=== PATIENT | female | born 1950 | race Caucasian/White ===

== ENCOUNTER 2017-03-04 14:04 | Emergency (ER) | payer MEDICARE, MEDICAID ==
[~2017-03-04] VITALS: Ht 154.9 cm; Wt 93.6 kg
[2017-03-04] MEDS ORDERED: POTA1TAB23 (14:15)
[2017-03-04] MEDS ORDERED: LORA0.5T11 (14:15)
[2017-03-04] MEDS ORDERED: DIAZ5TAB (14:15)
[2017-03-04] MEDS ORDERED: FURO40TA2 (14:15)
[2017-03-04] MEDS ORDERED: SERT-155 (14:15)
[2017-03-04] MEDS ORDERED: HUMU500S2 (14:15)
[2017-03-04] MEDS ORDERED: TRAZ1TAB14 (14:15)
[2017-03-04] MEDS ORDERED: ATOR40TA75 (14:15)
[2017-03-04] MEDS ORDERED: ROPI1TAB (14:15)
[2017-03-04] MEDS ORDERED: OMEP40CA2 (14:15)
[2017-03-04] MEDS ORDERED: SPIR25TA2 (14:15)
[2017-03-04] MEDS ORDERED: CARV25TA (14:15)
[2017-03-04] MEDS ORDERED: NORCO, ANEXSIA 5/325MG TABLET (HYDROcodone/ACETAMINOPHEN) PO ONE (14:30)
--- NOTE | 2017-03-04 16:06 | REP ---
Clinical: Trauma. Pain and swelling. Technique: AP, lateral, bilateral oblique views of the left knee. Findings: Moderate tricompartmental osteoarthritic degenerative changes are appreciated including cortical irregularity, marginal spurring and subchondral sclerosis with joint space narrowing. Lateral view demonstrates extensive prepatellar soft tissue swelling. No obvious acute fracture or dislocation. Impression: Significant prepatellar anterior soft tissue swelling. Moderate tricompartmental degenerative changes. No acute fracture or dislocation identified. Signed by Piero Mast MD 03/04/2017 03:58 P
--- NOTE | 2017-03-04 16:09 | REP ---
Clinical: Trauma. Swelling. Technique: AP, lateral, bilateral oblique views of the lumbosacral spine. Findings: Moderate to early advanced multilevel degenerative changes include anterior spurring with endplate sclerosis disc space narrowing and hypertrophic facet changes. Anterolisthesis at the L4-5 level of approximately 4 mm. No acute fracture / compression injury. Impression: Moderate to advanced multilevel degenerative changes. Anterolisthesis and L4-5. No acute fracture / compression injury. Signed by Piero Mast MD 03/04/2017 04:00 P
[2017-03-04 16:12] VITALS: BP 177/73
[2017-03-04] MEDS ORDERED: ULTR50TA8 PO (16:12)
== END 2017-03-04 16:42 | disposition home or self-care (01) ==
LOC: M ED 14:04
DX: S80.02XA Contusion of left knee, initial encounter (principal); S30.0XXA Contusion of lower back and pelvis, initial encounter; X58.XXXA Exposure to other specified factors, initial encounter; Y92.009 Unspecified place in unspecified non-institutional (private) residence as the place of occurrence of the external cause; Y93.89 Activity, other specified; Y99.8 Other external cause status; E11.9 Type 2 diabetes mellitus without complications; E66.9 Obesity, unspecified; Z88.0 Allergy status to penicillin; Z79.899 Other long term (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 therapy; Z79.4 Long term (current) use of insulin

== ENCOUNTER 2017-04-04 18:48 | Emergency (ER) | payer MEDICARE, MEDICAID ==
[~2017-04-04] VITALS: Ht 154.9 cm; Wt 93.7 kg
[~2017-04-04 18:48] MED LIST: ATOR40TA75; CARV25TA; DIAZ5TAB; FURO40TA2; HUMU500S2; LORA0.5T11; OMEP40CA2; POTA1TAB23; ROPI1TAB; SERT-155; SPIR25TA2; TRAZ1TAB14; ULTR50TA8 PO
[2017-04-04] MEDS ORDERED: KEFL500C17 PO (19:01)
[2017-04-04] MEDS ORDERED: TRAM50TA2 PO (19:01)
[2017-04-04] MEDS ORDERED: DIAZ5TAB PO (19:01)
[2017-04-04] MEDS ORDERED: NORCO, ANEXSIA 5/325MG TABLET (HYDROcodone/ACETAMINOPHEN) PO ONE (19:45)
[2017-04-04 20:34] VITALS: BP 223/84
--- NOTE | 2017-04-05 09:38 | REP ---
LEFT SHOULDER, COMPLETE: 04/04/2017. Comparison: PA chest 05/27/2016. Clinical history: Shoulder pain. Trauma. Findings: Three views show degenerative changes at the AC joint with spurring inferiorly greater from the acromion and clavicle. Superior spurs are noted as well. There is no fracture of the clavicle, scapula or humerus evident. There are glenohumeral joint degenerative changes and a probable old Hill-Sachs deformity. No subluxation or dislocation or abnormal soft-tissue calcification. Impression: 1. Degenerative changes of the AC joint greater than glenohumeral joint and suspected Hill-Sachs deformity humeral head. No acute fracture, dislocation or abnormal soft-tissue calcification. Signed by Dilip Covarrubias MD 04/05/2017 07:48 P
== END 2017-04-04 21:04 | disposition home or self-care (01) ==
LOC: M ED 18:48
DX: S40.012A Contusion of left shoulder, initial encounter (principal); W18.09XA Striking against other object with subsequent fall, initial encounter; Y92.019 Unspecified place in single-family (private) house as the place of occurrence of the external cause; Y93.9 Activity, unspecified; Y99.8 Other external cause status; I10 Essential (primary) hypertension; E78.00 Pure hypercholesterolemia, unspecified; J45.909 Unspecified asthma, uncomplicated; E11.9 Type 2 diabetes mellitus without complications; Z90.79 Acquired absence of other genital organ(s); Z90.89 Acquired absence of other organs; Z79.899 Other long term (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 therapy; Z88.0 Allergy status to penicillin

== ENCOUNTER → 2017-05-29 | Outpatient (REF) | payer MEDICARE ==
[~2017-05-29] MED LIST changes: +DIAZ5TAB PO; +KEFL500C17 PO; +TRAM50TA2 PO
== END ==
LOC: M LAB REF 18:18
PROVIDERS: ATTEND Podiatrist
DX: L03.116 Cellulitis of left lower limb (principal)

== ENCOUNTER → 2017-07-31 | Outpatient (REF) | payer MEDICARE ==
[~2017-07-31] MED LIST changes: +ASPI81TA85 PO; -ATOR40TA75; +ATOR40TA75 PO; -CARV25TA; +CARV25TA PO; -FURO40TA2; +FURO40TA2 PO; +GABA-279 PO; +GABA-282 PO; +GABA-283 PO; -HUMU500S2; +HUMU500S2 SQ; +HYDR-3719 PO; +LOSA100T5 PO; -OMEP40CA2; +OMEP40CA2 PO; -POTA1TAB23; +POTA1TAB23 PO; -ROPI1TAB; +ROPI1TAB PO; -SERT-155; +SERT-155 PO; -SPIR25TA2; +SPIR25TA2 PO; -TRAZ1TAB14; +TRAZ1TAB14 PO; +VITA100066 PO
[2017-07-31 19:28] LABS: MEAN CORPUSCULAR HEMOGLOBIN 29.3 pg (27.0-33.0); MEAN CORPUSCULAR HGB CONC 32.7 g/dl (32.0-36.5); MEAN CORPUSCULAR VOLUME 89.6 fl (80.0-96.0); PLATELET COUNT, AUTOMATED 209 10^3/uL (150-450); RED CELL DISTRIBUTION WIDTH 13.8 % (11.5-14.5); WHITE BLOOD COUNT 12.6 10^3/uL (4.0-10.0)
[2017-07-31 20:01] LABS: ERYTHROCYTE SEDIMENTATION RATE 45 mm/hr (0-30)
[2017-07-31 20:29] LABS: ALBUMIN 3.9 GM/DL (3.2-5.2); ALBUMIN/GLOBULIN RATIO 1.05 (1.00-1.93); ALKALINE PHOSPHATASE 84 U/L (45-117); ALT/SGPT 35 U/L (12-78); ANION GAP 8 MEQ/L (8-16); AST/SGOT 14 U/L (7-37); BILIRUBIN,TOTAL 0.6 MG/DL (0.2-1.0); BLOOD UREA NITROGEN 61 MG/DL (7-18); CALCIUM LEVEL 9.4 MG/DL (8.8-10.2); CARBON DIOXIDE LEVEL 24 MEQ/L (21-32); CHLORIDE LEVEL 107 MEQ/L (98-107); CREATININE FOR GFR 1.27 MG/DL (0.55-1.02); GLOMERULAR FILTRATION RATE 45.1 (>45); GLUCOSE, FASTING 236 MG/DL (80-110); POTASSIUM SERUM 4.6 MEQ/L (3.5-5.1); SODIUM LEVEL 139 MEQ/L (136-145); TOTAL PROTEIN 7.6 GM/DL (6.4-8.2)
== END ==
LOC: M SFHCWAGY 14:30
PROVIDERS: ATTEND Surgery
DX: E11.621 Type 2 diabetes mellitus with foot ulcer (principal); L97.413 Non-pressure chronic ulcer of right heel and midfoot with necrosis of muscle
CPT/HCPCS: 11042; 80053; 83036; 85027; 85652; 86140; 87070; 87077; G0463

== ENCOUNTER → 2017-08-08 | Outpatient (CLI) | payer MEDICARE ==
[~2017-08-08] MED LIST changes: -ASPI81TA85 PO; +ATOR40TA75; -ATOR40TA75 PO; +CARV25TA; -CARV25TA PO; +FURO40TA2; -FURO40TA2 PO; -GABA-279 PO; -GABA-282 PO; -GABA-283 PO; +HUMU500S2; -HUMU500S2 SQ; -HYDR-3719 PO; -LOSA100T5 PO; +OMEP40CA2; -OMEP40CA2 PO; +POTA1TAB23; -POTA1TAB23 PO; +PROHANCE 279.3MG/ML 15ML VIAL (A9576) As Ordered ONE; +PROHANCE 279.3MG/ML 5ML VIAL (A9576) As Ordered ONE; +ROPI1TAB; -ROPI1TAB PO; +SERT-155; -SERT-155 PO; +SPIR25TA2; -SPIR25TA2 PO; +TRAZ1TAB14; -TRAZ1TAB14 PO; -VITA100066 PO
--- NOTE | 2017-08-08 18:14 | REP ---
MRI RIGHT FOOT WITHOUT WITH CONTRAST: 08/08/2017. Clinical history: Soft tissue ulceration right foot, evaluate for osteomyelitis. Diabetic. Technique: Sagittal T2 STIR, coronal T1, fat suppressed T1 and T2 with axial T1 and T2 STIR sequences. Following infusion of 9 ml as of ProHance (half-dose because of GFR 45), fat suppressed T1 coronal and axial images were obtained. Findings: No prior plain films or earlier MRI study available provided. Fairly extensive subcutaneous edema about the foot plantar aspect shows subcutaneous edema as does the lateral and dorsal aspect. There is a small enchondroma in the proximal first metatarsal, distal end of the dorsal aspect first cuneiform. Small cystic areas are noted in the second cuneiform and proximal head of the second metatarsal. Appears to be a dressing along the lateral aspect of the distal head of the fifth metatarsal. There is abnormal T2 STIR signal in the distal head of that metatarsal on sagittal images slightly hyperintense standard T2 fat suppressed T1 sequences with enhancement on the gadolinium sequence there. This is suspicious for developing osteomyelitis. Underlying edema in the soft tissues noted. Some bursal enhancement dorsal to the fifth MTP joint noted. No other abnormal enhancement and the metatarsals. There is some motion blur on images limit evaluation of the proximal phalanx of the fifth toe. Tarsal bones show no marrow enhancement or signal abnormality. Talus and calcaneus show no acute marrow abnormalities a few small cysts or enchondromas. There is also another cyst or enchondroma in the navicular. Impression: 1. Diffuse soft tissue swelling which may reflect some edema from cellulitis but there is ulceration of the soft tissues lateral to the distal head of the fifth metatarsal and some abnormal signal and enhancement within that distal fifth metatarsal head. I am suspicious for osteomyelitis. Correlation with plain X-rays suggested. I do not have plain films for comparison. Exam somewhat challenging because of some motion artifact in the toes. In fact, the fifth digit is very difficult to evaluate and I cannot, comment with great certainty. 2. Multiple small cystic areas in or enchondromas in the tarsal bones and proximal metatarsals of the first and second digits and of the talus and calcaneus as well. Signed by Dilip Covarrubias MD 08/08/2017 07:10 P
--- NOTE | 2017-08-08 18:40 | REP ---
Right lower extremity arterial Doppler ultrasound: 08/08/2017. Clinical history: Right lower extremity arterial insufficiency. Foot ulceration. Type 2 diabetes. Standard duplex techniques were utilized to evaluate the right lower extremity. Right brachial artery: 160 cm/s (left brachial artery 175 cm/s)Dorsalis pedis: 100 cm/s IP NETWORK ARCHITECT 120 cm/s YAHIR: 0.7 Right lower extremity: RIGHT PK SYSTOLIC VELOCITY PHASICITY MILL MANAGER 150 cm/s triphasic Profunda 163 cm/s triphasic SFA proximal 73.6 cm/s triphasic SFA mid 103.5 cm/s triphasic SFA distal 138.8 cm/s triphasic Popliteal 119 cm/s triphasic SARITHA proximal 117.9 cm/s triphasic Tibial peroneal trunk 133 cm/s triphasic IP NETWORK ARCHITECT proximal 58.2 cm/s triphasic IP NETWORK ARCHITECT distal 36.9 cm/s monophasic SARITHA distal 52.5 cm/s monophasic The YAHIR is low at 0.7. Plaque is noted scattered throughout the leg especially at the tibial peroneal trunk. The distal SARITHA and IP NETWORK ARCHITECT show low velocity and monophasic waveforms. This is consistent with significant disease in the calf from knee to ankle. Signed by Dilip Covarrubias MD 08/08/2017 07:15 P
== END ==
LOC: M RAD 13:02
PROVIDERS: ATTEND Surgery
DX: E11.621 Type 2 diabetes mellitus with foot ulcer (principal); L97.413 Non-pressure chronic ulcer of right heel and midfoot with necrosis of muscle; R60.0 Localized edema; M85.671 Other cyst of bone, right ankle and foot; M86.171 Other acute osteomyelitis, right ankle and foot; M86.671 Other chronic osteomyelitis, right ankle and foot
CPT/HCPCS: 73720; 88304; 93923; A9576

== ENCOUNTER → 2017-08-13 | Outpatient (CLI) | payer MEDICARE ==
[~2017-08-13] MED LIST changes: -PROHANCE 279.3MG/ML 15ML VIAL (A9576) As Ordered ONE; -PROHANCE 279.3MG/ML 5ML VIAL (A9576) As Ordered ONE
--- NOTE | 2017-08-13 14:29 | REP ---
RENAL NUCLEAR SCAN WITH FLOW AND FUNCTION: Following the intravenous administration of 8.8 mCi of technetium-99m MAG 3, immediate flow images are obtained in the posterior projections showing fairly symmetrical perfusion bilaterally. Delayed renal function images are performed every minute for a period of 30 minutes in the posterior projection. Kidneys are normal in contour and size. There is bilateral cortical uptake and excretion. There is mild dilatation of the right renal pelvis. This decreases on delayed postvoid images. Split function is 43.3% on the left and 56.7% on the right. Time to peak is delayed bilaterally, 8 minutes on the left and 9 minutes on the right. T1/2 on the left is 26.5 minutes and on the right could not be calculated as it is an excess of 30 minutes. Renal function curves are moderately shallow in their downward slopes in a symmetrical fashion. There is mild postvoid residual in the urinary bladder after voiding. IMPRESSION: Moderately diminished renal function bilaterally. There does not appear to be significant urinary tract obstruction. Signed by Milelr Cook MD 08/14/2017 09:14 A
--- NOTE | 2017-08-13 15:29 | REP ---
RENAL AND BLADDER ULTRASOUND: Real-time sonographic evaluation of the kidneys performed and demonstrates both kidneys to be normal in size and echotexture, the right kidney measuring 11.4 x 5.7 x 4.5 cm and the left kidney 11.3 x 5.6 x 7.4 cm. There is no hydronephrosis, renal mass or nephrolithiasis. The urinary bladder is minimally distended with no gross abnormality. IMPRESSION: Essentially negative renal ultrasound. Signed by Miller Cook MD 08/14/2017 09:15 A
== END ==
LOC: M RAD 12:23
PROVIDERS: ATTEND Internal Medicine Nephrology
DX: N18.3 Chronic kidney disease, stage 3 (moderate) (principal); I15.0 Renovascular hypertension
CPT/HCPCS: 76775; 78707; A9562

== ENCOUNTER 2017-08-21 16:01 | Inpatient (IN) | payer MEDICARE ==
[2017-08-21 17:13] LABS: BEDSIDE GLUCOSE 47 MG/DL (80-115)
[2017-08-21 17:36] LABS: BEDSIDE GLUCOSE 70 MG/DL (80-115)
[2017-08-21] MEDS: NS 1,000 ML IV ×2 (17:36→20:00)
[2017-08-21 17:40] LABS: BASO % 0.3 % (0.0-1.0); EOS # 0.1 10^3/uL (0.0-0.50); EOS % 1.1 % (0.0-3.0); HEMATOCRIT 30.3 % (36.0-47.0); HEMOGLOBIN 10.1 g/dl (12.0-16.0); IMMATURE GRANULOCYTE # 0.1 10^3/uL (0-0); IMMATURE GRANULOCYTE % 0.9 % (0-0); LYMPH # 2.7 10^3/uL (1.5-4.5); LYMPH % 21.2 % (24.0-44.0); MEAN CORPUSCULAR HEMOGLOBIN 29.3 pg (27.0-33.0); MEAN CORPUSCULAR HGB CONC 33.3 g/dl (32.0-36.5); MEAN CORPUSCULAR VOLUME 87.8 fl (80.0-96.0); MONO # 0.8 10^3/uL (0.0-0.8); MONO % 6.6 % (0.0-5.0); NEUTROPHILS # 8.9 10^3/uL (1.8-7.7); NEUTROPHILS % 69.9 % (36.0-66.0); PLATELET COUNT, AUTOMATED 222 10^3/uL (150-450); RED BLOOD COUNT 3.45 10^6/uL (4.00-5.40); RED CELL DISTRIBUTION WIDTH 13.2 % (11.5-14.5); WHITE BLOOD COUNT 12.8 10^3/uL (4.0-10.0)
[2017-08-21 18:11] LABS: ALBUMIN 3.3 GM/DL (3.2-5.2); ALBUMIN/GLOBULIN RATIO 0.89 (1.00-1.93); ALKALINE PHOSPHATASE 86 U/L (45-117); ALT/SGPT 29 U/L (12-78); ANION GAP 7 MEQ/L (8-16); AST/SGOT 17 U/L (7-37); BILIRUBIN,DIRECT 0.1 MG/DL (0.0-0.2); BILIRUBIN,TOTAL 0.4 MG/DL (0.2-1.0); BLOOD UREA NITROGEN 47 MG/DL (7-18); C REACTIVE PROTEIN QUANTITATIV 1.43 MG/DL (0.00-0.30); CALCIUM LEVEL 8.9 MG/DL (8.8-10.2); CARBON DIOXIDE LEVEL 29 MEQ/L (21-32); CHLORIDE LEVEL 110 MEQ/L (98-107); ERYTHROCYTE SEDIMENTATION RATE > 140 mm/hr (0-30); GLOMERULAR FILTRATION RATE 48.1 (>45); GLUCOSE, FASTING 46 MG/DL (80-110); POTASSIUM SERUM 4.2 MEQ/L (3.5-5.1); SODIUM LEVEL 146 MEQ/L (136-145)
[2017-08-21] MEDS ORDERED: MEROPENEM INJ 2 GM in NS 100 ML IV (20:00)
[2017-08-21] MEDS ORDERED: ACETAMINOPHEN TAB 650MG DOSE (2X325MG) PO (20:00)
[2017-08-21] MEDS ORDERED: ONDANSETRON 4MG/2ML VIAL (J2405) IV (20:00)
[2017-08-21 20:18] LABS: APPEARANCE, URINE CLEAR (CLEAR); BACTERIA, URINE AUTO NEGATIVE (NEGATIVE); BILIRUBIN, URINE AUTO NEGATIVE (NEGATIVE); BLOOD, URINE BLOOD NEGATIVE (NEGATIVE); COLOR, URINE STRAW (YELLOW); GLUCOSE, URINE (UA) AUTO NEGATIVE (NEGATIVE); KETONE, URINE AUTO NEGATIVE (NEGATIVE); LEUKOCYTE ESTERASE, URINE AUTO NEGATIVE (NEGATIVE); MUCUS, URINE SMALL (NEGATIVE); NITRITE, URINE AUTO NEGATIVE (NEGATIVE); PROTEIN, URINE AUTO 1+ mg/dL (NEGATIVE); RBC, URINE AUTO 1 /HPF (0-3); SPECIFIC GRAVITY URINE AUTO 1.008 (1.002-1.035); SQUAMOUS EPITHELIAL CELL UR AU 0 /HPF (0-6); UROBILINOGEN, URINE AUTO 0.2 mg/dL (0.0-2.0); WBC, URINE AUTO 0 /HPF (0-3)
[2017-08-21] MEDS: GABAPENTIN 300 MG CAP PO (20:47)
[2017-08-21] MEDS: GABAPENTIN 100 MG CAP PO (20:48)
[2017-08-21] MEDS: CARVedilol 12.5 MG TAB PO (20:48)
[2017-08-21] MEDS ORDERED: ALBUTEROL SULFATE 2.5 MG/0.5 ML INH NEB SOLN INH (21:00)
[2017-08-21] MEDS: ASPIRIN 81 MG ENTERIC TAB PO (22:16)
[2017-08-21] MEDS: VANCOMYCIN HCL 1,000 MG, VIAL MATE ADAPTER 1 EACH in D5W 250 ML IV (22:17)
[2017-08-21] MEDS: SENOKOT S TAB PO (22:17)
[2017-08-21] MEDS: SERTRALINE HCL 50 MG TAB PO (22:17)
[2017-08-21] MEDS: rOPINIRole 1MG TAB PO (22:17)
[2017-08-21] MEDS: NORCO, ANEXSIA 5/325MG TABLET (HYDROcodone/ACETAMINOPHEN) PO (23:21)
[2017-08-21] MEDS: MEROPENEM INJ 1 GM in APPROPRIATE DILUENT 1 EA IV (23:22)
[2017-08-22] MEDS: VANCOMYCIN HCL 750 MG, VIAL MATE ADAPTER 1 EACH in D5W 250 ML IV (00:19)
[2017-08-22 00:36] LABS: BEDSIDE GLUCOSE 156 MG/DL (80-115)
[2017-08-22 04:20] LABS: BEDSIDE GLUCOSE 145 MG/DL (80-115)
[2017-08-22] MEDS: MEROPENEM INJ 1 GM in APPROPRIATE DILUENT 1 EA IV ×3 (05:16→22:27)
[2017-08-22] MEDS: NORCO, ANEXSIA 5/325MG TABLET (HYDROcodone/ACETAMINOPHEN) PO ×3 (05:19→22:29)
[2017-08-22 06:04] LABS: HEMATOCRIT 26.6 % (36.0-47.0); HEMOGLOBIN 8.8 g/dl (12.0-16.0); MEAN CORPUSCULAR HEMOGLOBIN 28.9 pg (27.0-33.0); MEAN CORPUSCULAR HGB CONC 33.1 g/dl (32.0-36.5); MEAN CORPUSCULAR VOLUME 87.5 fl (80.0-96.0); PLATELET COUNT, AUTOMATED 179 10^3/uL (150-450); RED BLOOD COUNT 3.04 10^6/uL (4.00-5.40); RED CELL DISTRIBUTION WIDTH 13.2 % (11.5-14.5); WHITE BLOOD COUNT 9.3 10^3/uL (4.0-10.0)
[2017-08-22 06:24] LABS: ANION GAP 7 MEQ/L (8-16); BLOOD UREA NITROGEN 37 MG/DL (7-18); C REACTIVE PROTEIN QUANTITATIV 0.95 MG/DL (0.00-0.30); CALCIUM LEVEL 8.2 MG/DL (8.8-10.2); CARBON DIOXIDE LEVEL 28 MEQ/L (21-32); CHLORIDE LEVEL 107 MEQ/L (98-107); CREATININE FOR GFR 1.01 MG/DL (0.55-1.02); GLOMERULAR FILTRATION RATE 58.7 (>45); GLUCOSE, FASTING 163 MG/DL (80-110); POTASSIUM SERUM 4.6 MEQ/L (3.5-5.1); SODIUM LEVEL 142 MEQ/L (136-145)
[2017-08-22 06:33] LABS: ESTIMATED AVERAGE GLUCOSE 220 MG/DL (60-110); HEMOGLOBIN A1c 9.3 %
[2017-08-22] MEDS: HUMULIN R U-500 KWIKPEN 500UNITS/ML 3ML SYRINGE (J1815 PER 5UNITS) SQ ×3 (07:30→17:10)
[2017-08-22 08:19] LABS: BEDSIDE GLUCOSE 229 MG/DL (80-115)
[2017-08-22] MEDS: ENOXAPARIN 40 MG/0.4 ML SYRINGE (J1650) SC (09:43)
[2017-08-22] MEDS: OMEPRAZOLE 20 MG CAP PO (09:43)
[2017-08-22] MEDS: GABAPENTIN 300 MG CAP PO ×3 (09:43→20:03)
[2017-08-22] MEDS: CARVedilol 12.5 MG TAB PO ×2 (09:44→20:03)
[2017-08-22] MEDS: SENOKOT S TAB PO ×2 (09:45→20:03)
[2017-08-22] MEDS: SERTRALINE HCL 50 MG TAB PO ×2 (09:45→20:02)
[2017-08-22] MEDS: FUROSEMIDE 40 MG TAB PO ×2 (09:45→17:11)
[2017-08-22] MEDS: ATORVASTATIN 20 MG TAB PO (09:45)
[2017-08-22] MEDS: GABAPENTIN 100 MG CAP PO ×3 (09:45→20:03)
[2017-08-22] MEDS: VANCOMYCIN HCL 1,000 MG, VIAL MATE ADAPTER 1 EACH in D5W 250 ML IV ×2 (09:45→20:02)
[2017-08-22] MEDS: SANTYL OINT 30GM TOP (11:06)
[2017-08-22 11:53] LABS: BEDSIDE GLUCOSE 343 MG/DL (80-115)
[2017-08-22] MEDS: DIAPER RELIEF PASTE (DESITIN) 60GM TOP (12:17)
[2017-08-22] MEDS ORDERED: ISOVUE-300 61% 50ML VIAL (Q9967) As Ordered (12:36)
[2017-08-22] MEDS ORDERED: HEPARIN 1,000 UNITS/ML 10ML VIAL (FOR RADIOLOGY& DIALYSIS ONLY) As Ordered (12:36)
[2017-08-22] MEDS ORDERED: fentaNYL 100 MCG/2 ML INJECTION (J3010) As Ordered (12:37)
[2017-08-22] MEDS ORDERED: MIDAZOLAM INJ 2 MG/2 ML VIAL (J2250) As Ordered (12:37)
[2017-08-22] MEDS: LOSARTAN 50 MG TAB PO (15:36)
[2017-08-22 16:11] LABS: BEDSIDE GLUCOSE 236 MG/DL (80-115)
[2017-08-22] MEDS: rOPINIRole 1MG TAB PO (17:11)
[2017-08-22] MEDS: ASPIRIN 81 MG ENTERIC TAB PO (20:02)
[2017-08-22] MEDS: SPIRONOLACTONE 25 MG TAB PO (20:02)
[2017-08-22 20:30] LABS: BEDSIDE GLUCOSE 169 MG/DL (80-115)
[2017-08-23 00:16] LABS: BEDSIDE GLUCOSE 77 MG/DL (80-115)
[2017-08-23 05:09] LABS: HEMATOCRIT 26.3 % (36.0-47.0); HEMOGLOBIN 8.6 g/dl (12.0-16.0); MEAN CORPUSCULAR HEMOGLOBIN 29.6 pg (27.0-33.0); MEAN CORPUSCULAR HGB CONC 32.7 g/dl (32.0-36.5); MEAN CORPUSCULAR VOLUME 90.4 fl (80.0-96.0); PLATELET COUNT, AUTOMATED 201 10^3/uL (150-450); RED BLOOD COUNT 2.91 10^6/uL (4.00-5.40); RED CELL DISTRIBUTION WIDTH 13.2 % (11.5-14.5); WHITE BLOOD COUNT 9.4 10^3/uL (4.0-10.0)
[2017-08-23] MEDS: MEROPENEM INJ 1 GM in APPROPRIATE DILUENT 1 EA IV ×3 (05:11→22:38)
[2017-08-23 05:14] LABS: BEDSIDE GLUCOSE 71 MG/DL (80-115)
[2017-08-23 05:22] LABS: ANION GAP 4 MEQ/L (8-16); BLOOD UREA NITROGEN 39 MG/DL (7-18); C REACTIVE PROTEIN QUANTITATIV 0.75 MG/DL (0.00-0.30); CALCIUM LEVEL 8.8 MG/DL (8.8-10.2); CARBON DIOXIDE LEVEL 31 MEQ/L (21-32); CHLORIDE LEVEL 106 MEQ/L (98-107); CREATININE FOR GFR 1.26 MG/DL (0.55-1.02); GLOMERULAR FILTRATION RATE 45.5 (>45); GLUCOSE, FASTING 63 MG/DL (80-110); POTASSIUM SERUM 4.5 MEQ/L (3.5-5.1); SODIUM LEVEL 141 MEQ/L (136-145)
[2017-08-23] MEDS: HUMULIN R U-500 KWIKPEN 500UNITS/ML 3ML SYRINGE (J1815 PER 5UNITS) SQ ×2 (07:46→12:13)
[2017-08-23 08:03] LABS: VANCOMYCIN LEVEL TROUGH 21.6 UG/ML (10.0-20.0)
[2017-08-23 08:41] LABS: BEDSIDE GLUCOSE 206 MG/DL (80-115)
[2017-08-23] MEDS: OMEPRAZOLE 20 MG CAP PO (09:01)
[2017-08-23] MEDS: ENOXAPARIN 40 MG/0.4 ML SYRINGE (J1650) SC (09:01)
[2017-08-23] MEDS: ATORVASTATIN 20 MG TAB PO (09:01)
[2017-08-23] MEDS: SERTRALINE HCL 50 MG TAB PO ×2 (09:02→21:11)
[2017-08-23] MEDS: FUROSEMIDE 40 MG TAB PO (09:02)
[2017-08-23] MEDS: LOSARTAN 50 MG TAB PO (09:02)
[2017-08-23] MEDS: SENOKOT S TAB PO ×2 (09:02→21:11)
[2017-08-23] MEDS: GABAPENTIN 300 MG CAP PO ×3 (09:03→21:11)
[2017-08-23] MEDS: VANCOMYCIN HCL 1,000 MG, VIAL MATE ADAPTER 1 EACH in D5W 250 ML IV (09:03)
[2017-08-23] MEDS: GABAPENTIN 100 MG CAP PO ×3 (09:03→21:11)
[2017-08-23] MEDS: CARVedilol 12.5 MG TAB PO ×2 (09:03→21:11)
[2017-08-23] MEDS: SANTYL OINT 30GM TOP (09:04)
[2017-08-23] MEDS: DIAPER RELIEF PASTE (DESITIN) 60GM TOP (09:04)
[2017-08-23] MEDS ORDERED: GLUCOSE 4 GM CHEW TABLET PO (17:00)
[2017-08-23] MEDS ORDERED: GLUCAGON FOR INJ 1 MG VIAL (J1610) SC (17:00)
[2017-08-23] MEDS ORDERED: DEXTROSE 50% 50 ML SYRINGE IV (17:00)
[2017-08-23] MEDS: HumaLOG INSULIN (NovoLOG) PER UNIT SC ×2 (17:12→21:00)
[2017-08-23] MEDS: LEVEMIR (INSULIN DETEMIR) 1 UNITS/0.01ML SC (17:27)
[2017-08-23] MEDS ORDERED: HUMULIN R U-500 KWIKPEN 500UNITS/ML 3ML SYRINGE (J1815 PER 5UNITS) SC (17:30)
[2017-08-23] MEDS: rOPINIRole 1MG TAB PO (17:34)
[2017-08-23] MEDS: ASPIRIN 81 MG ENTERIC TAB PO (21:11)
[2017-08-23] MEDS: VANCOMYCIN HCL 750 MG, VIAL MATE ADAPTER 1 EACH in D5W 250 ML IV (21:11)
[2017-08-23 21:55] LABS: BEDSIDE GLUCOSE 86 MG/DL (80-115)
[2017-08-23 21:55] LABS: BEDSIDE GLUCOSE 247 MG/DL (80-115)
[2017-08-23 21:55] LABS: BEDSIDE GLUCOSE 123 MG/DL (80-115)
[2017-08-23] MEDS: NORCO, ANEXSIA 5/325MG TABLET (HYDROcodone/ACETAMINOPHEN) PO (22:44)
[2017-08-23] MEDS: AZELASTINE 137MCG NASAL SPY 30 ML (ASTELIN) (23:39)
[2017-08-24 03:24] LABS: BEDSIDE GLUCOSE 218 MG/DL (80-115)
[2017-08-24 04:57] LABS: HEMOGLOBIN 8.5 g/dl (12.0-16.0); MEAN CORPUSCULAR HEMOGLOBIN 29.3 pg (27.0-33.0); MEAN CORPUSCULAR HGB CONC 32.7 g/dl (32.0-36.5); MEAN CORPUSCULAR VOLUME 89.7 fl (80.0-96.0); PLATELET COUNT, AUTOMATED 189 10^3/uL (150-450); RED CELL DISTRIBUTION WIDTH 13.2 % (11.5-14.5); WHITE BLOOD COUNT 9.7 10^3/uL (4.0-10.0)
[2017-08-24 05:16] LABS: ANION GAP 5 MEQ/L (8-16); BLOOD UREA NITROGEN 36 MG/DL (7-18); C REACTIVE PROTEIN QUANTITATIV 1.17 MG/DL (0.00-0.30); CALCIUM LEVEL 8.4 MG/DL (8.8-10.2); CARBON DIOXIDE LEVEL 29 MEQ/L (21-32); CHLORIDE LEVEL 105 MEQ/L (98-107); CREATININE FOR GFR 1.18 MG/DL (0.55-1.02); GLOMERULAR FILTRATION RATE 49.1 (>45); GLUCOSE, FASTING 224 MG/DL (80-110); POTASSIUM SERUM 4.9 MEQ/L (3.5-5.1); SODIUM LEVEL 139 MEQ/L (136-145)
[2017-08-24] MEDS: MEROPENEM INJ 1 GM in APPROPRIATE DILUENT 1 EA IV (06:07)
[2017-08-24] MEDS: HumaLOG INSULIN (NovoLOG) PER UNIT SC ×4 (07:29→20:28)
[2017-08-24] MEDS: ATORVASTATIN 20 MG TAB PO (08:08)
[2017-08-24] MEDS: SENOKOT S TAB PO ×2 (08:08→20:30)
[2017-08-24] MEDS: CARVedilol 12.5 MG TAB PO ×2 (08:08→20:30)
[2017-08-24] MEDS: GABAPENTIN 100 MG CAP PO ×3 (08:08→20:30)
[2017-08-24] MEDS: GABAPENTIN 300 MG CAP PO ×3 (08:09→20:30)
[2017-08-24] MEDS: SERTRALINE HCL 50 MG TAB PO ×2 (08:09→20:30)
[2017-08-24] MEDS: OMEPRAZOLE 20 MG CAP PO (08:09)
[2017-08-24] MEDS: LOSARTAN 50 MG TAB PO (08:09)
[2017-08-24] MEDS: ENOXAPARIN 40 MG/0.4 ML SYRINGE (J1650) SC (08:10)
[2017-08-24] MEDS: VANCOMYCIN HCL 750 MG, VIAL MATE ADAPTER 1 EACH in D5W 250 ML IV (08:10)
[2017-08-24] MEDS: AZELASTINE 137MCG NASAL SPY 30 ML (ASTELIN) ×2 (08:10→20:29)
[2017-08-24] MEDS: DIAPER RELIEF PASTE (DESITIN) 60GM TOP (08:11)
[2017-08-24] MEDS: SANTYL OINT 30GM TOP (08:11)
[2017-08-24 09:58] LABS: RETIC HEMOGLOBIN EQUIVALENT 32.6 pg (24-36); RETICULOCYTE # 78.4 10^9/L (17-77); RETICULOCYTE % 2.8 % (0.5-1.5)
[2017-08-24 10:21] LABS: FERRITIN 245 NG/ML (8-252); IRON (FE) 37 UG/DL (50-170); PERCENT SATURATION 14.9 % (13.2-45.0); TOTAL IRON BINDING CAPACITY 248 UG/DL (250-450)
[2017-08-24 11:51] LABS: IMMEDIATE SPIN CROSSMATCH 1 1
[2017-08-24] MEDS: LEVEMIR (INSULIN DETEMIR) 1 UNITS/0.01ML SC ×2 (12:00→20:29)
[2017-08-24] MEDS: amLODIPine 10 MG TAB PO (13:49)
[2017-08-24 16:10] LABS: BEDSIDE GLUCOSE 302 MG/DL (80-115)
[2017-08-24] MEDS: FUROSEMIDE 40 MG TAB PO (17:00)
[2017-08-24 17:10] LABS: BEDSIDE GLUCOSE 347 MG/DL (80-115)
[2017-08-24] MEDS: rOPINIRole 1MG TAB PO (17:12)
[2017-08-24] MEDS: cloNIDine 0.1 MG TAB PO (17:12)
[2017-08-24] MEDS: NORCO, ANEXSIA 5/325MG TABLET (HYDROcodone/ACETAMINOPHEN) PO (17:13)
[2017-08-24] MEDS: SPIRONOLACTONE 25 MG TAB PO (20:30)
[2017-08-24] MEDS: ASPIRIN 81 MG ENTERIC TAB PO (20:30)
[2017-08-24 20:32] LABS: BEDSIDE GLUCOSE 345 MG/DL (80-115)
[2017-08-25] MEDS: cloNIDine 0.1 MG TAB PO ×3 (03:38→20:10)
[2017-08-25 04:15] LABS: HEMATOCRIT 27.9 % (36.0-47.0); HEMOGLOBIN 9.2 g/dl (12.0-16.0); MEAN CORPUSCULAR HEMOGLOBIN 28.8 pg (27.0-33.0); MEAN CORPUSCULAR VOLUME 87.5 fl (80.0-96.0); PLATELET COUNT, AUTOMATED 191 10^3/uL (150-450); RED BLOOD COUNT 3.19 10^6/uL (4.00-5.40); RED CELL DISTRIBUTION WIDTH 13.6 % (11.5-14.5); WHITE BLOOD COUNT 9.2 10^3/uL (4.0-10.0)
[2017-08-25 04:32] LABS: ANION GAP 5 MEQ/L (8-16); BLOOD UREA NITROGEN 36 MG/DL (7-18); C REACTIVE PROTEIN QUANTITATIV 1.23 MG/DL (0.00-0.30); CALCIUM LEVEL 8.2 MG/DL (8.8-10.2); CARBON DIOXIDE LEVEL 31 MEQ/L (21-32); CHLORIDE LEVEL 104 MEQ/L (98-107); CREATININE FOR GFR 1.19 MG/DL (0.55-1.02); GLOMERULAR FILTRATION RATE 48.6 (>45); GLUCOSE, FASTING 317 MG/DL (80-110); POTASSIUM SERUM 4.8 MEQ/L (3.5-5.1); SODIUM LEVEL 140 MEQ/L (136-145)
[2017-08-25] MEDS: ENOXAPARIN 40 MG/0.4 ML SYRINGE (J1650) SC (08:17)
[2017-08-25] MEDS: HumaLOG INSULIN (NovoLOG) PER UNIT SC ×4 (08:18→20:12)
[2017-08-25] MEDS: LEVEMIR (INSULIN DETEMIR) 1 UNITS/0.01ML SC ×2 (08:18→20:09)
[2017-08-25] MEDS: AZELASTINE 137MCG NASAL SPY 30 ML (ASTELIN) ×2 (08:18→20:12)
[2017-08-25] MEDS: LOSARTAN 50 MG TAB PO (08:19)
[2017-08-25] MEDS: ATORVASTATIN 20 MG TAB PO (08:19)
[2017-08-25] MEDS: GABAPENTIN 300 MG CAP PO ×3 (08:20→20:11)
[2017-08-25] MEDS: CARVedilol 12.5 MG TAB PO ×2 (08:20→20:10)
[2017-08-25] MEDS: OMEPRAZOLE 20 MG CAP PO (08:20)
[2017-08-25] MEDS: DIAPER RELIEF PASTE (DESITIN) 60GM TOP (08:21)
[2017-08-25] MEDS: amLODIPine 10 MG TAB PO (08:21)
[2017-08-25] MEDS: GABAPENTIN 100 MG CAP PO ×3 (08:21→20:10)
[2017-08-25] MEDS: SENOKOT S TAB PO ×2 (08:21→20:10)
[2017-08-25] MEDS: SERTRALINE HCL 50 MG TAB PO ×2 (08:21→20:11)
[2017-08-25] MEDS: SANTYL OINT 30GM TOP (08:22)
[2017-08-25] MEDS: FUROSEMIDE 40 MG TAB PO ×2 (09:59→17:13)
[2017-08-25 11:53] LABS: BEDSIDE GLUCOSE 296 MG/DL (80-115)
[2017-08-25 17:12] LABS: BEDSIDE GLUCOSE 348 MG/DL (80-115)
[2017-08-25] MEDS: rOPINIRole 1MG TAB PO (17:12)
[2017-08-25 20:06] LABS: BEDSIDE GLUCOSE 349 MG/DL (80-115)
[2017-08-25] MEDS: ASPIRIN 81 MG ENTERIC TAB PO (20:09)
[2017-08-25] MEDS: SPIRONOLACTONE 25 MG TAB PO (20:11)
[2017-08-26 05:11] LABS: HEMATOCRIT 25.9 % (36.0-47.0); HEMOGLOBIN 8.8 g/dl (12.0-16.0); MEAN CORPUSCULAR HEMOGLOBIN 29.4 pg (27.0-33.0); MEAN CORPUSCULAR VOLUME 86.6 fl (80.0-96.0); PLATELET COUNT, AUTOMATED 192 10^3/uL (150-450); RED BLOOD COUNT 2.99 10^6/uL (4.00-5.40); RED CELL DISTRIBUTION WIDTH 13.2 % (11.5-14.5); WHITE BLOOD COUNT 9.2 10^3/uL (4.0-10.0)
[2017-08-26 05:26] LABS: ANION GAP 7 MEQ/L (8-16); BLOOD UREA NITROGEN 33 MG/DL (7-18); CARBON DIOXIDE LEVEL 29 MEQ/L (21-32); CHLORIDE LEVEL 102 MEQ/L (98-107); CREATININE FOR GFR 1.14 MG/DL (0.55-1.02); GLOMERULAR FILTRATION RATE 51.1 (>45); GLUCOSE, FASTING 303 MG/DL (80-110); POTASSIUM SERUM 4.1 MEQ/L (3.5-5.1); SODIUM LEVEL 138 MEQ/L (136-145)
[2017-08-26 05:27] LABS: C REACTIVE PROTEIN QUANTITATIV 1.16 MG/DL (0.00-0.30); CALCIUM LEVEL 8.4 MG/DL (8.8-10.2); MAGNESIUM LEVEL 1.9 MG/DL (1.8-2.4)
[2017-08-26] MEDS: LEVEMIR (INSULIN DETEMIR) 1 UNITS/0.01ML SC ×2 (08:47→20:21)
[2017-08-26] MEDS: ENOXAPARIN 40 MG/0.4 ML SYRINGE (J1650) SC (08:48)
[2017-08-26] MEDS: HumaLOG INSULIN (NovoLOG) PER UNIT SC ×4 (08:48→21:00)
[2017-08-26] MEDS: LOSARTAN 50 MG TAB PO (08:48)
[2017-08-26] MEDS: OMEPRAZOLE 20 MG CAP PO (08:48)
[2017-08-26] MEDS: GABAPENTIN 300 MG CAP PO ×3 (08:49→20:18)
[2017-08-26] MEDS: ATORVASTATIN 20 MG TAB PO (08:49)
[2017-08-26] MEDS: CARVedilol 12.5 MG TAB PO ×2 (08:49→20:19)
[2017-08-26] MEDS: SERTRALINE HCL 50 MG TAB PO ×2 (08:50→20:19)
[2017-08-26] MEDS: FUROSEMIDE 40 MG TAB PO ×2 (08:50→16:40)
[2017-08-26] MEDS: cloNIDine 0.1 MG TAB PO ×2 (08:50→20:18)
[2017-08-26] MEDS: SENOKOT S TAB PO ×2 (08:50→20:19)
[2017-08-26] MEDS: GABAPENTIN 100 MG CAP PO ×3 (08:50→20:19)
[2017-08-26] MEDS: AZELASTINE 137MCG NASAL SPY 30 ML (ASTELIN) ×2 (08:51→21:00)
[2017-08-26] MEDS: amLODIPine 10 MG TAB PO (08:51)
[2017-08-26] MEDS: SANTYL OINT 30GM TOP (12:30)
[2017-08-26] MEDS: DIAPER RELIEF PASTE (DESITIN) 60GM TOP (12:30)
[2017-08-26 12:51] LABS: BEDSIDE GLUCOSE 305 MG/DL (80-115)
[2017-08-26 12:51] LABS: BEDSIDE GLUCOSE 310 MG/DL (80-115)
[2017-08-26 17:20] LABS: BEDSIDE GLUCOSE 393 MG/DL (80-115)
[2017-08-26] MEDS: rOPINIRole 1MG TAB PO (17:46)
[2017-08-26] MEDS: ASPIRIN 81 MG ENTERIC TAB PO (20:19)
[2017-08-26] MEDS: SPIRONOLACTONE 25 MG TAB PO (20:19)
[2017-08-26] MEDS: traZODone 50 MG TAB PO (20:20)
[2017-08-26] MEDS: NORCO, ANEXSIA 5/325MG TABLET (HYDROcodone/ACETAMINOPHEN) PO (20:20)
[2017-08-26 21:22] LABS: BEDSIDE GLUCOSE 270 MG/DL (80-115)
[2017-08-27 06:58] LABS: HEMOGLOBIN 8.7 g/dl (12.0-16.0); MEAN CORPUSCULAR HEMOGLOBIN 29.2 pg (27.0-33.0); MEAN CORPUSCULAR HGB CONC 33.5 g/dl (32.0-36.5); MEAN CORPUSCULAR VOLUME 87.2 fl (80.0-96.0); PLATELET COUNT, AUTOMATED 183 10^3/uL (150-450); RED BLOOD COUNT 2.98 10^6/uL (4.00-5.40); RED CELL DISTRIBUTION WIDTH 13.2 % (11.5-14.5)
[2017-08-27 07:18] LABS: ANION GAP 5 MEQ/L (8-16); BLOOD UREA NITROGEN 34 MG/DL (7-18); C REACTIVE PROTEIN QUANTITATIV 1.01 MG/DL (0.00-0.30); CALCIUM LEVEL 8.7 MG/DL (8.8-10.2); CARBON DIOXIDE LEVEL 30 MEQ/L (21-32); CHLORIDE LEVEL 103 MEQ/L (98-107); CREATININE FOR GFR 1.07 MG/DL (0.55-1.02); GLUCOSE, FASTING 232 MG/DL (80-110); MAGNESIUM LEVEL 1.9 MG/DL (1.8-2.4); POTASSIUM SERUM 4.2 MEQ/L (3.5-5.1); SODIUM LEVEL 138 MEQ/L (136-145)
[2017-08-27 08:06] LABS: TRANSFERRIN 192 mg/dL (200-370)
[2017-08-27] MEDS: ATORVASTATIN 20 MG TAB PO (08:26)
[2017-08-27] MEDS: HumaLOG INSULIN (NovoLOG) PER UNIT SC ×4 (08:27→20:21)
[2017-08-27] MEDS: CARVedilol 12.5 MG TAB PO ×2 (08:28→20:23)
[2017-08-27] MEDS: LOSARTAN 50 MG TAB PO (08:29)
[2017-08-27] MEDS: GABAPENTIN 100 MG CAP PO ×3 (08:29→20:22)
[2017-08-27] MEDS: SENOKOT S TAB PO ×2 (08:29→20:23)
[2017-08-27] MEDS: FUROSEMIDE 40 MG TAB PO ×2 (08:29→17:19)
[2017-08-27] MEDS: GABAPENTIN 300 MG CAP PO ×3 (08:29→20:23)
[2017-08-27] MEDS: OMEPRAZOLE 20 MG CAP PO (08:30)
[2017-08-27] MEDS: LEVEMIR (INSULIN DETEMIR) 1 UNITS/0.01ML SC ×2 (08:30→20:21)
[2017-08-27] MEDS: amLODIPine 10 MG TAB PO (08:30)
[2017-08-27] MEDS: ENOXAPARIN 40 MG/0.4 ML SYRINGE (J1650) SC (08:30)
[2017-08-27] MEDS: cloNIDine 0.1 MG TAB PO ×2 (08:30→20:24)
[2017-08-27] MEDS: SERTRALINE HCL 50 MG TAB PO ×2 (08:30→20:23)
[2017-08-27] MEDS: AZELASTINE 137MCG NASAL SPY 30 ML (ASTELIN) ×2 (08:31→20:24)
[2017-08-27] MEDS: SANTYL OINT 30GM TOP (10:45)
[2017-08-27] MEDS: DIAPER RELIEF PASTE (DESITIN) 60GM TOP (10:45)
[2017-08-27 13:01] LABS: BEDSIDE GLUCOSE 298 MG/DL (80-115)
[2017-08-27 13:17] LABS: REASON FOR REVIEW COMPREHENSIVE REVIEW; SLIDE REVIEW Report; SOURCE PERIPHERAL SMEAR
[2017-08-27] MEDS: SODIUM CHLORIDE 0.9% INJ 10 ML SYR IV ×3 (14:18→21:17)
[2017-08-27 17:07] LABS: BEDSIDE GLUCOSE 377 MG/DL (80-115)
[2017-08-27] MEDS: rOPINIRole 1MG TAB PO (17:19)
[2017-08-27] MEDS: ASPIRIN 81 MG ENTERIC TAB PO (20:23)
[2017-08-27] MEDS: SPIRONOLACTONE 25 MG TAB PO (20:23)
[2017-08-27] MEDS: NORCO, ANEXSIA 5/325MG TABLET (HYDROcodone/ACETAMINOPHEN) PO (20:23)
[2017-08-27] MEDS: traZODone 50 MG TAB PO (20:27)
[2017-08-27 21:11] LABS: BEDSIDE GLUCOSE 312 MG/DL (80-115)
[2017-08-28] MEDS: SODIUM CHLORIDE 0.9% INJ 10 ML SYR IV ×2 (05:23→17:19)
[2017-08-28 05:35] LABS: HEMATOCRIT 26.2 % (36.0-47.0); HEMOGLOBIN 8.6 g/dl (12.0-16.0); MEAN CORPUSCULAR HEMOGLOBIN 28.9 pg (27.0-33.0); MEAN CORPUSCULAR HGB CONC 32.8 g/dl (32.0-36.5); MEAN CORPUSCULAR VOLUME 87.9 fl (80.0-96.0); PLATELET COUNT, AUTOMATED 185 10^3/uL (150-450); RED BLOOD COUNT 2.98 10^6/uL (4.00-5.40); RED CELL DISTRIBUTION WIDTH 13.2 % (11.5-14.5); WHITE BLOOD COUNT 8.9 10^3/uL (4.0-10.0)
[2017-08-28 06:36] LABS: ANION GAP 8 MEQ/L (8-16); BLOOD UREA NITROGEN 33 MG/DL (7-18); C REACTIVE PROTEIN QUANTITATIV 2.03 MG/DL (0.00-0.30); CALCIUM LEVEL 8.2 MG/DL (8.8-10.2); CARBON DIOXIDE LEVEL 28 MEQ/L (21-32); CHLORIDE LEVEL 102 MEQ/L (98-107); CREATININE FOR GFR 1.16 MG/DL (0.55-1.02); GLOMERULAR FILTRATION RATE 50.1 (>45); GLUCOSE, FASTING 288 MG/DL (80-110); MAGNESIUM LEVEL 1.9 MG/DL (1.8-2.4); POTASSIUM SERUM 4.3 MEQ/L (3.5-5.1); SODIUM LEVEL 138 MEQ/L (136-145)
[2017-08-28] MEDS: LEVEMIR (INSULIN DETEMIR) 1 UNITS/0.01ML SC ×2 (08:08→21:29)
[2017-08-28] MEDS: HumaLOG INSULIN (NovoLOG) PER UNIT SC ×4 (08:10→21:29)
[2017-08-28] MEDS: GABAPENTIN 100 MG CAP PO ×3 (08:11→21:33)
[2017-08-28] MEDS: ATORVASTATIN 20 MG TAB PO (08:11)
[2017-08-28] MEDS: LOSARTAN 50 MG TAB PO (08:11)
[2017-08-28] MEDS: GABAPENTIN 300 MG CAP PO ×3 (08:12→21:33)
[2017-08-28] MEDS: OMEPRAZOLE 20 MG CAP PO (08:14)
[2017-08-28] MEDS: amLODIPine 10 MG TAB PO (08:14)
[2017-08-28] MEDS: CARVedilol 12.5 MG TAB PO ×2 (08:14→21:30)
[2017-08-28] MEDS: SENOKOT S TAB PO ×2 (08:14→21:33)
[2017-08-28] MEDS: cloNIDine 0.1 MG TAB PO ×2 (08:15→21:34)
[2017-08-28] MEDS: ENOXAPARIN 40 MG/0.4 ML SYRINGE (J1650) SC (08:15)
[2017-08-28] MEDS: SERTRALINE HCL 50 MG TAB PO ×2 (08:15→21:33)
[2017-08-28] MEDS: FUROSEMIDE 40 MG TAB PO ×2 (08:15→17:18)
[2017-08-28] MEDS: SANTYL OINT 30GM TOP (08:16)
[2017-08-28] MEDS: AZELASTINE 137MCG NASAL SPY 30 ML (ASTELIN) ×2 (08:16→21:34)
[2017-08-28] MEDS: DIAPER RELIEF PASTE (DESITIN) 60GM TOP (08:16)
[2017-08-28 12:35] LABS: BEDSIDE GLUCOSE 302 MG/DL (80-115)
[2017-08-28 17:13] LABS: BEDSIDE GLUCOSE 309 MG/DL (80-115)
[2017-08-28] MEDS: rOPINIRole 1MG TAB PO (17:17)
[2017-08-28 21:00] LABS: BEDSIDE GLUCOSE 325 MG/DL (80-115)
[2017-08-28] MEDS: ASPIRIN 81 MG ENTERIC TAB PO (21:33)
[2017-08-28] MEDS: NORCO, ANEXSIA 5/325MG TABLET (HYDROcodone/ACETAMINOPHEN) PO (21:33)
[2017-08-28] MEDS: SPIRONOLACTONE 25 MG TAB PO (21:33)
[2017-08-28] MEDS: traZODone 50 MG TAB PO (21:34)
[2017-08-29] MEDS: SODIUM CHLORIDE 0.9% INJ 10 ML SYR IV ×2 (04:58→17:34)
[2017-08-29 06:52] LABS: BEDSIDE GLUCOSE 338 MG/DL (80-115)
[2017-08-29] MEDS: LEVEMIR (INSULIN DETEMIR) 1 UNITS/0.01ML SC ×2 (07:42→20:43)
[2017-08-29] MEDS: ENOXAPARIN 40 MG/0.4 ML SYRINGE (J1650) SC (07:42)
[2017-08-29] MEDS: OMEPRAZOLE 20 MG CAP PO (07:43)
[2017-08-29] MEDS: HumaLOG INSULIN (NovoLOG) PER UNIT SC ×4 (07:43→20:44)
[2017-08-29] MEDS: SENOKOT S TAB PO ×2 (07:43→20:41)
[2017-08-29] MEDS: GABAPENTIN 100 MG CAP PO ×3 (07:44→20:42)
[2017-08-29] MEDS: ATORVASTATIN 20 MG TAB PO (07:44)
[2017-08-29] MEDS: GABAPENTIN 300 MG CAP PO ×3 (07:44→20:42)
[2017-08-29] MEDS: amLODIPine 10 MG TAB PO (07:44)
[2017-08-29] MEDS: CARVedilol 12.5 MG TAB PO ×2 (07:44→20:44)
[2017-08-29] MEDS: cloNIDine 0.1 MG TAB PO ×2 (07:45→20:42)
[2017-08-29] MEDS: LOSARTAN 50 MG TAB PO (07:45)
[2017-08-29] MEDS: FUROSEMIDE 40 MG TAB PO ×2 (07:45→17:37)
[2017-08-29] MEDS: SERTRALINE HCL 50 MG TAB PO ×2 (07:45→20:41)
[2017-08-29] MEDS: DIAPER RELIEF PASTE (DESITIN) 60GM TOP (07:46)
[2017-08-29] MEDS: SANTYL OINT 30GM TOP (07:46)
[2017-08-29] MEDS: AZELASTINE 137MCG NASAL SPY 30 ML (ASTELIN) ×2 (07:46→20:44)
[2017-08-29] MEDS: metOLazone 2.5 MG TAB PO (10:31)
[2017-08-29 12:10] LABS: BEDSIDE GLUCOSE 312 MG/DL (80-115)
[2017-08-29 17:09] LABS: BEDSIDE GLUCOSE 255 MG/DL (80-115)
[2017-08-29] MEDS: rOPINIRole 1MG TAB PO (17:37)
[2017-08-29] MEDS: SPIRONOLACTONE 25 MG TAB PO (20:41)
[2017-08-29] MEDS: SODIUM CHLORIDE NASAL 0.65% SPRAY BTL (OCEAN) (20:42)
[2017-08-29] MEDS: ASPIRIN 81 MG ENTERIC TAB PO (20:42)
[2017-08-29 21:03] LABS: BEDSIDE GLUCOSE 213 MG/DL (80-115)
[2017-08-30] MEDS: SANTYL OINT 30GM TOP (04:00)
[2017-08-30] MEDS: SODIUM CHLORIDE 0.9% INJ 10 ML SYR IV ×2 (04:48→18:00)
[2017-08-30 06:32] LABS: BEDSIDE GLUCOSE 254 MG/DL (80-115)
[2017-08-30] MEDS: HumaLOG INSULIN (NovoLOG) PER UNIT SC ×4 (07:30→20:26)
[2017-08-30] MEDS: DIAPER RELIEF PASTE (DESITIN) 60GM TOP (09:00)
[2017-08-30] MEDS: LEVEMIR (INSULIN DETEMIR) 1 UNITS/0.01ML SC ×2 (09:00→20:27)
[2017-08-30] MEDS: AZELASTINE 137MCG NASAL SPY 30 ML (ASTELIN) ×2 (09:00→20:26)
[2017-08-30] MEDS: metOLazone 2.5 MG TAB PO (09:00)
[2017-08-30] MEDS: ENOXAPARIN 40 MG/0.4 ML SYRINGE (J1650) SC (09:00)
[2017-08-30 09:50] LABS: HEMATOCRIT 27.4 % (36.0-47.0); HEMOGLOBIN 9.2 g/dl (12.0-16.0); MEAN CORPUSCULAR HEMOGLOBIN 29.4 pg (27.0-33.0); MEAN CORPUSCULAR HGB CONC 33.6 g/dl (32.0-36.5); MEAN CORPUSCULAR VOLUME 87.5 fl (80.0-96.0); PLATELET COUNT, AUTOMATED 189 10^3/uL (150-450); RED BLOOD COUNT 3.13 10^6/uL (4.00-5.40); RED CELL DISTRIBUTION WIDTH 13.2 % (11.5-14.5); WHITE BLOOD COUNT 10.2 10^3/uL (4.0-10.0)
[2017-08-30] MEDS: NORCO, ANEXSIA 5/325MG TABLET (HYDROcodone/ACETAMINOPHEN) PO ×2 (10:01→18:13)
[2017-08-30] MEDS: ATORVASTATIN 20 MG TAB PO (10:02)
[2017-08-30] MEDS: SENOKOT S TAB PO ×2 (10:02→20:25)
[2017-08-30] MEDS: OMEPRAZOLE 20 MG CAP PO (10:02)
[2017-08-30] MEDS: cloNIDine 0.1 MG TAB PO ×2 (10:03→20:24)
[2017-08-30] MEDS: LOSARTAN 50 MG TAB PO (10:03)
[2017-08-30] MEDS: FUROSEMIDE 40 MG TAB PO ×2 (10:03→18:10)
[2017-08-30] MEDS: SERTRALINE HCL 50 MG TAB PO ×2 (10:04→20:24)
[2017-08-30] MEDS: CARVedilol 12.5 MG TAB PO ×2 (10:04→20:25)
[2017-08-30] MEDS: GABAPENTIN 300 MG CAP PO ×3 (10:04→20:25)
[2017-08-30] MEDS: GABAPENTIN 100 MG CAP PO ×3 (10:04→20:25)
[2017-08-30] MEDS: amLODIPine 10 MG TAB PO (10:05)
[2017-08-30 10:14] LABS: ERYTHROCYTE SEDIMENTATION RATE 87 mm/hr (0-30)
[2017-08-30 10:38] LABS: ANION GAP 6 MEQ/L (8-16); BLOOD UREA NITROGEN 41 MG/DL (7-18); C REACTIVE PROTEIN QUANTITATIV 1.41 MG/DL (0.00-0.30); CALCIUM LEVEL 8.7 MG/DL (8.8-10.2); CARBON DIOXIDE LEVEL 29 MEQ/L (21-32); CHLORIDE LEVEL 102 MEQ/L (98-107); CREATININE FOR GFR 1.27 MG/DL (0.55-1.02); GLOMERULAR FILTRATION RATE 45.1 (>45); SODIUM LEVEL 137 MEQ/L (136-145)
[2017-08-30 10:50] LABS: GLUCOSE, FASTING 402 MG/DL (80-110); POTASSIUM SERUM 5.4 MEQ/L (3.5-5.1)
[2017-08-30 12:00] LABS: BEDSIDE GLUCOSE 388 MG/DL (80-115)
[2017-08-30 12:40] LABS: ANION GAP 6 MEQ/L (8-16); BLOOD UREA NITROGEN 40 MG/DL (7-18); CALCIUM LEVEL 8.6 MG/DL (8.8-10.2); CARBON DIOXIDE LEVEL 29 MEQ/L (21-32); CHLORIDE LEVEL 102 MEQ/L (98-107); CREATININE FOR GFR 1.25 MG/DL (0.55-1.02); GLOMERULAR FILTRATION RATE 45.9 (>45); GLUCOSE, FASTING 393 MG/DL (80-110); SODIUM LEVEL 137 MEQ/L (136-145)
[2017-08-30 17:46] LABS: BEDSIDE GLUCOSE 280 MG/DL (80-115)
[2017-08-30] MEDS: rOPINIRole 1MG TAB PO (18:10)
[2017-08-30] MEDS: ASPIRIN 81 MG ENTERIC TAB PO (20:24)
[2017-08-30] MEDS: SPIRONOLACTONE 25 MG TAB PO (20:25)
[2017-08-30] MEDS: SODIUM CHLORIDE NASAL 0.65% SPRAY BTL (OCEAN) (20:26)
[2017-08-30 20:51] LABS: BEDSIDE GLUCOSE 329 MG/DL (80-115)
[2017-08-31] MEDS: SODIUM CHLORIDE 0.9% INJ 10 ML SYR IV ×2 (05:19→17:48)
[2017-08-31 05:36] LABS: HEMATOCRIT 26.3 % (36.0-47.0); HEMOGLOBIN 8.7 g/dl (12.0-16.0); MEAN CORPUSCULAR HGB CONC 33.1 g/dl (32.0-36.5); MEAN CORPUSCULAR VOLUME 87.7 fl (80.0-96.0); PLATELET COUNT, AUTOMATED 191 10^3/uL (150-450); RED CELL DISTRIBUTION WIDTH 13.2 % (11.5-14.5); WHITE BLOOD COUNT 8.8 10^3/uL (4.0-10.0)
[2017-08-31] MEDS: SANTYL OINT 30GM TOP (06:00)
[2017-08-31 06:24] LABS: ANION GAP 10 MEQ/L (8-16); BLOOD UREA NITROGEN 47 MG/DL (7-18); CALCIUM LEVEL 8.5 MG/DL (8.8-10.2); CARBON DIOXIDE LEVEL 28 MEQ/L (21-32); CHLORIDE LEVEL 101 MEQ/L (98-107); CREATININE FOR GFR 1.26 MG/DL (0.55-1.02); GLOMERULAR FILTRATION RATE 45.5 (>45); GLUCOSE, FASTING 342 MG/DL (80-110); POTASSIUM SERUM 4.6 MEQ/L (3.5-5.1); SODIUM LEVEL 139 MEQ/L (136-145)
[2017-08-31] MEDS: HumaLOG INSULIN (NovoLOG) PER UNIT SC ×5 (07:30→20:58)
[2017-08-31] MEDS: cloNIDine 0.1 MG TAB PO ×2 (08:28→20:47)
[2017-08-31] MEDS: FUROSEMIDE 40 MG TAB PO ×2 (08:28→17:48)
[2017-08-31] MEDS: amLODIPine 10 MG TAB PO (08:28)
[2017-08-31] MEDS: SENOKOT S TAB PO ×2 (08:29→20:46)
[2017-08-31] MEDS: SERTRALINE HCL 50 MG TAB PO ×2 (08:29→20:22)
[2017-08-31] MEDS: GABAPENTIN 100 MG CAP PO ×3 (08:29→20:23)
[2017-08-31] MEDS: GABAPENTIN 300 MG CAP PO ×3 (08:29→20:22)
[2017-08-31] MEDS: OMEPRAZOLE 20 MG CAP PO (08:30)
[2017-08-31] MEDS: NORCO, ANEXSIA 5/325MG TABLET (HYDROcodone/ACETAMINOPHEN) PO ×2 (08:30→18:06)
[2017-08-31] MEDS: CARVedilol 12.5 MG TAB PO ×2 (08:31→20:46)
[2017-08-31] MEDS: LOSARTAN 50 MG TAB PO (08:31)
[2017-08-31] MEDS: metOLazone 2.5 MG TAB PO (08:32)
[2017-08-31] MEDS: ATORVASTATIN 20 MG TAB PO (08:32)
[2017-08-31] MEDS: LEVEMIR (INSULIN DETEMIR) 1 UNITS/0.01ML SC ×2 (08:32→20:24)
[2017-08-31] MEDS: AZELASTINE 137MCG NASAL SPY 30 ML (ASTELIN) ×2 (08:35→20:24)
[2017-08-31] MEDS: DIAPER RELIEF PASTE (DESITIN) 60GM TOP (08:36)
[2017-08-31] MEDS: ENOXAPARIN 40 MG/0.4 ML SYRINGE (J1650) SC (08:37)
[2017-08-31 12:01] LABS: BEDSIDE GLUCOSE 343 MG/DL (80-115)
[2017-08-31 17:26] LABS: BEDSIDE GLUCOSE 165 MG/DL (80-115)
[2017-08-31] MEDS: rOPINIRole 1MG TAB PO (17:48)
[2017-08-31] MEDS: ASPIRIN 81 MG ENTERIC TAB PO (20:22)
[2017-08-31] MEDS: SPIRONOLACTONE 25 MG TAB PO (20:46)
[2017-08-31 21:44] LABS: BEDSIDE GLUCOSE 281 MG/DL (80-115)
[2017-09-01] MEDS: SODIUM CHLORIDE 0.9% INJ 10 ML SYR IV ×3 (05:10→21:23)
[2017-09-01] MEDS: NORCO, ANEXSIA 5/325MG TABLET (HYDROcodone/ACETAMINOPHEN) PO ×3 (05:11→18:42)
[2017-09-01 05:29] LABS: HEMATOCRIT 26.3 % (36.0-47.0); HEMOGLOBIN 8.9 g/dl (12.0-16.0); MEAN CORPUSCULAR HEMOGLOBIN 29.4 pg (27.0-33.0); MEAN CORPUSCULAR HGB CONC 33.8 g/dl (32.0-36.5); MEAN CORPUSCULAR VOLUME 86.8 fl (80.0-96.0); PLATELET COUNT, AUTOMATED 195 10^3/uL (150-450); RED BLOOD COUNT 3.03 10^6/uL (4.00-5.40); RED CELL DISTRIBUTION WIDTH 13.1 % (11.5-14.5); WHITE BLOOD COUNT 8.2 10^3/uL (4.0-10.0)
[2017-09-01 06:02] LABS: ANION GAP 6 MEQ/L (8-16); BLOOD UREA NITROGEN 43 MG/DL (7-18); CALCIUM LEVEL 8.9 MG/DL (8.8-10.2); CARBON DIOXIDE LEVEL 30 MEQ/L (21-32); CHLORIDE LEVEL 101 MEQ/L (98-107); CREATININE FOR GFR 1.17 MG/DL (0.55-1.02); GLOMERULAR FILTRATION RATE 49.6 (>45); GLUCOSE, FASTING 316 MG/DL (80-110); POTASSIUM SERUM 4.5 MEQ/L (3.5-5.1); SODIUM LEVEL 137 MEQ/L (136-145)
[2017-09-01] MEDS: HumaLOG INSULIN (NovoLOG) PER UNIT SC ×4 (08:20→21:20)
[2017-09-01] MEDS: LEVEMIR (INSULIN DETEMIR) 1 UNITS/0.01ML SC ×2 (08:20→21:21)
[2017-09-01] MEDS: cloNIDine 0.1 MG TAB PO ×2 (08:21→21:19)
[2017-09-01] MEDS: metOLazone 2.5 MG TAB PO (08:21)
[2017-09-01] MEDS: ENOXAPARIN 40 MG/0.4 ML SYRINGE (J1650) SC (08:21)
[2017-09-01] MEDS: LOSARTAN 50 MG TAB PO (08:22)
[2017-09-01] MEDS: GABAPENTIN 100 MG CAP PO ×3 (08:22→21:12)
[2017-09-01] MEDS: GABAPENTIN 300 MG CAP PO ×3 (08:22→21:20)
[2017-09-01] MEDS: amLODIPine 10 MG TAB PO (08:23)
[2017-09-01] MEDS: FUROSEMIDE 40 MG TAB PO ×2 (08:23→17:16)
[2017-09-01] MEDS: SENOKOT S TAB PO ×2 (08:23→21:12)
[2017-09-01] MEDS: OMEPRAZOLE 20 MG CAP PO (08:23)
[2017-09-01] MEDS: ATORVASTATIN 20 MG TAB PO (08:23)
[2017-09-01] MEDS: SERTRALINE HCL 50 MG TAB PO ×2 (08:23→21:12)
[2017-09-01] MEDS: CARVedilol 12.5 MG TAB PO ×2 (08:24→21:00)
[2017-09-01] MEDS: SANTYL OINT 30GM TOP (08:24)
[2017-09-01] MEDS: AZELASTINE 137MCG NASAL SPY 30 ML (ASTELIN) ×2 (08:24→21:22)
[2017-09-01] MEDS: DIAPER RELIEF PASTE (DESITIN) 60GM TOP (08:25)
[2017-09-01 12:22] LABS: BEDSIDE GLUCOSE 328 MG/DL (80-115)
[2017-09-01] MEDS: rOPINIRole 1MG TAB PO (17:15)
[2017-09-01] MEDS: ASPIRIN 81 MG ENTERIC TAB PO (21:13)
[2017-09-01] MEDS: SPIRONOLACTONE 25 MG TAB PO (21:19)
[2017-09-02 00:27] LABS: BEDSIDE GLUCOSE 415 MG/DL (80-115)
[2017-09-02 00:27] LABS: BEDSIDE GLUCOSE 355 MG/DL (80-115)
[2017-09-02] MEDS: SODIUM CHLORIDE 0.9% INJ 10 ML SYR IV ×3 (04:16→17:37)
[2017-09-02 05:39] LABS: HEMATOCRIT 27.6 % (36.0-47.0); HEMOGLOBIN 9.1 g/dl (12.0-16.0); MEAN CORPUSCULAR HEMOGLOBIN 28.9 pg (27.0-33.0); MEAN CORPUSCULAR VOLUME 87.6 fl (80.0-96.0); PLATELET COUNT, AUTOMATED 208 10^3/uL (150-450); RED BLOOD COUNT 3.15 10^6/uL (4.00-5.40); RED CELL DISTRIBUTION WIDTH 13.2 % (11.5-14.5); WHITE BLOOD COUNT 8.1 10^3/uL (4.0-10.0)
[2017-09-02 05:57] LABS: ANION GAP 7 MEQ/L (8-16); BLOOD UREA NITROGEN 39 MG/DL (7-18); CALCIUM LEVEL 8.5 MG/DL (8.8-10.2); CARBON DIOXIDE LEVEL 30 MEQ/L (21-32); CHLORIDE LEVEL 102 MEQ/L (98-107); CREATININE FOR GFR 1.21 MG/DL (0.55-1.02); GLOMERULAR FILTRATION RATE 47.7 (>45); GLUCOSE, FASTING 281 MG/DL (80-110); POTASSIUM SERUM 4.6 MEQ/L (3.5-5.1); SODIUM LEVEL 139 MEQ/L (136-145)
[2017-09-02] MEDS: HumaLOG INSULIN (NovoLOG) PER UNIT SC ×4 (08:18→20:32)
[2017-09-02] MEDS: LEVEMIR (INSULIN DETEMIR) 1 UNITS/0.01ML SC ×2 (08:18→20:32)
[2017-09-02] MEDS: cloNIDine 0.1 MG TAB PO ×2 (08:19→20:31)
[2017-09-02] MEDS: amLODIPine 10 MG TAB PO (08:19)
[2017-09-02] MEDS: CARVedilol 12.5 MG TAB PO ×2 (08:19→20:30)
[2017-09-02] MEDS: ATORVASTATIN 20 MG TAB PO (08:19)
[2017-09-02] MEDS: OMEPRAZOLE 20 MG CAP PO (08:19)
[2017-09-02] MEDS: SENOKOT S TAB PO ×2 (08:19→20:31)
[2017-09-02] MEDS: GABAPENTIN 300 MG CAP PO ×3 (08:20→20:31)
[2017-09-02] MEDS: GABAPENTIN 100 MG CAP PO ×3 (08:20→20:30)
[2017-09-02] MEDS: FUROSEMIDE 40 MG TAB PO ×2 (08:20→16:18)
[2017-09-02] MEDS: SERTRALINE HCL 50 MG TAB PO ×2 (08:20→20:31)
[2017-09-02] MEDS: LOSARTAN 50 MG TAB PO (08:20)
[2017-09-02] MEDS: ENOXAPARIN 40 MG/0.4 ML SYRINGE (J1650) SC (08:21)
[2017-09-02] MEDS: AZELASTINE 137MCG NASAL SPY 30 ML (ASTELIN) ×2 (08:22→20:33)
[2017-09-02] MEDS: DIAPER RELIEF PASTE (DESITIN) 60GM TOP (08:24)
[2017-09-02] MEDS: SANTYL OINT 30GM TOP (08:24)
[2017-09-02] MEDS: metOLazone 2.5 MG TAB PO (08:26)
[2017-09-02 16:19] LABS: BEDSIDE GLUCOSE 306 MG/DL (80-115)
[2017-09-02] MEDS: rOPINIRole 1MG TAB PO (17:37)
[2017-09-02] MEDS: NORCO, ANEXSIA 5/325MG TABLET (HYDROcodone/ACETAMINOPHEN) PO (20:29)
[2017-09-02] MEDS: SPIRONOLACTONE 25 MG TAB PO (20:30)
[2017-09-02] MEDS: ASPIRIN 81 MG ENTERIC TAB PO (20:31)
[2017-09-02] MEDS: SODIUM CHLORIDE NASAL 0.65% SPRAY BTL (OCEAN) (20:33)
[2017-09-03] MEDS: SODIUM CHLORIDE 0.9% INJ 10 ML SYR IV ×2 (05:06→18:31)
[2017-09-03 05:49] LABS: HEMATOCRIT 29.5 % (36.0-47.0); HEMOGLOBIN 9.8 g/dl (12.0-16.0); MEAN CORPUSCULAR HGB CONC 33.2 g/dl (32.0-36.5); MEAN CORPUSCULAR VOLUME 87.3 fl (80.0-96.0); PLATELET COUNT, AUTOMATED 207 10^3/uL (150-450); RED BLOOD COUNT 3.38 10^6/uL (4.00-5.40); RED CELL DISTRIBUTION WIDTH 13.2 % (11.5-14.5); WHITE BLOOD COUNT 8.8 10^3/uL (4.0-10.0)
[2017-09-03 06:08] LABS: ANION GAP 11 MEQ/L (8-16); BLOOD UREA NITROGEN 37 MG/DL (7-18); CALCIUM LEVEL 8.7 MG/DL (8.8-10.2); CARBON DIOXIDE LEVEL 24 MEQ/L (21-32); CHLORIDE LEVEL 104 MEQ/L (98-107); CREATININE FOR GFR 1.17 MG/DL (0.55-1.02); GLOMERULAR FILTRATION RATE 49.6 (>45); GLUCOSE, FASTING 342 MG/DL (80-110); POTASSIUM SERUM 4.6 MEQ/L (3.5-5.1); SODIUM LEVEL 139 MEQ/L (136-145)
[2017-09-03] MEDS: SERTRALINE HCL 50 MG TAB PO ×2 (08:01→20:33)
[2017-09-03] MEDS: GABAPENTIN 300 MG CAP PO ×3 (08:02→20:32)
[2017-09-03] MEDS: metOLazone 2.5 MG TAB PO (08:02)
[2017-09-03] MEDS: ATORVASTATIN 20 MG TAB PO (08:02)
[2017-09-03] MEDS: LEVEMIR (INSULIN DETEMIR) 1 UNITS/0.01ML SC ×2 (08:02→20:34)
[2017-09-03] MEDS: GABAPENTIN 100 MG CAP PO ×3 (08:02→20:32)
[2017-09-03] MEDS: OMEPRAZOLE 20 MG CAP PO (08:03)
[2017-09-03] MEDS: FUROSEMIDE 40 MG TAB PO ×2 (08:03→16:24)
[2017-09-03] MEDS: LOSARTAN 50 MG TAB PO (08:03)
[2017-09-03] MEDS: amLODIPine 10 MG TAB PO (08:03)
[2017-09-03] MEDS: CARVedilol 12.5 MG TAB PO ×2 (08:03→20:26)
[2017-09-03] MEDS: cloNIDine 0.1 MG TAB PO ×2 (08:04→20:33)
[2017-09-03] MEDS: DIAPER RELIEF PASTE (DESITIN) 60GM TOP (08:04)
[2017-09-03] MEDS: SENOKOT S TAB PO ×2 (08:04→20:32)
[2017-09-03] MEDS: AZELASTINE 137MCG NASAL SPY 30 ML (ASTELIN) ×2 (08:04→20:35)
[2017-09-03] MEDS: ENOXAPARIN 40 MG/0.4 ML SYRINGE (J1650) SC (08:04)
[2017-09-03] MEDS: HumaLOG INSULIN (NovoLOG) PER UNIT SC ×4 (08:05→20:34)
[2017-09-03] MEDS: SANTYL OINT 30GM TOP (08:05)
[2017-09-03 11:07] LABS: BEDSIDE GLUCOSE 265 MG/DL (80-115)
[2017-09-03 12:18] LABS: BEDSIDE GLUCOSE 333 MG/DL (80-115)
[2017-09-03 12:29] LABS: BEDSIDE GLUCOSE 365 MG/DL (80-115)
[2017-09-03] MEDS: rOPINIRole 1MG TAB PO (18:31)
[2017-09-03] MEDS: ASPIRIN 81 MG ENTERIC TAB PO (20:32)
[2017-09-03] MEDS: SPIRONOLACTONE 25 MG TAB PO (20:32)
[2017-09-03 23:38] LABS: BEDSIDE GLUCOSE 316 MG/DL (80-115)
[2017-09-04] MEDS: SODIUM CHLORIDE 0.9% INJ 10 ML SYR IV ×3 (05:11→18:17)
[2017-09-04 05:30] LABS: HEMATOCRIT 29.7 % (36.0-47.0); HEMOGLOBIN 10.1 g/dl (12.0-16.0); MEAN CORPUSCULAR HEMOGLOBIN 29.3 pg (27.0-33.0); MEAN CORPUSCULAR VOLUME 86.1 fl (80.0-96.0); PLATELET COUNT, AUTOMATED 195 10^3/uL (150-450); RED BLOOD COUNT 3.45 10^6/uL (4.00-5.40); RED CELL DISTRIBUTION WIDTH 13.3 % (11.5-14.5); WHITE BLOOD COUNT 9.2 10^3/uL (4.0-10.0)
[2017-09-04 05:48] LABS: ANION GAP 5 MEQ/L (8-16); BLOOD UREA NITROGEN 35 MG/DL (7-18); CARBON DIOXIDE LEVEL 32 MEQ/L (21-32); CHLORIDE LEVEL 103 MEQ/L (98-107); CREATININE FOR GFR 1.15 MG/DL (0.55-1.02); GLOMERULAR FILTRATION RATE 50.6 (>45); GLUCOSE, FASTING 213 MG/DL (80-110); SODIUM LEVEL 140 MEQ/L (136-145)
[2017-09-04] MEDS: LEVEMIR (INSULIN DETEMIR) 1 UNITS/0.01ML SC ×2 (08:46→21:39)
[2017-09-04] MEDS: HumaLOG INSULIN (NovoLOG) PER UNIT SC ×4 (08:46→21:40)
[2017-09-04] MEDS: ENOXAPARIN 40 MG/0.4 ML SYRINGE (J1650) SC (08:47)
[2017-09-04] MEDS: LOSARTAN 50 MG TAB PO (08:48)
[2017-09-04] MEDS: OMEPRAZOLE 20 MG CAP PO (08:48)
[2017-09-04] MEDS: ATORVASTATIN 20 MG TAB PO (08:48)
[2017-09-04] MEDS: SERTRALINE HCL 50 MG TAB PO ×2 (08:49→21:37)
[2017-09-04] MEDS: GABAPENTIN 100 MG CAP PO ×3 (08:49→21:37)
[2017-09-04] MEDS: CARVedilol 12.5 MG TAB PO ×2 (08:49→21:38)
[2017-09-04] MEDS: amLODIPine 10 MG TAB PO (08:50)
[2017-09-04] MEDS: GABAPENTIN 300 MG CAP PO ×3 (08:50→21:39)
[2017-09-04] MEDS: SENOKOT S TAB PO ×2 (08:50→21:38)
[2017-09-04] MEDS: FUROSEMIDE 40 MG TAB PO ×2 (08:50→16:32)
[2017-09-04] MEDS: AZELASTINE 137MCG NASAL SPY 30 ML (ASTELIN) ×2 (08:54→21:00)
[2017-09-04] MEDS: cloNIDine 0.1 MG TAB PO ×3 (08:54→21:39)
[2017-09-04] MEDS: SANTYL OINT 30GM TOP (08:55)
[2017-09-04] MEDS: DIAPER RELIEF PASTE (DESITIN) 60GM TOP (08:55)
[2017-09-04] MEDS: metOLazone 2.5 MG TAB PO (08:56)
[2017-09-04 09:39] LABS: BEDSIDE GLUCOSE 392 MG/DL (80-115)
[2017-09-04 12:16] LABS: BEDSIDE GLUCOSE 301 MG/DL (80-115)
[2017-09-04 17:12] LABS: BEDSIDE GLUCOSE 356 MG/DL (80-115)
[2017-09-04] MEDS: rOPINIRole 1MG TAB PO (18:16)
[2017-09-04] MEDS: SPIRONOLACTONE 25 MG TAB PO (21:37)
[2017-09-04] MEDS: ASPIRIN 81 MG ENTERIC TAB PO (21:38)
[2017-09-04 21:41] LABS: BEDSIDE GLUCOSE 416 MG/DL (80-115)
[2017-09-05] MEDS: SODIUM CHLORIDE 0.9% INJ 10 ML SYR IV ×2 (05:25→17:52)
[2017-09-05 05:44] LABS: HEMATOCRIT 29.9 % (36.0-47.0); MEAN CORPUSCULAR HEMOGLOBIN 29.1 pg (27.0-33.0); MEAN CORPUSCULAR HGB CONC 33.4 g/dl (32.0-36.5); MEAN CORPUSCULAR VOLUME 86.9 fl (80.0-96.0); PLATELET COUNT, AUTOMATED 181 10^3/uL (150-450); RED BLOOD COUNT 3.44 10^6/uL (4.00-5.40); RED CELL DISTRIBUTION WIDTH 13.2 % (11.5-14.5); WHITE BLOOD COUNT 8.8 10^3/uL (4.0-10.0)
[2017-09-05 06:03] LABS: C REACTIVE PROTEIN QUANTITATIV < 0.30 MG/DL (0.00-0.30)
[2017-09-05 06:05] LABS: ANION GAP 6 MEQ/L (8-16); BLOOD UREA NITROGEN 40 MG/DL (7-18); CALCIUM LEVEL 8.8 MG/DL (8.8-10.2); CARBON DIOXIDE LEVEL 30 MEQ/L (21-32); CHLORIDE LEVEL 104 MEQ/L (98-107); CREATININE FOR GFR 1.35 MG/DL (0.55-1.02); GLUCOSE, FASTING 286 MG/DL (80-110); POTASSIUM SERUM 4.1 MEQ/L (3.5-5.1); SODIUM LEVEL 140 MEQ/L (136-145)
[2017-09-05] MEDS: ATORVASTATIN 20 MG TAB PO (08:14)
[2017-09-05] MEDS: FUROSEMIDE 40 MG TAB PO ×2 (08:14→17:53)
[2017-09-05] MEDS: GABAPENTIN 300 MG CAP PO ×3 (08:14→22:12)
[2017-09-05] MEDS: GABAPENTIN 100 MG CAP PO ×3 (08:14→22:12)
[2017-09-05] MEDS: LOSARTAN 50 MG TAB PO (08:15)
[2017-09-05] MEDS: amLODIPine 10 MG TAB PO (08:16)
[2017-09-05] MEDS: HumaLOG INSULIN (NovoLOG) PER UNIT SC ×4 (08:17→22:14)
[2017-09-05] MEDS: LEVEMIR (INSULIN DETEMIR) 1 UNITS/0.01ML SC ×2 (08:17→22:13)
[2017-09-05] MEDS: OMEPRAZOLE 20 MG CAP PO (08:18)
[2017-09-05] MEDS: ENOXAPARIN 40 MG/0.4 ML SYRINGE (J1650) SC (08:18)
[2017-09-05] MEDS: metOLazone 2.5 MG TAB PO (08:18)
[2017-09-05] MEDS: SENOKOT S TAB PO ×2 (08:18→22:10)
[2017-09-05] MEDS: CARVedilol 12.5 MG TAB PO ×2 (08:19→22:12)
[2017-09-05] MEDS: SERTRALINE HCL 50 MG TAB PO ×2 (08:19→22:12)
[2017-09-05] MEDS: cloNIDine 0.1 MG TAB PO ×3 (08:19→22:11)
[2017-09-05] MEDS: DIAPER RELIEF PASTE (DESITIN) 60GM TOP (08:20)
[2017-09-05] MEDS: AZELASTINE 137MCG NASAL SPY 30 ML (ASTELIN) ×2 (08:20→22:16)
[2017-09-05] MEDS: SANTYL OINT 30GM TOP (08:20)
[2017-09-05 16:52] LABS: BEDSIDE GLUCOSE 325 MG/DL (80-115)
[2017-09-05 16:52] LABS: BEDSIDE GLUCOSE 366 MG/DL (80-115)
[2017-09-05] MEDS: rOPINIRole 1MG TAB PO (17:52)
[2017-09-05] MEDS: CEPHALEXIN 500 MG CAP PO (17:53)
[2017-09-05 20:59] LABS: BEDSIDE GLUCOSE 293 MG/DL (80-115)
[2017-09-05] MEDS: SPIRONOLACTONE 25 MG TAB PO (22:11)
[2017-09-05] MEDS: ASPIRIN 81 MG ENTERIC TAB PO (22:11)
[2017-09-05] MEDS: MUPIROCIN 2% OINT 22 GM TUBE TOP (23:12)
[2017-09-06] MEDS: CEPHALEXIN 500 MG CAP PO ×4 (00:12→17:19)
[2017-09-06] MEDS: SODIUM CHLORIDE 0.9% INJ 10 ML SYR IV ×2 (05:38→17:20)
[2017-09-06 06:01] LABS: HEMATOCRIT 30.5 % (36.0-47.0); HEMOGLOBIN 10.2 g/dl (12.0-16.0); MEAN CORPUSCULAR HEMOGLOBIN 29.1 pg (27.0-33.0); MEAN CORPUSCULAR HGB CONC 33.4 g/dl (32.0-36.5); MEAN CORPUSCULAR VOLUME 86.9 fl (80.0-96.0); PLATELET COUNT, AUTOMATED 184 10^3/uL (150-450); RED BLOOD COUNT 3.51 10^6/uL (4.00-5.40); RED CELL DISTRIBUTION WIDTH 13.2 % (11.5-14.5); WHITE BLOOD COUNT 8.7 10^3/uL (4.0-10.0)
[2017-09-06 06:33] LABS: ANION GAP 7 MEQ/L (8-16); BLOOD UREA NITROGEN 41 MG/DL (7-18); CALCIUM LEVEL 8.7 MG/DL (8.8-10.2); CARBON DIOXIDE LEVEL 31 MEQ/L (21-32); CHLORIDE LEVEL 104 MEQ/L (98-107); CREATININE FOR GFR 1.21 MG/DL (0.55-1.02); GLOMERULAR FILTRATION RATE 47.7 (>45); GLUCOSE, FASTING 248 MG/DL (80-110); SODIUM LEVEL 142 MEQ/L (136-145)
[2017-09-06] MEDS: HumaLOG INSULIN (NovoLOG) PER UNIT SC ×4 (08:09→21:33)
[2017-09-06] MEDS: LOSARTAN 50 MG TAB PO (08:09)
[2017-09-06] MEDS: OMEPRAZOLE 20 MG CAP PO (08:10)
[2017-09-06] MEDS: SENOKOT S TAB PO ×2 (08:10→21:30)
[2017-09-06] MEDS: amLODIPine 10 MG TAB PO (08:10)
[2017-09-06] MEDS: cloNIDine 0.1 MG TAB PO ×3 (08:10→21:31)
[2017-09-06] MEDS: CARVedilol 12.5 MG TAB PO ×2 (08:11→21:32)
[2017-09-06] MEDS: metOLazone 2.5 MG TAB PO (08:11)
[2017-09-06] MEDS: GABAPENTIN 300 MG CAP PO ×3 (08:11→21:30)
[2017-09-06] MEDS: GABAPENTIN 100 MG CAP PO ×3 (08:11→21:30)
[2017-09-06] MEDS: ATORVASTATIN 20 MG TAB PO (08:11)
[2017-09-06] MEDS: FUROSEMIDE 40 MG TAB PO ×2 (08:11→16:28)
[2017-09-06] MEDS: SERTRALINE HCL 50 MG TAB PO ×2 (08:12→21:30)
[2017-09-06] MEDS: LEVEMIR (INSULIN DETEMIR) 1 UNITS/0.01ML SC ×2 (08:12→21:00)
[2017-09-06] MEDS: MUPIROCIN 2% OINT 22 GM TUBE TOP ×2 (08:13→21:33)
[2017-09-06] MEDS: ENOXAPARIN 40 MG/0.4 ML SYRINGE (J1650) SC (08:13)
[2017-09-06] MEDS: DIAPER RELIEF PASTE (DESITIN) 60GM TOP (08:14)
[2017-09-06] MEDS: AZELASTINE 137MCG NASAL SPY 30 ML (ASTELIN) ×2 (08:14→21:34)
[2017-09-06] MEDS: SANTYL OINT 30GM TOP (08:14)
[2017-09-06 12:31] LABS: BEDSIDE GLUCOSE 393 MG/DL (80-115)
[2017-09-06 17:15] LABS: BEDSIDE GLUCOSE 306 MG/DL (80-115)
[2017-09-06] MEDS: rOPINIRole 1MG TAB PO (17:21)
[2017-09-06 20:32] LABS: BEDSIDE GLUCOSE 266 MG/DL (80-115)
[2017-09-06] MEDS: SPIRONOLACTONE 25 MG TAB PO (21:30)
[2017-09-06] MEDS: ASPIRIN 81 MG ENTERIC TAB PO (21:30)
[2017-09-07] MEDS: CEPHALEXIN 500 MG CAP PO ×4 (00:13→18:13)
[2017-09-07] MEDS: SODIUM CHLORIDE 0.9% INJ 10 ML SYR IV ×2 (05:35→18:14)
[2017-09-07 06:11] LABS: HEMATOCRIT 29.8 % (36.0-47.0); MEAN CORPUSCULAR HGB CONC 33.6 g/dl (32.0-36.5); MEAN CORPUSCULAR VOLUME 86.4 fl (80.0-96.0); PLATELET COUNT, AUTOMATED 180 10^3/uL (150-450); RED BLOOD COUNT 3.45 10^6/uL (4.00-5.40); RED CELL DISTRIBUTION WIDTH 13.2 % (11.5-14.5); WHITE BLOOD COUNT 8.9 10^3/uL (4.0-10.0)
[2017-09-07 06:43] LABS: ANION GAP 9 MEQ/L (8-16); BLOOD UREA NITROGEN 48 MG/DL (7-18); CALCIUM LEVEL 8.6 MG/DL (8.8-10.2); CARBON DIOXIDE LEVEL 28 MEQ/L (21-32); CHLORIDE LEVEL 101 MEQ/L (98-107); CREATININE FOR GFR 1.53 MG/DL (0.55-1.02); GLOMERULAR FILTRATION RATE 36.4 (>45); GLUCOSE, FASTING 392 MG/DL (80-110); POTASSIUM SERUM 4.4 MEQ/L (3.5-5.1); SODIUM LEVEL 138 MEQ/L (136-145)
[2017-09-07] MEDS: DIAPER RELIEF PASTE (DESITIN) 60GM TOP (08:09)
[2017-09-07] MEDS: SANTYL OINT 30GM TOP (08:09)
[2017-09-07] MEDS: LEVEMIR (INSULIN DETEMIR) 1 UNITS/0.01ML SC ×2 (08:10→21:24)
[2017-09-07] MEDS: ENOXAPARIN 40 MG/0.4 ML SYRINGE (J1650) SC (08:10)
[2017-09-07] MEDS: HumaLOG INSULIN (NovoLOG) PER UNIT SC ×4 (08:10→21:25)
[2017-09-07] MEDS: MUPIROCIN 2% OINT 22 GM TUBE TOP ×2 (08:11→21:26)
[2017-09-07] MEDS: AZELASTINE 137MCG NASAL SPY 30 ML (ASTELIN) ×2 (08:12→21:26)
[2017-09-07] MEDS: metOLazone 2.5 MG TAB PO (08:13)
[2017-09-07] MEDS: OMEPRAZOLE 20 MG CAP PO (08:13)
[2017-09-07] MEDS: ATORVASTATIN 20 MG TAB PO (08:13)
[2017-09-07] MEDS: CARVedilol 12.5 MG TAB PO ×2 (08:14→21:23)
[2017-09-07] MEDS: cloNIDine 0.1 MG TAB PO ×3 (08:14→21:21)
[2017-09-07] MEDS: GABAPENTIN 300 MG CAP PO ×3 (08:15→21:21)
[2017-09-07] MEDS: LOSARTAN 50 MG TAB PO (08:15)
[2017-09-07] MEDS: SENOKOT S TAB PO ×3 (08:15→21:22)
[2017-09-07] MEDS: amLODIPine 10 MG TAB PO (08:15)
[2017-09-07] MEDS: GABAPENTIN 100 MG CAP PO ×3 (08:15→21:20)
[2017-09-07] MEDS: SERTRALINE HCL 50 MG TAB PO ×2 (08:15→21:22)
[2017-09-07] MEDS: FUROSEMIDE 40 MG TAB PO (08:16)
[2017-09-07 12:08] LABS: BEDSIDE GLUCOSE 440 MG/DL (80-115)
[2017-09-07] MEDS: FERROUS GLUCONATE 324 MG TAB PO (15:32)
[2017-09-07 17:13] LABS: BEDSIDE GLUCOSE 262 MG/DL (80-115)
[2017-09-07] MEDS: rOPINIRole 1MG TAB PO (18:13)
[2017-09-07 18:29] LABS: AMORPHOUS SEDIMENT SMALL (NEGATIVE); APPEARANCE, URINE HAZY (CLEAR); BACTERIA, URINE AUTO NEGATIVE (NEGATIVE); BILIRUBIN, URINE AUTO NEGATIVE (NEGATIVE); BLOOD, URINE BLOOD NEGATIVE (NEGATIVE); COLOR, URINE YELLOW (YELLOW); GLUCOSE, URINE (UA) AUTO 1+ mg/dL (NEGATIVE); KETONE, URINE AUTO NEGATIVE (NEGATIVE); LEUKOCYTE ESTERASE, URINE AUTO TRACE (NEGATIVE); MUCUS, URINE SMALL (NEGATIVE); NITRITE, URINE AUTO NEGATIVE (NEGATIVE); PROTEIN, URINE AUTO 2+ mg/dL (NEGATIVE); RBC, URINE AUTO 2 /HPF (0-3); SPECIFIC GRAVITY URINE AUTO 1.013 (1.002-1.035); SQUAMOUS EPITHELIAL CELL UR AU 1 /HPF (0-6); UROBILINOGEN, URINE AUTO 0.2 mg/dL (0.0-2.0); WBC, URINE AUTO 3 /HPF (0-3)
[2017-09-07] MEDS: ASPIRIN 81 MG ENTERIC TAB PO (21:21)
[2017-09-08] MEDS: CEPHALEXIN 500 MG CAP PO ×5 (00:16→23:40)
[2017-09-08] MEDS: SODIUM CHLORIDE 0.9% INJ 10 ML SYR IV ×2 (06:06→17:48)
[2017-09-08 07:11] LABS: HEMATOCRIT 30.9 % (36.0-47.0); HEMOGLOBIN 10.4 g/dl (12.0-16.0); MEAN CORPUSCULAR HEMOGLOBIN 28.9 pg (27.0-33.0); MEAN CORPUSCULAR HGB CONC 33.7 g/dl (32.0-36.5); MEAN CORPUSCULAR VOLUME 85.8 fl (80.0-96.0); PLATELET COUNT, AUTOMATED 174 10^3/uL (150-450); RED CELL DISTRIBUTION WIDTH 13.2 % (11.5-14.5); WHITE BLOOD COUNT 8.8 10^3/uL (4.0-10.0)
[2017-09-08 07:20] LABS: ANION GAP 5 MEQ/L (8-16); BLOOD UREA NITROGEN 48 MG/DL (7-18); CALCIUM LEVEL 8.6 MG/DL (8.8-10.2); CARBON DIOXIDE LEVEL 30 MEQ/L (21-32); CHLORIDE LEVEL 104 MEQ/L (98-107); GLOMERULAR FILTRATION RATE 43.9 (>45); GLUCOSE, FASTING 303 MG/DL (80-110); POTASSIUM SERUM 4.3 MEQ/L (3.5-5.1); SODIUM LEVEL 139 MEQ/L (136-145)
[2017-09-08] MEDS: SANTYL OINT 30GM TOP (08:04)
[2017-09-08] MEDS: AZELASTINE 137MCG NASAL SPY 30 ML (ASTELIN) ×2 (08:04→21:21)
[2017-09-08] MEDS: DIAPER RELIEF PASTE (DESITIN) 60GM TOP (08:04)
[2017-09-08] MEDS: FERROUS GLUCONATE 324 MG TAB PO (08:05)
[2017-09-08] MEDS: SERTRALINE HCL 50 MG TAB PO ×2 (08:05→21:18)
[2017-09-08] MEDS: GABAPENTIN 300 MG CAP PO ×3 (08:05→21:18)
[2017-09-08] MEDS: MUPIROCIN 2% OINT 22 GM TUBE TOP ×2 (08:05→21:21)
[2017-09-08] MEDS: GABAPENTIN 100 MG CAP PO ×3 (08:05→21:18)
[2017-09-08] MEDS: SENOKOT S TAB PO ×2 (08:05→21:18)
[2017-09-08] MEDS: OMEPRAZOLE 20 MG CAP PO (08:06)
[2017-09-08] MEDS: CARVedilol 12.5 MG TAB PO ×2 (08:06→21:20)
[2017-09-08] MEDS: cloNIDine 0.1 MG TAB PO ×3 (08:06→21:19)
[2017-09-08] MEDS: LOSARTAN 50 MG TAB PO (08:06)
[2017-09-08] MEDS: amLODIPine 10 MG TAB PO (08:07)
[2017-09-08] MEDS: HumaLOG INSULIN (NovoLOG) PER UNIT SC ×4 (08:08→21:16)
[2017-09-08] MEDS: LEVEMIR (INSULIN DETEMIR) 1 UNITS/0.01ML SC ×2 (08:08→21:18)
[2017-09-08] MEDS: ATORVASTATIN 20 MG TAB PO (08:09)
[2017-09-08 11:54] LABS: BEDSIDE GLUCOSE 338 MG/DL (80-115)
[2017-09-08 11:54] LABS: BEDSIDE GLUCOSE 361 MG/DL (80-115)
[2017-09-08] MEDS: ENOXAPARIN 40 MG/0.4 ML SYRINGE (J1650) SC (12:07)
[2017-09-08 17:00] LABS: BEDSIDE GLUCOSE 348 MG/DL (80-115)
[2017-09-08] MEDS: rOPINIRole 1MG TAB PO (17:47)
[2017-09-08] MEDS: ASPIRIN 81 MG ENTERIC TAB PO (21:18)
[2017-09-08 21:48] LABS: BEDSIDE GLUCOSE 265 MG/DL (80-115)
[2017-09-09] MEDS: CEPHALEXIN 500 MG CAP PO ×4 (05:14→23:49)
[2017-09-09] MEDS: SODIUM CHLORIDE 0.9% INJ 10 ML SYR IV (05:15)
[2017-09-09] MEDS: LEVEMIR (INSULIN DETEMIR) 1 UNITS/0.01ML SC ×2 (08:23→23:51)
[2017-09-09] MEDS: HumaLOG INSULIN (NovoLOG) PER UNIT SC ×4 (08:23→23:50)
[2017-09-09] MEDS: ENOXAPARIN 40 MG/0.4 ML SYRINGE (J1650) SC (08:23)
[2017-09-09] MEDS: MUPIROCIN 2% OINT 22 GM TUBE TOP ×2 (08:24→23:51)
[2017-09-09] MEDS: DIAPER RELIEF PASTE (DESITIN) 60GM TOP (08:24)
[2017-09-09] MEDS: SANTYL OINT 30GM TOP (08:24)
[2017-09-09] MEDS: CARVedilol 12.5 MG TAB PO ×2 (08:25→23:48)
[2017-09-09] MEDS: ATORVASTATIN 20 MG TAB PO (08:25)
[2017-09-09] MEDS: AZELASTINE 137MCG NASAL SPY 30 ML (ASTELIN) ×2 (08:25→23:52)
[2017-09-09] MEDS: LOSARTAN 50 MG TAB PO (08:26)
[2017-09-09] MEDS: TORSEMIDE 20 MG TAB PO (08:26)
[2017-09-09] MEDS: GABAPENTIN 300 MG CAP PO ×3 (08:26→23:49)
[2017-09-09] MEDS: SENOKOT S TAB PO ×2 (08:26→23:49)
[2017-09-09] MEDS: SERTRALINE HCL 50 MG TAB PO ×2 (08:27→23:50)
[2017-09-09] MEDS: OMEPRAZOLE 20 MG CAP PO (08:27)
[2017-09-09] MEDS: cloNIDine 0.1 MG TAB PO ×3 (08:27→23:49)
[2017-09-09] MEDS: SPIRONOLACTONE 25 MG TAB PO (08:27)
[2017-09-09] MEDS: GABAPENTIN 100 MG CAP PO ×3 (08:27→23:49)
[2017-09-09] MEDS: amLODIPine 10 MG TAB PO (08:28)
[2017-09-09] MEDS: FERROUS GLUCONATE 324 MG TAB PO (08:28)
[2017-09-09 11:37] LABS: BEDSIDE GLUCOSE 270 MG/DL (80-115)
[2017-09-09 11:56] LABS: BEDSIDE GLUCOSE 314 MG/DL (80-115)
[2017-09-09 12:15] LABS: ANION GAP 6 MEQ/L (8-16); BLOOD UREA NITROGEN 47 MG/DL (7-18); CARBON DIOXIDE LEVEL 28 MEQ/L (21-32); CHLORIDE LEVEL 104 MEQ/L (98-107); CREATININE FOR GFR 1.45 MG/DL (0.55-1.02); GLOMERULAR FILTRATION RATE 38.7 (>45); GLUCOSE, FASTING 279 MG/DL (80-110); PHOSPHORUS LEVEL 3.5 MG/DL (2.5-4.9); POTASSIUM SERUM 4.5 MEQ/L (3.5-5.1); SODIUM LEVEL 138 MEQ/L (136-145)
[2017-09-09 16:50] LABS: BEDSIDE GLUCOSE 373 MG/DL (80-115)
[2017-09-09] MEDS: rOPINIRole 1MG TAB PO (17:51)
[2017-09-09] MEDS: ASPIRIN 81 MG ENTERIC TAB PO (23:48)
[2017-09-10 03:35] LABS: BEDSIDE GLUCOSE 379 MG/DL (80-115)
[2017-09-10] MEDS: CEPHALEXIN 500 MG CAP PO ×4 (05:51→22:26)
[2017-09-10 06:19] LABS: BEDSIDE GLUCOSE 333 MG/DL (80-115)
[2017-09-10] MEDS: SENOKOT S TAB PO ×2 (08:01→22:26)
[2017-09-10] MEDS: OMEPRAZOLE 20 MG CAP PO (08:01)
[2017-09-10] MEDS: ATORVASTATIN 20 MG TAB PO (08:01)
[2017-09-10] MEDS: GABAPENTIN 300 MG CAP PO ×3 (08:01→22:26)
[2017-09-10] MEDS: GABAPENTIN 100 MG CAP PO ×3 (08:02→22:27)
[2017-09-10] MEDS: FERROUS GLUCONATE 324 MG TAB PO (08:02)
[2017-09-10] MEDS: LEVEMIR (INSULIN DETEMIR) 1 UNITS/0.01ML SC ×2 (08:03→21:00)
[2017-09-10] MEDS: HumaLOG INSULIN (NovoLOG) PER UNIT SC ×4 (08:03→21:00)
[2017-09-10] MEDS: ENOXAPARIN 40 MG/0.4 ML SYRINGE (J1650) SC (08:04)
[2017-09-10] MEDS: SPIRONOLACTONE 25 MG TAB PO (08:06)
[2017-09-10] MEDS: amLODIPine 10 MG TAB PO (08:07)
[2017-09-10] MEDS: LOSARTAN 50 MG TAB PO (08:07)
[2017-09-10] MEDS: cloNIDine 0.1 MG TAB PO ×3 (08:07→22:26)
[2017-09-10] MEDS: SERTRALINE HCL 50 MG TAB PO ×2 (08:07→22:27)
[2017-09-10] MEDS: CARVedilol 12.5 MG TAB PO ×2 (08:08→22:26)
[2017-09-10] MEDS: MUPIROCIN 2% OINT 22 GM TUBE TOP (08:09)
[2017-09-10] MEDS: AZELASTINE 137MCG NASAL SPY 30 ML (ASTELIN) ×2 (08:10→21:00)
[2017-09-10] MEDS: SANTYL OINT 30GM TOP (08:11)
[2017-09-10] MEDS: DIAPER RELIEF PASTE (DESITIN) 60GM TOP (08:11)
[2017-09-10 12:04] LABS: BEDSIDE GLUCOSE 328 MG/DL (80-115)
[2017-09-10 13:35] LABS: ALBUMIN 3.5 GM/DL (3.2-5.2); ANION GAP 8 MEQ/L (8-16); BLOOD UREA NITROGEN 52 MG/DL (7-18); CALCIUM LEVEL 8.8 MG/DL (8.8-10.2); CARBON DIOXIDE LEVEL 27 MEQ/L (21-32); CHLORIDE LEVEL 104 MEQ/L (98-107); CREATININE FOR GFR 1.35 MG/DL (0.55-1.02); GLUCOSE, FASTING 262 MG/DL (80-110); PHOSPHORUS LEVEL 3.8 MG/DL (2.5-4.9); POTASSIUM SERUM 4.5 MEQ/L (3.5-5.1); SODIUM LEVEL 139 MEQ/L (136-145)
[2017-09-10 17:18] LABS: BEDSIDE GLUCOSE 247 MG/DL (80-115)
[2017-09-10] MEDS: rOPINIRole 1MG TAB PO (17:38)
[2017-09-10] MEDS: ASPIRIN 81 MG ENTERIC TAB PO (22:27)
[2017-09-11] MEDS: CEPHALEXIN 500 MG CAP PO ×2 (05:35→11:59)
[2017-09-11 06:05] LABS: BEDSIDE GLUCOSE 451 MG/DL (80-115)
[2017-09-11] MEDS: HumaLOG INSULIN (NovoLOG) PER UNIT SC ×2 (06:06→11:59)
[2017-09-11 07:15] LABS: BEDSIDE GLUCOSE 305 MG/DL (80-115)
[2017-09-11] MEDS: GABAPENTIN 300 MG CAP PO ×2 (10:23→16:14)
[2017-09-11] MEDS: ATORVASTATIN 20 MG TAB PO (10:23)
[2017-09-11] MEDS: OMEPRAZOLE 20 MG CAP PO (10:23)
[2017-09-11] MEDS: GABAPENTIN 100 MG CAP PO ×2 (10:23→16:14)
[2017-09-11] MEDS: FERROUS GLUCONATE 324 MG TAB PO (10:23)
[2017-09-11] MEDS: SPIRONOLACTONE 25 MG TAB PO (10:24)
[2017-09-11] MEDS: SENOKOT S TAB PO (10:24)
[2017-09-11] MEDS: amLODIPine 10 MG TAB PO (10:24)
[2017-09-11] MEDS: cloNIDine 0.1 MG TAB PO ×2 (10:24→16:15)
[2017-09-11] MEDS: SERTRALINE HCL 50 MG TAB PO (10:24)
[2017-09-11] MEDS: CARVedilol 12.5 MG TAB PO (10:25)
[2017-09-11] MEDS: LOSARTAN 50 MG TAB PO (10:25)
[2017-09-11] MEDS: ENOXAPARIN 40 MG/0.4 ML SYRINGE (J1650) SC (10:26)
[2017-09-11] MEDS: LEVEMIR (INSULIN DETEMIR) 1 UNITS/0.01ML SC (10:26)
[2017-09-11] MEDS: DIAPER RELIEF PASTE (DESITIN) 60GM TOP (10:27)
[2017-09-11] MEDS: SANTYL OINT 30GM TOP (10:27)
[2017-09-11] MEDS: AZELASTINE 137MCG NASAL SPY 30 ML (ASTELIN) (10:29)
[2017-09-11 11:54] LABS: BEDSIDE GLUCOSE 386 MG/DL (80-115)
[2017-09-11 16:42] LABS: BEDSIDE GLUCOSE 288 MG/DL (80-115)
== END 2017-09-11 17:40 | disposition home health service (06) | DRG 629 ==
LOC: M MS5PR 08-26 18:53 → M MSPAV 09-01 15:40 → M ED 16:01 → M ED INP 20:09 → M PCU 21:49
PROVIDERS: Internal Medicine
PROC: 047K3D6 (ICD-10-PCS; 2017-08-22)
PROC: 047M3D6 (ICD-10-PCS; 2017-08-22)
PROC: [UNRECOGNIZED PROCEDURE] (2017-08-22)
PROC: [UNRECOGNIZED PROCEDURE] (2017-08-22)
PROC: [UNRECOGNIZED PROCEDURE] (2017-08-22)
PROC: 30253N1 (ICD-10-PCS; 2017-08-24)
PROC: 02HV33Z Insertion of Infusion Device into Superior Vena Cava, Percutaneous Approach (ICD-10-PCS; principal; 2017-08-27)
DX: E11.69 Type 2 diabetes mellitus with other specified complication (principal); M86.171 Other acute osteomyelitis, right ankle and foot; E87.0 Hyperosmolality and hypernatremia; E11.52 Type 2 diabetes mellitus with diabetic peripheral angiopathy with gangrene; E11.65 Type 2 diabetes mellitus with hyperglycemia; G47.33 Obstructive sleep apnea (adult) (pediatric); J45.909 Unspecified asthma, uncomplicated; I12.9 Hypertensive chronic kidney disease with stage 1 through stage 4 chronic kidney disease, or unspecified chronic kidney disease; J44.9 Chronic obstructive pulmonary disease, unspecified; E78.00 Pure hypercholesterolemia, unspecified; F32.9 Major depressive disorder, single episode, unspecified; M54.9 Dorsalgia, unspecified; E11.22 Type 2 diabetes mellitus with diabetic chronic kidney disease; N18.3 Chronic kidney disease, stage 3 (moderate); R01.1 Cardiac murmur, unspecified; E11.621 Type 2 diabetes mellitus with foot ulcer; G25.81 Restless legs syndrome; E78.5 Hyperlipidemia, unspecified; D50.9 Iron deficiency anemia, unspecified; N17.9 Acute kidney failure, unspecified; L97.514 Non-pressure chronic ulcer of other part of right foot with necrosis of bone; B95.61 Methicillin susceptible Staphylococcus aureus infection as the cause of diseases classified elsewhere; E11.21 Type 2 diabetes mellitus with diabetic nephropathy; B35.1 Tinea unguium; K21.9 Gastro-esophageal reflux disease without esophagitis; Z99.81 Dependence on supplemental oxygen; Z79.4 Long term (current) use of insulin; Z88.0 Allergy status to penicillin; Z79.891 Long term (current) use of opiate analgesic; Z79.899 Other long term (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 therapy; Z91.11 Patient's noncompliance with dietary regimen; Z79.82 Long term (current) use of aspirin; Z86.14 Personal history of Methicillin resistant Staphylococcus aureus infection

== ENCOUNTER → 2017-10-02 | Outpatient (REF) | payer MEDICARE ==
[2017-10-02 16:05] LABS: ANION GAP 6 MEQ/L (8-16); BASO % 0.5 % (0.0-1.0); BLOOD UREA NITROGEN 52 MG/DL (7-18); C REACTIVE PROTEIN QUANTITATIV < 0.30 MG/DL (0.00-0.30); CALCIUM LEVEL 8.9 MG/DL (8.8-10.2); CARBON DIOXIDE LEVEL 27 MEQ/L (21-32); CHLORIDE LEVEL 105 MEQ/L (98-107); CREATININE FOR GFR 1.71 MG/DL (0.55-1.30); GLUCOSE, FASTING 194 MG/DL (70-100); HEMATOCRIT 32.1 % (36.0-47.0); HEMOGLOBIN 10.2 g/dl (12.0-16.0); IMMATURE GRANULOCYTE % 0.4 % (0-0); LYMPH % 18.6 % (24.0-44.0); MEAN CORPUSCULAR HEMOGLOBIN 28.3 pg (27.0-33.0); MEAN CORPUSCULAR HGB CONC 31.8 g/dl (32.0-36.5); MEAN CORPUSCULAR VOLUME 89.2 fl (80.0-96.0); MONO % 8.4 % (0.0-5.0); NEUTROPHILS # 6.7 10^3/uL (1.8-7.7); NEUTROPHILS % 71.1 % (36.0-66.0); PLATELET COUNT, AUTOMATED 184 10^3/uL (150-450); RED CELL DISTRIBUTION WIDTH 13.5 % (11.5-14.5); SODIUM LEVEL 138 MEQ/L (136-145); WHITE BLOOD COUNT 9.4 10^3/uL (4.0-10.0)
[2017-10-02 16:06] LABS: BASO # 0.1 10^3/uL (0.0-0.2); EOS # 0.1 10^3/uL (0.0-0.50); LYMPH # 1.7 10^3/uL (1.5-4.5); MONO # 0.8 10^3/uL (0.0-0.8)
[2017-10-02 17:18] LABS: ERYTHROCYTE SEDIMENTATION RATE 52 mm/hr (0-30)
== END ==
LOC: M SFHCPLAZ 13:29
DX: M86.171 Other acute osteomyelitis, right ankle and foot (principal)
CPT/HCPCS: 80048

== ENCOUNTER → 2017-11-03 | Outpatient (REF) | payer MEDICARE ==
[2017-11-03 17:45] LABS: ANION GAP 8 MEQ/L (8-16); BLOOD UREA NITROGEN 55 MG/DL (7-18); C REACTIVE PROTEIN QUANTITATIV < 0.30 MG/DL (0.00-0.30); CARBON DIOXIDE LEVEL 26 MEQ/L (21-32); CHLORIDE LEVEL 105 MEQ/L (98-107); CREATININE FOR GFR 1.48 MG/DL (0.55-1.30); GLOMERULAR FILTRATION RATE 37.8 (>45); GLUCOSE, FASTING 284 MG/DL (70-100); POTASSIUM SERUM 4.8 MEQ/L (3.5-5.1); SODIUM LEVEL 139 MEQ/L (136-145)
[2017-11-03 18:06] LABS: BASO # 0.1 10^3/uL (0.0-0.2); BASO % 0.6 % (0.0-1.0); EOS # 0.1 10^3/uL (0.0-0.50); EOS % 1.3 % (0.0-3.0); HEMATOCRIT 31.3 % (36.0-47.0); HEMOGLOBIN 10.2 g/dl (12.0-16.0); IMMATURE GRANULOCYTE % 0.2 % (0-3.0); LYMPH # 2.5 10^3/uL (1.5-4.5); LYMPH % 28.5 % (24.0-44.0); MEAN CORPUSCULAR HEMOGLOBIN 28.8 pg (27.0-33.0); MEAN CORPUSCULAR HGB CONC 32.6 g/dl (32.0-36.5); MEAN CORPUSCULAR VOLUME 88.4 fl (80.0-96.0); MONO # 0.7 10^3/uL (0.0-0.8); MONO % 8.3 % (0.0-5.0); NEUTROPHILS # 5.3 10^3/uL (1.8-7.7); NEUTROPHILS % 61.1 % (36.0-66.0); PLATELET COUNT, AUTOMATED 202 10^3/uL (150-450); RED BLOOD COUNT 3.54 10^6/uL (4.00-5.40); RED CELL DISTRIBUTION WIDTH 13.4 % (11.5-14.5); WHITE BLOOD COUNT 8.7 10^3/uL (4.0-10.0)
[2017-11-03 18:34] LABS: ERYTHROCYTE SEDIMENTATION RATE 63 mm/hr (0-30)
== END ==
LOC: M SFHCPLAZ 13:28
DX: M86.171 Other acute osteomyelitis, right ankle and foot (principal); E11.621 Type 2 diabetes mellitus with foot ulcer
CPT/HCPCS: 80048

== ENCOUNTER 2017-11-08 22:36 | Inpatient (IN) | payer MEDICARE ==
[2017-11-08] MEDS: NS 1,000 ML IV (23:00)
[2017-11-08] MEDS: ONDANSETRON 4MG/2ML VIAL (J2405) IV (23:00)
[2017-11-08] MEDS: PANTOPRAZOLE 40MG INJ (PROTONIX) (C9113) IV (23:00)
[2017-11-08 23:29] LABS: BASO % 0.3 % (0.0-1.0); EOS # 0.1 10^3/uL (0.0-0.50); EOS % 0.4 % (0.0-3.0); HEMATOCRIT 31.3 % (36.0-47.0); HEMOGLOBIN 10.4 g/dl (12.0-16.0); IMMATURE GRANULOCYTE % 0.5 % (0-3.0); LYMPH # 1.4 10^3/uL (1.5-4.5); LYMPH % 9.4 % (24.0-44.0); MEAN CORPUSCULAR HEMOGLOBIN 28.6 pg (27.0-33.0); MEAN CORPUSCULAR HGB CONC 33.2 g/dl (32.0-36.5); MONO # 0.8 10^3/uL (0.0-0.8); MONO % 5.7 % (0.0-5.0); NEUTROPHILS % 83.7 % (36.0-66.0); PLATELET COUNT, AUTOMATED 187 10^3/uL (150-450); RED BLOOD COUNT 3.64 10^6/uL (4.00-5.40); RED CELL DISTRIBUTION WIDTH 13.2 % (11.5-14.5); WHITE BLOOD COUNT 14.3 10^3/uL (4.0-10.0)
[2017-11-08 23:51] LABS: LACTIC ACID SEPSIS PROTOCOL 1.4 MMOL/L (0.4-2.0)
[2017-11-08 23:53] LABS: ALBUMIN 3.6 GM/DL (3.2-5.2); ALBUMIN/GLOBULIN RATIO 1.06 (1.00-1.93); ALKALINE PHOSPHATASE 87 U/L (45-117); ALT/SGPT 22 U/L (12-78); AMYLASE 48 U/L (25-115); ANION GAP 7 MEQ/L (8-16); AST/SGOT 15 U/L (7-37); BILIRUBIN,DIRECT 0.1 MG/DL (0.0-0.2); BILIRUBIN,TOTAL 0.6 MG/DL (0.2-1.0); BLOOD UREA NITROGEN 47 MG/DL (7-18); CALCIUM LEVEL 8.7 MG/DL (8.8-10.2); CARBON DIOXIDE LEVEL 28 MEQ/L (21-32); CHLORIDE LEVEL 107 MEQ/L (98-107); CPK CREATINE PHOSPHOKINASE 160 U/L (26-192); CREATININE FOR GFR 1.39 MG/DL (0.55-1.30); GLOMERULAR FILTRATION RATE 40.6 (>45); GLUCOSE, FASTING 181 MG/DL (70-100); LIPASE 100 U/L (73-393); POTASSIUM SERUM 4.5 MEQ/L (3.5-5.1); SODIUM LEVEL 142 MEQ/L (136-145); TROPONIN I < 0.02 NG/ML (< 0.10)
[2017-11-08 23:54] LABS: CK-MB VALUE MASS 2.8 NG/ML (0.0-3.6); MB/CK RELATIVE INDEX 1.75 (< OR =4)
[2017-11-09] MEDS: GI COCKTAIL 50ML BTL(HYOSCYAMINE/MAALOX/LIDOCAINE VISCOUS)(1:3:1) PO (00:01)
[2017-11-09 00:02] LABS: C REACTIVE PROTEIN QUANTITATIV 1.91 MG/DL (0.00-0.30)
[2017-11-09 00:18] LABS: INFLUENZA A AMPLIFICATION NEGATIVE (NEGATIVE); INFLUENZA B AMPLIFICATION NEGATIVE (NEGATIVE)
[2017-11-09] MEDS ORDERED: ISOVUE-370 76% 100ML VIAL (Q9967) As Ordered (00:24)
[2017-11-09] MEDS: MECLIZINE 25 MG TABLET PO (01:17)
[2017-11-09] MEDS: NORCO, ANEXSIA 5/325MG TABLET (HYDROcodone/ACETAMINOPHEN) PO (01:18)
[2017-11-09] MEDS: CIPROFLOXACIN 400 MG in APPROPRIATE DILUENT 1 EA IV ×2 (04:14→17:23)
[2017-11-09] MEDS ORDERED: ACETAMINOPHEN TAB 650MG DOSE (2X325MG) PO (04:45)
[2017-11-09] MEDS ORDERED: NORCO, ANEXSIA 5/325MG TABLET (HYDROcodone/ACETAMINOPHEN) PO (04:45)
[2017-11-09] MEDS ORDERED: NITROGLYCERIN 0.4 MG SUBL TABLET SL (05:00)
[2017-11-09] MEDS ORDERED: traZODone 50 MG TAB PO (05:00)
[2017-11-09] MEDS: NS 1,000 ML IV ×2 (05:45→12:37)
[2017-11-09] MEDS: metroNIDAZOLE 500 MG in APPROPRIATE DILUENT 1 EA IV ×3 (05:45→17:24)
[2017-11-09 06:48] LABS: BEDSIDE GLUCOSE 289 MG/DL (80-115)
[2017-11-09] MEDS ORDERED: HUMULIN R U-500 KWIKPEN 500UNITS/ML 3ML SYRINGE (J1815 PER 5UNITS) SQ ×2 (08:00→12:30)
[2017-11-09] MEDS: HumaLOG INSULIN (NovoLOG) PER UNIT SC ×4 (08:52→20:40)
[2017-11-09] MEDS: ATORVASTATIN 20 MG TAB PO (08:53)
[2017-11-09] MEDS: SERTRALINE HCL 50 MG TAB PO ×2 (08:53→20:24)
[2017-11-09] MEDS: GABAPENTIN 100 MG CAP PO ×3 (08:53→20:24)
[2017-11-09] MEDS: ENOXAPARIN 40 MG/0.4 ML SYRINGE (J1650) SC (08:53)
[2017-11-09] MEDS: OMEPRAZOLE 20 MG CAP PO (08:54)
[2017-11-09] MEDS: GABAPENTIN 300 MG CAP PO ×3 (08:54→20:24)
[2017-11-09] MEDS: VITAMIN D 1,000 INTERNATIONAL UNITS TABLET PO (08:54)
[2017-11-09] MEDS: LOSARTAN 50 MG TAB PO (08:57)
[2017-11-09] MEDS: CARVedilol 12.5 MG TAB PO ×2 (08:57→20:25)
[2017-11-09] MEDS: SANTYL OINT 30GM TOP (09:00)
[2017-11-09] MEDS ORDERED: PANTOPRAZOLE 40MG INJ (PROTONIX) (C9113) IV (09:00)
[2017-11-09 09:57] LABS: BASO % 0.2 % (0.0-1.0); EOS % 0.4 % (0.0-3.0); HEMATOCRIT 27.3 % (36.0-47.0); HEMOGLOBIN 8.9 g/dl (12.0-16.0); IMMATURE GRANULOCYTE % 0.4 % (0-3.0); LYMPH # 1.8 10^3/uL (1.5-4.5); MEAN CORPUSCULAR HEMOGLOBIN 28.8 pg (27.0-33.0); MEAN CORPUSCULAR HGB CONC 32.6 g/dl (32.0-36.5); MEAN CORPUSCULAR VOLUME 88.3 fl (80.0-96.0); MONO # 0.7 10^3/uL (0.0-0.8); MONO % 7.2 % (0.0-5.0); NEUTROPHILS # 7.5 10^3/uL (1.8-7.7); NEUTROPHILS % 73.8 % (36.0-66.0); PLATELET COUNT, AUTOMATED 146 10^3/uL (150-450); RED BLOOD COUNT 3.09 10^6/uL (4.00-5.40); RED CELL DISTRIBUTION WIDTH 13.2 % (11.5-14.5); WHITE BLOOD COUNT 10.2 10^3/uL (4.0-10.0)
[2017-11-09 10:08] LABS: ANION GAP 7 MEQ/L (8-16); BLOOD UREA NITROGEN 41 MG/DL (7-18); C REACTIVE PROTEIN QUANTITATIV 2.48 MG/DL (0.00-0.30); CALCIUM LEVEL 8.1 MG/DL (8.8-10.2); CARBON DIOXIDE LEVEL 24 MEQ/L (21-32); CHLORIDE LEVEL 108 MEQ/L (98-107); CREATININE FOR GFR 1.53 MG/DL (0.55-1.30); GLOMERULAR FILTRATION RATE 36.4 (>45); GLUCOSE, FASTING 345 MG/DL (70-100); POTASSIUM SERUM 4.5 MEQ/L (3.5-5.1); SODIUM LEVEL 139 MEQ/L (136-145)
[2017-11-09 11:52] LABS: BEDSIDE GLUCOSE 364 MG/DL (80-115)
[2017-11-09] MEDS: POTASSIUM CHLORIDE 10 MEQ SR TABLET PO ×2 (12:57→20:26)
[2017-11-09] MEDS: rOPINIRole 1MG TAB PO ×2 (12:57→20:23)
[2017-11-09 17:10] LABS: BEDSIDE GLUCOSE 321 MG/DL (80-115)
[2017-11-09] MEDS: ASPIRIN 81 MG ENTERIC TAB PO (20:24)
[2017-11-09] MEDS: cloNIDine 0.1 MG TAB PO (20:25)
[2017-11-09 20:42] LABS: BEDSIDE GLUCOSE 336 MG/DL (80-115)
[2017-11-09] MEDS ORDERED: rOPINIRole 1MG TAB PO (21:00)
[2017-11-10] MEDS: metroNIDAZOLE 500 MG in APPROPRIATE DILUENT 1 EA IV ×4 (00:31→18:18)
[2017-11-10] MEDS: CIPROFLOXACIN 400 MG in APPROPRIATE DILUENT 1 EA IV ×2 (04:36→16:21)
[2017-11-10 06:16] LABS: HEMATOCRIT 28.2 % (36.0-47.0); HEMOGLOBIN 9.4 g/dl (12.0-16.0); MEAN CORPUSCULAR HEMOGLOBIN 29.4 pg (27.0-33.0); MEAN CORPUSCULAR HGB CONC 33.3 g/dl (32.0-36.5); MEAN CORPUSCULAR VOLUME 88.1 fl (80.0-96.0); PLATELET COUNT, AUTOMATED 147 10^3/uL (150-450); RED CELL DISTRIBUTION WIDTH 13.2 % (11.5-14.5); WHITE BLOOD COUNT 9.7 10^3/uL (4.0-10.0)
[2017-11-10 06:30] LABS: ANION GAP 8 MEQ/L (8-16); BLOOD UREA NITROGEN 37 MG/DL (7-18); CALCIUM LEVEL 8.7 MG/DL (8.8-10.2); CARBON DIOXIDE LEVEL 23 MEQ/L (21-32); CHLORIDE LEVEL 106 MEQ/L (98-107); CREATININE FOR GFR 1.54 MG/DL (0.55-1.30); GLOMERULAR FILTRATION RATE 36.1 (>45); GLUCOSE, FASTING 330 MG/DL (70-100); POTASSIUM SERUM 4.8 MEQ/L (3.5-5.1); SODIUM LEVEL 137 MEQ/L (136-145)
[2017-11-10] MEDS: HumaLOG INSULIN (NovoLOG) PER UNIT SC ×3 (08:40→18:19)
[2017-11-10] MEDS: ENOXAPARIN 40 MG/0.4 ML SYRINGE (J1650) SC (09:19)
[2017-11-10] MEDS: GABAPENTIN 100 MG CAP PO ×3 (09:19→20:25)
[2017-11-10] MEDS: GABAPENTIN 300 MG CAP PO ×3 (09:19→20:25)
[2017-11-10] MEDS: OMEPRAZOLE 20 MG CAP PO (09:19)
[2017-11-10] MEDS: rOPINIRole 1MG TAB PO ×2 (09:20→20:25)
[2017-11-10] MEDS: CARVedilol 12.5 MG TAB PO ×2 (09:20→20:26)
[2017-11-10] MEDS: LOSARTAN 50 MG TAB PO (09:20)
[2017-11-10] MEDS: VITAMIN D 1,000 INTERNATIONAL UNITS TABLET PO (09:21)
[2017-11-10] MEDS: ATORVASTATIN 20 MG TAB PO (09:21)
[2017-11-10] MEDS: SERTRALINE HCL 50 MG TAB PO ×2 (09:21→20:25)
[2017-11-10 12:07] LABS: BEDSIDE GLUCOSE 260 MG/DL (80-115)
[2017-11-10] MEDS: ONDANSETRON 4MG/2ML VIAL (J2405) IV (12:19)
[2017-11-10] MEDS: POTASSIUM CHLORIDE 10 MEQ SR TABLET PO ×2 (12:20→20:25)
[2017-11-10 16:51] LABS: BEDSIDE GLUCOSE 341 MG/DL (80-115)
[2017-11-10] MEDS: LACTOBACILLUS ACIDOPHILUS CAP (BACID) PO (18:18)
[2017-11-10] MEDS: METOCLOPRAMIDE INJ 10MG/2ML VIAL (J2765) IV (19:39)
[2017-11-10] MEDS: ASPIRIN 81 MG ENTERIC TAB PO (20:25)
[2017-11-10] MEDS: cloNIDine 0.1 MG TAB PO (20:26)
[2017-11-11 00:02] LABS: BEDSIDE GLUCOSE 335 MG/DL (80-115)
[2017-11-11] MEDS: metroNIDAZOLE 500 MG in APPROPRIATE DILUENT 1 EA IV ×5 (00:11→23:42)
[2017-11-11] MEDS: HumaLOG INSULIN (NovoLOG) PER UNIT SC ×5 (00:12→23:42)
[2017-11-11] MEDS: CIPROFLOXACIN 400 MG in APPROPRIATE DILUENT 1 EA IV ×2 (05:07→16:29)
[2017-11-11 06:09] LABS: HEMATOCRIT 29.1 % (36.0-47.0); HEMOGLOBIN 9.5 g/dl (12.0-16.0); MEAN CORPUSCULAR HGB CONC 32.6 g/dl (32.0-36.5); MEAN CORPUSCULAR VOLUME 85.8 fl (80.0-96.0); PLATELET COUNT, AUTOMATED 167 10^3/uL (150-450); RED BLOOD COUNT 3.39 10^6/uL (4.00-5.40); RED CELL DISTRIBUTION WIDTH 13.1 % (11.5-14.5); WHITE BLOOD COUNT 12.7 10^3/uL (4.0-10.0)
[2017-11-11 06:25] LABS: ANION GAP 8 MEQ/L (8-16); BLOOD UREA NITROGEN 32 MG/DL (7-18); CALCIUM LEVEL 8.6 MG/DL (8.8-10.2); CARBON DIOXIDE LEVEL 23 MEQ/L (21-32); CHLORIDE LEVEL 106 MEQ/L (98-107); CREATININE FOR GFR 1.57 MG/DL (0.55-1.30); GLOMERULAR FILTRATION RATE 35.3 (>45); GLUCOSE, FASTING 292 MG/DL (70-100); POTASSIUM SERUM 4.5 MEQ/L (3.5-5.1); SODIUM LEVEL 137 MEQ/L (136-145)
[2017-11-11 06:26] LABS: ESTIMATED AVERAGE GLUCOSE 169 MG/DL (60-110); HEMOGLOBIN A1c 7.5 %
[2017-11-11 07:08] LABS: BEDSIDE GLUCOSE 347 MG/DL (80-115)
[2017-11-11] MEDS: ATORVASTATIN 20 MG TAB PO (08:35)
[2017-11-11] MEDS: CARVedilol 12.5 MG TAB PO ×2 (08:36→21:42)
[2017-11-11] MEDS: GABAPENTIN 300 MG CAP PO ×3 (08:37→21:44)
[2017-11-11] MEDS: rOPINIRole 1MG TAB PO ×2 (08:37→21:43)
[2017-11-11] MEDS: LOSARTAN 50 MG TAB PO (08:37)
[2017-11-11] MEDS: GABAPENTIN 100 MG CAP PO ×3 (08:37→21:42)
[2017-11-11] MEDS: LACTOBACILLUS ACIDOPHILUS CAP (BACID) PO ×3 (08:37→17:48)
[2017-11-11] MEDS: OMEPRAZOLE 20 MG CAP PO (08:37)
[2017-11-11] MEDS: VITAMIN D 1,000 INTERNATIONAL UNITS TABLET PO (08:37)
[2017-11-11] MEDS: SERTRALINE HCL 50 MG TAB PO ×2 (08:38→21:43)
[2017-11-11] MEDS: ENOXAPARIN 40 MG/0.4 ML SYRINGE (J1650) SC (08:38)
[2017-11-11 11:50] LABS: BEDSIDE GLUCOSE 338 MG/DL (80-115)
[2017-11-11] MEDS: POTASSIUM CHLORIDE 10 MEQ SR TABLET PO ×2 (11:54→21:44)
[2017-11-11 18:50] LABS: BEDSIDE GLUCOSE 419 MG/DL (80-115)
[2017-11-11 21:42] LABS: BEDSIDE GLUCOSE 442 MG/DL (80-115)
[2017-11-11] MEDS: METOCLOPRAMIDE 5 MG TAB PO (21:43)
[2017-11-11] MEDS: ASPIRIN 81 MG ENTERIC TAB PO (21:43)
[2017-11-11] MEDS: cloNIDine 0.1 MG TAB PO (21:44)
[2017-11-11] MEDS: LEVEMIR (INSULIN DETEMIR) 1 UNITS/0.01ML SC (21:45)
[2017-11-11 23:50] LABS: BEDSIDE GLUCOSE 454 MG/DL (80-115)
[2017-11-12 00:04] LABS: BEDSIDE GLUCOSE 452 MG/DL (80-115)
[2017-11-12 01:58] LABS: BEDSIDE GLUCOSE 374 MG/DL (80-115)
[2017-11-12] MEDS: CIPROFLOXACIN 400 MG in APPROPRIATE DILUENT 1 EA IV (04:53)
[2017-11-12 05:49] LABS: BEDSIDE GLUCOSE 316 MG/DL (80-115)
[2017-11-12] MEDS: METOCLOPRAMIDE 5 MG TAB PO ×2 (05:57→14:00)
[2017-11-12] MEDS: HumaLOG INSULIN (NovoLOG) PER UNIT SC ×2 (05:58→12:19)
[2017-11-12 06:34] LABS: HEMATOCRIT 28.3 % (36.0-47.0); HEMOGLOBIN 9.3 g/dl (12.0-16.0); MEAN CORPUSCULAR HEMOGLOBIN 28.4 pg (27.0-33.0); MEAN CORPUSCULAR HGB CONC 32.9 g/dl (32.0-36.5); MEAN CORPUSCULAR VOLUME 86.5 fl (80.0-96.0); PLATELET COUNT, AUTOMATED 151 10^3/uL (150-450); RED BLOOD COUNT 3.27 10^6/uL (4.00-5.40); WHITE BLOOD COUNT 10.2 10^3/uL (4.0-10.0)
[2017-11-12] MEDS: metroNIDAZOLE 500 MG in APPROPRIATE DILUENT 1 EA IV ×2 (06:34→12:19)
[2017-11-12 06:56] LABS: ANION GAP 8 MEQ/L (8-16); BLOOD UREA NITROGEN 36 MG/DL (7-18); CALCIUM LEVEL 8.4 MG/DL (8.8-10.2); CARBON DIOXIDE LEVEL 25 MEQ/L (21-32); CHLORIDE LEVEL 104 MEQ/L (98-107); CREATININE FOR GFR 1.75 MG/DL (0.55-1.30); GLOMERULAR FILTRATION RATE 31.2 (>45); GLUCOSE, FASTING 290 MG/DL (70-100); POTASSIUM SERUM 4.2 MEQ/L (3.5-5.1); SODIUM LEVEL 137 MEQ/L (136-145)
[2017-11-12] MEDS: ATORVASTATIN 20 MG TAB PO (08:35)
[2017-11-12] MEDS: SERTRALINE HCL 50 MG TAB PO (08:35)
[2017-11-12] MEDS: OMEPRAZOLE 20 MG CAP PO (08:35)
[2017-11-12] MEDS: GABAPENTIN 100 MG CAP PO (08:35)
[2017-11-12] MEDS: LACTOBACILLUS ACIDOPHILUS CAP (BACID) PO ×2 (08:35→12:20)
[2017-11-12] MEDS: GABAPENTIN 300 MG CAP PO (08:35)
[2017-11-12] MEDS: FUROSEMIDE 40 MG TAB PO (08:35)
[2017-11-12] MEDS: VITAMIN D 1,000 INTERNATIONAL UNITS TABLET PO (08:36)
[2017-11-12] MEDS: CARVedilol 12.5 MG TAB PO (08:36)
[2017-11-12] MEDS: rOPINIRole 1MG TAB PO (08:36)
[2017-11-12] MEDS: LOSARTAN 50 MG TAB PO (08:37)
[2017-11-12] MEDS: ENOXAPARIN 40 MG/0.4 ML SYRINGE (J1650) SC (08:39)
[2017-11-12] MEDS: LEVEMIR (INSULIN DETEMIR) 1 UNITS/0.01ML SC (08:39)
[2017-11-12] MEDS ORDERED: LEVEMIR (INSULIN DETEMIR) 1 UNITS/0.01ML SC (09:00)
[2017-11-12 11:44] LABS: BEDSIDE GLUCOSE 346 MG/DL (80-115)
[2017-11-12] MEDS: POTASSIUM CHLORIDE 10 MEQ SR TABLET PO (12:20)
== END 2017-11-12 14:38 | disposition home health service (06) | DRG 392 ==
LOC: M ED INP 11-09 03:54 → M MSPAV 11-09 05:11 → M ED 22:36
DX: K57.32 Diverticulitis of large intestine without perforation or abscess without bleeding (principal); G47.33 Obstructive sleep apnea (adult) (pediatric); I10 Essential (primary) hypertension; J44.9 Chronic obstructive pulmonary disease, unspecified; E11.9 Type 2 diabetes mellitus without complications; E78.00 Pure hypercholesterolemia, unspecified; F32.9 Major depressive disorder, single episode, unspecified; Z90.710 Acquired absence of both cervix and uterus; Z79.82 Long term (current) use of aspirin; Z79.4 Long term (current) use of insulin; Z79.899 Other long term (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 therapy; Z88.0 Allergy status to penicillin; Z99.81 Dependence on supplemental oxygen

== ENCOUNTER → 2017-12-18 | Outpatient (REF) | payer MEDICARE | LOC: M LAB REF 17:52 | DX: N39.0 Urinary tract infection, site not specified (principal) | CPT/HCPCS: 87186 ==

== ENCOUNTER → 2018-01-21 | Outpatient (CLI) | payer MEDICARE | LOC: M RAD 13:01 | DX: I73.9 Peripheral vascular disease, unspecified (principal) | CPT/HCPCS: 93926 ==

== ENCOUNTER → 2018-02-03 | Outpatient (REF) | payer MEDICARE | LOC: M LAB REF 18:09 | DX: M86.171 Other acute osteomyelitis, right ankle and foot (principal); E11.621 Type 2 diabetes mellitus with foot ulcer | CPT/HCPCS: 88305 ==

== ENCOUNTER → 2018-02-06 | Outpatient (REF) | payer MEDICARE ==
[2018-02-06 16:53] LABS: HEMATOCRIT 32.2 % (36.0-47.0); HEMOGLOBIN 10.6 g/dl (12.0-15.5); MEAN CORPUSCULAR HEMOGLOBIN 28.7 pg (27.0-33.0); MEAN CORPUSCULAR HGB CONC 32.9 g/dl (32.0-36.5); MEAN CORPUSCULAR VOLUME 87.3 fl (80.0-96.0); PLATELET COUNT, AUTOMATED 207 10^3/uL (150-450); RED BLOOD COUNT 3.69 10^6/uL (4.00-5.40); RED CELL DISTRIBUTION WIDTH 13.8 % (11.5-14.5); WHITE BLOOD COUNT 13.1 10^3/uL (4.0-10.0)
[2018-02-06 17:02] LABS: ALBUMIN 3.6 GM/DL (3.2-5.2); ALBUMIN/GLOBULIN RATIO 0.97 (1.00-1.93); ALKALINE PHOSPHATASE 85 U/L (45-117); ALT/SGPT 24 U/L (12-78); ANION GAP 7 MEQ/L (8-16); AST/SGOT 16 U/L (7-37); BILIRUBIN,TOTAL 0.9 MG/DL (0.2-1.0); BLOOD UREA NITROGEN 49 MG/DL (7-18); C REACTIVE PROTEIN QUANTITATIV 3.24 MG/DL (0.00-0.30); CALCIUM LEVEL 8.8 MG/DL (8.8-10.2); CARBON DIOXIDE LEVEL 26 MEQ/L (21-32); CHLORIDE LEVEL 104 MEQ/L (98-107); CREATININE FOR GFR 1.84 MG/DL (0.55-1.30); GLOMERULAR FILTRATION RATE 29.3 (>45); GLUCOSE, FASTING 72 MG/DL (70-100); POTASSIUM SERUM 4.4 MEQ/L (3.5-5.1); SODIUM LEVEL 137 MEQ/L (136-145); TOTAL PROTEIN 7.3 GM/DL (6.4-8.2)
[2018-02-06 17:07] LABS: ESTIMATED AVERAGE GLUCOSE 160 MG/DL (60-110); HEMOGLOBIN A1c 7.2 %
[2018-02-06 18:22] LABS: ERYTHROCYTE SEDIMENTATION RATE 86 mm/hr (0-30)
== END ==
LOC: M LAB REF 16:07
DX: E11.621 Type 2 diabetes mellitus with foot ulcer (principal)
CPT/HCPCS: 80053

== ENCOUNTER → 2018-04-28 | Outpatient (CLI) | payer MEDICARE ==
[2018-04-28 20:08] LABS: APPEARANCE, URINE CLOUDY (CLEAR); BACTERIA, URINE AUTO 3+ (NEGATIVE); BILIRUBIN, URINE AUTO NEGATIVE (NEGATIVE); BLOOD, URINE BLOOD 1+ (NEGATIVE); COLOR, URINE YELLOW (YELLOW); GLUCOSE, URINE (UA) AUTO NEGATIVE (NEGATIVE); KETONE, URINE AUTO NEGATIVE (NEGATIVE); LEUKOCYTE ESTERASE, URINE AUTO 3+ (NEGATIVE); MUCUS, URINE SMALL (NEGATIVE); NITRITE, URINE AUTO NEGATIVE (NEGATIVE); PROTEIN, URINE AUTO 2+ mg/dL (NEGATIVE); RBC, URINE AUTO 1 /HPF (0-3); SPECIFIC GRAVITY URINE AUTO 1.013 (1.002-1.035); SQUAMOUS EPITHELIAL CELL UR AU 1 /HPF (0-6); UROBILINOGEN, URINE AUTO 0.2 mg/dL (0.0-2.0); WBC, URINE AUTO TNTC /HPF (0-3)
== END ==
LOC: M LRY 16:56
DX: N39.0 Urinary tract infection, site not specified (principal)
CPT/HCPCS: 36415

== ENCOUNTER → 2018-11-02 | Outpatient (REF) | payer MEDICARE ==
[~2018-11-02] MED LIST changes: +ASPI81TA85 PO; -ATOR40TA75; +ATOR40TA75 PO; +BACITAB PO; -CARV25TA; +CARV25TA PO; +CEPH500C PO; +CIPR-249 PO; +CLON-412 PO; +CLONI1TA PO; +COZA50TA PO; +FERR32TA PO; +FLAG500T PO; -FURO40TA2; +FURO40TA2 PO; +GABA-1171 PO; +GABA-843 PO; +GABA-845 PO; -HUMU500S2; +HUMU500S2 SQ; +HYDR-3719 PO; +LOSA100T5 PO; +LOSA50TA88 PO; +METO5TAB2 PO; +NEUR100C PO; +NITR4TASL SL; -OMEP40CA2; +OMEP40CA2 PO; -POTA1TAB23; +POTA1TAB23 PO; -ROPI1TAB; +ROPI1TAB PO; +SANT250O8 TOP; -SERT-155; +SERT-155 PO; +SPIR-10 PO; -SPIR25TA2; -TRAZ1TAB14; +TRAZ1TAB14 PO; +VITA100066 PO
[2018-11-02 11:42] LABS: HEMATOCRIT 30.5 % (36.0-47.0); HEMOGLOBIN 9.6 g/dl (12.0-15.5); MEAN CORPUSCULAR HGB CONC 31.5 g/dl (32.0-36.5); MEAN CORPUSCULAR VOLUME 85.9 fl (80.0-96.0); PLATELET COUNT, AUTOMATED 187 10^3/uL (150-450); RED BLOOD COUNT 3.55 10^6/uL (4.00-5.40); WHITE BLOOD COUNT 7.1 10^3/uL (4.0-10.0)
[2018-11-02 11:59] LABS: CALCIUM LEVEL 7.8 MG/DL (8.8-10.2); CREATININE FOR GFR 1.25 MG/DL (0.55-1.30); GLOMERULAR FILTRATION RATE 45.8 (>45); POTASSIUM SERUM 4.3 MEQ/L (3.5-5.1)
[2018-11-02 12:02] LABS: INR 1.06
== END ==
LOC: M LAB REF 10:42
PROVIDERS: ATTEND Internal Medicine
DX: I48.91 Unspecified atrial fibrillation (principal); E87.6 Hypokalemia

== ENCOUNTER → 2018-12-14 | Outpatient (REF) | payer MEDICARE ==
[2018-12-14 10:50] LABS: INR 2.2; PROTHROMBIN TIME 24.8 SECONDS (12.1-14.4)
== END ==
LOC: M LAB REF 10:15
PROVIDERS: ATTEND Internal Medicine
DX: I48.91 Unspecified atrial fibrillation (principal); E11.9 Type 2 diabetes mellitus without complications; N18.9 Chronic kidney disease, unspecified

== ENCOUNTER 2018-12-30 20:17 | Emergency (ER) | payer MEDICARE ==
[~2018-12-30] VITALS: Ht 154.9 cm; Wt 91.4 kg
[2018-12-30] MEDS ORDERED: FUROSEMIDE 40 MG/4 ML VIAL (J1940) IV ONE (21:00)
[2018-12-30 21:17] LABS: BASO % 0.4 % (0.0-1.0); EOS # 0.1 10^3/uL (0.0-0.50); EOS % 1.2 % (0.0-3.0); HEMATOCRIT 31.4 % (36.0-47.0); HEMOGLOBIN 9.8 g/dl (12.0-15.5); LYMPH % 18.6 % (24.0-44.0); MEAN CORPUSCULAR HEMOGLOBIN 25.7 pg (27.0-33.0); MEAN CORPUSCULAR HGB CONC 31.2 g/dl (32.0-36.5); MEAN CORPUSCULAR VOLUME 82.2 fl (80.0-96.0); MONO # 0.6 10^3/uL (0.0-0.8); MONO % 5.6 % (0.0-5.0); NEUTROPHILS # 7.8 10^3/uL (1.8-7.7); NEUTROPHILS % 73.6 % (36.0-66.0); PLATELET COUNT, AUTOMATED 237 10^3/uL (150-450); RED BLOOD COUNT 3.82 10^6/uL (4.00-5.40); WHITE BLOOD COUNT 10.6 10^3/uL (4.0-10.0)
[2018-12-30 21:51] LABS: BLOOD UREA NITROGEN 32 MG/DL (7-18); CALCIUM LEVEL 8.4 MG/DL (8.8-10.2); CARBON DIOXIDE LEVEL 27 MEQ/L (21-32); CHLORIDE LEVEL 100 MEQ/L (98-107); CPK CREATINE PHOSPHOKINASE 190 U/L (26-192); CREATININE FOR GFR 1.68 MG/DL (0.55-1.30); GLOMERULAR FILTRATION RATE 32.5 (>45); GLUCOSE, FASTING 514 MG/DL (70-100); MB/CK RELATIVE INDEX 3.21 (< OR =4); NT-PRO BNP 1638 PG/ML (<125); POTASSIUM SERUM 4.5 MEQ/L (3.5-5.1); SODIUM LEVEL 134 MEQ/L (136-145); TROPONIN I < 0.02 NG/ML (< 0.10)
--- NOTE | 2018-12-30 21:52 | ECGEPIP ---
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
[2018-12-30] MEDS ORDERED: HumaLOG INSULIN (NovoLOG) PER UNIT SC STA (22:01)
[2018-12-30 22:43] VITALS: BP 170/80
--- NOTE | 2018-12-31 09:10 | REP ---
Chest one-view HISTORY: shortness of breath Comparison: 11/11/2017 Linear densities are present in the the left lower lobe consistent with atelectasis or scar. The right lung is clear. The heart is normal in size. The pulmonary vasculature is normal in appearance. A heart valve is present. Impression: Left lower lobe atelectasis or scar. Electronically Signed by Simon Cervantes MD 12/31/2018 09:02 A
== END 2018-12-30 22:45 | disposition home or self-care (01) ==
LOC: M ED 20:17
DX: E11.65 Type 2 diabetes mellitus with hyperglycemia (principal); E11.40 Type 2 diabetes mellitus with diabetic neuropathy, unspecified; R60.0 Localized edema; I10 Essential (primary) hypertension; E78.5 Hyperlipidemia, unspecified; Z79.82 Long term (current) use of aspirin; Z79.4 Long term (current) use of insulin; Z79.899 Other long term (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 therapy; Z88.0 Allergy status to penicillin
CPT/HCPCS: 36415; 71045; 80048; 82550; 82553; 83880; 84484; 85025; 93005; 93041; 94760; 96374; 99284; J1940

== ENCOUNTER 2019-03-29 08:53 | Outpatient (RCR) | payer MEDICARE ==
--- NOTE | 2019-03-10 15:43 | CARECAPL ---
Assessment Account #s: Initial Assessment General Diagnoses: CABG, AVR Date of event: Sep 15, 2018 Physician: Luz James MD Allergies: Coded Allergies: Penicillins (Verified Allergy, Unknown, 12/30/18) Date Entered Program: Mar 10, 2019 Risk strat for cardiac event: High Exercise Date: Mar 10, 2019 Assessment: Initial Assessment Exercise Prescription Plan TO EDUCATE AND BUILD ENDURANCE THROUGH MONITORED EXERCISE Modalities initiated: Cardio-Strider (WILL ADD), Nustep (WILL ADD), Arm Aerometer (WILL ADD), Dumbells (WILL ADD), Recumbent Bike (WILL ADD) Frequency: 3 Duration (Minutes) 30-60 minutes total exercise a day. 8-10 work intervals in minutes. 5 MINUTES PRN rest intervals in minutes. Functional Capacity Goal Sustained Metabolic Equivalent of a task (MET) goal of 1.75-2.25 for 15-20 minutes. Intensity: 3-Moderate Progression (METS) Increase by: 0.5 METS every: 5 sessions TOLERATED Angina with ex: No Target Heart Rate REST +35-40 Resistance Training: Yes Weight (pounds): 1 Reps: 6-8 Hypertension: Yes Hypertension controlled with: Medication Resting 150/66 Medications Scheduled Aspirin (Aspir 81), 81 MG PO QHS, (Reported) Atorvastatin Calcium (Atorvastatin Calcium), 40 MG PO DAILY, (Reported) Carvedilol (Carvedilol), 25 MG PO BID, (Reported) Ferrous Gluconate (Ferrous Gluconate), 324 MG PO BID, (Reported) Furosemide (Furosemide), 40 MG PO BID, (Reported) Insulin Human Regular (Humulin R U-500 Kwikpen), 60 UNIT SQ DAILY, (Reported) Losartan Potassium (Losartan Potassium), 50 MG PO DAILY, (Reported) Omeprazole (Omeprazole), 40 MG PO DAILY, (Reported) Potassium Chloride (Potassium Chloride), 10 MEQ PO BID, (Reported) Ropinirole HCl (Ropinirole HCl), 1 MG PO QPM, (Reported) Sertraline HCl (Sertraline HCl), 50 MG PO BID, (Reported) Spironolactone (Spironolactone), 25 MG PO QHS, (Reported) Warfarin Sodium (Warfarin Sodium), 2.5 MG PO DAILY, (Reported) Warfarin Sodium (Warfarin Sodium), 1 TAB PO DAILY, (Reported) Scheduled PRN Trazodone HCl (Trazodone HCl), 150 MG PO QHS PRN for SLEEP, (Reported) Discontinued Medications Cholecalciferol (Vitamin D3) (Vitamin D3), 1,000 UNIT PO DAILY, (Reported) Discontinued Reason: Pt states not taking Ciprofloxacin HCl (Cipro), 500 MG PO BID Discontinued Reason: Pt states not taking Clonidine HCl (Clonidine HCl), 0.1 MG PO QHS, (Reported) Discontinued Reason: Pt states not taking Collagenase Clostridium Hist. (Santyl), 1 DOSE TOP DAILY, (Reported) Discontinued Reason: Pt states not taking Gabapentin (Gabapentin), 300 MG PO TID, (Reported) Discontinued Reason: Pt states not taking Gabapentin (Neurontin), 100 MG PO TID, (Reported) Discontinued Reason: Pt states not taking Hydrocodone/Acetaminophen (Hydrocodone-Acetamin 10-325 mg), 1 TAB PO TID PRN for PAIN, (Reported) Discontinued Reason: Pt states not taking Insulin Human Regular (Humulin R U-500 Kwikpen), 100 UNIT SQ BID, (Reported) Discontinued Reason: Pt states not taking L.acidoph/L.bulg/B.bif/S.therm (Bacid Caplet), 1 TAB PO WM Discontinued Reason: Pt states not taking Metoclopramide HCl (Metoclopramide HCl), 5 MG PO Q8H PRN for NAUSEA OR VOMITING Discontinued Reason: Pt states not taking Metronidazole (Flagyl), 500 MG PO Q8H Discontinued Reason: Pt states not taking Nitroglycerin (Nitrostat), 0.4 MG SL NITRO, (Reported) Discontinued Reason: Pt states not taking Med Change: No Intervention Education: Self pulse, Ex safety, S/S to report, Low NA diet, BP medication, RPE Scale, Equipment orientation, warm up/cool down, Understand BP, Physical Active Target Goals Individual exercise Rx (1) BP 140/90 or 130/80 if DM or CKD (1) Aerobic active 30+min 5 days per week (1) Nutrition Date: Mar 10, 2019 Assessment: Initial Assessment Lipids Total Cholesterol (309), High Density Lipids (HDL) (54), Low Density Lipids (LDL) (251), Triglycerides (152), Lipid med/supplement (ATORVASTATIN) Lipid- med/supplement ATORVASTATIN 40 MG DAILY Med Change: No Diabetes Diabetes: Yes HbA1c (%): 7.1 Diabetes medication HUMULIN R U 500 Monitor Blood Sugar at home: Yes Frequency AC AND HS Medication Change: No Blood sugar in range: Yes Weight Management Weight (lbs): 187.2 Height (inches): 61.5 Waist Circumference (Inches): 42 BMI: 24.4 Weight goal: 180 Special Diet: low salt, low-fat Alcohol: special Alcohol Type: wine Alcohol Amount: 1 (MONTHLY) Diet Access Tool: Rate your plate Score: 57 Current Weight (pounds): 187.2 Weight Goal 180 Intervention Cylinder Dyer Consult: Yes (WILL SEE SPANISH INSTRUCTOR WHILE IN PROGRAM) Nurse/patient discussion: Yes Dietary Goals TO MAKE HEART HEALTHY CHOICES Diet Class: Yes Referral to Diabetes education: No Referral to lipid clinic: No Referral to weight mangement p: No Education S&S hypo/hyper glycemia, Relate Diabetes in CAD, Eating Healthy Target goal LDL-C<100 if triglycerides are >200 Non-HDL-C should be <130 (1) LDL-C<70 for high risk patients (4) HbA1c<7% (1) BMI<25 Waist cir<40in M/<35in F (1) Education Date: Mar 10, 2019 Assessment: Initial Assessment Learning Barriers: ready Knowledge Test Score: 10 Family Support: Yes Tobacco use: No Tobacco Use Smokeless tobacco: No Intervention Referral to smoking cessation: No Individual education and couns: No Tobacco Adjunct: No Education class schedule given: No Attended education classes: No Education: CAD, Risk factors, med compliance, cardiac A&P, Angina S/S, Sexuality Target Goals Complete cessation of tobacco use (1). Psychosocial Date: Mar 10, 2019 Assessment: Initial Assessment Psych Test (Initial/Discharge) Tool Used: CESD Score: 15 Intervention Physician Consult: No Physician Referral: No Psychotropic medication TRAZODONE Med Change: No Stress Management Class: No Uses Stress Management Skills: Yes Education Education: Coping Techniques, S/S depression, Relaxation Techniques Target Goal Assess presence or absence of depression using a valid screening tool (1). Maximize coping skills (2). Positive support system (2). Patient/Program Goal Preventative Medication: Yes Aspirin, Yes Beta blockade, Yes Statin/OTR lipid Lowering Fall Risk Assess: Yes Assisstive Device: walker (PATIENT IS FALL RISK) Provider Assessment Session Number: 1 Provider Assessment: Proceed with rehab Zay Roman RN Mar 10, 2019 15:43
[~2019-03-29 08:53] MED LIST changes: +FERR325T16 PO; +WARF-18 PO; +WARF-23 PO
== END 2019-03-31 ==
LOC: M CR 08:53
PROVIDERS: ATTEND Internal Medicine Cardiovascular Disease
DX: Z95.1 Presence of aortocoronary bypass graft (principal)

== ENCOUNTER → 2019-04-14 | Outpatient (CLI) | payer MEDICARE ==
[2019-04-14 15:49] LABS: CALCIUM LEVEL 9.5 MG/DL (8.8-10.2); CREATININE FOR GFR 1.76 MG/DL (0.55-1.30); GLOMERULAR FILTRATION RATE 30.8 (>45); POTASSIUM SERUM 4.1 MEQ/L (3.5-5.1)
== END ==
LOC: M LAB 11:59
PROVIDERS: ATTEND Physician Assistant
DX: E11.65 Type 2 diabetes mellitus with hyperglycemia (principal)

== ENCOUNTER 2019-04-22 10:11 | Outpatient (RCR) | payer MEDICARE ==
--- NOTE | 2019-04-07 10:51 | CARECAPL ---
Assessment Account #s: Re-Assessment I General Diagnoses: CABG, AVR Date of event: Sep 15, 2018 Physician: Luz James MD Allergies: Coded Allergies: Penicillins (Verified Allergy, Unknown, 12/30/18) Date Entered Program: Mar 10, 2019 Risk strat for cardiac event: High Exercise Date: Apr 07, 2019 Assessment: Re-Assessment I Exercise Prescription Plan to build strength and endurance through a monitored exercise program and to educate about cardiac disease and risk factors Modalities initiated: Treadmill (2 sessions- 8 minutes each mts 2.8 rpe 4 level 3), Cardio-Strider (level2 mts 2.7 rpe 4 8 minutes), Nustep, Arm Aerometer (1.0 mts 1.5 rpe 4 6 minutes), Dumbells Duration (Minutes) minutes total exercise a day. work intervals in minutes. rest intervals in minutes. Functional Capacity Goal Sustained Metabolic Equivalent of a task (MET) goal of for minutes. Progression (METS) Increase by: METS every: sessions Resistance Training: Yes Weight (pounds): 1 Reps: 6-8 Medications Scheduled Aspirin (Aspir 81), 81 MG PO QHS, (Reported) Atorvastatin Calcium (Atorvastatin Calcium), 40 MG PO DAILY, (Reported) Carvedilol (Carvedilol), 25 MG PO BID, (Reported) Ferrous Gluconate (Ferrous Gluconate), 324 MG PO BID, (Reported) Furosemide (Furosemide), 40 MG PO BID, (Reported) Insulin Human Regular (Humulin R U-500 Kwikpen), 60 UNIT SQ DAILY, (Reported) Losartan Potassium (Losartan Potassium), 50 MG PO DAILY, (Reported) Omeprazole (Omeprazole), 40 MG PO DAILY, (Reported) Potassium Chloride (Potassium Chloride), 10 MEQ PO BID, (Reported) Ropinirole HCl (Ropinirole HCl), 1 MG PO QPM, (Reported) Sertraline HCl (Sertraline HCl), 50 MG PO BID, (Reported) Spironolactone (Spironolactone), 25 MG PO QHS, (Reported) Warfarin Sodium (Warfarin Sodium), 2.5 MG PO DAILY, (Reported) Warfarin Sodium (Warfarin Sodium), 1 TAB PO DAILY, (Reported) Scheduled PRN Trazodone HCl (Trazodone HCl), 150 MG PO QHS PRN for SLEEP, (Reported) Current BP 130/80 Med Change: No Intervention Education: Self pulse, BP medication (compliance with medications), RPE Scale (how to assess difficulty), Equipment orientation (review of equipment), warm up/cool down (importance to prevent injury) Education Goals Met: No (progressing toward goals) Target Goals Individual exercise Rx (1) BP 140/90 or 130/80 if DM or CKD (1) Aerobic active 30+min 5 days per week (1) Nutrition Date: Apr 07, 2019 Assessment: Re-Assessment I Diabetes Diabetes: Yes Diabetes medication insulin Monitor Blood Sugar at home: Yes Random Blood Sugar: 110 Current Weight (pounds): 189.8 Weight Goal 150 Referral to Diabetes education: Yes (will refer to our program Lashaun Blanca RD) Referral to lipid clinic: No Referral to weight mangement p: No Education Relate Diabetes in CAD, Eating Healthy Education Goals Met: No (progressing toward goals) Target goal LDL-C<100 if triglycerides are >200 Non-HDL-C should be <130 (1) LDL-C<70 for high risk patients (4) HbA1c<7% (1) BMI<25 Waist cir<40in M/<35in F (1) Education Date: Apr 07, 2019 Assessment: Re-Assessment I Learning Barriers: vision (legally blind) Family Support: Yes Tobacco use: No Intervention Education class schedule given: Yes Education Goals Met: No (progressing toward goals) Target Goals Complete cessation of tobacco use (1). Target Goal Assess presence or absence of depression using a valid screening tool (1). Maximize coping skills (2). Positive support system (2). Destinee Kohli RN Apr 07, 2019 10:51
--- NOTE | 2019-04-08 14:31 | CARECAPL ---
General Date of event: Mar 16, 2019 Physician: Reinaldo Kelsey Allergies: Coded Allergies: Penicillins (Verified Allergy, Unknown, 12/30/18) Date Entered Program: Apr 08, 2019 Exercise Date: Apr 08, 2019 Exercise Prescription Plan to provide a monitored exercise program to build strength and endurance, to educate about the risks of cardiac disease Duration (Minutes) 30-60 minutes total exercise a day. 8-10 work intervals in minutes. prn rest intervals in minutes. Functional Capacity Goal Sustained Metabolic Equivalent of a task (MET) goal of 2.5-3.5 for 15-20 minutes. Progression (METS) Increase by: .5 METS every: 1.-2 sessions Target Heart Rate rest +35-40 Resting 148/67 Meds see below Medications Scheduled Aspirin (Aspir 81), 81 MG PO QHS, (Reported) Atorvastatin Calcium (Atorvastatin Calcium), 40 MG PO DAILY, (Reported) Carvedilol (Carvedilol), 25 MG PO BID, (Reported) Ferrous Gluconate (Ferrous Gluconate), 324 MG PO BID, (Reported) Furosemide (Furosemide), 40 MG PO BID, (Reported) Insulin Human Regular (Humulin R U-500 Kwikpen), 60 UNIT SQ DAILY, (Reported) Losartan Potassium (Losartan Potassium), 50 MG PO DAILY, (Reported) Omeprazole (Omeprazole), 40 MG PO DAILY, (Reported) Potassium Chloride (Potassium Chloride), 10 MEQ PO BID, (Reported) Ropinirole HCl (Ropinirole HCl), 1 MG PO QPM, (Reported) Sertraline HCl (Sertraline HCl), 50 MG PO BID, (Reported) Spironolactone (Spironolactone), 25 MG PO QHS, (Reported) Warfarin Sodium (Warfarin Sodium), 2.5 MG PO DAILY, (Reported) Warfarin Sodium (Warfarin Sodium), 1 TAB PO DAILY, (Reported) Scheduled PRN Trazodone HCl (Trazodone HCl), 150 MG PO QHS PRN for SLEEP, (Reported) Target Goals Individual exercise Rx (1) BP 140/90 or 130/80 if DM or CKD (1) Aerobic active 30+min 5 days per week (1) Nutrition Date: Apr 08, 2019 Lipid- med/supplement `Atorvastatin calcium Diabetes medication glipizide Frequency daily Intervention Dietary Goals smaller protions and better choices Target goal LDL-C<100 if triglycerides are >200 Non-HDL-C should be <130 (1) LDL-C<70 for high risk patients (4) HbA1c<7% (1) BMI<25 Waist cir<40in M/<35in F (1) Education Date: Apr 08, 2019 Family Support: Yes (daughter) Tobacco use: No Quit: >6 months Tobacco Use Smokeless tobacco: No Target Goals Complete cessation of tobacco use (1). Psychosocial Date: Apr 08, 2019 Target Goal Assess presence or absence of depression using a valid screening tool (1). Maximize coping skills (2). Positive support system (2). Destinee Kohli RN Apr 08, 2019 14:31
--- NOTE | 2019-05-05 10:21 | CARECAPL ---
Assessment Account #s: Re-Assessment II General Diagnoses: CABG, AVR Date of event: Sep 15, 2018 Physician: Luz James MD Allergies: Coded Allergies: Penicillins (Verified Allergy, Unknown, 12/30/18) Date Entered Program: Mar 10, 2019 Risk strat for cardiac event: High Exercise Assessment: Re-Assessment II Stages of change: Contemplate Exercise Prescription Modalities initiated: Nustep (L4 mts 3.2 rpe 2 total 24 minutes (2 sessions)), Arm Aerometer (1.0 mts 1.5 rpe 3 8 minutes) Duration (Minutes) 30 - 60 minutes total exercise a day. 15 - 20 work intervals in minutes. PRN rest intervals in minutes. Functional Capacity Goal Sustained Metabolic Equivalent of a task (MET) goal of 3.0-4.0 for 15-20 minutes . Intensity: 3-Moderate Progression (METS) Increase by: METS every: sessions Angina with ex: No Resistance Training: Yes Weight (pounds): 1 Reps: 6-8 Resting 138/78 Peak Exercise BP 160/80 Meds see below Medications Scheduled Aspirin (Aspir 81), 81 MG PO QHS, (Reported) Atorvastatin Calcium (Atorvastatin Calcium), 40 MG PO DAILY, (Reported) Carvedilol (Carvedilol), 25 MG PO BID, (Reported) Ferrous Gluconate (Ferrous Gluconate), 324 MG PO BID, (Reported) Furosemide (Furosemide), 40 MG PO BID, (Reported) Insulin Human Regular (Humulin R U-500 Kwikpen), 60 UNIT SQ DAILY, (Reported) Losartan Potassium (Losartan Potassium), 50 MG PO DAILY, (Reported) Omeprazole (Omeprazole), 40 MG PO DAILY, (Reported) Potassium Chloride (Potassium Chloride), 10 MEQ PO BID, (Reported) Ropinirole HCl (Ropinirole HCl), 1 MG PO QPM, (Reported) Sertraline HCl (Sertraline HCl), 50 MG PO BID, (Reported) Spironolactone (Spironolactone), 25 MG PO QHS, (Reported) Warfarin Sodium (Warfarin Sodium), 2.5 MG PO DAILY, (Reported) Warfarin Sodium (Warfarin Sodium), 1 TAB PO DAILY, (Reported) Scheduled PRN Trazodone HCl (Trazodone HCl), 150 MG PO QHS PRN for SLEEP, (Reported) Current BP 110/64 after exercising Med Change: No Intervention Home exercise: Type (will be providing education about HEP this week) Education: Self pulse (finger placement, seconds tohold), Ex safety (importance of hydrations and safety of equipment.), S/S to report (dizziness, abnormal shortness of breath, unsteady, chest discomfort), BP medication (compliance and checking daily at home), RPE Scale (1-5 scale for exercise difficulty), Equipment orientation (orientation to safety and use of equipment(continues through program)), warm up/cool down (to prevent injury), Understand BP (understanding baseline and exercise pressure) Education Goals Met: No (progressing toward goals. Poor attendance d/t late to workout session and high blood sugars) Target Goals Individual exercise Rx (1) BP 140/90 or 130/80 if DM or CKD (1) Aerobic active 30+min 5 days per week (1) Nutrition Date: May 05, 2019 Assessment: Re-Assessment II Stages of change: relapse Diabetes Diabetes: Yes Medication Change: No Random Blood Sugar: 300 Blood sugar in range: No (prior session blood sugar >400. call placed to family , unable to contact. Dr James nofitied of consistant high glucose and policy not to exercise) Current Weight (pounds): 189 Weight Goal 150 Intervention Manager Credit Consult: Yes Nurse/patient discussion: Yes Dietary Goals better blood glucose control Diet Class: Yes (saw general technician on 03/29/2019) Referral to Diabetes education: Yes (will be referred to diabetic clinic at [facility]) Referral to lipid clinic: No Referral to weight mangement p: No Education S&S hypo/hyper glycemia (reviewed s/s of high/low blood sugar), Relate Diabetes in CAD (in crease risk of heart disease d/t high glucose) Education Goals Met: No (not progressing well. Consistant high blood sugars. Dr Guardado not available. Dr James has been notified of high blood glucose and not able to exercise pt) Target goal LDL-C<100 if triglycerides are >200 Non-HDL-C should be <130 (1) LDL-C<70 for high risk patients (4) HbA1c<7% (1) BMI<25 Waist cir<40in M/<35in F (1) Education Date: May 05, 2019 Assessment: Re-Assessment II Learning Barriers: vision (legally blind) Education Goals Met: No (will be educated on return to program on regular basis) Target Goals Complete cessation of tobacco use (1). Psychosocial Date: May 05, 2019 Assessment: Re-Assessment II Stages of change: relapse Stress Management Class: No Uses Stress Management Skills: No Education Goals Met: No (poor attendance) Target Goal Assess presence or absence of depression using a valid screening tool (1). Maximize coping skills (2). Positive support system (2). Assisstive Device: cane Provider Assessment Session Number: 6 Provider Assessment: Please add/change: (will be monitoring carefully blood glucose prior to arrival. Better control with glucose needed to succeed in program. Poor attendance) Destinee Kohli RN May 05, 2019 10:21
== END 2019-05-01 ==
LOC: M CR 10:11
PROVIDERS: ATTEND Internal Medicine Cardiovascular Disease
DX: Z95.1 Presence of aortocoronary bypass graft (principal)

== ENCOUNTER 2019-05-19 13:15 | Outpatient (RCR) | payer MEDICARE ==
--- NOTE | 2019-05-31 10:09 | CARECAPL ---
Assessment Account #s: Re-Assessment II (3) General Diagnoses: CABG, AVR Date of event: Sep 15, 2018 Physician: Luz James MD Allergies: Coded Allergies: Penicillins (Verified Allergy, Unknown, 12/30/18) Date Entered Program: Mar 10, 2019 Risk strat for cardiac event: High Exercise Date: May 19, 2019 Assessment: Re-Assessment II (3) Stages of change: Contemplate Exercise Prescription Plan educate on cardiovascular disease and increase endurance, flexibility and strengthen through monitored exercise. Modalities initiated: Nustep (x2 sessions Resistance of 3 for 12 minutes Mets 3.3 RPE 3), Arm Aerometer (Resistance of 1.5 for 8 minutes mets 1.6 RPE 4), Dumbells (1lb 1 set of 12 reps RPE 3) Frequency: 1-2 Duration (Minutes) 30 - 60 minutes total exercise a day. 15 - 20 work intervals in minutes. PRN rest intervals in minutes. Functional Capacity Goal Sustained Metabolic Equivalent of a task (MET) goal of 3.0-4.0 for 15-20 minutes. Intensity: 3-Moderate Progression (METS) Increase by: 0.5 METS every: 3-5 sessions Angina with ex: No Target Heart Rate rest + 35-40 per beta halle therapy Resistance Training: Yes Weight (pounds): 1 Reps: 8-12 Hypertension: Yes Hypertension controlled with: Medication Resting 158/78 Peak Exercise BP 140/80 Meds carvedilol and losartan Medications Scheduled Aspirin (Aspir 81), 81 MG PO QHS, (Reported) Atorvastatin Calcium (Atorvastatin Calcium), 40 MG PO DAILY, (Reported) Carvedilol (Carvedilol), 25 MG PO BID, (Reported) Ferrous Gluconate (Ferrous Gluconate), 324 MG PO BID, (Reported) Furosemide (Furosemide), 40 MG PO BID, (Reported) Insulin Human Regular (Humulin R U-500 Kwikpen), 0 SQ PC, (Reported) Losartan Potassium (Losartan Potassium), 50 MG PO DAILY, (Reported) Omeprazole (Omeprazole), 40 MG PO DAILY, (Reported) Potassium Chloride (Potassium Chloride), 10 MEQ PO BID, (Reported) Ropinirole HCl (Ropinirole HCl), 1 MG PO QPM, (Reported) Sertraline HCl (Sertraline HCl), 50 MG PO BID, (Reported) Spironolactone (Spironolactone), 25 MG PO QHS, (Reported) Warfarin Sodium (Warfarin Sodium), 2.5 MG PO DAILY, (Reported) Warfarin Sodium (Warfarin Sodium), 1 TAB PO DAILY, (Reported) Scheduled PRN Trazodone HCl (Trazodone HCl), 150 MG PO QHS PRN for SLEEP, (Reported) Current BP 158/78 Med Change: No Education Goals Met: No (progressing to goal see prior ITP for education) Target Goals Individual exercise Rx (1) BP 140/90 or 130/80 if DM or CKD (1) Aerobic active 30+min 5 days per week (1) Nutrition Date: May 31, 2019 Assessment: Re-Assessment II (3) Stages of change: Contemplate Med Change: No Diabetes Diabetes: Yes Fasting Blood Sugar: 113 Medication Change: No Random Blood Sugar: 107 Blood sugar in range: Yes Current Weight (pounds): 194.2 Intervention Gas Roller Operator Consult: No Nurse/patient discussion: Yes Diet Class: Yes Education Goals Met: No (Consistently comes to cardiac rehab with bs either too high or too low to exercise patient. Dr. Diamond was notified of issue.) Target goal LDL-C<100 if triglycerides are >200 Non-HDL-C should be <130 (1) LDL-C<70 for high risk patients (4) HbA1c<7% (1) BMI<25 Waist cir<40in M/<35in F (1) Education Date: May 31, 2019 Assessment: Re-Assessment II (3) Stages of change: Contemplate Education Goals Met: No (will continue to reinforce education) Target Goals Complete cessation of tobacco use (1). Psychosocial Date: May 31, 2019 Assessment: Re-Assessment II (3) Stages of change: Contemplate Med Change: No Stress Management Class: Yes Uses Stress Management Skills: Yes Education Goals Met: No Target Goal Assess presence or absence of depression using a valid screening tool (1). Maximize coping skills (2). Positive support system (2). Patient/Program Goal Preventative Medication: Yes Beta blockade, Yes Statin/OTR lipid Lowering, Yes Other (warfarin) Fall Risk Assess: Yes (is a fall risk) Assisstive Device: walker Provider Assessment Session Number: 9 Provider Assessment: Proceed with rehab (Poor attendance will continue to monitor blood glucose prior to exercise. Patient not consistent with attendance.) Jana Garza RN May 31, 2019 10:09
== END 2019-05-31 ==
LOC: M CR 13:15
PROVIDERS: ATTEND Internal Medicine Cardiovascular Disease
DX: Z95.1 Presence of aortocoronary bypass graft (principal)

== ENCOUNTER → 2019-08-12 | Outpatient (REF) | payer MEDICARE ==
[~2019-08-12] MED LIST changes: -OMEP40CA2 PO; +OMEP40CA97 PO; -SERT-155 PO; +SERT50TA29 PO
[2019-08-12 18:50] LABS: PERCENT SATURATION 17.5 % (13.2-45.0)
== END ==
LOC: M LAB REF 17:20
PROVIDERS: ATTEND Nurse Practitioner Family
DX: D64.9 Anemia, unspecified (principal)

== ENCOUNTER → 2020-02-23 | Outpatient (CLI) | payer MEDICARE ==
[~2020-02-23] MED LIST changes: +ALDA25TA2 PO; +AMLO1TAB24 PO; +AMLO1TAB25 PO; +ANOR1AER INH; -ASPI81TA85 PO; +ASPI81TA86 PO; +BISO5TAB14 PO; +CALC1CAP31 PO; +CHOL50003 PO; +CLOP75TA2 PO; +FLON1SPR NARES; +FURO20TA2 PO; +FURO80TA2 PO; +HUMU500S2 SC; +HYDR-3910 PO; +HYDR-643 PO; +HYDR10TAB PO; +HYDR25TA PO; +INSUR50VL SC; +ISOS20TAB PO; +ISOS30TA4 PO; +LABE200T32 PO; +LASI20TA3 PO; +LEVO500T3 PO; +LEVO750T13 PO; -LORA0.5T11; +LORA0.5T5; +NITR0.4D6 TD; +PATIENT COMMENT; +PROAAER10 INH; -ROPI1TAB PO; +ROPI1TAB3 PO; +TAB-TAB3 PO; +TORS100T PO; +XARE15TA PO; +XARE20TA PO; +ZOLP5TAB PO
== END ==
LOC: M LABSMTC 10:24
PROVIDERS: ATTEND Family Medicine
DX: Z11.59 Encounter for screening for other viral diseases (principal)
CPT/HCPCS: C9803; U0003

== ENCOUNTER → 2020-04-10 | Outpatient (REF) | payer MEDICARE ==
[2020-05-23 13:13] LABS: PERCENT SATURATION 17.2 % (13.2-45.0)
== END ==
LOC: M LABWUC 09:09
PROVIDERS: ATTEND Internal Medicine Nephrology
DX: D50.9 Iron deficiency anemia, unspecified (principal)

== ENCOUNTER → 2020-04-26 | Outpatient (CLI) | payer MEDICARE ==
--- NOTE | 2020-05-04 13:00 | REP ---
BILATERAL UPPER EXTREMITY ARTERIAL AND VENOUS DOPPLER ULTRASOUND: HISTORY: Vein mapping study end-stage renal disease. FINDINGS: The internal jugular, subclavian, axillary, brachial, basilic, and cephalic vein segments are anechoic and compressible on two-dimensional scanning bilaterally. Color flow imaging is homogeneous. There is no evidence of venous thrombosis in either upper extremity. The left basilic vein could not be seen distal to the median cubital vein at the forearm. Normal Doppler velocities and waveforms are noted in the arteries. RIGHT UPPER EXTREMITY VEIN DIAMETER CHART: BASILIC CEPHALIC Upper humerus 5.4 mm 3.5 mm Mid humerus 4.9 mm 3.2 mm Distal humerus 5.1 mm 2.8 mm Upper forearm 2.0 mm 2.6 mm Mid forearm 2.3 mm 2.9 mm Distal forearm 2.3 mm 2.0 mm Median cubital 4.4 mm LEFT UPPER EXTREMITY VEIN DIAMETER CHART: BASILIC CEPHALIC Upper humerus 5.4 mm 4.0 mm Mid humerus 2.7 mm 4.6 mm Distal humerus 3.0 mm 4.7 mm Upper forearm Not seen 2.8 mm Mid forearm Not seen 2.8 mm Distal forearm Not seen 3.2 mm Median cubital 4.6 mm RIGHT UPPER EXTREMITY ARTERIAL DOPPLER VELOCITY AND DIAMETER CHART: RIGHT PSV Axillary artery 140 cm/s, 5.9 mm Brachial artery 122 cm/s, 4.8 mm Radial artery 52 cm/s, 1.7 mm Ulnar artery 69 cm/s, 4.1 mm LEFT UPPER EXTREMITY ARTERIAL DOPPLER VELOCITY AND DIAMETER CHART: LEFT PSV Axillary artery 97 cm/s, 4.8 mm Brachial artery 109 cm/s, 4.0 mm Radial artery 74 cm/s, 3.3 mm Ulnar artery 77 cm/s, 3.0 mm MTDD
== END ==
LOC: M RAD 09:14
PROVIDERS: ATTEND Internal Medicine Nephrology
DX: Z01.818 Encounter for other preprocedural examination (principal); N18.4 Chronic kidney disease, stage 4 (severe)

== ENCOUNTER 2020-06-22 15:42 | Inpatient (IN) | payer MEDICARE ==
[~2020-06-22] VITALS: Ht 154.9 cm; Wt 100.7 kg
[~2020-06-22 15:42] MED LIST changes: -AMLO1TAB25 PO; -CALC1CAP31 PO; -CHOL50003 PO; -CLOP75TA2 PO; -FLON1SPR NARES; -FURO20TA2 PO; -HYDR-3910 PO; -HYDR-643 PO; -HYDR10TAB PO; -LASI20TA3 PO; -LEVO750T13 PO; -PATIENT COMMENT; -XARE15TA PO
[2020-06-22 16:58] LABS: BASO % 0.3 % (0.0-1.0); EOS # 0.1 10^3/uL (0.0-0.5); EOS % 0.5 % (0.0-3.0); HEMATOCRIT 27.6 % (36.0-47.0); HEMOGLOBIN 9.2 g/dl (12.0-15.5); LYMPH # 1.7 10^3/uL (1.5-5.0); LYMPH % 13.1 % (24.0-44.0); MEAN CORPUSCULAR HEMOGLOBIN 29.4 pg (27.0-33.0); MEAN CORPUSCULAR HGB CONC 33.3 g/dl (32.0-36.5); MEAN CORPUSCULAR VOLUME 88.2 fl (80.0-96.0); MONO # 1.1 10^3/uL (0.0-0.8); MONO % 8.5 % (0.0-5.0); NEUTROPHILS # 9.9 10^3/uL (1.5-8.5); PLATELET COUNT, AUTOMATED 177 10^3/uL (150-450); RED BLOOD COUNT 3.13 10^6/uL (4.00-5.40); WHITE BLOOD COUNT 12.8 10^3/uL (4.0-10.0)
[2020-06-22 17:21] LABS: C REACTIVE PROTEIN QUANTITATIV 2.32 MG/DL (0.00-0.30); CALCIUM LEVEL 8.8 MG/DL (8.8-10.2); CK-MB VALUE MASS 2.7 NG/ML (<3.6); CREATININE FOR GFR 2.34 MG/DL (0.55-1.30); GLOMERULAR FILTRATION RATE 22.1 (>45); MB/CK RELATIVE INDEX 2.05 (< OR =4); POTASSIUM SERUM 3.9 MEQ/L (3.5-5.1); TROPONIN I 0.02 NG/ML (< 0.10)
--- NOTE | 2020-06-22 17:23 | REPVR ---
PROCEDURE INFORMATION: Exam: XR Right Foot Complete Exam date and time: 06/22/2020 4:38 PM Age: 69 years old Clinical indication: Pain; Foot; Right; Additional info: Ulcer? Osteo right 5th toe TECHNIQUE: Imaging protocol: XR Right foot. Views: 3 or more views. COMPARISON: CR Foot, complete 08/21/2017 5:59 PM FINDINGS: Bones/joints: Since the previous x-ray, the distal half of the 5th metatarsal is absent. This is presumed to be an osteotomy although there is no history of surgery. No bone erosion of the stump of the metatarsal is seen. No bone erosion of the phalanges is identified. There is thickened periosteum of the 4th metatarsal. There are degenerative changes of multiple intertarsal and tarsal metatarsal joints. There is a large plantar calcaneal spur. Soft tissues: There is lateral soft tissue swelling. IMPRESSION: Presumed 5th metatarsal osteotomy. No bone erosion identified to indicate acute osteomyelitis. Periosteal reaction of the 4th metatarsal could represent chronic osteomyelitis or osteitis secondary inflammation. Recommend MRI. Electronically signed by: Edi Artis On 06/22/2020 17:22:25 PM
--- NOTE | 2020-06-22 17:34 | REPVR ---
PROCEDURE INFORMATION: Exam: XR Chest, 1 View Exam date and time: 06/22/2020 4:38 PM Age: 69 years old Clinical indication: Chest pain; Type not specified; Additional info: SOB TECHNIQUE: Imaging protocol: XR of the chest Views: 1 view. COMPARISON: CR Chest, 2 view PA, Lat 09/15/2019 8:09 AM FINDINGS: Lungs: Unremarkable. No consolidation. Pleural space: Unremarkable. No pleural effusion. No pneumothorax. Heart/Mediastinum: There is mild cardiomegaly. Bones/joints: Median sternotomy and valve replacement. IMPRESSION: No acute findings. Electronically signed by: Edi Artis On 06/22/2020 17:34:44 PM
[2020-06-22 17:52] LABS: ERYTHROCYTE SEDIMENTATION RATE 125 mm/hr (0-30)
[2020-06-22] MEDS ORDERED: GLUCOSE 4GM CHEW TABLET PO PRN (18:45)
[2020-06-22] MEDS ORDERED: DEXTROSE 50% 50 ML SYRINGE IV PRN (18:45)
[2020-06-22] MEDS ORDERED: GLUCAGON INJ 1MG VIAL SC PRN (18:45)
[2020-06-22] MEDS ORDERED: CLOP75TA2 PO (19:05)
[2020-06-22] MEDS ORDERED: AMLO1TAB25 PO (19:05)
[2020-06-22] MEDS ORDERED: INSUR50VL SC ×2 (19:05)
[2020-06-22] MEDS ORDERED: FURO40TA2 PO (19:05)
[2020-06-22] MEDS ORDERED: CHOL50003 PO (19:05)
[2020-06-22] MEDS ORDERED: HYDR-3910 PO (19:05)
[2020-06-22] MEDS ORDERED: HYDR-643 PO (19:05)
[2020-06-22] MEDS ORDERED: FLON1SPR NARES (19:05)
[2020-06-22] MEDS ORDERED: SPIR-10 PO (19:05)
[2020-06-22] MEDS ORDERED: CALC1CAP31 PO (19:07)
[2020-06-22] MEDS ORDERED: ISOS20TAB PO (19:07)
[2020-06-22] MEDS ORDERED: CARV25TA PO (19:07)
[2020-06-22] MEDS ORDERED: hydrOXYzine 10 MG TAB PO PRN (19:45)
--- NOTE | 2020-06-22 20:15 | HPEPDOC ---
General Date of Admission Jun 22, 2020 at 18:35 Date of Service: Jun 22, 2020 Chief Complaint The patient is a 69-year-old female admitted with a reason for visit of Diabetic Foot Ulcer. Source: Patient History of Present Illness Patient is a 69-year-old female with CHF, CAD, atrial fibrillation on anticoagulation, insulin-dependent diabetes, hypertension, COPD, CAD, and JEFFERY who is here for diabetic foot ulcer/cellulitis. Initially, patient was here for a vascular study with Dr. Mitchell, but she had some shortness of breath. When I talked with her, she did with her shortness of breath has been chronic due to her COPD and CAD. It is not worse from prior. Her intermittent chest pain is also not changed from prior. What is concerning is she has a new ulcer on her left great toe. She regularly sees a cutter helper in [place] for a left great toe diabetic ulcer. There is a new oozing ulcer with redness and tenderness. The erythema tracks up her first metatarsal. Denies any fever. She does have chills, but she tells me that her chills have been going on for the past 3 months. Workup is positive for a WBC of 12.8 and an ESR of 125. In addition her CRP is 2.3 to and pro BNP of 4274. Foot x-ray demonstrates periosteal reaction of the fourth metatarsal and recommends an MRI. Home Medications Scheduled Amlodipine Besylate (Amlodipine Besylate) 10 Mg Tablet, 10 MG PO DAILY, (Reported) Calcitriol (Calcitriol) 0.25 Mcg Capsule, 0.25 MCG PO DAILY, (Reported) Carvedilol (Carvedilol) 25 Mg Tablet, 25 MG PO BID, (Reported) Clopidogrel Bisulfate (Clopidogrel) 75 Mg Tablet, 75 MG PO DAILY, (Reported) Ferrous Gluconate (Ferrous Gluconate) 324 Mg Tablet, 324 MG PO BID, (Reported) Fluticasone Propionate (Flonase Allergy Relief) 9.9 Ml [place].susp, 2 SPRAY NARES DAILY, (Reported) Furosemide (Furosemide) 40 Mg Tablet, 40 MG PO BID, (Reported) Hydralazine HCl (Hydralazine HCl) 25 Mg Tablet, 25 MG PO BID, (Reported) Insulin (Humulin R U-500) 500 Unit/1 Ml Vial, 70 UNITS SC BID, (Reported) with breakfast and lunch Insulin (Humulin R U-500) 500 Unit/1 Ml Vial, 86 UNITS SC QPM, (Reported) with dinner Isosorbide Dinitrate (Isosorbide Dinitrate) 20 Mg Tablet, 20 MG PO TID, (Reported) Multivitamin (Tab-A-Kristine) 1 Each Tablet, 1 TAB PO QHS, (Reported) Omeprazole (Omeprazole) 40 Mg Cap, 40 MG PO DAILY, (Reported) Potassium Chloride (Potassium Chloride) 10 Meq Tab, 10 MEQ PO BID, (Reported) Rivaroxaban (Xarelto) 20 Mg Tablet, 20 MG PO QHS, (Reported) Ropinirole HCl (Ropinirole HCl) 1 Mg Tab, 2 MG PO BID, (Reported) Sertraline HCl (Sertraline HCl) 50 Mg Tab, 100 MG PO QHS, (Reported) Spironolactone (Spironolactone) 25 Mg Tablet, 25 MG PO DAILY, (Reported) Umeclidinium Brm/Vilanterol Tr (Anoro Ellipta 62.5-25 Mcg INH) 1 Each Blst.w.dev , 1 PUFF INH DAILY, (Reported) Scheduled PRN Hydroxyzine HCl (Hydroxyzine HCl) 10 Mg Tablet, 10 MG PO TID PRN for ANXIETY, (Reported) Allergies Coded Allergies: Penicillins (Verified Allergy, Mild, RASH/ITCHING, 06/22/20) Past Medical History Medical History 1. Congestive heart failure 2. Coronary artery disease 3. Atrial fibrillation 4. Aortic valve disease status post replacement. (Pig valve) 5. Insulin-dependent diabetes mellitus. 6. Hypertension. 7. COPD 8. CKD, unsure of stage 9. Depression/anxiety 10. Iron deficiency anemia 11. JEFFERY 12. Chronic back pain. 13. GERD 14. Restless leg syndrome Surgical History 1. Hysterectomy 2. Hernia repair 3. Carpal tunnel release 2. 4. Appendectomy. 5. CABG 6. TAVR 7. Left knee surgery. 8. Back surgery Family History Father: at the age of 80. History of diabetes and heart failure Mother: at the age of 63. History of diabetes, heart failure, and stroke Social History * Smoker: non-smoker Alcohol: Denies Drugs: denies A-FIB/CHADSVASC A-FIB History Current/History of A-Fib/PAF?: Yes Current PO Anticoag Therapy: Yes Review of Systems Constitutional: Reports: Chills (chronic since 3 months); Denies: Fever Eyes: Denies: Vision change ENT: Reports: Ear Pain (bilateral) Skin: Reports: Breakdown (left toe) Pulmonary: Reports: Dyspnea (chronic), Cough Cardiovascular: Denies: Chest Pain Gastrointestinal: Reports: Diarrhea (one time yesterday); Denies: Nausea, Abdominal Pain Genitourinary: Denies: Dysuria Hematologic: Reports: Bruising Endocrine: Denies: Polydipsia, Polyphagia, Polyuria Musculoskeletal: Reports: Foot Pain Psych: Denies: Thoughts of Self Harm, Thoughts of Harming Other Physical Examination General Exam: Positive: Alert, Cooperative, Mild Distress Eye Exam: Positive: EOMI; Negative: Sclera icteric ENT Exam: Positive: Atraumatic Neck Exam: Positive: Supple Chest Exam: Positive: Diminished Heart Exam: Positive: Rate Normal Abdomen Exam: Positive: Normal bowel sounds, Soft; Negative: Tenderness Extremity Exam: Positive: Edema Skin Exam: Positive: Breakdown (left big toe ulcer) Neuro Exam: Positive: Cranial Nerves 3-12 NL Psych Exam: Positive: Mental status NL, Mood NL Vital Signs Vital Signs Date Time Temp Pulse Resp B/P (MAP) Pulse Ox O2 Delivery O2 Flow Rate FiO2 06/22/20 19:14 66 93 06/22/20 19:13 16 196/83 (120) Room Air 06/22/20 15:43 97.6 Laboratory Data Labs 24H Laboratory Tests 2 06/22/20 16:36: Immature Granulocyte % (Auto) 0.6, Neutrophils (%) (Auto) 77.0H, Lymphocytes (%) (Auto) 13.1L, Monocytes (%) (Auto) 8.5H, Eosinophils (%) (Auto) 0.5, Basophils (%) (Auto) 0.3, Neutrophils # (Auto) 9.9H, Lymphocytes # (Auto) 1.7, Monocytes # (Auto) 1.1H, Eosinophils # (Auto) 0.1, Basophils # (Auto) 0.0, Nucleated Red Blood Cells % (auto) 0.0, Erythrocyte Sedimentation Rate 125H, Anion Gap 6L, Glomerular Filtration Rate 22.1L, Calcium Level 8.8, Total Creatine Kinase 132, Creatine Kinase MB 2.7, Creatine Kinase MB Relative Index 2.05, Troponin I 0.02, C-Reactive Protein, Quantitative 2.32H, KK-Azn-T-Type Natriuretic Peptide 4274H 06/22/20 17:12: Bedside Glucose (Misc Panel) 52L CBC/BMP Laboratory Tests 06/22/20 16:36 Microbiology Microbiology 06/22/20 Gram Stain, Received Pending 06/22/20 Wound Culture, Received Pending 06/22/20 Blood Culture, Received Pending 06/22/20 Blood Culture, Received Pending Assessment/Plan Patient is a 69-year-old female with CHF, CAD, atrial fibrillation on anticoagulation, insulin-dependent diabetes, hypertension, COPD, CAD, and JEFFERY who is here for diabetic foot ulcer/cellulitis. She has leukocytosis, and elevated ESR and CRP. We'll get an MRI, blood cultures, and wound cultures. She is on broad-spectrum antibiotics. Plan / VTE VTE Prophylaxis Ordered?: Yes Plan Plan 1. Left big toe diabetic foot ulcer We will obtain MRI of the left foot Due to allergies to penicillins, patient will be on vancomycin and cefepime Pending blood culture results and wound culture results 2. Diabetes mellitus Patient will be on carb consistent diet and sliding scale insulin 3. CHF Pro BNP is elevated We will obtain an echocardiogram 2 g salt diet We will continue diuretics 4. Atrial fibrillation Continue Rivaroxaban Continue Coreg 5. Coronary artery disease Continue clopidogrel, Coreg, Isordil We will check 2 troponins. Initial troponin negative 6. Hypertension Continue amlodipine, Coreg, hydralazine, Imdur, and diuretics 7. Restless leg syndrome Continue allopurinol 8. Anxiety/depression Continue sertraline and as needed hydroxyzine 9. GERD Continue omeprazole 10. DVT prophylaxis On Rivaroxaban OLYA MEDINA DO Jun 22, 2020 20:15
[2020-06-22] MEDS: CEFEPIME HCL 2 GM in D5W MINI-BAG PLUS 50 ML IV SCH (21:14)
[2020-06-22 22:00] VITALS: BP 113/60
[2020-06-22] MEDS ORDERED: VANCOMYCIN HCL 750 MG, VIAL MATE ADAPTER 1 EACH in D5W 250 ML IV ONE ×2 (22:00→23:00)
[2020-06-22] MEDS: RIVAROXABAN 20 MG TAB (XARELTO) PO SCH (22:33)
[2020-06-22] MEDS: CARVedilol 12.5 MG TAB PO SCH (22:34)
[2020-06-22] MEDS: SERTRALINE HCL 50 MG TAB PO SCH (22:35)
[2020-06-22] MEDS: rOPINIRole 1MG TAB PO SCH (22:35)
[2020-06-22] MEDS: POTASSIUM CHLORIDE 10 MEQ SR TABLET PO SCH (22:36)
[2020-06-22] MEDS: **hydrALAZINE HCL** 25 MG TAB PO SCH (22:36)
[2020-06-22] MEDS: FERROUS GLUCONATE 324 MG TAB PO SCH (22:36)
[2020-06-22] MEDS: HumaLOG INSULIN (NovoLOG) PER UNIT SC SCH (22:37)
[2020-06-22] MEDS: ISOSORBIDE DIN. (ISORDIL) 20 MG TAB PO SCH (22:37)
[2020-06-23 06:00] VITALS: BP 128/57
[2020-06-23 06:17] LABS: HEMATOCRIT 24.8 % (36.0-47.0); MEAN CORPUSCULAR HEMOGLOBIN 28.2 pg (27.0-33.0); MEAN CORPUSCULAR HGB CONC 32.3 g/dl (32.0-36.5); MEAN CORPUSCULAR VOLUME 87.3 fl (80.0-96.0); PLATELET COUNT, AUTOMATED 155 10^3/uL (150-450); RED BLOOD COUNT 2.84 10^6/uL (4.00-5.40); WHITE BLOOD COUNT 11.6 10^3/uL (4.0-10.0)
[2020-06-23] MEDS: ACETAMINOPHEN TAB 650MG DOSE (2X325MG) PO PRN (06:41)
[2020-06-23 06:43] LABS: CALCIUM LEVEL 8.1 MG/DL (8.8-10.2); CREATININE FOR GFR 2.26 MG/DL (0.55-1.30); POTASSIUM SERUM 4.2 MEQ/L (3.5-5.1)
[2020-06-23] MEDS: SALMETEROL DISKUS 50MCG INHALER (SEREVENT) INH SCH ×2 (07:23→20:16)
[2020-06-23] MEDS: TIOTROPIUM INHALER/CAPSULE (SPIRIVA) INH SCH (07:24)
[2020-06-23] MEDS: CEFEPIME HCL 2 GM in D5W MINI-BAG PLUS 50 ML IV SCH ×2 (08:04→21:05)
[2020-06-23] MEDS: SPIRONOLACTONE 25 MG TAB PO SCH (08:04)
[2020-06-23] MEDS: HumaLOG INSULIN (NovoLOG) PER UNIT SC SCH ×4 (08:04→21:06)
[2020-06-23] MEDS: rOPINIRole 1MG TAB PO SCH ×2 (08:04→21:08)
[2020-06-23] MEDS: OMEPRAZOLE 20 MG CAP PO SCH (08:05)
[2020-06-23] MEDS: POTASSIUM CHLORIDE 10 MEQ SR TABLET PO SCH ×2 (08:05→21:09)
[2020-06-23] MEDS: CARVedilol 12.5 MG TAB PO SCH ×2 (08:05→21:09)
[2020-06-23] MEDS: CALCITRIOL 0.25 MCG CAP (S0169) PO SCH (08:05)
[2020-06-23] MEDS: FERROUS GLUCONATE 324 MG TAB PO SCH ×2 (08:05→21:07)
[2020-06-23] MEDS: FUROSEMIDE 40 MG TAB PO SCH ×2 (08:06→16:21)
[2020-06-23] MEDS: ISOSORBIDE DIN. (ISORDIL) 20 MG TAB PO SCH ×3 (08:06→21:08)
[2020-06-23] MEDS: CLOPIDOGREL 75 MG TAB PO SCH (08:06)
[2020-06-23] MEDS: **hydrALAZINE HCL** 25 MG TAB PO SCH ×2 (08:06→21:07)
[2020-06-23] MEDS: amLODIPine 10 MG TAB PO SCH (08:06)
[2020-06-23] MEDS: FLUTICASONE PROP 0.05% NASAL SPRAY 16 GM (FLONASE) NARES SCH (08:53)
--- NOTE | 2020-06-23 11:21 | REP ---
INDICATION: RIGHT great toe diabetic ulcer/cellulitis, concern for osteo. COMPARISON: 08/08/2017 TECHNIQUE: Multiple sequences obtained in the axial, coronal and sagittal planes. No IV contrast was administered. FINDINGS: There is new ill-defined bone marrow edema and suspected osteomyelitis involving the 1st distal phalanx. There also appears to be a more mild degree of involvement of the 1st proximal phalanx. The patient has had prior amputation of the distal half of the 5th metatarsal. The remaining base of 5th metatarsal demonstrates no abnormal bone marrow signal. However, there is possible mild marrow edema and acute versus chronic osteomyelitis involving the 5th proximal phalanx. I also suspect edema and possible osteomyelitis of the distal aspect of the 4th proximal phalanx. Mild diffuse marrow edema is seen in the proximal half of the 4th metatarsal shaft with adjacent smooth chronic periosteal thickening and reaction. I suspect this represents chronic osteomyelitis. Diffuse severe arthritic changes are seen of the intertarsal and tarsal/metatarsal joints with areas of subchondral marrow edema and cystic change with associated joint space narrowing. There is mild spurring of the tarsal bones. There is diffuse soft tissue edema, with suspected cellulitis. No focal abscess collection is seen in the soft tissues. There is no tenosynovitis. IMPRESSION: Suspect osteomyelitis involving the 1st distal phalanx and proximal phalanx. Possible acute versus chronic osteomyelitis 5th proximal phalanx. Possible osteomyelitis of the distal aspect of the 4th proximal phalanx. Mild marrow edema in the proximal 4th metatarsal shaft with chronic periosteal thickening may indicate chronic osteomyelitis. <Electronically signed by Miller Cook > 06/23/20 [id number]
[2020-06-23] MEDS: VANCOMYCIN HCL 1,000 MG, VIAL MATE ADAPTER 1 EACH in D5W 250 ML IV SCH (11:27)
[2020-06-23 12:25] LABS: HEMATOCRIT 24.6 % (36.0-47.0); HEMOGLOBIN 8.1 g/dl (12.0-15.5); MEAN CORPUSCULAR HEMOGLOBIN 28.8 pg (27.0-33.0); MEAN CORPUSCULAR HGB CONC 32.9 g/dl (32.0-36.5); MEAN CORPUSCULAR VOLUME 87.5 fl (80.0-96.0); PLATELET COUNT, AUTOMATED 144 10^3/uL (150-450); RED BLOOD COUNT 2.81 10^6/uL (4.00-5.40); WHITE BLOOD COUNT 11.2 10^3/uL (4.0-10.0)
[2020-06-23 14:00] VITALS: BP 146/90
[2020-06-23] MEDS ORDERED: SANTYL OINT 30GM TOP SCH (18:00)
--- NOTE | 2020-06-23 19:17 | IPNPDOC ---
Subjective Date Seen The patient was seen on 06/23/20. Subjective Chief Complaint/HPI Patient is a 69-year-old female with CHF, CAD, atrial fibrillation on anticoagulation, insulin-dependent diabetes, hypertension, COPD, CAD, and JEFFERY who is here for diabetic foot ulcer/cellulitis. This morning, she was still having foot pain. Denies fever/chills, chest pain, abdominal pain, or dysuria. She has chronic dyspnea unchanged from prior. MRI demonstrated possible osteomyelitis. Spoke with Podiatry, Dr. Cross. He debrided it and consulted Dr. Mitchell for evaluation of PVD. Recommendations appreciated. Constitutional: Denies: Chills, Fever Pulmonary: Reports: Dyspnea (chronic ) Cardiovascular: Denies: Chest Pain Gastrointestinal: Denies: Abdominal Pain Genitourinary: Denies: Dysuria Objective Physical Examination General Exam: Positive: Alert, Cooperative, Mild Distress Eye Exam: Positive: EOMI; Negative: Sclera icteric ENT Exam: Positive: Atraumatic Neck Exam: Positive: Supple Chest Exam: Positive: Diminished Heart Exam: Positive: Rate Normal Abdomen Exam: Positive: Normal bowel sounds, Soft; Negative: Tenderness Extremity Exam: Positive: Edema Skin Exam: Positive: Breakdown (left big toe ulcer) Neuro Exam: Positive: Cranial Nerves 3-12 NL Psych Exam: Positive: Mental status NL, Mood NL Assessment /Plan Assessment Patient is a 69-year-old female with CHF, CAD, atrial fibrillation on anticoagulation, insulin-dependent diabetes, hypertension, COPD, CAD, and JEFFERY who is here for diabetic foot ulcer/cellulitis and possible osteomyelitis. Consulted Dr. Cross. He saw the patient, debrided, and consulted Dr. Zimmerman for PVD. Continue with IV antibiotics. Pending wound culture results Plan/VTE VTE Prophylaxis Ordered?: Yes Plan 1. Left big toe diabetic foot ulcer We will obtain MRI of the left foot Due to allergies to penicillins, patient will be on vancomycin and cefepime Pending blood culture results and wound culture results -Podiatry, Dr. Cross, consulted, who consulted Dr. Mitchell. Recommendations appreciated 2. Osteomyelitis -MRI demonstrates the following -Suspect osteomyelitis of the 1st distal phalanx and proximal phalanx -Possible acute versus chronic osteomyelitis 5th proximal phalanx -Possible osteomyelitis of the distal aspect of the 4th proximal phalanx -Mild marrow edema in the proximal 4th metatarsal shaft with chronic periosteal thickening may indicate chronic osteomyelitis -Podiatry consulted recommendations appreciated. 3. Diabetes mellitus Patient will be on carb consistent diet and sliding scale insulin -Still not controlled, will increase her levemir 4. CHF Pro BNP is elevated We will obtain an echocardiogram 2 g salt diet We will continue diuretics 5. Atrial fibrillation Continue Rivaroxaban Continue Coreg 6. Coronary artery disease Continue clopidogrel, Coreg, Isordil We will check 2 troponins. Initial troponin negative 7. Hypertension Continue amlodipine, Coreg, hydralazine, Imdur, and diuretics 8. Restless leg syndrome Continue allopurinol 9. Anxiety/depression Continue sertraline and as needed hydroxyzine 10. GERD Continue omeprazole 11. DVT prophylaxis On Rivaroxaban VS, I&O, 24H, Fishbone Vital Signs/I&O Vital Signs Date Time Temp Pulse Resp B/P (MAP) Pulse Ox O2 Delivery O2 Flow Rate FiO2 06/23/20 16:22 146/90 06/23/20 14:00 99.1 67 18 98 Room Air I&O- Last 24 Hours up to 6 AM 06/23/20 06:00 Intake Total 550 ml Output Total 400 ml Balance 150 ml Laboratory Data 24H LABS Laboratory Tests 2 06/22/20 19:51: Bedside Glucose (Misc Panel) 95 06/22/20 22:18: Bedside Glucose (Misc Panel) 224H 06/22/20 22:28: Troponin I 0.02 06/23/20 06:00: Nucleated Red Blood Cells % (auto) 0.0, Anion Gap 8, Glomerular Filtration Rate 23.0L, Calcium Level 8.1L 06/23/20 11:25: Bedside Glucose (Misc Panel) 333H 06/23/20 12:16: Nucleated Red Blood Cells % (auto) 0.0 06/23/20 16:40: Bedside Glucose (Misc Panel) 380H CBC/BMP Laboratory Tests 06/23/20 06:00 06/23/20 12:16 Microbiology Microbiology 06/22/20 Gram Stain - Final, Resulted 06/22/20 Wound Culture, Resulted Pending 06/22/20 Blood Culture - Preliminary, Resulted No growth after 24 hours . All specim... 06/22/20 Blood Culture - Preliminary, Resulted No growth after 24 hours . All specim... OLYA MEDINA DO Jun 23, 2020 19:17
[2020-06-23 20:09] VITALS: BP 147/50
--- NOTE | 2020-06-23 20:23 | ECGEPIP ---
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
[2020-06-23] MEDS ORDERED: LEVEMIR (INSULIN DETEMIR) 1 UNITS/0.01ML SC SCH ×2 (21:00)
[2020-06-23] MEDS: SERTRALINE HCL 50 MG TAB PO SCH (21:08)
[2020-06-23] MEDS: RIVAROXABAN 20 MG TAB (XARELTO) PO SCH (21:08)
[2020-06-24 05:58] VITALS: BP 162/57
[2020-06-24 06:46] LABS: HEMOGLOBIN 8.3 g/dl (12.0-15.5); MEAN CORPUSCULAR HEMOGLOBIN 28.7 pg (27.0-33.0); MEAN CORPUSCULAR HGB CONC 33.2 g/dl (32.0-36.5); MEAN CORPUSCULAR VOLUME 86.5 fl (80.0-96.0); PLATELET COUNT, AUTOMATED 150 10^3/uL (150-450); RED BLOOD COUNT 2.89 10^6/uL (4.00-5.40); WHITE BLOOD COUNT 13.2 10^3/uL (4.0-10.0)
[2020-06-24 07:11] LABS: CALCIUM LEVEL 8.5 MG/DL (8.8-10.2); CREATININE FOR GFR 2.14 MG/DL (0.55-1.30); GLOMERULAR FILTRATION RATE 24.5 (>45); POTASSIUM SERUM 3.8 MEQ/L (3.5-5.1)
[2020-06-24] MEDS: CEFEPIME HCL 2 GM in D5W MINI-BAG PLUS 50 ML IV SCH ×2 (08:17→20:13)
[2020-06-24] MEDS: SANTYL OINT 30GM TOP SCH (08:18)
[2020-06-24] MEDS: SPIRONOLACTONE 25 MG TAB PO SCH (08:18)
[2020-06-24] MEDS: FLUTICASONE PROP 0.05% NASAL SPRAY 16 GM (FLONASE) NARES SCH ×2 (08:18→09:00)
[2020-06-24] MEDS: HumaLOG INSULIN (NovoLOG) PER UNIT SC SCH ×4 (08:19→20:16)
[2020-06-24] MEDS: CALCITRIOL 0.25 MCG CAP (S0169) PO SCH (08:19)
[2020-06-24] MEDS: POTASSIUM CHLORIDE 10 MEQ SR TABLET PO SCH ×2 (08:20→20:19)
[2020-06-24] MEDS: rOPINIRole 1MG TAB PO SCH ×2 (08:20→20:16)
[2020-06-24] MEDS: ACETAMINOPHEN TAB 650MG DOSE (2X325MG) PO PRN (08:20)
[2020-06-24] MEDS: OMEPRAZOLE 20 MG CAP PO SCH (08:21)
[2020-06-24] MEDS: amLODIPine 10 MG TAB PO SCH (08:21)
[2020-06-24] MEDS: ISOSORBIDE DIN. (ISORDIL) 20 MG TAB PO SCH ×3 (08:21→20:17)
[2020-06-24] MEDS: FERROUS GLUCONATE 324 MG TAB PO SCH ×2 (08:21→20:16)
[2020-06-24] MEDS: CARVedilol 12.5 MG TAB PO SCH ×2 (08:22→20:19)
[2020-06-24] MEDS: CLOPIDOGREL 75 MG TAB PO SCH (08:22)
[2020-06-24] MEDS: FUROSEMIDE 40 MG TAB PO SCH ×2 (08:22→16:53)
[2020-06-24] MEDS: **hydrALAZINE HCL** 25 MG TAB PO SCH ×2 (08:23→20:18)
[2020-06-24] MEDS ORDERED: IPRATROPIUM 0.5MG/ALBUTEROL 2.5MG INH SOL UD 3ML (DUONEB) NEB PRN (10:15)
--- NOTE | 2020-06-24 10:45 | REP ---
INDICATION: dyspnea COMPARISON: 06/22/2020 TECHNIQUE: PA and lateral. FINDINGS: The mediastinum and cardiac silhouette are stable. Evidence for prior sternotomy and cardiac valve repair. The lung pate are clear and without acute consolidation, effusion, or pneumothorax. The skeletal structures are intact and normal. IMPRESSION: No acute cardiopulmonary process. <Electronically signed by Piero Mast > 06/24/20 [id number]
[2020-06-24 11:01] LABS: VANCOMYCIN LEVEL TROUGH 15.5 UG/ML (10.0-20.0)
[2020-06-24] MEDS: VANCOMYCIN HCL 1,000 MG, VIAL MATE ADAPTER 1 EACH in D5W 250 ML IV SCH (11:52)
[2020-06-24] MEDS: TIOTROPIUM INHALER/CAPSULE (SPIRIVA) INH SCH (12:10)
[2020-06-24] MEDS: SALMETEROL DISKUS 50MCG INHALER (SEREVENT) INH SCH ×2 (13:44→19:40)
[2020-06-24 14:00] VITALS: BP 149/56
--- NOTE | 2020-06-24 14:15 | CR.PDOC ---
General Date of Consultation: Jun 24, 2020 Consultation REASON FOR CONSULTATION/CHIEF COMPLAINT: DM foot ulcer and PVD HISTORY OF PRESENT ILLNESS: This is a very pleasant 69yo patient with h/o diabetic arteriopathy and ulcerations, now admitted for workup of SOB and toe osteomyelitis with ulceration followed by Dr Cross. I reviewed the patient's recent arterial study. She has triphasic flow bilaterally to the popliteal arteries, but monophasic flow distal to this bilaterally. There is suspected mild to moderate popliteal artery/prox tibial stenoses RLE. There are some flow elevations in the left TP trunk and tibials indicative of mild-mod stenoses, and occlusion of the AT with distal reconstitution through collaterals. I feel she would benefit from arteriogram next week to see if we can improve flow to help with limb salvage efforts. Will need nephrology assessment prior to arteriogram due to GFR 24. We will use as little contrast as possible with increased hydration, but no amount of contrast is 100% safe at Stage IV. ALLERGIES: Please see below. HOME MEDICATIONS: Please see below. PAST MEDICAL HISTORY: CHF, CAD, AF, IDDM, HTN, COPD, CKD, depression, anxiety, anemia, JEFFERY, GERD, RLS PAST SURGICAL HISTORY: TAVR, knee surgery, back surgery, CABG, appendectomy, carpal tunnel, hernia repair, TEODORA FAMILY HISTORY: DM, CAD, CVA SOCIAL HISTORY: Denies tobacco, ETOH, illicit drug use REVIEW OF SYSTEMS: CONSTITUTIONAL: +malaise, no f/c HEENT: no new vision changes CARDIOVASCULAR: denies CP RESPIRATORY: +SOB GENITOURINARY: denies dysuria MUSCULOSKELETAL: +back pain +claudication GASTROINTESTINAL: +GERD no n/v SKIN: +wound left foot NEUROLOGICAL: denies CVA SZ LEE PSYCHIATRIC: +anxiety +depression ENDOCRINE: +DM HEMATOLOGIC: +anemia ALLERGIC/IMMUNOLOGIC: denies PHYSICAL EXAMINATION: VITAL SIGNS: Please see below. GENERAL APPEARANCE: medically stable NAD HEENT: NC TMI RESPIRATORY: slightly coarse BS bilat no wheezes CARDIOVASCULAR: IRR ABDOMEN: soft Nt EXTREMITIES: DP/PT pulses not palpable but signals dopplerable and strong monophasic BLE DP/PT NEUROLOGICAL: MAEE PSYCHIATRIC: pleasant and cooperative LABORATORY DATA: Please see below. ASSESSMENT/PLAN: 69yo patient with CRI, DM, PVD, claudication toe osteomyelitis per imaging 1. Plan for arteriogram next week- unclear date as we will have to try to work h er into the schedule- will try to do iris for goal limb salvage but need nephrology assessment first to stratify risk for SANDEEP/optimize renal function if we proceed. There is no way to administer any contrast dose at this level of renal insufficiency that would be safe, but we would use as minimal contrast as possible with extra NS hydration to minimize risks for SANDEEP on top of stage IV CRI. 2. Recommend daily antiplatelet and statin, and pt is on plavix, but not on statin. 3. Will plan to hold xarelto and plavix the day before and the day of the procedure if we proceed. 4. I also looked at her vein mapping and she has a good option for a left brachial cephalic vs right brachial basilic AVF creation. Im not sure if this is already scheduled (?) Further recommendations to follow. We appreciate the opportunity to participate in the care of this patient. Vital Signs/I&O Vital Signs Date Time Temp Pulse Resp B/P (MAP) Pulse Ox O2 Delivery O2 Flow Rate FiO2 06/24/20 08:21 64 162/57 06/24/20 05:58 98.4 20 94 Room Air I&O- Last 24 Hours up to 6 AM 06/24/20 06:00 Intake Total 770 ml Output Total 1500 ml Balance -730 ml Laboratory Data Labs 24H Laboratory Tests 2 06/23/20 16:40: Bedside Glucose (Misc Panel) 380H 06/23/20 20:12: Bedside Glucose (Misc Panel) 356H 06/24/20 06:14: Nucleated Red Blood Cells % (auto) 0.0, Anion Gap 8, Glomerular Filtration Rate 24.5L, Calcium Level 8.5L 06/24/20 10:09: WR-Xto-R-Type Natriuretic Peptide 7822H, Vancomycin Level Trough 15.5 06/24/20 11:38: Bedside Glucose (Misc Panel) 254H CBC/BMP Laboratory Tests 06/24/20 06:14 Microbiology Microbiology 06/22/20 Gram Stain - Final, Resulted 06/22/20 Wound Culture - Preliminary, Resulted Strep Agalactiae Group B 06/22/20 Blood Culture - Preliminary, Resulted No growth after 24 hours . All specim... 06/22/20 Blood Culture - Preliminary, Resulted No growth after 24 hours . All specim... Allergies Coded Allergies: Penicillins (Verified Allergy, Mild, RASH/ITCHING, 10/22/20) Home Medications Scheduled Amlodipine Besylate (Amlodipine Besylate) 10 Mg Tablet, 10 MG PO DAILY, (Reported) Calcitriol (Calcitriol) 0.25 Mcg Capsule, 0.25 MCG PO DAILY, (Reported) Carvedilol (Carvedilol) 25 Mg Tablet, 25 MG PO BID, (Reported) Cholecalciferol (Vitamin D3) (Vitamin D3) 125 Mcg Capsule, 5,000 UNITS PO QHS, (Reported) Clopidogrel Bisulfate (Clopidogrel) 75 Mg Tablet, 75 MG PO DAILY, (Reported) Ferrous Gluconate (Ferrous Gluconate) 324 Mg Tablet, 324 MG PO BID, (Reported) Fluticasone Propionate (Flonase Allergy Relief) 9.9 Ml Robeline.susp, 2 SPRAY NARES DAILY, (Reported) Furosemide (Furosemide) 40 Mg Tablet, 40 MG PO BID, (Reported) Hydralazine HCl (Hydralazine HCl) 25 Mg Tablet, 25 MG PO BID, (Reported) Insulin (Humulin R U-500) 500 Unit/1 Ml Vial, 70 UNITS SC BID, (Reported) with breakfast and lunch Insulin (Humulin R U-500) 500 Unit/1 Ml Vial, 86 UNITS SC QPM, (Reported) with dinner Isosorbide Dinitrate (Isosorbide Dinitrate) 20 Mg Tablet, 20 MG PO TID, (Reported) Multivitamin (Tab-A-Kristine) 1 Each Tablet, 1 TAB PO QHS, (Reported) Omeprazole (Omeprazole) 40 Mg Cap, 40 MG PO DAILY, (Reported) Potassium Chloride (Potassium Chloride) 10 Meq Tab, 10 MEQ PO BID, (Reported) Rivaroxaban (Xarelto) 20 Mg Tablet, 20 MG PO QHS, (Reported) Ropinirole HCl (Ropinirole HCl) 1 Mg Tab, 2 MG PO BID, (Reported) Sertraline HCl (Sertraline HCl) 50 Mg Tab, 100 MG PO QHS, (Reported) Spironolactone (Spironolactone) 25 Mg Tablet, 25 MG PO DAILY, (Reported) Umeclidinium Brm/Vilanterol Tr (Anoro Ellipta 62.5-25 Mcg INH) 1 Each Blst.w.dev, 1 PUFF INH DAILY, (Reported) Scheduled PRN Hydroxyzine HCl (Hydroxyzine HCl) 10 Mg Tablet, 10 MG PO TID PRN for ANXIETY, (Reported) RACHELL MARS MD Jun 24, 2020 14:15
[2020-06-24] MEDS: ONDANSETRON 4MG/2ML VIAL IV PRN (18:39)
[2020-06-24 19:31] VITALS: BP 139/56
--- NOTE | 2020-06-24 19:59 | IPNPDOC ---
Subjective Date Seen The patient was seen on 06/24/20. Subjective Chief Complaint/HPI Patient is a 69-year-old female with CHF, CAD, atrial fibrillation on anticoagulation, insulin-dependent diabetes, hypertension, COPD, CAD, and JEFFERY who is here for diabetic foot ulcer/cellulitis. Dr. Cross debrided L foot on 06/23/2020. Vascular surgery was consulted for evaluation, but will need nephrology to help with contrast induced nephrology prevention. Nephrology to see patient tomorrow. Otherwise, patient has nausea, denies fever, chest pain, or dysuria. Constitutional: Denies: Fever Pulmonary: Reports: Dyspnea (chronic) Cardiovascular: Denies: Chest Pain Gastrointestinal: Reports: Nausea Objective Physical Examination General Exam: Positive: Alert, Cooperative, Mild Distress Eye Exam: Positive: EOMI; Negative: Sclera icteric ENT Exam: Positive: Atraumatic Neck Exam: Positive: Supple Chest Exam: Positive: Diminished Heart Exam: Positive: Rate Normal Abdomen Exam: Positive: Normal bowel sounds, Soft; Negative: Tenderness Extremity Exam: Positive: Edema Skin Exam: Positive: Breakdown (left big toe ulcer) Neuro Exam: Positive: Cranial Nerves 3-12 NL Psych Exam: Positive: Mental status NL, Mood NL Assessment /Plan Assessment Patient is a 69-year-old female with CHF, CAD, atrial fibrillation on anticoagulation, insulin-dependent diabetes, hypertension, COPD, CAD, and JEFFERY who is here for diabetic foot ulcer/cellulitis and possible osteomyelitis. Consulted Dr. Cross. He saw the patient, debrided, and consulted Dr. Zimmerman for vascular evaluation. Due to CKD status, will need nephrology to help with contrast induced nephropathy prophylaxis. Otherwise, continuing with IV antibiotics. Pending wound culture results Plan/VTE VTE Prophylaxis Ordered?: Yes Plan 1. Left big toe diabetic foot ulcer We will obtain MRI of the left foot Due to allergies to penicillins, patient will be on vancomycin and cefepime Pending blood culture results and wound culture results -Podiatry, Dr. Cross, consulted, who consulted vascular surgery, Dr. Mitchell for vascular evaluation. Vascular surgery surgery recommended nephrology consultation for SANDEEP prophylaxis. Recommendations appreciated 2. Osteomyelitis -MRI demonstrates the following -Suspect osteomyelitis of the 1st distal phalanx and proximal phalanx -Possible acute versus chronic osteomyelitis 5th proximal phalanx -Possible osteomyelitis of the distal aspect of the 4th proximal phalanx -Mild marrow edema in the proximal 4th metatarsal shaft with chronic periosteal thickening may indicate chronic osteomyelitis -Podiatry consulted recommendations appreciated. 3. CKD stage 4 -Nephrology consulted for SANDEEP ppx. Recommendations appreciated. 4. Diabetes mellitus Patient will be on carb consistent diet and sliding scale insulin -Still not controlled, will increase her levemir to BID 5. CHF Pro BNP is elevated We will obtain an echocardiogram 2 g salt diet We will continue diuretics 6. Atrial fibrillation Continue Rivaroxaban Continue Coreg 7. Coronary artery disease Continue clopidogrel, Coreg, Isordil Troponin negative x2 8. Hypertension Continue amlodipine, Coreg, hydralazine, Imdur, and diuretics 9. Restless leg syndrome Continue allopurinol 10. Anxiety/depression Continue sertraline and as needed hydroxyzine 11. GERD Continue omeprazole 12. DVT prophylaxis On Rivaroxaban VS, I&O, 24H, Fishbone Vital Signs/I&O Vital Signs Date Time Temp Pulse Resp B/P (MAP) Pulse Ox O2 Delivery O2 Flow Rate FiO2 06/24/20 19:31 99.9 65 18 139/56 (83) 97 Room Air I&O- Last 24 Hours up to 6 AM 06/24/20 06:00 Intake Total 770 ml Output Total 1500 ml Balance -730 ml Laboratory Data 24H LABS Laboratory Tests 2 06/23/20 20:12: Bedside Glucose (Misc Panel) 356H 06/24/20 06:14: Nucleated Red Blood Cells % (auto) 0.0, Anion Gap 8, Glomerular Filtration Rate 24.5L, Calcium Level 8.5L 06/24/20 10:09: KL-Imm-O-Type Natriuretic Peptide 7822H, Vancomycin Level Trough 15.5 06/24/20 11:38: Bedside Glucose (Misc Panel) 254H 06/24/20 16:42: Bedside Glucose (Misc Panel) 288H CBC/BMP Laboratory Tests 06/24/20 06:14 Microbiology Microbiology 06/22/20 Gram Stain - Final, Resulted 06/22/20 Wound Culture - Preliminary, Resulted Strep Agalactiae Group B 06/22/20 Blood Culture - Preliminary, Resulted No Growth after 48 hours. All Specime... 06/22/20 Blood Culture - Preliminary, Resulted No Growth after 48 hours. All Specime... OLYA MEDINA DO Jun 24, 2020 19:59
[2020-06-24] MEDS: LEVEMIR (INSULIN DETEMIR) 1 UNITS/0.01ML SC SCH (20:15)
[2020-06-24] MEDS: SERTRALINE HCL 50 MG TAB PO SCH (20:16)
[2020-06-24] MEDS: RIVAROXABAN 20 MG TAB (XARELTO) PO SCH (20:16)
[2020-06-25] MEDS: ONDANSETRON 4MG/2ML VIAL IV PRN ×2 (05:02→18:08)
[2020-06-25 05:49] VITALS: BP 143/55
[2020-06-25 05:50] LABS: HEMATOCRIT 25.3 % (36.0-47.0); HEMOGLOBIN 8.3 g/dl (12.0-15.5); MEAN CORPUSCULAR HEMOGLOBIN 28.5 pg (27.0-33.0); MEAN CORPUSCULAR HGB CONC 32.8 g/dl (32.0-36.5); MEAN CORPUSCULAR VOLUME 86.9 fl (80.0-96.0); PLATELET COUNT, AUTOMATED 165 10^3/uL (150-450); RED BLOOD COUNT 2.91 10^6/uL (4.00-5.40); WHITE BLOOD COUNT 13.7 10^3/uL (4.0-10.0)
[2020-06-25 06:18] LABS: CALCIUM LEVEL 8.4 MG/DL (8.8-10.2); CREATININE FOR GFR 2.18 MG/DL (0.55-1.30)
[2020-06-25] MEDS: SALMETEROL DISKUS 50MCG INHALER (SEREVENT) INH SCH ×2 (07:49→19:52)
[2020-06-25] MEDS: TIOTROPIUM INHALER/CAPSULE (SPIRIVA) INH SCH (07:49)
[2020-06-25] MEDS: HumaLOG INSULIN (NovoLOG) PER UNIT SC SCH ×4 (08:16→21:00)
[2020-06-25] MEDS: SPIRONOLACTONE 25 MG TAB PO SCH (08:17)
[2020-06-25] MEDS: FUROSEMIDE 40 MG TAB PO SCH (08:17)
[2020-06-25] MEDS: FERROUS GLUCONATE 324 MG TAB PO SCH ×2 (08:17→21:28)
[2020-06-25] MEDS: rOPINIRole 1MG TAB PO SCH ×2 (08:17→21:29)
[2020-06-25] MEDS: LEVEMIR (INSULIN DETEMIR) 1 UNITS/0.01ML SC SCH ×2 (08:17→21:26)
[2020-06-25] MEDS: OMEPRAZOLE 20 MG CAP PO SCH (08:18)
[2020-06-25] MEDS: CALCITRIOL 0.25 MCG CAP (S0169) PO SCH (08:18)
[2020-06-25] MEDS: CLOPIDOGREL 75 MG TAB PO SCH (08:18)
[2020-06-25] MEDS: ACETAMINOPHEN TAB 650MG DOSE (2X325MG) PO PRN (08:18)
[2020-06-25] MEDS: CARVedilol 12.5 MG TAB PO SCH ×2 (08:19→21:29)
[2020-06-25] MEDS: POTASSIUM CHLORIDE 10 MEQ SR TABLET PO SCH ×2 (08:19→21:28)
[2020-06-25] MEDS: ISOSORBIDE DIN. (ISORDIL) 20 MG TAB PO SCH ×3 (08:20→21:27)
[2020-06-25] MEDS: **hydrALAZINE HCL** 25 MG TAB PO SCH ×2 (08:20→21:28)
[2020-06-25] MEDS: FLUTICASONE PROP 0.05% NASAL SPRAY 16 GM (FLONASE) NARES SCH (08:20)
[2020-06-25] MEDS: amLODIPine 10 MG TAB PO SCH (08:20)
[2020-06-25] MEDS: SANTYL OINT 30GM TOP SCH (08:21)
[2020-06-25] MEDS: VANCOMYCIN HCL 1,000 MG, VIAL MATE ADAPTER 1 EACH in D5W 250 ML IV SCH (11:24)
--- NOTE | 2020-06-25 12:29 | REP ---
INDICATION: abdominal pain COMPARISON: 11/09/2017 TECHNIQUE: Axial noncontrast images from the lung bases to the pubic symphysis with coronal and sagittal reformations. This CT examination was performed using the following dose reduction techniques: Automated exposure control, adjustment of mA and/or kv according to the patient's size, and use of iterative reconstruction technique. FINDINGS: Lung bases demonstrate mild lingular and bibasilar atelectasis. Liver, spleen, pancreas, bilateral adrenal glands and kidneys are essentially normal for noncontrast evaluation. Cholelithiasis noted without evidence for acute cholecystitis by CT evaluation. The enteric system is without obstruction or acute inflammatory process few scattered sigmoid diverticula noted without acute diverticulitis. Pelvis demonstrates normal bladder and evidence for prior hysterectomy. No pelvic fluid or ascites. No free air. No adenopathy. Atherosclerotic changes to the aorta and vasculature noted without aneurysm. 1 cm fat containing periumbilical hernia identified without acute changes. Musculoskeletal structures demonstrate age-related changes without acute osseous abnormality. IMPRESSION: 1. Minimal lingular and bibasilar atelectasis. 2. Cholelithiasis without evidence for acute cholecystitis. 3. Further nonacute findings as described above. 4. No acute abdominopelvic pathology appreciated. No ascites, focal inflammatory stranding, adenopathy, or free air. <Electronically signed by Piero Mast > 06/25/20 [id number]
[2020-06-25 15:02] VITALS: BP 134/56
--- NOTE | 2020-06-25 19:44 | IPNPDOC ---
Subjective Date Seen The patient was seen on 06/25/20. Subjective Chief Complaint/HPI Patient is a 69-year-old female with CHF, CAD, atrial fibrillation on anticoagulation, insulin-dependent diabetes, hypertension, COPD, CAD, and JEFFERY who is here for diabetic foot ulcer/cellulitis. Dr. Cross debrided L foot on 06/23/2020. Vascular surgery was consulted for evaluation, but will need nephrology to help with contrast induced nephrology prevention. Nephrology saw patient today and decreased diuretic dose. Pending creatinine results. Otherwise, she was having intermittent abdominal pain. Denies fever, chest pain, dyspnea, or dysuria. Constitutional: Denies: Fever Pulmonary: Denies: Dyspnea Cardiovascular: Denies: Chest Pain Gastrointestinal: Reports: Abdominal Pain (intermittent) Genitourinary: Denies: Dysuria Objective Physical Examination General Exam: Positive: Alert, Cooperative, Mild Distress Eye Exam: Positive: EOMI; Negative: Sclera icteric ENT Exam: Positive: Atraumatic Neck Exam: Positive: Supple Chest Exam: Positive: Diminished Heart Exam: Positive: Rate Normal Abdomen Exam: Positive: Normal bowel sounds, Soft Extremity Exam: Positive: Edema Skin Exam: Positive: Breakdown (left big toe ulcer) Neuro Exam: Positive: Cranial Nerves 3-12 NL Psych Exam: Positive: Mental status NL, Mood NL Assessment /Plan Assessment Patient is a 69-year-old female with CHF, CAD, atrial fibrillation on anticoagu lation, insulin-dependent diabetes, hypertension, COPD, CAD, and JEFFERY who is here for diabetic foot ulcer/cellulitis and possible osteomyelitis. Consulted Dr. Cross. He saw the patient, debrided, and consulted Dr. Zimmerman for vascular evaluation. Due to CKD status, will need nephrology to help with contrast induced nephropathy prophylaxis. Nephrology consulted. Patient my have EVERT[place], nephrology decreased diuretics. Otherwise, continuing with IV antibiotics. Wound culture grew Group B strep, Acinetobacter Baumannii, and coagulase negative staph. Will contact antibiotic stewardship about coagulase negative staph possibly being a contaminant. If it is, we may be able to de-escalate to single antibiotic such as levofloxacin. Plan/VTE VTE Prophylaxis Ordered?: Yes Plan 1. Left big toe diabetic foot ulcer We will obtain MRI of the left foot Due to allergies to penicillins, patient will be on vancomycin and cefepime Pending blood culture results and wound culture results -Podiatry, Dr. Cross, consulted, who consulted vascular surgery, Dr. Mitchell for vascular evaluation. Vascular surgery surgery recommended nephrology consul tation for SANDEEP prophylaxis. Recommendations appreciated 2. Osteomyelitis -MRI demonstrates the following -Suspect osteomyelitis of the 1st distal phalanx and proximal phalanx -Possible acute versus chronic osteomyelitis 5th proximal phalanx -Possible osteomyelitis of the distal aspect of the 4th proximal phalanx -Mild marrow edema in the proximal 4th metatarsal shaft with chronic periosteal thickening may indicate chronic osteomyelitis -Podiatry consulted recommendations appreciated. 3. [place] on CKD stage 4 -Nephrology consulted for SANDEEP ppx. Recommendations appreciated. -Baseline creatinine is 1.8. Nephrology decreased diuretics 4. Diabetes mellitus Patient will be on carb consistent diet and sliding scale insulin -Still not controlled, will increase her BID Levemir from 10units BID to 15units BID 5. CHF Pro BNP is elevated We will obtain an echocardiogram 2 g salt diet We will continue diuretics at decrease dosage 6. Atrial fibrillation Continue Rivaroxaban Continue Coreg 7. Coronary artery disease Continue clopidogrel, Coreg, Isordil Troponin negative x2 8. Hypertension Continue amlodipine, Coreg, hydralazine, Imdur, and diuretics 9. Restless leg syndrome Continue allopurinol 10. Anxiety/depression Continue sertraline and as needed hydroxyzine 11. GERD Continue omeprazole 12. DVT prophylaxis On Rivaroxaban VS, I&O, 24H, Fishbone Vital Signs/I&O Vital Signs Date Time Temp Pulse Resp B/P (MAP) Pulse Ox O2 Delivery O2 Flow Rate FiO2 06/25/20 16:34 147/55 06/25/20 15:02 98.9 58 20 97 Room Air I&O- Last 24 Hours up to 6 AM 06/25/20 06:00 Intake Total 1510 ml Output Total 1650 ml Balance -140 ml Laboratory Data 24H LABS Laboratory Tests 2 06/25/20 05:20: Nucleated Red Blood Cells % (auto) 0.0, Anion Gap 6L, Glomerular Filtration Rate 24.0L, Calcium Level 8.4L 06/25/20 11:57: Bedside Glucose (Misc Panel) 255H 06/25/20 16:42: Bedside Glucose (Misc Panel) 240H CBC/BMP Laboratory Tests 06/25/20 05:20 Microbiology Microbiology 06/22/20 Gram Stain - Final, Complete 06/22/20 Wound Culture - Final, Complete Strep Agalactiae Group B Acinetobacter Baumannii Comple Staphylococcus Sp Coag Neg 06/22/20 Blood Culture - Preliminary, Resulted No Growth after 72 hours. All specime... 06/22/20 Blood Culture - Preliminary, Resulted No Growth after 72 hours. All specime... OLYA MEDINA DO Jun 25, 2020 19:44
[2020-06-25] MEDS ORDERED: CEFEPIME HCL 1 GM in D5W MINI-BAG PLUS 50 ML IV SCH (21:00)
[2020-06-25] MEDS: SERTRALINE HCL 50 MG TAB PO SCH (21:27)
[2020-06-25] MEDS: RIVAROXABAN 20 MG TAB (XARELTO) PO SCH (21:27)
[2020-06-25 22:00] VITALS: BP 153/57
[2020-06-26] MEDS: SALMETEROL DISKUS 50MCG INHALER (SEREVENT) INH SCH ×2 (05:52→19:55)
[2020-06-26] MEDS: TIOTROPIUM INHALER/CAPSULE (SPIRIVA) INH SCH (05:53)
[2020-06-26 06:00] VITALS: BP 156/58
[2020-06-26 07:00] LABS: HEMATOCRIT 25.1 % (36.0-47.0); HEMOGLOBIN 7.9 g/dl (12.0-15.5); MEAN CORPUSCULAR HEMOGLOBIN 27.5 pg (27.0-33.0); MEAN CORPUSCULAR HGB CONC 31.5 g/dl (32.0-36.5); MEAN CORPUSCULAR VOLUME 87.5 fl (80.0-96.0); PLATELET COUNT, AUTOMATED 171 10^3/uL (150-450); RED BLOOD COUNT 2.87 10^6/uL (4.00-5.40)
[2020-06-26 07:16] LABS: CALCIUM LEVEL 8.8 MG/DL (8.8-10.2); CREATININE FOR GFR 2.3 MG/DL (0.55-1.30); GLOMERULAR FILTRATION RATE 22.5 (>45); POTASSIUM SERUM 4.1 MEQ/L (3.5-5.1)
--- NOTE | 2020-06-26 07:47 | CR ---
REASON FOR CONSULTATION: Foot ulcerations. HISTORY OF PRESENT ILLNESS: Oxana Clancy is a pleasant 69-year-old female who was admitted to the hospital with shortness of breath and ulcerations. She was having arterial ultrasound performed and had become ill and she was sent to the emergency room (ER) and was admitted due to this. She is a poor historian. Does not know the full history of her wound. She does state that she had followed up with Dr. Caballero at [facility] and that she had this wound for approximately two weeks. PAST MEDICAL HISTORY: Significant for congestive heart failure (CHF), coronary artery disease, atrial fibrillation, aortic valve status post replacement, diabetes with neuropathy, hypertension, chronic obstructive pulmonary disease (COPD), chronic kidney disease, depression, anxiety, iron deficiency anemia, obstructive sleep apnea, chronic back pain, gastroesophageal reflux disease (GERD) and restless leg syndrome. PAST SURGICAL HISTORY: Includes hysterectomy, hernia repair, carpal tunnel release, appendectomy, coronary artery bypass grafting (CABG), TAVR, left knee surgery, back surgery and right foot 5th metatarsal head excision. SOCIAL HISTORY: Denies smoking, denies alcohol. FAMILY HISTORY: Includes diabetes and heart failure. ALLERGIES: PENICILLIN. REVIEW OF SYSTEMS: Positive for subjective fevers, T-max 100.3, current temperature 99.1. LABORATORY REVIEW: White cell count is 11.2, ESR is 125, CRP 2.32. IMAGING STUDIES: Foot x-ray shows previous resection of the 5th metatarsal bone. The MRI shows some marrow edema of the first toe and phalanx possibly suggestive of osteomyelitis. PHYSICAL EXAMINATION: Lower extremity examination: Pedal pulses are nonpalpable. There is edema and erythema of the right foot stemming from an ulceration of the right hallux. There is some duskiness to this toe, but there is fair capillary refill even to the distal aspect of the toe. There is some necrotic wound at the distal and medial hallux. ASSESSMENT: 69-year-old diabetic female with peripheral vascular disease and right hallux gangrene. PLAN: Wound was dbrided using a dermal curette in excisional fashion. Wound was dbrided to good bleeding tissue. No probed bone or bone was exposed. Plan will be to consult for vascular surgery for further vascular workup and see if she is a candidate for angiogram. Start antibiotics, await culture results. Wound care including Santyl to be done daily. Will follow. Most likely the patient will be discharged on antibiotics with follow up with Dr. Caballero. Discussed that the toe may ultimately require amputation, but at this time it does not appear necessary. Will follow. [facility]
--- NOTE | 2020-06-26 07:48 | CR ---
REASON FOR CONSULTATION: Recommendations for SANDEEP Prophylaxis. CHIEF COMPLAINT: Patient was admitted because of right sided diabetic foot ulcer. HISTORY OF PRESENT ILLNESS: Oxana Clancy is a 69-year-old female with a past medical history of hypertension, diabetes mellitus type 2, insulin dependent, coronary artery disease, chronic renal disease stage 3 to early stage 4, baseline creatinine of around 1.8 as per previous records. She follows up with Dr. Camacho as an outpatient in the [facility]. She was supposed to have the right leg angiogram by Vascular Surgery and they refused to do the angiogram until the patient is cleared by Nephrology. The patient was found to have osteomyelitis in the right foot. Nephrology Services called on board for adjustment of her diabetic regimen and to give further recommendations for contrast induced nephropathy recommendations. I saw and evaluated the patient today morning at the bedside. She is afebrile, hemodynamically stable. She denies any chest pain or shortness of breath. PAST MEDICAL HISTORY: Past medical history of chronic renal disease stage 3, baseline creatinine 1.8, atrial fibrillation, status post aortic valve replacement with a porcine valve, diabetes mellitus type 2, insulin dependent, hypertension, COPD, history of depression and anxiety, anemia and chronic kidney disease, gastroesophageal reflux disease, restless leg syndrome. SURGICAL HISTORY: Status post hysterectomy in the past. History of hernia repair. Carpal tunnel release x2, appendectomy, coronary artery bypass grafting, aortic valve replacement, left knee surgery and back surgery. ALLERGIES: She is allergic to Penicillin. FAMILY HISTORY: No significant family history of end-stage renal disease requiring hemodialysis. SOCIAL HISTORY: The patient lives at home. She denies any smoking, illicit drug abuse or alcohol abuse. REVIEW OF SYSTEMS: Constitutional: She denies any fevers. She does report chills. Eyes: She denies any blurry vision, double vision. ENT: She denies any dysphagia, odynophagia. She does report bilateral ear pains. Cardiovascular: She reports history of coronary artery disease. She denies any chest pain. Respiratory: She denies any cough or phlegm. She reports chronic mild dyspnea. Gastrointestinal: She denies any nausea, vomiting. Genitourinary: She denies any dysuria, hematuria. Musculoskeletal: She reports right foot pain. Skin: She reports right foot ulcers. Central Nervous System: She denies any strokes or seizures. Hematological/Oncological: She reports history of diabetes mellitus type 2. She denies any easy bleeding. All other review of systems is negative. PHYSICAL EXAMINATION: GENERAL APPEARANCE: The patient is awake, alert, oriented x3, sitting up in the bed. VITAL SIGNS: Temperature is 98.6 degrees Fahrenheit, blood pressure 143/55, pulse is 61, respiratory rate of 18, saturating 91% on room air. Intake and Output urine output recorded as 2.1 liters yesterday and 100 mL so far today. Weight on the bed scale is 94.4 kg which is not reliable. There is a significant difference from the bed scale weight yesterday. HEAD AND NECK: Extraocular muscles intact. Pupils are equally round and reactive to light. Mucous membranes are moist. Neck is supple. There is no jugular venous distention. CARDIOVASCULAR: S1, S2, regular rate. EXTREMITIES: Trace edema of the left lower extremities. RESPIRATORY: Chest is clear to auscultation bilaterally. Bilaterally currently no rales or rhonchi. ABDOMEN: Soft, positive bowel sounds, nontender, no organomegaly. MUSCULOSKELETAL: She has a dressing on the right foot. C&S: No focal deficits. Power is 5/5 in all extremities. PSYCH: Normal mood and affect. LABORATORY REVIEW: CBC showed a WBC of 13.7, hemoglobin 8.3, platelets of 165. BMP showed sodium 133, potassium 4, chloride of 101, bicarbonate 26, BUN 43, creatinine is 2.1. BNP was 7,822 yesterday. MICROBIOLOGY: Wound culture is growing multiple organisms including Strept Agalactiae group B, acinetobacter bowmani and staph species Coag negative. IMAGING DATA: CAT scan of the abdomen and pelvis was done which showed minimal lingular and bibasilar atelectasis, cholelithiasis without evidence of acute cholecystitis. An MRI of the foot was done on June 23 which showed osteomyelitis involving the first distal phalanx and proximal phalanx, acute versus chronic osteomyelitis of the fifth proximal phalanx and possible osteomyelitis of the distal aspect of the fourth proximal phalanx. CURRENT INPATIENT MEDICATIONS: The patient's medications were all reviewed by myself and it includes IV Cefepime one gram q. 24, Vancomycin one gram IV daily, Tylenol p.r.n., DuoNebs, Amlodipine 10 mg daily, Calcitriol 0.25 mcg p.o. daily, Coreg 25 mg p.o. twice a day, Plavix 75 mg p.o. daily, iron tablets 325 mg p.o. twice daily. She is getting Lasix 40 mg p.o. twice daily, Spironolactone 25 mg p.o. daily, Hydralazine 25 mg p.o. twice a day, Levemir 10 units subcutaneously twice a day, insulin Lispro, Isosorbide 20 mg p.o. three times a day, Prilosec 40 mg p.o. daily, Potassium Chloride 10 mEq p.o. twice a day, Xarelto 20 mg p.o. q. h.s., Requip 2 mg p.o. twice a day, Salmeterol twice a day, Zoloft 100 mg q. h.s., Spiriva inhaler. ASSESSMENT AND PLAN: * Chronic kidney disease stage 4 The patients renal function is slightly worse than baseline. Her baseline creatinine is 1.8, creatinine on admission was 2.3. Today morning her creatinine is 2.1. There are no significant signs of volume overload at this time. I have decreased the Lasix dose to 40 mg daily and Spironolactone is also being stopped. * Congestive heart failure Echocardiogram report is not available at this time. Previous echo was done in September 2019 which showed diastolic dysfunction with LVEF around 75-80%. Continue Lasix 40 mg daily. Spironolactone is being stopped. Continue oral potassium at this time. * Anemia and chronic kidney disease - hemoglobin level is low. Some of that might be secondary to chronic inflammation or maybe iron deficiency because of foot wounds. Iron level is going to be checked, however I would avoid given IV iron because of active osteomyelitis. * Osteomyelitis in the right foot, multiple toes - The patient is currently getting Vancomycin and Cefepime. The rest of the management is as per Podiatry and Medical Team. * Hypertension - continue current dose of Amlodipine 10 mg p.o. daily, Coreg 25 mg p.o. twice a day, Hydralazine 25 mg p.o. twice a day and Isosorbide 20 mg p.o. three times a day. She is not a candidate for cheryl inhibitor or angiotensin receptor blockers. * Secondary hyperparathyroidism - continue current dose of Calcitriol 0.25 mcg p.o. daily. * Recommendations for contrast induced nephropathy prophylaxis I have already decreased the diuretic dose and once her volume status is optimal and creatinine is back to baseline, then she will be given gently hydration before going for the right leg angiogram. MTDD
[2020-06-26] MEDS: OMEPRAZOLE 20 MG CAP PO SCH (08:12)
[2020-06-26] MEDS: HumaLOG INSULIN (NovoLOG) PER UNIT SC SCH ×4 (08:15→20:08)
[2020-06-26] MEDS: ISOSORBIDE DIN. (ISORDIL) 20 MG TAB PO SCH ×3 (08:16→20:07)
[2020-06-26] MEDS: **hydrALAZINE HCL** 25 MG TAB PO SCH ×2 (08:17→20:06)
[2020-06-26] MEDS: CARVedilol 12.5 MG TAB PO SCH ×2 (08:18→20:07)
[2020-06-26] MEDS: CALCITRIOL 0.25 MCG CAP (S0169) PO SCH (08:19)
[2020-06-26] MEDS: rOPINIRole 1MG TAB PO SCH ×2 (08:19→20:05)
[2020-06-26] MEDS: POTASSIUM CHLORIDE 10 MEQ SR TABLET PO SCH (08:20)
[2020-06-26] MEDS: FUROSEMIDE 40 MG TAB PO SCH (08:20)
[2020-06-26] MEDS: FERROUS GLUCONATE 324 MG TAB PO SCH ×2 (08:20→20:07)
[2020-06-26] MEDS: CLOPIDOGREL 75 MG TAB PO SCH (08:21)
[2020-06-26] MEDS: FLUTICASONE PROP 0.05% NASAL SPRAY 16 GM (FLONASE) NARES SCH (08:21)
[2020-06-26] MEDS: amLODIPine 10 MG TAB PO SCH (08:25)
[2020-06-26] MEDS: SANTYL OINT 30GM TOP SCH (08:26)
[2020-06-26] MEDS: LEVEMIR (INSULIN DETEMIR) 1 UNITS/0.01ML SC SCH ×2 (09:28→20:08)
[2020-06-26 13:16] LABS: HEMOGLOBIN 7.8 g/dl (12.0-15.5); MEAN CORPUSCULAR HEMOGLOBIN 28.5 pg (27.0-33.0); MEAN CORPUSCULAR HGB CONC 32.5 g/dl (32.0-36.5); MEAN CORPUSCULAR VOLUME 87.6 fl (80.0-96.0); PLATELET COUNT, AUTOMATED 172 10^3/uL (150-450); RED BLOOD COUNT 2.74 10^6/uL (4.00-5.40); WHITE BLOOD COUNT 9.7 10^3/uL (4.0-10.0)
[2020-06-26] MEDS: NS 1,000 ML IV SCH (13:26)
[2020-06-26 13:34] LABS: PERCENT SATURATION 8.4 % (13.2-45.0)
[2020-06-26 13:50] VITALS: BP 153/48
[2020-06-26 16:09] VITALS: BP 153/86
[2020-06-26 16:25] VITALS: BP 142/86
[2020-06-26] MEDS ORDERED: VANCOMYCIN HCL 750 MG, VIAL MATE ADAPTER 1 EACH in D5W 250 ML IV SCH (18:00)
[2020-06-26 18:06] VITALS: BP 173/57
--- NOTE | 2020-06-26 19:57 | IPNPDOC ---
Subjective Date Seen The patient was seen on 06/26/20. Subjective Chief Complaint/HPI Patient is a 69-year-old female with CHF, CAD, atrial fibrillation on anticoagulation, insulin-dependent diabetes, hypertension, COPD, CAD, and JEFFERY who is here for diabetic foot ulcer/cellulitis. Dr. Cross debrided L foot on 06/23/2020. Vascular surgery was consulted for evaluation, but will need nephrology to help with contrast induced nephropathy prevention. Otherwise today, patient reports chronic dyspnea that has been unchanged. Denies fever, chest pain, abdominal pain, or dysuria. Objective Physical Examination General Exam: Positive: Alert, Cooperative, Mild Distress Eye Exam: Positive: EOMI; Negative: Sclera icteric ENT Exam: Positive: Atraumatic Neck Exam: Positive: Supple Chest Exam: Positive: Diminished Heart Exam: Positive: Rate Normal Abdomen Exam: Positive: Normal bowel sounds, Soft Extremity Exam: Positive: Edema Skin Exam: Positive: Breakdown (left big toe ulcer) Neuro Exam: Positive: Cranial Nerves 3-12 NL Psych Exam: Positive: Mental status NL, Mood NL Assessment /Plan Assessment Patient is a 69-year-old female with CHF, CAD, atrial fibrillation on anticoagulation, insulin-dependent diabetes, hypertension, COPD, CAD, and JEFFERY who is here for diabetic foot ulcer/cellulitis and possible osteomyelitis. Consu lted Dr. Cross. He saw the patient, debrided, and consulted Dr. Zimmerman for vascular evaluation. Due to CKD status, will need nephrology to help with contrast induced nephropathy prophylaxis. Nephrology consulted and recommendations appreciated. Initially decreased fluids, but renal function wors ened. Spoke with nephrology today. They recommended 1u pRBC to help with the renal function. Spoke with patient about the risks and benefits of blood products and she is agreeable to receiving a blood transfusion. Transfusing 1u pRBC today. Otherwise, continuing with IV antibiotics. Wound culture grew Group B strep, Acinetobacter Baumannii, and coagulase negative staph. It is felt that the coagulase negative staph is a contaminant. Will de-escalate to levofloxacin renally dosed. Today, her creatinine clearance using actual body weight is 35 (adjusted body weight 25). Since she has osteomyelitis, unadjusted levofloxacin would be 750mg q24 hours. Renally adjusted would be 750mg q48 hours. Plan/VTE VTE Prophylaxis Ordered?: Yes Plan 1. Left big toe diabetic foot ulcer We will obtain MRI of the left foot Due to allergies to penicillins, patient will be on vancomycin and cefepime Pending blood culture results and wound culture results -Podiatry, Dr. Cross, consulted, who consulted vascular surgery, Dr. Mitchell for vascular evaluation. Vascular surgery surgery recommended nephrology consultation for SANDEEP prophylaxis. Recommendations appreciated 2. Osteomyelitis -MRI demonstrates the following -Suspect osteomyelitis of the 1st distal phalanx and proximal phalanx -Possible acute versus chronic osteomyelitis 5th proximal phalanx -Possible osteomyelitis of the distal aspect of the 4th proximal phalanx -Mild marrow edema in the proximal 4th metatarsal shaft with chronic periosteal thickening may indicate chronic osteomyelitis -Podiatry consulted recommendations appreciated. 3. [place] on CKD stage 4 -Nephrology consulted for SANDEEP ppx. Recommendations appreciated. -Baseline creatinine is 1.8. Nephrology decreased diuretics -Decreasing diuretics has not yet had a positive effect. On 06/26/2020, spoke with patient about blood transfusion. Received 1u pRBC. 4. Diabetes mellitus Patient will be on carb consistent diet and sliding scale insulin -Still not controlled, will increase her BID Levemir from 10units BID to 15units BID 5. CHF Pro BNP is elevated We will obtain an echocardiogram 2 g salt diet We will continue diuretics at decrease dosage 6. Atrial fibrillation Continue Rivaroxaban Continue Coreg 7. Coronary artery disease Continue clopidogrel, Coreg, Isordil Troponin negative x2 8. Hypertension Continue amlodipine, Coreg, hydralazine, Imdur, and diuretics 9. Restless leg syndrome Continue allopurinol 10. Anxiety/depression Continue sertraline and as needed hydroxyzine 11. GERD Continue omeprazole 12. DVT prophylaxis On Rivaroxaban (renally dosed) VS, I&O, 24H, Fishbone Vital Signs/I&O Vital Signs Date Time Temp Pulse Resp B/P (MAP) Pulse Ox O2 Delivery O2 Flow Rate FiO2 06/26/20 18:18 173/60 06/26/20 18:06 98.4 59 18 93 Room Air 06/26/20 16:25 94.0 I&O- Last 24 Hours up to 6 AM 06/26/20 06:00 Intake Total 2080 ml Output Total 1550 ml Balance 530 ml Laboratory Data 24H LABS Laboratory Tests 2 06/25/20 20:27: Bedside Glucose (Misc Panel) 216H 06/25/20 22:37: Bedside Glucose (Misc Panel) 224H 06/26/20 06:38: Nucleated Red Blood Cells % (auto) 0.0, Anion Gap 6L, Glomerular Filtration Rate 22.5L, Calcium Level 8.8, Iron Level 20L, Total Iron Binding Capacity 237L, Transferrin % Saturation 8.4L, Ferritin 129 06/26/20 10:16: Vancomycin Level Trough 20.0 06/26/20 11:25: Bedside Glucose (Misc Panel) 244H 06/26/20 12:47: Nucleated Red Blood Cells % (auto) 0.0 06/26/20 16:36: Bedside Glucose (Misc Panel) 167H CBC/BMP Laboratory Tests 06/26/20 06:38 06/26/20 12:47 Microbiology Microbiology 06/22/20 Gram Stain - Final, Complete 06/22/20 Wound Culture - Final, Complete Strep Agalactiae Group B Acinetobacter Baumannii Comple Staphylococcus Sp Coag Neg 06/22/20 Blood Culture - Preliminary, Resulted No Growth after 72 hours. All specime... 06/22/20 Blood Culture - Preliminary, Resulted No Growth after 72 hours. All specime... OLYA MEDINA DO Jun 26, 2020 19:57
[2020-06-26] MEDS: SERTRALINE HCL 50 MG TAB PO SCH (20:07)
[2020-06-26] MEDS: RIVAROXABAN 15 MG TAB (XARELTO) PO SCH (20:07)
[2020-06-26] MEDS: LevoFLOXacin IV 750 MG in IV 1 EA IV SCH (21:49)
[2020-06-26 22:00] VITALS: BP 174/81
[2020-06-27] MEDS: ONDANSETRON 4MG/2ML VIAL IV PRN (02:22)
[2020-06-27 06:00] VITALS: BP 114/63
--- NOTE | 2020-06-27 06:48 | IPN ---
DATE: 06/26/2020 SUBJECTIVE: Miss Daigle is seen and examined this morning at the bedside. She denies any overnight events or complaints. Her diuretic was decreased yesterday but renal function is actually a little worse. She is pending angiogram. She remains afebrile the past 48 hours and is on combination Vancomycin and Cefepime with appropriate Vancomycin trough levels. PHYSICAL EXAMINATION: VITAL SIGNS: Temperature 99.0, pulse 58, respiratory rate 17, blood pressure 156/58, saturating 98% on room air. Intake yesterday was 2 liters. Urine output was 1,150. Weight on the bed scale today is not recorded. GENERAL APPEARANCE: The patient is seen lying in bed. Head of the bed is flat. Elderly female in no apparent distress. HEENT: There is visible pallor on exam. Extraocular muscles are intact. Tongue is moist. NECK: Supple. Jugular veins are not elevated. HEART: Regular, S1, S2. There is trace edema in the lower extremities. RESPIRATORY: Sounds are clear to auscultation bilaterally. She is comfortable on room air. There is no tachypnea or accessory muscle use. ABDOMEN: Soft and nontender. There are bowel sounds. There is a continuous glucose monitor on the right side. MUSCULOSKELETAL: The dressing on the right foot was not removed. She moves all four extremities on command. SKIN: Normal temperature and turgor. There is visible pallor. PSYCH: Normal mood and affect. LABORATORY STUDIES: White count 10.0, hemoglobin 7.9, platelets 171. Sodium 135, potassium 4.1, BUN 43, creatinine 2.3. IMAGING: CT abdomen and pelvis June 25 showed some atelectasis. There is no hydronephrosis. There is no identifiable fluid overload. INPATIENT MEDICATIONS: I asked the Primary Team to decrease Xarelto to 15 mg. I discontinued her potassium. Her remaining medications are unchanged from prior. PROBLEMS: 1. CKD stage 4 the patient's renal function is only slightly worse than her usual baseline. Her diuretics were already slightly decreased. She is receiving Lasix 40 mg p.o. once daily. To mitigate her risk factors for contrast induced nephropathy, I suggest to transfuse one unit packed red blood cells in view of significant anemia and this will also help with her intravascular volume. She is not yet optimized for arteriogram. 2. Diastolic congestive heart failure Volume status right now is reasonable. Her diuretic was decreased in view of upcoming contrast exposure. Continue Lasix 40 mg p.o. daily. Her Spironolactone and potassium have both been stopped. She is comfortable on room air with only minimal (trace) leg edema. 3. Anemia and chronic kidney disease - hemoglobin is down to 7.9 and significant anemia is a risk factor for contrast induced nephropathy. Hence discussed with Primary Team to transfuse one unit packed red blood cells to patient. She is on oral iron and she is not suitable for IV iron at present. I will start her on erythropoietin stimulating agent if her iron stores are adequate. 4. Left big toe diabetic ulcer and osteomyelitis- The patient is on Vancomycin and Cefepime with appropriate Vancomycin trough level and is pending arteriogram, once she is optimized for contrast exposure. 5. Atrial fibrillation please decrease Xarelto dose to 15 mg in view of GFR. She is rate controlled and on beta halle. 6. Hypertension - blood pressures are fairly acceptable and no changes are being made to the current regimen. MTDD
[2020-06-27 07:20] LABS: HEMATOCRIT 27.4 % (36.0-47.0); HEMOGLOBIN 9.3 g/dl (12.0-15.5); MEAN CORPUSCULAR HEMOGLOBIN 29.2 pg (27.0-33.0); MEAN CORPUSCULAR HGB CONC 33.9 g/dl (32.0-36.5); MEAN CORPUSCULAR VOLUME 85.9 fl (80.0-96.0); PLATELET COUNT, AUTOMATED 185 10^3/uL (150-450); RED BLOOD COUNT 3.19 10^6/uL (4.00-5.40); WHITE BLOOD COUNT 10.1 10^3/uL (4.0-10.0)
[2020-06-27 07:47] LABS: CALCIUM LEVEL 8.7 MG/DL (8.8-10.2); CREATININE FOR GFR 2.3 MG/DL (0.55-1.30); GLOMERULAR FILTRATION RATE 22.5 (>45); POTASSIUM SERUM 4.3 MEQ/L (3.5-5.1)
--- NOTE | 2020-06-27 07:53 | IPNPDOC ---
Date Seen The patient was seen on 06/27/20. Progress Note SUBJECTIVE:no c/o pain or fever. no issues per RN.s/p 1u rbc transfusion. no sob. no weakness or fatigue. no c/o dizziness or palpitations. OBJECTIVE PHYSICAL EXAMINATION: VITAL SIGNS: Please see below. LUNGS: CTAB HEART: S1S2 irregularly irregular ABD: obese NT ND +BS x4 quadrants EXT: no cyanosis bandaged left toe. SKIN: warm dry, pink in color labs/imaging: see below PROBLEMS: Left big toe diabetic foot ulcer Osteomyelitis [place] on CKD stage 4 Diabetes mellitus CHF Atrial fibrillation Coronary artery disease Hypertension Restless leg syndrome Anxiety/depression GERD PLAN: defer to nephrology for timing of contrast study, defer to vascular surgery if revascularization is warranted, and defer to podiatry for debridement. await recommendations and continue with all other meds and abx. Activity per surgery.renally dosed oral AC will need to be held if revascularization is recommended. VS, I&O, 24H, Fishbone Vital Signs/I&O Vital Signs Date Time Temp Pulse Resp B/P (MAP) Pulse Ox O2 Delivery O2 Flow Rate FiO2 06/27/20 06:00 98.2 62 17 114/63 (80) 95 Room Air 06/26/20 16:25 94.0 I&O- Last 24 Hours up to 6 AM 06/27/20 06:00 Intake Total 2830 ml Output Total 1725 ml Balance 1105 ml Laboratory Data 24H LABS Laboratory Tests 2 06/26/20 10:16: Vancomycin Level Trough 20.0 06/26/20 11:25: Bedside Glucose (Misc Panel) 244H 06/26/20 12:47: Nucleated Red Blood Cells % (auto) 0.0 06/26/20 16:36: Bedside Glucose (Misc Panel) 167H 06/26/20 19:57: Bedside Glucose (Misc Panel) 231H 06/27/20 06:53: Nucleated Red Blood Cells % (auto) 0.0, Anion Gap 6L, Glomerular Filtration Rate 22.5L, Calcium Level 8.7L CBC/BMP Laboratory Tests 06/26/20 12:47 06/27/20 06:53 Microbiology Microbiology 06/22/20 Gram Stain - Final, Complete 06/22/20 Wound Culture - Final, Complete Strep Agalactiae Group B Acinetobacter Baumannii Comple Staphylococcus Sp Coag Neg 06/22/20 Blood Culture - Preliminary, Resulted No Growth after 72 hours. All specime... 06/22/20 Blood Culture - Preliminary, Resulted No Growth after 72 hours. All specime... KERRI FOX MD Jun 27, 2020 07:53
[2020-06-27] MEDS: TIOTROPIUM INHALER/CAPSULE (SPIRIVA) INH SCH (08:49)
[2020-06-27] MEDS: SALMETEROL DISKUS 50MCG INHALER (SEREVENT) INH SCH ×2 (08:50→19:11)
[2020-06-27] MEDS: LEVEMIR (INSULIN DETEMIR) 1 UNITS/0.01ML SC SCH ×2 (08:54→21:52)
[2020-06-27] MEDS: HumaLOG INSULIN (NovoLOG) PER UNIT SC SCH ×4 (08:54→21:00)
[2020-06-27] MEDS: FLUTICASONE PROP 0.05% NASAL SPRAY 16 GM (FLONASE) NARES SCH (08:56)
[2020-06-27] MEDS: OMEPRAZOLE 20 MG CAP PO SCH (08:57)
[2020-06-27] MEDS: rOPINIRole 1MG TAB PO SCH ×2 (08:57→21:52)
[2020-06-27] MEDS: amLODIPine 10 MG TAB PO SCH (08:58)
[2020-06-27] MEDS: CLOPIDOGREL 75 MG TAB PO SCH (08:59)
[2020-06-27] MEDS: CARVedilol 12.5 MG TAB PO SCH ×2 (08:59→21:53)
[2020-06-27] MEDS: FUROSEMIDE 40 MG TAB PO SCH (09:00)
[2020-06-27] MEDS: ISOSORBIDE DIN. (ISORDIL) 20 MG TAB PO SCH ×3 (09:00→21:52)
[2020-06-27] MEDS: CALCITRIOL 0.25 MCG CAP (S0169) PO SCH (09:00)
[2020-06-27] MEDS: FERROUS GLUCONATE 324 MG TAB PO SCH ×2 (09:00→21:53)
[2020-06-27] MEDS: **hydrALAZINE HCL** 25 MG TAB PO SCH ×2 (09:00→21:54)
[2020-06-27] MEDS: SANTYL OINT 30GM TOP SCH (09:01)
[2020-06-27] MEDS: NS 1,000 ML IV SCH (13:35)
[2020-06-27] MEDS ORDERED: GI COCKTAIL 50ML BTL(HYOSCYAMINE/MAALOX/LIDOCAINE VISCOUS)(1:3:1) PO ONE (14:00)
--- NOTE | 2020-06-27 14:23 | ECHO ---
DATE OF PROCEDURE: 06/26/2020 Age: 69 Gender: Female Height: 155 cm Weight: 91 kg REFERRING PHYSICIAN: Dr. Austin Arreola INDICATION: Dyspnea. MEASUREMENTS: IVS 1.3 LV 4.8 LVPW 1.2 LA 4.2 Aorta 3.0 RV 3.4 IVC 2.4 Mitral E wave velocity 206, A wave 113 E prime septal 8.6 E prime lateral 6.9 Left atrial volume index 50 FINDINGS: The study is of acceptable technical quality considering the patient's body habitus, underlying sinus rhythm with ventricular rate approximately 60 beats per minute. Normal LV size with mild LVH and overall hyperdynamic LV systolic function. Estimated left ventricular ejection fraction (LVEF) 65 to 70%. No segmental wall motion abnormalities are appreciated. Right ventricle appears to be normal size and systolic function. Both atria are enlarged. There is a bioprosthesis in the aortic position which was poorly visualized, and I cannot comment on its structure. There are very prominent degenerative abnormalities of the mitral valve with very marked thickening of leaflets and mitral annular calcifications. Overall at least mild limitation of mobility based on 2D imaging. Tricuspid and pulmonic valves appear normal. No pericardial effusion is noted. Inferior vena cava is dilated, and there is minimal collapse with inspiration indicative of very high central venous pressure. Aortic root is normal. Aortic arch and abdominal aorta were not well seen. Doppler interrogation of aortic bioprosthesis reveals no insufficiency and mean gradient 21 mmHg. Calculated aortic valve area was 1.3 cm square. Peak transmitral gradient is 15 mmHg and mean 5 mmHg indicative of moderate mitral stenosis. Calculated mitral valve area was 1.6 cm square. Trace insufficiency of mitral valve is also seen. There is mild tricuspid insufficiency. Calculated pulmonary artery pressure is approximately 55-60 mmHg corresponding to moderately severe pulmonary hypertension. Trace pulmonic insufficiency is noted. Evaluation of diastolic function is affected by mitral valvular disease but at least grade 2 diastolic dysfunction is present. CONCLUSIONS: 1. Study is of acceptable technical quality. The patient is in sinus rhythm with ventricular rate around 60 beats per minute. 2. Normal LV size with mild left ventricular hypertrophy, hyperdynamic LV systolic function, unable to reliably estimate diastolic dysfunction but it is likely that at least grade 2 diastolic dysfunction is present. 3. Poorly visualized bioprosthesis in the aortic position with no insufficiency and mild stenosis with mean gradient 21 mmHg. 4. Very prominent degenerative abnormalities of mitral valve resulting in functionally moderate mitral stenosis (mean gradient 5 mmHg) and trace insufficiency. 5. High central venous pressure. 6. Moderately severe pulmonary hypertension (estimated PAP 55-60 mmHg). COMMENTS: SBE prophylaxis is recommended. The study is most consistent with diastolic congestive heart failure likely as a combination of valvular heart disease and diastolic dysfunction. MTDD
[2020-06-27 14:30] VITALS: BP 118/72
--- NOTE | 2020-06-27 15:12 | IPN ---
DATE: 06/27/2020 SUBJECTIVE: Oxana is seen and examined this morning at the bedside. She received one unit packed red blood cells yesterday. Hemoglobin has come up to 9.3. Her renal function has plateaued with Cr 2.3 the past 2 days. She reports she has been walking to the bathroom and denies dyspnea with exertion and remains comfortable on room air. PHYSICAL EXAMINATION: VITAL SIGNS: Temperature 98.2, pulse 62, respiratory rate 17, blood pressure 114/63, saturating 95% on room air. Intake yesterday was 3 liters. Urine output was 1,400. There were two bowel movements. Weight on the bed scale today is not recorded. GENERAL APPEARANCE: The patient is seen lying in bed, awake, alert, oriented, interactive, conversational, in no apparent distress. HEENT: The extraocular muscles are intact. Tongue is moist. NECK: Supple. Jugular veins are not elevated. HEART: Irregularly irregular, S1, S2. EXTREMITIES: Trace leg edema. Extremities show trace edema. The left toe is bandaged. LUNGS: Clear to auscultation bilaterally. She is comfortable on room air. ABDOMEN: Soft and nontender. There are bowel sounds. SKIN: Normal temperature and turgor. NEUROLOGICAL: Oriented x3, at baseline mentation, interactive and conversational. LABORATORY STUDIES: Sodium 134, potassium 4.3, BUN 42, creatinine 2.3, hemoglobin 9.3, white count 10. INPATIENT MEDICATIONS: Xarelto was decreased to 15 mg. She was started on Levaquin 750 mg every 2 days. Her insulin was adjusted by the Primary Team and her Vancomycin was stopped. The remainder of medications are unchanged from prior. PROBLEMS: 1. Acute kidney injury on chronic kidney disease stage 4 baseline creatinine is around 1.8. She is pending arteriogram and I discussed the risk of contrast induced nephropathy with her including possible dialysis needs. Her anemia has improved, her diuretics have been decreased, and there is not much more to do in the way of optimization. If her Cr is < 2.2 tomorrow she can proceed with angiogram. Recommend to use minimal amount of dye as possible and we will give 1 L of normal saline on the day of procedure. 2. Anemia with chronic kidney disease and iron deficiency. She is not suitable for IV iron in view of osteomyelitis. She received one unit of packed red blood cells since anemia is a risk factor for contrast induced nephropathy. Hemoglobin has improved. 3. Diastolic congestive heart failure. Volume status is reasonable. Continue once daily Lasix. Spironolactone has already been stopped. 4. Left big toe diabetic ulcer and osteomyelitis She is pending arteriogram. I discussed risk of dye induced nephropathy including possible dialysis with her. Antimicrobials as per Primary Team - now on Levaquin which is renally dosed. 5. Atrial fibrillation she is on renally dosed Xarelto and rate controlled with beta halle. 6. Hypertension - continue with current antihypertensive regimen. Blood pressures this morning are well controlled. MTDD
[2020-06-27] MEDS ORDERED: GI COCKTAIL 50ML BTL(HYOSCYAMINE/MAALOX/LIDOCAINE VISCOUS)(1:3:1) PO PRN (20:00)
[2020-06-27] MEDS: SERTRALINE HCL 50 MG TAB PO SCH (21:53)
[2020-06-27] MEDS: RIVAROXABAN 15 MG TAB (XARELTO) PO SCH (21:53)
[2020-06-27 22:00] VITALS: BP 140/73
[2020-06-28 06:00] VITALS: BP 170/61
[2020-06-28 06:03] LABS: BLOOD UREA NITROGEN 38 MG/DL (7-18); CALCIUM LEVEL 8.8 MG/DL (8.8-10.2); CARBON DIOXIDE LEVEL 25 MEQ/L (21-32); CHLORIDE LEVEL 105 MEQ/L (98-107); CREATININE FOR GFR 2.11 MG/DL (0.55-1.30); GLOMERULAR FILTRATION RATE 24.9 (>45); GLUCOSE, FASTING 192 MG/DL (70-100); POTASSIUM SERUM 4.3 MEQ/L (3.5-5.1); SODIUM LEVEL 137 MEQ/L (136-145)
[2020-06-28] MEDS ORDERED: NITROGLYCERIN 0.4 MG SUBL TABLET SL STA (07:34)
--- NOTE | 2020-06-28 07:44 | IPNPDOC ---
Date Seen The patient was seen on 06/28/20. Progress Note SUBJECTIVE: c/o epigastric discomfort. "I think it's my reflux." no chest pain, pressure, sob. denies radiation 4/10 achy pain . slightly better with gi cocktail yesterday. no c/o leg or foot pain. OBJECTIVE PHYSICAL EXAMINATION: VITAL SIGNS: Please see below. GEN: AAOx 3. HEENT: no JVD LUNGS: CTAB AEBE HEART: S1S2 irregularly irregular ABD: obese NT ND +BS x4 quadrants no HSM EXT: no cyanosis bandaged left toe. trace to 1+ edema SKIN: warm dry, pink in color labs/imaging: see below PROBLEMS: Left big toe diabetic foot ulcer (culture: grp b strep, coag neg staph, acinetobacter) Osteomyelitis PAD moderate mitral stenosis moderately sever pulmonary hypertension (55-60mmHg) [place] on CKD stage 4 Diabetes mellitus CHF grade 2 diastolic dysfunction, compensated Atrial fibrillation Coronary artery disease Hypertension, uncontrolled. Restless leg syndrome Anxiety/depression GERD PLAN: creatinine 2.11 today, and per nephrology, if improved creatinine, may do contrast study. Defer to vascular surgery to decide if revascularization is needed to improve healing. continue renally dosed levaquin. no fever or chills. due to c/o epigastric pain, trial of prn gi cocktail, check card daily, ekg, and nitro/morphine for now. on hydralazine and nitrates for bp control, which will b e adjusted. VS, I&O, 24H, Fishbone Vital Signs/I&O Vital Signs Date Time Temp Pulse Resp B/P (MAP) Pulse Ox O2 Delivery O2 Flow Rate FiO2 06/28/20 06:00 98.4 55 18 170/61 (97) 99 Room Air 06/26/20 16:25 94.0 I&O- Last 24 Hours up to 6 AM 06/28/20 06:00 Intake Total 570 ml Output Total 2150 ml Balance -1580 ml Laboratory Data 24H LABS Laboratory Tests 2 06/27/20 12:26: Bedside Glucose (Misc Panel) 314H 06/27/20 16:55: Bedside Glucose (Misc Panel) 178H 06/27/20 21:21: Bedside Glucose (Misc Panel) 212H 06/28/20 05:24: Anion Gap 7L, Glomerular Filtration Rate 24.9L, Calcium Level 8.8 CBC/BMP Laboratory Tests 06/28/20 05:24 Microbiology Microbiology 06/22/20 Gram Stain - Final, Complete 06/22/20 Wound Culture - Final, Complete Strep Agalactiae Group B Acinetobacter Baumannii Comple Staphylococcus Sp Coag Neg 06/22/20 Blood Culture - Final, Complete NO GROWTH AFTER 5 DAYS 06/22/20 Blood Culture - Final, Complete NO GROWTH AFTER 5 DAYS KERRI FOX MD Jun 28, 2020 07:32
--- NOTE | 2020-06-28 07:44 | IPN ---
DATE: 06/27/2020 SUBJECTIVE: Patient seen and examined at bedside. She denies new complaints. PHYSICAL EXAMINATION: Vitals are reviewed. She has remained afebrile. Lower extremity examination: Erythema and edema in the right foot are improved. The toe is inspected. There is some remaining necrotic tissue at the medial aspect of the right hallux. The distal toe has some fibrin slough. There is some capillary refill to the toe. The toe is somewhat dusky in appearance. LABORATORY DATA: Labs are reviewed. White cell count is 10.1. ASSESSMENT: 69-year-old diabetic female with peripheral vascular disease. PLAN: Continue Santyl. Await decision if patient is able to have the angiogram; ideally this would be performed prior to any further aggressive debridement or if necessary amputation. If this is unable to be performed due to her renal status she may be able to be discharged with monitoring of her wound potentially by her original nursing assoc. At this time urgent amputation does not appear necessary, but again did discuss with patient that should wound worsen this would be required. KOBE
[2020-06-28] MEDS ORDERED: MORPHINE 2 MG/ML 1ML VIAL (J2270) IV ONE (07:45)
[2020-06-28] MEDS: TIOTROPIUM INHALER/CAPSULE (SPIRIVA) INH SCH (07:46)
[2020-06-28] MEDS: SALMETEROL DISKUS 50MCG INHALER (SEREVENT) INH SCH ×2 (07:46→19:48)
[2020-06-28] MEDS ORDERED: LEVEMIR (INSULIN DETEMIR) 1 UNITS/0.01ML SC ONE (08:00)
[2020-06-28] MEDS: HumaLOG INSULIN (NovoLOG) PER UNIT SC SCH ×4 (08:12→21:00)
[2020-06-28] MEDS: CARVedilol 12.5 MG TAB PO SCH ×2 (08:14→21:10)
[2020-06-28] MEDS: rOPINIRole 1MG TAB PO SCH ×2 (08:15→21:11)
[2020-06-28] MEDS: OMEPRAZOLE 20 MG CAP PO SCH (08:15)
[2020-06-28] MEDS: FUROSEMIDE 40 MG TAB PO SCH (08:15)
[2020-06-28] MEDS: ISOSORBIDE DIN. (ISORDIL) 20 MG TAB PO SCH ×3 (08:16→21:10)
[2020-06-28] MEDS: amLODIPine 10 MG TAB PO SCH (08:16)
[2020-06-28] MEDS: **hydrALAZINE HCL** 25 MG TAB PO SCH ×3 (08:16→21:09)
[2020-06-28] MEDS: CLOPIDOGREL 75 MG TAB PO SCH (08:17)
[2020-06-28] MEDS: CALCITRIOL 0.25 MCG CAP (S0169) PO SCH (08:17)
[2020-06-28] MEDS: FERROUS GLUCONATE 324 MG TAB PO SCH ×2 (08:17→21:09)
[2020-06-28] MEDS: SANTYL OINT 30GM TOP SCH (08:18)
[2020-06-28] MEDS: FLUTICASONE PROP 0.05% NASAL SPRAY 16 GM (FLONASE) NARES SCH (08:18)
[2020-06-28 08:42] LABS: CK-MB VALUE MASS 2.8 NG/ML (<3.6); CPK CREATINE PHOSPHOKINASE 63 U/L (26-192); MB/CK RELATIVE INDEX 4.44 (< OR =4); TROPONIN I < 0.02 NG/ML (< 0.10)
[2020-06-28] MEDS ORDERED: GI COCKTAIL 50ML BTL(HYOSCYAMINE/MAALOX/LIDOCAINE VISCOUS)(1:3:1) PO ONE (09:00)
--- NOTE | 2020-06-28 12:21 | IPNPDOC ---
Date Seen The patient was seen on 06/28/20. Progress Note Patient seen and examined. Her right toe is doing fine status post debridement with Dr. Cross in the dressing today is clean dry and intact. Her creatinine is starting to trend down, nephrology in the hospitalist team and given us the go- ahead to schedule her for an arteriogram of the right lower extremity to help with healing of her right great toe ulcer. We again went over the risks benefits and alternatives to arteriogram, as well as the risk for renal failure. I did discuss with her that we would use as little IV contrast is possible, but that no amount is 100% safe. She will be hydrated by the hospitalist team harjinder- procedure, we will give plenty of fluids intravenous during the procedure as well. After extensive conversation the patient is agreeable to proceed. Informed consent was obtained. The soon as we will be allowed to do this is likely Friday afternoon. The patient in the hospitalist team were notified of this. We appreciate the opportunity to participate in the care of this patient. VS, I&O, 24H, Fishbone Vital Signs/I&O Vital Signs Date Time Temp Pulse Resp B/P (MAP) Pulse Ox O2 Delivery O2 Flow Rate FiO2 06/28/20 08:30 17 06/28/20 08:14 154/60 06/28/20 06:00 98.4 55 99 Room Air 06/26/20 16:25 94.0 I&O- Last 24 Hours up to 6 AM 06/28/20 06:00 Intake Total 570 ml Output Total 2150 ml Balance -1580 ml Laboratory Data 24H LABS Laboratory Tests 2 06/27/20 12:26: Bedside Glucose (Misc Panel) 314H 06/27/20 16:55: Bedside Glucose (Misc Panel) 178H 06/27/20 21:21: Bedside Glucose (Misc Panel) 212H 06/28/20 05:24: Anion Gap 7L, Glomerular Filtration Rate 24.9L, Calcium Level 8.8, Total Creatine Kinase 63, Creatine Kinase MB 2.8, Creatine Kinase MB Relative Index 4.44H, Troponin I < 0.02 06/28/20 11:45: Bedside Glucose (Misc Panel) 191H CBC/BMP Laboratory Tests 06/28/20 05:24 Microbiology Microbiology 06/22/20 Gram Stain - Final, Complete 06/22/20 Wound Culture - Final, Complete Strep Agalactiae Group B Acinetobacter Baumannii Comple Staphylococcus Sp Coag Neg 06/22/20 Blood Culture - Final, Complete NO GROWTH AFTER 5 DAYS 06/22/20 Blood Culture - Final, Complete NO GROWTH AFTER 5 DAYS RACHELL MARS MD Jun 28, 2020 12:21
--- NOTE | 2020-06-28 13:44 | IPN ---
DATE: 06/28/2020 SUBJECTIVE: Oxana is seen and examined this morning at the bedside. She denies any new complaints. Made three liters of urine in the past 24 hours and her kidney function has slightly improved to a creatinine of 2.1 today. She is going to be scheduled for arteriogram on Friday afternoon. PHYSICAL EXAMINATION: VITAL SIGNS: Temperature 98.4, pulse 55, respiratory rate 18, blood pressure 154/60, saturating 99% on room air. Intake yesterday was 770, urine output was 3 liters, negative 2.2 liters, weight on the bed scale today is not recorded. GENERAL: Patient is seen lying in bed, awake, alert, oriented, interactive, in no apparent distress. HEENT: Extraocular muscles are intact. Tongue is moist. NECK: Supple, jugular veins are not elevated. HEART: Heart sounds are irregularly irregular, S1 and S2. There is 1+ edema in the right lower extremity and trace edema in the left lower extremity. LUNGS: Clear to auscultation bilaterally. No crackles or rales. ABDOMEN: Soft, obese and nontender. There are bowel sounds. EXTREMITIES: Bandaged left toe, 1+ edema in the right leg and trace edema in the left leg. SKIN: Some pallor, otherwise warm and dry. LABORATORY DATA: Sodium 137, potassium 4.3, creatinine 2.1, down from 2.3 the past two days. INPATIENT MEDICATIONS: She continues on really dosed Levaquin 750 mg IV q. 48 hourly. Her hydralazine was increased to 25 mg p.o. three times a day. The remainder of medications are unchanged from prior. PROBLEMS: 1. [place] on CKD Stage IV. Baseline creatinine is 1.8. Renal function has improved over the past couple of days from creatinine 2.3 down to 2.1. She has been reasonably optimized for contrast exposure including a decrease in her diuretic dose, correction of the anemia. She is scheduled for arteriogram on Friday. Vascular: Will use a minimal amount of dye as required and she will be hydrated with IV fluids pre and post contrast exposure. 2. Anemia secondary to chronic kidney disease and also iron deficiency. We will arrange for IV iron in the outpatient setting once her osteomyelitis is resolved. She received 1 unit of packed red blood cells over the course of this admission since anemia is a risk factor for contrast induced nephropathy. Will check a hemoglobin and hematocrit again tomorrow. 3. Diastolic congestive heart failure. Volume status is reasonable. She is slightly on the wet side. Continue once daily Lasix. I would not aggressively diurese her right now as she is pending contrast exposure. 4. Left big toe diabetic ulcer/osteomyelitis. Scheduled for arteriogram likely on Friday. Patient is aware of risk of dye induced nephropathy. She will be treated with pre and post contrast exposure IV fluids. She is receiving antimicrobials as per primary team now on renally dosed Levaquin. 5. Atrial fibrillation, she is on renally dosed Xarelto and rate controlled with beta halle. 6. Hypertension, blood pressures are slightly high and primary team increased hydralazine to three times a day. She is also on amlodipine, Carvedilol and Isosorbide. Some of the leg edema is likely from her vasodilators. MTDD
[2020-06-28 14:00] VITALS: BP 157/53
[2020-06-28 16:06] VITALS: BP 152/62
[2020-06-28] MEDS: LevoFLOXacin IV 750 MG in IV 1 EA IV SCH (21:08)
[2020-06-28] MEDS: LEVEMIR (INSULIN DETEMIR) 1 UNITS/0.01ML SC SCH (21:08)
[2020-06-28] MEDS: SERTRALINE HCL 50 MG TAB PO SCH (21:10)
[2020-06-28 22:00] VITALS: BP 178/60
[2020-06-28 22:18] VITALS: BP 170/68
[2020-06-29 06:00] VITALS: BP 164/60
[2020-06-29 06:08] LABS: HEMOGLOBIN 9.9 g/dl (12.0-15.5); MEAN CORPUSCULAR HEMOGLOBIN 28.1 pg (27.0-33.0); MEAN CORPUSCULAR HGB CONC 31.9 g/dl (32.0-36.5); MEAN CORPUSCULAR VOLUME 88.1 fl (80.0-96.0); PLATELET COUNT, AUTOMATED 227 10^3/uL (150-450); RED BLOOD COUNT 3.52 10^6/uL (4.00-5.40); WHITE BLOOD COUNT 10.5 10^3/uL (4.0-10.0)
[2020-06-29 06:26] LABS: CALCIUM LEVEL 8.8 MG/DL (8.8-10.2); CREATININE FOR GFR 2.03 MG/DL (0.55-1.30); POTASSIUM SERUM 4.7 MEQ/L (3.5-5.1)
[2020-06-29] MEDS: FLUTICASONE PROP 0.05% NASAL SPRAY 16 GM (FLONASE) NARES SCH (07:59)
--- NOTE | 2020-06-29 07:59 | IPNPDOC ---
Date Seen The patient was seen on 06/29/20. Progress Note SUBJECTIVE: no new complaints. epigastric discomfort comes and goes, but doesn't bother her today. no foot pain, fever, or chills OBJECTIVE PHYSICAL EXAMINATION: VITAL SIGNS: Please see below. GEN: AAOx 3. no acc resp mm use. speaks in full sentences HEENT: no JVD face is symmetric. moist mm LUNGS: CTAB AEBE no adventitious breath sounds HEART: S1S2 irregularly irregular no murmurs ABD: obese NT ND +BS x4 quadrants no HSM EXT: no cyanosis bandaged left toe. trace to 1+ edema SKIN: warm dry, pink in color labs/imaging: see below PROBLEMS: Left big toe diabetic foot ulcer (culture: grp b strep, coag neg staph, acinetobacter) Osteomyelitis PAD moderate mitral stenosis moderately sever pulmonary hypertension (55-60mmHg) [place] on CKD stage 4 Diabetes mellitus CHF grade 2 diastolic dysfunction, compensated Atrial fibrillation Coronary artery disease Hypertension, uncontrolled. Restless leg syndrome Anxiety/depression GERD PLAN: per nephrology, ns at 75ml/hr on the day of contrast. per vascular sx, Friday for angiogram. continue all other mgt. may need to titrate bp meds for better control. VS, I&O, 24H, Fishbone Vital Signs/I&O Vital Signs Date Time Temp Pulse Resp B/P (MAP) Pulse Ox O2 Delivery O2 Flow Rate FiO2 06/29/20 06:00 98.3 60 17 164/60 (94) 96 Room Air 06/26/20 16:25 94.0 I&O- Last 24 Hours up to 6 AM 06/29/20 06:00 Intake Total 1685 ml Output Total 2050 ml Balance -365 ml Laboratory Data 24H LABS Laboratory Tests 2 06/28/20 11:45: Bedside Glucose (Misc Panel) 191H 06/28/20 16:32: Bedside Glucose (Misc Panel) 240H 06/28/20 19:51: Bedside Glucose (Misc Panel) 244H 06/29/20 05:44: Nucleated Red Blood Cells % (auto) 0.0, Anion Gap 7L, Glomerular Filtration Rate 26.0L, Calcium Level 8.8 CBC/BMP Laboratory Tests 06/29/20 05:44 Microbiology Microbiology 06/22/20 Gram Stain - Final, Complete 06/22/20 Wound Culture - Final, Complete Strep Agalactiae Group B Acinetobacter Baumannii Comple Staphylococcus Sp Coag Neg 06/22/20 Blood Culture - Final, Complete NO GROWTH AFTER 5 DAYS 06/22/20 Blood Culture - Final, Complete NO GROWTH AFTER 5 DAYS KERRI FOX MD Jun 29, 2020 07:59
[2020-06-29] MEDS: FERROUS GLUCONATE 324 MG TAB PO SCH ×2 (08:00→20:29)
[2020-06-29] MEDS: amLODIPine 10 MG TAB PO SCH (08:00)
[2020-06-29] MEDS: CARVedilol 12.5 MG TAB PO SCH ×2 (08:00→20:28)
[2020-06-29] MEDS: rOPINIRole 1MG TAB PO SCH ×2 (08:00→20:29)
[2020-06-29] MEDS: ISOSORBIDE DIN. (ISORDIL) 20 MG TAB PO SCH ×3 (08:01→20:29)
[2020-06-29] MEDS: CALCITRIOL 0.25 MCG CAP (S0169) PO SCH (08:01)
[2020-06-29] MEDS: FUROSEMIDE 40 MG TAB PO SCH (08:01)
[2020-06-29] MEDS: SANTYL OINT 30GM TOP SCH (08:02)
[2020-06-29] MEDS: OMEPRAZOLE 20 MG CAP PO SCH (08:02)
[2020-06-29] MEDS: HumaLOG INSULIN (NovoLOG) PER UNIT SC SCH ×4 (08:03→20:27)
[2020-06-29] MEDS: TIOTROPIUM INHALER/CAPSULE (SPIRIVA) INH SCH (08:08)
[2020-06-29] MEDS: SALMETEROL DISKUS 50MCG INHALER (SEREVENT) INH SCH ×2 (08:09→20:10)
[2020-06-29] MEDS: ACETAMINOPHEN TAB 650MG DOSE (2X325MG) PO PRN (08:48)
[2020-06-29] MEDS: **hydrALAZINE** 10 MG TAB PO SCH ×5 (09:00→20:29)
[2020-06-29 14:25] VITALS: BP 147/62
--- NOTE | 2020-06-29 14:39 | IPN ---
DATE: 06/29/2020 SUBJECTIVE: Oxana seen and examined this morning at the bedside. She denies any overnight complaints. Blood pressures have been elevated. She reports she has been out of bed and ambulating back and forth to the bathroom. Denies dyspnea with exertion and notes stable leg edema. PHYSICAL EXAMINATION: Temperature 98.3, pulse 60, respiratory rate 17, blood pressure 164/60, saturating 96% on room air. Intake yesterday was 1 liter, urine output was 1300, net negative 300. Weight on the bed scale today is not recorded. General: Patient is seen lying in bed awake, alert, comfortable, in no apparent distress. HEENT: Extraocular muscles are intact. Tongue is moist. Neck: Supple. Jugular veins are not elevated. Heart: Sounds are irregularly irregular. Extremities: There is 1+ leg edema in the right lower extremity and trace edema in the left. No clubbing or cyanosis. Lungs: Clear to auscultation, no crackles, rales or rhonchi. Abdomen: Soft and nontender. There are bowel sounds. Skin: Shows some pallor, but is warm and dry. LABORATORY DATA: Sodium 137, potassium 4.7, bicarbonate 25, BUN 43, creatinine 2. White count 10.5, hemoglobin 9.9. INPATIENT MEDICATIONS: Note that: * Her I.V. Levaquin was stopped. * Her Plavix was held. * Her hydralazine was increased. * Her insulin was adjusted. * She was started on oral Levaquin 750 mg by mouth every 2 days. * Xarelto was stopped. The remainder of meds are unchanged from prior. PROBLEMS/PLAN: 1. [place] on CKD stage 4: Baseline creatinine is 1.8, creatinine today is 2 and has almost recovered back to baseline. Her electrolytes are acceptable. She is on once daily Lasix and is a little bit on the wet side, but not by much. She is optimized from a renal point of view for contrast exposure tomorrow with angiogram. 2. Diastolic congestive heart failure: Volume status is reasonable. She might be very slightly on the wet side. Continue once daily Lasix. Her peripheral edema is mild and in part due to amlodipine plus hydralazine and Isordil a very strong vasodilator regimen. Continue once daily Lasix. 3. Right great toe ulcer: Pending arteriogram of the right lower extremity on June 30. Recommend to use as little I.V. contrast as possible. She will receive normal saline in the harjinder procedure period and she is aware of the risk of dye induced nephropathy. She is optimized to proceed. 4. Hypertension: Blood pressures have been uncontrolled. Primary team has already increased her hydralazine. She continues on amlodipine, carvedilol and isosorbide. Some of the leg edema is from her vasodilators. 5. Anemia related to CKD 4 and iron deficiency: She is receiving oral iron at present and will receive I.V. iron in the outpatient setting once the infectious processes have resolved. KOBE
[2020-06-29] MEDS: LEVEMIR (INSULIN DETEMIR) 1 UNITS/0.01ML SC SCH (20:28)
[2020-06-29] MEDS: SERTRALINE HCL 50 MG TAB PO SCH (20:29)
[2020-06-29 22:00] VITALS: BP 160/72
[2020-06-30] MEDS: SODIUM CHLORIDE NASAL 0.65% SPRAY BTL (OCEAN) PRN (03:14)
[2020-06-30] MEDS ORDERED: LevoFLOXacin 750 MG TABLET PO SCH (06:00)
[2020-06-30 06:31] VITALS: BP 165/71
[2020-06-30] MEDS: TIOTROPIUM INHALER/CAPSULE (SPIRIVA) INH SCH (07:30)
[2020-06-30] MEDS: HumaLOG INSULIN (NovoLOG) PER UNIT SC SCH ×4 (07:30→20:32)
[2020-06-30] MEDS: NS 1,000 ML IV SCH ×2 (07:30→20:22)
[2020-06-30] MEDS: SALMETEROL DISKUS 50MCG INHALER (SEREVENT) INH SCH ×2 (07:30→19:21)
--- NOTE | 2020-06-30 07:35 | IPNPDOC ---
Date Seen The patient was seen on 06/30/20. Progress Note SUBJECTIVE: no c/o pain, fever, chills. arteriogram today is making her anxious. "I want to go home soon. " OBJECTIVE PHYSICAL EXAMINATION: VITAL SIGNS: Please see below. GEN: AAOx 3. no acc resp mm use. speaks in full sentences. a little anxious, no distress HEENT: no JVD face is symmetric. moist mm LUNGS: CTAB AEBE no adventitious breath sounds HEART: S1S2 irregularly irregular no murmurs ABD: obese NT ND +BS x4 quadrants no HSM EXT: no cyanosis bandaged left toe. trace to 1+ edema SKIN: warm dry, pink in color labs/imaging: see below PROBLEMS: Left big toe diabetic foot ulcer (culture: grp b strep, coag neg staph, acinetobacter) Osteomyelitis PAD moderate mitral stenosis moderately sever pulmonary hypertension (55-60mmHg) [place] on CKD . Diabetes mellitus CHF grade 2 diastolic dysfunction, compensated Atrial fibrillation Coronary artery disease Hypertension, uncontrolled. Restless leg syndrome Anxiety/depression GERD PLAN: arteriogram today, and per nephrology will need to prevent against contrast nephropathy. thus, dc lasix, start ns 75ml/hr. on oral abx. VS, I&O, 24H, Fishbone Vital Signs/I&O Vital Signs Date Time Temp Pulse Resp B/P (MAP) Pulse Ox O2 Delivery O2 Flow Rate FiO2 06/30/20 06:31 99.5 64 18 165/71 (102) 96 Room Air 06/26/20 16:25 94.0 I&O- Last 24 Hours up to 6 AM 06/30/20 06:00 Intake Total 1500 ml Output Total 920 ml Balance 580 ml Laboratory Data 24H LABS Laboratory Tests 2 06/29/20 11:32: Bedside Glucose (Misc Panel) 204H 06/29/20 16:40: Bedside Glucose (Misc Panel) 323H 06/29/20 20:16: Bedside Glucose (Misc Panel) 281H 06/30/20 06:10: Bedside Glucose (Misc Panel) 185H Microbiology Microbiology 06/22/20 Gram Stain - Final, Complete 06/22/20 Wound Culture - Final, Complete Strep Agalactiae Group B Acinetobacter Baumannii Comple Staphylococcus Sp Coag Neg 06/22/20 Blood Culture - Final, Complete NO GROWTH AFTER 5 DAYS 06/22/20 Blood Culture - Final, Complete NO GROWTH AFTER 5 DAYS KERRI FOX MD Jun 30, 2020 07:35
[2020-06-30] MEDS: OMEPRAZOLE 20 MG CAP PO SCH (08:24)
[2020-06-30] MEDS: rOPINIRole 1MG TAB PO SCH ×2 (08:24→20:24)
[2020-06-30] MEDS: CALCITRIOL 0.25 MCG CAP (S0169) PO SCH (08:25)
[2020-06-30] MEDS: **hydrALAZINE** 10 MG TAB PO SCH ×4 (08:25→20:26)
[2020-06-30] MEDS: ISOSORBIDE DIN. (ISORDIL) 20 MG TAB PO SCH ×3 (08:25→20:27)
[2020-06-30] MEDS: amLODIPine 10 MG TAB PO SCH (08:27)
[2020-06-30] MEDS: CARVedilol 12.5 MG TAB PO SCH ×2 (08:27→20:27)
[2020-06-30] MEDS: FERROUS GLUCONATE 324 MG TAB PO SCH ×2 (08:27→20:24)
[2020-06-30] MEDS: FLUTICASONE PROP 0.05% NASAL SPRAY 16 GM (FLONASE) NARES SCH (09:00)
[2020-06-30] MEDS ORDERED: LIDOCAINE 1% MDV 20ML VIAL As Ordered ONE ×2 (09:09→11:26)
[2020-06-30] MEDS ORDERED: fentaNYL 100 MCG/2 ML INJECTION (J3010) As Ordered ONE ×2 (09:10→11:25)
[2020-06-30] MEDS ORDERED: MIDAZOLAM INJ 2MG/2ML VIAL (J2250 PER 1MG) As Ordered ONE ×2 (09:10→11:25)
[2020-06-30] MEDS ORDERED: ISOVUE-300 61% 50ML VIAL As Ordered ONE ×2 (09:11→11:26)
[2020-06-30] MEDS ORDERED: hydrALAZINE 20MG/ML 1ML VIAL (J0360 PER 20MG) As Ordered ONE (09:30)
--- NOTE | 2020-06-30 11:06 | ROOPDOC ---
[facility] Report Of Operation Report of Operation DATE OF PROCEDURE: 06/30/20 PREPROCEDURE DIAGNOSES: Atherosclerosis of the [place] arteries with nonhealing wound right first toe POSTPROCEDURE DIAGNOSES: Same PROCEDURE: 1. Ultrasound-guided access left common femoral artery 2. Aortoiliofemoral arteriogram 3. Selection right common femoral artery and superficial femoral artery with right lower extremity arteriogram 4. Selection right popliteal artery with right lower extremity runoff 5. Selection distal anterior tibial artery and dorsal pedis artery with arteriogram 6. Angioplasty right anterior tibial artery with 2.5 x 220 Sin balloon and dorsal pedis artery with 2 x 100 Sin balloon 7. Attempt to cross chronic total occlusions right peroneal artery and right posterior tibial artery, aborted 8. Completion arteriograms 9. Mynx closure left common femoral artery SURGEON: Rachell Mitchell MD ANESTHESIA: Local anesthesia 10 mL lidocaine. Moderate intravenous conscious sedation with supervised by Dr. Mitchell. The patient was independently monitored by registered nurse assigned to the Department of radiology using automated blood pressure, EKG, and pulse oximetry. The detailed sedation records permanently stored in the hospital information system. The following is a brief sedation record: Start time 09:40, stop time 10:21, Versed 1.5 mg IV, fentanyl 75 g IV, heparin 3000 units IV, hydralazine 10 mg IV. CONTRAST: Isovue-300 30 mL INDICATION FOR PROCEDURE: This very pleasant 69-year-old patient with atherosclerosis the [place] arteries and a nonhealing wound of the right first toe status post debridement with Dr. Cross. Risks benefits alternatives to an arteriogram potential intervention were explained. The patient has renal insufficiency, we will use is minimal contrast as possible today. We did explain to her that no amount of contrast is 100% safe, but we will try to hydrate her as much as possible during the procedure and minimize contrast dosing. She was agreeable to proceed. Informed consent was obtained. INTERPRETATION: 1. The distal aorta and the bilateral iliac segments are all widely patent. No stenosis is noted in the common iliac arteries, hypogastric arteries, or external iliac arteries bilaterally. There is excellent flow in the common femoral arteries bilaterally. 2. The right common femoral arteries widely patent with good flow into the profunda in the SFA, and no stenosis or heavy plaque is noted. Mild ectasia, not flow-limiting, is noted intermittently, but overall the femoral vessels are widely patent. 3. Popliteal artery is widely patent and there is single-vessel thready runoff through a very diseased anterior tibial artery with sluggish flow from the mid calf to the ankle and no significant flow noted into the foot. The tibioperoneal trunk is patent, but the peroneal artery bifurcates into to collaterals near its origin and does not reconstitute. The posterior tibial artery is thready at its origin and is only patent a few centimeters and does not reconstitute. There is very scant flow getting to the foot, and is so minimal that it is difficult to see. 4. After angioplasty of the anterior tibial artery and dorsal pedis artery with 2.5 x 220 Sin balloon and 2 x 100 Sin balloon, there was widely patent flow, rapid, to the foot with minimal microvascular pedal circulation through the foot. We attempted to open up better flow through the dorsal pedis artery, but were minimally successful. 5. Attempts to cross the peroneal artery and posterior tibial artery on the right were aborted. No extravasation following attempts was noted. REPORT OF OPERATION: The patient was brought to the angiographic suite in stable condition. Her bilateral groins were prepped and draped in sterile fashion. A timeout was performed. Sedation was administered without complication. Local anesthesia was a paper inspector to skin and subcutaneous tissue over the left common femoral artery. A microneedle was used to access the artery under ultrasound guidance. A wire was passed through this access and the needle was removed. A 4 [place] sheath was placed and flushed with saline. A Glidewire and flushing catheter were advanced into the distal aorta. Aortoiliofemoral arteriograms were performed. Please see interpretation above. We then went up and over the bifurcation and selected the right common femoral artery and superficial femoral artery. Right lower extremity arteriogram was performed, please interpretation above. We then navigated a Glidewire into the distal popliteal artery The sheath for a 6 [place] by 90 cm sheath and flushed the sheath with saline. From the popliteal selection with the sheath, we performed a final arteriogram including the distal foot. Please see interpretation above. End ON a Glidewire advantage was navigated into the anterior tibial artery and we were able to cross through the heavy stenosis in the mid vessel. We then angioplasty the rayna gth of the vessel for three-minute inflations with a 2.5 x 220 Sin balloon. Completion arteriogram showed rapid flow through the anterior tibial artery after angioplasty, no dissection no extravasation no verbalization noted, but there was very minimal flow still crossing the ankle into the distal foot. Not much pedal flow was noted either. We were able to navigate the wire into the distal dorsal pedis artery, and we angioplastied with a 2 x 100 Sin balloon for three-minute inflation, but this did not significantly improve outflow through the foot and the pedal vessels. I suspect she has severe microvascular disease in the foot. We then navigated the wire into the tibioperoneal trunk and the peroneal artery. The wire was difficult to navigate away from the bifurcating collaterals, but eventually we were able to cross with a crossing catheter into the true lumen of the peroneal artery but only could navigate the wire a few centimeters distal to the patent aspect. We could not navigate further, and this was aborted. We then spent quite a bit of time navigating into the origin of the posterior tibial artery. This was very challenging as it was barely patent at the origin, and had several collaterals where it occluded a few centimeters distal to this. However, we were able to navigate the wire a few more centimeters distally in what appeared to be the true lumen, but quit contrast injection showed extravasation, minimal, and we attempted for an extended period time to try to navigate further, but this eventually was unsuccessful. Completion arteriogram showed there was no active extravasation at either the peroneal or posterior tibial arteries. We did have rapid flow through the anterior tibial artery to the foot, but still noted minimal pedal vessel flow, likely due to severe microvascular disease. Unfortunately, this was all we could offer to improve circulation to the foot. It is certainly better, but still not optimal. A Glidewire was used to exchange the sheath for short 6 [place] sheath in a Mynx closure device was deployed under fluoroscopic guidance. Pressure was held for 15 minutes and sterile dressings were applied. Good he mostasis was noted. The patient was taken to recovery and then back to her room in stable condition. She tolerated the procedure and the sedation well. ESTIMATED BLOOD LOSS: Approximately 5 mL. COMPLICATIONS: None. PLAN: Okay to resume diet and orders per primary team. Patient will be on bed rest flat with left leg straight until 4 PM this afternoon. After that, resume light activity as tolerated. Okay to resume Xarelto tonight, okay to resume Plavix in the morning. Okay to discharge from a vascular standpoint after bed rest if no hematoma left groin. We like to see the patient back in 1-2 weeks to check her perfusion and discuss options for right lower extremity arteriogram. Unfortunately, although we did significantly improve flow overall by opening up the anterior tibial artery, there is such limited flow through the pedal circulation of the foot that I am not sure this will be adequate for wound healing. Ideally, we would be able to open up the right posterior tibial artery, which is the better angiosome for the first toe, but this was not successful. We will see how she does with at least single-vessel rapid tibial flow. It is at least better than scant flow getting to the foot. We appreciate the opportunity to participate in the care of this patient. RACHELL MITCHELL MD Jun 30, 2020 11:06
[2020-06-30 11:50] VITALS: BP 164/82
[2020-06-30 12:20] VITALS: BP 166/68
[2020-06-30] MEDS: SANTYL OINT 30GM TOP SCH (13:12)
[2020-06-30] MEDS: CLOPIDOGREL 75 MG TAB PO SCH (13:12)
[2020-06-30 13:20] VITALS: BP 166/56
[2020-06-30 14:00] VITALS: BP 162/57
[2020-06-30] MEDS ORDERED: RIVAROXABAN 15 MG TAB (XARELTO) PO SCH (18:00)
[2020-06-30 19:53] VITALS: BP 161/57
[2020-06-30] MEDS: LEVEMIR (INSULIN DETEMIR) 1 UNITS/0.01ML SC SCH (20:24)
[2020-06-30] MEDS: SERTRALINE HCL 50 MG TAB PO SCH (20:25)
[2020-07-01 06:01] VITALS: BP 146/60
[2020-07-01] MEDS ORDERED: XARE15TA PO (07:24)
[2020-07-01] MEDS ORDERED: LEVO750T13 PO (07:24)
[2020-07-01] MEDS ORDERED: LASI20TA3 PO (07:26)
[2020-07-01] MEDS: SALMETEROL DISKUS 50MCG INHALER (SEREVENT) INH SCH (07:46)
[2020-07-01] MEDS: TIOTROPIUM INHALER/CAPSULE (SPIRIVA) INH SCH (07:46)
[2020-07-01] MEDS: SANTYL OINT 30GM TOP SCH (08:02)
[2020-07-01] MEDS: OMEPRAZOLE 20 MG CAP PO SCH (08:03)
[2020-07-01] MEDS: rOPINIRole 1MG TAB PO SCH (08:03)
[2020-07-01] MEDS: FLUTICASONE PROP 0.05% NASAL SPRAY 16 GM (FLONASE) NARES SCH (08:03)
[2020-07-01] MEDS: SODIUM CHLORIDE NASAL 0.65% SPRAY BTL (OCEAN) PRN (08:03)
[2020-07-01] MEDS: CALCITRIOL 0.25 MCG CAP (S0169) PO SCH (08:04)
[2020-07-01] MEDS: FERROUS GLUCONATE 324 MG TAB PO SCH (08:04)
[2020-07-01 08:06] LABS: BASO % 0.3 % (0.0-1.0); EOS # 0.2 10^3/uL (0.0-0.5); EOS % 1.9 % (0.0-3.0); HEMATOCRIT 28.1 % (36.0-47.0); HEMOGLOBIN 9.1 g/dl (12.0-15.5); LYMPH # 1.2 10^3/uL (1.5-5.0); LYMPH % 11.3 % (24.0-44.0); MEAN CORPUSCULAR HEMOGLOBIN 28.5 pg (27.0-33.0); MEAN CORPUSCULAR HGB CONC 32.4 g/dl (32.0-36.5); MEAN CORPUSCULAR VOLUME 88.1 fl (80.0-96.0); MONO # 0.6 10^3/uL (0.0-0.8); MONO % 5.9 % (0.0-5.0); NEUTROPHILS # 8.2 10^3/uL (1.5-8.5); NEUTROPHILS % 79.5 % (36.0-66.0); PLATELET COUNT, AUTOMATED 214 10^3/uL (150-450); RED BLOOD COUNT 3.19 10^6/uL (4.00-5.40); WHITE BLOOD COUNT 10.3 10^3/uL (4.0-10.0)
[2020-07-01] MEDS: ISOSORBIDE DIN. (ISORDIL) 20 MG TAB PO SCH (08:07)
[2020-07-01] MEDS: CARVedilol 12.5 MG TAB PO SCH (08:07)
[2020-07-01 08:08] VITALS: BP 174/68
[2020-07-01] MEDS: CLOPIDOGREL 75 MG TAB PO SCH (08:08)
[2020-07-01] MEDS: **hydrALAZINE** 10 MG TAB PO SCH (08:08)
[2020-07-01] MEDS: amLODIPine 10 MG TAB PO SCH (08:08)
[2020-07-01] MEDS: HumaLOG INSULIN (NovoLOG) PER UNIT SC SCH (08:08)
[2020-07-01 08:16] LABS: C REACTIVE PROTEIN QUANTITATIV 1.05 MG/DL (0.00-0.30); CALCIUM LEVEL 8.1 MG/DL (8.8-10.2); CREATININE FOR GFR 1.95 MG/DL (0.55-1.30); GLOMERULAR FILTRATION RATE 27.2 (>45); POTASSIUM SERUM 4.6 MEQ/L (3.5-5.1)
[2020-07-01] MEDS ORDERED: HYDR10TAB PO (08:49)
[2020-07-01 08:56] LABS: ERYTHROCYTE SEDIMENTATION RATE 109 mm/hr (0-30)
--- NOTE | 2020-07-01 09:13 | DS.PDOC ---
Discharge Summary General Date of Admission Jun 22, 2020 at 18:35 Date of Discharge 07/01/20 HOME WITH HOME CARE Discharge Summary DISCHARGE DIAGNOSES: Osteomyelitis of right foot-1st,4th-5th phalanx Right hallux gangrene Peripheral Arterial Disease Acute on CKD4 secondary hyperparathyroidism Diastolic CHF,grade 2 with normal systolic function EF65-70% Anemia of Chronic Kidney Disease Nonhealing diabetic ulcer DM2 chronic Afib uncontrolled HTN cholelithiasis LVH moderate mitral stenosis Moderately severe pulmonary hypertension (PAP 55-60mmHg) morbid obesity BMI 41.9 h/o aortic valve replacement COPD restless legs depression/anxiety GERD restless legs syndrome DISCHARGE MEDICATIONS: Please see below. ALLERGIES: Please see below. DISCHARGE INSTRUCTIONS: Activity and wound care per Vascular Surgery Dressing changes per Podiatry Immediate fu with Nephrology 1wk, Vascular surgery and podiatry 1-2 wks, PCP 1wk. CONSULTANTS: VASCULAR SURGER DR CHRISTOPHER NEPHROLOGY DR BERNDAN DOLL PODIATRY DR WILL COMPLICATIONS/CHIEF COMPLAINT: Diabetic Foot Ulcer. HOSPITAL COURSE: 69-year-old female with CHF, CAD, atrial fibrillation on anticoagulation, insulin-dependent diabetes, hypertension, COPD, CAD, obesity bmi 41, aortic valve replacement, moderately severe pulm htn, and JEFFERY presented to the ER with nonhealing right hallux gangrene, diabetic ulcer. Workup is positive for a WBC of 12.8 and an ESR of 125. In addition her CRP is 2.3 to and pro BNP of 4274. Foot x-ray demonstrates periosteal reaction of the fourth metatarsal and MRI osteo of 1st, 4-5th hallux. Dr. Will debrided on 06/23/20, and pt was given iv vanco. wound cx: coag neg staph, grp b strep, with incr wbc 14 on 06/25/20. cefepime was added. pt had worsening fluid overload and renal function, so nephrology was consulted for acute on ckd4, and recommended rbc transfusion due toworsening anemia for better wound healing. vascular consulted for arteriogram, but waited until 06/30/20 until creatinine improved to 1.99 from peak of 2.3 per nephrology recommendations.iv abx changed o levaquin q48hrs without fevers. pt underwent Angioplasty right anterior tibial artery with 2.5 x 220 Sin balloon and dorsal pedis artery with 2 x 100 Sin balloon on 06/30/20 after holding her oral ac and plavix for 2 days. no issues overnight after angioplasty, and pt is to fu w vascular in 1 wk. dressing changes per podiatry ,activity per vascular, and pt was given ivfluids to prevent contrast nephropathy, but place back on lasix at discharge. She is to fu w nephrology within 7 days for adjusment of diuretics. her hydralazine was increased to 30 mg QID due to uncontrolled SBP, and her spirolactone and k d/c'ed due to k 4.7. PHYSICAL EXAMINATION ON DISCHARGE: VITAL SIGNS: Please see below. General: awake, alert,no use of acc resp mm HEENT: Extraocular muscles are intact. Tongue is moist. Neck: Supple. no JVD Heart: Sounds are irregularly irregular. Extremities: There is 1+ leg edema in the right lower extremity and trace edema in the left. No clubbing or cyanosis. Lungs: Clear to auscultation, no crackles, rales or rhonchi. Abdomen: Soft and nontender. There are bowel sounds. Skin: Shows some pallor, but is warm and dry. LABORATORY DATA: Please see below. IMAGING: XR Right foot. Bones/joints: Since the previous x-ray, the distal half of the 5th metatarsal is absent. This is presumed to be an osteotomy although there is no history of surgery. No bone erosion of the stump of the metatarsal is seen. No bone erosion of the phalanges is identified. There is thickened periosteum of the 4th metatarsal. There are degenerative changes of multiple intertarsal and tarsal metatarsal joints. There is a large plantar calcaneal spur. Soft tissues: There is lateral soft tissue swelling. IMPRESSION: Presumed 5th metatarsal osteotomy. No bone erosion identified to indicate acute osteomyelitis. Periosteal reaction of the 4th metatarsal could represent chronic osteomyelitis or osteitis secondary inflammation. Recommend MRI. Electronically signed by: Edi Artis On 06/22/2020 17:22:25 PM CR Chest, 2 view PA, Lat 09/15/2019 8:09 AM FINDINGS: Lungs: Unremarkable. No consolidation. Pleural space: Unremarkable. No pleural effusion. No pneumothorax. Heart/Mediastinum: There is mild cardiomegaly. Bones/joints: Median sternotomy and valve replacement. IMPRESSION: No acute findings. Electronically signed by: Edi Artis On 06/22/2020 17:34:44 PM MRI RIGHT FOOT There is new ill-defined bone marrow edema and suspected osteomyelitis involving the 1st distal phalanx. There also appears to be a more mild degree of involvement of the 1st proximal phalanx. The patient has had prior amputation of the distal half of the 5th metatarsal. The remaining base of 5th metatarsal demonstrates no abnormal bone marrow signal. However, there is possible mild marrow edema and acute versus chronic osteomyelitis involving the 5th proximal phalanx. I also suspect edema and possible osteomyelitis of the distal aspect of the 4th proximal phalanx. Mild diffuse marrow edema is seen in the proximal half of the 4th metatarsal shaft with adjacent smooth chronic periosteal thickening and reaction. I suspect this represents chronic osteomyelitis. Diffuse severe arthritic changes are seen of the intertarsal and tarsal/metatarsal joints with areas of subchondral marrow edema and cystic change with associated joint space narrowing. There is mild spurring of the tarsal bones. There is diffuse soft tissue edema, with suspected cellulitis. No focal abscess collection is seen in the soft tissues. There is no tenosynovitis. IMPRESSION: Suspect osteomyelitis involving the 1st distal phalanx and proximal phalanx. Possible acute versus chronic osteomyelitis 5th proximal phalanx. Possible osteomyelitis of the distal aspect of the 4th proximal phalanx. Mild marrow edema in the pro ximal 4th metatarsal shaft with chronic periosteal thickening may indicate chronic osteomyelitis. <Electronically signed by Miller Cook > 06/23/[address] ABD/PELVIS W/O CONTRASST Lung bases demonstrate mild lingular and bibasilar atelectasis. Liver, spleen, pancreas, bilateral adrenal glands and kidneys are essentially normal for noncontrast evaluation. Cholelithiasis noted without evidence for acute cholecystitis by CT evaluation. The enteric system is without obstruction or acute inflammatory process few scattered sigmoid diverticula noted without acute diverticulitis. Pelvis demonstrates normal bladder and evidence for prior hysterectomy. No pelvic fluid or ascites. No free air. No adenopathy. Atherosclerotic changes to the aorta and vasculature noted without aneurysm. 1 cm fat containing periumbilical hernia identified without acute changes. Musculoskeletal structures demonstrate age- related changes without acute osseous abnormality. IMPRESSION: 1. Minimal lingular and bibasilar atelectasis. 2. Cholelithiasis without evidence for acute cholecystitis. 3. Further nonacute findings as described above. 4. No acute abdominopelvic pathology appreciated. No ascites, focal inflammatory stranding, adenopathy, or free air. <Electronically signed by Piero Mast > 06/25/20 1226 PROCEDURES PERFORMED DURING STAY: 06/23/20 PODIATRY WOUND DEBRIDEMENT-DR WILL ":the wound was dbrided in excisional fashion with dermal curetteincluding subcutaneous tissue and necrotic tissue." DATE OF PROCEDURE: 06/30/20 PREPROCEDURE DIAGNOSES: Atherosclerosis of the [place] arteries with nonhealing wound right first toe POSTPROCEDURE DIAGNOSES: Same PROCEDURE: 1. Ultrasound-guided access left common femoral artery 2. Aortoiliofemoral arteriogram 3. Selection right common femoral artery and superficial femoral artery with right lower extremity arteriogram 4. Selection right popliteal artery with right lower extremity runoff 5. Selection distal anterior tibial artery and dorsal pedis artery with arteriogram 6. Angioplasty right anterior tibial artery with 2.5 x 220 Sin balloon and dorsal pedis artery with 2 x 100 Sin balloon 7. Attempt to cross chronic total occlusions right peroneal artery and right posterior tibial artery, aborted 8. Completion arteriograms 9. Mynx closure left common femoral artery TIME SPENT ON DISCHARGE: 30 minutes. Vital Signs/I&Os Vital Signs Date Time Temp Pulse Resp B/P (MAP) Pulse Ox O2 Delivery O2 Flow Rate FiO2 07/01/20 08:08 174/68 07/01/20 08:08 70 07/01/20 06:01 99.5 18 96 Room Air 06/30/20 10:30 2 I&O- Last 24 Hours up to 6 AM 07/01/20 06:00 Intake Total 3200 ml Output Total 2600 ml Balance 600 ml Laboratory Data Labs 24H Laboratory Tests 2 06/30/20 11:43: Bedside Glucose (Misc Panel) 181H 06/30/20 17:12: Bedside Glucose (Misc Panel) 233H 06/30/20 20:00: Bedside Glucose (Misc Panel) 259H 07/01/20 06:05: Bedside Glucose (Misc Panel) 244H 07/01/20 07:33: Immature Granulocyte % (Auto) 1.1, Neutrophils (%) (Auto) 79.5H, Lymphocytes (%) (Auto) 11.3L, Monocytes (%) (Auto) 5.9H, Eosinophils (%) (Auto) 1.9, Basophils (%) (Auto) 0.3, Neutrophils # (Auto) 8.2, Lymphocytes # (Auto) 1.2L, Monocytes # (Auto) 0.6, Eosinophils # (Auto) 0.2, Basophils # (Auto) 0.0, Nucleated Red Blood Cells % (auto) 0.0, Anion Gap 6L, Glomerular Filtration Rate 27.2L, Calcium Level 8.1L, C-Reactive Protein, Quantitative 1.05H CBC/BMP Laboratory Tests 07/01/20 07:33 FSBS Laboratory Tests Test 06/30/20 11:43 06/30/20 17:12 06/30/20 20:00 07/01/20 06:05 Range/Units Bedside Glucose (Misc Panel) 181 233 259 244 80-115 MG/DL Microbiology Microbiology 06/22/20 Gram Stain - Final, Complete 06/22/20 Wound Culture - Final, Complete Strep Agalactiae Group B Acinetobacter Baumannii Comple Staphylococcus Sp Coag Neg 06/22/20 Blood Culture - Final, Complete NO GROWTH AFTER 5 DAYS 06/22/20 Blood Culture - Final, Complete NO GROWTH AFTER 5 DAYS Discharge Medications Scheduled Amlodipine Besylate (Amlodipine Besylate) 10 Mg Tablet, 10 MG PO DAILY, (Reported) Calcitriol (Calcitriol) 0.25 Mcg Capsule, 0.25 MCG PO DAILY, (Reported) Carvedilol (Carvedilol) 25 Mg Tablet, 25 MG PO BID, (Reported) Cholecalciferol (Vitamin D3) (Vitamin D3) 125 Mcg Capsule, 5,000 UNITS PO QHS, (Reported) Clopidogrel Bisulfate (Clopidogrel) 75 Mg Tablet, 75 MG PO DAILY, (Reported) Ferrous Gluconate (Ferrous Gluconate) 324 Mg Tablet, 324 MG PO BID, (Reported) Fluticasone Propionate (Flonase Allergy Relief) 9.9 Ml [place].susp, 2 SPRAY NARES DAILY, (Reported) Furosemide (Lasix) 20 Mg Tablet, 20 MG PO DAILY Hydralazine HCl (Hydralazine HCl) 10 Mg Tablet, 30 MG PO QID Insulin (Humulin R U-500) 500 Unit/1 Ml Vial, 70 UNITS SC BID, (Reported) with breakfast and lunch Insulin (Humulin R U-500) 500 Unit/1 Ml Vial, 86 UNITS SC QPM, (Reported) with dinner Isosorbide Dinitrate (Isosorbide Dinitrate) 20 Mg Tablet, 20 MG PO TID, (Reported) Levofloxacin (Levofloxacin) 750 Mg Tablet, 750 MG PO Q48H Multivitamin (Tab-A-Kristine) 1 Each Tablet, 1 TAB PO QHS, (Reported) Omeprazole (Omeprazole) 40 Mg Cap, 40 MG PO DAILY, (Reported) Rivaroxaban (Xarelto) 20 Mg Tablet, 20 MG PO QHS, (Reported) Rivaroxaban (Xarelto) 15 Mg Tablet, 15 MG PO DAILY@18 Ropinirole HCl (Ropinirole HCl) 1 Mg Tab, 2 MG PO BID, (Reported) Sertraline HCl (Sertraline HCl) 50 Mg Tab, 100 MG PO QHS, (Reported) Umeclidinium Brm/Vilanterol Tr (Anoro Ellipta 62.5-25 Mcg INH) 1 Each Blst.w.dev, 1 PUFF INH DAILY, (Reported) Scheduled PRN Hydroxyzine HCl (Hydroxyzine HCl) 10 Mg Tablet, 10 MG PO TID PRN for ANXIETY, (Reported) Allergies Coded Allergies: Penicillins (Verified Allergy, Mild, RASH/ITCHING, 06/22/20) KERRI FOX MD Jul 01, 2020 09:13
[2020-07-01] MEDS ORDERED: FUROSEMIDE 40 MG TAB PO ONE (10:00)
[2020-07-02] MEDS ORDERED: FUROSEMIDE 20 MG TAB PO SCH (09:00)
--- NOTE | 2020-07-03 12:52 | IPN ---
DATE: 06/30/2020 SUBJECTIVE: Patient seen and examined at bedside. She had her angioplasty this morning. Denies new complaints. PHYSICAL EXAMINATION: Vitals were reviewed. She remained afebrile. Lower extremity examination; there is some necrotic tissue of the medial aspect of the hallux. The distal wound has some granulation tissue. LABORATORY DATA: Labs were reviewed. White blood cell count 10.5. Creatinine 2.03. ASSESSMENT: A 69-year-old diabetic female with peripheral vascular disease and hallux ulceration. TREATMENT: Wound debridement was performed using dermal curette including subcutaneous tissue and necrotic tissue in excisional fashion. At this point, the hallux has some viability, although may ultimately still need to be amputated. Recommend that we give a trial for the angioplasty to see what improvement to her blood flow does to the hallux and this could be amputated if necessary in a week or two by her normal high school foreign language tutor. She should have follow-up with her high school foreign language tutor, Dr. Caballero in [place], within a week or two after discharge. MTDJoel
--- NOTE | 2020-07-03 12:53 | IPN ---
"DATE: 07/01/2020 SUBJECTIVE: Mrs. Clancy is seen this morning at her bedside. She is feeling well and wants to go home today. She denies any dyspnea, chest pain, nausea or vomiting. She had an angiogram of her right lower extremity yesterday. She has been receiving IV fluids and her diuretics have been on hold. The patient had developed significant edema and weight gain. PHYSICAL EXAMINATION: | VITAL SIGNS: Temperature 99.5 degrees Fahrenheit, heart is 75 beats per minute and respiratory rate 18 per minute. Blood pressure this morning was 174/68 mm of mercury and oxygen saturation 96% on room air. HEENT: Head is atraumatic. NECK: Supple and JVD is mildly elevated. HEART: Regular. LUNGS: Clear to auscultation. ABDOMEN: Soft, nontender, and mild ascites is present. EXTREMITIES: Without any cyanosis or clubbing. Lower extremity edema is at least 2+. NEUROLOGICAL: Awake and at her baseline mentation. LABORATORY STUDIES: Todays labs showed a WBC count of 10.3, hemoglobin 9.1, and hematocrit 28.1. Sodium 138, potassium 4.6, chloride 110, CO2 22, BUN 44, creatinine 1.95. C-reactive protein is 1.08. PROBLEMS: * Acute kidney injury superimposed on chronic kidney disease kidney function seems to be back to almost baseline. She does not have any uremic symptoms. * Hypervolemia and congestive heart failure her volume status is decompensated. She received IV fluids due to need for angiogram and her diuretics have been on hold. I am going to give her one dose of Lasix 40 mg by mouth today and we will resume her chronic diuretics with Lasix 20 mg daily at home. She will follow up in our office in one week for monitoring of her volume status. * Anemia her anemia is stable and there is no need for any added intervention. * Right foot wound - The patient is doing well and currently afebrile. She is not on any antibiotic at present. * Hypertension - blood pressure is somewhat high and most likely this is related to hypervolemia. I hope that this will get better with correction of her volume status. Disposition - The patient reports that she is going to be discharged to home today. She will follow up in our clinic in one week. KOBE"
== END 2020-07-01 12:10 | disposition home health service (06) | DRG 253 ==
LOC: M ED 15:42 → M ED INP 18:35 → ENRESERV 20:10 → M MS5PR 22:05
PROVIDERS: ADMIT Internal Medicine; ATTEND General Practice
PROC: 0JBQ0ZZ Excision of Right Foot Subcutaneous Tissue and Fascia, Open Approach (ICD-10-PCS; 2020-06-23)
PROC: 30233N1 Transfusion of Nonautologous Red Blood Cells into Peripheral Vein, Percutaneous Approach (ICD-10-PCS; 2020-06-26)
PROC: 0JBQ0ZZ Excision of Right Foot Subcutaneous Tissue and Fascia, Open Approach (ICD-10-PCS; 2020-06-30)
PROC: B40DYZZ Plain Radiography of Aorta and Bilateral Lower Extremity Arteries using Other Contrast (ICD-10-PCS; 2020-06-30)
PROC: 047P341 Dilation of Right Anterior Tibial Artery with Drug-eluting Intraluminal Device, using Drug-Coated Balloon, Percutaneous Approach (ICD-10-PCS; principal; 2020-06-30 13:30)
DX: E11.52 Type 2 diabetes mellitus with diabetic peripheral angiopathy with gangrene (principal); I50.32 Chronic diastolic (congestive) heart failure; N18.4 Chronic kidney disease, stage 4 (severe); M86.172 Other acute osteomyelitis, left ankle and foot; L03.115 Cellulitis of right lower limb; N17.9 Acute kidney failure, unspecified; I48.20 Chronic atrial fibrillation, unspecified; Z68.41 Body mass index [BMI] 40.0-44.9, adult; I70.261 Atherosclerosis of native arteries of extremities with gangrene, right leg; I70.213 Atherosclerosis of native arteries of extremities with intermittent claudication, bilateral legs; E11.621 Type 2 diabetes mellitus with foot ulcer; I25.10 Atherosclerotic heart disease of native coronary artery without angina pectoris; G25.81 Restless legs syndrome; I11.0 Hypertensive heart disease with heart failure; D50.9 Iron deficiency anemia, unspecified; K21.9 Gastro-esophageal reflux disease without esophagitis; E11.69 Type 2 diabetes mellitus with other specified complication; D63.1 Anemia in chronic kidney disease; I27.20 Pulmonary hypertension, unspecified; E66.01 Morbid (severe) obesity due to excess calories; F41.9 Anxiety disorder, unspecified; E11.22 Type 2 diabetes mellitus with diabetic chronic kidney disease; F32.9 Major depressive disorder, single episode, unspecified; J44.9 Chronic obstructive pulmonary disease, unspecified; G47.33 Obstructive sleep apnea (adult) (pediatric); L97.519 Non-pressure chronic ulcer of other part of right foot with unspecified severity; Z79.02 Long term (current) use of antithrombotics/antiplatelets; Z79.4 Long term (current) use of insulin; Z79.01 Long term (current) use of anticoagulants; Z79.899 Other long term (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 therapy; Z88.0 Allergy status to penicillin; Z95.3 Presence of xenogenic heart valve

== ENCOUNTER → 2020-06-22 | Outpatient (CLI) | payer MEDICARE ==
--- NOTE | 2020-06-22 15:40 | REP ---
INDICATION: ATHSCL AGDAAGUX ART W/ CLAUDICATION RENALDO LEGS COMPARISON: None. TECHNIQUE: Real time cook scale and color Doppler evaluation of the bilateral lower extremity arterial vasculature using linear high frequency transducer. FINDINGS: Cook scale and color images demonstrate moderate bilateral mixed atheromatous plaquing. There is evidence for occlusion at the distal left anterior tibial artery with subsequent downstream revascularization demonstrating minimal trickle flow. Normal triphasic wave patterns are noted to the level of the popliteal arteries followed by monophasic wave patterns bilaterally. A presumed Garcia's cyst is identified in the left popliteal fossa measuring 4.2 x 1.1 x 1.3 cm. YAHIR measurements were not obtained. Peak systolic velocities (cm/sec) Common femoral artery: Right 183.7; Left 171.4 Profunda femoris: Right 209.8; Left 146.2 SFA (proximal): Right 140.9; Left 119.0 SFA (mid): Right 143.0; Left 127.3 SFA (distal): Right 144.0; Left 133.9 Popliteal artery: Right 147.0; Left 110.7 SARITHA (prox.): Right 149.0; Left 117.9 Tibioperoneal trunk: Right 92.5; Left 196.7 FUEL ATTENDANT (prox.): Right 24.1; Left 88.9 FUEL ATTENDANT (distal): Right 53.4; Left 23.1 SARITHA (distal): Right 78.1; Left occluded IMPRESSION: 1. Moderate bilateral atheromatous plaquing. Area of occlusion noted in the left distal anterior tibial artery. 2. Presumed Garcia's cyst in the left popliteal fossa. <Electronically signed by Piero Mast > 06/22/20 [id number]
== END ==
LOC: M RAD 13:12
PROVIDERS: ATTEND Physician Assistant
DX: I70.213 Atherosclerosis of native arteries of extremities with intermittent claudication, bilateral legs (principal)

== ENCOUNTER 2020-07-05 18:49 | Inpatient (IN) | payer MEDICARE ==
[~2020-07-05] VITALS: Ht 154.9 cm; Wt 96.4 kg
[~2020-07-05 18:49] MED LIST changes: +AMLO1TAB25 PO; +CALC1CAP31 PO; +CHOL50003 PO; +CLOP75TA2 PO; +FLON1SPR NARES; +HYDR-3910 PO; +HYDR-643 PO; +HYDR10TAB PO; +LASI20TA3 PO; +LEVO750T13 PO; +XARE15TA PO
[2020-07-05 20:38] VITALS: BP 188/70
[2020-07-05] MEDS ORDERED: MOM 30ML SUSPENSION UDC PO PRN (21:45)
[2020-07-05] MEDS ORDERED: MAALOX 30 ML SUSP *UDC PO PRN (21:45)
[2020-07-05 22:32] LABS: BASO % 0.3 % (0.0-1.0); EOS # 0.3 10^3/uL (0.0-0.5); EOS % 2.3 % (0.0-3.0); HEMATOCRIT 27.5 % (36.0-47.0); HEMOGLOBIN 8.6 g/dl (12.0-15.5); LYMPH # 1.8 10^3/uL (1.5-5.0); LYMPH % 16.5 % (24.0-44.0); MEAN CORPUSCULAR HEMOGLOBIN 27.4 pg (27.0-33.0); MEAN CORPUSCULAR HGB CONC 31.3 g/dl (32.0-36.5); MEAN CORPUSCULAR VOLUME 87.6 fl (80.0-96.0); MONO # 0.7 10^3/uL (0.0-0.8); MONO % 6.6 % (0.0-5.0); NEUTROPHILS # 7.9 10^3/uL (1.5-8.5); NEUTROPHILS % 73.2 % (36.0-66.0); PLATELET COUNT, AUTOMATED 200 10^3/uL (150-450); RED BLOOD COUNT 3.14 10^6/uL (4.00-5.40); WHITE BLOOD COUNT 10.8 10^3/uL (4.0-10.0)
[2020-07-05 22:56] LABS: C REACTIVE PROTEIN QUANTITATIV 1.55 MG/DL (0.00-0.30); CALCIUM LEVEL 8.4 MG/DL (8.8-10.2); CREATININE FOR GFR 1.95 MG/DL (0.55-1.30); GLOMERULAR FILTRATION RATE 27.2 (>45); POTASSIUM SERUM 4.2 MEQ/L (3.5-5.1)
[2020-07-05] MEDS ORDERED: FUROSEMIDE 40MG/4ML VIAL (J1940) IV ONE (23:00)
[2020-07-05] MEDS ORDERED: HYDR10TAB PO (23:03)
[2020-07-05] MEDS ORDERED: LEVO750T13 PO (23:03)
[2020-07-05] MEDS ORDERED: FURO20TA2 PO (23:03)
[2020-07-05] MEDS ORDERED: XARE15TA PO (23:03)
[2020-07-05] MEDS ORDERED: PATIENT COMMENT (23:05)
[2020-07-05] MEDS: RAMELTEON 8 MG TAB (ROZEREM) PO SCH (23:32)
[2020-07-05] MEDS ORDERED: hydrOXYzine 10 MG TAB PO PRN (23:45)
--- NOTE | 2020-07-05 23:52 | HPEPDOC ---
[facility] Medical History & Physical Date of Admission Jul 05, 2020 Date of Service: Jul 05, 2020 Attending Physician: ROSEANN ILNDO MD History and Physical CHIEF COMPLAINT: Right leg swelling HISTORY OF PRESENT ILLNESS: Patient is a 69-year-old female who was recently admitted at [facility] for right great toe osteomyelitis with wound. Patient was discharged on 07/01/2020 on oral Levaquin for 3 doses. Patient took 2 of her doses and had 1 remaining however, earlier today she noticed increased leg swelling on the right leg and reported to the emergency department. Patient went to [facility] emergency department. Patient denies having any increased fevers or pain in her foot. Patient states that she was concerned because of the swelling so she went to the hospital. Patient was admitted and [facility] however, there was concern for cellulitis and osteomyelitis while on antibiotics as the patient may need a PICC line so the patient was transferred to [facility] for further treatment. PAST MEDICAL HISTORY: 1. Type 2 diabetes. 2. Anemia. 3. Coronary artery disease. 4. Congestive heart failure 5. Depression 6. GERD 7. History of aortic stenosis status post however 8. Hypertension 9. Chronic kidney disease PAST SURGICAL HISTORY: 1. Appendectomy. 2. Back surgery. 3. Carpal tunnel surgery. 4. Coronary artery bypass grafting surgery 5. Hernia repair 6. Hysterectomy 7. Transcatheter aortic valve replacement 8. Knee surgery SOCIAL HISTORY: Patient denies any cigarette use or alcohol. Patient also denies any history of IV drug use. 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 FAMILY HISTORY: History of CHF and diabetes in her parents ALLERGIES: Please see below. REVIEW OF SYSTEMS: General: Patient denies fevers HEENT: Patient denies headaches Cardiovascular: Patient denies chest pain Respiratory: Patient denies shortness of breath, cough GI: Patient denies abdominal pain, nausea, vomiting, diarrhea : Patient denies increased frequency or pain with urination Extremities: Patient reports swelling in her right lower extremity increased as described above in HPI Neurological: Patient denies numbness or tingling in legs Skin: Patient denies any new rashes or lesions. Hematologic: Patient reports easy bruising secondary to her anticoagulation medication Lymphatic: Patient denies any lumps lumps or bumps in neck, axilla, or groin HOME MEDICATIONS: Please see below. PHYSICAL EXAMINATION: VITAL SIGNS: See below General: Alert and oriented female patient who was laying in the hospital. I walked into the room. Patient did not appear to be in any acute distress HEENT: Normocephalic, atraumatic, moist mucous membranes. Neck: No lymphadenopathy or thyromegaly Cardiac: Regular rate and rhythm, 2/6 systolic murmur heard loudest over the second intercostal space on the right sternal border Pulm: Bibasilar inspiratory crackles heard about one third of the way up the lung pate on the back Abd: Nondistended, nontender to palpation, normal bowel sounds Ext: Patient had 2-3+ edema on the right foot up to the level of the mid phillips. Patient had 1-2+ edema on the left foot. Patient had 2/4 dorsalis pedis pulses on the right foot and 1/4 dorsalis pedis pulse on the left foot. Patient has 2 wounds on the great toe of the right foot 1 of which is on the tip of the great toe on the plantar surface that has a clean base that shows evidence of healthy granulation tissue. There is a another wound that is on the medial side of the great toe that appears to have dried blood around the area. There appears to be gangrenous tissue over the area. There is no surrounding erythema, warmth, or tenderness. LABORATORY DATA: See below. IMAGING: A bilateral venous duplex ultrasound performed at [facility] on 07/05/2020 was reported to show no evidence of DVT A chest x-ray performed at [facility] on 07/05/2020 was reported to show no acute pulmonary disease. A x-ray of the right great toe performed at [facility] on 07/05/2020 was reported to show findings consistent with osteomyelitis and consider 3 phase bone scan. MICROBIOLOGY: Please see below. ASSESSMENT: Patient is a 69-year-old female who presented as a direct transfer from [facility] with concern for osteomyelitis and cellulitis. PLAN: 1. Diabetic foot ulcer. Patient was recently treated at [facility] for osteomyelitis and was sent home on levofloxacin for 3 doses. Patient still has 1 dose remaining. Patient's wound does not appear to be infected at this time so we will continue with her regular antibiotics. Patient's white blood cell count is about the same as it was when she was discharged on 07/01/2020. Patient's CRP is 1.5 compared to 1.05 on discharge. There is no surrounding erythema around the wound and patient does not feel ill at this time however, due to the patient's advanced diabetes, she may not mount a response. We will continue with the patient's levofloxacin for her final dose tomorrow morning. V ascular surgery, podiatry, and/or infectious disease consultation may be beneficial. 2. Peripheral edema. Patient does have a history of congestive heart failure and appears to be overloaded on exam. Patient was given a one-time dose of 40 mg IV Lasix. We'll continue to monitor the patient for decrease in her leg swelling and decrease in her bibasilar crackles. 3. Diabetes mellitus. Patient is on Humulin R U-500 85 units at breakfast, 90 units at lunch, 95 units at dinner. We will continue this regimen 4. Hypertension. We'll continue with patient's home medications 5. Coronary artery disease. We'll continue the patient's home medications. 6. Hyperlipidemia. Will continue patient's home medications. 7. DVT prophylaxis: Patient is on Xarelto. 8. CODE STATUS: Full code Laboratory Data Labs 24H Laboratory Tests 2 07/05/20 22:19: Immature Granulocyte % (Auto) 1.1, Neutrophils (%) (Auto) 73.2H, Lymphocytes (%) (Auto) 16.5L, Monocytes (%) (Auto) 6.6H, Eosinophils (%) (Auto) 2.3, Basophils (%) (Auto) 0.3, Neutrophils # (Auto) 7.9, Lymphocytes # (Auto) 1.8, Monocytes # (Auto) 0.7, Eosinophils # (Auto) 0.3, Basophils # (Auto) 0.0, Nucleated Red Blood Cells % (auto) 0.0, Anion Gap 4L, Glomerular Filtration Rate 27.2L, Calcium Level 8.4L, C-Reactive Protein, Quantitative 1.55H CBC/BMP Laboratory Tests 07/05/20 22:19 Microbiology Microbiology 07/05/20 Blood Culture, Received Pending 07/05/20 Blood Culture, Received Pending Home Medications Scheduled Amlodipine Besylate (Amlodipine Besylate) 10 Mg Tablet, 10 MG PO DAILY Calcitriol (Calcitriol) 0.25 Mcg Capsule, 0.25 MCG PO DAILY Carvedilol (Carvedilol) 25 Mg Tablet, 25 MG PO BID Cholecalciferol (Vitamin D3) (Vitamin D3) 125 Mcg Capsule, 5,000 UNITS PO QHS Clopidogrel Bisulfate (Clopidogrel) 75 Mg Tablet, 75 MG PO DAILY Ferrous Gluconate (Ferrous Gluconate) 324 Mg Tablet, 324 MG PO BID Furosemide (Furosemide) 20 Mg Tablet, 20 MG PO DAILY Hydralazine HCl (Hydralazine HCl) 10 Mg Tablet, 30 MG PO QID Insulin (Humulin R U-500) 500 Unit/1 Ml Vial, 70 UNITS SC BID WITH BREAKFAST AND LUNCH Insulin (Humulin R U-500) 500 Unit/1 Ml Vial, 80 UNITS SC QPM WITH DINNER Isosorbide Dinitrate (Isosorbide Dinitrate) 20 Mg Tablet, 20 MG PO TID Levofloxacin (Levofloxacin) 750 Mg Tablet, 750 MG PO Q2D Multivitamin (Tab-A-Kristine) 1 Each Tablet, 1 TAB PO QHS Omeprazole (Omeprazole) 40 Mg Cap, 40 MG PO DAILY Rivaroxaban (Xarelto) 20 Mg Tablet, 20 MG PO QHS Rivaroxaban (Xarelto) 15 Mg Tablet, 15 MG PO DAILY Ropinirole HCl (Ropinirole HCl) 1 Mg Tab, 2 MG PO BID Sertraline HCl (Sertraline HCl) 50 Mg Tab, 100 MG PO QHS Umeclidinium Brm/Vilanterol Tr (Anoro Ellipta 62.5-25 Mcg INH) 1 Each Blst.w.dev, 1 PUFF INH DAILY Scheduled PRN Hydroxyzine HCl (Hydroxyzine HCl) 10 Mg Tablet, 10 MG PO TID PRN for ANXIETY Miscellaneous Medications [Patient Comment] PATIENT IS A POOR HISTORIAN. MED REC COMPLETED USING PREVIOUS DISCHARGE PAPERWORK. Allergies Coded Allergies: Penicillins (Verified Allergy, Mild, RASH/ITCHING, 06/22/20) A-FIB/CHADSVASC A-FIB History Current/History of A-Fib/PAF?: No Current PO Anticoag Therapy: Yes (xarelto) GME ATTESTATION GME ATTESTATION My faculty preceptor for this patient encounter was physically present during the encounter and was fully available. All aspects of the patient interview, examination, medical decision making process, and medical care plan development were reviewed and approved by the faculty preceptor. The faculty preceptor is aware and concurs with the plan as stated in the body of this note and will attest to such by his/her cosignature. ATTENDING NOTE I, Jean Lindo, have independently examined this patient and performed my own physical exam, as well as reviewed the documentation and edited where necessary. I have discussed in detail with the resident / student the findings and plan of treatment as documented by the resident / student and edited their note. I agree with their findings and treatment plan and have edited their documentation. I will continue to follow the patient during this hospital stay. KODY GARCIA DO Jul 05, 2020 23:52 ROSEANN LINDO MD Jul 06, 2020 06:07
[2020-07-06] MEDS: RIVAROXABAN 20 MG TAB (XARELTO) PO SCH ×2 (00:01→21:36)
[2020-07-06] MEDS: FERROUS GLUCONATE 324 MG TAB PO SCH ×3 (00:01→21:36)
[2020-07-06] MEDS: ISOSORBIDE DIN. (ISORDIL) 20 MG TAB PO SCH ×4 (00:01→21:34)
[2020-07-06] MEDS: SERTRALINE HCL 50 MG TAB PO SCH ×2 (00:02→21:36)
[2020-07-06] MEDS: **hydrALAZINE** 10 MG TAB PO SCH ×5 (00:03→21:35)
[2020-07-06] MEDS: CARVedilol 12.5 MG TAB PO SCH ×3 (00:03→21:35)
[2020-07-06] MEDS: ACETAMINOPHEN TAB 650MG DOSE (2X325MG) PO PRN ×2 (00:17→08:44)
[2020-07-06 06:00] VITALS: BP 149/54
[2020-07-06] MEDS ORDERED: LevoFLOXacin 750 MG TABLET PO SCH (06:00)
[2020-07-06 07:16] LABS: BASO % 0.2 % (0.0-1.0); EOS # 0.2 10^3/uL (0.0-0.5); EOS % 2.1 % (0.0-3.0); HEMATOCRIT 25.9 % (36.0-47.0); HEMOGLOBIN 8.1 g/dl (12.0-15.5); LYMPH # 1.2 10^3/uL (1.5-5.0); LYMPH % 14.3 % (24.0-44.0); MEAN CORPUSCULAR HEMOGLOBIN 27.2 pg (27.0-33.0); MEAN CORPUSCULAR HGB CONC 31.3 g/dl (32.0-36.5); MEAN CORPUSCULAR VOLUME 86.9 fl (80.0-96.0); MONO # 0.6 10^3/uL (0.0-0.8); MONO % 7.2 % (0.0-5.0); NEUTROPHILS # 6.1 10^3/uL (1.5-8.5); NEUTROPHILS % 75.1 % (36.0-66.0); PLATELET COUNT, AUTOMATED 178 10^3/uL (150-450); RED BLOOD COUNT 2.98 10^6/uL (4.00-5.40); WHITE BLOOD COUNT 8.2 10^3/uL (4.0-10.0)
[2020-07-06 07:45] LABS: C REACTIVE PROTEIN QUANTITATIV 1.42 MG/DL (0.00-0.30); CALCIUM LEVEL 8.6 MG/DL (8.8-10.2); CREATININE FOR GFR 2.01 MG/DL (0.55-1.30); GLOMERULAR FILTRATION RATE 26.3 (>45); POTASSIUM SERUM 4.4 MEQ/L (3.5-5.1)
[2020-07-06] MEDS: HUMULIN R U-500 KWIKPEN 500UNITS/ML 3ML SYRINGE (J1815 PER 5UNITS) SC SCH ×2 (08:42→12:57)
[2020-07-06] MEDS: OMEPRAZOLE 20 MG CAP PO SCH (08:42)
[2020-07-06] MEDS: CLOPIDOGREL 75 MG TAB PO SCH (08:43)
[2020-07-06] MEDS: RIVAROXABAN 15 MG TAB (XARELTO) PO SCH (08:43)
[2020-07-06] MEDS: CALCITRIOL 0.25 MCG CAP (S0169) PO SCH (08:43)
[2020-07-06] MEDS: amLODIPine 10 MG TAB PO SCH (08:43)
[2020-07-06] MEDS: rOPINIRole 1MG TAB PO SCH ×3 (08:44→21:34)
[2020-07-06] MEDS: FUROSEMIDE 100MG/10ML VIAL (J1940) IV SCH ×2 (08:45→16:57)
[2020-07-06] MEDS: PEN NEEDLE (USE WITH HUMULIN U-500 INSULIN PEN) XX SCH ×3 (08:45→17:30)
[2020-07-06] MEDS ORDERED: GLUCAGON INJ 1MG VIAL SC PRN (09:15)
[2020-07-06] MEDS ORDERED: DEXTROSE 50% 50 ML SYRINGE IV PRN (09:15)
[2020-07-06] MEDS ORDERED: GLUCOSE 4GM CHEW TABLET PO PRN (09:15)
[2020-07-06] MEDS ORDERED: HUMULIN R U-500 KWIKPEN 500UNITS/ML 3ML SYRINGE (J1815 PER 5UNITS) SC SCH ×2 (12:00→17:30)
--- NOTE | 2020-07-06 13:34 | IPNPDOC ---
Text Note Date of Service The patient was seen on 07/06/20. NOTE Subjective: No complains this morning. leg swelling is improving. No fever or chills. Physical exam: Vitals: As below General: Alert and oriented female patient who was laying in the hospital. HEENT: Normocephalic, atraumatic, moist mucous membranes. Neck: No JVD, No lymphadenopathy or thyromegaly Cardiac: Regular rate and rhythm, 2/6 systolic murmur heard loudest over the second intercostal space on the right sternal border Pulm: Bibasilar inspiratory crackles heard about one third of the way up the lung pate on the back Abd: Nondistended, nontender to palpation, normal bowel sounds Ext: Patient had 2+ edema on the right foot up to the level of the mid phillips. Patient had 1-2+ edema on the left foot. Patient had 2/4 dorsalis pedis pulses on the right foot and 1/4 dorsalis pedis pulse on the left foot. Patient has 2 wounds on the great toe of the right foot 1 of which is on the tip of the great toe on the plantar surface that has a clean base that shows evidence of healthy granulation tissue. There is a another wound that is on the medial side of the great toe that appears to have dried blood around the area. There appears to be gangrenous tissue over the area. There is no surrounding erythema, warmth, or tenderness. Labs and radiology: reviewed Assessment and Plan: Patient is a 69-year-old female who was recently admitted at [facility] for right great toe osteomyelitis with wound. Patient was discharged on 07/01/2020 on oral Levaquin for 3 doses. Patient took 2 of her doses and had 1 remaining however, earlier today she noticed increased leg swelling on the right leg and reported to the emergency department. Patient went to [facility] emergency department. Patient denies having any increased fevers or pain in her foot. Patient states that she was concerned because of the swelling so she went to the hospital. Patient was admitted and [facility] however, there was concern for cellulitis and osteomyelit is while on antibiotics as the patient may need a PICC line so the patient was transferred to [facility] for further treatment. Her right hallus ulcers are dry and not infected. She did have bipedal edema and crackles and so was felt she has CHF exacerbation. Right hallus chronic non healing ulcer/ dry gangrene s/p Osteomyelitis of right foot-1st,4th-5th phalanx finished last dose of levofloxacin today. Not infected at this time follow up with own vine pruner PT david Acute on chronic Diastolic Congestive heart failure Echo with grade 2 diastolic dys with normal systolic function EF65-70%, mitral valve stenosis, aortic stenosis. Moderately severe pulmonary hypertension (PAP 55-60mmHg) Does not follow fluid restriction at home lasix iv bid, fluid restriction 1.8 liters daily weight PAD Recently had right anterior tibial and dorsalis pedis angioplasty right post tibial and right peroneal could not be opened. Plavix, Xarelto Chronic Afib Xarelto, coreg Type 2 diabetes. continue home dosage of U-500 regular insulin FS AC and HS, hypoglycemic protocol Coronary artery disease/ CABG plavix, betablocker statin continued isosorbide mononitrate Valvular heart disease History of aortic stenosis status post Transcatheter aortic valve replacement currently Aortic valve area is 1.3 sq cm. moderate mitral stenosis Hypertension/ LVH/Hypertensive heart disease coreg, amlodipine, hydralazine Chronic kidney disease stage 4/ Secondary hyperparathyroidism calcitriol Anemia of Chronic disease and iron def on iron supplements Depression/ Anxiety sertraline RLS ropinirole GERD omeprazole Morbid obesity BMI 40.2/ JEFFERY/ Severe pulmonary hypertensin untreated JEFFERY, could not tolerate CPAP uses oxygen at night oxygen supplementation during sleep. COPD/ Severe pulmonary hypertension VS,Fishbone, I+O VS, Fishbone, I+O Laboratory Tests 07/05/20 22:19 07/06/20 06:59 Vital Signs Date Time Temp Pulse Resp B/P (MAP) Pulse Ox O2 Delivery O2 Flow Rate FiO2 07/06/20 06:00 98.0 64 18 149/54 (85) 94 Room Air I&O- Last 24 Hours up to 6 AM 07/06/20 06:00 Intake Total 530 ml Output Total 1300 ml Balance -770 ml JORDYN ALLEN MD Jul 06, 2020 13:34
[2020-07-06 14:00] VITALS: BP 150/53
[2020-07-06 16:59] VITALS: BP 165/58
[2020-07-06] MEDS: RAMELTEON 8 MG TAB (ROZEREM) PO SCH (21:34)
[2020-07-06 22:00] VITALS: BP 172/59
[2020-07-07 06:00] VITALS: BP 148/68
[2020-07-07 07:01] LABS: BASO % 0.3 % (0.0-1.0); EOS # 0.2 10^3/uL (0.0-0.5); HEMATOCRIT 27.5 % (36.0-47.0); LYMPH # 1.6 10^3/uL (1.5-5.0); MEAN CORPUSCULAR HEMOGLOBIN 28.3 pg (27.0-33.0); MEAN CORPUSCULAR HGB CONC 32.7 g/dl (32.0-36.5); MEAN CORPUSCULAR VOLUME 86.5 fl (80.0-96.0); MONO # 0.7 10^3/uL (0.0-0.8); MONO % 6.1 % (0.0-5.0); NEUTROPHILS % 75.7 % (36.0-66.0); PLATELET COUNT, AUTOMATED 200 10^3/uL (150-450); RED BLOOD COUNT 3.18 10^6/uL (4.00-5.40); WHITE BLOOD COUNT 10.6 10^3/uL (4.0-10.0)
[2020-07-07 07:26] LABS: C REACTIVE PROTEIN QUANTITATIV 1.1 MG/DL (0.00-0.30); CALCIUM LEVEL 8.9 MG/DL (8.8-10.2); CREATININE FOR GFR 2.05 MG/DL (0.55-1.30); GLOMERULAR FILTRATION RATE 25.7 (>45); MAGNESIUM LEVEL 1.9 MG/DL (1.8-2.4); POTASSIUM SERUM 4.2 MEQ/L (3.5-5.1)
[2020-07-07] MEDS: HUMULIN R U-500 KWIKPEN 500UNITS/ML 3ML SYRINGE (J1815 PER 5UNITS) SC SCH ×2 (08:10→13:26)
[2020-07-07] MEDS: PEN NEEDLE (USE WITH HUMULIN U-500 INSULIN PEN) XX SCH ×2 (08:10→13:26)
[2020-07-07] MEDS: OMEPRAZOLE 20 MG CAP PO SCH (08:11)
[2020-07-07] MEDS: FUROSEMIDE 100MG/10ML VIAL (J1940) IV SCH (08:11)
[2020-07-07] MEDS: CLOPIDOGREL 75 MG TAB PO SCH (08:11)
[2020-07-07] MEDS: RIVAROXABAN 15 MG TAB (XARELTO) PO SCH (08:11)
[2020-07-07] MEDS: rOPINIRole 1MG TAB PO SCH (08:11)
[2020-07-07] MEDS: CALCITRIOL 0.25 MCG CAP (S0169) PO SCH (08:11)
[2020-07-07] MEDS: FERROUS GLUCONATE 324 MG TAB PO SCH (08:11)
[2020-07-07] MEDS: **hydrALAZINE** 10 MG TAB PO SCH ×2 (08:14→13:29)
[2020-07-07] MEDS: ISOSORBIDE DIN. (ISORDIL) 20 MG TAB PO SCH (08:14)
[2020-07-07] MEDS: amLODIPine 10 MG TAB PO SCH (08:14)
[2020-07-07] MEDS: CARVedilol 12.5 MG TAB PO SCH (08:15)
[2020-07-07] MEDS ORDERED: FURO20TA2 PO ×2 (08:25→08:27)
[2020-07-07] MEDS ORDERED: SPIR-10 PO (08:25)
[2020-07-07] MEDS ORDERED: XARE15TA PO (08:52)
[2020-07-07 13:29] VITALS: BP 145/75
--- NOTE | 2020-07-07 13:58 | DS.PDOC ---
Discharge Summary General Date of Admission Jul 05, 2020 at 20:38 Date of Discharge 07/07/20 Discharge Summary PROCEDURES PERFORMED DURING STAY: [None]. DISCHARGE DIAGNOSES: Acute on chronic diastolic CHF Right hallus chronic non healing ulcer/ dry gangrene not infected. SECONDARY DIAGNOSIS: PAD COPD/ Severe pulmonary hypertension Morbid obesity BMI 40.2/ JEFFERY/ Severe pulmonary hypertensin untreted uses 2 liters oxygen at night CKD 4 Secondary hyperparathyroidism Anemia of chronic disease Iron deficiency Dm with neuropathy Coronary artery disease/ CABG Valvular heart disease History of aortic stenosis status post Transcatheter aortic valve replacement Moderate mitral stenosis Chronic A fib Hypertension/ LVH/Hypertensive heart disease Depression/ Anxiety RLS GERD COMPLICATIONS/CHIEF COMPLAINT: Rt Toe Foot Cellulitis Osteo. HOSPITAL COURSE: Patient is a 69-year-old female who was recently admitted at [facility] for right great toe osteomyelitis with wound. Patient was discharged on 07/01/2020 on oral Levaquin for 3 doses. Patient took 2 of her doses and had 1 remaining however, earlier today she noticed increased leg swelling on the right leg and reported to the emergency department. Patient went to [facility] emergency department. Patient denies having any inc reased fevers or pain in her foot. Patient states that she was concerned because of the swelling so she went to the hospital. Patient was admitted and [facility] however, there was concern for cellulitis and osteomyelitis while on antibiotics as the patient may need a PICC line so the patient was transferred to [facility] for further treatment. Her right hallus ulcers are dry and not infected. She did have bipedal edema and crackles and so was felt she has CHF exacerbation. Patient responded well to IV lasix. She reported that her diuretics were reduced during last admission so she has gained so much fluids. She is very confused about her diuretics and there dosage. She told me that before the june admission she was taking both torsemide and furosemide. But her spironolactone was stopped by her PMD. I discussed this with Dr Camacho and he is going to address this during the office visit next week. Right hallus chronic non healing ulcer/ dry gangrene s/p Osteomyelitis of right foot-1st,4th-5th phalanx finished last dose of levofloxacin today. Not infected at this time follow up with own communications executive PT david Acute on chronic Diastolic Congestive heart failure Echo with grade 2 diastolic dys with normal systolic function EF65-70%, mitral valve stenosis, aortic stenosis. Moderately severe pulmonary hypertension (PAP 55-60mmHg) Does not follow fluid restriction at home Lasix 40 bid fluid restriction 1.8 liters daily weight PAD Recently had right anterior tibial and dorsalis pedis angioplasty right post tibial and right peroneal could not be opened. Plavix, Xarelto Chronic Afib Xarelto, coreg Type 2 diabetes. continue home dosage of U-500 regular insulin FS AC and HS, hypoglycemic protocol Coronary artery disease/ CABG plavix, betablocker statin continued isosorbide mononitrate Valvular heart disease History of aortic stenosis status post Transcatheter aortic valve replacement currently Aortic valve area is 1.3 sq cm. moderate mitral stenosis Hypertension/ LVH/Hypertensive heart disease coreg, amlodipine, hydralazine Chronic kidney disease stage 4/ Secondary hyperparathyroidism calcitriol Anemia of Chronic disease and iron def on iron supplements Depression/ Anxiety sertraline RLS ropinirole GERD omeprazole Morbid obesity BMI 40.2/ JEFFERY/ Severe pulmonary hypertensin untreated JEFFERY, could not tolerate CPAP uses oxygen at night oxygen supplementation during sleep. COPD/ Severe pulmonary hypertension DISCHARGE MEDICATIONS: Please see below. ALLERGIES: Please see below. PHYSICAL EXAMINATION ON DISCHARGE: VITAL SIGNS: Please see below. General: Alert and oriented female patient who was laying in the hospital. HEENT: Normocephalic, atraumatic, moist mucous membranes. Neck: No JVD, No lymphadenopathy or thyromegaly Cardiac: Regular rate and rhythm, 2/6 systolic murmur heard loudest over the second intercostal space on the right sternal border Pulm: Bibasilar inspiratory crackles heard about one third of the way up the lung pate on the back Abd: Nondistended, nontender to palpation, normal bowel sounds Ext: Patient had 2+ edema on the right foot up to the level of the mid phillips. Patient had 1-2+ edema on the left foot. Patient had 2/4 dorsalis pedis pulses on the right foot and 1/4 dorsalis pedis pulse on the left foot. Patient has 2 wounds on the great toe of the right foot 1 of which is on the tip of the great toe on the plantar surface that has a clean base that shows evidence of healthy granulation tissue. There is a another wound that is on the medial side of the great toe that appears to have dried blood around the area. There appears to be gangrenous tissue over the area. There is no surrounding erythema, warmth, or tenderness. LABORATORY DATA: Please see below. ACTIVITY: [As tolerated]. DIET: Carb consistent fluid restriction 1800 cc. DISCHARGE PLAN: Home DISCHARGE INSTRUCTIONS: Follow up with Dr Camacho in [address] Diamond in 2 weeks DISCHARGE CONDITION: [Stable]. TIME SPENT ON DISCHARGE: 35 minutes. Vital Signs/I&Os Vital Signs Date Time Temp Pulse Resp B/P (MAP) Pulse Ox O2 Delivery O2 Flow Rate FiO2 07/07/20 13:29 145/75 07/07/20 08:15 74 07/07/20 06:00 96.9 18 97 Room Air I&O- Last 24 Hours up to 6 AM 07/07/20 06:00 Intake Total 1440 ml Output Total 2300 ml Balance -860 ml Laboratory Data Labs 24H Laboratory Tests 2 07/06/20 21:03: Bedside Glucose (Misc Panel) 49L 07/06/20 22:42: Bedside Glucose (Misc Panel) 78L 07/07/20 06:32: Immature Granulocyte % (Auto) 0.9, Neutrophils (%) (Auto) 75.7H, Lymphocytes (%) (Auto) 15.0L, Monocytes (%) (Auto) 6.1H, Eosinophils (%) (Auto) 2.0, Basophils (%) (Auto) 0.3, Neutrophils # (Auto) 8.0, Lymphocytes # (Auto) 1.6, Monocytes # (Auto) 0.7, Eosinophils # (Auto) 0.2, Basophils # (Auto) 0.0, Nucleated Red Blood Cells % (auto) 0.0, Anion Gap 8, Glomerular Filtration Rate 25.7L, Calcium Level 8.9, Magnesium Level 1.9, C-Reactive Protein, Quantitative 1.10H 07/07/20 11:42: Bedside Glucose (Misc Panel) 274H CBC/BMP Laboratory Tests 07/07/20 06:32 FSBS Laboratory Tests Test 07/06/20 21:03 07/06/20 22:42 07/07/20 11:42 Range/Units Bedside Glucose (Misc Panel) 49 78 274 80-115 MG/DL Microbiology Microbiology 07/05/20 Blood Culture - Preliminary, Resulted No growth after 24 hours . All specim... 07/05/20 Blood Culture - Preliminary, Resulted No growth after 24 hours . All specim... Discharge Medications Scheduled Amlodipine Besylate (Amlodipine Besylate) 10 Mg Tablet, 10 MG PO DAILY, (Reported) Calcitriol (Calcitriol) 0.25 Mcg Capsule, 0.25 MCG PO DAILY, (Reported) Carvedilol (Carvedilol) 25 Mg Tablet, 25 MG PO BID, (Reported) Cholecalciferol (Vitamin D3) (Vitamin D3) 125 Mcg Capsule, 5,000 UNITS PO QHS, (Reported) Clopidogrel Bisulfate (Clopidogrel) 75 Mg Tablet, 75 MG PO DAILY, (Reported) Ferrous Gluconate (Ferrous Gluconate) 324 Mg Tablet, 324 MG PO BID, (Reported) Furosemide (Furosemide) 20 Mg Tablet, 40 MG PO BID Hydralazine HCl (Hydralazine HCl) 10 Mg Tablet, 30 MG PO QID, (Reported) Insulin (Humulin R U-500) 500 Unit/1 Ml Vial, 70 UNITS SC BID, (Reported) WITH BREAKFAST AND LUNCH Insulin (Humulin R U-500) 500 Unit/1 Ml Vial, 80 UNITS SC QPM, (Reported) WITH DINNER Isosorbide Dinitrate (Isosorbide Dinitrate) 20 Mg Tablet, 20 MG PO TID, (Reported) Multivitamin (Tab-A-Kristine) 1 Each Tablet, 1 TAB PO QHS, (Reported) Omeprazole (Omeprazole) 40 Mg Cap, 40 MG PO DAILY, (Reported) Rivaroxaban (Xarelto) 15 Mg Tablet, 15 MG PO QHS Ropinirole HCl (Ropinirole HCl) 1 Mg Tab, 2 MG PO BID, (Reported) Sertraline HCl (Sertraline HCl) 50 Mg Tab, 100 MG PO QHS, (Reported) Umeclidinium Brm/Vilanterol Tr (Anoro Ellipta 62.5-25 Mcg INH) 1 Each Blst.w.dev, 1 PUFF INH DAILY, (Reported) Scheduled PRN Hydroxyzine HCl (Hydroxyzine HCl) 10 Mg Tablet, 10 MG PO TID PRN for ANXIETY, (Reported) Miscellaneous Medications [Patient Comment] , (Reported) PATIENT IS A POOR HISTORIAN. MED REC COMPLETED USING PREVIOUS DISCHARGE PAPERWORK. Allergies Coded Allergies: Penicillins (Verified Allergy, Mild, RASH/ITCHING, 06/22/20) JORDYN ALLEN MD Jul 07, 2020 13:58
== END 2020-07-07 15:09 | disposition home health service (06) | DRG 637 ==
LOC: M MSPAV 20:38
PROVIDERS: ADMIT Internal Medicine; ATTEND Internal Medicine Nephrology
DX: E11.621 Type 2 diabetes mellitus with foot ulcer (principal); I50.33 Acute on chronic diastolic (congestive) heart failure; I13.0 Hypertensive heart and chronic kidney disease with heart failure and stage 1 through stage 4 chronic kidney disease, or unspecified chronic kidney disease; I48.20 Chronic atrial fibrillation, unspecified; E11.52 Type 2 diabetes mellitus with diabetic peripheral angiopathy with gangrene; Z68.41 Body mass index [BMI] 40.0-44.9, adult; L97.519 Non-pressure chronic ulcer of other part of right foot with unspecified severity; D63.1 Anemia in chronic kidney disease; G25.81 Restless legs syndrome; I25.10 Atherosclerotic heart disease of native coronary artery without angina pectoris; F41.9 Anxiety disorder, unspecified; G47.33 Obstructive sleep apnea (adult) (pediatric); F32.9 Major depressive disorder, single episode, unspecified; E11.40 Type 2 diabetes mellitus with diabetic neuropathy, unspecified; E66.01 Morbid (severe) obesity due to excess calories; I27.20 Pulmonary hypertension, unspecified; K21.9 Gastro-esophageal reflux disease without esophagitis; N18.4 Chronic kidney disease, stage 4 (severe); Z95.2 Presence of prosthetic heart valve; Z90.49 Acquired absence of other specified parts of digestive tract; Z95.1 Presence of aortocoronary bypass graft; Z79.4 Long term (current) use of insulin; Z79.02 Long term (current) use of antithrombotics/antiplatelets; Z79.01 Long term (current) use of anticoagulants; Z79.899 Other long term (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 therapy; Z88.0 Allergy status to penicillin

== ENCOUNTER → 2020-07-14 | Outpatient (CLI) | payer MEDICARE ==
[~2020-07-14] MED LIST changes: +FURO20TA2 PO; +PATIENT COMMENT
--- NOTE | 2020-07-14 15:57 | REP ---
INDICATION: ATHSCL LAC COURTE OREILLES ART OF EXTRM W INTRMT JACKSON BI LEGS. COMPARISON: Comparison study June 22, 2020.. TECHNIQUE: Bilateral lower extremity arterial Doppler ultrasound. FINDINGS: Ankle brachial indices could not be accomplished due to patient discomfort and pain. [id number] bilateral plaquing is seen. There is evidence of stenotic flow velocity in the right popliteal artery and the proximal anterior tibial artery on the right. Stenotic flow velocities are observed in the tibioperoneal trunk on the left. Monophasic waveforms are observed on the right distal to and at the distal SFA segment on the left at and distal to the popliteal segment. No occlusion is appreciated. Right lower extremity arterial Doppler velocity chart: Right ROUGHER OPERATOR PSV 163 cm/S Profundal 150 Proximal SFA 146 Mid SFA 175 Distal SFA 168 Popliteal 186 Proximal SARITHA 224 Tibial-peroneal trunk 18337 Proximal BAILER OPERATORS SUPERVISOR 23 Distal BAILER OPERATORS SUPERVISOR 39 Distal SARITHA 138 Left lower extremity arterial Doppler velocity chart: Left ROUGHER OPERATOR PSV 139 cm/S Profundal 139 Proximal SFA 120 Mid SFA 156 Distal SFA 166 Popliteal 73 Proximal SARITHA 25 Tibial-peroneal trunk 201 Proximal BAILER OPERATORS SUPERVISOR 126 Distal BAILER OPERATORS SUPERVISOR 45 Distal SARITHA 20 IMPRESSION: [id number] atherosclerotic changes as above. Stenotic flow velocities in the right popliteal and proximal anterior tibial as well as in the left tibial-peroneal trunk region. <Electronically signed by Cisco Amador > 07/14/20 3327
== END ==
LOC: M RAD 14:12
PROVIDERS: ATTEND Surgery Vascular Surgery
DX: I70.213 Atherosclerosis of native arteries of extremities with intermittent claudication, bilateral legs (principal)

== ENCOUNTER 2020-07-19 19:30 | Inpatient (IN) | payer MEDICARE ==
[~2020-07-19] VITALS: Ht 154.9 cm; Wt 93.9 kg
[2020-07-19] MEDS ORDERED: SPIR-10 PO ×2 (19:47→23:01)
[2020-07-19] MEDS ORDERED: K-TA10TA2 PO (19:47)
[2020-07-19] MEDS ORDERED: AMLO1TAB25 PO (19:47)
[2020-07-19] MEDS ORDERED: XARE15TA PO ×2 (19:47→23:07)
[2020-07-19] MEDS ORDERED: TREL1AER PO (19:47)
[2020-07-19] MEDS ORDERED: NS 1,000 ML IV SCH ×2 (20:30→22:07)
[2020-07-19] MEDS: ATORVASTATIN 20 MG TAB PO SCH (21:00)
[2020-07-19] MEDS: rOPINIRole 1MG TAB PO SCH (21:00)
[2020-07-19] MEDS: POTASSIUM CHLORIDE 10 MEQ SR TABLET PO SCH (21:00)
[2020-07-19] MEDS: FERROUS GLUCONATE 324 MG TAB PO SCH (21:00)
[2020-07-19] MEDS: SERTRALINE HCL 50 MG TAB PO SCH (21:00)
[2020-07-19] MEDS: ISOSORBIDE DIN. (ISORDIL) 20 MG TAB PO SCH (21:00)
[2020-07-19] MEDS: CARVedilol 12.5 MG TAB PO SCH (21:00)
[2020-07-19 21:26] LABS: HEMATOCRIT 25.9 % (36.0-47.0); HEMOGLOBIN 8.3 g/dl (12.0-15.5); MEAN CORPUSCULAR HEMOGLOBIN 27.7 pg (27.0-33.0); MEAN CORPUSCULAR VOLUME 86.3 fl (80.0-96.0); PLATELET COUNT, AUTOMATED 173 10^3/uL (150-450); WHITE BLOOD COUNT 10.1 10^3/uL (4.0-10.0)
--- NOTE | 2020-07-19 21:47 | REPVR ---
PROCEDURE INFORMATION: Exam: XR Right Toe(s) Exam date and time: 07/19/2020 9:02 PM Age: 69 years old Clinical indication: Cellulitis; Toes; Right; Additional info: Open wound, great toe TECHNIQUE: Imaging protocol: XR Right toes. Views: Minimum 2 views. COMPARISON: MRI FOOT WITHOUT CONTRAST 06/23/2020 10:13 AM FINDINGS: Bones/joints: There is cortical abnormality at the base of the distal phalanx of the big toe. Soft tissues: There is soft tissue edema of the big toe. Vasculature: Vascular calcifications. IMPRESSION: Cortical abnormality at the base of distal phalanx of the big toe with soft tissue edema. Findings suspicious for osteomyelitis. Electronically signed by: Costa Soriano On 07/19/2020 21:46:54 PM
[2020-07-19 21:49] LABS: CALCIUM LEVEL 7.9 MG/DL (8.8-10.2); CREATININE FOR GFR 2.32 MG/DL (0.55-1.30); GLOMERULAR FILTRATION RATE 22.3 (>45); POTASSIUM SERUM 4.2 MEQ/L (3.5-5.1)
--- NOTE | 2020-07-19 22:13 | HPEPDOC ---
[facility] Medical History & Physical Date of Admission Jul 19, 2020 Date of Service: Jul 19, 2020 Primary Care Physician: Callie Caballero Attending Physician: JACKLYN LYNN MD History and Physical TIME OF SERVICE: 1115pm CHIEF COMPLAINT: sent by home RN HISTORY OF PRESENT ILLNESS: This 69 yr old F has had an ulcer on her right large toe for several weeks; she was admitted to the hospital on Jul 05 for management of right hallus chronic non healing ulcer with dry gangrene. Based on the d/c summary written by the patient didn't have an acute infection; she was give levofloxacin and discharged home on Jul 07. Today her home RN was changing the dressings and noted that the toe was more red, and the ulcer was draning green fluid. The patient denies having f/c/n/v or any foot pain bc she has diabetic neuropathy. REVIEW OF SYSTEMS: 12 point review of systems negative except as listed in HPI PAST MEDICAL/ SURGICAL HISTORY: Chronic HFpEF Chronic right hallux ulcer PAD COPD Severe pulmonary hypertension Morbid obesity BMI 40.2/ JEFFERY with nocturnal O2 use CKD 4 with secondary hyperparathyroidism Anemia of chronic disease Iron deficiency IDDM complicated by neuropathy Coronary artery disease/ CABG History of severe aortic stenosis requiring TAVR Moderate mitral stenosis Chronic A fib Hypertensive heart disease Depression/ Anxiety RLS GERD Appendectomy Back surgery Carpal tunnel surgery Hernia repair Hysterectomy Knee surgery SOCIAL HISTORY: no tobbacco, alcohol or drugs FAMILY HISTORY: Father - diabetes and heart failure Mother - diabetes, heart failure, and stroke ALLERGIES: Please see below. HOME MEDICATIONS: Please see below. PHYSICAL EXAMINATION: Vital Signs Date Time Temp Pulse Resp B/P (MAP) Pulse Ox O2 Delivery O2 Flow Rate FiO2 07/19/20 19:31 98.8 64 16 186/79 (114) 97 Room Air GEN: obese / well developed/ NAD INTEGUMENT: the skin on her right hallux is slightly red and thickened, there is an ulcer at the anterior part of the toe HEENT: lips acyanotic /mucus membranes moist and pink CVS: RRR/NMRG/ radial and dorsalis pedis pulses intact LUNGS: able to speak full sentences without stopping to take a breath / no coughing / lungs are clear to auscultation bilaterally on room air ABDOMEN: Contour (obese) MSK/EXTREMITIES: NCAT NEURO: CN 2-12 are grossly intact / speech is not dysarthric PSYCH: alert and oriented to person place and time/ able to understand and follow all commands LABORATORY DATA: 07/19/20 21:13 Laboratory Tests 2 07/19/20 21:13: Nucleated Red Blood Cells % (auto) 0.0, Anion Gap 6L, Glomerular Filtration Rate 22.3L, Calcium Level 7.9L IMAGING: Toe xray "IMPRESSION: Cortical abnormality at the base of distal phalanx of the big toe with soft tissue edema. Findings suspicious for osteomyelitis." MICROBIOLOGY: 07/19/20 Gram Stain, Received Pending 07/19/20 Blood Culture, Received Pending ASSESSMENT: is a 69 yr old is a 69 yr old w a hx of Chronic right hallus non healing ulcer, Chronic HFpEF, PAD, COPD , Severe pulmonary hypertension, Morbid obesity, JEFFERY with nocturnal O2 use, CKD 4 with secondary hyperparathyroidism, An emia of chronic disease, IDDM complicated by neuropathy, Coronary artery disease w hx of CABG, TAVR, Chronic A fib, Hypertensive heart disease, Depression/ Anxiety and RLS who presented w c/o of worsening redness of her toe and draining of green discharge from the ulcer on her toe; she will be admitted to r/o right hallux osteomyelitis and treatment of EVERTON on CKD. PLAN: 1. Chronic right hallux ulcer w possible right toe osteomyelitis Plan: admit to medical floor / fall precautions/ since she doesn't have sepsis will hold off abx pending Podiatry consult to determine if she needs additional imaging +/- bone biopsy to confirm osteo will keep her NPO for now 2. EVERTON on CKD4 CKD likely 2/2 HTN and or DM nephropathy Has secondary hyperparathyroidism Baseline Cr 1.95 Cr 2.32 today Plan: NS @ 50ml/H / f/u ulytes for FENa or FEUrea / renal US / hold torsemide and calcitriol bc of EVERTON 3. Anemia of chronic disease She also has a hx of CHELO Hg dropped from 9 to 8.3 Plan: f/u Iron studies, B12 and folate 4. Chronic HFpEF Plan: hold torsemide bc of EVERTON 5. IDDM complicated by neuropathy Plan f/u accuchecks & A1C / hypoglycemia protocol / sliding scale insulin / decrease long acting insulin Humulin R to 30 units BID while NPO 6. Chronic A fib Plan: hold Xarelto pending confirmation that pt doesn't need bone biopsy 7. COPD Plan: Trelegy Ellipta 8. PAD Plan: start Statin 9. Coronary artery disease/ CABG Plan: Plavix 10. Hypertensive heart disease Plan: Amlodipine, Coreg, hydralazine 11. Depression/ Anxiety Plan: Sertraline 12. RLS Plan: Ropinirole 13. Morbid Obesity complicates care has co-existing DM and JEFFERY (but doesn't use PAP) Plan: / the pt can f/u w his or her PCP for STOP BANG questionnaire, storeroom clerk consult & referral to Bariatric Surgeon DVT PROPHYLAXIS: SCDs pending resumption of NOAC DISPOSITION: home after more than 2 midnight's stay Home Medications Scheduled Amlodipine Besylate (Amlodipine Besylate) 10 Mg Tablet, 10 MG PO DAILY Calcitriol (Calcitriol) 0.25 Mcg Capsule, 0.25 MCG PO DAILY Carvedilol (Carvedilol) 25 Mg Tablet, 25 MG PO BID Cholecalciferol (Vitamin D3) (Vitamin D3) 125 Mcg Capsule, 5,000 UNITS PO QHS Clopidogrel Bisulfate (Clopidogrel) 75 Mg Tablet, 75 MG PO DAILY Ferrous Gluconate (Ferrous Gluconate) 324 Mg Tablet, 324 MG PO BID Fluticasone/Umeclidin/Vilanter (Trelegy Ellipta 100-62.5-25) 1 Each Blst.w.dev, 1 PUFF INH DAILY Hydralazine HCl (Hydralazine HCl) 10 Mg Tablet, 25 MG PO BID Insulin (Humulin R U-500) 500 Unit/1 Ml Vial, 70 UNITS SC BID WITH BREAKFAST AND LUNCH Insulin (Humulin R U-500) 500 Unit/1 Ml Vial, 80 UNITS SC QPM WITH DINNER Isosorbide Dinitrate (Isosorbide Dinitrate) 20 Mg Tablet, 20 MG PO TID Multivitamin (Tab-A-Kristine) 1 Each Tablet, 1 TAB PO QHS Omeprazole (Omeprazole) 40 Mg Cap, 40 MG PO DAILY Potassium Chloride (Potassium Chloride) 10 Meq Tab.er.prt, 10 MEQ PO BID Rivaroxaban (Xarelto) 15 Mg Tablet, 15 MG PO QHS Ropinirole HCl (Ropinirole HCl) 1 Mg Tab, 2 MG PO BID Sertraline HCl (Sertraline HCl) 50 Mg Tab, 100 MG PO QHS Spironolactone (Spironolactone) 25 Mg Tablet, 25 MG PO DAILY Torsemide (Torsemide) 100 Mg Tablet, 100 MG PO DAILY Torsemide (Torsemide) 100 Mg Tablet, 50 MG PO QPM TAKES AT 1700 Scheduled PRN Hydroxyzine HCl (Hydroxyzine HCl) 10 Mg Tablet, 10 MG PO TID PRN for ANXIETY Allergies Coded Allergies: Penicillins (Verified Allergy, Mild, RASH/ITCHING, 06/22/20) A-FIB/CHADSVASC A-FIB History Current/History of A-Fib/PAF?: Yes Current PO Anticoag Therapy: No Treatment Reason Anticoagulant not given: Recent/upcomin procedure JACKLYN LYNN MD Jul 19, 2020 22:13
[2020-07-19] MEDS ORDERED: GLUCOSE 4GM CHEW TABLET PO PRN (22:15)
[2020-07-19] MEDS ORDERED: MOM 30ML SUSPENSION UDC PO PRN (22:15)
[2020-07-19] MEDS ORDERED: GLUCAGON INJ 1MG VIAL SC PRN (22:15)
[2020-07-19] MEDS ORDERED: DEXTROSE 50% 50 ML SYRINGE IV PRN (22:15)
[2020-07-19] MEDS ORDERED: VANCOMYCIN HCL 750 MG, VIAL MATE ADAPTER 1 EACH in D5W 250 ML IV SCH (22:15)
[2020-07-19] MEDS ORDERED: MAALOX 30 ML SUSP *UDC PO PRN (22:15)
[2020-07-19] MEDS ORDERED: VANCOMYCIN HCL 1,000 MG, VIAL MATE ADAPTER 1 EACH in D5W 250 ML IV ONE (22:17)
[2020-07-19 22:44] LABS: PERCENT SATURATION 12.3 % (13.2-45.0)
[2020-07-19 22:45] LABS: HEMOGLOBIN A1c 7.7 %
[2020-07-19 22:53] LABS: FOLATE 20.8 NG/ML
[2020-07-19] MEDS ORDERED: POTA10TA17 PO (23:01)
[2020-07-19] MEDS ORDERED: TORS100T PO ×2 (23:03→23:07)
[2020-07-19] MEDS ORDERED: TREL1AER INH (23:03)
--- NOTE | 2020-07-19 23:29 | REPVR ---
PROCEDURE INFORMATION: Exam: US Retroperitoneal Limited, Kidneys Exam date and time: 07/19/2020 11:14 PM Age: 69 years old Clinical indication: Abnormal findings; Abnormal lab test; Abnormal kidney function lab tests; Additional info: Jermain on ckd TECHNIQUE: Imaging protocol: Real-time ultrasound of the retroperitoneum with image documentation. Examination was focused on the kidneys. COMPARISON: RENAL US 09/07/2017 2:21 PM FINDINGS: Right kidney: Right kidney measures 13 x 6.9 x 5.6 cm. Normal echogenicity. No hydronephrosis. Left kidney: Left kidney measures 11.8 x 6.2 x 6.0 cm. Normal echogenicity. No hydronephrosis. IMPRESSION: Unremarkable ultrasound. Electronically signed by: Costa Soriano On 07/19/2020 23:29:14 PM
[2020-07-20] MEDS ORDERED: HumaLOG INSULIN (NovoLOG) PER UNIT SC SCH
[2020-07-20] MEDS: HumaLOG INSULIN (NovoLOG) PER UNIT SC SCH ×4 (00:43→18:03)
[2020-07-20] MEDS ORDERED: hydrOXYzine 10 MG TAB PO PRN (01:15)
[2020-07-20 01:40] VITALS: BP 124/65
[2020-07-20 06:00] VITALS: BP 144/64
[2020-07-20 06:01] LABS: HEMATOCRIT 25.1 % (36.0-47.0); HEMOGLOBIN 7.9 g/dl (12.0-15.5); MEAN CORPUSCULAR HEMOGLOBIN 27.4 pg (27.0-33.0); MEAN CORPUSCULAR HGB CONC 31.5 g/dl (32.0-36.5); MEAN CORPUSCULAR VOLUME 87.2 fl (80.0-96.0); PLATELET COUNT, AUTOMATED 156 10^3/uL (150-450); RED BLOOD COUNT 2.88 10^6/uL (4.00-5.40); WHITE BLOOD COUNT 7.8 10^3/uL (4.0-10.0)
[2020-07-20 06:22] LABS: CALCIUM LEVEL 8.1 MG/DL (8.8-10.2); CREATININE FOR GFR 1.95 MG/DL (0.55-1.30); GLOMERULAR FILTRATION RATE 27.2 (>45)
[2020-07-20] MEDS: HumuLIN R (REGULAR) INSULIN (NovoLIN R) **100U/ML** PER UNIT SC SCH ×2 (07:30→18:03)
[2020-07-20] MEDS: SPIRONOLACTONE 25 MG TAB PO SCH (07:53)
[2020-07-20] MEDS: POTASSIUM CHLORIDE 10 MEQ SR TABLET PO SCH ×2 (07:54→20:38)
[2020-07-20] MEDS: **hydrALAZINE** 10 MG TAB PO SCH ×2 (07:54→20:39)
[2020-07-20] MEDS: FERROUS GLUCONATE 324 MG TAB PO SCH ×2 (07:54→20:37)
[2020-07-20] MEDS: rOPINIRole 1MG TAB PO SCH ×2 (07:54→20:37)
[2020-07-20] MEDS: amLODIPine 10 MG TAB PO SCH (07:54)
[2020-07-20] MEDS: ISOSORBIDE DIN. (ISORDIL) 20 MG TAB PO SCH ×3 (07:55→20:38)
[2020-07-20] MEDS: CALCITRIOL 0.25 MCG CAP (S0169) PO SCH (07:55)
[2020-07-20] MEDS: CARVedilol 12.5 MG TAB PO SCH ×2 (07:55→20:39)
[2020-07-20] MEDS: OMEPRAZOLE 20 MG CAP PO SCH (07:56)
[2020-07-20] MEDS ORDERED: TRELEGY ELLIPTA INH SCH (09:00)
[2020-07-20] MEDS ORDERED: CLOPIDOGREL 75 MG TAB PO SCH (09:00)
[2020-07-20] MEDS: ADVAIR HFA 45/21MCG INHALER INH SCH ×2 (11:23→20:08)
[2020-07-20] MEDS: TIOTROPIUM INHALER/CAPSULE (SPIRIVA) INH SCH (11:23)
[2020-07-20 14:30] VITALS: BP 145/80
[2020-07-20] MEDS ORDERED: VANCOMYCIN HCL 750 MG, VIAL MATE ADAPTER 1 EACH in D5W 250 ML IV SCH (15:15)
--- NOTE | 2020-07-20 15:19 | IPNPDOC ---
Date Seen The patient was seen on 07/20/20. Progress Note SUBJECTIVE: Discussed case with Dr. Cross this AM. Advanced diet as no OR time is definite currently. Denies chest pain, fevers, chills, n/v/d. OBJECTIVE: PHYSICAL EXAMINATION: VS: Please see below GEN: obese / well developed/ NAD INTEGUMENT: the skin on her right hallux is slightly red and thickened, there is an ulcer at the anterior part of the toe and on the lateral portion HEENT: lips acyanotic /mucus membranes moist and pink CVS: RRR/NMRG/ radial and dorsalis pedis pulses intact LUNGS: able to speak full sentences without stopping to take a breath / no coughing / lungs are clear to auscultation bilaterally on room air ABDOMEN: Contour (obese) MSK/EXTREMITIES: NCAT NEURO: CN 2-12 are grossly intact / speech is not dysarthric PSYCH: alert and oriented to person place and time/ able to understand and follow all commands LABORATORY DATA: Please see below IMAGING: Toe xray : Cortical abnormality at the base of distal phalanx of the big toe with soft tissue edema. Findings suspicious for osteomyelitis." MICROBIOLOGY: Right large toe wound cx: pending BCx x 2 sets pending ASSESSMENT: is a 69 yr old is a 69 yr old w a hx of Chronic right hallus non healing ulcer, Chronic HFpEF, PAD, COPD , Severe pulmonary hypertension, Morbid obesity, JEFFERY with nocturnal O2 use, CKD 4 with secondary hyperparathyroidism, Anemia of chronic disease, IDDM complicated by neuropathy, Coronary artery disease w hx of CABG, TAVR, Chronic A fib, Hypertensive heart disease, Depression/ Anxiety and RLS who presented w c/o of worsening redness of her toe and draining of green discharge from the ulcer on her toe; she will be admitted to r/o right hallux osteomyelitis and treatment of EVERTON on CKD. PLAN: #Chronic right hallux ulcer w possible right toe osteomyelitis -WBC 7.8, afebrile overnight -Possible amputation of right large toe on 07/21/20 -Dr. Cross to follow. -IV vancomycin started #EVERTON on CKD4 likely 2/2 HTN and or DM nephropathy -Cr 1.95, baseline -At baseline, stopped IVFs -Encouraged Po hydration throughout day #Chronic anemia likely multifactorial to chronic disease, CHELO -H/H dropped to 7.9/25 -No s/s of bleeding -Iron low -On iron supplement BID, consider venofer injection this admissino -F/u CBC daily, Goal to transfuse <7 Hgb #Chronic HFpEF, not currently in exacerbation -Holding diuretic another day -Resume diuretic in the AM #IDDM complicated by neuropathy -C/w BID humulin, ISS, FS AC/HS, hypoglycemia protocol. -Can increase to home humulin dose when eating well #Chronic A fib -Stable -Holding Xarelto pending confirmation that pt doesn't need amputation/surgery per podiatry #COPD -Stable on RA -Use hospital substitute for Tremolly Foyta # PAD -Plavix held, on statin #Coronary artery disease/ CABG -Stable -C/w statin, holding plavix for anticipated surgery in AM #Hypertensive heart disease -Stable -C/w Amlodipine, Coreg, hydralazine #Depression/ Anxiety -C/w Sertraline #RLS -C/w Ropinirole # Morbid Obesity -complicates care -has co-existing DM and JEFFERY (but doesn't use PAP) -Pt can f/u PCP for STOP BANG questionnaire, associate professor of history consult & referral to Bariatric Surgeon #GERD -PPI #DVT Px -Plavix and xarelto on hold due to upcoming potential surgery. Restart VONDA DISPOSITION: Likely for OR in the AM for right large toe amputation per Dr. Cross. VS, I&O, 24H, Fishbone Vital Signs/I&O Vital Signs Date Time Temp Pulse Resp B/P (MAP) Pulse Ox O2 Delivery O2 Flow Rate FiO2 07/20/20 07:55 144/64 07/20/20 07:55 70 07/20/20 06:00 98.7 18 94 Room Air I&O- Last 24 Hours up to 6 AM 07/20/20 06:00 Intake Total 470 ml Output Total 350 ml Balance 120 ml Laboratory Data 24H LABS Laboratory Tests 2 07/19/20 21:13: Nucleated Red Blood Cells % (auto) 0.0, Anion Gap 6L, Glomerular Filtration Rate 22.3L, Estimated Mean Plasma Glucose 174H, Hemoglobin A1c 7.7, Calcium Level 7.9L, Iron Level 30L, Total Iron Binding Capacity 244L, Transferrin % Saturation 12.3L, Ferritin 93, Vitamin B12 Level 440, Folate 20.8 11/18/20 23:37: Coronavirus (COVID-19)(PCR) NEGATIVE 07/20/20 00:05: Lactic Acid Level 1.5 07/20/20 00:21: Bedside Glucose (Misc Panel) 388H 07/20/20 05:22: Nucleated Red Blood Cells % (auto) 0.0, Anion Gap 9, Glomerular Filtration Rate 27.2L, Calcium Level 8.1L 07/20/20 05:57: Bedside Glucose (Misc Panel) 192H 07/20/20 11:52: Bedside Glucose (Misc Panel) 186H CBC/BMP Laboratory Tests 07/19/20 21:13 07/20/20 05:22 Microbiology Microbiology 07/19/20 Blood Culture, Received Pending 07/19/20 Gram Stain - Final, Resulted 07/19/20 Wound Culture, Resulted Pending 07/19/20 Blood Culture, Received Pending Current Medications Current Medications Medications (Trade) Dose Ordered Sig/Andrade Route PRN Reason Start Time Stop Time Status Last Admin Dose Admin Acetaminophen (Tylenol Tab) 650 mg Q4H PRN PO PAIN OR FEVER 07/19/20 22:15 Al Hydrox/Mg Hydrox/Simethicone (Mylanta) 30 ml DAILY PRN PO DYSPEPSIA 07/19/20 22:15 Amlodipine Besylate (Norvasc) 10 mg DAILY PO 07/20/20 09:00 07/20/20 07:54 Atorvastatin Calcium (Lipitor) 20 mg QHS PO 07/19/20 21:00 Calcitriol (Rocaltrol) 0.25 mcg DAILY PO 07/20/20 09:00 07/20/20 07:55 Carvedilol (COReg) 25 mg BID PO 07/19/20 21:00 07/20/20 07:55 Clopidogrel Bisulfate (PLAVix) 75 mg DAILY PO 07/20/20 09:00 07/20/20 09:03 Dextrose (Dextrose 50%) 25 ml ASDIRECTED PRN IV SEE LABEL COMMENTS 07/19/20 22:15 Ferrous Gluconate (Fergon) 324 mg BID PO 07/19/20 21:00 07/20/20 07:54 Glucagon (Glucagon) 1 mg ASDIRECTED PRN SC SEE LABEL COMMENTS 07/19/20 22:15 Glucose (Glucose) 16 GM ASDIRECTED PRN PO SEE LABEL COMMENTS 11/18/20 22:15 Home Med (Med Rec Complete!) ASDIRECTED XX 07/19/20 23:30 07/19/20 23:26 DC Hydralazine HCl (Apresoline) 25 mg BID PO 07/20/20 09:00 07/20/20 07:54 Hydroxyzine HCl (Atarax) 10 mg TID PRN PO ANXIETY 07/20/20 01:15 Insulin Human Lispro (HumaLOG INSULIN) See Protocol Table Q6H IL 07/20/20 00:00 07/20/20 00:31 DC Insulin Human Lispro (HumaLOG INSULIN) See Protocol Table Q6H IL 07/20/20 00:00 07/20/20 12:09 Insulin Human Regular (HumuLIN R INSULIN) 30 units BID@0730,1730 IL 07/20/20 07:30 07/20/20 07:30 Isosorbide Dinitrate (Isordil) 20 mg TID PO 07/19/20 21:00 07/20/20 07:55 Magnesium Hydroxide (Milk Of Magnesia) 30 ml DAILY PRN PO CONSTIPATION 07/19/20 22:15 Miscellaneous (Unresolved Patient Own Med Order) SEE LABEL COMMENTS DAILY XX 07/20/20 09:00 07/20/20 08:42 DC Omeprazole (PriLOSEC) 40 mg DAILY PO 07/20/20 09:00 07/20/20 07:56 Patient Own Medication (Patient'S Own Med) trelegy ellipta 100-62.5... DAILY INH 07/20/20 09:00 07/20/20 08:41 DC Potassium Chloride (Micro-K Extencaps) 10 meq BID PO 07/19/20 21:00 07/20/20 07:54 Ropinirole HCl (Requip) 2 mg BID PO 07/19/20 21:00 07/20/20 07:54 Salmeterol Xinafoate/ Fluticasone (Advair Hfa 45-21 Mcg/Act) 2 puff RBID INH 07/20/20 08:00 Sertraline HCl (Zoloft) 100 mg QHS PO 07/19/20 21:00 Sodium Chloride 1,000 ml @ 50 mls/hr Q20H IV 07/19/20 22:07 07/20/20 08:05 DC 11/18/20 22:59 Sodium Chloride 1,000 ml @ 250 mls/hr Q4H IV 07/19/20 20:30 07/20/20 01:35 DC 07/19/20 21:27 Spironolactone (Aldactone) 25 mg DAILY PO 07/20/20 09:00 07/20/20 07:53 Tiotropium [place] (Spiriva Handihaler) 1 inhalation DAILY@08 INH 07/20/20 08:00 Vancomycin HCl 750 mg/IV Miscellaneous Supplies 1 each/ Dextrose 275 ml @ 275 mls/hr Q12H IV 07/19/20 22:15 07/19/20 22:17 DC Allergies Coded Allergies: Penicillins (Verified Allergy, Mild, RASH/ITCHING, 06/22/20) Rosemarie Yuan MD Jul 20, 2020 15:19
[2020-07-20] MEDS ORDERED: VANCOMYCIN HCL 750 MG, VIAL MATE ADAPTER 1 EACH in D5W 250 ML IV ONE ×2 (16:00→17:00)
[2020-07-20] MEDS: ACETAMINOPHEN TAB 650MG DOSE (2X325MG) PO PRN (17:03)
[2020-07-20 20:00] VITALS: BP 178/84
[2020-07-20] MEDS: SERTRALINE HCL 50 MG TAB PO SCH (20:37)
[2020-07-20] MEDS: ATORVASTATIN 20 MG TAB PO SCH (20:37)
[2020-07-20 21:00] VITALS: BP 173/64
[2020-07-21] VITALS (10 sets, daily range): BP systolic 148–162; BP diastolic 50–74; O2SAT 93
[2020-07-21] MEDS ORDERED: BUPIVACAINE HCL 0.5% 30 ML VIAL As Ordered ONE (06:54)
[2020-07-21] MEDS ORDERED: LIDOCAINE 1% MDV 20ML VIAL As Ordered ONE (06:54)
[2020-07-21] MEDS ORDERED: dexameTHASONE 4 MG/ML 1ML VIAL (J1100 PER 1MG) As Ordered ONE (06:54)
[2020-07-21 07:01] LABS: HEMATOCRIT 27.1 % (36.0-47.0); HEMOGLOBIN 8.3 g/dl (12.0-15.5); MEAN CORPUSCULAR HEMOGLOBIN 26.7 pg (27.0-33.0); MEAN CORPUSCULAR HGB CONC 30.6 g/dl (32.0-36.5); MEAN CORPUSCULAR VOLUME 87.1 fl (80.0-96.0); PLATELET COUNT, AUTOMATED 172 10^3/uL (150-450); RED BLOOD COUNT 3.11 10^6/uL (4.00-5.40); WHITE BLOOD COUNT 8.9 10^3/uL (4.0-10.0)
[2020-07-21] MEDS: HumaLOG INSULIN (NovoLOG) PER UNIT SC SCH ×6 (07:06→20:23)
[2020-07-21 07:21] LABS: ALBUMIN 2.4 GM/DL (3.2-5.2); BILIRUBIN,TOTAL 0.4 MG/DL (0.2-1.0); CALCIUM LEVEL 8.5 MG/DL (8.8-10.2); CREATININE FOR GFR 1.9 MG/DL (0.55-1.30); GLOMERULAR FILTRATION RATE 28.1 (>45); POTASSIUM SERUM 4.4 MEQ/L (3.5-5.1)
[2020-07-21] MEDS: ADVAIR HFA 45/21MCG INHALER INH SCH ×2 (07:27→19:34)
[2020-07-21] MEDS: TIOTROPIUM INHALER/CAPSULE (SPIRIVA) INH SCH (07:27)
--- NOTE | 2020-07-21 07:28 | CR ---
DATE OF CONSULTATION: 07/20/2020 REASON FOR CONSULTATION: Right toe infection. Oxana Clancy is a patient whom I saw on a previous admission last month with a right hallux ulcer. She had been seen by her squilgeer in [place] prior to that. Since she was discharged, she had her angioplasty. She has ongoing wound issues. She had been readmitted due to swelling earlier this morning and again has been readmitted due to poor wound healing. She had x-rays, which showed findings suspicious for osteomyelitis of the distal phalanx of the hallux. She notes that it has remained swollen over the last few weeks. MEDICAL HISTORY: Significant for: 1. Peripheral arterial disease. 2. Chronic obstructive pulmonary disease (COPD). 3. Pulmonary hypertension. 4. Chronic kidney disease. 5. Diabetes with neuropathy. 6. Coronary artery disease. 7. Aortic valve stenosis. 8. Atrial fibrillation. 9. Depression. 10. Anxiety. 11. Restless leg syndrome. 12. Gastroesophageal reflux disease (GERD). SURGICAL HISTORY: 1. Appendectomy. 2. Back surgery. 3. Carpal tunnel repair. 4. Hernia repair. 5. Hysterectomy. 6. Knee surgery. 7. Coronary artery bypass graft (CABG). 8. Transcatheter aortic valve replacement (TAVR). 9. Right foot 5th metatarsal amputation. ALLERGIES: PENICILLINS. REVIEW OF SYSTEMS: She denies nausea, vomiting, fever, or chills. FAMILY HISTORY: History of diabetes. Vitals signs are examined. She has been afebrile. Labs are reviewed. White blood cell count on admission was 10.1, hemoglobin today 7.9, A1c of 7.7. Lower extremity examination: There is erythema and edema of the right forefoot stemming from the right hallux. The right medial hallux has a necrotic wound with probe to bone and foul-smelling odor. ASSESSMENT: A 69-year-old diabetic female with right hallux osteomyelitis. PLAN: Patient will be nothing by mouth at midnight. We will plan right hallux amputation tomorrow. She is to have COVID testing prior to this. [facility]
[2020-07-21] MEDS: VANCOMYCIN HCL 1,000 MG, VIAL MATE ADAPTER 1 EACH in D5W 250 ML IV SCH (09:45)
[2020-07-21] MEDS: HumuLIN R (REGULAR) INSULIN (NovoLIN R) **100U/ML** PER UNIT SC SCH ×2 (09:46→17:13)
[2020-07-21] MEDS: OMEPRAZOLE 20 MG CAP PO SCH (09:47)
[2020-07-21] MEDS: CARVedilol 12.5 MG TAB PO SCH ×2 (09:47→20:20)
[2020-07-21] MEDS: CALCITRIOL 0.25 MCG CAP (S0169) PO SCH (09:48)
[2020-07-21] MEDS: amLODIPine 10 MG TAB PO SCH (09:48)
[2020-07-21] MEDS: ISOSORBIDE DIN. (ISORDIL) 20 MG TAB PO SCH ×3 (09:49→20:21)
[2020-07-21] MEDS: FERROUS GLUCONATE 324 MG TAB PO SCH ×2 (09:49→20:21)
[2020-07-21] MEDS: POTASSIUM CHLORIDE 10 MEQ SR TABLET PO SCH ×2 (09:50→20:21)
[2020-07-21] MEDS: SPIRONOLACTONE 25 MG TAB PO SCH (09:51)
[2020-07-21] MEDS: rOPINIRole 1MG TAB PO SCH ×2 (09:54→20:20)
[2020-07-21] MEDS: **hydrALAZINE** 10 MG TAB PO SCH ×2 (09:54→20:22)
[2020-07-21] MEDS ORDERED: LIDOCAINE 2% 100MG/5ML SDV (FOR ANES.) As Ordered ONE (10:28)
[2020-07-21] MEDS ORDERED: ONDANSETRON 4MG/2ML VIAL As Ordered ONE (10:29)
[2020-07-21] MEDS ORDERED: fentaNYL 100 MCG/2 ML INJECTION (J3010) As Ordered ONE (10:29)
[2020-07-21] MEDS ORDERED: MIDAZOLAM INJ 2MG/2ML VIAL (J2250 PER 1MG) As Ordered ONE (10:29)
[2020-07-21] MEDS ORDERED: propofoL 200 MG/20 ML VIAL As Ordered ONE (10:29)
[2020-07-21] MEDS ORDERED: oxyCODONE 5MG TAB PO PRN ×2 (12:45→15:15)
[2020-07-21] MEDS ORDERED: ONDANSETRON 4MG/2ML VIAL IV PRN ×2 (12:45→15:15)
[2020-07-21] MEDS ORDERED: LR 1,000 ML IV SCH ×2 (12:45→15:15)
--- NOTE | 2020-07-21 15:28 | IPNPDOC ---
Date Seen The patient was seen on 07/21/20. Progress Note SUBJECTIVE: OR today for right large toe amputation. Denies incr pain, fevers, chills, n/v/d. OBJECTIVE: SUBJECTIVE: Discussed case with Dr. Cross this AM. Advanced diet as no OR time is definite currently. Denies chest pain, fevers, chills, n/v/d. OBJECTIVE: PHYSICAL EXAMINATION: VS: Please see below GEN: obese / well developed/ NAD HEENT: lips acyanotic /mucus membranes moist and pink CVS: RRR/NMRG/ radial and dorsalis pedis pulses intact LUNGS: able to speak full sentences without stopping to take a breath / no coughing / lungs are clear to auscultation bilaterally on room air ABDOMEN: Contour (obese) MSK/EXTREMITIES: NCAT INTEGUMENT: the skin on her right hallux is slightly red and thickened, there is an ulcer at the anterior part of the toe and on the lateral portion,some increased swelling around the right large toe NEURO: CN 2-12 are grossly intact / speech is not dysarthric PSYCH: alert and oriented to person place and time/ able to understand and follo w all commands LABORATORY DATA: Please see below IMAGING: Toe xray : Cortical abnormality at the base of distal phalanx of the big toe with soft tissue edema. Findings suspicious for osteomyelitis." MICROBIOLOGY: Right large toe wound cx: pending BCx x 2 sets pending ASSESSMENT: is a 69 yr old is a 69 yr old w a hx of Chronic right hallus non healing ulcer, Chronic HFpEF, PAD, COPD , Severe pulmonary hypertension, Morbid obesity, JEFFERY with nocturnal O2 use, CKD 4 with secondary hyperparathyroidism, Anemia of chronic disease, IDDM complicated by neuropathy, Coronary artery disease w hx of CABG, TAVR, Chronic A fib, Hypertensive heart disease, Depression/ Anxiety and RLS who presented w c/o of worsening redness of her toe and draining of green discharge from the ulcer on her toe; she will be admitted to r/o right hallux osteomyelitis and treatment of EVERTON on CKD. PLAN: #Chronic right hallux ulcer w possible right toe osteomyelitis -WBC wnl, afebrile -OR today for amputation of right large toe -Dr. Cross, podiatry following -IV vancomycin #CKD4 likely 2/2 HTN and or DM nephropathy. -Cr baseline -Encouraged Po hydration throughout day #Chronic anemia likely multifactorial to chronic disease, CHELO -H/H 8.11/25 -No s/s of bleeding -Iron low -On iron supplement BID, consider venofer injection this admission -F/u CBC daily, Goal to transfuse <7 Hgb #Chronic HFpEF, not currently in exacerbation -Holding diuretic until after surgery, likely resume on 07/22/20 #IDDM complicated by neuropathy -C/w BID humulin, ISS, FS AC/HS, hypoglycemia protocol. 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 Restart VONDA DISPOSITION: OR today by Dr. Cross. PT/OT. Plan is discharge home when able. VS, I&O, 24H, Fishbone Vital Signs/I&O Vital Signs Date Time Temp Pulse Resp B/P (MAP) Pulse Ox O2 Delivery O2 Flow Rate FiO2 07/21/20 14:15 97.8 55 17 159/61 (93) 96 Room Air 07/21/20 12:40 3 07/21/20 12:24 97 I&O- Last 24 Hours up to 6 AM 07/21/20 06:00 Intake Total 1942 ml Output Total 250 ml Balance 1692 ml Laboratory Data 24H LABS Laboratory Tests 2 07/20/20 16:53: Bedside Glucose (Misc Panel) 130H 07/21/20 00:04: Bedside Glucose (Misc Panel) 125H 07/21/20 06:14: Nucleated Red Blood Cells % (auto) 0.0, Anion Gap 7L, Glomerular Filtration Rate 28.1L, Calcium Level 8.5L, Total Bilirubin 0.4, Aspartate Amino Transf (AST/SGOT) 16, Alanine Aminotransferase (ALT/SGPT) 16, Alkaline Phosphatase 74, Total Protein 6.0L, Albumin 2.4L, Albumin/Globulin Ratio 0.7L 07/21/20 06:43: Bedside Glucose (Misc Panel) 247H 07/21/20 12:26: Bedside Glucose (Misc Panel) 177H CBC/BMP Laboratory Tests 07/21/20 06:14 Microbiology Microbiology 07/19/20 Blood Culture - Preliminary, Resulted No growth after 24 hours . All specim... 07/19/20 Gram Stain - Final, Complete 07/19/20 Wound Culture - Final, Complete Staphylococcus Aureus 07/19/20 Blood Culture - Preliminary, Resulted No growth after 24 hours . All specim... Current Medications Current Medications Medications (Trade) Dose Ordered Sig/Andrade Route PRN Reason Start Time Stop Time Status Last Admin Dose Admin Acetaminophen (Tylenol Tab) 650 mg Q4H PRN PO PAIN OR FEVER 07/19/20 22:15 07/20/20 17:03 Al Hydrox/Mg Hydrox/Simethicone (Mylanta) 30 ml DAILY PRN PO DYSPEPSIA 07/19/20 22:15 Amlodipine Besylate (Norvasc) 10 mg DAILY PO 07/20/20 09:00 07/21/20 09:48 Atorvastatin Calcium (Lipitor) 20 mg QHS PO 07/19/20 21:00 07/20/20 20:37 Calcitriol (Rocaltrol) 0.25 mcg DAILY PO 07/20/20 09:00 07/21/20 09:48 Carvedilol (COReg) 25 mg BID PO 07/19/20 21:00 07/21/20 09:47 Clopidogrel Bisulfate (PLAVix) 75 mg DAILY PO 07/20/20 09:00 07/20/20 15:15 DC 07/20/20 09:03 Dextrose (Dextrose 50%) 25 ml ASDIRECTED PRN IV SEE LABEL COMMENTS 07/19/20 22:15 Ferrous Gluconate (Fergon) 324 mg BID PO 07/19/20 21:00 07/21/20 09:49 Glucagon (Glucagon) 1 mg ASDIRECTED PRN SC SEE LABEL COMMENTS 07/19/20 22:15 Glucose (Glucose) 16 GM ASDIRECTED PRN PO SEE LABEL COMMENTS 07/19/20 22:15 Home Med (Med Rec Complete!) ASDIRECTED XX 07/19/20 23:30 07/19/20 23:26 DC Hydralazine HCl (Apresoline) 25 mg BID PO 07/20/20 09:00 07/21/20 09:54 Hydroxyzine HCl (Atarax) 10 mg TID PRN PO ANXIETY 07/20/20 01:15 Insulin Human Lispro (HumaLOG INSULIN) See Protocol Table Q6H CT 07/20/20 00:00 07/20/20 00:31 DC Insulin Human Lispro (HumaLOG INSULIN) See Protocol Table Q6H CT 07/20/20 00:00 07/20/20 18:03 Insulin Human Regular (HumuLIN R INSULIN) 30 units BID@0730,1730 CT 07/20/20 07:30 07/21/20 09:46 Isosorbide Dinitrate (Isordil) 20 mg TID PO 07/19/20 21:00 07/21/20 09:49 Lactated Ringer's 1,000 ml @ 75 mls/hr [id number] IV 07/21/20 12:45 07/21/20 13:45 DC Lactated Ringer's 1,000 ml @ 75 mls/hr [id number] IV 07/21/20 15:15 07/21/20 16:15 Magnesium Hydroxide (Milk Of Magnesia) 30 ml DAILY PRN PO CONSTIPATION 07/19/20 22:15 Miscellaneous (Unresolved Patient Own Med Order) SEE LABEL COMMENTS DAILY XX 07/20/20 09:00 07/20/20 08:42 DC Omeprazole (PriLOSEC) 40 mg DAILY PO 07/20/20 09:00 07/21/20 09:47 Ondansetron HCl (ZOFRAN INJection) 4 mg Q4HP PRN IV NAUSEA OR VOMITING 07/21/20 12:45 07/21/20 13:45 DC Ondansetron HCl (ZOFRAN INJection) 4 mg Q4HP PRN IV NAUSEA OR VOMITING 07/21/20 15:15 07/21/20 16:15 Oxycodone HCl (Roxicodone, Oxyir) 5 mg ASDIRECTED PRN PO PAIN LEVEL 1-4 07/21/20 12:45 07/21/20 13:45 DC Oxycodone HCl (Roxicodone, Oxyir) 5 mg ASDIRECTED PRN PO PAIN LEVEL 1-4 07/21/20 15:15 07/21/20 16:15 Patient Own Medication (Patient'S Own Med) tremolly ellipta 100-62.5... DAILY INH 07/20/20 09:00 07/20/20 08:41 DC Potassium Chloride (Micro-K Extencaps) 10 meq BID PO 07/19/20 21:00 07/21/20 09:50 Ropinirole HCl (Requip) 2 mg BID PO 07/19/20 21:00 07/21/20 09:54 Salmeterol Xinafoate/ Fluticasone (Advair Hfa 45-21 Mcg/Act) 2 puff RBID INH 07/20/20 08:00 07/21/20 07:27 Sertraline HCl (Zoloft) 100 mg QHS PO 07/19/20 21:00 07/20/20 20:37 Sodium Chloride 1,000 ml @ 50 mls/hr Q20H IV 07/19/20 22:07 07/20/20 08:05 DC 07/19/20 22:59 Sodium Chloride 1,000 ml @ 250 mls/hr Q4H IV 07/19/20 20:30 07/20/20 01:35 DC 07/19/20 21:27 Spironolactone (Aldactone) 25 mg DAILY PO 07/20/20 09:00 07/21/20 09:51 Tiotropium [place] (Spiriva Handihaler) 1 inhalation DAILY@08 INH 07/20/20 08:00 07/21/20 07:27 Vancomycin HCl 750 mg/IV Miscellaneous Supplies 1 each/ Dextrose 275 ml @ 275 mls/hr Q12H IV 07/19/20 22:15 07/19/20 22:17 DC Vancomycin HCl 750 mg/IV Miscellaneous Supplies 1 each/ Dextrose 275 ml @ 275 mls/hr Q24H IV 07/20/20 15:15 07/20/20 15:36 DC Vancomycin HCl 1000 mg/IV Miscellaneous Supplies 1 each/ Dextrose 270 ml @ 270 mls/hr Q24H IV 07/21/20 08:00 07/21/20 09:45 Allergies Coded Allergies: Penicillins (Verified Allergy, Mild, RASH/ITCHING, 06/22/20) Rosemarie Yuan MD Jul 21, 2020 15:28
[2020-07-21] MEDS ORDERED: DEXTROSE 50% 50 ML SYRINGE IV PRN (17:30)
[2020-07-21] MEDS ORDERED: GLUCAGON INJ 1MG VIAL SC PRN (17:30)
[2020-07-21] MEDS ORDERED: GLUCOSE 4GM CHEW TABLET PO PRN (17:30)
[2020-07-21] MEDS: SERTRALINE HCL 50 MG TAB PO SCH (20:20)
[2020-07-21] MEDS: ACETAMINOPHEN TAB 650MG DOSE (2X325MG) PO PRN (20:22)
[2020-07-21] MEDS: ATORVASTATIN 20 MG TAB PO SCH (20:22)
[2020-07-21] MEDS ORDERED: traMADol 50 MG TAB PO ONE (23:30)
[2020-07-22] VITALS (7 sets, daily range): BP systolic 145–176; BP diastolic 56–72; O2SAT 90–98
[2020-07-22] MEDS: ACETAMINOPHEN TAB 650MG DOSE (2X325MG) PO PRN ×3 (02:39→20:41)
[2020-07-22 06:06] LABS: HEMATOCRIT 25.1 % (36.0-47.0); HEMOGLOBIN 7.8 g/dl (12.0-15.5); MEAN CORPUSCULAR HEMOGLOBIN 27.5 pg (27.0-33.0); MEAN CORPUSCULAR HGB CONC 31.1 g/dl (32.0-36.5); MEAN CORPUSCULAR VOLUME 88.4 fl (80.0-96.0); PLATELET COUNT, AUTOMATED 157 10^3/uL (150-450); RED BLOOD COUNT 2.84 10^6/uL (4.00-5.40); WHITE BLOOD COUNT 9.9 10^3/uL (4.0-10.0)
[2020-07-22 06:45] LABS: ALBUMIN 2.3 GM/DL (3.2-5.2); BILIRUBIN,TOTAL 0.5 MG/DL (0.2-1.0); CALCIUM LEVEL 8.2 MG/DL (8.8-10.2); CREATININE FOR GFR 1.98 MG/DL (0.55-1.30); GLOMERULAR FILTRATION RATE 26.8 (>45); POTASSIUM SERUM 5.3 MEQ/L (3.5-5.1); TOTAL PROTEIN 5.2 GM/DL (6.4-8.2)
[2020-07-22] MEDS: TIOTROPIUM INHALER/CAPSULE (SPIRIVA) INH SCH (08:55)
[2020-07-22] MEDS: ADVAIR HFA 45/21MCG INHALER INH SCH ×2 (08:55→19:11)
[2020-07-22] MEDS: PERCOCET 5MG/325MG TAB PO PRN ×2 (09:04→17:49)
[2020-07-22] MEDS: OMEPRAZOLE 20 MG CAP PO SCH (09:05)
[2020-07-22] MEDS: **hydrALAZINE** 10 MG TAB PO SCH (09:05)
[2020-07-22] MEDS: CALCITRIOL 0.25 MCG CAP (S0169) PO SCH (09:07)
[2020-07-22] MEDS: amLODIPine 10 MG TAB PO SCH (09:07)
[2020-07-22] MEDS: CARVedilol 12.5 MG TAB PO SCH ×2 (09:08→20:40)
[2020-07-22] MEDS: ISOSORBIDE DIN. (ISORDIL) 20 MG TAB PO SCH ×3 (09:09→20:42)
[2020-07-22] MEDS: FERROUS GLUCONATE 324 MG TAB PO SCH ×2 (09:10→20:40)
[2020-07-22] MEDS: HumaLOG INSULIN (NovoLOG) PER UNIT SC SCH ×4 (09:11→21:00)
[2020-07-22] MEDS: HumuLIN R (REGULAR) INSULIN (NovoLIN R) **100U/ML** PER UNIT SC SCH ×2 (09:12→17:51)
[2020-07-22] MEDS: VANCOMYCIN HCL 1,000 MG, VIAL MATE ADAPTER 1 EACH in D5W 250 ML IV SCH (09:12)
[2020-07-22] MEDS: rOPINIRole 1MG TAB PO SCH (09:13)
[2020-07-22 12:21] LABS: VANCOMYCIN RANDOM 15.3 UG/ML
[2020-07-22] MEDS: traMADol 50 MG TAB PO PRN ×2 (14:25→20:42)
--- NOTE | 2020-07-22 15:19 | IPNPDOC ---
Date Seen The patient was seen on 07/22/20. Progress Note SUBJECTIVE: POD1 of right large toe amputation. PT: home with services. BP elevated, restarted home torsemide. Denies incr pain, shortness of breath. fevers, chills, n/v/d. OBJECTIVE: PHYSICAL EXAMINATION: VS: Please see below GEN: obese / well developed/ NAD HEENT: lips acyanotic /mucus membranes moist and pink CVS: RRR/NMRG/ radial and dorsalis pedis pulses intact LUNGS: CTAB, no W/R/R ABDOMEN: Contour (obese) MSK/EXTREMITIES: NCAT INTEGUMENT: Right foot wrapped in dressing, no extending erythema or swelling from effected area. NEURO: CN 2-12 are grossly intact, AAOx3 PSYCH: Mood and affect appropriate LABORATORY DATA: Please see below IMAGING: Renal US: Unremarkable ultrasound Toe xray : Cortical abnormality at the base of distal phalanx of the big toe with soft tissue edema. 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 PLAN: #Chronic right hallux ulcer w possible right toe osteomyelitis - POD 1 right large toe amputation -WBC wnl, afebrile -Per PT: Patient demonstrates safe functional mobility during PT eval and can be DC home when medically cleared. -Wound Cx: staph aureus -Pathology 07/21/20: pending -IV vancomycin currently, will discuss with podiatry when to transition to PO -Dr. Cross, podiatry following #HTN -Restarted torsemide BID, c/w amlodipine, Coreg, hydralazine -Monitor Cr #CKD4 likely 2/2 HTN and/or DM nephropathy. -Cr baseline -Encouraged Po hydration throughout day #Chronic anemia likely multifactorial to chronic disease, CHELO -H/H 7.8/25.1 -No s/s of bleeding -Iron low -On iron supplement BID, consider venofer injection this admission -F/u CBC daily, Goal to transfuse <7 Hgb #Chronic HFpEF, not currently in exacerbation -C/w all home cardiac meds #IDDM complicated by neuropathy -C/w BID humulin, ISS, FS AC/HS, hypoglycemia protocol. 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 Podiatry following. VS, I&O, 24H, Fishbone Vital Signs/I&O Vital Signs Date Time Temp Pulse Resp B/P (MAP) Pulse Ox O2 Delivery O2 Flow Rate FiO2 07/22/20 14:55 18 07/22/20 14:25 94 Nasal Cannula 07/22/20 14:00 97.8 62 172/65 (100) 07/22/20 10:00 2.0 07/21/20 12:24 97 I&O- Last 24 Hours up to 6 AM 07/22/20 05:59 Intake Total 595 ml Output Total 450 ml Balance 145 ml Laboratory Data 24H LABS Laboratory Tests 2 07/21/20 16:23: Bedside Glucose (Misc Panel) 117H 07/21/20 20:20: Bedside Glucose (Misc Panel) 136H 07/22/20 05:55: Nucleated Red Blood Cells % (auto) 0.0, Anion Gap 4L, Glomerular Filtration Rate 26.8L, Calcium Level 8.2L, Total Bilirubin 0.5, Aspartate Amino Transf (AST/SGOT) 20, Alanine Aminotransferase (ALT/SGPT) 18, Alkaline Phosphatase 81, Total Protein 5.2L, Albumin 2.3L, Albumin/Globulin Ratio 0.8L, Random Vancomycin Level 15.3 07/22/20 06:59: Bedside Glucose (Misc Panel) 224H 07/22/20 11:37: Bedside Glucose (Misc Panel) 211H CBC/BMP Laboratory Tests 07/22/20 05:55 Microbiology Microbiology 07/19/20 Blood Culture - Preliminary, Resulted No Growth after 48 hours. All Specime... 07/19/20 Gram Stain - Final, Complete 07/19/20 Wound Culture - Final, Complete Staphylococcus Aureus 07/19/20 Blood Culture - Preliminary, Resulted No Growth after 48 hours. All Specime... Current Medications Current Medications Medications (Trade) Dose Ordered Sig/Andrade Route PRN Reason Start Time Stop Time Status Last Admin Dose Admin Acetaminophen (Tylenol Tab) 650 mg Q4H PRN PO PAIN OR FEVER 07/19/20 22:15 07/22/20 08:35 DC 07/22/20 02:39 Acetaminophen (Tylenol Tab) 650 mg Q6HP PRN PO PAIN OR FEVER 07/22/20 08:45 07/22/20 09:06 Al Hydrox/Mg Hydrox/Simethicone (Mylanta) 30 ml DAILY PRN PO DYSPEPSIA 07/19/20 22:15 Amlodipine Besylate (Norvasc) 10 mg DAILY PO 07/20/20 09:00 07/22/20 09:07 Atorvastatin Calcium (Lipitor) 20 mg QHS PO 07/19/20 21:00 07/21/20 20:22 Calcitriol (Rocaltrol) 0.25 mcg DAILY PO 07/20/20 09:00 07/22/20 09:07 Carvedilol (COReg) 25 mg BID PO 07/19/20 21:00 07/22/20 09:08 Clopidogrel Bisulfate (PLAVix) 75 mg DAILY PO 07/20/20 09:00 07/20/20 15:15 DC 07/20/20 09:03 Dextrose (Dextrose 50%) 25 ml ASDIRECTED PRN IV SEE LABEL COMMENTS 07/19/20 22:15 07/21/20 17:31 DC Dextrose (Dextrose 50%) 25 ml ASDIRECTED PRN IV SEE LABEL COMMENTS 07/21/20 17:30 Ferrous Gluconate (Fergon) 324 mg BID PO 07/19/20 21:00 07/22/20 09:10 Glucagon (Glucagon) 1 mg ASDIRECTED PRN SC SEE LABEL COMMENTS 07/19/20 22:15 07/21/20 17:31 DC Glucagon (Glucagon) 1 mg ASDIRECTED PRN SC SEE LABEL COMMENTS 07/21/20 17:30 Glucose (Glucose) 16 GM ASDIRECTED PRN PO SEE LABEL COMMENTS 07/19/20 22:15 07/21/20 17:31 DC Glucose (Glucose) 16 GM ASDIRECTED PRN PO SEE LABEL COMMENTS 07/21/20 17:30 Home Med (Med Rec Complete!) ASDIRECTED XX 07/19/20 23:30 07/19/20 23:26 DC Hydralazine HCl (Apresoline) 25 mg BID PO 07/20/20 09:00 07/22/20 09:05 Hydroxyzine HCl (Atarax) 10 mg TID PRN PO ANXIETY 07/20/20 01:15 Insulin Human Lispro (HumaLOG INSULIN) See Protocol Table AC NV 07/21/20 17:30 07/22/20 13:44 Insulin Human Lispro (HumaLOG INSULIN) See Protocol Table Q6H NV 07/20/20 00:00 07/20/20 00:31 DC Insulin Human Lispro (HumaLOG INSULIN) See Protocol Table Q6H NV 07/20/20 00:00 07/21/20 17:27 DC 07/21/20 17:13 Insulin Human Lispro (HumaLOG INSULIN) See Protocol Table QHS NV 07/21/20 21:00 Insulin Human Regular (HumuLIN R INSULIN) 30 units BID@0730,1730 NV 07/20/20 07:30 07/22/20 09:12 Isosorbide Dinitrate (Isordil) 20 mg TID PO 07/19/20 21:00 07/22/20 09:09 Lactated Ringer's 1,000 ml @ 75 mls/hr [id number] IV 07/21/20 12:45 07/21/20 13:45 DC Lactated Ringer's 1,000 ml @ 75 mls/hr [id number] IV 07/21/20 15:15 07/21/20 16:15 DC Magnesium Hydroxide (Milk Of Magnesia) 30 ml DAILY PRN PO CONSTIPATION 07/19/20 22:15 Miscellaneous (Unresolved Patient Own Med Order) SEE LABEL COMMENTS DAILY XX 07/20/20 09:00 07/20/20 08:42 DC Omeprazole (PriLOSEC) 40 mg DAILY PO 07/20/20 09:00 07/22/20 09:05 Ondansetron HCl (ZOFRAN INJection) 4 mg Q4HP PRN IV NAUSEA OR VOMITING 07/21/20 12:45 07/21/20 13:45 DC Ondansetron HCl (ZOFRAN INJection) 4 mg Q4HP PRN IV NAUSEA OR VOMITING 07/21/20 15:15 07/21/20 16:15 DC Oxycodone HCl (Roxicodone, Oxyir) 5 mg ASDIRECTED PRN PO PAIN LEVEL 1-4 07/21/20 12:45 07/21/20 13:45 DC Oxycodone HCl (Roxicodone, Oxyir) 5 mg ASDIRECTED PRN PO PAIN LEVEL 1-4 07/21/20 15:15 07/21/20 16:15 DC Oxycodone/ Acetaminophen (Percocet 5mg/ 325mg Tablet) 1 tab Q6HP PRN PO SEVERE PAIN (PS 8-10) 07/22/20 08:45 07/22/20 09:04 Patient Own Medication (Patient'S Own Med) trelegy ellipta 100-62.5... DAILY INH 07/20/20 09:00 07/20/20 08:41 DC Potassium Chloride (Micro-K Extencaps) 10 meq BID PO 07/19/20 21:00 07/22/20 08:16 DC 07/21/20 20:21 Ropinirole HCl (Requip) 2 mg BID PO 07/19/20 21:00 07/22/20 09:13 Salmeterol Xinafoate/ Fluticasone (Advair Hfa 45-21 Mcg/Act) 2 puff RBID INH 07/20/20 08:00 07/22/20 08:55 Sertraline HCl (Zoloft) 100 mg QHS PO 07/19/20 21:00 07/21/20 20:20 Sodium Chloride 1,000 ml @ 50 mls/hr Q20H IV 07/19/20 22:07 07/20/20 08:05 DC 07/19/20 22:59 Sodium Chloride 1,000 ml @ 250 mls/hr Q4H IV 07/19/20 20:30 07/20/20 01:35 DC 07/19/20 21:27 Spironolactone (Aldactone) 25 mg DAILY PO 07/20/20 09:00 07/22/20 08:16 DC 07/21/20 09:51 Tiotropium [place] (Spiriva Handihaler) 1 inhalation DAILY@08 INH 07/20/20 08:00 07/22/20 08:55 Tramadol HCl (Ultram) 50 mg Q6HP PRN PO MODERATE PAIN (PS 5-7) 07/22/20 08:45 07/22/20 14:25 Vancomycin HCl 750 mg/IV Miscellaneous Supplies 1 each/ Dextrose 275 ml @ 275 mls/hr Q12H IV 07/19/20 22:15 07/19/20 22:17 DC Vancomycin HCl 750 mg/IV Miscellaneous Supplies 1 each/ Dextrose 275 ml @ 275 mls/hr Q24H IV 07/20/20 15:15 07/20/20 15:36 DC Vancomycin HCl 1000 mg/IV Miscellaneous Supplies 1 each/ Dextrose 270 ml @ 270 mls/hr Q24H IV 07/21/20 08:00 07/22/20 09:12 Allergies Coded Allergies: Penicillins (Verified Allergy, Mild, RASH/ITCHING, 06/22/20) Rosemarie Yuan MD Jul 22, 2020 15:19
[2020-07-22] MEDS: TORSEMIDE (DEMADEX) 50 MG PER 1/2 TAB PO SCH (17:53)
[2020-07-22] MEDS: CLOPIDOGREL 75 MG TAB PO SCH (17:57)
[2020-07-22] MEDS: SERTRALINE 100 MG TAB PO SCH (20:40)
[2020-07-22] MEDS: rOPINIRole 2MG TAB PO SCH (20:40)
[2020-07-22] MEDS: ATORVASTATIN 20 MG TAB PO SCH (20:40)
[2020-07-22] MEDS: **hydrALAZINE HCL** 25 MG TAB PO SCH (20:41)
[2020-07-23 06:01] VITALS: BP 156/67
[2020-07-23 06:24] LABS: HEMATOCRIT 24.5 % (36.0-47.0); HEMOGLOBIN 7.6 g/dl (12.0-15.5); MEAN CORPUSCULAR HEMOGLOBIN 27.5 pg (27.0-33.0); MEAN CORPUSCULAR VOLUME 88.8 fl (80.0-96.0); PLATELET COUNT, AUTOMATED 154 10^3/uL (150-450); RED BLOOD COUNT 2.76 10^6/uL (4.00-5.40); WHITE BLOOD COUNT 9.3 10^3/uL (4.0-10.0)
[2020-07-23 06:46] LABS: ALBUMIN 2.5 GM/DL (3.2-5.2); BILIRUBIN,TOTAL 0.6 MG/DL (0.2-1.0); CALCIUM LEVEL 8.3 MG/DL (8.8-10.2); CREATININE FOR GFR 2.21 MG/DL (0.55-1.30); GLOMERULAR FILTRATION RATE 23.6 (>45); TOTAL PROTEIN 5.3 GM/DL (6.4-8.2)
[2020-07-23] MEDS: TIOTROPIUM INHALER/CAPSULE (SPIRIVA) INH SCH (07:49)
[2020-07-23] MEDS: ADVAIR HFA 45/21MCG INHALER INH SCH ×2 (07:49→20:17)
[2020-07-23 08:00] VITALS: O2SAT 92
[2020-07-23] MEDS: HumuLIN R (REGULAR) INSULIN (NovoLIN R) **100U/ML** PER UNIT SC SCH ×2 (08:18→17:46)
[2020-07-23] MEDS: HumaLOG INSULIN (NovoLOG) PER UNIT SC SCH ×4 (08:18→21:00)
[2020-07-23] MEDS: VANCOMYCIN HCL 1,000 MG, VIAL MATE ADAPTER 1 EACH in D5W 250 ML IV SCH (08:18)
[2020-07-23] MEDS: CARVedilol 12.5 MG TAB PO SCH ×2 (08:19→22:06)
[2020-07-23] MEDS: **hydrALAZINE HCL** 25 MG TAB PO SCH (08:19)
[2020-07-23] MEDS: rOPINIRole 2MG TAB PO SCH ×2 (08:20→22:05)
[2020-07-23] MEDS: OMEPRAZOLE 20 MG CAP PO SCH (08:20)
[2020-07-23] MEDS: ISOSORBIDE DIN. (ISORDIL) 20 MG TAB PO SCH ×3 (08:20→22:07)
[2020-07-23] MEDS: FERROUS GLUCONATE 324 MG TAB PO SCH ×2 (08:20→22:05)
[2020-07-23] MEDS: CLOPIDOGREL 75 MG TAB PO SCH (08:20)
[2020-07-23] MEDS: amLODIPine 10 MG TAB PO SCH (08:20)
[2020-07-23] MEDS: CALCITRIOL 0.25 MCG CAP (S0169) PO SCH (08:20)
[2020-07-23 08:48] LABS: VANCOMYCIN RANDOM 18.3 UG/ML
[2020-07-23] MEDS ORDERED: TORSEMIDE 100 MG TAB PO SCH (09:00)
[2020-07-23 14:00] VITALS: BP 175/61
--- NOTE | 2020-07-23 16:29 | IPNPDOC ---
Date Seen The patient was seen on 07/23/20. Progress Note SUBJECTIVE: POD2 of right large toe amputation. No events overnight. Denies incr pain, shortness of breath. fevers, chills, n/v/d. OBJECTIVE: PHYSICAL EXAMINATION: VS: Please see below GEN: obese / well developed/ NAD HEENT: lips acyanotic /mucus membranes moist and pink CVS: RRR/NMRG/ radial and dorsalis pedis pulses intact LUNGS: CTAB, no W/R/R ABDOMEN: Contour (obese) MSK/EXTREMITIES: NCAT INTEGUMENT: Right foot wrapped in dressing, no extending erythema or swelling from effected area. NEURO: CN 2-12 are grossly intact, AAOx3 PSYCH: Mood and affect appropriate LABORATORY DATA: Please see below IMAGING: Renal US: Unremarkable ultrasound Toe xray : Cortical abnormality at the base of distal phalanx of the big toe with soft tissue edema. 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 PLAN: #Chronic right hallux ulcer w possible right toe osteomyelitis -POD 2 right large toe amputation -WBC wnl, afebrile -Per PT: Patient demonstrates safe functional mobility during PT eval and can be DC home when medically cleared. -Wound Cx: staph aureus sensitive to Vancomycin -BCx: NG -Pathology 07/21/20: pending -IV vancomycin currently, will discuss with podiatry when to transition to PO after weekend -Dr. Cross, podiatry following #Chronic anemia likely multifactorial to chronic disease, CHELO -H/H 7.6/24.5 -No s/s of bleeding, not noted that there was a lot of bleeding during amputation -Iron low -On iron supplement BID, consider venofer injection -F/u CBC daily, Goal to transfuse <7 Hgb #HTN, resistant -Decreased torsemide QAM due to Cr bumping slightly -Increased hydralazine to 50 mg BID -C/w QPM torsemide, amlodipine. #CKD4 likely 2/2 HTN and/or DM nephropathy. -Cr still at baseline -Encouraged Po hydration throughout day #Chronic HFpEF, not currently in exacerbation -C/w all home cardiac meds #IDDM complicated by neuropathy -C/w BID humulin at decreased dose, ISS, FS AC/HS, hypoglycemia protocol. -Can increase to home humulin dose when blood sugars further increase #Chronic A fib -Stable -Xarelto #COPD -Stable on RA # PAD -Plavix ,statin #Coronary artery disease/ CABG -Stable -C/w statin, plavix #Depression/ Anxiety -C/w Sertraline #RLS -C/w Ropinirole # Morbid Obesity -complicates care -has co-existing DM and JEFFERY (but doesn't use PAP) -Pt can f/u PCP for STOP BANG questionnaire, mine car dispatcher consult & referral to Bariatric Surgeon #GERD -PPI #DVT Px - xarelto DISPOSITION: Once cleared medically, patient can return home with services per PT. Podiatry following. VS, I&O, 24H, Fishbone Vital Signs/I&O Vital Signs Date Time Temp Pulse Resp B/P (MAP) Pulse Ox O2 Delivery O2 Flow Rate FiO2 07/23/20 15:10 169/61 07/23/20 14:00 97.8 57 17 97 Room Air 07/23/20 08:00 2.0 07/21/20 12:24 97 I&O- Last 24 Hours up to 6 AM 07/23/20 06:00 Intake Total 1690 ml Output Total 0 ml Balance 1690 ml Laboratory Data 24H LABS Laboratory Tests 2 07/22/20 16:57: Bedside Glucose (Misc Panel) 132H 07/22/20 18:43: Bedside Glucose (Misc Panel) 191H 07/22/20 19:52: Bedside Glucose (Misc Panel) 191H 07/23/20 05:51: Nucleated Red Blood Cells % (auto) 0.0, Anion Gap 5L, Glomerular Filtration Rate 23.6L, Calcium Level 8.3L, Total Bilirubin 0.6, Aspartate Amino Transf (AST /SGOT) 17, Alanine Aminotransferase (ALT/SGPT) 18, Alkaline Phosphatase 79, Total Protein 5.3L, Albumin 2.5L, Albumin/Globulin Ratio 0.9L, Random Vancomycin Level 18.3 07/23/20 06:04: Bedside Glucose (Misc Panel) 160H 07/23/20 12:08: Bedside Glucose (Misc Panel) 144H CBC/BMP Laboratory Tests 07/23/20 05:51 Microbiology Microbiology 07/19/20 Blood Culture - Preliminary, Resulted No Growth after 72 hours. All specime... 07/19/20 Gram Stain - Final, Complete 07/19/20 Wound Culture - Final, Complete Staphylococcus Aureus 07/19/20 Blood Culture - Preliminary, Resulted No Growth after 72 hours. All specime... Current Medications Current Medications Medications (Trade) Dose Ordered Sig/Andrade Route PRN Reason Start Time Stop Time Status Last Admin Dose Admin Acetaminophen (Tylenol Tab) 650 mg Q4H PRN PO PAIN OR FEVER 07/19/20 22:15 07/22/20 08:35 DC 07/22/20 02:39 Acetaminophen (Tylenol Tab) 650 mg Q6HP PRN PO PAIN OR FEVER 07/22/20 08:45 07/22/20 20:41 Al Hydrox/Mg Hydrox/Simethicone (Mylanta) 30 ml DAILY PRN PO DYSPEPSIA 07/19/20 22:15 Amlodipine Besylate (Norvasc) 10 mg DAILY PO 07/20/20 09:00 07/23/20 08:20 Atorvastatin Calcium (Lipitor) 20 mg QHS PO 07/19/20 21:00 07/22/20 20:40 Calcitriol (Rocaltrol) 0.25 mcg DAILY PO 07/20/20 09:00 07/23/20 08:20 Carvedilol (COReg) 25 mg BID PO 07/19/20 21:00 07/23/20 08:19 Clopidogrel Bisulfate (PLAVix) 75 mg DAILY PO 07/20/20 09:00 07/20/20 15:15 DC 07/20/20 09:03 Clopidogrel Bisulfate (PLAVix) 75 mg DAILY PO 07/22/20 09:00 07/23/20 08:20 Dextrose (Dextrose 50%) 25 ml ASDIRECTED PRN IV SEE LABEL COMMENTS 07/19/20 22:15 07/21/20 17:31 DC Dextrose (Dextrose 50%) 25 ml ASDIRECTED PRN IV SEE LABEL COMMENTS 07/21/20 17:30 Ferrous Gluconate (Fergon) 324 mg BID PO 07/19/20 21:00 07/23/20 08:20 Glucagon (Glucagon) 1 mg ASDIRECTED PRN SC SEE LABEL COMMENTS 07/19/20 22:15 07/21/20 17:31 DC Glucagon (Glucagon) 1 mg ASDIRECTED PRN SC SEE LABEL COMMENTS 07/21/20 17:30 Glucose (Glucose) 16 GM ASDIRECTED PRN PO SEE LABEL COMMENTS 07/19/20 22:15 07/21/20 17:31 DC Glucose (Glucose) 16 GM ASDIRECTED PRN PO SEE LABEL COMMENTS 07/21/20 17:30 Home Med (Med Rec Complete!) ASDIRECTED XX 07/19/20 23:30 07/19/20 23:26 DC Hydralazine HCl (Apresoline) 25 mg BID PO 07/20/20 09:00 07/22/20 15:36 DC 07/22/20 09:05 Hydralazine HCl (Apresoline) 25 mg BID PO 07/22/20 21:00 07/23/20 08:19 Hydroxyzine HCl (Atarax) 10 mg TID PRN PO ANXIETY 07/20/20 01:15 Insulin Human Lispro (HumaLOG INSULIN) See Protocol Table AC SD 07/21/20 17:30 07/23/20 12:54 Insulin Human Lispro (HumaLOG INSULIN) See Protocol Table Q6H SD 07/20/20 00:00 07/20/20 00:31 DC Insulin Human Lispro (HumaLOG INSULIN) See Protocol Table Q6H SD 07/20/20 00:00 07/21/20 17:27 DC 07/21/20 17:13 Insulin Human Lispro (HumaLOG INSULIN) See Protocol Table QHS SD 07/21/20 21:00 Insulin Human Regular (HumuLIN R INSULIN) 30 units BID@0730,8890 SD 07/20/20 07:30 07/23/20 08:18 Isosorbide Dinitrate (Isordil) 20 mg TID PO 07/19/20 21:00 07/23/20 15:10 Lactated Ringer's 1,000 ml @ 75 mls/hr [id number] IV 07/21/20 12:45 07/21/20 13:45 DC Lactated Ringer's 1,000 ml @ 75 mls/hr [id number] IV 07/21/20 15:15 07/21/20 16:15 DC Magnesium Hydroxide (Milk Of Magnesia) 30 ml DAILY PRN PO CONSTIPATION 07/19/20 22:15 Miscellaneous (Unresolved Patient Own Med Order) SEE LABEL COMMENTS DAILY XX 07/20/20 09:00 07/20/20 08:42 DC Omeprazole (PriLOSEC) 40 mg DAILY PO 07/20/20 09:00 07/23/20 08:20 Ondansetron HCl (ZOFRAN INJection) 4 mg Q4HP PRN IV NAUSEA OR VOMITING 07/21/20 12:45 07/21/20 13:45 DC Ondansetron HCl (ZOFRAN INJection) 4 mg Q4HP PRN IV NAUSEA OR VOMITING 07/21/20 15:15 07/21/20 16:15 DC Oxycodone HCl (Roxicodone, Oxyir) 5 mg ASDIRECTED PRN PO PAIN LEVEL 1-4 07/21/20 12:45 07/21/20 13:45 DC Oxycodone HCl (Roxicodone, Oxyir) 5 mg ASDIRECTED PRN PO PAIN LEVEL 1-4 07/21/20 15:15 07/21/20 16:15 DC Oxycodone/ Acetaminophen (Percocet 5mg/ 325mg Tablet) 1 tab Q6HP PRN PO SEVERE PAIN (PS 8-10) 07/22/20 08:45 07/22/20 17:49 Patient Own Medication (Patient'S Own Med) trelegy ellipta 100-62.5... DAILY INH 07/20/20 09:00 07/20/20 08:41 DC Potassium Chloride (Micro-K Extencaps) 10 meq BID PO 07/19/20 21:00 07/22/20 08:16 DC 07/21/20 20:21 Rivaroxaban (Xarelto) 15 mg QHS PO 07/23/20 21:00 Ropinirole HCl (Requip) 2 mg BID PO 07/19/20 21:00 07/22/20 15:36 DC 07/22/20 09:13 Ropinirole HCl (Requip) 2 mg BID PO 07/22/20 21:00 07/23/20 08:20 Salmeterol Xinafoate/ Fluticasone (Advair Hfa 45-21 Mcg/Act) 2 puff RBID INH 07/20/20 08:00 07/23/20 07:49 Sertraline HCl (Zoloft) 100 mg QHS PO 07/19/20 21:00 07/22/20 15:34 DC 07/21/20 20:20 Sertraline HCl (Zoloft) 100 mg QHS PO 07/22/20 21:00 07/22/20 20:40 Sodium Chloride 1,000 ml @ 50 mls/hr Q20H IV 07/19/20 22:07 07/20/20 08:05 DC 07/19/20 22:59 Sodium Chloride 1,000 ml @ 250 mls/hr Q4H IV 07/19/20 20:30 07/20/20 01:35 DC 07/19/20 21:27 Spironolactone (Aldactone) 25 mg DAILY PO 07/20/20 09:00 07/22/20 08:16 DC 07/21/20 09:51 Tiotropium [place] (Spiriva Handihaler) 1 inhalation DAILY@08 INH 07/20/20 08:00 07/23/20 07:49 Torsemide (Demadex) 50 mg QPM@1700 PO 07/22/20 17:00 07/22/20 17:53 Torsemide (Demadex) 100 mg DAILY PO 07/23/20 09:00 07/23/20 08:20 Tramadol HCl (Ultram) 50 mg Q6HP PRN PO MODERATE PAIN (PS 5-7) 07/22/20 08:45 07/22/20 20:42 Vancomycin HCl 750 mg/IV Miscellaneous Supplies 1 each/ Dextrose 275 ml @ 275 mls/hr Q12H IV 07/19/20 22:15 07/19/20 22:17 DC Vancomycin HCl 750 mg/IV Miscellaneous Supplies 1 each/ Dextrose 275 ml @ 275 mls/hr Q24H IV 07/20/20 15:15 07/20/20 15:36 DC Vancomycin HCl 1000 mg/IV Miscellaneous Supplies 1 each/ Dextrose 270 ml @ 270 mls/hr Q24H IV 07/21/20 08:00 07/23/20 08:18 Allergies Coded Allergies: Penicillins (Verified Allergy, Mild, RASH/ITCHING, 06/22/20) Rosemarie Yuan MD Jul 23, 2020 16:29
[2020-07-23] MEDS: TORSEMIDE (DEMADEX) 50 MG PER 1/2 TAB PO SCH (17:45)
[2020-07-23] MEDS ORDERED: RIVAROXABAN 15 MG TAB (XARELTO) PO SCH (21:00)
[2020-07-23 22:00] VITALS: BP 172/62
[2020-07-23] MEDS: SERTRALINE 100 MG TAB PO SCH (22:06)
[2020-07-23] MEDS: ATORVASTATIN 20 MG TAB PO SCH (22:07)
[2020-07-23] MEDS: **hydrALAZINE** 50 MG TAB PO SCH (22:07)
[2020-07-23 22:30] VITALS: O2SAT 96
[2020-07-24 06:00] VITALS: BP 181/61
[2020-07-24] MEDS: TIOTROPIUM INHALER/CAPSULE (SPIRIVA) INH SCH (07:38)
[2020-07-24] MEDS: ADVAIR HFA 45/21MCG INHALER INH SCH (07:38)
[2020-07-24 07:44] LABS: ALBUMIN 2.7 GM/DL (3.2-5.2); BILIRUBIN,TOTAL 0.6 MG/DL (0.2-1.0); CALCIUM LEVEL 8.7 MG/DL (8.8-10.2); CREATININE FOR GFR 2.17 MG/DL (0.55-1.30); GLOMERULAR FILTRATION RATE 24.1 (>45); POTASSIUM SERUM 4.4 MEQ/L (3.5-5.1); TOTAL PROTEIN 5.8 GM/DL (6.4-8.2)
[2020-07-24 07:48] LABS: HEMATOCRIT 25.2 % (36.0-47.0); MEAN CORPUSCULAR HEMOGLOBIN 26.9 pg (27.0-33.0); MEAN CORPUSCULAR HGB CONC 31.7 g/dl (32.0-36.5); MEAN CORPUSCULAR VOLUME 84.8 fl (80.0-96.0); PLATELET COUNT, AUTOMATED 175 10^3/uL (150-450); RED BLOOD COUNT 2.97 10^6/uL (4.00-5.40); WHITE BLOOD COUNT 9.8 10^3/uL (4.0-10.0)
[2020-07-24] MEDS ORDERED: TRAM50TA2 PO (07:58)
[2020-07-24] MEDS ORDERED: ACET1TAB55 PO (07:58)
[2020-07-24] MEDS: VANCOMYCIN HCL 1,000 MG, VIAL MATE ADAPTER 1 EACH in D5W 250 ML IV SCH ×2 (08:00→09:20)
[2020-07-24] MEDS ORDERED: CLIN150C14 PO (08:03)
[2020-07-24] MEDS ORDERED: PROB1CAP10 PO (08:03)
[2020-07-24 09:00] VITALS: O2SAT 95
[2020-07-24] MEDS ORDERED: TORSEMIDE (DEMADEX) 50 MG PER 1/2 TAB PO SCH (09:00)
[2020-07-24] MEDS: HumaLOG INSULIN (NovoLOG) PER UNIT SC SCH ×2 (09:19→12:00)
[2020-07-24] MEDS: HumuLIN R (REGULAR) INSULIN (NovoLIN R) **100U/ML** PER UNIT SC SCH (09:21)
[2020-07-24 09:24] VITALS: BP 136/62
[2020-07-24] MEDS: rOPINIRole 2MG TAB PO SCH (09:24)
[2020-07-24] MEDS: CARVedilol 12.5 MG TAB PO SCH (09:24)
[2020-07-24] MEDS: OMEPRAZOLE 20 MG CAP PO SCH (09:25)
[2020-07-24] MEDS: FERROUS GLUCONATE 324 MG TAB PO SCH (09:25)
[2020-07-24] MEDS: CALCITRIOL 0.25 MCG CAP (S0169) PO SCH (09:25)
[2020-07-24] MEDS: CLOPIDOGREL 75 MG TAB PO SCH (09:25)
[2020-07-24] MEDS: ISOSORBIDE DIN. (ISORDIL) 20 MG TAB PO SCH (09:26)
[2020-07-24] MEDS: amLODIPine 10 MG TAB PO SCH (09:27)
[2020-07-24] MEDS: **hydrALAZINE** 50 MG TAB PO SCH (09:27)
--- NOTE | 2020-07-24 10:46 | RO ---
DATE OF OPERATION: 07/19/2020 PREOPERATIVE DIAGNOSIS: Right hallux osteomyelitis. POSTOPERATIVE DIAGNOSIS: Right hallux osteomyelitis. PROCEDURE: Right hallux amputation. ANESTHESIA: Monitored anesthesia care. PREOPERATIVE INJECTION: 10 cc of a one-to-one mixture of 1% lidocaine plain and 0.5% Marcaine plain. ESTIMATED BLOOD LOSS: Minimal. MATERIALS: 3-0 nylon. INJECTABLES: None. COMPLICATIONS: None. SPECIMEN: Right hallux. INDICATIONS: Oxana Clancy a 69-year-old female with a chronic wound to her right hallux. She has been admitted multiple times in the last month to [facility] due to this wound. Recent x-ray showed erosive changes to the distal phalanx and wound had necrotic tissue with probe to bone. Decision made of bringing her to the operating room for a toe amputation. The patient's side and site were identified and marked preoperatively. Consent was reviewed and obtained. All risks, complications, and alternatives to the procedure were explained to the patient in detail and all questions were answered. PROCEDURE: The patient was brought to the operating room and placed on the operating room table in the supine position. Monitored anesthesia care was delivered by the anesthesia team. Preoperative injection of 10 cc of a one-to-one mixture of 1% lidocaine plain and 0.5% Marcaine plain were injected to the right foot. The right foot was prepped and draped in normal sterile fashion. The tourniquet was applied but was not inflated during the procedure. An elliptical type incision was made around the hallux and carried through with a #15 blade, full thickness. The toe was disarticulated at the first metatarsal phalangeal joint. The proximal phalanx and metatarsal head appeared free of infection. Bone and toe were sent for pathology. Site was irrigated with normal saline and the incision was closed with 3-0 nylon. Sterile dressings were applied. The patient was brought to PACU with vital signs stable and neurovascular status intact. She will be readmitted to the floor for antibiotics. KOBE
--- NOTE | 2020-07-24 16:51 | DS.PDOC ---
Discharge Summary General Date of Admission Jul 19, 2020 at 22:07 Date of Discharge 07/24/20 Attending Physician: Rosemarie Yuan MD Discharge Summary HISTORY OF PRESENT ILLNESS: Pt is a 69 yr old F with extensive PMH below who presented with a chronic ulcer on her right large toe for several weeks; she was admitted to the hospital on Jul 05 for management of right hallus chronic non healing ulcer with dry gangrene. Based on the d/c summary written by the patient didn't have an acute infection; she was give levofloxacin and discharged home on Jul 07. on 07/19/20 her home RN was changing the dressings and noted that the toe was more red, and the ulcer was draining green fluid. The patient denies having f/c/n/v or any foot pain bc she has diabetic neuropathy. She was taken to the OR where Toe XR showed cortical abnormality at the base of distal phalanx of the big toe with soft tissue edema. Findings suspicious for osteomyelitis. She was admitted for further w/u and treatment of right large toe osteomyelitis. HOSPITAL COURSE: Dr. Cross (podiatry) was consulted and, with patient's consent, took patient to OR on 07/19/20 for amputation of right large toe. She was kept on IV vancomycin. Wound culture later grew MSSA. PT evaluated patient and found her to be stable for discharge with home services. Dr. Cross is to follow up with her o/p in several weeks, wound care services to be arranged through already existing home health. All other chronic issues remained stable. AT time of discharge on 07/24/20, patient had no acute complaints and denies fevers, chills, n/v/d. She will continue with PO clindamycin for 7 days. Note: Patient was sent home initially with normal insulin dosing; this was caught as incorrect and the correct insulin dosing was sent to pharmacy. I attempted to call number on file for Oxana but it was not connecting. I also called her daughter's number from PFS note and left message to call me back so I can get update about insulin med change to Oxana. I left my cell number so hopefully she will get in touch. Changed dose sent to the pharmacy. PAST MEDICAL/ SURGICAL HISTORY: Chronic HFpEF Chronic right hallux ulcer PAD COPD Severe pulmonary hypertension Morbid obesity BMI 40.2/ JEFFERY with nocturnal O2 use CKD 4 with secondary hyperparathyroidism Anemia of chronic disease Iron deficiency IDDM complicated by neuropathy Coronary artery disease/ CABG History of severe aortic stenosis requiring TAVR Moderate mitral stenosis Chronic A fib Hypertensive heart disease Depression/ Anxiety RLS GERD Appendectomy Back surgery Carpal tunnel surgery Hernia repair Hysterectomy Knee surgery SOCIAL HISTORY: no tobbacco, alcohol or drugs FAMILY HISTORY: Father - diabetes and heart failure Mother - diabetes, heart failure, and stroke ALLERGIES: Please see below. DISCHARGE MEDICATIONS: Please see below. PHYSICAL EXAMINATION: VS: Please see below GEN: obese / well developed/ NAD HEENT: lips acyanotic /mucus membranes moist and pink CVS: RRR/NMRG/ radial and dorsalis pedis pulses intact LUNGS: CTAB, no W/R/R ABDOMEN: Contour (obese) MSK/EXTREMITIES: NCAT INTEGUMENT: Right foot wrapped in dressing, no extending erythema or swelling from effected area. NEURO: CN 2-12 are grossly intact, AAOx3 PSYCH: Mood and affect appropriate LABORATORY DATA: Please see below IMAGING: Renal US: Unremarkable ultrasound Toe xray : Cortical abnormality at the base of distal phalanx of the big toe with soft tissue edema. 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 PLAN: #Chronic right hallux ulcer w possible right toe osteomyelitis -POD 3 right large toe amputation -WBC wnl, afebrile -Per PT: Patient demonstrates safe functional mobility during PT eval and can be DC home when medically cleared. -Wound Cx: staph aureus sensitive to clindamycin -BCx: NG -Pathology 07/21/20: Gangrenous necrosis, ulceration and acute inflammation with abscess formation. Acute osteomyelitis. -D/c with 7 days of PO clindamycin, probiotic x 14 days -Dr. Cross, podiatry to follow up after next week. -Wound care per podiatry #Chronic anemia likely multifactorial to chronic disease, CHELO -H/H stable at 8.0/25 -No s/s of bleeding, not noted that there was a lot of bleeding during amputation -Iron low -On iron supplement BID, consider venofer injection as o/p -F/u with PCP #HTN, resistant -Renal US: neg -C/w home medications -Requires close f/u with PCP #CKD4 likely 2/2 HTN and/or DM nephropathy. -Cr still at baseline -Encouraged Po hydration throughout day #Chronic HFpEF, not currently in exacerbation -C/w all home cardiac meds #IDDM complicated by neuropathy -C/w BID humulin at decreased dose -Can increase to home humulin dose when blood sugars further increase but would discuss with PCP prior #Chronic A fib -Stable -Xarelto #COPD -Stable on RA # PAD -Plavix ,statin #Coronary artery disease/ CABG -Stable -C/w statin, plavix #Depression/ Anxiety -C/w Sertraline #RLS -C/w Ropinirole # Morbid Obesity -complicates care -has co-existing DM and JEFFERY (but doesn't use PAP) -Pt can f/u PCP for STOP BANG questionnaire, hotel services supervisor consult & referral to Bariatric Surgeon #GERD -PPI #DVT Px - xarelto DISPOSITION: D/c home today with services TIME SPENT ON DISCHARGE: Greater than 30 minutes. Vital Signs/I&Os Vital Signs Date Time Temp Pulse Resp B/P (MAP) Pulse Ox O2 Delivery O2 Flow Rate FiO2 07/24/20 09:24 65 136/62 07/24/20 09:00 95 Nasal Cannula 2.0 07/24/20 06:00 98.9 17 07/21/20 12:24 97 I&O- Last 24 Hours up to 6 AM 07/24/20 06:00 Intake Total 2170 ml Output Total 0 ml Balance 2170 ml Laboratory Data Labs 24H Laboratory Tests 2 07/23/20 17:35: Bedside Glucose (Misc Panel) 236H 07/23/20 19:35: Bedside Glucose (Misc Panel) 206H 07/24/20 06:37: Nucleated Red Blood Cells % (auto) 0.0, Anion Gap 8, Glomerular Filtration Rate 24.1L, Calcium Level 8.7L, Total Bilirubin 0.6, Aspartate Amino Transf (AST/SGOT) 24, Alanine Aminotransferase (ALT/SGPT) 20, Alkaline Phosphatase 83, Total Protein 5.8L, Albumin 2.7L, Albumin/Globulin Ratio 0.9L 07/24/20 12:45: Bedside Glucose (Misc Panel) 142H CBC/BMP Laboratory Tests 07/24/20 06:37 FSBS Laboratory Tests Test 07/23/20 17:35 07/23/20 19:35 07/24/20 12:45 Range/Units Bedside Glucose (Misc Panel) 236 206 142 80-115 MG/DL Microbiology Microbiology 07/19/20 Blood Culture - Preliminary, Resulted No Growth after 72 hours. All specime... 07/19/20 Gram Stain - Final, Complete 07/19/20 Wound Culture - Final, Complete Staphylococcus Aureus 07/19/20 Blood Culture - Preliminary, Resulted No Growth after 72 hours. All specime... Discharge Medications Scheduled Amlodipine Besylate (Amlodipine Besylate) 10 Mg Tablet, 10 MG PO DAILY, (Reported) Calcitriol (Calcitriol) 0.25 Mcg Capsule, 0.25 MCG PO DAILY, (Reported) Carvedilol (Carvedilol) 25 Mg Tablet, 25 MG PO BID, (Reported) Cholecalciferol (Vitamin D3) (Vitamin D3) 125 Mcg Capsule, 5,000 UNITS PO QHS, (Reported) Clindamycin Hcl (Clindamycin HCl) 150 Mg Capsule, 150 MG PO QID Clopidogrel Bisulfate (Clopidogrel) 75 Mg Tablet, 75 MG PO DAILY, (Reported) Ferrous Gluconate (Ferrous Gluconate) 324 Mg Tablet, 324 MG PO BID, (Reported) Fluticasone/Umeclidin/Vilanter (Trelegy Ellipta 100-62.5-25) 1 Each Blst.w.dev, 1 PUFF INH DAILY, (Reported) Hydralazine HCl (Hydralazine HCl) 10 Mg Tablet, 25 MG PO BID, (Reported) Insulin (Humulin R U-500) 500 Unit/1 Ml Vial, 40 UNITS SC BID WITH BREAKFAST AND dinner Isosorbide Dinitrate (Isosorbide Dinitrate) 20 Mg Tablet, 20 MG PO TID, (Reported) Lactobacillus Acidophilus (Probiotic Acidophilus) 1.5 Mg Capsule, 1 CAP PO BIDWM Multivitamin (Tab-A-Kristine) 1 Each Tablet, 1 TAB PO QHS, (Reported) Omeprazole (Omeprazole) 40 Mg Cap, 40 MG PO DAILY, (Reported) Potassium Chloride (Potassium Chloride) 10 Meq Tab.er.prt, 10 MEQ PO BID, (Reported) Rivaroxaban (Xarelto) 15 Mg Tablet, 15 MG PO QHS, (Reported) Ropinirole HCl (Ropinirole HCl) 1 Mg Tab, 2 MG PO BID, (Reported) Sertraline HCl (Sertraline HCl) 50 Mg Tab, 100 MG PO QHS, (Reported) Spironolactone (Spironolactone) 25 Mg Tablet, 25 MG PO DAILY, (Reported) Torsemide (Torsemide) 100 Mg Tablet, 100 MG PO DAILY, (Reported) Torsemide (Torsemide) 100 Mg Tablet, 50 MG PO QPM, (Reported) TAKES AT 1700 Scheduled PRN Acetaminophen (Acetaminophen) 325 Mg Tablet, 650 MG PO Q8HP PRN for PAIN OR FEVER Hydroxyzine HCl (Hydroxyzine HCl) 10 Mg Tablet, 10 MG PO TID PRN for ANXIETY, (Reported) Tramadol HCl (Tramadol HCl) 50 Mg Tablet, 50 MG PO Q6HP PRN for MODERATE PAIN (PS 5-7) Allergies Coded Allergies: Penicillins (Verified Allergy, Mild, RASH/ITCHING, 06/22/20) Rosemarie Yuan MD Jul 24, 2020 16:51
[2020-07-24] MEDS ORDERED: INSUR50VL SC (17:00)
== END 2020-07-24 14:00 | disposition home health service (06) | DRG 617 ==
LOC: M ED 19:30 → M ED INP 22:07 → M MS5PR 07-20 01:33
PROVIDERS: ADMIT Internal Medicine; ATTEND Internal Medicine
PROC: 0Y6P0Z0 Detachment at Right 1st Toe, Complete, Open Approach (ICD-10-PCS; principal; 2020-07-19)
DX: E11.621 Type 2 diabetes mellitus with foot ulcer (principal); I50.22 Chronic systolic (congestive) heart failure; Z68.41 Body mass index [BMI] 40.0-44.9, adult; I13.0 Hypertensive heart and chronic kidney disease with heart failure and stage 1 through stage 4 chronic kidney disease, or unspecified chronic kidney disease; I48.20 Chronic atrial fibrillation, unspecified; M86.171 Other acute osteomyelitis, right ankle and foot; E11.52 Type 2 diabetes mellitus with diabetic peripheral angiopathy with gangrene; L97.514 Non-pressure chronic ulcer of other part of right foot with necrosis of bone; J44.9 Chronic obstructive pulmonary disease, unspecified; E66.01 Morbid (severe) obesity due to excess calories; N17.9 Acute kidney failure, unspecified; N18.4 Chronic kidney disease, stage 4 (severe); E11.22 Type 2 diabetes mellitus with diabetic chronic kidney disease; N25.81 Secondary hyperparathyroidism of renal origin; D63.1 Anemia in chronic kidney disease; I27.20 Pulmonary hypertension, unspecified; E11.40 Type 2 diabetes mellitus with diabetic neuropathy, unspecified; E11.69 Type 2 diabetes mellitus with other specified complication; I25.10 Atherosclerotic heart disease of native coronary artery without angina pectoris; I34.2 Nonrheumatic mitral (valve) stenosis; F32.9 Major depressive disorder, single episode, unspecified; F41.9 Anxiety disorder, unspecified; G25.81 Restless legs syndrome; Z90.49 Acquired absence of other specified parts of digestive tract; Z95.1 Presence of aortocoronary bypass graft; Z95.2 Presence of prosthetic heart valve; Z79.4 Long term (current) use of insulin; Z79.02 Long term (current) use of antithrombotics/antiplatelets; Z79.01 Long term (current) use of anticoagulants; Z79.899 Other long term (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 therapy; Z88.0 Allergy status to penicillin; Z89.421 Acquired absence of other right toe(s); Z20.828 Contact with and (suspected) exposure to other viral communicable diseases

== ENCOUNTER 2020-07-25 11:33 | Outpatient (CLI) | payer MEDICARE ==
[~2020-07-25] VITALS: Ht 160 cm; Wt 102.7 kg
[~2020-07-25 11:33] MED LIST changes: +ACET1TAB55 PO; +ALBUTEROL SULFATE 2.5 MG/0.5 ML INH NEB SOLN INH PRN; +CLIN150C14 PO; +EPINEPHrine INJ 1 MG/ML 1ML AMP IM PRN; +K-TA10TA2 PO; +POTA10TA17 PO; +PROB1CAP10 PO; +TREL1AER INH; +TREL1AER PO; +diphenhydrAMINE 50MG/ML VIAL (J1200) IV PRN; +methylPREDNISolone 125MG 2ML VIAL IV PRN
[2020-07-25] MEDS ORDERED: IRON SUCROSE 275 MG in NS 250 ML IV ONE (12:00)
[2020-07-25] MEDS ORDERED: IRON SUCROSE 25 MG in NS 25 ML IV ONE (12:00)
[2020-07-25] MEDS ORDERED: NS 1,000 ML IV SCH (12:00)
[2020-07-25 12:44] VITALS: BP 172/72
== END 2020-07-25 16:00 | disposition home or self-care (01) ==
LOC: M INFU 11:33
PROVIDERS: ATTEND Internal Medicine Nephrology
DX: N18.9 Chronic kidney disease, unspecified (principal); D63.1 Anemia in chronic kidney disease; Z88.0 Allergy status to penicillin
CPT/HCPCS: 96365; 96366; J1756

== ENCOUNTER 2020-09-10 05:28 | Inpatient (IN) | payer MEDICARE ==
[~2020-09-10] VITALS: Ht 154.9 cm; Wt 91.5 kg
[2020-09-10] VITALS (8 sets, daily range): BP systolic 120–186; BP diastolic 55–64
[~2020-09-10 05:28] MED LIST changes: -ALBUTEROL SULFATE 2.5 MG/0.5 ML INH NEB SOLN INH PRN; -CLIN150C14 PO; +CLIN150C15 PO; -EPINEPHrine INJ 1 MG/ML 1ML AMP IM PRN; +GABA-282 PO; -GABA-843 PO; -diphenhydrAMINE 50MG/ML VIAL (J1200) IV PRN; -methylPREDNISolone 125MG 2ML VIAL IV PRN
[2020-09-10] MEDS ORDERED: LASI20TA3 PO (05:52)
[2020-09-10] MEDS ORDERED: ANOR1AER PO (05:53)
[2020-09-10 07:55] LABS: BASO # 0.1 10^3/uL (0.0-0.2); BASO % 0.5 % (0.0-1.0); EOS # 0.1 10^3/uL (0.0-0.5); EOS % 1.2 % (0.0-3.0); HEMATOCRIT 30.8 % (36.0-47.0); HEMOGLOBIN 9.6 g/dl (12.0-15.5); LYMPH # 2.1 10^3/uL (1.5-5.0); LYMPH % 19.8 % (24.0-44.0); MEAN CORPUSCULAR HEMOGLOBIN 27.4 pg (27.0-33.0); MEAN CORPUSCULAR HGB CONC 31.2 g/dl (32.0-36.5); MEAN CORPUSCULAR VOLUME 87.7 fl (80.0-96.0); MONO # 0.9 10^3/uL (0.0-0.8); MONO % 8.6 % (0.0-5.0); NEUTROPHILS # 7.3 10^3/uL (1.5-8.5); NEUTROPHILS % 69.4 % (36.0-66.0); PLATELET COUNT, AUTOMATED 183 10^3/uL (150-450); RED BLOOD COUNT 3.51 10^6/uL (4.00-5.40); WHITE BLOOD COUNT 10.5 10^3/uL (4.0-10.0)
--- NOTE | 2020-09-10 08:18 | REP ---
INDICATION: 2nd toe actively bleeding, redness, concern for osteo COMPARISON: None. TECHNIQUE: AP, lateral, bilateral oblique views right foot. FINDINGS: Chronic postsurgical changes including elements of amputation along with underlying degenerative changes are appreciated. There is a soft tissue injury overlying the terminal tuft 2nd toe. The underlying osseous structures are intact and grossly normal/stable when compared with 07/19/2020. There is no evidence for acute fracture or dislocation. IMPRESSION: Soft tissue injury/laceration overlies 2nd toe. Underlying osseous structures are intact and unchanged compared to prior examination. <Electronically signed by Pireo Mast > 09/10/20 0853
--- NOTE | 2020-09-10 08:20 | REP ---
INDICATION: fall 1 week ago, ttp COMPARISON: None. TECHNIQUE: Frontal view of the chest with multiple views of the left hemithorax. FINDINGS: Frontal view of the chest demonstrates no acute cardiopulmonary process, contusion, effusion, or pneumothorax. Multiple views of the left hemithorax demonstrates no acute rib fracture/injury or pathology. IMPRESSION: Normal rib series. No evidence for rib fracture. <Electronically signed by Piero Mast > 09/10/20 0816
--- NOTE | 2020-09-10 08:21 | REP ---
INDICATION: fall 1 week ago, moy rom COMPARISON: None. TECHNIQUE: Internal rotation, external rotation, and Y view. FINDINGS: No acute fracture or dislocation. Degenerative changes in findings to suggest old Hill-Sachs deformity to the humeral head. IMPRESSION: Degenerative changes. No evidence for acute fracture or dislocation. 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 <Electronically signed by Piero Mast > 09/10/20 0841
[2020-09-10 08:24] LABS: INR 1.64; PROTHROMBIN TIME 19.7 SECONDS (12.5-14.3)
[2020-09-10 08:25] LABS: PARTIAL THROMBOPLASTIN TIME 47.2 SECONDS (24.2-38.5)
[2020-09-10 08:40] LABS: ERYTHROCYTE SEDIMENTATION RATE 94 mm/hr (0-30)
[2020-09-10] MEDS: FERROUS GLUCONATE 324 MG TAB PO SCH ×2 (09:00→20:42)
[2020-09-10] MEDS: CARVedilol 12.5 MG TAB PO SCH ×2 (09:00→20:45)
[2020-09-10] MEDS: rOPINIRole 1MG TAB PO SCH ×2 (09:00→20:44)
[2020-09-10] MEDS ORDERED: CLOPIDOGREL 75 MG TAB PO SCH (09:00)
[2020-09-10 09:43] LABS: BLOOD UREA NITROGEN 51 MG/DL (7-18); CHLORIDE LEVEL 104 MEQ/L (98-107); CREATININE FOR GFR 2.48 MG/DL (0.55-1.30); GLOMERULAR FILTRATION RATE 20.6 (>45); GLUCOSE, FASTING 117 MG/DL (70-100); POTASSIUM SERUM 4.4 MEQ/L (3.5-5.1); SODIUM LEVEL 139 MEQ/L (136-145)
[2020-09-10 09:44] LABS: ALBUMIN 3.4 GM/DL (3.2-5.2); ALT/SGPT 29 IU/L (0-32); BILIRUBIN,DIRECT < 0.1 MG/DL (0.0-0.2); BILIRUBIN,TOTAL 0.5 MG/DL (0.2-1.0); C REACTIVE PROTEIN QUANTITATIV 2.88 MG/DL (0.00-0.30); CALCIUM LEVEL 9.1 MG/DL (8.8-10.2); CARBON DIOXIDE LEVEL 27 mmol/L (20-29); TOTAL PROTEIN 6.8 GM/DL (6.4-8.2)
[2020-09-10] MEDS ORDERED: VANCOMYCIN HCL 1,750 MG in IV FLUID PLACE HOLDER 1 EA IV ONE (10:15)
[2020-09-10] MEDS ORDERED: VANCOMYCIN HCL 1,000 MG, VIAL MATE ADAPTER 1 EACH in D5W 250 ML IV ONE (10:30)
[2020-09-10] MEDS ORDERED: VANCOMYCIN HCL 750 MG, VIAL MATE ADAPTER 1 EACH in D5W 250 ML IV ONE (10:30)
[2020-09-10] MEDS ORDERED: APAP325T4 PO (11:22)
[2020-09-10] MEDS ORDERED: VITMTA PO (11:22)
[2020-09-10] MEDS ORDERED: TREL1AER PO (11:22)
[2020-09-10] MEDS ORDERED: INSUR50VL SC (11:22)
[2020-09-10] MEDS ORDERED: OFLO3OPSO OD (11:23)
[2020-09-10] MEDS ORDERED: hydrOXYzine 10 MG TAB PO PRN (12:30)
[2020-09-10] MEDS ORDERED: ACETAMINOPHEN TAB 650MG DOSE (2X325MG) PO PRN (12:30)
[2020-09-10] MEDS ORDERED: GLUCOSE 4GM CHEW TABLET PO PRN (12:45)
[2020-09-10] MEDS ORDERED: DEXTROSE 50% 50 ML SYRINGE IV PRN (12:45)
[2020-09-10] MEDS ORDERED: GLUCAGON INJ 1MG VIAL SC PRN (12:45)
--- NOTE | 2020-09-10 12:47 | HPEPDOC ---
[facility] Medical History & Physical Date of Admission Sep 10, 2020 Date of Service: Sep 10, 2020 Attending Physician: KHALIDA MORGAN MD History and Physical CHIEF COMPLAINT: Foot wound HISTORY OF PRESENT ILLNESS: 69-year-old female with past medical history of coronary artery disease status post CABG, aortic valve replacement, coronary stent placement, diabetes mellitus, CK 84, hypertension and severe peripheral vascular disease, status post multiple lower extremity interventions presents with right foot second toe infection. She was admitted 1 month ago with a similar issue regarding her first toe, underwent amputation of first toe. She reports injuring her right foot a couple of days ago and noticed swelling, pain and drainage in the second toe. She denies any systemic symptoms including fever, nausea, vomiting or diarrhea. She is otherwise at her baseline. 10 point review of system is negative except for above PAST MEDICAL HISTORY: 1. , Coronary artery disease. 2. Peripheral vascular disease. 3. . Diabetes mellitus. 4. Hypertension. 5. Chronic kidney disease stage IV PAST SURGICAL HISTORY: 1. CABG. 2. , Coronary stent placement. 3. Lower extremity angioplasty. 4. Mechanical valve replacement, bovine SOCIAL HISTORY: Denies smoking. Social alcohol use. Denies drug use FAMILY HISTORY: Positive for heart disease in both parents ALLERGIES: Please see below. HOME MEDICATIONS: Please see below. PHYSICAL EXAMINATION: VITAL SIGNS: Please see below. GENERAL: Obese HEENT: Normocephalic, atraumatic, moist mucous membranes NECK: Supple CARDIOVASCULAR EXAMINATION: S1, S2 RESPIRATORY EXAMINATION: Diminished in the bases, no wheezing ABDOMINAL EXAMINATION: Soft, nontender, nondistended, positive bowel sounds EXTREMITIES: Trace right lower extremity edema, right foot second toe with erythema, edema, open wound with serous drainage and tender to palpation SKIN: No rash NEUROLOGICAL EXAMINATION: Alert and oriented 3, no focal deficits PSYCHIATRIC EXAMINATION: Calm and cooperative LABORATORY DATA: See below. IMAGING: Foot x-ray negative for osteomyelitis MICROBIOLOGY: Please see below. ASSESSMENT: 69-year-old female with extensive past medical history of severe p eripheral vascular disease, status post toe amputation is admitted for infection of her second toe on the right foot. PLAN: 1. Foot infection Likely related to severe peripheral vascular disease and reduced blood flow, injured her toe a few days ago. Has had previous infection in the past resulting in amputation of the toe. Podiatry consulted, Dr. Cross will see the patient later today Vancomycin, MRI pending. Will continue Plavix and Xarelto for now as there is no plan to take the pa tient to the operating room at this time. 2. Diabetes mellitus Levemir 40 units twice a day Sliding scale insulin coverage with meals and at bedtime 3. Coronary artery disease. Status post CABG and coronary stent placement along with aortic valve replacement. Continue home meds 4. Chronic kidney disease stage IV. Renal function slightly above baseline, hold torsemide for today. 5. Hypertension. Continue home meds DVT prophylaxis on Xarelto GI prophylaxis: Home PPI Vital Signs Vital Signs Date Time Temp Pulse Resp B/P (MAP) Pulse Ox O2 Delivery O2 Flow Rate FiO2 09/10/20 05:36 98.7 62 18 149/67 (94) 99 Room Air Laboratory Data Labs 24H Laboratory Tests 2 09/10/20 07:41: Immature Granulocyte % (Auto) 0.5, Neutrophils (%) (Auto) 69.4H, Lymphocytes (%) (Auto) 19.8L, Monocytes (%) (Auto) 8.6H, Eosinophils (%) (Auto) 1.2, Basophils (%) (Auto) 0.5, Neutrophils # (Auto) 7.3, Lymphocytes # (Auto) 2.1, Monocytes # (Auto) 0.9H, Eosinophils # (Auto) 0.1, Basophils # (Auto) 0.1, Nucleated Red Blood Cells % (auto) 0.0, Erythrocyte Sedimentation Rate 94H, Prothrombin Time 1 9.7H, Prothromb Time International Ratio 1.64, Activated Partial Thromboplast Time 47.2H, Anion Gap 8, Glomerular Filtration Rate 20.6L, Lactic Acid Level 0.7, Calcium Level 9.1, Total Bilirubin 0.5, Direct Bilirubin < 0.1, Aspartate Amino Transf (AST/SGOT) 25, Alanine Aminotransferase (ALT/SGPT) 29, Alkaline Phosphatase 67, C-Reactive Protein, Quantitative 2.88H, Total Protein 6.8, Albumin 3.4, Albumin/Globulin Ratio 1.0L 09/10/20 10:56: Coronavirus (COVID-19)(PCR) NEGATIVE 09/10/20 11:56: Bedside Glucose (Misc Panel) 96 CBC/BMP Laboratory Tests 09/10/20 07:41 Microbiology Microbiology 09/10/20 Blood Culture, Received Pending 09/10/20 Blood Culture, Received Pending Home Medications Scheduled Amlodipine Besylate (Amlodipine Besylate) 10 Mg Tablet, 10 MG PO QHS Calcitriol (Calcitriol) 0.25 Mcg Capsule, 0.25 MCG PO QHS Carvedilol (Carvedilol) 25 Mg Tablet, 25 MG PO BID Cholecalciferol (Vitamin D3) (Vitamin D3) 125 Mcg Capsule, 5,000 UNITS PO QHS Clopidogrel Bisulfate (Clopidogrel) 75 Mg Tablet, 75 MG PO DAILY Ferrous Gluconate (Ferrous Gluconate) 324 Mg Tablet, 324 MG PO BID Fluticasone/Umeclidin/Vilanter (Trelegy Ellipta 100-62.5-25) 1 Each Blst.w.dev, 1 PUFF PO DAILY Insulin (Humulin R U-500) 500 Unit/1 Ml Vial, 40 UNITS SC BID WITH BREAKFAST AND DINNER Isosorbide Dinitrate (Isosorbide Dinitrate) 20 Mg Tablet, 20 MG PO TID Multivitamins (Thera M Plus Tablet) 1 Each Tablet, 1 TAB PO QHS Ofloxacin (Ofloxacin) 0.3% 5ML Drops, 1 DROP OD QID FOR 4 DAYS, STARTED 09/07/20 Omeprazole (Omeprazole) 40 Mg Cap, 40 MG PO DAILY Rivaroxaban (Xarelto) 15 Mg Tablet, 15 MG PO QHS Ropinirole HCl (Ropinirole HCl) 1 Mg Tab, 2 MG PO BID Sertraline HCl (Sertraline HCl) 50 Mg Tab, 100 MG PO QHS Torsemide (Torsemide) 100 Mg Tablet, 100 MG PO DAILY Torsemide (Torsemide) 100 Mg Tablet, 50 MG PO QPM TAKES AT 1700 Scheduled PRN Acetaminophen (Acetaminophen) 325 Mg Tablet, 650 MG PO Q8H PRN for PAIN Hydroxyzine HCl (Hydroxyzine HCl) 10 Mg Tablet, 10 MG PO TID PRN for ANXIETY Allergies Coded Allergies: Penicillins (Verified Allergy, Mild, RASH/ITCHING, 06/22/20) A-FIB/CHADSVASC A-FIB History Current/History of A-Fib/PAF?: No KHALIDA MORGAN MD Sep 10, 2020 12:47
[2020-09-10] MEDS: OFLOXACIN 0.3 % (OCUFLOX) OPTH SOL 5ML OD SCH ×3 (13:00→20:48)
[2020-09-10] MEDS ORDERED: BUPIVACAINE HCL 0.5% 10ML VIAL As Ordered ONE (15:28)
[2020-09-10] MEDS ORDERED: LIDOCAINE 1% MDV 20ML VIAL As Ordered ONE (15:28)
[2020-09-10] MEDS ORDERED: propofoL 200 MG/20 ML VIAL As Ordered ONE ×2 (15:35→16:02)
[2020-09-10] MEDS ORDERED: LIDOCAINE 2% 100MG/5ML SDV (FOR ANES.) As Ordered ONE (15:35)
[2020-09-10] MEDS ORDERED: MIDAZOLAM INJ 2MG/2ML VIAL (J2250 PER 1MG) As Ordered ONE (15:35)
[2020-09-10] MEDS ORDERED: fentaNYL 100 MCG/2 ML INJECTION (J3010) As Ordered ONE (15:35)
[2020-09-10] MEDS ORDERED: dexameTHASONE 4 MG/ML 1ML VIAL (J1100 PER 1MG) As Ordered ONE (15:36)
[2020-09-10] MEDS ORDERED: ONDANSETRON 4MG/2ML VIAL As Ordered ONE (15:36)
[2020-09-10] MEDS: OMEPRAZOLE 20 MG CAP PO SCH (17:30)
[2020-09-10] MEDS: ISOSORBIDE DIN. (ISORDIL) 20 MG TAB PO SCH ×2 (17:30→20:46)
[2020-09-10] MEDS: HumaLOG INSULIN (NovoLOG) PER UNIT SC SCH ×2 (17:31→20:47)
[2020-09-10] MEDS: MULTIVITAMINS/MINERALS THERAP 1 TAB PO SCH (20:43)
[2020-09-10] MEDS: amLODIPine 10 MG TAB PO SCH (20:44)
[2020-09-10] MEDS: CALCITRIOL 0.25 MCG CAP (S0169) PO SCH (20:46)
[2020-09-10] MEDS: SERTRALINE 100 MG TAB PO SCH (20:46)
[2020-09-10] MEDS: LEVEMIR (INSULIN DETEMIR) 1 UNITS/0.01ML SC SCH (20:47)
[2020-09-10] MEDS ORDERED: RIVAROXABAN 15 MG TAB (XARELTO) PO SCH (21:00)
[2020-09-11 02:00] VITALS: BP 146/73
[2020-09-11 05:58] LABS: HEMATOCRIT 26.7 % (36.0-47.0); HEMOGLOBIN 8.4 g/dl (12.0-15.5); MEAN CORPUSCULAR HEMOGLOBIN 27.3 pg (27.0-33.0); MEAN CORPUSCULAR HGB CONC 31.5 g/dl (32.0-36.5); MEAN CORPUSCULAR VOLUME 86.7 fl (80.0-96.0); PLATELET COUNT, AUTOMATED 173 10^3/uL (150-450); RED BLOOD COUNT 3.08 10^6/uL (4.00-5.40); WHITE BLOOD COUNT 8.4 10^3/uL (4.0-10.0)
[2020-09-11 06:00] VITALS: BP 150/73
[2020-09-11 06:26] LABS: ALBUMIN 2.8 GM/DL (3.2-5.2); BILIRUBIN,TOTAL 0.5 MG/DL (0.2-1.0); CALCIUM LEVEL 8.6 MG/DL (8.8-10.2); CREATININE FOR GFR 2.64 MG/DL (0.55-1.30); GLOMERULAR FILTRATION RATE 19.2 (>45); MAGNESIUM LEVEL 2.5 MG/DL (1.8-2.4); POTASSIUM SERUM 4.7 MEQ/L (3.5-5.1); TOTAL PROTEIN 5.9 GM/DL (6.4-8.2)
--- NOTE | 2020-09-11 07:12 | RO ---
OPERATIVE NOTE DATE OF OPERATION: 09/10/2020 SURGEON: Ramiro Cross DPM BILLIARD TABLE MECHANIC: None. PREOPERATIVE DIAGNOSIS: Right second toe osteomyelitis. POSTOPERATIVE DIAGNOSIS: Right second toe osteomyelitis. PROCEDURE: Right second toe amputation. ANESTHESIA: Monitored anesthesia care preop injection of 10 mL 1:1 mixture 1% Lidocaine plain and 0.5% Marcaine plain. ESTIMATED BLOOD LOSS: Minimal. MATERIALS: 3-0 nylon. INJECTABLES: None. COMPLICATIONS: None. SPECIMEN(S): Right second toe, as well as aerobic and anaerobic cultures. INDICATIONS FOR PROCEDURE: Oxana Clancy is a 69-year-old female who presented to [facility] with an infection to her right second toe. She was noted to have exposed bone and infection stemming from this toe. The decision was made to bring her to the operating room for amputation of this toe. The patient's side and site were identified and marked in the preoperative area. Consent was reviewed and obtained. Risks, complications, and alternatives to the procedure were explained to the patient in detail and all questions were answered. DESCRIPTION OF PROCEDURE: The patient was brought to the operating room and placed on the operating room table in the supine position. Monitored anesthesia care was delivered by the anesthesia team. A preop injection of 10 mL of 1:1 mixture of 1% Lidocaine plain and 0.5% Marcaine plain were injected into the right foot. The right foot was prepped and draped in the usual sterile fashion. Tourniquet was applied, but was not inflated during the procedure. Attention was paid to the second toe. Necrotic tissue and exposed bone were noted at the distal toe. Culture swabs were taken aerobic and anaerobic of the wound and the toe was disarticulated using #10 blade at the metatarsophalangeal joint. The site was irrigated with normal saline. The proximal margin of the toe appeared viable. Incision was repaired using 3-0 nylon. The toe was sent for specimen pathology. A sterile dressing was applied. The patient was brought to the PACU with vital signs stable and neurovascular status intact. She will be admitted to the floor for antibiotics.
[2020-09-11] MEDS: HumaLOG INSULIN (NovoLOG) PER UNIT SC SCH ×4 (08:14→21:04)
[2020-09-11] MEDS: OMEPRAZOLE 20 MG CAP PO SCH (08:14)
[2020-09-11] MEDS: FERROUS GLUCONATE 324 MG TAB PO SCH ×2 (08:14→21:03)
[2020-09-11] MEDS: rOPINIRole 1MG TAB PO SCH ×2 (08:14→21:03)
[2020-09-11] MEDS: OFLOXACIN 0.3 % (OCUFLOX) OPTH SOL 5ML OD SCH (08:15)
[2020-09-11] MEDS: ISOSORBIDE DIN. (ISORDIL) 20 MG TAB PO SCH ×3 (08:17→21:03)
[2020-09-11] MEDS: CARVedilol 12.5 MG TAB PO SCH ×2 (08:17→21:02)
[2020-09-11 10:00] VITALS: BP 152/71
--- NOTE | 2020-09-11 10:02 | CR ---
CONSULTATION DATE: 09/10/2020 REASON FOR CONSULTATION: Second toe infection. HISTORY OF PRESENT ILLNESS: Oxana Clancy is a patient known to myself who had previous history of gangrene of her right hallux for which she underwent amputation by myself. She presents today with second toe ulceration and infection. She is not sure how long it has been there but at least over a week. There is redness extending from the toe up to the foot and necrotic tissue at the tip of the toe. PAST MEDICAL HISTORY: Significant for coronary artery disease, peripheral arterial disease, diabetes, neuropathy, hypertension, chronic kidney disease. PAST SURGICAL HISTORY: Includes CABG, coronary stent placement, lower extremity angioplasty, mechanical valve placement, and right hallux amputation. SOCIAL HISTORY: Denies smoking. Social alcohol use. ALLERGIES: PENICILLINS. REVIEW OF SYSTEMS: She denies nausea or vomiting, fevers or chills. Vitals are reviewed. She has been afebrile. Labs are reviewed. White blood cell count is 10.5, ESR 94, CRP is 2.88 and creatinine is 2.48. LOWER EXTREMITY EXAMINATION: Pedal pulses are weakly palpable. There has been a hallux amputation on the right foot. The second toe has erythema to the entire digit. The distal toe has a necrotic ulcer with exposed necrotic bone. ASSESSMENT: A 69-year-old diabetic female with second toe osteomyelitis. PLAN: The patient to go to OR today for second toe amputation. She has been given empiric antibiotics. In the OR we will take cultures. She has been admitted to the hospitalist service.
[2020-09-11] MEDS: VANCOMYCIN HCL 1,000 MG, VIAL MATE ADAPTER 1 EACH in D5W 250 ML IV SCH (11:33)
[2020-09-11] MEDS: CLOPIDOGREL 75 MG TAB PO SCH (11:33)
--- NOTE | 2020-09-11 11:46 | IPN ---
PROGRESS NOTE DATE: 09/11/2020 SUBJECTIVE: Oxana is seen after undergoing amputation of her right second toe yesterday. Denies any significant pain. PHYSICAL EXAMINATION: VITAL SIGNS: Blood pressure 152/71, afebrile. LUNGS: Clear. HEART: Rhythm is regular. ABDOMEN: Soft, nontender. EXTREMITIES: No peripheral edema. Foot is dressed. LABORATORY DATA: White count is down to 8.4, hemoglobin 8.4, platelets 173,000. Sodium 137, potassium 4.7, BUN 53, creatinine 2.6. COVID test was negative. Cultures are pending. IMPRESSION: 1. Status post amputation of right second toe. She is on Vancomycin for this. Postop care per Dr. Cross. 2. Diabetes, she is on Detemir insulin with sliding scale for coverage. 3. Hypertension, continue amlodipine 10 mg q.h.s. and Isordil. 4. Bioprosthetic heart failure. She is on Xarelto as an outpatient which we will restart if okay with surgery. 5. Coronary artery disease, she has had a coronary stent placed. She is on Plavix as an outpatient. Will restart these if okay with surgery.
[2020-09-11 14:00] VITALS: BP 142/52
[2020-09-11] MEDS: RIVAROXABAN 15 MG TAB (XARELTO) PO SCH (16:58)
[2020-09-11 18:00] VITALS: BP 148/52
[2020-09-11] MEDS: CALCITRIOL 0.25 MCG CAP (S0169) PO SCH (21:01)
[2020-09-11] MEDS: amLODIPine 10 MG TAB PO SCH (21:03)
[2020-09-11] MEDS: SERTRALINE 100 MG TAB PO SCH (21:03)
[2020-09-11] MEDS: MULTIVITAMINS/MINERALS THERAP 1 TAB PO SCH (21:03)
[2020-09-11] MEDS: LEVEMIR (INSULIN DETEMIR) 1 UNITS/0.01ML SC SCH (21:05)
[2020-09-11 22:00] VITALS: BP 133/57
[2020-09-12 02:00] VITALS: BP 138/61
[2020-09-12] MEDS: OMEPRAZOLE 20 MG CAP PO SCH (05:20)
[2020-09-12 06:00] VITALS: BP 141/56
[2020-09-12 06:24] LABS: HEMATOCRIT 26.6 % (36.0-47.0); HEMOGLOBIN 8.4 g/dl (12.0-15.5); MEAN CORPUSCULAR HEMOGLOBIN 27.5 pg (27.0-33.0); MEAN CORPUSCULAR HGB CONC 31.6 g/dl (32.0-36.5); MEAN CORPUSCULAR VOLUME 87.2 fl (80.0-96.0); PLATELET COUNT, AUTOMATED 183 10^3/uL (150-450); RED BLOOD COUNT 3.05 10^6/uL (4.00-5.40); WHITE BLOOD COUNT 9.3 10^3/uL (4.0-10.0)
[2020-09-12 06:52] LABS: CALCIUM LEVEL 8.8 MG/DL (8.8-10.2); CREATININE FOR GFR 2.54 MG/DL (0.55-1.30); GLOMERULAR FILTRATION RATE 20.1 (>45); POTASSIUM SERUM 4.5 MEQ/L (3.5-5.1)
[2020-09-12] MEDS: HumaLOG INSULIN (NovoLOG) PER UNIT SC SCH ×4 (08:37→21:59)
[2020-09-12] MEDS: rOPINIRole 1MG TAB PO SCH ×2 (08:41→21:56)
[2020-09-12] MEDS: FERROUS GLUCONATE 324 MG TAB PO SCH ×2 (08:42→21:58)
[2020-09-12] MEDS: CARVedilol 12.5 MG TAB PO SCH ×2 (08:43→21:58)
[2020-09-12] MEDS: CLOPIDOGREL 75 MG TAB PO SCH (08:44)
[2020-09-12] MEDS: ISOSORBIDE DIN. (ISORDIL) 20 MG TAB PO SCH ×3 (08:44→22:01)
[2020-09-12] MEDS: VANCOMYCIN HCL 1,000 MG, VIAL MATE ADAPTER 1 EACH in D5W 250 ML IV SCH (12:16)
--- NOTE | 2020-09-12 13:24 | IPN ---
PROGRESS NOTE DATE: 09/12/2020 SUBJECTIVE: The patient was seen and examined. She denies overnight complaints. OBJECTIVE: Vital signs are reviewed. T-max 99.1. On lower extremity examination, the amputation site erythema is resolved and stitches are well-coapted. LABORATORY DATA: Reviewed. White blood cell count 9.3. OR culture results are pending. Pathology shows osteomyelitis with viable proximal resection margins. ASSESSMENT: A 69-year-old diabetic female status post right second toe amputation. PLAN: Patient most likely able to be discharged home tomorrow once OR cultures are available on oral antibiotics for two weeks. She should have follow-up with myself in the office.
[2020-09-12 14:00] VITALS: BP 148/68
[2020-09-12] MEDS: NYSTATIN 100,000 UNITS/GM TOPICAL PWD 15 GM TOP SCH ×2 (16:00→22:00)
[2020-09-12] MEDS: RIVAROXABAN 15 MG TAB (XARELTO) PO SCH (17:15)
[2020-09-12] MEDS: CALCITRIOL 0.25 MCG CAP (S0169) PO SCH (21:56)
[2020-09-12] MEDS: amLODIPine 10 MG TAB PO SCH (21:57)
[2020-09-12] MEDS: SERTRALINE 100 MG TAB PO SCH (21:57)
[2020-09-12] MEDS: MULTIVITAMINS/MINERALS THERAP 1 TAB PO SCH (21:58)
[2020-09-12] MEDS: LEVEMIR (INSULIN DETEMIR) 1 UNITS/0.01ML SC SCH (21:58)
[2020-09-12 22:00] VITALS: BP 158/83
--- NOTE | 2020-09-12 23:57 | IPNPDOC ---
Text Note Date of Service The patient was seen on 09/12/20. NOTE SUBJECTIVE: No complaints this morning. PHYSICAL EXAMINATION: VITAL SIGNS: Please see below. GENERAL: Obese HEENT: Normocephalic, atraumatic, moist mucous membranes NECK: Supple CARDIOVASCULAR EXAMINATION: S1, S2 regular, no rub or murmur or gallop RESPIRATORY EXAMINATION: Diminished in the bases, no wheezing ABDOMINAL EXAMINATION: Soft, nontender, nondistended, positive bowel sounds EXTREMITIES: bipedal edema 1+ right > left. Right foot in surgical dressing. SKIN: No rash NEUROLOGICAL EXAMINATION: Alert and oriented 3, no focal deficits PSYCHIATRIC EXAMINATION: Calm and cooperative LABORATORY DATA: See below. IMAGING: Foot x-ray negative for osteomyelitis MICROBIOLOGY: Please see below. ASSESSMENT: 69-year-old female with extensive past medical history of severe peripheral vascular disease, Dm, HTN, Neuropathy, COPD, Obesity status post right first toe amputation now admitted for infection of her second toe on the right foot. Right second toe osteomyelitis s/p amputation of the toe. Likely related to severe peripheral vascular disease and reduced blood flow, injured her toe a few days ago. Has had previous infection in the past resulting in amputation of the first toe in this foot. On Vancomycin awaiting OR cultures PAD Will continue Plavix and Xarelto Diabetes mellitus with neuropathy continue Levemir and lispro Coronary artery disease. Status post CABG and coronary stent placement along with aortic valve replacement. Continue home meds Chronic kidney disease stage IV. creatinine close to baseline calcitriol Hypertension/ LVH/Hypertensive heart disease Continue home meds coreg and amlodipine COPD/ Severe pulmonary HTN will replace home inhalers with hospital avilable inhalers HLD statin GERD PPI Aortic valve replaced status Diastolic CHF Euvolemic Other medical problems: H/o Morbid obesity BMI 40.2/ JEFFERY/ Severe pulmonary hypertensin untreated uses 2 liters oxygen at night Secondary hyperparathyroidism Anemia of chronic disease Iron deficiency History of aortic stenosis status post Transcatheter aortic valve replacement Moderate mitral stenosis Chronic A fib Depression/ Anxiety RLS GERD VS,Fishbone, I+O VS, Fishbone, I+O Laboratory Tests 09/12/20 05:53 Vital Signs Date Time Temp Pulse Resp B/P (MAP) Pulse Ox O2 Delivery O2 Flow Rate FiO2 09/12/20 22:01 151/83 09/12/20 21:58 57 09/12/20 14:00 97.2 18 95 Room Air 09/11/20 10:00 2.0 I&O- Last 24 Hours up to 6 AM 09/12/20 07:00 Intake Total 3270 ml Output Total 2425 ml Balance 845 ml JORDYN ALLEN MD Sep 12, 2020 23:54
[2020-09-13] MEDS: OMEPRAZOLE 20 MG CAP PO SCH (05:01)
[2020-09-13 06:00] VITALS: BP 151/85
[2020-09-13 06:09] LABS: BASO % 0.5 % (0.0-1.0); EOS # 0.2 10^3/uL (0.0-0.5); EOS % 2.5 % (0.0-3.0); HEMATOCRIT 26.4 % (36.0-47.0); HEMOGLOBIN 8.5 g/dl (12.0-15.5); LYMPH # 1.6 10^3/uL (1.5-5.0); LYMPH % 19.1 % (24.0-44.0); MEAN CORPUSCULAR HEMOGLOBIN 27.9 pg (27.0-33.0); MEAN CORPUSCULAR HGB CONC 32.2 g/dl (32.0-36.5); MEAN CORPUSCULAR VOLUME 86.6 fl (80.0-96.0); MONO # 0.5 10^3/uL (0.0-0.8); NEUTROPHILS # 5.9 10^3/uL (1.5-8.5); NEUTROPHILS % 70.9 % (36.0-66.0); PLATELET COUNT, AUTOMATED 177 10^3/uL (150-450); RED BLOOD COUNT 3.05 10^6/uL (4.00-5.40); WHITE BLOOD COUNT 8.3 10^3/uL (4.0-10.0)
[2020-09-13 06:30] LABS: CALCIUM LEVEL 8.7 MG/DL (8.8-10.2); CREATININE FOR GFR 2.23 MG/DL (0.55-1.30); GLOMERULAR FILTRATION RATE 23.3 (>45); POTASSIUM SERUM 4.4 MEQ/L (3.5-5.1)
[2020-09-13] MEDS: rOPINIRole 1MG TAB PO SCH (08:15)
[2020-09-13] MEDS: CLOPIDOGREL 75 MG TAB PO SCH (08:15)
[2020-09-13] MEDS: HumaLOG INSULIN (NovoLOG) PER UNIT SC SCH (08:16)
[2020-09-13] MEDS: FERROUS GLUCONATE 324 MG TAB PO SCH (08:16)
[2020-09-13 08:20] VITALS: BP 166/55
[2020-09-13] MEDS: CARVedilol 12.5 MG TAB PO SCH (08:20)
[2020-09-13] MEDS: ISOSORBIDE DIN. (ISORDIL) 20 MG TAB PO SCH (08:20)
[2020-09-13] MEDS: NYSTATIN 100,000 UNITS/GM TOPICAL PWD 15 GM TOP SCH (08:22)
[2020-09-13] MEDS ORDERED: LEVEMIR (INSULIN DETEMIR) 1 UNITS/0.01ML SC SCH (09:00)
[2020-09-13] MEDS ORDERED: CEFD1CAP8 PO (09:29)
[2020-09-13] MEDS ORDERED: LEVO250T12 PO (09:29)
--- NOTE | 2020-09-13 16:37 | DS.PDOC ---
Discharge Summary General Date of Admission Sep 10, 2020 at 12:30 Date of Discharge 09/13/20 Discharge Summary PROCEDURES PERFORMED DURING STAY: Right second toe amputation DISCHARGE DIAGNOSES: Right second toe osteomyelitis SECONDARY DIAGNOSIS: DM with neuropathy PAD CAD CKD stage 4 COPD with severe pulmonary hypertension H/o Morbid obesity BMI 40.2/ JEFFERY/ Severe pulmonary hypertensin untreated uses 2 liters oxygen at night HLD GERD Diastolic CHF Hypertension/ LVH/Hypertensive heart disease Secondary hyperparathyroidism Anemia of chronic disease Iron deficiency History of aortic stenosis status post Transcatheter aortic valve replacement Moderate mitral stenosis Chronic A fib Depression/ Anxiety RLS GERD COMPLICATIONS/CHIEF COMPLAINT: Cad, Diabetes Mellitus, Htn, Foot Infection, Pad. HOSPITAL COURSE: 69-year-old female with extensive past medical history of severe peripheral vascular disease, Dm, HTN, Neuropathy, COPD, Obesity status post right first toe amputation this time was admitted for right foot second toe infection. Right second toe osteomyelitis s/p amputation of the toe. Likely related to severe peripheral vascular disease and reduced blood flow, injured her toe a few days ago. Has had previous infection in the past resulting in amputation of the first toe in this foot. Wound culture from OR with multiple organisms: Strep anginosus, Strep mitis, Enteroccoccus faecalis Anaerobic culture negative discharged with 2 weeks of levofloxacin and cefdinir awaiting OR cultures PAD Will continue Plavix and Xarelto Diabetes mellitus with neuropathy continue Levemir and lispro Coronary artery disease. Status post CABG and coronary stent placement along with aortic valve replacement. Continue home meds Chronic kidney disease stage IV. creatinine close to baseline calcitriol Hypertension/ LVH/Hypertensive heart disease Continue home meds coreg and amlodipine COPD/ Severe pulmonary HTN will replace home inhalers with hospital avilable inhalers HLD statin GERD PPI Aortic valve replaced status Diastolic CHF Euvolemic DISCHARGE MEDICATIONS: Please see below. ALLERGIES: Please see below. PHYSICAL EXAMINATION ON DISCHARGE: VITAL SIGNS: Please see below. GENERAL: Obese HEENT: Normocephalic, atraumatic, moist mucous membranes NECK: Supple CARDIOVASCULAR EXAMINATION: S1, S2 regular, no rub or murmur or gallop RESPIRATORY EXAMINATION: Diminished in the bases, no wheezing ABDOMINAL EXAMINATION: Soft, nontender, nondistended, positive bowel sounds EXTREMITIES: bipedal edema 1+ right > left. Right foot in surgical dressing. SKIN: No rash NEUROLOGICAL EXAMINATION: Alert and oriented 3, no focal deficits PSYCHIATRIC EXAMINATION: Calm and cooperative LABORATORY DATA: Please see below. ACTIVITY: [As tolerated]. DIET: Carb consistent DISPOSITION: 01 Home, Self-Care. DISCHARGE INSTRUCTIONS: Dr Cross in 10days PMD in 1 week DISCHARGE CONDITION: [Stable]. TIME SPENT ON DISCHARGE: 35 minutes. Vital Signs/I&Os Vital Signs Date Time Temp Pulse Resp B/P (MAP) Pulse Ox O2 Delivery O2 Flow Rate FiO2 09/13/20 08:20 61 166/55 09/13/20 06:00 97.3 17 98 Room Air 09/11/20 10:00 2.0 I&O- Last 24 Hours up to 6 AM 09/13/20 07:00 Intake Total 1720 ml Output Total 1750 ml Balance -30 ml Laboratory Data Labs 24H Laboratory Tests 2 09/12/20 16:51: Bedside Glucose (Misc Panel) 288H 09/12/20 20:21: Bedside Glucose (Misc Panel) 306H 09/13/20 05:39: Immature Granulocyte % (Auto) 1.0, Neutrophils (%) (Auto) 70.9H, Lymphocytes (%) (Auto) 19.1L, Monocytes (%) (Auto) 6.0H, Eosinophils (%) (Auto) 2.5, Basophils (%) (Auto) 0.5, Neutrophils # (Auto) 5.9, Lymphocytes # (Auto) 1.6, Monocytes # (Auto) 0.5, Eosinophils # (Auto) 0.2, Basophils # (Auto) 0.0, Nucleated Red Blood Cells % (auto) 0.0, Anion Gap 5L, Glomerular Filtration Rate 23.3L, Calcium Level 8.7L 09/13/20 09:55: Vancomycin Level Trough 18.0 CBC/BMP Laboratory Tests 09/13/20 05:39 FSBS Laboratory Tests Test 09/12/20 16:51 09/12/20 20:21 Range/Units Bedside Glucose (Misc Panel) 288 306 80-115 MG/DL Microbiology Microbiology 09/10/20 Gram Stain - Final, Complete 09/10/20 Wound Culture - Final, Complete Enterococcus Faecalis Streptococcus Anginosus Grp Streptococcus Mitis 09/10/20 Anaerobic Culture - Final, Complete 09/10/20 Blood Culture - Preliminary, Resulted No Growth after 72 hours. All specime... 09/10/20 Blood Culture - Preliminary, Resulted No Growth after 72 hours. All specime... Discharge Medications Scheduled Amlodipine Besylate (Amlodipine Besylate) 10 Mg Tablet, 10 MG PO QHS, (Reported) Calcitriol (Calcitriol) 0.25 Mcg Capsule, 0.25 MCG PO QHS, (Reported) Carvedilol (Carvedilol) 25 Mg Tablet, 25 MG PO BID, (Reported) Cefdinir (Cefdinir) 300 Mg Capsule, 300 MG PO DAILY Cholecalciferol (Vitamin D3) (Vitamin D3) 125 Mcg Capsule, 5,000 UNITS PO QHS, (Reported) Clopidogrel Bisulfate (Clopidogrel) 75 Mg Tablet, 75 MG PO DAILY, (Reported) Ferrous Gluconate (Ferrous Gluconate) 324 Mg Tablet, 324 MG PO BID, (Reported) Fluticasone/Umeclidin/Vilanter (Trelegy Ellipta 100-62.5-25) 1 Each Blst.w.dev, 1 PUFF PO DAILY, (Reported) Insulin (Humulin R U-500) 500 Unit/1 Ml Vial, 40 UNITS SC BID, (Reported) WITH BREAKFAST AND DINNER Isosorbide Dinitrate (Isosorbide Dinitrate) 20 Mg Tablet, 20 MG PO TID, (Reported) Levofloxacin (Levofloxacin) 250 Mg Tablet, 250 MG PO Q48H Multivitamins (Thera M Plus Tablet) 1 Each Tablet, 1 TAB PO QHS, (Reported) Ofloxacin (Ofloxacin) 0.3% 5ML Drops, 1 DROP OD QID, (Reported) FOR 4 DAYS, STARTED 09/07/20 Omeprazole (Omeprazole) 40 Mg Cap, 40 MG PO DAILY, (Reported) Rivaroxaban (Xarelto) 15 Mg Tablet, 15 MG PO QHS, (Reported) Ropinirole HCl (Ropinirole HCl) 1 Mg Tab, 2 MG PO BID, (Reported) Sertraline HCl (Sertraline HCl) 50 Mg Tab, 100 MG PO QHS, (Reported) Torsemide (Torsemide) 100 Mg Tablet, 100 MG PO DAILY, (Reported) Torsemide (Torsemide) 100 Mg Tablet, 50 MG PO QPM, (Reported) TAKES AT 1700 Scheduled PRN Acetaminophen (Acetaminophen) 325 Mg Tablet, 650 MG PO Q8H PRN for PAIN, (Reported) Hydroxyzine HCl (Hydroxyzine HCl) 10 Mg Tablet, 10 MG PO TID PRN for ANXIETY, ( Reported) Allergies Coded Allergies: Penicillins (Verified Allergy, Mild, RASH/ITCHING, 06/22/20) JORDYN ALLEN MD Sep 13, 2020 16:37
== END 2020-09-13 11:29 | disposition home health service (06) | DRG 256 ==
LOC: M ED 05:28 → M ED INP 12:30 → M MSPAV 13:45
PROVIDERS: ADMIT Internal Medicine; ATTEND Internal Medicine Nephrology
PROC: 0Y6R0Z0 Detachment at Right 2nd Toe, Complete, Open Approach (ICD-10-PCS; principal; 2020-09-10 16:00)
DX: E11.51 Type 2 diabetes mellitus with diabetic peripheral angiopathy without gangrene (principal); N18.4 Chronic kidney disease, stage 4 (severe); M86.9 Osteomyelitis, unspecified; I13.0 Hypertensive heart and chronic kidney disease with heart failure and stage 1 through stage 4 chronic kidney disease, or unspecified chronic kidney disease; I50.32 Chronic diastolic (congestive) heart failure; Z68.41 Body mass index [BMI] 40.0-44.9, adult; I48.20 Chronic atrial fibrillation, unspecified; I25.10 Atherosclerotic heart disease of native coronary artery without angina pectoris; Z95.5 Presence of coronary angioplasty implant and graft; Z95.3 Presence of xenogenic heart valve; E11.22 Type 2 diabetes mellitus with diabetic chronic kidney disease; F41.9 Anxiety disorder, unspecified; G25.81 Restless legs syndrome; Z98.62 Peripheral vascular angioplasty status; Z79.01 Long term (current) use of anticoagulants; Z79.4 Long term (current) use of insulin; I27.20 Pulmonary hypertension, unspecified; Z79.899 Other long term (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 therapy; Z79.02 Long term (current) use of antithrombotics/antiplatelets; I34.2 Nonrheumatic mitral (valve) stenosis; Z88.0 Allergy status to penicillin; E11.69 Type 2 diabetes mellitus with other specified complication; Z89.411 Acquired absence of right great toe; Z20.822 Contact with and (suspected) exposure to COVID-19; E11.40 Type 2 diabetes mellitus with diabetic neuropathy, unspecified; E66.01 Morbid (severe) obesity due to excess calories; K21.9 Gastro-esophageal reflux disease without esophagitis; D63.1 Anemia in chronic kidney disease; F32.9 Major depressive disorder, single episode, unspecified; Z99.81 Dependence on supplemental oxygen

== ENCOUNTER → 2020-10-02 | Outpatient (REF) | payer MEDICARE ==
[~2020-10-02] MED LIST changes: +ANOR1AER PO; +APAP325T4 PO; +CEFD1CAP8 PO; +LEVO250T12 PO; +OFLO3OPSO OD; +VITMTA PO
[2020-10-02 18:32] LABS: PERCENT SATURATION 15.8 % (13.2-45.0)
== END ==
LOC: M LAB REF 16:46
PROVIDERS: ATTEND Internal Medicine Nephrology
DX: D50.9 Iron deficiency anemia, unspecified (principal)

== ENCOUNTER 2020-11-05 22:09 | Emergency (ER) | payer MEDICARE ==
[~2020-11-05] VITALS: Ht 154.9 cm; Wt 90.9 kg
[~2020-11-05 22:09] MED LIST changes: +ISOS1TAB35 PO; -ISOS30TA4 PO
[2020-11-05] MEDS ORDERED: PERCOCET 5MG/325MG TAB PO ONE (22:55)
--- NOTE | 2020-11-05 23:47 | REPVR ---
PROCEDURE INFORMATION: Exam: XR Left Humerus Exam date and time: 11/05/2020 11:26 PM Age: 69 years old Clinical indication: Pain; Upper arm; Left; Additional info: Left midshaft pain TECHNIQUE: Imaging protocol: XR Left humerus. Views: 2 or more views. COMPARISON: No relevant prior studies available. FINDINGS: Bones/joints: Minimal spurring of the lateral epicondyle. Irregularity of the acromioclavicular joint which may be posttraumatic or postsurgical. No humeral fracture or destructive lesion. Soft tissues: Normal. IMPRESSION: 1. Degenerative deformity at the acromioclavicular joint. 2. Negative left humerus. No fracture or destructive lesion. Electronically signed by: Louis Armenta On 11/05/2020 23:48:25 PM
--- NOTE | 2020-11-06 00:13 | REPVR ---
PROCEDURE INFORMATION: Exam: CT Chest Without Contrast; Diagnostic Exam date and time: 11/05/2020 11:36 PM Age: 69 years old Clinical indication: Chest pain; Additional info: Fall, left chest wall pain, low back pain TECHNIQUE: Imaging protocol: Diagnostic computed tomography of the chest without contrast. 3D rendering (Not supervised by radiologist): MIP and/or 3D reconstructed images were created by the technologist. Radiation optimization: All CT scans at this facility use at least one of these dose optimization techniques: automated exposure control; mA and/or kV adjustment per patient size (includes targeted exams where dose is matched to clinical indication); or iterative reconstruction. COMPARISON: CR Ribs uni W-PA CHEST ONLY 09/10/2020 7:55 AM FINDINGS: Lungs: Minimal left lung base fibro-atelectatic change. Pleural spaces: Unremarkable. No pneumothorax. No pleural effusion. Heart: Status post sternotomy and CABG. Coronary artery calcifications are present. Pulmonary arteries: The main pulmonary artery measures 31 mm. Aorta: The ascending thoracic aorta measures 33 mm. Lymph nodes: Unremarkable. No enlarged lymph nodes. Gallbladder and bile ducts: Small gallstones are layering in the gallbladder. Bones/joints: Old fracture of the left 10th rib adjacent to the costovertebral junction. No acute rib fractures. Soft tissues: Unremarkable. IMPRESSION: 1. Minimal left lung base fibro-atelectatic change. 2. Old fracture of the left 10th rib at the costovertebral junction posteriorly. 3. Cholelithiasis. 4. Otherwise negative CT chest. No acute rib fractures are seen. Electronically signed by: Louis Armenta On 11/06/2020 00:14:10 AM
--- NOTE | 2020-11-06 00:18 | REPVR ---
PROCEDURE INFORMATION: Exam: CT Lumbar Spine Without Contrast Exam date and time: 11/05/2020 11:36 PM Age: 69 years old Clinical indication: Low back pain; Additional info: Fall, left chest wall pain, low back pain TECHNIQUE: Imaging protocol: Computed tomography images of the lumbar spine without contrast. Radiation optimization: All CT scans at this facility use at least one of these dose optimization techniques: automated exposure control; mA and/or kV adjustment per patient size (includes targeted exams where dose is matched to clinical indication); or iterative reconstruction. COMPARISON: No relevant prior studies available. FINDINGS: Vertebrae: No acute fracture or compression. Status post laminectomies at L4 and L5. L1-L2: The disc is within normal limits with minimal facet arthropathy and no spinal or foraminal stenosis. L2-L3: Minimal diffuse bulge of the disc with minimal annular calcification. There is mild facet arthropathy with no spinal or foraminal stenosis. L3-L4: The disc is within normal limits for height with slight retrolisthesis and minimal diffuse bulge of the disc with near loss of posterior concavity. There is mild facet arthropathy, left greater than right with borderline bilateral neural foraminal stenosis. L4-L5: Mild interspace narrowing with mild broad-based posterior protrusion of the disc and slight anterolisthesis. There has been laminectomy. There is moderately prominent facet arthropathy with no spinal stenosis. There is borderline left neural foraminal stenosis and low normal size of the right. L5-S1: Minimal broad-based posterior protrusion of the disc with moderate facet arthropathy and no significant spinal stenosis. There is borderline right neural foraminal stenosis. Gallbladder and bile ducts: Small gallstones layering in the gallbladder. Vasculature: There is mild calcification of the abdominal aorta with extension into the iliac arteries. Soft tissues: Unremarkable. IMPRESSION: 1. Status post laminectomy at L4 and L5. 2. Multilevel degenerative changes with no significant spinal stenosis. There is multilevel borderline foraminal stenosis. 3. No acute fracture. 4. Cholelithiasis. Electronically signed by: Louis Aremnta On 11/06/2020 00:19:29 AM
[2020-11-06] MEDS ORDERED: OXYC1TAB23 PO (01:39)
[2020-11-06] MEDS ORDERED: POTA10CA32 PO (01:39)
[2020-11-06 02:03] VITALS: BP 199/80
== END 2020-11-06 02:16 | disposition home or self-care (01) ==
LOC: M ED 22:09
DX: T14.8XXA Other injury of unspecified body region, initial encounter (principal); W17.89XA Other fall from one level to another, initial encounter; Y92.89 Other specified places as the place of occurrence of the external cause; I12.9 Hypertensive chronic kidney disease with stage 1 through stage 4 chronic kidney disease, or unspecified chronic kidney disease; N18.4 Chronic kidney disease, stage 4 (severe); E11.9 Type 2 diabetes mellitus without complications; Z88.0 Allergy status to penicillin; Z79.899 Other long term (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 therapy; Z79.4 Long term (current) use of insulin; Z79.01 Long term (current) use of anticoagulants

== ENCOUNTER 2020-11-10 11:52 | Outpatient (CLI) | payer MEDICARE ==
[~2020-11-10] VITALS: Ht 154.9 cm; Wt 90.5 kg
[~2020-11-10 11:52] MED LIST changes: +ALBUTEROL SULFATE 2.5 MG/0.5 ML INH NEB SOLN INH PRN; +EPINEPHrine INJ 1 MG/ML 1ML AMP IM PRN; +OXYC1TAB23 PO; +POTA10CA32 PO; +diphenhydrAMINE 50MG/ML VIAL (J1200) IV PRN; +methylPREDNISolone 125MG 2ML VIAL IV PRN
[2020-11-10 12:00] VITALS: BP 170/74
[2020-11-10] MEDS ORDERED: IRON SUCROSE 25 MG in NS 25 ML IV ONE (12:00)
[2020-11-10 12:50] VITALS: BP 168/73
[2020-11-10] MEDS ORDERED: IRON SUCROSE 300 MG in NS 250 ML OVER 90 MIN. IV ONE (13:00)
[2020-11-10 13:40] VITALS: BP 163/67
[2020-11-10 14:40] VITALS: BP 172/70
[2020-11-10 16:30] VITALS: BP 158/66
[2020-11-10 17:00] VITALS: BP 148/78
== END 2020-11-10 17:00 | disposition home or self-care (01) ==
LOC: M INFU 11:52
PROVIDERS: ATTEND Internal Medicine Nephrology
DX: D50.9 Iron deficiency anemia, unspecified (principal); D63.1 Anemia in chronic kidney disease; Z88.0 Allergy status to penicillin
CPT/HCPCS: 96365; 96366; J1756

== ENCOUNTER → 2020-11-22 | Outpatient (CLI) | payer MEDICARE ==
[~2020-11-22] MED LIST changes: -ALBUTEROL SULFATE 2.5 MG/0.5 ML INH NEB SOLN INH PRN; -EPINEPHrine INJ 1 MG/ML 1ML AMP IM PRN; -diphenhydrAMINE 50MG/ML VIAL (J1200) IV PRN; -methylPREDNISolone 125MG 2ML VIAL IV PRN
--- NOTE | 2020-11-22 17:43 | REP ---
INDICATION: ACUTE PAIN DUE TO TRAUMA. COMPARISON: Comparison pelvic radiograph November 10, 2017.. TECHNIQUE: Three views. FINDINGS: AP, tube angle, and lateral views of the sacrum and coccyx demonstrate no evidence of sacral or coccygeal fracture or displacement. Presacral and retro sacral soft tissues are unremarkable. SI joints are intact. Sacral leodan ower lines are uninterrupted. No pelvic fracture is seen. IMPRESSION: Negative views of the sacrum and coccyx. <Electronically signed by Cisco Amador > 11/22/20 [id number]
== END ==
LOC: M RAD 15:16
PROVIDERS: ATTEND Internal Medicine
DX: G89.11 Acute pain due to trauma (principal); M54.5 Low back pain

== ENCOUNTER → 2020-12-12 | Outpatient (CLI) | payer MEDICARE ==
[~2020-12-12] MED LIST changes: +CYCL-707 PO; +FERR324T21 PO; -FERR325T16 PO; +OCUF0.25 OS
== END ==
LOC: M LABSMTC 10:22
PROVIDERS: ATTEND Anesthesiology
DX: Z01.818 Encounter for other preprocedural examination (principal); Z11.52 Encounter for screening for COVID-19

== ENCOUNTER 2020-12-15 06:23 | Day surgery (SDC) | payer MEDICARE ==
[~2020-12-15] VITALS: Ht 154.9 cm; Wt 88.0 kg
[2020-12-15] MEDS ORDERED: D5W/0.2% SODIUM CHLORIDE 1,000 ML IV ONE (07:00)
[2020-12-15] MEDS ORDERED: VANCOMYCIN HCL 1,000 MG, VIAL MATE ADAPTER 1 EACH in NS 250 ML IV ONE (07:00)
[2020-12-15] MEDS ORDERED: VANCOMYCIN 1000MG/20ML VIAL As Ordered ONE (07:00)
[2020-12-15] MEDS ORDERED: BUPIVACAINE/EPIN 0.5% 30 ML VIAL As Ordered ONE (07:05)
[2020-12-15] MEDS ORDERED: LIDOCAINE 1% SDV 30ML VIAL As Ordered ONE (07:05)
[2020-12-15] MEDS ORDERED: HEPARIN SOD (PORCINE) 5000UNITS/ML 1ML VIAL/SYRINGE As Ordered ONE (07:05)
[2020-12-15 07:41] LABS: CALCIUM LEVEL 9.7 MG/DL (8.8-10.2); CREATININE FOR GFR 2.72 MG/DL (0.55-1.30); GLOMERULAR FILTRATION RATE 18.6 (>45); POTASSIUM SERUM 3.8 MEQ/L (3.5-5.1)
[2020-12-15] MEDS ORDERED: LIDOCAINE 2% 100MG/5ML SDV (FOR ANES.) As Ordered ONE (08:02)
[2020-12-15] MEDS ORDERED: dexameTHASONE 4 MG/ML 1ML VIAL (J1100 PER 1MG) As Ordered ONE (08:02)
[2020-12-15] MEDS ORDERED: ONDANSETRON 4MG/2ML VIAL As Ordered ONE (08:02)
[2020-12-15] MEDS ORDERED: fentaNYL 100 MCG/2 ML INJECTION (J3010) As Ordered ONE ×2 (08:02→09:27)
[2020-12-15] MEDS ORDERED: propofoL 200 MG/20 ML VIAL As Ordered ONE (08:02)
[2020-12-15] MEDS ORDERED: MIDAZOLAM INJ 2MG/2ML VIAL (J2250 PER 1MG) As Ordered ONE (08:20)
[2020-12-15] MEDS: fentaNYL 100 MCG/2 ML INJECTION (J3010) IV PRN ×3 (09:28→09:44)
--- NOTE | 2020-12-15 09:28 | ROOPDOC ---
[facility] Report Of Operation Report of Operation DATE OF PROCEDURE: 12/15/20 PREPROCEDURE DIAGNOSES: Stage IV renal insufficiency with need for access for future dialysis POSTPROCEDURE DIAGNOSES: Same PROCEDURE: Left brachiocephalic AV fistula creation SURGEON: Rachell Mitchell MD ANESTHESIA: LMA anesthesia and local INDICATION FOR PROCEDURE: This is a very pleasant 69-year-old patient with stage IV renal deficiency requiring access for future dialysis. Risks benefits and alternatives to a left upper extremity brachiocephalic AV fistula creation were discussed with the patient and she is agreeable to proceed. We cannot hold her Plavix from a cardiology standpoint, so we discussed with the patient that there is a small increased risk of bleeding, but this should not be an issue. She has been extensively counseled and is agreeable to proceed. Informed consent was obtained. REPORT OF OPERATION: Patient was brought to the operating room in stable condition. Decision antibiotics were administered without complication. Her left upper extremity was prepped and draped in a sterile fashion. A timeout was pe rformed. Local anesthesia was administered to the skin and subcutaneous tissue 1 fingerbreadth distal to the antecubital crease transversely over the left forearm. Incision was made and carried down through the subcutaneous tissue with Bovie cautery. The cephalic vein was skeletonized proximally and distally. Distal branches were suture ligated and divided. The branch points at the end of the vein were connected to make a larger patch for anastomosis. We then sequentially past dilators through the vein, 3 mm, 3.5 mm, 4 mm without resistance. We flushed the vein with heparinized saline and a bulldog clamp was placed. We then dissected down to the brachial artery which was skeletonized proximally and distally. We place his lips around the brachial artery, the ulnar artery, the interosseous artery, and the radial artery. The vessels were secured. 5 mm arteriotomy was made on the radial artery proximal and the end of the vein was anastomosed to the side of the artery was 6-0 Prolene suture. Before the final sutures are placed, we flushed the inflow and outflow artery irrigated with heparinized saline. The final sutures are placed in flows or store through the vein and the inflow brachial artery. We then restored flow to the arm and hand. Good pulse was noted at the radial and ulnar arteries and the fingertips were warm and well perfused. There is a good thrill in the cephalic vein. Excellent flow was noted through the arterial and venous system on Doppler. We then irrigated with saline. The deep tissues were approximated with running 2-0 Vicryl suture. The deep dermal layer was approximated with interrupted 4-0 Vicryl sutures. The skin was closed with running subcuticular Monocryl suture. Incision was clean and dry. Mastisol and Steri-Strips were placed to lengthen the incision. Tegaderm and 4 x 4's were placed at the final dressing. The patient tolerated this well. She was then allowed to awaken from anesthesia and taken to recovery in stable condition. SPECIMENS: None. ESTIMATED BLOOD LOSS: Approximately 25 mL. COMPLICATIONS: None. PLAN: Follow-up 1 week to check incision. Okay to resume home diet and medications. Okay to resume Plavix and Xarelto. No strenuous exercise or lifting greater than 5 pounds for 1 week. Okay to remove Tegaderm and gauze after 24-48 hours, but the Steri-Strips intact over the incision for 1 week to help with healing. Okay to shower after 24 hours, and his incision gets wet pad dry. Use squeezable left hand to improve circulation and developed fistula. We appreciate the opportunity to participate in the care of this patient. RACHELL IMTCHELL MD Dec 15, 2020 09:28
[2020-12-15] MEDS ORDERED: oxyCODONE 5MG TAB PO PRN (09:30)
[2020-12-15] MEDS ORDERED: ONDANSETRON 4MG/2ML VIAL IV PRN (09:30)
[2020-12-15] MEDS ORDERED: LR 1,000 ML IV SCH (09:30)
[2020-12-15 13:15] VITALS: BP 141/69
== END 2020-12-15 14:24 | disposition home or self-care (01) ==
LOC: M SDC 06:23
PROVIDERS: ATTEND Surgery Vascular Surgery
DX: N18.4 Chronic kidney disease, stage 4 (severe) (principal); I13.10 Hypertensive heart and chronic kidney disease without heart failure, with stage 1 through stage 4 chronic kidney disease, or unspecified chronic kidney disease; I48.91 Unspecified atrial fibrillation; I25.10 Atherosclerotic heart disease of native coronary artery without angina pectoris; I73.9 Peripheral vascular disease, unspecified; J45.909 Unspecified asthma, uncomplicated; J44.9 Chronic obstructive pulmonary disease, unspecified; G47.33 Obstructive sleep apnea (adult) (pediatric); E10.22 Type 1 diabetes mellitus with diabetic chronic kidney disease; F32.9 Major depressive disorder, single episode, unspecified; R01.1 Cardiac murmur, unspecified; E78.5 Hyperlipidemia, unspecified; D50.9 Iron deficiency anemia, unspecified; E10.40 Type 1 diabetes mellitus with diabetic neuropathy, unspecified; Z79.899 Other long term (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 therapy; Z79.01 Long term (current) use of anticoagulants; Z79.02 Long term (current) use of antithrombotics/antiplatelets; Z88.0 Allergy status to penicillin; Z95.5 Presence of coronary angioplasty implant and graft; Z95.1 Presence of aortocoronary bypass graft
CPT/HCPCS: 36415; 36821; 80048; J1100; J1644; J2250; J2405; J3010; J3370

== ENCOUNTER 2021-01-14 07:33 | Emergency (ER) | payer MEDICARE ==
[~2021-01-14] VITALS: Ht 154.9 cm; Wt 90.0 kg
[~2021-01-14 07:33] MED LIST changes: +GABA-283 PO; -GABA-845 PO
[2021-01-14] MEDS ORDERED: COMBIVENT RESPIMAT 100-20MCG INHALER 4GM INH PRN (07:55)
--- NOTE | 2021-01-14 07:59 | ECGEPIP ---
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
--- NOTE | 2021-01-14 08:21 | REP ---
INDICATION: DYSPNEA/COUGH. COMPARISON: 06/24/2020. TECHNIQUE: Single portable AP view of the chest was performed. FINDINGS: There is mscn-dc-crheurhl cardiomegaly. There is vascular congestion. There is interstitial edema diffusely bilaterally. Multiple sternal wires are present. The mediastinal silhouette is unchanged. IMPRESSION: Cardiomegaly with vascular congestion and interstitial edema consistent with CHF. <Electronically signed by Miller Cook > 01/14/21 [id number]
[2021-01-14 08:25] LABS: BASO % 0.3 % (0.0-1.0); EOS % 0.1 % (0.0-3.0); HEMATOCRIT 28.9 % (36.0-47.0); HEMOGLOBIN 9.4 g/dl (12.0-15.5); LYMPH # 1.1 10^3/uL (1.5-5.0); LYMPH % 7.6 % (24.0-44.0); MEAN CORPUSCULAR HEMOGLOBIN 28.4 pg (27.0-33.0); MEAN CORPUSCULAR HGB CONC 32.5 g/dl (32.0-36.5); MEAN CORPUSCULAR VOLUME 87.3 fl (80.0-96.0); MONO # 0.8 10^3/uL (0.0-0.8); MONO % 5.8 % (2.0-8.0); NEUTROPHILS # 11.9 10^3/uL (1.5-8.5); NEUTROPHILS % 85.6 % (36.0-66.0); PLATELET COUNT, AUTOMATED 150 10^3/uL (150-450); RED BLOOD COUNT 3.31 10^6/uL (4.00-5.40); WHITE BLOOD COUNT 13.9 10^3/uL (4.0-10.0)
[2021-01-14 08:47] LABS: INR 1.17; PROTHROMBIN TIME 15.2 SECONDS (12.5-14.3)
[2021-01-14] MEDS ORDERED: FUROSEMIDE 100MG/10ML VIAL (J1940) IV ONE (09:00)
[2021-01-14] MEDS ORDERED: ISOSORBIDE DIN. (ISORDIL) 20 MG TAB PO ONE (09:00)
[2021-01-14 09:03] LABS: ALBUMIN 2.8 GM/DL (3.2-5.2); BILIRUBIN,DIRECT 0.1 MG/DL (0.0-0.2); BILIRUBIN,TOTAL 1.1 MG/DL (0.2-1.0); CALCIUM LEVEL 8.7 MG/DL (8.8-10.2); CREATININE FOR GFR 1.95 MG/DL (0.55-1.30); GLOMERULAR FILTRATION RATE 27.2 (>45); POTASSIUM SERUM 4.7 MEQ/L (3.5-5.1); THYROID STIMULATING HORMONE 2.12 uIU/ML (0.358-3.740); TOTAL PROTEIN 6.3 GM/DL (6.4-8.2)
[2021-01-14] MEDS ORDERED: CARVedilol 12.5 MG TAB PO ONE (09:05)
[2021-01-14] MEDS ORDERED: HumuLIN R (REGULAR) INSULIN (NovoLIN R) **100U/ML** PER UNIT IV ONE (09:05)
[2021-01-14] MEDS ORDERED: CLOPIDOGREL 75 MG TAB PO ONE (10:00)
[2021-01-14] MEDS ORDERED: ACETAMINOPHEN 325 MG TAB PO ONE (10:10)
[2021-01-14] MEDS ORDERED: rOPINIRole 2MG TAB PO ONE (10:10)
[2021-01-14 10:36] VITALS: BP 150/70
== END 2021-01-14 10:40 | disposition short-term general hospital (02) ==
LOC: M ED 07:33 → EDBD 07:33 → M ED 10:40
DX: E11.65 Type 2 diabetes mellitus with hyperglycemia (principal); I21.4 Non-ST elevation (NSTEMI) myocardial infarction; I11.0 Hypertensive heart disease with heart failure; I48.91 Unspecified atrial fibrillation; J44.9 Chronic obstructive pulmonary disease, unspecified; E78.5 Hyperlipidemia, unspecified; G47.33 Obstructive sleep apnea (adult) (pediatric); Z95.5 Presence of coronary angioplasty implant and graft; Z88.0 Allergy status to penicillin; Z79.01 Long term (current) use of anticoagulants; Z79.899 Other long term (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 therapy; Z79.4 Long term (current) use of insulin
CPT/HCPCS: 36415; 36600; 71045; 80047; 80048; 80076; 82803; 83605; 83880; 84443; 84484; 85025; 85610; 87040; 87798; 93005; 93041; 94640; 94760; 96374; 99285; J1940

== ENCOUNTER 2021-02-06 22:28 | Observation (INO) | payer MEDICARE ==
[~2021-02-06] VITALS: Ht 154.9 cm; Wt 83.5 kg
[2021-02-06] MEDS ORDERED: GI COCKTAIL 50ML BTL(HYOSCYAMINE/MAALOX/LIDOCAINE VISCOUS)(1:3:1) PO ONE (22:45)
[2021-02-06 23:05] LABS: BASO % 0.5 % (0.0-1.0); EOS # 0.2 10^3/uL (0.0-0.5); EOS % 2.1 % (0.0-3.0); HEMATOCRIT 32.2 % (36.0-47.0); HEMOGLOBIN 10.9 g/dl (12.0-15.5); LYMPH # 1.9 10^3/uL (1.5-5.0); MEAN CORPUSCULAR HEMOGLOBIN 27.8 pg (27.0-33.0); MEAN CORPUSCULAR HGB CONC 33.9 g/dl (32.0-36.5); MEAN CORPUSCULAR VOLUME 82.1 fl (80.0-96.0); MONO # 0.6 10^3/uL (0.0-0.8); MONO % 7.8 % (2.0-8.0); NEUTROPHILS # 5.3 10^3/uL (1.5-8.5); NEUTROPHILS % 66.2 % (36.0-66.0); PLATELET COUNT, AUTOMATED 150 10^3/uL (150-450); RED BLOOD COUNT 3.92 10^6/uL (4.00-5.40); WHITE BLOOD COUNT 8.1 10^3/uL (4.0-10.0)
--- NOTE | 2021-02-06 23:40 | REPVR ---
PROCEDURE INFORMATION: Exam: XR Chest Exam date and time: 02/06/2021 11:05 PM Age: 70 years old Clinical indication: Pain; Other: Chest; Additional info: Chest pain TECHNIQUE: Imaging protocol: XR of the chest. Views: 1 view. COMPARISON: IA PORTABLE CHEST X-RAY 01/14/2021 8:01 AM FINDINGS: Lungs: No focal infiltrates. There are decreased perihilar infiltrates since the prior study. Pleural spaces: Unremarkable. No pleural effusion. No pneumothorax. Heart/Mediastinum: Top-normal heart size considering AP and lordotic projection. Status post aortic valve replacement. Bones/joints: Status post sternotomy. IMPRESSION: 1. Status post sternotomy and aortic valve replacement. 2. Otherwise negative chest. There is resolution of congestive failure since 01/14/2021. Electronically signed by: Louis Armenta On 02/06/2021 23:40:12 PM
[2021-02-06 23:55] LABS: ALBUMIN 3.5 GM/DL (3.2-5.2); BILIRUBIN,DIRECT 0.2 MG/DL (0.0-0.2); BILIRUBIN,TOTAL 0.8 MG/DL (0.2-1.0); CALCIUM LEVEL 9.5 MG/DL (8.8-10.2); CK-MB VALUE MASS 1.3 NG/ML (<3.6); CREATININE FOR GFR 3.74 MG/DL (0.55-1.30); FREE T4 0.93 NG/DL (0.76-1.46); GLOMERULAR FILTRATION RATE 12.8 (>45); MB/CK RELATIVE INDEX 1.37 (< OR =4); POTASSIUM SERUM 2.6 MEQ/L (3.5-5.1); THYROID STIMULATING HORMONE 2.35 uIU/ML (0.358-3.740); TOTAL PROTEIN 6.9 GM/DL (6.4-8.2); TROPONIN I 0.05 NG/ML (< 0.10)
[2021-02-07 00:36] VITALS: BP 170/121
[2021-02-07] MEDS: METOPROLOL 5 MG/5 ML VIAL IV SCH ×3 (00:36→01:44)
[2021-02-07] MEDS ORDERED: NS 500 ML IV ONE (01:30)
[2021-02-07 01:54] LABS: MAGNESIUM LEVEL 2.4 MG/DL (1.8-2.4)
[2021-02-07] MEDS ORDERED: POTASSIUM CHLORIDE 10 MEQ SR TABLET PO ONE (02:00)
[2021-02-07] MEDS ORDERED: MAALOX 30 ML SUSP *UDC PO PRN (02:45)
[2021-02-07] MEDS ORDERED: KCL 40MEQ in NS 1000ML 1,000 ML IV SCH (02:45)
[2021-02-07] MEDS ORDERED: ACETAMINOPHEN TAB 650MG DOSE (2X325MG) PO PRN (02:45)
[2021-02-07] MEDS ORDERED: GLUCAGON INJ 1MG VIAL SC PRN (02:45)
[2021-02-07] MEDS ORDERED: DEXTROSE 50% 50 ML SYRINGE IV PRN (02:45)
[2021-02-07] MEDS ORDERED: GLUCOSE 4GM CHEW TABLET PO PRN (02:45)
[2021-02-07] MEDS ORDERED: MOM 30ML SUSPENSION UDC PO PRN (02:45)
[2021-02-07 02:51] LABS: RSV AMPLIFICATION NEGATIVE (NEGATIVE)
--- NOTE | 2021-02-07 02:51 | HPEPDOC ---
[facility] Medical History & Physical Date of Admission Feb 07, 2021 Date of Service: Feb 07, 2021 Attending Physician: JACKLYN LYNN MD History and Physical CHIEF COMPLAINT: [70 y/o female c/o chest pain x1 day] HISTORY OF PRESENT ILLNESS: [This is a 70 y/o female with a pmh of CAD s/p CABG, hld, a-fib, copd, ckd4, DM1, jeffery, htn, aortic valve replacement, hypothyroidism who presents to the ED late at night on 02/06 with a cc of chest pain that began earlier that evening. Patient states that she was sitting on the couch when suddenly she began to experience chest pain. Patient denies precipitating events such as exercise, illness. Patient states that she believed at first that the pain was indigestion, so she made herself food, however this did not relieve the pain so she reported to the emergency department. Patient describes the pain as substernal, non-radiating pain. Patient states that it did not feel very similar to any of her prior cardiac events. Patient states that as of my exam, the pain has resolved. Patient was recently discharged from [facility] for a CHF exacerbation, and states that her sob still has not fully improved. Patient states that she is still very fatigued and gets winded easily upon exertion. Patient states that she does not feel she is even able to sit and visit with family or friends because she gets tired so easily. Patient also admits to cough productive of white sputum. Patient denies fever, chills, wheezing, sob at rest, back pain, dysuria, n/v/d/c, abd pain. Patient found to be in a-fib with RVR upon presentation to the ED with rates in the 130s. Of note, patient also had a K of 2.6, and a cr of 3.74 from her baseline of around 2.5.] PAST MEDICAL HISTORY: 1. [See HPI PAST SURGICAL HISTORY: 1. [CABG]. 2. [Porcine aortic valve replacement]. 3. [Lumbar laminectomy 4. Right leg revascularization 5. Appendectomy 6. Unspec. hernia repair 7. B/l carpal tunnel repairs 8. Unspec. left knee surgery 9. Right 1st toe amputation]. SOCIAL HISTORY: Tobacco use:[Denies] ETOH: [Denies] Illicit drug use: [Denies] FAMILY HISTORY: Reviewed - none pertinent ALLERGIES: Please see below. REVIEW OF SYSTEMS: CONSTITUTIONAL: [See HPI]. HEENT: [Denies uri sx]. CARDIOVASCULAR: [See HPI]. RESPIRATORY: [See HPI]. GASTROINTESTINAL: [See HPI]. GENITOURINARY: [Denies dysuria]. SKIN: [Denies rash]. MUSCULOSKELETAL: [Denies acute joint/back pain]. NEUROLOGICAL: [See HPI]. ENDOCRINE: [DM1]. HEMATOLOGIC/LYMPHATIC: [Denies easy bruising]. HOME MEDICATIONS: Please see below. PHYSICAL EXAMINATION: VITAL SIGNS: Please see below GENERAL APPEARANCE: [This is a fatigued appearing 70 y/o female. She is sleeping in bed upon my entry of the room, but was easily arousable.]. HEENT: [No mass or lesion. EOMI. No scleral icterus. Nares patent. Oral mucosa dry without erythema.]. CARDIOVASCULAR: [Tachy rate, irregularly irregular rhythm. No murmurs, rubs, gallops]. LUNGS: [Good air flow b/l. No wheezing, rales, rhonchi.]. ABDOMEN: [Soft, nontender]. MUSCULOSKELETAL: [No joint deformity]. EXTREMITIES: [Trace edema to right lower extremity. No overlying skin changes. Pulses intact.]. NEUROLOGICAL: [Speech clear. A+Ox3. No focal deficits.]. PSYCHIATRIC: [Mood and affect appear appropriate]. LABORATORY DATA: See below. IMAGING: [CXR: FINDINGS: Lungs: No focal infiltrates. There are decreased perihilar infiltrates since the prior study. Pleural spaces: Unremarkable. No pleural effusion. No pneumothorax. Heart/Mediastinum: Top-normal heart size considering AP and lordotic projection. Status post aortic valve replacement. Bones/joints: Status post sternotomy. IMPRESSION: 1. Status post sternotomy and aortic valve replacement. 2. Otherwise negative chest. There is resolution of congestive failure since 01/14/2021. ] MICROBIOLOGY: Please see below. ASSESSMENT: [This is a 70 y/o female with a pmh of CAD s/p CABG, hld, a-fib, copd, ckd4, DM1, jeffery, htn, aortic valve replacement, hypothyroidism who presents to the ED late at night on 02/06 with a cc of chest pain that began earlier that evening. Patient found to be in rapid a-fib in the ED. Patient also noted to have hypokalemia and everton on lab work in the ED.]. . PLAN: 1. [A-fib with RVR - Patient has chronic a-fib, is on carvedilol and xarelto at home. will continue these meds - patient given 3 doses of 5mg lopressor iv which lowered her hr below 110 - Patient likely entered rvr acutely d/t hypokalemia - Will admit to pcu on tele and monitor heart rate for need for further rate control medication 2. Hypokalemia - Potentially secondary to dehydration - Patient given 500mL saline bolus, 40 meQ oral K in the ED - will repeat oral dose of k in the morning - will trend bmp q8h for now - Will monitor fluid volume closely - pt on tele 3. EVERTON on CKD4 - patients cr is 3.7 from baseline of around 2.5 - most likely secondary to dehydration. patient admits to recent poor oral intake - patient received fluid bolus in ed - renal us, urine electrolytes ordered - holding at home diuretics for now 4. CHF - Patient's bnp acutely elevated at over 3000 in the ED, however patient no fluid overloaded on exam, has negative cxr - Will continue carvedilol, isosorbide - holding nifedipine 5. CAD s/p CABG - continue plavix, asa 6. HLD - continue lipitor 7. HTN - continue amlodipine 8. Type 1 DM - continue at home basal dose - sliding scale insulin, hypoglycemic protocol 9. COPD - patient wears 2L o2 qhs at home, will continue - continue at home inhalers 10. JEFFERY - patient does not wear cpap at home 11. Restless legs syndrome - continue ropinirole 12. Depression/anxiety - continue sertraline, atarax 13. GERD - continue omeprazole DVT prophylaxis - pt on xarelto PATIENT WISHES TO BE DNR/DNI]. Vital Signs Vital Signs Date Time Temp Pulse Resp B/P (MAP) Pulse Ox O2 Delivery O2 Flow Rate FiO2 02/07/21 02:05 108 99 02/07/21 02:00 159/78 (105) 02/06/21 22:50 Room Air 02/06/21 22:41 98.6 22 Laboratory Data Labs 24H Laboratory Tests 2 02/06/21 22:57: Immature Granulocyte % (Auto) 0.4, Neutrophils (%) (Auto) 66.2H, Lymphocytes (%) (Auto) 23.0L, Monocytes (%) (Auto) 7.8, Eosinophils (%) (Auto) 2.1, Basophils (%) (Auto) 0.5, Neutrophils # (Auto) 5.3, Lymphocytes # (Auto) 1.9, Monocytes # (Auto) 0.6, Eosinophils # (Auto) 0.2, Basophils # (Auto) 0.0, Nucleated Red Blood Cells % (auto) 0.0, Anion Gap 10, Glomerular Filtration Rate 12.8L, Calcium Level 9.5, Magnesium Level 2.4, Total Bilirubin 0.8, Direct Bilirubin 0.2, Aspartate Amino Transf (AST/SGOT) 22, Alanine Aminotransferase (ALT/SGPT) 34, Alkaline Phosphatase 95, Total Creatine Kinase 95, Creatine Kinase MB 1.3, Creatine Kinase MB Relative Index 1.37, Troponin I 0.05, ZI-Sgh-T-Type Natriuretic Peptide 3746H, Total Protein 6.9, Albumin 3.5, Albumin/Globulin R atio 1.0L, Lipase 91, Thyroid Stimulating Hormone (TSH) 2.350, Free Thyroxine 0.93 02/07/21 01:37: Coronavirus (COVID-19)(PCR) NEGATIVE, Influenza Type A (RT-PCR) NEGATIVE, Influenza Type B (RT-PCR) NEGATIVE, Respiratory Syncytial Virus (PCR) NEGATIVE CBC/BMP Laboratory Tests 02/06/21 22:57 Home Medications Scheduled Amlodipine Besylate (Amlodipine Besylate) 10 Mg Tablet, 10 MG PO QHS Ammonium Lactate (Ammonium Lactate) 12% Cream..g., 1 DOSE TOP QHS APPLY TO FEET AFTER SHOWER Atorvastatin Calcium (Atorvastatin Calcium) 40 Mg Tablet, 40 MG PO QHS Calcitriol (Calcitriol) 0.25 Mcg Capsule, 0.25 MCG PO QHS Carvedilol (Carvedilol) 25 Mg Tablet, 25 MG PO BID Cholecalciferol (Vitamin D3) (Vitamin D3) 125 Mcg Capsule, 5,000 UNITS PO QHS Clopidogrel Bisulfate (Clopidogrel) 75 Mg Tablet, 75 MG PO DAILY Ferrous Gluconate (Ferrous Gluconate) 324 Mg Tablet, 324 MG PO BID Fluticasone/Umeclidin/Vilanter (Trelegy Ellipta 100-62.5-25) 1 Each Blst.w.dev, 1 PUFF PO DAILY Insulin Glargine (Lantus) 100 Unit/1 Ml Vial, 44 UNIT INJ QHS Insulin Human Lispro (Humalog) 100 Unit/1 Ml Vial, 1 DOSE SC AC PER SLIDING SCALE Isosorbide Dinitrate (Isosorbide Dinitrate) 20 Mg Tablet, 20 MG PO TID Multivitamins (Thera M Plus Tablet) 1 Each Tablet, 1 TAB PO QHS Nifedipine (Nifedipine ER) 60 Mg Tab.er.24, 60 MG PO DAILY Omeprazole (Omeprazole) 40 Mg Cap, 40 MG PO DAILY Potassium Chloride (Potassium Chloride) 10 Meq Tab.er.prt, 10 MEQ PO DAILY Rivaroxaban (Xarelto) 15 Mg Tablet, 15 MG PO QHS Ropinirole HCl (Ropinirole HCl) 1 Mg Tab, 2 MG PO BID Sertraline HCl (Sertraline HCl) 50 Mg Tab, 100 MG PO QHS Torsemide (Torsemide) 100 Mg Tablet, 100 MG PO BID Scheduled PRN Acetaminophen (Tylenol Extra Strength) 500 Mg Tablet, 1,000 MG PO Q6H PRN for PAIN Cyclobenzaprine HCl (Cyclobenzaprine HCl) 10 Mg Tablet, 10 MG PO TID PRN for MUSCLE SPASMS Hydroxyzine HCl (Hydroxyzine HCl) 10 Mg Tablet, 10 MG PO TID PRN for ANXIETY Tramadol HCl (Tramadol HCl) 50 Mg Tablet, 50 MG PO QID PRN for PAIN Allergies Coded Allergies: Penicillins (Verified Allergy, Mild, RASH/ITCHING, 06/22/20) A-FIB/CHADSVASC A-FIB History Current/History of A-Fib/PAF?: Yes Current PO Anticoag Therapy: Yes Attending Note Attending Note Time of service 150am Ms. Clancy is a 70 yr old w a hx of CAD/CABG, A.fib, CKD4, chronic HFpEF, PAD, COPD, Severe Pulm HTN, class 3 obesity, JEFFERY , Anemia of chronic dz, IDDM w neuropathy, TAVR to manage severe aortic stenosis, HTN heart dz, RLS, Depression/Anxiety who was transferred from our ER to [facility] on January 14 for tx of NSTEM (trop was 1.55). Today she presented w c/o chest pain which has now resolved. Her PE was unremarkable except for lethargy and Afib w a rate between the 90s to 110s. She will be admitted for: #Rapid Afib possibly due to Hypokalemia #Hypokalemia #EVERTON on CKD4 # SIRS (tachycardia and tachypnea) Plan: treat rapid afib, telemetry, request records from [facility], nicko K & f/u Mg Rest per BERTA Huff&P ANDREA MCQUEEN Feb 07, 2021 02:51 JACKLYN LYNN MD Feb 07, 2021 05:32
[2021-02-07] MEDS ORDERED: INSUHUMDS SC (03:58)
[2021-02-07] MEDS ORDERED: ATOR40TA75 PO (03:58)
[2021-02-07] MEDS ORDERED: INSULADS INJ (03:58)
[2021-02-07] MEDS ORDERED: NIFE1TAB51 PO (03:58)
[2021-02-07] MEDS ORDERED: AMMO12CR7 TOP (03:58)
[2021-02-07] MEDS ORDERED: ACET-897 PO (03:58)
[2021-02-07] MEDS ORDERED: POTA10TA16 PO (03:58)
[2021-02-07] MEDS ORDERED: hydrOXYzine 10 MG TAB PO PRN (04:05)
[2021-02-07] MEDS ORDERED: traMADol 50 MG TAB PO PRN (04:05)
[2021-02-07] MEDS ORDERED: ACETAMINOPHEN 500 MG TAB PO PRN (04:05)
[2021-02-07] MEDS ORDERED: CYCLOBENZAPRINE 10MG TABLET PO PRN (04:05)
[2021-02-07] MEDS ORDERED: POTASSIUM CHLORIDE 10% LIQ 20 MEQ/15 ML UDC PO ONE (06:00)
[2021-02-07] MEDS: HumaLOG INSULIN (NovoLOG) PER UNIT SC SCH ×2 (07:30→13:06)
[2021-02-07] MEDS ORDERED: ISOSORBIDE DIN. (ISORDIL) 20 MG TAB PO SCH (08:00)
[2021-02-07 08:53] LABS: HEMATOCRIT 33.4 % (36.0-47.0); HEMOGLOBIN 11.1 g/dl (12.0-15.5); MEAN CORPUSCULAR HGB CONC 33.2 g/dl (32.0-36.5); MEAN CORPUSCULAR VOLUME 84.3 fl (80.0-96.0); PLATELET COUNT, AUTOMATED 157 10^3/uL (150-450); RED BLOOD COUNT 3.96 10^6/uL (4.00-5.40); WHITE BLOOD COUNT 7.1 10^3/uL (4.0-10.0)
[2021-02-07] MEDS ORDERED: rOPINIRole 2MG TAB PO SCH (09:00)
[2021-02-07] MEDS ORDERED: FERROUS GLUCONATE 324 MG TAB PO SCH (09:00)
[2021-02-07] MEDS ORDERED: CARVedilol 12.5 MG TAB PO SCH (09:00)
[2021-02-07] MEDS ORDERED: DOCUSATE SODIUM 100MG CAPSULE PO SCH (09:00)
[2021-02-07] MEDS ORDERED: POTASSIUM CHLORIDE 10 MEQ SR TABLET PO SCH (09:00)
[2021-02-07] MEDS ORDERED: OMEPRAZOLE 20 MG CAP PO SCH (09:00)
[2021-02-07] MEDS ORDERED: NIFEdipine 30 MG XL TAB PO SCH (09:00)
[2021-02-07] MEDS ORDERED: CLOPIDOGREL 75 MG TAB PO SCH (09:00)
[2021-02-07 09:19] LABS: CALCIUM LEVEL 9.3 MG/DL (8.8-10.2); CREATININE FOR GFR 3.45 MG/DL (0.55-1.30); GLOMERULAR FILTRATION RATE 14.1 (>45); POTASSIUM SERUM 3.6 MEQ/L (3.5-5.1)
--- NOTE | 2021-02-07 09:28 | REP ---
INDICATION: tonya. COMPARISON: 07/19/2020 and 09/07/2017 TECHNIQUE: Sonographic evaluation of the kidneys was obtained bilaterally FINDINGS: Multiple ultrasonographic images of the right kidney show the right kidney to measure 11.7 x 4.8 x 6.4 cm. The renal cortical echotexture is unremarkable. There is a 6 mm sized focus of diffuse increased echoes in the inferior pole. There is good corticomedullary differentiation. There is no hydronephrosis. There are no perinephric fluid collections. Multiple ultrasonographic images of the left kidney show the left kidney to measure 10.7 x 5.2 x 5.7 cm. The renal cortical echotexture is unremarkable. There are no masses. There is good corticomedullary differentiation. There is no hydronephrosis. There are no perinephric fluid collections. IMPRESSION: There is a small echogenic focus seen in the inferior pole of the right kidney as described above. This potentially represents a high adipose content lesion such as an angiomyolipoma, however, it was not present on either of the prior exams. Further evaluate with CT before and after intravenous contrast is warranted. <Electronically signed by Steve Trivedi > 02/07/21 0942
[2021-02-07 09:55] LABS: CK-MB VALUE MASS 37.6 NG/ML (<3.6); MB/CK RELATIVE INDEX 9.15 (< OR =4); TROPONIN I 15.7 NG/ML (< 0.10)
[2021-02-07 10:24] LABS: HEMATOCRIT 33.4 % (36.0-47.0); MEAN CORPUSCULAR HEMOGLOBIN 27.9 pg (27.0-33.0); MEAN CORPUSCULAR HGB CONC 32.9 g/dl (32.0-36.5); MEAN CORPUSCULAR VOLUME 84.8 fl (80.0-96.0); PLATELET COUNT, AUTOMATED 159 10^3/uL (150-450); RED BLOOD COUNT 3.94 10^6/uL (4.00-5.40); WHITE BLOOD COUNT 7.3 10^3/uL (4.0-10.0)
[2021-02-07 11:15] LABS: CALCIUM LEVEL 9.4 MG/DL (8.8-10.2); CK-MB VALUE MASS 35.5 NG/ML (<3.6); CREATININE FOR GFR 3.7 MG/DL (0.55-1.30); MB/CK RELATIVE INDEX 9.01 (< OR =4); POTASSIUM SERUM 3.8 MEQ/L (3.5-5.1); TROPONIN I 16.7 NG/ML (< 0.10)
--- NOTE | 2021-02-07 13:03 | DS.PDOC ---
Discharge Summary General Date of Admission Feb 06, 2021 at 22:29 Date of Discharge 02/07/2021 Attending Physician: KRISTIE MARRUFO MD Discharge Summary PROCEDURES PERFORMED DURING STAY: None ADMITTING DIAGNOSES: chest pain Afib with RVR [place] DISCHARGE DIAGNOSES: Inferolateral NSTEMI Afib with RVR [place] on CKD3 CAD (s/p CABG in 2019) s/p SAVR in 2019 DM1 HTN HLD Hypothyroidism COPD COMPLICATIONS/CHIEF COMPLAINT: Acute Renal Failure, Afib W Rvr. HISTORY OF PRESENT ILLNESS: 70 y/o W with a history of CAD s/p CABG in 2019, hld, a-fib, copd, ckd4, DM1, layla, htn, aortic valve replacement done at the time of the CABG, hypothyroidism who presented to the ED late at night on 02/06 with a chief complaint of chest pain that began earlier that evening while sitting on her couch and was substernal, 04/10 that felt like squeezing and was non-radiating. She denied precipitating events such as exercise or recent illness. Patient states that she believed at first that the pain was indigestion, so she made herself some food, however this did not relieve the pain and then slowly worsened so she reported to the emergency department. Of note, the patient was recently discharged from [facility] for a CHF exacerbation, and states that her sob still has not fully resolved, reporting that was still very fatigued and gets winded easily upon exertion. She otherwise denied any recent fever, chills, wheezing, sob at rest, back pain, dysuria, n/v/d/c, abd pain. HOSPITAL COURSE: On presentation she was hemodynamically stable, afebrile, saturating well on room air and was tachycardic. EKG showed a-fib with RVR with inferolateral ST depressions that, I should note have been noted on a prior EKG but were much more pronounced this time per my read (I reviewed it this morning on resuming her care) and initial troponin was 0.05. She reported improvement in her chest pain after receiving metoprolol 5mg IV and her rate improved from 130s to 80s. Of note, patient also had a K of 2.6, and a cr of 3.74 from her baseline of around 2.5. K was repleted and she was given IVF with improvement of her Cr to 3.45. Her initial troponin of 0.05 was at 10.57pm and the next troponin check for unclear reason was done at 8.33am this morning and had dramatically increased to 15.7. On noting this dramatic troponinemia, I reordered an EKG despite her chest pain having subsided and she had converted back to sinus and the inferolateral ST depressions had resolved and there was noted Qs. When I asked her specifically about the degree of discomfort at that time, she reported that she was "ok when resting" but would have substernal pain when she walked to the bathroom. I consulted Dr. Hurtado who initiated conversation with [facility] cardiology in [place] for potential transfer for potential NSTEMI and in the mean time repeat troponin further increased to 16.7. Of note, her cardiac medications at admission included plavix, xarelto, coreg 25 BID that were continued, as well as isosorbide dinitrate 20 TID, torsemide 100 BID, amlodipine 10 QD that were held. She is now being transferred to [place] with no current complaint of chest pain, hemodynamically stable, on 3L NC saturating 91%, afebrile bu ambulance to be accepted by Dr. Molina who spoke with Dr. Hurtado. Of note, her last dose of xarelto was at 8PM on 02/06 and that is why starting a heparin gtt was delayed and I deferred TTE etc as it would delay transfer to an appropriate cardiology team with interventional capabilities. DISCHARGE MEDICATIONS: Please see below. ALLERGIES: Please see below. PHYSICAL EXAMINATION ON DISCHARGE: VITAL SIGNS: Please see below. GENERAL APPEARANCE: Awake, alert, speaking on phone to daughterMARGIE HEENT: NCAT. EOMI. No scleral icterus. Nares patent. Poor dentition. CARDIOVASCULAR: RRR this morning, no noted murmurs, rubs or gallops LUNGS: CTAB, no crackles noted, on 3L NC, saturating 91% ABDOMEN: obese, normoactive sounds, soft, NTND EXTREMITIES: Trace edema to right lower extremity. No overlying skin changes. Pulses intact.. NEUROLOGICAL: Speech clear. A+Ox3. No focal deficits. PSYCHIATRIC: AOx3 LABORATORY DATA: See below. IMAGING: CXR: Lungs: No focal infiltrates. There are decreased perihilar infiltrates since the prior study. Pleural spaces: Unremarkable. No pleural effusion. No pneumothorax. Heart/Mediastinum: Top-normal heart size considering AP and lordotic projection. Status post aortic valve replacement. Bones/joints: Status post sternotomy. IMPRESSION: 1. Status post sternotomy and aortic valve replacement. 2. Otherwise negative chest. There is resolution of congestive failure since 01/14/2021. PROGNOSIS: Good ACTIVITY: As tolerated DIET: consistent carb DISCHARGE PLAN: Discharge/transfer to [facility] DISPOSITION: Discharge/transfer to [facility] DISCHARGE INSTRUCTIONS: Discharge/transfer to [facility] ITEMS TO FOLLOWUP ON ON OUTPATIENT: Cardiology follow up PCP follow up DISCHARGE CONDITION: Stable TIME SPENT ON DISCHARGE: 43 minutes. Vital Signs/I&Os Vital Signs Date Time Temp Pulse Resp B/P (MAP) Pulse Ox O2 Delivery O2 Flow Rate FiO2 02/07/21 10:30 58 18 164/64 (97) 100 Nasal Cannula 2.0 02/06/21 22:41 98.6 I&O- Last 24 Hours up to 6 AM 02/07/21 06:00 Intake Total 500 ml Balance 500 ml Laboratory Data Labs 24H Laboratory Tests 2 02/06/21 22:57: Immature Granulocyte % (Auto) 0.4, Neutrophils (%) (Auto) 66.2H, Lymphocytes (%) (Auto) 23.0L, Monocytes (%) (Auto) 7.8, Eosinophils (%) (Auto) 2.1, Basophils (%) (Auto) 0.5, Neutrophils # (Auto) 5.3, Lymphocytes # (Auto) 1.9, Monocytes # (Auto) 0.6, Eosinophils # (Auto) 0.2, Basophils # (Auto) 0.0, Nucleated Red Bl ood Cells % (auto) 0.0, Anion Gap 10, Glomerular Filtration Rate 12.8L, Calcium Level 9.5, Magnesium Level 2.4, Total Bilirubin 0.8, Direct Bilirubin 0.2, Aspartate Amino Transf (AST/SGOT) 22, Alanine Aminotransferase (ALT/SGPT) 34, Alkaline Phosphatase 95, Total Creatine Kinase 95, Creatine Kinase MB 1.3, Creatine Kinase MB Relative Index 1.37, Troponin I 0.05, NQ-Oxw-Z-Type Natriuretic Peptide 3746H, Total Protein 6.9, Albumin 3.5, Albumin/Globulin Ratio 1.0L, Lipase 91, Thyroid Stimulating Hormone (TSH) 2.350, Free Thyroxine 0.93 02/07/21 01:37: Coronavirus (COVID-19)(PCR) NEGATIVE, Influenza Type A (RT-PCR) NEGATIVE, Influenza Type B (RT-PCR) NEGATIVE, Respiratory Syncytial Virus (PCR) NEGATIVE 02/07/21 08:33: Nucleated Red Blood Cells % (auto) 0.0, Anion Gap 9, Glomerular Filtration Rate 14.1L, Calcium Level 9.3, Total Creatine Kinase 411#H, Creatine Kinase MB 37.6H, Creatine Kinase MB Relative Index 9.15H, Troponin I 15.70#*H 02/07/21 10:13: Nucleated Red Blood Cells % (auto) 0.0, Anion Gap 5L, Glomerular Filtration Rate 13.0L, Calcium Level 9.4, Total Creatine Kinase 394H, Creatine Kinase MB 35.5H, Creatine Kinase MB Relative Index 9.01H, Troponin I 16.70*H 02/07/21 10:25: Activated Partial Thromboplast Time 33.1 CBC/BMP Laboratory Tests 02/06/21 22:57 02/07/21 08:33 02/07/21 10:13 Discharge Medications Scheduled Amlodipine Besylate (Amlodipine Besylate) 10 Mg Tablet, 10 MG PO QHS, (Reported) Ammonium Lactate (Ammonium Lactate) 12% Cream..g., 1 DOSE TOP QHS, (Reported) APPLY TO FEET AFTER SHOWER Atorvastatin Calcium (Atorvastatin Calcium) 40 Mg Tablet, 40 MG PO QHS, (Reported) Calcitriol (Calcitriol) 0.25 Mcg Capsule, 0.25 MCG PO QHS, (Reported) Carvedilol (Carvedilol) 25 Mg Tablet, 25 MG PO BID, (Reported) Cholecalciferol (Vitamin D3) (Vitamin D3) 125 Mcg Capsule, 5,000 UNITS PO QHS, (Reported) Clopidogrel Bisulfate (Clopidogrel) 75 Mg Tablet, 75 MG PO DAILY, (Reported) Ferrous Gluconate (Ferrous Gluconate) 324 Mg Tablet, 324 MG PO BID, (Reported) Fluticasone/Umeclidin/Vilanter (Trelegy Ellipta 100-62.5-25) 1 Each Blst.w.dev, 1 PUFF PO DAILY, (Reported) Insulin Glargine (Lantus) 100 Unit/1 Ml Vial, 44 UNIT INJ QHS, (Reported) Insulin Human Lispro (Humalog) 100 Unit/1 Ml Vial, 1 DOSE SC AC, (Reported) PER SLIDING SCALE Isosorbide Dinitrate (Isosorbide Dinitrate) 20 Mg Tablet, 20 MG PO TID, (Reported) Multivitamins (Thera M Plus Tablet) 1 Each Tablet, 1 TAB PO QHS, (Reported) Omeprazole (Omeprazole) 40 Mg Cap, 40 MG PO DAILY, (Reported) Potassium Chloride (Potassium Chloride) 10 Meq Tab.er.prt, 10 MEQ PO DAILY, (Reported) Rivaroxaban (Xarelto) 15 Mg Tablet, 15 MG PO QHS, (Reported) Ropinirole HCl (Ropinirole HCl) 1 Mg Tab, 2 MG PO BID, (Reported) Sertraline HCl (Sertraline HCl) 50 Mg Tab, 100 MG PO QHS, (Reported) Torsemide (Torsemide) 100 Mg Tablet, 100 MG PO BID, (Reported) Scheduled PRN Acetaminophen (Tylenol Extra Strength) 500 Mg Tablet, 1,000 MG PO Q6H PRN for PAIN, (Reported) Cyclobenzaprine HCl (Cyclobenzaprine HCl) 10 Mg Tablet, 10 MG PO TID PRN for MUSCLE SPASMS, (Reported) Hydroxyzine HCl (Hydroxyzine HCl) 10 Mg Tablet, 10 MG PO TID PRN for ANXIETY, (Reported) Tramadol HCl (Tramadol HCl) 50 Mg Tablet, 50 MG PO QID PRN for PAIN, (Reported) Allergies Coded Allergies: Penicillins (Verified Allergy, Mild, RASH/ITCHING, 06/22/20) KRISTIE MARRUFO MD Feb 07, 2021 13:03
[2021-02-07 13:21] VITALS: BP 121/54
[2021-02-07] MEDS ORDERED: RIVAROXABAN 15 MG TAB (XARELTO) PO SCH (18:00)
--- NOTE | 2021-02-07 19:43 | ECGEPIP ---
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
[2021-02-07] MEDS ORDERED: HEPARIN DRIP 25,000 UNITS in IV 1 EA IV SCH (20:00)
[2021-02-07] MEDS ORDERED: HEPARIN SOD (PORCINE) 5000UNITS/ML 1ML VIAL/SYRINGE IV PRN (20:00)
[2021-02-07] MEDS ORDERED: LACTIC ACID 12% LOTION 225 GM BTL TOP SCH (21:00)
[2021-02-07] MEDS ORDERED: LEVEMIR (INSULIN DETEMIR) 1 UNITS/0.01ML SC SCH (21:00)
[2021-02-07] MEDS ORDERED: CALCITRIOL 0.25 MCG CAP (S0169) PO SCH (21:00)
[2021-02-07] MEDS ORDERED: SERTRALINE HCL 50 MG TAB PO SCH (21:00)
[2021-02-07] MEDS ORDERED: HumaLOG INSULIN (NovoLOG) PER UNIT SC SCH (21:00)
[2021-02-07] MEDS ORDERED: ATORVASTATIN 20 MG TAB PO SCH (21:00)
[2021-02-07] MEDS ORDERED: SERTRALINE 100 MG TAB PO SCH (21:00)
[2021-02-07] MEDS ORDERED: MULTIVITAMINS/MINERALS THERAP 1 TAB PO SCH (21:00)
--- NOTE | 2021-02-08 05:59 | ECGEPIP ---
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
--- NOTE | 2021-02-09 13:29 | ECHO ---
ECHOCARDIOGRAM DATE OF PROCEDURE: 02/07/2021 Age: 70 Gender: Female Height: Weight: REFERRING PHYSICIAN: Balbina Stratton M.D. PATIENT LOCATION: ED, Room 10. REASON FOR STUDY: Chest pain, abnormal serum troponin. MEASUREMENTS: IVS 1.3 cm LV 4.6 cm LA 3.3 cm Aorta 2.3 cm IVC 1.3 cm DOPPLER MEASUREMENT Peak velocity across the aortic valve 2.4 m/s Peak velocity across the LVOT 0.9 m/s Peak gradient across the aortic valve 23 mmHg Mean gradient across the aortic valve 11 mmHg Mitral E 1.5 Mitral A 0.9 with a ratio of 1.6 2D COMMENTS: 1. Normal left ventricular size with mildly increased left ventricular wall thickness. Left ventricular systolic function is normal, estimated at 60% to 65%. 2. Normal left atrium. Normal right atrium and right ventricle. 3. The atrial septum appeared to be normal without evidence of defect or shunt. 4. Normal aortic root. 5. No pericardial effusion seen. 6. Moderately calcified mitral annulus with normal anterior mitral valve leaflet motion. Bioprosthetic valve noted in the aortic valve position, leaflet excursion not well visualized. Normal tricuspid valve and pulmonic valve. The proximal pulmonary artery branches also appeared to be normal. 7. The inferior vena cava was normal in size, central venous pressure is most likely normal. DOPPLER: Detects trace aortic regurgitation, trace mitral regurgitation, trace tricuspid regurgitation, and trace pulmonic regurgitation. Abnormal relaxation pattern was noted across the mitral valve annulus consistent with features of grade 2 left ventricular diastolic dysfunction. IMPRESSION: 1. Normal global left ventricular systolic function with mild concentric left ventricular hypertrophy. 2. Bioprosthetic aortic valve with normal functioned noted in limited views. Only trace aortic regurgitation detected. 3. Mitral annular calcification with trace mitral regurgitation. 4. Trace tricuspid regurgitation. 5. Trace pulmonic regurgitation. 6. There are some features of grade 2 left ventricular diastolic dysfunction, left ventricular end-diastolic pressure mildly elevated. 7. SBE prophylaxis is recommended.
== END 2021-02-07 13:27 | disposition short-term general hospital (02) ==
LOC: M ED 22:28 → M ED INP 22:29 → UNDOADMOB 22:29 → M ED INP 02-07 02:50 → M ED 02-07 13:27
PROVIDERS: ADMIT Internal Medicine; ATTEND Internal Medicine
DX: I21.4 Non-ST elevation (NSTEMI) myocardial infarction (principal); I48.91 Unspecified atrial fibrillation; N17.9 Acute kidney failure, unspecified; E10.9 Type 1 diabetes mellitus without complications; N18.30 Chronic kidney disease, stage 3 unspecified; I12.9 Hypertensive chronic kidney disease with stage 1 through stage 4 chronic kidney disease, or unspecified chronic kidney disease; E03.9 Hypothyroidism, unspecified; E78.49 Other hyperlipidemia; J44.9 Chronic obstructive pulmonary disease, unspecified; Z79.899 Other long term (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 therapy; Z79.4 Long term (current) use of insulin; Z88.0 Allergy status to penicillin; I25.10 Atherosclerotic heart disease of native coronary artery without angina pectoris; Z95.1 Presence of aortocoronary bypass graft
CPT/HCPCS: 36415; 71045; 76775; 80048; 80076; 82550; 82553; 83690; 83735; 83880; 84439; 84443; 84484; 85025; 85027; 85730; 87631; 93005; 93041; 93306; 94760; 96361; 96374; 96376; 99285; G0378

== ENCOUNTER → 2021-02-12 | Outpatient (REF) | payer MEDICARE ==
[~2021-02-12] MED LIST changes: +ACET-897 PO; +AMMO12CR7 TOP; +INSUHUMDS SC; +INSULADS INJ; +NIFE1TAB51 PO; +POTA10TA16 PO
[2021-02-12 17:54] LABS: PERCENT SATURATION 12.1 % (13.2-45.0)
== END ==
LOC: M LAB REF 17:10
PROVIDERS: ATTEND Internal Medicine Nephrology
DX: D50.9 Iron deficiency anemia, unspecified (principal)

== ENCOUNTER 2021-02-27 09:07 | Outpatient (CLI) | payer MEDICARE ==
[~2021-02-27] VITALS: Ht 154.9 cm; Wt 84.4 kg
[~2021-02-27 09:07] MED LIST changes: +ALBUTEROL SULFATE 2.5 MG/0.5 ML INH NEB SOLN INH PRN; +EPINEPHrine INJ 1 MG/ML 1ML AMP IM PRN; +FERRIC CARBOXYMALTOSE INJ 750 MG, VIAL MATE ADAPTER 1 EACH in NS 250 ML IV ONE; +NS 1,000 ML IV SCH; +OMEP40CA4 PO; -OMEP40CA97 PO; +diphenhydrAMINE 50MG/ML VIAL (J1200) IV PRN; +methylPREDNISolone 125MG 2ML VIAL IV PRN
[2021-02-27 09:10] VITALS: BP 187/78
[2021-02-27 10:30] VITALS: BP 190/79
[2021-02-27 12:35] VITALS: BP 184/81
== END 2021-02-27 12:35 | disposition home or self-care (01) ==
LOC: M INFU 09:07
PROVIDERS: ATTEND Internal Medicine Nephrology
DX: D50.9 Iron deficiency anemia, unspecified (principal); Z79.899 Other long term (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 therapy
CPT/HCPCS: 96365; 96366; J1439

== ENCOUNTER → 2021-04-16 | Outpatient (REF) | payer MEDICARE ==
[~2021-04-16] MED LIST changes: -ALBUTEROL SULFATE 2.5 MG/0.5 ML INH NEB SOLN INH PRN; -CLIN150C15 PO; +CLIN150C17 PO; -EPINEPHrine INJ 1 MG/ML 1ML AMP IM PRN; -FERRIC CARBOXYMALTOSE INJ 750 MG, VIAL MATE ADAPTER 1 EACH in NS 250 ML IV ONE; -NS 1,000 ML IV SCH; -diphenhydrAMINE 50MG/ML VIAL (J1200) IV PRN; -methylPREDNISolone 125MG 2ML VIAL IV PRN
[2021-04-16 18:30] LABS: MAGNESIUM LEVEL 2.2 MG/DL (1.8-2.4); PERCENT SATURATION 20.8 % (13.2-45.0)
== END ==
LOC: M LAB REF 17:15
PROVIDERS: ATTEND Internal Medicine Nephrology
DX: D50.9 Iron deficiency anemia, unspecified (principal); N18.4 Chronic kidney disease, stage 4 (severe)

== ENCOUNTER → 2021-05-23 | Outpatient (CLI) | payer MEDICARE ==
--- NOTE | 2021-05-23 15:55 | REP ---
INDICATION: RENAL FAILURE. Arteriovenous fistula left arm. COMPARISON: None. TECHNIQUE: Left upper extremity duplex arterial ultrasound. FINDINGS: There is a patent fistula between the proximal radial artery and the median cubital vein. There is no apparent stenosis. Pre anastomotic flow in the brachial artery 2 cm above the anastomosis is normal at 177 centimeters/second. Calculated flow volume in the pre and asked [place] brachial artery is a 0.32 liters/minute. The vessel measures is 4.9 mm at this level. At the radial artery anastomosis, peak systolic flow velocity is 513 centimeters/second. The vessel measures 1.8 mm in diameter. The median cubital/distal cephalic vein measures 5.9 mm in diameter, 1.9 mm from the skin. 2 cm distal to the anastomosis and a peak systolic flow velocity is 447 centimeters/second and 8 cm from the anastomosis, peak systolic velocity is 198 centimeters/second. The flow volume measured in the vein post anastomosis is 0.9 liters/minute. Peak systolic flow velocity in the radial artery distal to the fistula it is cyst 18 centimeters/second. Peak systolic flow velocity in the left ulnar artery distal to the fistula is 60 centimeters/second. IMPRESSION: Patent AV fistula left arm. No apparent stenosis. <Electronically signed by Cisco Amador > 05/23/21 [id number]
== END ==
LOC: M RAD 12:32
PROVIDERS: ATTEND Surgery Vascular Surgery
DX: I77.0 Arteriovenous fistula, acquired (principal)

== ENCOUNTER → 2021-06-18 | Outpatient (REF) | payer MEDICARE | LOC: M LAB REF 16:58 | PROVIDERS: ATTEND Internal Medicine Nephrology | DX: E83.42 Hypomagnesemia (principal) ==

== ENCOUNTER 2021-06-29 16:13 | Inpatient (IN) | payer MEDICARE ==
[~2021-06-29] VITALS: Ht 154.9 cm; Wt 85.1 kg
[2021-06-29] MEDS: rOPINIRole 2MG TAB PO SCH (04:00)
--- OUTSIDE RECORDS SUMMARY | 2021-06-29 16:19 | CCD | Continuity of Care Document ---
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 AUTM [phone] Tristen Camacho M.D. AUTM [phone] George Minor M.D. AUTM [phone] AUTM Unavailable AUTM Unavailable Problems Active Problems Provider Date Allergic asthma without status asthmaticus Narendra Weinberg M.D. Onset: 10/10/2017 Essential hypertension Narendra Weinberg M.D. Onset: 018 Social History Type Date Description Comments Sex Unknown ETOH Use Rarely Tobacco Use Start: Unknown Denies Smoking Recreational Drug Use Denies Drug Use Smoking Status Reviewed: 09/05/20 Denies Smoking Allergies and adverse reactions Active Allergies Criticality Reaction | Severity Comments Date Penicillin Unable to assess criticality HIVES 10/10/2017 Medications Active Medications SIG Qnty Indications Ordering Provide r Date Trelegy Ellipta 100- 62.5-25mcg/Inh Aerosol one inhalation daily Unknown 000 Insulin Lispro (1 Unit Dial) 100Unit/ML Solution Pen-Inject Inject 3 Times Daily Before A Meal Per T he Insulin Algorithm Max Daily Dose Of 120 Units Unknown Lantus Solostar 100U nit/ML Solution Pen-Inject Inject 44 Units Subcutaneously Once Micheal y AT Night . DO Not Exceed 100 Per 24 Hours Unknown Hydroxyzine HCL 10mg Tablets 1 tab by mouth every day Unknown Calcitriol 0.25mcg Capsules 1 tab po qd Unknown Tramadol HCL 50mg Tablets Take 1 Tablet By Mouth 4 Times Daily as Needed Unknown Cyclobenzaprine HCL 10mg Tablets Take 1 Tablet By Mouth Three Times Daily as Needed For Muscle Spasm Unknown Multivitamin Adult Tablets 1 by mouth every day Unknown Ferrous Gluconate 324(38Fe) mg Tab lets 1 tab by mouth 2 times a day Unknown Xarelto 15mg Tablets 1 every day in evening 90tabs Kayla Adair M.D. Acetaminophen 500mg Tablets 2 tabs by mouth every 6 hours as needed Unknown Oxycodone-Acetaminophen 5-325mg Ta blets 1 tab by mouth Q8H as needed Unknown Carvedilol 25mg Tablets twice a day 60tabs Reason, Isadora [place] Isosorbide Dinitrate 20mg Tablets Take 1 Tablet By Mouth Three Times Daily as Directed Un known Amlodipine Besylate 10mg Tablets Take 1 Tablet By Mouth Once Daily Unknown Clopidogrel Bisulfate 75mg Tablets Take 1 Tablet By Mouth in morning Unknown Torsemide 100mg Tablets Take 1 Tablet qam And 1/2 QHS Unknown Vitamin D 125mcg (5000 Ut) Capsule s 1 tab by mouth every day Unknown Sertraline HCL 50mg Tablets 2 every night 30tabs Reason, Isadora [place] Ropinirole HCL 1mg Tablets 2 qam And 2 QHS Reason, Isadora [place] Omeprazole 40mg Capsules DR every day 90caps Reason, Isadora [place] Atorvastatin Calcium 40mg Tablets every day 90tabs Reason, Isadora [place] Klor-Con M10 10Meq Tablets ER once a day 60tabs Reason, Nikki [place]. Immunizations Description No Information Available Vital Signs Date Vital Result Comment 06/18/2021 2:55pm BP Systolic 198 mmHg BP Diastolic 74 mmHg Body Temperature 98.2 F Height 61 inches 5'1" Weight 188.12 lb BMI (Body Mass Index) 35.5 kg/m2 [place] Body Weight 105 lb Weight 85.334 kg BSA (Body Surface Area) 1.84 m2 04/30/2021 3:12pm BP Systolic 137 mmHg BP Diastolic 73 mmHg Heart Rate 88 /min Body Temperature 98.3 F Height 61 inches 5'1" Weight 188.38 lb BMI (Body Mass Index) 35.6 kg/m2 [place] Body Weight 105 lb Weight 85.447 kg BSA (Body Surface Area) 1.84 m2 Results Test Acquired Date Facility Test Result H/L Range Note Laboratory test finding 02/14/2021 [facility] [address], [place] [id number] [phone] Non Maintenance Planning Clerk/Cytology Req For Servi (SEE NOTE) 1 Laboratory test finding 02/14/2021 [facility] [address], [place] [id number] [phone] Non Maintenance Planning Clerk/Cytology Req For Servi (SEE NOTE) 2 1 SPECIMEN: FNA Lef t thyroid Specimen received in Cytolyt (clear) SPECIMEN ADEQUACY: Satisfactory for evaluation CATEGORIZATION: Benign DESCRIPTIONS: Groups of follicular cells exhibitng hurthle cell changes noted. The background consists of scattered lymphocytes and rare macrophages. COMMENTS: 02/15/2021 - 909 Signed MARIE RIOS(ASCP) 02/15/2021 0911 (Prelim) Signed DORIAN TAI MD 02/15/2021 1053 2 SPECIMEN: FNA Rig ht thyroid Specimen received in Cytolyt (clear) SPECIMEN ADEQUACY: Satisfactory for evaluation CATEGORIZATION: Benign DESCRIPTIONS: Few scattered groups of follicular cells noted in a background of scattered lymphocytes and debris. COMMENTS: 02/15/2021918 Signed MARIE RIOS(ASCP) 02/15/2021 0919 (Prelim) Signed DORIAN TAI MD 02/15/2021 1053 Procedures Date Code Description Status 04/30/2021 83793 Office/Outpatient Established Lo w MDM 20-29 Min Completed 01/23/2021 85801 Office/Outpatient New Low MDM 30 -44 Minutes Completed Medical Devices Description No Information Available Encounters Type Date Location Provider Dx Diagnosis Office Visit 04/30/2021 3:00p [facility] Jose David Lin MD N18.6 End stage renal disease Office Visit 01/23/2021 9:30a [facility] Catrachito Beckwith MD E04.2 Nontoxic multinodular goiter Office Visit 01/11/2021 9:15a [facility] Cydney miner MD Z48.812 Encntr for surgical aftcr following surg lisa on the circ sys Office Visit 12/25/2020 9:15a [facility] BERTA Sofia N18.4 Chronic kidney disease, stage 4 (severe) Z48.812 Encntr for surgical aftcr fo llowing surgery on the circ sys Assessments Date Code Description Provider 04/30/2021 N18.6 End stage renal disease Jose David newberry MD 01/23/2021 E04.2 Nontoxic multinodular goiter Richard Beckwith MD 01/11/2021 Z48.812 Encounter for surgic al aftercare following surgery on the circulatory system Cydney Mitchell MD 12/25/2020 N18.4 Chronic kidney disease, stage 4 (severe) BERTA Bar 12/25/2020 Z48.812 Encounter for surgic al aftercare following surgery on the circulatory system BERTA Bar Plan of Treatment No Information Available Functional Status Description No Information Available Mental Status Description No Information Available Referrals Refer to Dr Reason for Referral Status Appt Date Jose David Lin MD EVAL AV FISULTA Scheduled 04/30/2021 [address], [address] [place] [address] [phone] Catrachito Beckwith MD 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
--- OUTSIDE RECORDS SUMMARY | 2021-06-29 16:19 | CCD | Continuity of Care Document ---
Author Author Oxana WILL DPValentina Organization Unknown Address [address] [place] [address], [address] [place] [address] Phone [phone] Care Team Providers Care Marine Cargo Surveyor Name Role Phone Andre Diamond M.D. AUTM [phone] Vito Lucero M.D. AUTM [phone] Problems Active Problems Provider Date Type 2 diabetes mellitus with diabetic polyneuropathy Ramiro Will DPM Onset: 08/16/2020 Onychomycosis Ramiro Will DPM Onset: 11/01/2020 Callosity Ramiro Will DPM Onset: 11/01/2020 Social History Type Date Description Comments Sex Unknown ETOH Use Denies alcohol use Tobacco Use Start: Unknown Patient is a current smoker, smo kes every day Allergies and adverse reactions Active Allergies Criticality Reaction | Severity Comments Date Penicillin V Unable to assess criticality 08/03/2020 Medications Active Medications SIG Qnty Indications Ordering Provide r Date Ammonium Lactate 12% Cream apply to feet daily 140gm Ramiro Will DPM 10/27/2020 Furosemide 40mg Tablets Take 1 Tablet By Mouth Twice Daily Unknown Furosemide 40mg Tablets Reason Andre Erazo Hydroxyzine HCL 10mg Tablets Take 1 Tablet By Mouth Three Times Daily as Needed For Anxiety Unknown Hydroxyzine HCL 10mg Tablets Reason Andre Erazo Xarelto 20mg Tablets Take 1 Tablet By Mouth Once Daily Unknown Xarelto 20mg Tablets Reason Andre Erazo Cephalexin 500mg Capsules Unknown Cephalexin 500mg Capsules Take 1 Capsule By Mouth Three Times Daily as Directed Unknown BD Pen Needle/Hansa/Ultra -Fine/32G X 4mm 32G X 4 mm Misc Use Three Times Daily Before Meals as Directed Unknown Humulin R U-500 Kwikpen 500Unit/ML Solution Pen-Inject Inject 70 Units AT Breakfast 70 Units AT Lunch And 80 Units AT Dinner Unknown Oxycodone-Acetaminophen 5-325mg Ta blets Take 1 Tablet By Mouth Every 8 Hours as Needed For Pain . DO Not Exceed 3 Per 24 Hours Unknown Oxycodone-Acetaminophen 5-325mg Tablets Andre Diamond M.D. Clindamycin HCL 300mg Capsules Andre Diamond M.D. Clindamycin HCL 300mg Capsules Take 1 Capsule By Mouth Every 8 Hours as Directed Unkno wn Ciprofloxacin HCL 500mg Tablets Take 1 Tablet By Mouth Every 12 Hours as Directed For 7 Days Unknown Ciprofloxacin HCL 500mg Tablets Andre Diamond M.D. Hydralazine HCL 10mg Tablets Kayla Adair MD Hydralazine HCL 10mg Tablets Take 3 Tablets By Mouth 4 Times Daily Unknown 0 Levofloxacin 750mg Tablets Take 1 Tablet By Mouth Every 48 Hours Unknown 00 Levofloxacin 750mg Tablets Kayla Adair MD Fluticasone Propionate 50mcg/Act Suspension Andre Diamond M.D. Hydralazine HCL 25mg Tablets Tristen Camacho MD Torsemide 20mg Tablets Take 2 Tablet By Mouth Once Daily For 7 Days Then Take 2 Tablet Twice Daily Unknown Torsemide 20mg Tablets George Minor M.D Hydralazine HCL 50mg Tablets Take 1 Tablet By Mouth Twice Daily Unknown Hydralazine HCL 50mg Tablets Unknown Bisoprolol Fumarate 5mg Tablets Take 1 Tablet By Mouth Twice Daily as Directed Unknown Bisoprolol Fumarate 5mg Tablets Andre Diamond M.D. Anoro Ellipta 62.5-25mcg/Inh Aerosol Reason Andre Erazo Anoro Ellipta 62.5-25mcg/Inh Aeros ol Inhale 1 puff By Mouth Once Daily as Directed Un known Vitamin D (Ergocalciferol) 1.25mg (09434 Ut) Capsules Take 1 Capsule By Mouth Once A Week For 6 Weeks Unknown Hydralazine HCL 25mg Tablets Take 1 Tablet By Mouth Twice Daily Unknown Fluticasone Propionate 50mcg/Act Suspension Use 1 To 2 [place](S) In Each Nostril Once Daily as Directed Unknown Atorvastatin Calcium 80mg Tablets Unknown Atorvastatin Calcium 80mg Tablets Take 1 Tablet By Mouth Once Daily Unknown Carvedilol 12.5mg Tablets Take 1 Tablet By Mouth Twice Daily Unknown Carvedilol 12.5mg Tablets Unknown Atorvastatin Calcium 40mg Tablets Andre Diamond M.D.. Atorvastatin Calcium 40mg Tablets Take 1 Tablet By Mouth Once Daily AT Bedtime as Directed Unknown Freestyle Lite Test Strips Use To Check Before Meals And Sleep (Four Times Daily ) Unkno wn Potassium Chloride ER 10Meq Tablet s ER Take 1 Tablet By Mouth Twice Daily as Directed U nknown Potassium Chloride ER 10Meq Tablets ER Andre Diamond M.D. Trelegy Ellipta 100- 62.5-25mcg/Inh Aerosol Inhale 1 puff Once Daily. Discontinue Anora Unknown Ropinirole HCL 1mg Tablets Take 2 Tablets By Mouth In The Morning And 2 In The Evening as Directed Unknown Ropinirole HCL 1mg Tablets Andre Diamond M.D. Omeprazole 40mg Capsules DR Take 1 Capsule By Mouth Once Daily In The Morning as Directed U nknown Omeprazole 40mg Capsules Andre Pool M.D. Carvedilol 25mg Tablets Take 1 Tablet By Mouth Twice Daily as Directed Unknown Carvedilol 25mg Tablets Andre Diamond M.D. Xarelto 15mg Tablets George Minor M.D Xarelto 15mg Tablets Take 1 Tablet By Mouth Every Day AT Bedtime Unknown Torsemide 100mg Tablets Take 1 & 1 2 (One & One Half) Tablets By Mouth Once Daily as Directed Unknown Torsemide 100mg Tablets Andre Diamond M.D. Ofloxacin (Ophthalmic) 0.3% Solution Unknown Trelegy Ellipta 100- 62.5-25mcg/Inh Aerosol Andre Diamond M.D. Sertraline HCL 50mg Tablets Andre Diamond M.D. Sertraline HCL 50mg Tablets Take 2 Tablets By Mouth Once Daily AT Night AT 8PM as Directed Unknown Isosorbide Dinitrate 20mg Tablets Andre Diamond M.D. Isosorbide Dinitrate 20mg Tablets Take 1 Tablet By Mouth Three Times Daily as Directed Un known Clopidogrel Bisulfate 75mg Tablets Take 1 Tablet By Mouth Once Daily Unknown Clopidogrel Bisulfate 75mg Tablets Andre Diamond M.D. Calcitriol 0.25mcg Capsules Take 1 Capsule By Mouth Once Daily Unknown Calcitriol 0.25mcg Capsules Tristen Camacho MD BD Pen Needle/Hansa/Ultra -Fine/32G X 4mm 32G X 4 mm Misc Unknown Spironolactone 25mg Tablets Angelika Barros M.D. Furosemide 20mg Tablets Take 2 Tablets By Mouth Twice Daily Unknown Furosemide 20mg Tablets Papo Erazo, Angelika Levofloxacin 500mg Tablets TORIN Caballero Levofloxacin 500mg Tablets Take 1 Tablet By Mouth Once Daily Unknown Tramadol HCL 50mg Tablets Rosemarie Yuan M.D. Tramadol HCL 50mg Tablets Take 1 Tablet By Mouth Every 6 Hours as Needed For Moderate Pain (Pain Scale 5 7)Max Daily Dose 4 Tablets Unknown Clindamycin HCL 150mg Capsules Rosemarie Yuan M.D. Clindamycin HCL 150mg Capsules Take 1 Capsule By Mouth 4 Times Daily Unknown 0 Spironolactone 25mg Tablets Take 1 Tablet By Mouth Once Daily Unknown Humulin R U-500 Kwikpen 500Unit/ML Solution Pen-Inject Unknown Ferrous Gluconate 324(38Fe) mg Tab lets Take 1 Tablet By Mouth Twice Daily Unknown Amlodipine Besylate 10mg Tablets Reason M.D.,Edward L. Amlodipine Besylate 10mg Tablets Take 1 Tablet By Mouth Once Daily Unknown Levofloxacin 250mg Tablets Ray M.DBoyd, Angelika Cefdinir 300mg Capsules Ray M.Pipo, Angelika Freestyle Lite Test Strips Unknown BD Pen Needle/Hansa 2ND Gen/32G X 5/32" 32G X 4 mm Misc Unknown Ofloxacin (Ophthalmic) 0.3% Soluti on Instill 1 Drop Into Affected Eye 4 Times Daily as Directed. Start Immediately. Use For 4 Days Then Stop Save Drops For Next Treatment Unknown Immunizations Description No Information Available Vital Signs Description No Information Available Results Description No Information Available Procedures Date Code Description Status 03/13/2021 33016 Debridement 6-10 Nails Electric Completed 03/13/2021 67044 Paring/Cutting Benign Single Les n Completed 01/02/2021 37672 Debridement 6-10 Nails Electric Completed 01/02/2021 03197 Paring/Cut Benign Lesion 2 To 4 Completed Medical Devices Description No Information Available Encounters Description No Information Available Assessments Date Code Description Provider 03/13/2021 B35.1 Tinea unguium Ramiro Will, TORIN 03/13/2021 E11.42 Type 2 diabetes mellitus with di abetic polyneuropathy Ramiro Will, TORIN 03/13/2021 L84 Corns and callosities Ramiro Will, TORIN 01/02/2021 B35.1 Tinea unguium Ramiro WillTORIN 01/02/2021 E11.42 Type 2 diabetes mellitus with di abetic polyneuropathy Ramiro Will DPM 01/02/2021 L84 Corns and callosities Ramiro Will DPM Plan of Treatment Future Appointment(s):* 07/05/2021 1:45 pm - Ramiro Will DPM at [facility] Functional Status Description No Information Available Mental Status Description No Information Available Referrals Description No Information Available
--- OUTSIDE RECORDS SUMMARY | 2021-06-29 16:19 | CCD | Continuity of Care Document ---
Author Author Oxana LIN MD Organization Unknown Address [address] [facility], [address] [place] [address] Phone [phone] Care Team Providers Care Hardness Inspector Name Role Phone Andre Diamond D.O. AUTM [phone] Tristen Camacho M.D. AUTM [phone] George Minor M.D. AUTM [phone] AUTM Unavailable AUTM Unavailable Problems Active Problems [...] lb BMI (Body Mass Index) 35.5 kg/m2 [place] Body Weight 105 lb Weight 85.334 kg BSA (Body Surface Area) 1.84 m2 04/30/2021 3:12pm BP Systolic 137 mmHg BP Diastolic 73 mmHg Heart Rate 88 /min Body Temperature 98.3 F Height 61 inches 5'1" Weight 188.38 lb BMI (Body Mass Index) 35.6 kg/m2 [place] Body Weight 105 lb Weight 85.447 kg BSA (Body Surface Area) 1.84 m2 Results Test Acquired Date Facility Test Result H/L Range Note Laboratory test finding 02/14/2021 [facility] Lab [address] [place], [place] [address] [phone] Non Account Manager Trainee/Cytology Req For Servi (SEE NOTE) 1 Laboratory test finding 02/14/2021 [facility] [address] [place], [place] [address] [phone] Non Account Manager Trainee/Cytology Req For Servi (SEE NOTE) 2 1 [...] 02/15/2021 1053 Procedures Date Code Description Status 06/18/2021 56555 Office/Outpatient Established Lo w MDM 20-29 Min Completed 04/30/2021 50636 Office/Outpatient Established Lo w MDM 20-29 Min Completed 01/23/2021 87067 Office/Outpatient New Low MDM 30 -44 Minutes Completed Medical Devices Description No Information Available Encounters Type Date Location Provider Dx Diagnosis Office Visit 06/18/2021 3:00p [facility] Jose David Lin MD N18.6 End stage renal disease Office Visit 04/30/2021 3:00p [facility] Surgery Practice Jose David Lin MD N18.6 End stage renal disease Office Visit 01/23/2021 9:30a [facility] ENT Practice Catrachito Beckwith MD E04.2 Nontoxic multinodular goiter Office Visit 01/11/2021 9:15a [facility] Practice Cydney miner MD Z48.812 Encntr for surgical aftcr following surg lisa on the circ sys Office Visit 12/25/2020 9:15a [facility] Practice BERTA Sofia N18.4 Chronic kidney disease, stage 4 (severe) Z48.812 Encntr for surgical aftcr fo llowing surgery on the circ sys Assessments Date Code Description Provider 06/18/2021 N18.6 End stage renal disease Jose David newberry MD 04/30/2021 N18.6 End stage renal disease Jose [...] MD EVAL AV FISULTA Scheduled 04/30/2021 [address] [facility] [address] [place] [address] [phone] Catrachito Beckwith MD 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
--- OUTSIDE RECORDS SUMMARY | 2021-06-29 16:19 | CCD | Continuity of Care Document ---
Author Author Oxana ESCOTO P.CBoyd Organization Unknown Address [address] [place] [address] Phone [phone] Care Team Providers Care Ecology Professor Name Role Phone Lobo, Andre Erazo AUTM [phone] GEORGE MINOR M.D. P.C. AUTM [phone] Social History Type Date Description Comments Sex Unknown Allergies, Adverse Reactions, Alerts Active Allergies Criticality Reaction | Severity Comments Date Penicillin V Unable to assess criticality 06/02/2020 Medications Active Medications SIG Qnty Indications Ordering Provide r Date Xarelto 2.5mg Tablets 1 tab every day at bedtime 90tabs George [facility] 021 Carvedilol 12.5mg Tablets Take One Tablet By Mouth Twice Daily George Minor [facility] Hydroxyzine HCL 10mg Tablets Take One Tablet By Mouth as Needed Three Times Daily For Anxiety George Minor M[facility] 02/26/2021 Atorvastatin Calcium 40mg Tablets 1 by mouth every day 90tabs George Minor [facility] 021 Calcitriol 0.25mcg Capsules George Minor M.D[facility] 12/04/2020 Tramadol HCL 50mg Tablets George Minor M.D[facility] 12/04/2020 Cyclobenzaprine HCL 10mg Tablets George Minor M.D[facility] 12/04/2020 Trelegy Ellipta 100- 62.5-25mcg/Inh Aerosol inhale one puff by mouth every day 60units George Minor M.D[facility] 10/05/2020 Nitroglycerin 0.4mg/HR Patches 24H R Apply 1 Patch Topically Once Daily Remove AT Night For 10 To 12 Hours Unknown Tab-A-Kristine Tablets Take One Tablet By Mouth @8Am Unknown BD Pen Needle/Hansa/Ultra -Fine/32G X 4mm 32G X 4 mm Misc Use as Directed To Test Three Times Daily Unknown BD Pen Needle/Hansa/Ultra -Fine/32G X 4mm 32G X 4 mm Misc Use One Up To 6 Times Daily With Insulin Pens as Directed Unknown Vitamin D (Ergocalciferol) 1.25mg (96469 Ut) Capsules Take 1 Capsule By Mouth Once A Week For 6 Weeks Unknown Ropinirole HCL 1mg Tablets Take 2 Tablet By Mouth Twice Daily as Directed In The Am And AT 730 PM Unknown Torsemide 100mg Tablets 1/2 T ab Daily Kiya Velasquez FRUIT PACKER FACE AND FILL Freestyle Lite Test Strips Use To Check Before Meals And Sleep (Four Times Daily ) Unkno wn Freestyle Lite Test Strips Unknown Omeprazole 40mg Capsules DR Take 1 Capsule By Mouth Once Daily In The Morning as Directed U nknown Potassium Chloride ER 10Meq Tablet s ER Take One Tablet By Mouth Daily Andre Diamond Fluticasone Propionate 50mcg/Act Suspension Use 1 To 2 [place](S) In Each Nostril Once Daily as Directed Unknown Clopidogrel Bisulfate 75mg Tablets Take 1 Tablet By Mouth Once Daily Unknown Sertraline HCL 50mg Tablets Take 2 Tablets By Mouth Every Evening AT 8PM as Directed Unknow n Ferrous Gluconate 324(38Fe) mg Tab lets Take 1 Tablet By Mouth Twice Daily Unknown BD Pen Needle/Hansa/Ultra -Fine/32G X 4mm 32G X 4 mm Misc Unknown Humulin R U-500 Kwikpen 500Unit/ML Solution Pen-Inject Unknown Vital Signs Date Vital Result Comment 05/10/2021 1:58pm Height 61 inches 5'1" Weight 189.00 lb BMI (Body Mass Index) 35.7 kg/m2 Body Temperature 97.3 F BP Systolic 132 mmHg BP Diastolic 73 mmHg Heart Rate 80 /min O2 % BldC Oximetry 97 % 02/26/2021 3:52pm Height 61 inches 5'1" Weight 186.38 lb BMI (Body Mass Index) 35.2 kg/m2 Body Temperature 97.9 F BP Systolic 140 mmHg BP Diastolic 71 mmHg Heart Rate 96 /min O2 % BldC Oximetry 99 % Respiratory Rate 18 /min Procedures Date Code Description Status 05/10/2021 21569 Office/Outpatient Established Mo d MDM 30-39 Min Completed 05/10/2021 41496 EKG Completed 02/26/2021 62429 Office/Outpatient Established Mo d MDM 30-39 Min Completed 02/26/2021 92335 EKG Completed 02/05/2021 84178 Office/Outpatient Established Mo d MDM 30-39 Min Completed 12/04/2020 38879 Office/Outpatient Established Mo d MDM 30-39 Min Completed 12/04/2020 87650 Echocardiogram, Complete Complet ed 12/04/2020 06515 EKG Completed Encounters Type Date Location Provider Dx Diagnosis Office Visit 05/10/2021 1:30p [facility] Kye Minor M[facility] .[facility] I11.9 Hypertensive heart disease without heart failure I48.0 Paroxysmal atrial fibrillati on Z95.5 Presence of coronary angiopl asty implant and graft I49.49 Other premature depolarizati on Office Visit 02/26/2021 4:00p [facility] Kye [facility] R07.9 Chest pain, unspecified J43.9 Emphysema, unspecified E78.5 Hyperlipidemia, unspecified I49.49 Other premature depolarizati on Office Visit 02/05/2021 1:45p [facility] Kye [facility] I50.20 Unspecified systolic (congestive) heart failure E10.9 Type 1 diabetes mellitus wit hout complications I11.9 Hypertensive heart disease w ithout heart failure I35.0 Nonrheumatic aortic (valve) stenosis Office Visit 12/04/2020 1:15p [facility] George [facility] I11.9 Hypertensive heart disease without heart failure I48.0 Paroxysmal atrial fibrillati on E11.9 Type 2 diabetes mellitus wit hout complications Z01.810 Encounter for preprocedural cardiovascular examination I49.49 Other premature depolarizati on I35.0 Nonrheumatic aortic (valve) stenosis Assessments Date Code Description Provider 05/10/2021 I11.9 Hypertensive heart disease witho wv heart failure George [facility] 05/10/2021 I48.0 Paroxysmal atrial fibrillation Valentina Minor M[facility] 05/10/2021 Z95.5 Presence of coronary angioplasty implant and graft George [facility] 05/10/2021 I49.49 Other premature depolarization Valentina [facility] 02/26/2021 R07.9 Chest pain, unspecified George moore M.D[facility] 02/26/2021 J43.9 Emphysema, unspecified George ramirez M.D., [facility] 02/26/2021 E78.5 Hyperlipidemia, unspecified Jose Minor M.D[facility] 02/26/2021 I49.49 Other premature depolarization Valentina [facility] 02/05/2021 I50.20 Unspecified systolic (congestive ) heart failure George [facility] M.[facility] 02/05/2021 E10.9 Type 1 diabetes mellitus without complications George [facility] 02/05/2021 I11.9 Hypertensive heart disease witho wv heart failure George [facility] 02/05/2021 I35.0 Nonrheumatic aortic (valve) sten osshana Minor M.D[facility] 12/04/2020 I11.9 Hypertensive heart disease witho wv heart failure George [facility] 12/04/2020 I48.0 Paroxysmal atrial fibrillation Valentina Minor M.D[facility] 12/04/2020 E11.9 Type 2 diabetes mellitus without complications George [facility] 12/04/2020 Z01.810 Encounter for preprocedural card iovascular examination George [facility] 12/04/2020 I49.49 Other premature depolarization Valentina Minor M.D[facility] 12/04/2020 I35.0 Nonrheumatic aortic (valve) sten osis George [facility] Plan of Treatment Future Appointment(s):* 07/09/2021 1:30 pm - [facility] at [facility]
--- OUTSIDE RECORDS SUMMARY | 2021-06-29 16:19 | CCD | Continuity of Care Document ---
Author Author Oxana WILL DPValentina Organization Unknown Address [address] [place] [address], [address] [place] [address] Phone [phone] Care Team Providers Care Assistant Professor Of Sociology Name Role Phone Andre Diamond M.D. AUTM [phone] Vito Lucero M.D. AUTM [phone] Problems Active Problems Provider Date Type 2 [...] Directed Un known Vitamin D (Ergocalciferol) 1.25mg (96841 Ut) Capsules Take 1 Capsule By Mouth Once A Week For 6 Weeks Unknown Hydralazine HCL 25mg Tablets Take 1 Tablet By Mouth Twice Daily Unknown Fluticasone Propionate 50mcg/Act Suspension Use 1 To 2 [place](S) In Each Nostril Once Daily as Directed [...] Available Procedures Date Code Description Status 03/13/2021 50826 Debridement 6-10 Nails Electric Completed 03/13/2021 70520 Paring/Cutting Benign Single Les n Completed 01/02/2021 08599 Debridement 6-10 Nails Electric Completed 01/02/2021 15438 Paring/Cut Benign Lesion 2 To 4 Completed [...] 1:45 pm - Ramiro Will DPM at [facility] Functional Status Description No Information Available Mental Status Description No Information Available Referrals Description No Information Available
--- OUTSIDE RECORDS SUMMARY | 2021-06-29 16:19 | CCD | Continuity of Care Document ---
Author Author Oxana ESCOTO P.CBoyd Organization Unknown Address [address] [place] [address] Phone [phone] Care Team Providers Care Stage Set Up Worker Name Role Phone Lobo, Andre Erazo AUTM [phone] GEORGE MINOR M.D. P.C. AUTM [phone] Social History Type Date Description Comments Sex [...] as Directed Unknown Vitamin D (Ergocalciferol) 1.25mg (54071 Ut) Capsules Take 1 Capsule By Mouth Once A Week For 6 Weeks Unknown Ropinirole HCL 1mg Tablets Take 2 Tablet By Mouth Twice Daily as Directed In The Am And AT 730 PM Unknown Torsemide 100mg Tablets 1/2 T ab Daily Kiya Velasquez ELECTRICAL TESTER Freestyle Lite Test Strips Use To Check Before Meals And Sleep (Four Times Daily ) Unkno wn Freestyle Lite Test Strips Unknown Omeprazole 40mg Capsules DR Take 1 Capsule By Mouth Once Daily In The Morning as Directed U nknown Potassium Chloride ER 10Meq Tablet s ER Take One Tablet By Mouth Daily Andre Diamond Fluticasone Propionate 50mcg/Act Suspension Use 1 To 2 [place](S) In Each Nostril Once Daily as Directed [...] 18 /min Procedures Date Code Description Status 02/26/2021 30795 Office/Outpatient Established Mo d MDM 30-39 Min Completed 02/26/2021 19201 EKG Completed 02/05/2021 27868 Office/Outpatient Established Mo d MDM 30-39 Min Completed 12/04/2020 02302 Office/Outpatient Established Mo d MDM 30-39 Min Completed 12/04/2020 95255 Echocardiogram, Complete Complet ed 12/04/2020 82356 EKG Completed Encounters Type Date Location Provider Dx Diagnosis Office Visit 02/26/2021 4:00p [facility] George [facility] R07.9 Chest pain, unspecified J43.9 Emphysema, unspecified E78.5 Hyperlipidemia, unspecified I49.49 Other premature depolarizati on Office Visit 02/05/2021 1:45p [facility] George [facility] I50.20 Unspecified systolic (congestive) heart failure E10.9 Type 1 diabetes mellitus wit hout complications I11.9 Hypertensive heart disease w [facility] heart failure I35.0 Nonrheumatic aortic (valve) stenosis Office Visit 12/04/2020 1:15p [facility] George [facility] I11.9 Hypertensive heart disease without heart failure I48.0 Paroxysmal atrial fibrillati on E11.9 Type 2 diabetes mellitus wit hout complications Z01.810 Encounter for preprocedural cardiovascular examination I49.49 Other premature depolarizati on I35.0 Nonrheumatic aortic (valve) stenosis Assessments Date Code Description Provider 02/26/2021 R07.9 Chest pain, unspecified George As hrafCastro, [facility] 02/26/2021 J43.9 Emphysema, unspecified George ramirez M.D[facility] 02/26/2021 E78.5 Hyperlipidemia, unspecified Jose Minor M[facility] 02/26/2021 I49.49 Other premature depolarization Valentina Minor M.[facility] 02/05/2021 I50.20 Unspecified systolic (congestive ) heart failure George Minor [facility] 02/05/2021 E10.9 Type 1 diabetes mellitus without complications George [facility] 02/05/2021 I11.9 Hypertensive heart disease witho ak heart failure George Minor [facility] 02/05/2021 I35.0 Nonrheumatic aortic (valve) sten jeffrey Minor M.D[facility] 12/04/2020 I11.9 Hypertensive heart disease witho ak heart failure George Minor M[facility] 12/04/2020 I48.0 Paroxysmal atrial fibrillation Valentina Minor M.D[facility] 12/04/2020 E11.9 Type 2 diabetes mellitus without complications George Minor M[facility] 12/04/2020 Z01.810 Encounter for preprocedural card iovascular examination George Minor [facility] 12/04/2020 I49.49 Other premature depolarization Valentina Minor [facility] 12/04/2020 I35.0 Nonrheumatic aortic (valve) sten jeffrey Minor M.D[facility] Plan of Treatment Future Appointment(s):* 07/09/2021 1:30 pm - [facility]
--- OUTSIDE RECORDS SUMMARY | 2021-06-29 16:20 | CCD | Continuity of Care Document ---
Author Author Oxana LIN MD Organization Unknown Address [address], [address] [place] [address] Phone [phone] Care Team Providers Care Community Engagement Leader Name Role Phone Lobo, Andre Muir AUTM [phone] Tristen Camacho M.D. AUTM [phone] George Minor M.D. AUTM [phone] AUTM Unavailable AUTM Unavailable Problems Active Problems Provider Date Allergic asthma without status asthmaticus Narendra Weinberg M.D. Onset: 10/10/2017 Essential hypertension Narendra Weinberg M.D. Onset: 018 Social History Type Date Description Comments Sex Unknown ETOH Use Rarely Tobacco Use Start: Unknown Denies Smoking Recreational Drug Use Denies Drug Use Smoking Status Reviewed: 09/05/20 Denies Smoking Allergies, Adverse Reactions, Alerts Active Allergies Criticality [...] 25mg Tablets twice a day 60tabs Reason, Nikki Powell. Isosorbide Dinitrate 20mg Tablets Take 1 Tablet [...] 50mg Tablets 2 every night 30tabs Reason, Nikki Powell. Ropinirole HCL 1mg Tablets 2 qam And 2 QHS Reason, Nikki Powell. Omeprazole 40mg Capsules DR every day 90caps Reason, Nikki Powell. Atorvastatin Calcium 40mg Tablets every day 90tabs Reason, Isadora Powell Klor-Con M10 10Meq Tablets ER once a day 60tabs Reason, Nikki Powell. Immunizations Description No Information Available Vital Signs Date Vital Result Comment 04/30/2021 3:12pm BP Systolic 137 mmHg BP Diastolic 73 mmHg Heart Rate 88 /min Body Temperature 98.3 F Height 61 inches 5'1" Weight 188.38 lb BMI (Body Mass Index) 35.6 kg/m2 [place] Body Weight 105 lb Weight 85.447 kg BSA (Body Surface Area) 1.84 m2 01/23/2021 9:51am Height 61 inches 5'1" Weight 198.00 lb BMI (Body Mass Index) 37.4 kg/m2 [place] Body Weight 105 lb Weight 89.813 kg BSA (Body Surface Area) 1.88 m2 Results Test Acquired Date Facility Test Result H/L Range Note Laboratory test finding 02/14/2021 [facility] Main [facility] [address], [place] [id number] [phone] Non Apprentice Architect/Cytology Req For Servi (SEE NOTE) 1 Laboratory test finding 02/14/2021 [facility] [address] [place] [address] [phone] Non Apprentice Architect/Cytology Req For Servi (SEE NOTE) 2 Laboratory test finding 12/15/2020 [facility] [address], [place] [id number] [phone] Bedside Glucose 165 mg/dL High 80-115 Basic Metabolic Profile 12/15/2020 [facility] [address], [place] [id number] [phone] Glucose, Fasting 94 mg/dL Normal 70-100 Blood Urea Nitrogen 53 mg/dL High 7-18 Creatinine For GFR 2.72 mg/dL High 0.55-1.30 Glomerular Filtration Rate 18.6 Low >45 3 Sodium Level 138 mEq/L Normal 136-145 Potassium Serum 3.8 mEq/L Normal 3.5-5.1 Chloride Level 99 mEq/L Normal 98-107 Carbon Dioxide Level 29 mEq/L Normal 21-32 Anion Gap 10 mEq/L Normal 8-16 Calcium Level 9.7 mg/dL Normal 8.8-10.2 1 SPECIMEN: FNA Lef t thyroid Specimen [...] background of scattered lymphocytes and debris. COMMENTS: 02/15/2021 - 918 Signed MARIE RIOS(ASCP) 02/15/2021 09 (Prelim) Signed DORIAN TAI MD 02/15/2021 1053 3 Units are mL/min/1.73 m2 Chronic Kidney Disease Staging per NKF: Stage I & II GFR >=60 Normal to Mildly Decreased Stage III GFR 30-59 Moderately Decreased Stage IV GFR 15-29 Severely Decreased Stage V GFR <15 Very Little GFR Left ESRD GFR <15 on SPECTROSCOPIST Procedures Date Code Description Status 04/30/2021 73914 Office/Outpatient Established Lo w MDM 20-29 Min Completed 01/23/2021 24436 Office/Outpatient New Low MDM 30 -44 Minutes Completed 12/15/2020 44760 Av Fistula Artery-Vein Completed 11/09/2020 24176 Office/Outpatient Established Lo w MDM 20-29 Min Completed Medical Devices Description No Information Available Encounters Type Date Location Provider Dx Diagnosis Office Visit 04/30/2021 3:00p [facility] Jose David Lin MD N18.6 End stage renal disease Office Visit 01/23/2021 9:30a [facility] Catrachito Beckwith MD E04.2 Nontoxic multinodular goiter Office Visit 01/11/2021 9:15a [facility] Cydney miner MD Z48.812 Encntr for surgical aftcr following surg lisa on the circ sys Office Visit 12/25/2020 9:15a [facility] BERTA Sofia N18.4 Chronic kidney disease, stage 4 (severe) Z48.812 Encntr for surgical aftcr fo llowing surgery on the circ sys Office Visit 11/09/2020 11:30a [facility] Cydney miner MD N18.4 Chronic kidney disease, stage 4 (severe) Assessments Date Code Description Provider 04/30/2021 N18.6 [...] surgery on the circulatory system BERTA Bar 12/15/2020 N18.4 Chronic kidney disease, stage 4 (severe) Cydney Mitchell MD 11/09/2020 N18.4 Chronic kidney disease, stage 4 (severe) Cydney Mitchell MD Plan of Treatment No Information Available Functional Status Description No Information Available Mental Status Description No Information Available Referrals Refer to Dr Reason for Referral Status Appt Date Jose David Lin MD EVAL AV FISULTA Scheduled 04/30/2021 [address] [facility] [address] [place] [address] [phone] Catrachito Beckwith MD 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
--- OUTSIDE RECORDS SUMMARY | 2021-06-29 16:20 | CCD | Continuity of Care Document ---
Author Author Oxana LIN MD Organization Unknown Address [address] [facility] [facility], [address] [place] [address] Phone [phone] Care Team Providers Care Range Rider Name Role Phone Lobo, Andre Muir AUTM [phone] Tristen Camacho M.D. AUTM [phone] George Minor M.D. AUTM [phone] AUTM Unavailable AUTM Unavailable Problems Active Problems [...] lb BMI (Body Mass Index) 35.6 kg/m2 [place] [facility] Weight 105 lb Weight 85.447 kg BSA (Body Surface Area) 1.84 m2 01/23/2021 9:51am Height 61 inches 5'1" Weight 198.00 lb BMI (Body Mass Index) 37.4 kg/m2 [place] Body Weight 105 lb Weight 89.813 kg BSA (Body Surface Area) 1.88 m2 Results Test Acquired Date Facility Test Result H/L Range Note Laboratory test finding 02/14/2021 [facility] Main Lab [address] [place], [place] [id number] [phone] Non Hardware Design Engineer/Cytology Req For Servi (SEE NOTE) 1 Laboratory test finding 02/14/2021 [facility] [address] [place] [address] [phone] Non Hardware Design Engineer/Cytology Req For Servi (SEE NOTE) 2 Laboratory test finding 12/15/2020 [facility] [address] [place], [place] [address] [phone] Bedside Glucose 165 mg/dL High 80-115 Basic Metabolic Profile 12/15/2020 [facility] [address] [place], [place] [id number] [phone] Glucose, Fasting 94 mg/dL Normal 70-100 Blood [...] Little GFR Left ESRD GFR <15 on TEST EVALUATOR Procedures Date Code Description Status 04/30/2021 95619 Office/Outpatient Established Lo w MDM 20-29 Min Completed 01/23/2021 27164 Office/Outpatient New Low MDM 30 -44 Minutes Completed 12/15/2020 44021 Av Fistula Artery-Vein Completed 11/09/2020 75403 Office/Outpatient Established Lo w MDM 20-29 Min Completed Medical Devices Description No Information Available Encounters Type Date Location Provider Dx Diagnosis Office Visit 04/30/2021 3:00p [facility] Jose David Lin MD N18.6 End stage renal disease Office Visit 01/23/2021 9:30a [facility] Catrachito Beckwith MD E04.2 Nontoxic multinodular goiter Office Visit 01/11/2021 9:15a [facility] Cydney miner MD Z48.812 Encntr for surgical aftcr following surg lisa on the circ sys Office Visit 12/25/2020 9:15a [facility] BERTA Sofia N18.4 Chronic kidney disease, stage 4 (severe) Z48.812 Encntr for surgical aftcr fo llowing surgery on the circ sys Office Visit 11/09/2020 11:30a [facility] Cydney miner MD N18.4 [...] MD EVAL AV FISULTA Scheduled 04/30/2021 [address] [facility] [address] [place] [address] [phone] Catrachito Beckwith MD 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
--- OUTSIDE RECORDS SUMMARY | 2021-06-29 16:23 | CCD ---
Author Author [facility] Organization [facility] Address Unknown Phone Unavailable Care Team Providers Care Rn Nursery Name Role Phone CYALA SCHNEIDER Unavailable Unavailable HANNAH, A TREVOR PA Unavailable Unavailable HANNAH, A TREVOR PA Unavailable Unavailable HANNAH, A TREVOR PA Unavailable Unavailable HANNAH, A TREVOR PA Unavailable Unavailable HANNAH, A TREVOR PA Unavailable Unavailable HANNAH, A TREVOR PA Unavailable Unavailable HANNAH, A TREVOR PA Unavailable Unavailable HANNAH, A TREVOR PA Unavailable Unavailable HANNAH, A TREVOR PA Unavailable Unavailable HANNAH, A TREVOR PA Unavailable Unavailable HANNAH, A TREVOR PA Unavailable Unavailable HANNAH, A TREVOR PA Unavailable Unavailable HANNAH, A TREVOR PA Unavailable Unavailable Andi QUEZADA MD Unavailable Unavailable Andi QUEZADA MD Unavailable Unavailable Andi QUEZADA MD Unavailable Unavailable Andi QUEZADA MD Unavailable Unavailable Andi QUEZADA MD Unavailable Unavailable Andi QUEZADA MD Unavailable Unavailable Andi QUEZADA MD Unavailable Unavailable Andi QUEZADA MD Unavailable Unavailable Andi QUEZADA MD Unavailable Unavailable Daria MARTINEZ MD Unavailable Unavailable Daria MARTINEZ MD Unavailable Unavailable Daria MARTINEZ MD Unavailable Unavailable Daria MARTINEZ MD Unavailable Unavailable Daria MARTINEZ MD Unavailable Unavailable Daria MARTINEZ MD Unavailable Unavailable Daria MARTINEZ MD Unavailable Unavailable MAGALI, J ELISABETH DPM PC Unavailable Unavailable MAGALI, J ELISABETH DPM PC Unavailable Unavailable MAGALI, J ELISABETH DPM PC Unavailable Unavailable MAGALI, J ELISABETH DPM PC Unavailable Unavailable MAGALI, J ELISABETH DPM PC Unavailable Unavailable MAGALI, J ELISABETH DPM PC Unavailable Unavailable MAGALI, J ELISABETH DPM PC Unavailable Unavailable MAGALI, J ELISABETH DPM PC Unavailable Unavailable MAGALI, J ELISABETH DPM PC Unavailable Unavailable MAGALI, J ELISABETH DPM PC Unavailable Unavailable MAGALI, J ELISABETH DPM PC Unavailable Unavailable MAGALI, J ELISABETH DPM PC Unavailable Unavailable MAGALI, J ELISABETH DPM PC Unavailable Unavailable MAGALI, J ELISABETH DPM PC Unavailable Unavailable MAGALI, J ELISABETH DPM PC Unavailable Unavailable MAGALI, J ELISABETH DPM PC Unavailable Unavailable MAGALI, J ELISABETH DPM PC Unavailable Unavailable MAGALI, J ELISABETH DPM PC Unavailable Unavailable MAGALI, J ELISABETH DPM PC Unavailable Unavailable MAGALI, J ELISABETH DPM PC Unavailable Unavailable MAGALI, J ELISABETH DPM PC Unavailable Unavailable MAGALI, J ELISABETH DPM PC Unavailable Unavailable MAGALI, J ELISABETH DPM PC Unavailable Unavailable MAGALI, J ELISABETH DPM PC Unavailable Unavailable MAGALI, J ELISABETH DPM PC Unavailable Unavailable MAGALI, J ELISABETH DPM PC Unavailable Unavailable MAGALI, J ELISABETH DPM PC Unavailable Unavailable MAGALI, J ELISABETH DPM PC Unavailable Unavailable Rishi DUNHAM MD Unavailable Unavailable Rishi DUNHAM MD Unavailable Unavailable Rishi DUNHAM MD Unavailable Unavailable Rishi DUNHAM MD Unavailable Unavailable Rishi DUNHAM MD Unavailable Unavailable Rishi DUNHAM MD Unavailable Unavailable Rsihi DUNHAM MD Unavailable Unavailable Rishi DUNHAM MD Unavailable Unavailable Rishi DUNHAM MD Unavailable Unavailable Rishi DUNHAM MD Unavailable Unavailable Rishi DUNHAM MD Unavailable Unavailable Rishi DUNHAM MD Unavailable Unavailable Rishi DUNHAM MD Unavailable Unavailable Rishi DUNHAM MD Unavailable Unavailable Rishi DUNHAM MD Unavailable Unavailable Rihsi DUNHAM MD Unavailable Unavailable Rishi DUNHAM MD Unavailable Unavailable Rishi DUNHAM MD Unavailable Unavailable Rishi DUNHAM MD Unavailable Unavailable Rishi DUNHAM MD Unavailable Unavailable Rishi DUNHAM MD Unavailable Unavailable Rishi DUNHAM MD Unavailable Unavailable Rishi DUNHAM MD Unavailable Unavailable Rishi DUNHAM MD Unavailable Unavailable Rishi DUNHAM MD Unavailable Unavailable Rishi DUNHAM MD Unavailable Unavailable LIDA MENDEZ MD Unavailable Unavailable LIDA MENDEZ MD Unavailable Unavailable LIDA MENDEZ MD Unavailable Unavailable LIDA MENDEZ MD Unavailable Unavailable LIDA MENDEZ MD Unavailable Unavailable LIDA MENDEZ MD Unavailable Unavailable LIDA MENDEZ MD Unavailable Unavailable LIDA MENDEZ MD Unavailable Unavailable LIDA MENDEZ MD Unavailable Unavailable AMARA BOCANEGRA MD Unavailable Unavailable AMARA BOCANEGRA MD Unavailable Unavailable AMARA BOCANEGRA MD Unavailable Unavailable AMARA BOCANEGRA MD Unavailable Unavailable AMARA BOCANEGRA MD Unavailable Unavailable AMARA BOCANEGRA MD Unavailable Unavailable AMARA BOCANEGRA MD Unavailable Unavailable AMARA BOCANEGRA MD Unavailable Unavailable AMARA BOCANEGRA MD Unavailable Unavailable CHIRAG, MAQBOOL GEORGE MD Unavailable Unavailable CHIRAG, MAQBOOL GEORGE MD Unavailable Unavailable CHIRAG, MAQBOOL GEORGE MD Unavailable Unavailable CHIRAG, MAQBOOL GEORGE MD Unavailable Unavailable CHIRAG, MAQBOOL GEORGE MD Unavailable Unavailable CHIRAG, MAQBOOL GEORGE MD Unavailable Unavailable CHIRAG, MAQBOOL GEORGE MD Unavailable Unavailable CHIRAG, MAQBOOL GEORGE MD Unavailable Unavailable CHIRAG, MAQBOOL GEORGE MD Unavailable Unavailable CHIRAG, MAQBOOL GEORGE MD Unavailable Unavailable CHIRAG, MAQBOOL GEORGE MD Unavailable Unavailable CHIRAG, MAQBOOL GEORGE MD Unavailable Unavailable CHIRAG, MAQBOOL GEORGE MD Unavailable Unavailable CHIRAG, MAQBOOL GEORGE MD Unavailable Unavailable CHIRAG, MAQBOOL GEORGE MD Unavailable Unavailable CHIRAG, MAQBOOL GEORGE MD Unavailable Unavailable CHIRAG, MAQBOOL GEORGE MD Unavailable Unavailable CHIRAG, MAQBOOL GEORGE MD Unavailable Unavailable CHIRAG, MAQBOOL GEORGE MD Unavailable Unavailable CHIRAG, MAQBOOL GEORGE MD Unavailable Unavailable CHIRAG, MAQBOOL GEORGE MD Unavailable Unavailable CHIRAG, MAQBOOL GEORGE MD Unavailable Unavailable CHIRAG, MAQBOOL GEORGE MD Unavailable Unavailable CHIRAG, MAQBOOL GEORGE MD Unavailable Unavailable CHIRAG, MAQBOOL GEORGE MD Unavailable Unavailable CHIRAG, MAQBOOL GEORGE MD Unavailable Unavailable CHIRAG, MAQBOOL GEORGE MD Unavailable Unavailable CHIRAG, MAQBOOL GEORGE MD Unavailable Unavailable CHIRAG, MAQBOOL GEORGE MD Unavailable Unavailable CHIRAG, MAQBOOL GEORGE MD Unavailable Unavailable CHIRAG, MAQBOOL GEORGE MD Unavailable Unavailable CHIRAG, MAQBOOL GEORGE MD Unavailable Unavailable CHIRAG, MAQBOOL GEORGE MD Unavailable Unavailable CHIRAG, MAQBOOL GEORGE MD Unavailable Unavailable CHIRAG, MAQBOOL GEORGE MD Unavailable Unavailable CHIRAG, MAQBOOL GEORGE MD Unavailable Unavailable CHIRAG, MAQBOOL GEORGE MD Unavailable Unavailable CHIRAG, MAQBOOL GEORGE MD Unavailable Unavailable CHIRAG, MAQBOOL GEORGE MD Unavailable Unavailable CHIRAG, MAQBOOL GEORGE MD Unavailable Unavailable CHIRAG, MAQBOOL GEORGE MD Unavailable Unavailable CHIRAG, MAQBOOL GEORGE MD Unavailable Unavailable CHIRAG, MAQBOOL GEORGE MD Unavailable Unavailable CHIRAG, MAQBOOL GEORGE MD Unavailable Unavailable CHIRAG, MAQBOOL GEORGE MD Unavailable Unavailable CHIRAG, MAQBOOL GEORGE MD Unavailable Unavailable CHIRAG, MAQBOOL GEORGE MD Unavailable Unavailable CHIRAG, MAQBOOL GEORGE MD Unavailable Unavailable CHIRAG, MAQBOOL GEORGE MD Unavailable Unavailable CHIRAG, MAQBOOL GEORGE MD Unavailable Unavailable CHIRAG, MAQBOOL GEORGE MD Unavailable Unavailable CHIRAG, MAQBOOL GEORGE MD Unavailable Unavailable CHIRAG, MAQBOOL GEORGE MD Unavailable Unavailable CHIRAG, MAQBOOL GEORGE MD Unavailable Unavailable CHIRAG, MAQBOOL GEORGE MD Unavailable Unavailable CHIRAG, MAQBOOL GEORGE MD Unavailable Unavailable CHIRAG, MAQBOOL GEORGE MD Unavailable Unavailable CHIRAG, MAQBOOL GEORGE MD Unavailable Unavailable CHIRAG, MAQBOOL GEORGE MD Unavailable Unavailable CHIRAG, MAQBOOL GEORGE MD Unavailable Unavailable CHIRAG, MAQBOOL GEORGE MD Unavailable Unavailable CHIRAG, MAQBOOL GEORGE MD Unavailable Unavailable CHIRAG, MAQBOOL GEORGE MD Unavailable Unavailable CHIRAG, MAQBOOL GEORGE MD Unavailable Unavailable CHIRAG, MAQBOOL GEORGE MD Unavailable Unavailable CHIRAG, MAQBOOL GEORGE MD Unavailable Unavailable CHIRAG, MAQBOOL GEORGE MD Unavailable Unavailable CHIRAG, MAQBOOL GEORGE MD Unavailable Unavailable CHIRAG, MAQBOOL GEORGE MD Unavailable Unavailable CHIRAG, MAQBOOL GEORGE MD Unavailable Unavailable CHIRAG, MAQBOOL GEORGE MD Unavailable Unavailable CHIRAG, MAQBOOL GEORGE MD Unavailable Unavailable CHIRAG, MAQBOOL GEORGE MD Unavailable Unavailable CHIRAG, MAQBOOL GEORGE MD Unavailable Unavailable CHIRAG, MAQBOOL GEORGE MD Unavailable Unavailable CHIRAG, MAQBOOL GEORGE MD Unavailable Unavailable CHIRAG, MAQBOOL GEORGE MD Unavailable Unavailable CHIRAG, MAQBOOL GEORGE MD Unavailable Unavailable TURRIN, IRON Unavailable Unavailable TURRIN, IRON Unavailable Unavailable TURRIN, IRON Unavailable Unavailable TURRIN, IRON Unavailable Unavailable Asif, L Arlene RPA Unavailable Unavailable Asif, L Arlene RPA Unavailable Unavailable Asif, L Arlene RPA Unavailable Unavailable Asif, L Arlene RPA Unavailable Unavailable Asif, L Arlene RPA Unavailable Unavailable Asif, L Arlene RPA Unavailable Unavailable Asif, L Arlene RPA Unavailable Unavailable Asif, L Arlene RPA Unavailable Unavailable Asif, L Arlene RPA Unavailable Unavailable Asif, L Arlene RPA Unavailable Unavailable Asif, L Arlene RPA Unavailable Unavailable Asif, L Arlene RPA Unavailable Unavailable Asif, L Arlene RPA Unavailable Unavailable Asif, L Arlene RPA Unavailable Unavailable Asif, L Arlene RPA Unavailable Unavailable Asif, L Arlene RPA Unavailable Unavailable Asif, L Arlene RPA Unavailable Unavailable Asif, L Arlene RPA Unavailable Unavailable Asif, L Arlene RPA Unavailable Unavailable Asif, L Arlene RPA Unavailable Unavailable Asif, L Arlene RPA Unavailable Unavailable Asif, L Arlene RPA Unavailable Unavailable Asif, L Arlene RPA Unavailable Unavailable Asif, L Arlene RPA Unavailable Unavailable Asif, L Arlene RPA Unavailable Unavailable Asif, L Arlene RPA Unavailable Unavailable Asif, L Arelne RPA Unavailable Unavailable Asif, L Arlene RPA Unavailable Unavailable Asif, L Arlene RPA Unavailable Unavailable Asif, L Arlene RPA Unavailable Unavailable Asif, L Arlene RPA Unavailable Unavailable Asif, L Arlene RPA Unavailable Unavailable Andi You Dilip PA Unavailable [phone] Andi You Dilip PA Unavailable [phone] YouAndi Dilip PA Unavailable [phone] YouAndi Dilip PA Unavailable [phone] YouAndi Dilip PA Unavailable [phone] You J Dilip PA Unavailable [phone] You J Dilip PA Unavailable [phone] You, Andi Dilip PA Unavailable [phone] YouAndi Dilip PA Unavailable [phone] YouAndi Dilip PA Unavailable [phone] YouAndi Dilip PA Unavailable [phone] YouAndi Dilip PA Unavailable [phone] YouAndi Dilip PA Unavailable [phone] Andi LIN MD Unavailable Unavailable Andi LIN MD Unavailable Unavailable Andi LIN MD Unavailable Unavailable Andi LIN MD Unavailable Unavailable Andi LIN MD Unavailable Unavailable Andi LIN MD Unavailable Unavailable Andi LIN MD Unavailable Unavailable SCHNEIDER, CAYLA Unavailable Unavailable El-Khally, Jean Osorio MD Unavailable Unavailable El-Khally, Jean Osorio MD Unavailable Unavailable El-Khally, Jean Osorio MD Unavailable Unavailable El-Khally, Jean Osorio MD Unavailable Unavailable El-Khally, Jean Osorio MD Unavailable Unavailable El-Khally, Jean Osorio MD Unavailable Unavailable El-Khally, Jean Osorio MD Unavailable Unavailable El-Khally, Jean Osorio MD Unavailable Unavailable El-Khally, A Ziad MD Unavailable Unavailable El-Khally, A Ziad MD Unavailable Unavailable El-Khally, A Ziad MD Unavailable Unavailable El-Khally, A Ziad MD Unavailable Unavailable El-Khally, A Ziad MD Unavailable Unavailable El-Khally, A Ziad MD Unavailable Unavailable El-Khally, A Ziad MD Unavailable Unavailable El-Khally, A Ziad MD Unavailable Unavailable El-Khally, A Ziad MD Unavailable Unavailable El-Khally, A Ziad MD Unavailable Unavailable El-Khally, A Ziad MD Unavailable Unavailable El-Khally, A Ziad MD Unavailable Unavailable El-Khally, A Ziad MD Unavailable Unavailable El-Khally, A Ziad MD Unavailable Unavailable El-Khally, A Ziad MD Unavailable Unavailable El-Khally, A Ziad MD Unavailable Unavailable El-Khally, A Ziad MD Unavailable Unavailable El-Khally, A Ziad MD Unavailable Unavailable El-Khally, A Ziad MD Unavailable Unavailable El-Khally, A Ziad MD Unavailable Unavailable El-Khally, A Ziad MD Unavailable Unavailable El-Khally, A Ziad MD Unavailable Unavailable El-Khally, A Ziad MD Unavailable Unavailable El-Khally, A Ziad MD Unavailable Unavailable El-Khally, A Ziad MD Unavailable Unavailable El-Khally, A Ziad MD Unavailable Unavailable El-Khally, A Ziad MD Unavailable Unavailable El-Khally, A Ziad MD Unavailable Unavailable El-Khally, A Ziad MD Unavailable Unavailable El-Khally, A Ziad MD Unavailable Unavailable El-Khally, A Ziad MD Unavailable Unavailable El-Khally, A Ziad MD Unavailable Unavailable El-Khally, A Ziad MD Unavailable Unavailable El-Khally, A Ziad MD Unavailable Unavailable El-Khally, A Ziad MD Unavailable Unavailable MAJAK, R PARMINDER DPM Unavailable Unavailable MAJAK, R PARMINDER DPM Unavailable Unavailable MAJAK, R PARMINDER DPM Unavailable Unavailable MAJAK, R PARMINDER DPM Unavailable Unavailable MAJAK, R PARMINDER DPM Unavailable Unavailable MAJAK, R PARMINDER DPM Unavailable Unavailable MAJAK, R PARMINDER DPM Unavailable Unavailable MAJAK, R PARMINDER DPM Unavailable Unavailable MAJAK, R PARMINDER DPM Unavailable Unavailable MAJAK, R PARMINDER DPM Unavailable Unavailable MAJAK, R PARMINDER DPM Unavailable Unavailable MAJAK, R PARMINDER DPM Unavailable Unavailable MAJAK, R PARMINDER DPM Unavailable Unavailable MAJAK, R PARMINDER DPM Unavailable Unavailable MAJAK, R PARMINDER DPM Unavailable Unavailable MAJAK, R PARMINDER DPM Unavailable Unavailable MAJAK, R PARMINDER DPM Unavailable Unavailable MAJAK, R PARMINDER DPM Unavailable Unavailable MAJAK, R PARMINDER DPM Unavailable Unavailable MAJAK, R PARMINDER DPM Unavailable Unavailable MAJAK, R PARMINDER DPM Unavailable Unavailable MAJAK, R PARMINDER DPM Unavailable Unavailable MAJAK, R PARMINDER DPM Unavailable Unavailable MAJAK, R PARMINDER DPM Unavailable Unavailable MAJAK, R PARMINDER DPM Unavailable Unavailable MAJAK, R PARMINDER DPM Unavailable Unavailable MAJAK, R PARMINDER DPM Unavailable Unavailable MAJAK, R PARMINDER DPM Unavailable Unavailable MAJAK, R PARMINDER DPM Unavailable Unavailable MAJAK, R PARMINDER DPM Unavailable Unavailable MAJAK, R PARMINDER DPM Unavailable Unavailable Cederstrand, Hedy Lamas MD Unavailable Unavailable Cederstrand, Hedy Lamas MD Unavailable Unavailable Cederstrand, Hedy Lamas MD Unavailable Unavailable Cederstrand, Hedy Lamas MD Unavailable Unavailable Cederstrand, Hedy Lamas MD Unavailable Unavailable Cederstrand, Hedy Lamas MD Unavailable Unavailable Cederstrand, Hedy Lamas MD Unavailable Unavailable Cederstrand, Hedy Lamas MD Unavailable Unavailable Cederstrand, Hedy Lamas MD Unavailable Unavailable Cederstrand, Hedy Lamas MD Unavailable Unavailable Cederstrand, Hedy Lamas MD Unavailable Unavailable Cederstrand, Hedy Lamas MD Unavailable Unavailable Cederstrand, Hedy Lamas MD Unavailable Unavailable Cederstrand, Hedy Lamas MD Unavailable Unavailable Cederstrand, Hedy Lamas MD Unavailable Unavailable Cederstrand, Hedy Lamas MD Unavailable Unavailable REASON, L EDWARD DO Unavailable Unavailable REASON, L EDWARD DO Unavailable Unavailable REASON, L EDWARD DO Unavailable Unavailable REASON, L EDWARD DO Unavailable Unavailable REASON, L EDWARD DO Unavailable Unavailable REASON, L EDWARD DO Unavailable Unavailable REASON, L EDWARD DO Unavailable Unavailable REASON, L EDWARD DO Unavailable Unavailable REASON, L EDWARD DO Unavailable Unavailable REASON, L EDWARD DO Unavailable Unavailable REASON, L EDWARD DO Unavailable Unavailable REASON, L EDWARD DO Unavailable Unavailable REASON, L EDWARD DO Unavailable Unavailable REASON, L EDWARD DO Unavailable Unavailable REASON, L EDWARD DO Unavailable Unavailable REASON, L EDWARD DO Unavailable Unavailable REASON, L EDWARD DO Unavailable Unavailable REASON, L EDWARD DO Unavailable Unavailable REASON, L EDWARD DO Unavailable Unavailable REASON, L EDWARD DO Unavailable Unavailable REASON, L EDWARD DO Unavailable Unavailable REASON, L EDWARD DO Unavailable Unavailable REASON, L EDWARD DO Unavailable Unavailable REASON, L EDWARD DO Unavailable Unavailable REASON, L EDWARD DO Unavailable Unavailable REASON, L EDWARD DO Unavailable Unavailable REASON, L EDWARD DO Unavailable Unavailable REASON, L EDWARD DO Unavailable Unavailable REASON, L EDWARD DO Unavailable Unavailable REASON, L EDWARD DO Unavailable Unavailable REASON, L EDWARD DO Unavailable Unavailable REASON, L EDWARD DO Unavailable Unavailable REASON, L EDWARD DO Unavailable Unavailable REASON, L EDWARD DO Unavailable Unavailable REASON, L EDWARD DO Unavailable Unavailable REASON, L EDWARD DO Unavailable Unavailable REASON, L EDWARD DO Unavailable Unavailable REASON, L EDWARD DO Unavailable Unavailable REASON, L EDWARD DO Unavailable Unavailable REASON, L EDWARD DO Unavailable Unavailable REASON, L EDWARD DO Unavailable Unavailable REASON, L EDWARD DO Unavailable Unavailable REASON, L EDWARD DO Unavailable Unavailable REASON, L EDWARD DO Unavailable Unavailable REASON, L EDWARD DO Unavailable Unavailable REASON, L EDWARD DO Unavailable Unavailable REASON, L EDWARD DO Unavailable Unavailable REASON, L EDWARD DO Unavailable Unavailable REASON, L EDWARD DO Unavailable Unavailable REASON, L EDWARD DO Unavailable Unavailable REASON, L EDWARD DO Unavailable Unavailable REASON, L EDWARD DO Unavailable Unavailable REASON, L EDWARD DO Unavailable Unavailable REASON, L EDWARD DO Unavailable Unavailable REASON, L EDWARD DO Unavailable Unavailable REASON, L EDWARD DO Unavailable Unavailable REASON, L EDWARD DO Unavailable Unavailable REASON, L EDWARD DO Unavailable Unavailable REASON, L EDWARD DO Unavailable Unavailable REASON, L EDWARD DO Unavailable Unavailable REASON, L EDWARD DO Unavailable Unavailable REASON, L EDWARD DO Unavailable Unavailable REASON, L EDWARD DO Unavailable Unavailable REASON, L EDWARD DO Unavailable Unavailable REASON, L EDWARD DO Unavailable Unavailable REASON, L EDWARD DO Unavailable Unavailable REASON, L EDWARD DO Unavailable Unavailable Ting BECKWITH MD Unavailable Unavailable Ting BECKWITH MD Unavailable Unavailable Ting BECKWITH MD Unavailable Unavailable Ting BECKWITH MD Unavailable Unavailable Ting BECKWITH MD Unavailable Unavailable Ting BECKWITH MD Unavailable Unavailable Ting BECKWITH MD Unavailable Unavailable Ting BECKWITH MD Unavailable Unavailable Ting BECKWITH MD Unavailable Unavailable Ting BECKWITH MD Unavailable Unavailable Ting BECKWITH MD Unavailable Unavailable Ting BECKWITH MD Unavailable Unavailable Ting BECKWITH MD Unavailable Unavailable Ting BECKWITH MD Unavailable Unavailable Ting BECKWITH MD Unavailable Unavailable Ting BECKWITH MD Unavailable Unavailable Ting BECKWITH MD Unavailable Unavailable Ting BECKWITH MD Unavailable Unavailable Ting BECKWITH MD Unavailable Unavailable Ting BECKWITH MD Unavailable Unavailable Ting BECKWITH MD Unavailable Unavailable Ting BECKWITH MD Unavailable Unavailable Ting BECKWITH MD Unavailable Unavailable Ting BECKWITH MD Unavailable Unavailable TANG C ROB JOE Unavailable Unavailable Ting BECKWITH MD Unavailable Unavailable Ting BECKWITH MD Unavailable Unavailable Ting BECKWITH MD Unavailable Unavailable Ting BECKWITH MD Unavailable Unavailable Ting BECKWITH MD Unavailable Unavailable Ting BECKWITH MD Unavailable Unavailable Ting BECKWITH MD Unavailable Unavailable Ting BECKWITH MD Unavailable Unavailable Ting BECKWITH MD Unavailable Unavailable Albion, F Louis PA Unavailable Unavailable Albion, F Louis PA Unavailable Unavailable Mari, F Louis PA Unavailable Unavailable Mari, F Louis PA Unavailable Unavailable Albion, F Louis PA Unavailable Unavailable Albion, F Louis PA Unavailable Unavailable Mari, F Louis PA Unavailable Unavailable Albion, F Louis PA Unavailable Unavailable Albion, F Louis PA Unavailable Unavailable Mari, F Louis PA Unavailable Unavailable LUCIE MOREIRA MD Unavailable Unavailable LUCIE MOREIRA MD Unavailable Unavailable LUCIE MOREIRA MD Unavailable Unavailable LUCIE MOREIRA MD Unavailable Unavailable Valentina FORD . Unavailable Unavailable REASON, L EDWARD DO Unavailable Unavailable REASON, L EDWARD DO Unavailable Unavailable REASON, L EDWARD DO Unavailable Unavailable REASON, L EDWARD DO Unavailable Unavailable REASON, L EDWARD DO Unavailable Unavailable REASON, L EDWARD DO Unavailable Unavailable REASON, L EDWARD DO Unavailable Unavailable REASON, L EDWARD DO Unavailable Unavailable REASON, L EDWARD DO Unavailable Unavailable REASON, L EDWARD DO Unavailable Unavailable REASON, L EDWARD DO Unavailable Unavailable REASON, L EDWARD DO Unavailable Unavailable REASON, L EDWARD DO Unavailable Unavailable REASON, L EDWARD DO Unavailable Unavailable REASON, L EDWARD DO Unavailable Unavailable REASON, L EDWARD DO Unavailable Unavailable REASON, L EDWARD DO Unavailable Unavailable REASON, L EDWARD DO Unavailable Unavailable REASON, L EDWARD DO Unavailable Unavailable REASON, L EDWARD DO Unavailable Unavailable REASON, L EDWARD DO Unavailable Unavailable REASON, L EDWARD DO Unavailable Unavailable REASON, L EDWARD DO Unavailable Unavailable REASON, L EDWARD DO Unavailable Unavailable REASON, L EDWARD DO Unavailable Unavailable REASON, L EDWARD DO Unavailable Unavailable REASON, L EDWARD DO Unavailable Unavailable REASON, L EDWARD DO Unavailable Unavailable REASON, L EDWARD DO Unavailable Unavailable REASON, L EDWARD DO Unavailable Unavailable REASON, L EDWARD DO Unavailable Unavailable REASON, L EDWARD DO Unavailable Unavailable REASON, L EDWARD DO Unavailable Unavailable REASON, L EDWARD DO Unavailable Unavailable REASON, L EDWARD DO Unavailable Unavailable REASON, L EDWARD DO Unavailable Unavailable REASON, L EDWARD DO Unavailable Unavailable REASON, L EDWARD DO Unavailable Unavailable REASON, L EDWARD DO Unavailable Unavailable REASON, L EDWARD DO Unavailable Unavailable REASON, L EDWARD DO Unavailable Unavailable REASON, L EDWARD DO Unavailable Unavailable REASON, L EDWARD DO Unavailable Unavailable REASON, L EDWARD DO Unavailable Unavailable REASON, L EDWARD DO Unavailable Unavailable REASON, L EDWARD DO Unavailable Unavailable REASON, L EDWARD DO Unavailable Unavailable REASON, L EDWARD DO Unavailable Unavailable REASON, L EDWARD DO Unavailable Unavailable REASON, L EDWARD DO Unavailable Unavailable REASON, L EDWARD DO Unavailable Unavailable REASON, L EDWARD DO Unavailable Unavailable REASON, L EDWARD DO Unavailable Unavailable REASON, L EDWARD DO Unavailable Unavailable REASON, L EDWARD DO Unavailable Unavailable REASON, L EDWARD DO Unavailable Unavailable REASON, L EDWARD DO Unavailable Unavailable REASON, L EDWARD DO Unavailable Unavailable REASON, L EDWARD DO Unavailable Unavailable REASON, L EDWARD DO Unavailable Unavailable REASON, L EDWARD DO Unavailable Unavailable REASON, L EDWARD DO Unavailable Unavailable REASON, L EDWARD DO Unavailable Unavailable REASON, L EDWARD DO Unavailable Unavailable REASON, L EDWARD DO Unavailable Unavailable REASON, L EDWARD DO Unavailable Unavailable REASON, L EDWARD DO Unavailable Unavailable Tyrese Oconnor MD Unavailable Unavailable Tyrese Oconnor MD Unavailable Unavailable Tryese Oconnor MD Unavailable Unavailable Tyrese Oconnor MD Unavailable Unavailable Tyrese Oconnor MD Unavailable Unavailable Tyrese Oconnor MD Unavailable Unavailable Tyrese Oconnor MD Unavailable Unavailable Tyrese Oconnor MD Unavailable Unavailable Tyrese Oconnor MD Unavailable Unavailable Tyrese Oconnor MD Unavailable Unavailable Tyrese Oconnor MD Unavailable Unavailable Tyrese Oconnor MD Unavailable Unavailable Hamad, Tyrese MD Unavailable Unavailable Hamad, Tyrese MD Unavailable Unavailable Hamad, Tyrese MD Unavailable Unavailable Hamad, Tyrese MD Unavailable Unavailable Hamad, Tyrese MD Unavailable Unavailable Hamad, Tyrese MD Unavailable Unavailable Hamad, Tyrese MD Unavailable Unavailable Andi You Unavailable Unavailable Re-disclosure Warning The records that you are about to access may contain information from federally-assisted alcohol or drug abuse programs. If such information is present, then the following federally mandated warning applies: This information has been disclosed to you from records protected by federal confidentiality rules (42 CFR part 2). The federal rules prohibit you from making any further disclosure of this information unless further disclosure is expressly permitted by the written consent of the person to whom it pertains or as otherwise permitted by 42 CFR part 2. A general authorization for the release of medical or other information is NOT sufficient for this purpose. The Federal rules restrict any use of the information to criminally investigate or prosecute any alcohol or drug abuse patient.The records that you are about to access may contain highly sensitive health information, the redisclosure of which is protected by Article 27-F of the [facility] Public Health law. If you continue you may have access to information: Regarding HIV / AIDS; Provided by facilities licensed or operated by the [facility] Office of Mental Health; or Provided by the [facility] Office for People With Developmental Disabilities. If such information is present, then the following [facility] mandated warning applies: This information has been disclosed to you from confidential records which are protected by state law. State law prohibits you from making any further disclosure of this information without the specific written consent of the person to whom it pertains, or as otherwise permitted by law. Any unauthorized further disclosure in violation of state law may result in a fine or long term sentence or both. A general authorization for the release of medical or other information is NOT sufficient authorization for further disc losure. Allergies and Adverse Reactions Type Description Substance Reaction Status Data Source(s ) Propensity to adverse reactions PENICILLINS [facility] Propensity to adverse reactions PCN (penicillin) PCN (penicillin) [facility] Drug allergy Drug allergy birch Shortness of Breath I [facility] Drug allergy Drug allergy Penicillins Rash I [facility] Family History Family Member Name Family Member Gender Family Member Status Date o f Status Description Data Source(s) Unknown Male Problem [facility] ([facility]) Encounters Encounter Providers Location Date Indications Data Source(s ) Outpatient Attender: REAGAN Beckwith/Kendall/Redd/Umm 06/18/2021 03:00:00 PM EDT [facility] ([facility] Outpatient Attender: GEORGE MINOR MD [facility] 05/10 01:30:00 PM EDT [facility] (George Minor MD) Outpatient Attender: Dilip HAMPTON CPSCAORT-CPSCAEND 05/04/2021 09:29:00 AM EDT - 05/04/2021 09:30:00 AM EDT [facility] Patient discharged. Outpatient Attender: REAGAN Beckwith/Kendall/Redd/Umm 04/30/2021 03:00:00 PM EDT [facility] ([facility], ) Outpatient Attender: ANDRE STREETER DO [facility] 03/21 08:38:00 AM EDT - 03/21/2021 08:39:00 AM EDT [facility] E118 Patient discharged. Outpatient Attender: GEORGE MINOR MD [facility] 02/26 04:00:00 PM EDT [facility] (George Minor [facility]) Inpatient Attender: Jo Molina MDAdmitter: Jo gaffney MD [id number] 02/07/2021 03:03:00 PM EDT - 02/11/2021 04:16:00 PM EDT [facility] Patient discharged. Outpatient Attender: GEORGE MINOR MD [facility] 02/05 01:45:00 PM EDT [facility] (George Minor MD) Outpatient Attender: ROB Beckwith/Kendall/Redd/Kayley araujo 01/23/2021 09:30:00 AM EDT [facility] ([facility], ) Inpatient Attender: LIDA Mitchell nder: AMARA BOCANEGRA MDAttender: DWAYNE MARTINEZ MDAttender: LUCIE MOREIRA MDAdmitter: DWAYNE MARTINEZ MDReferrer: SHARA FORD . [id number] 01/14/2021 12:00:00 AM EDT - 01/19/2021 04:34:00 PM EDT Chest pain, unspecified [facility] Chest pain, unspecified Patient discharged. Office Visit Attender: Cydney Beckwith/Kendall/Redd/ Reindl 01/11/2021 09:15:00 AM EDT [facility] ([facility]) Outpatient Attender: ANDRE REASON DO [facility] 01/10 01:07:00 PM EDT - 01/10/2021 01:08:00 PM EDT [facility] HYPOTHYROIDISM Patient discharged. Outpatient Attender: Dilip HAMPTON CPSCAORT-CPSCAEND 01/03/2021 11:13:00 AM EDT - 01/03/2021 11:14:00 AM EDT [facility] Patient discharged. Outpatient Attender: Dilip CALVERTCAORT-CPSCAEND 01/01/2021 03:37:00 PM EDT - 01/01/2021 03:38:00 PM EDT [facility] Patient discharged. Office Visit Attender: Arlene Beckwith/Kendall/Redd/R eindl 12/25/2020 09:15:00 AM EDT [facility] ([facility] ) Outpatient Attender: GEORGE MINOR MD [facility] 12/04 01:15:00 PM EDT [facility] (George Minor MD) Outpatient Attender: Cydney Beckwith/Kendall/Redd/ Reindl 11/09/2020 10:30:00 AM EST [facility] ([facility] Outpatient Attender: Dilip CALVERTCAHUGH-CPSCAEND 11/06/2020 02:38:00 PM EST - 11/06/2020 02:39:00 PM EST [facility] Patient discharged. Outpatient Attender: ELISABETH DE LOS SANTOS DPM PCConsultant: CASSY D REASON DO 10/31/2020 10:56:00 AM EST - 10/31/2020 10:56:00 AM [facility] Outpatient Attender: GEORGE MINOR MD [facility] 10/05 01:15:00 PM EST [facility] (George Minor [facility]) Office Visit Attender: PARMINDER WILL DPM [place] [facility] 09/02 12:45:00 PM EST [facility] ([facility] Outpatient Attender: Dilip FLETCHERttender: Elisha HAMPTON CPSCAORT-CPSCAEND 09/20/2020 09:34:00 AM EST - 09/20/2020 09:35:00 AM ES T E11.65 [facility] E11.65 Patient discharged. Outpatient Attender: Arlene Asif RPA Tang/Meno/Redd/R eindl 09/05/2020 09:15:00 AM EST [facility] ([facility] Outpatient Attender: ELISABETH DE LOS SANTOS DPM PCConsultant: CASSY Maldonado REASON DO 08/22/2020 09:36:00 AM EST - 08/22/2020 09:36:00 AM [facility] Outpatient Attender: GEORGE MINOR MD [facility] 08/03 01:30:00 PM EST [facility] (George Minor MD) Office Visit Attender: PARMINDER WILL [facility] 10/2019 09:00:00 AM EST [facility] ([facility] Outpatient Attender: Arlene Asif RPA Tang/Meno/Redd/R eindl 08/02/2020 09:15:00 AM EST [facility] ([facility] Outpatient Attender: ELISABETH DE LOS SANTOS DPM PCConsultant: CASSY Maldonado REASON DO 07/13/2020 02:34:00 PM EST - 07/13/2020 02:34:00 PM [facility] Outpatient 07/05/2020 06:10:00 PM [facility] Emergency Attender: IRON Randsultant: ANDRE GALVEZ DO 07/05/2020 03:34:00 PM EST - 07/05/2020 07:52:00 PM EST [facility] Patient discharged. Outpatient Attender: Cydney Beckwith/Kendall/Redd/ Umm 07/03/2020 01:15:00 PM EST [facility] ([facility] Outpatient Attender: ELISABETH DE LOS SANTOS DPM PCConsultant: CASSY D REASON DO 06/13/2020 02:03:00 PM EDT - 06/13/2020 02:03:00 PM EDT [facility] Outpatient Attender: GEORGE MINOR MD [facility] 06/02 11:15:00 AM EDT [facility] ([facility] Minor [facility]) Emergency Attender: IRON RANDALLConsultant: ANDRE SUAREZ ON DO 05/31/2020 04:25:00 PM EDT - 05/31/2020 06:56:00 PM EDT [facility] Patient discharged. Outpatient Attender: ELISABETH DE LOS SANTOS DPM PCConsultant: CASSY D REASON DO 05/31/2020 03:06:00 PM EDT - 05/31/2020 03:06:00 PM EDT [facility] Emergency Attender: Louis HAMPTON ED-ED 11:46:00 AM EDT - 05/30/2020 12:51:00 PM EDT CUT LEFT FINGER [facility] CUT LEFT FINGER Patient discharged. Outpatient Attender: Dilip HAMPTON CPSCAORT-CPSCAEND 05/29/2020 10:08:00 AM EDT - 05/29/2020 10:09:00 AM EDT [facility] Patient discharged. Outpatient Attender: ELISABETH DE LOS SANTOS DPM PCConsultant: CASSY D REASON DO 05/22/2020 04:02:00 PM EDT - 05/22/2020 04:02:00 PM EDT [facility] Emergency Attender: MARIELLA QUEZADA MDConsultant: ANDRE ENNIS DO 05/19/2020 07:31:00 PM EDT - 05/19/2020 08:46:00 PM EDT [facility] Patient discharged. Outpatient Attender: ANDRE STREETER DO [facility] 05/02 07:48:00 AM EDT - 05/02/2020 07:49:00 AM EDT E118 [facility] E118 Patient discharged. Inpatient Attender: Tyrese Oconnor MDAtt rosalind: CAYLA Andrewender: CAYLA Perez: JIMENEZ DUNHAM MDAdmitter: JIMENEZ DUNHAM MD [id number] 03/23/2020 01:22:32 AM EDT - 03/29/2020 01:47:00 PM EDT [facility] Patient discharged. Emergency Attender: TREVOR HAMPTON ED-ED 11/23 05:01:00 PM EDT - 11/24/2019 08:48:00 PM EDT [facility] CR[facility] LEG CRAMPS Patient discharged. Immunizations Vaccine Date Status Description Data Source(s) COVID-19 VACCINE Moderna 01/01/2021 12:00:00 AM EDT completed [facility] Vaccine Series Complete: YESThis Data wa s Submitted to [facility] Via [employer]. COVID-19 VACC,MRNA(MODERNA)/PF 01/01/2021 12:00:00 AM EDT completed [facility] COVID-19 VACCINE Moderna 12/02/2020 12:00:00 AM EDT completed [facility] Vaccine Series Complete: NOThis Data was Submitted to [facility] Via [employer]. COVID-19 VACCINE, MRNA-1273, LNP-S (MODERNA)/PF 12/02/2020 1 2:00:00 AM EDT completed [facility] Medications Medication Brand Name Start Date Product Form Dose Route Admi nistrative Instructions Pharmacy Instructions Status Indications Reaction Description Data Source(s) Xarelto Xarelto 05/10/2021 12:00:00 AM EDT active [facility] (George Minor MD) atorvastatin 40 MG Oral Tablet Atorvastatin Calcium 02/26/2021 1 2:00:00 AM EDT ORAL active [facility] ( George Minor MD) Hydroxyzine Hydrochloride 10 MG Oral Tablet Hydroxyzine HCL 02/26/2021 12:00:00 AM EDT active [facility] (Mariama Minor MD) carvedilol 12.5 MG Oral Tablet Carvedilol 02/26/2021 12:00:00 AM EDT active [facility] (George Minor MD) Amlodipine 5 MG Oral Tablet amLODIPine (NORVASC) 5 MG tablet amLODIPine (NORVASC) 5 MG tablet 02/12/2021 12:00:00 AM EDT 5 mg Oral active Take 1 tablet (5 mg total) by mouth daily [facility] Furosemide 40 MG Oral Tablet furosemide (LASIX) tablet 40 mg furosemide (LASIX) tablet 40 mg 02/11/2021 09:00:00 AM EDT 40 mg Oral activ e 40 mg, Oral, Every morning, First dose on 02/11/21 at 0900 [facility] Medication administered onsite furosemide (LASIX) injection 20 mg [id number] 02/11/2021 01:00:00 AM EDT 20 mg Intravenous completed 20 mg, I ntravenous, Once, On 02/11/21 at 0100, For 1 dose [facility] Medication administered onsite Nitroglycerin 0.4 MG Sublingual Tablet n itroglycerin (NITROSTAT) 0.4 MG SL tablet nitroglycerin (NITROSTAT) 0.4 MG SL tablet 02/11/2021 12:00:00 A M EDT 0.[address] 1 t ablet (0.4 mg total) under the tongue every 5 (five) minutes as needed for chest pain [facility] carvedilol 12.5 MG Oral Tablet carvedilol (COREG) 12.5 MG tablet carvedilol (COREG) 12.5 MG tablet 02/11/2021 12:00:00 AM EDT 12.5 mg Oral active Take 1 tablet (12.5 mg total) by mouth 2 (two) times a day [facility] Aspirin 81 MG Delayed Release Oral Tablet aspirin 81 M G EC tablet aspirin 81 MG EC tablet 02/11/2021 12:00:00 AM EDT 81 mg Oral active Take 1 tablet (81 mg total) by mouth daily [facility] clopidogrel 75 MG Oral Tablet clopidogrel (PLAVIX) 75 MG tablet clopidogrel (PLAVIX) 75 MG tablet 02/11/2021 12:00:00 AM EDT 75 mg Oral active Take 1 tablet (75 mg total) by mouth nightly [facility] Hydralazine Hydrochloride 10 MG Oral Tab let hydrALAZINE (APRESOLINE) tablet 10 mg hydrALAZINE (APRESOLINE) tablet 10 mg 02/11/2021 12:00:00 AM EDT 10 mg Oral completed 10 mg, Oral, Once, O n 02/11/21 at 0000, For 1 dose [facility] Medication administered onsite Hydralazine Hydrochloride 10 MG Oral Tab let hydrALAZINE (APRESOLINE) tablet 10 mg hydrALAZINE (APRESOLINE) tablet 10 mg 02/10/2021 06:00:00 PM EDT 10 mg Oral completed 10 mg, Oral, Once, O n 02/10/21 at 1800, For 1 dose [facility] Medication administered onsite Amlodipine 5 MG Oral Tablet amLODIPine (NORVASC) table t 5 mg amLODIPine (NORVASC) tablet 5 mg 02/10/2021 02:00:00 PM EDT 5 mg Oral active 5 mg, Oral, Daily, First dose on 02/10/21 at 1400 [facility] Medication administered onsite furosemide (LASIX) injection 40 mg [id number] 02/10/2021 01:00:00 PM EDT 40 mg Intravenous completed 40 mg, I ntravenous, Once, On 02/10/21 at 1300, For 1 dose
Between blood transfusion units
[facility] Medication administered onsite potassium chloride SA (K-DUR,KLOR-CON) CR tablet 40 mEq [id number] 02/09/2021 04:00:00 PM EDT 40 meq Oral completed 40 mEq, Oral, Once, On 02/09/21 at 1600, For 1 dose [facility] Medication administered onsite Insulin Glargine 100 UNT/ML Injectable S olution [Lantus] insulin glargine (LANTUS) injection 25 Units insulin glargine (LANTUS) injection 25 Units 02/08/2021 09:00:00 PM EDT 25 U Subcutaneous active 25 Units, Subcutaneous, Nightly (Lantus), First dose on Libra 02/08/21 at 2100
Basal Insulin (Lantus) Adjustments based on AM Blood Glucose Blood Glucose&nbs p; Adjustment Less than 70 mg/dl Nursing to initiate hypoglycemia protocol 70 to 100 mg/dl &nb sp; Pharmacy to decrease total daily dose by 20% 101 to 200 mg/dl &nb sp; No Change
[facility] Medication administered onsite sodium chloride 0.9% (NS) infusion [id number] 02/08/2021 04:00:00 P M EDT Intravenous completed at 100 mL/hr, Intravenous, Continuous, Starting on Libra 02/08/21 at 1600, For 6 hours, Post-op [facility] Medication administered onsite clopidogrel 75 MG Oral Tablet clopidogrel (PLAVIX) tab let 75 mg clopidogrel (PLAVIX) tablet 75 mg 02/08/2021 04:00:00 PM EDT 75 mg Oral active 75 mg, Oral, Daily, First dose on Fri02/08/21 at 1600, Post-op
May begin the same day
[facility] Medication administered onsite clopidogrel 75 MG Oral Tablet clopidogrel (PLAVIX) tab let clopidogrel (PLAVIX) tablet 02/08/2021 02:30:24 PM EDT active As needed, Starting on Libra 02/08/21 at 1430, Intra-Procedure [facility] Medication administered onsite 1 ML heparin sodium, porcine 1000 UNT/ML Injection hep fabian (porcine) injection heparin (porcine) injection 02/08/2021 02:02:58 PM EDT active As needed, Starting on Libra 02/08/21 at 1402, Intra-Procedure [facility] Medication administered onsite lidocaine 1 % injection [id number] 02/08/2021 01:53:49 PM EDT active As needed, Starting on Libra at 1353, Intra-Procedure [facility] Medication administered onsite fentaNYL Citrate (PF) (SUBLIMAZE) injection [id number] 02/08/2021 01:50:42 PM EDT active As neede d, Starting on Libra 02/08/21 at 1350, Intra-Procedure [facility] Medication administered onsite 2 ML Midazolam 1 MG/ML Injection midazolam (VERSED) in jection midazolam (VERSED) injection 02/08/2021 01:50:35 PM EDT active As needed, Starting on Libra 02/08/21 at 1350, Intra-Procedure [facility] Medication administered onsite potassium chloride SA (K-DUR,KLOR-CON) CR tablet 20 mEq [id number] 02/08/2021 08:00:00 AM EDT 20 meq Oral completed 20 mEq, Oral, Once, On Libra 02/08/21 at 0800, For 1 dose [facility] Medication administered onsite Hydralazine Hydrochloride 10 MG Oral Tab let hydrALAZINE (APRESOLINE) tablet 10 mg hydrALAZINE (APRESOLINE) tablet 10 mg 02/08/2021 12:00:00 AM EDT 10 mg Oral aborted 10 mg, Oral, E very 8 hours (scheduled), First dose on Libra 02/08/21 at 0000
Hold for SBP<140
[facility] Medication administered onsite atorvastatin 80 MG Oral Tablet atorvastatin (LIPITOR) tablet 80 mg atorvastatin (LIPITOR) tablet 80 mg 02/07/2021 09:00:00 PM EDT 80 mg Oral active 80 mg, Oral, Nightly, First dose on Fri02/07/21 at 2099 [facility] Medication administered onsite carvedilol 12.5 MG Oral Tablet carvedilol (COREG) tabl et 12.5 mg carvedilol (COREG) tablet 12.5 mg 02/07/2021 09:00:00 PM EDT 12.5 mg Oral active 12.5 mg, Oral, 2 times daily, First dose on Fri02/07/21 at 2099 [facility] Medication administered onsite Sertraline 100 MG Oral Tablet sertraline (ZOLOFT) tabl et 100 mg sertraline (ZOLOFT) tablet 100 mg 02/07/2021 09:00:00 PM EDT 100 mg Oral active 100 mg, Oral, Nightly, First dose on Fri02/07/21 at 2099 [facility] Medication administered onsite ropinirole 1 MG Oral Tablet rOPINIRole (REQUIP) tablet 1 mg rOPINIRole (REQUIP) tablet 1 mg 02/07/2021 09:00:00 PM EDT 1 mg Oral active 1 mg, Oral, 2 times daily, First dose on Fri02/07/21 at 2099 [facility] Medication administered onsite clopidogrel 75 MG Oral Tablet clopidogrel (PLAVIX) tab let 75 mg clopidogrel (PLAVIX) tablet 75 mg 02/07/2021 09:00:00 PM EDT 75 mg Oral aborted 75 mg, Oral, Nightly, First dose on Fri02/07/21 at 2099 [facility] Medication administered onsite potassium chloride SA (K-DUR,KLOR-CON) CR tablet 20 mEq [id number] 02/07/2021 08:00:00 PM EDT 20 meq Oral completed 20 mEq, Oral, Once, On Fri02/07/21 at 2000, For 1 dose [facility] Medication administered onsite 1 ML heparin sodium, porcine 1000 UNT/ML Injection heparin (porcine) injection 4,900 Units heparin (porcine) injection 4,900 Units 02/07/2021 05:00:00 PM EDT 60 U/kg Intravenous completed 4,900 Unit s (rounded from 4,872 Units = 60 Units/kg 81.2 kg), Intravenous, Once, On Fri02/07/21 at 1700, For 1 dose
Do not exceed 5,000 units or 60 units/kg (whichever is less)
[facility] Medication administered onsite sodium chloride 0.9% (NS) infusion [id number] 02/07/2021 05:00:00 P M EDT Intravenous aborted at 75 mL/hr, Intravenous, Continuous, Starting on Fri02/07/21 at 1700 [facility] Medication administered onsite Insulin Lispro 100 UNT/ML Injectable Rose Marie ution insulin lispro (HumaLOG) injection 1-12 Units insulin lispro (HumaLOG) injection 1-12 Units 02/08/20 05:00:00 PM EDT U Subcutaneous active 1-1 2 Units, Subcutaneous, MEALSS, First dose on Fri02/07/21 at 1700
AVERAGE 6 Units Nutritional and Correction Insulin Scale Blood Glucose (mg/dl) <70 start hypoglycemia protocol Glucose Eats >=50% Eats <50% Eats Nothing (mg/dl) of meal of meal or NPO 70-1 20 4 units 2 units 0 units 121-170 &a mp;nbsp; 6 units 3 unit s 0 units 171-220 &n bsp; 7 units 4 units 1 units 221-270 &n bsp; 8 units 5 units 2 units 271- 320 9 units 6 units 3 units 321- 370 10 units 7 units 4 units 371-420 &nbsp ; 11 units 8 units& nbsp; 5 units >420 call MD 12 units &a mp;nbsp; 9 units 6 units Test glucose within 30 minutes of insulin administration. Administer insulin within 15 minutes (before or after) of the patient starting to eat. For patients that are NPO, use the&am p;nbsp; NPO (correction) scale to cover POC glucose at 08:00, 12:00, 17:00.
[facility] Medication administered onsite Nitroglycerin 0.02 MG/MG Topical Ointmen t nitroglycerin (NITROSTAT) 2 % ointment 1 inch nitroglycerin (NITROSTAT) 2 % ointment 1 inch 02/08/20 04:00:00 PM EDT 1 g Topical aborted 1 inch ( 1 g), Topical, Every 6 hours (scheduled), First dose on Fri02/07/21 at 1600
1 inch = 1 gram
[facility] Medication administered onsite pantoprazole 40 MG Delayed Release Oral Tablet pantoprazole (PROTONIX) EC tablet 40 mg pantoprazole (PROTONIX) EC tablet 40 mg 02/07/2021 04:00:00 PM E DT 40 mg Oral active Gastroesophageal Reflux Diseas e 40 mg, Oral, Daily, Indications: Gastroesophageal Reflux Disease, First dose on Fri02/07/21 at 1600 [facility] Gastroesophageal Reflux Disease Medication administered onsite Aspirin 81 MG Delayed Release Oral Tablet aspirin EC t ablet 81 mg aspirin EC tablet 81 mg 02/07/2021 04:00:00 PM EDT 81 mg Oral activ e 81 mg, Oral, Daily, First dose on Fri02/07/21 at 1600 [facility] Medication administered onsite 500 ML heparin sodium, porcine 50 UNT/ML Injection heparin infusion 25,000 units in 500 mL 0.45% NaCl heparin infusion 25,000 units in 500 mL 0.45% NaCl 02/07/2021 04:00:00 PM EDT 13 U/kg/h Intravenous aborted 13 Units/kg/hr 81.2 kg (21.112 mL/hr, rounded to 21.1 mL/hr), Intravenous, at 21.1 mL/hr, Continuous, Starting on Fri02/07/21 at 1600
For Cardiac/BridgeaPTT (seconds) Heparin Dose (weight based)< 34 Bolus: 60 units/kg IV (Maximum bolus: 5,000 units) and increase infusion 3 units/kg/hr IV34 - 50 Bolus: 30 units/kg IV (Maximum bolus: 5,000 units) and increase infusion 2 units/kg/hr IV50.1 - 58 No bolus. Increase infusion 1 unit/kg/hr IV58.1 - 87 Therapeutic, No Dcbdzs34.1 - 97 Decrease infusion 1 unit/kg/hr IV 97.1 - 110Hold infusion for 30 minutes & decrease infusion 2 units/kg/hr IV> 110 Call MD if patient is bleeding. Hold infusion for 60 minutes & decrease infusion 3 units/kg/hr IVInitial heparin IV infusion rate:Do not exceed 1000 units/hr or 12 units/kg/hr initially (whichever is less)Infuse this medication only through single port tubing ([employer] Infusion Set ref [id number]). Medication and tubing is to be discarded if infusion off for 4 hours.
[facility] Medication administered onsite tramadol hydrochloride 50 MG Oral Tablet traMADol (ULT NOHEMI) tablet 50 mg traMADol (ULTRAM) tablet 50 mg 02/07/2021 03:35:12 PM EDT 50 mg Oral active 50 mg, Oral, 2 times daily PRN, mild pain (1-3), Starting on Fri02/07/21 at 1535, For 7 days [facility] Medication administered onsite Nitroglycerin 0.4 MG Sublingual Tablet n itroglycerin (NITROSTAT) SL tablet 0.4 mg nitroglycerin (NITROSTAT) SL tablet 0.4 mg 02/07/2021 03:34:10 P M EDT 0.4 mg Sublingual active 0.4 mg, S ublingual, Every 5 min PRN, chest pain, Starting on Fri02/07/21 at 1534
May administer up to 3 doses per episode.
[facility] Medication administered onsite Acetaminophen 325 MG / Oxycodone Hydroch loride 5 MG Oral Tablet oxyCODONE- acetaminophen (PERCOCET) 5-325 MG 1 tablet oxyCODONE-acetaminophen (PERCOCET) 5- 325 MG 1 tablet 02/07/2021 03:33:30 PM EDT 1 {tbl} Oral a ctive 1 tablet, Oral, Every 8 hours PRN, moderate pain (4-6), Starting on Fri02/07/21 at 1533, For 7 days [facility] Medication administered onsite Acetaminophen 325 MG Oral Tablet acetaminophen (TYLENO L) 325 MG tablet 650 mg acetaminophen (TYLENOL) 325 MG tablet 650 mg 02/07/2021 03:32:06 PM EDT 650 mg Oral active 650 mg, Or al, Every 6 hours PRN, mild pain (1-3), Starting on Fri02/07/21 at 1532 [facility] Medication administered onsite potassium chloride (K-DUR) dissolvable tablet 40 mEq [id number] 01/19/2021 08:00:00 AM EDT 40 meq Oral completed 40 mEq, Oral, Once, On Fri01/19/21 at 0800, For 1 dose
May be dissolved in water for patients with a G- Tube or unable to swallow. If concern for clogging G-Tube, may contact Pharmacy to switch formulation to a powder packet.
[facility] Medication administered onsite Isopropyl Alcohol 0.7 ML/ML Medicated Pad Alcohol Swabs Pad Alcohol Swabs Pad 01/19/2021 12:00:00 AM EDT active Use as directed. use 8-10 per day, E11.65, #200, 1 refill [facility] [employer] [place] [employer] w/Device Kit [id number] 01/19/2021 12:00:00 A M EDT active Use as directed. Rashawn t 4-6 times daily. Dx code 11.65. [facility] FreeStyle Lancets [id number] 01/19/2021 12:00:00 AM EDT active Use as directed. Use 4-6 times daily. Dx code 11.65. [facility] FreeStyle Lite Test In Vitro Strip (glucose blood) [id number] 01/19/2021 12:00:00 AM EDT active Test 4-6 times daily. Dx code 11.65. [facility] 3 ML Insulin Lispro 100 UNT/ML Pen Injec tor Insulin Lispro (1 Unit Dial) 100 UNIT/ML Subcutaneous Solution Pen-injector (HumaLOG KwikPen) Insulin Lispro (1 Unit Dial) 100 UNIT/ML Subcutaneous Solution Pen-injector (HumaLOG KwikPen) 01/19/2021 12:00:00 AM EDT active #25 pens, inject 3 times daily before meal per the insulin algorithm, MDD: 120units, 1 [facility] 3 ML Insulin Lispro 100 UNT/ML Pen Injec tor Insulin Lispro (1 Unit Dial) 100 UNIT/ML Subcutaneous Solution Pen-injector (HumaLOG KwikPen) Insulin Lispro (1 Unit Dial) 100 UNIT/ML Subcutaneous Solution Pen-injector (HumaLOG KwikPen) 01/19/2021 12:00:00 AM EDT aborted #25 pens, inject 3 times daily before meal per the insulin algorithm, MDD: 120units, 1 [facility] Insulin Syringe-Needle U-100 31G X 15/64" 0.5 ML [id number] 01/19/2021 12:00:00 AM EDT active #600. Use 4-6 carol ly, E11.65, 1 [facility] 3 ML Insulin Lispro 100 UNT/ML Pen Injec tor Insulin Lispro (1 Unit Dial) 100 UNIT/ML Subcutaneous Solution Pen-injector (HumaLOG KwikPen) Insulin Lispro (1 Unit Dial) 100 UNIT/ML Subcutaneous Solution Pen-injector (HumaLOG KwikPen) 01/19/2021 12:00:00 AM EDT aborted # 5 pens, inject 3 times daily before meal per the insulin algorithm, MDD: 120units, 1 [facility] Insulin Pen Needle 31G X 5 MM [id number] 01/19/2021 12:00:00 AM EDT active Use as directed. Use 4-6 needles per day . [facility] 3 ML Insulin Glargine 100 UNT/ML Pen Inj art Insulin Glargine 100 UNIT/ML Subcutaneous Solution Pen-injector (LANTUS SOLOSTAR) Insulin Glargine 100 UNIT/ML Subcutaneous Solution Pen-injector (LANTUS SOLOSTAR) 01/19/2021 12:00:00 AM EDT active Inject 4 4 Units subcutaneously every night, MDD 100 [facility] Insulin Glargine 100 UNT/ML Injectable S olution insulin glargine (LANTUS) injection 44 Units insulin glargine (LANTUS) injection 44 Units 10:00:00 PM EDT 44 U Subcutaneous active 44 Units, Subcutaneous, Nightly, First dose (after last modification) on [facility] 01/18/21 at 2200, For 26 doses
For blood glucose less than 70 mg/dL: follow hypoglycemia protocol ( ) and notify provider. For blood glucose values between 70 mg/dL and 100 mg/dL at bedtime: provide snack (15 grams of carbohydrates) with some protein. Administer FULL DOSE of insulin glargine (LANTUS) after snack. Record snack in I&O's. For blood glucose more than 400 mg/dL: notify provider
[facility] Medication administered onsite insulin lispro (HUMALOG) injection CUSTO MIZABLE DOSE INSULIN patients 1-25 Units [id number] 01/18/2021 06:00:00 PM EDT U Subcutaneous active 1-25 Units, Subcutaneous, Three Times Daily-With Meals, First dose (after last modification) on [facility] 01/18/21 at 1800, For 87 doses
Nursing MUST open the 'SQ Insulin Dosing Charts' Sidebar Report, or, the Patient Summary or Summary Report within the ED.
Patient Type: Eating Meals
<70 give (units or other) for NPO or <15 gm carbohydrates solid food or full liquid (<30 gm if only clear liquid consumed): Hypoglycemia Protocol and then, once blood glucose level > 70 give insulin dose in 71-90 row regardless of new blood glucose level.
71-90 give (units) for NPO or <15 gm carbohydrates solid food or full liquid (<30 gm if only clear liquid consumed): 0
91-130 give (units) for NPO or <15 gm carbohydrates solid food or full liquid (<30 gm if only clear liquid consumed): 0
131-150 give (units) for NPO or <15 gm carbohydrates solid food or full liquid (<30 gm if only clear liquid consumed): 2
151-200 give (units) for NPO or <15 gm carbohydrates solid food or full liquid (<30 gm if only clear liquid consumed): 7
201-250 give (units) for NPO or <15 gm carbohydrates solid food or full liquid (<30 gm if only clear liquid consumed): 9
251-300 give (units) for NPO or <15 gm carbohydrates solid food or full liquid (<30 gm if only clear liquid consumed): 10
301-350 give (units) for NPO or <15 gm carbohydrates solid food or full liquid (<30 gm if only clear liquid consumed): 12
351-400 give (units) for NPO or <15 gm carbohydrates solid food or full liquid (<30 gm if only clear liquid consumed): 13
>401 give (units) AND NOTIFY for NPO or <15 gm carbohydrates solid food or full liquid (<30 gm if only clear liquid consumed): 15
<70 give (units or other) for 15-30 gm carbohydrates solid food or full liquid (30-45 gm if only clear liquid consumed): Hypoglycemia Protocol and then, once blood glucose level > 70 give insulin dose in 71-90 row regardless of new blood glucose level.
71-90 give (units) for 15-30 gm carbohydrates solid food or full liquid (30-45 gm if only clear liquid consumed): 3
91-130 give (units) for 15-30 gm carbohydrates solid food or full liquid (30-45 gm if only clear liquid consumed): 4
131-150 give (units) for 15-30 gm carbohydrates solid food or full liquid (30-45 gm if only clear liquid consumed): 5
151-200 give (units) for 15-30 gm carbohydrates solid food or full liquid (30-45 gm if only clear liquid consumed): 10
201-250 give (units) for 15-30 gm carbohydrates solid food or full liquid (30-45 gm if only clear liquid consumed): 12
251-300 give (units) for 15-30 gm carbohydrates solid food or full liquid (30-45 gm if only clear liquid consumed): 14
301-350 give (units) for 15-30 gm carbohydrates solid food or full liquid (30-45 gm if only clear liquid consumed): 16
351-400 give (units) for 15-30 gm carbohydrates solid food or full liquid (30-45 gm if only clear liquid consumed): 18
>401 give (units) AND NOTIFY for 15-30 gm carbohydrates solid food or full liquid (30-45 gm if only clear liquid consumed): 20
<70 give (units or other) for >30 gm carbohydrates solid food or full liquid (>45 gm if only clear liquid consumed): Hypoglycemia Protocol and then, once blood glucose level > 70 give insulin dose in 71-90 row regardless of new blood glucose level.
71-90 give (units) for >30 gm carbohydrates solid food or full liquid (>45 gm if only clear liquid consumed): 11
91-130 give (units) for >30 gm carbohydrates solid food or full liquid (>45 gm if only clear liquid consumed): 13
131-150 give (units) for >30 gm carbohydrates solid food or full liquid (>45 gm if only clear liquid consumed): 17
151-200 give (units) for >30 gm carbohydrates solid food or full liquid (>45 gm if only clear liquid consumed): 19
201-250 give (units) for >30 gm carbohydrates solid food or full liquid (>45 gm if only clear liquid consumed): 21
251-300 give (units) for >30 gm carbohydrates solid food or full liquid (>45 gm if only clear liquid consumed): 23
301-350 give (units) for >30 gm carbohydrates solid food or full liquid (>45 gm if only clear liquid consumed): 25
351-400 give (units) for >30 gm carbohydrates solid food or full liquid (>45 gm if only clear liquid consumed): 27
>401 give (units) AND NOTIFY for >30 gm carbohydrates solid food or full liquid (>45 gm if only clear liquid consumed): 29 [facility] Medication administered onsite bacitracin ointment [id number] 01/18/2021 12:00:00 PM EDT Topical active Topical, 2 Times Carol ly, First dose on [facility] 01/18/21 at 1200, For 3 days
Apply to nares
[facility] Medication administered onsite Chlorothiazide 28 MG/ML Injectable Solut ion chlorothiazide (DIURIL) injection 500 mg chlorothiazide (DIURIL) injection 500 mg 01/18/2021 11:45:00 AM EDT 500 mg Intravenous active 500 mg, Intravenous, 2 Times Daily, First dose (after last modification) on [facility] 01/18/21 at 1145, For 8 doses
Add 18 ml of sterile water for inj to vial = 28mg/ml
[facility] Medication administered onsite NIFEdipine (PROCARDIA XL) 24 hr tablet 60 mg [id number] 01/18/2021 10:45:00 AM EDT 60 mg Oral active 60 mg, O ral, Daily Standard, First dose on [facility] 01/18/21 at 1045, For 30 days
Do not crush or chew
[facility] Medication administered onsite Amlodipine 5 MG Oral Tablet amlodipine (NORVASC) table t 5 mg amlodipine (NORVASC) tablet 5 mg 01/18/2021 09:15:00 AM EDT 5 mg Oral completed 5 mg, Oral, Daily Standard, First dose on [facility] 01/18/21 at 0915, For 1 day
Check vital signs before administering
[facility] Medication administered onsite Sodium Chloride 0.111 MEQ/ML Nasal Solut ion sodium chloride (OCEAN) 0.65 % nasal spray 2 spray sodium chloride (OCEAN) 0.65 % nasal spray 2 spray 09:00:00 AM EDT 2 {spray} Each Nare active 2 spray, Each Nare, Three Times Daily Standard, First dose on [facility] 01/18/21 at 0900, For 30 days [facility] Medication administered onsite Sertraline 100 MG Oral Tablet sertraline (ZOLOFT) tabl et 100 mg sertraline (ZOLOFT) tablet 100 mg 01/18/2021 09:00:00 AM EDT 100 mg Oral active 100 mg, Oral, Daily Standard, First dose (after last modification) on [facility] 01/18/21 at 0900, For 26 doses [facility] Medication administered onsite pantoprazole 40 MG Delayed Release Oral Tablet pantoprazole (PROTONIX) EC tablet 40 mg pantoprazole (PROTONIX) EC tablet 40 mg 01/18/2021 07:30:00 AM E DT 40 mg Oral active 40 mg, Ora l, Before Breakfast, First dose (after last modification) on [facility] 01/18/21 at 0730, For 26 doses
Do not crush or chew
[facility] Medication administered onsite Metolazone 2.5 MG Oral Tablet metOLazone 2.5 MG Oral T ablet (ZAROXOLYN) metOLazone 2.5 MG Oral Tablet (ZAROXOLYN) 01/18/2021 12:00:00 AM EDT 2.5 mg Oral active Take 1 tablet by mariam th daily [facility] Insulin Glargine 100 UNT/ML Injectable S olution Insulin Glargine 100 UNIT/ML Subcutaneous Solution (LANTUS) Insulin Glargine 100 UNIT/ML Subcutaneou s Solution (LANTUS) 01/18/2021 12:00:00 AM EDT 30 U Subcutaneous aborted Inject 30 Units into the skin nightly [facility] 24 HR Nifedipine 60 MG Extended Release Oral Tablet NIFEdipine ER 60 MG Oral Tablet Extended Release 24 Hour (ADALAT CC) NIFEdipine ER 60 MG Oral Tablet Extended Release 24 Hour (ADALAT CC) 01/18/2021 12:00:00 AM EDT 60 mg Oral active Take 1 tablet by mouth daily [facility] torsemide 100 MG Oral Tablet Torsemide 100 MG Oral Tab let (DEMADEX) Torsemide 100 MG Oral Tablet (DEMADEX) 01/18/2021 12:00:00 AM EDT 100 mg Oral active Take 1 tablet by mariam th Two Times Daily Take 1 tablet in the morning and 1 tablet in the evening [facility] atorvastatin 40 MG Oral Tablet Atorvastatin Calcium 40 MG Oral Tablet (LIPITOR) Atorvastatin Calcium 40 MG Oral Tablet (LIPITOR) 01/18/2021 12:00:00 AM EDT 40 mg Oral active Take 1 tablet by mouth d [facility] Oxymetazoline hydrochloride 0.5 MG/ML Na kem [place] Oxymetazoline HCl 0.05 % Nasal Solution (AFRIN) Oxymetazoline HCl 0.05 % Nasal Solution (AFRIN) 2020 12:00:00 AM EDT 2 {spray} Nasal active 2 sprays by Nasal route Two Times Daily for 3 days [facility] Sodium Chloride 0.111 MEQ/ML Nasal Solut ion Saline Nasal Marion 0.65 % Nasal Solution (OCEAN) Saline Nasal Marion 0.65 % Nasal Solution (OCEAN) 01/18 12:00:00 AM EDT 2 {spray} Nasal active 2 sprays by Nasal route Three times daily [facility] Insulin Glargine 100 UNT/ML Injectable S olution insulin glargine (LANTUS) injection 30 Units insulin glargine (LANTUS) injection 30 Units 10:00:00 PM EDT 30 U Subcutaneous aborted 30 Units, Subcutaneous, Nightly, First dose (after last modification) on Fri01/17/21 at 2200, For 27 doses
For blood glucose less than 70 mg/dL: follow hypoglycemia protocol (CM H-) and notify provider. For blood glucose values between 70 mg/dL and 100 mg/dL at bedtime: provide snack (15 grams of carbohydrates) with some protein. Administer FULL DOSE of insulin glargine (LANTUS) after snack. Record snack in I&O's. For blood glucose more than 400 mg/dL: notify provider
[facility] Medication administered onsite POLYETHYLENE GLYCOL 3350 142 MG/ML Oral Solution polyethylene glycol (MIRALAX) packet 17 g polyethylene glycol (MIRALAX) packet 17 g 01/17/2021 0 9:00:00 PM EDT 17 g Oral active 17 g, Or al, 2 Times Daily, First dose on Fri01/17/21 at 2100, For 30 days
Mix in 8 ounces of water, juice or milk. Avoid use in patients who require thickened liquids due to potential increased risk for aspiration.
[facility] Medication administered onsite ropinirole 1 MG Oral Tablet ropinirole (REQUIP) tablet 2 mg ropinirole (REQUIP) tablet 2 mg 01/17/2021 09:00:00 PM EDT 2 mg Oral active 2 mg, Oral, 2 Times Daily, First dose (after last modification) on Fri01/17/21 at 2100, For 54 doses [facility] Medication administered onsite 60 ACTUAT Budesonide 0.08 MG/ACTUAT / fo rmoterol fumarate 0.0045 MG/ACTUAT Metered Dose Inhaler budesonide-formoterol (SYMBICORT) 80-4.5 MCG/ACT inhaler 2 puff budesonide-formoterol (SYMBICORT) 80-4.5 MCG/ACT inhal er 2 puff 01/17/2021 08:00:00 PM EDT 2 {puff} Inhalation active 2 puff, Inhalation, 2 Times Daily, First dose on Fri01/17/21 at 2000, For 11 days
Shake well before using
[facility] Medication administered onsite insulin lispro (HUMALOG) injection CUSTO MIZABLE DOSE INSULIN patients 1-25 Units [id number] 01/17/2021 06:00:00 PM EDT U Subcutaneous aborted 1-25 Units, Subcutaneous, Three Times Daily-With Meals, First dose on Fri01/17/21 at 1800, For 30 days
Nursing MUST open the 'SQ Insulin Dosing Charts' Sidebar Report, or, the Patient Summary or Summary Report within the ED.
Patient Type: Eating Meals
<70 give (units or other) for NPO or <15 gm carbohydrates solid food or full liquid (<30 gm if only clear liquid consumed): Hypoglycemia Protocol and then, once blood glucose level > 70 give insulin dose in 71-90 row regardless of new blood glucose level.
71-90 give (units) for NPO or <15 gm carbohydrates solid food or full liquid (<30 gm if only clear liquid consumed): 0
91-130 give (units) for NPO or <15 gm carbohydrates solid food or full liquid (<30 gm if only clear liquid consumed): 0
131-150 give (units) for NPO or <15 gm carbohydrates solid food or full liquid (<30 gm if only clear liquid consumed): 0
151-200 give (units) for NPO or <15 gm carbohydrates solid food or full liquid (<30 gm if only clear liquid consumed): 3
201-250 give (units) for NPO or <15 gm carbohydrates solid food or full liquid (<30 gm if only clear liquid consumed): 6
251-300 give (units) for NPO or <15 gm carbohydrates solid food or full liquid (<30 gm if only clear liquid consumed): 8
301-350 give (units) for NPO or <15 gm carbohydrates solid food or full liquid (<30 gm if only clear liquid consumed): 10
351-400 give (units) for NPO or <15 gm carbohydrates solid food or full liquid (<30 gm if only clear liquid consumed): 12
>401 give (units) AND NOTIFY for NPO or <15 gm carbohydrates solid food or full liquid (<30 gm if only clear liquid consumed): 14
<70 give (units or other) for 15-30 gm carbohydrates solid food or full liquid (30-45 gm if only clear liquid consumed): Hypoglycemia Protocol and then, once blood glucose level > 70 give insulin dose in 71-90 row regardless of new blood glucose level.
71-90 give (units) for 15-30 gm carbohydrates solid food or full liquid (30-45 gm if only clear liquid consumed): 4
91-130 give (units) for 15-30 gm carbohydrates solid food or full liquid (30-45 gm if only clear liquid consumed): 6
131-150 give (units) for 15-30 gm carbohydrates solid food or full liquid (30-45 gm if only clear liq uid consumed): 7
151-200 give (units) for 15-30 gm carbohydrates solid food or full liquid (30-45 gm if only clear liquid consumed): 8
201-250 give (units) for 15-30 gm carbohydrates solid food or full liquid (30-45 gm if only clear liquid consumed): 10
251-300 give (units) for 15-30 gm carbohydrates solid food or full liquid (30-45 gm if only clear liquid consumed): 12
301- 350 give (units) for 15-30 gm carbohydrates solid food or full liquid (30-45 gm if only clear liquid consumed): 14
351-400 give (units) for 15-30 gm carbohydrates solid food or full liquid (30-45 gm if only clear liquid consumed): 16
>401 give (units) AND NOTIFY for 15-30 gm carbohydrates solid food or full liquid (30-45 gm if only clear liquid consumed): 18
<70 give (units or other) for >30 gm carbohydrates solid food or full liquid (>45 gm if only clear liquid consumed): Hypoglycemia Protocol and then, once blood glucose level > 70 give insulin dose in 71-90 row regardless of new blood glucose level.
71-90 give (units) for >30 gm carbohydrates solid food or full liquid (>45 gm if only clear liquid consumed): 9
91-130 give (units) for >30 gm carbohydrates solid food or full liquid (>45 gm if only clear liquid consumed): 11
131-150 give (units) for >30 gm carbohydrates solid food or full liquid (>45 gm if only clear liquid consumed): 13
151-200 give (units) for >30 gm carbohydrates solid food or full liquid (>45 gm if only clear liquid consumed): 15
201-250 give (units) for >30 gm carbohydrates solid food or full liquid (>45 gm if only clear liquid consumed): 17
251-300 give (units) for >30 gm carbohydrates solid food or full liquid (>45 gm if only clear liquid consumed): 19
301-350 give (units) for >30 gm carbohydrates solid food or full liquid (>45 gm if only clear liquid consumed): 21
351-400 give (units) for >30 gm carbohydrates solid food or full liquid (>45 gm if only clear liquid consumed): 23
>401 give (units) AND NOTIFY for >30 gm carbohydrates solid food or full liquid (>45 gm if only clear liquid consumed): 25 [facility] Medication administered onsite Sodium Bicarbonate 650 MG Oral Tablet sodium bicarbona te tablet 650 mg sodium bicarbonate tablet 650 mg 01/17/2021 02:45:00 PM EDT 650 mg Oral active 650 mg, Oral, 2 Times Daily, First dose on Fri01/17/21 at 1445, For 30 days [facility] Medication administered onsite bumetanide (BUMEX) injection 4 mg [id number] 01/16/2021 05:15:00 PM EDT 4 mg Intravenous active 4 mg, In travenous, Every 12 hours, First dose on Fri01/16/21 at 1730, For 10 doses [facility] Medication administered onsite Calcitriol 0.57143 MG Oral Capsule calcitRIOL (ROCALTR OL) capsule 0.25 mcg calcitRIOL (ROCALTROL) capsule 0.25 mcg 01/16/2021 09:00:00 AM EDT 0.25 ug Oral active 0.25 mcg, Oral , Daily Standard, First dose on Fri01/16/21 at 0900, For 30 days [facility] Medication administered onsite Amlodipine 5 MG Oral Tablet amlodipine (NORVASC) table t 5 mg amlodipine (NORVASC) tablet 5 mg 01/16/2021 09:00:00 AM EDT 5 mg Oral aborted 5 mg, Oral, Daily Standard, First dose (after last modification) on Fri01/16/21 at 0900, For 7 doses [facility] Medication administered onsite Aspirin 81 MG Chewable Tablet aspirin chewable tablet 324 mg aspirin chewable tablet 324 mg 01/16/2021 07:00:00 AM EDT 324 mg Oral comp leted 324 mg, Oral, Once, On Fri01/16/21 at 0700, For 1 dose
Chew tablet before swallowing.
[facility] Medication administered onsite Oxymetazoline hydrochloride 0.5 MG/ML [facility] oxymetazoline (AFRIN) 0.05 % nasal spray 2 spray oxymetazoline (AFRIN) 0.05 % nasal spray 2 spray 01/15 09:00:00 PM EDT 2 {spray} Each Nare active 2 spray, Each Nare, 2 Times Daily, First dose on Fri01/15/21 at 2100, For 14 doses [facility] Medication administered onsite ferrous gluconate 324 MG Oral Tablet Ferrous Gluconate (FERGON) tablet 324 mg Ferrous Gluconate (FERGON) tablet 324 mg 01/15/2021 09:00:00 PM EDT 324 mg Oral active 324 mg, Oral, 2 Times Daily, First dose on Fri01/15/21 at 2100, For 30 days [facility] Medication administered onsite tramadol hydrochloride 50 MG Oral Tablet tramadol (ULT NOHEMI) tablet 50 mg tramadol (ULTRAM) tablet 50 mg 01/15/2021 07:08:36 PM EDT 50 mg Oral active 50 mg, Oral, Every 12 hours PRN, Moderate Pain (Pain Scale Score 4-6), Starting on Fri01/15/21 at 1908, For 4 days 22 hours [facility] Medication administered onsite Cyclobenzaprine hydrochloride 10 MG Oral Tablet cyclobenzaprine (FLEXERIL) tablet 10 mg cyclobenzaprine (FLEXERIL) tablet 10 mg 01/15/2021 06:57:42 PM EDT 10 mg Oral active 10 mg, Oral, Thr ee Times Daily-PRN, Muscle spasms, Starting on Fri01/15/21 at 1857, For 30 days [facility] Medication administered onsite Hydroxyzine Hydrochloride 10 MG Oral Tablet hydrOXYzin e (ATARAX) tablet 10 mg hydrOXYzine (ATARAX) tablet 10 mg 01/15/2021 06:57:18 PM EDT 10 mg Oral active 10 mg, Oral, Three Times Daily-PRN, Anxiety, Starting on Fri01/15/21 at 1857, For 30 days [facility] Medication administered onsite furosemide (LASIX) injection 80 mg [id number] 01/15/2021 03:15:00 PM EDT 80 mg Intravenous completed 80 mg, I ntravenous, Once, On Fri01/15/21 at 1515, For 1 dose
Notify provider if systolic blood pressure less than: 90 [facility] Medication administered onsite Amlodipine 5 MG Oral Tablet amlodipine (NORVASC) table t 10 mg amlodipine (NORVASC) tablet 10 mg 01/15/2021 09:00:00 AM EDT 10 mg Oral aborted 10 mg, Oral, Daily Standard, First dose on Fri01/15/21 at 0900, For 5 doses [facility] Medication administered onsite clopidogrel 75 MG Oral Tablet clopidogrel (PLAVIX) tab let 75 mg clopidogrel (PLAVIX) tablet 75 mg 01/15/2021 09:00:00 AM EDT 75 mg Oral active 75 mg, Oral, Daily Standard, First dose on Fri01/15/21 at 0900, For 30 days [facility] Medication administered onsite torsemide 20 MG Oral Tablet torsemide (DEMADEX) tablet 100 mg torsemide (DEMADEX) tablet 100 mg 01/15/2021 09:00:00 AM EDT 100 mg Oral aborted 100 mg, Oral, Daily Standard, First dose on Fri at 0900, For 30 days [facility] Medication administered onsite tiotropium (SPIRIVA RESPIMAT) inhalation spray 2 puff [id number] 01/15/2021 08:00:00 AM EDT 2 {puff} Inhalation active 2 pu ff, Inhalation, Daily RT, First dose on Fri01/15/21 at 0800, For 30 days [facility] Medication administered onsite Oxycodone Hydrochloride 5 MG Oral Tablet oxyCODONE (ROXICODONE) immediate release tablet 5 mg oxyCODONE (ROXICODONE) immediate release tablet 5 mg 01/14/2021 10:36:18 PM EDT 5 mg Oral aborted 5 mg, Oral, Every 6 hours PRN, Moderate Pain (Pain Scale Score 4-6), Starting on Fri01/14/21 at 2236, For 3 days
Oxycodone immediate release is limited to 10 mg per dose. Higher doses ( only) require Pain Service consultation and approval.
[facility] Medication administered onsite Insulin Glargine 100 UNT/ML Injectable S olution insulin glargine (LANTUS) injection 20 Units insulin glargine (LANTUS) injection 20 Units 10:00:00 PM EDT 20 U Subcutaneous aborted 20 Units, Subcutaneous, Nightly, First dose on Fri01/14/21 at 2200, For 30 days
For blood glucose less than 70 mg/dL: follow hypoglycemia protocol (CM ) and notify provider. For blood glucose values between 70 mg/dL and 100 mg/dL at bedtime: provide snack (15 grams of carbohydrates) with some protein. Administer FULL DOSE of insulin glargine (LANTUS) after snack. Record snack in I&O's. For blood glucose more than 400 mg/dL: notify provider
[facility] Medication administered onsite ropinirole 1 MG Oral Tablet ropinirole (REQUIP) tablet 1 mg ropinirole (REQUIP) tablet 1 mg 01/14/2021 09:00:00 PM EDT 1 mg Oral aborte d 1 mg, Oral, 2 Times Daily, First dose on 01/14/21 at 2100, For 30 days [facility] Medication administered onsite Isosorbide Dinitrate 20 MG Oral Tablet i sosorbide dinitrate (ISORDIL) tablet 20 mg isosorbide dinitrate (ISORDIL) tablet 20 mg 01/14/2021 09:00:00 PM EDT 20 mg Oral active 20 mg, Ora l, Three Times Daily Standard, First dose on 01/14/21 at 2100, For 30 days
Hazardous pharmaceutical waste - Black bin disposal.
[facility] Medication administered onsite atorvastatin 40 MG Oral Tablet atorvastatin (LIPITOR) tablet 40 mg atorvastatin (LIPITOR) tablet 40 mg 01/14/2021 09:00:00 PM EDT 40 mg Oral active 40 mg, Oral, Every evening, First dose on 01/14/21 at 2100, For 30 days [facility] Medication administered onsite Sertraline 100 MG Oral Tablet sertraline (ZOLOFT) tabl et 50 mg sertraline (ZOLOFT) tablet 50 mg 01/14/2021 09:00:00 PM EDT 50 mg Oral aborted 50 mg, Oral, 2 Times Daily, First dose on 01/14/21 at 2100, For 30 days [facility] Medication administered onsite 60 ACTUAT Budesonide 0.16 MG/ACTUAT / fo rmoterol fumarate 0.0045 MG/ACTUAT Metered Dose Inhaler budesonide-formoterol (SYMBICORT) 160-4.5 MCG/ACT inhaler 2 puff budesonide-formoterol (SYMBICORT) 160-4.5 MCG/ACT inha ler 2 puff 01/14/2021 08:00:00 PM EDT 2 {puff} Inhalation aborted 2 puff, Inhalation, 2 Times Daily, First dose on 01/14/21 at 2000, For 14 days
Shake well before using
[facility] Medication administered onsite Hydralazine Hydrochloride 20 MG/ML Injec table Solution hydrALAZINE (APRESOLINE) injection 20 mg hydrALAZINE (APRESOLINE) injection 20 mg 01/14/2021 06 :45:00 PM EDT 20 mg Intravenous completed 20 mg, Intravenous, Once, On 01/14/21 at 1845, For 1 dose
Dilute in 25-50 mL normal saline. Administer over 30 minutes.
[facility] Medication administered onsite Hydralazine Hydrochloride 20 MG/ML Injec table Solution hydrALAZINE (APRESOLINE) injection 10 mg hydrALAZINE (APRESOLINE) injection 10 mg 01/14/2021 06 :43:32 PM EDT 10 mg Intravenous active 10 m g, Intravenous, Every 6 hours PRN, Hypertension, SBP >175 and DBP >110, Starting on Fri01/14/21 at 1843, For 5 days 22 hours
Dilute in 25-50 mL normal saline. Administer over 30 minutes.
[facility] Medication administered onsite Acetaminophen 325 MG Oral Tablet acetaminophen (TYLENO L) tablet 650 mg acetaminophen (TYLENOL) tablet 650 mg 01/14/2021 06:01:55 PM EDT 65 0 mg Oral active 650 mg, Oral, E very 6 hours PRN, Mild Pain (Pain Scale Score 1- 3), Starting on Fri01/14/21 at 1801, For 30 days
Maximum daily dose of acetaminophen is 3,000 mg from all sources in 24 hours.
[facility] Medication administered onsite carvedilol 6.25 MG Oral Tablet carvedilol (COREG) tabl et 25 mg carvedilol (COREG) tablet 25 mg 01/14/2021 06:00:00 PM EDT 25 mg Oral active 25 mg, Oral, 2 Times Daily With Meals, First dose on 01/14/21 at 1800, For 30 days
Check vital signs before administering
[facility] Medication administered onsite rivaroxaban 15 MG Oral Tablet rivaroxaban (XARELTO) ta blet 15 mg rivaroxaban (XARELTO) tablet 15 mg 01/14/2021 06:00:00 PM EDT 15 mg Oral active Atrial Fibrillation 15 mg, Oral, Daily with Dinn er, Indications: Atrial Fibrillation, First dose on Fri01/14/21 at 1800, For 30 days [facility] Atrial Fibrillation Medication administered onsite insulin lispro (HumaLOG) injection HIGH DOSE EATING IN SULIN patients 1-22 Units [id number] 01/14/2021 06:00:00 PM EDT U Subcutaneous aborted 1-22 Units, Subcutaneous, Three Times Daily-With Meals, First dose on 01/14/21 at 1800, For 30 days
Nursing MUST open the 'SQ Insulin Dosing Charts' Sidebar Report, or, the Patient Summary or Summary Report within the ED.
[facility] Medication administered onsite perflutren lipid microspheres (DEFINITY) injectable suspensi on 9.78 mg [id number] 01/14/2021 05:50:15 PM EDT 1.5 mL Intravenous active 9.78 mg (1.5 mL), Intravenous, Once PRN, Other, Echo imaging enhancement, Starting on 01/14/21 at 1750, For 5 days 23 hours [facility] Medication administered onsite Ceftriaxone 1000 MG Injection cefTRIAXone (ROCEPHIN) i nfusion 1 g (premix) cefTRIAXone (ROCEPHIN) infusion 1 g (premix) 01/14/2021 05:45:00 PM EDT 1 g Intravenous aborted 1 g, Intraven ous, at 100 mL/hr, Every 24 hours, First dose on [place] 01/14/21 at 1745, For 7 days
Discouraged Uses: Empiric treatment of post-surgical meningitis (ceftazidime preferred)
[facility] Medication administered onsite furosemide (LASIX) injection 80 mg [id number] 01/14/2021 05:45:00 PM EDT 80 mg Intravenous completed 80 mg, I ntravenous, Once, On 01/14/21 at 1745, For 1 dose
Notify provider if systolic blood pressure less than: 90 [facility] Medication administered onsite azithromycin in NaCl 0.9 % 250 mL infusion 500 mg 01/14/2021 05:45:00 PM EDT 500 mg Intravenous aborted 500 mg, Intr avenous, at 250 mL/hr, Every 24 hours, First dose on 01/14/21 at 1745, For 5 days [facility] Medication administered onsite pantoprazole 40 MG Delayed Release Oral Tablet pantoprazole (PROTONIX) EC tablet 40 mg pantoprazole (PROTONIX) EC tablet 40 mg 01/14/2021 05:30:00 PM E DT 40 mg Oral aborted 40 mg, Ora l, Two times daily before breakfast and dinner, First dose on 01/14/21 at 1730, For 30 days
Do not crush or chew
[facility] Medication administered onsite albuterol (PROVENTIL HFA) inhaler 2 puff [id number] 01/14/2021 05:14:29 PM EDT 2 {puff} Inhalation active 2 pu ff, Inhalation, Every 6 hours PRN, Wheezing, Starting on 01/14/21 at 1714, For 6 days 23 hours
Shake the inhaler well before each spray.
[facility] Medication administered onsite Glucagon 1 MG Injection glucagon (human recombinant) ( GLUCAGEN) injection 1 mg glucagon (human recombinant) (GLUCAGEN) injection 1 mg 01/14/2021 05:09:51 PM EDT 1 mg Intramuscular active 1 mg, Intramuscular, PRN, for glucose <55 without IV access, Starting on 01/14/21 at 1709, For 30 days [facility] Medication administered onsite dextrose 50 % IV solution 25 mL [id number] 01/14/2021 05:09:51 PM E DT 25 mL Intravenous active 25 mL, Intrav enous, PRN, Other, blood glucose <55, Starting on 01/14/21 at 1709, For 30 days
Not for midline administration.
[facility] Medication administered onsite Glucose 0.417 MG/MG Oral Gel glucose (GLUTOSE) 40 % or al gel 15 g glucose (GLUTOSE) 40 % oral gel 15 g 01/14/2021 05:09:51 PM EDT 15 g Oral active 15 g, Oral, PRN, Low blood s ugar, for gluose 55-69 mg/dl and able to take PO, Starting on 01/14/21 at 1709, For 30 days [facility] Medication administered onsite carvedilol 25 MG Oral Tablet Carvedilol 25 MG Oral Tab let (COREG) Carvedilol 25 MG Oral Tablet (COREG) 2020 12:00:00 AM EDT 25 mg Oral active Take 25 mg by mouth Two times daily with meals [facility] ropinirole 1 MG Oral Tablet rOPINIRole HCl 1 MG Oral T ablet (REQUIP) rOPINIRole HCl 1 MG Oral Tablet (REQUIP) 12/10/2020 12:00:00 AM EDT 2 mg Oral active Take 2 mg by mouth Two Times Daily [facility] Calcitriol 0.34243 MG Oral Capsule Calcitriol 12/04/2020 12:00:00 AM E DT active [facility] (George Minor MD) tramadol hydrochloride 50 MG Oral Tablet Tramadol HCL 12/04/2020 12:00:00 AM EDT active [facility] (Mariama Minor MD) Cyclobenzaprine hydrochloride 10 MG Oral Tablet Cyclobenzapr ine HCL 12/04/2020 12:00:00 AM EDT active M [facility] (George Minor MD) Amlodipine 10 MG Oral Tablet amLODIPine Besylate 10 MG Oral Tablet (NORVASC) amLODIPine Besylate 10 MG Oral Tablet (NORVASC) 11/13/2020 12:00:00 AM EDT 10 mg Oral aborted Take 10 mg by mouth [facility] ammonium lactate 120 MG/ML Topical Cream Ammonium Lactate 12 % External Cream (AMLACTIN) Ammonium Lactate 12 % External Cream (AMLACTIN) 2020 12:00:00 AM EST aborted APPLY TO FEET DA [facility] ammonium lactate 120 MG/ML Topical Cream Ammonium Lactate 10/27/2020 12:00:00 AM EST active [facility] ([facility] Trelegy Ellipta 100-62.5-25 MCG/INH Aerosol Powder [place] Activated [id number] 10/15/2020 12:00:00 AM EST 1 {puff} Inhalation activ e Inhale 1 puff into the lungs daily [facility] torsemide 100 MG Oral Tablet Torsemide 100 MG Oral Tab let (DEMADEX) Torsemide 100 MG Oral Tablet (DEMADEX) 10/10/2020 12:00:00 AM EST 100 mg Oral aborted Take 100 mg by mouth every morni ng And 50 mg nightly. [facility] rivaroxaban 15 MG Oral Tablet [Xarelto] Xarelto 10/09/2020 12:00:0 0 AM EST active [facility] (Mariama Minor MD) Trelegy Ellipta Trelegy Ellipta 10/05/2020 12:00:00 AM EST ORAL active [facility] (George ramirez MD) cefdinir 300 MG Oral Capsule Cefdinir 300 MG Oral Caps ule (CEFDINYL) Cefdinir 300 MG Oral Capsule (CEFDINYL) 09/13/2020 12:00:00 AM EST aborted [facility] Levofloxacin 500 MG Oral Tablet Levofloxacin 07/19/2020 12:00:[address] ORAL completed [facility] ([facility]) Allevyn 2X2 07/17/2020 12:00:00 AM EST active [facility] ([facility]) Apply To Right Hallux Everyn 3 Days 07/17/2020 12:00:00 AM EST active [facility] ([facility]) atorvastatin 40 MG Oral Tablet Atorvastatin Calcium 40 MG Oral Tablet (LIPITOR) Atorvastatin Calcium 40 MG Oral Tablet (LIPITOR) 04/13/2020 12:00:00 AM EDT 40 mg Oral aborted Take 40 mg by mouth [facility] clopidogrel 75 MG Oral Tablet clopidogrel (PLAVIX) 75 MG tablet clopidogrel (PLAVIX) 75 MG tablet 03/29/2020 12:00:00 AM EDT 75 mg Oral aborted Take 1 tablet (75 mg total) by mouth nightly [facility] Aspirin 81 MG Delayed Release Oral Tablet aspirin 81 M G EC tablet aspirin 81 MG EC tablet 05/21/2019 12:00:00 AM EDT 81 mg Oral aborted Take 81 mg by mouth daily [facility] HUMULIN R U-500 KWIKPEN 500 UNIT/ML SOPN [id number] 05/07/2019 12:00:00 AM EDT 70 U Subcutaneous aborted Inj ect 70 Units under the skin 3 (three) times a day with meals [facility] Acetaminophen 325 MG / Oxycodone Hydroch loride 5 MG Oral Tablet oxyCODONE- acetaminophen (PERCOCET) 5-325 MG per tablet oxyCODONE-acetaminophen (PERCOCET) 5-325 MG per tablet 1 {tbl} Oral aborted Take 1 tablet by mouth every 8 (eight) hours as needed for pain [facility] Hydralazine Hydrochloride 25 MG Oral Tab let hydrALAZINE (APRESOLINE) 25 MG tablet hydrALAZINE (APRESOLINE) 25 MG tablet 25 mg Oral aborted Take 25 mg by mouth 2 (two) times a day [facility] Metolazone 2.5 MG Oral Tablet metolazone (ZAROXOLYN) 2 .5 MG tablet metolazone (ZAROXOLYN) 2.5 MG tablet 2.5 mg Oral aborted Take 2.5 mg by mouth daily [facility] carvedilol 25 MG Oral Tablet carvedilol (COREG) 25 MG tablet carvedilol (COREG) 25 MG tablet 25 mg Oral aborted [place] e 25 mg by mouth 2 (two) times a day [facility] Amlodipine 10 MG Oral Tablet amLODIPine (NORVASC) 10 M G tablet amLODIPine (NORVASC) 10 MG tablet 10 mg Oral aborted Take 10 mg by mouth nightly [facility] Regular Insulin, Human 500 UNT/ML Inject able Solution insulin U-500 (HUMULIN R) 500 UNIT/ML concentrated injection insulin U-500 (HUMULIN R) 500 UNIT/ML concentrated injection Subcutaneous abort ed Inject into the skin Three times daily with meals 50 units with breakfast and lunch and 45 units with dinner. [facility] Insurance Providers Payer name Policy type / Coverage type Policy ID Covered constitution party ID Covered constitution party's relationship to nassar Policy [place] Plan Information BS [facility] Part B [id number] Self Y [id number] BS [facility] Part B [id number] Self Y [id number] BS [facility] Part B [id number] Self Y [id number] [facility] Part B [id number] Self Y [id number] BS [place] [facility] Part B [id number] Self Y [id number] BS [place] [employer] Part B [id number] Self Y [id number] [facility] Part B [id number] Self [id number] [facility] Part B [id number] Self [id number] [facility] Part B [id number] Self [id number] [facility] Part B [id number] Self [id number] [facility] Part B [id number] Self [id number] [facility] Part B [id number] Self [id number] BS [place] [facility] [facility] [id number] Self Y [id number] BS [place] [facility] [id number] Self Y [id number] BS [place] [facility] [id number] Self Y [id number] BS [place] [facility] [id number] Self Y [id number] BS [place] [facility] [id number] Self Y [id number] BS [place] [facility] [id number] Self Y [id number] MEDICARE [id number] SP [id number] A BLUE CROSS MEDICARE ADVANTAGE [id number] S [id number] BLUE CROSS MEDICARE ADVANTAGE [id number] S [id number] [place] Primary [id number] Self 0 [id number] Medicare [place] Medicare Primary [id number] Self 0 [id number] [place] Medicare Primary [id number] Self 0 [id number] Medicare [place] Medicare Primary [id number] Self 0 [id number] Medicare [place] Primary [id number] Self 0 [id number] AETNA MEDICARE [id number] SP [id number] [id number] EXCELLUS BCBS MEDICARE Medicare [id number] [id number] EXCELLUS MEDICARE BLUE PPO G [id number] Self [id number] [employer] MEDICARE [id number] Regina [id number] EXCELLUS BCBS MEDICARE [id number] Regina [id number] EXCELLUS BCBS MCR HMO [id number] S [id number] EXCELLUS BCBS MCR HMO [id number] S [id number] FINANCIAL ASSISTANCE [id number] S [id number] FINANCIAL ASSISTANCE [id number] Other [id number] INSURANCE COVID-19 COVID Regina C OVID [id number] A MEDICARE [id number] SP [id number] BLUE CROSS MEDICARE ADVANTAGE [id number] Other [id number] EXCELLUS CN[place] MEDICARE HM [id number] 18 [id number] EXCELLUS BCBS B [id number] S [id number] BLUE CROSS BLUE SHIELD MCR - PROFEE [id number] 1 [id number] BLUE CROSS BLUE SHIELD MCR -OP [id number] 18 [id number] BLUE CROSS BLUE SHIELD MCR -IP [id number] 18 [id number] MEDICARE BLUE PPO 306 [id number] SP [id number] AETNA MEDICARE [id number] SP MEBPZ [id number] EXCELLUS BCBS MEDICARE Medicare [facility] ANSI-Medicare Part B [id number] ANSI-Medicare Part B [id number] ANSI-Medicare Part B [id number] ANSI-Medicare Part B [id number] [facility] [id number] [facility] [id number] MEDICARE [id number] SP [id number] A AETNA MEDICARE O [id number] S MEBPZ 4JM MEDICARE [id number] SP [id number] A AETNA MEDICARE [id number] SP MEBPZ 4JM MEDICARE [id number] SP [id number] A MEDICAID UNAVAILABLE UNAVAILA BLE Medicare [place] Medicare Primary [id number] Self 0 [id number] AETNA MEDICARE O [id number] S [id number] AETNA MEDICARE [id number] SP [id number] [facility] [place] [id number] SP [id number] [employer] CO -O/P [id number] 18 [id number] MEDICARE -O/P [id number] 18 [id number] MEDICARE -PHYSICIAN [id number] 18 [id number] [employer] -PHYSICIAN [id number] 18 [id number] MEDICARE BLUE PPO 306 [id number] SP [id number] Problems, Conditions, and Diagnoses Code Display Name Description Problem Type Effective Dates Data Source(s) Z91.11 Patient's noncompliance with dietary reg imen PATIENT'S NONCOMPLIANCE WITH DIETARY REGIMEN Diagnosis 05/04/2021 09:29:00 AM EDT [facility] Z91.19 Patient's noncompliance with other medic al treatment and regimen PATIENT'S NONCOMPLIANCE W OTH MEDICAL TREATMENT AND REGIMEN Diagnosis 05/04/2021 09:29:00 AM EDT [facility] E78.5 Hyperlipidemia, unspecified HYPERLIPIDEMIA, UNSPECIFIE D Diagnosis 05/04[facility] [facility] Essential (primary) hypertension ESSENTIAL (PRIMARY) H YPERTENSION Diagnosis 05/04/2021 09:29:00 AM EDT [facility] E11.65 Type 2 diabetes mellitus with hyperglyce kristyn TYPE 2 DIABETES MELLITUS WITH HYPERGLYCEMIA Diagnosis 05/04/2021 09:29:00 AM EDT [facility] G47.30 Sleep apnea, unspecified Sleep apnea, unspecified Diag nosis 02/07/2021 03:03:00 PM EDT [facility] I21.9 Acute myocardial infarction, unspecified Acute myocardial infarction, unspecified Diagnosis 02/07/2021 03:03:00 PM EDT [facility] N18.4 Chronic kidney disease, stage 4 (severe) Chronic kidney disease, stage 4 (severe) Diagnosis 02/07/2021 03:03:00 PM EDT [facility] I11.0 Hypertensive heart disease with heart fa ilure Hypertensive heart disease with heart failure Diagnosis 01/14/2021 11:59:00 AM [facility] R77.8 Other specified abnormalities of plasma proteins Other specified abnormalities of plasma proteins Diagnosis 01/14/2021 11:59:00 AM [facility] R94.31 Abnormal electrocardiogram [ECG] [EKG] A bnormal electrocardiogram (ECG) (EKG) Diagnosis 01/14/2021 11:59:00 AM [facility] R06.02 Shortness of breath Shortness of breath Diagnosis 0 01/14/2021 11:59:00 AM [facility] I50.9 Heart failure, unspecified Heart failure, unspecified Diagnosis 01/14/2021 11:59:00 AM [facility] R07.9 Chest pain, unspecified Chest pain, unspecified Diagno sis 01/14/2021 11:59:00 AM [facility] J96.01 Acute respiratory failure with hypoxia A cute respiratory failure with hypoxia Diagnosis 01/14/2021 11:59:00 AM [facility] NSTEMI NSTEMI Diagnosis 01/14/2021 11:59:00 AM [facility] E04.0 Nontoxic diffuse goiter NONTOXIC DIFFUSE GOITER Diagno sis 01/10/2021 01:07:00 PM [facility] E03.9 Hypothyroidism, unspecified HYPOTHYROIDISM, UNSPECIFIE D Diagnosis 01/10/2021 01:07:00 PM [facility] 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) USE OF INSULIN Diagnosis 11/06/2020 02:38:00 PM [facility] Z91.14 Patient's other noncompliance with medic ation regimen PATIENT'S OTHER NONCOMPLIANCE WITH MEDICATION REGIMEN Diagnosis 11/06/2020 02:38:00 PM [facility] E11.319 Type 2 diabetes mellitus wit h unspecified diabetic retinopathy without macular edema TYPE 2 DIABETES W UNSP DIABETIC RTNOP W/O MACULAR EDEMA Diag nosis 11/06/2020 02:38:00 PM [facility] [id number] Pain in right foot Pain in right foot Diagnosis 09:36:00 AM [facility] L84 Corns and callosities Corns and callosities Diagnosis 08/22/2020 09:36:00 AM [facility] 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 Diagnosis 08/22/2020 09:36: 00 AM [facility] B351 Tinea unguium Tinea unguium Diagnosis 08/22/2020 09:36:00 AM [facility] M2040 Other hammer toe(s) (acquired), unspecif ied foot Other hammer toe(s) (acquired), unspecified foot Diagnosis 08/22/2020 09:36:00 AM [facility] [id number] Contusion of right lesser toe(s) with da mage to nail, initial encounter Contusion of right lesser toe(s) with damage to nail, initial encounter Diagnosis 08/22/2020 09:36:00 AM [facility] E1151 Type 2 diabetes mellitus wit h diabetic peripheral angiopathy without gangrene Type 2 diabetes mellitus with diabetic p eripheral angiopathy without gangrene Diagnosis 08/22/2020 09:36:00 AM [facility] Q21094 Pain in left foot Pain in left foot Diagnosis 07/13/2020 02:34:00 PM [facility] [id number] Pressure ulcer of other site, stage 3 Pr essure ulcer of other site, stage 3 Diagnosis 07/13/2020 02:34:00 PM [facility] Z952 Presence of prosthetic heart valve Presence of p rosthetic heart valve Diagnosis 07/05/2020 03:34:00 PM [facility] Z951 Presence of aortocoronary bypass graft P resence of aortocoronary bypass graft Diagnosis 07/05/2020 03:34:00 PM [facility] Z7901 USP (current) use of anticoagulant s USP (current) use of anticoagulants Diagnosis 07/05/2020 03:34:00 PM [facility] Z794 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 [employer] terminal (current) use of insulin USP (cu rrent) use of insulin Diagnosis 07/05/2020 03:34:00 PM [facility] 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 [facility] (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 therapy Diagnosis 07/05/2020 03:34:00 PM [facility] Z7982 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 [employer] terminal (current) use of aspirin USP (cu rrent) use of aspirin Diagnosis 07/05/2020 03:34:00 PM [facility] [id number] Presence of other cardiac implants and g rafts Presence of other cardiac implants and grafts Diagnosis 07/05/2020 03:34:00 PM [facility] U25222 Personal history of pulmonary embolism P ersonal history of pulmonary embolism Diagnosis 07/05/2020 03:34:00 PM [facility] E1122 Type 2 diabetes mellitus with diabetic c hronic kidney disease Type 2 diabetes mellitus with diabetic chronic kidney disease Diagnosis 07/05/2020 03:34:00 PM [facility] N184 Chronic kidney disease, stage 4 (severe) Chronic kidney disease, stage 4 (severe) Diagnosis 07/05/2020 03:34:00 PM [facility] 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 and stage 1 through stage 4 chronic kidney disease, or unspecified chronic kidney disease Hypertensive heart and chronic kidney disease with heart failure and stage 1 through stage 4 chronic kidney disease, or unspecified chronic kidney disease Diagnosis 07/05/2020 03:34:00 PM [facility] J449 Chronic obstructive pulmonary disease, u nspecified Chronic obstructive pulmonary disease, unspecified Diagnosis 07/05/2020 03:34:00 PM EST [facility] E7800 Pure hypercholesterolemia, unspecified P ure hypercholesterolemia, unspecified Diagnosis 07/05/2020 03:34:00 PM [facility] I509 Heart failure, unspecified Heart failure, unspecified Diagnosis 07/05/2020 03:34:00 PM [facility] I4820 Chronic atrial fibrillation, unspecified Chronic atrial fibrillation, unspecified Diagnosis 07/05/2020 03:34:00 PM [facility] I2510 Atherosclerotic heart diseas e of [place] coronary artery without angina pectoris Atherosclerotic heart disease of [place] coronary artery without angina pectoris Diagnosis 07/05/2020 03:34:00 PM [facility] Q54192 Cellulitis of right lower limb Cellulitis of right low er limb Diagnosis 07/05/2020 03:34:00 PM [facility] E31223 Subacute osteomyelitis, right ankle and foot Subacute osteomyelitis, right ankle and foot Diagnosis 07/05/2020 03:34:00 PM [facility] R2241 Localized swelling, mass and lump, right lower limb Localized swelling, mass and lump, right lower limb Diagnosis 07/05/2020 03:34:00 PM [facility] [id number] Blister (nonthermal), left great toe, in itial encounter Blister (nonthermal), left great toe, initial encounter Diagnosis 2019 02:03:00 PM [facility] Y9289 Other specified places as the place of o ccurrence of the external cause Other specified places as the place of occurrence of the external cause Diagnosis [facility]31[id number] Exposure to other specified factors, ini tial encounter Exposure to other specified factors, initial encounter Diagnosis 05/31/2020 04:25:00 PM [facility] E119 Type 2 diabetes mellitus without complic ations Type 2 diabetes mellitus without complications Diagnosis [facility] Hypertensive heart disease with heart fa ilure Hypertensive heart disease with heart failure Diagnosis 05/31/2020 04:25[facility] [id number] Laceration without foreign b vivek of right index finger without damage to nail, initial encounter Laceration without foreign body of right index finger without damage to nail, initial encounter Diagnosis 05/31/2020 04:25:0 0 PM [facility] [id number] Unspecified open wound of ri ght index finger without damage to nail, initial encounter Unspecified open wound of right index fi nger without damage to nail, initial encounter Diagnosis 05/31/2020 04:25:00 PM [facility] Y92.010 Kitchen of single-family (pr ivate) house as the place of occurrence of the external cause KITCHEN OF SINGLE-FAMILY (PRIVATE) HOUSE PLACE Diagnosis 05/30/2020 11:46:00 AM [facility] W26.8XXA Contact with other sharp obj ect(s), not elsewhere classified, initial encounter CONTACT WITH OTHER SHARP OBJECT(S), NEC, INITIAL ENCOUNTER D iagnosis 05/30/2020 11:46:00 AM [facility] Z95.2 Presence of prosthetic heart valve PRESENCE OF P ROSTHETIC HEART VALVE Diagnosis 05/30/2020 11:46:00 AM [facility] Z95.1 Presence of aortocoronary bypass graft P RESENCE OF AORTOCORONARY BYPASS GRAFT Diagnosis 05/30/2020 11:46:00 AM [facility] Z79.01 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 (current) use of anticoagulant s 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 CUTTER (CURRENT) USE OF ANTICOAGULANTS Diagnosis 05/30/2020 11:46:00 AM [facility] I25.10 Atherosclerotic heart diseas e of [place] coronary artery without angina pectoris ATHSCL HEART DISEASE OF [place] CORONARY ARTERY W/O ANG PCTRS Diagnosis 05/30/2020 11:46:00 AM [facility] Z79.4 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 (current) use of insulin CARE HOME (CU RRENT) USE OF INSULIN Diagnosis 05/30/2020 11:46:00 AM [facility] E11.9 Type 2 diabetes mellitus without complic ations TYPE 2 DIABETES MELLITUS WITHOUT COMPLICATIONS Diagnosis 05/30/2020 11:46:00 AM [facility] 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 PERSONAL HISTORY OF METHICILLIN RESIS STAPH INFECTION Diagno sis 05/30/2020 11:46:00 AM EDT [facility] S61.215A Laceration without foreign b vivek of left ring finger without damage to nail, initial encounter LACERATION W/O FB OF L RNG FNGR W/O DONYA GE TO NAIL, INIT Diagnosis 05/30/2020 11:46:00 AM EDT [facility] normantal S61.012A Laceration without foreign b vivek of left thumb without damage to nail, initial encounter LACERATION W/O FB OF LEFT THUMB W/O DAMAGE TO NAIL, IN IT Diagnosis 05/30/2020 11:46:00 AM EDT [facility] S61.213A Laceration without foreign b vivek of left middle finger without damage to nail, initial encounter LACERATION W/O FB OF L MID FINGER W/O DA MAGE TO NAIL, INIT Diagnosis 05/30/2020 11:46:[id number] Unspecified place in unspeci fied non-institutional (private) residence as the place of occurrence of the external cause Unspecified place in unspecified non-institutional (private) residence as the place of occurrence of the external cause Diagnosis 05/19/2020 07:31:00 PM EDT [facility] Z23 Encounter for immunization Encounter for immunization Diagnosis 05/19/2020 07:31:00 PM EDT [facility] [id number] Unspecified open wound of ri ght great toe without damage to nail, initial encounter Unspecified open wound of right great to e without damage to nail, initial encounter Diagnosis 05/19/2020 07:31:00 PM EDT [facility] [id number] Unspecified injury of right foot, initia l encounter Unspecified injury of right foot, initial encounter Diagnosis 05/19/2020 07:31:00 PM EDT [facility] I21.9 Acute myocardial infarction Acute myocardial infarctio n [id number] 02/07/2021 12:00:00 AM EDT [facility] I21.4 Non-ST elevation (NSTEMI) myocardial inf arction Non-ST elevation (NSTEMI) myocardial infarction [id number] 02/07/2021 12:00:00 AM EDT [facility] L84 Callosity Callosity Problem 11/01/2020 12:00:00 AM ES T [facility] ([facility] B35.1 Onychomycosis Onychomycosis Problem 11/01/2020 12:00:00 AM EST [facility] ([facility] E11.621 Type 2 diabetes mellitus with ulcer Type 2 diabe rashawn mellitus with ulcer Problem 08/16/2020 12:00:00 AM EST - 11/01/2020 12:00:00 AM ES T [facility] ([facility] L89.892 Pressure ulcer of other site, stage 2 Pr essure ulcer of other site, stage 2 Problem 08/16/2020 12:00:00 AM EST - 11/01/2020 12:00:00 AM EST [facility] ([facility] M86.171 Acute osteomyelitis of ankle and/or foot Acute osteomyelitis of ankle and/or foot Problem 08/16/2020 12:00:00 AM EST - 11/01/2020 12:00:00 AM EST [facility] ([facility] E11.42 Type 2 diabetes mellitus with diabetic p olyneuropathy Type 2 diabetes mellitus with diabetic polyneuropathy Problem 08/16/2020 12:00:00 AM EST [facility] ([facility] [id number] Pressure ulcer of right foot stage 3 Pre ssure ulcer of right foot stage 3 Problem 07/13/2020 12:00:00 AM EST [facility] ([facility]) [id number] Blister of toe without infection Blister of toe without infection Problem 05/22/2020 12:00:00 AM EDT [facility] ([facility]) Surgeries/Procedures Procedure Description Date Indications Data Source(s) OFFICE OUTPATIENT VISIT 15 MINUTES 06/18/2021 12:00:00 AM EDT [facility] ([facility], ) ECG ROUTINE ECG W/LEAST 12 LDS W/I&R 05/10/2021 12:00: 00 AM EDT [facility] ([facility]) OFFICE OUTPATIENT VISIT 25 MINUTES 05/10/2021 12:00:[facility] clinic visit for assessment and ma nagement of a patient Hospital Outpatient Clinic Visit 05/04/2021 12:00:00 AM EDT [facility] GLUC BLD GLUC MNTR DEV CLEARED FDA SPEC HOME USE GLUCOSE BLO OD TEST 05/04/2021 12:00:00 AM EDT [facility] OFFICE OUTPATIENT VISIT 15 MINUTES 04/30/2021 12:00:00 AM EDT [facility] ([facility], ) PARING/CUTTING BENIGN HYPERKERATOTIC LESION 1 03/13/20 12:00:00 AM EDT [facility] ([facility] DEBRIDEMENT NAIL ANY METHOD 03/13/2021 12:00:00 AM EDT [facility] ([facility] ECG ROUTINE ECG W/LEAST 12 LDS W/I&R 02/26/2021 12:00: 00 [facility] OUTPATIENT VISIT 25 MINUTES 02/26/2021 12:00:00 AM EDT [facility] ([facility]) GLUC BLD GLUC MNTR DEV CLEARED FDA SPEC HOME USE <td>P OCT GLUCOSE</td><td>Routine</td><td>02/11/2021 1:55 PM EDT</td><td></td><td> </td> 02/11/2021 01:55:00 PM EDT [facility] GLUC BLD GLUC MNTR DEV CLEARED FDA SPEC HOME USE <td>P OCT GLUCOSE</td><td>Routine</td><td>02/11/2021 9:15 AM EDT</td><td></td><td> </td> 02/11/2021 09:15:00 AM EDT [facility] BLOOD COUNT COMPLETE AUTOMATED <td>CBC</td><td>Timed</ td><td>02/11/2021 6:29 AM EDT</td><td></td><td> </td> 02/11/2021 06:29:00 AM EDT [facility] BASIC METABOLIC PANEL CALCIUM TOTAL <td>BASIC METABOLI C PANEL</td><td>Timed</td><td>02/11/2021 6:29 AM EDT</td><td></td><td> </td> 02/11/2021 06:29:00 AM EDT [facility] GLUC BLD GLUC MNTR DEV CLEARED FDA SPEC HOME USE <td>P OCT GLUCOSE</td><td>Routine</td><td>02/10/2021 9:25 PM EDT</td><td></td><td> </td> 02/10/2021 09:25:00 PM EDT [facility] GLUC BLD GLUC MNTR DEV CLEARED FDA SPEC HOME USE <td>P OCT GLUCOSE</td><td>Routine</td><td>02/10/2021 6:57 PM EDT</td><td></td><td> </td> 02/10/2021 06:57:00 PM EDT [facility] BLOOD TYPING ABO <td>TYPE AND SCREEN</td><td> Routine</td><td>02/10/2021 1:44 PM EDT</td><td></td><td> </td> 02/10/2021 01:44:00 PM EDT [facility] GLUC BLD GLUC MNTR DEV CLEARED FDA SPEC HOME USE <td>P OCT GLUCOSE</td><td>Routine</td><td>02/10/2021 1:42 PM EDT</td><td></td><td> </td> 02/10/2021 01:42:00 PM EDT [facility] BLOOD OCCULT PEROXIDASE ACTV QUAL FECES 1 DETER <td>OC CULT BLOOD X 1, STOOL</td><td>Routine</td><td>02/10/2021 12:40 PM EDT</td><td></td><td> </td> 02/10/2021 12:40:00 PM EDT [facility] DUP-SCAN LXTR ART/ARTL BPGS UNI/LMTD STUDY <td>US COLO R DOPPLER LOWER EXTREMITY ARTERIES LIMITED RIGHT</td><td>Routine</td><td>02/10/2021 11:01 AM EDT</td><td></td><td> </td> 02/10/2021 11:01:55 AM EDT [facility] BLOOD COUNT COMPLETE AUTOMATED <td>CBC</td><td>STAT</t d><td>02/10/2021 9:44 AM EDT</td><td></td><td> </td> 02/10/2021 09:44:00 AM EDT [facility] BASIC METABOLIC PANEL CALCIUM TOTAL <td>BASIC METABOLI C PANEL</td><td>Timed</td><td>02/10/2021 9:44 AM EDT</td><td></td><td> </td> 02/10/2021 09:44:00 AM EDT [facility] GLUC BLD GLUC MNTR DEV CLEARED FDA SPEC HOME USE <td>P OCT GLUCOSE</td><td>Routine</td><td>02/10/2021 9:34 AM EDT</td><td></td><td> </td> 02/10/2021 09:34:00 AM EDT [facility] GLUC BLD GLUC MNTR DEV CLEARED FDA SPEC HOME USE <td>P OCT GLUCOSE</td><td>Routine</td><td>02/09/2021 10:16 PM EDT</td><td></td><td> </td> 02/09/2021 10:16:00 PM EDT [facility] GLUC BLD GLUC MNTR DEV CLEARED FDA SPEC HOME USE <td>P OCT GLUCOSE</td><td>Routine</td><td>02/09/2021 7:11 PM EDT</td><td></td><td> </td> 02/09/2021 07:11:00 PM EDT [facility] GLUC BLD GLUC MNTR DEV CLEARED FDA SPEC HOME USE <td>P OCT GLUCOSE</td><td>Routine</td><td>02/09/2021 3:38 PM EDT</td><td></td><td> </td> 02/09/2021 03:38:00 PM EDT [facility] GLUC BLD GLUC MNTR DEV CLEARED FDA SPEC HOME USE <td>P OCT GLUCOSE</td><td>Routine</td><td>02/09/2021 9:10 AM EDT</td><td></td><td> </td> 02/09/2021 09:10:00 AM EDT [facility] CMB <td>CMB</td><td>STAT</td><td >02/09/2021 7:24 AM EDT</td><td></td><td> </td> 02/09/2021 07:24:00 AM EDT [facility] BLOOD COUNT COMPLETE AUTOMATED <td>CBC</td><td>Timed</ td><td>02/09/2021 7:24 AM EDT</td><td></td><td> </td> 02/09/2021 07:24:00 AM EDT [facility] CREATINE KINASE MB FRACTION ONLY <td>CKMB</td><td>Rout ine</td><td>02/09/2021 7:24 AM EDT</td><td></td><td> </td> 02/09/2021 07:24:00 AM EDT [facility] BASIC METABOLIC PANEL CALCIUM TOTAL <td>BASIC METABOLI C PANEL</td><td>Timed</td><td>02/09/2021 7:24 AM EDT</td><td></td><td> </td> 02/09/2021 07:24:00 AM EDT [facility] ECG ROUTINE ECG W/LEAST 12 LDS TRCG ONLY W/O I&R <td>E CG 12- LEAD</td><td>Routine</td><td>02/09/2021 5:19 AM EDT</td><td></td><td></td> 02/09/2021 05:19:46 AM EDT [facility] BLOOD COUNT COMPLETE AUTOMATED <td>CBC</td><td>STAT</t d><td>02/08/2021 11:11 PM EDT</td><td></td><td> </td> 02/08/2021 11:11:00 PM EDT [facility] GLUC BLD GLUC MNTR DEV CLEARED FDA SPEC HOME USE <td>P OCT GLUCOSE</td><td>Routine</td><td>02/08/2021 9:03 PM EDT</td><td></td><td> </td> 02/08/2021 09:03:00 PM EDT [facility] GLUC BLD GLUC MNTR DEV CLEARED FDA SPEC HOME USE <td>P OCT GLUCOSE</td><td>Routine</td><td>02/08/2021 3:55 PM EDT</td><td></td><td> </td> 02/08/2021 03:55:00 PM EDT [facility] CARDIAC CATHETERIZATION <td>CARDIAC CATHETERIZATION</td><td>Routine</td><td>02/08/2021 2:25 PM EDT</td><td> Acute myocardial infarction</td><td> </td> 02/08/2021 02:25:25 PM EDT Acute myocardial infarction [facility] Acute myocardial infarction THROMBOPLASTIN TIME PARTIAL PLASMA/WHOLE BLOOD <td>APTT</td><td>STAT</td><td>02/08/2021 12:20 PM EDT</td><td></td><td> </td> 02/08/2021 12:20:00 PM EDT [facility] GLUC BLD GLUC MNTR DEV CLEARED FDA SPEC HOME USE <td>P OCT GLUCOSE</td><td>Routine</td><td>02/08/2021 11:19 AM EDT</td><td></td><td> </td> 02/08/2021 11:19:00 AM EDT [facility] GLUC BLD GLUC MNTR DEV CLEARED FDA SPEC HOME USE <td>P OCT GLUCOSE</td><td>Routine</td><td>02/08/2021 8:17 AM EDT</td><td></td><td> </td> 02/08/2021 08:17:00 AM EDT [facility] THROMBOPLASTIN TIME PARTIAL PLASMA/WHOLE BLOOD <td>APTT</td><td>STAT</td><td>02/08/2021 4:02 AM EDT</td><td></td><td> </td> 02/08/2021 04:02:00 AM EDT [facility] BLOOD COUNT COMPLETE AUTOMATED <td>CBC</td><td>Routine </td><td>02/08/2021 4:02 AM EDT</td><td></td><td> </td> 02/08/2021 04:02:00 AM EDT [facility] BASIC METABOLIC PANEL CALCIUM TOTAL <td>BASIC METABOLI C PANEL</td><td>Routine</td><td>02/08/2021 4:02 AM EDT</td><td></td><td> </td> 02/08/2021 04:02:00 AM EDT [facility] COVID/FLU AB/RSV PCR <td>COVID/FLU AB/RSV PCR</td ><td>STAT</td><td>02/07/2021 10:40 PM EDT</td><td></td><td> </td> 02/07/2021 10:40:00 PM EDT [facility] THROMBOPLASTIN TIME PARTIAL PLASMA/WHOLE BLOOD <td>APTT</td><td>Routine</td><td>02/07/2021 9:44 PM EDT</td><td></td><td> </td> 02/07/2021 09:44:00 PM EDT [facility] ECG ROUTINE ECG W/LEAST 12 LDS TRCG ONLY W/O I&R <td>E CG 12- LEAD</td><td>Routine</td><td>02/07/2021 8:37 PM EDT</td><td></td><td></td> 02/07/2021 08:37:43 PM EDT [facility] ECG ROUTINE ECG W/LEAST 12 LDS TRCG ONLY W/O I&R <td>E CG 12- LEAD</td><td>Routine</td><td>02/07/2021 3:29 PM EDT</td><td></td><td></td> 02/07/2021 03:29:10 PM EDT [facility] CMB <td>CMB</td><td>STAT</td><td >02/07/2021 3:26 PM EDT</td><td></td><td> </td> 02/07/2021 03:26:00 PM EDT [facility] NT PRO BNP <td>NT PRO BNP</td><td>Routi ne</td><td>02/07/2021 3:26 PM EDT</td><td></td><td> </td> 02/07/2021 03:26:00 PM EDT [facility] TROPONIN QUANTITATIVE <td>TROPONIN I</td><td>STAT< /td><td>02/07/2021 3:26 PM EDT</td><td></td><td> </td> 02/07/2021 03:26:00 PM EDT [facility] THROMBOPLASTIN TIME PARTIAL PLASMA/WHOLE BLOOD <td>APT T</td><td>Add- On</td><td>02/07/2021 3:26 PM EDT</td><td></td><td> </td> 02/07/2021 03:26:00 PM EDT [facility] BLOOD COUNT COMPLETE AUTOMATED <td>CBC</td><td>STAT</t d><td>02/07/2021 3:26 PM EDT</td><td></td><td> </td> 02/07/2021 03:26:00 PM EDT [facility] HEMOGLOBIN GLYCOSYLATED A1C <td>HEMOGLOBIN A1C</td><td >Add-On</td><td>02/07/2021 3:26 PM EDT</td><td></td><td> </td> 02/07/2021 03:26:00 PM EDT [facility] CREATINE KINASE MB FRACTION ONLY <td>CKMB</td><td>Add- On</td><td>02/07/2021 3:26 PM EDT</td><td></td><td> </td> 02/07/2021 03:26:00 PM EDT [facility] BASIC METABOLIC PANEL CALCIUM TOTAL <td>BASIC METABOLI C PANEL</td><td>STAT</td><td>02/07/2021 3:26 PM EDT</td><td></td><td> </td> 02/07/2021 03:26:00 PM EDT [facility] GLUC BLD GLUC MNTR DEV CLEARED FDA SPEC HOME USE <td>P OCT GLUCOSE</td><td>Routine</td><td>02/07/2021 3:14 PM EDT</td><td></td><td> </td> 02/07/2021 03:14:00 PM EDT [facility] OFFICE OUTPATIENT VISIT 25 MINUTES 02/05/2021 12:00:00 AM EDT [facility] ([facility]) OFFICE OUTPATIENT NEW 30 MINUTES 01/23/2021 12:00:00 A M EDT [facility] ([facility], ) POCT GLUCOSE, DOCKED <td>POCT GLUCOSE, DOCKED</td ><td>Routine</td><td>01/19/2021 1:08 PM EDT</td><td></td><td> </td> 01/19/2021 01:08:00 PM [facility] POCT GLUCOSE, DOCKED <td>POCT GLUCOSE, DOCKED</td ><td>Routine</td><td>01/19/2021 9:08 AM EDT</td><td></td><td> </td> 01/19/2021 09:08:00 AM [facility] BLOOD COUNT COMPLETE AUTO&AUTO DIFRNTL WBC COUNT <td>C BC AND DIFFERENTIAL</td><td>Routine</td><td>01/19/2021 5:30 AM EDT</td><td></td><td> </td> 01/19/2021 05:30:00 AM [facility] BASIC METABOLIC PANEL CALCIUM TOTAL <td>BASIC METABOLI C PANEL</td><td>Routine</td><td>01/19/2021 5:30 AM EDT</td><td></td><td> </td> 01/19/2021 05:30:00 AM [facility] GLUCOSE QUANTITATIVE BLOOD XCPT REAGENT STRIP <td>POCT GLUCOSE, DOCKED</td><td>Routine</td><td>01/18/2021 10:31 PM EDT</td><td></td><td> </td> 01/18/2021 10:31:00 PM [facility] GLUCOSE QUANTITATIVE BLOOD XCPT REAGENT STRIP <td>POCT GLUCOSE, DOCKED</td><td>Routine</td><td>01/18/2021 5:36 PM EDT</td><td></td><td> </td> 01/18/2021 05:36:00 PM [facility] GLUCOSE QUANTITATIVE BLOOD XCPT REAGENT STRIP <td>POCT GLUCOSE, DOCKED</td><td>Routine</td><td>01/18/2021 12:28 PM EDT</td><td></td><td> </td> 01/18/2021 12:28:00 PM [facility] GLUCOSE QUANTITATIVE BLOOD XCPT REAGENT STRIP <td>POCT GLUCOSE, DOCKED</td><td>Routine</td><td>01/18/2021 8:42 AM EDT</td><td></td><td> </td> 01/18/2021 08:42:00 AM [facility] BLOOD COUNT COMPLETE AUTO&AUTO DIFRNTL WBC COUNT <td>C BC AND DIFFERENTIAL</td><td>Routine</td><td>01/18/2021 3:34 AM EDT</td><td></td><td> </td> 01/18/2021 03:34:00 AM [facility] PARATHORMONE <td>PTH, INTACT</td><td>Rout ine</td><td>01/18/2021 3:34 AM EDT</td><td></td><td> </td> 01/18/2021 03:34:00 AM [facility] BASIC METABOLIC PANEL CALCIUM TOTAL <td>BASIC METABOLI C PANEL</td><td>Routine</td><td>01/18/2021 3:34 AM EDT</td><td></td><td> </td> 01/18/2021 03:34:00 AM [facility] GLUCOSE QUANTITATIVE BLOOD XCPT REAGENT STRIP <td>POCT GLUCOSE, DOCKED</td><td>Routine</td><td>01/17/2021 8:24 PM EDT</td><td></td><td> </td> 01/17/2021 08:24:00 PM [facility] BLOOD COUNT COMPLETE AUTOMATED <td>CBC</td><td>Routine </td><td>01/17/2021 7:43 PM EDT</td><td></td><td> </td> 01/17/2021 07:43:00 PM [facility] GLUCOSE QUANTITATIVE BLOOD XCPT REAGENT STRIP <td>POCT GLUCOSE, DOCKED</td><td>Routine</td><td>01/17/2021 5:30 PM EDT</td><td></td><td> </td> 01/17/2021 05:30:00 PM [facility] GLUCOSE QUANTITATIVE BLOOD XCPT REAGENT STRIP <td>POCT GLUCOSE, DOCKED</td><td>Routine</td><td>01/17/2021 12:16 PM EDT</td><td></td><td> </td> 01/17/2021 12:16:00 PM [facility] GLUCOSE QUANTITATIVE BLOOD XCPT REAGENT STRIP <td>POCT GLUCOSE, DOCKED</td><td>Routine</td><td>01/17/2021 8:44 AM EDT</td><td></td><td> </td> 01/17/2021 08:44:00 AM [facility] BLOOD COUNT COMPLETE AUTOMATED <td>CBC AND DIFFERENTIAL</td><td>Routine</td><td>01/17/2021 6:00 AM EDT</td><td></td><td> </td> 01/17/2021 06:00:00 AM [facility] TROPONIN QUANTITATIVE <td>TROPONIN T</td><td>Timed </td><td>01/17/2021 6:00 AM EDT</td><td></td><td> </td> 01/17/2021 06:00:00 AM [facility] BASIC METABOLIC PANEL CALCIUM TOTAL <td>BASIC METABOLI C PANEL</td><td>Routine</td><td>01/17/2021 6:00 AM EDT</td><td></td><td> </td> 01/17/2021 06:00:00 AM [facility] BLOOD COUNT COMPLETE AUTO&AUTO DIFRNTL WBC COUNT <td>C BC AND DIFFERENTIAL</td><td>Routine</td><td>01/17/2021 2:07 AM EDT</td><td></td><td> </td> 01/17/2021 02:07:00 AM [facility] TROPONIN QUANTITATIVE <td>TROPONIN T</td><td>Timed </td><td>01/17/2021 2:07 AM EDT</td><td></td><td> </td> 01/17/2021 02:07:00 AM [facility] GLUCOSE QUANTITATIVE BLOOD XCPT REAGENT STRIP <td>POCT GLUCOSE, DOCKED</td><td>Routine</td><td>01/16/2021 8:19 PM EDT</td><td></td><td> </td> 01/16/2021 08:19:00 PM [facility] TROPONIN QUANTITATIVE <td>TROPONIN T</td><td>Timed </td><td>01/16/2021 7:52 PM EDT</td><td></td><td> </td> 01/16/2021 07:52:00 PM [facility] GLUCOSE QUANTITATIVE BLOOD XCPT REAGENT STRIP <td>POCT GLUCOSE, DOCKED</td><td>Routine</td><td>01/16/2021 5:32 PM EDT</td><td></td><td> </td> 01/16/2021 05:32:00 PM [facility] SEDIMENTATION RATE RBC AUTOMATED <td>SEDIMENTATION RAT E, AUTOMATED</td><td>Routine</td><td>01/16/2021 12:56 PM EDT</td><td></td><td> </td> 01/16/2021 12:56:00 PM [facility] BLOOD COUNT COMPLETE AUTO&AUTO DIFRNTL WBC COUNT <td>C BC AND DIFFERENTIAL</td><td>Routine</td><td>01/16/2021 12:56 PM EDT</td><td></td><td> </td> 01/16/2021 12:56:00 PM [facility] C-REACTIVE PROTEIN <td>INFLAMMATORY C-REACTIVE PROTEIN (CRP)</td><td>Routine</td><td>01/16/2021 12:56 PM EDT</td><td></td><td> </td> 01/16/2021 12:56:00 PM [facility] TROPONIN QUANTITATIVE <td>TROPONIN T</td><td>Routi ne</td><td>01/16/2021 12:56 PM EDT</td><td></td><td> </td> 01/16/2021 12:56:00 PM [facility] LACTATE <td>LACTIC ACID LEVEL, PLASM A</td><td>STAT</td><td>01/16/2021 12:56 PM EDT</td><td></td><td> </td> 01/16/2021 12:56:00 PM [facility] COMPREHENSIVE METABOLIC PANEL <td>COMPREHENSIVE METABO LIC PANEL</td><td>Routine</td><td>01/16/2021 12:56 PM EDT</td><td></td><td> </td> 01/16/2021 12:56:00 PM [facility] GLUCOSE QUANTITATIVE BLOOD XCPT REAGENT STRIP <td>POCT GLUCOSE, DOCKED</td><td>Routine</td><td>01/16/2021 12:10 PM EDT</td><td></td><td> </td> 01/16/2021 12:10:[address] [facility] [address] HEAD/BRAIN W/O CONTRAST MATERIAL <td>CT HEAD WITHOU T CONTRAST [id number]</td><td>STAT</td><td>01/16/2021 10:23 AM EDT</td><td></td><td> </td> 01/16/2021 10:23:15 AM [facility] GLUCOSE QUANTITATIVE BLOOD XCPT REAGENT STRIP <td>POCT GLUCOSE, DOCKED</td><td>Routine</td><td>01/16/2021 8:27 AM EDT</td><td></td><td> </td> 01/16/2021 08:27:00 AM [facility] EKG 12-LEAD - CMAXX REPORT <td>EKG 12-LEAD - CMAXX REPORT</td><td></td><td>01/16/2021 6:47 AM EDT</td><td></td><td></td> 01/16/2021 06:47:03 AM [facility] EKG 12-LEAD - CMAXX REPORT <td>EKG 12-LEAD - CMAXX REPORT</td><td></td><td>01/16/2021 6:47 AM EDT</td><td></td><td></td> 01/16/2021 06:47:03 AM [facility] EKG 12-LEAD <td>EKG 12-LEAD</td><td>Rout ine</td><td>01/16/2021 6:47 AM EDT</td><td></td><td> </td> 01/16/2021 06:47:03 AM [facility] BLOOD COUNT RETICULOCYTE AUTOMATED <td>RETICULOCYTES</td><td>Routine</td><td>01/16/2021 6:18 AM EDT</td><td></td><td> </td> 01/16/2021 06:18:00 AM [facility] BLOOD COUNT COMPLETE AUTO&AUTO DIFRNTL WBC COUNT <td>C BC AND DIFFERENTIAL</td><td>Routine</td><td>01/16/2021 6:18 AM EDT</td><td></td><td> </td> 01/16/2021 06:18:00 AM [facility] TROPONIN QUANTITATIVE <td>TROPONIN T</td><td>Routi ne</td><td>01/16/2021 6:18 AM EDT</td><td></td><td> </td> 01/16/2021 06:18:00 AM [facility] NEUTROPHIL CYTO AB COMMENT <td>NEUTROPHIL CYTO AB COMMENT</td><td>Routine</td><td>01/16/2021 12:49 AM EDT</td><td></td><td> </td> 01/16/2021 12:49:00 AM [facility] IAAD EIA HIV-1 AG W/HIV-1&HIV-2 ANTBDY SINGLE <td>HIV AG AB COMBO SCREEN</td><td>Routine</td><td>01/16/2021 12:49 AM EDT</td><td></td><td> </td> 01/16/2021 12:49:00 AM [facility] FLUORESCENT NONNFCT AGT ANTB TITER EA ANTIBODY <td>SARAN TROPHIL CYTOPLASMIC ANTIBODY</td><td>Routine</td><td>01/16/2021 12:49 AM EDT</td><td></td><td> </td> 01/16/2021 12:49:00 AM [facility] HEPATITIS B CORE ANTIBODY HBCAB IGM ANTIBODY <td>HEPAT ITIS B CORE ANTIBODY, IGM</td><td>Routine</td><td>01/16/2021 12:49 AM EDT</td><td></td><td> </td> 01/16/2021 12:49:00 AM [facility] HEPATITIS B CORE ANTIBODY HBCAB TOTAL <td>HEPATITIS B CORE ANTIBODY, TOTAL</td><td>Routine</td><td>01/16/2021 12:49 AM EDT</td><td></td><td> </td> 01/16/2021 12:49:00 AM [facility] IADNA HEPATITIS C QUANTIFICATION <td>HEPATITIS C RNA, QUANTITATIVE, PCR</td><td>Routine</td><td>01/16/2021 12:49 AM EDT</td><td></td><td> </td> 01/16/2021 12:49:00 AM [facility] HEPATITIS B SURF ANTIBODY HBSAB <td>HEPATITIS B SURFAC E ANTIBODY</td><td>Routine</td><td>01/16/2021 12:49 AM EDT</td><td></td><td> </td> 01/16/2021 12:49:00 AM [facility] IAAD EIA HEPATITIS B SURFACE ANTIGEN <td>HEPATITIS B S URFACE ANTIGEN</td><td>Routine</td><td>01/16/2021 12:49 AM EDT</td><td></td><td> </td> 01/16/2021 12:49:00 AM [facility] TROPONIN QUANTITATIVE <td>TROPONIN T</td><td>Routi ne</td><td>01/16/2021 12:49 AM EDT</td><td></td><td> </td> 01/16/2021 12:49:00 AM [facility] PROTEIN XCPT REFRACTOMETRY SERUM PLASMA/WHL BLD <td>WV OTEIN ELECTROPHORESIS WITH SERUM TOTAL PROTEIN</td><td>Routine</td><td>01/16/2021 12:49 AM EDT</td><td></td><td> </td> 01/16/2021 12:49:00 AM [facility] FOLIC ACID SERUM <td>FOLATE</td><td>Routine</ td><td>01/16/2021 12:49 AM EDT</td><td></td><td> </td> 01/16/2021 12:49:00 AM [facility] UREA NITROGEN URINE <td>UREA NITROGEN, URINE</td ><td>Routine</td><td>01/16/2021 12:38 AM EDT</td><td></td><td> </td> 01/16/2021 12:38:00 AM [facility] SODIUM URINE <td>SODIUM, URINE, RANDOM</t d><td>Routine</td><td>01/16/2021 12:38 AM EDT</td><td></td><td> </td> 01/16/2021 12:38:00 AM [facility] PROTEIN TOTAL XCPT REFRACTOMETRY URINE <td>PROTEIN ASAD CTROPHORESIS, URINE</td><td>Routine</td><td>01/16/2021 12:38 AM EDT</td><td></td><td> </td> 01/16/2021 12:38:00 AM [facility] OSMOLALITY URINE <td>OSMOLALITY, URINE</td><t d>Routine</td><td>01/16/2021 12:38 AM EDT</td><td></td><td> </td> 01/16/2021 12:38:00 AM [facility] CREATININE OTHER SOURCE <td>CREATININE, URINE, RANDOM</td><td>Routine</td><td>01/16/2021 12:38 AM EDT</td><td></td><td> </td> 01/16/2021 12:38:00 AM [facility] CHLORIDE URINE <td>CHLORIDE, URINE, RANDOM< /td><td>Routine</td><td>01/16/2021 12:38 AM EDT</td><td></td><td> </td> 01/16/2021 12:38:00 AM [facility] GLUCOSE QUANTITATIVE BLOOD XCPT REAGENT STRIP <td>POCT GLUCOSE, DOCKED</td><td>Routine</td><td>01/15/2021 9:29 PM EDT</td><td></td><td> </td> 01/15/2021 09:29:00 PM [facility] US RETROPERITONEAL REAL TIME W/IMAGE COMPLETE <td>US R ENAL OR AORTA COMPLETE [id number]</td><td>Routine</td><td>01/15/2021 9:25 PM EDT</td><td></td><td> </td> 01/15/2021 09:25:06 PM [facility] IRON <td>TOTAL FE BINDING CAPACIT Y</td><td>Routine</td><td>01/15/2021 6:13 PM EDT</td><td></td><td> </td> 01/15/2021 06:13:00 PM [facility] COMPLEMENT ANTIGEN EACH COMPONENT <td>C3 COMPLEMENT</td><td>Routine</td><td>01/15/2021 6:13 PM EDT</td><td></td><td> </td> 01/15/2021 06:13:00 PM [facility] COMPLEMENT ANTIGEN EACH COMPONENT <td>C4 COMPLEMENT</td><td>Routine</td><td>01/15/2021 6:13 PM EDT</td><td></td><td> </td> 01/15/2021 06:13:00 PM [facility] TROPONIN QUANTITATIVE <td>TROPONIN T</td><td>Timed </td><td>01/15/2021 6:13 PM EDT</td><td></td><td> </td> 01/15/2021 06:13:00 PM [facility] FERRITIN <td>FERRITIN LEVEL</td><td>R outine</td><td>01/15/2021 6:13 PM EDT</td><td></td><td> </td> 01/15/2021 06:13:00 PM [facility] CYANOCOBALAMIN VITAMIN B-12 <td>VITAMIN B12</td><td>Ro utine</td><td>01/15/2021 6:13 PM EDT</td><td></td><td> </td> 01/15/2021 06:13:00 PM [facility] GLUCOSE QUANTITATIVE BLOOD XCPT REAGENT STRIP <td>POCT GLUCOSE, DOCKED</td><td>Routine</td><td>01/15/2021 5:18 PM EDT</td><td></td><td> </td> 01/15/2021 05:18:00 PM [facility] ECHO TTHRC R-T 2D W/WOM-MODE COMPL SPEC&COLR DOP <td>E CHOCARDIOGRAM 2D COMPLETE</td><td>Routine</td><td>01/15/2021 1:48 PM EDT</td><td></td><td> </td> 01/15/2021 01:48:48 PM [facility] GLUCOSE QUANTITATIVE BLOOD XCPT REAGENT STRIP <td>POCT GLUCOSE, DOCKED</td><td>Routine</td><td>01/15/2021 12:40 PM EDT</td><td></td><td> </td> 01/15/2021 12:40:00 PM [facility] TROPONIN QUANTITATIVE <td>TROPONIN T</td><td>Timed </td><td>01/15/2021 11:44 AM EDT</td><td></td><td> </td> 01/15/2021 11:44:00 AM [facility] GLUCOSE QUANTITATIVE BLOOD XCPT REAGENT STRIP <td>POCT GLUCOSE, DOCKED</td><td>Routine</td><td>01/15/2021 8:03 AM EDT</td><td></td><td> </td> 01/15/2021 08:03:00 AM [facility] EKG 12-LEAD - CMAXX REPORT <td>EKG 12-LEAD - CMAXX REPORT</td><td></td><td>01/15/2021 5:13 AM EDT</td><td></td><td></td> 01/15/2021 05:13:46 AM [facility] EKG 12-LEAD - CMAXX REPORT <td>EKG 12-LEAD - CMAXX REPORT</td><td></td><td>01/15/2021 5:13 AM EDT</td><td></td><td></td> 01/15/2021 05:13:46 AM [facility] EKG 12-LEAD <td>EKG 12-LEAD</td><td>Rout ine</td><td>01/15/2021 5:13 AM EDT</td><td></td><td> </td> 01/15/2021 05:13:46 AM [facility] BLOOD COUNT COMPLETE AUTO&AUTO DIFRNTL WBC COUNT <td>C BC AND DIFFERENTIAL</td><td>Routine</td><td>01/15/2021 3:58 AM EDT</td><td></td><td> </td> 01/15/2021 03:58:00 AM [facility] TROPONIN QUANTITATIVE <td>TROPONIN T</td><td>Timed </td><td>01/15/2021 3:58 AM EDT</td><td></td><td> </td> 01/15/2021 03:58:00 AM [facility] PHOSPHORUS INORGANIC <td>PHOSPHORUS LEVEL</td><td >Routine</td><td>01/15/2021 3:58 AM EDT</td><td></td><td> </td> 01/15/2021 03:58:00 AM [facility] MAGNESIUM <td>MAGNESIUM LEVEL</td><td> Routine</td><td>01/15/2021 3:58 AM EDT</td><td></td><td> </td> 01/15/2021 03:58:00 AM [facility] BASIC METABOLIC PANEL CALCIUM TOTAL <td>BASIC METABOLI C PANEL</td><td>Routine</td><td>01/15/2021 3:58 AM EDT</td><td></td><td> </td> 01/15/2021 03:58:00 AM [facility] EKG 12-LEAD - CMAXX REPORT <td>EKG 12-LEAD - CMAXX REPORT</td><td></td><td>01/14/2021 11:30 PM EDT</td><td></td><td></td> 01/14/2021 11:30:59 PM [facility] EKG 12-LEAD - CMAXX REPORT <td>EKG 12-LEAD - CMAXX REPORT</td><td></td><td>01/14/2021 11:30 PM EDT</td><td></td><td></td> 01/14/2021 11:30:59 PM [facility] EKG 12-LEAD <td>EKG 12-LEAD</td><td>Rout ine</td><td>01/14/2021 11:30 PM EDT</td><td></td><td> </td> 01/14/2021 11:30:59 PM [facility] GLUCOSE QUANTITATIVE BLOOD XCPT REAGENT STRIP <td>POCT GLUCOSE, DOCKED</td><td>Routine</td><td>01/14/2021 9:55 PM EDT</td><td></td><td> </td> 01/14/2021 09:55:00 PM [facility] CULTURE BACTERIAL BLOOD AEROBIC W/ID ISOLATES <td>BLOO D CULTURE</td><td>Routine</td><td>01/14/2021 9:48 PM EDT</td><td></td><td> </td> 01/14/2021 09:48:00 PM [facility] TROPONIN QUANTITATIVE <td>TROPONIN T</td><td>Timed </td><td>01/14/2021 9:48 PM EDT</td><td></td><td> </td> 01/14/2021 09:48:00 PM [facility] URNLS DIP STICK/TABLET REAGENT AUTO MICROSCOPY <td>URI NALYSIS WITH REFLEX URINE CULTURE</td><td>Routine</td><td>01/14/2021 9:27 PM EDT</td><td></td><td> </td> 01/14/2021 09:27:00 PM [facility] CULTURE BACTERIAL BLOOD AEROBIC W/ID ISOLATES <td>BLOO D CULTURE</td><td>Routine</td><td>01/14/2021 7:47 PM EDT</td><td></td><td> </td> 01/14/2021 07:47:00 PM [facility] GLUCOSE QUANTITATIVE BLOOD XCPT REAGENT STRIP <td>POCT GLUCOSE, DOCKED</td><td>Routine</td><td>01/14/2021 6:22 PM EDT</td><td></td><td> </td> 01/14/2021 06:22:00 PM [facility] HEPATITIS C ANTIBODY <td>HEPATITIS C ANTIBODY</td ><td>Routine</td><td>01/14/2021 5:55 PM EDT</td><td></td><td> </td> 01/14/2021 05:55:00 PM [facility] ANTINUCLEAR ANTIBODIES AMBIKA <td>AMBIKA</td><td>Routine</td ><td>01/14/2021 5:55 PM EDT</td><td></td><td> </td> 01/14/2021 05:55:00 PM [facility] TROPONIN QUANTITATIVE <td>TROPONIN T</td><td>Timed </td><td>01/14/2021 5:55 PM EDT</td><td></td><td> </td> 01/14/2021 05:55:00 PM [facility] PROTHROMBIN TIME <td>PROTIME INR</td><td>Rout ine</td><td>01/14/2021 1:28 PM EDT</td><td></td><td> </td> 01/14/2021 01:28:00 PM [facility] BLOOD TYPING ABO <td>TYPE AND SCREEN</td><td> STAT</td><td>01/14/2021 1:23 PM EDT</td><td></td><td> </td> 01/14/2021 01:23:00 PM [facility] XR CHEST FRONTAL ONLY [id number] <td>XR CHEST FRONTAL ONLY [id number]</td><td>STAT</td><td>01/14/2021 1:07 PM EDT</td><td></td><td> </td> 01/14/2021 01:07:00 PM [facility] TROPONIN QUANTITATIVE <td>POCT ISTAT TROPONIN</td> <td>Routine</td><td>01/14/2021 12:36 PM EDT</td><td></td><td> </td> 01/14/2021 12:36:00 PM [facility] BLOOD GASES ANY COMBINATION PH PCO2 PO2 CO2 HCO3 <td>P OCT ISTAT VBG/LAC</td><td>Routine</td><td>01/14/2021 12:35 PM EDT</td><td></td><td> </td> 01/14/2021 12:35:00 PM [facility] CONFIRMATORY TYPE <td>CONFIRMATORY TYPE</td><t d>Routine</td><td>01/14/2021 12:33 PM EDT</td><td></td><td> </td> 01/14/2021 12:33:00 PM [facility] PROCALCITONIN (PCT) <td>PROCALCITONIN</td><td>Ro utine</td><td>01/14/2021 12:33 PM EDT</td><td></td><td> </td> 01/14/2021 12:33:00 PM [facility] NATRIURETIC PEPTIDE <td>PROBNP</td><td>Routine</ td><td>01/14/2021 12:33 PM EDT</td><td></td><td> </td> 01/14/2021 12:33:00 PM [facility] BLOOD COUNT COMPLETE AUTO&AUTO DIFRNTL WBC COUNT <td>C BC AND DIFFERENTIAL</td><td>Routine</td><td>01/14/2021 12:33 PM EDT</td><td></td><td> </td> 01/14/2021 12:33:00 PM [facility] TROPONIN QUANTITATIVE <td>TROPONIN T</td><td>STAT< /td><td>01/14/2021 12:33 PM EDT</td><td></td><td> </td> 01/14/2021 12:33:00 PM [facility] MAGNESIUM <td>MAGNESIUM LEVEL</td><td> STAT</td><td>01/14/2021 12:33 PM EDT</td><td></td><td> </td> 01/14/2021 12:33:00 PM [facility] LIPASE <td>LIPASE LEVEL</td><td>STA T</td><td>01/14/2021 12:33 PM EDT</td><td></td><td> </td> 01/14/2021 12:33:00 PM [facility] HEMOGLOBIN GLYCOSYLATED A1C <td>HEMOGLOBIN A1C</td><td>Routine</td><td>01/14/2021 12:33 PM EDT</td><td></td><td> </td> 01/14/2021 12:33:00 PM [facility] COMPREHENSIVE METABOLIC PANEL <td>COMPREHENSIVE METABO LIC PANEL</td><td>STAT</td><td>01/14/2021 12:33 PM EDT</td><td></td><td> </td> 01/14/2021 12:33:00 PM [facility] EKG 12 LEAD (UNSOLICITED COMPUTER ORDER) <td>EKG 12 LE AD (UNSOLICITED COMPUTER ORDER)</td><td>Routine</td><td>01/14/2021 12:09 PM EDT</td><td></td><td></td> 01/14/2021 12:09:21 PM [facility] EKG 12-LEAD - CMAXX REPORT <td>EKG 12-LEAD - CMAXX REPORT</td><td></td><td>01/14/2021 12:09 PM EDT</td><td></td><td></td> 01/14/2021 12:09:21 PM [facility] EKG 12-LEAD - CMAXX REPORT <td>EKG 12-LEAD - CMAXX REPORT</td><td></td><td>01/14/2021 12:09 PM EDT</td><td></td><td></td> 01/14/2021 12:09:21 PM [facility] EKG 12-LEAD <td>EKG 12-LEAD</td><td>STAT </td><td>01/14/2021 12:09 PM EDT</td><td></td><td> </td> 01/14/2021 12:09:21 PM [facility] EKG 12-LEAD - CMAXX REPORT <td>EKG 12-LEAD - CMAXX REPORT</td><td></td><td>01/14/2021 12:09 PM EDT</td><td></td><td></td> 01/14/2021 12:09:00 PM [facility] US SOFT TISSUE HEAD & NECK REAL TIME IMGE [facility] US EXAM OF HEAD AND NECK 01/10/2021 12:00:00 AM [facility] PARING/CUTTING BENIGN HYPERKERATOTIC LESION 2-4 2020 12:00:00 AM EDT [facility] DEBRIDEMENT NAIL ANY METHOD 6/> 01/02/2021 12:00:00 AM EDT [facility] ([facility] Av Fistula Artery-Vein 12/15/2020 12:00:00 AM EDT [facility] ([facility], ) ECG ROUTINE ECG W/LEAST 12 LDS W/I&R 12/04/2020 12:00: 00 AM EDT [facility] ([facility]) ECHO TTHRC R-T 2D W/WOM-MODE COMPL SPEC&COLR DOP 12/04 12:00:00 AM EDT [facility] ([facility]) OFFICE OUTPATIENT VISIT 25 MINUTES 12/04/2020 12:00:00 AM EDT [facility] ([facility]) OFFICE OUTPATIENT VISIT 15 MINUTES 11/09/2020 12:00:00 AM EST [facility] ([facility], ) PARING/CUTTING BENIGN HYPERKERATOTIC LESION 1 10/27/19 12:00:00 AM EST [facility] DEBRIDEMENT NAIL ANY METHOD 6/> 10/27/2020 12:00:00 AM EST [facility] ([facility] ECG ROUTINE ECG W/LEAST 12 LDS W/I&R 10/05/2020 12:00: 00 AM EST [facility] ([facility] MD) COLLECTION VENOUS BLOOD VENIPUNCTURE ROUTINE VENIPUNCTURE 12:00:00 AM [facility] HEMOGLOBIN GLYCOSYLATED A1C GLYCOSYLATED HEMOGLOBIN TEST 12:00:00 AM [facility] ALBUMIN URINE MICROALBUMIN QUANTIATIVE UR ALBUMIN QUANTITATI VE 09/20/2020 12:00:00 AM [facility] CREATININE OTHER SOURCE ASSAY OF URINE CREATININE 09/20/2020 12:00: 00 AM [facility] BASIC METABOLIC PANEL CALCIUM TOTAL METABOLIC PANEL TOTAL CA 09/20/2020 12:00:00 AM [facility] Amputation Toe MP JT 09/10/2020 12:00:00 AM EST [facility] ([facility] ECG ROUTINE ECG W/LEAST 12 LDS W/I&R 08/03/2020 12:00: 00 AM EST [facility] ([facility]) Amputation Toe MP JT 07/21/2020 12:00:00 AM EST [facility] ([facility] Aortography Abdominal & Bilat Iliofemoral LWR Extremity Cath 06/30/2020 12:00:00 AM EDT [facility] ([facility], ) DEBRIDEMENT SUBCUTANEOUS TISSUE 20 SQ CM/< 06/30/2020 12:00:00 AM EDT [facility] ([facility] DEBRIDEMENT SUBCUTANEOUS TISSUE 20 SQ CM/< 06/23/2020 12:00:00 AM EDT [facility] SIMPLE REPAIR SCALP/NECK/AX/GENIT/TRUNK 2.5CM/< RPR S/N/AX/G EN/TRNK 2.5CM/< 05/30/2020 12:00:00 AM [facility] EMERGENCY DEPARTMENT VISIT LOW/MODER SEVERITY EMERGENCY DEPT VISIT 05/30/2020 12:00:00 AM [facility] Pare Hyperkeratotic Lesion, 2-4 05/22/2020 12:00:00 AM EDT [facility] Trim Nondystrophic Nails 05/22/2020 12:00:00 AM EDT [facility] ([facility]) Debridement Nails Any Method 1-5 05/22/2020 12:00:00 A M EDT [facility] ([facility]) Results ID Date Data Source [id number] 03/21/2021 12:20:00 PM [facility] Name Value Range Interpretation Code Description Data Tyra rce(s) Supporting Document(s) Sodium 142 mmol/L 136-145 Normal (applies to non-numeric resul ts) [facility] Potassium 3.5-5.1 Normal (applies to non-numeric resul ts) [facility] Chloride 106 mmol/L 98-107 Normal (applies to non-numeric resul ts) [facility] Carbon Dioxide CO2 21-32 Normal (applies to non-numer ic results) [facility] Anion Gap 5.0-16.0 Normal (applies to non-numeric resul ts) [facility] BUN 69 mg/dL 7-[address] [facility] [address] STREETER read back critical information 03/21/21 1219 LAB.AD[facility]ANNA Creatinine,Serum 0.7-1.2 Above high normal [facility] GFR 24 mL/min >60 Below low normal [facility] spital Glucose Level 188 mg/dL 60-99 Above high normal [facility] Reference range is only applicable when patient is fasting Note the following drug interference: Sulfasalazine Sulfapyridine Can see falsely depressed Can see falsely elevated result with up to 17% results with up to 11% decrease in measurement increase in measurement Recommend patients be collected for this test prior to administration of either drug. Calcium 8.5-10.1 Normal (applies to non-numeric resul ts) [facility] ID Date Data Source [id number] 03/21/2021 11:08:00 AM EDT [facility] Name Value Range Interpretation Code Description Data Tyra rce(s) Supporting Document(s) Hemoglobin A1c Above high normal [facility] Reference Range Normal: < 5.7% Pr ediabetes: 5.7-6.4% Diabetes: > 6.5% Estimated Avg Glucose 183 mg/dL 126-240 Normal (applies to non-numeric results) [facility] ID Date Data Source [id number] 03/21/2021 09:01:00 AM EDT [facility] Name Value Range Interpretation Code Description Data Tyra rce(s) Supporting Document(s) White Blood Count 3.5-10.5 Normal (applies to non-numeri c results) [facility] Red Blood Count 3.90-5.00 Below low normal [facility] Hemoglobin 12.0-15.5 Below low normal [facility] ospital Hematocrit 34.9-44.5 Below low normal [facility]spital Mean Corpuscular Volume 81.2-95.1 Normal (applies to non- numeric results) [facility] Mean Corpuscular Hgb 25.6-32.2 Normal (applies to non-num [place] results) [facility] Mean Corpuscular Hgb Conc 32.0-36.0 Normal (applies to no n-numeric results) [facility] Red Cell Distribution Width 11.9-15.5 Normal (appli es to non-numeric results) [facility] Platelet Count 172 x10 3/uL 150-450 Normal (applies to non-numeric results) [facility] Mean Platelet Volume 9.4-12.4 Normal (applies to non-num [place] results) [facility] Neutrophils% (Auto) 31.0-71.0 Normal (applies to non-nume yun results) [facility] Lymphocytes% (Auto) 20.0-55.0 Normal (applies to non-nume yun results) [facility] Monocytes% (Auto) 4.0-12.0 Normal (applies to non-numeri c results) [facility] Eosinophils% (Auto) 1.0-8.0 Normal (applies to non-nume yun results) [facility] Basophils% (Auto) 0.0-2.0 Normal (applies to non-numeri c results) [facility] Immature Granulocytes% (Auto) 0.0-2.0 Normal (juanita lies to non-numeric results) [facility] Neutrophils# (Auto) 1.50-6.20 Normal (applies to non-nume yun results) [facility] Lymphocytes# (Auto) 1.20-4.00 Normal (applies to non-nume yun results) [facility] Monocytes# (Auto) 0.00-0.90 Normal (applies to non-numeri c results) [facility] Eosinophils# (Auto) 0.00-0.50 Normal (applies to non-nume yun results) [facility] Basophils# (Auto) 0.00-0.20 Normal (applies to non-numeri c results) [facility] Immature Granulocytes# (Auto) 0.00-7.00 No rmal (applies to non-numeric results) [facility] ID Date Data Source [id number] 02/14/2021 02:42:00 PM EDT [facility] Name Value Range Interpretation Code Description Data Tyra rce(s) Supporting Document(s) Microscopic observation [Identifier] in Unspecified specimen by Non- gynecological cytology method Laboratory test result [facility] ([facility]) SPECIMEN: FNA Left thyroid Specimen received in Cytolyt (clear) SPECIMEN ADEQUACY: Satisfactory for evaluation CATEGORIZATION: Benign DESCRIPTIONS: Groups of follicular cells exhibitng hurthle cell changes noted. The background consists of scattered lymphocytes and rare macrophages. COMMENTS: 02/15/2021 - 909 Signed MARIE RIOS(ASCP) 02/15/2021 0911 (Prelim) Signed DORIAN TAI MD 02/15/2021 1053 ID Date Data Source [id number] 02/14/2021 02:41:00 PM EDT [facility] Name Value Range Interpretation Code Description Data Tyra rce(s) Supporting Document(s) Microscopic observation [Identifier] in Unspecified specimen by Non- gynecological cytology method Laboratory test result [facility] ([facility], ) SPECIMEN: FNA Right thyroid Specimen received in Cytolyt (clear) SPECIMEN ADEQUACY: Satisfactory for evaluation CATEGORIZATION: Benign DESCRIPTIONS: Few scattered groups of follicular cells noted in a background of scattered lymphocytes and debris. COMMENTS: 02/15/2021 - 918 Signed MARIE RIOS(ASCP) 02/15/2021 09 (Prelim) Signed DORIAN TAI MD 02/15/2021 1053 ID Date Data Source [id number] 02/13/2021 12:07:25 PM EDT [facility] [place] NT INFORMATIONPatient MRN Name Date of Age Gend*PT [id number] Oxana Clancy 1950 70 years F IPPT Location Admission Date/Time Visit ID Attending [id number] 02/07/21 1503 --- --- EPI ID CSN Admitting Provider [id number] ---Attestation signed by Jo Molina MD at 02/13/2021 12:07 PMSignature: LEA Bensonate: February 13, 2021Time: 12:07 PM --Cardiology Discharge SummaryPatient Name: Oxana Clancy of : 1950 Age 70 yearsPrimary Physician: ANDRE STREETER DO PCP Krnolezwv Date: 02/07/2021 Discharge Date: 02/11/2021[facility] Diagnoses:Principal Problem: Non-ST elevation (NSTEMI) myocardial infarction Acute myocardial infarction CAD HTN HLD DMDischarge Medications:Your medicat ion listSTART taking these medications Instructions Last Dose Given Morning Afternoon Evening Bedtime As Needednitroglycerin 0.4 MG SL tabletCommonly known as: NITROSTAT Place 1 tablet (0.4 mg total) under the tongue every 5 (five) minutes as neededfor chest painCHANGE how you take these medications Instructions Last Dose Given Morning Afternoon Evening Bedtime As NeededamLODIPine 5 MG tabletCommonly known as: NORVASCStart taking on: February 12, 2021What changed: medication strength how much to take when to take this Take 1 tablet (5 mg total) by mouth dailycarvedilol 12.5 MG tabletCommonly known as: COREGWhat changed: medication strength how much to take Take 1 tablet (12.5 mg total) by mouth 2 (two) times a daytorsemide 100 MG tabletCommonly known as: DEMADEXWhat changed: how much to take when to take this Take 0.5 tablets (50 mg total) by mouth dailyCONTINUE taking these medications Instructions Last Dose Given Morning Afternoon Evening Bedtime As Neededacetaminophen 500 MG tabletCommonly known as: TYLENOL Take 1,000 mg by mouth every 6 (six) hours as needed for painammonium lactate 12 % creamCommonly known as: AMLACTIN Apply 1 application topically as needed for dry skinaspirin 81 MG EC tabletNotes to patient: Take for 4 weeks than stop Take 1 tablet (81 mg total) by mouth dailyatorvastatin 40 MG tabletCommonly known as: LIPITOR Take 40 mg by mouth nightlycalcitriol 0.25 MCG capsuleCommonly known as: ROCALTROL Take 0.25 mcg by mouth nightlyCholecalciferol 125 MCG (5000 UT) capsuleCommonly known as: VITAMIN D3 Take 5,000 Units by mouth dailyclopidogrel 75 MG tabletCommonly known as: PLAVIX Take 1 tablet (75 mg total) by mouth nightlycyclobenzaprine 10 MG tabletCommonly known as: FLEXERIL Take 10 mg by mouth 3 (three) times a day as needed for muscle spasmsDaily Kristine per tablet Take 1 tablet by mouth dailyferrous sulfate 325 (65 FE) MG tablet Take 325 mg by mouth 2 (two) times a dayhydrOXYzine 10 MG tabletCommonly known as: ATARAX Take 10 mg by mouth 3 (three) times a day as needed for anxietyinsulin glargine 100 UNIT/ML injectionCommonly known as: LANTUS Inject 44 Units under the skin nightlyinsulin lispro 100 UNIT/ML injectionCommonly known as: HumaLOG Inject under the skin With meals sliding scaleisosorbide dinitrate 20 MG tabletCommonly known as: ISORDIL Take 20 mg by mouth 3 (three) times a dayomeprazole 40 MG capsuleCommonly known as: PriLOSEC Take 40 mg by mouth dailypotassium chloride SA 10 MEQ tabletCommonly known as: K-DUR,KLOR-CON Take 10 mEq by mouth dailyrOPINIRole 1 MG tabletCommonly known as: REQUIP Take 2 mg by mouth 2 (two) times a daysertraline 50 MG tabletCommonly known as: ZOLOFT Take 100 mg by mouth nightlytraMADol 50 MG tabletCommonly known as: ULTRAM Take 50 mg by mouth daily as needed for painTrelegy Ellipta 100-62.5-25 MCGGeneric drug: Hepyhhwdgbc-Ivjlqutfj-Cykgkz Inhale 1 puff dailyXarelto 15 MG TabsGeneric drug: rivaroxabanNotes to patient: Resume Friday02/14/21 Take 15 mg by mouth dailySTOP taking these medicationsmetolazone 2.5 MG tabletCommonly known as: ZAROXOLYNWhere to Get Your MedicationsThese medications were sent to [facility] [address] [place] [address] [id number], [facility] [id number] amLODIPine 5 MG tablet aspirin 81 MG EC tablet carvedilol 12.5 MG tablet clopidogrel 75 MG tablet nitroglycerin 0.4 MG SL tabletFollow Up Instructions:Dr. Minor and Dr. Quintanilla [facility] Course:This is a 70-year-old female with a PMH including PAD s/p angioplasty, aorticstenosis s/p bioprosthetic #23 Magna AVR, COPD O2 dependent, PATRICK,hyperlipidemia, hypertension, DM 2, PAF,CKD stage III and CAD status post CABGx2 (ABAD to the LAD and vein graft of the ABAD to the PDA) and ALEX to the CX.She presented to [facility]. She ruled in for a NSTEMI. Troponinelevated to 16.7.Initial EKG 02/06 revealed rapid atrial fibrillation with marked ST depressions inthe inferior and lateral leads with a ventricular rate 114[facility] . Critical in-stent restenosis in the ostium of the left circumflex and severestenosis of the ostium of the LAD status post successful intervention withdrug-eluting stent in the left circumflex and balloon angioplasty to theproximal LAD.2. Stable coronary artery disease otherwise with patent ABAD to the LAD andpatent vein graft extending the ABAD to the PDA.3. Normal left ventricular end-diastolic pressure.Nephrology was consulted-remained stableStable for discharge and has a follow-up appointment with Dr. Camacho this week.Anemia of chronic disease. HCT 20.7 Ultrasound of the right groin revealed nopseudoaneurysm or hematoma. She received 2 units of PRBC yesterday andtolerated the transfusion well. HCT today 30. No signs of active bleeding.Guaiac negative.Is on iron.Has remained hemodynamically stable. Blood pressures have been high. Norvascwas started and hydralazine stopped.Per Dr. Baltazarulating. Telemetry sinus rhythm-no ectopy or atrial fibrillation. HD stable.No HF on examNo chest discomfort, shortness of breath or palpitations.She wants to go home.ASA, Plavix and Xarelto--aspirin for 4 weeks and this can be discontinued. Willresume Xarelto Wednesday 02/14Aware of the importance of Plavix.All questions answered.We will follow-up with Dr. Minor this week.D/W Dr. Monterroso Exam:Blood Pressure: BP: (!) 202/78 Pulse: Heart Rate: 64Temperature: Temp: 98.1 F Respirations: Resp: 18Admission Weight: Weight: 81.2 kg (179 lb 0.2 oz) O2 Saturation: SpO2: 96 %Discharge Weight: Weight: 85.2 kg (187 lb 12.8 oz) BMI: Body mass index is 36.68kg/m .Discharge Physical Exam:Neck: NO JVPLungs: CLEAR posteriorly, diminished basesHeart: RR II/ SMAbd: SOFT/NONTENDER/NO DISTENTIONExt : WARM/DRY/NO EDEMA (+) pulses; LUE AVF + thrill, bruitRight femoral cath site intact. Ecchymosis. No bruit or pulsatile mass.Mild tenderness on palpation Diagnostics:Lab ResultsComponent Value Date CREATININE 2.43 (H) 02/11/2021 CREATININE 2.61 (H) 02/10/2021 CREATININE 3.22 (H) 02/09/2021esults from last 7 daysLab Units 02/10/2109WBC 10*3/uL 9.2 8.3 8.3HEMOGLOBIN g/dL 10.5* 7.2* 8.1*HEMATOCRIT % 30.1* 20.7* 23.6*PLATELETS 10*3/uL 104* 107* 117*Results from last 7 daysLab Units [id number] I ng/mL 15.00*Lab ResultsComponent Value Date PROBNP 10,370 (H) 02/07/2021 PROBNP 6,728 (H) 03/23/2020 PROBNP 5,524 06/03/2019Results Procedure Component Value Units Date/Time COVID/FLU AB/RSV PCR [[id number]] Collected: 02/07/21 2240 Order Status: Completed Specimen: Swab from Nasopharyngeal Updated: SPECIMEN DESCRIPTION NASOPHARYNGEAL Influenza A NEGATIVE Influenza B NEGATIVE RSV NEGATIVE Comment SEE NOTES Comment: SEE NOTE:THE U.[place]. FDA HAS MADE THIS TEST AVAILABLEUNDER AN EMERGENCY USE AUTHORIZATION(EUA) FOR THE DETECTION AND/OR DIAGNOSISOF THE VIRUS THAT CAUSES COVID-19.PERFORMED AT [address] [place] [id number] COVID19 RESULT NOT DETECTED Comment: THIS ASSAY AMPLIFIES AND DETECTSTHE TARGET RNA USING REAL-TIME PCR.TESTING PERFORMED ON [employer] GENEXPERTNEGATIVE 2019_NCOV RT-PCR RESULTS DONOT PRECLUDE 2019_NCOV INFECTION ANDSHOULD NOT BE USED THE SOLE BASISFOR PATIENT MANAGEMENT DECISIONS. FIRST TEST NO EMPLOYED IN HLTHCARE NO SYMPTOMATIC NO DATE OF SYMPT ONSET NOT APPLICABLE HOSPITALIZED YES ICU NO CONGREGATE CARE SET UNKNOWN NOMary Kathy, NPTotal time spent for discharge on date of discharge: 30 minutes Name Value Range Interpretation Code Description Data Tyra rce(s) Supporting Document(s) ID Date Data Source [id number] 02/11/2021 01:56:49 PM EDT [facility] Name Value Range Interpretation Code Description Data Tyra rce(s) Supporting Document(s) POC NOVA GLU 245 mg/dL (70-99) H [facility] STAFF ID Date Data Source [id number] 02/11/2021 09:16:40 AM EDT [facility] Name Value Range Interpretation Code Description Data Tyra rce(s) Supporting Document(s) POC NOVA GLU 197 mg/dL (70-99) H [facility] [place] [facility] ID Date Data Source [id number] 02/11/2021 07:37:34 AM EDT [facility] Name Value Range Interpretation Code Description Data Tyra rce(s) Supporting Document(s) SODIUM 142 mmol/L (136-145) [facility] POTASSIUM 3.9 mmol/L (3.6-5.2) [facility] CHLORIDE 107 mmol/L (100-108) [facility] CO2 26 mmol/L (22-31) [facility] ANION GAP 9 mmol/L (7-16) [facility] UREA NITROGEN 52 mg/dL (7-24) H [facility] CREATININE 2.43 mg/dL (0.60-1.00) H [facility] BUN/CREAT RATIO 21.4 RATIO (10.0-20.0) H [facility] GLUCOSE 190 mg/dL (70-99) H [facility] CALCIUM 8.9 mg/dL (8.4-10.2) [facility] GFR 20 ml/min/1.73m2 (>59) L [facility] GFR ([facility] AM) 24 ml/min/1.73m2 (>59) L [facility] GFR INTERPRETATION [facility] --NORMAL KIDNEY FUNCTION OR MILD DISEASE - GFR >OR= 60CHRONIC KIDNEY DISEASE - GFR 15 - 59RENAL FAILURE - GFR <15 Est. GFR calculation based on the MDRDstudy equation, which assumes a steadystate for creatinine. Est. GFR should notbe used for medication dosing. ID Date Data Source [id number] 02/11/2021 07:20:37 AM EDT [facility] Name Value Range Interpretation Code Description Data Tyra rce(s) Supporting Document(s) WBC 9.2 10*3/uL (4.1-11.0) [facility] RBC 3.56 10*6/uL (4.00-5.40) L [facility] HGB 10.5 g/dL (12.0-16.0) L [facility] HCT 30.1 % (36.0-47.0) L [facility] PATIENT TRANSFUSED MCV 84.6 fL (80.0-95.0) [facility] MCH 29.6 pg (27.0-32.0) [facility] MCHC 35.0 g/dL (32.0-36.0) [facility] RDW 15.4 % (10.5-14.5) H [facility] PLT 104 10*3/uL (150-450) L [facility] MPV 8.5 fL (7.1-10.7) [facility] ID Date Data Source [id number] 02/10/2021 09:26:26 PM EDT [facility] Name Value Range Interpretation Code Description Data Tyra rce(s) Supporting Document(s) POC NOVA GLU 238 mg/dL (70-99) H [facility] ID Date Data Source [id number] 02/10/2021 07:00:49 PM EDT [facility] [place] Name Value Range Interpretation Code Description Data Tyra rce(s) Supporting Document(s) POC NOVA GLU 226 mg/dL (70-99) H [facility] [place] [facility] ID Date Data Source [id number] 02/11/2021 01:00:46 AM EDT [facility] SPEC EXP DATE 02/13/2021ATI ENT ABO/Rh A POSITIVEANTIBODY SCREEN NEGATIVETESTING SITE PERFORMED AT [address] [place] [address] [facility] [address] B[facility] COMMENT BLOOD TYPE CONFIRMED.UNIT NUMBER [id number] COMPONENT TYPE LEUKOPOOR RED CELLSUNIT DIVISION 00STATUS OF UNIT TRANSFUSEDTRANSFUSION STATUS OK TO TRANSFUSECROSSMATCH RESULT COMPATIBLEUNIT NUMBER [id number] COMPONENT TYPE LEUKOPOOR RED CELLSUNIT DIVISION 00STATUS OF UNIT TRANS FUSEDTRANSFUSION STATUS OK TO TRANSFUSECROSSMATCH RESULT COMPATIBLE Name Value Range Interpretation Code Description Data Tyra rce(s) Supporting Document(s) TYPE AND SCREEN [facility] ID Date Data Source [id number] 02/10/2021 02:05:14 PM EDT [facility] [place] Name Value Range Interpretation Code Description Data Tyra rce(s) Supporting Document(s) POC NOVA GLU 151 mg/dL (70-99) H [facility] [place] [facility] ID Date Data Source [id number] 02/10/2021 04:29:57 PM EDT [facility] [place] Name Value Range Interpretation Code Description Data Tyra rce(s) Supporting Document(s) STOOL OCCULT BLOOD (NEG) [facility] ID Date Data Source [id number] 02/10/2021 11:08:08 AM EDT [address] [address]Pfagffy Name: OXANA COLBYYELENADOB: 1950Sex: FOrdering Provider: JANET Mcginnis Prov: JANET DURANTRefdimitry Provider: Procedure Performed: US COLOR DOPPLER LOWER EXTREMITY ARTERIES LIMITED RIGHTExam Date: 02/10/2021 11:01MRN: [id number] Number: [id number] Class: InpatientAccount #: [id number] for Exam: right femoral cath site R/O pseudoaneurysm.Technique: Real time sonographic images were obtained.Comparison: NoneFindings: No pseudoaneurysm or hematoma seen in area of concern in the right groin. Patent vasculature.IMPRESSION: No pseudoaneurysm or hematoma in right groin.Report electronically signed by: Heavenly Flowers On 02/10/2021 11:08 AMWorkstation ID: [id number] Name Value Range Interpretation Code Description Data Tyra rce(s) Supporting Document(s) ID Date Data Source [id number] 02/12/2021 09:12:09 AM EDT [facility] Name Value Range Interpretation Code Description Data Tyra rce(s) Supporting Document(s) IRON,TOTAL @ 48 ug/dL (35-150) [facility] UIBC @ 239 ug/dL (130-375) [facility] TIBC @ 287 ug/dL (250-450) [facility] % SATURATION 17 % (12-50) [facility] ID Date Data Source [id number] 02/10/2021 12:15:31 PM EDT [facility] [place] Name Value Range Interpretation Code Description Data Tyra rce(s) Supporting Document(s) WBC 8.3 10*3/uL (4.1-11.0) [facility] RBC 2.49 10*6/uL (4.00-5.40) L [facility] HGB 7.2 g/dL (12.0-16.0) L [facility] HCT 20.7 % (36.0-47.0) L [facility] MCV 83.2 fL (80.0-95.0) [facility] MCH 29.0 pg (27.0-32.0) [facility] MCHC 34.9 g/dL (32.0-36.0) [facility] RDW 15.3 % (10.5-14.5) H [facility] PLT 107 10*3/uL (150-450) L [facility] MPV 9.1 fL (7.1-10.7) [facility] ID Date Data Source [id number] 02/10/2021 12:08:13 PM EDT [facility] Name Value Range Interpretation Code Description Data Tyra rce(s) Supporting Document(s) SODIUM 141 mmol/L (136-145) [facility] POTASSIUM 4.0 mmol/L (3.6-5.2) [facility] CHLORIDE 106 mmol/L (100-108) [facility] CO2 29 mmol/L (22-31) [facility] ANION GAP 6 mmol/L (7-16) L [facility] UREA NITROGEN 63 mg/dL (7-24) H [facility] CREATININE 2.61 mg/dL (0.60-1.00) H [facility] BUN/CREAT RATIO 24.1 RATIO (10.0-20.0) H [facility] GLUCOSE 152 mg/dL (70-99) H [facility] CALCIUM 8.8 mg/dL (8.4-10.2) [facility] GFR 18 ml/min/1.73m2 (>59) L [facility] GFR ( AMER) 22 ml/min/1.73m2 (>59) L [facility] GFR INTERPRETATION [facility] --NORMAL KIDNEY FUNCTION OR MILD DISEASE - GFR >OR= 60CHRONIC KIDNEY DISEASE - GFR 15 - 59RENAL FAILURE - GFR <15 Est. GFR calculation based on the MDRDstudy equation, which assumes a steadystate for creatinine. Est. GFR should notbe used for medication dosing. ID Date Data Source [id number] 02/10/2021 09:38:07 AM EDT [facility] Name Value Range Interpretation Code Description Data Tyra rce(s) Supporting Document(s) POC NOVA GLU 159 mg/dL (70-99) H [facility] ID Date Data Source [id number] 02/09/2021 10:20:23 PM EDT [facility] Name Value Range Interpretation Code Description Data Tyra rce(s) Supporting Document(s) POC NOVA GLU 148 mg/dL (70-99) H [facility] ID Date Data Source [id number] 02/09/2021 07:13:20 PM EDT [facility] Name Value Range Interpretation Code Description Data Tyra rce(s) Supporting Document(s) POC NOVA GLU 239 mg/dL (70-99) H [facility] ID Date Data Source [id number] 02/09/2021 03:41:48 PM EDT [facility] Name Value Range Interpretation Code Description Data Tyra rce(s) Supporting Document(s) POC NOVA GLU 215 mg/dL (70-99) H [facility] [place] [facility] ID Date Data Source [id number] 02/09/2021 09:12:36 AM EDT [facility] Name Value Range Interpretation Code Description Data Tyra rce(s) Supporting Document(s) POC NOVA GLU 130 mg/dL (70-99) H [facility] [place] [facility] ID Date Data Source [id number] 02/09/2021 09:48:02 AM EDT [facility] Name Value Range Interpretation Code Description Data Tyra rce(s) Supporting Document(s) CKMB 3.4 ng/mL (0.0-5.0) [facility] CKMB RELATIVE INDEX 3.1 {index_val} (0.0-4.0) [facility] ID Date Data Source [id number] 02/09/2021 09:01:34 AM EDT [facility] Name Value Range Interpretation Code Description Data Tyra rce(s) Supporting Document(s) CK 111 U/L (26-192) [facility] ID Date Data Source [id number] 02/09/2021 09:01:34 AM EDT [facility] Name Value Range Interpretation Code Description Data Tyra rce(s) Supporting Document(s) SODIUM 143 mmol/L (136-145) [facility] POTASSIUM 3.4 mmol/L (3.6-5.2) L [facility] CHLORIDE 107 mmol/L (100-108) [facility] CO2 27 mmol/L (22-31) [facility] ANION GAP 9 mmol/L (7-16) [facility] UREA NITROGEN 78 mg/dL (7-24) HH [facility] CONSISTENT WITH PREVIOUS RESULTS CREATININE 3.22 mg/dL (0.60-1.00) H [facility] BUN/CREAT RATIO 24.2 RATIO (10.0-20.0) H [facility] GLUCOSE 131 mg/dL (70-99) H [facility] CALCIUM 8.5 mg/dL (8.4-10.2) [facility] GFR 14 ml/min/1.73m2 (>59) L [facility] GFR ( AMER) 17 ml/min/1.73m2 (>59) L [facility] GFR INTERPRETATION [facility] --NORMAL KIDNEY FUNCTION OR MILD DISEASE - GFR >OR= 60CHRONIC KIDNEY DISEASE - GFR 15 - 59RENAL FAILURE - GFR <15 Est. GFR calculation based on the MDRDstudy equation, which assumes a steadystate for creatinine. Est. GFR should notbe used for medication dosing. ID Date Data Source [id number] 02/09/2021 08:15:59 AM EDT [facility] Name Value Range Interpretation Code Description Data Tyra rce(s) Supporting Document(s) WBC 8.3 10*3/uL (4.1-11.0) [facility] RBC 2.83 10*6/uL (4.00-5.40) L [facility] HGB 8.1 g/dL (12.0-16.0) L [facility] HCT 23.6 % (36.0-47.0) L [facility] MCV 83.6 fL (80.0-95.0) [facility] MCH 28.6 pg (27.0-32.0) [facility] MCHC 34.3 g/dL (32.0-36.0) [facility] RDW 15.5 % (10.5-14.5) H [facility] PLT 117 10*3/uL (150-450) L [facility] MPV 8.8 fL (7.1-10.7) [facility] ID Date Data Source [id number] 02/09/2021 06:47:28 AM EDT [facility] Name Value Range Interpretation Code Description Data Tyra rce(s) Supporting Document(s) EKG [facility] JTHBHv7wXyINKpPpe0PfYcObQQLlQR0elrg1H3B8oTFzF6BgdRBqr4xxZ8YrT4WlIGWnSAXGZE8ItQVp jb2 [file] B5aIX47PxbNhZ1B8/4o1Y2N9+46zq7YGH2/fd40B/++/PK/avCL+B7/MblxIdXlKvAG/hNO+3gd+A3 0Ur6Uufq3bp/dxVf5qn3t2QLlt8DcQ47004+W7l/tRK/wI/45y0L1JHcCpSb6E5/pIiYr6b9fs7y12Uk gO//90a3M8e03uc6h3itgZ/ubv8flLz4uk24u6HfNU 6A7/26lfZVyTeUi/YuhxwHfoN/A4/8AqC15kgSD0szhN/eI3u2AFxN1XV0F5zwR+FZ1lNvWq/4Nj4qUD xfLdhXS/T6Mr1YeM/YV0v6/7u0/13b3awNsm+nfVVptFcn+HChwdkAsGkfs2jiiiv51FEZhKNA0j80za qN/csvt8vQHTmw48Ccr/q1eSpXp1W+St0avm/aV5UX 6SD358VwO163eZ2ed3XohEMuxrmTABaUE9t0Scmzo0l/cRaj13Fmty6F+olTAjcwp2RwcX+iYDdyQ3XW /Y3k6fX+5j7zz1u/Ly6bb9aLqZb93pyx80MVG+//Neny8JqdCuFd3fjjU921y8doo/gv0+THAK3MGBFr Ev42UVgu09g0GTiinv2939WEx/gNtIcCUZLiD5tX8C xxw00Cu+G4+7n7uUO970Bf/3x5KiRX+PRcj54a+yj4Iz0G++rr0o8I6a92Ej+2N/Jdj1eUd3eYb0LTd1 du564FT/1e2lv/p/1HK+2r/XJsT13Iq+9703q/sQa2xuH6yP/2fHcpE9X0v9yqmy/SU3XUanaQN8Yp+H t9JJ+V3268RHxaPg5I8pF+Q36vj+Tr/ulzW9zbU0n/ BvAD/HS8cPh8+jvU0ofN/AJ+ffqXtK++gTr8YPgz/4Lbm2Wc/hTZ9A1g/h+X98xj/lZm5lTaxlrrVjkp O0ypF5zxVUa0WCZpmA67xyRd5/ubT5P/116J+WRk0dxA+lS6fiVntN/+Vt+R/qN7KheFuekSc6TjBkc1 4rqk312c+wSCq2Z58hiBkqssi1kxq/hUYpR9m4/SP3 7JaKuOw9u7H9ko175ozw2qM47/bFzS++OJcn/2yjseWPm0mdlTI/T+/lWW6V/9K2/4jyz5f+7fij5Kc/ PK/mVS38nIyy+1V7/k/3FHY86pN1tb/Y6n3xKG2lrxBW/itNmpr5G5tU+s6R3Y7M9iY4Qln/E4k20494 /SnzmhIidUD7gk1L8KSMzfXFab/RxJ+9pg3Ux18Ut1 zz9RyC1uxX+UuoJJ2q7pvtfH/wBYuS0C5SV/kg7C1Jv6BNgr0VcA+llqL4X7Dft3ymA+LuEL4r282iT9 IRwXlRacupxgUzLh2vLq2DVErONrZltUz+9vSNpXxbOAX+UI8QR8IkoZfxM/Ae/Vw12o4wpeCdSG2hAO vhLv/RzxD/esqrCZf79AmzSM6psq8uC+9neLK/gVeO v6e+9myDq7B9d1++Yd25o8r9ph2ixNc/49equOAoe62XYC0GjrnGo/umnwL+DXsw8l/YM5t++0H7Cs4M rsT4F/UNI/mPPebn+ZbAf/Py70n5s+wLc/DY48dvY5eguY1L+W4R2HrrQq/mR3U3UK0X8/sbELIq6SSL U+2pv/mvQPSuId+PT/ZnpDzgb+AN/t9yDZve774/bq 1+1V+Ae1/FXi41TcpCg8ubS0gGs8+jvlexHWr8Lz7Lkz4j07yj/r1/t1+vX+lG88W8qxC8Ch+1eK/SvF /pWO3q/VSaNt44HBWu/o2QSiMy0GL+/q5Jy8OFmxA0H5/qdYjka3ZRm6/Nh5nM2Qwkl+link assembler+OjrafdbZ/ QXH+Rqn3YiJ50/3/sopdnQOQ4eC/Wu9Ms0RVfofdok l/Nop02nfk/7fcAoeBKP0+jfps8B/gT/PH/tVLA5/2xpfpbu/j14Ldwx9lR7lNdXaaA/evKq+Cv+0NXQ Z+A78D7+Jnpu1T9dnLSCt894nEJtbg1A4yrHO/ZCTZt3D/dL3GJ7Y1+TrN4Qk9srnwpZL/S9sbCv+gSu /nqLQ/SiD6upH+QS3/1Jw707f2ljT8Cvj/xmL4brK/ ukz4QwUrJxB5ZV6PK+Bx3tW3tT2/ctk3Bnud8A/wvd+xravM4s4PO3YI3NEz4PK+41qV4mKs4jmUgisg otb+XiCLCYIdfJf3lwN+UtvAH/O1fqIoodQ8Q+sAf338N+cfY2MTW+Fito+ys2vUk8ZL0HM2TW+DRXnfI x/fF/pU6vi/8gwr/gP87160/3D81LiLo0T27uCQ/qB v9eaM/b7QX/kFN/6BUusfRRn/bDaj2C1svR+re4O/4Rb25ZtRk/hQ97V/Qg/X9IF9Soa3e/6+eCfwCfv B0lWWcS1rfxok3QJ/ZZFmPO4x6ZAVbwSizMLzwye4xg/xr0lo22gz5i/Z1e+3r/Cx2TnTD+FU1BO1Ny+ MCjYwrp7Xbxp/Ab+Y44Nyb2vf8N8maoG+B2e8SsgH2 ksIv5W3H/Av8Av7+vjYU+VxzPQ0g+J9P6EsTkLGWnj2ly+2lZcz1ec13zH+32et9m+0/stn+BZvtXzD4 U551g2u7gY/gF+EN3cyEP+GI195R+Q5+tHeivfMAj/189S01IX/6gl3hV6008t3LWVuj5A6GPf0Z/kFb inIS0gI4qm1nw1XckE/6im0g15tc+dlW/17Yfd26kZ +3On/jol1tYg3o0fdwf/milRI6EIOqR2k0+tdEgFfw5/y6iAyci81q9c0XI1c8204r1JwJ39iX+8q099 vU291gZr86hih+JhW1v3hlChXdTP6DqjQzgCtDRdp6oJQ2ak7hSA/9DYjyy1oHnWT+Kyx52qmA8GCeQQ d97gzfd9Ttx34g5/622QB+AN/+BVZ0n6orqGPh8UUf a70+comqSnQluDK6AdbW5hmfvALs9kykiLWj2k+T4GdUjH1ZCRTsq6/wBBEU6V/y9i+YY/zi/JXh/JU5 5ivH/2fwOnoqP2k80KX+Qz39/WfN8T/yDTz+R880znaiiEgi1f4/aTh/DdzYm6io8GHleJY9AhnBzC2A gJ43hegSTxFrB+32/9pu/5Ht9h/G2sJtdZ2z+0z5By k2k5uagaO/URpTwW0s4bb8TrzGTLvozUiNOFjoxBk69fuV5z48QqjIgd0ilD7aUM/N4vm1N++tWNhXeW 9ihlKYiDC3XbfwxFB/3k9J/c69w6af0Hnfeaowo9t67hdMyXu+fIseZelQ3gBK/8fA5QVmJ/nfG6QcdI O404MucK/Hp17jKKM76TsO+vGwr/Ebtzy3eaKIBfrO FWX64ri+KA/4RzoCq47ZQSy087/7f/5r9n53y/++n23p4ayp1n/v1znOt/vo8/yx2jOBkJ3KHbz87q44 HxP8vV/no88/+xDg+zy/E8A4Yz4O/D7/3DD7M457sIrK4+82RklBoe1/2aZ9B545/RSffR/P39k38Rfi 9/6zV3I6sk1OeY+d7rpsBebN7fO45R6dSiZB9vg8Rm K4x0fvLh+3z0q3/PC3XaX5w7uVlqG+642p45b3za37tf6Fqg7hL13vYpMivDqodJ3K5T2a31M9I8/Hce n9Z5e+j+QR0hoXJh0O+8mAuTH8VlokwL/g+wq+r+D7ikG+Qb5/SEP+Bn/vt7v0/QUP+4vH7cyZPTbgwI vhYV/lXQbXvr/g2v4FD/oc9fT6S5+0N+k6iC0uFiKH 9t70D2+LdtaSljEvE871pQm1XBmP6jk0hf02+LK8wAtaFd/79xFFKs8/7KuLj/buSmunF/BXlRT5fMsA NtHciPp6QvWp+A3+aG+45bDfF6s0z7feM8a459cq2/e43n7sq/P+YR16TK1B+AU8vq/3/SPP+8Rw6w6i cX/Rrt7uzxyA4myxOiCS4O3W++mPnrS102r57rhhDb G0r24a+Al8+eyuyV6fts/z3im/n8c2kxa3cn+k595m4H0OU/C9f+V7Q84G/gDf60E/7e/20/akY//KsX /a3R0d2S077k/8LOAFeAG+7Wc/bT/7MeANeAfegd+QvyH/gL/t5/21/by/Xi/sr9f7++v9nP21/by/tp 839q/7m6VD9Vi+5P4U+D0g851Hd6A06Q27K/gN/gN8 709u+Ac3/IMb/uL5zz03ro+4728prZY1y3FPGBJabc+/R++376GQY+C31//85TwHpefrN1Z08M/w9/2y Pfv+ne4l7D7l23ZgeO24/C1ox9o1Kr9ZE1SS4UJ/k74Gp2PcmRkbe76/8X2fbs++G0htPr86/2r7ea++ O2cUjodl7TBL66287ppqMvSf8VdQm/t55/7X0ShKXt Xv6Hv4lpHQ0hUHs6NgJwfvm/wQUyp91T+6aeAn+CfwC/vK3mP1GV2zMoGcKDGM/A527xsch7Y2tr+b+1 fJn/oDD72rMbsmwE+ivdrnVbaivYr+uQ1O7pJ1u4zdK2jdx/7BwtuHNORj/KZ/sPAb/YbbJhig6lur+r 0KMw1y3Gx6pR0i6/p5oQ9Or0cny77l64j3KtMZr+Af 0Ifoprx5M462d4pe8Ti7fpgIXDu13/o+7Da01/m68xa95/u+1fa+P2xw6lYF/lN95ii1TO/Ed13lyE/2 4vzVdnxfd+H77WstQ+Tlwp168yhRL4hTetz28of0/u/fqF6Tg4Fj1V9cf/t+1su8lx8X4q2/5kk09J5n bm+0d6O9G/+rkv912D3C29lX3Ckc8h/utK/yMM1313 [file] Mwas3t8436DU57SVjdH42g5I/iV0Rp4DM+Ux6d6AX3 r2udr0ZixfeUEpqbFLe4yO9G70pat3a8r/wYq0xty7ciYsQPe40cx1av/J18jZed/zjDeSb+Hwa2hxfF de2/euva/KfTdfo+40t940D45aagx//msJ/H0wV//85kGWeccb+Xxfe+/37Gde//jbC77y+TOemWV+4x 2/t+Bc/0w6f2KA8huzn1slpv0YucuOsq0dOVDgw726 1m4GKbhTu6fkkzlGiekAki9iodmZu+FOQQtpU20rRAxbymgC/BiCgydTGUyxm6n7Xsx+fbDD/pwD3+fa /naUh37b45T4J2/i5J9bMSjzs+6RPAgbn4/x7zSd1zVylk95jvZy9B6+j0pe/+775HN/idm1LDDcx8hk PKr3+Kxnm30N0Zby/ZlEbsddXfNL3h9/aN7rHe+Y2e b8jYYzrfwraSgUoU1+nPmsK6/tu/Yzn3M++XdXzI7xs2C7wsm/767gn/kau1SIi1+O99cn+CB1mZeSX+ Cf+qmz5K217agIV15umJkX1mc28hdvHkJV4Qn6/3ZN716tDMePgyq7P+1JPbbR7p1q7uN2D5BdbQoFC9 GN9MnNC45hq8Eu9kzD1u6JsGtWB/DxfDfGuzHePcE3 3R26yZnehGeFL+23zGF8pMekJg/7ktmPV5Vi7eZZeJr3zP+gyMfXp+do1airI1H/UX6Cb+Ab+Xc2kwm5 +oLfM7gQ+Ux27auk4d0K5602ZvTOkSVbh2fQUhYFi+ezygB/gfjT42T+h9049Txu4+102CMf3eN1lMP0 AH+j/P6+s6r9/aL7m2vvKWRzB16tO2pt136ItS+KP7 0sfqB2bte9/UCq89i6Uj/evlu4Kw14gJJk0080bUN+6dv1Ts4vhx+8Bv/Xa9ZN8re9pvvo7ca9LY4V/5 53/PNuJ+U1yg/bk9sHvUiVo6Quk48+jst37bPbj/C9B96zbvi+xaEHdD8wZoQHutf+9dRd7y80IrE4kl GP97g6F1Cd++xd2uQD3/31nCy7jzhaeC7nriKY5tG6 0vCe4sGkUa1cx624rYU+XuC/918yZOMM57P3x+yr8vod+3ya90B1d5fm6Rbsj+yryxfwpftj+jT562kB 5QfKz8/eO+NaU936uavy6zDzlgppg9JPQ7oaD8ht5Nx+tp3xo5652u/tkew2E9xF81p3Cd/Udx5727r3 /Ya1lrAfrU/z+O9bb2boM5E5ow/Ucwm55uxY8A2f++ ryHfwzXk1+gf551x/Dgdy8xhmeuS7v71/j/ANKJ4REzp+xry5/eDiFj3Mx6LkbZY+bNK6kyIvNWw4sI8 Gz8Bhalx+qzLGvqsyxr+59yJbG4U624kQiMm039qVL2w/gT/CGcPOq1Qo9o670+Ho5ytSS5SmkOavH91 pb39o7SBv+sa/qXse+cpNPoho7Dxwc5xxm/Oq28r13 UH6i/ER5Ax/xq7Az8Lob73q10Jlg5l9kO3yN+m063sMke/o0bejOoU6cRnFaaBgTP42ZpfpXpZpp/RNe 4XVjU3wn9++LvxidnOldTL7bh1Z+j/mDGEm4Uf4QrI/gb/B3t5/54dOYUQrau0t5GCUOwapsiTMmiqSR 5Y+3Shgb0Cvvjd/9LLM+j5xlmAO8VdjnmU29+/93pH 6UjFhH6t7y7vFzyRyfJ1unr24mpAYf9pMDeCZXjqcuz/upE/yJ+xr4GG/gI4ExcD+D7+AH+h/ozwZ/d/ mB8eb+MnZ4KI1bn1zpvEa2te9QZ/bJ7hrdd56h8I+dGbt25Vjr/6rKO/iA02O7U3X5oa5a5R7HsC5I06 TznW0/r7v071nDQ/fcknsnQ3E/azbQE9L1fG/gL5Rf 2rbO1g6sKD8ZLbq9skj51Krs167no2V1rqdzaf7xkDxVXkaVk/V+7Al7+MizpJyt9uR/4ywNoVRYp9dK n0gySeN6Vnk/X878UB9+Twta4j9nvT2Xhbb1iyZl66Y4oK0J74aBto/0B+/vwnq1+ns0cv/qLug3oEc3 NFZ/f4fje+Z5FmQ9dp+/7/JI++q8E7q191ljeAXeX/ dM1Xf1mhCG9vowC6a9t7vu4Jb5vFXpCH/0jdW0s6gpw1WXqgd7DeK+OT9bmwH0qaR7ZxT0P+tVYL3K/a d8ikP5rsK+mMXMk1T17LOjkxHO3ddyVbZ+ZlS25tHScM21ijem910/kru7lss63b/cXQf8ygeX+bwxnz e+Vszv15x2nLB+b6zPG+dw9ze2tgCm740o7s41+x7z 6fVqPg/2Ir4096H08k4br/+qrgfKt/5eLgT9sAMJ/N7s8jUIR1i//WXzcbQTKB/dh1Pkz1lMdRyn2UMe 5eV4yl5QrXf1yaj831qJLxbjje/RTj/dLp65wvjiR/x1Md81y3Wzu/eenrCD+a47SKc9m4ILXq1Z1+/6 2Fd+3vcTcvCzV+Rcv+ONvNexr/r0Jp4xQxKrKsBNE+ M0y7z+FPEs8/pTtNp//Sk/SzKvX7+Bqz554oVDOPC2gru5dns86/GhoYxQi3HP85Pf9f7z1pgemjis2E ld0ggcBG/ZtO7iQ5rEQ3cuOb386jkf5+RDB7vY7/s71xsU3xr2eYQk2/y9Hi8/23/uhku66HtQ3/9y9i 3MVJWRhR1c9+b2NRxi17Ro92VvRSr05Vhy4y/z1dT/ sa/Rr8vdlCauc14ew91hyltwzDW1qysAn1Qqzog5er1i+yzKgARd0gbII99z7+gcf00vW5x3R5Zy/8Kc 7V+S06NvZB/QTu4/W15bX5/1W74W5gi4mfCSkpT52l9h3pjl4JbsRohfa12K/t9p7f+dNlF+gm8ob+Av 9Zd3ulEvLlZ8KLF+o53d/LSvsvzC+uga2t9Xvdqf2z WuX6AnKkp9AR4B++7eXxdsY8Nx1idSuH+cuwiL5fD9T2D41HvN0O+Y8A/O9A/ea/AF/PanTG9/ykz/YM 7/9A8WH/M5/YNVt/2l3c6kCwvJ5gf5czYr/AA/0B+MN/5LgB4So/kHk9/+Radames/6Ru2d595Yrj2kiL+wV n+fkvk9fJ9rgAOTrnYjvs+5nPg+xv4/qZ9da/Bx/c3 8P1N+yq/aLey929wIMlwX0GH/h0ocuaj9So6j65rrd31u/u7uXs/Z2L/amL/amL/np88p5bO/febu9t+ nrl/biy90n0Bx3h/rz10z378xqy/Aidhq3KXCnxyW4Kc60/Lxo4smy9J+T/+BL/1Zzacn6+D3/4Uy/2r mZbt6q5WA2+zfIB/xnu+O+cEf+3himV209dfj5MBkY xh4TgYMT/IObz/QRc13C98y7JIk1DA8y/X6U/N6k6AMmi3+9quH+Sc2T+b9Oca/ONPudd2/GFiwE8YJh Bvf4pJ+4KSKs4tdkUjxy9mhx6akk3z/+zH7D0OMqmF1chv/Fv4s1RL2s+6fAP/iNcr07CD/2A+l/QP5j PV9pdZ+gdzPqR/9Y26vIw/AY9u7T8Wa/9rfr7SbRQx M2NgPo8R1rmTdS+FlssvACzFp8aPsxb/0M4C3/m4Fy6ueg/pHyx+oP3d7+nA+onxk5QS5B+66R/M8se+ yvpXW4PYID06n+ZE+bBsFQuSe5E/wHe0j/Ee++q7Bh/etRumPos3mU/qF03isKivKcpnF4UMkA3jExOT cwYb9X6gs4yZ1cYLg/z4wONzECegh6b9/8hW+48s/Y CYv8zXP1d9Dlgtm9L2C52i92yw6E+81+Ab+Zu3WkgqR7N3xSmeY/jB7QGf2Z3Ahbe+juX+VV1Ll6/9q7 zWvm/rK56mm1C/yrB/Zdi/Mm9/uljqGjU2tQ1ny5EInM1ueHp880+q/Y3+KNq9r3CH6Dr/zELAx/MNPN /BmWUuKCf8RclKp/oHq+5Cf9o/zSJzr8HGhR26e0w2 /69F+87e7fu28qT9956t/INW/sEsg+t7594dd3T9onFj+RewvmLQibm8Oat3w1ut43Cp+Act96/quv1H leuE76b4Yx154Znx3zG/ZeX+VZXv/fm7DVrGxJ/1khEKiT0dei4mp27IlatZJ1v82j/wA+U3+Kwj2p2n XZxvXzjfvnC+feF8+3b5z2mL94WX8hSbZ/zEf5T99E 4csaXoJ8l1zXVawG/1P3if9Jh/sMo/JXA1r8hOv+eb/bG22ieRlfW1gadjed+41GR96APqRwA3ceS5zi B8oD+751X6B/O22LqIC8vZV0hdSkgfbAeLkrrE+APlMZ/KaU6okDy2i0pv03bsd3ZAX7lwq/qhfP3f2m oiKw4cwJcrx3i2+tvuH79Y11/gEmm8ozQ4jwLWn2X/ xC0gi2H9mR/gL/AdfAc/wA/wN/cuXe5YRrn68VK5cfH+0rxu/1Km5d1hc//+sv7/XTbBx/B62k4qu/O1 RS9MV6F3Gbk/ON++yj+A6mh0sF+8o6CoFjgOD+aZxjlrSK7L4nf1g9NaVLr3OlZR5Z5N12Mkq9OL4F1F f/D+LqzPC+/van/oWu0/Ru95kxvvmix6P3w8x4O0+3 +Xt/07Gzfu0Q+szukGyFWXeXV9zbFAnw/yxU23tl+Q2nwnOfD96llaqW/VDldCwrplBc0Xj8N3QWDiMj arwHyOPh+3Vx184FqG1ud3u7it9gcJ0xGP/l9YaV/NvD7v7/lfXse+Weni2m2ZjbznB//Ra7c/ZR37ah 8/yRwSa8CoW9BdQ44NwYa7+FMi6x5/Reh8xh9y3gz+ sIVFjVbSs7fOcqr9ucLgB25M0mzzUptb33+QVZqlh1XulrHCblqqVoavk+M+3vJ+4Zj8ykMk+FPOv7+/ 9tULYp/XJz5ln+ewXdz0vd2ta7fX5eKAgwr1LW/GD7ndp815Ie/00LxY6vHp++iKgXK8H4xCIl3DA8rv x75Sy/WcGfNFjdv1a//vPB1lIcg3bs707n+j y/S+/BUx83cuaAV/i9H+gyZ118ZMmdl1rq+ETI4g29OFVx/XbH+XbH+Xav+MHk9/biiW460m8Xf31TeW psz0qjh2uew12/qKugfPt/Pe2r4g+Ub3+oV/jw3xcaV9B0bI/oT/t/Uuy2yanYwjozDycF5Ik4k3kmrQ PjHQK+gOkXFdJ1LT1cK+IHHfGDnvZVlTeUXyjf/hQf OG3aa4tL5m09to5wtokh+Ma7JG9mu+Gz/Sk+25/iU1C+/SkO/6DPjk/e0jDmFxjAM/ANfAN/gb/Ad/DP eJ/eQ1Nq4H/HHwCct5kF18/h/TWM1/D+moLf/nM50xp0WWWc0IdD5/la+1PcFsrj+VsUu4x9vClb6rIw Wedj88N0dTb9hs0+X+yx1G4nBo1ot/HB7yr2AhTv+P 1/5LCvfLU/xVfHp/cmq4jnSs/suX9V1/m/cJX0i6USEk//Y0f5c31mqf0ogu3nab4zpe0r/2ioHc9r2l 7Az/+FurYu0/rPhehPsky5ePl855/cd7a9Z67BVk+/p58wX404B5Xg++3uHZ/udT4LbO90woEahJ5NJz HI+BTJa+vdQB9Ql+R1+ns03Evdy/Do+BQPA//4F+61 Xb+GR/tT/EpG2LlpeK+FO8wujJo80/4U3+1P8d3+FN/K7H93tm5uXrHbngbi9W/vEi0O3cma5l0Z5m7j KX72r+71An/1c0n/4LGdfLe/zNM/eK/B3/3cd/tT4ml/SqR/cCW//SmR/kHLawVfwW9/SsA/GOkfrDIT /C8Xiwh6YWP+ySmzEsyWz9EZ9CQ2kd8ivl/6P0XOIF 5jUGjWI5HM0Ef5i/sp/u7EBNBjNiX1SVNx2SlfTJ211bzMB9BLOL83s0KrOWp5HS/b/xva/qPQ9h+FYr tV4qsLYkN8Di4K+3v8Cvql1oqd/Y1QB9/BD/AD/A1+633F1axK8KRQ+KJHOk1Vh+NG1Is318f/Y/R+To v9A7RarU/ztc8rraZe3e/FCPAD/F2cX4TUa4Hsf9yi /qrityOLJB1IXePgrk341K4C+yr6bm8r9jjMG/Ws5fvsR+7b39/I/avib/U3585D6B8ZkdJ1bhQvedxM 8l1DIluHL8h///fD+n8/lM4FVQP2SpmP5T3aDZnG5tD5wfqCOTp4Rv5DsLv3ui+K9A/FxXGk6A+0M7o/ C+PF/iSpyPG0I5+B3/tXsXo/RliWpxSmKpItxJO3c+ EYb+5fZRnv/oto5v9E79qefQZ8L+UH+Biv4/l670+G9357+AJ/yY93S2FgIem1ZjP8sRu5ouaw/UcRD/ eArh9ef3H8P1YK340J/gR/gt/2c2D/KrB/JAFxPw8dxhR+9O7wZLZX/3OUIndiu8cr+H068369cbVr8l 3Ax/YCpvAxH1pI30tmw+DykI2PZx4U7NUH/8JBSaj1 o/2ez/vp analytics/xi32Vx34088M7HfGy51LAjP1Gi/vn8G0Si6B+Ag4jba43k9r23++3G0E+h/gN/n5X37UaDI [file] Jh9qTaQkJNDZU9Ooq0QhEYTvVYMMOn7+ObV4PMC7nYHvBpi8IuYmBBwrQBXFIf== ID Date Data Source [id number] 02/09/2021 12:31:28 AM EDT [facility] Name Value Range Interpretation Code Description Data Tyra rce(s) Supporting Document(s) WBC 10.0 10*3/uL (4.1-11.0) [facility] RBC 2.81 10*6/uL (4.00-5.40) L [facility] HGB 8.1 g/dL (12.0-16.0) L [facility] HCT 24.1 % (36.0-47.0) L [facility] MCV 85.7 fL (80.0-95.0) [facility] MCH 29.0 pg (27.0-32.0) [facility] MCHC 33.8 g/dL (32.0-36.0) [facility] RDW 14.8 % (10.5-14.5) H [facility] PLT 115 10*3/uL (150-450) L [facility] MPV 9.0 fL (7.1-10.7) [facility] ID Date Data Source [id number] 02/08/2021 10:55:11 PM EDT [facility] NT INFORMATIONPatient MRN Name Date of Age Gend*PT [id number] Oxana Clancy 1950 70 years F IPPT Location Admission Date/Time Visit ID Attending [id number] 02/07/21 1508 --- Jo Molina MD([id number]) EPI ID CSN Admitting Provider [id number] Attestation signed by Raymond Palumbo MD at 02/08/2021 10:55 PMI saw and evaluated the patient and reviewed PA's note. I agree with thehistory, physical and medical decision making with the following additions,exceptions, and/or observations: none.Signature: Raymond Palumbo MDDate: February 08, 2021Time: 10:55 PM --Nephrology Consult NoteReason for consult: CKD 5Requesting physician: Derek Larry.Assessment/Plan:Principal Problem: Non-ST elevation (NSTEMI) myocardial infarctionActive Problems: Acute myocardial infarction1. CKD 5: We will have to monitor her renal function status postcatheterization. She does have a left arm aVF with good bruit and thrill but itis not matured. Would continue MIVF for 4-6 hours and monitor urine output. Ifnot urinating in the next 4-6 hours consider 80 mg IV lasix.2. NSTEMI: Status post ALEX to left circumflex and balloon angioplasty to theLAD.Subjective:Patient is a 70-year-old female with a past medical history of CKD 5 [address] Camacho, CABG x2 and ALEX to the circumflex, diabetes type 2, atrialfibrillation, COPD on chronic oxygen, aortic stenosis status post AVR, [facility] with chest tightness withminimal exertion. She was ruled in for NSTEMI with troponin elevations to 16.7and was initially in atrial fibrillation with RVR. S he was transferred to Hfor work-up. On arrival is noted that she was chest pain-free. Her creatininewas 3.7 on admission and has since trended down to 3.3 today. She was receivingIV hydration. She has just returned from cardiac catheterization via rightfemoral approach using 50 cc of contrast. Cath showed restenosis of the leftcircumflex and severe stenosis of the ostium of the LAD which was status postDES in the left circumflex and balloon angioplasty to the LAD. Patient is stillpretty sleepy from sedation thus history is limited. She does have a left armaVF with thrill and bruit she states was placed about a month ago. She does notknow who her surgeon is. She is complaining of epigastric tightness currently.Otherwise she states she is doing well.ROS: Limited due to patient factors.PMH:Past Medical History:Diagnosis Date Cardiac CATH 09/09/2018 09/09/2018 [facility], . 50%dRCA, normal LV EF, moderately severe , moderately severepulmonary hypertension COPD (chronic obstructive pulmonary disease) Diabetes mellitus 09/08/2018 Diastolic CHF 09/08/2018 Essential hypertension 09/08/2018 History of diabetic ulcer of foot, right 09/201809/08/2018 History of pericarditis 10/201811/17/2018 Hx of CABG 09/201809/14/2018 [facility], ABAD to LAD, SVG to LV branch CABG and AVR with #23 Magna ease prosthesisDr.Nazem Hyperlipidemia 09/01/1959 Moderate left ventricular hypertrophy Obesity 06/13/2019 PATRICK (obstructive sleep apnea) Osteomyelitis due to type 2 diabetes mellitus 09/201809/08/2018 Paroxysmal atrial fibrillation 11/17/2018 Pulmonary hypertension, moderate to severe 03/22/2020 S/P AVR (aortic valve replacement) 09/2018 #23 Magna Ease prosthesisFH:Family HistoryProblem Relation Age of Onset Heart disease Mother Diabetes Mother Heart failure FatherSH:Social HistorySocioeconomic History Marital status: Spouse name: Not on file Number of children: Not on file Years of education: Not on file Highest education level: Not on fileOccupational History Occupation: RetiredTobacco Use Smoking status: Never Smoker Smokeless tobacco: Never UsedSubstance and Sexual Activity Alcohol use: No Drug use: No Sexual activity: Not on fileOther Topics Concern Bike Helmet Not Asked History of Falls Not Asked Self-Exams Not Asked Caffeine Concern Not Asked Hobby Hazards Not Asked Sleep Concern Not Asked Daily Calcium Supplement Not Asked Lead Exposure Not Asked Special Diet Not Asked Daily Vitamin D Supplement Not Asked Service Not Asked Stress Concern Not Asked Domestic Violence in home Not Asked Radon exposure Not Asked Weight Concern Not Asked Exercise Not Asked Seat Belt Not Asked Well water Not Asked Firearms in home Not AskedSocial History Narrative Patient has a scheduled appointment with vascular surgery for evaluation for AVfistula in preparation for HDSocial Determinants of HealthFinancial Resource Strain: Low Risk Difficulty of Paying Living Expenses: Not hard at allFood Insecurity: No Food Insecurity Worried About Running Out of Food in the Last Year: Never true Ran Out of Food in the Last Year: Never trueTransportation Needs: No Tr ansportation Needs Lack of Transportation (Medical): No Lack of Transportation (Non-Medical): NoPhysical Activity: Days of Exercise per Week: Minutes of Exercise per Session:Stress: Feeling of Stress :Social Connections: Frequency of Communication with Friends and Family: Frequency of Social Gatherings with Friends and Family: Attends Holiness Services: Active Member of Clubs or Organizations: Attends Club or Organization Meetings: Marital Status:Intimate Partner Violence: Fear of Current or Ex-Partner: Emotionally Abused: Physically Abused: Sexually Abused:Meds:No current facility-administered medications on file prior to encounter.Current Outpatient Medications on File Prior to EncounterMedi cation Sig Dispense Refill acetaminophen (TYLENOL) 500 MG tablet Take 1,000 mg by mouth every 6 (six)hours as needed for pain aspirin 81 MG EC tablet Take 81 mg by mouth daily 5 cholecalciferol (VITAMIN D3) 25 MCG (1000 UT) capsule Take 1,000 Units bymouth daily clopidogrel (PLAVIX) 75 MG tablet Take 1 tablet (75 mg total) by mouth [id number] tablet 11 Ubseodldvvz-Jplpvngtn-Fvgewp (TRELEGY ELLIPTA) 100-62.5-25 MCG Inhale 1 puffdaily HUMULIN R U-500 KWIKPEN 500 UNIT/ML SOPN Inject 70 Units under the skin 3(three) times a day with meals 0 hydrALAZINE (APRESOLINE) 25 MG tablet Take 25 mg by mouth 2 (two) times a day isosorbide dinitrate (ISORDIL) 20 MG tablet Take 20 mg by mouth 3 (three)times a day omeprazole (PRILOSEC) 40 MG capsule Take 40 mg by mouth daily oxyCODONE-acetaminophen (PERCOCET) 5-325 MG per tablet Take 1 tablet by mouthevery 8 (eight) hours as needed for pain potassium chloride SA (K-DUR,KLOR-CON) 10 MEQ tablet Take 10 mEq by mouth 2(two) times a day rOPINIRole (REQUIP) 1 MG tablet Take 1 mg by mouth 2 (two) times a day sertraline (ZOLOFT) 50 MG tablet Take 100 mg by mouth nightly torsemide (DEMADEX) 100 MG tablet Take 0.5 tablets (50 mg total) by mouthdaily XARELTO 20 MG TABS Take 20 mg by mouth daily 5All:AllergiesAllergen Reactions Penicillins Rash As a teen after unknown durationObjective:Blood Pressure: BP: 162/72 Pulse: Heart Rate: 74Temperature: Temp: 97.8 F Respirations: Resp: 20Admission Weight: Weight: 81.2 kg (179 lb 0.2 oz) O2 Saturation: SpO2: 97 %Today's Weight: Weight: 82 kg (180 lb 12.4 oz) BMI: Body mass index is 35.31kg/m .Intake/Output Summary (Last 24 hours) at 02/08/2021 1440Last data filed at 02/08/2021 1430Gross per 24 hourIntake 2083.5 mlOutput 1250 mlNet 833.5 mlI/O last 3 completed shifts:In: 2083.5 [P.O.:720; I.V.:1363.5]Out: 400 [Urine:400]Gen: No acute distressHEENT: Normocephalic, grossly atraumatic. Sclera anicteric, conjunctive areclear.Neck: Supple, nontender. No LAD.Lungs: Clear anteriorlyHeart: Regular, bradycardic.Abd: Soft, nontenderExt: Trace edemaVasc: Left arm aVF positive bruit and thrill.Neuro: Grossly intact. She moves all her extremities spontaneously. Her speechis clear.Labs reviewed today at 2:40 PM :Lab ResultsComponent Value Date WBC 7.9 02/08/2021 HGB 10.1 (L) 02/08/2021 HCT 28.4 (L) 02/08/2021 PLT 135 (L) 02/08/2021ab ResultsComponent Value Date NA 141 02/08/2021 K 3.2 (L) 02/08/2021 CL 103 02/08/2021 CO2 30 02/08/2021 BUN 91 (HH) 02/08/2021 CREATININE 3.30 (H) 02/08/2021 GLU 211 (H) 02/08/2021 CALCIUM 8.8 02/08/2021ab ResultsComponent Value Date PHOS 3.0 09/11/2018Lab ResultsComponent Value Date CREATININE 3.30 (H) 02/08/2021 CREATININE 3.71 (H) 02/07/2021 CREATININE 1.70 (H) 03/29/2020Lab ResultsComponent Value Date BILIDIR 0.1 09/11/2018 ALKPHOS 89 03/23/2020 ALKPHOS 84 09/11/2018 ALT 27 03/23/2020 ALT 22 09/11/2018 AST 27 03/23/2020 AST 10 (L) 09/11/2018 ALBUMIN 3.2 03/23/2020 ALBUMIN 2.9 (L) 09/11/2018 ALBUMIN 2.9 06/13/2016 PROT 5.4 (L) 09/17/2018 PROT 5.4 (L) 09/17/2018Imaging:Reviewed.Current Meds:Scheduled Meds: aspirin 81 mg Oral Daily atorvastatin 80 mg Oral Nightly carvedilol 12.5 mg Oral BID clopidogrel 75 mg Oral Nightly hydrALAZINE 10 mg Oral Q8H DARIO insulin lispro 1-12 Units Subcutaneous With meals sliding scale nitroglycerin 1 g Topical Q6H DARIO pantoprazole 40 mg Oral Daily rOPINIRole 1 mg Oral BID sertraline 100 mg Oral NightlyContinuous Infusions: heparin (porcine) in NaCl Stopped (02/08/21 1438) sodium chloride 75 mL/hr at 02/08/21 0852PRN Meds:.acetaminophen, atropine sulfate, clopidogrel, fentaNYL Citrate (PF),heparin (porcine), heparin (porcine), lidocaine, midazolam, nitroglycerin,oxyCODONE-acetaminophen, traMADolDylan L Dixmont, JUSTINE portion of this chart was dictated using [employer], an [employer] speaking softwarewhich may lead to typographical errors. A reasonable effort has been made toproofread but please call with any questions or errors. Name Value Range Interpretation Code Description Data Tyra rce(s) Supporting Document(s) ID Date Data Source [id number] 02/09/2021 06:22:34 AM EDT [facility] Name Value Range Interpretation Code Description Data Tyra rce(s) Supporting Document(s) POC NOVA GLU 186 mg/dL (70-99) H [facility] [place] [facility]INICAL STAFF ID Date Data Source [id number] 02/08/2021 03:58:16 PM EDT [facility] Name Value Range Interpretation Code Description Data Tyra rce(s) Supporting Document(s) POC NOVA GLU 221 mg/dL (70-99) H [facility]IN[facility] STAFF ID Date Data Source [id number] 02/08/2021 02:37:47 PM EDT [facility] Name Value Range Interpretation Code Description Data Tyra rce(s) Supporting Document(s) &PDF [facility] KWYHVw2xHgMWFvZs53/CHQxpLWTmf0PgYInoBXd9OJxaOFKfO7XcoXiyNUCQOYiWKakVIwrEEGcZDNJQ lYX [file] AgICAgICAgICAgICAgICAgICAgICAgICAgICAgICAgICAgICAgICAgICAgICAgICAgICAgICAgICAgIC DuLCDtSJVpUXWsSLUvDCIaAYPnZBKxZNVkPOAiGQHkHBLtFD2RLDCvOUBgKIGqETDwXVHuFRGwIIYkND AgICAgICAgICAgICAgICAgICAgICAgICAgICAgICAg PIAnBAShVVChNVUxYELpAIYjIITaDYEaLXMcWMUmVWKaWNQbDMOnQUUlCGRvML6BKFHoWASpOUPiTUId ICAgICAgICAgICAgICAgICAgICAgICAgICAgICAgICAgICAgICAgICAgICAgICAgICAgICAgICAgICAg TBOlYWUbDRMtBQYeYGTgLXVxQMIxJSNmGFYgCY6KOJ AgICAgICAgICAgICAgICAgICAgICAgICAgICAgICAgICAgICAgICAgICAgICAgICAgICAgICAgICAgIC EsYFMiTXXmWEOqPOGrUKJgLYCiSNDjMCByJLJcVWSmGOOcUCGbDT8XSJMrNAVpSTKrCZXmQPHgBLUiZV AgICAgICAgICAgICAgICAgICAgICAgICAgICAgICAg CLBsKBHjMFVpWLZqJTAiGCZkSWYfIBQsPLAvCOJgOJCeRCRnRENtLRTlUXBhYPGmMR4KSGIaWIHvCUGf ICAgICAgICAgICAgICAgICAgICAgICAgICAgICAgICAgICAgICAgICAgICAgICAgICAgICAgICAgICAg ICAgICAgICAgICAgICAgICAgICAgICAgICAgICAgIA 0KICAgICAgICAgICAgICAgICAgICAgICAgICAgICAgICAgICAgICAgICAgICAgICAgICAgICAgICAgIC WjLCWkJNGiCRFiBUOfECZdQGPyVEOwQWGfEQKdTIGkCFDxYMVzBZHrMQ0DEJTpRVPxKUFrBLGfXWFcVT AgICAgICAgICAgICAgICAgICAgICAgICAgICAgICAg JLGvDYEaPHDpJWEnRZMxOBBiDAHkTDViNIHmNZOiKSPdMVUvHFEyCXNcOZLaJGNpZCVsJQ8JRREyLSZd ICAgICAgICAgICAgICAgICAgICAgICAgICAgICAgICAgICAgICAgICAgICAgICAgICAgICAgICAgICAg ICAgICAgICAgICAgICAgICAgICAgICAgICAgICAgIC IjPU0NVVWuLURcJKWnVAIzKLUuDRIcTCKsZDDvQFYfFBReSKYcISOzOMIhYYFkYLLqGWZiSBOfUFOnMX IjQISkQQRzZBRpGHQfEVYwYQBgLNZiIERyYKAlCYHqTHJpBGSlRFCuUXLbYW4EBS97lUZlv8N7BMFfCX 0ndyc/Mr5GULnjlfFpjIAjIJ9BCzBeBR9tum1TXrOh YJ7xpp0JSNcAWrNrS3G9jACtBCItHUYUOgLjO23aEQgxUr45FUzoRQNgNfLsPFe9Pq5DIvUsR3cgPCFn CrM4EBUhNyO7JVTaHpU9MKLeFaEzZTWpJTAyUPDcZPNIBYQ7LJGqCtLxHDxmVB2Be9VfjUZ5VPv+Pg0K DN3uj0YaHMiiPWZqHI9jwd9TRMzCXwDjO5CtvmT6NL EqYEUyPz1JRCYzKSTgiQBkHKDsYLBDDuKeG4IpmN01MHCPUm6+BKmbikSaHnsGLuBsKIHnf9EbPMp9GM 8OTYAiLNb1pDXxEQ2weEShjCSjHSodTU4JCIE6FYfgYbXpXYRbH1zQMjNuCINzBUDowNmnFZ5GIgAsS2 BhcmVudCAzMCAwIFINCj4+DQplbmRvYmoNCjMyIDAg u2TwZPv6FT4MHFTkSZvbLJ3RFVXsjS1hEKyrJH4AQfXkSDPhEDQDRxYaI43coHOmCSm9L1BiVuHbEHZh RmlsZXMgPDwvTmFtZXMgWyBdDQogID4+ID4+PHfoII8SPLjdffOhNAHrAl9PWBGnQYGhMH9zPXOiYCHa U6S8iGrxOUFYMwIoJ6olraolHL5xFYXjD854oSpghm CgPOFiZJLiNa7KSLXtUXS8VJBmfUUxMwvdHLKGOEllHP4MuPWyWSR9yY1wALzfTCMoYLVqS2uQGdIulE fkSN41pIxxupTffUPnXXy+Ue6JWW0lk9EgKXc8fxGlAPtqAKMmEDvcZTBbZHExPIPfDCI4GAH9CXYWRc JcZXSmWYUyNAprZTJnHJFlkc7YAARpRZA5TTU5YiRp JKJuRDKqCFzuTOFrFRd6XzUwGCNrMXPiMH5BTrKtCOHpCSXzHIYgPEYfGJZtwh2TAGBhPDBeKxU7ReLo GOGuTPMbALthAZRiUQWuLbicPQXfFIWeCW0VHjRlGNEmRBFrFrDdIJNbJFRkha2DANAkSRVtSNV5SBYu OOAcOJWiYBceLXFeVDB7LtQzWRBwRMJlTN6WFfSvMS OiAMk0JVGgLUWoQMOhjw8TNPKcGCEbAXQfXXWmPZQlGRWxCHphWNXeGXR7CoA2LBVcIRWtLP0ZKgHmZN QdLEP3QoHbFDBhLMKjax6PXNLxQALuYEY7TCEmQQZqWYBnJMkdRFZaZNFcINX4DXSsCWGlCS7JAuKiCK SqYRTfZFWpUVYdREXffc5XMPHeZQThKDNgYHLxNJQc ESBzIDkkVWPqFLI2XTV8VICpCOSwPL9IJlGiYCBgGBN6PMMaONInEWHnyx0GQAMnZMYmWDM9FJFuBXMq VBEqFGfnJFSjDRY1BxFzALKiAZVfCY3JPmPuMFSxHAN8StsjBEWlIUGabh2PARKgQQPiJIFiPvExMHMk JFCrTKznEAOyTUO5Uht0RPWiNPXcHC4XYtUkYPDjZf j7MMydRXKuTNPfbu3WVDYuGVN2FON0KsGiFQLsEDAnUKrwLPUpHXX6FBOdISSuVWXnBN2OJbRxHWYzJN O0YaWgVLRyYSRjgi1RFWKeQTK7SHOfXrPlQHVcIIRkDAmqAAOzTKf5BOutMSLpMCSfWP0UJeAgARTyMF S6IHPgZNGuXPYuno3RRAEoNBL6NjQ0KeTpEOFuJMJb HYv8dqWmfPRjLKw0BS9LL5IoemVcGxLIOt0Jo332SKCrFZDnDo7YF9hsNb3yDJMsDZWNRf9WHBq9UzB7 LOBjJ2AgPNGlG4Q0TfxlV5E0HPAyRjQaCdUvD4E+ACs9JIS0QLW4TFKlIHA0OqmfYEC2SXD7ZvRlNQPa BEHvEP3kZREHCp3+UJklgIFawOtdUYDAIbi7NGx1BZuhVXSQEk2D ID Date Data Source [id number] 02/08/2021 03:43:15 PM EDT [facility] Name Value Range Interpretation Code Description Data Tyra rce(s) Supporting Document(s) APTT 45.3 s (22.0-34.3) H [facility] ID Date Data Source [id number] 02/08/2021 11:42:12 AM EDT [facility] Name Value Range Interpretation Code Description Data Tyra rce(s) Supporting Document(s) POC NOVA GLU 251 mg/dL (70-99) H [facility] STAFF ID Date Data Source [id number] 02/08/2021 08:19:06 AM EDT [facility] Name Value Range Interpretation Code Description Data Tyra rce(s) Supporting Document(s) POC NOVA GLU 215 mg/dL (70-99) H [facility] ID Date Data Source [id number] 02/08/2021 06:23:10 AM EDT [facility] Name Value Range Interpretation Code Description Data Tyra rce(s) Supporting Document(s) EKG [facility] QFQEWi3eXfKPXbPpf8KkBbBpJGOwTG7rget4K5X9xTCdD2NlyUDcw8auV7JyN1PzQREeSRPEYB4TtARx jb2 [file] L9CV3mdHGg+McXoW7ynqRpFhKggalmcxNm7/x6zaIijFWy2r7+SET UP WORKER+xX24+SET UP WORKER+2sWH2bglg453ZZZ/2n9 [file] CK4gmgyr8xpTV/syGL/TCksR+Rifle Case Repairer+OXd6B5p9PYR/CEYofTb5ylb802ZDervG8pun/O6oqWoMwCdAO+GL [file] AwMDAgbiAKMDAwMDAwMTYwOSAwMDAwMCBuIAowMDAw GZJlSeM4LLApIBCsAR6yFnNeAZGaFJW8VFQnLWNlINAtcxWLMKBqMXZvEIViKMR1KOKwNIBlQOn0ihLy iMQnJky9Jh0JxScnSTO4Gf7TrhCaKIRuHGGDYt7Jz420FWJhQJEWWlf+PgpzdGFydHhyZWYKOTgzMzYK RDKVI5G= ID Date Data Source [id number] 02/08/2021 05:56:39 AM EDT [facility] Name Value Range Interpretation Code Description Data Tyra rce(s) Supporting Document(s) SODIUM 141 mmol/L (136-145) [facility] POTASSIUM 3.2 mmol/L (3.6-5.2) L [facility] CHLORIDE 103 mmol/L (100-108) [facility] CO2 30 mmol/L (22-31) [facility] ANION GAP 8 mmol/L (7-16) [facility] UREA NITROGEN 91 mg/dL (7-24) HH [facility] CONSISTENT WITH PREVIOUS RESULTS CREATININE 3.30 mg/dL (0.60-1.00) H [facility] BUN/CREAT RATIO 27.6 RATIO (10.0-20.0) H [facility] GLUCOSE 211 mg/dL (70-99) H [facility] CALCIUM 8.8 mg/dL (8.4-10.2) [facility] GFR 14 ml/min/1.73m2 (>59) L [facility] GFR ( AMER) 17 ml/min/1.73m2 (>59) L [facility] GFR INTERPRETATION [facility] --NORMAL KIDNEY FUNCTION OR MILD DISEASE - GFR >OR= 60CHRONIC KIDNEY DISEASE - GFR 15 - 59RENAL FAILURE - GFR <15 Est. GFR calculation based on the MDRDstudy equation, which assumes a steadystate for creatinine. Est. GFR should notbe used for medication dosing. ID Date Data Source [id number] 02/08/2021 05:19:16 AM EDT [facility] Name Value Range Interpretation Code Description Data Tyra rce(s) Supporting Document(s) APTT 52.7 s (22.0-34.3) H [facility] ID Date Data Source [id number] 02/08/2021 05:08:05 AM EDT [facility] [place] [facility] [place] Name Value Range Interpretation Code Description Data Tyra rce(s) Supporting Document(s) WBC 7.9 10*3/uL (4.1-11.0) [facility] [place] [facility] [place] RBC 3.47 10*6/uL (4.00-5.40) L [facility] [place] [facility] [place] HGB 10.1 g/dL (12.0-16.0) L [facility] [place] [facility] [place] HCT 28.4 % (36.0-47.0) L [facility] [place] [facility] [place] [address] [place] [id number] MCV 81.9 fL (80.0-95.0) [facility] [place] [facility] [place] MCH 29.0 pg (27.0-32.0) [facility] [place] [facility] [place] MCHC 35.5 g/dL (32.0-36.0) [facility] [place] [facility] [place] RDW 15.1 % (10.5-14.5) H [facility] [place] [facility] [place] PLT 135 10*3/uL (150-450) L [facility] [place] [facility] [place] Aguialr MPV 9.0 fL (7.1-10.7) [facility] [place] [facility] [place] ID Date Data Source [id number] 02/07/2021 10:40:00 PM EDT [facility] Name Value Range Interpretation Code Description Data Tyra rce(s) Supporting Document(s) SARS coronavirus 2 RNA [Presence] in Res piratory specimen by ALLAN with probe detection NOT DETECTED [facility] This lab was reported by [facility] [place] [facility]. ID Date Data Source [id number] 02/08/2021 12:31:56 AM EDT [facility] [place] Name Value Range Interpretation Code Description Data Tyra rce(s) Supporting Document(s) SPECIMEN DESCRIPTION [facility] [place] INFLUENZA A (NEG) [facility] [place] [facility] INFLUENZA B (NEG) [facility] [place] [facility] RSV (NEG) [facility] [place] [facility] COMMENT [facility] [place] [facility] THE [place] FDA HAS MADE THIS TEST AVAILABL EUNDER AN EMERGENCY USE AUTHORIZATION(EUA) FOR THE DETECTION AND/OR DIAGNOSISOF THE VIRUS THAT CAUSES COVID-19.PERFORMED AT [address] [place] [id number] COVID19 RESULT (NDET) [facility] [place] [facility] THIS ASSAY AMPLIFIES AND DETECTSTHE TARG ET RNA USING REAL-TIME PCR.TESTING PERFORMED ON [employer] GENEXPERTNEGATIVE 2019_NCOV RT-PCR RESULTS DONOT PRECLUDE 2019_NCOV INFECTION ANDSHOULD NOT BE USED THE SOLE BASISFOR PATIENT MANAGEMENT DECISIONS. FIRST TEST [facility] [place] [facility] [place] [employer] [facility] [employer] [place] SYMPTOMATIC [facility] [place] [facility] [place] Aguilar DATE OF SYMPT ONSET [facility] [place] [facility] [place] [facility] ICU [facility] [place] [facility] [place] [facility] SET [facility] [place] [facility] [place] [facility] ID Date Data Source [id number] 02/07/2021 10:17:48 PM EDT [facility] [place] [facility] [place] Name Value Range Interpretation Code Description Data Tyra rce(s) Supporting Document(s) APTT 62.6 s (22.0-34.3) H [facility] [place] [facility] [place] ID Date Data Source [id number] 02/13/2021 07:04:12 AM EDT [facility] [place] [facility] [place] Name Value Range Interpretation Code Description Data Tyra rce(s) Supporting Document(s) POC NOVA GLU 198 mg/dL (70-99) H [facility] [place] [facility] [place] PERFORMED BY [facility] ID Date Data Source [id number] 02/07/2021 05:15:58 PM EDT [facility] NT INFORMATIONPatient MRN Name Date of Age Gend*PT [id number] Oxana Clancy 1950 70 years F OBSPT Location Admission Date/Time Visit ID Attending [id number] 02/07/21 1503 --- Jo Molina MD([id number]) EPI ID CSN Admitting Provider [id number] Attestation signed by Jo Molina MD at 02/07/2021 5:15 PMNon-Q wave myocardial infarction with a troponin level of 16.7. She is nowchest pain-free. She took Xarelto last night at 8 PM and she has advancedrenal insufficiency. I would prefer to wait until tomorrow for the cardiaccatheterization because of the high risk of bleeding since we are going toproceed from femoral access unless there is unstable symptoms. Continue withmaximum anti-ischemic therapy including aspirin beta-blockers nitrates andPlavix. She was already started on heparin as well. We will follow vera mcconnell.Cardiac catheterization planned from the right femoral bruit. Risks andbenefits explained. She already has a fistula in the left arm in anticipationof the need for dialysis.Signature: Jo Molina, MDDate: February 07, 2021Time: 5:14 PM --Cardiology History and PhysicalName: Oxana Clancy Gender: femaleDate of : 1950 Age: 70 yearsDate/Time of Admit: 02/07/2021 3:03 PM Code Status: PriorPrimary Care ProviderReferring Physician: Flaquita RIZZO [facility] Complaint: Chest pain and shortness of breath. Poor historian.[facility] with a NSTEMIHPI: This is a 70-year-old female with a PMH including PAD s/p angioplasty,aortic stenosis s/p bioprosthetic #23 Magna AVR, COPD O2 dependent, PATRICK,hyperlipidemia, hypertension, DM 2, PAF,CKD stage III and CAD status post CABGx2 (ABAD to the LAD and vein graft of the ABAD to the PDA) and ALEX to the CX.Her last hospitalization was 03/2020 when she presented with a non-ST elevationinfarction.Cardiac catheterization revealed three-vessel coronary disease. Patent LIMAwhich was extended by a vein graft to the distal LAD and onto the distal RCA.She had successful PCI with a drug-eluting stent to the ostium of the circumflexartery.ECHO 03/2020 revealed an LVEF of 65%. Bioprosthetic aortic valve well-seated.She reports that since her last cath she has continued to experience shortnessof breath with exertion and dizziness. Yesterday while she was sitting watchingTV she developed midsternal chest tightness and "squeezing" that she thought wasindigestion. She ate some food but it continued. Denies any radiation or otherassociated symptoms. Reports it was similar to her previous anginal symptoms.Denies orthopnea, PND, palpitation, lower extremity edema or syncope. [facility] She ruled in for a NSTEMI. Troponinelevated to 16.7.Initial EKG 02/06 revealed rapid atrial fibrillation with marked ST depressions inthe inferior and lateral leads with a ventricular rate 114EKG today revealed sinus bradycardia with a septal infarction and STabnormalities in the inferior lateral leads.Transferred to [facility] for cardiac catheterization. On arrival she is chestpain-free.Troponin 16.7 CK 411Thyroid levels normalHCT 33.4/7.3Creatinine 3.7 BUN 94Covid 19 negative 9HistoryPast Medical History:Diagnosis Date Cardiac CATH 09/09/2018 09/09/2018 [facility], . 50%dRCA, normal LV EF, moderately severe , moderately severepulmonary hypertension COPD (chronic obstructive pulmonary disease) Diabetes mellitus 09/08/2018 Diastolic CHF 09/08/2018 Essential hypertension 09/08/2018 History of diabetic ulcer of foot, right 09/201809/08/2018 History of pericarditis 10/201811/17/2018 Hx of CABG 09/201809/14/2018 [facility], ABAD to LAD, SVG to LV branch CABG and AVR with #23 Magna ease prosthesisDr.Nazem Hyperlipidemia 09/01/1959 Moderate left ventricular hypertrophy Obesity 06/13/2019 PATRICK (obstructive sleep apnea) Osteomyelitis due to type 2 diabetes mellitus 09/201809/08/2018 Paroxysmal atrial fibrillation 11/17/2018 Pulmonary hypertension, moderate to severe 03/22/2020 S/P AVR (aortic valve replacement) 09/2018 #23 Magna Ease prosthesisPast Surgical History:Procedure Laterality Date CARDIAC CATHETERIZATION N/A 09/09/2018 Procedure: Left heart cath; Surgeon: Renato Melissa MD; Laterality: N/A; CARDIAC CATHETERIZATION N/A 09/09/2018 Procedure: Right heart cath; Surgeon: Renato Melissa MD; Laterality: N/A; CARDIAC CATHETERIZATION N/A 09/09/2018 Procedure: Left ventriculography; Surgeon: Renato Melissa MD; Laterality:N/A; CARDIAC CATHETERIZATION N/A 09/09/2018 Procedure: Coronary angiography; Surgeon: Renato Melissa MD; Laterality: N/A; CARDIAC CATHETERIZATION N/A 03/28/2020 Procedure: Cardiac catheterization; Surgeon: Melisa Desai MD; Laterality:N/A; CARDIAC CATHETERIZATION N/A 03/28/2020 Procedure: Coronary angiography; Surgeon: Melisa Desai MD; Laterality:N/A; CARDIAC CATHETERIZATION N/A 03/28/2020 Procedure: Left ventriculography; Surgeon: Melsia Desai MD; Laterality:N/A; CARDIAC SURGERY N/A 09/14/2018 Procedure: MEDIAN STERNOTOMY, ABAD TAKEDOWN, CORONARY GRAFTS X2, W RIGHTSAPHENOUS VEIN ENDOSCOPIC HARVEST REPLACE AORTIC VALVE (MAGNA EASE 23MM), IVA;Surgeon: Marvin Rousseau MD; Laterality: N/A;Social HistorySocioeconomic History Marital status: Spouse name: Not on file Number of children: Not on file Years of education: Not on file Highest education level: Not on fileOccupational History Occupation: RetiredTobacco Use Smoking status: Never Smoker Smokeless tobacco: Never UsedSubstance and Sexual Activity Alcohol use: No Drug use: No Sexual activity: Not on fileOther Topics Concern Bike Helmet Not Asked History of Falls Not Asked Self-Exams Not Asked Caffeine Concern Not Asked Hobby Hazards Not Asked Sleep Concern Not Asked Daily Calcium Supplement Not Asked Lead Exposure Not Asked Special Diet Not Asked Daily Vitamin D Supplement Not Asked Service Not Asked Stress Concern Not Asked Domestic Violence in home Not Asked Radon exposure Not Asked Weight Concern Not Asked Exercise Not Asked Seat Belt Not Asked Well water Not Asked Firearms in home Not AskedSocial History Narrative Patient has a scheduled appointment with vascular surgery for evaluation for AVfistula in preparation for HDSocial Determinants of HealthFinancial Resource Strain: Low Risk Difficulty of Paying Living Expenses: Not hard at allFood Insecurity: No Food Insecurity Worried About Running Out of Food in the Last Year: Never true Ran Out of Food in the Last Year: Never trueTransportation Needs: No Transportation Needs Lack of Transportation (Medical): No Lack of Transportation (Non-Medical): NoPhysical Activity: Days of Exercise per Week: Minutes of Exercise per Session:Stress: Feeling of Stress :Social Connections: Frequency of Communication with Friends and Family: Frequency of Social Gatherings with Friends and Family: Attends Holiness Services: Active Member of Clubs or Organizations: Attends Club or Organization Meetings: Marital Status:Intimate Partner Violence: Fear of Current or Ex-Partner: Emotionally Abused: Physically Abused: Sexually Abused:Family HistoryProblem Relation Age of Onset Heart disease Mother Diabetes Mother Heart failure FatherMedications & AllergiesAllergies:AllergiesAllergen Reactions Penicillins Rash As a teen after unknown durationMedications:Medications Prior to AdmissionMedication Sig acetaminophen (TYLENOL) 500 MG tablet Take 1,000 mg by mouth every 6 (six)hours as needed for pain aspirin 81 MG EC tablet Take 81 mg by mouth daily cholecalciferol (VITAMIN D3) 25 MCG (1000 UT) capsule Take 1,000 Units bymouth daily clopidogrel (PLAVIX) 75 MG tablet Take 1 tablet (75 mg total) by mouth nightly Mgsggqsnatn-Dwtjmgviu-Zpaisg (TRELEGY ELLIPTA) 100-62.5-25 MCG Inhale 1 puffdaily HUMULIN R U-500 KWIKPEN 500 UNIT/ML SOPN Inject 70 Units under the skin 3(three) times a day with meals hydrALAZINE (APRESOLINE) 25 MG tablet Take 25 mg by mouth 2 (two) times a day isosorbide dinitrate (ISORDIL) 20 MG tablet Take 20 mg by mouth 3 (three)times a day omeprazole (PRILOSEC) 40 MG capsule Take 40 mg by mouth daily oxyCODONE-acetaminophen (PERCOCET) 5-325 MG per tablet Take 1 tablet by m outhevery 8 (eight) hours as needed for pain potassium chloride SA (K-DUR,KLOR-CON) 10 MEQ tablet Take 10 mEq by mouth 2(two) times a day rOPINIRole (REQUIP) 1 MG tablet Take 1 mg by mouth 2 (two) times a day sertraline (ZOLOFT) 50 MG tablet Take 100 mg by mouth nightly torsemide (DEMADEX) 100 MG tablet Take 0.5 tablets (50 mg total) by mouthdaily XARELTO 20 MG TABS Take 20 mg by mouth daily Scheduled Meds: aspirin 81 mg Oral Daily atorvastatin 80 mg Oral Nightly carvedilol 12.5 mg Oral BID clopidogrel 75 mg Oral Nightly heparin (porcine) 60 Units/kg Intravenous Once insulin lispro 1-12 Units Subcutaneous With meals sliding scale nitroglycerin 1 g Topical Q6H DARIO pantoprazole 40 mg Oral Daily rOPINIRole 1 mg Oral BID sertraline 100 mg Oral NightlyContinuous Infusions: heparin (porcine) in NaClPRN Meds:.acetaminophen, heparin (porcine), nitroglycerin,oxyCODONE-acetaminophen, traMADolROS: All 14 systems reviewed are negative except as stated above.PhysicalTemp (24hrs), Av.4 F, Min:98.4 F, Max:98.4 FBlood Pressure: BP: 158/69 Pulse: Heart Rate: 57Temperature: Temp: 98.4 F Respirations: Resp: 16Admission Weight: Weight: 81.2 kg (179 lb 0.2 oz) O2 Saturation: SpO2: 93 %Today's Weight: Weight: 81.2 kg (179 lb 0.2 oz) BMI: Body mass index is 34.96kg/m .No intake or output data in the 24 hours ending 02/07/21 1542Physical Exam General no acute distress Neck No JVD, no bruits Chest Non-tender to palpation Lungs Clear to auscultation, no crackles Heart Normal S1 S2, no murmurs Abdomen Soft, non-tender, non-distended, + bowel sounds Neuro AAOx3, no focal motor or sensory deficit Derm Vascular Pulses palpable and no lower extremity edema. Left arm aVF withpalpable thrill and audible bruit.Assessment and Plan1. Non-ST elevation (NSTEMI) myocardial infarction: Troponin elevated to 16.7with EKG changes.Known CAD status post ABAD which was extended by a vein graft to the distal LADand onto the distal RCA and drug-eluting stent to the circumflex see abovePresently offers no anginal complaints. HD stableAdmit to telemetryStart heparin drip for full anticoagulationContinue Plavix, statin, nitrates and beta-halle. Start ASA.Stat troponin and labsCardiac catheterization today or tomorrow pending troponin level 2. Chronic kidney disease (CKD) stage 3-4: Follows with today 3.7 and BUN 94. She has a left arm aVF with a palpable thrilland good br uit. This has never been used.Monitor closely. Start IVH.Hold diuretics. No CHARBEL or ARB.3. Essential hypertensionBP elevatedContinue coreg. Might need to add hydralazine.4. HyperlipidemiaAtorvastatin 80 mg daily 5. Diabetes mellitusSS insulin and lantusPatient is known to have uncontrolled diabetesMonitor closely and adjust treatment as necessary 6. COPD with asthma/PATRICK/oxygen dependent/pulmonary hypertension moderate tosevereStableOxygen to keep sats >92%She is intolerant of CPAP at home and does not have one 7. Paroxysmal atrial fibrillation: [facility] revealed atrialfibrillation. Since has been in sinus rhythm/SBXarelto on hold. Last dose was yesterday 02/06 at 2000Heparin IV started 8. Presence of bio Magna prosthetic AVR 09/2018-last echo reports it is seatedwell 9. Acute on chronic diastolic CHFCompensated on examHold diuretic BUN and creatinine elevatedDaily weights, accurate JOSSELYN, low-sodium diet 10. History of pericarditis 10/2018 11. Depression/anxietyZoloft 100 mg dailyHydroxyzine daily prn 12. Restless leg syndromeRopirinole 1 mg b.i.d 13. Anemia of chronic diseasePatient is followed by nephrologyMonitor closely-stable 14. DVT prophylaxisHeparin infusion CODE STATUS: Full codeFollows with Dr. Minor as OPSignature: Janet Kathy, NPDate: February 07, 2021Time: 3:42 PM Name Value Range Interpretation Code Description Data Tyra rce(s) Supporting Document(s) ID Date Data Source [id number] 02/07/2021 04:28:40 PM EDT [facility] Name Value Range Interpretation Code Description Data Tyra rce(s) Supporting Document(s) EKG [facility] CEJVSr1vFgMLQxIpg6EtCcYvZDDyQT0abkn6Q9J8eSSiW9KdpIAdz2wbP3GvA7GyAYNcYBPZPD2WwMPi jb2 [file] S2d/PHRxf+V9ub/p49N2o3W8aksw/Z3fszH+bo+5a+OPO6v/F73V/o7+n2U80xJ0nwFkLs2gY2l4Jqe 155LQ7/w7mCISS85Y/pe7Dwh91J+G/Qi6TuEqngq3+/yq3Kseq25s/X9jk+/28GN92bu4TkOS0+N79Bx QN9x/gKE7E2MCvJGJxwkfT3SsUQOb9/++ht1j98TRj fPmawepRTD5g/0EVb3lQFuA630RRS/Tbq3d1j9eX/j/sqfTfdX+vvpd/jfG/7eb18L/R5/FeWFNvctu7 4O0s32H/3ueuU8/irK/cpz/SBBJ4rC3f6D12U2gb/ihdWkOIFCpVgccyS7rxJaOxt8ZM+W43n5Xqz49v P97c6oINfQD0+o7q+7Ai5z09NlxYLMn1/3HFjbTeM1 aitU23MUrO/1RC6hy1fW00Kb/ZWX3V+75cFAmvcl2akzz124gLsd00uYy11mR4K8116ttk+q+6v67lK/ 4Rce8Dx1fq44NO7bM05878+1HvxvrtriibRzWFHAMptS9uTyxmXM/PQr7SWzy1+Agrs0i7G51Tn0d8+/ R12Q0Hbj60r+J/v9f3QeNdUaqd8cA4S2lj9u9PEz58 4Hzwa0/KlEd48OtrClXO+g068267/V/dXz7jy/78r4n9YW8GO/2CQlWjjgkMNvpgnyelX34kA4O6JuDs XnQfnyuvYU/P36jQZ/5M0N1e8iVy/IymtOar9M/xTX/ZX/+LQT9BPwEynk2SVaLD+UF/t436UFq6GFv6 6ucuh+/BVW72kDUnagsvWw0Nvo/Kp7+cxv8/JCed/y 8Ve+jjibye/fC8qn3/7uJH/03F1ez4Nb3mDT25MPT0cDlsh9keUxjYuIzsu7hV/wxMdwHnQc7Y/8Vev3 +W0d/Ut80aoSKmc9eDdC0ObpY7sFz7fEoyahq785Min0kt8wVZalCI5y4Ehs+Y+Pg73ywM5baHHQMkKd 6/3T2e855XG+y99+u+t4/BUw1k0t2iVdk5oYwrx9/Z Q5yunRC/yqOb+apx3nV/5351fD/62avD0r35UApg/xrndVzjt41Ryx69F/M6WN12qmnvYcsA+LAO20aB 1+45N46BnvB/259tyf+/6sFJ7263a+42RuqcsekfC6A+X73u/P5Rsd/LoTR8Obl68C0dgb59oIhMh8nB /x0pAcjxiA/tJZ7zZmJVpNeJ+LghX6Ny/E7iuQqm/9 d9uXt/m0lFyaB6Wxv2ql+ZXKHdcMlE+/08un3+WGa480q5dpt9D6h262Q8/e/wT3eb8Ijwd0U8sPrCOy +muje70t63MqpXD+SoPDfmjtu4Jfl9Uvq/Xn46XQjyqtifYv2rcukXZmQOflPY7pNsO4JPC7WUL9FngB Oe6LsI+4KFekGeC8vMXXJMnAZXRS9VWo0ULgGQjhQF VoRop12en/X+h3od+FBxgOq6+0TO4pslpecxa2iaxk8+y7sh5Qr/++07Z9u0FxVWa0BcG14d+jfWOcsS XiKDU2z8cvwpA1bVv9Pz6zphnYu53DUue7fcPz7gl0bvc/N4TJv52T5YTH+k9sqWhqzeeRG9rZ19/8fe Jx54GLwq4FIouUD6pVohI1AX7xvRK5G/fS07BKArTs hWhswZhFF5JLQ0ebjnoVM0i8KYdvFIvdeSp6Q4RUO4vnfI38oA1YOA1gPPn7L2OGEcQHiByAOkAa04Jp 6A/KGGcsCAc+TN7zGZiFGLrQKthvT+W5oOSWS9KlN2AgwSpaT7QW2RnpoSHdBCE5PuM712V4sQ7sU773 jmZFGc/I2XnV0Pn82Nwi80lN/GPdF//AB/eBBeHAgn Dgg/jFjyM3eGM5jGsI7NMYuduF9rp+YDjl/aBsKJ9+u2+1FaZnbadwFzz8aFWf8IpbO/vs7AllHu/PRACTICE ADVISOR [file] vp analytics/vMzmXqu+T9D9V288Q3Y6Abmz6x1h25+ZKLvlf/8 [file] vYjtWGjkWQCJlQCJVFNwJrENAGmbZzxkbSlpFZyDxV qqXEEQlOPJzv62jAoOjdyDrirt7Lnd32lPbHv06fV1ywBJAadkQAtvWsYHt2ouGZCZFVHKGy7A9Sg4gK OClJXFvPDeBDLXvNDA3oHnfMYRIrgGOVXTtcPgkROFFzkFlsBscaDiRdHRR+4NSkCi4nUnDCtrEFCeYP RuHIRl3lyzxLv1Exu4iyaCmzi4stvCiods+JHqjneb lFSgxlt3elAaw96xMha9NaiOuGmFl9UVno0Ux88/chsA357To02Cdxi1O5fk9U0ysnWHJn00Ooc/R+UV 4thPI912HSM2oIbMlzzxcb8bu4QgsvtErzaf+DFuQK9UbDqdZmZx3Vcegpvqn6ehMP4Vj9EYA9Ml1BLz Wa0dKsD6WrnQkWCpPXS/QViutYjmydiZAJBdXpFdXZ 84IWgyzD94MV/6Lne3oE11ZIyhHudr7lHZDyeLFbKq+Rr1RuOQadh5DAvEo6ox6hwujh68HT+3Rof+52 3+q71BRs6gi36ngt+8+Jb4wS4zzHK+SE80F8BWr74qbM33Wjs0FZqpLr10Z8i/vku0xkLl/yzrM7Cz0t Agustín/IC9I7j8nH3/+emhw7gpvfn0yX+8eXl0/nt+8uL n92vjyc/3dd4/Xt1fL/eTV2w1eA7mr0mLYtvZwdC0s1HK28lf39v5aP19kR/5wcX5/eX2+fH/9+HIJD4 /Y5kKM15uGl/gX42wFK2iIb/iRNjzv7qFr/mt5XL4/f306/8vbu/tvzm+uH3/9tOc0k061drs6Z32yx3 t2o4p5l0r3R99Lmm4aLj55f98+zTBT5lwUz1znrZ3d [file] MDAwMDUyMyAwMDAwMCBuIAowMDAwMDAwNjQxIDAwMD GqJD8mNiRrQRQlNAN1IYNoCEUqCJJasiQVAETdDXIfUQl7AFKyWJVzAROzYDybTZXmIVIbCHV7XWYbZC RaOI4iHdVjJYOhYFSmBNDvXTTcRAMdpdQHFCQrKTAuNNX4ZDFgVYJsPSFgKUwhDXUvOWSvEaq0NCVgHY SsIS1mVaEuNDDmKAL1XBXgKTUfROEtvqPCODBaNZM0 LDp7LYOkSZHoUIYnIWqlEKRvHXQiZlX6AYRyGBWbVS0bOhAoGZYfZUD1DtYtTRSyILWjwlAVHDQsMFCy RGN2SsGdEFAeRMTjMRmyXLQiFDQbKQMjVRV4POW1NFMtVdSdCRjaDPEJNUyJA5PfszNsTtIQD1coTw5v DgApGWSZP8Igu5UgWVZlBWFRXv2+CqH0CRI5gBOuUhv5OLM2IBcpFVLKZw== ID Date Data Source [id number] 02/07/2021 07:05:38 PM EDT [facility] Name Value Range Interpretation Code Description Data Tyra rce(s) Supporting Document(s) WBC 8.0 10*3/uL (4.1-11.0) [facility] RBC 3.58 10*6/uL (4.00-5.40) L [facility] HGB 10.4 g/dL (12.0-16.0) L [facility] HCT 29.8 % (36.0-47.0) L [facility] [place]FORMED [place] [address] [place] [address] MCV 83.3 fL (80.0-95.0) [facility] MCH 29.0 pg (27.0-32.0) [facility] MCHC 34.8 g/dL (32.0-36.0) [facility] RDW 15.2 % (10.5-14.5) H [facility] PLT 133 10*3/uL (150-450) L [facility] MPV 9.1 fL (7.1-10.7) [facility] ID Date Data Source [id number] 02/07/2021 06:19:10 PM EDT [facility] Name Value Range Interpretation Code Description Data Tyra rce(s) Supporting Document(s) CKMB 28.7 ng/mL (0.0-5.0) [facility] ALERTED CRITICAL RESULT TO TO [facility] IN C TOMU (1278) ON 02.07.21 [place] 1817 [place] [id number] CKMB RELATIVE INDEX 8.0 {index_val} (0.0-4.0) H [facility] ID Date Data Source [id number] 02/07/2021 06:08:53 PM EDT [facility] Name Value Range Interpretation Code Description Data Tyra rce(s) Supporting Document(s) TROPONIN I 15.00 ng/mL (<0.05) [facility] [place] Less than 0.05: Myocardial injury unlike lyGreater than or equal to 0.05: Highly suggestive of myocardial injuryCorrelation with rise and/or fall ofserial troponins, clinical symptomsand ECG changes is necessary.ALERTED CRITICAL RESULT TO [facility](1278)[place] [id number] ON 02.07.21 AT [address]07 [place] [id number] ID Date Data Source [id number] 02/07/2021 06:08:53 PM EDT [facility] Name Value Range Interpretation Code Description Data Tyra rce(s) Supporting Document(s) SODIUM 136 mmol/L (136-145) [facility] POTASSIUM 3.4 mmol/L (3.6-5.2) L [facility] CHLORIDE 97 mmol/L (100-108) L [facility] CO2 32 mmol/L (22-31) H [facility] ANION GAP 7 mmol/L (7-16) [facility] UREA NITROGEN 93 mg/dL (7-24) HH [facility] ALERTED CRITICAL RESULT TO [place](1278)[place] [id number] ON 02.07.21 [place] [address] [place] [id number] CREATININE 3.71 mg/dL (0.60-1.00) H [facility] BUN/CREAT RATIO 25.1 RATIO (10.0-20.0) H [facility] GLUCOSE 273 mg/dL (70-99) H [facility] CALCIUM 9.1 mg/dL (8.4-10.2) [facility] GFR 12 ml/min/1.73m2 (>59) L [facility] GFR ( AMER) 15 ml/min/1.73m2 (>59) L [facility] GFR INTERPRETATION [facility] --NORMAL KIDNEY FUNCTION OR MILD DISEASE - GFR >OR= 60CHRONIC KIDNEY DISEASE - GFR 15 - 59RENAL FAILURE - GFR <15 Est. GFR calculation based on the MDRDstudy equation, which assumes a steadystate for creatinine. Est. GFR should notbe used for medication dosing. ID Date Data Source [id number] 02/07/2021 05:57:58 PM EDT [facility] Name Value Range Interpretation Code Description Data Tyra rce(s) Supporting Document(s) NT PRO BNP 77036 pg/mL (0-125) H [facility] ID Date Data Source [id number] 02/07/2021 05:57:58 PM EDT [facility] Name Value Range Interpretation Code Description Data Tyra rce(s) Supporting Document(s) CK 358 U/L (26-192) H [facility] ID Date Data Source [id number] 02/07/2021 05:28:05 PM EDT [facility] Name Value Range Interpretation Code Description Data Tyra rce(s) Supporting Document(s) HEMOGLOBIN A1C @ 7.9 % (4.0-6.0) H [facility] [place] Performed using Siemens [place] immunoassa y.Care must be taken when interpreting XzW7aunmzdbx in patients with a hemoglobin variantor decreased erythrocyte lifespan. Values 5.7 - 6.4% suggest prediabetes.Values >=6.5% are diagnostic for diabetes.REFERENCE: DIABETES CARE 2018: 41(S13-S27).PERFORMED AT [address] [place] [id number] EST AVERAGE GLUCOSE 180 mg/dL [facility] ID Date Data Source [id number] 02/07/2021 05:13:38 PM EDT [facility] Name Value Range Interpretation Code Description Data Tyra rce(s) Supporting Document(s) APTT 25.5 s (22.0-34.3) [facility] [place] Aguilar ID Date Data Source [id number] 02/07/2021 03:21:50 PM EDT [facility] Name Value Range Interpretation Code Description Data Tyra rce(s) Supporting Document(s) POC NOVA GLU 312 mg/dL (70-99) H [facility] [place] [facility] [place] PERFORMED BY [facility] ID Date Data Source [id number] 02/07/2021 01:37:00 AM EDT [facility] Name Value Range Interpretation Code Description Data Tyra rce(s) Supporting Document(s) SARS coronavirus 2 RNA [Presence] in Res piratory specimen by ALLAN with probe detection NEGATIVE [facility] This lab was ordered by [facility] a nd reported by [facility]. ID Date Data Source [id number] 01/23/2021 04:14:55 PM EDT [facility] Name Value Range Interpretation Code Description Data Tyra rce(s) Supporting Document(s) Discharge Summary [facility] EQHDFp2kCdVTFnGm98/DUJdzAZTgn0QcISnrXLa6RUmjGMFdN6NxIJV4dA7cTVN2QTwTJjFvPlVzAGE0 lbm [file] AgICAgICAgICAgICAgICAgICAgICAgICAgICAgICAg ICAgICAgICAgICAgICAgICAgICAgICAgICAgICAgICAgICAgICAgICAgICAgDQogICAgICAgICAgICAg ICAgICAgICAgICAgICAgICAgICAgICAgICAgICAgICAgICAgICAgICAgICAgICAgICAgICAgICAgICAg ICAgICAgICAgICAgICAgICAgICAgICAgICAgDQogIC AgICAgICAgICAgICAgICAgICAgICAgICAgICAgICAgICAgICAgICAgICAgICAgICAgICAgICAgICAgIC AgICAgICAgICAgICAgICAgICAgICAgICAgICAgICAgICAgICAgDQogICAgICAgICAgICAgICAgICAgIC AgICAgICAgICAgICAgICAgICAgICAgICAgICAgICAg ICAgICAgICAgICAgICAgICAgICAgICAgICAgICAgICAgICAgICAgICAgICAgICAgDQogICAgICAgICAg ICAgICAgICAgICAgICAgICAgICAgICAgICAgICAgICAgICAgICAgICAgICAgICAgICAgICAgICAgICAg ICAgICAgICAgICAgICAgICAgICAgICAgICAgICAgDQ ogICAgICAgICAgICAgICAgICAgICAgICAgICAgICAgICAgICAgICAgICAgICAgICAgICAgICAgICAgIC AgICAgICAgICAgICAgICAgICAgICAgICAgICAgICAgICAgICAgICAgDQogICAgICAgICAgICAgICAgIC AgICAgICAgICAgICAgICAgICAgICAgICAgICAgICAg ICAgICAgICAgICAgICAgICAgICAgICAgICAgICAgICAgICAgICAgICAgICAgICAgICAgDQogICAgICAg ICAgICAgICAgICAgICAgICAgICAgICAgICAgICAgICAgICAgICAgICAgICAgICAgICAgICAgICAgICAg ICAgICAgICAgICAgICAgICAgICAgICAgICAgICAgIC AgDQogICAgICAgICAgICAgICAgICAgICAgICAgICAgICAgICAgICAgICAgICAgICAgICAgICAgICAgIC AgICAgICAgICAgICAgICAgICAgICAgICAgICAgICAgICAgICAgICAgICAgDQogICAgICAgICAgICAgIC AgICAgICAgICAgICAgICAgICAgICAgICAgICAgICAg PDFuGVQqJDItBJKkROGpVLGxASUsXGWqDLPtMYIeTFNiEDMhXNRmAKPiHDMcLHLeFJAuDSOhJMv4L4zp DIFaYPWiHQ9aJPi6Ey7+YVzTCoFoCRD6itOzxV5RZJ9py0UqQVttIZQfx5PfPSm6ZL7UISKfRKeyDZ6L ZGxvio4UGBKkNGIlxKULy0oqJsToNKE7EWDkVqukFO 2OPTOoN1ietxSrFHOkUGWZHEjkCXECTLfsBULDSUXiHWFmStVyXnQcDEKpBUYpSFHMKE3XHfEcR4HudG 10CWFKLm2+LSbuyqJxUokDWtVzYSJbv5RwMTg7SA4FLZMfGmdzc2OyWuNkVXZNEUluCA0YPTM6TPRqYZ WhTq9RSWCkI761dnClZS4JZs7QTcDoZT0tbx3YZbLp MSHpQwjCVld3WRzsGA9YqBXkXOdZwHOtqJMcQ2NdG6TamOXasVObfRLWRGa0OPGcRtRTbR8mVIKvJNCQ PPNdgSK9OpDlTlNvZeDmINZ4KoEmZW5hSMevRT0YTXA5MHpkYTVtHECwQ1mNAaDeGPCoTdZxpJpdDT1A LqWeU9YvnxProIFhAUOdCWSFIq6+DQplbmRvYmoNCj VqDQAzo0JpKDj6WE9PWHRsNEkbLZ9TYMGjhN5pTEacIS8IEaMuSCQoBZPDJuTaK08dlFTrCKh4F2CnVn VkZGVkRmlsZXMgPDwvTmFtZXMgWyBdDQogID4+ID4+KZikIF2RSApgydPeCZDxOh1JURVbJKNpAB7cFO PfBBVnN5M6xDmiGOBGWwOwE6tfxptiUP4rOCJeS067 jDkxlfYbCABbAHOvMs6HKTCrQEH0OZKtwEYhGriqCHAPYAtfNZ7DyQXxDRH0aO5hARruUWHjFMUfQ3rC FpDmrDxhIX58bYradfXqdJPqQEz+Tw2GLQ5lp8CmBWr1huEgJSbwXGEmDCofCATpLTBrYMXbRAA4HNW7 EIIMZkMtMSPcVYPbUSvsKPVgNNSdjd6JCNPeMDMcZY agVqVtCAUzTGPyTKyzMCKgSMG3TIB1AIVwTHJhXW1KDaEtWVDcYRAdCDyfLMBeYMPfij6ZNRDeQYQhPR B1YXSmSZCpFGLaUInuESAzZSG1ZPk2OYXwJRSbSK4YSlArBGDvKCyyFOslEZRlGAFqut0PGHTlRDEwSN FtRMWjKNUsOREtFFrdJNGnRLNnVVH2XOVfRNEuSP0V WgJtPAGfBKMdTOekHADkUXCiiv9COUUxXVJlLOPhEVZmRDFpZVLiGDmlFCUoHAC4BdPjQROiKSZgSB1T GrNjHQFoZYxtKoFgUEWgODAcff9WJLFhWOQpNHY1KDVtCBPgGZQnMCoxGIOjTEZ0ZKa1LLAeKTIqMT8Y FmPsVYJoZOsbPTPnZSZlQIFudy0HQOHdDUPlHUZ6SO EfIKMdDPCkRSvgDADnRPAeFGNsBPRoJNAdXR8CZdUwQTWePiM0IcNwKZUyNRBnef3BOTQdZRQkIPG3DY FuJOUdMTOiNIhhRSCaTGBcMsn4GQDrLXCwJL9IJzRrPOOpCyR4VPKeVXUkNVXybd8IGVCeEDSlRhr5PV EyVLYeAMWqXRdfSOVkMDTnKQXzEUFeLXKmAG7YOvOf FOXtWsOkGnZkYSFfSRAuce9QABPpDWPvEZD4OUGcIQLhPBDvAXiqTOXzEMS8KLe6BDMfPOFzDX2JAmQy CNOlXvP3IvjxNUOvMCPizh5GZPAyWSXtZNUwFBAfQDRgTMEmSUlqABGaKYA9WXcxLFAkSWNhMT7QPeXb NNVkWgJ8EfQcHPCiDWIwdn0CXTHxTCZfPsfeRTStVQ HeNBYaVHu4laJinGUwJEz0PP2XD9MlnwVzRsVIXf0Ob084MSQqJPYlMs4OJ5hiYb2bVVIiLKZFVw2BOT p7TBO2YBHpX2O7GrIcWgZbAXF5ZdT3GAEoSsSqUOR9FiI+HMiwRYGnQDJkLQEyWDQuLOSnVxx1AcM4D8 I4XGIvGhBpJu2gKCOGIf8+NNcwmPFgbMxfTVIFDhO7POW5BDmmLDXHIt7B ID Date Data Source [id number] 01/19/2021 01:50:00 PM EDT [facility] Name Value Range Interpretation Code Description Data Tyra rce(s) Supporting Document(s) Consultation [facility] OXGWHe8eOfZJLgZi30/TMNoeCUNka3QmMKwwIFj6PNhkPJJbA2MkBEI8aR0tEXH7DQgOOrZpXgQiBEKk lbm [file] DQogICAgICAgICAgICAgICAgICAgICAgICAgICAgICAgICAgICAgICAgICAgICAgICAgICAgICAgICAg ICAgICAgICAgICAgICAgICAgICAgICAgICAgICAgICAgICAgICAgICAgDQogICAgICAgICAgICAgICAg ICAgICAgICAgICAgICAgICAgICAgICAgICAgICAgIC AgICAgICAgICAgICAgICAgICAgICAgICAgICAgICAgICAgICAgICAgICAgICAgICAgICAgDQogICAgIC AgICAgICAgICAgICAgICAgICAgICAgICAgICAgICAgICAgICAgICAgICAgICAgICAgICAgICAgICAgIC AgICAgICAgICAgICAgICAgICAgICAgICAgICAgICAg ICAgDQogICAgICAgICAgICAgICAgICAgICAgICAgICAgICAgICAgICAgICAgICAgICAgICAgICAgICAg ICAgICAgICAgICAgICAgICAgICAgICAgICAgICAgICAgICAgICAgICAgICAgDQogICAgICAgICAgICAg ICAgICAgICAgICAgICAgICAgICAgICAgICAgICAgIC AgICAgICAgICAgICAgICAgICAgICAgICAgICAgICAgICAgICAgICAgICAgICAgICAgICAgICAgDQogIC AgICAgICAgICAgICAgICAgICAgICAgICAgICAgICAgICAgICAgICAgICAgICAgICAgICAgICAgICAgIC AgICAgICAgICAgICAgICAgICAgICAgICAgICAgICAg ICAgICAgDQogICAgICAgICAgICAgICAgICAgICAgICAgICAgICAgICAgICAgICAgICAgICAgICAgICAg ICAgICAgICAgICAgICAgICAgICAgICAgICAgICAgICAgICAgICAgICAgICAgICAgDQogICAgICAgICAg ICAgICAgICAgICAgICAgICAgICAgICAgICAgICAgIC AgICAgICAgICAgICAgICAgICAgICAgICAgICAgICAgICAgICAgICAgICAgICAgICAgICAgICAgICAgDQ ogICAgICAgICAgICAgICAgICAgICAgICAgICAgICAgICAgICAgICAgICAgICAgICAgICAgICAgICAgIC AgICAgICAgICAgICAgICAgICAgICAgICAgICAgICAg ICAgICAgICAgDQogICAgICAgICAgICAgICAgICAgICAgICAgICAgICAgICAgICAgICAgICAgICAgICAg RXJwAACdRDMoRGHnRWOvKPOiKBEvJVZxRQQeCORpHWXkZKImSMCvYJWiVBQxKHJyNXYlPXc5S1rzIJTb JCZzCI3yJZx4Kf3+UZlYKtJoKBH4yuSqrE3KVE3rv5 GyAEusAKNtc5OpMCj3DE5OICMgFWfkJX5UEWljsi9DXURiTWIllUMTq4wcIjOvWQS3VAMdCjbfSA9UPF DoJ3yqdmWkXWTjPCUHYIzaCZGPMRcuCWZTAOMpAZVzKxMlDsGnPPFeFAByMCDPMK1ZKsZuQ3FinQ60EV YNCj4+WNkvbaAuRhrPVsM7IZYyr0NkWIz3MM7OCCSp Uoetm3CwCcpgYUZHEBweDM6SIXY7PMB2NKIdNq6UHQEgX797fuZeWP5JLy5OExKrHL3kbk6XXfeoWTGs SelELrk3UIueIS4OxPEgFJoRf83zwUe3oiIzkVBNzFHoXCCfQIesRHIkLTCJUAUjfTK7JzO7UkRfEqJg DQK5VIwzRV8vKZquFL8OILT0LWrpXMPgJLPuP5vGVb DbCVSyHsSiqPerWT4ECjIaZ6JiqmKjwZZwMYKjZAERAu6+DVsvvrCaSlsIQjZaJNBhk3QoPAn6DO2OHD SxYGpyRC4CSNJqgJ4qDHxiZO0PZdNsHsIwKFJTRmBwB91ztOCrGUt1U5PwEwXfIBZoUagkXFIgLIfaOe FtZXMgWyBdDQogID4+ID4+GEjbYI8WELgiqbVrPYTm Fu3HTVYqDXCvZS0pTTJmFUYdC7M2qYodVUUUSbBnL6kxnqvtZK7qJIScG297uZlkkzVpUEX7XUPrWl3U JQMoKDV5XSJktBDoPuyjMHOHUZgrAG6HhBUpFPL2jE1nKBmvONMwQXKyV4xABxJlkMjqEL10fFllpjPe bCBdDQo+Jp1MFQ9ol1HrZWy9wuXuAZhvESOiIHryIG FzFUUeZYZsHVB0MDV6YZOFDoVlQXFgOJHcUJsqOYMjBYTbxq0CJUPiEXZtSlu0WZCjNVBoRKJfWUwdGA IoOKX8NfW8VLRgAEHtTI0CNjGlKXMkXTEeRHevVMLxMQReck6FAJAuUBQdUjo7XdMqWTZtXXFeIXojBB NpODYaHUZjXPRtCPHsBO4ARoXbSXPgFAT4XsltEISc BQMzro1DVLVsQTDzIyx5QCSnJKNfBFNpGXwaXSKaYGL6HQs1SAKrWKQdUH5MZqTvOOYbZXb6MCSlFMMt JEBmcu2IZMKgIVEjEoK5NIFtPHSvFEMzXDbuFUPdWDMvJUJ7GUAbQDQgAW0THePaSSPwAKH9ZtUfESMj TGYjgx3EQEPaUUEeApI6SSAjZNMpYQGkXFqeFLEjTL S6LmCwSZLfPNHmWV0UGiOfUBJbOMz3HERxBBScIJCtzk7IFDNvKEEoSAq6YnXcUEJgBWCsFPglEYJcLB X1ABriCRXbBJHkWO4QCaDcRRFxOKroWAMqKYErXUBcad9NUNGcRVZbKHVgVNIuDBIlFZIeXMgjJDQhHF WzDrA9DCPiVZAmPO4QRdPyQPPlCcR6KYHjMQLbEYBv uu1LQLWqHCEoUZJ9YQNyCHIcKQAwJTipEVEoRGTtZsOrJCGqXLAbKN4YXoBwVSWsMmN3XXGuOWPdPTSj kl9WMNRwNKGoHdssMNNeTPRyUXBxIGotROMjFFGlLGI2PNAiIZKjDA2VGuDsXBCqHyRvGHOzIOUuEXGn ju2SGINrEPDjQKX8FnGfGFHuRGDzHIxgTEHdAUN1Lv DoTMQsLNIzZS3GWxZtBELgFiP6AJSnTJCfKJPxxp3LUPOpCYJvVXceKJZkDEQlGQZtISfxMYUoJEN8Cg ZyWJAsUGJtGY3PFeKcMIOyLzL5RcNoZGKfTOIzgj1VWLYhTBDjNymdCLGyIEGhUCHtHQkoVKIjDBH3QY T3WKNyWGZdNL8KDnFvGZJbNcftDKHpDCEzHLKdeu9R SZGoWMFwBTe9RrKkLSQiILLoUApoQRTpHMM2IZG3JHTgFRPzQN6RBtYmGYGaBij8XXBdKVWuOMDkvw9N nBYoeOqrmk9DCDhWNm5UaGkaJLJrCEvjRm7gpGL5VIWsIUNFTq9FawQqOPWhPMPRFLvlDHFySSKwH4Ip PYN2Zns1ALQ3W7YeNDPjIUX2KeC1XiJmBoA1KeA3OO M3GAOkYCHqLZX8MKpqDJDfByEhCugjEDjxXUIdCBC+AF9oCCu+Wr9Rj7CwziR1lzRdANtnYNVxIJ4FZG NUK8UYSj== ID Date Data Source [id number] 01/19/2021 01:10:15 PM EDT [facility] Name Value Range Interpretation Code Description Data Tyra rce(s) Supporting Document(s) Glucose [Mass/volume] in Capillary blood by Glucometer 133 mg/dL 70- 140 [facility] ID Date Data Source [id number] 01/19/2021 10:13:00 AM EDT [facility] Name Value Range Interpretation Code Description Data Tyra rce(s) Supporting Document(s) SARS-CoV-2 RNA (specific gene not known or reporting a single result based on a combination of tests 2018 nCoV Real-Time RT-PCR: NEGATIVE [facility] This lab was ordered by [facility] and reported by [facility] [place] [facility] ID Date Data Source [id number] 01/22/2021 09:02:49 AM EDT [facility] Name Value Range Interpretation Code Description Data Tyra rce(s) Supporting Document(s) Specimen source [Identifier] of Unspecified specimen [facility] SARS-CoV-2 RNA (specific gene not known or reporting a single result based on a combination of tests) 2018 nCoV Real-Time RT-PCR: NEGATIVE [facility] Assay Performed [facility] Negative results do not preclude SARS-Co V-2 infection and should not be used as the sole basis for patient management decisions. Patients first test for [facility] Patient employed in healthcare setting [facility] Patient has symptoms related to [facility] When did you start to experience these symptoms [Date and time] [Phen X] [facility] Patient was hospitalized because of this condition [facility] patient was admitted to ICU for condition [facility] Patient resides in a congregate care setting [facility] status [facility] ID Date Data Source [id number] 01/19/2021 09:15:28 AM [facility] Name Value Range Interpretation Code Description Data Tyra rce(s) Supporting Document(s) Glucose [Mass/volume] in Capillary blood by Glucometer 196 mg/dL 70- 140 H [facility] ID Date Data Source [id number] 01/19/2021 06:39:03 AM [facility] Name Value Range Interpretation Code Description Data Tyra rce(s) Supporting Document(s) Leukocytes [#/volume] in Blood by Automated count 10.1 10*3/uL 4-10 H [facility] Erythrocytes [#/volume] in Blood by Automated count 3.51 10*6/uL 4.1- 5.3 L [facility] Hemoglobin [Mass/volume] in Blood 10.0 g/dL 11.5-15.5 [facility] Hematocrit [Volume Fraction] of Blood by Automated count 29.0 % 3 6-45 L [facility] Erythrocyte mean corpuscular volume [Entitic volume] by Auto mated count 82.6 fL 80-96 [facility] Erythrocyte mean corpuscular hemoglobin [Entitic mass] by Automated count 28.4 pg 27-33 [facility] Erythrocyte mean corpuscular hemoglobin concentration [Mass/volume] by Automated count 34.4 g/dL [facility].0[facility] [Ratio] by Automated count 14.7 % 11.5-14.5 H [facility] Platelets [#/volume] in Blood by Automated count 227 10*3/uL 150-400 [facility] Differential cell count method - Blood [facility] Neutrophils/100 leukocytes in Blood by Automated count 76 % [facility] Lymphocytes/100 leukocytes in Blood by Automated count 12 % [facility] Monocytes/100 leukocytes in Blood by Automated count 8 % [facility] Eosinophils/100 leukocytes in Blood by Automated count 3 % [facility] Basophils/100 leukocytes in Blood by Automated count 1 % [facility] Neutrophils [#/volume] in Blood by Automated count 7.79 10*3/uL 1.8-7 .0 H [facility] Lymphocytes [#/volume] in Blood by Automated count 1.23 10*3/uL 1.2-4 .0 [facility] Monocytes [#/volume] in Blood by Automated count 0.76 10*3/uL 0-0.8 [facility] Eosinophils [#/volume] in Blood by Automated count 0.31 10*3/uL 0-0.5 [facility] Basophils [#/volume] in Blood by Automated count 0.06 10*3/uL 0-0.2 [facility] Nucleated erythrocytes/100 leukocytes [Ratio] in Blood by Automated count 0 /100{WBCs} 0-0 [facility] ID Date Data Source [id number] 01/19/2021 06:53:53 AM EDT [facility] Name Value Range Interpretation Code Description Data Tyra rce(s) Supporting Document(s) Bicarbonate [Moles/volume] in Serum 26 mmol/L 22-29 [facility] Chloride [Moles/volume] in Serum or Plasma 95 mmol/L 98-107 L [facility] Creatinine [Mass/volume] in Serum or Plasma 2.17 mg/dL 0.50-0.90 [facility] Glucose [Mass/volume] in Serum or Plasma 227 mg/dL 70-140 [facility] Potassium [Moles/volume] in Serum or Plasma 3.3 mmol/L 3.4-5.1 [facility] Sodium [Moles/volume] in Serum or Plasma 135 mmol/L 136-145 L [facility] Urea nitrogen [Mass/volume] in Serum or Plasma 58 mg/dL 8-23 [facility] Anion gap 3 in Serum or Plasma 14 mmol/L 8-15 [facility] Osmolality of Serum or Plasma by calculation 303 mosm/kg 275-300 H [facility] Creatinine/Urea nitrogen [Mass Ratio] in Serum or Plasma 27 [facility] Calcium [Mass/volume] in Serum or Plasma 9.5 mg/dL 8.8-10.2 [facility] Glomerular filtration rate/1.73 sq M pre dicted among non-blacks [Volume Rate/Area] in Serum or Plasma by Creatinine-based formula (MDRD) 22 mL/min/1.73m2 >60 L [facility] Glomerular filtration rate/1.73 sq M pre dicted among blacks [Volume Rate/Area] in Serum or Plasma by Creatinine-based formula (MDRD) 26 mL/min/1.73m2 >60 L [facility] ID Date Data Source [id number] 01/18/2021 10:34:50 PM [facility] Name Value Range Interpretation Code Description Data Tyra rce(s) Supporting Document(s) Glucose [Mass/volume] in Capillary blood by Glucometer 308 mg/dL 70- 140 H [facility] ID Date Data Source [id number] 01/18/2021 05:37:19 PM [facility] Value Range Interpretation Code Description Data Tyra rce(s) Supporting Document(s) Glucose [Mass/volume] in Capillary blood by Glucometer 157 mg/dL 70- 140 H [facility] ID Date Data Source [id number] 01/18/2021 12:33:20 PM [facility] Value Range Interpretation Code Description Data Tyra rce(s) Supporting Document(s) Glucose [Mass/volume] in Capillary blood by Glucometer 229 mg/dL 70- 140 H [facility] ID Date Data Source [id number] 01/18/2021 09:10:33 AM [facility] Value Range Interpretation Code Description Data Tyra rce(s) Supporting Document(s) [facility] NCHTBy8vHgTGMhRq35/VXZgyLSVwx9BhKUznXKx6TBxlTKEjH2KuOKT1iQ5jJTV7SJjNTpHqTnPjRZOj m [file] 2k8/0FH6h/NZMqRgaOfDFX41GCLlvxzDhavS8wa8aUFXL1J1n0oIx/Wp+h79Q+R2ttYunTa/ckP9g/[employer] WORK[employer] [file] ICAgICAgICAgICAgICAgICAgICAgICAgICAgICAgIC AgICAgICAgICAgICAgICAgICAgICAgICAgICAgICAgICAgDQogICAgICAgICAgICAgICAgICAgICAgIC AgICAgICAgICAgICAgICAgICAgICAgICAgICAgICAgICAgICAgICAgICAgICAgICAgICAgICAgICAgIC AgICAgICAgICAgICAgICAgDQogICAgICAgICAgICAg ICAgICAgICAgICAgICAgICAgICAgICAgICAgICAgICAgICAgICAgICAgICAgICAgICAgICAgICAgICAg ICAgICAgICAgICAgICAgICAgICAgICAgICAgDQogICAgICAgICAgICAgICAgICAgICAgICAgICAgICAg ICAgICAgICAgICAgICAgICAgICAgICAgICAgICAgIC AgICAgICAgICAgICAgICAgICAgICAgICAgICAgICAgICAgICAgDQogICAgICAgICAgICAgICAgICAgIC AgICAgICAgICAgICAgICAgICAgICAgICAgICAgICAgICAgICAgICAgICAgICAgICAgICAgICAgICAgIC AgICAgICAgICAgICAgICAgICAgDQogICAgICAgICAg ICAgICAgICAgICAgICAgICAgICAgICAgICAgICAgICAgICAgICAgICAgICAgICAgICAgICAgICAgICAg ICAgICAgICAgICAgICAgICAgICAgICAgICAgICAgDQogICAgICAgICAgICAgICAgICAgICAgICAgICAg ICAgICAgICAgICAgICAgICAgICAgICAgICAgICAgIC AgICAgICAgICAgICAgICAgICAgICAgICAgICAgICAgICAgICAgICAgDQogICAgICAgICAgICAgICAgIC AgICAgICAgICAgICAgICAgICAgICAgICAgICAgICAgICAgICAgICAgICAgICAgICAgICAgICAgICAgIC AgICAgICAgICAgICAgICAgICAgICAgDQogICAgICAg ICAgICAgICAgICAgICAgICAgICAgICAgICAgICAgICAgICAgICAgICAgICAgICAgICAgICAgICAgICAg ICAgICAgICAgICAgICAgICAgICAgICAgICAgICAgICAgDQogICAgICAgICAgICAgICAgICAgICAgICAg ICAgICAgICAgICAgICAgICAgICAgICAgICAgICAgIC EaBVXzYNAqKMYfTSCtQRCfEDFdGLGdHFWtUVMpVQNbUZMcQXEhPEMuIYVfGSm5Y2ddCIYaBMBfYY1wML d3Jz8+UEiUHpCkKGA2luTgbW8XAA4js1XlXTjrHDJvn8EsAXf9FI7TFPPmOLbnIJ7NRSmxxt1SGUBdCD FxtXQQt1iuReBoWHT9BUXeZbxdGA3HOJTcF4ewnrAi FPFdBHRQMNscBLVXNZinRRCKGWXqAEUqGdSoPwCnHFCxUMByIQSUYHE3WBSxQdIgHEosLK8Qr4XxdKB6 DQo+Tq3WYI1pu8FyCSn7EmCjKW5jie0TIUgGXzDtP6FcikS2DMChHZWnYi6COMSySXKroFB6DiGzOFTS HtZcR6SjsH22AISSWh0+DQplbmRvYmoNCjQzIDAgb2 ZgDIb1FI3ZCLLfDPt2vEOjI28bi5EznFRaFrhuHeFrTUXZS7kweuijCFQDOBRjzOM0PtL3VnCqHbKfXT Z3RPadGD3xEYmwHN2MATL7CAssQRQqYWVdR0mIJtRoKNMyLbXkjKbvMD7HIfThN3TswpRvhFV4KcDlTA INCj4+COcplxPzQmuEBxV3WGSxh4KkNAc5JU0GBGCu GRymVO8PWQLlmN4sDKvxJR5ELxK3IKLxYVXYUwQiN80utNRhRRy0Z5KmDhLyTQHlModdCMMgSIbhFjOs ZXMgWyBdDQogID4+ID4+CSlgYX6ZFMfakiPlVBNzQf5CGTPdVEFaWN8vLRUvMYHqX7J5iSphENOKJnVa P6miiiujVV1sWMVbY001xLchydRzTXKnGORqPn4EWE JfLEE8BZOdpOXwMXGrBOIWUCyvZD9MfOErGQH4tP4cKQofXZJpZMFzM8lPEnKygVyhNA60uLhfubRarU BdDQo+Bb5DZO3mt5JmKQe2qwPcNHalFGG1YGqfZEQkQDQvJQTlYOC0QRJ1AKXRXhSwXMXyXFElRXcbHC GzIZYylp9BQPRnEMH4YYNvVNPrIAVhIYIjENdrAXQl SRC4XEzvGFOzNMNsOF6HGdBcCDWrOXGdLIkaHZYpVNUfoy1YQPTvFRSvJgc0YrVeJASbIHMnXNlbGVJh STJ8GDHnKHAzDIAfKT8SAjBiPSTkBJH0PqUsBXFkPWGjmq2SHFXoURBpBbcjBiJcZGTfRDObIZxhZFAc SIFqQnU8KHEyRDXwEN3OVrDxDGZyIDD1VHxtWJGyQE Pbtz1FFUMzCODyJbZ2SFLfYKWsLCChCOslKMDoRQHtRNqwXAPdFPUsVG6OPnVeZCEsCVJ7WPXuKGKkTC Dtst2KANTcUPSmKfU1OIVyEMQhXNHnPJhdKJAoNEMwSdVeJUQvVQKfKV3JLpIsFWBpSsF5RrdtSCWfTX Ymbi4NTUSaIBPrPfLjLBVsGGHyHZOgSTcgTEWmMRFc UxOuMHEiQYEvLB4APoLbYBDgQcRcZMQxHWNhCDDnes1LRKLfRNOeVZW9ODBrBCYzEJEqMGibYOAeGEP3 ZHxnAOScRJTzCC3JVyCjQKQtUyT0RqHlDPXcZJMkhp7ORZGlHKTyZOhvSyLgMJMpBVTiBTnwWAXmAYY0 HIGlNQPgUXJtDX5HWvOaJTIbHuL5NWDzBVPmCRQppr 1OHUZqSOBvLiZ6NzRjECYkAFWdGMlsEMRvGRE1ViGvYDEaUIEmBO9CBaJaKXMnRqyrMOrnAQEjKFOwms 5EKWVxNRTdSLYoIUDsCLYcNGNjMFzdKIKuMEC5PrO3QXWxLVBgQQ4RLwMiFGDhBIMqDVvsVMXjNFDevz 4TXYDvVKO1CVQ0RuKyKCNuAARbZKvrAWSsPNPuYGkn ERDnYMTwLQ2ATiRySXOvHEL1TcNvHAQkYZPewn8OPUVvOEN6YBr3HoJbRAKyHZNhFJufGPWrOABiZhao XTUyXFXzKX0JCbSbHFHqPJO7SNLlAXQeGHEdqi7BAUSyZOW6AejbIzHjGDYhCNJbFJlsMFYzFHM5BVUy NFZxDZEsQJ2CAmWjAERuXIEhZOViEGIpIKJnlc0JYC CuIOL2GQE1PNFyWHQpFJEdSDqkCPHnLAC3YGB5ONBvGBCtFA3HQrTrANMrXKZuBYMjUVKcVYNhcw3PAV OoEWX2IdE0JDIlXEZgZGXmBQf9rdGaeQYbMSh0BH4JM6LmvlGsJIKQTi1Kz907ZWK5XFRvRu5BY7plCv 9tFTKzKZXAJo1HISm0PZoxChP1KLDkZMM3VTE6QgSx NDXfAZL2OJHwYSG5JWZ+OOnyRAA9ELJ7TSJjHJc4FOIiDAIwRqUhKJPmPeLtRrm8Kh6xAGUSSa9+DQpz pNCutLwcYWMVEoF7SWy7FFgeRGNVVg0C ID Date Data Source [id number] 01/18/2021 08:50:30 AM EDT [facility] Value Range Interpretation Code Description Data Tyra rce(s) Supporting Document(s) Glucose [Mass/volume] in Capillary blood by Glucometer 205 mg/dL 70- 140 H [facility] ID Date Data Source [id number] 01/18/2021 04:56:26 AM EDT [facility] Value Range Interpretation Code Description Data Tyra rce(s) Supporting Document(s) Parathyrin.intact [Mass/volume] in Serum or Plasma 117 pg/mL 15-65 H [facility] ID Date Data Source [id number] 01/18/2021 04:30:30 AM EDT [facility] Value Range Interpretation Code Description Data Tyra rce(s) Supporting Document(s) Leukocytes [#/volume] in Blood by Automated count 9.8 10*3/uL 4-10 [facility] Erythrocytes [#/volume] in Blood by Automated count 3.19 10*6/uL 4.1- 5.3 L [facility] Hemoglobin [Mass/volume] in Blood 9.0 g/dL 11.5-15.5 L [facility] Hematocrit [Volume Fraction] of Blood by Automated count 26.7 % 3 6-45 L [facility] Erythrocyte mean corpuscular volume [Entitic volume] by Auto mated count 83.5 fL 80-96 [facility] Erythrocyte mean corpuscular hemoglobin [Entitic mass] by Automated count 28.3 pg 27-33 [facility] Erythrocyte mean corpuscular hemoglobin concentration [Mass/volume] by Automated count 33.9 g/dL 32.0-36.0 [facility] width [Ratio] by Automated count 14.7 % 11.5-14.5 H [facility] Platelets [#/volume] in Blood by Automated count 185 10*3/uL 150-400 [facility] Differential cell count method - Blood [facility] Neutrophils/100 leukocytes in Blood by Automated count 77 % [facility] Lymphocytes/100 leukocytes in Blood by Automated count 13 % [facility] Monocytes/100 leukocytes in Blood by Automated count 6 % [facility] Eosinophils/100 leukocytes in Blood by Automated count 3 % [facility] Basophils/100 leukocytes in Blood by Automated count 1 % [facility] Neutrophils [#/volume] in Blood by Automated count 7.60 10*3/uL 1.8-7 .0 H [facility] Lymphocytes [#/volume] in Blood by Automated count 1.23 10*3/uL 1.2-4 .0 [facility] Monocytes [#/volume] in Blood by Automated count 0.54 10*3/uL 0-0.8 [facility] Eosinophils [#/volume] in Blood by Automated count 0.32 10*3/uL 0-0.5 [facility] Basophils [#/volume] in Blood by Automated count 0.08 10*3/uL 0-0.2 [facility] Nucleated erythrocytes/100 leukocytes [Ratio] in Blood by Automated count 0 /100{WBCs} 0-0 [facility] ID Date Data Source [id number] 01/18/2021 04:37:52 AM EDT [facility] Name Value Range Interpretation Code Description Data Tyra rce(s) Supporting Document(s) Bicarbonate [Moles/volume] in Serum 23 mmol/L 22-29 [facility] Chloride [Moles/volume] in Serum or Plasma 99 mmol/L 98-107 [facility] Creatinine [Mass/volume] in Serum or Plasma 2.33 mg/dL 0.50-0.90 H [facility] Glucose [Mass/volume] in Serum or Plasma 237 mg/dL 70-140 H [facility] Potassium [Moles/volume] in Serum or Plasma 3.5 mmol/L 3.4-5.1 [facility] Sodium [Moles/volume] in Serum or Plasma 132 mmol/L 136-145 L [facility] Urea nitrogen [Mass/volume] in Serum or Plasma 67 mg/dL 8-23 H [facility] Anion gap 3 in Serum or Plasma 9 mmol/L 8-15 [facility] Osmolality of Serum or Plasma by calculation 301 mosm/kg 275-300 H [facility] Creatinine/Urea nitrogen [Mass Ratio] in Serum or Plasma 29 [facility] Calcium [Mass/volume] in Serum or Plasma 9.0 mg/dL 8.8-10.2 [facility] Glomerular filtration rate/1.73 sq M pre dicted among non-blacks [Volume Rate/Area] in Serum or Plasma by Creatinine-based formula (MDRD) 20 mL/min/1.73m2 >60 L [facility] Glomerular filtration rate/1.73 sq M pre dicted among blacks [Volume Rate/Area] in Serum or Plasma by Creatinine-based formula (MDRD) 24 mL/min/1.73m2 >60 L [facility] ID Date Data Source [id number] 01/17/2021 09:29:12 PM [facility] Name Value Range Interpretation Code Description Data Tyra rce(s) Supporting Document(s) Glucose [Mass/volume] in Capillary blood by Glucometer 284 mg/dL 70- 140 H [facility] ID Date Data Source [id number] 01/17/2021 09:31:36 PM [facility] Value Range Interpretation Code Description Data Tyra rce(s) Supporting Document(s) Leukocytes [#/volume] in Blood by Automated count 9.8 10*3/uL 4-10 [facility] Erythrocytes [#/volume] in Blood by Automated count 3.11 10*6/uL 4.1- 5.3 L [facility] Hemoglobin [Mass/volume] in Blood 9.0 g/dL 11.5-15.5 [facility] Hematocrit [Volume Fraction] of Blood by Automated count 25.9 % 3 6-45 L [facility] Erythrocyte mean corpuscular volume [Entitic volume] by Auto mated count 83.1 fL 80-96 [facility] Erythrocyte mean corpuscular hemoglobin [Entitic mass] by Automated count 28.8 pg 27-33 [facility] Erythrocyte mean corpuscular hemoglobin concentration [Mass/volume] by Automated count 34.7 g/dL 32.0-36.0 [facility] width [Ratio] by Automated count 14.5 % 11.5-14.5 [facility] Platelets [#/volume] in Blood by Automated count 169 10*3/uL 150-400 [facility] ID Date Data Source [id number] 01/17/2021 05:32:09 PM [facility] Value Range Interpretation Code Description Data Tyra rce(s) Supporting Document(s) Glucose [Mass/volume] in Capillary blood by Glucometer 286 mg/dL 70- 140 [facility] ID Date Data Source [id number] 01/17/2021 12:21:19 PM [facility] Value Range Interpretation Code Description Data Tyra rce(s) Supporting Document(s) Glucose [Mass/volume] in Capillary blood by Glucometer 314 mg/dL 70- 140 [facility] ID Date Data Source [id number] 01/17/2021 08:46:18 AM [facility] Value Range Interpretation Code Description Data Tyra rce(s) Supporting Document(s) Glucose [Mass/volume] in Capillary blood by Glucometer 311 mg/dL 70- 140 [facility] ID Date Data Source [id number] 01/17/2021 07:29:51 AM [facility] Value Range Interpretation Code Description Data Tyra rce(s) Supporting Document(s) Troponin T.cardiac [Mass/volume] in Serum or Plasma 0.25 ng/mL <0.01 [facility] No Significant Change Since Last Result Called ID Date Data Source [id number] 01/17/2021 07:55:13 AM EDT [facility] Name Value Range Interpretation Code Description Data Tyra rce(s) Supporting Document(s) Bicarbonate [Moles/volume] in Serum 21 mmol/L 22-29 L [facility] Chloride [Moles/volume] in Serum or Plasma 96 mmol/L 98-107 L [facility] Creatinine [Mass/volume] in Serum or Plasma 2.62 mg/dL 0.50-0.90 H [facility] Glucose [Mass/volume] in Serum or Plasma 330 mg/dL 70-140 H [facility] Potassium [Moles/volume] in Serum or Plasma 3.7 mmol/L 3.4-5.1 [facility] Sodium [Moles/volume] in Serum or Plasma 131 mmol/L 136-145 L [facility] Urea nitrogen [Mass/volume] in Serum or Plasma 69 mg/dL 8-23 H [facility] Anion gap 3 in Serum or Plasma 14 mmol/L 8-15 [facility] Osmolality of Serum or Plasma by calculation 305 mosm/kg 275-300 H [facility] Creatinine/Urea nitrogen [Mass Ratio] in Serum or Plasma 26 [facility] Calcium [Mass/volume] in Serum or Plasma 8.4 mg/dL 8.8-10.2 L [facility] Glomerular filtration rate/1.73 sq M pre dicted among non-blacks [Volume Rate/Area] in Serum or Plasma by Creatinine-based formula (MDRD) 18 mL/min/1.73m2 >60 L [facility] Glomerular filtration rate/1.73 sq M pre dicted among blacks [Volume Rate/Area] in Serum or Plasma by Creatinine-based formula (MDRD) 21 mL/min/1.73m2 >60 [facility] ID Date Data Source [id number] 01/17/2021 07:58:27 AM EDT [facility] Value Range Interpretation Code Description Data Tyra rce(s) Supporting Document(s) Leukocytes [#/volume] in Blood by Automated count 9.0 10*3/uL 4-10 [facility] Erythrocytes [#/volume] in Blood by Automated count 2.57 10*6/uL 4.1- 5.3 [facility] Hemoglobin [Mass/volume] in Blood 7.4 g/dL 11.5-15.5 [facility] Hematocrit [Volume Fraction] of Blood by Automated count 21.8 % 3 6-45 [facility] Erythrocyte mean corpuscular volume [Entitic volume] by Auto mated count 84.8 fL 80-96 [facility] Erythrocyte mean corpuscular hemoglobin [Entitic mass] by Automated count 28.7 pg 27-33 [facility] Erythrocyte mean corpuscular hemoglobin concentration [Mass/volume] by Automated count 33.8 g/dL 32.0-36.0 [facility] distribution width [Ratio] by Automated count 13.9 % 11.5-14.5 [facility] Platelets [#/volume] in Blood by Automated count 160 10*3/uL 150-400 [facility] Differential cell count method - Blood [facility] Neutrophils/100 leukocytes in Blood by Automated count 79 % [facility] Lymphocytes/100 leukocytes in Blood by Automated count 16 % [facility] Monocytes/100 leukocytes in Blood by Automated count 3 % [facility] Eosinophils/100 leukocytes in Blood by Automated count 1 % [facility] Neutrophils [#/volume] in Blood by Automated count 7.09 10*3/uL 1.8-7 .0 H [facility] Lymphocytes [#/volume] in Blood by Automated count 1.47 10*3/uL 1.2-4 .0 [facility] Monocytes [#/volume] in Blood by Automated count 0.26 10*3/uL 0-0.8 [facility] Eosinophils [#/volume] in Blood by Automated count 0.09 10*3/uL 0-0.5 [facility] Metamyelocytes/100 leukocytes in Blood by Manual count 1 % [facility] Metamyelocytes [#/volume] in Blood by Manual count 0.09 10*3/uL 0-0 [facility] ID Date Data Source [id number] 01/17/2021 03:09:09 AM [facility] Name Value Range Interpretation Code Description Data Tyra rce(s) Supporting Document(s) Troponin T.cardiac [Mass/volume] in Serum or Plasma 0.25 ng/mL <0.01 [facility] No Significant Change since last result called ID Date Data Source [id number] 01/17/2021 02:49:17 AM [facility] Name Value Range Interpretation Code Description Data Tyra rce(s) Supporting Document(s) Leukocytes [#/volume] in Blood by Automated count 9.4 10*3/uL 4-10 [facility] Erythrocytes [#/volume] in Blood by Automated count 2.60 10*6/uL 4.1- 5.3 L [facility] Hemoglobin [Mass/volume] in Blood 7.5 g/dL 11.5-15.5 L [facility] Hematocrit [Volume Fraction] of Blood by Automated count 21.9 % 3 6-45 L [facility] Erythrocyte mean corpuscular volume [Entitic volume] by Auto mated count 84.2 fL 80-96 [facility] Erythrocyte mean corpuscular hemoglobin [Entitic mass] by Automated count 28.8 pg 27-33 [facility] Erythrocyte mean corpuscular hemoglobin concentration [Mass/volume] [facility] 34.2 g/[facility] [Ratio] by Automated count 13.9 % 11.5-14.5 [facility] Platelets [#/volume] in Blood by Automated count 167 10*3/uL 150-400 [facility] Differential cell count method - Blood [facility] Neutrophils/100 leukocytes in Blood by Automated count 72 % [facility] Lymphocytes/100 leukocytes in Blood by Automated count 16 % [facility] Monocytes/100 leukocytes in Blood by Automated count 7 % [facility] Eosinophils/100 leukocytes in Blood by Automated count 4 % [facility] Basophils/100 leukocytes in Blood by Automated count 1 % [facility] [facility] Neutrophils [#/volume] in Blood by Automated count 6.84 10*3/uL 1.8-7 .0 [facility] Lymphocytes [#/volume] in Blood by Automated count 1.46 10*3/uL 1.2-4 .0 [facility] Monocytes [#/volume] in Blood by Automated count 0.66 10*3/uL 0-0.8 [facility] Eosinophils [#/volume] in Blood by Automated count 0.35 10*3/uL 0-0.5 [facility] Basophils [#/volume] in Blood by Automated count 0.09 10*3/uL 0-0.2 [facility] Nucleated erythrocytes/100 leukocytes [Ratio] in Blood by Automated count 0 /100{WBCs} 0-0 [facility] ID Date Data Source [id number] 01/16/2021 08:25:58 PM EDT [facility] Hospital Name Value Range Interpretation Code Description Data Tyra rce(s) Supporting Document(s) Glucose [Mass/volume] in Capillary blood by Glucometer 299 mg/dL 70- 140 H [facility] ID Date Data Source [id number] 01/16/2021 08:44:17 PM EDT [facility] Name Value Range Interpretation Code Description Data Tyra rce(s) Supporting Document(s) Troponin T.cardiac [Mass/volume] in Serum or Plasma 0.25 ng/mL <0.01 [facility] No Significant Change since last result called ID Date Data Source [id number] 01/16/2021 05:39:45 PM EDT [facility] Value Range Interpretation Code Description Data Tyra rce(s) Supporting Document(s) Glucose [Mass/volume] in Capillary blood by Glucometer 331 mg/dL 70- 140 [facility] ID Date Data Source [id number] 01/16/2021 03:22:23 PM EDT [facility] Value Range Interpretation Code Description Data Tyra rce(s) Supporting Document(s) ED Provider Note [facility] SAWLCs5rBcPSHmPh75/HKZeeWLBuy1CbSOnbHTh2ENruIEFqY6WfTXO2jC1gFRL6CGhLTyQmKsQyXNG4 lbm [file] ICAgICAgICAgICAgICAgICAgICAgICAgICAgICAgIC AgICAgICAgICAgICAgICAgICAgICAgICAgICAgICAgICAgICAgICAgICANCiAgICAgICAgICAgICAgIC AgICAgICAgICAgICAgICAgICAgICAgICAgICAgICAgICAgICAgICAgICAgICAgICAgICAgICAgICAgIC AgICAgICAgICAgICAgICAgICAgICAgICANCiAgICAg ICAgICAgICAgICAgICAgICAgICAgICAgICAgICAgICAgICAgICAgICAgICAgICAgICAgICAgICAgICAg ICAgICAgICAgICAgICAgICAgICAgICAgICAgICAgICAgICANCiAgICAgICAgICAgICAgICAgICAgICAg ICAgICAgICAgICAgICAgICAgICAgICAgICAgICAgIC AgICAgICAgICAgICAgICAgICAgICAgICAgICAgICAgICAgICAgICAgICAgICANCiAgICAgICAgICAgIC AgICAgICAgICAgICAgICAgICAgICAgICAgICAgICAgICAgICAgICAgICAgICAgICAgICAgICAgICAgIC AgICAgICAgICAgICAgICAgICAgICAgICAgICANCiAg ICAgICAgICAgICAgICAgICAgICAgICAgICAgICAgICAgICAgICAgICAgICAgICAgICAgICAgICAgICAg ICAgICAgICAgICAgICAgICAgICAgICAgICAgICAgICAgICAgICANCiAgICAgICAgICAgICAgICAgICAg ICAgICAgICAgICAgICAgICAgICAgICAgICAgICAgIC AgICAgICAgICAgICAgICAgICAgICAgICAgICAgICAgICAgICAgICAgICAgICAgICANCiAgICAgICAgIC AgICAgICAgICAgICAgICAgICAgICAgICAgICAgICAgICAgICAgICAgICAgICAgICAgICAgICAgICAgIC AgICAgICAgICAgICAgICAgICAgICAgICAgICAgICAN CiAgICAgICAgICAgICAgICAgICAgICAgICAgICAgICAgICAgICAgICAgICAgICAgICAgICAgICAgICAg ICAgICAgICAgICAgICAgICAgICAgICAgICAgICAgICAgICAgICAgICANCiAgICAgICAgICAgICAgICAg ICAgICAgICAgICAgICAgICAgICAgICAgICAgICAgIC AgICAgICAgICAgICAgICAgICAgICAgICAgICAgICAgICAgICAgICAgICAgICAgICAgICANCjw/eHBhY2 jnpEAijoS8L4dtAi1WOe5YTE3ju2FmSEUhTXhvngHjSahXVrOdGFNmScxXUdr8YNcrFP8JyWVjZ1SiS3 AaMChwIG5UXDBnVOLdiGDiIPIvPGXgNzR8BDWoCKmm KW8PmLNeLNymWVJuYSOrPwBnZSGyHAJrOWBkWQOlWFPVAKAcHPXjHtXaXSHvZPKvBFowBXLMXXV6TKOp LmIkFOolPY1Vr8ZqfNV4CWv+Hp8EDM0mz2VxESvoSpNoHE6tih6ISNeVLjPvM0GjccR0SMX9ESEjQo5F YRWdUFQlnOJ0EVUiOAECElFmR6GwrA31NFDXMm3+DQ xvzlVmYlgLSoR0IENlq9YkQMq0GC0HRTEaDAk5tEUtOLUqNARqvweeMHTmSs38XSBtKxqmMgsoJHLYFZ 3pjYIhf8G3NLHDHpKpoUQ7XoG6VnOhSdNqNFZ8HWmmUJ9qYAocMO2JYCM3BBgaZRGaYTWxL2rPSuGwHD ugWXPuaRziNN2XXrRhG3CapgMneDOfMxSnROBGBeXa D22awDYfCufdFELXNPk+Ks2LQO1em6HwEKswNEZcFP5hyp6EZHjVYfGiX4SuoLhbEKVJRCWpa9HuURGp DX5jvNGaZHM9IHXfTYLvAEHnFDd2UOKbtAuhUE4bEEQaPK9eZw6nWNSuLFS0SmZ8VBDCGY7WDDRlEABz xYVjRIGcJNEqGlXaDOrcYCPuEcT8DO90tZxzAF6QIO RpKICvAZ52NJJ6MNQhXl7SNTOpNRJzscGfVmPrMJNGIhZsS56blAAuSvjcXNRPXZk+Mw6UZA7mp9DuTY awPTSoPR1ycy8JFDuDEjCkN4NdjRjfSZMONB0ukCIzLVA4FEtdyCudfzeqVRPZWFQlILRcq20jYISWEL S2EEToAXSoSvJoKXMwTNo5HwWXVLwCWkWxF5Mmt8Fl LvBuUFEaMJQvI7qKHvUzHYW0MMBffMldVD3VRkJsL9XobpZnaBVkRuRkBREHSvDoB8RdGBRnGtooAKYJ YJzbMZ9ICKp1HNZsMUVtKo3QJz7IJuRhEW4zir2VKUUbYDSgIbeSYbt1NLuxOM8QkPEsCTvFYVQOhdyi M2IcOt67PTHtCqqxHWGkmGNmGJAFJAAtgIJjTOJVOW G9CXYbXIMaNiJfPPItTosvQOBHNCzNTkLoU2Ygf0UiNbCxVZCiXGCbQ3vZDlFgAHD8XsGqvZygVR2DFu VxM1ZlvqJziMUfLpBlZOZOVcItK7IkXMEfDhqhCOTOAAjaTV3MNGk8VHZcGHGgDt2DBn8UDkJsGV7slo 7DNKDhRXGvYqxKMzh0WLudTD9NzJSnENtQBDPAk4Jw uvFklYKOTVVquTFYSKMmvZPbHBNMVeGnlIH5NqH8ByGtSmUjWUF4UGvfGG7ySZueKY8QHBP6UEneWYyy VOXIME6YJVfoPCOwYDSctxYcyQZmSKesFT9XIWSradGeQsWkTVEDYUayUJ4HwoX2BKMjDXBeLp5QHi7H ZpHbGL9gdj6AECHfSKEmIezMMvo5MNkyPU2VxCQgH2 SlvEKmw1cRKiIjE3BEKFQ0KFBqHh5WUEViAxAyNSYyCPiyHF7cYPAkAXUVxYcaigU8PH5WNY2okiNqXA 9VIpKbZs7uTg5TQpGrH8RkD4AjOAYiJJWRGTfbCL8VTNjjBT8nKV6Vc0CDbLIceA6wtl1SJKQdFRJfOk pxwh1QApjeU0Q3xMuxDQPxUjQxIHRWBUvtGX3HKLVi ZQZ0KYVgRXVnNUJUVpThO19yDS5BC6Hvl94pLnK8GKKwBpAuILnjLM91pWghviNatVZnuNvqLD4YZs5+ FPdjzeXxKtkEQdgcHMVRWhMbPSKQQhYnHHFwKUQpUTSaMaJ3TwFxWt3DNMSjOTHiZGHvBoRbIPKxJSBr TOmvKOTxLNHoBtO4OYRxGQXzYP0EGuIiLUNjTYBePb PrIGQbQBTmdx0CXPCuQWOwETV6ZvDkWCCzVEUgPSyyVMNvAAKaRkZmFZMqELBvLT1FBbUqVLKtWET5Ud YjPTHsLGSmsd2OUSHyGTYuJOM6ULNkWHInVMRkJPibKGRsOYI0Eea7ANQuCYIgUJ0KFpXxAXSpZAh7SV xyERFpIMLnwg5JMJPyISJmITQoIgVwNQVkSLFxOMow RDJjOLFdKKR1SDFiOGUiZC4USwAxUZIsLJFzRTZhEPWvVKBqtd1GAULeELUgDLf0KYDhXGUvPDVaSOfk JGThEBZ9DHn6IITkATFrBE6RItWoIEOkHPq0VTmzRNZwHFGnry4LBRXiMEXcDcymNSArIDXpRPSiXIrh HOKbOIDxGAK5XIBwEMAaWR6FOdArIXOyKtClBuYhLY SxSVUabr4KUBYhCCLfWrpvFNZmAEGjXTPhQJyhYUFlCUCmDGQ4NVKuNUZlZL3TXlLzKKXaDgN2OuCdFE QcMDBovb5YWUIaZUWaKDU0PnXtGPIvYGAaZPjqBAXlYOP4IdG4KERvXRCkOM1QZoScJFVgEuXuCUNdND BcKWFbel1UDGYfVCRvAiYpLbOwJBCzDFMdRWrkGIOh BTR7ZwK0MOEdIQKsKM7KSlObVPVrDme8YdFbQLGyIOOvut7OQVVwBYNpCqr7HDKyXZZfKNBoFJiiSMKm YCB7BFQ3IGBcSFBuPF8XPeSpRUSjUwlcKuCjVOUvKWJjnn3KAXEcDKMuYZZ5DGRzXNJuIYPnGDdnZFWu JHG2QYN8KVRjIZBlMD8JEqPsJOAtXNJlQBocVZQnSX Nlwu5SZUDmMLS7SYAnESHlBRFgRLYyIBbiQCNaZGJzLbUaJPMtSBYqBF9NHtCkIAJpDWDiGZLnGCWsRJ Xmrj1BDCYfKRI9NyL9HuPlAUKpGEBsDDxlUCDqIKNfSRY0UGBcESBlUV3QMySzLHJxWCD6DlVbTXOsGF Mpgc8DXAChJBD8TxvoUsAfSRDeYDBtYLfvVXEmKSKp JDd9DWHnUSAiBA4IMeBxLDDzOGNlBZHfUQBcBVMyfp6VpGAjuZcokn0KLNcDVs9VhAelMPAtVHdfXu2a iSZ7PjLbNYKNCw1SlvXeJXRoJZMYVOdmBATzWUzfE6E6OUK1ARDnAFKmCyVlPVX6UXq8NLE9NJZeGRRe GnO5RhUyIFEjHjcdYAYwSKX3CURgRpsrCAS8DcGpVE I5MTE+JT0lJDo+Le4Ue6EaphN1krDvGVc0FkV2GK6XJXEDQ0FPUu== ID Date Data Source [id number] 01/16/2021 12:56:16 PM T [facility] Hospital Name Value Range Interpretation Code Description Data Tyra rce(s) Supporting Document(s) [facility] GXTXEs0tUhQUOiQun0YlJfYdFZCmIX1rcbi6U6X1gYYdR5IwhAFmm8tiP8SpO6SsAGDxZJEHBJ3NwINn jb2 [file] Sj8v4Pa625cKcXIf1efRpdvkTJ9M+AvWsMdiwRPP+[employer] MACHINE [file] soL2ktCxIgl2RYedWuAyPT5M ID Date Data Source [id number] 01/16/2021 01:35:16 PM EDT [facility] Name Value Range Interpretation Code Description Data Tyra rce(s) Supporting Document(s) Leukocytes [#/volume] in Blood by Automated count 10.1 10*3/uL 4-10 H [facility] Erythrocytes [#/volume] in Blood by Automated count 2.75 10*6/uL 4.1- 5.3 L [facility] Hemoglobin [Mass/volume] in Blood 7.8 g/dL 11.5-15.5 L [facility] Hematocrit [Volume Fraction] of Blood by Automated count 23.3 % 3 6-45 L [facility] Erythrocyte mean corpuscular volume [Entitic volume] by Auto mated count 84.8 fL 80-96 [facility] Erythrocyte mean corpuscular hemoglobin [Entitic mass] by Automated count 28.5 pg 27-33 [facility] Erythrocyte mean corpuscular hemoglobin concentration [Mass/volume] by Automated count 33.6 g/dL 32.0-36.[facility] width [Ratio] by Automated count 13.8 % 11.5-14.5 [facility] Platelets [#/volume] in Blood by Automated count 171 10*3/uL 150-400 [facility] Differential cell count method - Blood [facility] Neutrophils/100 leukocytes in Blood by Automated count 74 % [facility] Lymphocytes/100 leukocytes in Blood by Automated count 16 % [facility] Monocytes/100 leukocytes in Blood by Automated count 6 % [facility] Eosinophils/100 leukocytes in Blood by Automated count 3 % [facility] Basophils/100 leukocytes in Blood by Automated count 1 % [facility] Neutrophils [#/volume] in Blood by Automated count 7.51 10*3/uL 1.8-7 .0 H [facility] Lymphocytes [#/volume] in Blood by Automated count 1.58 10*3/uL 1.2-4 .0 [facility] Monocytes [#/volume] in Blood by Automated count 0.61 10*3/uL 0-0.8 [facility] Eosinophils [#/volume] in Blood by Automated count 0.28 10*3/uL 0-0.5 [facility] Basophils [#/volume] in Blood by Automated count 0.07 10*3/uL 0-0.2 [facility] Nucleated erythrocytes/100 leukocytes [Ratio] in Blood by Automated count 0 /100{WBCs} 0-0 [facility] ID Date Data Source [id number] [facility]/16[facility]21 01[facility]53[facility] Value [facility] Interpretation Code Description Data Tyra rce(s) Supporting Document(s) Erythrocyte sedimentation rate 54 mm/hr <30 H [facility] ID Date Data Source [id number] 01/16/2021 02:35:52 PM [facility] Name Value Range Interpretation Code Description Data Tyra rce(s) Supporting Document(s) Albumin [Mass/volume] in Serum or Plasma by Bromocresol green (BCG) dye binding method 3.4 g/dL 3.5-5.2 [facility] Bil[facility].total [Mass/volume] in Serum or Plasma 0.4 mg/dL <1.2 [facility] Calcium [Mass/volume] in Serum or Plasma 8.4 mg/dL 8.8-10.2 L [facility] Chloride [Moles/volume] in Serum or Plasma 99 mmol/L 98-107 [facility] Creatinine [Mass/volume] in Serum or Plasma 2.86 mg/dL 0.50-0.90 H [facility] Glucose [Mass/volume] in Serum or Plasma 205 mg/dL 70-140 H [facility] Alkaline phosphatase [Enzymatic activity/volume] in Serum or Plasma 79 U/L 35-104 [facility] Potassium [Moles/volume] in Serum or Plasma 3.7 mmol/L 3.4-5.1 [facility] Protein [Mass/volume] in Serum or Plasma 6.2 g/dL 6.4-8.3 L [facility] Sodium [Moles/volume] in Serum or Plasma 135 mmol/L 136-145 L [facility] Aspartate aminotransferase [Enzymatic activity/volume] in Serum or Plasma 22 U/L <32 [facility] Urea nitrogen [Mass/volume] in Serum or Plasma 59 mg/dL 8-23 H [facility] Osmolality of Serum or Plasma by calculation 302 mosm/kg 275-300 H [facility] Creatinine/Urea nitrogen [Mass Ratio] in Serum or Plasma 21 [facility] Bicarbonate [Moles/volume] in Serum 23 mmol/L 22-29 [facility] Alanine aminotransferase [Enzymatic activity/volume] in Seru m or Plasma 15 U/L <33 [facility] Anion gap 3 in Serum or Plasma 13 mmol/L 8-15 [facility] Glomerular filtration rate/1.73 sq M pre dicted among non-blacks [Volume Rate/Area] in Serum or Plasma by Creatinine-based formula (MDRD) 16 mL/min/1.73m2 >60 L [facility] Glomerular filtration rate/1.73 sq M pre dicted among blacks [Volume Rate/Area] in Serum or Plasma by Creatinine-based formula (MDRD) 18 mL/min/1.73m2 >60 L [facility] ID Date Data Source [id number] 01/16/2021 02:35:52 PM [facility] Value Range Interpretation Code Description Data Tyra rce(s) Supporting Document(s) C reactive protein [Mass/volume] in Serum or Plasma 90.7 mg/L <8.0 H [facility] ID Date Data Source [id number] 01/16/2021 02:35:52 PM [facility] Value Range Interpretation Code Description Data Tyra rce(s) Supporting Document(s) Troponin T.cardiac [Mass/volume] in Serum or Plasma 0.28 ng/mL <0.01 [facility] No Significant Change Since Last Result Called ID Date Data Source [id number] 01/16/2021 01:35:25 PM [facility] Value Range Interpretation Code Description Data Tyra rce(s) Supporting Document(s) Lactate [Moles/volume] in Serum or Plasma 1.2 mmol/l 0.5-2.2 [facility] ID Date Data Source [id number] 01/16/2021 12:14:13 PM [facility] Name Value Range Interpretation Code Description Data Tyra rce(s) Supporting Document(s) Glucose [Mass/volume] in Capillary blood by Glucometer 166 mg/dL 70- 140 H [facility] ID Date Data Source [id number] 01/16/2021 11:13:[facility] CONTRAST [id number] RESU LTInterpreted by:CATINA Reedrocedure: CT scan of the head without contrastHistory: The patient is 70 years with headaches.INDICATION: Acute AMS, new onset AFIBTechnique: Standard CT scan of the head without intravenous contrast. Automated dose lowering techniques and/or adjustment according to patient size were utilized for this exam.FINDINGS:Comparison: noneModerate nonspecific white matter disease. The ventricular system is prominent. There is no mass, mass-effect or midline shift. No intra-axial hemorrhage or extra-axial fluid collection is seen. Ar teriosclerosis involving the anterior and posterior circulation.Limited views of the orbits and paranasal sinuses demonstrate status post right cataract surgery. Mucosal thickening in the ethmoid cells, bilaterally.Bone windows demonstrate a small osteoma in the posterior left mastoid cells. Partial opacification of the left mastoid cells. Partial opacification of the left external auditory canal. Numerous cutaneous calcifications in the frontal area.IMPRESSION: 1. No acute intracranial hematoma.2. Moderate nonspecific white matter disease.3. Mild prominence of the ventricular system.4. 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 Status post right cataract surgery.6. 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 Partial opacification of the left mastoid cells and left external auditory canal.This document has been electronically signed by Clemente Hammond MD on 01/16/2021 11:11 AM Name Value Range Interpretation Code Description Data Trya rce(s) Supporting Document(s) ID Date Data Source [id number] 01/16/2021 08:46:09 AM [facility] Name Value Range Interpretation Code Description Data Tyra rce(s) Supporting Document(s) [facility] IKGNEg8cPyDHVnKp50/TMOieDEOoz4EhGTdyVLn6CFxeBFQfP8QfERH2xS5bHHW1VCqVCeNmCsQvIGC7 lbm [file] AgICAgICAgICAgICAgICAgICAgICAgICAgICAgICAgICAgICAgICAgICAgICAgICAgICAgICAgICAgIC YeUY9YBXLqCJChFGCsLAUwWQUtBMGmMHIdDGOhWQJv ICAgICAgICAgICAgICAgICAgICAgICAgICAgICAgICAgICAgICAgICAgICAgICAgICAgICAgICAgICAg EGGqFPBtJYYaBXAkKS2NTJMiWMHcBTRhZUNbABAuRFNgMAEbNCNaFNXpQGJxSTHjTFXgXZYwQNGbNRBt ICAgICAgICAgICAgICAgICAgICAgICAgICAgICAgIC AhZXFiHMSyESOnIYGqVBIiQNZfSJCaOA1MUTXaQSKpVORtIVXiXSByMSNtYPAnQNHbSYViXHJqUKYyMQ AgICAgICAgICAgICAgICAgICAgICAgICAgICAgICAgICAgICAgICAgICAgICAgICAgICAgICAgICAgIC EdXIHxID7TQXLzGVYyGZHfNQPzKOSgRPEeACOpILFk ICAgICAgICAgICAgICAgICAgICAgICAgICAgICAgICAgICAgICAgICAgICAgICAgICAgICAgICAgICAg RKGwJRVnHNUkBUWsYPNsJQ0BSTZxCZVjMWTtPNVzTSIgMSBoEKHtCSBeAKMwWHZdMMTeITHdJJLkTDYd ICAgICAgICAgICAgICAgICAgICAgICAgICAgICAgIC OwBHBjHDSvGLHhWXSrPCVrTTVvQOUzJCDhZL0JXGHeUHXfMJFrITPnYHUpBQOhDSFqATIsCNNfHLIuFC AgICAgICAgICAgICAgICAgICAgICAgICAgICAgICAgICAgICAgICAgICAgICAgICAgICAgICAgICAgIC LbIWCmEKSwAK8PPHSiOHYvJJOkECZgPFVvUSLfVMTv ICAgICAgICAgICAgICAgICAgICAgICAgICAgICAgICAgICAgICAgICAgICAgICAgICAgICAgICAgICAg XXZxNTVvRYAvPJXwAZGzCLTuRZ0KZFXcEBOfDBLiCAAaHODkHGXnHHAcSCJgQYXpKYEdVBNpIJSrOBVl ICAgICAgICAgICAgICAgICAgICAgICAgICAgICAgIC MmUWGnOHCaEYYnRFZnJPYcYJAdATLxKFPiWALnGK1WMLWcNPLeTFXlKRPhZMVuVAZmWVRvZSRsKAZbBZ AgICAgICAgICAgICAgICAgICAgICAgICAgICAgICAgICAgICAgICAgICAgICAgICAgICAgICAgICAgIC QjQHWhNJDxKOEkDK2NLK42dYUaq6L5JZYsAK2tvot/ Qz3DQUvocrUexAUjGM2QHaUfHO2max2EEhGzMG1sff6BZRaMXxGsC3P7sUVbBIUcESBZBqIyP49fHZwx Va42HCwwSTMdWmBrRFm0Jd8YFyEbW1qtGGNaXiF5DLXhVxR4ISEoAvV5KCBwXgImSXMdZHDrXBQiGBJQ SKY3FWItBkAqSEgvGB6Pl7MpeKI2NBq+Nh2RAU1ml3 BoQAdcUqHgUP2qih4DIEbBVqGtJ6DvkxQ7UEIrUEXzEl8SBYFwCBEajEDdVzXbZAVQHpPzF6UsqZ92LJ ENCj4+ZQifkkIdJdoTKwUjNAUpz7LwTJw4WJ9VDKPuYCd4rSEfJ24fz9PobFErLihmNLrdwjtiHWCeF5 8dbPCpXY2WQfCjPWGpHU8mYk0dTNHzHNIlLcX6KFGV PH9SSRVwUILgwJGkOMZvHOTGOZ2CNQpsXPI9BPPratFbxRXhBZqdAN7MEPYturJqLtPjRGOUBKe+Pg0K YA5wm1YaGYigYROqZJ8pdk6LHEfQKjJeM5O3bSDbL4M0TPvlUa4WFHLiLDWtKmUgGALFLCjfXJ0URG4x pgH7ME5OkFWtFULnTWDvmTWxCWc1V66fxMHjLYxfHX 0KICA+Javed+Us5TYFTrZMMjRLFaTqUiRUDETsBlI3NiF3UFt9EeP1SuOT12aXhdygBlNOqgJE5WUW2bCE WjRFCCNL7YcKMbsV1rbnZmAbEkDIJPNwHqO77aqSIgXKUcDOAdERLfXn8UPREwV5KgqnKphQjqyqYaNF LdFMNYQA9HSCyfvqXjzWAeeXjoEP81dEinMF3GWd1U XxOnCA2djk8JbFQgKx5PQOCoSR2SMDKlJFDrLABwUXO2RSOkXeXtHFmnVILvVNKeJEQ0ZCIlGRQqLS1J AvRpPYPpUlNrAAXvCSSdXURvkb9PBQIpXSFnWxy0AHLaFSAyILGgQYkrMEViOBOtXXD1EVMqTSOyRQ0G ReAbMOVsZIC8EZRqHACvYUEzvl2ZCSHyCSFgCKLiPZ AkNTUyZMGfAWgcEQPtUGN5NjE4HAToELJrAL7JFxItMMSmEYz0XpgoLKZySNBnea8IHRYtVZNqSXY5DE JuQRHuVCQsBSgoITEhVEYxJOXrHKHjILGfPC6SQmCnWHAqMXKgVPNrBQRsWNMrel4MJRAiRTGoKIP2As FxSZOzHWLgMLazHNIlTLV4BlhsLOHgBJCeXJ4MGxKn NLYfTIa7NXefLRBuQFAnnc1VDTMtYZFlNOnfYRHkMWShETCcHJjfOENmVKU4DCP2BSBhWVEyZG7AOsWu ZMCnAKp3XygnFDYvNTRedz4YHIPdMHSlVPI0ZTCsTAKuKQQsGAapVVLiDBQjWvB1FQPeEJAcQT9TUoSe NNHpVoGrPKSfAHNpRAJyur5VPGMoJJHlNEOhUYLxSL QlFLVuGCqiFIFuIRLfCKl8BYQjPOZhTE1ANlVqPOXeGrF9PPWsKJNgCATqoh4UAHQzDQBeCuc0EaKhRX OrMLPdJZusOAXiZMBoUIY8XOYwLEKnQZ7VLfNmDOEqEpSnFpUhPIVuUBAwms1ZBASzWAZvBOLlYRJrDL LnPKNcMJtvBIXgNWU5JNQ2PBPiHMQzKN4HXdXuHKTp JdAvKKmzLJVhTVDvhh3YDBJvIMVmFLDzHoWwWTTsMWBmZYcsYJYgFVM0YaFrWCVaIPLtWD9QGfBmAQYu WcskLdFaHTArMCAdnj6VQLXwRJYbZyR0TwZoILRgLXCjSJkcRFQyCOQ8GeW8DLTqCOSzUV1VBfGrZWoq YZDUDnt1GFhmB2f8WFJqPT9IK9Ppk4FyFpGqOVJFEH bsCD1tttMcADFxKn5BB4dIIxk5VaL7A2G7YUR9PeZ6VmjzXQSkTaTuAGG8HkTnR6KnHo9qYCNiDPggRX M7PkXoTAXxU6ZmOAM7N8H4LEtdAMKlODM2JpOwCI8IPi4NCdT5VZF5zKSsSp2UJvu0TLSHAhTrDS4OZO o= ID Date Data Source [id number] 01/16/2021 08:49:18 AM [facility] Name Value Range Interpretation Code Description Data Tyra rce(s) Supporting Document(s) Glucose [Mass/volume] in Capillary blood by Glucometer 209 mg/dL 70- 140 H [facility] ID Date Data Source [id number] 01/16/2021 07:28:30 AM [facility] Name Value Range Interpretation Code Description Data Tyra rce(s) Supporting Document(s) Leukocytes [#/volume] in Blood by Automated count 10.3 10*3/uL 4-10 H [facility] Erythrocytes [#/volume] in Blood by Automated count 2.58 10*6/uL 4.1- 5.3 L [facility] Hemoglobin [Mass/volume] in Blood 7.6 g/dL 11.5-15.5 L [facility] Hematocrit [Volume Fraction] of Blood by Automated count 21.8 % 3 6-45 L [facility] Erythrocyte mean corpuscular volume [Entitic volume] by Auto mated count 84.5 fL 80-96 [facility] Erythrocyte mean corpuscular hemoglobin [Entitic mass] by Automated count 29.5 pg 27-33 [facility] Erythrocyte mean corpuscular hemoglobin concentration [Mass/volume] by Automated count 35.0 g/dL 32.0-36.0 [facility] width [Ratio] by Automated count 14.2 % 11.5-14.5 [facility] Platelets [#/volume] in Blood by Automated count 145 10*3/uL 150-400 L [facility] Differential cell count method - Blood [facility] Neutrophils/100 leukocytes in Blood by Automated count 75 % [facility] Lymphocytes/100 leukocytes in Blood by Automated count 14 % [facility] Monocytes/100 leukocytes in Blood by Automated count 7 % [facility] Eosinophils/100 leukocytes in Blood by Automated count 3 % [facility] Basophils/100 leukocytes in Blood by Automated count 1 % [facility] Neutrophils [#/volume] in Blood by Automated count 7.79 10*3/uL 1.8-7 .0 H [facility] Lymphocytes [#/volume] in Blood by Automated count 1.47 10*3/uL 1.2-4 .0 [facility] Monocytes [#/volume] in Blood by Automated count 0.74 10*3/uL 0-0.8 [facility] Eosinophils [#/volume] in Blood by Automated count 0.29 10*3/uL 0-0.5 [facility] Basophils [#/volume] in Blood by Automated count 0.05 10*3/uL 0-0.2 [facility] Nucleated erythrocytes/100 leukocytes [Ratio] in Blood by Automated count 0 /100{WBCs} 0-0 [facility] ID Date Data Source [id number] 01/16/2021 07:47:19 AM EDT [facility] Name Value Range Interpretation Code Description Data Tyra rce(s) Supporting Document(s) Troponin T.cardiac [Mass/volume] in Serum or Plasma 0.27 ng/mL <0.01 [facility] No Significant Change Since Last Result Called ID Date Data Source [id number] 01/16/2021 08:02:59 AM [facility] Value Range Interpretation Code Description Data Tyra rce(s) Supporting Document(s) Reticulocytes/100 erythrocytes in Blood by Automated count 2.2 % 0.6-2.8 [facility] Reticulocytes [#/volume] in Blood 58.4 10*3/uL 26-122 [facility] Immature reticulocytes/Reticulocytes.total in Blood 0.50 % 0.26-0 .52 [facility] ID Date Data Source [id number] 01/17/2021 12:07:29 PM [facility] Value Range Interpretation Code Description Data Tyra rce(s) Supporting Document(s) Hepatitis C virus RNA [Units/volume] (vi ral load) in Serum or Plasma by Probe and target amplification method [facility] Hepatitis C virus RNA [log units/volume] (viral load) in Serum or Plasma by Probe and target amplification method [facility] Service comment [facility] (NOTE)The quantitative range of this ass ay is 15 IU/mL to 100 millionIU/mL.Performed At: [facility] [id number] Blackwell MD Ph:[id number] ID Date Data Source [id number] 01/16/2021 10:40:54 AM [facility] Value Range Interpretation Code Description Data Tyra rce(s) Supporting Document(s) Hepatitis B virus core Ab [Presence] in Serum or Plasma by I mmunoassay Non Reactive [facility] No active or previous infection. Suscept ible to infection. ID Date Data Source [id number] 01/16/2021 10:40:54 AM [facility] Value Range Interpretation Code Description Data Tyra rce(s) Supporting Document(s) Hepatitis B virus core IgM Ab [Presence] in Serum or Plasma by Immunoassay [facility] Reactive [facility] IgM antibodies to HBc were not detected, does not exclude the possibility of exposure to HBV. ID Date Data Source [id number] 01/16/2021 10:40:54 AM EDT [facility] Name Value Range Interpretation Code Description Data Tyra rce(s) Supporting Document(s) Hepatitis B virus surface Ag [Presence] in Serum or Plasma b y Immunoassay Non Reactive [facility] No active or previous infection. Suscept ible to infection. ID Date Data Source [id number] 01/16/2021 02:25:12 PM EDT [facility] Name Value Range Interpretation Code Description Data Tyra rce(s) Supporting Document(s) Neutrophil cytoplasmic Ab [Presence] in Serum by Immunofluoresce nce Negative [facility] ID Date Data Source [id number] 01/16/2021 03:11:38 PM EDT [facility] Value Range Interpretation Code Description Data Tyra rce(s) Supporting Document(s) Protein [Mass/volume] in Serum or Plasma 4.7 g/dL 6.4-8.3 L [facility] Albumin [Mass/volume] in Serum or Plasma by Electrophoresis 2.56 g/dL 3.80-5.78 [facility] Alpha 1 globulin [Mass/volume] in Serum or Plasma by Electro phoresis 0.16 g/dL 0.08-0.23 [facility] Alpha 2 globulin [Mass/volume] in Serum or Plasma by Electro phoresis 0.78 g/dL 0.45-0.92 [facility] Beta globulin [Mass/volume] in Serum or Plasma by Electropho resis 0.78 g/dL 0.50-1.03 [facility] Gamma globulin [Mass/volume] in Serum or Plasma by Electroph oresis 0.42 g/dL 0.54-1.30 [facility] Protein.monoclonal [Mass/volume] in Serum or Plasma by Electrophoresi s 0 [facility] Decreased total serum proteins (4.7 g/dL ) with hypoalbuminemia and hypogammaglobulinemia. This can be seen in nephrosis, protein losing enteropathy, or severe acute illness. Clinical correlation is recommended. Pathologist name [facility] ID Date Data Source [id number] 01/16/2021 11:27:24 AM EDT [facility] Value Range Interpretation Code Description Data Tyra rce(s) Supporting Document(s) Folate [Mass/volume] in Serum or Plasma 12.29 ng/mL >4.77 [facility] ID Date Data Source [id number] 01/16/2021 11:28:04 AM [facility] Value Range Interpretation Code Description Data Tyra rce(s) Supporting Document(s) Hepatitis B virus surface Ab [Units/volume] in Serum o r Plasma by Immunoassay 5.7 m[IU]/mL >11.4 L [facility] Non ReactiveNo active or previous infect ion. Susceptible to infection. ID Date Data Source [id number] 01/16/2021 01:50:32 AM [facility] Value Range Interpretation Code Description Data Tyra rce(s) Supporting Document(s) Troponin T.cardiac [Mass/volume] in Serum or Plasma 0.25 ng/mL <0.01 [facility] Results called to and read back by 6A AMERICA GARCIA AT [id number] BY [id number] ID Date Data Source [id number] 01/16/2021 01:47:29 AM [facility] Value Range Interpretation Code Description Data Tyra rce(s) Supporting Document(s) HIV 1+2 Ab+HIV1 p24 Ag [Presence] in Serum or Plasma by Immu noassay Non Reactive [facility] Negative for HIV-1 p24 antigenand HIV-1/ HIV-2 antibodies. Nolaboratory evidence of HIVinfection. ID Date Data Source [id number] 01/16/2021 01:51:12 AM [facility] Value Range Interpretation Code Description Data Tyra rce(s) Supporting Document(s) Creatinine [Mass/volume] in Urine 115.1 mg/dl [facility] ID Date Data Source [id number] 01/16/2021 01:51:12 AM [facility] Value Range Interpretation Code Description Data Tyra rce(s) Supporting Document(s) Sodium [Moles/volume] in Urine 24 mmol/L [facility] ID Date Data Source [id number] 01/16/2021 01:51:12 AM [facility] Value Range Interpretation Code Description Data Tyra rce(s) Supporting Document(s) Chloride [Moles/volume] in Urine [facility] Confirmed ID Date Data Source [id number] 01/16/2021 06:03:34 AM [facility] Value Range Interpretation Code Description Data Tyra rce(s) Supporting Document(s) Osmolality of Urine 329 mosm/kg 300-1000 [facility] ID Date Data Source [id number] 01/16/2021 08:29:33 AM EDT [facility] Name Value Range Interpretation Code Description Data Tyra rce(s) Supporting Document(s) Urea nitrogen [Mass/volume] in Urine 421 mg/dL [facility] ID Date Data Source [id number] 01/16/2021 03:10:09 PM EDT [facility] Name Value Range Interpretation Code Description Data Tyra rce(s) Supporting Document(s) Protein [Mass/volume] in Urine 331 mg/dl [facility] Confirmed Albumin/Protein.total in Urine by Electrophoresis 83.2 % [facility] Alpha 1 globulin/Protein.total in Serum or Plasma by Electrophoresi s 2.1 % [facility] Alpha 2 globulin/Protein.total in Urine by Electrophoresis 3.9 % [facility] Beta globulin/Protein.total in Urine by Electrophoresis 6.1 % [facility] Gamma globulin/Protein.total in Urine by Electrophoresis 4.7 % [facility] Protein Fractions [Interpretation] in Urine by Electrophoresis [facility] Pathologist name [facility] ID Date Data Source [id number] 01/15/2021 10:33:39 PM T [facility] US RENAL OR AORTA COMPLETE [id number] RE SULTInterpreted by:Elliott Rubio MDPROCEDURE INFORMATION: Exam: US Retroperitoneal Complete, Kidneys Aorta IVC. Exam date and time: 01/15/2021 8:35 PM Age: 70 years old Clinical indication: Heart failure, unspecified; Chest pain, unspecified; Screening exam; Other: Renal dysfunction TECHNIQUE: Imaging protocol: Real-time ultrasound of the retroperitoneum with image documentation. Complete exam. COMPARISON: No relevant prior studies available. FINDINGS: Right kidney: The right kidney measures 11.7 x 5.3 x 7.6 cm. The right renal cortex measures 14 mm. There is a small rounded nonshadowing echogenic area in the lower pole of the right kidney measuring 7.8 x 4.5 x 7.1 mm which may reflect an angiomyolipoma.No hydronephrosis. No definite shadowing calcifications. No perinephric fluid collections. Renal cortical echogenicity is within range of normal. There are areas of mild renal cortical thinning bilaterally.Left kidney: The left kidney measures 11.7 x 6.2 x 4.8 cm. The left renal cortex measures 1.5 cm. No hydronephrosis. No definite shadowing calcifications. No perinephric fluid collections. Urinary bladder: Bladder volume is estimated at 241.5 mL. The urinary bladder appears within range of normal. Bilateral ureteral jets are present. IMPRESSION: 1. Small rounded nonshadowing echogenic area in the lower pole of the right kidney measuring 7.8 x 4.5 x 7.1 mm suggesting small angiomyolipoma. 2. Mild renal cortical thinning bilaterally.3. No hydronephrosis.THIS DOCUMENT HAS BEEN ELECTRONICALLY SIGNED BY ELLIOTT RUBIO MDThis document has been electronically signed by Elliott Rubio MD on 01/15/2021 10:33 PM Name Value Range Interpretation Code Description Data Tyra rce(s) Supporting Document(s) ID Date Data Source [id number] 01/15/2021 09:32:18 PM [facility] Value Range Interpretation Code Description Data Tyra rce(s) Supporting Document(s) Glucose [Mass/volume] in Capillary blood by Glucometer 273 mg/dL 70- 140 H [facility] ID Date Data Source [id number] 01/15/2021 07:37:10 PM [facility] Value Range Interpretation Code Description Data Tyra rce(s) Supporting Document(s) Troponin T.cardiac [Mass/volume] in Serum or Plasma 0.26 ng/mL <0.01 [facility] No Significant Change since last result called ID Date Data Source [id number] 01/15/2021 09:29:10 PM [facility] Value Range Interpretation Code Description Data Tyra rce(s) Supporting Document(s) Cobalamin (Vitamin B12) [Mass/volume] in Serum or Plasma 670 pg/ml 2 11-946 [facility] ID Date Data Source [id number] 01/15/2021 09:29:10 PM [facility] Value Range Interpretation Code Description Data Tyra rce(s) Supporting Document(s) Complement C3 [Mass/volume] in Serum or Plasma 124 mg/dL 90-180 [facility] ID Date Data Source [id number] 01/15/2021 09:29:10 PM [facility] Value Range Interpretation Code Description Data Tyra rce(s) Supporting Document(s) Complement C4 [Mass/volume] in Serum or Plasma 28 mg/dL 10-40 [facility] ID Date Data Source [id number] 01/15/2021 09:29:10 PM [facility] Value Range Interpretation Code Description Data Tyra rce(s) Supporting Document(s) Ferritin [Mass/volume] in Serum or Plasma 369 ng/ml 13-150 H [facility] ID Date Data Source [id number] 01/15/2021 09:46:08 PM [facility] Value Range Interpretation Code Description Data Tyra rce(s) Supporting Document(s) Iron [Mass/volume] in Serum or Plasma 35 ug/dl 37-145 [facility] Transferrin [Mass/volume] in Serum or Plasma 163 mg/dL 200-360 [facility] Iron binding capacity [Mass/volume] in Serum or Plasma 226 ug/dl 228 -428 [facility] Iron saturation [Mass Fraction] in Serum or Plasma 15.0 % 20-55 [facility] ID Date Data Source [id number] 01/15/2021 05:20:01 PM [facility] Value Range Interpretation Code Description Data Tyra rce(s) Supporting Document(s) Glucose [Mass/volume] in Capillary blood by Glucometer 297 mg/dL 70- 140 [facility] ID Date Data Source [id number] 01/15/2021 04:02:57 PM [facility] Value Range Interpretation Code Description Data Tyra rce(s) Supporting Document(s) [facility] RELVIk1rSbQXXtWn67/DOKbfXLJmr9NpUOgdZDc9RBriCISnF3LdCMK4nX0kFMI1SKyCQeOhUnCoGVR5 lbm [file] MDAwMDAxMTExMiAwMDAwMCBuDQowMDAwMDEyMDcxID OrNLXfXG7VEdMkFCZyCKOaGdSlUBFeLGQtbn0OLRDqXNKoZhV7FGHsZTDmLFRqGFujQNBkRLAtMBJwOQ WmWBJtSD3SGpVrNSNsETC4IRzaVGCpPPRewm1RDQQjVJDxMqujNVIuIYHiTQViQNkcBREkTDI6PjXeSJ GnGDSaZW7BQyCfTTQyLNA4ZAHvAQBzZQGsvl2RWHRh RCOkCZu5AfNaGIBfQYKfNLmnXOYwSPQ4VUA5AYTqAYWwGT5KPsZmNDedFSFYBiw9ZGqrK7b9YPRdYy8O L3Uiv0YpJsYlUTRONSyxFW4egyYlCJBzCn7SR2wICwv7LKbnYsB8KLCtEfT9CwmkAoXwDXW9EtB1Hju1 WLGgON7pHJZmOPNaOuh8QMGtOwZdJRSeArZuCEovPl E1KYqvHOSeKvSgZS8XRm7FWqD6KBJ1wGZbYx3VZJXsPHLIKpSqCZ2VEDr= ID Date Data Source [id number] 01/15/2021 12:56:10 PM EDT [facility] Value Range Interpretation Code Description Data Tyra rce(s) Supporting Document(s) Glucose [Mass/volume] in Capillary blood by Glucometer 352 mg/dL 70- 140 [facility] ID Date Data Source [id number] 01/15/2021 02:01:19 PM EDT [facility] Value Range Interpretation Code Description Data Tyra rce(s) Supporting Document(s) Troponin T.cardiac [Mass/volume] in Serum or Plasma 0.21 ng/mL <0.01 [facility] No Significant Change since last result called ID Date Data Source [id number] 01/15/2021 08:05:16 AM EDT [facility] Value Range Interpretation Code Description Data Tyra rce(s) Supporting Document(s) EKG [facility] QQNDPx8fFkGSXcWhu8UxCqRgZZGxVP9lfpa1G7H5tJFvW4DlsNPri3aaN9TfV7GuUSVnCQUHVM9BjUUb jb2 [file] 3jb/0tp53e1Tv62A3/6z/6StRv7/97S0lipKz0qbDG Iv/thoyEl25ylTiPi58hf8OqVjri/um7W6b/8t8N4r/88W4Wd+wVP88x/8ZW8b/xf/rz41d/Txc90r/8 gLSKQ877E5/ecjA5R080n47Bc+cYowqHL8x4lIG/NzaI/i1M01qqN12+28P/0iYHHQ8RU9eAPQ3U+8UO v/pTMtK/6+VpDv4E39fa/Dzn/cs3toN8tdPg4SAoF2 7pa8/gVzvTv/ba62yvbRYk/mM6m5nD2/OlnyG8Lcl/8itV3F+9/qwKfw5+9aRv/3Og5Nazoid7+FVeo6 wi3AegIvdO+TMianc2u0ryw/Zw8OfVfjD6qj+oZ6L+zSSE1xrNI/oOjN/rB5gAS4/yq8ii3gBC02e/8K vMH7h+1W3Mf2oJuUcs+z0b706QAvdonUw1YpTfEH9P r160H490kHGPaK92FeLOppGk8T+Cotb4zkE/Rejn7DWiq2dfDTjAdQ+ZJf1lc9/pz6BO4rCH/a6/6g35 zdoA5VmPE/NfZ141ctn8rr/pZ2MIsl7xs3pIs7i72smRK/c4vtwv77do33tx1thb3U0l7Ybeb93u2Ka0 NrOYv7l3A2/Keg6/fxrMs5mdBfa0o1keA2V35ApjsG wiXiXtDbRbR58t4/Mr7Qi7X/zyKwW/JtUiLY0P8WE/Uc0MI3XxlktDT+u6/Ahka75CNE6IN/13Tidxw5 +5dF3+hHPeR4Kc8GwPq9XhMYsic/WsDT2mk+44Xfhb0nEOz2epVcdN27mqnxVbsaEybY/W51ixIn/ase b50Luvgo+/swE84Uqgxs+/2iOuP+tvbDc//GrHBvPD r+K7+rMF+01P5E/kL+Qv5G/k75c/aY8XNmfBrM7Ug1eRE8zd53uZhqnn26u1rqFKT87yU8x3llmoD/Id +U15smn23t2nsJ27pt0Wzvra6biexjFs082dkq+eNPLlXh/8KtOKfEV+Ac7BA8k50GLPuuK7M1w++lUP frUjPV+/7XT5bDd99mquygs532pYrV785kWvQFXF+Y E1dq4Ybs7M9Am2FefQP/Kh7+FXT52G+kOx8CmLpg21QP27eCmgZ2dR+ga/OuO6B7+K/A59+x2/Z/P0m9 mwp9QihqOPknh+MB8ZBsIz3Ma29h12C/kT+gK90Bq3x+FXb/lzS6jc6Jecw/KnqKcou0hdgn+AvqPfdk e/9hnQN/bEqlYIc7rCssS2r+D+jnn9//BtF051hAhE F0w4Ldju95aTznMGzz2c9QAzD0T1Jjou3Tuch/SrKRb3t0V9Nd663sweoQghZ/sIeDnzS4OBqgWp4/WO +ui6Ued38B/pD0j6CE7hfn9kV+edsP2WD+6v3/M1N26MR738I84Z3FTWM08kSw/qiF91v/H2Pm+8vc+G fEH+jV/1iF+FLhG/nr7Ay0wFB4/xL9cD0Ms40oiVkl 74c5/3/HMlut4NjIr0fZQ+ngvtQt/lS5Wa5JehioePgrX8Gi+Ktqt5QN1K54RDx+I5pS3wJ8HqtX/yqw 5+1cGv+aF0rIvg7ft0r1+zmkvCINqZxkyU820pF33z/Q1+hcbsjw3Imxwv6fi6R/gt7bcwS+qj1Rt5Yt PVvs/1MeFCKzj5461MtfHrGd3bD39a7n8vZkG+de7L aDf+PNp93h/ctf1IHNE/94Hi3bwlweobp8Ny8+CI+HRJHi2t11U/qhlEzT1j0i/h10c4EzxsuSEqsc5E Q+7z/wKx1mvvoecQ7ZjEDeq4AHns/7klX85PZfi+IFLM4kApA259lkqVs38tVVrBm6gopV/F23hmNi/e Uw0j7KlyPph4SqtgzsKi/Miranda+5SJ86YKpyy78Q0cyI hV1n/nqxHxq/V1spHEBGokEDOV+i0gRH2N3tj+Ffc6+OIDtl9Gaar5rXesykarfY07Wz16dnxG8E05xq S/Gu9m4/Mhx7+x1/hvzYg++C+iLT5113hX/zwbjWcL3/khd4j8i78+6hfiS84raZw4bRe3p0b633ZW+N JHdH0eJW7+Yp/Qb6YeJsqDU/xrQtEvl2BIEd/e4oxz st6U70vwv6JwanY0i9wltLeBjmHUG+8He4rf7ux+FfvRx30+CrKaEf9n086lv86Sa4hbKKJ0eafZHnB3 Xe+B1lCs8R6Uys31lpQc+5FZ87EG1vkO2j+CiU7ERw/4fVL90xhjfsX/oZ6N+u/7lRB1z2Bz+7UqkK0z 53JrjqlJs5CdxgZrM/TB7o51jdwh00UA5/bM8nq02z Abzxl+3skJycuwGKvwjuV5U7112Cq+aUvf5y1BB/pOjN+J+MqpK4trfQl1brW45g1R+safR/CrTE/0Z6 I/9/0vpYjz4oq3Jk68PI2iC/ex4Cqx40ue8oXhmG1Vg4sgY88+6p6XmQIBw+GaD0W7EOu/l++m4 NxAms1CQl26RgZdxPliNFxmA/xfjDqjPeDmX/fh57N vxmHPHt/p3xzLfQ24UU+6/8HlquwniR1kdow6Nasiz2Z37uX/V/XPhv+vK++4p878msUO2d71LwvD32g 7cbbrSnyO/MylM5Ipap2Lwg1UL79cEBqhEvJs2rr+jwyuxMyamBi1SqI3oi85t6xcog9LyHrqS/PRyb3 +zsmNf7Q7ZsBm+R35N/uRRQ3KBfxz19U4gBpjuVMFs tvcvKzk/ccF5685eJjAgT86xH7rCde/bHgU2TDlabnklCic0/K1jugzxI2bqi4ZL23opQ3NOBpI4eAXb 1FD5VfeuPtvH/GNYdvZFlvtw+O/BuftIhfZdmF+hfyN/oDfQ+/Spv0+3xkEb/Ka+TaIeJXUU/ErzK/4/ r+ru+U9neK8grf/Qp+BhcaA904bjZua/EN6/d50Pp9 /kI6A4xd4v65U16f87gvEJkBmp+tTF9/jvjVk75+G+6RZ5gtygF+pnrignrIf4K8BaRt+UnIdz6V6IAj JJ6D2T86ynFl/hOYmz2ac9c4J151c9+/Fvwqr+l3PFpH/Ri/hvGL+JUZxi/iV2aO/kxcP5G/kL+Qv5GP +cj32woyG0NsrX/hb0Xi0pTgt7grhDH799w/jvvrhn y7fus3/mx35u4nsgdldJ7w+wa2ixsw/Cqun/Dn2ZCP+zsF+XrrmTdeZxP+HCsplqmrX9Vr5A8spZkL22 ge+s744NUJtXqpXi0Bl4w/C/75mopGDj5pmk1A6co3YJ6EdCFqmQ3k+NVai5yivfe7FcSB5Qhr8/nX1o 5L7vhzHFg5Rxjxm++1feOxtu/3mxYadQ3f+6uo [file] ID Date Data Source [id number] 01/15/2021 08:04:26 AM EDT [facility] Name Value Range Interpretation Code Description Data Tyra rce(s) Supporting Document(s[facility] YMHZHt3vLaMREwIir4FqQaKiDBVcBC3uobu1C5P6pBRaG0NgqADkc0qmY2OzF9IuXIJkBAHQHV0BaSRo jb2 [file] dag sprayer/JQ9EaipKv7x84IgrbSPpek+CCdjNsfhB6tqVHFtkKFoS6WHlWVc/RPekXV2uT6Pz+opTPyiYcgp2 W3hW6GZUT+F6Nq1ptUSNW4fua3wGIwI1/kD/Yaz30s fc3qhk2zfi8ZNE/VlWDGftYrEogqkEG6D621W+JKG/He+XWxNLjIF3uZCmB/OpuyTDvzAC76I/XBN5oj 3ibVhUhC34NW+zBJlZYEC9RZCKfQPbEdZ3tppMqUQfydjHU18sd5NdNp1L62wtpbK/D26iMKkGTHaBrq 0NpJ3Cp0aNEYKOGrF7ItmjL5p3z715hVr/g+UUrj+0 BRrzQSjhmWBU0vN7fey3Jp9W4/IsQKQA9oOBzsWf1u2wl9fSc96/dS8btMzPovuo+7/Fc732/51n/jwG Qa7IuQAdcv17R2ZkQb5u1mw+u1Tlgwn9fcbhe1m23av4l4my5ta6/9yVHW0Gq+E+Mdstr7fA84p72tfe pg79/40NtqsgLE27awwaoC20v4J+366F7xCr7htHcE C+P/3coexxucD5/t05GiKVEyhn25hesoniy+Xm/Tym58c9/w9H5gizQ0zrhobB4UymuOyj++F/qV6c/V 9jtiNMn1I6Hg8tR0HbtuWlv90K6fay4vumdzwxZozeV2SH4Wfo1++m7VrTlrs8rMW/x/g5r95NecYcCS +zS9zeati/QJxo1eTzh7qq3v5/r+PCijvqC+oH7bq5 3msjshMtp775o7/IH3p5bSwnaT+reMenveufMF+u78dhzdvM0E3TK1V/MX3JD5A/Hv6oxy3Buc1ttv8r Bs3rit9Qi1w66Hsm3V6qdyMicvyMvc1reHt5ujp0hbcS0hv5T+6TCkRWu1aCdLewZ3VQpey983F/pZA3 7nZ0eukR+KSrDD0q4mnOfxnrb+w08GrE1yxXx7aF+U F+rXbT+0xMcjv8W9hwJ3Nh78glgB0g6KL2Mexg8Tlria3VSIjh5sp81Rt7hHX1TmPRh/C8vQGdT1nd2L 37Hnr+r1iB22Q8HmrZBA6rqaujUym6gXkSwjxj7a5pqdodzpx/lw47DS4dm8hE280+GE6Xavalv+9nHv C3PHc+x7n3ed/2ScA6i7645qqoP17KP+pCsl608z/N gEq1je6DU5K7T/ccyr212z87NvP8ygO/df1e/4ww6k8bxnZp+211g4igwzx4Hu3h2/KnsL25vgmD+o3/ taoa371/tr26sY+OGngIG3C/ikj7ug7rEMmkcFxczb+4fK395+/cnvj5mkcBB9go7l4a8sLCI7hIE22/ hgZwC5NOe+y4nX0Bit07V/6kYuduKG7NsyTdga1cf2 M5ecdk8yl30Aemc2zZ/5+nPjq9P+a6++Abl4nB7xV+8x8l03vM4a/XxQRvuvvaOqfl/zKOg48vFP0IL2 Rz6zN4x/7T1ltN/2dtV/7E1u7PcLaaFkaxfzmE2AWunj3ZbF97SeKBhcii0pT84rf3qwNy4CM+rXrd/4 4h6bjkb431v8PSakLZ3jN4mvYpHuRc80gTubTB2sw6 062nfUG+wM6I05Y/1A/PO5EC7G/dB0ff18ecp2eh4S8US1LiI5pqn9KqWvkJSSZL79D+bmrUbO0f7fve y//bk87o6dWsivpRkM7c03HnVk2LQv40j4eiwS77Dk0avjuMThhS7vh+i04a7wDq/h+tfczXHpjj6Z7a y9x2suTYsB+xH4aUgd42LV5V4ab0ic/A8v95i0k8jl Tsfubdxv+YwipcP46/CwpnobQ30jNk3UfaB+o35s+gf8LJ4KryF6Gxe88Al06JOMW729xt0WstFKKvzX r059Q/mHVP2lZ+oN7Q1y/CAB0sK214hkD9H+DD8PSrmrjOcZ6c9cgy1nE42hqz7eKQP+rC9vjzM3mh3S t204nejYnEs8LN77o3vzdoegcoenqd/1gef3qm2SJ1 9pi+Fydx4y5/lyydpq9N8ptyPGkzh7k2b9UQU2kcmEr8q2cy/f+OgBHhZI1nBkUsF2JO+bl1E6jorjE4 d9Tp1YK1/t5fpD6Yit83S/4i2ay1t990lE33C9Ehs75GziOr09sncNa84kYbeH4vQp00cda92CiI0yH+ yWJ+cc7zspqMb97jH5Ory5eklKr/Miqmtqs0W+69Xe Yn1s3/kpvBUy9Ac931mYu3AQJ2/G6krKu5MY3w3tlQA0g/Anawa0z2p++52NbVXz8elYz0v7jfo498Z/ ykNlu+Ome0Zld2dz/dTdkZB4n29uKw6M2lPbcf5r317e6GcD22g84P/IH5D/pGdBxtq4I54rY53ug+f6 sK8Sv781ZK/zdO+pRlen60w4ic1Dx+H8oou3uoPq99 xyhXRqaTNvx2bm8if6Tpq/2aFD1iap7epwp889e8M7P9+/5wr7Z6M37G0wB/9Rc78WOmekaztrQseat2 2pY44Ak3z0KAlkSqHkqPNMj+R/2zuqv4XfGQfNT2hqq231cKQByTe+rv+77JXMbW/Q6cUGolx5Y4Y1qY pvfLWka+OraL/rUena11dt7sKEt4j9F93n4yvq0hyr fuiP/6P8rdf+0b2p6rfhjDGv0/kq6Hvn15w+ZdRPtJ+Qs+099ezsbshlYIfAd859iM2j+Am50k5gtbtv VwQ079hNuzV72L79Bak/6qSnbx6FDNl/G1+9ZchfkL+u/P9b2tRDQ6EuSUaTgAtYtSughPMJ44u1dRe0 tLc7/x1sCp8a+JhRoU3U9YvrsLe+QsMw9KFs5hfkn/ HWmEx02b2v6X1z897bKloSW5xtc+OrU+6Z85U3D9t35zmYXS+TrO4U95w3ycA8To3cFHuLh+i3pvy3Me di1MiZ4wxf9Vt0RD55jqUO8bI5c/e+SKddEF86da45s9/53i+Er84+5nu/WFivgK+i4QW7fYTPc6Rbkb kLX+16NacHVjnBv361WI3/NljF1514y9I8br4Lrnrs 9R167/13b1R+10q3uq6Xkwg7wbkTnZsJnu88vl1f/DOzX265u/Jps/CB6fJ9Izevk9bcwei5k95x1KL0 3xQ24ACz1uqd3loi6/nelrzf+//DkoC9cg+yNtYJdJAsVJ90bi9P/OVA1yqtN+a6aEng7h8tx3c+lL8Y cu9F/ylMUQG86SR1knwD+zpcDid0NHX+q79GojC0cc F1fUT4FctlaHGiTK2LbbK+ad1ed413UO1p+Cr8v/LZ1sx80/U7UhmuvaJ+bvMvbk4JnNT4k2k+42Hjq7 pPqwe2e87ligt0W2hA9NsdnuvctACM+EpxG/jT3tpaD3uika97/i4Tk9qpCA+9/rITzaN0AGkpDh7e2l 58hI2p56aGIcGpDUZ9/hG+Dip9In0Vh2OSXq3w9m6b /ga+2tdO+UwmcBeq30XUgulx5audwO7IF5UyrJQbsNzKw6Q10VDsMn8NlrMg4Lb3kyiKnl569EUstbsC MsSrRT0TdTh0fu/vqTSZsTFiy815R3dm+Xe5ZE4Q5LzHlvtc5v/eqzqX6r9JF+Er+Xzg+zsk4eeNK0B9 3TgRvoq+PNV76zaXc8TnPk5Lq/SB+9FAPAtfKYbHxH gm6jF/i9OHHlnpS4450SxkbADryvp55qfBu68Doot+4pY+cf+mR6671m+ifJ9/u/XJ3V6XCbS/YpwT8h peF34MirjhN/nr4ue9+fct1yt/WsgxL78mEDCo1+gJA5QVkZSjs+SvVB4X/kcmWw5O+wk5C+S7aUDji2 +drInrB9oueKgXiGENQkX0GbJM4ni79gm75hWrZi1V Cv66lU05w1BDZfOlGH8I/Ex4O2QbniKm621s6H57inn/Kf4VK31x7bmbE+kav7fV61MddbHc+4uVez+y cuevlRvPVmBvufFsZUL+nMAG5fxlm1jD/J2/TwAxc8AeUL/9u0d+sRoc7sj26+0yr73ryg95U6K+KX/l 63zkyXqR6tzlht8Ik3f+x/Ku90q14V13xV/cW3Yj/2 l27gcg4zvepevB4ywk28EBjo/JBVclgI1K+8Gor2h/35dZvB+IzgrVcgmpye377q33r8r3Z44geoTRtF iAyGG3ny1Zj7GD/v2p3Xxdc1+Ti9Ldxq7gB+x9uW+bHc/Th5KTc2wKVE0gQBOV1v34gq+0/dnv+5S9Gf pyQbYjWh1Q/bryDfbafZ+yd+EhMqzg0xYn7Hd26wZ8 lm++fW+/gJsh0d41WxeeS2Zu6Z6dmFS/AF4uVBgst8965Wj+eqe6ziNNk1/5wtq1kanN4a9wIgU+sL7b bc+f0fwR10tCqlzpU/76vf+a3+gbl1eFrm1p6W120d1094BATWnqGGm6otq2MilbfW3dpqZB9/j2Zm+w dF9t6d6p+JZmb6+T5dh20le5/iBtkg6bIrzy8tHM0P 8Bput4xGKikC/L2GdW2rU1z81/ZOO+XzC9H/R3S+1Zu/R+8JSvn/V+7FwxpLJX71GH1id2XGW+UHNZ7w cqODHpXY3HS3C/0RDl5S9Q7FNs+82Hhhqe2tWO+To6VfU62U/NE4HquTYpg0A402QmfByT9eSvZ5eHEV t/pTGveuN/zDeos2vgB2DX50zA8RwoZ+Rj/v4F9lQO D7YD1Laz9B/7kT93/w3etpDt4i3HY9W6Fjc20yT6C/iozb2+/qlmd5mWcqeDedvl8DQltC3hx0Y+RP1E /KVj3Gr6u777yu85hu4mTm5PpjvimJ/fb+tMzQX8jy5pG+XddiD2x4F0uEwrB7Gy0k9EBj3thtlQft6p vSbvZ0pp0qbg+3zs4xjlPMqwzbaoqo1sOj02TwQwjC wnrV43ujOOX3U61v+7qv2Nq8aaPpp87j72uU3lKyke4bv91g04eR4153x/eMrvOubtfs/gwldRrqi/77 jd4xhVKmXl4n4Mbj39u7689x0GqhoPcob8Sl7rH4v/K2UTfa3atMr3ZBZ8+z2D9/s9g/j8cXR3Zf62o5 9H3u/wccbYt45s7dNp547CK47WBu21K9u+qql+Py+c st02A+5Z7fuo7/yVI3/umP238cxJ/JVH/urdvPqWK+oa0hbiv40L4n5AihieW0wu90/bff51u++P3O77 W0y1RZj76G1n/X9bs2rD+1bs3ylykp7M7P/UF9Tj+vp9n+J+22h06LDqjP/6Et64jvxx5/mE2ssuaxyJ vkP+fnoQhku2hjs+vzplyF+Jb729zG26nhe/3+f4uN /nuL6/kt5xv8/x0dD+2hbW18xde/GO2TKvvBpe9h/K117hq+z44W7JJ4/eC3Aq50fk2kh52nxKGB56u/ x26syl1+ibiaA684ps784+1Hg5W8npJ0bPTLq2s0/yed+H+fN2n9B0604m9vbOpieaa8/iya3V1BM9ba /AU57gKp2/cnx/5fj+yvH9la/1eS8A53ak+c7Nb82k /OzrPu/9teg1BO/4/dw5emMH06WNnW279ckw8cf2gt7s7dwc14fyjrgcO3Ziwi4Qtk1tGCj2oxIJv6ys t25gi4NgeJsruV9dQ3KYhbZKN21g8rUz1BNxP0wyWiqk+xy1v8+/U85sxuRoMuM25KnrKXL4NSnu5ysB uc/5R01ntbxpinM6NijUZ4Gcsc+S/CzlB4Ae7/1R7/ HaeLY5Qk1c0YuBc/MxmVxo2ykQpx/YShHgfsjfRn0zxfv0QM/T0ZG25fkb+weY/+2C9P102d5fp/md5n 2eR/zw+0yxbySZcC23dngBNHfTmoMcktehY8V0m29dE2bwk3kK+6vw7YpQH6/guSt5gyaq0Zhe39KY4r m/MN48jE5kEgmAkxyML2UiHZf+PW5RTVrATSibo1Fe w4TVUfNCTzW5tmVtcBlm8RcWZwBlWB7tYZkAaDypleLJXZBaWJdKNUp1DAG5tWCf77yU2dxHSLx3zUQf uUXprOK9b2C9n+dxCbs/Mu1F3bk/lQ17zJEHuh4xr/5uqY8p9QU9s97M4R5A9/jN8iDs/oE1wkt4rQZa YZz4hcD4wW50PJSurNUWn8XbrdMpLPfY4vV3mwG1M3 dY37Cm37aYxUeE6Nj6FUS0bn8LhfA8U6SMdYkZeEuqg6jG2DFo5MZmwBs3GTN6DPkN3eC/AExyAV6lw7 dD9nke/dHCtc/lkZnuwnp4u/1F0ia+nCml+thSFeKi6bqs+0O2L/T9CjTjMcIj57I+z+evsC0YoGrsiX Ma8aA4lW2JwL0y8uvsme5m+shG8eEM/fpgf+j2JeYe gSbTPs+jySz08ks893F3DZfA88Pnz7/y6ZkQ5hFI7/hal14V9se2So+b77Y7wj/m9B9Zq0/x2RN59Tkh iTX1GGBW69v3afMk13p7fK0YlIe00uqsOCvUnN9yZ62enE1WYMG0VB+zt0wIBe/eVrpHk8vVlf/n8SHE MY6Qyu9+mYv2o95YB+bbZ8SK6nNVhjJJqJbCDRX9UZ phNwg2ulcE6jycuAb1VwSkO2JLpQLEd/uXH16E8HPmCbMKpv7wIio1JLdg81+xrFe8GvKAmNRGho5/S8 UMAeOiu5ueDWhb0uE3QYtt6xRjZpoiOhEZb9TiWZg1JjSX6xQEl3qDltpigdlLIS0MdL5FPRdbmjjcxC IbM5viNfs1v1Ki1UF+233QVcYKXPDwLBTuGUFzYXS6 YL55MHWtWwxJrsi7HzJ0Gxg1mRHimKCaDJ7q0zELfH2jHFm5FL+OYFDPpDTGgXBiTAzhxAiX/lAe1qwx kVoEX406WFSE2Mu8eeypz7BloJ5E6lGHyGF3bhkUgFiT6MTi06N2Fq6HL2SWqDgrJS08PC1mlukeYAgM jHreJS3ZJxD+ppV7R5/CiboHT+HU4d0mzSQqfwctSO OyOMlVns8hcibfVWy6cOQ6HMQFR/XJVLYuKzPnfbOodEqqdUL8ke7MrWeYZUTXZ2/yz3X36XBeul3IA4 rQA58NuGpXnXMCOp9TolgT24OgeKI1a9WHjZ/mzDACSg1wn4TAGrJupnDNHV0Gkym6Af8ovQy12d2qYZ BVEB9zXtrMBJCj2ZggvYyZCOKZcXJKG6b2iGG+jdI6 [file] ID Date Data Source [id number] 01/15/2021 08:03:04 AM EDT [facility] Name Value Range Interpretation Code Description Data Tyra rce(s) Supporting Document(s) [facility] UASIAy8oDrCSUfPag4WmPzYgFVFpWB3wnii4O6N1cLTxO6BewVEbn7baK2RjJ6VvXIAjSBIKJQ2ZqRHb jb2 [file] 3f3bfo/bt9Im/link assembler//nX/4sesreP/vk09kuOr6/7sPXLzu+deem03xl8n179r6xgyp/N/00udi1dw8/y0 ///qe//uuNd3878//99t2f/vzn7//61x++//M/vH3x/U9/+uHPb//632T+69+//eWnN/u1+M9b4bmDln mAz0NzevwqHiTUHQ11Zgdsp6//Bw+4exySjll801tQ 23w97R+8X7/9PwDjm+wB1z9e/+wCf73h1Ky//QS08QsztP7q4y8UOMNB4/W57e14m37pmiZJdZ/w8Yd/ /+Ymp4xRt952vdTpak/vv/zy/dv/9fXrWn/1s+G2n/1wERc58ga32HD6/xql8ee++B73lKU6gIdc6J7x TuzBvvvhp//8x7e/fv+fP/xs76+421a75ac/9CMvUm gPJj5+ufczd9/+9NN//vDX//e/oSnfpoo648nGp1/Y/Rv212x/fPz27d/+1+vc//EQv420++j489lb2z 4e7F8+/cciOg5Tc8lqQnn6+GX76wJ9g/orX8CN0yrcj402CewTvo/t2wiK//M0YvcKgu4+6tPb9//fD/ /xX2+e58qp/OrdNx9/dTcqet1/Z78911/+69//4tf7 SvzTDz9+/+ynUbB8D/zz7//XH7//jz99/3Cv8rYpXoJYA/3y/88dtfqf//t//e9jxo9/+cuPn/1Gxy9+ sMf75V/++AuHz7QXI7UEOd261Sr/+dOf/by6n95dX9K14sQ/4sdBLZI//o//fM27f/vs82/wo/t7Sd+8 HsPffP8/fniTt7/8+3bUIs5XCS/u9G/jXl9auD/vX9 sv9/B6O35vC//4fSii6RjGjn7s4pG/zvuqjYuN8629/vnXv//h2dqPh0VC4atZ31M+f/CphkCKZD0ul5 AkJOJrBfVyCR5wspghILQzEV8cxhp1O5NvsZyhAXwMKEHlOk2tcLRhGK2XNHG7KGofYTHeZMBgS7FrmD 6rY48cjLLpJnWkUGYMKV0MwwV4SIK4DFA3HCCdTsYn DYSqQK66YMGqHKGJDh5xmtZeBoyDMiAtJI5fprl5L0T3xIYaJ416zIchneVsED3Bx5YdnRDvOR9ZpSRa oFUsCAShHGOhA1xik6MvGOstMKKKXe1cngPgJedLOjSqLO3ymbk5M2C9xPckdlJiTFSDHKwbPanzQC3y jDbswpcpR4HdqJNzCARfO0BoIUPgx59NZAHxIJwQFn YeBsPmGJB1BOnuNoceMrWlMHGwQBXnOGIhWD5LjKUfHNOgFCQSZIkeUoniUZLswG1emXVMs5FlLB3NCB tHE9WPFAPHKLdHLNDVMZB4VPHrSZGrIY5MbRLbALI0JOkGYXNGSRqVVGqtHdSgs1A8JIJjN3LuONXiow YbJEGXMXqoFuwxGI8fdFihnalxR8RbnWFoOGWVAKLs FEFtIUVgFUCqC9Igk3R1D0IpIYgACOJIFJvFQGsmQoH0y10fljWWRMPiUCMtFE5+ZC9xl0FcFu5LGQQe CH0fpfe9ST0KuODiRD3OFGgleaHvO1knucKfScJvGMECEB1lW9CcbL65UUK+XgQwOV3cuqf5dxUrCaEe EBAtBDGoORKyACqdNICeUGMzIDPfKDP4NQX5UGHnXr HxFDLqRlKuAWShQADpLEChknNPULDpRNS1WVy4UyOuTWGiAJRcKEhfODEpDGE8DEDsOEAlFJKnFH2hPa EsUECgFBQeJHGeXyG7ZbZmKnKCMRKeRFQpCQLoZeHoNUThXDNkIAqnQRJaEFWtFQm3YPOcIYItVT2pGi DsWCKyYMGvYOEkZABoJONhyiBHZPDgDCLnNVZ4ZGZt WPIsCHSmTTnxOCEbZJKpCGM4XJMuFWBrCO3dOzUlNRUxXZF4ItVrBHRyGZNfirDJRNEzEHMtFTV7SWAe TQGkPYXqDKsrUEWaYKTwViH1RYEcOCPgPW0jEaWmZMGbSIZ2TANhORPvNWPkmmSDHWQgSDRtXCl5NyBl MOGhOPXnKNmoSTNvIZIsDTscSDDvYDLeVR0qJmGyHD IoYEGqGSJuJAOeAEQjhdEVYNDdNSXzWZB9TtFnOJFcQAZxTTavEKOtQZGvVSE5OPFwRRNaHZ7zAnWdTP NcRjX0KsCoZPZqYUWhtdAZWYErXWEqAJWnTWFxWZBuBGLtFWzzFHGoXTJhBsG4LIJeESTzNN7xUjNoPF CkFWI4ZXJeETZyQRRcspWSPJWvNWDkLRQeOTH9MWIt LREyYQj5xtEccZIoPvp1Wf7TaUahGBI8Lq5LxoThXAXjLXZDUj3Xx669AFGgBJCCXyx+PgpzdGFydHhy BSUZJzPxOpjOQMXAW1F= ID Date Data Source [id number] 01/15/2021 08:05:36 AM [facility] Name Value Range Interpretation Code Description Data Tyra rce(s) Supporting Document(s) Glucose [Mass/volume] in Capillary blood by Glucometer 305 mg/dL 70- 140 [facility] ID Date Data Source [id number] 01/15/2021 04:56:00 AM [facility] Name Value Range Interpretation Code Description Data Tyra rce(s) Supporting Document(s) Leukocytes [#/volume] in Blood by Automated count 11.7 10*3/uL 4-10 [facility] Erythrocytes [#/volume] in Blood by Automated count 2.90 10*6/uL 4.1- 5.3 L [facility] Hemoglobin [Mass/volume] in Blood 8.2 g/dL 11.5-15.5 [facility] Hematocrit [Volume Fraction] of Blood by Automated count 24.9 % 3 6-45 L [facility] Erythrocyte mean corpuscular volume [Entitic volume] by Auto mated count 85.6 fL 80-96 [facility] Erythrocyte mean corpuscular hemoglobin [Entitic mass] by Automated count 28.4 pg 27-33 [facility] Erythrocyte mean corpuscular hemoglobin concentration [Mass/volume] [facility] 33.1 g[facility] [Ratio] by Automated count 14.0 % 11.5-14.5 [facility] Platelets [#/volume] in Blood by Automated count 149 10*3/uL 150-400 L [facility] Differential cell count method - Blood [facility] Neutrophils/100 leukocytes in Blood by Automated count 84 % [facility] Lymphocytes/100 leukocytes in Blood by Automated count 10 % [facility] Monocytes/100 leukocytes in Blood by Automated count 6 % [facility] Eosinophils/100 leukocytes in Blood by Automated count 0 % [facility] Basophils/100 leukocytes in Blood by Automated count 0 % [facility] Neutrophils [#/volume] in Blood by Automated count 9.88 10*3/uL 1.8-7 .0 H [facility] Lymphocytes [#/volume] in Blood by Automated count 1.12 10*3/uL 1.2-4 .0 L [facility] Monocytes [#/volume] in Blood by Automated count 0.64 10*3/uL 0-0.8 [facility] Eosinophils [#/volume] in Blood by Automated count 0.01 10*3/uL 0-0.5 [facility] Basophils [#/volume] in Blood by Automated count 0.04 10*3/uL 0-0.2 [facility] Nucleated erythrocytes/100 leukocytes [Ratio] in Blood by Automated count 0 /100{WBCs} 0-0 [facility] ID Date Data Source [id number] 01/15/2021 05:16:47 AM EDT [facility] Name Value Range Interpretation Code Description Data Tyar rce(s) Supporting Document(s) Bicarbonate [Moles/volume] in Serum 22 mmol/L 22-29 [facility] Chloride [Moles/volume] in Serum or Plasma 104 mmol/L 98-107 [facility] Creatinine [Mass/volume] in Serum or Plasma 2.44 mg/dL 0.50-0.90 H [facility] Glucose [Mass/volume] in Serum or Plasma 335 mg/dL 70-140 H [facility] Potassium [Moles/volume] in Serum or Plasma 4.1 mmol/L 3.4-5.1 [facility] Sodium [Moles/volume] in Serum or Plasma 140 mmol/L 136-145 [facility] Urea nitrogen [Mass/volume] in Serum or Plasma 46 mg/dL 8-23 H [facility] Anion gap 3 in Serum or Plasma 14 mmol/L 8-15 [facility] Osmolality of Serum or Plasma by calculation 315 mosm/kg 275-300 H [facility] Creatinine/Urea nitrogen [Mass Ratio] in Serum or Plasma 19 [facility] Calcium [Mass/volume] in Serum or Plasma 8.8 mg/dL 8.8-10.2 [facility] Glomerular filtration rate/1.73 sq M pre dicted among non-blacks [Volume Rate/Area] in Serum or Plasma by Creatinine-based formula (MDRD) 19 mL/min/1.73m2 >60 L [facility] Glomerular filtration rate/1.73 sq M pre dicted among blacks [Volume Rate/Area] in Serum or Plasma by Creatinine-based formula (MDRD) 22 mL/min/1.73m2 >60 L [facility] ID Date Data Source [id number] [facility] Value [facility] Interpretation Code Description Data Tyra rce(s) Supporting Document(s) Magnesium [Mass/volume] in Serum or Plasma 2.1 mg/dL 1.6-2.4 [facility] ID Date Data Source [id number] 01/15[facility]2021 05:16[facility] Name Value Range Interpretation Code Description Data Tyra rce(s) Supporting Document(s) Phosphate [Mass/volume] in Serum or Plasma 3.6 mg/dL 2.5-4.5 [facility] ID Date Data Source [id number] 01/15/2021 05:16:47 AM [facility] Value Range Interpretation Code Description Data Tyra rce(s) Supporting Document(s) Troponin T.cardiac [Mass/volume] in Serum or Plasma 0.29 ng/mL <0.01 [facility] No Significant Change since last result called ID Date Data Source [id number] 01/14/2021 10:46:01 PM [facility] Value Range Interpretation Code Description Data Tyra rce(s) Supporting Document(s) History and Physical [facility] [id number] lbm [file] 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 CHARGER/[id number] [file] [id number] ID Date Data Source [id number] 01/14/2021 10:07:26 PM [facility] Name Value Range Interpretation Code Description Data Tyra rce(s) Supporting Document(s) Glucose [Mass/volume] in Capillary blood by Glucometer 289 mg/dL 70- 140 H [facility] ID Date Data Source [id number] 01/19/2021 09:43:04 AM [facility] Service Cmnt XXX-Imp : SNGMicroorganism XXX Cult : No growth 5 days Name Value Range Interpretation Code Description Data Tyra rce(s) Supporting Document(s) ID Date Data Source [id number] 01/14/2021 10:37:42 PM [facility] Name Value Range Interpretation Code Description Data Tyra rce(s) Supporting Document(s) Troponin T.cardiac [Mass/volume] in Serum or Plasma 0.33 ng/mL <0.01 [facility] No Significant Change since last result called ID Date Data Source [id number] 01/14/2021 09:53:07 PM [facility] Name Value Range Interpretation Code Description Data Tyra rce(s) Supporting Document(s) Color of Urine [facility] Clarity of Urine [facility] Specific gravity of Urine by Refractometry automated 1.009 1.003 -1.030 [facility] pH of Urine by Automated test strip 5.0 5.0-8.0 [facility] Protein [Mass/volume] in Urine by Automated test strip Neg [facility] Glucose [Mass/volume] in Urine by Automated test strip Neg [facility] Ketones [Mass/volume] in Urine by Automated test strip Neg [facility] Bilirubin.total [Presence] in Urine by Automated test strip Negative [facility] Hemoglobin [Presence] in Urine by Automated test strip Neg [facility] Leukocyte esterase [Presence] in Urine by Automated test strip Negative [facility] Nitrite [Presence] in Urine by Automated test strip Negati [facility] Leukocytes [#/area] in Urine sediment by Automated count 1 /HPF 0 -5 [facility] Erythrocytes [#/area] in Urine sediment by Automated count 1 /HPF 0-3 [facility] Service comment [facility] Bacteria [#/area] in Urine sediment by Automated count Non e [facility] Epithelial cells.squamous [#/area] in Urine sediment by Auto mated count 2 /HPF None [facility] Hyaline casts [#/area] in Urine sediment by Microscopy low p ower field 4 /LPF None [facility] Crystals.amorphous [#/area] in Urine sediment by Microscopy high power field None [facility] ID Date Data Source [id number] 01/14/2021 09:05:19 PM EDT [facility] Name Value Range Interpretation Code Description Data Tyra rce(s) Supporting Document(s) Consultation [facility] [id number] lbm [file] [id number]= ID Date Data Source [id number] 01/19/2021 09:43:04 AM EDT [facility] Service Cmnt XXX-Imp : R ACMicroorganism XXX Cult : No growth 5 days Name Value Range Interpretation Code Description Data Tyra rce(s) Supporting Document(s) ID Date Data Source [id number] 01/14/2021 06:26:32 PM [facility] Name Value Range Interpretation Code Description Data Tyra rce(s) Supporting Document(s) Glucose [Mass/volume] in Capillary blood by Glucometer 395 mg/dL 70- 140 H [facility] ID Date Data Source [id number] 01/14/2021 06:53:26 PM [facility] Name Value Range Interpretation Code Description Data Tyra rce(s) Supporting Document(s) Hepatitis C virus Ab [Presence] in Serum or Plasma by Immuno assay Non Reactive [facility] No serological evidence of active infect ion. If recent exposure is suspected, test for HCV RNA. ID Date Data Source [id number] 01/16/2021 02:17:35 PM [facility] Name Value Range Interpretation Code Description Data Tyra rce(s) Supporting Document(s) Nuclear Ab Pattern Homogenous [Titer] in Serum <80 [facility] Nuclear Ab pattern.speckled [Titer] in Serum <80 [facility] Nuclear Ab pattern.rim [Titer] in Serum <80 [facility] Nuclear Ab pattern.nucleolar [Titer] in Serum <80 [facility] ID Date Data Source [id number] 01/14/2021 06:46:50 PM T [facility] Name Value Range Interpretation Code Description Data Tyra rce(s) Supporting Document(s) Troponin T.cardiac [Mass/volume] in Serum or Plasma 0.29 ng/mL <0.01 [facility] No Significant Change since last result called ID Date Data Source [id number] 01/14/2021 02:10:26 PM [facility] XR CHEST FRONTAL ONLY [id number] RESULTI nterpreted by:Davida Hawley MDINDICATION: sob COMPARISON: No PriorTECHNIQUE: AP upright portable chest radiograph. FINDINGS:Linear opacities in left retrocardiac space. There is no pneumothorax. The cardiomediastinal contour is normal. The visualized osseous structures are intact. Sternotomy wires and mediastinal clips noted.IMPRESSION:Linear opacities in left retrocardiac space, which could represent atelectasis. However, an underlying infection cannot be excluded.This document has been electronically signed by Mohsen Rodriguez MD on 01/14/2021 2:08 PM Name Value Range Interpretation Code Description Data Tyra rce(s) Supporting Document(s) ID Date Data Source [id number] 01/14/2021 02:28:27 PM [facility] Value Range Interpretation Code Description Data Tyra rce(s) Supporting Document(s) Prothrombin time (PT) 16.2 s 12.5-14.9 H [facility] INR in Platelet poor plasma by Coagulation assay 1.28 [facility] Routine intensity oral anticoagulation I NR is typically 2.0-3.0. Target INR must be clinically individualized. ID Date Data Source [id number] 01/19/2021 07:13:25 AM [facility] Value Range Interpretation Code Description Data Tyra rce(s) Supporting Document(s) ABO and Rh group [Type] in Blood [facility] Blood group antibody screen [Presence] in Serum or Plasma [facility] Performed at [facility], [id number] from 6A at 1005 on 01/17/21 by 2067 Blood bank comment [facility] ID Date Data Source [id number] 01/14/2021 12:52:22 PM [facility] Value Range Interpretation Code Description Data Tyra rce(s) Supporting Document(s) Troponin I.cardiac [Mass/volume] in Blood 3.11 ng/mL 0.00-0.08 H [facility] ID Date Data Source [id number] 01/14/2021 12:52:22 PM [facility] Value Range Interpretation Code Description Data Tyra rce(s) Supporting Document(s) pH of Venous blood 7.43 7.36-7.41 H [facility] Carbon dioxide [Partial pressure] in Venous blood 40 mmHg 40-45 [facility] Oxygen [Partial pressure] in Venous blood 26 mmHg [facility] Base excess standard in Venous blood by calculation 2 mmol/L [facility] Oxygen saturation Calculated from oxygen partial pressure in Venous blood 49 % 60-85 L [facility] Lactate [Moles/volume] in Venous blood 1.5 mmol/L 0.5-2.2 [facility] Bicarbonate [Moles/volume] in Venous blood 27 mmol/L [facility] ID Date Data Source [id number] 01/14/2021 12:48:40 PM EDT [facility] Name Value Range Interpretation Code Description Data Tyra rce(s) Supporting Document(s) Leukocytes [#/volume] in Blood by Automated count 12.7 10*3/uL 4-10 H [facility] Erythrocytes [#/volume] in Blood by Automated count 2.93 10*6/uL 4.1- 5.3 L [facility] Hemoglobin [Mass/volume] in Blood 8.3 g/dL 11.5-15.5 L [facility] Hematocrit [Volume Fraction] of Blood by Automated count 24.8 % 3 6-45 L [facility] Erythrocyte mean corpuscular volume [Entitic volume] by Auto mated count 84.5 fL 80-96 [facility] Erythrocyte mean corpuscular hemoglobin [Entitic mass] by Automated count 28.2 pg 27-33 [facility] Erythrocyte mean corpuscular hemoglobin concentration [Mass/volume] by Automated count 33.3 g/dL 32.0-[facility] width [Ratio] by Automated count 13.8 % 11.5-14.5 [facility] Platelets [#/volume] in Blood by Automated count 159 10*3/uL 150-400 [facility] Differential cell count method - Blood [facility] Neutrophils/100 leukocytes in Blood by Automated count 83 % [facility] Lymphocytes/100 leukocytes in Blood by Automated count 9 % [facility] Monocytes/100 leukocytes in Blood by Automated count 7 % [facility] Eosinophils/100 leukocytes in Blood by Automated count 0 % [facility] Basophils/100 leukocytes in Blood by Automated count 1 % [facility] Neutrophils [#/volume] in Blood by Automated count 10.49 10*3/uL 1.8- 7.0 H [facility] Lymphocytes [#/volume] in Blood by Automated count 1.15 10*3/uL 1.2-4 .0 L [facility] Monocytes [#/volume] in Blood by Automated count 0.93 10*3/uL 0-0.8 H [facility] Eosinophils [#/volume] in Blood by Automated count 0.01 10*3/uL 0-0.5 [facility] Basophils [#/volume] in Blood by Automated count 0.07 10*3/uL 0-0.2 [facility] Nucleated erythrocytes/100 leukocytes [Ratio] in Blood by Automated count 0 /100{WBCs} 0-0 [facility] ID Date Data Source [id number] 01/14/2021 01:21:20 PM [facility] Name Value Range Interpretation Code Description Data Tyra rce(s) Supporting Document(s) Lipase [Enzymatic activity/volume] in Serum or Plasma 14 U/L 13-6 0 [facility] ID Date Data Source [id number] 01/14/2021 01:21:20 PM [facility] Name Value Range Interpretation Code Description Data Tyra rce(s) Supporting Document(s) Albumin [Mass/volume] in Serum or Plasma by Bromocresol green (BCG) dye binding method 3.5 g/dL 3.5-5.2 [facility] Bilirubin.total [Mass/volume] in Serum or Plasma 1.0 mg/dL <1.2 [facility] Calcium [Mass/volume] in Serum or Plasma 8.9 mg/dL 8.8-10.2 [facility] Chloride [Moles/volume] in Serum or Plasma 102 mmol/L 98-107 [facility] Creatinine [Mass/volume] in Serum or Plasma 2.01 mg/dL 0.50-0.90 H [facility] Glucose [Mass/volume] in Serum or Plasma 428 mg/dL 70-140 H [facility] Alkaline phosphatase [Enzymatic activity/volume] in Serum or Plasma 82 U/L 35-104 [facility] Potassium [Moles/volume] in Serum or Plasma 4.0 mmol/L 3.4-5.1 [facility] Protein [Mass/volume] in Serum or Plasma 5.9 g/dL 6.4-8.3 L [facility] Sodium [Moles/volume] in Serum or Plasma 138 mmol/L 136-145 [facility] Aspartate aminotransferase [Enzymatic activity/volume] in Serum or Plasma 19 U/L <32 [facility] Urea nitrogen [Mass/volume] in Serum or Plasma 40 mg/dL 8-23 H [facility] Osmolality of Serum or Plasma by calculation 314 mosm/kg 275-300 H [facility] Creatinine/Urea nitrogen [Mass Ratio] in Serum or Plasma 20 [facility] Bicarbonate [Moles/volume] in Serum 25 mmol/L 22-29 [facility] Alanine aminotransferase [Enzymatic activity/volume] in Seru m or Plasma 15 U/L <33 [facility] Anion gap 3 in Serum or Plasma 11 mmol/L 8-15 [facility] Glomerular filtration rate/1.73 sq M pre dicted among non-blacks [Volume Rate/Area] in Serum or Plasma by Creatinine-based formula (MDRD) 24 mL/min/1.73m2 >60 L [facility] Glomerular filtration rate/1.73 sq M pre dicted among blacks [Volume Rate/Area] in Serum or Plasma by Creatinine-based formula (MDRD) 28 mL/min/1.73m2 >60 L [facility] ID Date Data Source [id number] 01/14/2021 01:21:20 PM [facility] Value Range Interpretation Code Description Data Tyra rce(s) Supporting Document(s) Troponin T.cardiac [Mass/volume] in Serum or Plasma 0.29 ng/mL <0.01 [facility] Results called to and read back by RN [phone] at 1320 by 1519 ID Date Data Source [id number] 01/14/2021 01:21:20 PM [facility] Value Range Interpretation Code Description Data Tyra rce(s) Supporting Document(s) Magnesium [Mass/volume] in Serum or Plasma 2.1 mg/dL 1.6-2.4 [facility] ID Date Data Source [id number] 01/14/2021 05:43:56 PM [facility] Value Range Interpretation Code Description Data Tyra rce(s) Supporting Document(s) Natriuretic peptide.B prohormone N-Terminal [Mass/volu me] in Serum or Plasma 32067 pg/mL <125 H [facility] ID Date Data Source [id number] 01/14/2021 06:42:57 PM [facility] Value Range Interpretation Code Description Data Tyra rce(s) Supporting Document(s) Procalcitonin [Mass/volume] in Serum or Plasma 0.20 ng/mL <0.10 H [facility] (NOTE) < 0.25 ng/mL Bacterial infec tion unlikely,particularly lower respiratory tract infections.0.25 -<0.50 ng/mL Low risk for progression to severe sepsis/septic shock. Localized infection is possible. Measurement done early (<6 hours) after systemic process starts may still be low.0.50 - 2.00 ng/mL Moderate risk for progression to sepsis/septic shock. > 2.00 ng/mL High risk for progression to sepsis/septic shock. ID Date Data Source [id number] 01/14/2021 05:54:30 PM EDT [facility] Name Value Range Interpretation Code Description Data Tyra rce(s) Supporting Document(s) Hemoglobin A1c/Hemoglobin.total in Blood by HPLC 9.3 % 4.0-6.0 H [facility] (NOTE)<5.7% Average risk of diabetes (ADA)5.7-6.4% Increased risk of diabetes(ADA)>/= 6.5% Diagnostic for diabetes(ADA) Glucose mean value [Mass/volume] in Blood Estimated fr om glycated hemoglobin 220 mg/dL <126 H [facility] ID Date Data Source [id number] 01/14/2021 01:45:14 PM EDT [facility] Name Value Range Interpretation Code Description Data Tyra rce(s) Supporting Document(s) ABO and Rh group [Type] in Blood [facility] Blood bank comment [facility] ID Date Data Source [id number] 01/14/2021 08:05:00 AM EDT [facility] Name Value Range Interpretation Code Description Data Tyra rce(s) Supporting Document(s) SARS-CoV-2 (COVID 19) NEGATIVE - [facility]COVID19[facility] ordered by [facility] a nd reported by [facility]. ID Date Data Source [id number] 01/11/2021 05:34:00 AM EDT [facility] Imaging Services Department Imaging Report [address] [place] [id number] %(RAD)RES..mtdd.print.filter("line") Name: OXANA CLANCY : 1950 Age/Sex: 70F Ordering Provider: Andre Streeter, Med Rec #: [id number] Reg Status: DEP REF Room #: Date of Service: 01/10/21 Report Number: [id number] cc:Andre Tompkins Reason, DO Send Report To: [id number] US/US Thyroid Ultrasound Exam Reason for exam: NONTOXIC DIFFUSE GOITER FINDINGS: The right thyroid lobe measures 4.9 x 2.6 x 2.2 cm. The left thyroidlobe measures 4.8 x 2.3 x 2.3 cm. Isthmus measures 0.8 cm. Nodules are identified bilaterally. First nodule on the right measures 0.9 x 0.9 x 0.9 cm. Second measures 0.6 x 0.7 x 0.6 cm. Third measures 1.1 x 0.8 x 1.6 cm. There is a fourth nodule measuring 1.4 x 1.1 x 1.0 cm. In the left thyroid lobe there are three nodules. First measures 2.4 x 2.1 x 2.5 cm. Second measures 0.7 x 0.5 x 0.6 cm. Third measures 0.4 x 0.3 x 0.4 cm. IMPRESSION: Bilateral thyroid nodules. Continued follow up recommended. OVERALL ASSESSMENT OF FINDINGS: TI-RADS CLASSIFICATION: 3 (3 points) DESCRIPTION: Mildly suspicious. TI-RADS Recommendation: FNA if >or= 2.5 cm; Follow if 1.5-2.4 cm in 1,3 and 5 years. ACR TI-RADS recommendations TR5 (=7 points) - FNA if = 1cm, follow-up if 0.5 - 0.9 cm every year for 5 years TR4 (4-6 points) - FNA if = 1.5cm, follow-up if 1 - 1.4 cm in 1, 2, 3 and 5 years TR3 (3 points)- FNA if = 2.5cm, follow-up if 1.5 - 2.4 cm in 1, 3 and 5 years TR2 (2 points) & TR1 (0 points) - No FNA or follow-up REPORT DICTATED BY TREVOR YOUNG, REVIEWED AND SIGNED BY DR. HERNÁNDEZ. REPORT SIGNATURE ON FILE Reported By: Krunal Hernández DO <Electronically signed by Krunal Hernández DO> 01/11/21 1109 Dictation Date/Time: 01/10/21 7792 Transcribed Date/Time: 01/11/21 0531 Bathing Suit Maker: EFRAÍN Name Value Range Interpretation Code Description Data Tyra rce(s) Supporting Document(s) ID Date Data Source [id number] 12/15/2020 09:22:00 AM EDT [facility] ([facility]) Name Value Range Interpretation Code Description Data Tyra rce(s) Supporting Document(s) Glucose [Mass/volume] in Capillary blood by Glucometer 165 mg/dL 80-115 Above high normal [facility] ([facility]) ID Date Data Source [id number] 12/15/2020 07:00:00 AM EDT [facility] ([facility]) Name Value Range Interpretation Code Description Data Tyra rce(s) Supporting Document(s) Glucose, Fasting 94 mg/dL 70-100 Normal (applies to non-numeric results) [facility] ([facility]) Creatinine For GFR 2.72 mg/dL 0.55-1.30 Above high normal [facility] Blood Urea Nitrogen 53 mg/dL 7-18 Above high normal [facility] Glomerular Filtration Rate 18.6 Below low normal [facility] <content>Units are mL/min/1.73 m2</content>
<content></content>
<content>Chronic Kidney Disease Staging per NKF:</content>
<content></content>
<content>Stage I & II GFR >=60 Normal to Mildly Decreased</content>
<content>Stage III GFR 30- 59 Moderately Decreased</content>
<content>Stage IV GFR 15-29 Severely Decreased</content>
<content>Stage V GFR <15 Very Little GFR Left</content>
<content>ESRD GFR <15 on SOCK LINING STITCHER</content>
<content></content> Sodium Level 138 meq/L 136-145 Normal (applies to non-numeric res ults) [facility] ([facility], ) Potassium Serum 3.8 meq/L 3.5-5.1 Normal (applies to non-numeric results) [facility] ([facility]) Chloride Level 99 meq/L 98-107 Normal (applies to non-numeric r esults) [facility] ([facility]) Anion Gap 10 meq/L 8-16 Normal (applies to non-numeric resul ts) [facility] ([facility]) Calcium Level 9.7 mg/dL 8.8-10.2 Normal (applies to non-numeric re sults) [facility] ([facility]) Carbon Dioxide Level 29 meq/L 21-32 Normal (applies to non-num [place] results) [facility] ([facility]) ID Date Data Source [id number] 12/12/2020 10:00:00 AM EDT [facility] Name Value Range Interpretation Code Description Data Tyra rce(s) Supporting Document(s) SARS-CoV-2 (COVID-19) RNA [Presence] in Respiratory specimen by ALLAN with probe detection Not Detected [facility] This lab was ordered by [facility] and reported by [facility]. ID Date Data Source [id number] 09/20/2020 03:15:00 PM EST [facility] Name Value Range Interpretation Code Description Data Tyra rce(s) Supporting Document(s) Hemoglobin A1C % Less than 5.7% Above high normal [facility] HBA1C: Normal: Less than 5.7% Prediabetes: 5.7% to 6.4% Diabetes: 6.5% or higher HA1C % vs Estimated Average Glucose (eAG) % eAG % eAG 6% 126 mg/dL 10% 240 mg/dL 7% 154 mg/dL 11% 269 mg/dL 8% 183 mg/dL 12% 298 mg/dL 9% 212 mg/dL Reference: [place] [employer], 2017 ID Date Data Source [id number] 09/20/2020 02:28:00 PM EST [facility] Name Value Range Interpretation Code Description Data Tyra rce(s) Supporting Document(s) Creatinine,Urine Normal (applies to non-numeric results) [facility] Interpret with care as there is no estab lished reference range associated with this assay's methodology that pertains to this particular sex and/or age. Microalbumin,Urine <1.7 Above high normal [facility] Albumin/Creatinine Ratio,Urine Normal (applies to non-numeric results) [facility] Reference Ranges for Microalbumin,spot: Normal <30 ug/mg creatinine Microalbuminuria 30-300 ug/mg creatinine Clinical Albuminuria >300 ug/mg creatinine ID Date Data Source [id number] 09/20/2020 11:49:00 AM EST [facility] Name Value Range Interpretation Code Description Data Tyra rce(s) Supporting Document(s) Sodium 137 mmol/L 137-145 Normal (applies to non-numeric resul ts) [facility] Potassium 3.5-5.1 Normal (applies to non-numeric resul ts) [facility] Chloride 103 mmol/L 98-112 Normal (applies to non-numeric resul ts) [facility] Carbon Dioxide CO2 22.0-33.0 Normal (applies to non-numer ic results) [facility] Anion Gap 4.0-11.0 Normal (applies to non-numeric resul ts) [facility] BUN 62 mg/dL 7-17 Above high normal [facility] Creatinine 0.70-1.20 Above high normal [facility] GFR 16 mL/min >60 Below low normal [facility] Result based on MDRD formula. Glucose Level 260 mg/dL 74-99 Above high normal [facility] The reference range is only applicable w hen fasting. Calcium-Uncorrected 8.4-10.2 Normal (applies to non-nume yun results) [facility] Corrected Calcium 8.4-10.2 Normal (applies to non-numeri c results) [facility] ID Date Data Source [id number] 09/10/2020 10:56:00 AM EST [facility] Name Value Range Interpretation Code Description Data Tyra rce(s) Supporting Document(s) SARS coronavirus 2 RNA [Presence] in Res piratory specimen by ALLAN with probe detection NEGATIVE [place] This lab was ordered by [facility] a nd reported by [facility]. ID Date Data Source [id number] 07/10/2020 09:01:00 AM EST [facility] [address] [place] [address] PHONE: [phone] FAX: [phone] Name .................. : EARNESTINEYELENA OXANA Escamilla Acct Number.................. : [id number] ROOM. ................. : [facility] Number ................... : [id number] Stay type ............. : E/R Discharge Date......... ... : 07/05/20 Admit Date ......... : 07/05/20 Admit Phys .................... : TONIA CASPER Date of ....... : 1950 Family Phys ................... : REASON EDW Phone .................. : [phone] Age ................................ : 69 Film# .................. .:[id number] Sex ................................. : F Unsigned transcriptions are preliminary reports and do not represent a medical or legal document TOES RT [id number] COMPLETE:07/05/20 19:10 SERINA [id number] Reason(s): Hx of osteo and gangrene FIRST DIGIT RIGHT FOOT X-RAY: COMPARISON: None available. FINDINGS: 4 images of the phalanges of the first digit of the right foot are obtained. The lateral radiograph is quite limited. There is no acute fracture or dislocation. There are mild degenerative changes mostly at the interphalangeal joint. The bones are quite demineralized which does limit evaluation. There is irregularity of the proximal medial portion of the distal phalanx and osteomyelitis should be considered and further evaluated with 3- phase bone scanning if clinically warranted. There is soft tissue swelling. I MPRESSION: Findings suggest what appears to be osteomyelitis of the distal phalanx. Consider 3-phase bone scanning for further evaluation. Electronically Reviewed and Signed By Parminder Diamond MD , 07/10/20 09:01, AML Transcribe Initials: DANYELLE , Transcribe Date: 07/05/20 23:57, Dictation Date: Copy for: JEREMY AGUILAR via fax Copy for: EMERGENCY DEPT via modem Copy for: 710 MED REC DISCHARGED Page 1 of 1 Name Value Range Interpretation Code Description Data Tyra rce(s) Supporting Document(s) ID Date Data Source [id number] 07/10/2020 09:01:00 [place] [address] PHONE: [phone] FAX: [phone] Name .................. : SABA Escamilla Acct Number.................. : [id number] ROOM. ................. : TR-05 MR Number ................... : [id number] Stay type ............. : E/R Discharge Date......... ... : 07/05/20 Admit Date ......... : 07/05/20 Admit Phys .................... : TONIA CASPER Date of ....... : 1950 Family Phys ................... : REASON EDW Phone .................. : [phone] Age ................................ : 69 Film# .................. .:[id number] Sex ................................. : F Unsigned transcriptions are preliminary reports and do not represent a medical or legal document CHEST 2 VIEWS 15700 COMPLETE:07/05/20 19:10 SERINA [id number] Reason(s): b/l LE edema w/ hx of CHF CHEST X-RAY: FRONTAL AND LATERAL VIEWS COMPARISON: 03/22/20 FINDINGS: There is no acute consolidation or congestive heart failure. There is bibasilar subsegmental atelectasis and/or pleuroparenchymal scarring. The lungs are hyperexpanded bilaterally. The heart is enlarged. There is no hilar adenopathy. The aorta is unfolded, tortuous and calcified. There are no pleural effusions. The bones are demineralized with degenerative changes. The patient is again status post median sternotomy and aortic valve repair. IMPRESSION: No evidence of significant acute pulmonary disease. Electronically Reviewed and Signed By Parminder Diamond MD , 07/10/20 09:01, AML Transcribe Initials: DANYELLE , Transcribe Date: 07/05/20 23:54, Dictation Date: Copy for: JEREMY AGUILAR via fax Copy for: EMERGENCY DEPT via modem Copy for: 710 MED REC DISCHARGED Page 1 of 1 Name Value Range Interpretation Code Description Data Tyra rce(s) Supporting Document(s) ID Date Data Source [id number] 07/10/2020 09:01:00 AM EST [facility] [address] [place] [address] PHONE: [phone] FAX: [phone] Name .................. : SABA Escamilla Acct Number.................. : [id number] ROOM. ................. : [address] Number ................... : [id number] Stay type ............. : E/R Discharge Date......... ... : 07/05/20 Admit Date ......... : 07/05/20 Admit Phys .................... : TONIA CASPER Date of ....... : 1950 Family Phys ................... : REASON EDW Phone .................. : [phone] Age ................................ : 69 Film# .................. .:[id number] Sex ................................. : F Unsigned transcriptions are preliminary reports and do not represent a medical or legal document US DOPPLER VENOUS BILAT LEG 82803 COMPLETE:07/05/20 18:41 ADB 18910 Reason(s): Pain, Limb BILATERAL LOWER EXTREMITY DUPLEX VENOUS DOPPLER ULTRASOUND: COMPARISON: None available. FINDINGS: Duplex color sonography of the major deep venous system of bilateral lower extremities does not demonstrate a DVT. Flow and compressibility are demonstrated in the bilateral common femoral, femoral and popliteal veins. There is a focal fluid collection in the left popliteal fossa measuring 1.9 x 0.8 x 2.8 cm. This is nonspecific, but most likely represents a small Rios's cyst. IMPRESSION: No evidence of a DVT demonstrated on the current study. Small focal fluid collection in the left popliteal fossa likely representing a small Rios's cyst. Electronically Reviewed and Signed By Parminder Diamond MD , 07/10/20 09:01, STEVIE Transcribe Initials: DZ , Transcribe Date: 07/05/20 21:09, Dictation Date: Copy for: JEREMY AGUILAR via fax Copy for: EMERGENCY DEPT via modem Copy for: 710 MED REC DISCHARGED Page 1 of 1 Name Value Range Interpretation Code Description Data Tyra rce(s) Supporting Document(s) ID Date Data Source [id number] 07/06/2020 07:13:00 [place] [address] RESPIRATORY CARE REPORT ==== ---------NAME------- NUMBER SEX AGE ADMIT DISC. XRAY# F/C ASA Escamilla [id number] F 69 07/05/20 07/05/20 [id number] MBJoel E/R DATE OF : 1950 M/R# [id number] #: [id number] TR-05 LOCATION: EMERGENCY DEPT EKG 03225 COMP LETE:07/05/20 23:50 [place]MT 40909 PHYSICIAN: TONIA LUNA CH Name Value Range Interpretation Code Description Data Tyra rce(s) Supporting Document(s) ID Date Data Source [id number] 07/05/2020 03:34:00 PM [facility] 1 OrderSheet [facility] Emergency Department [address] [place] [address] Phone #: [phone] ilu- [phone] 07/05/2020 15:34 Patient: OXANA CLANCY Sex: F : 1950 Age: 69yWEIGHT:93.8 kg HEIGHT:61 inches BMI:39.1ALLERGIES: PenicillinsCHIEF COMPLAINT: pain, swellingDIAGNOSIS: Cellulitis of skin, OsteomyelitisLAB ORDERSOrder Description Priority Entered Acknowledged InitialedCBC w Diff STAT 16:30 07/05/2020 16:34 Justino Fields R.N. P.A.-C;CMP STAT 16:30 07/05/2020 16:34 Justino Fields R.N. P.A.-C;Lipase STAT 16:30 07/05/2020 16:34 Justino Fields R.N. P.A.-C;PT/PTT STAT 16:30 07/05/2020 16:34 Justino Fields R.N. P.A.-C;Troponin-T STAT 16:30 07/05/2020 16:34 Justino Fields R.N. P.A.-C;BNP STAT 16:30 07/05/2020 16:34 Justino Fields R.N. P.A.-C;Urinalysis (Clean STAT 16:30 07/05/2020 Ack'd: 16:34Catch) Beatriz Amador P.A.-C; R.N.Sed. Rate STAT 16:33 07/05/2020 16:34 Justino Fields.N. P.A.-C;CRP STAT 16:33 07/05/2020 16:34 Justino Fields.N. P.A.-C;Blood Culture STAT 17:51 07/05/2020 18:08 Diamondq10m X2 (Sched Rellpatricio Jeremy RouseNBoyd17:51 07/05/2020) PCarmen; 2 OrderSheet [facility] Emergency Department [address] [place] [address] Phone #: ext- [phone] 07/05/2020 15:34 Patient: OXANA CLANCY Sex: F : 1950 Age: 69yBlood Culture STAT 17:51 07/05/2020 Initialed: 18:08 Beatriz Fields R.N.q10m X2 (Sched Rellpatricio Jeremy Cancelled: Physician Order 18:15 Diamond,18:01 07/05/2020) PCarmen; Beatriz TrejoDIAGNOSTIC STUDY ORDERSOrder Description Priority Entered Acknowledged InitialedUS Lower Ext STAT 16:38 07/05/2020 16:46 Diamond,Venous Bilateral Justino RouseN.(Oxygen?(No)) P.A.-C; Reason for Study: Pain, Limb, Swelling, LimbChest 2 View STAT 16:38 07/05/2020 16:46 Diamond,(Oxygen?(No)) Justino Dixon.N. P.A.-C; Reason for Study: b/l LE edema w/ hx of CHFToes Right STAT 16:38 07/05/2020 16:46 Diamond,(Oxygen?(No)) Justino Dixon.N. P.A.-C; Reason for Study: Hx of osteo and gangreneMEDICATION/IV/DRIP/FLUID ORDERSOrder Description Priority Entered Acknowledged InitialedGENERAL ORDERSOrder Description Priority Entered Acknowledged InitialedBlood Pressure 16:30 07/05/2020 16:34 Diamond,Monitor Justino Dixon.N. P.A.-C;Sole Layer Hand 16:30 07/05/2020 16:34 Diamond,(continuous) Justino Dixon.N. P.A.- C;EKG 16:30 07/05/2020 16:34 Justino Fields R.N.-C;NPO 16:30 07/05/2020 16:34 Justino Fields R.N. P.ABoyd-C;Obtain Old EKG 16:30 07/05/2020 16:34 Justino Fields R.N.ABoyd-C;Obtain Old Records 16:30 07/05/2020 16:34 Justino Fields R.N. PBoydABoyd- C;Pulse oximeter 16:30 07/05/2020 16:34 Diamond, 3 OrderSheet [facility] Emergency Department [address] [place] [address] Phone #: ext- [phone] 07/05/2020 15:34 Patient: OXANA CLANCY Sex: F : 1950 Age: 69y(Continuous) Justino CardenasABoyd-Ting;Saline Lock 16:30 07/05/2020 16:34 Justino Fields R.N.-Ting;Vitals 16:30 07/05/2020 16:34 Justion Fields R.N., P.A.-C;Dress Wounds 19:06 07/05/2020 19:08 Justino Fields R.N., P.A.-C;[Electronically signed by Justino Luna P.A.-C (20:13 07/05/2020)][Electronically signed by Vivi Macdonald R.N. (05:21 07/06/2020)][Electronically locked by Vivi Macdonald R.N. (05:21 07/06/2020)] Name Value Range Interpretation Code Description Data Tyra rce(s) Supporting Document(s) ID Date Data Source [id number] 07/05/2020 03:34:00 PM EST [facility] 1 Medication Reconciliation Report [facility] Emergency Department [address] [place] [address] Phone #: ext- [phone] 07/05/2020 15:34 Patient: OXANA CLANCY Sex: F : 1950 Age: 69yWeight: 93.8 kgHeight/Length: 61 in.BMI: 39.1ALLERGIES: PenicillinsT patient's Home Medications are listed below:THE FOLLOWING MEDICATIONS NEED TO BE RECONCILED: Anoro Ellipta Inhalation Aspirin Oral 81 mg, daily Atorvastatin Calcium Oral 40 mg, daily Calcitriol Oral Carvedilol Oral 25mg, daily Ferrous Gluconate Oral (324 (37.5 Fe) mg) 1 tablet, 2x a day HumuLIN R U-500 (CONCENTRATED) Subcutaneous, 3x a day, Morning 80units Lunch 75 units Night 85 units hydrALAZINE HCl Oral 10mg, 3x a day Labetalol HCl Oral (200 mg) 1 tablet, 2x a day, last dose: [id number] 0045 Lasix Oral (20 mg), daily Losartan Potassium Oral 50 mg, daily Multivit amins Oral 1 pill, daily Omeprazole Oral 40 mg, daily Plavix Oral ROPINIRole HCl Oral (1 mg) 1 tablet, 2x a day, last dose: [id number] 0045 2 Medication Reconciliation Report [facility] Emergency Department [address] [place] [address] Phone #: ext- [phone] 07/05/2020 15:34 Patient: OXANA CLANCY Sex: F : 1950 Age: 69y Sertraline HCl Oral 50 mg, 2x a day TraZODone HCl Oral 150 mg, daily Vitamin D3 Oral (1000 unit) 1 tablet, daily Xarelto OralThe source(s) of the original Home Medication information:patientThe following Medications were given to the patient in the Emergency Department:None.The following Medications were prescribed to the patient:None. Name Value Range Interpretation Code Description Data Tyra [facility](s) Supporting Document(s) ID Date Data Source [id number] 07/05/2020 03:34:00 PM [facility] 1 Medication Administration Record [facility] Emergency Department [address] [place] [address] Phone #: ext- [phone] 07/05/2020 15:34 Patient: OXANA CLANCY Sex: F : 1950 Age: 69yWeight: 93.8 kgHeight/Length: 61 inBMI: 39.1ALLERGIES: PenicillinsDate/Time Medication Administered Medication Ordered Name Value Range Interpretation Code Description Data [facility](s) Supporting Document(s) ID Date Data Source [id number] 07/05/2020 03:34:00 PM [facility] 1 General Instructions [facility] Emergency Department [address] [place] [address] Phone #: ext- [phone] 07/05/2020 15:34 Patient: OXANA CLANCY Sex: F : 1950 Age: 69yCellulitis of the right foot.Subacute osteomyelitis of the right foot- from local infection.(Electronically signed by Justino Luna P.A.-C 07/05/2020 20:13) Name Value Range Interpretation Code Description Data Tyra rce(s) Supporting Document(s) ID Date Data Source [id number] 07/05/2020 03:34:00 PM EST [facility] 1 Clinical Report - Nurses [facility] Emergency Department [address] [place] [address] Phone #: ext- [phone] 07/05/2020 15:34 Patient: OXANA CLANCY Sex: F : 1950 Age: 69yTRIAGE Arrived by private vehicle. Historian: patient. Accompanied by friend. Triage time: 15:37 07/05/2020. Acuity: LEVEL 3. Chief Complaint: RIGHT LOWER EXTREMITY PAIN and SWELLING. LEFT LOWER EXTREMITY PAIN and SWELLING. Alert. Onset. (pt states "this is ongoing" worse about 4 days. pt d/c from [facility] Friday for same issue). She has had swelling. ( pt had US last week. Pt has blockage in right leg, 1 balloon placed. pt reports procedure to be repeated Friday. pt reports infection in right great toe. pt reports she was told it may be osteomyelitis and require amputation). 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 --15:43 07/05/20 Leslie Reyna R.N. 15:37 07/05/20. BP: 146/54. HR: 70. RR: 22. O2 saturation: 96%. Temp: 97.8 F. Pain level now 6/10. --15:43 07/05/20 Leslie Reyna R.N. Weight: 93.8 kg. --15:36 07/05/20 Leslie Reyna R.N.. Height/Length: 61 inches. BMI: 39.1. --15:36 07/05/20 Leslie Reyna R.N. Medications Aspirin Oral 81 mg, daily. Atorvastatin Calcium Oral 40 mg, daily. Calcitriol Oral. Ferrous Gluconate Oral (Tablet 324 (37.5 Fe) mg) 1 tablet, 2x a day. HumuLIN R U-500 (CONCENTRATED) Subcutaneous, 3x a day (Morning 80units Lunch 75 units Night 85 units ). Labetalol HCl Oral (Tablet 200 mg) 1 tablet, 2x a day, last dose 44. Lasix Oral (Tablet 20 mg), daily. Losartan Potassium Oral 50 mg, daily. Multivitamins Oral 1 pill, daily. Omeprazole Oral 40 mg, daily. ROPINIRole HCl Oral (Tablet 1 mg) 1 tablet, 2x a day, last dose 44. Sertraline HCl Oral 50 mg, 2x a day. TraZODone HCl Oral 150 mg, daily. Vitamin D3 Oral (Tablet 1000 unit) 1 tablet, daily. --15:41 07/05/20 Leslie Reyna R.N. Xarelto Oral. --15:41 07/05/20 Leslie Reyna R.N. hydrALAZINE HCl Oral 10mg, 3x a day. --15:46 07/05/20 Leslie Reyna R.N. 2 Clinical Report - Nurses [facility] Emergency Department [address] [place] [address] Phone #: ext- [phone] 07/05/2020 15:34 Patient: OXANA CLANCY Sex: F : 1950 Age: 69yCarvedilol Oral 25mg, daily. --15:47 07/05/20 Leslie Reyna R.N.Plavix Oral. --15:47 07/05/20 Leslie Reyna R.N.Anoro Ellipta Inhalation. --15:48 07/05/20 Leslie Reyna R.N.The following entry was struck by Leslie Reyna R.N., 15:48 (07/05/20) Reason - other(d/c per pt). Potassium Citrate ER Oral (Tablet Extended Release 10 MEQ (1080 MG)) 1 tablet, 2x a day. --15:41109/04/19 Leslie Reyna R.N.The following entry was struck by Leslie Reyna R.N., 15:46 (07/05/20) Reason - other(wrongmed-hydralazine). HydrOXYzine HCl Oral 10 mg, 3x a day as needed. --15:41 07/05/20 Leslie Reyna R.N.The following entry was struck and corrected by Leslie Reyna R.N., 15:45 (07/05/20) Reason forcorrection - other(correction). Lasix Oral (Tablet 80 mg), daily. --15:41 07/05/20 Leslie Reyna R.N.The following entry was struck by Leslie Reyna R.N., 15:45 (07/05/20) Reason - other(d/c per pt). Spironolactone Oral 50 mg, 2x a day. --15:41 07/05/20 Leslie Reyna R.N. .AllergiesPenicillins. --15:40 07/05/20 Leslie Reyna R.N.Medication/allergy information source: the patient. --15:43 07/05/20 Leslie Reyna R.N.HistoryPAST MEDICAL HX: Diabetes mellitus. Tetanus status: up-to-date. Immunizations: up-to-date.SOCIAL HX: Never smoker. No alcohol use or drug use. She was offered HIV testing but declined andhepatitis C testing but declined. She has not traveled outside the [place]Infectious disease exposure: No infectious disease exposure.SELF HARM ASSESSMENT: Self harm assessment was performed. The patient answered "no" to thequestion(s) "Have you recently felt down, depressed, or hopeless?", "Do you have thoughts of harming orkilling yourself?", "Do you have a plan for harming or killing yourself?", "Have you recently had thoughtsabout harming or killing others?", "Do you have any dangerous items in your possession?", "Have younoticed less interest or pleasure in doing things?", "Are you here because you tried to hurt yourself?" and"Have you ever tried to hurt yourself before today?".ABUSE ASSESSMENT: Abuse assessment. No suspicion of abuse. No report of abuse.NUTRITIONAL RISK ASSESSMENT: The nutritional risk assessment revealed no deficiencies.FUNCTIONAL ASSESSMENT: Functional assessment: no impairments noted.LEARNING NEEDS A SSESSMENT: The learning needs assessment revealed no barriers.FALL RISK ASSESSMENT: Fall risk assessment completed per protocol; pt uses cane. 3 Clinical Report - Nurses [facility] Emergency Department [address] [place] [address] Phone #: ext- [phone] 07/05/2020 15:34 Patient: OXANA CLANCY Sex: F : 1950 Age: 69y SKIN INTEGRITY ASSESSMENT: Skin integrity risk assessment completed. No skin integrity risk identified. --15:43 07/05/20 Leslie Reyna R.N.PHYSICAL ASSESSMENT Ambulatory to room. GENERAL / NEURO / PSYCH: Oriented X 4. Alert. Appears in no acute distress. She has weakness. She has numbness with tingling (on top of bilateral feet). EXTREMITIES: Limited ROM present. Bilateral 3+ edema of the lower extremities involving both feet and both ankles. Extremity pulses are within normal limits. Neuro-vascular status intact to the extremity. Right ankle: tenderness and swelling. Right foot: swelling. Left ankle: tenderness and swelling. Left foot: swelling. SKIN: Multiple recent draining wounds present on the right foot (left great toe). Skin is warm and dry. --16:19 07/05/20 Beatriz Fields R.N.NURSING PROGRESS NOTES The plan of care for this patient has been created. Patient gowned. Reassurance given. Call light placed in reach. Side rails up x 2. Patient ready for evaluation. --15:43 07/05/20 Leslie Reyna R.N. EKG time: (late entry - 16:41 07/05/2020). EKG was performed by a nurse and shown to the PA. Patient transported to radiology and sonogram by wheelchair with IV, mask and technology specialist. --16:47 07/05/20 Beatriz Fields R.N. 16:09 07/05/2020 Site #1 started via IV in the left antecubital space with an 20g angiocath, with aseptic technique and good blood return; one attempt. Blood drawn: rainbow set and blood bank tube. Labeled in the presence of the patient and sent to the lab. Saline lock flushed with 10 mL saline. --18:09 07/05/20 Beatriz Fields R.N. Correction. --18:09 07/05/20 Beatriz Fields R.N. 16:35 07/05/2020 Site #1 started via IV in the left antecubital space with an 20g angiocath, with aseptic technique and good blood return; one attempt. Blood drawn: rainbow set and blood bank tube. Labeled in the presence of the patient and sent to the lab. Saline lock flushed with 10 mL saline. --18:09 07/05/20 Beatriz Fields R.N. late entry - 17:45 07/05/20. groundwater monitoring technician, NIBP monitor and pulse oximeter placed on patient; monitor alarms on; monitor strip added to paper chart. Patient gowned. Reassurance given. Rounding: Position: states comfortable. Proximity of possessions / care items: call light within easy reach. Set expectations: advised patient of rounding protocol timing and asked if they needed anything else at this time. The patient is calm and resting quietly. GENERAL / NEURO / PSYCH: Alert. Oriented X 4. Patient waiting for lab and radiology results and disposition. --18:10 07/05/20 Beatriz Fields R.N. 16:00 07/05/20. BP: 172/61. MAP: 98. HR: 65. RR: 16. O2 saturation: 94% on room air. --18:24 07/05/20 Beatriz Fields R.N. 4 Clinical Report - Nurses [facility] Emergency Department [address] [place] [address] Phone #: ext- [phone] 07/05/2020 15:34 Patient: OXANA CLANCY Sex: F : 1950 Age: 69y 16:30 07/05/20. BP: 168/64. MAP: 98. HR: 65. RR: 20. O2 saturation: 96% on room air. --18:26 07/05/20 Beatriz Fields R.N. 16:45 07/05/20. BP: 171/51. MAP: 91. HR: 65. RR: 21. O2 saturation: 95% on room air. --18:28 07/05/20 Beatriz Fields R.N. 17:40 07/05/20. BP: 175/51. MAP: 92. HR: 67. RR: 18. O2 saturation: 98% on room air. --18:31 07/05/20 Beatriz Fields R.N. 18:00 07/05/20. BP: 173/51. MAP: 91. HR: 64. RR: 20. O2 saturation: 94% on room air. --18:32 07/05/20 Beatriz Fields R.N. late entry - 18:45 07/05/20. groundwater monitoring technician, NIBP monitor and pulse oximeter placed on patient; monitor alarms on. Patient gowned. Reassurance given. Rounding: Position: states comfortable. Proximity of possessions / care items: call light within easy reach. Set expectations: advised patient of rounding protocol timing and asked if they needed anything else at this time. Patient waiting for transportation. --19:09 07/05/20 Beatriz Fields R.N. Nail / tip right great toe: applied dressing consisting of telfa pad. Secured with tape and negro. --19:13 07/05/20 Christiane Stapleton R.N. 18:30 07/05/20. BP: 172/54. MAP: 93. HR: 66. RR: 20. O2 saturation: 93% on room air. --19:22 07/05/20 Beatriz Fields R.N. 19:00 07/05/20. BP: 179/54. MAP: 95. HR: 74. RR: 20. O2 saturation: 94% on room air. --19:23 07/05/20 Beatriz Fields R.N. late entry - 18:54 07/05/20. ( Called [facility] to give NTN). --19:24 07/05/20 Beatriz Fields R.N. late entry - 19:11 07/05/20. ( Called again to give report to [facility] too busy). --19:25 07/05/20 Beatriz Fields R.N. ( Spoke with [facility] supervisor blood regarding report was told to get fax number and send the overview). --19:26 07/05/20 Beatriz Fields R.N.DISPOSITION / DISCHARGE 19:49 07/05/[address] Site #[address] upon transfer. --19:49 07/05/20 Matt Quintanilla RN Departure time: 19:51 07/05/2020. Condition at departure: stable. Transferred to [facility]. Visit overview, summary of care (CCDA), Emtala forms and Face Sheet provided to EMS and transfer facility via paper. Transported via ambulance by EMS ([facility]). Report was given via visit overview. Report was acknowledged. --19:52 07/05/20 Matt Quintanilla RN 5 Clinical Report - Nurses [facility] Emergency Department [address] [place] [address] Phone #: ext- [phone] 07/05/2020 15:34 Patient: OXANA CLANCY Sex: F : 1950 Age: 69y 19:49 07/05/20. BP: 170/86. MAP: 114. HR: 72. RR: 18. O2 saturation: 95%. Temp: 98.6 F. Pain level now: 11/08. --19:52 07/05/20 Matt Quintanilla RN.Locked/Released at 07/06/2020 05:21 by Vivi Quintanilla R.N. Name Value Range Interpretation Code Description Data Tyra rce(s) Supporting Document(s) ID Date Data Source [id number] 07/05/2020 03:34:00 PM EST [facility] 1 Clinical Report - Physicians/Mid Levels [facility] Emergency Department [address] [place] [address] Phone #: ext- [phone] 07/05/2020 15:34 Patient: OXANA CLANCY Sex: F : 1950 Age: 69y Time Seen: 16:28 07/05/2020; initial patient contact, initial documentation. Arrived- By private vehicle. Historian- patient. Disposition decision: 18:38 07/05/2020.HISTORY OF PRESENT ILLNESS Chief Complaint: LOWER EXTREMITY PAIN and SWELLING. This started about 4 days ago and is still present. Severity is described as being moderate. The quality is noted to be dull and aching. Not worsened by anything and relieved by anything. Sympt oms located in the area of the right ankle, right leg, right foot, left leg, left foot and left ankle. The patient has had swelling. No bladder dysfunction or bowel dysfunction. ( Pt presents to the ER with c/o worsening pain and edema of the b/l LE, R>L. Also noted increasing erthema of the R foot. Pt was recetnly dc'ed from [facility] on Friday for multiple issues. Orgianlly presented to the [facility] ER with nonhealing R toe gangrene 2/2 diabetic ulcer. Pt was admited for 9 days and while there she had transfusion, IV abx, underwent angioplasty R anterior tibial artery and dorsal artery, and diuretic change due to CKD4. Pt was to f/u wi PCP, nephrolgoy and a Dr. Cotton within a week for further eval. Due ot increased edema and erythema and discomfort, presented to this ER. Denies any fever.). Patient denies an injury. Similar symptoms previously. Recent medical care: The patient was seen recently at another facility in a clinic and hospitalized.REVIEW OF SYSTEMS No cough, chest pain, difficulty breathing, fever or skin rash. No enlarged lymph nodes, neck pain, back pain, headache or sore throat. No abdominal pain, vomiting, diarrhea, black stools or difficulty with urination. No bloody stools. All other systems reviewed and are negative.PAST HISTORY See nurses notes. Problems: Depression [Chronic]. GI Disease [Chronic]. Coronary Artery Disease [Chronic]. Heart Murmur [Chronic]. Nephropathy [Chronic]. Aortic Stenosis [Chronic]. Lung Disease [Chronic]. Anemia [Chronic]. 2 Clinical Report - Physicians/Mid Levels [facility] Emergency Department [address] [place] [address] Phone #: ext- [phone] 07/05/2020 15:34 Patient: OXANA CLANCY Sex: F : 1950 Age: 69yAnxiety Reaction [Chronic].Atrial Fibrillation [Chronic].Gastroesophageal Reflux Disease [Chronic].Congestive Heart Failure [Chronic].Hypercholesterolemia [Chronic].Renal Insufficiency [Chronic].Renal Insufficiency.Diabetes Mellitus.COPD - Chronic Obstructive Pulmonary Disease.Chest Wall Pain.Cardiac Procedures.Anemia.Congestive Heart Failure.Other Disease.Skin Avulsion.Hypertension.Laceration.Heart Disease.Hyperglycemia.Epistaxis [Resolved].Fall [Resolved].Hyperkalemia [Resolved].Dizziness [Resolved].Chest Pain [Resolved].Contusion [Resolved].Dehydration [Resolved].Acute Myocardial Infarction [Resolved].Pneumonia [Resolved].Pleural Effusion [Resolved].Additional Surgeries:Appendectomy.Back Surgery.Carpal Tunnel Surgery.Coronary Artery Bypass Graft.Hernia Repair.Hysterectomy.Knee Surgery.Transcatheter Aortic Valve Replacement.Valve Replacement [09/2018].Medications:Anoro Ellipta Inhalation.Plavix Oral. 3 Clinical Report - Physicians/Mid Levels [facility] Emergency Department [address] [place] [address] Phone #: ext- [phone] 07/05/2020 15:34 Patient: OXANA CLANCY Sex: F : 1950 Age: 69y Carvedilol Oral 25mg, daily. hydrALAZINE HCl Oral 10mg, 3x a day. Xarelto Oral. Aspirin Oral 81 mg, daily. Atorvastatin Calcium Oral 40 mg, daily. Calcitriol Oral. Ferrous Gluconate Oral (Tablet 324 (37.5 Fe) mg) 1 tablet, 2x a day. HumuLIN R U-500 (CONCENTRATED) Subcutaneous, 3x a day (Morning 80units Lunch 75 units Night 85 units ). Labetalol HCl Oral (Tablet 200 mg) 1 tablet, 2x a day, last dose 44. Lasix Oral (Tablet 20 mg), daily. Losartan Potassium Oral 50 mg, daily. Multivitamins Oral 1 pill, daily. Omeprazole Oral 40 mg, daily. ROPINIRole HCl Oral (Tablet 1 mg) 1 tablet, 2x a day, last dose 44. Sertraline HCl Oral 50 mg, 2x a day. TraZODone HCl Oral 150 mg, daily. Vitamin D3 Oral (Tablet 1000 unit) 1 tablet, daily. Allergies: Penicillins.SOCIAL HISTORY Never smoker. No alcohol use or drug use.ADDITIONAL NOTES The nursing notes have been reviewed.PHYSICAL EXAM Vital Signs: 07/05/2020 15:37 BP: 146/54. MAP: 84. HR: 70. RR: 22. O2 saturation: 96%. Temp: 97.8 F. Have been reviewed. Oxygen saturation normal. Appearance: Alert. Oriented X3. No acute distress. ENT: Voice normal. CVS: Normal heart rate and rhythm. No JVD present. Pulses normal. Capillary refill normal. Heart sounds normal. Pulses: right radial 2+; left ra dial 2+; right dorsalis pedis per doppler; left dorsalis pedis per doppler; right posterior tibial per doppler; left posterior tibial per doppler. Respiratory: Chest normal on inspection. No respiratory distress. Unlabored respirations. Lungs clear. Good chest movement. Breath sounds normal and equal. Chest nontender. Skin: Skin warm and dry. Extremities: Right leg: moderate swelling. Neurovascular intact distally. No erythema, tenderness, laceration or abrasion. Left leg: moderate swelling. Neurovascular intact distally. No erythema, tenderness, laceration or abrasion. Right ankle: moderate swelling. No erythema or tenderness. Left ankle: moderate swelling. No erythema or tenderness. Right foot: moderate erythema and swelling and mild tenderness located in the first toe(s). Neurovascular intact distally. Left foot. Neurovascular intact 4 Clinical Report - Physicians/Mid Levels [facility] Emergency Department [address] [place] [address] Phone #: ext- [phone] 07/05/2020 15:34 Patient: OXANA CLANCY Sex: F : Age: 69y distally. No erythema, tenderness, swelling, laceration or abrasion. Bilateral moderate 2+ pitting edema of the lower extremities involving both feet, both ankles and both lower legs. No right hip complaint, right thigh complaints, left thigh complaints, right knee complaints or left knee complaints. (Noted wound of hte R great toe; noted erythema of the R toe and redness of the R foot.). Extremities otherwise negative. Neuro: Awake. Alert. Mood/affect normal. Speech normal. Psych: Cognition normal. Thought process and content normal. Insight and judgement normal.LABS, X-RAYS, AND EKG EKG: Normal sinus rhythm. Rate: 6. NSR w/ sinus arrhythmia; anterseptal infarct, age undetermined, abnormal ECG. Discussed and reviewed with/by attending. Compared wiht previous. Chest X-ray: (Lobo freeman Andrew - 07/05/2020 5:49:20 PM No evidence of significant acute pulmonary disease). The X-rays were interpreted by the radiologist. Rt Toes X-ray: (Lobo freeman Andrew - 07/05/2020 5:51:16 PM Findings suggest what appears to be osteomyelitis of the distal phalanx. Consider 3 phase bone scanning). The X-rays were interpreted by the radiologist. Lower Extremity Sonography: Lobo freeman Andrew - 07/05/2020 5:23:41 PM No evidence of a DVT. Small focal fluid collection in left popliteal fossa likely representing a small Rios cyst. The study was interpreted by the radiologist. Laboratory Tests: Blood Culture: (SANDY: 07/05/2020 18:01) ( [facility] 07/05/[facility] 18:16) Canceled Sed. Rate: (SANDY: 07/05/2020 16:30) ( [facility] 07/05/2020 17:54) Su l results Test Result Flag Units (Reference) SED RATE 111 H mm/hr (0 - 30) SED RATE REENTER 111 CRP: (SANDY: 07/05/2020 16:30) ( [facility] 07/05/2020 17:09) Final results Test Result Flag Units (Reference) CRP-HS 14.86 H MG/L (1.00 - 3.00) CDC/AHS HS-CRP CUT-OFF: RELATIVE RISK: <1.0 mg/L Low 1.0 - 3.0 mg/L Average >3.0 mg/L High Optimally, the average of HS-CRP results repeated two weeks apart should be used for risk assessment. CBC w Diff: (SANDY: 07/05/2020 16:30) ( [facility] 07/05/2020 16:54) Final results Test Result Flag Units (Reference) CBC W/AUTOMATED DIFF COMPLETE BLOOD COUNT WBC 11.7 H 10/uL (4.2 - 11.0) RBC 3.11 L 10/uL (4.20 - 5.40) HEMOGLOBIN 8.8 L g/dL (12.0 - 16.0) HEMATOCRIT 26.7 L % (37.0 - 47.0) MCV 85.9 fL (81.0 - 101) 5 Clinical Report - Physicians/Mid Levels [facility] Emergency Department [address] [place] [address] Phone #: ext- [phone] 07/05/2020 15:34 Patient: OXANA CLANCY Sex: F : 1950 Age: 69y MCH 28.3 pg (27.0 - 34.0) MCHC 33.0 g/dL (31.0 - 36.0) RDW 12.9 % (11.5 - 14.5) PLATELETS 234 10/uL (150 - 450) MPV 10.3 fL (7.4 - 10.4) NEUT 74.3 % (37.0 - 80.0) LYMPH 15.1 L % (25.0 - 40.0) MONO 7.5 % (3.0 - 8.0) EOS 1.8 % (0.0 - 7.0) BASO 0.3 % (0.0 - 2.5) %IG 1.0 H % (0.0 - 0.0) %NRBC 0.0 % (0.0 - 0.0) #NEUT 8.73 H 10/uL (2.00 - 6.90) #LYMPH 1.77 10/uL (0.60 - 3.40) #MONO 0.88 10/uL (0.00 - 0.90) #EOS 0.21 10/uL (0.00 - 0.70) #BASO 0.03 10/uL (0.00 - 0.20) #IG 0.12 H 10/uL (0.00 - 0.10) #NRBC 0.00 10/uL (0.00 - 0.00) MANUAL DIFF NOT INDICATED RBC MORPH NOT INDICATEDCMP: (SANDY: 07/05/2020 16:30) ( MsgRcvd 07/05/2020 17:09) Final results Test Result Flag Units (Reference) COMPREHENSIVE METABOLIC PANEL COMPREHENSIVE METABOLIC PANEL SODIUM 136 mEq/L (134 - 153) POTASSIUM 4.3 mEq/L (3.6 - 5.0) CHLORIDE 105 mEq/L (98 - 107) CO2 24 MEQ/L (22 - 30) GLUCOSE 188 H MG/DL (65 - 110) BUN 44 H MG/DL (7 - 21) CREATININE 1.9 H MG/DL (0.7 - 1.5) BUN/CREAT 23 (8 - 27) TOTAL PROTEIN 5.3 L G/DL (6.3 - 8.2) ALBUMIN 3.0 L G/DL (3.9 - 5.0) GLOBULIN 2.3 L GM/DL (2.4 - 3.2) A/G RATIO 1.3 (0.8 - 2.0) CALCIUM 8.7 MG/DL (8.4 - 10.2) TOTAL BILI <0.7 MG/DL (0.2 - 1.3) ALKALINE PHOS 106 U/L (38 - 126) SGOT/AST 20 U/L (5 - 40) SGPT/ALT 20 U/L (7 - 56) ANION GAP 7.0 L mmol/L (8.0 - 16.0) AGE 69 yrs NON-AA GFR 28 mL/min AFR AMER GFR >60 Male GFR Interprentation 20-49 yrs >60 mL/min Btqhkt04-74 yrs >56 mL/min Normal 60-69 yrs >49 mL/min Normal 70-79yrs>42 mL/min Normal 80 and above >35 mL/min Normal Female GFRInterpretation 20-39 yrs >60 mL/min Normal 40-49 yrs >58 mL/minNormal 50-59 yrs >51 mL/min Normal 60-69 yrs >45 mL/min Dxcxbf48-32 yrs >39 mL/min Normal 80 and above >32 mL/min NormalLipase: (SANDY: 07/05/2020 16:30) ( MsgRcvd 07/05/2020 17:09) Final results Test Result Flag Units (Reference) LIPASE 13 U/L (13 - 60) 6 Clinical Report - Physicians/Mid Levels [facility] Emergency Department [address] [place] [address] Phone #: ext- [phone] 07/05/2020 15:34 Patient: OXANA CLANCY Sex: F : 1950 Age: 69y PT/PTT: (SANDY: 07/05/2020 16:30) ( KygRcvd 07/05/2020 17:09) Final results Test Result Flag Units (Reference) PROTIME 18.7 H SECONDS (11.0 - 15.5) INR 1.54 H (0.93 - 1.23) PTT 44.9 H SECONDS (24.8 - 36.7) \\BLDo\\INR INTERPRETATION\\BLDx\\ Therapeutic range for Coumadin and related oral anticoagulants. - International Normalized Ratio (INR): 2.0 - 3.0 for Venous Thrombosis, Pulmonary Embolus, Tissue heart valves, Acute SD Atrial Fibrillation, Valvular heart disease and recurrent Systemic Embolism. -International Normalized Ratio (INR): 2.5 - 3.5 for Mechanical Prosthetic valve. Troponin-T: (SANDY: 07/05/2020 16:30) ( MsgRcvd 07/05/2020 17:05) Final results Test Result Flag Units (Reference) TROPONIN T 0.03 NG/ML (0.0 0 - 0.10) TROPONIN T0.1 ng/ml Recommended as the clinical threshold value forTroponin T. BNP: (SANDY: 07/05/2020 16:30) ( MsgRcvd 07/05/2020 17:09) Final results Test Result Flag Units (Reference) BNP 4850 H PG/ML (0 - 125).PROGRESS AND PROCEDURES Course of Care: NAD, AOx3, interacting well and appropriately, no use of accessory muscle, able to speak full sentences, stable, non-toxic looking. Enter room and pt lying peacefully in bed in NAD. Patient stable. Denies any new issues, concerns, or complaints. Pt recently discharged from [facility] for numerous nad various issues. Presents today with c/o worsening edema and pain of hte b/l LE. PE demos pitting edema of the b/l LE. noted erythema fothe R foot near toe wound. ? cellulitits. pt has known osteomylitis of the toe and had surgery and sts on abx, but unsure which one. D ocuemntation indicates IV vanc. ? worseing infection vs CHF vs other. Will obtina labs and imaigng for further eval. Pending resutls. reviewed documenation form [facility]. pt was on IV vanc. Does not sts a discharge abx. Pt sts she is on a oral abx. Contacted pharmacy and learn out pt abx regimen: Levaquin 750mg po 1 tab ever 2 days for 6 days (rx 3 tabs). Must be due to CKD for this dosing. Appears to no be working as noted ertthema of toe and foot and pt sts that it has been worsening. 7 Clinical Report - Physicians/Mid Levels [facility] Emergency Department [address] [place] [address] Phone #: ext- [phone] 07/05/2020 15:34 Patient: OXANA CLANCY Sex: F : 1950 Age: 69y Pt failed outpt therapy. Pt may be a candidtate for central line as oral abx are not working. Will contact [facility] for [facility] as we do not have ortho, podiatry, or PICC team. Called [facility] and dicussed with Vivi [facility] calls back. Discuss with Dr. Yuan. Sts she will accpet. Vivi call back. Room 4231. Critical care performed (60 minutes). Time includes: direct patient care, patient reassessment, coordination of patient care, interpretation of data (laboratory data), review of patient's medical records, medical consultation, family consultation regarding treatment decisions and documentation of patient care- see progress notes. Discussed case with health care provider (Tonia). Disposition: Transferred to [facility]. UTI (catheter associated) was not present prior to transfer. Pressure ulcer was not present prior to transfer. Vascular infection (catheter associated) was not present prior to transfer.CLINICAL IMPRESSION Cellulitis of the right foot. Subacute osteomyelitis of the right foot- from local infection.(Electronically signed by Justino Luna P.A.-C 07/05/2020 20:13) Name Value Range Interpretation Code Description Data Tyra rce(s) Supporting Document(s) ID Date Data Source [id number] 07/11/2020 07:00:00 AM [facility] [address] Name Value Range Interpretation Code Description Data Tyra rce(s) Supporting Document(s) Bacteria identified in Blood by Culture [facility] NO GROWTH AFTER 5 DAYS ID Date Data Source [id number] 07/11/2020 08:12:00 AM [facility] Name Value Range Interpretation Code Description Data Tyra rce(s) Supporting Document(s) CULTURE BLOOD [facility] spital _CULTURE BLOOD_ [place] [address] IA# [id number] SEE SCANNED REPORT{ PRELIM ID Date Data Source [id number] 07/05/2020 05:54:00 PM [facility] Name Value Range Interpretation Code Description Data Tyra rce(s) Supporting Document(s) Erythrocyte sedimentation rate by Westergren method 111 mm/hr 0 - 30 H [facility] SED RATE REENTER 111 [facility] ID Date Data Source [id number] 07/05/2020 05:09:00 PM [facility] Name Value Range Interpretation Code Description Data Tyra rce(s) Supporting Document(s) Prothrombin time (PT) 18.7 SECONDS 11.0 - 15.5 H [facility] INR in Platelet poor plasma by Coagulation assay 1.54 0.93 - 1. 23 H [facility] aPTT in Blood by Coagulation assay 44.9 SECONDS 24.8 - 36.7 H [facility] \\BLDo\\INR INTERPRETATION\\BLDx\\ Therapeutic range for Coumadin and related oral anticoagulants. - International Normalized Ratio (INR): 2.0 - 3.0 for Venous Thrombosis, Pulmonary Embolus, Tissue heart valves, Acute SD Atrial Fibrillation, Valvular heart disease and recurrent Systemic Embolism. - International Normalized Ratio (INR): 2.5 - 3.5 for Mechanical Prosthetic valve. ID Date Data Source [id number] 07/05/2020 05:09:00 PM [facility] Name Value Range Interpretation Code Description Data Tyra rce(s) Supporting Document(s) C reactive protein [Mass/volume] in Serum or Plasma by High sensitivity method 14.86 MG/L 1.00 - 3.00 H [facility] HS-CRP CUT-OFF: RELATIVE RISK: <1.0 mg/L Low 1.0 - 3.0 mg/L Average >3.0 mg/L High Optimally, the average of HS-CRP results repeated two weeks apart should be used for risk assessment. ID Date Data Source [id number] 07/05/2020 05:09:00 PM [facility] Name Value Range Interpretation Code Description Data Tyra rce(s) Supporting Document(s) BNP 4850 PG/ML 0 - 125 H [facility] [place] ID Date Data Source [id number] 07/05/2020 05:09:00 PM [facility] Name Value Range Interpretation Code Description Data Tyra rce(s) Supporting Document(s) Lipase [Enzymatic activity/volume] in Serum or Plasma 13 U/L 13 - 60 [facility] ID Date Data Source [id number] 07/05/2020 05:08:00 PM [facility] Name Value Range Interpretation Code Description Data Tyra rce(s) Supporting Document(s) COMPREHENSIVE METABOLIC PANEL [facility] COMPREHENSIVE METABOLIC PANEL Sodium [Moles/volume] in Serum or Plasma 136 mEq/L 134 - 153 [facility] Potassium [Moles/volume] in Serum or Plasma 4.3 mEq/L 3.6 - 5.0 [facility] Chloride [Moles/volume] in Serum or Plasma 105 mEq/L 98 - 107 [facility] Carbon dioxide, total [Moles/volume] in Serum or Plasma 24 MEQ/L 22 - 30 [facility] Glucose [Mass/volume] in Serum or Plasma 188 MG/DL 65 - 110 H [facility] BUN 44 MG/DL 7 - 21 H [facility] Creatinine [Mass/volume] in Serum or Plasma 1.9 MG/DL 0.7 - 1.5 H [facility] BUN/CREAT 23 8 - 27 [facility] al Protein [Mass/volume] in Serum or Plasma 5.3 G/DL 6.3 - 8.2 L [facility] Albumin [Mass/volume] in Serum or Plasma 3.0 G/DL 3.9 - 5.0 L [facility] Globulin [Mass/volume] in Serum by calculation 2.3 GM/DL 2.4 - 3.2 L [facility] A/G RATIO 1.3 0.8 - 2.0 [facility] Calcium [Mass/volume] in Serum or Plasma 8.7 MG/DL 8.4 - 10.2 [facility] Bilirubin.total [Mass/volume] in Serum or Plasma <0.7 MG/DL 0.2 - 1.3 [facility] Alkaline phosphatase [Enzymatic activity/volume] in Serum or Plasma 106 U/L 38 - 126 [facility] Aspartate aminotransferase [Enzymatic activity/volume] in Serum or Plasma 20 U/L 5 - 40 [facility] Alanine aminotransferase [Enzymatic activity/volume] in Seru m or Plasma 20 U/L 7 - 56 [facility] Anion gap 3 in Serum or Plasma 7.0 mmol/L 8.0 - 16.0 L [facility] 69 [facility] AFR AMER GFR >60 [facility] Male GFR In terprentation 20-49 yrs >60 mL/min Normal 50-59 yrs >56 mL/min Normal 60-69 yrs >49 mL/min Normal 70-79yrs >42 mL/min Normal 80 and above >35 mL/min Normal Female GFR Interpretation 20-39 yrs >60 mL/min Normal 40-49 yrs >58 mL/min Normal 50-59 yrs >51 mL/min Normal 60-69 yrs >45 mL/min Normal 70-79 yrs >39 mL/min Normal 80 and above >32 mL/min Normal ID Date Data Source [id number] 07/05/2020 05:04:00 PM [facility] Name Value Range Interpretation Code Description Data Tyra rce(s) Supporting Document(s) TROPONIN T 0.03 NG/ML 0.00 - 0.10 [facility] TROPONIN T0.1 ng/ml Recommended as the c linical threshold value forTroponin T. ID Date Data Source [id number] 07/05/2020 04:52:00 PM [facility] Name Value Range Interpretation Code Description Data Tyra e(s) Supporting Document(s) CBC W/AUTOMATED DIFF [facility] COMPLETE BLOOD COUNT Leukocytes [#/volume] in Blood by Automated count 11.7 10^3/uL 4.2 - 11.0 H [facility] Erythrocytes [#/volume] in Blood by Automated count 3.11 10^6/uL 4. 20 - 5.40 L [facility] Hemoglobin [Mass/volume] in Blood 8.8 g/dL 12.0 - 16.0 L [facility] Hematocrit [Volume Fraction] of Blood by Automated count 26.7 % 3 7.0 - 47.0 L [facility] Erythrocyte mean corpuscular volume [Entitic volume] by Auto mated count 85.9 fL 81.0 - 101 [facility] Erythrocyte mean corpuscular hemoglobin [Entitic mass] by Automated count 28.3 pg 27.0 - 34.0 [facility] Erythrocyte mean corpuscular hemoglobin concentration [Mass/volume] by Automated count 33.0 g/dL 31.0 - 36.0 [facility] Erythrocyte distribution width [Ratio] by Automated count 12.9 % 11.5 - 14.5 [facility] Platelets [#/volume] in Blood by Automated count 234 10^3/uL 150 - 45 0 [facility] Platelet mean volume [Entitic volume] in Blood by Automated count 10.3 fL 7.4 - 10.4 [facility] Neutrophils/100 leukocytes in Blood by Automated count 74.3 % 37. 0 - 80.0 [facility] Lymphocytes/100 leukocytes in Blood by Manual count 15.1 % 25.0 - 40.0 L [facility] Monocytes/100 leukocytes in Blood by Automated count 7.5 % 3.0 - 8.0 [facility] Eosinophils/100 leukocytes in Blood by Automated count 1.8 % 0.0 - 7.0 [facility] Basophils/100 leukocytes in Blood by Automated count 0.3 % 0.0 - 2.5 [facility] %IG 1.0 % 0.0 - 0.0 H [facility] %NRBC 0.0 % 0.0 - 0.0 [facility] Neutrophils [#/volume] in Blood by Automated count 8.73 10^3/uL 2.00 - 6.90 H [facility] Lymphocytes [#/volume] in Blood by Automated count 1.77 10^3/uL 0.60 - 3.40 [facility] Monocytes [#/volume] in Blood by Automated count 0.88 10^3/uL 0.00 - 0.90 [facility] Eosinophils [#/volume] in Blood by Automated count 0.21 10^3/uL 0.00 - 0.70 [facility] Basophils [#/volume] in Blood by Automated count 0.03 10^3/uL 0.00 - 0.20 [facility] #IG 0.12 10^3/uL 0.00 - 0.10 H [facility]sp[facility] #NRBC 0.00 10^3/uL 0.00 - 0.00 [facility] ospital MANUAL DIFF NOT INDICATED [facility] RBC MORPH NOT INDICATED [facility] spital ID Date Data Source [id number] 05/31/2020 04:25:00 PM EDT [facility] 1 OrderSheet [facility] Emergency Department [address] [place] [address] Phone #: ext- [phone] 05/31/2020 16:14 Patient: OXANA CLANCY Sex: F : 1950 Age: 69yWEIGHT:90.4 kg (M) HEIGHT:61 inches (S) BMI:37.7ALLERGIES: PenicillinsCHIEF COMPLAINT: Rt, index fingerDIAGNOSIS: Laceration - InjuryLAB ORDERSOrder Description Priority Entered Acknowledged InitialedDIAGNOSTIC STUDY ORDERSOrder Description Priority Entered Acknowledged InitialedMEDICATION/IV/DRIP/FLUID ORDERSOrder Description Priority Entered Acknowledged InitialedSilver Nitrate Swab 17:32 05/31/2020 17:53 Rosio,1 application Justino Montes R.N., P.A.-C; GENERAL ORDERSOrder Description Priority Entered Acknowledged Initialed[Electronically signed by Simon Avelar R.N. (18:56 05/31/2020)][Electronically signed by Justino Luna P.A.-C (23:24 05/31/2020)][Electronically locked by Simon Avelar R.N. (18:56 05/31/2020)] Name Value Range Interpretation Code Description Data Tyra rce(s) Supporting Document(s) ID Date Data Source [id number] 05/31/2020 04:25:00 PM EDT [facility] 1 Medication Reconciliation Report [facility] Emergency Department [address] [place] [address] Phone #: ext- [phone] 05/31/2020 16:14 Patient: OXANA CLANCY Sex: F : 1950 Age: 69yWeight: 90.4 kgHeight/Length: 61 in.BMI: 37.7ALLERGIES: PenicillinsThe patient's Home Medications are listed below:THE FOLLOWING MEDICATIONS NEED TO BE RECONCILED: Aspirin Oral 81 mg, daily Atorvastatin Calcium Oral 40 mg, daily Calcitriol Oral Ferrous Gluconate Oral (324 (37.5 Fe) mg) 1 tablet, 2x a day HumuLIN R U-500 (CONCENTRATED) Subcutaneous, 3x a day, Morning 80units Lunch 75 units Night 85 units HydrOXYzine HCl Oral 10 mg, 3x a day, prn Labetalol HCl Oral (200 mg) 1 tablet, 2x a day, last dose: [id number] Lasix Oral (80 mg), daily Losartan Potassium Oral 50 mg, daily Multivitamins Oral 1 pill, daily Omeprazole Oral 40 mg, daily Potassium Citrate ER Oral (10 MEQ (1080 MG)) 1 tablet, 2x a day ROPINIRole HCl Oral (1 mg) 1 tablet, 2x a day, last dose: [id number] Sertraline HCl Oral 50 mg, 2x a day Spironolactone Oral 50 mg, 2x a day 2 Medication Reconciliation Report [facility] Emergency Department [address] [place] [address] Phone #: ext- [phone] 05/31/2020 16:14 Patient: OXANA CLANCY Sex: F : 1950 Age: 69y TraZODone HCl Oral 150 mg, daily Vitamin D3 Oral (1000 unit) 1 tablet, daily The source(s) of the original Home Medication information:patientThe following Medications were given to the patient in the Emergency Department:SILVER NITRATE SWAB Topical 1 application, administered: 05/31/2020 5:53:00 PMThe following Medications were prescribed to the patient:None. Name Value Range Interpretation Code Description Data Tyra rce(s) Supporting Document(s) ID Date Data Source [id number] 05/31/2020 04:25:00 PM EDT [facility] 1 Medication Administration Record [facility] Emergency Department [address] [place] [address] Ph one #: ext- [phone] 05/31/2020 16:14 Patient: OXANA CLANCY Sex: F : 1950 Age: 69yWeight: 90.4 kgHeight/Length: 61 inBMI: 37.7ALLERGIES: Penicillins Date/Time Medication Administered Medication OrderedGiven SILVER NITRATE SWAB Silver Nitrate Swab 1 [id number] 05/31/2020 Dose: 1 application Topical SolutionSimon Avelar R.N. Topical Name Value Range Interpretation Code Description Data Tyra rce(s) Supporting Document(s) ID Date Data Source [id number] 05/31/2020 04:25:00 PM EDT [facility] 1 General Instructions [facility] Emergency Department [address] [place] [address] Phon e #: ext- [phone] 05/31/2020 16:14 Patient: OXANA CLANCY Sex: F : 1950 Age: 69y Single superficial laceration to the right index finger. No foreign body present or right fingernail injury.INSTRUCTIONS Elevate affected areas above chest level. No dietary restrictions. Warnings: COMPLICATIONS: Complications from this condition are possible. INFECTION: Watch for signs of infection (increasing heat and redness, pus-like drainage, swelling, or increased pain). Return or see your doctor if these signs occur. GENERAL WARNINGS: Return or contact your physician immediately if your condition worsens or changes unexpectedly, if not improving as expected, or if other problems arise. Follow-up: Return to the emergency department as needed. Follow up with your healthcare provider in about two days if not better. Call for an appointment. Understanding of the discharge instructions verbalized by patient. ADDITIONAL INFORMATIONLaceration: All ClosuresA laceration is a cut through the skin. This will usually require stitches (sutures) or louann if it is deep.Minor cuts may be treated with a chun rgical tape closure or skin glue. 2 General Instructions [facility] Emergency Department [address] [place] [address] Phone #: ext- [phone] 05/31/2020 16:14 Patient: OXANA CLANCY Sex: F : 1950 Age: 69yHome care Your healthcare provider may prescribe an antibiotic. This is to help prevent infection. Follow all instructions for taking this medicine. Take the medicine every day until it is gone or you are told to stop. You should not have any left over. The healthcare provider may prescribe medicines for pain. If no pain medicines were prescribed, you can use njfh-dns-bifhzqv pain medicines. Follow instructions for taking any pain medicines. (Note: If you have chronic liver or kidney disease, or ever had a stomach ulcer or gastrointestinal bleeding, talk with your doctor before using these medicines.) Follow the healthcare provider's instructions on how to care for the cut. Keep the wound clean and dry. Do not get the wound wet until you are told it is OK to do so. If the area gets wet, gently pat it dry with a clean cloth. R eplace the wet bandage with a dry one. If a bandage was applied and it becomes wet or dirty, replace it. Otherwise, leave it in place for the first 24 hours. Caring for sutures or louann: Once you no longer need to keep them dry, clean the wound daily. First, remove the bandage. Then wash the area gently with soap and warm water, or as directed by the healthcare provider. Use a wet cotton swab to loosen and remove any blood or crust that forms. After cleaning, apply a thin layer of antibiotic ointment if advised. Then put on a new bandage unless you are told not to. Caring for skin glue: Don't put apply liquid, ointment, or cream on the wound while the glue is 3 General Instructions [facility] Emergency Department [address] [place] [address] Phone #: ext- [phone] 05/31/2020 16:14 Patient: OXANA CLANCY Sex: F : 1950 Age: [address] Avoid activities that cause heavy sweating. Protect the wound from sunlight. Do not scratch, rub, or pick at the adhesive film. Do not place tape directly over the film. The glue should peel off within 5 to 10 days. Caring for surgical tape: Keep the area dry. If it gets wet, blot it dry with a clean towel. Surgical tape usually falls off within 7 to 10 days. If it has not fallen off after 10 days, you can take it off yourself. Put mineral oil or petroleum jelly on a cotton ball and gently rub the tape until it is removed. Once you can get the wound wet, you may shower as usual but do not soak the wound in water (no tub baths or swimming) Even with proper treatment, a wound infection may sometimes occur. Check the wound daily for signs of infection listed below.Scalp woundsDuring the first 2 days, you may carefully rinse your hair in the shower to remove blood, glass or dirtparticles. After two days, you may shower and shampoo your hair normally. Do not soak your scalp inthe tub or go swimming until the stitches or louann have been removed. Talk with your healthcareprovider before applying any antibiotic ointment to the wound.Mouth woundsEat soft foods to reduce pain. If the cut is inside of your mouth, clean by rinsing after each meal andat bedtime with a mixture of equal parts water and hydrogen peroxide (do not swallow!). Or, you canuse a cotton swab to directly apply hydrogen peroxide onto the cut. You may also be prescribed achlorhexidine solution to rise with. Mouth wounds can be painful when eating. You may use xvcqyu-fku-pknzwrz local numbing solution for pain relief. If this is not available, you may use anynumbing solution intended for teething babies. You may apply this directly to the sores with acotton-tip swab or with your finger.Follow-up careFollow up with your healthcare provider as advised. Ask your healthcare provider how long suturesshould be left in place. Be sure to return for suture removal as directed. If dissolving stitches wereused in the mouth, these should fall out or dissolve without the need for removal. If tape closureswere used, remove them yourself when your provider recommends if they have not fallen off on theirown. If skin glue was used, the film will wear off by itself. Generally, you should keep healing woundsout of direct sunlight for the first couple of months to try to lessen scarring.When to seek medical adviceCall your healthcare provider right away if any of these occur: 4 General Instructions [facility] Emergency Department [address] [place] [address] Phone #: ext- [phone] 05/31/2020 16:14 Patient: OXANA CLANCY Sex: F : 1950 Age: 69y Signs of infection, including increasing pain in the wound, increasing wound redness or swelling, or pus or bad odor coming from the wound Fever of 100.4F (38.C) or higher, or as directed by your healthcare provider Stitches or louann come apart or fall out or surgical tape falls off before 7 days Wound edges reopen Wound changes colors Numbness around the wound after any numbing medicine should have worn off Decreased movement around the injured areaCall 911Call 911 if you can't control the wound bleeding with direct pressure. 1999- 2017 [employer]. [address] [place] [address]. All rights reserved. This information is not intended as asubstitute for professional medical care. Always follow your healthcare professional's instructions. You have been given the following additional information: Laceration: All Closures(Electronically signed by Justino Luna P.A.-C 05/31/2020 23:24) Name Value Range Interpretation Code Description Data Tyra rce(s) Supporting Document(s) ID Date Data Source [id number] 05/31/2020 04:25:00 PM EDT [facility] 1 Clinical Report - Nurses [facility] Emergency Department [address] [place] [address] Phone #: ext- [phone] 05/31/2020 16:14 Patient: OXANA CLANCY Sex: F : 1950 Age: 69yTRIAGEArrived by private vehicle. Historian: patient. ( Pt presents with left thumb, pointer and ring finger lacfrom yesterday AM 0900, was seen at [facility] ER then urgent care c/o increased bleeding to [facility]).Acuity: LEVEL 3.Chief Complaint: INJURY TO LEFT HAND.Alert. No acute distress.Occurred 09:00 05/30/2020. The patient sustained a laceration.Pre-hospital notification of patient arrival was not received.SEPSIS SCREEN: SIRS Screen negative. Sepsis Screen negative. No suspected or confirmed signs ofinfection present. --16:28 05/31/20 Evangelina Yanez R.N.16:22 05/31/20. BP: 192/64. MAP: 106. HR: 81 (regular). RR: 20 (regular and unlabored). O2 saturation:97% on room air. Temp: 98.5 F (oral). Pain level now: 10. --16:28 05/31/20 Evangelina Yanez R.N.Weight: 90.4 kg measured. Height/Length: 61 inches Per Patient. BMI: 37.7. --16:21 05/31/20 Evangelina Yanez R.N.MedicationsAspirin Oral 81 mg, daily. Atorvastatin Calcium Oral 40 mg, daily. Calcitriol Oral. Ferrous Gluconate Oral (Tablet 324 (37.5 Fe) mg) 1 tablet, 2x a day. HumuLIN R U-500 (CONCENTRATED) Subcutaneous, 3x a day (Morning 80unitsLunch 75 unitsNight 85 units ). HydrOXYzine HCl Oral 10 mg, 3x a day as needed. Labetalol HCl Oral (Tablet 200 mg) 1 tablet, 2x a day, last dose 44. Lasix Oral (Tablet 80 mg), daily. Losartan Potassium Oral 50 mg, daily. Multivitamins Oral 1 pill, daily. Omeprazole Oral 40 mg, daily. Potassium Citrate ER Oral (Tablet Extended Release 10 MEQ (1080 MG)) 1 tablet, 2x a day. ROPINIRole HCl Oral (Tablet 1 mg) 1 tablet, 2x a day, last dose 44. Sertraline HCl Oral 50 mg, 2x a day. Spironolactone Oral 50 mg, 2x a day. TraZODone HCl Oral 150 mg, daily. 2 Clinical Report - Nurses [facility] Emergency Department [address] [place] [address] Phone #: ext- [phone] 05/31/2020 16:14 Patient: OXANA CLANCY Sex: F : 1950 Age: 69y Vitamin D3 Oral (Tablet 1000 unit) 1 tablet, daily. --17:20 05/31/20 Justino Luna P.A.-C. Allergies Penicillins. --16:28 05/31/20 Evangelina Yanez R.N. Medication/allergy information source: the patient. --16:28 05/31/20 Evangelina Yanez R.N. History PAST MEDICAL HX: Diabetes mellitus. Heart disease. Last tetanus: (2 weeks ago). Immunizations: up-to-date. The patient is post-menopausal. SOCIAL HX: Never smoker. No alcohol use or drug use. The patient was offered HIV testing but declined and hepatitis C testing but declined. The patient has not traveled outside the [place] Infectious disease exposure: No infectious disease exposure. SELF HARM ASSESSMENT: Self harm assess ment was performed. The patient answered "no" to the question(s) "Have you recently felt down, depressed, or hopeless?", "Do you have thoughts of harming or killing yourself?", "Do you have a plan for harming or killing yourself?", "Have you recently had thoughts about harming or killing others?", "Do you have any dangerous items in your possession?", "Have you noticed less interest or pleasure in doing things?", "Are you here because you tried to hurt yourself?" and "Have you ever tried to hurt yourself before today?". ABUSE ASSESSMENT: No report of abuse. NUTRITIONAL RISK ASSESSMENT: The nutritional risk assessment revealed no deficiencies. FUNCTIONAL ASSESSMENT: Functional assessment: no impairments noted. LEARNING NEEDS ASSESSMENT: The learning needs assessment revealed no barriers. FALL RISK ASSESSMENT: Fall risk assessment completed. No risk factors identified. SKIN INTEGRITY ASSESSMENT: Skin integrity risk assessment completed. No skin integrity risk identified. --16:28 05/31/20 Evangelina Yanez R.N.NURSING PROGRESS NOTESReassurance given. Call light placed in reach. Bed placed in lowest position. Brakes of bed on.Patient ready for evaluation. ( Pt presents with fingers dressed; dressings removed. Active bleeding fromlaceration - left pointer finger.). --16:29 05/31/20 Evangelina Yanez R.N. 17:53 05/31/2020 SILVER NITRATE SWAB Topical Topical Solution 1 application --17:53 05/31/20 Simon Avelar R.N.DISPOSITION / DISCHARGE No learning barriers present. Written instructions provided in Gabonese. 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 She was discharged home. She left ambulatory and via private vehicle. Patient driving. --18:56 05/31/20 Simon Avelar R.N. 18:56 05/31/20. BP: 144/86. MAP: 105. HR: 66. RR: 18. O2 saturation: 97%. Temp: deferred. Pain level now: 0/10. --18:56 05/31/20 Simon Avelar R.N. Departure time: 18:56 05/31/2020. --18:56 05/31/20 Simon Avelar R.N.Locked/Released at 05/31/2020 18:56 by Simon Avelar R.N. Name Value Range Interpretation Code Description Data Tyra rce(s) Supporting Document(s) ID Date Data Source [id number] 05/31/2020 04:25:00 PM EDT [facility] 1 Clinical Report - Physicians/Mid Levels [facility] Emergency Department [address] [place] [address] Phone #: ext- [phone] 05/31/2020 16:14 Patient: OXANA CLANCY Sex: F : 1950 Age: 69y Time Seen: 17:16 05/31/2020; initial patient contact, initial documentation. Arrived- By private vehicle.HISTORY OF PRESENT ILLNESS Chief Complaint: Injury to the right index finger. The injury happened yesterday. Occurred at home. The patient sustained a laceration. Patient is not experiencing pain. ( Pt presents with laceration to the left thumb, index and ring finger from yesterday AM 0900. Pt was seen at [facility] ER, then to urgent care today c/o increased bleeding to pointer finger. Pt sts that she is on thinners nad the index finger bled all night and has not stopped and thus came to the ER as she did not know what to do. Pt has no other compalints).REVIEW OF SYSTEMS The patient sustained a laceration. No swelling, tingling, numbness, weakness or foreign body. All other systems reviewed and are negative.PAST HISTORY See nurses notes. The patient's dominant hand is the right. 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 Nephropathy [Chronic]. Atrial Fibrillation [Chronic]. Lung Disease [Chronic]. Anemia [Chronic]. Aortic Stenosis [Chronic]. Depression [Chronic]. Coronary Artery Disease [Chronic]. Gastroesophageal Reflux Disease [Chronic]. GI Disease [Chronic]. Hypercholesterolemia [Chronic]. Congestive Heart Failure [Chronic]. Heart Murmur [Chronic]. Renal Insufficiency [Chronic]. Renal Insufficiency. COPD - Chronic Obstructive Pulmonary Disease. Chest Wall Pain. Cardiac Procedures. Congestive Heart Failure. Anemia. 2 Clinical Report - Physicians/[facility] Emergency Department [address] [place] [address] Phone #: ext- [phone] 05/31/2020 16:14 Patient: OXANA CLANCY [facility]#: [id number] Sex: F : 1950 Age: 69yHeart Disease.Hyperglycemia.Hypertension.Skin Avulsion.Other Disease.Diabetes Mellitus.Epistaxis [Resolved].Fall [Resolved].Hyperkalemia [Resolved].Dizziness [Resolved].Chest Pain [Resolved].Contusion [Resolved].Dehydration [Resolved].Acute Myocardial Infarction [Resolved].Pneumonia [Resolved].Pleural Effusion [Resolved].Additional Surgeries:Appendectomy.Back Surgery.Carpal Tunnel Surgery.Coronary Artery Bypass Graft.Hernia Repair.Hysterectomy.Knee Surgery.Transcatheter Aortic Valve Replacement.Valve Replacement [09/2018].Medications:Aspirin Oral 81 mg, daily.Atorvastatin Calcium Oral 40 mg, daily.Calcitriol Oral.Ferrous Gluconate Oral (Tablet 324 (37.5 Fe) mg) 1 tablet, 2x a day.HumuLIN R U-500 (CONCENTRATED) Subcutaneous, 3x a day (Morning 80unitsLunch 75 unitsNight 85 units ).HydrOXYzine HCl Oral 10 mg, 3x a day as needed.Labetalol HCl Oral (Tablet 200 mg) 1 tablet, 2x a day, last dose [id number].Lasix Oral (Tablet 80 mg), daily.Losartan Potassium Oral 50 mg, daily.Multivitamins Oral 1 pill, daily.Omeprazole Oral 40 mg, daily.Potassium Citrate ER Oral (Tablet Extended Release 10 MEQ (1080 MG)) 1 tablet, 2x a day.ROPINIRole HCl Oral (Tablet 1 mg) 1 tablet, 2x a day, last dose [id number]. 3 Clinical Report - Physicians/Mid Levels [facility] Emergency Department [address] [place] [address] Phone #: ext- [phone] 05/31/2020 16:14 Patient: OXANA CLANCY Sex: F : 1950 Age: 69y Sertraline HCl Oral 50 mg, 2x a day. Spironolactone Oral 50 mg, 2x a day. TraZODone HCl Oral 150 mg, daily. Vitamin D3 Oral (Tablet 1000 unit) 1 tablet, daily. Allergies: Penicillins.SOCIAL HISTORY Never smoker. No alcohol use or drug use.ADDITIONAL NOTES The nursing notes have been reviewed.PHYSICAL EXAM Vital Signs: 05/31/2020 16:22 BP: 192/64. MAP: 106. HR: 81. RR: 20. O2 saturation: 97% on room air. Temp: 98.5 F. Pain level now: 2/10. Have been reviewed. Oxygen saturation normal. Appearance: Alert. Oriented X3. No acute distress. ENT: Voice normal. CVS: Normal heart rate and rhythm. No JVD present. Pulses normal. Capillary refill normal. Strong peripheral pulses. Pulses: right radial 2+; left radial 2+. Respiratory: Chest normal on inspection. No respiratory distress. Unlabored respirations. Lungs clear. Good chest movement. Breath sounds normal and equal. Skin: Skin warm and dry. Extremities: Right thumb: superficial laceration with controlled bleeding. Neurovascular intact distally. No erythema, tenderness or swelling. Tip of right index finger: superficial avulsion with active bleeding. No erythema or swe lling. No nail avulsion, exposed bone or loss of the nail bed on the right index finger or tip amputation of the right index finger. No right wrist abnormality. No wrist injury. Extremities otherwise negative. Neuro, Vascular and Tendons: Vascular status intact. Sensation intact. Motor intact. Tendon function intact. (AIN, PIN, R/U/M intact b/l UE. N/V intact. SILT. A/P FROM). Neuro: Awake. Alert. Mood/affect normal. Speech normal. No motor deficit. No sensory deficit. Psych: Cognition normal. Thought process and content normal. Insight and judgement normal.PROGRESS AND PROCEDURES Course of Care: VSS, NAD, AOx3, interacting well and appropriately, no use of accessory muscle, able to speak full sentences, stable, non-toxic looking. Enter room and pt lying peacefully in bed in NAD. Patient stable. Denies any new issues, concerns, or complaints. PE dmeos NV intact b/l UE. Noted a superfiscial avulsion of the R index and ntoed a small spot of active bleeding. Pt sts that this has bled all night. Pt denies any s/s other than haveing to change bandage. Wound wound not need sutureing, but >30hrs, thus couldn't. Will utilize silver nitrate to area to chemcial 4 Clinical Report - Physicians/Mid Levels [facility] Emergency Department [address] [place] [address] Phone #: ext- [phone] 05/31/2020 16:14 Patient: OXANA CLANCY Sex: F : 1950 Age: 69y cauterize and then bandage. Have pt apply pressure as I prep. Enter room and pt sleeping peacefully in bed and easily awakend. Sts that the pressure alone was able to stop the bleeding. Noted area, may start again easily. Utilized silver nitrate to aera. Ensure no bleeding. Bandage appleid and pt tolerated well. Discussed results with pt. Discussed tx plan with pt. Discussed and counseled on stable condition. Discussed importance of a f/u with PCP. Discussed return to ER criteria. Answered their questions. Indicates and verbalizes that they understand, agree, and will comply with above. Denies any new questions or concerns. Patient has capacity to understand. Discharge decision based on the following: patient's condition is stable; patient's exam is stable; social support is adequate; transportation is available; follow-up is available. Discussed of OTC Motrin and Tylenol to control inflammation and pain management. Informed to follow directions on bottle that are appropriate for age and/or weight. Disposition: Discharged home in good and improved condition. Condition: good and stable.CLINICAL IMPRESSION Single superficial laceration to the right index finger. No foreign body present or right fingernail injury.INSTRUCTIONS Elevate affected areas above chest level. No dietary restrictions. Warnings: COMPLICATIONS: Complications from this condition are possible. INFECTION: Watch for signs of infection (increasing heat and redness, pus-like drainage, swelling, or increased pain). Return or see your doctor if these signs occur. GENERAL WARNINGS: Return or contact your physician immediately if your condition worsens or changes unexpectedly, if not improving as expected, or if other problems arise. Follow-up: Return to the emergency department as needed. Follow up with your healthcare provider in about two days if not better. Call for an appointment. Understanding of the discharge instructions verbalized by patient. 5 Clinical Report - Physicians/Mid Levels [facility] Emergency Department [address] [place] [address] Phone #: ext- [phone] 05/31/2020 16:14 Patient: OXANA CLANCY Sex: F : 1950 Age: 69y(Electronically signed by Justino Luna P.A.-C 05/31/2020 23:24) Name Value Range Interpretation Code Description Data Tyra rce(s) Supporting Document(s) ID Date Data Source [id number] 05/19/2020 07:31:00 PM EDT [facility] 1 OrderSheet [facility] Emergency Department [address] [place] [address] Phone #: ext- [phone] 05/19/2020 19:17 Patient: OXANA CLANCY Sex: F : 1950 Age: 69yWEIGHT:90.7 kg (S) HEIGHT:61 inches (S) BMI:37.8ALLERGIES: PenicillinsCHIEF COMPLAINT: Rt, great toeDIAGNOSIS: Avulsion of skinLAB ORDERSOrder Description Priority Entered Acknowledged InitialedDIAGNOSTIC STUDY ORDERSOrder Description Priority Entered Acknowledged InitialedMEDICATION/IV/DRIP/FLUID ORDERSOrder Description Priority Entered Acknowledged InitialedCephalexin PO 500 20:12 05/19/2020 20:15 mg Campbell Lee R.N.; Reason for ordering with alerts: Clinical consideration given -- 20:12 05/19/2020 Campbell Sierra IM 0.5 mL 20:27 05/19/2020 Ack'd: 20:29 Vivi 20:43 Vivi HAMPTON;GENERAL ORDERSOrder Description Priority Entered Acknowledged Initialed[Electronically signed by Campbell Banegas (21:43 05/19/2020)][Electronically signed by Harry Lee R.N. (22:10 05/19/2020)][Electronically locked by Harry Lee R.N. (22:10 05/19/2020)] Name Value Range Interpretation Code Description Data Tyra rce(s) Supporting Document(s) ID Date Data Source [id number] 05/19/2020 07:31:00 PM EDT [facility] 1 Medication Reconciliation Report [facility] Emergency Department [address] [place] [address] Phone #: ext- [phone] 05/19/2020 19:17 Patient: OXANA CLANCY Sex: F : 1950 Age: 69yWeight: 90.7 kgHeight/Length: 61 in.BMI: 37.8ALLERGIES: [facility] patient's Home Medications are listed below:CONTINUE TAKING THE FOLLOWING MEDICATIONS: Aspirin Oral 81 mg, daily Atorvastatin Calcium Oral 40 mg, daily Calcitriol Oral Ferrous Gluconate Oral (324 (37.5 Fe) mg) 1 tablet, 2x a day HumuLIN R U-500 (CONCENTRATED) Subcutaneous, 3x a day, Morning 80units Lunch 75 units Night 85 units HydrOXYzine HCl Oral 10 mg, 3x a day, prn Labetalol HCl Oral (200 mg) 1 tablet, 2x a day, last dose: [id number] Lasix Oral (80 mg), daily Losartan Potassium Oral 50 mg, daily Multivitamins Oral 1 pill, daily Omeprazole Oral 40 mg, daily Potassium Citrate ER Oral (10 MEQ (1080 MG)) 1 tablet, 2x a day ROPINIRole HCl Oral (1 mg) 1 tablet, 2x a day, last dose: [id number] Sertraline HCl Oral 50 mg, 2x a day Spironolactone Oral 50 mg, 2x a day 2 Medication Reconciliation Report [facility] Emergency Department [address] [place] [address] Phone #: ext- [phone] 05/19/2020 19:17 Patient: OXANA CLANCY Sex: F : 1950 Age: 69y TraZODone HCl Oral 150 mg, daily Vitamin D3 Oral (1000 unit) 1 tablet, dailyThe source(s) of the original Home Medication information:Not obtained.The following Medications were given to the patient in the Emergency Department:Cephalexin [PO] PO 500 mg, administered: 05/19/2020 8:15:00 PMTDAP [IM] IM 0.5 mL, administered: 05/19/2020 8:37:00 PMThe following Medications were prescribed to the patient:Keflex 500 mg capsule Take 1 capsule three times a day as directed for 10 days -- Dispense 30capsule. Refills: 0. Substitution permitted.Pharmacy - [facility] [phone] ; [place] [address]. . -- BERTA Almonte Name Value Range Interpretation Code Description Data Tyra rce(s) Supporting Document(s) ID Date Data Source [id number] 05/19/2020 07:31:00 PM EDT [facility] 1 Medication Administration Record [facility] Emergency Department [address] [place] [address] Phone #: ext- [phone] 05/19/2020 19:17 Patient: OXANA CLANCY Sex: F : 1950 Age: 69yWeight: 90.7 kgHeight/Length: 61 inBMI: 37.8ALLERGIES: Penicillins Date/Time Medication Administered Medication OrderedGiven CEPHALEXIN [PO] Cephalexin PO 500 mg20:15 05/19/2020 Dose: 500 mg Capsules Harry Hathaway RBoydNBoydGiven TDAP [IM] Tdap IM 0.5 mL20:37 05/19/2020 Dose: 0.5 mL Syd Quintanilla RDakota Name Value Range Interpretation Code Description Data Tyra rce(s) Supporting Document(s) ID Date Data Source [id number] 05/19/2020 07:31:00 PM EDT [facility] 1 General Instructions [facility] Emergency Department [address] [place] [address] Phone #: ext- [phone] 05/19/2020 19:17 Patient: OXANA CLANCY Sex: F : 1950 Age: 69ySingle superficial skin avulsion of the right great toe. Delayed treatment.No right toenail injury, infectionpresent or foreign body present.INSTRUCTIONSProtect wound and keep wound area clean.Warnings: INFECTION: Watch for signs of infection (increasing heat and redness, pus-like drainage,swelling, or increased pain). Return or see your doctor if these signs occur.Your Current Medications: Your current home medications have been reviewed.CONTINUE TAKING THE FOLLOWING MEDICATIONS:Aspirin Oral : 81 mg daily.Atorvastatin Calcium Oral : 40 mg daily.Calcitriol Oral.Ferrous Gluconate Oral : Tablet 324 (37.5 Fe) mg, 1 tablet 2x a day.HumuLIN R U-500 (CONCENTRATED) Subcutaneous : 3x a day, Morning 80unitsLunch 75 unitsNight 85 units.HydrOXYzine HCl Oral : 10 mg 3x a day, prn.Labetalol HCl Oral : Tablet 200 mg, 1 tablet 2x a day, Last: 44.Lasix Oral : Tablet 80 mg, daily.Losartan Potassium Oral : 50 mg daily.Multivitamins Oral : 1 pill daily.Omeprazole Oral : 40 mg daily.Potassium Citrate ER Oral : Tablet Extended Release 10 MEQ (1080 MG), 1 tablet 2x a day.ROPINIRole HCl Oral : Tablet 1 mg, 1 tablet 2x a day, Last: 44.Sertraline HCl Oral : 50 mg 2x a day.Spironolactone Oral : 50 mg 2x a day.TraZODone HCl Oral : 150 mg daily.Vitamin D3 Oral : Tablet 1000 unit, 1 tablet daily.Prescription Medications:Keflex 500 mg capsule Take 1 capsule three times a day as directed for 10 days -- Dispense 30capsule. Refills: 0. Substitution permitted.Pharmacy - [facility] [phone] ; [place] [address]. . 2 General Instructions [facility] Emergency Departme nt [address] [facility], [place] [address] Phone #: ext- [phone] 05/19/2020 19:17 Patient: OXANA CLANCY Sex: F : 1950 Age: 69yFollow-up:Follow up with a specialist Podiatry. Reason for referral: evaluation and treatment. Summary of careprovided to patient.Understanding of the discharge instructions verbalized by patient. ADDITIONAL INFORMATIONSkin Tear (Skin Avulsion)A skin avulsion is a tearing of the top layer of skin. This commonly happens after a fall or other injury.It also tends to be more common in older people, or those taking blood thinners or steroids for longperiods of time.Home careThese guidelines will help you care for your wound at home: Keep the wound clean and dry for the first 24 to 48 hours, or as your healthcare provider advises. If there is a dressing or bandage, change it when it gets wet or dirty. Otherwise, leave it on for the first 24 hours, then change it once a day or as often as the doctor says. If stitches or louann were used, check the wound every day. After taking off the dressing, wash the area gently with soap and water. Clean as close to the stitches as you can. Avoid washing or rubbing the stitches directly. After 3 days you can keep the bandages off the wound, unless told otherwise, or there is continued drainage. Allow the wound to be open to the air. Keep a thin layer of antibiotic ointment on the cut. This will keep the wound clean, make it easier to remove the stitches, and reduce scarring. If your wound is oozing, you can put a nonstick dressing over it. Then, reapply the bandage or dressing as you were told. You can shower as usual after the first 24 hours, but don't soak the area in water (no baths or swimming) until the stitches or louann are taken out. If surgical tape was used, keep the area clean and dry. If it becomes wet, blot it dry with a clean towel. If skin glue was used, don't put any creams, lotions, or antibiotic ointments on it. These can dissolve the glue. Usually the glue will flake off in about 5 to 10 days by its elf. Try to resist 3 General Instructions [facility] Emergency Department [address] [place] [address] Phone #: ext- [phone] 05/19/2020 19:17 Patient: OXANA CLANCY Sex: F : 1950 Age: 69y picking it off before that so the wound doesn't open up. When it gets wet, pat it dry.Here is some information about medicine: You may use wybz-fxs-mwnhpwy medicine such as acetaminophen or ibuprofen to control pain, unless another pain medicine was given. If you have chronic liver or kidney disease or ever had a stomach ulcer or gastrointestinal bleeding, talk with your doctor before using these medicines. If you were given antibiotics, take them until they are all used up. It is important to finish the antibiotics even if the wound looks better. This will ensure that the infection has cleared.Follow-up careFollow up with your healthcare provider, or as advised. Watch for any signs of infection, such as increasing redness, swelling, or pus coming out. If this happens, don't wait for your scheduled visit. Instead, see a doctor so elio. Stitches or louann are usually taken out within 5 to 14 days. This varies depending on what part of your body they are on, and the type of wound. The doctor will tell you how long stitches should be left in. If surgical tape was used, it is usually left on for 7 to 10 days. You can remove surgical tape after that unless you were told otherwise. If you try to remove it, and it is too hard, soaking can help. Surgical tape strips will eventually fall off on their own. If the edges of the cut pull apart, stop removing the tape or strips and follow up with your doctor As mentioned above, skin glue will flake off by itself in 5 to 10 days, so you don't need to pull it off.If any X-rays were done, you will be notified of any changes that may affect your care.When to seek medical adviceCall your healthcare provider right away if any of these occur: Increasing pain in the wound Redness, swelling, or pus coming from the wound Fever of 100.4F (38C) or higher, or as directed by your healthcare provider Sutures or louann come apart or fall out before your next appointment and the wound edges look as if they will re- open Surgical tape closures fall off before 7 days, and the wound edges look as if they will re-open 4 General Instructions [facility] Emergency Department [address] [place] [address] Phone #: ext- [phone] 05/19/2020 19:17 [id number] Sex: F : 1950 Age: 69y Bleeding not controlled by direct pressure 1999- 2017 [employer]. [address] [place] [address], [place] [address]. All rights reserved. This information is not intended as asubstitute for professional medical care. Always follow your healthcare professional's instructions. You have been given the following additional information: Skin Avulsion(Electronically signed by BERTA Almonte 05/19/2020 21:43) Name Value Range Interpretation Code Description Data Tyra rce(s) Supporting Document(s) ID Date Data Source [id number] 05/19/2020 07:31:00 PM EDT [facility] 1 Clinical Report - Nurses [facility] Emergency Department [address] [place] [address] Phone #: ext- [phone] 05/19/2020 19:17 Patient: OXANA CLANCY Sex: F : 1950 Age: 69yTRIAGEArrived by private vehicle. Historian: patient. Accompanied by friend.Triage time: 19:05/19/2020.Chief Complaint: RIGHT LOWER EXTREMITY PAIN.An injury may have occurred. Occurred at home. This started last night. ( Tore skin off the outside ofright great toe). 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 Sepsis Screen negative. No suspected or confirmed signs ofinfection present. --19:05/19/20 Matt Quintanilla RN19:05/19/20. BP: 138/64 (regular adult cuff) taken on the left arm, via an automated monitor, whilelying. MAP: 88. HR: 71 (regular, normal rate and strong). RR: 18 (regular, unlabored and normal). [id number]: 97% on room air. Temp: 97.7 F. Pain level now: 0/10. --19:25 05/19/20 LORRAINE Brownecuity: LEVEL 4. --19:32 05/19/20 Matt Quintanilla RN.Weight: 90.7 kg stated. Height/Length: 61 inches Per Patient. BMI: 37.8. --19:21 05/19/20 Matt Quintainlla RN.MedicationsAspirin Oral 81 mg, daily. Atorvastatin Calcium Oral 40 mg, daily. Calcitriol Oral. Ferrous Gluconate Oral (Tablet 324 (37.5 Fe) mg) 1 tablet, 2x a day. HumuLIN R U-500 (CONCENTRATED) Subcutaneous, 3x a day (Morning 80unitsLunch 75 unitsNight 85 units ). HydrOXYzine HCl Oral 10 mg, 3x a day as needed. Labetalol HCl Oral (Tablet 200 mg) 1 tablet, 2x a day, last dose 44. Lasix Oral (Tablet 80 mg), daily. Losartan Potassium Oral 50 mg, daily. Multivitamins Oral 1 pill, daily. Omeprazole Oral 40 mg, daily. Potassium Citrate ER Oral (Tablet Extended Release 10 MEQ (1080 MG)) 1 tablet, 2x a day. ROPINIRole HCl Oral (Tablet 1 mg) 1 tablet, 2x a day, last dose 44. Sertraline HCl Oral 50 mg, 2x a day. 2 Clinical Report - Nurses [facility] Emergency Department [address] [place] [address] Phone #: ext- [phone] 05/19/2020 19:17 [id number] Sex: F : 1950 Age: 69y Spironolactone Oral 50 mg, 2x a day. TraZODone HCl Oral 150 mg, daily. Vitamin D3 Oral (Tablet 1000 unit) 1 tablet, daily. --19:31 05/19/20 Matt Quintanilla RN. Allergies Penicillins.(rash) --19:31 05/19/20 Matt Quintanilla RN. PROBLEMS: Anemia: Chronic. Renal Insufficiency: Chronic. Aortic Stenosis: Chronic. Anxiety Reaction: Chronic. Atrial Fibrillation: Chronic. Heart Murmur: Chronic. Hypercholesterolemia: Chronic. Coronary Artery Disease: Chronic. Congestive Heart Failure: Chronic. Depression: Chronic. Gastroesophageal Reflux Disease: Chronic. Nephropathy: Chronic. --19:32 05/19/20 Matt Quintanilla RN COPD - Chronic Obstructive Pulmonary Disease. Anemia. Cardiac Procedures. --19:32 05/19/20 Matt Quintanilla RN. History SOCIAL HX: Never smoker. No alcohol use or drug use. The patient was offered HIV testing but declined and hepatitis C testing but declined. The patient has not traveled outside the [place] Infectious disease exposure: No infectious disease exposure. Patient is not a known carrier of tuberculosis, hepatitis, HIV, MRSA or VRE. Barbara lopez is not a known carrier of CRE. SELF HARM ASSESSMENT: Self harm assessment was performed. The patient answered "no" to the question(s) "Have you recently felt down, depressed, or hopeless?", "Do you have thoughts of harming or killing yourself?", "Do you have a plan for harming or killing yourself?", "Have you recently had thoughts about harming or killing others?", "Do you have any dangerous items in your possession?", "Have you noticed less interest or pleasure in doing things?", "Are you here because you tried to hurt yourself?" and "Have you ever tried to hurt yourself before today?". ABUSE ASSESSMENT: No report of abuse. FALL RISK ASSESSMENT: Fall risk assessment completed. No risk factors identified. --19:25 05/19/20 Matt Quintanilla RN.PHYSICAL [id number] 05/19/20. Ambulatory to room. 3 Clinical Report - Nurses [facility] Emergency Department [address] [place] [address] Phone #: ext- [phone] 05/19/2020 19:17 --- [id number] Sex: F : 1950 Age: 69y GENERAL / NEURO / PSYCH: Oriented X 4. Alert. Appears in no acute distress. EXTREMITIES: Extremity pulses are within normal limits. Extremities exhibit normal ROM. Neuro-vascular status intact to the extremity. No lower extremity edema. Normal gait. Right big toe: tenderness, erythema and laceration with controlled bleeding (outer layer of skin removed. patient didnt know until she saw blood on floor. has no feeling in that foot.). SKIN: Skin intact. Skin is warm and dry. --19:59 05/19/20 Harry Lee R.N.NURSING PROGRESS NOTES20:15 05/19/2020 Cephalexin PO Capsules 500 mg given. Allergies verified and confirmed 5 rights.Information reviewed with patient including reason for taking this medication, signs of allergic reaction andprecautions. Verbalizes understanding. --20:16 05/19/20 Harry Lee R.N. 20:23 05/19/20. Reassurance given. Call light placed in reach. Bed placed in lowest position. Brakes of bed on. --20:48 05/19/20 Vivi Quintanilla R.N. 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 Given in the right deltoid. Allergies verified and confirmed 5 rights. Information reviewed with patient including reason for taking this medication. Verbalizes understanding. Vaccine information statement provided to the patient (Date of VIS Sheet 10/25/2014). --20:43 05/19/20 Vivi Quintanilla R.N.DISPOSITION / DISCHARGE Departure time: 20:46 05/19/2020. Condition at departure: stable. Reviewed medication(s). Prescription(s) sent electronically to pharmacy. Patient verbalized understanding. Written instructions provided in Gabonese. The patient was discharged by the physician anesthesiologist assistant certified. She was discharged home. She left ambulatory and via private vehicle. Family member driving. --20:47 05/19/20 Vivi Quintanilla R.N. 20:46 05/19/20. BP: deferred. HR: deferred. RR: deferred. O2 saturation: deferred. Temp: deferred. Pain level now deferred. --20:47 05/19/20 Vivi Quintanilla R.N.Locked/Released at 05/19/2020 22:10 by Harry Lee R.N. Name Value Range Interpretation Code Description Data Tyra rce(s) Supporting Document(s) ID Date Data Source [id number] 05/19/2020 07:31:00 PM EDT [facility] 1 Clinical Report - Physicians/Mid Levels [facility] Emergency Department [address] [place] [address] Phone #: ext- [phone] 05/19/2020 19:17 [id number] Sex: F : 1950 Age: 69y Time Seen: 20:00 05/19/2020. Arrived- By private vehicle. Historian- patient.HISTORY OF PRESENT ILLNESS Chief Complaint: Injury to the right great toe. The injury happened last night. Occurred at home. ( Pt tore the skin off her R great Toe and is unsure how it happened). Patient is experiencing mild pain.REVIEW OF SYSTEMSThe patient sustained a single laceration to the right great toe. She complains of pain on weight bearing.No swelling, tingling, w eakness, numbness or suspected foreign body.SOCIAL HISTORYNever smoker. No alcohol use or drug use.PHYSICAL EXAMVital Signs: 05/19/2020 19:19 BP: lying 138/64. MAP: 88. HR: 71. RR: 18. O2 saturation: 97% on roomair. Temp: 97.7 F. Pain level now: 0/10. Have been reviewed as normal. Oxygen saturation normal.Appearance: Alert. Oriented X3. No acute distress.Head: Head atraumatic.Eyes: Pupils equal, round and reactive to light. Eyes normal inspection.ENT: Ears normal. Nose normal. Pharynx normal.Neck: Normal inspection.CVS: Normal heart rate.Respiratory: No respiratory distress.Abdomen: No visible injury.Back: Normal inspection.Skin: Skin warm and dry.Extremities: Right great toe: mild erythema and superficial avulsion with controlled bleeding of the distalphalanx and tip of the toe. Neurovascular intact distally. (epidermal layer avulsed). No limitation inmovement. No subungual hematoma or amputation. Extremities otherwise negative.Neuro, Vascular and Tendons: Vascular status intact. Sensation intact. Motor intact. Tendon functionintact.Gait: Normal gait.Neuro: Oriented X 3.PROGRESS AND PROCEDURESCourse of Care: 20:16 May 19 2020. Evaluation after observation. (Discussed wound care and pt isagreeable with dx and tx plan.). 2 Clinical Report - Physicians/Mid Levels [facility] Emergency Department [address] [place] [address] Phone #: ext- [phone] 05/19/2020 19:17 Patient: OXANA CLANCY Sex: F : 1950 Age: 69y Patient and daughter counseled in person regarding the patient's stable condition, diagnosis and need for follow-up. Patient and daughter agrees with plan of care. 20:May 19 2020. Disposition: Discharged h ome in good and improved condition (20:May 19 2020).CLINICAL IMPRESSION Single superficial skin avulsion of the right great toe. Delayed treatment.No right toenail injury, infection present or foreign body present.INSTRUCTIONS Protect wound and keep wound area clean. Warnings: INFECTION: Watch for signs of infection (increasing heat and redness, pus-like drainage, swelling, or increased pain). Return or see your doctor if these signs occur. Your Current Medications: Your current home medications have been reviewed. CONTINUE TAKING THE FOLLOWING MEDICATIONS: Aspirin Oral : 81 mg daily. Atorvastatin Calcium Oral : 40 mg daily. Calcitriol Oral. Ferrous Gluconate Oral : Tablet 324 (37.5 Fe) mg, 1 tablet 2x a day. HumuLIN R U-500 (CONCENTRATED) Subcutaneous : 3x a day, Morning 80units Lunch 75 units Night 85 units. HydrOXYzine HCl Oral : 10 mg 3x a day, prn. Labetalol HCl Oral : Tablet 200 mg, 1 tablet 2x a day, Last: 44. Lasix Oral : Tablet 80 mg, daily. Losartan Potassium Oral : 50 mg daily. Multivitamins Oral : 1 pill daily. Omeprazole Oral : 40 mg daily. Potassium Citrate ER Oral : Tablet Extended Release 10 MEQ (1080 MG), 1 tablet 2x a day. ROPINIRole HCl Oral : Tablet 1 mg, 1 tablet 2x a day, Last: 44. Sertraline HCl Oral : 50 mg 2x a day. Spironolactone Oral : 50 mg 2x a day. TraZODone HCl Oral : 150 mg daily. Vitamin D3 Oral : Tablet 1000 unit, 1 tablet daily. Prescription Medications: Keflex 500 mg capsule Take 1 capsule three times a day as directed for 10 days -- Dispense 30 capsule. Refills: 0. Substitution permitted. 3 Clinical Report - Physicians/Mid Levels [facility] Emergency Department [address] [place] [address] Phone #: ext- [phone] 05/19/2020 19:17 Patient: OXANA CLANCY Sex: F : 1950 Age: 69y Pharmacy - [facility] [phone] ; [place] [address]. . Follow-up: Follow up with a specialist Podiatry. Reason for referral: evaluation and treatment. Summary of care provided to patient. Understanding of the discharge instructions verbalized by patient.(Electronically signed by BERTA Almonte 05/19/2020 21:43) Name Value Range Interpretation Code Description Data Tyra rce(s) Supporting Document(s) ID Date Data Source [id number] 05/02/2020 08:58:00 AM [facility] Name Value Range Interpretation Code Description Data Tyra rce(s) Supporting Document(s) Hemoglobin A1c 4.4-6.2 Above high normal [facility] Estimated Avg Glucose 192 mg/dL 126-240 Normal (applies to non-numeric results) [facility] ID Date Data Source [id number] 05/02/2020 08:58:00 AM [facility] Name Value Range Interpretation Code Description Data Tyra rce(s) Supporting Document(s) Sodium 142 mmol/L 136-145 Normal (applies to non-numeric resul ts) [facility] Potassium 3.5-5.1 Normal (applies to non-numeric resul ts) [facility] Chloride 104 mmol/L 98-107 Normal (applies to non-numeric resul ts) [facility] Carbon Dioxide CO2 21-32 Normal (applies to non-numer ic results) [facility] Anion Gap 5.0-16.0 Normal (applies to non-numeric resul ts) [facility] BUN 49 mg/dL 7-18 Above high normal [facility] ospital Creatinine,Serum 0.7-1.2 Above high normal [facility] GFR 26 mL/min >60 Below low normal [facility] spital Glucose Level 152 mg/dL 60-99 Above high normal [facility] Reference range is only applicable when patient is fasting Note the following drug interference: Sulfasalazine Sulfapyridine Can see falsely depressed Can see falsely elevated result with up to 17% results with up to 11% decrease in measurement increase in measurement Recommend patients be collected for this test prior to administration of either drug. Calcium 8.5-10.1 Normal (applies to non-numeric resul ts) [facility] ID Date Data Source [id number] 05/02/2020 08:58:00 AM EDT [facility] Name Value Range Interpretation Code Description Data Tyra rce(s) Supporting Document(s) Triglycerides 149 mg/dL <150 Normal (applies to non-numeric re sults) [facility] Cholesterol 225 mg/dL 100-200 Above high normal [facility] LDL Cholesterol Calculated 134 0-130 Above high normal [facility] HDL Cholesterol 61 mg/dL 40-60 Above high normal [facility] Cholesterol/HDL Ratio 3.6-6.7 Normal (applies to non-nu meric results) [facility] ID Date Data Source [id number] 05/02/2020 08:58:00 AM EDT [facility] Name Value Range Interpretation Code Description Data Tyra rce(s) Supporting Document(s) B-Type Natriuretic Peptide BNP <125 Above high normal [facility] Results of this test should always be us ed in conjunction with the patients medical history, clinical presentation, and other findings. ID Date Data Source [id number] 05/02/2020 08:36:00 AM EDT [facility] Name Value Range Interpretation Code Description Data Tyra rce(s) Supporting Document(s) White Blood Count 3.5-10.5 Normal (applies to non-numeri c results) [facility] Red Blood Count 3.90-5.00 Below low normal [facility] Hemoglobin 12.0-15.5 Below low normal [facility] ospital Hematocrit 34.9-44.5 Below low normal [facility] Mean Corpuscular Volume 81.2-95.1 Normal (applies to non- numeric results) [facility] Mean Corpuscular Hgb 25.6-32.2 Normal (applies to non-num [place] results) [facility] Mean Corpuscular Hgb Conc 32.0-36.0 Normal (applies to no n-numeric results) [facility] Red Cell Distribution Width 11.9-15.5 Normal (appli es to non-numeric results) [facility] Platelet Count 182 x10 3/uL 150-450 Normal (applies to non-numeric results) [facility] Mean Platelet Volume 9.4-12.4 Normal (applies to non-num [place] results) [facility] Neutrophils% (Auto) 31.0-71.0 Normal (applies to non-nume yun results) [facility] Lymphocytes% (Auto) 20.0-55.0 Normal (applies to non-nume yun results) [facility] Monocytes% (Auto) 4.0-12.0 Normal (applies to non-numeri c results) [facility] Eosinophils% (Auto) 1.0-8.0 Normal (applies to non-nume yun results) [facility] [facility] Bas[facility]% (Auto) 0.0-2.0 Normal (applies to non-numeri c results) [facility] Immature Granulocytes% (Auto) 0.0-2.0 Normal (juanita lies to non-numeric results) [facility] Neutrophils# (Auto) 1.50-6.20 Normal (applies to non-nume yun results) [facility] Lymphocytes# (Auto) 1.20-4.00 Normal (applies to non-nume yun results) [facility] Monocytes# (Auto) 0.00-0.90 Normal (applies to non-numeri c results) [facility] Eosinophils# (Auto) 0.00-0.50 Normal (applies to non-nume yun results) [facility] Basophils# (Auto) 0.00-0.20 Normal (applies to non-numeri c results) [facility] Immature Granulocytes# (Auto) 0.00-7.00 No rmal (applies to non-numeric results) [facility] Procedure Social History Code Duration Value Status Description Data Source(s ) Alcohol intake 02/09/2021 12:00:00 AM EDT Current non-d swapna of alcohol (finding) completed Current non-drinker of alcohol (finding) [facility] Alcohol intake 01/15/2021 12:00:00 AM EDT Current drinker of al cohol (finding) completed Current drinker of alcohol (finding) [facility] Tobacco use and exposure 01/15/2021 12:00:00 AM EDT Never used co mpleted Never used [facility] Smoking 01/15/2021 12:00:00 AM EDT Former smoker completed Former smoker [facility] Smoking 07/17/2020 12:00:00 AM EST Never Smoked A Pipe complet ed Never Smoked A Pipe [facility] ([facility]) Vital Signs ID Date Data Source UNK Name Value Range Interpretation Code Description Data Source(s) Systolic blood pressure 198 mm[Hg] 198 mm[Hg] M EDENT ([facility], ) Diastolic blood pressure 74 mm[Hg] 74 mm[Hg] [facility] ([facility], ) Body temperature 98.2 [degF] 98.2 [degF] [facility] ([facility], ) Body height 61 [in_i] 61 [in_i] [facility]ENT ([facility], ) 5'1" Body weight 188.12 [lb_av] 188.12 [lb_av] MEDEN T ([facility]) Body mass index (BMI) [Ratio] 35.5 kg/m2 35.5 k g/m2 [facility] ([facility]) [place] body weight 105 [lb_av] 105 [lb_av] MEDEN T ([facility]) Body weight 85.334 kg 85.334 kg [facility] ([facility]) Body surface area Derived from formula 1.84 m2 1.84 m2 [facility] ([facility]) Body height 61 [in_i] 61 [in_i] [facility] ([facility]) 5'1" Body weight 189.00 [lb_av] 189.00 [lb_av] MEDEN T ([facility]) Body mass index (BMI) [Ratio] 35.7 kg/m2 35.7 k g/m2 [facility] ([facility]) Body temperature 97.3 [degF] 97.3 [degF] [facility] ([facility]) Systolic blood pressure 132 mm[Hg] 132 mm[Hg] M EDENT ([facility]) Diastolic blood pressure 73 mm[Hg] 73 mm[Hg] [facility] ([facility]) [facility] 80 /min 80 /min [facility] Oxygen saturation in Arterial blood by Pulse oximetry 97 % 97 % [facility] ([facility]) [place] body weight 105 [lb_av] 105 [lb_av] MEDEN T ([facility]) Body weight 85.447 kg 85.447 kg [facility] ([facility]) Body height 61 [in_i] 61 [in_i] [facility] ([facility]) 5'1" Heart rate 88 /min 88 /[facility] Body weight 188.38 [lb_av] 188.38 [lb_av] MEDEN T ([facility]) Systolic blood pressure 137 mm[Hg] 137 mm[Hg] M EDENT ([facility]) Diastolic blood pressure 73 mm[Hg] 73 mm[Hg] [facility] ([facility], ) Body temperature 98.3 [degF] 98.3 [degF] [facility] ([facility]) Body mass index (BMI) [Ratio] 35.6 kg/m2 35.6 k g/m2 [facility] ([facility]) Body surface area Derived from formula 1.84 m2 1.84 m2 [facility] ([facility]) Systolic blood pressure 140 mm[Hg] 140 mm[Hg] M EDENT ([facility]) Diastolic blood pressure 71 mm[Hg] 71 mm[Hg] [facility] ([facility]) Heart rate 96 /min 96 /min [facility] ([facility]) Body height 61 [in_i] 61 [in_i] [facility] ([facility]) 5'1" Body weight 186.38 [lb_av] 186.38 [lb_av] MEDEN T ([facility]) Body mass index (BMI) [Ratio] 35.2 kg/m2 35.2 k g/m2 [facility] ([facility]) Body temperature 97.9 [degF] 97.9 [degF] [facility] ([facility]) Oxygen saturation in Arterial blood by Pulse oximetry 99 % 99 % [facility] ([facility]) Respiratory rate 18 /min 18 /min [facility] ( [facility]) Systolic blood pressure 181 mm[Hg] 181 mm[Hg] [facility] Diastolic blood pressure 72 mm[Hg] 72 mm[Hg] [facility] Heart rate 65 /min 65 /min [facility] Body temperature 36.[address] [facility] Respiratory rate 18 /min 18 /min [facility] Oxygen saturation in Arterial blood by Pulse oximetry 96 % 96 % [facility] Body weight 85.186 kg 85.186 kg [facility] Body mass index (BMI) [Ratio] 36.68 kg/m2 36.68 kg/m2 [facility] Body height 152.4 cm 152.4 cm [facility] Body temperature 97.9 [degF] 97.9 [degF] [facility] ([facility]) Body height 61 [in_i] 61 [in_i] [facility] ([facility]) 5'1" Body weight 183.25 [lb_av] 183.25 [lb_av] MEDEN T ([facility]) Body mass index (BMI) [Ratio] 34.6 kg/m2 34.6 k g/m2 [facility] ([facility]) Systolic blood pressure 120 mm[Hg] 120 mm[Hg] M EDENT ([facility]) Diastolic blood pressure 63 mm[Hg] 63 mm[Hg] [facility] ([facility]) Oxygen saturation in Arterial blood by Pulse oximetry 98 % 98 % [facility] Heart rate 90 /min 90 /min [facility] ([facility]) Body weight 198.00 [lb_av] 198.00 [lb_av] MEDEN T ([facility]) Body height 61 [in_i] 61 [in_i] [facility] ([facility]) 5'1" [place] body weight 105 [lb_av] 105 [lb_av] MEDEN T ([facility]) Body weight 89.813 kg 89.813 kg [facility] ([facility]) Body surface area Derived from formula 1.88 m2 1.88 m2 [facility] ([facility]) Body mass index (BMI) [Ratio] 37.4 kg/m2 37.4 k g/m2 [facility] ([facility]) Body height 61 [in_i] 61 [in_i] [facility] 5'1" Body weight 198.00 [lb_av] 198.00 [lb_av] MEDEN T ([facility]) Body mass index (BMI) [Ratio] 37.4 kg/m2 37.4 k g/m2 [facility] ([facility]) [place] body weight 105 [lb_av] 105 [lb_av] MEDEN T ([facility]) Body weight 89.813 kg 89.813 kg [facility] Body surface area Derived from formula 1.88 m2 1.88 m2 [facility] ([facility]) Systolic blood pressure 185 mm[Hg] 185 mm[facility]Hg] [facility] [place] body weight 105 [lb_av] 105 [lb_av] MED[facility] T ([facility]) Body weight 91.230 kg 91.230 kg [facility] ([facility]) Body surface area Derived from formula 1.89 m2 1.89 m2 [facility] ([facility]) Diastolic blood pressure 72 mm[Hg] 72 mm[Hg] [facility] ([facility]) Heart rate 71 /min 71 /min [facility] ([facility]) Body height 61 [in_i] 61 [in_i] [facility] ([facility]) 5'1" Body weight 201.12 [lb_av] 201.12 [lb_av] MEDEN T ([facility]) Body mass index (BMI) [Ratio] 38.0 kg/m2 38.0 k g/m2 [facility] ([facility]) Diastolic blood pressure 65 mm[Hg] 65 mm[Hg] [facility] ([facility]) Body height 61 [in_i] 61 [in_i] [facility] ([facility]) 5'1" [place] body weight 105 [lb_av] 105 [lb_av] MEDEN T ([facility]) Systolic blood pressure 134 mm[Hg] 134 mm[Hg] M EDENT ([facility]) Body weight 197.12 [lb_av] 197.12 [lb_av] MEDEN T ([facility]) Body mass index (BMI) [Ratio] 37.2 kg/m2 37.2 k g/m2 [facility] ([facility]) Body weight 89.416 kg 89.416 kg [facility] ([facility]) Body surface area Derived from formula 1.88 m2 1.88 m2 [facility] ([facility]) Systolic blood pressure 152 mm[Hg] 152 mm[Hg] M DANY ([facility]) Body height 61 [in_i] 61 [in_i] [facility] ([facility]) 5'1" Body weight 192.00 [lb_av] 192.00 [lb_av] [facility] T ([facility]) Body mass index (BMI) [Ratio] 36.3 kg/m2 36.3 k g/m2 [facility] ([facility]) Body temperature 98.1 [degF] 98.1 [degF] [facility] ([facility]) Diastolic blood pressure 72 mm[Hg] 72 mm[Hg] [facility] Heart rate 70 /min 70 /min [facility] Oxygen saturation in Arterial blood by Pulse oximetry 96 % 96 % [facility] Body mass index (BMI) [Ratio] 37.5 kg/m2 37.5 k g/m2 [facility] Systolic blood pressure 152 mm[Hg] 152 mm[Hg] [facility] Diastolic blood pressure 60 mm[Hg] 60 mm[Hg] [facility] ([facility]) Body height 61 [in_i] 61 [in_i] [facility] ([facility]) 5'1" Body surface area Derived from formula 1.88 m2 1.88 m2 [facility] ([facility]) Body weight 198.38 [lb_av] 198.38 [lb_av] MEDEN T ([facility]) [place] body weight 105 [lb_av] 105 [lb_av] MEDEN T ([facility]) Body weight 89.983 kg 89.983 kg [facility] ([facility]) Body mass index (BMI) [Ratio] 36.5 kg/m2 36.5 k g/m2 [facility] ([facility]) Systolic blood pressure 121 mm[Hg] 121 mm[Hg] [facility] Body height 61 [in_i] 61 [in_i] [facility] ([facility]) 5'1" Body weight 193.00 [lb_av] 193.00 [lb_av] MEDEN T ([facility]) Body temperature 97.7 [degF] 97.7 [degF] [facility] ([facility]) Diastolic blood pressure 52 mm[Hg] 52 mm[Hg] [facility] ([facility]) Heart rate 67 /min 67 /min [facility] Oxygen saturation in Arterial blood by Pulse oximetry 98 % 98 % [facility] [place] body weight 105 [lb_av] 105 [lb_av] [facility] Systolic blood pressure 92 mm[Hg] 92 mm[Hg] [facility] ([facility]) Diastolic blood pressure 44 mm[Hg] 44 mm[Hg] [facility] ([facility]) Body height 61 [in_i] 61 [in_i] [facility] ([facility]) 5'1" Body weight 197.12 [lb_av] 197.12 [lb_av] [facility] Body mass index (BMI) [Ratio] 37.2 kg/m2 37.2 k g/m2 [facility] ([facility]) Body weight 89.416 kg 89.416 kg [facility] ([facility]) Body surface area Derived from formula 1.88 m2 1.88 m2 [facility] ([facility]) Body height 61 [in_i] 61 [in_i] [facility] 5'1" Systolic blood pressure 130 mm[Hg] 130 mm[Hg] [facility] Heart rate 71 /min 71 /min [facility] ([facility]) Diastolic blood pressure 64 mm[Hg] 64 mm[Hg] [facility] ([facility]) Body weight 193.00 [lb_av] 193.00 [lb_av] MEDEN T ([facility]) Body mass index (BMI) [Ratio] 36.5 kg/m2 36.5 k g/m2 [facility] Body temperature 97.5 [degF] 97.5 [degF] [facility] Oxygen saturation in Arterial blood by Pulse oximetry 97 % 97 % [facility] Respiratory rate 18 /min 18 /min [facility] ( [facility]) Systolic blood pressure 166 mm[Hg] 166 mm[Hg] [facility] ([facility]) Diastolic blood pressure 80 mm[Hg] 80 mm[Hg] [facility] ([facility]) Body height 61 [in_i] 61 [in_i] [facility] ([facility]) 5'1" Body weight 192.00 [lb_av] 192.00 [lb_av] MEDEN T ([facility]) Body mass index (BMI) [Ratio] 36.3 kg/m2 36.3 k g/m2 [facility] ([facility]) [place] body weight 105 [lb_av] 105 [lb_av] [facility] Body weight 87.091 kg 87.091 kg [facility] ([facility]) Body surface area Derived from formula 1.86 m2 1.86 m2 [facility] ([facility]) Body height 61 [in_i] 61 [in_i] [facility] ([facility]) 5'1" Systolic blood pressure 135 mm[Hg] 135 mm[Hg] EDENT ([facility]) Diastolic blood pressure 60 mm[Hg] 60 mm[Hg] [facility] ([facility]) Body weight 210.00 [lb_av] 210.00 [lb_av] MEDEN T ([facility]) Body mass index (BMI) [Ratio] 39.7 kg/m2 39.7 k g/m2 [facility] ([facility]) [place] body weight 105 [lb_av] 105 [lb_av] MEDEN T ([facility], ) Body weight 95.256 kg 95.256 kg MEDREMY ([facility], ) ID Date Data Source [id number] 05/23/2021 10:43:00 AM EDT [facility] Name Value Range Interpretation Code Description Data Source(s) Weight (Calculated Kilograms) 90.29 90.29 [facility] Height (Calculated Centimeters) 154.94 154. 94 [facility] Body Mass Index (BMI) 37.5 37.5 [facility] ID Date Data Source [id number] 03/22/2021 12:02:00 AM EDT [facility] spital Name Value Range Interpretation Code Description Data Source(s) Weight (Calculated Kilograms) 91.63 91.63 [facility] Height (Calculated Centimeters) 154.94 154. 94 [facility] Body Mass Index (BMI) 38.1 38.1 [facility] ID Date Data Source [id number] 01/25/2021 11:18:02 AM EDT [facility] Name Value Range Interpretation Code Description Data Source(s) WEIGHT RECORDED 200.62 lb 200.62 lb [facility] WEIGHT RECORDED 206.13 lb 206.13 lb [facility] Body height Measured [address] [facility] WEIGHT RECORDED 194 lb 194 lb [facility] WEIGHT RECORDED 198 lb 198 lb [facility] Body height Measured [address] [facility] TRANSFER FROM [facility] ID Date Data Source [id number] 02/01/2021 07:12:00 AM EDT [facility] spital Name Value Range Interpretation Code Description Data Source(s) Weight (Calculated Kilograms) 91.63 91.63 [facility] Height (Calculated Centimeters) 154.94 154. 94 [facility] Body Mass Index (BMI) 38.1 38.1 [facility] ID Date Data Source [id number] 02/07/2021 08:51:00 AM EDT [facility] Name Value Range Interpretation Code Description Data Source(s) Weight (Calculated Kilograms) 90.29 90.29 [facility] Height (Calculated Centimeters) 154.94 154. 94 [facility] Body Mass Index (BMI) 37.5 37.5 [facility] ID Date Data Source [id number] 01/17/2021 07:54:00 AM EDT [facility] Hospital Name Value Range Interpretation Code Description Data Source(s) Weight (Calculated Kilograms) 90.29 90.29 [facility] Height (Calculated Centimeters) 154.94 154. 94 [facility] Body Mass Index (BMI) 37.5 37.5 [facility] ID Date Data Source [id number] 11/29/2020 08:29:00 AM EDT [facility] Name Value Range Interpretation Code Description Data Source(s) Weight (Calculated Kilograms) 90.29 90.29 [facility] Height (Calculated Centimeters) 154.94 154. 94 [facility] Body Mass Index (BMI) 37.5 37.5 [facility] ID Date Data Source [id number] 10/11/2020 09:29:00 AM EST [facility] Hospital Name Value Range Interpretation Code Description Data Source(s) Weight (Calculated Kilograms) 90.29 90.29 [facility] Height (Calculated Centimeters) 154.94 154. 94 [facility] Body Mass Index (BMI) 37.5 37.5 [facility] ID Date Data Source [id number] 06/14/2020 10:38:00 AM EDT [facility] spital Name Value Range Interpretation Code Description Data Source(s) Weight Measurement Method 8 8 [facility] Weight (Calculated Kilograms) 91.63 91.63 [facility] Weight 3200 3200 [facility] pital Temperature Source 7 7 [facility] Temperature 98.4 98.4 [facility] spital Respiratory Effort 1 1 [facility] Respiratory Rate 16 16 [facility] Pulse Assessment Method 4 4 G [facility] Pulse Rate 74 74 [facility] pital Height (Calculated Centimeters) 154.94 154. 94 [facility] Height 61 61 [facility] Blood Pressure 194/78 19478 [facility] Body Mass Index (BMI) 38.1 38.1 [facility] Weight Measurement Method 8 8 [facility] Weight (Calculated Kilograms) 91.63 91.63 [facility] Weight 3200 3200 [facility] pital Temperature Source 7 7 [facility] Temperature 98.4 98.4 [facility] spital Respiratory Effort 1 1 [facility] Respiratory Rate 16 16 [facility] Pulse Assessment Method 4 4 [facility] Pulse Rate 74 74 [facility] pital Height (Calculated Centimeters) 154.94 154. 94 [facility] Height 61 61 [facility] pital Blood Pressure 194/ 194/78 [facility] Body Mass Index (BMI) 38.1 38.1 [facility] Weight (Calculated Kilograms) 91.63 91.63 [facility] Height (Calculated Centimeters) 154.94 154. 94 [facility] Body Mass Index (BMI) 38.1 38.1 [facility] ID Date Data Source [id number] 06/14/2020 09:37:00 AM EDT [facility] Name Value Range Interpretation Code Description Data Source(s) Weight (Calculated Kilograms) 90.29 90.29 [facility] Height (Calculated Centimeters) 154.94 154. 94 [facility] Body Mass Index (BMI) 37.5 37.5 [facility] ID Date Data Source [id number] 05/03/2020 12:01:00 AM EDT [facility] spital Name Value Range Interpretation Code Description Data Source(s) Weight (Calculated Kilograms) 91.63 91.63 [facility] Height (Calculated Centimeters) 154.94 154. 94 [facility] Body Mass Index (BMI) 38.1 38.1 [facility] ID Date Data Source [id number] 08/30/2020 07:58:00 AM EST [facility] spital Name Value Range Interpretation Code Description Data Source(s) Weight Measurement Method 8 8 [facility] Weight (Calculated Kilograms) 91.63 91.63 [facility] Weight 3168 3168 [facility] pital Temperature Source 7 7 [facility] Temperature 96.9 96.9 [facility] spital Respiratory Effort 1 1 [facility] Respiratory Rate 16 16 [facility] Pulse Assessment Method 4 4 G [facility] Pulse Rate 54 54 [facility] pital Height (Calculated Centimeters) 154.94 154. 94 [facility] [address] [facility] 186/68 186/68 [facility] Body Mass Index (BMI) 38.1 38.1 [facility] Weight Measurement Method 8 8 [facility] Weight (Calculated Kilograms) 91.63 91.63 [facility] Weight 3168 3168 [facility] pital Temperature Source 7 7 [facility] Temperature 96.9 96.9 [facility] spital Respiratory Effort 1 1 [facility] Respiratory Rate 16 16 [facility] Pulse Assessment Method 4 4 G [facility] Pulse Rate 51 51 [facility] pital Height (Calculated Centimeters) 154.94 154. 94 [facility] [address] [facility] 175/65 175/65 [facility] Body Mass Index (BMI) 38.1 38.1 [facility] Weight (Calculated Kilograms) 91.63 91.63 [facility] Height (Calculated Centimeters) 154.94 154. 94 [facility] Body Mass Index (BMI) 38.1 38.1 [facility] Weight (Calculated Kilograms) 91.63 91.63 [facility] Height (Calculated Centimeters) 154.94 154. 94 [facility] Body Mass Index (BMI) 38.1 38.1 [facility] Weight (Calculated Kilograms) 91.63 91.63 [facility] Height (Calculated Centimeters) 154.94 154. 94 [facility] Body Mass Index (BMI) 38.1 38.1 [facility] Patient Treatment Plan of Care Planned Activity Planned Date Details Description Data Source (s) Amlodipine 5 MG Oral Tablet 02/12/2021 12:00:00 AM EDT [facility] Aspirin 81 MG Delayed Release Oral Tablet 02/11/2021 12:00:00 AM ED T [facility] clopidogrel 75 MG Oral Tablet 02/11/2021 12:00:00 AM EDT [facility] Nitroglycerin 0.4 MG Sublingual Tablet 02/11/2021 12:00:00 AM EDT [facility] carvedilol 12.5 MG Oral Tablet 02/11/2021 12:00:00 AM EDT [facility] Nitroglycerin 0.4 MG Sublingual Tablet 02/07/2021 03:34:10 PM EDT [facility] Acetaminophen 325 MG / Oxycodone Hydrochloride 5 MG Or al Tablet 02/07/2021 03:33:30 PM EDT [facility] 3 ML Insulin Lispro 100 UNT/ML Pen Injector 01/19/2021 12:00:00 AM [facility] 3 ML Insulin Lispro 100 UNT/ML Pen Injector 01/19/2021 12:00:00 AM [facility] Insulin Syringe-Needle U-100 31G X 15/64" 0.5 ML 01/19/2021 12:00:0 0 AM [facility] 3 ML Insulin Lispro 100 UNT/ML Pen Injector 01/19/2021 12:00:00 AM [facility] Insulin Pen Needle 31G X 5 MM 01/19/2021 12:00:00 AM [facility] 3 ML Insulin Glargine 100 UNT/ML Pen Injector 01/19/2021 12:00:00 A M [facility] Isopropyl Alcohol 0.7 ML/ML Medicated Pad 01/19/2021 12:00:00 AM [facility] FreeStyle [place] Lite w/Device Kit 01/19/2021 12:00:00 AM [facility] FreeStyle Lancets 01/19/2021 12:00:00 AM [facility] FreeStyle Lite Test In Vitro Strip (glucose blood) 01/19/2021 12 :00:00 AM [facility] Metolazone 2.5 MG Oral Tablet 01/18/2021 12:00:00 AM [facility] Insulin Glargine 100 UNT/ML Injectable Solution 01/18/2021 12:00:00 AM [facility] 24 HR Nifedipine 60 MG Extended Release Oral Tablet 01/19/20 12:00:00 AM [facility] Sodium Chloride 0.111 MEQ/ML Nasal Solution 01/18/2021 12:00:00 AM [facility] Oxymetazoline hydrochloride 0.5 MG/ML Nasal [place] 01/18/2021 12: 00:00 AM [facility] atorvastatin 40 MG Oral Tablet 01/18/2021 12:00:00 AM [facility] torsemide 100 MG Oral Tablet 01/18/2021 12:00:00 AM [facility] Cyclobenzaprine hydrochloride 10 MG Oral Tablet 01/15/2021 06:57:42 PM [facility] Hydroxyzine Hydrochloride 10 MG Oral Tablet 01/15/2021 06:57:18 PM [facility] Hydralazine Hydrochloride 20 MG/ML Injectable Solution 01/14/2021 06:43:32 PM [facility] perflutren lipid microspheres (mycirQle) injectable chun spension 9.78 mg 01/14/2021 05:50:15 PM [facility] dextrose 50 % IV solution 25 mL 01/14/2021 05:09:51 PM [facility] Glucagon 1 MG Injection 01/14/2021 05:09:51 PM [facility] Glucose 0.417 MG/MG Oral Gel 01/14/2021 05:09:51 PM [facility] carvedilol 25 MG Oral Tablet 2020 12:00:00 AM [facility] ropinirole 1 MG Oral Tablet 12/10/2020 12:00:00 AM [facility] Amlodipine 10 MG Oral Tablet 11/13/2020 12:00:00 AM [facility] ammonium lactate 120 MG/ML Topical Cream 10/27/2020 12:00:00 AM [facility] Trelegy Ellipta 100-62.5-25 MCG/INH Aerosol Powder [place] Activated 10/15/2020 12:00:00 AM [facility] torsemide 100 MG Oral Tablet 10/10/2020 12:00:00 AM [facility] cefdinir 300 MG Oral Capsule 09/13/2020 12:00:00 AM [facility] atorvastatin 40 MG Oral Tablet 04/13/2020 12:00:00 AM EDT [facility] clopidogrel 75 MG Oral Tablet 03/29/2020 12:00:00 AM EDT [facility] Aspirin 81 MG Delayed Release Oral Tablet 05/21/2019 12:00:00 AM ED T [facility] HUMULIN R U-500 KWIKPEN 500 UNIT/ML SOPN 05/07/2019 12:00:00 AM EDT [facility] Metolazone 2.5 MG Oral Tablet [facility] carvedilol 25 MG Oral Tablet [facility] Amlodipine 10 MG Oral Tablet [facility] Acetaminophen 325 MG / Oxycodone Hydrochloride 5 MG Oral Tablet [facility] Hydralazine Hydrochloride 25 MG Oral Tablet [facility] Regular Insulin, Human 500 UNT/ML Injectable Solution [facility]
[2021-06-29] MEDS ORDERED: CARV12.5 PO (16:45)
[2021-06-29 17:19] LABS: BASO % 0.4 % (0.0-1.0); EOS # 0.2 10^3/uL (0.0-0.5); EOS % 1.6 % (0.0-3.0); HEMATOCRIT 30.6 % (36.0-47.0); HEMOGLOBIN 10.2 g/dl (12.0-15.5); LYMPH # 1.9 10^3/uL (1.5-5.0); LYMPH % 20.5 % (24.0-44.0); MEAN CORPUSCULAR HEMOGLOBIN 29.3 pg (27.0-33.0); MEAN CORPUSCULAR HGB CONC 33.3 g/dl (32.0-36.5); MEAN CORPUSCULAR VOLUME 87.9 fl (80.0-96.0); MONO # 0.6 10^3/uL (0.0-0.8); NEUTROPHILS # 6.7 10^3/uL (1.5-8.5); NEUTROPHILS % 71.1 % (36.0-66.0); PLATELET COUNT, AUTOMATED 184 10^3/uL (150-450); RED BLOOD COUNT 3.48 10^6/uL (4.00-5.40); WHITE BLOOD COUNT 9.5 10^3/uL (4.0-10.0)
--- NOTE | 2021-06-29 17:20 | REP ---
INDICATION: CHEST PAIN. COMPARISON: 02/15/2021. TECHNIQUE: Single portable AP view of the chest was performed. FINDINGS: There is no acute infiltrate or pulmonary edema. Lungs are clear. The heart is mildly enlarged. The mediastinal silhouette is unremarkable. The visualized osseous structures are intact. There are multiple sternal wires mediastinal clips present IMPRESSION: No acute pulmonary disease.Mild cardiomegaly. <Electronically signed by Miller Cook > 06/29/21 1000
[2021-06-29 17:31] LABS: INR 0.99; PARTIAL THROMBOPLASTIN TIME 34.7 SECONDS (25.9-37.0); PROTHROMBIN TIME 13.5 SECONDS (12.7-14.5)
[2021-06-29] MEDS: METOPROLOL 5 MG/5 ML VIAL IV SCH ×3 (17:40→17:57)
[2021-06-29 17:51] LABS: RSV AMPLIFICATION NEGATIVE (NEGATIVE)
[2021-06-29 17:52] LABS: ALBUMIN 3.2 GM/DL (3.2-5.2); ALT/SGPT 32 U/L (12-78); BILIRUBIN,DIRECT 0.1 MG/DL (0.0-0.2); BILIRUBIN,TOTAL 0.6 MG/DL (0.2-1.0); BLOOD UREA NITROGEN 57 MG/DL (7-18); CALCIUM LEVEL 9.5 MG/DL (8.8-10.2); CARBON DIOXIDE LEVEL 31 MEQ/L (21-32); CHLORIDE LEVEL 102 MEQ/L (98-107); CREATININE FOR GFR 2.54 MG/DL (0.55-1.30); FREE T4 0.84 NG/DL (0.76-1.46); GLUCOSE, FASTING 241 MG/DL (70-100); LIPASE 103 U/L (73-393); MAGNESIUM LEVEL 2.2 MG/DL (1.8-2.4); NT-PRO BNP 3346 PG/ML (<125); POTASSIUM SERUM 3.4 MEQ/L (3.5-5.1); SODIUM LEVEL 137 MEQ/L (136-145); TOTAL PROTEIN 6.5 GM/DL (6.4-8.2)
--- OUTSIDE RECORDS SUMMARY | 2021-06-29 18:16 | CCD ---
Author Author [facility] Organization [facility] Address Unknown Phone Unavailable Care Team Providers Care Risk Intern Name Role Phone CAYLA SCHNEIDER Unavailable Unavailable HANNAH, A TREVOR PA [...] Unavailable Rishi DUNHAM MD Unavailable Unavailable Rishi DUNAHM MD Unavailable Unavailable Rishi DUNHAM MD Unavailable [...] Unavailable Unavailable AMARA BOCANEGRA MD Unavailable Unavailable AMRAA BOCANEGRA MD Unavailable Unavailable AMARA BOCANEGRA MD [...] Unavailable Unavailable Andi You Dilip PA Unavailable [phone] Andi You Dilip PA Unavailable [phone] YouAndi Dilip PA Unavailable [phone] YouAndi Dilip PA Unavailable [phone] YouAndi Dilip PA Unavailable [phone] You J Dilip PA Unavailable [phone] You J Dilip PA Unavailable [phone] You, Andi Dilip PA Unavailable [phone] YouAndi Dilip PA Unavailable [phone] YouAndi Dilip PA Unavailable [phone] YouAndi Dilip PA Unavailable [phone] YouAndi Dilip PA Unavailable [phone] YouAndi Dilip PA Unavailable [phone] Andi LIN MD Unavailable Unavailable Andi LIN [...] Cederstrand, Hedy Lamas MD Unavailable Unavailable Cederstrand, Hdey Lamas MD Unavailable Unavailable Cederstrand, Hedy Lamas [...] Unavailable Unavailable Ting BECKWITH MD Unavailable Unavailable Dayton, F Louis PA Unavailable Unavailable Dayton, F Louis PA Unavailable Unavailable Mari, F Louis PA Unavailable Unavailable Mari, F Louis PA Unavailable Unavailable Dayton, F Louis PA Unavailable Unavailable Dayton, F Louis PA Unavailable Unavailable Mari, F Louis PA Unavailable Unavailable Dayton, F Louis PA Unavailable Unavailable Dayton, F Louis PA Unavailable Unavailable Mari, F [...] is protected by Article 27-F of the [facility] Public Health law. If you continue you may have access to information: Regarding HIV / AIDS; Provided by facilities licensed or operated by the [facility] Office of Mental Health; or Provided by the [facility] Office for People With Developmental Disabilities. If such information is present, then the following [facility] mandated warning applies: This information has [...] law may result in a fine or fdc sentence or both. A general authorization for the release of medical or other information is NOT sufficient authorization for further disc losure. Allergies and Adverse Reactions Type Description Substance Reaction Status Data Source(s ) Propensity to adverse reactions PENICILLINS [facility] Propensity to adverse reactions PCN (penicillin) PCN (penicillin) [facility] Drug allergy Drug allergy birch Shortness of Breath I [facility] Drug allergy Drug allergy Penicillins Rash I [facility] Family History Family Member Name Family Member Gender Family Member Status Date o f Status Description Data Source(s) Unknown Male Problem [facility] ([facility]) Encounters Encounter Providers Location Date Indications Data Source(s ) Outpatient Attender: REAGAN Beckwith/Kendall/Redd/Umm 06/18/2021 03:00:00 PM EDT [facility] ([facility] Outpatient Attender: GEORGE MINOR MD Medical [facility] 05/10 01:30:00 PM EDT [facility] ([facility]) Outpatient Attender: Dilip HAMPTON CPSCAORT-CPSCAEND 05/04/2021 09:29:00 AM EDT - 05/04/2021 09:30:00 AM EDT [facility] Patient discharged. Outpatient Attender: REAGAN Beckwith/Kendall/Redd/Umm 04/30/2021 03:00:00 PM EDT [facility] ([facility] ) Outpatient Attender: ANDRE STREETER DO ED-[facility] 03/21 08:38:00 AM EDT - 03/21/2021 08:39:00 AM EDT [facility] E118 Patient discharged. Outpatient Attender: GEORGE MINOR MD [facility] 02/26 04:00:00 PM EDT [facility] ([facility]) Inpatient Attender: Jo Molina MDAdmitter: Jo gaffney MD [id number] 02/07/2021 03:03:00 PM EDT - 02/11/2021 04:16:00 PM EDT [facility] Patient discharged. Outpatient Attender: GEORGE MINOR MD Medical [facility] 02/05 01:45:00 PM EDT [facility] ([facility]) Outpatient Attender: ROB Beckwith/Kendall/Redd/Kayley araujo 01/23/2021 09:30:00 AM EDT [facility] ([facility] Inpatient Attender: LIDA Mitchell nder: AMARA BOCANEGRA MDAttender: DWAYNE MARTINEZ MDAttender: LUCIE MOREIRA MDAdmitter: DWAYNE MARTINEZ MDReferrer: SHARA FORD . [id number] 01/14/2021 12:00:00 AM EDT - 01/19/2021 04:34:00 PM EDT Chest pain, unspecified [facility] Chest pain, unspecified Patient discharged. Office Visit Attender: Cydney Beckwith/Kendall/Redd/ Reindl 01/11/2021 09:15:00 AM EDT [facility] ([facility]) Outpatient Attender: ANDRE REASON DO ED-[facility] 01/10 01:07:00 PM EDT - 01/10/2021 01:08:00 PM EDT [facility] HYPOTHYROIDISM Patient discharged. Outpatient Attender: Dilip HAMPTON CPSCAORT-CPSCAEND 01/03/2021 11:13:00 AM EDT - 01/03/2021 11:14:00 AM EDT [facility] Patient discharged. Outpatient Attender: Dilip CALVERTCAORT-CPSCAEND 01/01/2021 03:37:00 PM EDT - 01/01/2021 03:38:00 PM EDT [facility] Patient discharged. Office Visit Attender: Arlene Beckwith/Kendall/Redd/R eindl 12/25/2020 09:15:00 AM EDT [facility] ([facility] ) Outpatient Attender: GEORGE MINOR MD [facility] 12/04 01:15:00 PM EDT [facility] ([facility]) Outpatient Attender: Cydney Beckwith/Kendall/Redd/ Reindl 11/09/2020 10:30:00 AM EST [facility] ([facility] Outpatient Attender: Dilip CALVERTCAHUGH-CPSCAEND 11/06/2020 02:38:00 PM EST - 11/06/2020 02:39:00 PM EST [facility] Patient discharged. Outpatient Attender: ELISABETH DE LOS SANTOS DPM PCConsultant: CASSY D REASON DO 10/31/2020 10:56:00 AM EST - 10/31/2020 10:56:00 AM [facility] Outpatient Attender: GEORGE MINOR MD Medical [facility] 10/05 01:15:00 PM EST [facility] ([facility]) Office Visit Attender: PARMINDER WILL DPM [facility] 09/02 12:45:00 PM EST [facility] ([facility] Outpatient Attender: Dilip FLETCHERttender: Elisha HAMPTON CPSCAORT-CPSCAEND 09/20/2020 09:34:00 AM EST - 09/20/2020 09:35:00 AM ES T E11.65 [facility] E11.65 Patient discharged. Outpatient Attender: Arlene Asif RPA [place]/Redd/R eindl 09/05/2020 09:15:00 AM EST [facility] ([facility] Outpatient Attender: ELISABETH DE LOS SANTOS DPM PCConsultant: CASSY Maldonado REASON DO 08/22/2020 09:36:00 AM EST - 08/22/2020 09:36:00 AM [facility] Outpatient Attender: GEORGE MINOR MD [facility] 08/03 01:30:00 PM EST [facility] (George Minor MD) Office Visit Attender: PARMINDER WILL [facility] Office 10/2019 09:00:00 AM EST [facility] ([facility] Outpatient Attender: Arlene Asfi RPA [place]/Redd/R eindl 08/02/2020 09:15:00 AM EST [facility] ([facility] Outpatient Attender: ELISABETH DE LOS SANTOS DPM PCConsultant: CASSY Maldonado REASON DO 07/13/2020 02:34:00 PM EST - 07/13/2020 02:34:00 PM [facility] Outpatient 07/05/2020 06:10:00 PM [facility] Emergency Attender: IRON Randsultant: ANDRE GALVEZ DO 07/05/2020 03:34:00 PM EST - 07/05/2020 07:52:00 PM EST [facility] Patient discharged. Outpatient Attender: Cydney Beckwith/Kendall/Redd/ Umm 07/03/2020 01:15:00 PM EST [facility] ([facility] Outpatient Attender: ELISABETH DE LOS SANTOS DPM PCConsultant: CASSY D REASON DO 06/13/2020 02:03:00 PM EDT - 06/13/2020 02:03:00 PM EDT [facility] Outpatient Attender: GEORGE MINOR MD [facility] 06/02 11:15:00 AM EDT [facility] ([facility]) Emergency Attender: IRON RANDALLConsultant: ANDRE SUAREZ ON DO 05/31/2020 04:25:00 PM EDT - 05/31/2020 06:56:00 PM EDT [facility] Patient discharged. Outpatient Attender: ELISABETH DE LOS SANTOS DPM PCConsultant: CASSY D REASON DO 05/31/2020 03:06:00 PM EDT - 05/31/2020 03:06:00 PM EDT [facility] Emergency Attender: Louis HAMPTON ED-ED 11:46:00 AM EDT - 05/30/2020 12:51:00 PM EDT CUT LEFT FINGER [facility] CUT LEFT FINGER Patient discharged. Outpatient Attender: Dilip HAMPTON CPSCAORT-CPSCAEND 05/29/2020 10:08:00 AM EDT - 05/29/2020 10:09:00 AM EDT [facility] Patient discharged. Outpatient Attender: ELISABETH DE LOS SANTOS DPM PCConsultant: CASSY D REASON DO 05/22/2020 04:02:00 PM EDT - 05/22/2020 04:02:00 PM EDT [facility] Emergency Attender: MARIELLA QUEZADA MDConsultant: ANDRE ENNIS DO 05/19/2020 07:31:00 PM EDT - 05/19/2020 08:46:00 PM EDT [facility] Patient discharged. Outpatient Attender: ANDRE STREETER DO ED-[facility] 05/02 07:48:00 AM EDT - 05/02/2020 07:49:[address] [facility] E118 Patient discharged. Inpatient Attender: Tyrese Oconnor MDAtt rosalind: CAYLA Andrewender: CAYLA Perez: JIMENEZ DUNHAM MDAdmitter: JIMENEZ DUNHAM MD [id number] 03/23/2020 01:22:32 AM EDT - 03/29/2020 01:47:00 PM EDT [facility] Patient discharged. Emergency Attender: TREVOR HAMPTON ED-ED 11/23 05:01:00 PM EDT - 11/24/2019 08:48:[address] [facility] LEG CRAMPS Patient discharged. Immunizations Vaccine Date Status Description Data Source(s) COVID-19 VACCINE Moderna 01/01/2021 12:00:00 AM EDT completed [facility] Vaccine Series Complete: YESThis Data wa s Submitted to [facility] Via [employer]. COVID-19 VACC,MRNA(MODERNA)/PF 01/01/2021 12:00:00 AM EDT completed [facility] COVID-19 VACCINE Moderna 12/02/2020 12:00:00 AM EDT completed [facility] Vaccine Series Complete: NOThis Data was Submitted to [facility] Via [employer]. COVID-19 VACCINE, MRNA-1273, LNP-S (MODERNA)/PF 12/02/2020 1 [...] tablet (5 mg total) by mouth daily [facility] Furosemide 40 MG Oral Tablet furosemide (LASIX) tablet 40 mg furosemide (LASIX) tablet 40 mg 02/11/2021 09:00:00 AM EDT 40 mg Oral activ e 40 mg, Oral, Every morning, First dose on 02/11/21 at 0900 [facility] Medication administered onsite furosemide (LASIX) injection 20 mg [id number] 02/11/2021 01:00:00 AM EDT 20 mg Intravenous completed 20 mg, I ntravenous, Once, On 02/11/21 at 0100, For 1 dose [facility] Medication administered onsite Nitroglycerin 0.4 MG Sublingual Tablet n itroglycerin (NITROSTAT) 0.4 MG SL tablet nitroglycerin (NITROSTAT) 0.4 MG SL tablet 02/11/2021 12:00:00 A M EDT 0.[address] 1 t ablet (0.4 mg total) under the tongue every 5 (five) minutes as needed for chest pain [facility] carvedilol 12.5 MG Oral Tablet carvedilol (COREG) 12.5 MG tablet carvedilol (COREG) 12.5 MG tablet 02/11/2021 12:00:00 AM EDT 12.5 mg Oral active Take 1 tablet (12.5 mg total) by mouth 2 (two) times a day [facility] Aspirin 81 MG Delayed Release Oral Tablet aspirin 81 M G EC tablet aspirin 81 MG EC tablet 02/11/2021 12:00:00 AM EDT 81 mg Oral active Take 1 tablet (81 mg total) by mouth daily [facility] clopidogrel 75 MG Oral Tablet clopidogrel (PLAVIX) 75 MG tablet clopidogrel (PLAVIX) 75 MG tablet 02/11/2021 12:00:00 AM EDT 75 mg Oral active Take 1 tablet (75 mg total) by mouth nightly [facility] Hydralazine Hydrochloride 10 MG Oral Tab let hydrALAZINE (APRESOLINE) tablet 10 mg hydrALAZINE (APRESOLINE) tablet 10 mg 02/11/2021 12:00:00 AM EDT 10 mg Oral completed 10 mg, Oral, Once, O n 02/11/21 at 0000, For 1 dose [facility] Medication administered onsite Hydralazine Hydrochloride 10 MG Oral Tab let hydrALAZINE (APRESOLINE) tablet 10 mg hydrALAZINE (APRESOLINE) tablet 10 mg 02/10/2021 06:00:00 PM EDT 10 mg Oral completed 10 mg, Oral, Once, O n 02/10/21 at 1800, For 1 dose [facility] Medication administered onsite Amlodipine 5 MG Oral Tablet amLODIPine (NORVASC) table t 5 mg amLODIPine (NORVASC) tablet 5 mg 02/10/2021 02:00:00 PM EDT 5 mg Oral active 5 mg, Oral, Daily, First dose on 02/10/21 at 1400 [facility] Medication administered onsite furosemide (LASIX) injection 40 mg [id number] 02/10/2021 01:00:00 PM EDT 40 mg Intravenous completed 40 mg, I ntravenous, Once, On 02/10/21 at 1300, For 1 dose
Between blood transfusion units
[facility] Medication administered onsite potassium chloride SA (K-DUR,KLOR-CON) CR tablet 40 mEq [id number] 02/09/2021 04:00:00 PM EDT 40 meq Oral completed 40 mEq, Oral, Once, On 02/09/21 at 1600, For 1 dose [facility] Medication administered onsite Insulin Glargine 100 [...] to 200 mg/dl &nb sp; No Change
[facility] Medication administered onsite sodium chloride 0.9% (NS) infusion 5340-0197-93 02/08/2021 04:00:00 P M EDT Intravenous completed at 100 mL/hr, Intravenous, Continuous, Starting on Libra 02/08/21 at 1600, For 6 hours, Post-op [facility] Medication administered onsite clopidogrel 75 MG Oral Tablet clopidogrel (PLAVIX) tab let 75 mg clopidogrel (PLAVIX) tablet 75 mg 02/08/2021 04:00:00 PM EDT 75 mg Oral active 75 mg, Oral, Daily, First dose on Fri02/08/21 at 1600, Post-op
May begin the same day
[facility] Medication administered onsite clopidogrel 75 MG Oral Tablet clopidogrel (PLAVIX) tab let clopidogrel (PLAVIX) tablet 02/08/2021 02:30:24 PM EDT active As needed, Starting on Libra 02/08/21 at 1430, Intra-Procedure [facility] Medication administered onsite 1 ML heparin sodium, porcine 1000 UNT/ML Injection hep fabian (porcine) injection heparin (porcine) injection 02/08/2021 02:02:58 PM EDT active As needed, Starting on Libra 02/08/21 at 1402, Intra-Procedure [facility] Medication administered onsite lidocaine 1 % injection [id number] 02/08/2021 01:53:49 PM EDT active As needed, Starting on Libra at 1353, Intra-Procedure [facility] Medication administered onsite fentaNYL Citrate (PF) (SUBLIMAZE) injection 6138-1537-61 02/08/2021 01:50:42 PM EDT active As neede d, Starting on Libra 02/08/21 at 1350, Intra-Procedure [facility] Medication administered onsite 2 ML Midazolam 1 MG/ML Injection midazolam (VERSED) in jection midazolam (VERSED) injection 02/08/2021 01:50:35 PM EDT active As needed, Starting on Libra 02/08/21 at 1350, Intra-Procedure [facility] Medication administered onsite potassium chloride SA (K-DUR,KLOR-CON) CR tablet 20 mEq [id number] 02/08/2021 08:00:00 AM EDT 20 meq Oral completed 20 mEq, Oral, Once, On Libra 02/08/21 at 0800, For 1 dose [facility] Medication administered onsite Hydralazine Hydrochloride 10 MG Oral Tab let hydrALAZINE (APRESOLINE) tablet 10 mg hydrALAZINE (APRESOLINE) tablet 10 mg 02/08/2021 12:00:00 AM EDT 10 mg Oral aborted 10 mg, Oral, E very 8 hours (scheduled), First dose on Libra 02/08/21 at 0000
Hold for SBP<140
[facility] Medication administered onsite atorvastatin 80 MG Oral Tablet atorvastatin (LIPITOR) tablet 80 mg atorvastatin (LIPITOR) tablet 80 mg 02/07/2021 09:00:00 PM EDT 80 mg Oral active 80 mg, Oral, Nightly, First dose on Fri02/07/21 at 2099 [facility] Medication administered onsite carvedilol 12.5 MG Oral Tablet carvedilol (COREG) tabl et 12.5 mg carvedilol (COREG) tablet 12.5 mg 02/07/2021 09:00:00 PM EDT 12.5 mg Oral active 12.5 mg, Oral, 2 times daily, First dose on Fri02/07/21 at 2099 [facility] Medication administered onsite Sertraline 100 MG Oral Tablet sertraline (ZOLOFT) tabl et 100 mg sertraline (ZOLOFT) tablet 100 mg 02/07/2021 09:00:00 PM EDT 100 mg Oral active 100 mg, Oral, Nightly, First dose on Fri02/07/21 at 2099 [facility] Medication administered onsite ropinirole 1 MG Oral Tablet rOPINIRole (REQUIP) tablet 1 mg rOPINIRole (REQUIP) tablet 1 mg 02/07/2021 09:00:00 PM EDT 1 mg Oral active 1 mg, Oral, 2 times daily, First dose on Fri02/07/21 at 2099 [facility] Medication administered onsite clopidogrel 75 MG Oral Tablet clopidogrel (PLAVIX) tab let 75 mg clopidogrel (PLAVIX) tablet 75 mg 02/07/2021 09:00:00 PM EDT 75 mg Oral aborted 75 mg, Oral, Nightly, First dose on Fri02/07/21 at 2099 [facility] Medication administered onsite potassium chloride SA (K-DUR,KLOR-CON) CR tablet 20 mEq [id number] 02/07/2021 08:00:00 PM EDT 20 meq Oral completed 20 mEq, Oral, Once, On Fri02/07/21 at 2000, For 1 dose [facility] Medication administered onsite 1 ML heparin sodium, porcine 1000 UNT/ML Injection heparin (porcine) injection 4,900 Units heparin (porcine) injection 4,900 Units 02/07/2021 05:00:00 PM EDT 60 U/kg Intravenous completed 4,900 Unit s (rounded from 4,872 Units = 60 Units/kg 81.2 kg), Intravenous, Once, On Fri02/07/21 at 1700, For 1 dose
Do not exceed 5,000 units or 60 units/kg (whichever is less)
[facility] Medication administered onsite sodium chloride 0.9% (NS) infusion [id number] 02/07/2021 05:00:00 P M EDT Intravenous aborted at 75 mL/hr, Intravenous, Continuous, Starting on Fri02/07/21 at 1700 [facility] Medication administered onsite Insulin Lispro 100 [...] cover POC glucose at 08:00, 12:00, 17:00.
[facility] Medication administered onsite Nitroglycerin 0.02 MG/MG Topical Ointmen t nitroglycerin (NITROSTAT) 2 % ointment 1 inch nitroglycerin (NITROSTAT) 2 % ointment 1 inch 02/08/20 04:00:00 PM EDT 1 g Topical aborted 1 inch ( 1 g), Topical, Every 6 hours (scheduled), First dose on Fri02/07/21 at 1600
1 inch = 1 gram
[facility] Medication administered onsite pantoprazole 40 MG Delayed Release Oral Tablet pantoprazole (PROTONIX) EC tablet 40 mg pantoprazole (PROTONIX) EC tablet 40 mg 02/07/2021 04:00:00 PM E DT 40 mg Oral active Gastroesophageal Reflux Diseas e 40 mg, Oral, Daily, Indications: Gastroesophageal Reflux Disease, First dose on Fri02/07/21 at 1600 [facility] Gastroesophageal Reflux Disease Medication administered onsite Aspirin 81 MG Delayed Release Oral Tablet aspirin EC t ablet 81 mg aspirin EC tablet 81 mg 02/07/2021 04:00:00 PM EDT 81 mg Oral activ e 81 mg, Oral, Daily, First dose on Fri02/07/21 at 1600 [facility] Medication administered onsite 500 ML heparin [...] 1 unit/kg/hr IV58.1 - 87 Therapeutic, No Bavubf02.1 - 97 Decrease infusion 1 unit/kg/hr IV [...] single port tubing (SmartSite Infusion Set ref [id number]). Medication and tubing is to be discarded if infusion off for 4 hours.
[facility] Medication administered onsite tramadol hydrochloride 50 MG Oral Tablet traMADol (ULT NOHEMI) tablet 50 mg traMADol (ULTRAM) tablet 50 mg 02/07/2021 03:35:12 PM EDT 50 mg Oral active 50 mg, Oral, 2 times daily PRN, mild pain (1-3), Starting on Fri02/07/21 at 1535, For 7 days [facility] Medication administered onsite Nitroglycerin 0.4 MG Sublingual Tablet n itroglycerin (NITROSTAT) SL tablet 0.4 mg nitroglycerin (NITROSTAT) SL tablet 0.4 mg 02/07/2021 03:34:10 P M EDT 0.4 mg Sublingual active 0.4 mg, S ublingual, Every 5 min PRN, chest pain, Starting on Fri02/07/21 at 1534
May administer up to 3 doses per episode.
[facility] Medication administered onsite Acetaminophen 325 MG / Oxycodone Hydroch loride 5 MG Oral Tablet oxyCODONE- acetaminophen (PERCOCET) 5-325 MG 1 tablet oxyCODONE-acetaminophen (PERCOCET) 5- 325 MG 1 tablet 02/07/2021 03:33:30 PM EDT 1 {tbl} Oral a ctive 1 tablet, Oral, Every 8 hours PRN, moderate pain (4-6), Starting on Fri02/07/21 at 1533, For 7 days [facility] Medication administered onsite Acetaminophen 325 MG Oral Tablet acetaminophen (TYLENO L) 325 MG tablet 650 mg acetaminophen (TYLENOL) 325 MG tablet 650 mg 02/07/2021 03:32:06 PM EDT 650 mg Oral active 650 mg, Or al, Every 6 hours PRN, mild pain (1-3), Starting on Fri02/07/21 at 1532 [facility] Medication administered onsite potassium chloride (K-DUR) dissolvable tablet 40 mEq [id number] 01/19/2021 08:00:00 AM EDT 40 meq Oral completed 40 mEq, Oral, Once, On Fri01/19/21 at 0800, For 1 dose
May be dissolved in water for patients with a G- Tube or unable to swallow. If concern for clogging G-Tube, may contact Pharmacy to switch formulation to a powder packet.
[facility] Medication administered onsite Isopropyl Alcohol 0.7 ML/ML Medicated Pad Alcohol Swabs Pad Alcohol Swabs Pad 01/19/2021 12:00:00 AM EDT active Use as directed. use 8-10 per day, E11.65, #200, 1 refill [facility] [employer] [place] Lite w/Device Kit [id number] 01/19/2021 12:00:00 A M EDT active Use as directed. Rashawn t 4-6 times daily. Dx code 11.65. [facility] [employer] Lancets [id number] 01/19/2021 12:00:00 AM EDT active Use as directed. Use 4-6 times daily. Dx code 11.65. [facility] [employer] Lite Test In Vitro Strip (glucose blood) [id number] 01/19/2021 12:00:00 AM EDT active Test 4-6 times daily. Dx code 11.65. [facility] 3 ML Insulin Lispro 100 UNT/ML Pen Injec tor Insulin Lispro (1 Unit Dial) 100 UNIT/ML Subcutaneous Solution Pen-injector (HumaLOG KwikPen) Insulin Lispro (1 Unit Dial) 100 UNIT/ML Subcutaneous Solution Pen-injector (HumaLOG KwikPen) 01/19/2021 12:00:00 AM EDT active #25 pens, inject 3 times daily before meal per the insulin algorithm, MDD: 120units, 1 [facility] 3 ML Insulin Lispro 100 UNT/ML Pen Injec tor Insulin Lispro (1 Unit Dial) 100 UNIT/ML Subcutaneous Solution Pen-injector (HumaLOG KwikPen) Insulin Lispro (1 Unit Dial) 100 UNIT/ML Subcutaneous Solution Pen-injector (HumaLOG KwikPen) 01/19/2021 12:00:00 AM EDT aborted #25 pens, inject 3 times daily before meal per the insulin algorithm, MDD: 120units, 1 [facility] Insulin Syringe-Needle U-100 31G X 15/64" 0.5 ML [id number] 01/19/2021 12:00:00 AM EDT active #600. Use 4-6 carol ly, E11.65, 1 [facility] 3 ML Insulin Lispro 100 UNT/ML Pen Injec tor Insulin Lispro (1 Unit Dial) 100 UNIT/ML Subcutaneous Solution Pen-injector (HumaLOG KwikPen) Insulin Lispro (1 Unit Dial) 100 UNIT/ML Subcutaneous Solution Pen-injector (HumaLOG KwikPen) 01/19/2021 12:00:00 AM EDT aborted # 5 pens, inject 3 times daily before meal per the insulin algorithm, MDD: 120units, 1 [facility] Insulin Pen Needle 31G X 5 MM [id number] 01/19/2021 12:00:00 AM EDT active Use as directed. Use 4-6 needles per day . [facility] 3 ML Insulin Glargine 100 UNT/ML Pen Inj art Insulin Glargine 100 UNIT/ML Subcutaneous Solution Pen-injector (LANTUS SOLOSTAR) Insulin Glargine 100 UNIT/ML Subcutaneous Solution Pen-injector (LANTUS SOLOSTAR) 01/19/2021 12:00:00 AM EDT active Inject 4 4 Units subcutaneously every night, MDD 100 [facility] Insulin Glargine 100 UNT/ML Injectable S olution insulin glargine (LANTUS) injection 44 Units insulin glargine (LANTUS) injection 44 Units 10:00:00 PM EDT 44 U Subcutaneous active 44 Units, Subcutaneous, Nightly, First dose (after last modification) on [facility] 01/18/21 at 2200, For 26 doses
[...] glucose more than 400 mg/dL: notify provider
[facility] Medication administered onsite insulin lispro (HUMALOG) injection CUSTO MIZABLE DOSE INSULIN patients 1-25 Units [id number] 01/18/2021 06:00:00 PM EDT U Subcutaneous active 1-25 Units, Subcutaneous, Three Times Daily-With Meals, First dose (after last modification) on [facility] [facility] at 1800, For 87 doses
[...] gm if only clear liquid consumed): 29 [facility] Medication administered onsite bacitracin ointment [id number] 01/18/2021 12:00:00 PM EDT Topical active Topical, 2 Times Carol ly, First dose on [place] 01/18/21 at 1200, For 3 days
Apply to nares
[facility] Medication administered onsite Chlorothiazide 28 MG/ML Injectable Solut ion chlorothiazide (DIURIL) injection 500 mg chlorothiazide (DIURIL) injection 500 mg 01/18/2021 11:45:00 AM EDT 500 mg Intravenous active 500 mg, Intravenous, 2 Times Daily, First dose (after last modification) on [facility] 01/18/21 at 1145, For 8 doses
Add 18 ml of sterile water for inj to vial = 28mg/ml
[facility] Medication administered onsite NIFEdipine (PROCARDIA XL) 24 hr tablet 60 mg [id number] 01/18/2021 10:45:00 AM EDT 60 mg Oral active 60 mg, O ral, Daily Standard, First dose on [facility] 01/18/21 at 1045, For 30 days
Do not crush or chew
[facility] Medication administered onsite Amlodipine 5 MG Oral Tablet amlodipine (NORVASC) table t 5 mg amlodipine (NORVASC) tablet 5 mg 01/18/2021 09:15:00 AM EDT 5 mg Oral completed 5 mg, Oral, Daily Standard, First dose on [facility] 01/18/21 at 0915, For 1 day
Check vital signs before administering
[facility] Medication administered onsite Sodium Chloride 0.111 MEQ/ML Nasal Solut ion sodium chloride (OCEAN) 0.65 % nasal spray 2 spray sodium chloride (OCEAN) 0.65 % nasal spray 2 spray 09:00:00 AM EDT 2 {spray} Each Nare active 2 spray, Each Nare, Three Times Daily Standard, First dose on [facility] 01/18/21 at 0900, For 30 days [facility] Medication administered onsite Sertraline 100 MG Oral Tablet sertraline (ZOLOFT) tabl et 100 mg sertraline (ZOLOFT) tablet 100 mg 01/18/2021 09:00:00 AM EDT 100 mg Oral active 100 mg, Oral, Daily Standard, First dose (after last modification) on [facility] 01/18/21 at 0900, For 26 doses [facility] Medication administered onsite pantoprazole 40 MG Delayed Release Oral Tablet pantoprazole (PROTONIX) EC tablet 40 mg pantoprazole (PROTONIX) EC tablet 40 mg 01/18/2021 07:30:00 AM E DT 40 mg Oral active 40 mg, Ora l, Before Breakfast, First dose (after last modification) on [facility] 01/18/21 at 0730, For 26 doses
Do not crush or chew
[facility] Medication administered onsite Metolazone 2.5 MG Oral Tablet metOLazone 2.5 MG Oral T ablet (ZAROXOLYN) metOLazone 2.5 MG Oral Tablet (ZAROXOLYN) 01/18/2021 12:00:00 AM EDT 2.5 mg Oral active Take 1 tablet by mariam th daily [facility] Insulin Glargine 100 UNT/ML Injectable S olution Insulin Glargine 100 UNIT/ML Subcutaneous Solution (LANTUS) Insulin Glargine 100 UNIT/ML Subcutaneou s Solution (LANTUS) 01/18/2021 12:00:00 AM EDT 30 U Subcutaneous aborted Inject 30 Units into the skin nightly [facility] 24 HR Nifedipine 60 MG Extended Release Oral Tablet NIFEdipine ER 60 MG Oral Tablet Extended Release 24 Hour (ADALAT CC) NIFEdipine ER 60 MG Oral Tablet Extended Release 24 Hour (ADALAT CC) 01/18/2021 12:00:00 AM EDT 60 mg Oral active Take 1 tablet by mouth daily [facility] torsemide 100 MG Oral Tablet Torsemide 100 MG Oral Tab let (DEMADEX) Torsemide 100 MG Oral Tablet (DEMADEX) 01/18/2021 12:00:00 AM EDT 100 mg Oral active Take 1 tablet by mariam th Two Times Daily Take 1 tablet in the morning and 1 tablet in the evening [facility] atorvastatin 40 MG Oral Tablet Atorvastatin Calcium 40 MG Oral Tablet (LIPITOR) Atorvastatin Calcium 40 MG Oral Tablet (LIPITOR) 01/18/2021 12:00:00 AM EDT 40 mg Oral active Take 1 tablet by mouth d [facility] Oxymetazoline hydrochloride 0.5 MG/ML Na kem [place] Oxymetazoline HCl 0.05 % Nasal Solution (AFRIN) Oxymetazoline HCl 0.05 % Nasal Solution (AFRIN) 2020 12:00:00 AM EDT 2 {spray} Nasal active 2 sprays by Nasal route Two Times Daily for 3 days [facility] Sodium Chloride 0.111 MEQ/ML Nasal Solut ion Saline Nasal [place] 0.65 % Nasal Solution (OCEAN) Saline Nasal [place] 0.65 % Nasal Solution (OCEAN) 01/18 12:00:00 AM EDT 2 {spray} Nasal active 2 sprays by Nasal route Three times daily [facility] Insulin Glargine 100 UNT/ML Injectable S olution [...] glucose more than 400 mg/dL: notify provider
[facility] Medication administered onsite POLYETHYLENE GLYCOL [id number] [...] due to potential increased risk for aspiration.
[facility] Medication administered onsite ropinirole 1 MG Oral Tablet ropinirole (REQUIP) tablet 2 mg ropinirole (REQUIP) tablet 2 mg 01/17/2021 09:00:00 PM EDT 2 mg Oral active 2 mg, Oral, 2 Times Daily, First dose (after last modification) on Fri01/17/21 at 2100, For 54 doses [facility] Medication administered onsite 60 ACTUAT Budesonide 0.08 MG/ACTUAT / fo rmoterol fumarate 0.0045 MG/ACTUAT Metered Dose Inhaler budesonide-formoterol (SYMBICORT) 80-4.5 MCG/ACT inhaler 2 puff budesonide-formoterol (SYMBICORT) 80-4.5 MCG/ACT inhal er 2 puff 01/17/2021 08:00:00 PM EDT 2 {puff} Inhalation active 2 puff, Inhalation, 2 Times Daily, First dose on Fri01/17/21 at 2000, For 11 days
Shake well before using
[facility] Medication administered onsite insulin lispro (HUMALOG) injection CUSTO MIZABLE DOSE INSULIN patients 1-25 Units [id number] 01/17/2021 06:00:00 PM EDT U Subcutaneous aborted [...] gm if only clear liquid consumed): 25 [facility] Medication administered onsite Sodium Bicarbonate 650 MG Oral Tablet sodium bicarbona te tablet 650 mg sodium bicarbonate tablet 650 mg 01/17/2021 02:45:00 PM EDT 650 mg Oral active 650 mg, Oral, 2 Times Daily, First dose on Fri01/17/21 at 1445, For 30 days [facility] Medication administered onsite bumetanide (BUMEX) injection 4 mg [id number] 01/16/2021 05:15:00 PM EDT 4 mg Intravenous active 4 mg, In travenous, Every 12 hours, First dose on Fri01/16/21 at 1730, For 10 doses [facility] Medication administered onsite Calcitriol 0.23025 MG Oral Capsule calcitRIOL (ROCALTR OL) capsule 0.25 mcg calcitRIOL (ROCALTROL) capsule 0.25 mcg 01/16/2021 09:00:00 AM EDT 0.25 ug Oral active 0.25 mcg, Oral , Daily Standard, First dose on Fri01/16/21 at 0900, For 30 days [facility] Medication administered onsite Amlodipine 5 MG Oral Tablet amlodipine (NORVASC) table t 5 mg amlodipine (NORVASC) tablet 5 mg 01/16/2021 09:00:00 AM EDT 5 mg Oral aborted 5 mg, Oral, Daily Standard, First dose (after last modification) on Fri01/16/21 at 0900, For 7 doses [facility] Medication administered onsite Aspirin 81 MG Chewable Tablet aspirin chewable tablet 324 mg aspirin chewable tablet 324 mg 01/16/2021 07:00:00 AM EDT 324 mg Oral comp leted 324 mg, Oral, Once, On Fri01/16/21 at 0700, For 1 dose
Chew tablet before swallowing.
[facility] Medication administered onsite Oxymetazoline hydrochloride 0.5 MG/ML Na [place] oxymetazoline (AFRIN) 0.05 % nasal spray 2 spray oxymetazoline (AFRIN) 0.05 % nasal spray 2 spray 01/15 09:00:00 PM EDT 2 {spray} Each Nare active 2 spray, Each Nare, 2 Times Daily, First dose on Fri01/15/21 at 2100, For 14 doses [facility] Medication administered onsite ferrous gluconate 324 MG Oral Tablet Ferrous Gluconate (FERGON) tablet 324 mg Ferrous Gluconate (FERGON) tablet 324 mg 01/15/2021 09:00:00 PM EDT 324 mg Oral active 324 mg, Oral, 2 Times Daily, First dose on Fri01/15/21 at 2100, For 30 days [facility] Medication administered onsite tramadol hydrochloride 50 MG Oral Tablet tramadol (ULT NOHEMI) tablet 50 mg tramadol (ULTRAM) tablet 50 mg 01/15/2021 07:08:36 PM EDT 50 mg Oral active 50 mg, Oral, Every 12 hours PRN, Moderate Pain (Pain Scale Score 4-6), Starting on Fri01/15/21 at 1908, For 4 days 22 hours [facility] Medication administered onsite Cyclobenzaprine hydrochloride 10 MG Oral Tablet cyclobenzaprine (FLEXERIL) tablet 10 mg cyclobenzaprine (FLEXERIL) tablet 10 mg 01/15/2021 06:57:42 PM EDT 10 mg Oral active 10 mg, Oral, Thr ee Times Daily-PRN, Muscle spasms, Starting on Fri01/15/21 at 1857, For 30 days [facility] Medication administered onsite Hydroxyzine Hydrochloride 10 MG Oral Tablet hydrOXYzin e (ATARAX) tablet 10 mg hydrOXYzine (ATARAX) tablet 10 mg 01/15/2021 06:57:18 PM EDT 10 mg Oral active 10 mg, Oral, Three Times Daily-PRN, Anxiety, Starting on Fri01/15/21 at 1857, For 30 days [facility] Medication administered onsite furosemide (LASIX) injection 80 mg [id number] 01/15/2021 03:15:00 PM EDT 80 mg Intravenous completed 80 mg, I ntravenous, Once, On Fri01/15/21 at 1515, For 1 dose
Notify provider if systolic blood pressure less than: 90 [facility] Medication administered onsite Amlodipine 5 MG Oral Tablet amlodipine (NORVASC) table t 10 mg amlodipine (NORVASC) tablet 10 mg 01/15/2021 09:00:00 AM EDT 10 mg Oral aborted 10 mg, Oral, Daily Standard, First dose on Fri01/15/21 at 0900, For 5 doses [facility] Medication administered onsite clopidogrel 75 MG Oral Tablet clopidogrel (PLAVIX) tab let 75 mg clopidogrel (PLAVIX) tablet 75 mg 01/15/2021 09:00:00 AM EDT 75 mg Oral active 75 mg, Oral, Daily Standard, First dose on Fri01/15/21 at 0900, For 30 days [facility] Medication administered onsite torsemide 20 MG Oral Tablet torsemide (DEMADEX) tablet 100 mg torsemide (DEMADEX) tablet 100 mg 01/15/2021 09:00:00 AM EDT 100 mg Oral aborted 100 mg, Oral, Daily Standard, First dose on Fri at 0900, For 30 days [facility] Medication administered onsite tiotropium (SPIRIVA RESPIMAT) inhalation spray 2 puff [id number] 01/15/2021 08:00:00 AM EDT 2 {puff} Inhalation active 2 pu ff, Inhalation, Daily RT, First dose on Fri01/15/21 at 0800, For 30 days [facility] Medication administered onsite Oxycodone Hydrochloride 5 MG [...] only) require Pain Service consultation and approval.
[facility] Medication administered onsite Insulin Glargine 100 UNT/ML [...] glucose more than 400 mg/dL: notify provider
[facility] Medication administered onsite ropinirole 1 MG Oral Tablet ropinirole (REQUIP) tablet 1 mg ropinirole (REQUIP) tablet 1 mg 01/14/2021 09:00:00 PM EDT 1 mg Oral aborte d 1 mg, Oral, 2 Times Daily, First dose on 01/14/21 at 2100, For 30 days [facility] Medication administered onsite Isosorbide Dinitrate 20 MG Oral Tablet i sosorbide dinitrate (ISORDIL) tablet 20 mg isosorbide dinitrate (ISORDIL) tablet 20 mg 01/14/2021 09:00:00 PM EDT 20 mg Oral active 20 mg, Ora l, Three Times Daily Standard, First dose on 01/14/21 at 2100, For 30 days
Hazardous pharmaceutical waste - Black bin disposal.
[facility] Medication administered onsite atorvastatin 40 MG Oral Tablet atorvastatin (LIPITOR) tablet 40 mg atorvastatin (LIPITOR) tablet 40 mg 01/14/2021 09:00:00 PM EDT 40 mg Oral active 40 mg, Oral, Every evening, First dose on 01/14/21 at 2100, For 30 days [facility] Medication administered onsite Sertraline 100 MG Oral Tablet sertraline (ZOLOFT) tabl et 50 mg sertraline (ZOLOFT) tablet 50 mg 01/14/2021 09:00:00 PM EDT 50 mg Oral aborted 50 mg, Oral, 2 Times Daily, First dose on 01/14/21 at 2100, For 30 days [facility] Medication administered onsite 60 ACTUAT Budesonide 0.16 MG/ACTUAT / fo rmoterol fumarate 0.0045 MG/ACTUAT Metered Dose Inhaler budesonide-formoterol (SYMBICORT) 160-4.5 MCG/ACT inhaler 2 puff budesonide-formoterol (SYMBICORT) 160-4.5 MCG/ACT inha ler 2 puff 01/14/2021 08:00:00 PM EDT 2 {puff} Inhalation aborted 2 puff, Inhalation, 2 Times Daily, First dose on 01/14/21 at 2000, For 14 days
Shake well before using
[facility] Medication administered onsite Hydralazine Hydrochloride 20 MG/ML Injec table Solution hydrALAZINE (APRESOLINE) injection 20 mg hydrALAZINE (APRESOLINE) injection 20 mg 01/14/2021 06 :45:00 PM EDT 20 mg Intravenous completed 20 mg, Intravenous, Once, On 01/14/21 at 1845, For 1 dose
Dilute in 25-50 mL normal saline. Administer over 30 minutes.
[facility] Medication administered onsite Hydralazine Hydrochloride 20 MG/ML Injec table Solution hydrALAZINE (APRESOLINE) injection 10 mg hydrALAZINE (APRESOLINE) injection 10 mg 01/14/2021 06 :43:32 PM EDT 10 mg Intravenous active 10 m g, Intravenous, Every 6 hours PRN, Hypertension, SBP >175 and DBP >110, Starting on Fri01/14/21 at 1843, For 5 days 22 hours
Dilute in 25-50 mL normal saline. Administer over 30 minutes.
[facility] Medication administered onsite Acetaminophen 325 MG Oral [...] mg from all sources in 24 hours.
[facility] Medication administered onsite carvedilol 6.25 MG Oral Tablet carvedilol (COREG) tabl et 25 mg carvedilol (COREG) tablet 25 mg 01/14/2021 06:00:00 PM EDT 25 mg Oral active 25 mg, Oral, 2 Times Daily With Meals, First dose on 01/14/21 at 1800, For 30 days
Check vital signs before administering
[facility] Medication administered onsite rivaroxaban 15 MG Oral Tablet rivaroxaban (XARELTO) ta blet 15 mg rivaroxaban (XARELTO) tablet 15 mg 01/14/2021 06:00:00 PM EDT 15 mg Oral active Atrial Fibrillation 15 mg, Oral, Daily with Dinn er, Indications: Atrial Fibrillation, First dose on Fri01/14/21 at 1800, For 30 days [facility] Atrial Fibrillation Medication administered onsite insulin lispro (HumaLOG) injection HIGH DOSE EATING IN SULIN patients 1-22 Units [id number] 01/14/2021 06:00:00 PM EDT U Subcutaneous aborted 1-22 Units, Subcutaneous, Three Times Daily-With Meals, First dose on 01/14/21 at 1800, For 30 days
Nursing MUST open the 'SQ Insulin Dosing Charts' Sidebar Report, or, the Patient Summary or Summary Report within the ED.
[facility] Medication administered onsite perflutren lipid microspheres (DEFINITY) injectable suspensi on 9.78 mg [id number] 01/14/2021 05:50:15 PM EDT 1.5 mL Intravenous active 9.78 mg (1.5 mL), Intravenous, Once PRN, Other, Echo imaging enhancement, Starting on 01/14/21 at 1750, For 5 days 23 hours [facility] Medication administered onsite Ceftriaxone 1000 MG Injection cefTRIAXone (ROCEPHIN) i nfusion 1 g (premix) cefTRIAXone (ROCEPHIN) infusion 1 g (premix) 01/14/2021 05:45:00 PM EDT 1 g Intravenous aborted 1 g, Intraven ous, at 100 mL/hr, Every 24 hours, First dose on [place] 01/14/21 at 1745, For 7 days
Discouraged Uses: Empiric treatment of post-surgical meningitis (ceftazidime preferred)
[facility] Medication administered onsite furosemide (LASIX) injection 80 mg [id number] 01/14/2021 05:45:00 PM EDT 80 mg Intravenous completed 80 mg, I ntravenous, Once, On 01/14/21 at 1745, For 1 dose
Notify provider if systolic blood pressure less than: 90 [facility] Medication administered onsite azithromycin in NaCl 0.9 % 250 mL infusion 500 mg 01/14/2021 05:45:00 PM EDT 500 mg Intravenous aborted 500 mg, Intr avenous, at 250 mL/hr, Every 24 hours, First dose on 01/14/21 at 1745, For 5 days [facility] Medication administered onsite pantoprazole 40 MG Delayed Release Oral Tablet pantoprazole (PROTONIX) EC tablet 40 mg pantoprazole (PROTONIX) EC tablet 40 mg 01/14/2021 05:30:00 PM E DT 40 mg Oral aborted 40 mg, Ora l, Two times daily before breakfast and dinner, First dose on 01/14/21 at 1730, For 30 days
Do not crush or chew
[facility] Medication administered onsite albuterol (PROVENTIL HFA) inhaler 2 puff [id number] 01/14/2021 05:14:29 PM EDT 2 {puff} Inhalation active 2 pu ff, Inhalation, Every 6 hours PRN, Wheezing, Starting on 01/14/21 at 1714, For 6 days 23 hours
Shake the inhaler well before each spray.
[facility] Medication administered onsite Glucagon 1 MG Injection glucagon (human recombinant) ( GLUCAGEN) injection 1 mg glucagon (human recombinant) (GLUCAGEN) injection 1 mg 01/14/2021 05:09:51 PM EDT 1 mg Intramuscular active 1 mg, Intramuscular, PRN, for glucose <55 without IV access, Starting on 01/14/21 at 1709, For 30 days [facility] Medication administered onsite dextrose 50 % IV solution 25 mL [id number] 01/14/2021 05:09:51 PM E DT 25 mL Intravenous active 25 mL, Intrav enous, PRN, Other, blood glucose <55, Starting on 01/14/21 at 1709, For 30 days
Not for midline administration.
[facility] Medication administered onsite Glucose 0.417 MG/MG Oral Gel glucose (GLUTOSE) 40 % or al gel 15 g glucose (GLUTOSE) 40 % oral gel 15 g 01/14/2021 05:09:51 PM EDT 15 g Oral active 15 g, Oral, PRN, Low blood s ugar, for gluose 55-69 mg/dl and able to take PO, Starting on 01/14/21 at 1709, For 30 days [facility] Medication administered onsite carvedilol 25 MG Oral Tablet Carvedilol 25 MG Oral Tab let (COREG) Carvedilol 25 MG Oral Tablet (COREG) 2020 12:00:00 AM EDT 25 mg Oral active Take 25 mg by mouth Two times daily with meals [facility] ropinirole 1 MG Oral Tablet rOPINIRole HCl 1 MG Oral T ablet (REQUIP) rOPINIRole HCl 1 MG Oral Tablet (REQUIP) 12/10/2020 12:00:00 AM EDT 2 mg Oral active Take 2 mg by mouth Two Times Daily [facility] Calcitriol 0.71638 MG Oral Capsule Calcitriol 12/04/2020 12:00:00 AM [...] Oral aborted Take 10 mg by mouth [facility] ammonium lactate 120 MG/ML Topical Cream Ammonium Lactate 12 % External Cream (AMLACTIN) Ammonium Lactate 12 % External Cream (AMLACTIN) 2020 12:00:00 AM EST aborted APPLY TO FEET DA [facility] ammonium lactate 120 MG/ML Topical Cream Ammonium Lactate 10/27/2020 12:00:00 AM EST active [facility] ([facility] Trelegy Ellipta 100-62.5-25 MCG/INH Aerosol Powder [place] [facility] Activated [id number] 10/15/2020 12:00:00 AM EST 1 {puff} Inhalation activ e Inhale 1 puff into the lungs daily [facility] torsemide 100 MG Oral Tablet Torsemide 100 MG Oral Tab let (DEMADEX) Torsemide 100 MG Oral Tablet (DEMADEX) 10/10/2020 12:00:00 AM EST 100 mg Oral aborted Take 100 mg by mouth every morni ng And 50 mg nightly. [facility] rivaroxaban 15 MG Oral Tablet [Xarelto] Xarelto 10/09/2020 12:00:0 0 AM EST active [facility] (Mariama Minor MD) Trelegy Ellipta Trelegy Ellipta 10/05/2020 12:00:00 AM EST ORAL active [facility] (George ramirez MD) cefdinir 300 MG Oral Capsule Cefdinir 300 MG Oral Caps ule (CEFDINYL) Cefdinir 300 MG Oral Capsule (CEFDINYL) 09/13/2020 12:00:00 AM EST aborted [facility] Levofloxacin 500 MG Oral Tablet Levofloxacin 07/19/2020 12:00:[address] ORAL completed [facility] ([facility]) Allevyn 2X2 07/17/2020 12:00:00 AM EST active [facility] ([facility]) Apply To Right Hallux Everyn 3 Days 07/17/2020 12:00:00 AM EST active [facility] ([facility]) atorvastatin 40 MG Oral Tablet Atorvastatin Calcium 40 MG Oral Tablet (LIPITOR) Atorvastatin Calcium 40 MG Oral Tablet (LIPITOR) 04/13/2020 12:00:00 AM EDT 40 mg Oral aborted Take 40 mg by mouth [facility] clopidogrel 75 MG Oral Tablet clopidogrel (PLAVIX) 75 MG tablet clopidogrel (PLAVIX) 75 MG tablet 03/29/2020 12:00:00 AM EDT 75 mg Oral aborted Take 1 tablet (75 mg total) by mouth nightly [facility] Aspirin 81 MG Delayed Release Oral Tablet aspirin 81 M G EC tablet aspirin 81 MG EC tablet 05/21/2019 12:00:00 AM EDT 81 mg Oral aborted Take 81 mg by mouth daily [facility] HUMULIN R U-500 KWIKPEN 500 UNIT/ML SOPN [id number] 05/07/2019 12:00:00 AM EDT 70 U Subcutaneous aborted Inj ect 70 Units under the skin 3 (three) times a day with meals [facility] Acetaminophen 325 MG / Oxycodone Hydroch loride 5 MG Oral Tablet oxyCODONE- acetaminophen (PERCOCET) 5-325 MG per tablet oxyCODONE-acetaminophen (PERCOCET) 5-325 MG per tablet 1 {tbl} Oral aborted Take 1 tablet by mouth every 8 (eight) hours as needed for pain [facility] Hydralazine Hydrochloride 25 MG Oral Tab let hydrALAZINE (APRESOLINE) 25 MG tablet hydrALAZINE (APRESOLINE) 25 MG tablet 25 mg Oral aborted Take 25 mg by mouth 2 (two) times a day [facility] Metolazone 2.5 MG Oral Tablet metolazone (ZAROXOLYN) 2 .5 MG tablet metolazone (ZAROXOLYN) 2.5 MG tablet 2.5 mg Oral aborted Take 2.5 mg by mouth daily [facility] carvedilol 25 MG Oral Tablet carvedilol (COREG) 25 MG tablet carvedilol (COREG) 25 MG tablet 25 mg Oral aborted [place] e 25 mg by mouth 2 (two) times a day [facility] Amlodipine 10 MG Oral Tablet amLODIPine (NORVASC) 10 M G tablet amLODIPine (NORVASC) 10 MG tablet 10 mg Oral aborted Take 10 mg by mouth nightly [facility] Regular Insulin, Human 500 UNT/ML Inject able Solution insulin U-500 (HUMULIN R) 500 UNIT/ML concentrated injection insulin U-500 (HUMULIN R) 500 UNIT/ML concentrated injection Subcutaneous abort ed Inject into the skin Three times daily with meals 50 units with breakfast and lunch and 45 units with dinner. [facility] Insurance Providers Payer name Policy type / Coverage type Policy ID Covered democrat ID Covered democrat's relationship to nassar Policy Nassar Plan Information BS [facility] Part B [id number] Self Y [id number] BS [facility] Part B [id number] Self Y [id number] BS [facility] Part B [id number] Self Y [id number] [facility] Part B [id number] Self Y [id number] BS [facility] [employer] Part B [id number] Self Y [id number] BS [facility] [employer] Part B [id number] Self Y [id number] [facility] Part B [id number] Self [id number] [facility] Part B [id number] Self [id number] [facility] Part B [id number] Self [id number] [facility] Part B [id number] Self [id number] [facility] [facility] [id number] Self [id number] [facility] Part B [id number] Self [id number] BS [facility] Part B [id number] Self Y [id number] BS [facility] Part B [id number] Self Y [id number] BS [facility] Medigap Part B [id number] Self Y [id number] BS [facility] Med[facility] Part B [id number] Self Y [id number] BS [facility] Part B [id number] Self Y [id number] BS [facility] Part B [id number] Self Y [id number] MEDICARE [id number] SP [id number] A BLUE CROSS MEDICARE ADVANTAGE [id number] S [id number] BLUE CROSS MEDICARE ADVANTAGE [id number] S [id number] [place] Primary [id number] Self 0 [id number] [place] Primary [id number] Self 0 [id number] [place] Primary [id number] Self 0 [id number] Medicare [place] Medicare Primary [id number] Self 0 [id number] Medicare [place] Primary [id number] Self 0 [id number] AETNA MEDICARE [id number] SP MEBPZ [id number] EXCELLUS BCBS MEDICARE Medicare [id number] xxxxxxxxxxxx [id number] EXCELLUS MEDICARE BLUE PPO G [id number] Self [id number] EXCELLUS BCBS MEDICARE [id number] Regina [id number] EXCELLUS BCBS MEDICARE [id number] Regina [id number] EXCELLUS BCBS MCR HMO [id number] S [id number] EXCELLUS BCBS MCR HMO [id number] S [id number] FINANCIAL ASSISTANCE [id number] S [id number] FINANCIAL ASSISTANCE [id number] Other [id number] INSURANCE COVID-19 COVID Regina C OVID [id number] A MEDICARE [id number] SP [id number] BLUE CROSS MEDICARE ADVANTAGE [id number] Other [id number] EXCELLUS CNY MEDICARE HM [id number] 18 [id number] EXCELLUS BCBS B [id number] S [id number] [id number] BLUE CROSS BLUE SHIELD MCR - PROFEE [id number] 1 [id number] BLUE CROSS BLUE SHIELD MCR -OP [id number] 18 [id number] BLUE CROSS BLUE SHIELD MCR -IP [id number] 18 [id number] MEDICARE BLUE PPO 306 [id number] SP [id number] AETNA MEDICARE [id number] SP [id number] [id number] EXCELLUS BCBS MEDICARE Medicare [facility] ANSI-Medicare Part B [id number] ANSI-Medicare Part B [id number] ANSI-Medicare Part B [id number] ANSI-Medicare Part B [id number] [facility] [id number] [facility] [id number] MEDICARE [id number] SP [id number] A AETNA MEDICARE O [id number] S MEBPZ 4JM MEDICARE [id number] SP [id number] A AETNA MEDICARE [id number] SP MEBPZ 4JM MEDICARE [id number] SP [id number] A MEDICAID UNAVAILABLE UNAVAILA BLE Medicare [place] Medicare Primary [id number] Self 0 [id number] AETNA MEDICARE O [id number] S [id number] AETNA MEDICARE [id number] SP [id number] [facility] [place] [id number] SP [id number] [employer] INS CO -O/P [id number] 18 [id number] MEDICARE -O/P [id number] 18 [id number] MEDICARE -PHYSICIAN [id number] 18 [id number] [employer] -PHYSICIAN [id number] 18 [id number] MEDICARE BLUE PPO 306 [id number] SP [id number] Problems, Conditions, and Diagnoses Code Display Name Description Problem Type Effective Dates Data Source(s) Z91.11 Patient's noncompliance with dietary reg imen PATIENT'S NONCOMPLIANCE WITH DIETARY REGIMEN Diagnosis 05/04/2021 09:29:00 AM EDT [facility] Z91.19 Patient's noncompliance with other medic al treatment and regimen PATIENT'S NONCOMPLIANCE W OTH MEDICAL TREATMENT AND REGIMEN Diagnosis 05/04/2021 09:29:00 AM EDT [facility] E78.5 Hyperlipidemia, unspecified HYPERLIPIDEMIA, UNSPECIFIE D Diagnosis [facility]04[facility] Essential (primary) hypertension ESSENTIAL (PRIMARY) H YPERTENSION Diagnosis 05/04/2021 09:29:00 AM EDT [facility] E11.65 Type 2 diabetes mellitus with hyperglyce kristyn TYPE 2 DIABETES MELLITUS WITH HYPERGLYCEMIA Diagnosis 05/04/2021 09:29:00 AM EDT [facility] G47.30 Sleep apnea, unspecified Sleep apnea, unspecified Diag nosis 02/07/2021 03:03:00 PM EDT [facility] I21.9 Acute myocardial infarction, unspecified Acute myocardial infarction, unspecified Diagnosis 02/07/2021 03:03:00 PM EDT [facility] N18.4 Chronic kidney disease, stage 4 (severe) Chronic kidney disease, stage 4 (severe) Diagnosis 02/07/2021 03:03:00 PM EDT [facility] I11.0 Hypertensive heart disease with heart fa ilure Hypertensive heart disease with heart failure Diagnosis 01/14/2021 11:59:00 AM [facility] R77.8 Other specified abnormalities of plasma proteins Other specified abnormalities of plasma proteins Diagnosis 01/14/2021 11:59:00 AM [facility] R94.31 Abnormal electrocardiogram [ECG] [EKG] A bnormal electrocardiogram (ECG) (EKG) Diagnosis 01/14/2021 11:59:00 AM [facility] R06.02 Shortness of breath Shortness of breath Diagnosis 0 01/14/2021 11:59:00 AM [facility] I50.9 Heart failure, unspecified Heart failure, unspecified Diagnosis 01/14/2021 11:59:00 AM [facility] R07.9 Chest pain, unspecified Chest pain, unspecified Diagno sis 01/14/2021 11:59:00 AM [facility] J96.01 Acute respiratory failure with hypoxia A cute respiratory failure with hypoxia Diagnosis 01/14/2021 11:59:00 AM [facility] NSTEMI NSTEMI Diagnosis 01/14/2021 11:59:00 AM [facility] E04.0 Nontoxic diffuse goiter NONTOXIC DIFFUSE GOITER Diagno sis 01/10/2021 01:07:00 PM [facility] E03.9 Hypothyroidism, unspecified HYPOTHYROIDISM, UNSPECIFIE D Diagnosis 01/10/2021 01:07:00 PM [facility] 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 Diagnosis 11/06/2020 02:38:00 PM [facility] Z91.14 Patient's other noncompliance with medic ation regimen PATIENT'S OTHER NONCOMPLIANCE WITH MEDICATION REGIMEN Diagnosis 11/06/2020 02:38:00 PM [facility] E11.319 Type 2 diabetes mellitus wit h unspecified diabetic retinopathy without macular edema TYPE 2 DIABETES W UNSP DIABETIC RTNOP W/O MACULAR EDEMA Diag nosis 11/06/2020 02:38:00 PM [facility] [id number] Pain in right foot Pain in right foot Diagnosis 09:36:00 AM [facility] L84 Corns and callosities Corns and callosities Diagnosis 08/22/2020 09:36:00 AM [facility] 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 Diagnosis 08/22/2020 09:36: 00 AM [facility] B351 Tinea unguium Tinea unguium Diagnosis 08/22/2020 09:36:00 AM [facility] M2040 Other hammer toe(s) (acquired), unspecif ied foot Other hammer toe(s) (acquired), unspecified foot Diagnosis 08/22/2020 09:36:00 AM [facility] [id number] Contusion of right lesser toe(s) with da mage to nail, initial encounter Contusion of right lesser toe(s) with damage to nail, initial encounter Diagnosis 08/22/2020 09:36:00 AM [facility] E1151 Type 2 diabetes mellitus wit h diabetic peripheral angiopathy without gangrene Type 2 diabetes mellitus with diabetic p eripheral angiopathy without gangrene Diagnosis 08/22/2020 09:36:00 AM [facility] K60697 Pain in left foot Pain in left foot Diagnosis 07/13/2020 02:34:00 PM [facility] G66847 Pressure ulcer of other site, stage 3 Pr essure ulcer of other site, stage 3 Diagnosis 07/13/2020 02:34:00 PM [facility] Z952 Presence of prosthetic heart valve Presence of p rosthetic heart valve Diagnosis 07/05/2020 03:34:00 PM [facility] Z951 Presence of aortocoronary bypass graft P resence of aortocoronary bypass graft Diagnosis 07/05/2020 03:34:00 PM [facility] Z7901 USP (current) use of anticoagulant s USP (current) use of anticoagulants Diagnosis 07/05/2020 03:34:00 PM [facility] Z794 director long term care (current) use of insulin USP (cu rrent) use of insulin Diagnosis 07/05/2020 03:34:00 PM [facility] L03566 Other 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 container terminal (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 therapy O ther longterm (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 therapy Diagnosis 07/05/2020 03:34:00 PM [facility] Z7982 director long term care (current) use of aspirin USP (cu rrent) use of aspirin Diagnosis 07/05/2020 03:34:00 PM [facility] W43314 Presence of other cardiac implants and g rafts Presence of other cardiac implants and grafts Diagnosis 07/05/2020 03:34:00 PM [facility] G27865 Personal history of pulmonary embolism P ersonal history of pulmonary embolism Diagnosis 07/05/2020 03:34:00 PM [facility] E1122 Type 2 diabetes mellitus with diabetic c hronic kidney disease Type 2 diabetes mellitus with diabetic chronic kidney disease Diagnosis 07/05/2020 03:34:00 PM [facility] N184 Chronic kidney disease, stage 4 (severe) Chronic kidney disease, stage 4 (severe) Diagnosis 07/05/2020 03:34:00 PM [facility] 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 and stage 1 through stage 4 chronic kidney disease, or unspecified chronic kidney disease Hypertensive heart and chronic kidney disease with heart failure and stage 1 through stage 4 chronic kidney disease, or unspecified chronic kidney disease Diagnosis 07/05/2020 03:34:00 PM [facility] J449 Chronic obstructive pulmonary disease, u nspecified Chronic obstructive pulmonary disease, unspecified Diagnosis 07/05/2020 03:34:00 PM EST [facility] E7800 Pure hypercholesterolemia, unspecified P ure hypercholesterolemia, unspecified Diagnosis 07/05/2020 03:34:00 PM [facility] I509 Heart failure, unspecified Heart failure, unspecified Diagnosis 07/05/2020 03:34:00 PM [facility] I4820 Chronic atrial fibrillation, unspecified Chronic atrial fibrillation, unspecified Diagnosis 07/05/2020 03:34:00 PM [facility] I2510 Atherosclerotic heart diseas e of [place] coronary artery without angina pectoris Atherosclerotic heart disease of [place] coronary artery without angina pectoris Diagnosis 07/05/2020 03:34:00 PM [facility] V30473 Cellulitis of right lower limb Cellulitis of right low er limb Diagnosis 07/05/2020 03:34:00 PM [facility] B79328 Subacute osteomyelitis, right ankle and foot Subacute osteomyelitis, right ankle and foot Diagnosis 07/05/2020 03:34:00 PM [facility] R2241 Localized swelling, mass and lump, right lower limb Localized swelling, mass and lump, right lower limb Diagnosis 07/05/2020 03:34:00 PM [facility] [id number] Blister (nonthermal), left great toe, in itial encounter Blister (nonthermal), left great toe, initial encounter Diagnosis 2019 02:03:00 PM [facility] Y9289 Other specified places as the place of o ccurrence of the external cause Other specified places as the place of occurrence of the external cause Diagnosis [facility]/31[facility]2020 [id number] Exposure to other specified factors, ini tial encounter Exposure to other specified factors, initial encounter Diagnosis 05/31/2020 04:25:00 PM [facility] E119 Type 2 diabetes mellitus without complic ations Type 2 diabetes mellitus without complications Diagnosis 05/31[facility]2020 [facility] Hypertensive heart disease with heart fa ilure Hypertensive heart disease with heart failure Diagnosis 05/31/2020 [facility] [id number] Laceration without foreign b vivek of right index finger without damage to nail, initial encounter Laceration without foreign body of right index finger without damage to nail, initial encounter Diagnosis 05/31/2020 04:25:0 0 PM [facility] E61417M Unspecified open wound of ri ght index finger without damage to nail, initial encounter Unspecified open wound of right index fi nger without damage to nail, initial encounter Diagnosis 05/31/2020 04:25:00 PM [facility] Y92.010 Kitchen of single-family (pr ivate) house as the place of occurrence of the external cause KITCHEN OF SINGLE-FAMILY (PRIVATE) HOUSE PLACE Diagnosis 05/30/2020 11:46:00 AM [facility] W26.8XXA Contact with other sharp obj ect(s), not elsewhere classified, initial encounter CONTACT WITH OTHER SHARP OBJECT(S), NEC, INITIAL ENCOUNTER D iagnosis 05/30/2020 11:46:00 AM [facility] Z95.2 Presence of prosthetic heart valve PRESENCE OF P ROSTHETIC HEART VALVE Diagnosis 05/30/2020 11:46:00 AM [facility] Z95.1 Presence of aortocoronary bypass graft P RESENCE OF AORTOCORONARY BYPASS GRAFT Diagnosis 05/30/2020 11:46:00 AM 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 S61.215A Laceration without foreign b vivek of left ring finger without damage to nail, initial encounter LACERATION W/O FB OF L RNG FNGR W/O DONAY GE TO NAIL, INIT Diagnosis 05/30/2020 11:46:00 AM EDT [facility] normantal S61.012A Laceration without foreign b vivek of left thumb without damage to nail, initial encounter LACERATION W/O FB OF LEFT THUMB W/O DAMAGE TO NAIL, IN IT Diagnosis 05/30/2020 11:46:[address] [facility] S61.213A Laceration without foreign b vivek of left middle finger without damage to nail, initial encounter LACERATION W/O FB OF L MID FINGER W/O DA MAGE TO NAIL, INIT Diagnosis 05/30/2020 11:46:[address] [facility] X[facility] Unspecified place in unspeci fied non-institutional (private) residence as the place of occurrence of the external cause Unspecified place in unspecified non-institutional (private) residence as the place of occurrence of the external cause Diagnosis 05/19/2020 07:31:00 PM EDT [facility] Z23 Encounter for immunization Encounter for immunization Diagnosis 05/19/2020 07:31:00 PM EDT [facility] [id number] Unspecified open wound of ri ght great toe without damage to nail, initial encounter Unspecified open wound of right great to e without damage to nail, initial encounter Diagnosis 05/19/2020 07:31:00 PM EDT [facility] [id number] Unspecified injury of right foot, initia l encounter Unspecified injury of right foot, initial encounter Diagnosis 05/19/2020 07:31:00 PM EDT [facility] I21.9 Acute myocardial infarction Acute myocardial infarctio n [id number] 02/07/2021 12:00:00 AM EDT [facility] I21.4 Non-ST elevation (NSTEMI) myocardial inf arction Non-ST elevation (NSTEMI) myocardial infarction [id number] 02/07/2021 12:00:00 AM EDT [facility] L84 Callosity Callosity Problem 11/01/2020 12:00:00 AM ES T [facility] ([facility] B35.1 Onychomycosis Onychomycosis Problem 11/01/2020 12:00:00 AM EST [facility] ([facility] E11.621 Type 2 diabetes mellitus with ulcer Type 2 diabe rashawn mellitus with ulcer Problem 08/16/2020 12:00:00 AM EST - 11/01/2020 12:00:00 AM ES T [facility] ([facility] L89.892 Pressure ulcer of other site, [...] 12:00:00 AM EST [facility] ([facility] [id number] Pressure ulcer of right foot stage 3 Pre ssure ulcer of right foot stage 3 Problem 07/13/2020 12:00:00 AM EST [facility] ([facility]) [id number] Blister of toe without infection Blister of toe without infection Problem 05/22/2020 12:00:00 AM EDT [facility] ([facility]) Surgeries/Procedures Procedure Description Date Indications Data Source(s) OFFICE OUTPATIENT VISIT 15 MINUTES 06/18/2021 12:00:00 AM EDT [facility] ([facility], ) ECG ROUTINE ECG W/LEAST 12 LDS W/I&R 05/10/2021 12:00: 00 AM EDT [facility] ([facility]) OFFICE OUTPATIENT VISIT 25 MINUTES 05/10/2021 12:00:[facility] clinic visit for assessment and ma nagement of a patient Hospital Outpatient Clinic Visit 05/04/2021 12:00:00 AM EDT [facility] GLUC BLD GLUC MNTR DEV CLEARED FDA SPEC HOME USE GLUCOSE BLO OD TEST 05/04/2021 12:00:00 AM EDT [facility] OFFICE OUTPATIENT VISIT 15 MINUTES 04/30/2021 12:00:00 AM EDT [facility] ([facility], ) PARING/CUTTING BENIGN HYPERKERATOTIC LESION 1 03/13/20 12:00:00 AM EDT [facility] ([facility] DEBRIDEMENT NAIL ANY METHOD 03/13/2021 12:00:00 AM EDT [facility] ([facility] ECG ROUTINE ECG W/LEAST 12 LDS W/I&R 02/26/2021 12:00: 00 [facility] OUTPATIENT VISIT 25 MINUTES 02/26/2021 12:00:00 AM EDT [facility] ([facility]) GLUC BLD GLUC MNTR DEV CLEARED FDA SPEC HOME USE <td>P OCT GLUCOSE</td><td>Routine</td><td>02/11/2021 1:55 PM EDT</td><td></td><td> </td> 02/11/2021 01:55:00 PM EDT [facility] GLUC BLD GLUC MNTR DEV CLEARED FDA SPEC HOME USE <td>P OCT GLUCOSE</td><td>Routine</td><td>02/11/2021 9:15 AM EDT</td><td></td><td> </td> 02/11/2021 09:15:00 AM EDT [facility] BLOOD COUNT COMPLETE AUTOMATED <td>CBC</td><td>Timed</ td><td>02/11/2021 6:29 AM EDT</td><td></td><td> </td> 02/11/2021 06:29:00 AM EDT [facility] BASIC METABOLIC PANEL CALCIUM TOTAL <td>BASIC METABOLI C PANEL</td><td>Timed</td><td>02/11/2021 6:29 AM EDT</td><td></td><td> </td> 02/11/2021 06:29:00 AM EDT [facility] GLUC BLD GLUC MNTR DEV CLEARED FDA SPEC HOME USE <td>P OCT GLUCOSE</td><td>Routine</td><td>02/10/2021 9:25 PM EDT</td><td></td><td> </td> 02/10/2021 09:25:00 PM EDT [facility] GLUC BLD GLUC MNTR DEV CLEARED FDA SPEC HOME USE <td>P OCT GLUCOSE</td><td>Routine</td><td>02/10/2021 6:57 PM EDT</td><td></td><td> </td> 02/10/2021 06:57:00 PM EDT [facility] BLOOD TYPING ABO <td>TYPE AND SCREEN</td><td> Routine</td><td>02/10/2021 1:44 PM EDT</td><td></td><td> </td> 02/10/2021 01:44:00 PM EDT [facility] GLUC BLD GLUC MNTR DEV CLEARED FDA SPEC HOME USE <td>P OCT GLUCOSE</td><td>Routine</td><td>02/10/2021 1:42 PM EDT</td><td></td><td> </td> 02/10/2021 01:42:00 PM EDT [facility] BLOOD OCCULT PEROXIDASE ACTV QUAL FECES 1 DETER <td>OC CULT BLOOD X 1, STOOL</td><td>Routine</td><td>02/10/2021 12:40 PM EDT</td><td></td><td> </td> 02/10/2021 12:40:00 PM EDT [facility] DUP-SCAN LXTR ART/ARTL BPGS UNI/LMTD STUDY <td>US COLO R DOPPLER LOWER EXTREMITY ARTERIES LIMITED RIGHT</td><td>Routine</td><td>02/10/2021 11:01 AM EDT</td><td></td><td> </td> 02/10/2021 11:01:55 AM EDT [facility] BLOOD COUNT COMPLETE AUTOMATED <td>CBC</td><td>STAT</t d><td>02/10/2021 9:44 AM EDT</td><td></td><td> </td> 02/10/2021 09:44:00 AM EDT [facility] BASIC METABOLIC PANEL CALCIUM TOTAL <td>BASIC METABOLI C PANEL</td><td>Timed</td><td>02/10/2021 9:44 AM EDT</td><td></td><td> </td> 02/10/2021 09:44:00 AM EDT [facility] GLUC BLD GLUC MNTR DEV CLEARED FDA SPEC HOME USE <td>P OCT GLUCOSE</td><td>Routine</td><td>02/10/2021 9:34 AM EDT</td><td></td><td> </td> 02/10/2021 09:34:00 AM EDT [facility] GLUC BLD GLUC MNTR DEV CLEARED FDA SPEC HOME USE <td>P OCT GLUCOSE</td><td>Routine</td><td>02/09/2021 10:16 PM EDT</td><td></td><td> </td> 02/09/2021 10:16:00 PM EDT [facility] GLUC BLD GLUC MNTR DEV CLEARED FDA SPEC HOME USE <td>P OCT GLUCOSE</td><td>Routine</td><td>02/09/2021 7:11 PM EDT</td><td></td><td> </td> 02/09/2021 07:11:00 PM EDT [facility] GLUC BLD GLUC MNTR DEV CLEARED FDA SPEC HOME USE <td>P OCT GLUCOSE</td><td>Routine</td><td>02/09/2021 3:38 PM EDT</td><td></td><td> </td> 02/09/2021 03:38:00 PM EDT [facility] GLUC BLD GLUC MNTR DEV CLEARED FDA SPEC HOME USE <td>P OCT GLUCOSE</td><td>Routine</td><td>02/09/2021 9:10 AM EDT</td><td></td><td> </td> 02/09/2021 09:10:00 AM EDT [facility] CMB <td>CMB</td><td>STAT</td><td >02/09/2021 7:24 AM EDT</td><td></td><td> </td> 02/09/2021 07:24:00 AM EDT [facility] BLOOD COUNT COMPLETE AUTOMATED <td>CBC</td><td>Timed</ td><td>02/09/2021 7:24 AM EDT</td><td></td><td> </td> 02/09/2021 07:24:00 AM EDT [facility] CREATINE KINASE MB FRACTION ONLY <td>CKMB</td><td>Rout ine</td><td>02/09/2021 7:24 AM EDT</td><td></td><td> </td> 02/09/2021 07:24:00 AM EDT [facility] BASIC METABOLIC PANEL CALCIUM TOTAL <td>BASIC METABOLI C PANEL</td><td>Timed</td><td>02/09/2021 7:24 AM EDT</td><td></td><td> </td> 02/09/2021 07:24:00 AM EDT [facility] ECG ROUTINE ECG W/LEAST 12 LDS TRCG ONLY W/O I&R <td>E CG 12- LEAD</td><td>Routine</td><td>02/09/2021 5:19 AM EDT</td><td></td><td></td> 02/09/2021 05:19:46 AM EDT [facility] BLOOD COUNT COMPLETE AUTOMATED <td>CBC</td><td>STAT</t d><td>02/08/2021 11:11 PM EDT</td><td></td><td> </td> 02/08/2021 11:11:00 PM EDT [facility] GLUC BLD GLUC MNTR DEV CLEARED FDA SPEC HOME USE <td>P OCT GLUCOSE</td><td>Routine</td><td>02/08/2021 9:03 PM EDT</td><td></td><td> </td> 02/08/2021 09:03:00 PM EDT [facility] GLUC BLD GLUC MNTR DEV CLEARED FDA SPEC HOME USE <td>P OCT GLUCOSE</td><td>Routine</td><td>02/08/2021 3:55 PM EDT</td><td></td><td> </td> 02/08/2021 03:55:00 PM EDT [facility] CARDIAC CATHETERIZATION <td>CARDIAC CATHETERIZATION</td><td>Routine</td><td>02/08/2021 2:25 PM EDT</td><td> Acute myocardial infarction</td><td> </td> 02/08/2021 02:25:25 PM EDT Acute myocardial infarction [facility] Acute myocardial infarction THROMBOPLASTIN TIME PARTIAL PLASMA/WHOLE BLOOD <td>APTT</td><td>STAT</td><td>02/08/2021 12:20 PM EDT</td><td></td><td> </td> 02/08/2021 12:20:00 PM EDT [facility] GLUC BLD GLUC MNTR DEV CLEARED FDA SPEC HOME USE <td>P OCT GLUCOSE</td><td>Routine</td><td>02/08/2021 11:19 AM EDT</td><td></td><td> </td> 02/08/2021 11:19:00 AM EDT [facility] GLUC BLD GLUC MNTR DEV CLEARED FDA SPEC HOME USE <td>P OCT GLUCOSE</td><td>Routine</td><td>02/08/2021 8:17 AM EDT</td><td></td><td> </td> 02/08/2021 08:17:00 AM EDT [facility] THROMBOPLASTIN TIME PARTIAL PLASMA/WHOLE BLOOD <td>APTT</td><td>STAT</td><td>02/08/2021 4:02 AM EDT</td><td></td><td> </td> 02/08/2021 04:02:00 AM EDT [facility] BLOOD COUNT COMPLETE AUTOMATED <td>CBC</td><td>Routine </td><td>02/08/2021 4:02 AM EDT</td><td></td><td> </td> 02/08/2021 04:02:00 AM EDT [facility] [facility] BASIC METABOLIC PANEL CALCIUM TOTAL <td>BASIC METABOLI C PANEL</td><td>Routine</td><td>02/08/2021 4:02 AM EDT</td><td></td><td> </td> 02/08/2021 04:02:00 AM EDT [facility] COVID/FLU AB/RSV PCR <td>COVID/FLU AB/RSV PCR</td ><td>STAT</td><td>02/07/2021 10:40 PM EDT</td><td></td><td> </td> 02/07/2021 10:40:00 PM EDT [facility] THROMBOPLASTIN TIME PARTIAL PLASMA/WHOLE BLOOD <td>APTT</td><td>Routine</td><td>02/07/2021 9:44 PM EDT</td><td></td><td> </td> 02/07/2021 09:44:00 PM EDT [facility] ECG ROUTINE ECG W/LEAST 12 LDS TRCG ONLY W/O I&R <td>E CG 12- LEAD</td><td>Routine</td><td>02/07/2021 8:37 PM EDT</td><td></td><td></td> 02/07/2021 08:37:43 PM EDT [facility] ECG ROUTINE ECG W/LEAST 12 LDS TRCG ONLY W/O I&R <td>E CG 12- LEAD</td><td>Routine</td><td>02/07/2021 3:29 PM EDT</td><td></td><td></td> 02/07/2021 03:29:10 PM EDT [facility] CMB <td>CMB</td><td>STAT</td><td >02/07/2021 3:26 PM EDT</td><td></td><td> </td> 02/07/2021 03:26:00 PM EDT [facility] NT PRO BNP <td>NT PRO BNP</td><td>Routi ne</td><td>02/07/2021 3:26 PM EDT</td><td></td><td> </td> 02/07/2021 03:26:00 PM EDT [facility] TROPONIN QUANTITATIVE <td>TROPONIN I</td><td>STAT< /td><td>02/07/2021 3:26 PM EDT</td><td></td><td> </td> 02/07/2021 03:26:00 PM EDT [facility] THROMBOPLASTIN TIME PARTIAL PLASMA/WHOLE BLOOD <td>APT T</td><td>Add- On</td><td>02/07/2021 3:26 PM EDT</td><td></td><td> </td> 02/07/2021 03:26:00 PM EDT [facility] BLOOD COUNT COMPLETE AUTOMATED <td>CBC</td><td>STAT</t d><td>02/07/2021 3:26 PM EDT</td><td></td><td> </td> 02/07/2021 03:26:00 PM EDT [facility] HEMOGLOBIN GLYCOSYLATED A1C <td>HEMOGLOBIN A1C</td><td >Add-On</td><td>02/07/2021 3:26 PM EDT</td><td></td><td> </td> 02/07/2021 03:26:00 PM EDT [facility] CREATINE KINASE MB FRACTION ONLY <td>CKMB</td><td>Add- On</td><td>02/07/2021 3:26 PM EDT</td><td></td><td> </td> 02/07/2021 03:26:00 PM EDT [facility] BASIC METABOLIC PANEL CALCIUM TOTAL <td>BASIC METABOLI C PANEL</td><td>STAT</td><td>02/07/2021 3:26 PM EDT</td><td></td><td> </td> 02/07/2021 03:26:00 PM EDT [facility] GLUC BLD GLUC MNTR DEV CLEARED FDA SPEC HOME USE <td>P OCT GLUCOSE</td><td>Routine</td><td>02/07/2021 3:14 PM EDT</td><td></td><td> </td> 02/07/2021 03:14:00 PM EDT [facility] OFFICE OUTPATIENT VISIT 25 MINUTES 02/05/2021 12:00:00 AM EDT [facility] (George Minor MD) OFFICE OUTPATIENT NEW 30 MINUTES 01/23/2021 12:00:00 A M EDT [facility] ([facility], ) POCT GLUCOSE, DOCKED <td>POCT GLUCOSE, DOCKED</td ><td>Routine</td><td>01/19/2021 1:08 PM EDT</td><td></td><td> </td> 01/19/2021 01:08:00 PM [facility] POCT GLUCOSE, DOCKED <td>POCT GLUCOSE, DOCKED</td ><td>Routine</td><td>01/19/2021 9:08 AM EDT</td><td></td><td> </td> 01/19/2021 09:08:00 AM [facility] BLOOD COUNT COMPLETE AUTO&AUTO DIFRNTL WBC COUNT <td>C BC AND DIFFERENTIAL</td><td>Routine</td><td>01/19/2021 5:30 AM EDT</td><td></td><td> </td> 01/19/2021 05:30:00 AM [facility] BASIC METABOLIC PANEL CALCIUM TOTAL <td>BASIC METABOLI C PANEL</td><td>Routine</td><td>01/19/2021 5:30 AM EDT</td><td></td><td> </td> 01/19/2021 05:30:00 AM [facility] GLUCOSE QUANTITATIVE BLOOD XCPT REAGENT STRIP <td>POCT GLUCOSE, DOCKED</td><td>Routine</td><td>01/18/2021 10:31 PM EDT</td><td></td><td> </td> 01/18/2021 10:31:00 PM [facility] GLUCOSE QUANTITATIVE BLOOD XCPT REAGENT STRIP <td>POCT GLUCOSE, DOCKED</td><td>Routine</td><td>01/18/2021 5:36 PM EDT</td><td></td><td> </td> 01/18/2021 05:36:00 PM [facility] GLUCOSE QUANTITATIVE BLOOD XCPT REAGENT STRIP <td>POCT GLUCOSE, DOCKED</td><td>Routine</td><td>01/18/2021 12:28 PM EDT</td><td></td><td> </td> 01/18/2021 12:28:00 PM [facility] GLUCOSE QUANTITATIVE BLOOD XCPT REAGENT STRIP <td>POCT GLUCOSE, DOCKED</td><td>Routine</td><td>01/18/2021 8:42 AM EDT</td><td></td><td> </td> 01/18/2021 08:42:00 AM [facility] BLOOD COUNT COMPLETE AUTO&AUTO DIFRNTL WBC COUNT <td>C BC AND DIFFERENTIAL</td><td>Routine</td><td>01/18/2021 3:34 AM EDT</td><td></td><td> </td> 01/18/2021 03:34:00 AM [facility] PARATHORMONE <td>PTH, INTACT</td><td>Rout ine</td><td>01/18/2021 3:34 AM EDT</td><td></td><td> </td> 01/18/2021 03:34:00 AM [facility] BASIC METABOLIC PANEL CALCIUM TOTAL <td>BASIC METABOLI C PANEL</td><td>Routine</td><td>01/18/2021 3:34 AM EDT</td><td></td><td> </td> 01/18/2021 03:34:00 AM [facility] GLUCOSE QUANTITATIVE BLOOD XCPT REAGENT STRIP <td>POCT GLUCOSE, DOCKED</td><td>Routine</td><td>01/17/2021 8:24 PM EDT</td><td></td><td> </td> 01/17/2021 08:24:00 PM [facility] BLOOD COUNT COMPLETE AUTOMATED <td>CBC</td><td>Routine </td><td>01/17/2021 7:43 PM EDT</td><td></td><td> </td> 01/17/2021 07:43:00 PM [facility] GLUCOSE QUANTITATIVE BLOOD XCPT REAGENT STRIP <td>POCT GLUCOSE, DOCKED</td><td>Routine</td><td>01/17/2021 5:30 PM EDT</td><td></td><td> </td> 01/17/2021 05:30:00 PM [facility] GLUCOSE QUANTITATIVE BLOOD XCPT REAGENT STRIP <td>POCT GLUCOSE, DOCKED</td><td>Routine</td><td>01/17/2021 12:16 PM EDT</td><td></td><td> </td> 01/17/2021 12:16:00 PM [facility] GLUCOSE QUANTITATIVE BLOOD XCPT REAGENT STRIP <td>POCT GLUCOSE, DOCKED</td><td>Routine</td><td>01/17/2021 8:44 AM EDT</td><td></td><td> </td> 01/17/2021 08:44:00 AM [facility] BLOOD COUNT COMPLETE AUTOMATED <td>CBC AND DIFFERENTIAL</td><td>Routine</td><td>01/17/2021 6:00 AM EDT</td><td></td><td> </td> 01/17/2021 06:00:00 AM [facility] TROPONIN QUANTITATIVE <td>TROPONIN T</td><td>Timed </td><td>01/17/2021 6:00 AM EDT</td><td></td><td> </td> 01/17/2021 06:00:00 AM [facility] BASIC METABOLIC PANEL CALCIUM TOTAL <td>BASIC METABOLI C PANEL</td><td>Routine</td><td>01/17/2021 6:00 AM EDT</td><td></td><td> </td> 01/17/2021 06:00:00 AM [facility] BLOOD COUNT COMPLETE AUTO&AUTO DIFRNTL WBC COUNT <td>C BC AND DIFFERENTIAL</td><td>Routine</td><td>01/17/2021 2:07 AM EDT</td><td></td><td> </td> 01/17/2021 02:07:00 AM [facility] TROPONIN QUANTITATIVE <td>TROPONIN T</td><td>Timed </td><td>01/17/2021 2:07 AM EDT</td><td></td><td> </td> 01/17/2021 02:07:00 AM [facility] GLUCOSE QUANTITATIVE BLOOD XCPT REAGENT STRIP <td>POCT GLUCOSE, DOCKED</td><td>Routine</td><td>01/16/2021 8:19 PM EDT</td><td></td><td> </td> 01/16/2021 08:19:00 PM [facility] TROPONIN QUANTITATIVE <td>TROPONIN T</td><td>Timed </td><td>01/16/2021 7:52 PM EDT</td><td></td><td> </td> 01/16/2021 07:52:00 PM [facility] GLUCOSE QUANTITATIVE BLOOD XCPT REAGENT STRIP <td>POCT GLUCOSE, DOCKED</td><td>Routine</td><td>01/16/2021 5:32 PM EDT</td><td></td><td> </td> 01/16/2021 05:32:00 PM [facility] SEDIMENTATION RATE RBC AUTOMATED <td>SEDIMENTATION RAT E, AUTOMATED</td><td>Routine</td><td>01/16/2021 12:56 PM EDT</td><td></td><td> </td> 01/16/2021 12:56:00 PM [facility] BLOOD COUNT COMPLETE AUTO&AUTO DIFRNTL WBC COUNT <td>C BC AND DIFFERENTIAL</td><td>Routine</td><td>01/16/2021 12:56 PM EDT</td><td></td><td> </td> 01/16/2021 12:56:00 PM [facility] C-REACTIVE PROTEIN <td>INFLAMMATORY C-REACTIVE PROTEIN (CRP)</td><td>Routine</td><td>01/16/2021 12:56 PM EDT</td><td></td><td> </td> 01/16/2021 12:56:00 PM [facility] TROPONIN QUANTITATIVE <td>TROPONIN T</td><td>Routi ne</td><td>01/16/2021 12:56 PM EDT</td><td></td><td> </td> 01/16/2021 12:56:00 PM [facility] LACTATE <td>LACTIC ACID LEVEL, PLASM A</td><td>STAT</td><td>01/16/2021 12:56 PM EDT</td><td></td><td> </td> 01/16/2021 12:56:00 PM [facility] COMPREHENSIVE METABOLIC PANEL <td>COMPREHENSIVE METABO LIC PANEL</td><td>Routine</td><td>01/16/2021 12:56 PM EDT</td><td></td><td> </td> 01/16/2021 12:56:00 PM [facility] GLUCOSE QUANTITATIVE BLOOD XCPT REAGENT STRIP <td>POCT GLUCOSE, DOCKED</td><td>Routine</td><td>01/16/2021 12:10 PM EDT</td><td></td><td> </td> 01/16/2021 12:10:[address] [facility] [address] HEAD/BRAIN W/O CONTRAST MATERIAL <td>CT HEAD WITHOU T CONTRAST [id number]</td><td>STAT</td><td>01/16/2021 10:23 AM EDT</td><td></td><td> </td> 01/16/2021 10:23:15 AM [facility] GLUCOSE QUANTITATIVE BLOOD XCPT REAGENT STRIP <td>POCT GLUCOSE, DOCKED</td><td>Routine</td><td>01/16/2021 8:27 AM EDT</td><td></td><td> </td> 01/16/2021 08:27:00 AM [facility] EKG 12-LEAD - CMAXX REPORT <td>EKG 12-LEAD - CMAXX REPORT</td><td></td><td>01/16/2021 6:47 AM EDT</td><td></td><td></td> 01/16/2021 06:47:03 AM [facility] EKG 12-LEAD - CMAXX REPORT <td>EKG 12-LEAD - CMAXX REPORT</td><td></td><td>01/16/2021 6:47 AM EDT</td><td></td><td></td> 01/16/2021 06:47:03 AM [facility] EKG 12-LEAD <td>EKG 12-LEAD</td><td>Rout ine</td><td>01/16/2021 6:47 AM EDT</td><td></td><td> </td> 01/16/2021 06:47:03 AM [facility] BLOOD COUNT RETICULOCYTE AUTOMATED <td>RETICULOCYTES</td><td>Routine</td><td>01/16/2021 6:18 AM EDT</td><td></td><td> </td> 01/16/2021 06:18:00 AM [facility] BLOOD COUNT COMPLETE AUTO&AUTO DIFRNTL WBC COUNT <td>C BC AND DIFFERENTIAL</td><td>Routine</td><td>01/16/2021 6:18 AM EDT</td><td></td><td> </td> 01/16/2021 06:18:00 AM [facility] TROPONIN QUANTITATIVE <td>TROPONIN T</td><td>Routi ne</td><td>01/16/2021 6:18 AM EDT</td><td></td><td> </td> 01/16/2021 06:18:00 AM [facility] NEUTROPHIL CYTO AB COMMENT <td>NEUTROPHIL CYTO AB COMMENT</td><td>Routine</td><td>01/16/2021 12:49 AM EDT</td><td></td><td> </td> 01/16/2021 12:49:00 AM [facility] IAAD EIA HIV-1 AG W/HIV-1&HIV-2 ANTBDY SINGLE <td>HIV AG AB COMBO SCREEN</td><td>Routine</td><td>01/16/2021 12:49 AM EDT</td><td></td><td> </td> 01/16/2021 12:49:00 AM [facility] FLUORESCENT NONNFCT AGT ANTB TITER EA ANTIBODY <td>SARAN TROPHIL CYTOPLASMIC ANTIBODY</td><td>Routine</td><td>01/16/2021 12:49 AM EDT</td><td></td><td> </td> 01/16/2021 12:49:00 AM [facility] HEPATITIS B CORE ANTIBODY HBCAB IGM ANTIBODY <td>HEPAT ITIS B CORE ANTIBODY, IGM</td><td>Routine</td><td>01/16/2021 12:49 AM EDT</td><td></td><td> </td> 01/16/2021 12:49:00 AM [facility] HEPATITIS B CORE ANTIBODY HBCAB TOTAL <td>HEPATITIS B CORE ANTIBODY, TOTAL</td><td>Routine</td><td>01/16/2021 12:49 AM EDT</td><td></td><td> </td> 01/16/2021 12:49:00 AM [facility] IADNA HEPATITIS C QUANTIFICATION <td>HEPATITIS C RNA, QUANTITATIVE, PCR</td><td>Routine</td><td>01/16/2021 12:49 AM EDT</td><td></td><td> </td> 01/16/2021 12:49:00 AM [facility] HEPATITIS B SURF ANTIBODY HBSAB <td>HEPATITIS B SURFAC E ANTIBODY</td><td>Routine</td><td>01/16/2021 12:49 AM EDT</td><td></td><td> </td> 01/16/2021 12:49:00 AM [facility] IAAD EIA HEPATITIS B SURFACE ANTIGEN <td>HEPATITIS B S URFACE ANTIGEN</td><td>Routine</td><td>01/16/2021 12:49 AM EDT</td><td></td><td> </td> 01/16/2021 12:49:00 AM [facility] TROPONIN QUANTITATIVE <td>TROPONIN T</td><td>Routi ne</td><td>01/16/2021 12:49 AM EDT</td><td></td><td> </td> 01/16/2021 12:49:00 AM [facility] PROTEIN XCPT REFRACTOMETRY SERUM PLASMA/WHL BLD <td>DE OTEIN ELECTROPHORESIS WITH SERUM TOTAL PROTEIN</td><td>Routine</td><td>01/16/2021 12:49 AM EDT</td><td></td><td> </td> 01/16/2021 12:49:00 AM [facility] FOLIC ACID SERUM <td>FOLATE</td><td>Routine</ td><td>01/16/2021 12:49 AM EDT</td><td></td><td> </td> 01/16/2021 12:49:00 AM [facility] UREA NITROGEN URINE <td>UREA NITROGEN, URINE</td ><td>Routine</td><td>01/16/2021 12:38 AM EDT</td><td></td><td> </td> 01/16/2021 12:38:00 AM [facility] SODIUM URINE <td>SODIUM, URINE, RANDOM</t d><td>Routine</td><td>01/16/2021 12:38 AM EDT</td><td></td><td> </td> 01/16/2021 12:38:00 AM [facility] PROTEIN TOTAL XCPT REFRACTOMETRY URINE <td>PROTEIN ASAD CTROPHORESIS, URINE</td><td>Routine</td><td>01/16/2021 12:38 AM EDT</td><td></td><td> </td> 01/16/2021 12:38:00 AM [facility] OSMOLALITY URINE <td>OSMOLALITY, URINE</td><t d>Routine</td><td>01/16/2021 12:38 AM EDT</td><td></td><td> </td> 01/16/2021 12:38:00 AM [facility] CREATININE OTHER SOURCE <td>CREATININE, URINE, RANDOM</td><td>Routine</td><td>01/16/2021 12:38 AM EDT</td><td></td><td> </td> 01/16/2021 12:38:00 AM [facility] CHLORIDE URINE <td>CHLORIDE, URINE, RANDOM< /td><td>Routine</td><td>01/16/2021 12:38 AM EDT</td><td></td><td> </td> 01/16/2021 12:38:00 AM [facility] GLUCOSE QUANTITATIVE BLOOD XCPT REAGENT STRIP <td>POCT GLUCOSE, DOCKED</td><td>Routine</td><td>01/15/2021 9:29 PM EDT</td><td></td><td> </td> 01/15/2021 09:29:00 PM [facility] US RETROPERITONEAL REAL TIME W/IMAGE COMPLETE <td>US R ENAL OR AORTA COMPLETE [id number]</td><td>Routine</td><td>01/15/2021 9:25 PM EDT</td><td></td><td> </td> 01/15/2021 09:25:06 PM [facility] IRON <td>TOTAL FE BINDING CAPACIT Y</td><td>Routine</td><td>01/15/2021 6:13 PM EDT</td><td></td><td> </td> 01/15/2021 06:13:00 PM [facility] COMPLEMENT ANTIGEN EACH COMPONENT <td>C3 COMPLEMENT</td><td>Routine</td><td>01/15/2021 6:13 PM EDT</td><td></td><td> </td> 01/15/2021 06:13:00 PM [facility] COMPLEMENT ANTIGEN EACH COMPONENT <td>C4 COMPLEMENT</td><td>Routine</td><td>01/15/2021 6:13 PM EDT</td><td></td><td> </td> 01/15/2021 06:13:00 PM [facility] TROPONIN QUANTITATIVE <td>TROPONIN T</td><td>Timed </td><td>01/15/2021 6:13 PM EDT</td><td></td><td> </td> 01/15/2021 06:13:00 PM [facility] FERRITIN <td>FERRITIN LEVEL</td><td>R outine</td><td>01/15/2021 6:13 PM EDT</td><td></td><td> </td> 01/15/2021 06:13:00 PM [facility] CYANOCOBALAMIN VITAMIN B-12 <td>VITAMIN B12</td><td>Ro utine</td><td>01/15/2021 6:13 PM EDT</td><td></td><td> </td> 01/15/2021 06:13:00 PM [facility] GLUCOSE QUANTITATIVE BLOOD XCPT REAGENT STRIP <td>POCT GLUCOSE, DOCKED</td><td>Routine</td><td>01/15/2021 5:18 PM EDT</td><td></td><td> </td> 01/15/2021 05:18:00 PM [facility] ECHO TTHRC R-T 2D W/WOM-MODE COMPL SPEC&COLR DOP <td>E CHOCARDIOGRAM 2D COMPLETE</td><td>Routine</td><td>01/15/2021 1:48 PM EDT</td><td></td><td> </td> 01/15/2021 01:48:48 PM [facility] GLUCOSE QUANTITATIVE BLOOD XCPT REAGENT STRIP <td>POCT GLUCOSE, DOCKED</td><td>Routine</td><td>01/15/2021 12:40 PM EDT</td><td></td><td> </td> 01/15/2021 12:40:00 PM [facility] TROPONIN QUANTITATIVE <td>TROPONIN T</td><td>Timed </td><td>01/15/2021 11:44 AM EDT</td><td></td><td> </td> 01/15/2021 11:44:00 AM [facility] GLUCOSE QUANTITATIVE BLOOD XCPT REAGENT STRIP <td>POCT GLUCOSE, DOCKED</td><td>Routine</td><td>01/15/2021 8:03 AM EDT</td><td></td><td> </td> 01/15/2021 08:03:00 AM [facility] EKG 12-LEAD - CMAXX REPORT <td>EKG 12-LEAD - CMAXX REPORT</td><td></td><td>01/15/2021 5:13 AM EDT</td><td></td><td></td> 01/15/2021 05:13:46 AM [facility] EKG 12-LEAD - CMAXX REPORT <td>EKG 12-LEAD - CMAXX REPORT</td><td></td><td>01/15/2021 5:13 AM EDT</td><td></td><td></td> 01/15/2021 05:13:46 AM [facility] EKG 12-LEAD <td>EKG 12-LEAD</td><td>Rout ine</td><td>01/15/2021 5:13 AM EDT</td><td></td><td> </td> 01/15/2021 05:13:46 AM [facility] BLOOD COUNT COMPLETE AUTO&AUTO DIFRNTL WBC COUNT <td>C BC AND DIFFERENTIAL</td><td>Routine</td><td>01/15/2021 3:58 AM EDT</td><td></td><td> </td> 01/15/2021 03:58:00 AM [facility] TROPONIN QUANTITATIVE <td>TROPONIN T</td><td>Timed </td><td>01/15/2021 3:58 AM EDT</td><td></td><td> </td> 01/15/2021 03:58:00 AM [facility] PHOSPHORUS INORGANIC <td>PHOSPHORUS LEVEL</td><td >Routine</td><td>01/15/2021 3:58 AM EDT</td><td></td><td> </td> 01/15/2021 03:58:00 AM [facility] MAGNESIUM <td>MAGNESIUM LEVEL</td><td> Routine</td><td>01/15/2021 3:58 AM EDT</td><td></td><td> </td> 01/15/2021 03:58:00 AM [facility] BASIC METABOLIC PANEL CALCIUM TOTAL <td>BASIC METABOLI C PANEL</td><td>Routine</td><td>01/15/2021 3:58 AM EDT</td><td></td><td> </td> 01/15/2021 03:58:00 AM [facility] EKG 12-LEAD - CMAXX REPORT <td>EKG 12-LEAD - CMAXX REPORT</td><td></td><td>01/14/2021 11:30 PM EDT</td><td></td><td></td> 01/14/2021 11:30:59 PM [facility] EKG 12-LEAD - CMAXX REPORT <td>EKG 12-LEAD - CMAXX REPORT</td><td></td><td>01/14/2021 11:30 PM EDT</td><td></td><td></td> 01/14/2021 11:30:59 PM [facility] EKG 12-LEAD <td>EKG 12-LEAD</td><td>Rout ine</td><td>01/14/2021 11:30 PM EDT</td><td></td><td> </td> 01/14/2021 11:30:59 PM [facility] GLUCOSE QUANTITATIVE BLOOD XCPT REAGENT STRIP <td>POCT GLUCOSE, DOCKED</td><td>Routine</td><td>01/14/2021 9:55 PM EDT</td><td></td><td> </td> 01/14/2021 09:55:00 PM [facility] CULTURE BACTERIAL BLOOD AEROBIC W/ID ISOLATES <td>BLOO D CULTURE</td><td>Routine</td><td>01/14/2021 9:48 PM EDT</td><td></td><td> </td> 01/14/2021 09:48:00 PM [facility] TROPONIN QUANTITATIVE <td>TROPONIN T</td><td>Timed </td><td>01/14/2021 9:48 PM EDT</td><td></td><td> </td> 01/14/2021 09:48:00 PM [facility] URNLS DIP STICK/TABLET REAGENT AUTO MICROSCOPY <td>URI NALYSIS WITH REFLEX URINE CULTURE</td><td>Routine</td><td>01/14/2021 9:27 PM EDT</td><td></td><td> </td> 01/14/2021 09:27:00 PM [facility] CULTURE BACTERIAL BLOOD AEROBIC W/ID ISOLATES <td>BLOO D CULTURE</td><td>Routine</td><td>01/14/2021 7:47 PM EDT</td><td></td><td> </td> 01/14/2021 07:47:00 PM [facility] GLUCOSE QUANTITATIVE BLOOD XCPT REAGENT STRIP <td>POCT GLUCOSE, DOCKED</td><td>Routine</td><td>01/14/2021 6:22 PM EDT</td><td></td><td> </td> 01/14/2021 06:22:00 PM [facility] HEPATITIS C ANTIBODY <td>HEPATITIS C ANTIBODY</td ><td>Routine</td><td>01/14/2021 5:55 PM EDT</td><td></td><td> </td> 01/14/2021 05:55:00 PM [facility] ANTINUCLEAR ANTIBODIES AMBIKA <td>AMBIKA</td><td>Routine</td ><td>01/14/2021 5:55 PM EDT</td><td></td><td> </td> 01/14/2021 05:55:00 PM [facility] TROPONIN QUANTITATIVE <td>TROPONIN T</td><td>Timed </td><td>01/14/2021 5:55 PM EDT</td><td></td><td> </td> 01/14/2021 05:55:00 PM [facility] PROTHROMBIN TIME <td>PROTIME INR</td><td>Rout ine</td><td>01/14/2021 1:28 PM EDT</td><td></td><td> </td> 01/14/2021 01:28:00 PM [facility] BLOOD TYPING ABO <td>TYPE AND SCREEN</td><td> STAT</td><td>01/14/2021 1:23 PM EDT</td><td></td><td> </td> 01/14/2021 01:23:00 PM [facility] XR CHEST FRONTAL ONLY [id number] <td>XR CHEST FRONTAL ONLY [id number]</td><td>STAT</td><td>01/14/2021 1:07 PM EDT</td><td></td><td> </td> 01/14/2021 01:07:00 PM [facility] TROPONIN QUANTITATIVE <td>POCT ISTAT TROPONIN</td> <td>Routine</td><td>01/14/2021 12:36 PM EDT</td><td></td><td> </td> 01/14/2021 12:36:00 PM [facility] BLOOD GASES ANY COMBINATION PH PCO2 PO2 CO2 HCO3 <td>P OCT ISTAT VBG/LAC</td><td>Routine</td><td>01/14/2021 12:35 PM EDT</td><td></td><td> </td> 01/14/2021 12:35:00 PM [facility] CONFIRMATORY TYPE <td>CONFIRMATORY TYPE</td><t d>Routine</td><td>01/14/2021 12:33 PM EDT</td><td></td><td> </td> 01/14/2021 12:33:00 PM [facility] PROCALCITONIN (PCT) <td>PROCALCITONIN</td><td>Ro utine</td><td>01/14/2021 12:33 PM EDT</td><td></td><td> </td> 01/14/2021 12:33:00 PM [facility] NATRIURETIC PEPTIDE <td>PROBNP</td><td>Routine</ td><td>01/14/2021 12:33 PM EDT</td><td></td><td> </td> 01/14/2021 12:33:00 PM [facility] BLOOD COUNT COMPLETE AUTO&AUTO DIFRNTL WBC COUNT <td>C BC AND DIFFERENTIAL</td><td>Routine</td><td>01/14/2021 12:33 PM EDT</td><td></td><td> </td> 01/14/2021 12:33:00 PM [facility] TROPONIN QUANTITATIVE <td>TROPONIN T</td><td>STAT< /td><td>01/14/2021 12:33 PM EDT</td><td></td><td> </td> 01/14/2021 12:33:00 PM [facility] MAGNESIUM <td>MAGNESIUM LEVEL</td><td> STAT</td><td>01/14/2021 12:33 PM EDT</td><td></td><td> </td> 01/14/2021 12:33:00 PM [facility] LIPASE <td>LIPASE LEVEL</td><td>STA T</td><td>01/14/2021 12:33 PM EDT</td><td></td><td> </td> 01/14/2021 12:33:00 PM [facility] HEMOGLOBIN GLYCOSYLATED A1C <td>HEMOGLOBIN A1C</td><td>Routine</td><td>01/14/2021 12:33 PM EDT</td><td></td><td> </td> 01/14/2021 12:33:00 PM [facility] COMPREHENSIVE METABOLIC PANEL <td>COMPREHENSIVE METABO LIC PANEL</td><td>STAT</td><td>01/14/2021 12:33 PM EDT</td><td></td><td> </td> 01/14/2021 12:33:00 PM [facility] EKG 12 LEAD (UNSOLICITED COMPUTER ORDER) <td>EKG 12 LE AD (UNSOLICITED COMPUTER ORDER)</td><td>Routine</td><td>01/14/2021 12:09 PM EDT</td><td></td><td></td> 01/14/2021 12:09:21 PM [facility] EKG 12-LEAD - CMAXX REPORT <td>EKG 12-LEAD - CMAXX REPORT</td><td></td><td>01/14/2021 12:09 PM EDT</td><td></td><td></td> 01/14/2021 12:09:21 PM [facility] EKG 12-LEAD - CMAXX REPORT <td>EKG 12-LEAD - CMAXX REPORT</td><td></td><td>01/14/2021 12:09 PM EDT</td><td></td><td></td> 01/14/2021 12:09:21 PM [facility] EKG 12-LEAD <td>EKG 12-LEAD</td><td>STAT </td><td>01/14/2021 12:09 PM EDT</td><td></td><td> </td> 01/14/2021 12:09:21 PM [facility] EKG 12-LEAD - CMAXX REPORT <td>EKG 12-LEAD - CMAXX REPORT</td><td></td><td>01/14/2021 12:09 PM EDT</td><td></td><td></td> 01/14/2021 12:09:00 PM [facility] US SOFT TISSUE HEAD & NECK REAL TIME IMGE [facility] US EXAM OF HEAD AND NECK 01/10/2021 12:00:00 AM [facility] PARING/CUTTING BENIGN HYPERKERATOTIC LESION 2-4 2020 12:00:00 AM EDT [facility] ([facility] DEBRIDEMENT NAIL ANY METHOD 6/> 01/02/2021 12:00:00 AM EDT [facility] ([facility] Av Fistula Artery-Vein 12/15/2020 12:00:00 AM EDT [facility] ([facility], ) ECG ROUTINE ECG W/LEAST 12 LDS W/I&R 12/04/2020 12:00: 00 AM EDT [facility] ([facility] MD) ECHO TTHRC R-T 2D W/WOM-MODE COMPL SPEC&COLR DOP 12/04 12:00:00 AM EDT [facility] ([facility] MD) OFFICE OUTPATIENT VISIT 25 MINUTES 12/04/2020 12:00:00 AM EDT [facility] ([facility]) OFFICE OUTPATIENT VISIT 15 MINUTES 11/09/2020 12:00:00 AM EST [facility] ([facility], ) PARING/CUTTING BENIGN HYPERKERATOTIC LESION 1 10/27/19 12:00:00 AM EST [facility] DEBRIDEMENT NAIL ANY METHOD 6/> 10/27/2020 12:00:00 AM EST [facility] ([facility] ECG ROUTINE ECG W/LEAST 12 LDS W/I&R 10/05/2020 12:00: 00 AM EST [facility] ([facility] MD) COLLECTION VENOUS BLOOD VENIPUNCTURE ROUTINE VENIPUNCTURE 12:00:00 AM [facility] HEMOGLOBIN GLYCOSYLATED A1C GLYCOSYLATED HEMOGLOBIN TEST 12:00:00 AM [facility] ALBUMIN URINE MICROALBUMIN QUANTIATIVE UR ALBUMIN QUANTITATI VE 09/20/2020 12:00:00 AM [facility] CREATININE OTHER SOURCE ASSAY OF URINE CREATININE 09/20/2020 12:00: 00 AM [facility] BASIC METABOLIC PANEL CALCIUM TOTAL METABOLIC PANEL TOTAL CA 09/20/2020 12:00:00 AM [facility] Amputation Toe MP JT 09/10/2020 12:00:00 AM EST [facility] ([facility] ECG ROUTINE ECG W/LEAST 12 LDS W/I&R 08/03/2020 12:00: 00 AM EST [facility] ([facility]) Amputation Toe MP JT 07/21/2020 12:00:00 AM EST [facility] ([facility] Aortography Abdominal & Bilat Iliofemoral LWR Extremity Cath 06/30/2020 12:00:00 AM EDT [facility] ([facility], ) DEBRIDEMENT SUBCUTANEOUS TISSUE 20 SQ CM/< 06/30/2020 12:00:00 AM EDT [facility] ([facility] DEBRIDEMENT SUBCUTANEOUS TISSUE 20 SQ CM/< 06/23/2020 12:00:00 AM EDT [facility] SIMPLE REPAIR SCALP/NECK/AX/GENIT/TRUNK 2.5CM/< RPR S/N/AX/G EN/TRNK 2.5CM/< 05/30/2020 12:00:00 AM [facility] EMERGENCY DEPARTMENT VISIT LOW/MODER SEVERITY EMERGENCY DEPT VISIT 05/30/2020 12:00:00 AM [facility] Pare Hyperkeratotic Lesion, 2-4 05/22/2020 12:00:00 AM [facility] Trim Nondystrophic Nails 05/22/2020 12:00:00 AM EDT [facility] ([facility]) Debridement Nails Any Method 1-5 05/22/2020 12:00:00 A M EDT [facility] ([facility]) Results ID Date Data Source [id number] 03/21/2021 12:20:00 PM [facility] Name Value Range Interpretation Code Description Data Tyra rce(s) Supporting Document(s) Sodium 142 mmol/L 136-145 Normal (applies to non-numeric resul ts) [facility] Potassium 3.5-5.1 Normal (applies to non-numeric resul ts) [facility] Chloride 106 mmol/L 98-107 Normal (applies to non-numeric resul ts) [facility] Carbon Dioxide CO2 21-32 Normal (applies to non-numer ic results) [facility] Anion Gap 5.0-16.0 Normal (applies to non-numeric resul ts) [facility] BUN 69 mg/dL 7-[address] [facility] DR STREETER read back critical information 03/21/21 1219 LAB.ADRIANNA Creatinine,Serum 0.7-1.2 Above high normal [facility] GFR 24 mL/min >60 Below low normal [facility] spital Glucose Level 188 mg/dL 60-99 Above high normal [facility] Reference range is only applicable when patient is fasting Note the following drug interference: Sulfasalazine Sulfapyridine Can see falsely depressed Can see falsely elevated result with up to 17% results with up to 11% decrease in measurement increase in measurement Recommend patients be collected for this test prior to administration of either drug. Calcium 8.5-10.1 Normal (applies to non-numeric resul ts) [facility] ID Date Data Source [id number] 03/21/2021 11:08:[address] [facility] Name Value Range Interpretation Code Description Data Tyra rce(s) Supporting Document(s) Hemoglobin A1c Above high normal [facility] Reference Range Normal: < 5.7% Pr ediabetes: 5.7-6.4% Diabetes: > 6.5% Estimated Avg Glucose 183 mg/dL 126-240 Normal (applies to non-numeric results) [facility] ID Date Data Source [id number] 03/21/2021 09:01:[address] [facility] Name Value Range Interpretation Code Description Data Tyra rce(s) Supporting Document(s) White Blood Count 3.5-10.5 Normal (applies to non-numeri c results) [facility] Red Blood Count 3.90-5.00 Below low normal [facility] Hemoglobin 12.0-15.5 Below low normal [facility] ospital Hematocrit 34.9-44.5 Below low normal [facility] Mean Corpuscular Volume 81.2-95.1 Normal (applies to non- numeric results) [facility] Mean Corpuscular Hgb 25.6-32.2 Normal (applies to non-num [place] results) [facility] Mean Corpuscular Hgb Conc 32.0-36.0 Normal (applies to no n-numeric results) [facility] Red Cell Distribution Width 11.9-15.5 Normal (appli es to non-numeric results) [facility] Platelet Count 172 x10 3/uL 150-450 Normal (applies to non-numeric results) [facility] Mean Platelet Volume 9.4-12.4 Normal (applies to non-num [place] results) [facility] Neutrophils% (Auto) 31.0-71.0 Normal (applies to non-nume yun results) [facility] Lymphocytes% (Auto) 20.0-55.0 Normal (applies to non-nume yun results) [facility] Monocytes% (Auto) 4.0-12.0 Normal (applies to non-numeri c results) [facility] Eosinophils% (Auto) 1.0-8.0 Normal (applies to non-nume yun results) [facility] Basophils% (Auto) 0.0-2.0 Normal (applies to non-numeri c results) [facility] Immature Granulocytes% (Auto) 0.0-2.0 Normal (juanita lies to non-numeric results) [facility] Neutrophils# (Auto) 1.50-6.20 Normal (applies to non-nume yun results) [facility] Lymphocytes# (Auto) 1.20-4.00 Normal (applies to non-nume yun results) [facility] Monocytes# (Auto) 0.00-0.90 Normal (applies to non-numeri c results) [facility] Eosinophils# (Auto) 0.00-0.50 Normal (applies to non-nume yun results) [facility] Basophils# (Auto) 0.00-0.20 Normal (applies to non-numeri c results) [facility] Immature Granulocytes# (Auto) 0.00-7.00 No rmal (applies to non-numeric results) [facility] ID Date Data Source [id number] 02/14/2021 02:42:00 PM EDT [facility] Name Value Range Interpretation Code Description Data Tyra rce(s) Supporting Document(s) Microscopic observation [Identifier] in Unspecified specimen by Non- gynecological cytology method Laboratory test result [facility] ([facility]) SPECIMEN: FNA Left thyroid Specimen received in Cytolyt (clear) SPECIMEN ADEQUACY: Satisfactory for evaluation CATEGORIZATION: Benign DESCRIPTIONS: Groups of follicular cells exhibitng hurthle cell changes noted. The background consists of scattered lymphocytes and rare macrophages. COMMENTS: 02/15/2021 - 909 Signed MARIE RIOS(ASCP) 02/15/2021 0911 (Prelim) Signed DORIAN TAI MD 02/15/2021 1053 ID Date Data Source [id number] 02/14/2021 02:41:00 PM EDT [facility] ([facility]) Name Value Range Interpretation Code Description Data Tyra rce(s) Supporting Document(s) Microscopic observation [Identifier] in Unspecified specimen by Non- gynecological cytology method Laboratory test result [facility] ([facility], ) SPECIMEN: FNA Right thyroid Specimen received in Cytolyt (clear) SPECIMEN ADEQUACY: Satisfactory for evaluation CATEGORIZATION: Benign DESCRIPTIONS: Few scattered groups of follicular cells noted in a background of scattered lymphocytes and debris. COMMENTS: 02/15/2021 - 918 Signed MARIE RIOS(ASCP) 02/15/2021 09 (Prelim) Signed DORIAN TAI MD 02/15/2021 1053 ID Date Data Source [id number] 02/13/2021 12:07:25 PM EDT [facility] NT INFORMATIONPatient MRN Name Date of Age Gend*PT [id number] Oxana Clancy 1950 70 years F IPPT Location Admission Date/Time Visit ID Attending [id number] 02/07/21 1503 --- --- EPI ID CSN Admitting Provider [id number] ---Attestation signed by Jo Molina MD at 02/13/2021 12:07 PMSignature: LEA Bensonate: February 13, 2021Time: 12:07 PM --Cardiology Discharge SummaryPatient Name: Oxana Clancy of : 1950 Age 70 yearsPrimary Physician: ANDRE STREETER DO PCP Omzxhdtqn Date: 02/07/2021 Discharge Date: 02/11/2021he will be discharged from [facility] to [facility] Diagnoses:Principal Problem: Non-ST elevation (NSTEMI) myocardial infarction [...] needed for painTrelegy Ellipta 100-62.5-25 MCGGeneric drug: Tlvgkpwtnoe-Mluzsmjrh-Ypobrg Inhale 1 puff dailyXarelto 15 MG TabsGeneric drug: rivaroxabanNotes to patient: Resume Friday02/14/21 Take 15 mg by mouth dailySTOP taking these medicationsmetolazone 2.5 MG tabletCommonly known as: ZAROXOLYNWhere to Get Your MedicationsThese medications were sent to [facility] [address] [place] [address] [id number] [address], [place] [facility] [id number] amLODIPine 5 MG tablet aspirin 81 MG EC tablet carvedilol 12.5 MG tablet clopidogrel 75 MG tablet nitroglycerin 0.4 MG SL tabletFollow Up Instructions:Dr. Minor and Dr. Quintanilla [facility] Course:This is a 70-year-old female with a PMH including PAD s/p angioplasty, aorticstenosis s/p bioprosthetic #23 Magna AVR, COPD O2 dependent, PATRICK,hyperlipidemia, hypertension, DM 2, PAF,CKD stage III and CAD status post CABGx2 (ABAD to the LAD and vein graft of the ABAD to the PDA) and ALEX to the CX.She presented to [facility]. She ruled in for a NSTEMI. [...] 107* 117*Results from last 7 daysLab Units [id number] I ng/mL 15.00*Lab ResultsComponent Value Date PROBNP 10,370 (H) 02/07/2021 PROBNP 6,728 (H) 03/23/2020 PROBNP 5,524 06/03/2019Results Procedure Component Value Units Date/Time COVID/FLU AB/RSV PCR [[id number]] Collected: 02/07/21 2240 Order Status: Completed Specimen: Swab from Nasopharyngeal Updated: SPECIMEN DESCRIPTION NASOPHARYNGEAL Influenza A NEGATIVE Influenza B NEGATIVE RSV NEGATIVE Comment SEE NOTES Comment: SEE NOTE:THE U.S. FDA HAS MADE THIS TEST AVAILABLEUNDER AN EMERGENCY USE AUTHORIZATION(EUA) FOR THE DETECTION AND/OR DIAGNOSISOF THE VIRUS THAT CAUSES COVID-19.PERFORMED AT [address] [place] [address] COVID19 RESULT NOT DETECTED Comment: THIS ASSAY AMPLIFIES AND DETECTSTHE TARGET RNA USING REAL-TIME PCR.TESTING PERFORMED ON [employer] GENEXPERTNEGATIVE 2019_NCOV RT-PCR RESULTS DONOT PRECLUDE 2019_NCOV [...] rce(s) Supporting Document(s) ID Date Data Source [id number] 02/11/2021 01:56:49 PM EDT [facility] Name Value Range Interpretation Code Description Data Tyra rce(s) Supporting Document(s) POC NOVA GLU 245 mg/dL (70-99) H [facility] ID Date Data Source [id number] 02/11/2021 09:16:40 AM EDT [facility] Name Value Range Interpretation Code Description Data Tyra rce(s) Supporting Document(s) POC NOVA GLU 197 mg/dL (70-99) H [facility] ID Date Data Source [id number] 02/11/2021 07:37:34 AM EDT [facility] Name Value Range Interpretation Code Description Data Tyra rce(s) Supporting Document(s) SODIUM 142 mmol/L (136-145) [facility] POTASSIUM 3.9 mmol/L (3.6-5.2) [facility] CHLORIDE 107 mmol/L (100-108) [facility] CO2 26 mmol/L (22-31) [facility] ANION GAP 9 mmol/L (7-16) [facility] UREA NITROGEN 52 mg/dL (7-24) H [facility] CREATININE 2.43 mg/dL (0.60-1.00) H [facility] BUN/CREAT RATIO 21.4 RATIO (10.0-20.0) H [facility] GLUCOSE 190 mg/dL (70-99) H [facility] CALCIUM 8.9 mg/dL (8.4-10.2) [facility] GFR 20 ml/min/1.73m2 (>59) L [facility] GFR ([facility] AM) 24 ml/min/1.73m2 (>59) L [facility] GFR INTERPRETATION [facility] --NORMAL KIDNEY FUNCTION OR MILD DISEASE - GFR >OR= 60CHRONIC KIDNEY DISEASE - GFR 15 - 59RENAL FAILURE - GFR <15 Est. GFR calculation based on the MDRDstudy equation, which assumes a steadystate for creatinine. Est. GFR should notbe used for medication dosing. ID Date Data Source [id number] 02/11/2021 07:20:37 AM EDT [facility] Name Value Range Interpretation Code Description Data Tyra rce(s) Supporting Document(s) WBC 9.2 10*3/uL (4.1-11.0) [facility] [place] RBC 3.56 10*6/uL (4.00-5.40) L [facility] HGB 10.5 g/dL (12.0-16.0) L [facility] HCT 30.1 % (36.0-47.0) L [facility] PATIENT TRANSFUSED MCV 84.6 fL (80.0-95.0) [facility] MCH 29.6 pg (27.0-32.0) [facility] MCHC 35.0 g/dL (32.0-36.0) [facility] RDW 15.4 % (10.5-14.5) H [facility] PLT 104 10*3/uL (150-450) L [facility] MPV 8.5 fL (7.1-10.7) [facility] ID Date Data Source [id number] 02/10/2021 09:26:26 PM EDT [facility] Name Value Range Interpretation Code Description Data Tyra rce(s) Supporting Document(s) POC NOVA GLU 238 mg/dL (70-99) H [facility] [place] [facility] ID Date Data Source [id number] 02/10/2021 07:00:49 PM EDT [facility] Name Value Range Interpretation Code Description Data Tyra rce(s) Supporting Document(s) POC NOVA GLU 226 mg/dL (70-99) H [facility] [place] [facility] ID Date Data Source [id number] 02/11/2021 01:00:46 AM EDT [facility] SPEC EXP DATE 02/13/2021ATI ENT ABO/Rh A POSITIVEANTIBODY SCREEN NEGATIVETESTING SITE PERFORMED AT [address] [place] [address] [facility] 71947DMOTR B[facility] COMMENT BLOOD TYPE CONFIRMED.UNIT NUMBER [id number] COMPONENT TYPE LEUKOPOOR RED CELLSUNIT DIVISION 00STATUS OF UNIT TRANSFUSEDTRANSFUSION STATUS OK TO TRANSFUSECROSSMATCH RESULT COMPATIBLEUNIT NUMBER [id number] COMPONENT TYPE LEUKOPOOR RED CELLSUNIT DIVISION 00STATUS OF UNIT TRANS FUSEDTRANSFUSION STATUS OK TO TRANSFUSECROSSMATCH RESULT COMPATIBLE Name Value Range Interpretation Code Description Data Tyra rce(s) Supporting Document(s) TYPE AND SCREEN [facility] ID Date Data Source [id number] 02/10/2021 02:05:14 PM EDT [facility] Name Value Range Interpretation Code Description Data Tyra rce(s) Supporting Document(s) POC NOVA GLU 151 mg/dL (70-99) H [facility] [place] [facility] ID Date Data Source [id number] 02/10/2021 04:29:57 PM EDT [facility] Name Value Range Interpretation Code Description Data Tyra rce(s) Supporting Document(s) STOOL OCCULT BLOOD (NEG) [facility] ID Date Data Source [id number] 02/10/2021 11:08:08 AM EDT [address] [address]Oxyapjv Name: OXANA COLBYYELENADOB: 1950Sex: FOrdering Provider: JANET Mcginnis Prov: JANET DURANTRefdimitry Provider: Procedure Performed: US COLOR DOPPLER LOWER EXTREMITY ARTERIES LIMITED RIGHTExam Date: 02/10/2021 11:01MRN: [id number] Number: [id number] Class: InpatientAccount #: [id number] for Exam: right femoral cath site R/O pseudoaneurysm.Technique: Real time sonographic images were obtained.Comparison: NoneFindings: No pseudoaneurysm or hematoma seen in area of concern in the right groin. Patent vasculature.IMPRESSION: No pseudoaneurysm or hematoma in right groin.Report electronically signed by: Heavenly Flowers On 02/10/2021 11:08 AMWorkstation ID: [id number] Name Value Range Interpretation Code Description Data Tyra rce(s) Supporting Document(s) ID Date Data Source [id number] 02/12/2021 09:12:09 AM EDT [facility] Name Value Range Interpretation Code Description Data Tyra rce(s) Supporting Document(s) IRON,TOTAL @ 48 ug/dL (35-150) [facility] UIBC @ 239 ug/dL (130-375) [facility] TIBC @ 287 ug/dL (250-450) [facility] % SATURATION 17 % (12-50) [facility] ID Date Data Source [id number] 02/10/2021 12:15:31 PM EDT [facility] Name Value Range Interpretation Code Description Data Tyra rce(s) Supporting Document(s) WBC 8.3 10*3/uL (4.1-11.0) [facility] RBC 2.49 10*6/uL (4.00-5.40) L [facility] HGB 7.2 g/dL (12.0-16.0) L [facility] HCT 20.7 % (36.0-47.0) L [facility] MCV 83.2 fL (80.0-95.0) [facility] MCH 29.0 pg (27.0-32.0) [facility] MCHC 34.9 g/dL (32.0-36.0) [facility] RDW 15.3 % (10.5-14.5) H [facility] PLT 107 10*3/uL (150-450) L [facility] MPV 9.1 fL (7.1-10.7) [facility] ID Date Data Source [id number] 02/10/2021 12:08:13 PM EDT [facility] Name Value Range Interpretation Code Description Data Tyra rce(s) Supporting Document(s) SODIUM 141 mmol/L (136-145) [facility] POTASSIUM 4.0 mmol/L (3.6-5.2) [facility] CHLORIDE 106 mmol/L (100-108) [facility] CO2 29 mmol/L (22-31) [facility] ANION GAP 6 mmol/L (7-16) L [facility] UREA NITROGEN 63 mg/dL (7-24) H [facility] CREATININE 2.61 mg/dL (0.60-1.00) H [facility] BUN/CREAT RATIO 24.1 RATIO (10.0-20.0) H [facility] GLUCOSE 152 mg/dL (70-99) H [facility] CALCIUM 8.8 mg/dL (8.4-10.2) [facility] GFR 18 ml/min/1.73m2 (>59) L [facility] GFR ( AMER) 22 ml/min/1.73m2 (>59) L [facility] GFR INTERPRETATION [facility] --NORMAL KIDNEY FUNCTION OR MILD DISEASE - GFR >OR= 60CHRONIC KIDNEY DISEASE - GFR 15 - 59RENAL FAILURE - GFR <15 Est. GFR calculation based on the MDRDstudy equation, which assumes a steadystate for creatinine. Est. GFR should notbe used for medication dosing. ID Date Data Source [id number] 02/10/2021 09:38:07 AM EDT [facility] Name Value Range Interpretation Code Description Data Tyra rce(s) Supporting Document(s) POC NOVA GLU 159 mg/dL (70-99) H [facility] [place] [facility] ID Date Data Source [id number] 02/09/2021 10:20:23 PM EDT [facility] Name Value Range Interpretation Code Description Data Tyra rce(s) Supporting Document(s) POC NOVA GLU 148 mg/dL (70-99) H [facility] ID Date Data Source [id number] 02/09/2021 07:13:20 PM EDT [facility] Name Value Range Interpretation Code Description Data Tyra rce(s) Supporting Document(s) POC NOVA GLU 239 mg/dL (70-99) H [facility] ID Date Data Source [id number] 02/09/2021 03:41:48 PM EDT [facility] Name Value Range Interpretation Code Description Data Tyra rce(s) Supporting Document(s) POC NOVA GLU 215 mg/dL (70-99) H [facility] ID Date Data Source [id number] 02/09/2021 09:12:36 AM EDT [facility] Name Value Range Interpretation Code Description Data Tyra rce(s) Supporting Document(s) POC NOVA GLU 130 mg/dL (70-99) H [facility] [place] [facility] ID Date Data Source [id number] 02/09/2021 09:48:02 AM EDT [facility] Name Value Range Interpretation Code Description Data Tyra rce(s) Supporting Document(s) CKMB 3.4 ng/mL (0.0-5.0) [facility] CKMB RELATIVE INDEX 3.1 {index_val} (0.0-4.0) [facility] ID Date Data Source [id number] 02/09/2021 09:01:34 AM EDT [facility] Name Value Range Interpretation Code Description Data Tyra rce(s) Supporting Document(s) CK 111 U/L (26-192) [facility] ID Date Data Source [id number] 02/09/2021 09:01:34 AM EDT [facility] Name Value Range Interpretation Code Description Data Tyra rce(s) Supporting Document(s) SODIUM 143 mmol/L (136-145) [facility] POTASSIUM 3.4 mmol/L (3.6-5.2) L [facility] CHLORIDE 107 mmol/L (100-108) [facility] CO2 27 mmol/L (22-31) [facility] ANION GAP 9 mmol/L (7-16) [facility] UREA NITROGEN 78 mg/dL (7-24) HH [facility] CONSISTENT WITH PREVIOUS RESULTS CREATININE 3.22 mg/dL (0.60-1.00) H [facility] BUN/CREAT RATIO 24.2 RATIO (10.0-20.0) H [facility] GLUCOSE 131 mg/dL (70-99) H [facility] CALCIUM 8.5 mg/dL (8.4-10.2) [facility] GFR 14 ml/min/1.73m2 (>59) L [facility] GFR ( AMER) 17 ml/min/1.73m2 (>59) L [facility] GFR INTERPRETATION [facility] --NORMAL KIDNEY FUNCTION OR MILD DISEASE - GFR >OR= 60CHRONIC KIDNEY DISEASE - GFR 15 - 59RENAL FAILURE - GFR <15 Est. GFR calculation based on the MDRDstudy equation, which assumes a steadystate for creatinine. Est. GFR should notbe used for medication dosing. ID Date Data Source [id number] 02/09/2021 08:15:59 AM EDT [facility] Name Value Range Interpretation Code Description Data Tyra rce(s) Supporting Document(s) WBC 8.3 10*3/uL (4.1-11.0) [facility] [place] RBC 2.83 10*6/uL (4.00-5.40) L [facility] HGB 8.1 g/dL (12.0-16.0) L [facility] HCT 23.6 % (36.0-47.0) L [facility] MCV 83.6 fL (80.0-95.0) [facility] MCH 28.6 pg (27.0-32.0) [facility] MCHC 34.3 g/dL (32.0-36.0) [facility] RDW 15.5 % (10.5-14.5) H [facility] PLT 117 10*3/uL (150-450) L [facility] MPV 8.8 fL (7.1-10.7) [facility] ID Date Data Source [id number] 02/09/2021 06:47:28 AM EDT [facility] Name Value Range Interpretation Code Description Data Tyra rce(s) Supporting Document(s) EKG [facility] JUXRKm5yQwSQQoPqb4KuIaCtVDLrAD1lmry6R9S3fCJcV1KgpHWhg7cjI7YeF5BoZURfQKUDEF3NdUWv jb2 [file] E1mJV17VndCrG3T8/4i4X6D2+21ns0HRP7/fd40B/++/PK/avCL+B7/MblxIdXlKvAG/hNO+3gd+A3 8Df9Shgu4kf/deTh0te6z2FYfy6KhE52744+W7l/tRK/wI/25a4L8EPhVbEt4H2/cNcEa6g7ln4n35Nh gO//15r9G8c20ti4m9ubbP/tgi9mhAd4ns27c7VgON 6A7/26lfZVyTeUi/YuhxwHfoN/A4/0RjA10oiJC4ptoF/wP7z9GKbC9DV4Y8foL+ZH5cAaPo/0Uu3wLS xfLdhXS/D3Jn5LiB/YV0v6/7u0/38b7kkBil+nfVVptFcn+ASjrznXfTjmr9xgtvw61AYFrNCJ6m06ip qN/meru6pJCYud01Zbh/t2kCsWj4T+St0avm/aV5UX 6CS850LtU958pJ7se3TtqNLxrbaIESeYA7d0Gjgno4p/qPqz93Lmah4M+bcFAmowo9UgxA+bFIjmY5RA /Y3k6fX+5b4lh6z/Vy2dd3tGiEp61jds61XOO+//Gcno9ZyzTmDc9xivG526m1adg/gv0+BSWZ1ZLWIr Xk47BYur18t1NNdcrg0549MGp/jIjZrZMFRjX7lO9Y btk29Jk+G4+7a6wCZ441Jx/9l5EjRW+XWcx00k+lw1Iw4K++zc1d6J1w12Zh+2N/Hyk4qRb4tLe6NOu0 ti292XJ/1e2lv/p/1HK+2r/BInD12Wb+9703q/fZt8cqM1jX/5wOyaF6K3w9ydab/WV3RUharMD4Fn+H t9JJ+R8409KLinOd8U0uY+Q36vj+Tr/csnE2hhV6b/ BvAD/AR1dOn9+cyM8esO/AJ+ffqXtK++uMh2NKfn/5Gwj8Ah/cUG4O4z/h+X98xj/tKj9jGcazqhYtpj H2fqP1thZAk9TLJkrO35lsOb7/ubT5P/116J+WVt9aqY+uJ9wbUlaK/+Vt+R/yN1FlcLozbUx4AvRyq3 4ess676r+kERj6J84oaAwnxdx5uyd/kYXdO2x3/SP3 8CjQvIr8e4X3wa064irm8cL90/bFzS++OJcn/8ahlvSRi9shpMJ/T+/lWW6V/9K2/4jyz5f+8sjm2Lx/ PK/dCQ54gKjl+1V7/k/8ZJO45aL8rk/Y2d0hTU6mmySK/opAmtk9I6lK+k0A6L0W7bY1Pbx/H1t43814 /ZxcnkSxkWJ8te9N5NFEjnTEpt/RxJ+6de0Tt59Lf0 hx2PeY2ycF+VqcUD2f4kqenT/rQGoA7P0RQ/rl5O1Qm1EAxg1BxF+kjxJ0W3Mum2apC+VhUL3m022tY9 MCmEhKatxlijCdWt6jCq1AZLqACpZwyUz+9vSNpXxbOAX+FA6EK1GrlCfyO/Ae/Tp84a0wzcOwTC7gUN vhLv/RzxD/woijKCs61EweEK7hkl2yD+9neLK/gVeO v6e+0ipLo8R0q3++Om85i7d2mt9cqMv/99witSTto11QCR3LsmfHi/umnwL+DXsw8l/YM5t++5T2Ld4Z rsT4F/UNI/mPPebn+ZbAf/Yn94x5z+wLc/NR88luW0lmmZ2J+A6Q8XevMg/uH5A3RF4G1/jrKKCt1LYD U+2pv/mvQPSuId+PT/ZnpDzgb+AN/o8kSJjk309/bq 1+1V+Ae1/SGq55FsjFm8kuC4yPl3+lqdtrSWl3Lg8Ixz2z82nq/r1/t1+vX+oY11O6vcE1Ph+1eK/SvF /pWO3q/LMxGw78PDPe/j1QNnAs4XM+/r8Xq3ZSkdE0M6/ukJzoo4LDl5/Qa9uJ7Ddum+general practitioner+OjrafdbZ/ QXH+Rwu2TdG01/3/oyvteBFM8tA/Fh3Kz8MGjcxzqk l/Uxa85wyq/8igEeoIMJ3+jfps8B/gT/PH/tVLA5/2xpfpbu/y52Ubtf2zZ2iMxQbpJ/evKq+Cv+0NXQ Z+A78D7+Ivra1G1asHXEw877oFUked6R0uxJZ/ROIIw2T/eZ4QK3A2+OdI5Ju2rttpnJA/S9sbCv+gSu /nqLQ/VmZ9rtL+QS3/1Wu885c6dfA8Xnz/nrD5cwA/ dql2KpWrTdF2FV9LD+Uu4mF0kN3/qeb7Qypz7C/wvd+dlmpQ4o5WT7LY2YJa5AU+61bS0sLi1jqXmhwy otb+CtNBRFPriKd7moT+UtvAH/D0ehLxwxA1G+qSz316B+diJ0INS+Fito+tr2hMr5IC3TF9WT+DRXnfI x/fF/pU6vi/8gwr/cE68999/9O35XkIp7P30tCG/qB v9eaM/b7QX/kFN/6BUusfRRn/uHzn2P3haW+re4O/2Oa65MvUm/hQ97V/Qg/Q9WZ8Cgc8i/6+eCfwCfv O6zDUhA9nomnq2CB/EQTfEC2y6MUGiiHisCFpkni2kf/lo5bz23mn5c/Z1e+3r/Oz5MpQD+IL5NC0Lc+ XVfQhjw0Zpsa/Ab+G45Fps0ca0F6vdzB+I0v2HlaE4 nhWg3O6A/Av8Av7+vjYU+DudAN4j+C3K7MuWqKGLep8nr+8wHey1yk80lH+32et9m+0/stn+BZvtXzD4 U493k7m3pD/gF+QR2usZQ+WF569B+Q5+tHeivfMAj/382N78JO/9gy6xZ9743s4UZKdm8R4JVa3U/kFb lpCM9kK0vu1xw2LirC/6fj8f80nu+dlW/57Mfk50hI +3On/wgz7bBs1k4edsa/nslGH7ZRKdH1g8+tdEgFfw5/p5qSkiq31n6b5ZS4u7598w7WyR91qV+8q099 iH180eDs92wco+NhP0h4faDsRfUX6HylEokNlZKit6zHH0ix5jOB/7VWtqu3kVxLJ+Yrn23blD0PWgXK y34rkxg5Yyx01n9/622QB+AN/+OIM9a8qrtDYt4NQr a70+dhduNgFikBY5UeyX5ulbbNBo2byviCLh5q+M7RiInC1CUVWzt7/hDVOJ1N/y9i+YY/zi/JXh/JU5 5ivH/1bfIotpE8x35WT+Qz39/WfN8T/yDTz+O085xsnboXpc5t9/aTh/QsnLv4jw2PCpyUT8GawKpM3X nN14gpqYGyPkN+32/9pu/5Ht9h/C5dYvtG8f+0z5By i2y9pccnB/LGcEnG3t2pw7TggOMTdsiHeNSRpjtDf32tqT9d67DnxJst2tzA8tIK/N4vm1N++tWNhXeW 0jkjFEoOG0QqsshLI/3k9J/f75r2wu3Ntcfplej4p88xtWaBq+nUfrIqfO0fRJ/8oH6LDjK/iqY2DigJ H095UabL/Ic71vVTX05EmJ+vGwr/Yorlx9uiPLPoiW WWL95mt+KA/2KtaLx93TXKk475/7f/5u2w60z/++h78c4feu7p/v1znOt/vo8/nn7pLEsO2LKqy09f04 HxP8vV/no88/+xDg+zy/I2M0Ri5S/D7/5SQ8H880gQvT7+49IvrSxm9/8bP5B857/RSffR/C90v44Xvz 9/5zQ7X2co2SlQ+b0tesFajN8dQ05P4bEiTB8ab7To C2i7rmAc+3z0q3/PF5HvH1t7oZreJ+421y77d1be00jk4Iwc1yD33mQxTvyMpylY6M6N4u56X3J5/Hce n9Z5e+j+QQ7agDVv8R+1fWpNG2EfbwsL/g+wq+r+D7ikG+Qb5/SEP+Bn/vt7v0/QUP+8gL1xvFBAgapV vhYV/lXQbXvr/g2v4FD/zg3aV2Y6+0N+s0pF6cVkWD 9t70D2+PxufTdiEpH443wIv4WNpA1il8of42+ZL1zXfaGw/04fRKMe7/7KuLj/buSmunF/GPqBN5rWvW VxGnmYb0OeCp+A3+aG+33xKnV6e9e8ohH0k108rh4/m58k8zi/P+FW79MO2Q+AU8vq/3/SPP+6Pf3l7y cX/Qxt8orlfL2tkzNcBW6G8M++yMotZ577b49joyYu G0r24a+Al8+bpzxT7owg/z3im/j5h1dzx2qi+w894e3U6XO/C9f+V7Q84G/gDf60E/7e/20/akY//KsX /e1M6n0X089r/8LOAFeAG+7Wc/bT/7MeANeAfegd+QvyH/gL/t5/21/by/Xi/sr9f7++v9nP21/by/tp 839q/4p1QZ2Wg+5P4U+G4x388Ew0W45Z88J/gN/gN8 709u+Ac3/IMb/aO1fk58hw+1794qyZZ3r7BDLAKmch+/R++376GQY+C31//25QeKmblgF5H80J/w9/2y Pfv+oy6z2L3l25MacM14/X2bo4v2Iq5WC2CV6NI/k53Ch3CtkIwyl08/8X2fbs++K2uoLy29/2r7ea++ W1cVhvps3BXL62331kteZdPg9LiZa/t55/5F6WyKMk Hk2Ql8pyRZ1iXCm0XxHwpjc/aFCay09Q+6aeAn+CfwC/vY2aW8WK1dUhTiRFXY/G477nnge8M8um+b+1 fJn/sZI61bNhdmhW+ivdrnVbaivYr+aP1L7hS9g5qoG3rpp/7BwtuHNORj/KZ/sPAb/CjwFipf2rzt+r 2OIf1a6Uq7oO8i3/o1mL4Do1lwx40g02j5QaKPj+Af 6Fghaic2J550z6ss3Qn6gicJMJs81/o+7Da01/f09vy02/u+1fa+J8dv7tHB/gQ60nj2VN/Sj97ygX/2 4vzVdnxfd+V14KjtP+Ywlr310kmET4rEzzc72gy5/u/bfW3Ms5Zx5K1li/t+2ey3ij7H8o9/3fz35X7d bm+0d6O9G/+rol387U5X45qK2Ppo2s/utK/tOV8582 [file] Lklb5b1493QH25MKtjH73q6M/iR8Dm2BM+Sp3h8NY6 k5lwi7OcmwjPMgzgYXs9tC6J40dap7e8q/kPo8wmh5siHpXPm65jv6yg/P72wEvd/zjDeSb+Wdb7laoG de2/euva/KfTdfo+81w442L09iavi//msJ/H0wV//85kGWeccb+Xxfe+/37Gde//jbC77y+TOemWV+4x 2/t+Bc/6u7a8BI6jdst0fuhs4GdxuRax4vDNUos547 3h8JEcmQt2hetpsWaamHxb5bmpjEd+XFBFjfC92rUOwtiusK/WjQbeuEGNgfq3s8Glf+fbDD/pwD3+fa /qdSi65c92C9E8/v3Z9bCZhcm+2ZBNajt4/x6cJn7wMbtl76tvVl1U1+j0pe/+775HN/dyk9QFOgq1tx PKr3+Sztx77Z7Akd/IdIilzaYnXA9v8/aN7rHe+Y2e w0yKMkxeomdOsOrC0+nPmsK6/tu/Yzn3M++RwAkN2or1H7iaq/767gn/myv3ZMq8+O99cn+QX6wQhJZ+ Cf+eii0S279irJV88dqZbO2wy49npkFhZV2Nw1/6IW675bKFhWhgx9O+9SUvzT2i7a5bZ8A8UhgQnEW0 DI8KuUD31mg6Zv8wgS7h7CbFeFG/DxfDfGuzHePcE3 0N97iHxxnRkNN+42bKN5tGgyId/6eadAL9Mu3iVYbUw8pW+gyMfXp+tn7askZ2T/UX6Cb+Ab+To7bwe4 +hEcQ9lF+Po86cyw3f2A9844SvTJxUGob3uDAuRBe+ezygB/mmyC15K+t9773Jxp5+801GTd5pK2tCK2 AH+j/P6+s6r9/jU3m2cqVPJvX75gN9vg740ZlO+KP7 4vyyY7gdm3/LLq00p3Pp/qzbu3Hd85pYNs1534vVL+2dj8Na9tqg+8Bv/Dj4AX5zq1zyav5iq5GZ6A/5 53/PNuJ+U1yg/px8dEzHbIy1Oeh33+mxf32bVot/V3R43emyd+rcHXzS2eDvUGrou+0oLv7q94KtL2jz AI15t1Z0Mp++ic9aSL5/84xTx5onlboU1kwpJF6mD1 4uXw4rHuAs3cq057tIH+XuC/109sVIAY81K9s+yr8vod+9fg30D2i0uf0Uflq+yryxfwpftj+jW451qF 5QfKz8/eO+RlP652nrvd5uGiakdoz7WPU6wgC4cy6Ts+pq4tu1199y/gckz9A0uG81f4Xb/Bgi7509g3 /Re7apRixI/z+M9rc6mqA0P5dy/Esnt57dmQ2A2t++ ryHfwzXk1+cg712a/Kjqj8jyajjZ6a75/j/YADW1HBrh+xry5/hGsAg8Dk5PasUC+eFX0btWkPIx6xF7 Zh7Izwiq+qzLGvqsyxr+48yAzK5L873uKrEm249dOA4m/gT/CTtTDg8Dc7d330+Ly6kqNH1KhcGzsG88 jj92l0JCg+sa/qXse+fcHOfhx0Pgox5oup/Fq56y73 UH6i/ER5Ax/og9Fo3Eie45x38Vio1u0sR8qZ+k262zLfv/m7wdlXhG3mBqXqbLiBG42AgxeXhHcm/RNe 8QClT6mc1++ScgishIpoVX1eo9Y+j/cIPWk5Tk1JfQ/gb/B3t5/34eHYZDbfp2t9RRMCfnnegICvtqKI 5Y+1Dgyp1Lnsea/9LLM+e4ptjSB0YcwtnE09+/93pH 1InYxU1j8o0bJadIurB9xpr88gxWDc8nRVcZXFjylcq/upE/yJ+xr4GG/qX2BobL+D7+AH+h/ozwZ/d/ mB8eb+VcD1WY2at4lmfMf8vy4WI/oI2ybfe53q7F+sFlm74Cum/6rKO/iI83W8F7R9dy3i6D1OkF8L10 TznW0/u6f729eVQ/txqmkeP3S/rbjOV0S9nB/gL5Rf 6ivD7m1pCB5BGfb7ffo82Fui217xj4P9fiwfar1txUfOEozFo/V+7Al7+PivtOiz1qQ/1foBfYSTk8sL k6tyMpE9Gdn/K608CP4+Megw9z8ngH9Qzub1hdTf13E1uI3J46kOox/0B+/vwnq1+ns0cv/eYgd8dUx1 NFZ/f4fje+P1CtC0vu+/7/JI++n4Z8q875nvjEOrI/ eL7Ux7wtHO3tdxC0z2x8cu2Wd5kGAoOR/2ymX2t3jwa8DPkvf3TdC+EN1retW9afH4CpM6R+tVYL3K/a a6drX9owG+yBFIw4P26DXmhyTY4qvpRoV+VaR58fNVgU25oclc173/ijt3btu11j/cXMo8fnvP+bwxnz e+Ikqh35g3vHX+b6zPG+tm4dl6uzTz033p8f90+x7z 6fVqPg/7Zp8233T65s7bn/+qrgfKt/0sRoQ0tKGJ/V1l6rKUQ0c//WXzcbQTKB/gf3Uhx7oZxAqe9JEt 3eG9zf0RcVo8thu297lZCaapcy/RTj/jOm52bpjyK/r8Dd87v3Evu/eenrCD+h79NWi1w1JGWi7H0+/6 2Fd+3vcTcvCzV+Rcv+ONvNexr/i9Ey9rJbFaPzDHH+ M0y7z+FPEs8/pTtNp//Sk/SzKvX7+Xpw454fQAVAQ5yfm9bay34/GdaFoCe4MB91Od0s5o5zhfuxkm7X tp9sgjDA/UtD3mD6gBR5puSb509hsm9+KCE4sQ3/q82bdK3qy8kYVw9/y9Hi8/23/tbfx43WiA0/9y9i 1OUFTGrC2g9+z8GAvv20Bb88ZkXRm38Tdl7v/z1dT/ sa/Zx1mzkBksc66mp99gjoulkNE2yslQe1Lhxom5jj7i+zxEuSNp2bnJS35k4+ngr14sY5h5Z6Xh/8Kc 7V+X89YvBR/QTu4/W15bX5/4N59U1na9joLQayZ78a7h6ozt7UdpFznki27K/t9p7f+dNlF+gm8ob+Av 2Lt6lnUyChS5KCL+o53d/LSvsvzC+osp4y2Zdons2w BbT9EiVcg2QV4B++1cYdwfD5Kw4fyTyZ+whlxG1fJ7V9O99NsO7T+Y8A/O9A/ea/AF/PanTG9/ykz/YM 7/9A8WH/M5/YNVt/6q3c5vTkeN6ol6dzFt/AA/0B+MN/3JuS8Gx/kHk9/+Radames/1In7g911Nyp0dpQ+wV n+mbhl1rB0hyRISsuFmjb+5nPg+xv4/qZ9da/Bx/c3 8P1N+yq/nCro830eFEuoR4WE/b4zljre7Se4y97sad24w/u7uXs/Z2L/amL/amL/hq95l5cC/febu9t+ nrl/sxy39c8Zm9g/gh92n881ntt/Uyiyc6PRUjfaL1Gy20/Mzd1bow3K+T/+BL/2Kzqvy6+D3/4Uy/2r gXnb0z7DW5+zfIB/xnu+O+cEf+6tasR179tda0OIaL cb4ZdJVW/IObz/ATs25A83h5WBv8UY8o/X6U/L5a9QSnn9+9quH+Sc2T+b9Oca/ONPudd2/CPvvC5DKa Bvf4pJ+7CSSf8pdsRqoi0pra1qfu7t/+iY5W0BZlsY5nwa/Ot7d8QM4q+6fAP/gRvv23XX/2A+l/QP5j PV9pdZ+gdzPqR/1D97aUz/NM6l5D7Vj/9ott3WcWRg F1RjJe1H0tfYrG+ToibcHAtBh9aZeli/0M4C3/w1Se9nge/pHyx+oP3d7+nA+nxfv5MN3F+66R/M8se+ iakLT2GKHZ33l+ZE+pDnKUoJm0K/wHe0j/Ee++q7Bh/ntSklBll0jE/oV64hxMmaMfruQ0XUhH9tOzJC hdUj2H6qh3mT0iTWd/o1tISzDLcup1w0/8hW+48s/Y CXb8zRN2l0Qypfu9K7B97a38gu3O+81+Ab+Mi2QbboT4E8qNyrI/pD2HBw6Y4Fibk+juX+VV1Ll6/9q7 zWvm/vD16oy0V/yrB/Zdi/Mm9/nhxvLbX1aK4oq0GTvP9apNl406+q/Y3+PNu8v2CX5Ql/zELAx/MNPN /CmRCeBCv6JupPe/oHq+5Cf9o/mMTsr5GHeB21e0g5 /69F+93y9cf80hH9907w/INW/sEsg+f4318ys2I2fxIy+XbrbrNZspz0Uin4d6tt67Wj+Act96/quv1H ckfL50q5Sn032Fgr7pI/ZeX+VZXv/od2BWbZdG/3nyARrF7kzk8ly52ItkxBY9f87i/wA+U3+Vsx3e4z XZxvXzjfvnC+feF8+1o2t4eB50BH1sOsL/iKw8G48F 0xwyMeV6k0sHObaT/9U5mg0Ac/sMo/ROB4d9eDq+eb/yS33nwOndN1eysqbj+23MP85UEnQtP5rwM4jm B8oD+751X6B/X97CuRD0uLI4kwXoaamYzOkesR+APlMZ/XsG9egNn0y5fq81sod2QRQ7vwu/djpV2k3a meLf4crVmyr1s1+lfcE53A98/cYmc0eeY6lnXYx2M/ xH0dg1Y3fS/gL/AdfAc/wA/wN/fjKs1AZco40AO3oqK+0rxu/6Xr2k8jm//+sv7/XTbBx/H75j2sc/O1 WG1VW4B2Pmr/ON++yj+C3cu2dB+6e0JtDevFJ+mJalmaAG2R7ti0m6NwSLb9YzVM6I0Z11Flh2IP1L7P f/D+LqzPC+/van/oWu0/Bs30rwqbtys4K2n0i4G4+3 +Xt/36Qkai5J+fxocLjPZLbRC5wfDAib/leR18yi+Z6geyHlX80bhuxM/CWssPgzunBc4Wl9T7BRFsRy arwHyOPh+1Xu027VuH5bd4y5hp9wlF4nFX/l9YaV/NvD7v7/lfXse+Ujew1c6EdidoT//Ra7c/ZR37ah 8/uRcIf0RyD8TlZ77QdIe6+FMi6x5/Bez1bk5a9oc+ rWQYzOnIz2rXczm6ejUgA27D1slbBkfq41+MYNrwm7AjybRVgiioXzbrt+M+3vJ+7Gk4kaCv+FPOv7+/ 9tULYp/XJz5ln+yrVnx5oe9ep9pP1zVGvoi5MF/AF6epf553Gy/92EkK6kXt++aBtAY8E3lSEc6MM6ic x75Sy/AiKgFBojy3s//uVI7aEni8vz860n+j y/S+/UHq69gtmFK/i9H+wjF501OLyou6qk+VGF0q62IKGi/XbH+XbH+Xav+MHk9/pmcZ877p7Ip20HpN wof8ugj5xve30/qKugfPt/Pe2r4g+Ub3+oV/bx9ajsA0E7fF/oT/t/Zbj4gysChqueIdrH0Xp3q4suiD PjHQK+iXeOUcT2CG3jD+IHHfGDnvZVlTeUXyjf/hQf VM6ha3rW1c12lw7xqnhc+Lb5XT2yy+Gz/Sk+25/iU1C+/SkO/6DPjk/i8hGiCneDR/ANfAN/gb/Ad/DP eJ/fJ9Ws8V/CXkCyj2rL72/h/TWM1/D+moLf/xK85ba2FRVa7QjT4/la+1PcFsrj+OoGu9a5qXxk3jVn Akjl55W0kSw7qw2+X+wt3U7cTf5pi/UO0gl0VsRq+P 1/5LCvfLU/xVfHp/fil0kqPi/suX9V1/m/rXW7x6MAAn//D5a3d76jre3cdz8qvv2ojz5s/3ieNc0r9v 7Az/+FurYu0/mZswdVaxn1cDu101/tt9q8R71WKy+/e79gC294W3Xk++3uHZ/ltE8TwY98zjZbmA1MLj HI+BTJa+izAP7Ca+R1+xz40Behb/Do+BQPA//4F+61 Xb+GR/tT/UuF4TbwqK+FT6wikGe71/4U3+1P8d3+FN/N8Q57vk1kKgIpnvuj4M/kMu2Z9nzx1g1O9m2f KX72r+71An/1c0n/4LGdfLe/zNM/eK/B3/3cd/tT4ml/SqR/cCW//SmR/kHLawVfwW9/SsA/GOkfrDIT /L9Jaba9HQM+yBplIkdDq3UQ4HE3zr2ojl/8T8HEHJ 0sZKlZI5II9Hh6l/sp/w6WCOAoFpH1THYo1YkrLH187ihSQ6CHXR20q0RiUUc8PT/b/xva/qPQ9h+FYr yU9nzOMcZ9No0B+7f0Zkvb7egg/Y1QB9/BD/AD/A1+318X3kqP0QAJ+FWELk7Iz+TM6Oe175p/Y/R+To k3W3AfnF/ssc2uqdLs9p/FCPAD/R7wR8RWa0Jjf6xf /govsaVTEB8YAdFlti661Q4C+qw8hq4e3tiNO/Ya2jlsN+7b39/I/avib/S2737J1S5NajW4osHpszsW 1r0VFutWP6w///fD+n8/vO5ZKMY7SmjX6M6pYFdH9cL7nmmIEKx8Uz0KsVj0hw+K9A/IgYSi1V+0M7o/ C+PF/aGfaMZ8U2+B3/tXsXo/DktOxxCqQpQjsLA6w+ EYb+5fZRnv/hlw2g6W75rjoIN8Q+UH+Biv4/l670+G9357+AJ/vD99B3WkHqq7XbA8fQy8cqxe/UcRD/ iIcp9sh9D8M1OQ931I/gR/gt/2c2D/KrB/WBUpIb6wlcE+3V9pGICF/4JEQldob2xe+Q138338szXf9k 3Ax/MSkrKzT8gZ83okz+OnfY4DPe3G0QWK/7OMHni0 o/2ez/vp genetic/ya56Bm23941M0RlHy36LLxW7Ix/dm7U2Bc1G+Xf8fxd32p8j87++3G0E+h/gN/q5X46XjFZ [file] Ki1cTdBgWSVAO9Avc2IiVRPuHZKEZd7+VpH2BAY1aIVvRlb6GlObOFfsMUDTXr== ID Date Data Source [id number] 02/09/2021 12:31:28 AM EDT [facility] Name Value Range Interpretation Code Description Data Tyra rce(s) Supporting Document(s) WBC 10.0 10*3/uL (4.1-11.0) [facility] RBC 2.81 10*6/uL (4.00-5.40) L [facility] HGB 8.1 g/dL (12.0-16.0) L [facility] HCT 24.1 % (36.0-47.0) [facility] MCV 85.7 fL (80.0-95.0) [facility] MCH 29.0 pg (27.0-32.0) [facility] MCHC 33.8 g/dL (32.0-36.0) [facility] RDW 14.8 % (10.5-14.5) [facility] PLT 115 10*3/uL (150-450) [facility] MPV 9.0 fL (7.1-10.7) [facility] ID Date Data Source [id number] 02/08/2021 10:55:11 PM [facility] Name Date of Age Gend*PT [id number] Oxana Clancy 1950 70 years F IPPT Location Admission Date/Time Visit ID Attending ProviderD-[id number] 02/07/21 1501 --- Jo Molina MD([id number]) EPI ID CSN Admitting Provider [id number] Attestation signed by Raymond Palumbo MD at [...] stenosis status post AVR, PAD [facility] with [facility] tightness withminimal exertion. [...] Medical History:Diagnosis Date Cardiac CATH 09/09/2018 09/09/2018 [facility], . 50%dRCA, normal LV EF, moderately severe , moderately severepulmonary hypertension COPD (chronic obstructive pulmonary disease) Diabetes mellitus 09/08/2018 Diastolic CHF 09/08/2018 Essential hypertension 09/08/2018 History of diabetic ulcer of foot, right 09/201809/08/2018 History of pericarditis 10/201811/17/2018 Hx of CABG 09/201809/14/2018 [facility], ABAD to LAD, SVG to LV branch [...] Social Gatherings with Friends and Family: Attends [employer] Services: Active Member of Clubs or Organizations: [...] 1 tablet (75 mg total) by mouth tablet 11 Vrvxvntjrbr-Tlztgdnzj-Enftkq (TRELEGY ELLIPTA) 100-62.5-25 MCG Inhale 1 puffdaily [...] heparin (porcine), lidocaine, midazolam, nitroglycerin,oxyCODONE-acetaminophen, traMADolDylan L Anna, JUSTINE portion of this chart was dictated using DEQ speaking softwarewhich may lead to typographical errors. A reasonable effort has been made toproofread but please call with any questions or errors. Name Value Range Interpretation Code Description Data Tyra rce(s) Supporting Document(s) ID Date Data Source [id number] 02/09/2021 06:22:34 AM EDT [facility] Name Value Range Interpretation Code Description Data Tyra rce(s) Supporting Document(s) POC NOVA GLU 186 mg/dL (70-99) [facility] CLINICAL STAFF ID Date Data Source [id number] 02/08/2021 03:58:16 PM EDT [facility] Name Value Range Interpretation Code Description Data Tyra rce(s) Supporting Document(s) POC NOVA GLU 221 mg/dL (70-99) [facility] CLINICAL STAFF ID Date Data Source [id number] 02/08/2021 02:37:47 PM EDT [facility] Name Value Range Interpretation Code Description Data Tyra rce(s) Supporting Document(s) &PDF [facility] GGVTVy9nKhJSBuRt09/TVFqzWGNcb8QjQRroVPw6KLtyYLIkN6VnvDbsIGPUJQuJYonOZfeDFEaQVTZX lYX [file] AgICAgICAgICAgICAgICAgICAgICAgICAgICAgICAgICAgICAgICAgICAgICAgICAgICAgICAgICAgIC IwHFKnWENaLIPkYJBjACDuUDDpNLIhQFZjTDKiBYEpKQFzLK2ZRXPeJAOuMGVxRPFsVVEmEMGyRSXbVD AgICAgICAgICAgICAgICAgICAgICAgICAgICAgICAg RBGeQPLdALFmWIUzLJBoSFFsCUCjAHVtLMJrWKOpDQUhGMUoEOPbDLWeMGApHB5GLPJbQMGqBKXoLVNr ICAgICAgICAgICAgICAgICAgICAgICAgICAgICAgICAgICAgICAgICAgICAgICAgICAgICAgICAgICAg ZAUhXVOnZJXhOKEuEHTaJUEtRVQaRXMoXCPcVU7XGG AgICAgICAgICAgICAgICAgICAgICAgICAgICAgICAgICAgICAgICAgICAgICAgICAgICAgICAgICAgIC ZsEOPgXOEqOHUtXBJqGRQyWLOlYYXxHFFfQGDnKHTfTRYxPZPvIW0PDBAoYAGnRZNqDLDkSJBrQCLuMV AgICAgICAgICAgICAgICAgICAgICAgICAgICAgICAg RFIfZAVsDTWuLTHnZBKlQTIdCYCsUYJfWUDmNMVnGGNxOTDaVVIjKTEoRJVzHAHxIY0UGDKmPXQpBZNg ICAgICAgICAgICAgICAgICAgICAgICAgICAgICAgICAgICAgICAgICAgICAgICAgICAgICAgICAgICAg ICAgICAgICAgICAgICAgICAgICAgICAgICAgICAgIA 0KICAgICAgICAgICAgICAgICAgICAgICAgICAgICAgICAgICAgICAgICAgICAgICAgICAgICAgICAgIC EsAKBcNFVvSJEtIMJiZJPsKWQdZEThODVjPKVjAIMgEWYmTKFsBRTrLK5IUFSwAGCcWLBzQWWgKOKxYA AgICAgICAgICAgICAgICAgICAgICAgICAgICAgICAg QNHxTSHsZREyBMUiNGFhZATsATDcGYWvZCIaCLLzCOCrSQFwYGLpPOQvKUNsLVBrHONnOR4GQYFsQJYk ICAgICAgICAgICAgICAgICAgICAgICAgICAgICAgICAgICAgICAgICAgICAgICAgICAgICAgICAgICAg ICAgICAgICAgICAgICAgICAgICAgICAgICAgICAgIC ZoIP3HTSMdRUPaRZSoEDZuCGJsLDAoMREwKEBkCONpBLXuPARxCFYcLQVlDDBuYAKpWLTtDDLgSVOuUC NgWRHxXEZfXCUaPLElRBLyMQLwVCIsXOUdBYCrJEXkYIGuNWAnHGXaVMAlEU3VFK18kJYgr2K7EKHlGN 0ndyc/Rc6PZVjnywXhhNAiWI5NHhAhGR9vmh0QFqZd LJ0lyf3NBWuJIxVqX3G4qNJbECUnLUPPPlIqF11fGExfLc47BVssUKPyJfBwRWi0Ww7AGoFnY9lpFNJo KxY8JQRvGqY5OGAnIyA5YOPtXxEfXBEoVEQyVZSjCBNOCQV7BGIqTwVbVYajSG5Jf3LdyLV5XFk+Pg0K TP1nb3RfDEswERJjVV4xre9FWZxJBsKrE2BoycB9PK OlZHYtZl0RPTJsLMQfrMYuPKKvJUXRRqAfG5EhbN16KOTHQm7+EYjdcgAsVmyLFzHbDUBxp1FeNSt1EJ 4ZBJTpSBh3aKBcMZ9gcJRgdWBbCUjuZB7TJUV8BIrrSdCoFWCpP6uROuZwLLEzUPIvsHeyUA2JReWlN9 BhcmVudCAzMCAwIFINCj4+DQplbmRvYmoNCjMyIDAg a6NzKEu5RB6FSVCxIKleBW8QRREvsZ3gJUzwJN4QPbMsJKUiPMULQiYaS73flEIfIBv3R6TmExQxYPBt RmlsZXMgPDwvTmFtZXMgWyBdDQogID4+ID4+TIqeXI0EQKydutAjBCFyCg1KADQcBFQhXV6dYLHmCROz Z3C4xXvjNUDKFzVfA0auiqylCP5bXRFnD033jGejpb UjCCUrUGVcRu3CVENlOWE6YFZsmRAmYeqcORCVTCytXQ5HdLXhAAZ8eU2oZZqpTQRoKOBlU9yYCqYmgY prIE52rRxnnsDfgUPhTHs+Te7VAE1yu6DqEWg2sfOoDOzcFAXdQLehSZJdCBReCFVzRPE4FEK0UPJDLc IfIWNtTJZoXPfnUTZkVMPbpi7ZNPJjQBI4LJT9KgTf HFXuTISoFFguASRcQCa6OsXqCTOvDGBfBJ0ETqLsNCLjPEGqJTNeELIiIDJknl8MRPVqJFOgPoM8OzUa TNLtHHScKSzdGAGsRNNjDivdDJXdDSSoMK7KEoKgAQObMXLrAkLxDAXwGRQkgf1DNIDdANHmJHP5VKZf UEDxGGNoHCxyWRFhJMU1ElElSFKxURTxXS4XLkMjRU OkJYa6FIReUSDcNZPvaj6HLTWrTQOjBUNpGZXpSXHzPKOaBUtqMJWfIKK7RkX1ZYYgXVViHY4YKgWuMP HnPLL7OeFiVSMjFLUtyr2GRSUlDAQhYYZ1BLHcYKVyGHXxYFysHDPdNDHyHBF6ZPKvZVSiQD7GGfAaMQ RaOOKdXMHuSVNmLVPwql4IPPLfKDXnPRUjYCSeRAJb LMQbWOpsMTUrRQN7WKS1MQLiAMGxDN9LEbRdLZErGQG7QLVhNROfFDUonm7PVIPwRIVkKDD7CVIuWINj HNQbASjeFKIfLXC2BqQcUNLaCWPnMY1HYzClRQRkPSQ7CaoySBOwTMQgup5MUEWsFEIxLGKbPeEtFMFx RQDdVEvtZNRwSEV2Qac0FZWhJBXxHB2FFwZlUFDsDi a2RNquBTVxQCXfwn1XBRQcKJL9HFT1NyHgGKIqNOJsEAssYWUhFLS3CYQjCWEjTDAvRD3VOhGtXSKoTP G4WiPzSXBxBVQyzs8UMLVpIDT9OJBvYwTmAQYsFGFaLFepWUFlGOl0CObyCSCmQESeLK0LGyBsDZBvVE P1QGZmXTMzSMXtpz0LWDXvJRB8WwE4LpKlHUOxGSYr WWe9vwFqdWGjPXl2NH9TT9HjxmEgLgTMYr3Rl637YRClOYOfQy4ZF1zfUc8vTNOxMPWNBx0LFXf1AfD5 FOKeH1VvZPPvS3H8MlmeJ2R3OACsKoDrNzYeR2D+SWp1NEG6RWB6UYUfHJG2UajwHNY2IIW2VdOyVIPa EPZcDX9rNQGXOx2+STbjnPBfqUifQFGDDdi5DRe1UUjtTAKQXn1Z ID Date Data Source [id number] 02/08/2021 03:43:15 PM EDT [facility] Name Value Range Interpretation Code Description Data Tyra rce(s) Supporting Document(s) APTT 45.3 s (22.0-34.3) H [facility] ID Date Data Source [id number] 02/08/2021 11:42:12 AM EDT [facility] Name Value Range Interpretation Code Description Data Tyra rce(s) Supporting Document(s) POC NOVA GLU 251 mg/dL (70-99) H [facility] [place] [facility] ID Date Data Source [id number] 02/08/2021 08:19:06 AM EDT [facility] Name Value Range Interpretation Code Description Data Tyra rce(s) Supporting Document(s) POC NOVA GLU 215 mg/dL (70-99) H [facility] [place] [facility] ID Date Data Source [id number] 02/08/2021 06:23:10 AM EDT [facility] Name Value Range Interpretation Code Description Data Tyra rce(s) Supporting Document(s) EKG [facility] ZDBSUe9wGgQRFmFjp5VwWnBiRPQxIV7cyxn8R9L0uQZxK3AujGEyt1mnM3DoA2VyEXImOPYKJH0DcZWb jb2 [file] X1GW6rzEWr+LiDeQ2uopXdImFngxtmilGu3/l6hxUfsUEl0u9+VACUUM 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+xX24+VACUUM 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+8nBB3qyal798YWJ/2n9 [file] AX7rlhxh9ylGJ/syGL/TCksR+Healthcare Translator+ZZo6K7h8DWV/XCBviCu8vty694LEiycU6gyl/A3aqGvTmSqXK+GL [file] AwMDAgbiAKMDAwMDAwMTYwOSAwMDAwMCBuIAowMDAw JJWvYbB4CZBoQAZaAF2hXxOhWGRyUPE0EPKvLOMmZZUripSXTMXtKTKnQVWbBNW1TPPeSZDyDJz2zuGf rIXgQhb0Rx7FsVpsDYM4Jh1JlrAgOBQrDDVEEc8Cn309ONPrLJVURzd+PgpzdGFydHhyZWYKOTgzMzYK UPOGA3T= ID Date Data Source [id number] 02/08/2021 05:56:39 AM EDT [facility] Name Value Range Interpretation Code Description Data Tyra rce(s) Supporting Document(s) SODIUM 141 mmol/L (136-145) [facility] POTASSIUM 3.2 mmol/L (3.6-5.2) L [facility] CHLORIDE 103 mmol/L (100-108) [facility] CO2 30 mmol/L (22-31) [facility] ANION GAP 8 mmol/L (7-16) [facility] UREA NITROGEN 91 mg/dL (7-24) HH [facility] CONSISTENT WITH PREVIOUS RESULTS CREATININE 3.30 mg/dL (0.60-1.00) H [facility] BUN/CREAT RATIO 27.6 RATIO (10.0-20.0) [facility] GLUCOSE 211 mg/dL (70-99) H [facility] CALCIUM 8.8 mg/dL (8.4-10.2) [facility] GFR 14 ml/min/1.73m2 (>59) L [facility] GFR ( AMER) 17 ml/min/1.73m2 (>59) L [facility] GFR INTERPRETATION [facility] --NORMAL KIDNEY FUNCTION OR MILD DISEASE - GFR >OR= 60CHRONIC KIDNEY DISEASE - GFR 15 - 59RENAL FAILURE - GFR <15 Est. GFR calculation based on the MDRDstudy equation, which assumes a steadystate for creatinine. Est. GFR should notbe used for medication dosing. ID Date Data Source [id number] 02/08/2021 05:19:16 AM EDT [facility] Name Value Range Interpretation Code Description Data Tyra rce(s) Supporting Document(s) APTT 52.7 s (22.0-34.3) H [facility] ID Date Data Source [id number] 02/08/2021 05:08:05 AM EDT [facility] Name Value Range Interpretation Code Description Data Tyra rce(s) Supporting Document(s) WBC 7.9 10*3/uL (4.1-11.0) [facility] RBC 3.47 10*6/uL (4.00-5.40) L [facility] HGB 10.1 g/dL (12.0-16.0) L [facility] HCT 28.4 % (36.0-47.0) L [facility] [place] [place] [address] [place] [id number] MCV 81.9 fL (80.0-95.0) [facility] MCH 29.0 pg (27.0-32.0) [facility] MCHC 35.5 g/dL (32.0-36.0) [facility] [facility] RDW 15.1 % (10.5-14.5) H [facility] [place] PLT 135 10*3/uL (150-450) L [facility] Aguilar MPV 9.0 fL (7.1-10.7) [facility] ID Date Data Source [id number] 02/07/2021 10:40:00 PM [facility]T [facility] Name Value Range Interpretation Code Description Data Tyra rce(s) Supporting Document(s) SARS coronavirus 2 RNA [Presence] in Res piratory specimen by ALLAN with probe detection NOT DETECTED [facility] This lab was reported by [facility]. ID Date Data Source [id number] 02/08/2021 12:31:56 AM EDT [facility] [place] Name Value Range Interpretation Code Description Data Tyra rce(s) Supporting Document(s) SPECIMEN DESCRIPTION [facility] [place] INFLUENZA A (NEG) [facility] INFLUENZA B (NEG) [facility] RSV (NEG) [facility] COMMENT [facility] THE [place] FDA HAS MADE THIS TEST AVAILABL EUNDER AN EMERGENCY USE AUTHORIZATION(EUA) FOR THE DETECTION AND/OR DIAGNOSISOF THE VIRUS THAT CAUSES COVID-19.PERFORMED AT [address] [place] [id number] COVID19 RESULT (NDET) [facility] THIS ASSAY AMPLIFIES AND DETECTSTHE TARG ET RNA USING REAL-TIME PCR.TESTING PERFORMED ON [employer] GENEXPERTNEGATIVE 2019_NCOV RT-PCR RESULTS DONOT PRECLUDE 2019_NCOV INFECTION ANDSHOULD NOT BE USED THE SOLE BASISFOR PATIENT MANAGEMENT DECISIONS. FIRST TEST [facility] [employer] [facility] [employer] [facility] [place] SYMPTOMATIC [facility] [place] Aguilar DATE OF SYMPT ONSET [facility] [place] [facility] ICU [facility] SET [facility] [place] [facility] ID Date Data Source [id number] 02/07/2021 10:17:48 PM EDT [facility] Name Value Range Interpretation Code Description Data Tyra rce(s) Supporting Document(s) APTT 62.6 s (22.0-34.3) H [facility] [place] ID Date Data Source [id number] 02/13/2021 07:04:12 AM EDT [facility] Name Value Range Interpretation Code Description Data Tyra rce(s) Supporting Document(s) POC NOVA GLU 198 mg/dL (70-99) H [facility] [place] [facility] ID Date Data Source [id number] 02/07/2021 05:15:58 PM EDT [facility] INFORMATIONPatient MRN Name Date of Age Gend*PT [id number] Oxana Clancy 1950 70 years F OBSPT Location Admission Date/Time Visit ID Attending [id number] 02/07/21 1503 --- Jo Molina MD([id number]) EPI ID CSN Admitting Provider [id number] Attestation signed by Jo Molina MD at [...] Status: PriorPrimary Care ProviderReferring Physician: Flaquita RIZZO [facility] Complaint: Chest pain and shortness of breath. Poor historian.[facility] with a NSTEMIHPI: This is a 70-year-old [...] lower extremity edema or syncope. [facility] She ruled in for a NSTEMI. Troponinelevated to 16.7.Initial EKG 02/06 revealed rapid atrial fibrillation with marked ST depressions inthe inferior and lateral leads with a ventricular rate 114EKG today revealed sinus bradycardia with a septal infarction and STabnormalities in the inferior lateral leads.Transferred to [facility] for cardiac catheterization. On arrival she is chestpain-free.Troponin 16.7 CK 411Thyroid levels normalHCT 33.4/7.3Creatinine 3.7 BUN 94Covid 19 negative 9HistoryPast Medical History:Diagnosis Date Cardiac CATH 09/09/2018 09/09/2018 [facility], . 50%dRCA, normal LV EF, moderately severe , moderately severepulmonary hypertension COPD (chronic obstructive pulmonary disease) Diabetes mellitus 09/08/2018 Diastolic CHF 09/08/2018 Essential hypertension 09/08/2018 History of diabetic ulcer of foot, right 09/201809/08/2018 History of pericarditis 10/201811/17/2018 Hx of CABG 09/201809/14/2018 [facility], ABAD to LAD, SVG to LV branch [...] CATHETERIZATION N/A 03/28/2020 Procedure: Left ventriculography; Surgeon: Melisa Desai MD; Laterality:N/A; CARDIAC SURGERY N/A 09/14/2018 [...] Social Gatherings with Friends and Family: Attends [employer] Services: Active Member of Clubs or Organizations: [...] tablet (75 mg total) by mouth nightly Wqennciqpyg-Injbbgjak-Yqhsog (TRELEGY ELLIPTA) 100-62.5-25 MCG Inhale 1 puffdaily [...] Paroxysmal atrial fibrillation: Initial EKG at the [facility] revealed atrialfibrillation. Since has been in [...] rce(s) Supporting Document(s) ID Date Data Source [id number] 02/07/2021 04:28:40 PM EDT [facility] Name Value Range Interpretation Code Description Data Tyra rce(s) Supporting Document(s) EKG [facility] ETBPIk1iUwAOWkRoj7VkIlSdXIGhRR0suym9D6X3jNWmF4VqhWZct2zzW1GdZ9RmDYLfABHBTS9XzVLu jb2 [file] S2d/PHRxf+V9ub/m28S9x9O8klze/Z3fszH+bo+5a+OPO6v/F73V/o7+g7Z35tC8cnAkNb8mA6k4Tqr 155LQ7/n1dBYZK90T/qk9Imf32U+G/Oo6SfEyefk2+/jk7Rwwo16d/X9jk+/04ZC45xq9XgMG1+N79Bx QN9x/jVN6B3USvJRGakaoU5OxWJDs0/++ms1c55BJb pVxunpoFGR7k/0YRs2yPYdO440OKG/Jbf2j1b3pE/j/sqfTfdX+vvpd/jfG/7eb18L/R5/FeWFNvctu7 7O7d49C/3ueuU8/irK/cpz/UKFV9yN1p6K45A6ob/mfgXjBLFSdEsthiW9guVyNtv2MB+A82y7Tfz69j X36x5cTGyCS9+o7q+4Fr4d12NmyMZCs1/8VPovGnG8 jgiJ32IFjA/4MI0hh1mP51Cu/ZWX3V+05xOAvpir5yyae784oZun57fBw84uQ4W0427mhr+q+6v67lK/ 7Igk3Hd9bo32EQ9uN91365+6CuxjqaibrbOcDBCWImtF2uLjzoFW/QHm4DWjy8+Vrdm5u2G15Dk1f9+/ A20R1Omz32p+J/z9t6GeNtLfeo5sG7L1yo4g2BKk67 4Hzwa0/BiUg84MszJrLS+n989443/V/dXz7jy/37c3j0WY2DF/9YOgKrjnzZStvgapmmN90vM9O1AlXb XnQfnyuvYU/P36jQZ/5B1P7n7pCy/OovzBsl4B/xTX/ZX/+MED5QBbNapt6EMrKE+UF/b381TAw4EBj3 6ucuh+/QGI28uWFxuzzdWg7Rvg/Kp7+cxv8/JCed/y 8Ve+jjibye/fC8qn3/7uJH/75V7bv4Bc2iYJ24LCA0yRnur9ndTgtEdGwxc5fU/gnWmvBxCu6D/8Vev3 +W0d/To56cuLZst8jDdU7HhcP8bEb5wMvjwqx781Eyk5wp2rIMbcMJ5f4Boe+Y+Ib71kzN8nsLAKYiLa 6/4L2k990PW+y99+u+t4/VFp3s4w8oNvx5xMxkm8/Z Q9nhlIV/yqOb+apx3nV/5351fD/23ljR4d14GDbn/bzcgZvxm57Nxi16Q/Q5PJ81xcwnZufI+MMW99pY 1+82S89KrzM/259tyf+/1gNA1555n+98DzbanfjeT0L+X73u/P5Rsd/AfIA9Bid17R8qir40yBzGv3oQ /v4kHapnsS/gWJ1qSmWGfKqY+MeaU8Xe/T4jvAky/9 d9uXt/h6nAuqH2Zlw4or+ZXKHdcMlE+/08un3+URv994q2bel2J6f796A8/e/qR4yg0Knmj0K9mDnVZi +prvr27d40BnqRG+ZtAYlzjvf8Hjj0Upi/Fh67OQwbrrwaUd3otsoOFkRDqcFS3pYkU7SKU3IFG1QvkQ Oe6LsI+5INyoVgG3hMYLTAsVNSST5XHi6OEsPHljWZ DeLik46cm/X+h3od+FBxgOq6+6TV4qqnojamz1vivt4+o9sh5Ha/++93V4d8OcDDo3PsN88z+jfWOcsS WsHCX3t9dxkhQ1dRm7Xf1lbzsTu01CKyu8fqGr1rx4qwq/Y5GTi30R8PZR+t0smKljhjbPT1lH43/8fe Kh44OJit8PVzwJF0cUfuS7AC1ocCA4B/uE19BODnUa pIyigJaIJ1JYM3xyfqkFA2c5XUdwHVgotGg5D2HTY9mhrB80fY3CSQ6jJHl3M2VFLhHVsFeJNoRg38Ml 6A/KGGcsCAc+RP4nVRzUMBbXTboqV+G3yGUNL5HzS8WxhBafY8GU8NnfbJXeJWF3MhO555C0zB3gZ697 jmZFGc/B9RdP3Gh77Six14pI/GPdF//AB/eBBeHAgn Dgg/eBosP1cOP2rPuX7NLLyulF4hn+YDjl/aBsKJ9+u2+9QcKavnfgMou0iVSh7NzhR/nt6QbrRj/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 [employer] TEXTILE [file] vp genetic/vMzmXqu+L2F4E526S5H1Nhhq3z8v09+ZKLvlf/8 [file] 0BRRII9X8lRk4Fqnq3P/kPgvNaZj/otom5yjN/Brando eQVUVI3QNERDDKTTVyNl5hpjDLjoljgHXZ+ysr4GGiUowqSeLKwuFNF5u9V1eC9mhecOvceKeIw/nO+C 360oWgKLYoF6VEo8NaCQ99YuTfan0jP9jnXPKE3jlkFRl/or6QJ9jRc5xeueMiUz3Pyg+ToknhN5H7nz 3fkSHAzZZ0xjaldAjKUrl2anu/EobfBlyngql7nR53 U11A1pjRpWJhEPBw0SBEAbWrO3mapNN6iUQfDK9yHuV/Buf3BV5Jh+PN9J0jQBWqF7xmxr0+Eq2HcliD x+[place]+YeMVMJeujzke92yqGV4SXGG/jDKGIo+igPNpiw+EZDNir97bpMALMin72Ks4LDxZbJoi4oMhqp YWmN5Jd0RZj5eG8fI7gDnqBJp7Lpkc5I5d+IBZn/dM wlQI545li/dNAD+C21DxN58/XMBGPZi6O8swXH5CBvPnoveDm/fft9XacL5aA44oaMReSNZNYhEuCRxB gr5yZiOfK+Cxyt0WxNpsxSCFTKX1PHawqhNmqKw47LcH+bdhryfzb50LOulcL1886eXu9b1rHeIm3Uut vFKOXyX3DA6qMdNnmkcIvl3sH/KSWqu6PDJbArc4rP RPLhDdD2w0P/rGotZLPEqzlGOm1VyQx6lSD0/vQ5cuPKFmQyIECoO8IZ/Y3c/EdTalKau15lWCwTlpRi cS9lWX+ec5I76kumJrZhlrxEnC0sT7OdJgRVMyUIY67b7UTpYun9pWfIoyKBeGYwPx0edZIMPTfO79uH 9kSybHDUAD0QNE2os+tMraeB/VAlUZoGbGBF9IVH4W pz6Q2bsRAmeR4TaYi7DTsm9Zrtbo8BOFp1RLHZqsbhzemBeC4hCKb/YgC5LrUIjvXjM4nFuvRenrhIw+ IGdRiyBO8EYCXyItg3ouLcq4ZMZ40gIPCLAwbERyI9CtBDHAWXP29aSNOxovkpprVTo+VPBBr1dwPEhA bF1YXxSoVj3jTVZZJF5XXkfIQ6MsAJ0pY6tn3f2yvA 2ePHRc4VhQVKVvZQXhoMDUXEl2ngBnxjZyS9089Rs1AehG35eVolGCinhPa6bBlUs81hjuhcf+SE+87V X7Bly8f0bSmsajbG/ANbvW9mQGqjlWY/XH+Q/8TEr/wX10hZCqWcTIlIJeaaFbbkoX5k5LUVXiT6RRHs i8bFd/Leisa/3HYGYr8alMgmKoD8ZAZsGLW+SBabxsH [file] vYjtWGjkWQCJlQCJVFNwJrENAGmbZzxkbSlpFZyDxV bvPDTJjYNSjs56cQeBpkvAvngh8Orr26mNoHf55dJ0gkLGJhhsFByeCeRFz7wdVBOQEYNTZr2N2Ey0gY AYiAGBuONkEKTKxJER6vOgeNJSXadWBWNLjtAgnCNXEgvKzxSmhgPiUlMJP+5FQqVv0aJbOGliRXMwHF GqIPCi3rsfuDi8Sjj5gvxSqgb7pqgZkfbv+JHqjneb rPSilci9ipLjf81aMml1JgcRuUtXn6VFpj7Ed48/eiyB175Cp84Vlea8Q9rf7X8zmaYJLx83Yon/R+UV 4uuYB938RIV9sMvGrhvryk5xw6VixscDybgp+UIrLJ5JhRdgJaQr0Etboshaf6gqRK0Mo1SAW3Df4RUp Qo9qLdI6DqgKuPGvKPR/QViutYjmydiZAJBdXpFdXZ 13EWgjeQ57DU/5Cpo4eZ60WHpoFydi5qHWOccSAbIf+Nx7SzAGwcb2GZgIa8vt1orhrs47OK+3Rof+52 3+i00QAy7rc34fei+8+Ao5sS7ypGZ+CO61O3GBa41ayC58Mxj0JBkcBr25K5b/ipd5vzZe/jkaG6Hr7l Agustín/OL9L6v2wT4/+zhmy2eaoxb1fI+8eXl0/nt+8uL z91qnbh/3dd4/Xt1fL/kAC6l5eG5iz5gTHsqOovW1a8OZ59nn08e4qW35pQ/5wcX5/eX2+fH/9+HIJD4 /Q8lXE60jGp/rR71jFR7bFp/jKJflu3jPs/mt5XL4/f306/8vbu/tvzm+uH3/4mZp7b759kap9A31sg9 s8l1a0q3l7S84Pxr2bVl97p00+pSJB8zoVx7aqtR1h [file] MDAwMDUyMyAwMDAwMCBuIAowMDAwMDAwNjQxIDAwMD OnWS5kHzAjHJVmLEX6ASObIANpBKLyyfGJDHSiUCGjBOv0EJUwKVBdLHBcJXirDQTwSRJeUMP0DKJgQI YaVI6kBnQiVDHcOMYjOUCrKANtMFYgbzTKAXYbDSLgKPD1OYEnJCSgACFiJKpqFQRoQGXwJyl0CMDrAW LaNV4gKlDnSRHgZXK7PXFgCMIjLLOebqSRSXIeSOZ0 WNm4BLVoIIFcAMZjECdvBHIrDXEjEwV8JECpKVIvNX9hUvKgOJExTAF8AjSbDBDnEXEhmjEVWNDsPMIt HZW3BxClXDIzHXQnZKwtRVTeQLGoXNBlEHP2JSN5EZXxEgXoLQguOOHTZOyVM8ViujBmPtJTV1upSy0u BpKcWFAAD3Gch6BiFIVgFGXDAv2+CqS1NPJ6vMTuDhc4WRH0ZOxuKTKOTn== ID Date Data Source [id number] 02/07/2021 07:05:38 PM EDT [facility] Name Value Range Interpretation Code Description Data Tyra rce(s) Supporting Document(s) WBC 8.0 10*3/uL (4.1-11.0) [facility] RBC 3.58 10*6/uL (4.00-5.40) L [facility] HGB 10.4 g/dL (12.0-16.0) L [facility] HCT 29.8 % (36.0-47.0) L [facility] [place]FORMED [place] [address] [place] [address] MCV 83.3 fL (80.0-95.0) [facility] MCH 29.0 pg (27.0-32.0) [facility] MCHC 34.8 g/dL (32.0-36.0) [facility] RDW 15.2 % (10.5-14.5) H [facility] PLT 133 10*3/uL (150-450) L [facility] MPV 9.1 fL (7.1-10.7) [facility] ID Date Data Source [id number] 02/07/2021 06:19:10 PM EDT [facility] Name Value Range Interpretation Code Description Data Tyra rce(s) Supporting Document(s) CKMB 28.7 ng/mL (0.0-5.0) [facility] ALERTED CRITICAL RESULT TO TO [facility] IN C TOMU (1278) ON 02.07.21 [place] 1817 [place] [id number] CKMB RELATIVE INDEX 8.0 {index_val} (0.0-4.0) H [facility] ID Date Data Source [id number] 02/07/2021 06:08:53 PM EDT [facility] Name Value Range Interpretation Code Description Data Tyra rce(s) Supporting Document(s) TROPONIN I 15.00 ng/mL (<0.05) [facility] [place] Less than 0.05: Myocardial injury unlike lyGreater than or equal to 0.05: Highly suggestive of myocardial injuryCorrelation with rise and/or fall ofserial troponins, clinical symptomsand ECG changes is necessary.ALERTED CRITICAL RESULT TO FINA(1278)[place] [id number] ON 02.07.21 AT 1807 [place] [id number] ID Date Data Source [id number] 02/07/2021 06:08:53 PM EDT [facility] Name Value Range Interpretation Code Description Data Tyra rce(s) Supporting Document(s) SODIUM 136 mmol/L (136-145) [facility] POTASSIUM 3.4 mmol/L (3.6-5.2) L [facility] CHLORIDE 97 mmol/L (100-108) L [facility] CO2 32 mmol/L (22-31) H [facility] ANION GAP 7 mmol/L (7-16) [facility] UREA NITROGEN 93 mg/dL (7-24) HH [facility] ALERTED CRITICAL RESULT TO FINA(1278)[place] [id number] ON 02.07.21 [place] [address] [place] [id number] CREATININE 3.71 mg/dL (0.60-1.00) H [facility] BUN/CREAT RATIO 25.1 RATIO (10.0-20.0) H [facility] GLUCOSE 273 mg/dL (70-99) H [facility] CALCIUM 9.1 mg/dL (8.4-10.2) [facility] GFR 12 ml/min/1.73m2 (>59) L [facility] GFR ( AMER) 15 ml/min/1.73m2 (>59) L [facility] GFR INTERPRETATION [facility] --NORMAL KIDNEY FUNCTION OR MILD DISEASE - GFR >OR= 60CHRONIC KIDNEY DISEASE - GFR 15 - 59RENAL FAILURE - GFR <15 Est. GFR calculation based on the MDRDstudy equation, which assumes a steadystate for creatinine. Est. GFR should notbe used for medication dosing. ID Date Data Source [id number] 02/07/2021 05:57:58 PM EDT [facility] Name Value Range Interpretation Code Description Data Tyra rce(s) Supporting Document(s) NT PRO BNP 34877 pg/mL (0-125) H [facility] [place] ID Date Data Source [id number] 02/07/2021 05:57:58 PM EDT [facility] Name Value Range Interpretation Code Description Data Tyra rce(s) Supporting Document(s) CK 358 U/L (26-192) H [facility] ID Date Data Source [id number] 02/07/2021 05:28:05 PM EDT [facility] Name Value Range Interpretation Code Description Data Tyra rce(s) Supporting Document(s) HEMOGLOBIN A1C @ 7.9 % (4.0-6.0) H [facility] Performed using Siemens Towaoc immunoassa y.Care must be taken when interpreting WuN2gostdwva in patients with a hemoglobin variantor decreased erythrocyte lifespan. Values 5.7 - 6.4% suggest prediabetes.Values >=6.5% are diagnostic for diabetes.REFERENCE: DIABETES CARE 2018: 41(S13-S27).PERFORMED AT [address] [place] [id number] EST AVERAGE GLUCOSE 180 mg/dL [facility] ID Date Data Source [id number] 02/07/2021 05:13:38 PM EDT [facility] Name Value Range Interpretation Code Description Data Tyra rce(s) Supporting Document(s) APTT 25.5 s (22.0-34.3) [facility] [place] ID Date Data Source [id number] 02/07/2021 03:21:50 PM EDT [facility] Name Value Range Interpretation Code Description Data Tyra rce(s) Supporting Document(s) POC NOVA GLU 312 mg/dL (70-99) H [facility] [place] [facility]FORMED BY [facility] ID Date Data Source [id number] 02/07/2021 01:37:00 AM EDT [facility] Name Value Range Interpretation Code Description Data Tyra rce(s) Supporting Document(s) SARS coronavirus 2 RNA [Presence] in Res piratory specimen by ALLAN with probe detection NEGATIVE [facility] This lab was ordered by [facility] a nd reported by [facility]. ID Date Data Source [id number] 01/23/2021 04:14:55 PM EDT [facility] Name Value Range Interpretation Code Description Data Tyra rce(s) Supporting Document(s) Discharge Summary [facility] CWADSq6zZuGCLrQg90/YYCvqIPSoe9NwCQsoDPa1EMxsMCLvG2YkMAK5xB6fXTF2BSfYQxXgIgMvLUS7 lbm [file] AgICAgICAgICAgICAgICAgICAgICAgICAgICAgICAg ICAgICAgICAgICAgICAgICAgICAgICAgICAgICAgICAgICAgICAgICAgICAgDQogICAgICAgICAgICAg ICAgICAgICAgICAgICAgICAgICAgICAgICAgICAgICAgICAgICAgICAgICAgICAgICAgICAgICAgICAg ICAgICAgICAgICAgICAgICAgICAgICAgICAgDQogIC AgICAgICAgICAgICAgICAgICAgICAgICAgICAgICAgICAgICAgICAgICAgICAgICAgICAgICAgICAgIC AgICAgICAgICAgICAgICAgICAgICAgICAgICAgICAgICAgICAgDQogICAgICAgICAgICAgICAgICAgIC AgICAgICAgICAgICAgICAgICAgICAgICAgICAgICAg ICAgICAgICAgICAgICAgICAgICAgICAgICAgICAgICAgICAgICAgICAgICAgICAgDQogICAgICAgICAg ICAgICAgICAgICAgICAgICAgICAgICAgICAgICAgICAgICAgICAgICAgICAgICAgICAgICAgICAgICAg ICAgICAgICAgICAgICAgICAgICAgICAgICAgICAgDQ ogICAgICAgICAgICAgICAgICAgICAgICAgICAgICAgICAgICAgICAgICAgICAgICAgICAgICAgICAgIC AgICAgICAgICAgICAgICAgICAgICAgICAgICAgICAgICAgICAgICAgDQogICAgICAgICAgICAgICAgIC AgICAgICAgICAgICAgICAgICAgICAgICAgICAgICAg ICAgICAgICAgICAgICAgICAgICAgICAgICAgICAgICAgICAgICAgICAgICAgICAgICAgDQogICAgICAg ICAgICAgICAgICAgICAgICAgICAgICAgICAgICAgICAgICAgICAgICAgICAgICAgICAgICAgICAgICAg ICAgICAgICAgICAgICAgICAgICAgICAgICAgICAgIC AgDQogICAgICAgICAgICAgICAgICAgICAgICAgICAgICAgICAgICAgICAgICAgICAgICAgICAgICAgIC AgICAgICAgICAgICAgICAgICAgICAgICAgICAgICAgICAgICAgICAgICAgDQogICAgICAgICAgICAgIC AgICAgICAgICAgICAgICAgICAgICAgICAgICAgICAg QFWxNYRaLLMcIFTlPVYjSDUnKPSkVQJcOGOaZTXmKZQcSTXbRHAmCGCxZKNhTSKhRCXvKUAmBGz3G5tr BAGaIALvEO4oRMa6Nq4+DRbEByPoJFT6rsRafV3VUJ4aw0DkWQqlQAGwv0YcMEn2CE8SRVVuJWfhBC1L OEixlz2JFLOiKUWklREKx0zoSjHhQDH2CTUnVzuoOE 4RXZIzN5njogWeHLZgMQNHGCchWLCQRNhhHMVKMJFlIQEaQoVmUpJfMZXbWYOzQNOMLG0EGaEsM2AcdK 31JUPMBt8+YOmlsuNcBkwDUjZfVUJma9BsLLl0WK0INSLpIleps2TyDdOwRJLWFUklBH9LCHS1WNKdVQ IkZx0OJGUjT541flIyOE7DQe9UUoRmFG1kmy9QOuPa FXCnOzmJHpt9ZUidSG4WoDWtFXvNsUNfsSMgJ7PiW5TbbEYzpFFiiNNTWWt1WKAwVrRMxS0tDYRcDRMC AHPkiPG2ZnNgAlUyPeAyXIY2RyDiAI6mJDlaFW6AWDI5HGqzVJJuUCFmR4kCKsJtIAJdUqQihVdqMH1L ZgQvY0OhpuTrlCVaVVPzLGHGBb7+DQplbmRvYmoNCj WeVPBoo3FqTEj7TN8MEJAkAYybZX4HVGVtuR9qRIzsEZ3TDtJfJXNpZBKJBjKtL47leFDzZOz0F4IiPr VkZGVkRmlsZXMgPDwvTmFtZXMgWyBdDQogID4+ID4+DLqyIQ8DLDkslxEqMVFaRq4YJQHbOWEtIU8hEI VgCRFcW9P2wKozHJBPGmGpJ2bkddcdAJ6aNCPmU917 rGpavpKdTSMbZOMoFz1BVQDqDPU7YOLaaVBpRqeuKETEFOosPU9FgRWlRJP6tB6uMYbgQMNoSIEsP3nE BcBjoRsiAG13hUlgpvSskAKlGWm+Gt0MMV1ca4XrQBh4ttDlVUouMYBuKLvtOWJtWUDwITQaXUU6AIY9 RXEQWnHgBHPaAOBpORbqRKUjCGUqqb6EGDNqUSRgKR bhIpYaORHoZSDkAQclUFXaVUL9QBE1YGDeAMShMR7BXnHrUMNjFSDmUErmWCYyBTEgvl4EIEMmIUQiZU D7FSKvEDNmZQPlUVnfEDEbFMY5OBu6AKSyRVVcWB4QAyUlPRMcGYkqWRocVJDqUNQcbm1NILAyEMNsQV LcWUKlVFJaEINiYGqzMWVjAXMgMRP2EPFpEGSzIH5W UgIjONYmKQFcHJssKRZiJYRurf8NEYDqVRFkSPNuNJNnQWWxYIFcKMgtURChABQ8NcYyYCElEERdSW6W YeItCEOiMCqpSwGiTTWwNHNuev5GOTKjCQUhHPN6GOKzVRYoFGMmBKeoSGBxIQZ1NBk9NKEiMLQoXZ0F KxZhUYKhEYanOGCnBAXrSVEopz2REORqPMZrKZG7BU FdOGFdDUBhYRziMWYlVRVgJGNnUWWrWWDlAP0XXwRyBPXzBiU7MzWtRYIrPOWwgk2RLFLbVKFvDII5TZ GbCJJaCOWxMLwiRHQwFLHaAla2XTUeAYBgHA5DBtDiRGUtWnH9WSVhEXRqBOFkag2RUTEaBXBmKpd5HK CpFOZkOXZvNEgjQWFsRUUxZJMqMUUbQBBuMQ9RSiQg ZSHpCmQtWfQjBLDkRHTyao3BJZLbWWIpBLH0YBDsHOUsCXKtOMfeUJHtKHW4VFn9WBHtKLTfGJ8FBzJn BRQvZbR7DrubFAQfIRTkzl7AUVBcMAAiAWVrHARqTFPdVTNpQEewGMFxDJB9XUrxQJXkSWOoQQ8TKnCv UKSoYdI2ShGuGEXrTSVqma6QXJFpBZTeAnnaAWVoRT RpMBSdNCq8aiGmmULvXBp8FN4NH5GmfwZqZsVSYc0Uq706LNHoNZAqYf5BT3nuKv8zVTTsVJMAPo2RZE w9BWX7NADxS7A5EiZoBxQoOEP9LnU8BHPrYwBjFHY9ElO+SLisBYEnQQFeOTPvTTEdIFFcCzx7TpY3X8 J1NOIvXyNkOq5eFGUIHo6+ZBnlbRZyrPowRJIABrB0UXL1XOquNOZFId4K ID Date Data Source [id number] 01/19/2021 01:50:00 PM EDT [facility] Name Value Range Interpretation Code Description Data Tyra rce(s) Supporting Document(s) Consultation [facility] KEDVRi1yCaFTUeFt98/MQZqrUKXxm8SdVOpiPFe5EXteGYWfS4QzDVB2uE6hKDH8CNjTPeTdTtSuNRFm lbm [file] DQogICAgICAgICAgICAgICAgICAgICAgICAgICAgICAgICAgICAgICAgICAgICAgICAgICAgICAgICAg ICAgICAgICAgICAgICAgICAgICAgICAgICAgICAgICAgICAgICAgICAgDQogICAgICAgICAgICAgICAg ICAgICAgICAgICAgICAgICAgICAgICAgICAgICAgIC AgICAgICAgICAgICAgICAgICAgICAgICAgICAgICAgICAgICAgICAgICAgICAgICAgICAgDQogICAgIC AgICAgICAgICAgICAgICAgICAgICAgICAgICAgICAgICAgICAgICAgICAgICAgICAgICAgICAgICAgIC AgICAgICAgICAgICAgICAgICAgICAgICAgICAgICAg ICAgDQogICAgICAgICAgICAgICAgICAgICAgICAgICAgICAgICAgICAgICAgICAgICAgICAgICAgICAg ICAgICAgICAgICAgICAgICAgICAgICAgICAgICAgICAgICAgICAgICAgICAgDQogICAgICAgICAgICAg ICAgICAgICAgICAgICAgICAgICAgICAgICAgICAgIC AgICAgICAgICAgICAgICAgICAgICAgICAgICAgICAgICAgICAgICAgICAgICAgICAgICAgICAgDQogIC AgICAgICAgICAgICAgICAgICAgICAgICAgICAgICAgICAgICAgICAgICAgICAgICAgICAgICAgICAgIC AgICAgICAgICAgICAgICAgICAgICAgICAgICAgICAg ICAgICAgDQogICAgICAgICAgICAgICAgICAgICAgICAgICAgICAgICAgICAgICAgICAgICAgICAgICAg ICAgICAgICAgICAgICAgICAgICAgICAgICAgICAgICAgICAgICAgICAgICAgICAgDQogICAgICAgICAg ICAgICAgICAgICAgICAgICAgICAgICAgICAgICAgIC AgICAgICAgICAgICAgICAgICAgICAgICAgICAgICAgICAgICAgICAgICAgICAgICAgICAgICAgICAgDQ ogICAgICAgICAgICAgICAgICAgICAgICAgICAgICAgICAgICAgICAgICAgICAgICAgICAgICAgICAgIC AgICAgICAgICAgICAgICAgICAgICAgICAgICAgICAg ICAgICAgICAgDQogICAgICAgICAgICAgICAgICAgICAgICAgICAgICAgICAgICAgICAgICAgICAgICAg GOOqWVXqGUAaETSiSUWcYQZyKXAkOFPmHQXuITBuQRXkPULpHHOxVSIbEBPqWPYyOMChYFz4S1miNDLt BNWzBQ1gFJo4Uh9+LHbLZpPyZVB1fzUdpP9FSR5nd8 VwONvuFWOkm6NzMIp4XS1XHPJuPIunPF8NKCkrxh7VOWHoMMNqhPQJy3hnXqAiAYY7BFGoKberGI4NXK VjZ6ajqcZeWEIwEATYADmsWUZSFPoaZKISVPYqDHEbBoRdBoDdPJAlZDDsNOIDJN5LAwXmY4MqlZ36QP YNCj4+BVkvukCjLxhMDsV0LYDza9KoIIb7ND5INCDi Abtct9XcJubjVXEVEXjmSD9RRIB8TXI3YMGcOm4XAVUbB799qfSyBF2LPo1EVdLuPG4jhp1WYaogTBVp ZafUZsl4JGnqMO7AbQDwEUiOw05iwCa1ppMhvXMVpARiYKKyGPlzVMKqEIHUFZRxgWT7SqW1WfNbKdYc GMJ2CXliOT6aMVgdNK4KOEP3ZIerMMTiTVGcV4jJSk MxIZYeDpEfhAhsEC1TYcNsC2ExmzEhrHCmXUWeANOOEb6+RPiqxfVmZtnFGqDdPTLwb4DrRWl5PL5MLS FoDQdgFH6VCDPaeU1dIEfmSH5RPtViAvJmGMKOOlYmZ74hqRFmQDb2N6YbWfOtDRVyCfbrCHToEWorGj FtZXMgWyBdDQogID4+ID4+BOcuIQ0DXRpgjiPrKKYw Vf5WKOUvTJBrBT4dRUWtQHFuQ3Q1wIthTUXPTaBuK6ywysodVP9uMKIvJ125bQzclmBvPRG2STWvGl2X CNAbBVB7TZTmbYJaGjptXOGFLOmmHB7ZvPPsNSH0uV5uNJxzLXWqDNJkV5mBPmMzcHetBB79hEuacrZp bCBdDQo+Zj1ZWC6nm4BuZFa2onNdCGznMYKaCPetPU JoFTJqOIDgXYI9ADM3BPBNCnYxSVNrMLJtSHtnLQVoMMHxof6MPJGoKFWnJlk0WVEgFYUjLHMkIDmiSV SiUFS9UnR5SOLfJSOqHF8PYmCaOSSqTTJvFOlkNGKvZQDoce7CDSKfTYJiAlm3LoLrXPMxYIGyXZurQM GpASUmMDNiRCUjNRIjCC9MTlKeBKIaCQZ5AqukTDIi IIPbpz6QDRXuJLHwOuu9MHZyMCYpAIMuZXhgVLBbXSM0SGn1FAErICBjPD4EKiYmOYRgQDv6IBPtWCFq YWWdtm6SPJXsBSWmMnR7BMDoUISeCIRnABerQJIsRWUzSYG3QFEgCDEsXL9LHmCkDUTkSUR0TvXqBJEt MWXbbq9AOZQiNNGzCvD1ZNTeCIIkLSRkNNkiTIIgJT H3EtKjMYNaTVMaZR1ZXaRjPRTxJMn0YCQeQINlOJJipk1ERZDqTDXcCFg0NaIjTOTeBFDdPClgCCIzKK Y3QVkxCFKjPDUpOO6PLcBoPEByHPrgBFWgCJTqAOKkbc5XSSGaERZqGDUtLBSdLNKeMRFaLQjvGHUjZE DdDaY2AUFaENPeZV6YKiObCTHmSyT7HDItWTZyUZFr qy8JHHOaHXFpZTE4HLKjEYZnBBUdSQjfUFEyROZmCeQqHMRhMMTaKL8BKsYzDTAaSrN4WZAzOMQaMOHb tr8WKABxFXYrRkwdGCXgKDGzJSBbJXjrPAXaUPYyCQR9QOZmIPQuVL4WTdAmQASkFaWiBGUwJSMcOEYo yg5VGLHcUIZiHLR8VlQtFSUnHOWfHFgnWDHiKJD1Kx AzDSSrOQGiKL7LEsGwBTBdSqX1KRKwBEOhIJRaak4ELLYuVPOeYUrdJYRsKHZuYJJkCJxpQANbXQR0Vd LfVQDnKKUyUI0VDgLaXCYfZpJ0AwDyEJKdVESlto0OEIAeBEYtRjagAYEaMVTfKZFnXJynSEXpJNJ4IF B9EZUhTBIqAS4KCoThWUVcHdigVKJzDJMxMHSgfp6N MATgFCAjQCy1RbMvKZRpDKLeIAfdAHYfRGP8MYC4XTYpEPOoYW7BErGaTNQiOip6DATxQCHiDIOphi6M qDXjfUntqh5OQMxLZn0TiZuoQWUbZCngYs5hkGP3RCQzATPXWs7EdxCxMIJrYTTLYYdaKCKtOSKeQ0Dr MVU9Qrx4JKC2A6FmKZKsVUA8MdW5NzIbKbG1GjH4BW N6UIWiWMKwCSB2CTxvWSHsQaKnRzwkARttYOIpQSF+TO1vBBe+Mo8Vz8PircE6ppHoWJiqKFKrTT6PHY UZD6PEBc== ID Date Data Source [id number] 01/19/2021 01:10:15 PM EDT [facility] Name Value Range Interpretation Code Description Data Tyra rce(s) Supporting Document(s) Glucose [Mass/volume] in Capillary blood by Glucometer 133 mg/dL 70- 140 [facility] ID Date Data Source [id number] 01/19/2021 10:13:00 AM EDT [facility] Name Value Range Interpretation Code Description Data Tyra rce(s) Supporting Document(s) SARS-CoV-2 RNA (specific gene not known or reporting a single result based on a combination of tests 2018 nCoV Real-Time RT-PCR: NEGATIVE [facility] This lab was ordered by [facility] and reported by [facility]. ID Date Data Source [id number] 01/22/2021 09:02:49 AM EDT [facility] Name Value Range Interpretation Code Description Data Tyra rce(s) Supporting Document(s) Specimen source [Identifier] of Unspecified specimen [facility] SARS-CoV-2 RNA (specific gene not known or reporting a single result based on a combination of tests) 2018 nCoV Real-Time RT-PCR: NEGATIVE [facility] Assay Performed [facility] Negative results do not preclude SARS-Co V-2 infection and should not be used as the sole basis for patient management decisions. Patients first test for [facility] Patient employed in healthcare setting [facility] Patient has symptoms related to [facility] When did you start to experience these symptoms [Date and time] [Phen X] [facility] Patient was hospitalized because of this condition [facility] patient was admitted to ICU for condition [facility] Patient resides in a congregate care setting [facility] status [facility] ID Date Data Source [id number] [facility] Interpretation Code Description Data Tyra rce(s) Supporting Document(s) Glucose [Mass/volume] in Capillary blood by Glucometer 196 mg/dL 70- 140 H [facility] ID Date Data Source [id number] [facility] Name Value Range Interpretation Code Description Data Tyra rce(s) Supporting Document(s) Leukocytes [#/volume] in Blood by Automated count 10.1 10*3/uL 4-10 H [facility] Erythrocytes [#/volume] in Blood by Automated count 3.51 10*6/uL 4.1- 5.3 L [facility] Hemoglobin [Mass/volume] in Blood 10.0 g/dL 11.5-15.5 [facility] Hematocrit [Volume Fraction] of Blood by Automated count 29.0 % 3 6-45 L [facility] Erythrocyte mean corpuscular volume [Entitic volume] by Auto mated count 82.6 fL 80-96 [facility] Erythrocyte mean corpuscular hemoglobin [Entitic mass] by Automated count 28.4 pg 27-33 [facility] Erythrocyte mean corpuscular hemoglobin concentration [Mass/volume] by Automated count 34.4 g/dL 32.0-36.[facility] width [Ratio] by Automated count 14.7 % 11.5-14.5 H [facility] Platelets [#/volume] in Blood by Automated count 227 10*3/uL 150-400 [facility] Differential cell count method - Blood [facility] Neutrophils/100 leukocytes in Blood by Automated count 76 % [facility] Lymphocytes/100 leukocytes in Blood by Automated count 12 % [facility] Monocytes/100 leukocytes in Blood by Automated count 8 % [facility] Eosinophils/100 leukocytes in Blood by Automated count 3 % [facility] Basophils/100 leukocytes in Blood by Automated count 1 % [facility] Neutrophils [#/volume] in Blood by Automated count 7.79 10*3/uL 1.8-7 .0 H [facility] Lymphocytes [#/volume] in Blood by Automated count 1.23 10*3/uL 1.2-4 .0 [facility] Monocytes [#/volume] in Blood by Automated count 0.76 10*3/uL 0-0.8 [facility] Eosinophils [#/volume] in Blood by Automated count 0.31 10*3/uL 0-0.5 [facility] Basophils [#/volume] in Blood by Automated count 0.06 10*3/uL 0-0.2 [facility] Nucleated erythrocytes/100 leukocytes [Ratio] in Blood by Automated count 0 /100{WBCs} 0-0 [facility] ID Date Data Source [id number] 01/19/2021 06:53:53 AM EDT [facility] Name Value Range Interpretation Code Description Data Tyra rce(s) Supporting Document(s) Bicarbonate [Moles/volume] in Serum 26 mmol/L 22-29 [facility] Chloride [Moles/volume] in Serum or Plasma 95 mmol/L 98-107 L [facility] Creatinine [Mass/volume] in Serum or Plasma 2.17 mg/dL 0.50-0.90 [facility] Glucose [Mass/volume] in Serum or Plasma 227 mg/dL 70-140 [facility] Potassium [Moles/volume] in Serum or Plasma 3.3 mmol/L 3.4-5.1 [facility] Sodium [Moles/volume] in Serum or Plasma 135 mmol/L 136-145 L [facility] Urea nitrogen [Mass/volume] in Serum or Plasma 58 mg/dL 8-23 [facility] Anion gap 3 in Serum or Plasma 14 mmol/L 8-15 [facility] Osmolality of Serum or Plasma by calculation 303 mosm/kg 275-300 H [facility] Creatinine/Urea nitrogen [Mass Ratio] in Serum or Plasma 27 [facility] Calcium [Mass/volume] in Serum or Plasma 9.5 mg/dL 8.8-10.2 [facility] Glomerular filtration rate/1.73 sq M pre dicted among non-blacks [Volume Rate/Area] in Serum or Plasma by Creatinine-based formula (MDRD) 22 mL/min/1.73m2 >60 L [facility] Glomerular filtration rate/1.73 sq M pre dicted among blacks [Volume Rate/Area] in Serum or Plasma by Creatinine-based formula (MDRD) 26 mL/min/1.73m2 >60 L [facility] ID Date Data Source [id number] 01/18/2021 10:34:50 PM [facility] Name Value Range Interpretation Code Description Data Tyra rce(s) Supporting Document(s) Glucose [Mass/volume] in Capillary blood by Glucometer 308 mg/dL 70- 140 H [facility] ID Date Data Source [id number] 01/18/2021 05:37:19 PM [facility] Value Range Interpretation Code Description Data Tyra rce(s) Supporting Document(s) Glucose [Mass/volume] in Capillary blood by Glucometer 157 mg/dL 70- 140 H [facility] ID Date Data Source [id number] 01/18/2021 12:33:20 PM [facility] Value Range Interpretation Code Description Data Tyra rce(s) Supporting Document(s) Glucose [Mass/volume] in Capillary blood by Glucometer 229 mg/dL 70- 140 H [facility] ID Date Data Source [id number] 01/18/2021 09:10:33 AM [facility] Value Range Interpretation Code Description Data Tyra rce(s) Supporting Document(s) [facility] KMBVRv4jZvJIUzEy04/QHJifGPHnm7HvFPaaOVy2DTgySLVfL5ZyQAI0xO8bMMP6MJpANrYsBiZvGOFt m [file] 2k8/0FH6h/CCZrUblVpYHS95MRFcsdhVdmtF2zg2rRKVZ4J9d1xXt/Wp+h79Q+E4afBkoWd/ckP9g/VACUUM 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 [file] ICAgICAgICAgICAgICAgICAgICAgICAgICAgICAgIC AgICAgICAgICAgICAgICAgICAgICAgICAgICAgICAgICAgDQogICAgICAgICAgICAgICAgICAgICAgIC AgICAgICAgICAgICAgICAgICAgICAgICAgICAgICAgICAgICAgICAgICAgICAgICAgICAgICAgICAgIC AgICAgICAgICAgICAgICAgDQogICAgICAgICAgICAg ICAgICAgICAgICAgICAgICAgICAgICAgICAgICAgICAgICAgICAgICAgICAgICAgICAgICAgICAgICAg ICAgICAgICAgICAgICAgICAgICAgICAgICAgDQogICAgICAgICAgICAgICAgICAgICAgICAgICAgICAg ICAgICAgICAgICAgICAgICAgICAgICAgICAgICAgIC AgICAgICAgICAgICAgICAgICAgICAgICAgICAgICAgICAgICAgDQogICAgICAgICAgICAgICAgICAgIC AgICAgICAgICAgICAgICAgICAgICAgICAgICAgICAgICAgICAgICAgICAgICAgICAgICAgICAgICAgIC AgICAgICAgICAgICAgICAgICAgDQogICAgICAgICAg ICAgICAgICAgICAgICAgICAgICAgICAgICAgICAgICAgICAgICAgICAgICAgICAgICAgICAgICAgICAg ICAgICAgICAgICAgICAgICAgICAgICAgICAgICAgDQogICAgICAgICAgICAgICAgICAgICAgICAgICAg ICAgICAgICAgICAgICAgICAgICAgICAgICAgICAgIC AgICAgICAgICAgICAgICAgICAgICAgICAgICAgICAgICAgICAgICAgDQogICAgICAgICAgICAgICAgIC AgICAgICAgICAgICAgICAgICAgICAgICAgICAgICAgICAgICAgICAgICAgICAgICAgICAgICAgICAgIC AgICAgICAgICAgICAgICAgICAgICAgDQogICAgICAg ICAgICAgICAgICAgICAgICAgICAgICAgICAgICAgICAgICAgICAgICAgICAgICAgICAgICAgICAgICAg ICAgICAgICAgICAgICAgICAgICAgICAgICAgICAgICAgDQogICAgICAgICAgICAgICAgICAgICAgICAg ICAgICAgICAgICAgICAgICAgICAgICAgICAgICAgIC AsYTLgYTCmZJCtPHAjIUJoNBIsGWXuRXZxJPAbNWYvIWPrYTXxJWBdYJRbWRp0A7hnJQIlJJNvGU7mUJ d3Jz8+ZEhHCdDdZJX5rkXtwY1DUV8px3RbZEehFVJdq1LaPFk0KQ4PGHPeOXfcGX3IXPnjxy4YYZGsVM SvfYPIp7zpNvOkOOL3VZPbRorcWC8NXWRvR3qydiMg OPCfYTOBYHbjLNPGJDarOXJUCUIwEEAdYoLnOlAkXEVnTLZiWIAXORE7WBArCiXnSEymRB3La3KbdCL5 DQo+Up4WEC3pg5JkERr4IcKoPF8tgx2UKZmCVkFhT6SrveS1EAJqEVWbHc1ONKCkVJNcbHH8IoLaJPQK MxMmX4JyaF67PDKZRm7+DQplbmRvYmoNCjQzIDAgb2 WkIPh2RG8ULTScLCg5mLWqC61kd7WtjEClPufrUdYoVYZAM7msfbotSBNKOJLxqXM0RdP9JsTeXsJlYY J8CBpiMC7fVWevET2HTUL8DWuxMJGmVXCxZ2oIWqTdTDKsFfCccOvcOS2UUmIbL4PytsRaqCS5OyDpOC INCj4+SGluzjCgKtiEWxZ2SDNmu3OlANr0CN0IEKCu ETmlWG5QYOYdbK2tFZmqXY4QNvF2DVYjJWHGWpFpL47vkNHjARz8J8XpLgRaWBIhByicFYHlOWmnHhEt ZXMgWyBdDQogID4+ID4+USdhRB2DBRlegnNsYGAdAa6EDJQyREHhFD0jXAEyOUSuE8D4tLufSGRHWvJc T9jiuifcJW6zHBMdI707tJsyyzFiNNQyMQBsXc6YGF SzFMF4AYLdkACbGIVxYJQIRQzwPY6BsAUzMKZ1yY0lVKkrKBDoYVNiZ3aNRzToqNdnPL47xHingdEikN BdDQo+Uh1TFL4do1RlVPj3khIkHEnmQJU8NJytMKGqQRRnBLSeHRE7KYK0TYXQQqNwZSOqLZUmCCtcWQ YtQJDpkv5RVTRoXDL0PKDzKIQlEHLaWXQqMAplJIBh UFD0VHlkBWKtWUYfSB6EKsPpZYWoZGMoWHeaCTQuFJKrwe8BYRWpVLUpCul0HnRlXCRjIWMeDVtvTREn JAT4DCWaZCDrMPKfLS6FDaEyAGFjLLC5MgQmTJMpONPrnu2GTRUwHWHvOpetDcQaGKXeBJNpWBemGBQn GPSxQsL9CFPaGUYoNF5FOaTmEHMwFHR2NMxnLAPvYH Lbab7NOAIfRGBlReZ3IMEqBEUaAKKjEGifYMKtRHJdXGswBUKqZFCzHN4VXpZqMBKsDBL6NMKcAEVqIO Flwf3TXKMySKCoVzO2TMBhYRGaYZYtFXosJQHuGCMoVpTfUXIgGVMsJA8KGzOcNJInEkQ3PhpePPGuDX Qmjp7VRHYgGFSqVnJmMXTeUXIhQTSsUFmrCJKbCLRw OdQcKFAnQXPcWH5NVsYaSGWhKmLjMHQvPWWiHKDfon1IWMAdMMStHPM7SFHaIFWnYZBaWNtpISSmJUD5 GEhxBWEnWVRtLZ2HUaSjEHCqBiF7SeRiMBAiNIOxgn9DTFPwCBYvAVujLdGhPRTpAFHrHQdeBKExACD4 UDAgURCqRLGcYN7OFsKtELJgZnW9RUEeVCIwDMHdxa 2NCVWtGWHrCmA9TvKfLNGnOOZqUJueBYCiGPJ7FtGrWZTdRHTtUI9ZYxOjGVDmRcscWXchQNTcIAZquh 0EIXHtLJHtDIVzPPUgYIJcSGYhZFalWHVvZUE5FjI5TJHeEFGjRT6HZiPkLACcIVDjJYayWEKqWKBvku 1HDBQvLQA3HWC1FpRyFVBgLKOqZZoaSMLsAKHfIBnl CMOhHBWiKN5WZoMhQVXwADQ4TzSgGKDjYAAtat3BMAWoKVI7SBl7KmFsXLRrXUKdDMedFEBbBGBqUoue WOKgJHEpKB3TEvQlWPEuJYM4PVNuTOChSWRrrl6UGSZsIJU1NvdhOyWhPCAuCTOmKSesNLOkQCH7UUAa GDCyNZOpXP9AUcYgVDFbAKWhDPNtVWLhABFhdn7HNI AjBTQ5MFK7YYXdQZMgALKzSBimTZIhJRR5UVM8HYGePMIbKL8FThAcHEKiEXHeTMSbPVQeFEVwbi6LAD VvUWU5FwD5ZFFqYXHhIMAlKQc8jrPsuUDrAIy8CK2DI3CuuoSnZCMGVu5Hk800CLX5IQEvJb6WV2muLm 4tKFHpBXBEAw4DOFm9FFpuEeJ1DXAjAUX1BRA6XaYw OBDwUDO0WVQqARA0ZFP+GZksADP6VYM2MTLdHRo3MMTaKKUcTdXkQDZtSfNdDuq9Hf9vKJLKVf0+DQpz [id number] ID Date Data Source [id number] 01/18/2021 08:50:30 AM EDT [facility] Value Range Interpretation Code Description Data Tyra rce(s) Supporting Document(s) Glucose [Mass/volume] in Capillary blood by Glucometer 205 mg/dL 70- 140 H [facility] ID Date Data Source [id number] 01/18/2021 04:56:26 AM EDT [facility] Value Range Interpretation Code Description Data Tyra rce(s) Supporting Document(s) Parathyrin.intact [Mass/volume] in Serum or Plasma 117 pg/mL 15-65 H [facility] ID Date Data Source [id number] 01/18/2021 04:30:30 AM EDT [facility] Value Range Interpretation Code Description Data Tyra rce(s) Supporting Document(s) Leukocytes [#/volume] in Blood by Automated count 9.8 10*3/uL 4-10 [facility] Erythrocytes [#/volume] in Blood by Automated count 3.19 10*6/uL 4.1- 5.3 L [facility] Hemoglobin [Mass/volume] in Blood 9.0 g/dL 11.5-15.5 L [facility] Hematocrit [Volume Fraction] of Blood by Automated count 26.7 % 3 6-45 L [facility] Erythrocyte mean corpuscular volume [Entitic volume] by Auto mated count 83.5 fL 80-96 [facility] Erythrocyte mean corpuscular hemoglobin [Entitic mass] by Automated count 28.3 pg 27-33 [facility] Erythrocyte mean corpuscular hemoglobin concentration [Mass/volume] by Automated count 33.9 g/dL 32.0-36.0 [facility] distribution width [Ratio] by Automated count 14.7 % 11.5-14.5 H [facility] Platelets [#/volume] in Blood by Automated count 185 10*3/uL 150-400 [facility] Differential cell count method - Blood [facility] Neutrophils/100 leukocytes in Blood by Automated count 77 % [facility] Lymphocytes/100 leukocytes in Blood by Automated count 13 % [facility] Monocytes/100 leukocytes in Blood by Automated count 6 % [facility] Eosinophils/100 leukocytes in Blood by Automated count 3 % [facility] Basophils/100 leukocytes in Blood by Automated count 1 % [facility] Neutrophils [#/volume] in Blood by Automated count 7.60 10*3/uL 1.8-7 .0 H [facility] Lymphocytes [#/volume] in Blood by Automated count 1.23 10*3/uL 1.2-4 .0 [facility] Monocytes [#/volume] in Blood by Automated count 0.54 10*3/uL 0-0.8 [facility] Eosinophils [#/volume] in Blood by Automated count 0.32 10*3/uL 0-0.5 [facility] Basophils [#/volume] in Blood by Automated count 0.08 10*3/uL 0-0.2 [facility] Nucleated erythrocytes/100 leukocytes [Ratio] in Blood by Automated count 0 /100{WBCs} 0-0 [facility] ID Date Data Source [id number] 01/18/2021 04:37:52 AM EDT [facility] Name Value Range Interpretation Code Description Data Tyra rce(s) Supporting Document(s) Bicarbonate [Moles/volume] in Serum 23 mmol/L 22-29 [facility] Chloride [Moles/volume] in Serum or Plasma 99 mmol/L 98-107 [facility] Creatinine [Mass/volume] in Serum or Plasma 2.33 mg/dL 0.50-0.90 H [facility] Glucose [Mass/volume] in Serum or Plasma 237 mg/dL 70-140 H [facility] Potassium [Moles/volume] in Serum or Plasma 3.5 mmol/L 3.4-5.1 [facility] Sodium [Moles/volume] in Serum or Plasma 132 mmol/L 136-145 L [facility] Urea nitrogen [Mass/volume] in Serum or Plasma 67 mg/dL 8-23 H [facility] Anion gap 3 in Serum or Plasma 9 mmol/L 8-15 [facility] Osmolality of Serum or Plasma by calculation 301 mosm/kg 275-300 H [facility] Creatinine/Urea nitrogen [Mass Ratio] in Serum or Plasma 29 [facility] Calcium [Mass/volume] in Serum or Plasma 9.0 mg/dL 8.8-10.2 [facility] Glomerular filtration rate/1.73 sq M pre dicted among non-blacks [Volume Rate/Area] in Serum or Plasma by Creatinine-based formula (MDRD) 20 mL/min/1.73m2 >60 L [facility] Glomerular filtration rate/1.73 sq M pre dicted among blacks [Volume Rate/Area] in Serum or Plasma by Creatinine-based formula (MDRD) 24 mL/min/1.73m2 >60 L [facility] ID Date Data Source [id number] 01/17/2021 09:29:12 PM [facility] Name Value Range Interpretation Code Description Data Tyra rce(s) Supporting Document(s) Glucose [Mass/volume] in Capillary blood by Glucometer 284 mg/dL 70- 140 H [facility] ID Date Data Source [id number] 01/17/2021 09:31:36 PM [facility] Value Range Interpretation Code Description Data Tyra rce(s) Supporting Document(s) Leukocytes [#/volume] in Blood by Automated count 9.8 10*3/uL 4-10 [facility] Erythrocytes [#/volume] in Blood by Automated count 3.11 10*6/uL 4.1- 5.3 L [facility] Hemoglobin [Mass/volume] in Blood 9.0 g/dL 11.5-15.5 [facility] Hematocrit [Volume Fraction] of Blood by Automated count 25.9 % 3 6-45 L [facility] Erythrocyte mean corpuscular volume [Entitic volume] by Auto mated count 83.1 fL 80-96 [facility] Erythrocyte mean corpuscular hemoglobin [Entitic mass] by Automated count 28.8 pg 27-33 [facility] Erythrocyte mean corpuscular hemoglobin concentration [Mass/volume] by Automated count 34.7 g/dL 32.0-36.0 [facility] Erythrocyte distribution width [Ratio] by Automated count 14.5 % 11.5-14.5 [facility] Platelets [#/volume] in Blood by Automated count 169 10*3/uL 150-400 [facility] ID Date Data Source [id number] 01/17/2021 05:32:09 PM [facility] Value Range Interpretation Code Description Data Tyra rce(s) Supporting Document(s) Glucose [Mass/volume] in Capillary blood by Glucometer 286 mg/dL 70- 140 [facility] ID Date Data Source [id number] 01/17/2021 12:21:19 PM [facility] Value Range Interpretation Code Description Data Tyra rce(s) Supporting Document(s) Glucose [Mass/volume] in Capillary blood by Glucometer 314 mg/dL 70- 140 [facility] ID Date Data Source [id number] 01/17/2021 08:46:18 AM [facility] Value Range Interpretation Code Description Data Tyra rce(s) Supporting Document(s) Glucose [Mass/volume] in Capillary blood by Glucometer 311 mg/dL 70- 140 [facility] ID Date Data Source [id number] 01/17/2021 07:29:51 AM [facility] Value Range Interpretation Code Description Data Tyra rce(s) Supporting Document(s) Troponin T.cardiac [Mass/volume] in Serum or Plasma 0.25 ng/mL <0.01 [facility] No Significant Change Since Last Result Called ID Date Data Source [id number] 01/17/2021 07:55:13 AM EDT [facility] Name Value Range Interpretation Code Description Data Tyra rce(s) Supporting Document(s) Bicarbonate [Moles/volume] in Serum 21 mmol/L 22-29 L [facility] Chloride [Moles/volume] in Serum or Plasma 96 mmol/L 98-107 L [facility] Creatinine [Mass/volume] in Serum or Plasma 2.62 mg/dL 0.50-0.90 H [facility] Glucose [Mass/volume] in Serum or Plasma 330 mg/dL 70-140 H [facility] Potassium [Moles/volume] in Serum or Plasma 3.7 mmol/L 3.4-5.1 [facility] Sodium [Moles/volume] in Serum or Plasma 131 mmol/L 136-145 L [facility] Urea nitrogen [Mass/volume] in Serum or Plasma 69 mg/dL 8-23 H [facility] Anion gap 3 in Serum or Plasma 14 mmol/L 8-15 [facility] Osmolality of Serum or Plasma by calculation 305 mosm/kg 275-300 H [facility] Creatinine/Urea nitrogen [Mass Ratio] in Serum or Plasma 26 [facility] Calcium [Mass/volume] in Serum or Plasma 8.4 mg/dL 8.8-10.2 L [facility] Glomerular filtration rate/1.73 sq M pre dicted among non-blacks [Volume Rate/Area] in Serum or Plasma by Creatinine-based formula (MDRD) 18 mL/min/1.73m2 >60 L [facility] Glomerular filtration rate/1.73 sq M pre dicted among blacks [Volume Rate/Area] in Serum or Plasma by Creatinine-based formula (MDRD) 21 mL/min/1.73m2 >60 [facility] ID Date Data Source [id number] 01/17/2021 07:58:27 AM EDT [facility] Value Range Interpretation Code Description Data Tyra rce(s) Supporting Document(s) Leukocytes [#/volume] in Blood by Automated count 9.0 10*3/uL 4-10 [facility] Erythrocytes [#/volume] in Blood by Automated count 2.57 10*6/uL 4.1- 5.3 [facility] Hemoglobin [Mass/volume] in Blood 7.4 g/dL 11.5-15.5 [facility] Hematocrit [Volume Fraction] of Blood by Automated count 21.8 % 3 6-45 [facility] Erythrocyte mean corpuscular volume [Entitic volume] by Auto mated count 84.8 fL 80-96 [facility] Erythrocyte mean corpuscular hemoglobin [Entitic mass] by Automated count 28.7 pg 27-33 [facility] Erythrocyte mean corpuscular hemoglobin concentration [Mass/volume] by Automated count 33.8 g/dL 32.0-36.0 [facility] Erythrocyte distribution width [Ratio] by Automated count 13.9 % 11.5-14.5 [facility] Platelets [#/volume] in Blood by Automated count 160 10*3/uL 150-400 [facility] Differential cell count method - Blood [facility] Neutrophils/100 leukocytes in Blood by Automated count 79 % [facility] Lymphocytes/100 leukocytes in Blood by Automated count 16 % [facility] Monocytes/100 leukocytes in Blood by Automated count 3 % [facility] Eosinophils/100 leukocytes in Blood by Automated count 1 % [facility] Neutrophils [#/volume] in Blood by Automated count 7.09 10*3/uL 1.8-7 .0 H [facility] Lymphocytes [#/volume] in Blood by Automated count 1.47 10*3/uL 1.2-4 .0 [facility] Monocytes [#/volume] in Blood by Automated count 0.26 10*3/uL 0-0.8 [facility] Eosinophils [#/volume] in Blood by Automated count 0.09 10*3/uL 0-0.5 [facility] Metamyelocytes/100 leukocytes in Blood by Manual count 1 % [facility] Metamyelocytes [#/volume] in Blood by Manual count 0.09 10*3/uL 0-0 [facility] ID Date Data Source [id number] 01/17/2021 03:09:09 AM [facility] Name Value Range Interpretation Code Description Data Tyra rce(s) Supporting Document(s) Troponin T.cardiac [Mass/volume] in Serum or Plasma 0.25 ng/mL <0.01 [facility] No Significant Change since last result called ID Date Data Source [id number] 01/17/2021 02:49:17 AM [facility] Name Value Range Interpretation Code Description Data Tyra rce(s) Supporting Document(s) Leukocytes [#/volume] in Blood by Automated count 9.4 10*3/uL 4-10 [facility] Erythrocytes [#/volume] in Blood by Automated count 2.60 10*6/uL 4.1- 5.3 L [facility] Hemoglobin [Mass/volume] in Blood 7.5 g/dL 11.5-15.5 L [facility] Hematocrit [Volume Fraction] of Blood by Automated count 21.9 % 3 6-45 L [facility] Erythrocyte mean corpuscular volume [Entitic volume] by Auto mated count 84.2 fL 80-96 [facility] Erythrocyte mean corpuscular hemoglobin [Entitic mass] by Automated count 28.8 pg 27-33 [facility] Erythrocyte mean corpuscular hemoglobin concentration [Mass/volume] by Automated count 34.2 g/dL 32.0-36.0 [facility] Erythrocyte distribution width [Ratio] by Automated count 13.9 % 11.5-14.5 [facility] Platelets [#/volume] in Blood by Automated count 167 10*3/uL 150-400 [facility] Differential cell count method - Blood [facility] Neutrophils/100 leukocytes in Blood by Automated count 72 % [facility] Lymphocytes/100 leukocytes in Blood by Automated count 16 % [facility] Monocytes/100 leukocytes in Blood by Automated count 7 % [facility] Eosinophils/100 leukocytes in Blood by Automated count 4 % [facility] Basophils/100 leukocytes in Blood by Automated count 1 % [facility] Neutrophils [#/volume] in Blood by Automated count 6.84 10*3/uL 1.8-7 .0 [facility] Lymphocytes [#/volume] in Blood by Automated count 1.46 10*3/uL 1.2-4 .0 [facility] Monocytes [#/volume] in Blood by Automated count 0.66 10*3/uL 0-0.8 [facility] Eosinophils [#/volume] in Blood by Automated count 0.35 10*3/uL 0-0.5 [facility] Basophils [#/volume] in Blood by Automated count 0.09 10*3/uL 0-0.2 [facility] Nucleated erythrocytes/100 leukocytes [Ratio] in Blood by Automated count 0 /100{WBCs} 0-0 [facility] ID Date Data Source [id number] 01/16/2021 08:25:58 PM EDT [facility] Name Value Range Interpretation Code Description Data Tyra rce(s) Supporting Document(s) Glucose [Mass/volume] in Capillary blood by Glucometer 299 mg/dL 70- 140 H [facility] ID Date Data Source [id number] 01/16/2021 08:44:17 PM EDT [facility] Name Value Range Interpretation Code Description Data Tyra rce(s) Supporting Document(s) Troponin T.cardiac [Mass/volume] in Serum or Plasma 0.25 ng/mL <0.01 [facility] No Significant Change since last result called ID Date Data Source [id number] 01/16/2021 05:39:45 PM EDT [facility] Value Range Interpretation Code Description Data Tyra rce(s) Supporting Document(s) Glucose [Mass/volume] in Capillary blood by Glucometer 331 mg/dL 70- 140 [facility] ID Date Data Source [id number] 01/16/2021 03:22:23 PM EDT [facility] Value Range Interpretation Code Description Data Tyra rce(s) Supporting Document(s) ED Provider Note [facility] EBEDMs1wSeCHOyZq21/YRVzjYRCiy2FtCUohXMq7CEplEUHaR4FjWTK7xZ9uMHS3UIfDXsUyIqNtNKU7 lbm [file] ICAgICAgICAgICAgICAgICAgICAgICAgICAgICAgIC AgICAgICAgICAgICAgICAgICAgICAgICAgICAgICAgICAgICAgICAgICANCiAgICAgICAgICAgICAgIC AgICAgICAgICAgICAgICAgICAgICAgICAgICAgICAgICAgICAgICAgICAgICAgICAgICAgICAgICAgIC AgICAgICAgICAgICAgICAgICAgICAgICANCiAgICAg ICAgICAgICAgICAgICAgICAgICAgICAgICAgICAgICAgICAgICAgICAgICAgICAgICAgICAgICAgICAg ICAgICAgICAgICAgICAgICAgICAgICAgICAgICAgICAgICANCiAgICAgICAgICAgICAgICAgICAgICAg ICAgICAgICAgICAgICAgICAgICAgICAgICAgICAgIC AgICAgICAgICAgICAgICAgICAgICAgICAgICAgICAgICAgICAgICAgICAgICANCiAgICAgICAgICAgIC AgICAgICAgICAgICAgICAgICAgICAgICAgICAgICAgICAgICAgICAgICAgICAgICAgICAgICAgICAgIC AgICAgICAgICAgICAgICAgICAgICAgICAgICANCiAg ICAgICAgICAgICAgICAgICAgICAgICAgICAgICAgICAgICAgICAgICAgICAgICAgICAgICAgICAgICAg ICAgICAgICAgICAgICAgICAgICAgICAgICAgICAgICAgICAgICANCiAgICAgICAgICAgICAgICAgICAg ICAgICAgICAgICAgICAgICAgICAgICAgICAgICAgIC AgICAgICAgICAgICAgICAgICAgICAgICAgICAgICAgICAgICAgICAgICAgICAgICANCiAgICAgICAgIC AgICAgICAgICAgICAgICAgICAgICAgICAgICAgICAgICAgICAgICAgICAgICAgICAgICAgICAgICAgIC AgICAgICAgICAgICAgICAgICAgICAgICAgICAgICAN CiAgICAgICAgICAgICAgICAgICAgICAgICAgICAgICAgICAgICAgICAgICAgICAgICAgICAgICAgICAg ICAgICAgICAgICAgICAgICAgICAgICAgICAgICAgICAgICAgICAgICANCiAgICAgICAgICAgICAgICAg ICAgICAgICAgICAgICAgICAgICAgICAgICAgICAgIC AgICAgICAgICAgICAgICAgICAgICAgICAgICAgICAgICAgICAgICAgICAgICAgICAgICANCjw/eHBhY2 tlqKMvdiQ3W0vbVm4JZc7QXO1yu2MmAPFoZJpgodVuJzvUMlPcTHCiBzwFGom9JGypRY3JoODvA3IiZ3 QxSNjpAK1UFCKtPXUlmEKsLECwCCZiGhO1DKKrDAxx NV4HxOCoBEivEHLmNHSeCiInOGDqHNXeOXSvXGKxWPAHKIDyYLJmKyVgFZMePOQzOFwoHKQQMFA4LPWo OwBuHVxqII0Ya8MdlRI3HEh+Pf9BLR9bf3EoNRcqDiXzKJ4wko0EVTzIXmWdO0WtrbY7GQB9ABOnDu0J SOInEOYaeNL8OOIbPQMUReXcS7NxkZ56AZUBOb2+DQ nbxzNsLduJSxP5BWMgh5VyEDc5MV7LGKIiSRf8fGJhBXHqQJEjnmfuKCJxOn62AXFcAqcvFimzSHSCQH 2tzZAgz1W2HSXWWaLcmWY6VnC2ElYuLoEpXVN9BLlbLH9aLVbjIU0RMPQ2LJkiVQLaBRAuN3vJAlJnPP jlGOXxfCfzTH7RNhZoI1HoabXboNYjBaKkLIMXOrQy H39atOAxFqrmIMBXWQk+Jg3NSX8ut3AqAUcpPJSmPQ8kol6USFqBMwPsG3GbiWqiXOJFKAKap4KoYGWt KS5cmAKaKXM0JWMdUDWjLWLyTYk3YJTpgFjmQX3mOYIgCH3aBu8nONMxNMI2DmO5QQEOSH5VCSZnRYBx eXOfFMHxICEdBbVpKHmyTFLgGhH2JS05dIpdTG3ZRT GaXTWkNG58QYP3ZQWpSe5LJARvKOSkmwFwViSkTYZNTmGkJ13wcQGeVnleAFKNNDg+Uk4RPN1ez3FiLB ekVPGdMP7pbf9CNJdITwLdF1UjeWrrQUMPRM5xhVGpOVH8OSjtwTistphzDVQUXBBvTSAqo83uDECYAP D1SXVhIAPqVbRgCHTwXIh4JgOHFAgILrVyM1Tfj3Mg QgWiWESkZQTbN7fGKoRcWKP1SUKyeXnwCH5OXoJpD5GhrsHmeWPyDsKkIVSRByTyX6NmJXTlMcjwSYBO DMpiUE9YVOc8ADMsAXCmIo6GPy4SCpQpBY0ihm0MRNWqXMAqBhlZDdn1LYbgPM9GkYAaDZiWDSEYlcit A3ToBf21FWIvUpubKCEzlZAaQSKFHPXghQBhSSDFCW J7GUNiHLWbQaGvEVTrGfzsTUGMKMqBHvNjC3Xxr2MhYgAwKKLqEIScQ0hFIgBrGVR5YjNisZssKB5NZd LaU7IlpyPrwUBpWaBhPCWQVhTwO4SnDSLlWgqmUDQGBKxnFC6KXHo2IFFwOIHxBk5SLh3MGsIkWI2luh 5TGHAvCXBgUptRCwj4PIqzNW0OdXDqQFeGOPWRo6Ii nvRyjXPDUKStcJLCCGWihXSoKJKVToLqjBD6HpH5YqBcOwElXYU1XYkmEE7oXYcmDN9YNLE9DJagVYih BZVLND6POOupZZTnLHTmgsSmfZAwBWcjQY6DFKPoipKbWdSfJIEWZMqmSG4SxaD6CUHpXKYqJb1NVu0O XoGgHV6icb8XOTYlZEShCxdSJdx5KXufLA6FiZYgX1 YnkQKxt8tAOrCnD6MKOHQ4TCNuCn6BGFIlEsDdJBIpJLtnXT2uTWSyESSWcVodqsK9IB4AQP4ofeTmGB 1MIrPqCz0mUy7YQzOuM0VwP8JeILAnNZONJTfkOA0GVKboVU3fGZ0Zs2GFpOManU7uot3BYLYvLHRmFh nxkw1BKoubD5I8vByyWSJcQbFmISZSFTelOH6BYAYe LFV2ZPJpHKRwBVVIAdFjZ27gHC9QQ7Yhy75kGbI4CICmFpYzRHezPF89pUwwqeHscHAndVhvWY6JVb4+ FEdocyGsPafXNxkdNOURPrWfLJXMVlJcFOGjSZSeYMEwZyV2WsDqMm3TEQYwAGAiUPKoUgAyRELnRZZo TBhwNIRoCMNlYsM4OLExWILvFA8DMkHlJKMuLCCxHe GbBXHbBQFsxw6ZLJTuLKEuKFE2TzPfLGExBVKeMKhhFOQxNWUvBuUkKCJkEJPpKX4PQaNgHCFtBGA7Ox ZcCDQsRPDfom6KCPSdDWPgQWJ1THIbDOVaTTBwZEfhFXKbNNE4Oiv7RHEfFCOlXK3DRaSgABJbMKg6GX agCSTgTLLzho2PWEKbOZBsGPRkRiIiWTKzCMLiYVkq SACtITIvCFM7UUYdADNsKW7UJnApPFVdYOXbJZJmHFTfROIufz7QBYJwVVZpOXv6VGDvITDiQBSyAZll MGEgMAK1DWq0VSBtGVNeID0ETvVmBFFrABs4FIjoUUSbTQEnjn8NEWGoHHOhHvjrIWOyUTVxQDBjLCdp WXLzADNwEJZ4MEJmOGXfZO4JLhIhXBZsChRfDyFvWI KpVTBzxz3VMJDpJMJmCgldGVBwOKEpYJIxCNpfZMFsDHCdMQC3MHZqCZCnMG7IFcIpODDgHpM7RaLyAA XmNPDwpw8ONLKhDUYsSHZ0EjChHFTkXEAvQZamXCWwFTT2NbP6RBLzMYGkTA9QOgCvCOIoGmBkUGOgFA HbFXYtuk2NDOOnPOZbKaBzUeLxJTEsJQNfOJiwXSDg QGP9HtT5UCLoKLVwDN7KQvPnMFHyVtn3VkMgXULaCTNvau2RSHOjQSGvHdq3GCUuQVRaAYAtGGvxZJEd DZC5VVD7OSTnSRGsTR3PKfWrJLKbPlynOcIsQVMqFYApqk0TXOKdBDGgJUO5QNIyDLRqICYqLPukKDZe SEE3WNM2LJLhHUHeCK1GOzWyVYPtYAHjRBidNTTsDJ Tire1GMWZlWVP1FTPiKHNkGJSyTCCoUTfwHFRqFWHeJsTrQGLzHILsGD1OSkTjGXDzLYNhZEZpHBDfGR Zwkd3TPVAxDZM2SxV7WtCzCVJcTRKrVSrgQFOqXQUyCLB9WBAwDIKuXQ9DUaLlBLPpZYW2PsGjPKMyBZ Nrqw0SXIClSYQ7MnhlLeUuDRLiGHUiPGwtKNCyEXIc NUv8AAGcBXLcMZ5EKfDeETMwZHLbCSBjGQTqHTFpzh5ApBEldBqkjh7GCKjWEs5QxRsfFOEgDRibYe5s fFK1QiXsQCULHo5GakDnCLClCEABBBhtJEGtSBkmB5M3OVL5ODLaVXMmUsInECQ5HMq6MQZ7VFDoJDFx VeP8SpItBHIgKixjJIMaIUG6NSZmObarHMC1TcUoOJ I5MTE+LS1rZWa+Fd7Iw5KkskN4vgZvPPk9ThN0IO3IYHFEM2ZQYi== ID Date Data Source [id number] 01/16/2021 12:56:16 PM T [facility] Name Value Range Interpretation Code Description Data Tyra rce(s) Supporting Document(s) [facility] VAZXRc7dAoBPBjPzr8VxHvBrADUlBJ8trnx2U0R6rFEmL0YpvLPln6caG8ZiU5EzKRYaUZELNY0NtHAf jb2 [file] QCCh+60o+FfoP7BLKntlys9cdlhq8gLobueqXoma/5T/urTV7Z//0f4Jw8n3q6//9//0z7+q/fP//long-term +Pvvn//+Pvxf//pv/+Nf/81//E//9Fb++Y//81//3X/8q/79rAot//Us7fO/bW3/8z//9/8yK/9U//vn P/1zHm3+/fvvf/6Xf/bWUWThARTL7oKbEkG4WT7Oow BpzppmzmTCjUiZSxBvRRKLUgaJeIXJYxSnVnMrEJi6uXoOXh0u8dSHy6v46WNnKk01cclWl34u67OoL3 m5NqgHst5ejlAdX9paSulPeEcOrrBh9jWaRSu2eGfRWc4d5eMQm1c27HFcVuX0fpbXuU2k4iFd65r9Ze g8dg3Iyk8c14ZbP+o2aPdObd4tQtJuMj9u89IIm2Ur Hb2t62JLl3BqmvtJHSVkm0aE8CLjq4Afg1e91YFgb5Hbw2o12XXmy0Efz8q66QAcuTEQBvzLxRihjLc7 edZrQq+E9CoUv7m3TjUfJg6IlMjEa3QnqzXr9Tn+rEKz1JFqO9yUnNyUFoycbaUGicrf9EReLug4cjhG xi2c35Ou60m6Skg0lkVtKq1Mzs13vjHuV0+t9xxJk2 j4NlNkHk4WgPoRf5QjovXf0HkfhWe64q/bkkdJz2kadwz3/MzNhZNz+BmmG7ni5hW/C08Q1NjIFyabc5 6zXSsUq22NzoTpAh81ZiBkbuSLKVF+9Bea0ZuISAffd8MMQjgvJueX/HKRREZ+6AwePt40uDWS0V7KQh lJavvlWols/ehJWlJ/eEklMak/zKSSmtQfblJJTuoP O6mkJ/LKr2QHbSkMIUaiXv9xQWHbxaAtRrwp8D+qXFy6r7sDWkV7a4TmmUq5DTsDyJP+8JVKwlJ/GEsl Agry/lBGZySFs3eVJB+lKf1dhDeCUzFIXa/rDXSrJS/9kG5N6tk2ep3yJA52WWVWWyS6xtqZV0G3BG4iv [file] Xs5k8Mn253yWeCCr0thVpjmrDT3W+AvWsMdiwRPP+[employer]+2uL0tSRhStgMrHKxZ2KkQ9nQA9WTgbXRewR [file] umG2rzLiLue8FQzdKhHpKP6Y ID Date Data Source [id number] 01/16/2021 01:35:16 PM EDT [facility] Name Value Range Interpretation Code Description Data Tyra rce(s) Supporting Document(s) Leukocytes [#/volume] in Blood by Automated count 10.1 10*3/uL 4-10 H [facility] Erythrocytes [#/volume] in Blood by Automated count 2.75 10*6/uL 4.1- 5.3 L [facility] Hemoglobin [Mass/volume] in Blood 7.8 g/dL 11.5-15.5 L [facility] Hematocrit [Volume Fraction] of Blood by Automated count 23.3 % 3 6-45 L [facility] Erythrocyte mean corpuscular volume [Entitic volume] by Auto mated count 84.8 fL 80-96 [facility] Erythrocyte mean corpuscular hemoglobin [Entitic mass] by Automated count 28.5 pg 27-33 [facility] Erythrocyte mean corpuscular hemoglobin concentration [Mass/volume] by Automated count 33.6 g/dL 32.0-36.0 [facility] distribution width [Ratio] by Automated count 13.8 % 11.5-14.5 [facility] Platelets [#/volume] in Blood by Automated count 171 10*3/uL 150-400 [facility] Differential cell count method - Blood [facility] Neutrophils/100 leukocytes in Blood by Automated count 74 % [facility] Lymphocytes/100 leukocytes in Blood by Automated count 16 % [facility] Monocytes/100 leukocytes in Blood by Automated count 6 % [facility] Eosinophils/100 leukocytes in Blood by Automated count 3 % [facility] Basophils/100 leukocytes in Blood by Automated count 1 % [facility] Neutrophils [#/volume] in Blood by Automated count 7.51 10*3/uL 1.8-7 .0 H [facility] Lymphocytes [#/volume] in Blood by Automated count 1.58 10*3/uL 1.2-4 .0 [facility] Monocytes [#/volume] in Blood by Automated count 0.61 10*3/uL 0-0.8 [facility] Eosinophils [#/volume] in Blood by Automated count 0.28 10*3/uL 0-0.5 [facility] Basophils [#/volume] in Blood by Automated count 0.07 10*3/uL 0-0.2 [facility] Nucleated erythrocytes/100 leukocytes [Ratio] in Blood by Automated count 0 /100{WBCs} 0-0 [facility] ID Date Data Source [id number] [facility] Value [facility] Interpretation Code Description Data Tyra rce(s) Supporting Document(s) Erythrocyte sedimentation rate 54 mm/hr <30 H [facility] ID Date Data Source [id number] 01/16/2021 02:35:52 PM [facility] Name Value Range Interpretation Code Description Data Tyra rce(s) Supporting Document(s) Albumin [Mass/volume] in Serum or Plasma by Bromocresol green (BCG) dye binding method 3.4 g/dL 3.5-5.2 L [facility] Bilirubin.total [Mass/volume] in Serum or Plasma 0.4 mg/dL <1.2 [facility] Calcium [Mass/volume] in Serum or Plasma 8.4 mg/dL 8.8-10.2 L [facility] Chloride [Moles/volume] in Serum or Plasma 99 mmol/L 98-107 [facility] Creatinine [Mass/volume] in Serum or Plasma 2.86 mg/dL 0.50-0.90 H [facility] Glucose [Mass/volume] in Serum or Plasma 205 mg/dL 70-140 H [facility] Alkaline phosphatase [Enzymatic activity/volume] in Serum or Plasma 79 U/L 35-104 [facility] Potassium [Moles/volume] in Serum or Plasma 3.7 mmol/L 3.4-5.1 [facility] Protein [Mass/volume] in Serum or Plasma 6.2 g/dL 6.4-8.3 L [facility] Sodium [Moles/volume] in Serum or Plasma 135 mmol/L 136-145 L [facility] Aspartate aminotransferase [Enzymatic activity/volume] in Serum or Plasma 22 U/L <32 [facility] Urea nitrogen [Mass/volume] in Serum or Plasma 59 mg/dL 8-23 H [facility] Osmolality of Serum or Plasma by calculation 302 mosm/kg 275-300 H [facility] Creatinine/Urea nitrogen [Mass Ratio] in Serum or Plasma 21 [facility] Bicarbonate [Moles/volume] in Serum 23 mmol/L 22-29 [facility] Alanine aminotransferase [Enzymatic activity/volume] in Seru m or Plasma 15 U/L <33 [facility] Anion gap 3 in Serum or Plasma 13 mmol/L 8-15 [facility] Glomerular filtration rate/1.73 sq M pre dicted among non-blacks [Volume Rate/Area] in Serum or Plasma by Creatinine-based formula (MDRD) 16 mL/min/1.73m2 >60 L [facility] Glomerular filtration rate/1.73 sq M pre dicted among blacks [Volume Rate/Area] in Serum or Plasma by Creatinine-based formula (MDRD) 18 mL/min/1.73m2 >60 L [facility] ID Date Data Source [id number] 01/16/2021 02:35:52 PM [facility] Value Range Interpretation Code Description Data Tyra rce(s) Supporting Document(s) C reactive protein [Mass/volume] in Serum or Plasma 90.7 mg/L <8.0 H [facility] ID Date Data Source [id number] 01/16/2021 02:35:52 PM [facility] Value Range Interpretation Code Description Data Tyra rce(s) Supporting Document(s) Troponin T.cardiac [Mass/volume] in Serum or Plasma 0.28 ng/mL <0.01 [facility] No Significant Change Since Last Result Called ID Date Data Source [id number] 01/16/2021 01:35:25 PM [facility] Value Range Interpretation Code Description Data Tyra rce(s) Supporting Document(s) Lactate [Moles/volume] in Serum or Plasma 1.2 mmol/l 0.5-2.2 [facility] ID Date Data Source [id number] 01/16/2021 12:14:13 PM [facility] Name Value Range Interpretation Code Description Data Tyra rce(s) Supporting Document(s) Glucose [Mass/volume] in Capillary blood by Glucometer 166 mg/dL 70- 140 H [facility] ID Date Data Source [id number] [facility]:13[facility] [id number] RESU LTInterpreted by:CATINA Reedrocedure: CT scan of [...] rce(s) Supporting Document(s) ID Date Data Source [id number] 01/16/2021 08:46:09 AM [facility] Name Value Range Interpretation Code Description Data Tyra rce(s) Supporting Document(s) [facility] FJGAQw2cQfNNJvZd11/IMAceCUKld0DiCQpjWRf2HEgaVOYoR9ScPVM4qS1iQXS3OFfVCaSrQhDiODZ7 lbm [file] AgICAgICAgICAgICAgICAgICAgICAgICAgICAgICAgICAgICAgICAgICAgICAgICAgICAgICAgICAgIC NtLN6KIWCkQIDcDJQzJGSiQLBdAHDeSKNxJBTmJNPa ICAgICAgICAgICAgICAgICAgICAgICAgICAgICAgICAgICAgICAgICAgICAgICAgICAgICAgICAgICAg WLXgNPZaQITyBBLcKQ2QLXMiGWDrNRYxEDXcHIPzJNXuGKLhNBJqFEYcSEWcBBWtTOOvEGXuKGCpRITu ICAgICAgICAgICAgICAgICAgICAgICAgICAgICAgIC IyXSJxVCHtBVNvIPOpBKUlGFCiABZfDH2CAUTdFXHnBELrHSObOZAgYPFcBDYzVBQoGQOlJWZnPAGxJV AgICAgICAgICAgICAgICAgICAgICAgICAgICAgICAgICAgICAgICAgICAgICAgICAgICAgICAgICAgIC YlGEZpNB4AZDWzHKBlJUEdOOQnAVIfTLPzNGSkKAQy ICAgICAgICAgICAgICAgICAgICAgICAgICAgICAgICAgICAgICAgICAgICAgICAgICAgICAgICAgICAg TOStZUCjUJFiWDOyPPDnSB5GJAOeYLBzLGAqMJSsROIgYZVmTGKaBQToMSUkMQXgXIJfKBCmLCIvJUSx ICAgICAgICAgICAgICAgICAgICAgICAgICAgICAgIC IcBGUrSDTsIXEiOTEmHPGxPGJaGPXaMGNcAB5HWIKaGLVnAVWlTLRpPOMtUDEpLSJyLPAjGLFdFWUhDT AgICAgICAgICAgICAgICAgICAgICAgICAgICAgICAgICAgICAgICAgICAgICAgICAgICAgICAgICAgIC WeXDYiCHBzTT2FTUFxXABjZGEvSCJtWIVkAPAcQUYi ICAgICAgICAgICAgICAgICAgICAgICAgICAgICAgICAgICAgICAgICAgICAgICAgICAgICAgICAgICAg YISkJUEvKDBaCCOjAGEhBPKbKC0XZTUfCXBcNSUcTYEdOLEyAQVuXQExKKOoOJZkLRVySLXcCFDlLWWl ICAgICAgICAgICAgICAgICAgICAgICAgICAgICAgIC RuLHVoKMBmEVScINPsZQJdQEJvKPBuTOWjFFFaTI6QUDFbOBDtUSAyLMZrMBMxWZQfXJMlFIVkVTDqYY AgICAgICAgICAgICAgICAgICAgICAgICAgICAgICAgICAgICAgICAgICAgICAgICAgICAgICAgICAgIC ZkHFFtVPKpOPLgIJ9AEZ38cEKsz1H7EDKnSL6sdhx/ Td1NBQqdlwEbqFKiVS6FPoQpML9byc5UXtXoEJ3myg9OSGnMXaJaZ6R7iLDoGGPfLEAMQgBbD51rSBtn Tw58WChxGQQiJgLgEJp8An1GQdBeR8cjTJWyIiB1ATArWqV2LLAwBjW3UGRjQvSzSSDqTQHbIJPeGYJG GAW9SCGcJhDrQHvbGD9Ev2ZsgTT6YLu+Ne8HXR8ec1 LaGEdmYjPjNJ0teu7HLWlYGnFmM4GjicL6HYPfLULiFc8RSHKyXTPpzTAkDtPgAHBVMiPiM3IssJ83XN ENCj4+CGrrppGnYstNRyBmXKHeh2PbGLn6TF7HNQIfVHe9iAHtM79oz9IwxGQnZvyoHXvvblpwVTHsY9 4ysHEcPF3LQhJjFEIkLP4zMe4bTOOmLVNvBoA1WJIC RI9IMKEeZXMgyJRiVAVcAFMMEM4VFSjbIVI0OLVlepJeyBUaJDgeJL9GMFCrgkLcQqBhVJFLQNt+Pg0K SS6uf4FzZAzvSIYuZG1hgy7UYQpBTlScV1C2rAOiK7G3MYxpYl4DGGSmBTCeQiNqSXDRKVuoCJ4DPN3h mvK6EW1IlYYoWNGoBYQznBVqLWx3P57jxTKbWInjBY 0KICA+Javed+Qt5KZHChWSGeDNHnSmBiHWVIQlBhO6EpR6CIx1HrH5MaSB55oTdqphHkVHtjYH7NAD0yLE YyUDMNSS6YqNFadB9lumJqHjMzZLZZQnLsJ93ayVIiAHEyFXIqRNXwBo9YKRLiJ0QgueYljItsbtBdCT YiKEQTNK8SJQdilaObqUUqdDwyDP14wSpzEN5VWp6I UmVoDR4ble3VkNOrHk3UDQEzYK6SNYQwAGSuNOQxUYO0LDEuJiLaHNwcVFJsMEFiWDU3PGLuZQKlKL4A VvWdBLGkIsOhKICsISBgPKBhgv7RNINvQOQpXgl6DEZqOORtMMRbOFvxCCBmNAYeMFR7DCHoPNFqTC0M BmRfWLGuZXT1RMLhPQZxDTJryi6VAOIpGZPqGBFyNS OyLZNuSKAnYVboQHDzKWM5CiE8BJSjHSGnHO3IHdLuKCRmIQc1MlahEITlSXAezm2SPCRzQFFmPTO3XF MlJHXfVZXhEBblYVBkYFMpVGEgRIMpZWUmXP0AYtLrOLHjQMXtAKTuEMNdIVWjdh3JCPWdDOVpXNK3Dg OiOHDbMUCzQKntTWDiOSY0UasfDSFtEOJmGH9DGjWa SVIdAMi6XTjpGHKaKCUgke0IINXsAHTcKTskCURlCINyWCOhGEtbQRNkUVW6DES8JLTqZISrLV8LXqOn JVTiJCx2SmfiSYFyMAVcgz3JUTPgLUCjYRB9QJQoRFVtTJHkMYolWNNuHWExChT6KJHlWVNvUW1ANdKq IWZfWmRsKVIyAYIqJDXlgh9MUIFjTEMyBLHfSOBcQC DqJTGfSCqlPLPoCRVnHRa0WKHfRFAhEJ6FVaRrYAKuEeS9YANmDYUlLUDuiz3ZZFSfUUHvCrt3KqBlLI FeZIUbKLyuWBJmIMJrAZA1MWToTDDxNW7ZEuRcCFFcFxRqFiJqOJXhZIAgbz0MXTAoMOBzCIYaMUBzRG VmWTDxAFcuXAEdYFC5NLX7NKGcWGDgEU3RKaYtSRWp YbOfAHqvSMObTOOemb3HYZWbBUUcIFEhQtJaNLLdVXOrLYobXBJdOWG2DsVcZUAgVLGkSH0IRhMsKANq LtuaZoWuMPSjLXHilu0UTSKeTIAbMtN8OfGbHXOkZYSiTAcmBCUbEMY2XnC2YNDqAWIfUK8DKzUuGDvt GMBNZlb9NSgoH6r9YFXeGQ0GB2Tbf1IhGwNfNVGTMN wtEI6bcuPaITGpRr6EO0cBUox8BoK4V5V0NWZ2IrG7NlbhNCZeZaKsOMZ2IpUbI1VvKo5hVEQtCWrsTN Q1CyKiAFAjM4DdNSU1S8X1JWxtRYHsNBC3XhYzFK7RRn8ZXjV5SZA9ySXrGe3HRnp6WUBSJkKcCL2AUP o= ID Date Data Source [id number] 01/16/2021 08:49:18 AM [facility] Name Value Range Interpretation Code Description Data Tyra rce(s) Supporting Document(s) Glucose [Mass/volume] in Capillary blood by Glucometer 209 mg/dL 70- 140 H [facility] ID Date Data Source [id number] 01/16/2021 07:28:30 AM [facility] Name Value Range Interpretation Code Description Data Tyra rce(s) Supporting Document(s) Leukocytes [#/volume] in Blood by Automated count 10.3 10*3/uL 4-10 H [facility] Erythrocytes [#/volume] in Blood by Automated count 2.58 10*6/uL 4.1- 5.3 L [facility] Hemoglobin [Mass/volume] in Blood 7.6 g/dL 11.5-15.5 L [facility] Hematocrit [Volume Fraction] of Blood by Automated count 21.8 % 3 6-45 L [facility] Erythrocyte mean corpuscular volume [Entitic volume] by Auto mated count 84.5 fL 80-96 [facility] Erythrocyte mean corpuscular hemoglobin [Entitic mass] by Automated count 29.5 pg 27-33 [facility] Erythrocyte mean corpuscular hemoglobin concentration [Mass/volume] by Automated count 35.0 g/dL 32.0-36.0 [facility] Erythrocyte distribution width [Ratio] by Automated count 14.2 % 11.5-14.5 [facility] Platelets [#/volume] in Blood by Automated count 145 10*3/uL 150-400 L [facility] Differential cell count method - Blood [facility] Neutrophils/100 leukocytes in Blood by Automated count 75 % [facility] Lymphocytes/100 leukocytes in Blood by Automated count 14 % [facility] Monocytes/100 leukocytes in Blood by Automated count 7 % [facility] Eosinophils/100 leukocytes in Blood by Automated count 3 % [facility] Basophils/100 leukocytes in Blood by Automated count 1 % [facility] Neutrophils [#/volume] in Blood by Automated count 7.79 10*3/uL 1.8-7 .0 H [facility] Lymphocytes [#/volume] in Blood by Automated count 1.47 10*3/uL 1.2-4 .0 [facility] Monocytes [#/volume] in Blood by Automated count 0.74 10*3/uL 0-0.8 [facility] Eosinophils [#/volume] in Blood by Automated count 0.29 10*3/uL 0-0.5 [facility] Basophils [#/volume] in Blood by Automated count 0.05 10*3/uL 0-0.2 [facility] Nucleated erythrocytes/100 leukocytes [Ratio] in Blood by Automated count 0 /100{WBCs} 0-0 [facility] ID Date Data Source [id number] 01/16/2021 07:47:19 AM EDT [facility] Name Value Range Interpretation Code Description Data Tyra rce(s) Supporting Document(s) Troponin T.cardiac [Mass/volume] in Serum or Plasma 0.27 ng/mL <0.01 [facility] No Significant Change Since Last Result Called ID Date Data Source [id number] 01/16/2021 08:02:59 AM [facility] Value Range Interpretation Code Description Data Tyra rce(s) Supporting Document(s) Reticulocytes/100 erythrocytes in Blood by Automated count 2.2 % 0.6-2.8 [facility] Reticulocytes [#/volume] in Blood 58.4 10*3/uL 26-122 [facility] Immature reticulocytes/Reticulocytes.total in Blood 0.50 % 0.26-0 .52 [facility] ID Date Data Source [id number] 01/17/2021 12:07:29 PM [facility] Value Range Interpretation Code Description Data Tyra rce(s) Supporting Document(s) Hepatitis C virus RNA [Units/volume] (vi ral load) in Serum or Plasma by Probe and target amplification method [facility] Hepatitis C virus RNA [log units/volume] (viral load) in Serum or Plasma by Probe and target amplification method [facility] Service comment [facility] (NOTE)The quantitative range of this ass ay is 15 IU/mL to 100 millionIU/mL.Performed At: [facility] [id number] Blackwell MD Ph:[phone] ID Date Data Source [id number] 01/16/2021 10:40:54 AM [facility] Value Range Interpretation Code Description Data Tyra rce(s) Supporting Document(s) Hepatitis B virus core Ab [Presence] in Serum or Plasma by I mmunoassay Non Reactive [facility] No active or previous infection. Suscept ible to infection. ID Date Data Source [id number] 01/16/2021 10:40:54 AM [facility] Value Range Interpretation Code Description Data Tyra rce(s) Supporting Document(s) Hepatitis B virus core IgM Ab [Presence] in Serum or Plasma by Immunoassay [facility] Reactive [facility] IgM antibodies to HBc were not detected, does not exclude the possibility of exposure to HBV. ID Date Data Source [id number] 01/16/2021 10:40:54 AM EDT [facility] Name Value Range Interpretation Code Description Data Tyra rce(s) Supporting Document(s) Hepatitis B virus surface Ag [Presence] in Serum or Plasma b y Immunoassay Non Reactive [facility] No active or previous infection. Suscept ible to infection. ID Date Data Source [id number] 01/16/2021 02:25:12 PM EDT [facility] Name Value Range Interpretation Code Description Data Tyra rce(s) Supporting Document(s) Neutrophil cytoplasmic Ab [Presence] in Serum by Immunofluoresce nce Negative [facility] ID Date Data Source [id number] 01/16/2021 03:11:38 PM EDT [facility] Value Range Interpretation Code Description Data Tyra rce(s) Supporting Document(s) Protein [Mass/volume] in Serum or Plasma 4.7 g/dL 6.4-8.3 L [facility] Albumin [Mass/volume] in Serum or Plasma by Electrophoresis 2.56 g/dL 3.80-5.78 [facility] Alpha 1 globulin [Mass/volume] in Serum or Plasma by Electro phoresis 0.16 g/dL 0.08-0.23 [facility] Alpha 2 globulin [Mass/volume] in Serum or Plasma by Electro phoresis 0.78 g/dL 0.45-0.92 [facility] Beta globulin [Mass/volume] in Serum or Plasma by Electropho resis 0.78 g/dL 0.50-1.03 [facility] Gamma globulin [Mass/volume] in Serum or Plasma by Electroph oresis 0.42 g/dL 0.54-1.30 [facility] Protein.monoclonal [Mass/volume] in Serum or Plasma by Electrophoresi s 0 [facility] Decreased total serum proteins (4.7 g/dL ) with hypoalbuminemia and hypogammaglobulinemia. This can be seen in nephrosis, protein losing enteropathy, or severe acute illness. Clinical correlation is recommended. Pathologist name [facility] ID Date Data Source [id number] 01/16/2021 11:27:24 AM EDT [facility] Value Range Interpretation Code Description Data Tyra rce(s) Supporting Document(s) Folate [Mass/volume] in Serum or Plasma 12.29 ng/mL >4.77 [facility] ID Date Data Source [id number] 01/16/2021 11:28:04 AM [facility] Value Range Interpretation Code Description Data Tyra rce(s) Supporting Document(s) Hepatitis B virus surface Ab [Units/volume] in Serum o r Plasma by Immunoassay 5.7 m[IU]/mL >11.4 L [facility] Non ReactiveNo active or previous infect ion. Susceptible to infection. ID Date Data Source [id number] 01/16/2021 01:50:32 AM [facility] Value Range Interpretation Code Description Data Tyra rce(s) Supporting Document(s) Troponin T.cardiac [Mass/volume] in Serum or Plasma 0.25 ng/mL <0.01 [facility] Results called to and read back by 6A AMERICA GARCIA AT [id number] BY [id number] ID Date Data Source [id number] 01/16/2021 01:47:29 AM [facility] Value Range Interpretation Code Description Data Tyra rce(s) Supporting Document(s) HIV 1+2 Ab+HIV1 p24 Ag [Presence] in Serum or Plasma by Immu noassay Non Reactive [facility] Negative for HIV-1 p24 antigenand HIV-1/ HIV-2 antibodies. Nolaboratory evidence of HIVinfection. ID Date Data Source [id number] 01/16/2021 01:51:12 AM [facility] Value Range Interpretation Code Description Data Tyra rce(s) Supporting Document(s) Creatinine [Mass/volume] in Urine 115.1 mg/dl [facility] ID Date Data Source [id number] 01/16/2021 01:51:12 AM [facility] Value Range Interpretation Code Description Data Tyra rce(s) Supporting Document(s) Sodium [Moles/volume] in Urine 24 mmol/L [facility] ID Date Data Source [id number] 01/16/2021 01:51:12 AM [facility] Value Range Interpretation Code Description Data Tyra rce(s) Supporting Document(s) Chloride [Moles/volume] in Urine [facility] Confirmed ID Date Data Source [id number] 01/16/2021 06:03:34 AM [facility] Value Range Interpretation Code Description Data Tyra rce(s) Supporting Document(s) Osmolality of Urine 329 mosm/kg 300-1000 [facility] ID Date Data Source [id number] 01/16/2021 08:29:33 AM EDT [facility] Name Value Range Interpretation Code Description Data Tyra rce(s) Supporting Document(s) Urea nitrogen [Mass/volume] in Urine 421 mg/dL [facility] ID Date Data Source [id number] 01/16/2021 03:10:09 PM EDT [facility] Name Value Range Interpretation Code Description Data Tyra rce(s) Supporting Document(s) Protein [Mass/volume] in Urine 331 mg/dl [facility] Confirmed Albumin/Protein.total in Urine by Electrophoresis 83.2 % [facility] Alpha 1 globulin/Protein.total in Serum or Plasma by Electrophoresi s 2.1 % [facility] Alpha 2 globulin/Protein.total in Urine by Electrophoresis 3.9 % [facility] Beta globulin/Protein.total in Urine by Electrophoresis 6.1 % [facility] Gamma globulin/Protein.total in Urine by Electrophoresis 4.7 % [facility] Protein Fractions [Interpretation] in Urine by Electrophoresis [facility] Pathologist name [facility] ID Date Data Source [id number] 01/15/2021 10:33:39 PM T [facility] US RENAL OR AORTA COMPLETE [id number] RE SULTInterpreted by:Elliott Rubio MDPROCEDURE INFORMATION: Exam: [...] rce(s) Supporting Document(s) ID Date Data Source [id number] 01/15/2021 09:32:18 PM [facility] Value Range Interpretation Code Description Data Tyra rce(s) Supporting Document(s) Glucose [Mass/volume] in Capillary blood by Glucometer 273 mg/dL 70- 140 H [facility] ID Date Data Source [id number] 01/15/2021 07:37:10 PM [facility] Value Range Interpretation Code Description Data Tyra rce(s) Supporting Document(s) Troponin T.cardiac [Mass/volume] in Serum or Plasma 0.26 ng/mL <0.01 [facility] No Significant Change since last result called ID Date Data Source [id number] 01/15/2021 09:29:10 PM [facility] Value Range Interpretation Code Description Data Tyra rce(s) Supporting Document(s) Cobalamin (Vitamin B12) [Mass/volume] in Serum or Plasma 670 pg/ml 2 11-946 [facility] ID Date Data Source [id number] 01/15/2021 09:29:10 PM [facility] Value Range Interpretation Code Description Data Tyra rce(s) Supporting Document(s) Complement C3 [Mass/volume] in Serum or Plasma 124 mg/dL 90-180 [facility] ID Date Data Source [id number] 01/15/2021 09:29:10 PM [facility] Value Range Interpretation Code Description Data Tyra rce(s) Supporting Document(s) Complement C4 [Mass/volume] in Serum or Plasma 28 mg/dL 10-40 [facility] ID Date Data Source [id number] 01/15/2021 09:29:10 PM [facility] Value Range Interpretation Code Description Data Tyra rce(s) Supporting Document(s) Ferritin [Mass/volume] in Serum or Plasma 369 ng/ml 13-150 H [facility] ID Date Data Source [id number] 01/15/2021 09:46:08 PM [facility] Value Range Interpretation Code Description Data Tyra rce(s) Supporting Document(s) Iron [Mass/volume] in Serum or Plasma 35 ug/dl 37-145 [facility] Transferrin [Mass/volume] in Serum or Plasma 163 mg/dL 200-360 [facility] Iron binding capacity [Mass/volume] in Serum or Plasma 226 ug/dl 228 -428 [facility] Iron saturation [Mass Fraction] in Serum or Plasma 15.0 % 20-55 [facility] ID Date Data Source [id number] 01/15/2021 05:20:01 PM [facility] Value Range Interpretation Code Description Data Tyra rce(s) Supporting Document(s) Glucose [Mass/volume] in Capillary blood by Glucometer 297 mg/dL 70- 140 [facility] ID Date Data Source [id number] 01/15/2021 04:02:57 PM [facility] Value Range Interpretation Code Description Data Tyra rce(s) Supporting Document(s) [facility] RDOSRw2wHtQJSaZz48/LISjzCJSlf2GqJKiqXKj1MSknWTDiW2TpDMI8gS2xZQN4HJpRVpWpYwXgHXC1 lbm [file] MDAwMDAxMTExMiAwMDAwMCBuDQowMDAwMDEyMDcxID HbMFCzCT3DRdLgSDMiFDEpBwEwLDTwQNFqhb8PMOUrBUIzJdJ6MIZlAPRfHQVmHKfjYXSoGBNtJUWzUS PzZGGwJK8RHfPtLVYmLTS5ZZkjYVVpIOPqen1PCZGoGETmMwchBLPlOBCeANPpQTouIVWuEYE1VtLySQ MxWHDhTZ8AHbMgHJHtWDI7XCWoHMZsMGWgkt5FFIMf HMLlSBc1SwKaFWJcFEScLQmeWWZjYTG5EAK7EJKrITUhDG5OAtGwSYgkEOCNGtm0FPasF2j5UEJaDe1W X8Qxz7RsYmHdUSEIFYraVI3lgkIjPEDzTp2SD4cHDwk7PKsnHkA1LSYvIbW2WjsfYzSxMZN2VzV0Gzd2 SHOxGS6oIGXvTIWgTfj2BGTnOqKfNXQcPfTuXRawSl A2YIxcNZIjXwJfOD6BVe7TMxQ2GTI1fLMqLt9OTARqJJHEBsZtKK6JIWj= ID Date Data Source [id number] 01/15/2021 12:56:10 PM EDT [facility] Value Range Interpretation Code Description Data Tyra rce(s) Supporting Document(s) Glucose [Mass/volume] in Capillary blood by Glucometer 352 mg/dL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 szXzJDWzRx0WS4sRKfucZpYvOPHiHOXlAjHdKCCbKGN1KGAqJyX2GAF3TNeoLV6gMTZpA3W0SwWdCvRu ApL8EmHdJcWaVLPxQaC9UBD5BPO9XhGzCH4HQt1NQnB0SSC6qUHlOs9XRdKbOQAHTuXjWP4LVUe= ID Date Data Source [id number] 01/19/2021 09:43:04 AM EDT [facility] Service Cmnt XXX-Imp : R ACMicroorganism XXX Cult : No growth 5 days Name Value Range Interpretation Code Description Data Tyra rce(s) Supporting Document(s) ID Date Data Source [id number] 01/14/2021 06:26:32 PM [facility] Name Value Range Interpretation Code Description Data Tyra rce(s) Supporting Document(s) Glucose [Mass/volume] in Capillary blood by Glucometer 395 mg/dL 70- 140 H [facility] ID Date Data Source [id number] 01/14/2021 06:53:26 PM [facility] Name Value Range Interpretation Code Description Data Tyra rce(s) Supporting Document(s) Hepatitis C virus Ab [Presence] in Serum or Plasma by Immuno assay Non Reactive [facility] No serological evidence of active infect ion. If recent exposure is suspected, test for HCV RNA. ID Date Data Source [id number] 01/16/2021 02:17:35 PM [facility] Name Value Range Interpretation Code Description Data Tyra rce(s) Supporting Document(s) Nuclear Ab Pattern Homogenous [Titer] in Serum <80 [facility] Nuclear Ab pattern.speckled [Titer] in Serum <80 [facility] Nuclear Ab pattern.rim [Titer] in Serum <80 [facility] Nuclear Ab pattern.nucleolar [Titer] in Serum <80 [facility] ID Date Data Source [id number] 01/14/2021 06:46:50 PM T [facility] Name Value Range Interpretation Code Description Data Tyra rce(s) Supporting Document(s) Troponin T.cardiac [Mass/volume] in Serum or Plasma 0.29 ng/mL <0.01 [facility] No Significant Change since last result called ID Date Data Source [id number] 01/14/2021 02:10:26 PM [facility] XR CHEST FRONTAL ONLY [id number] RESULTI nterpreted by:Davida Hawley MDINDICATION: sob COMPARISON: [...] rce(s) Supporting Document(s) ID Date Data Source [id number] 01/14/2021 02:28:27 PM [facility] Value Range Interpretation Code Description Data Tyra rce(s) Supporting Document(s) Prothrombin time (PT) 16.2 s 12.5-14.9 H [facility] INR in Platelet poor plasma by Coagulation assay 1.28 [facility] Routine intensity oral anticoagulation I NR is typically 2.0-3.0. Target INR must be clinically individualized. ID Date Data Source [id number] 01/19/2021 07:13:25 AM [facility] Value Range Interpretation Code Description Data Tyra rce(s) Supporting Document(s) ABO and Rh group [Type] in Blood [facility] Blood group antibody screen [Presence] in Serum or Plasma [facility] Performed at [facility] [id number] from 6A at 1005 on 01/17/21 by 2067 Blood bank comment [facility] ID Date Data Source [id number] 01/14/2021 12:52:22 PM [facility] Value Range Interpretation Code Description Data Tyra rce(s) Supporting Document(s) Troponin I.cardiac [Mass/volume] in Blood 3.11 ng/mL 0.00-0.08 H [facility] ID Date Data Source [id number] 01/14/2021 12:52:22 PM [facility] Value Range Interpretation Code Description Data Tyra rce(s) Supporting Document(s) pH of Venous blood 7.43 7.36-7.41 H [facility] Carbon dioxide [Partial pressure] in Venous blood 40 mmHg 40-45 [facility] Oxygen [Partial pressure] in Venous blood 26 mmHg [facility] Base excess standard in Venous blood by calculation 2 mmol/L [facility] Oxygen saturation Calculated from oxygen partial pressure in Venous blood 49 % 60-85 L [facility] Lactate [Moles/volume] in Venous blood 1.5 mmol/L 0.5-2.2 [facility] Bicarbonate [Moles/volume] in Venous blood 27 mmol/L [facility] ID Date Data Source [id number] 01/14/2021 12:48:40 PM EDT [facility] Name Value Range Interpretation Code Description Data Tyra rce(s) Supporting Document(s) Leukocytes [#/volume] in Blood by Automated count 12.7 10*3/uL 4-10 H [facility] Erythrocytes [#/volume] in Blood by Automated count 2.93 10*6/uL 4.1- 5.3 L [facility] Hemoglobin [Mass/volume] in Blood 8.3 g/dL 11.5-15.5 L [facility] Hematocrit [Volume Fraction] of Blood by Automated count 24.8 % 3 6-45 L [facility] Erythrocyte mean corpuscular volume [Entitic volume] by Auto mated count 84.5 fL 80-96 [facility] Erythrocyte mean corpuscular hemoglobin [Entitic mass] by Automated count 28.2 pg 27-33 [facility] Erythrocyte mean corpuscular hemoglobin concentration [Mass/volume] by Automated count 33.3 g/dL 32.0-36.0 [facility] E[facility] distribution width [Ratio] by Automated count 13.8 % 11.5-14.5 [facility] Platelets [#/volume] in Blood by Automated count 159 10*3/uL 150-400 [facility] Differential cell count method - Blood [facility] Neutrophils/100 leukocytes in Blood by Automated count 83 % [facility] Lymphocytes/100 leukocytes in Blood by Automated count 9 % [facility] Monocytes/100 leukocytes in Blood by Automated count 7 % [facility] Eosinophils/100 leukocytes in Blood by Automated count 0 % [facility] Basophils/100 leukocytes in Blood by Automated count 1 % [facility] Neutrophils [#/volume] in Blood by Automated count 10.49 10*3/uL 1.8- 7.0 H [facility] Lymphocytes [#/volume] in Blood by Automated count 1.15 10*3/uL 1.2-4 .0 L [facility] Monocytes [#/volume] in Blood by Automated count 0.93 10*3/uL 0-0.8 H [facility] Eosinophils [#/volume] in Blood by Automated count 0.01 10*3/uL 0-0.5 [facility] Basophils [#/volume] in Blood by Automated count 0.07 10*3/uL 0-0.2 [facility] Nucleated erythrocytes/100 leukocytes [Ratio] in Blood by Automated count 0 /100{WBCs} 0-0 [facility] ID Date Data Source [id number] 01/14/2021 01:21:20 PM [facility] Name Value Range Interpretation Code Description Data Tyra rce(s) Supporting Document(s) Lipase [Enzymatic activity/volume] in Serum or Plasma 14 U/L 13-6 0 [facility] ID Date Data Source [id number] 01/14/2021 01:21:20 PM [facility] Name Value Range Interpretation Code Description Data Tyra rce(s) Supporting Document(s) Albumin [Mass/volume] in Serum or Plasma by Bromocresol green (BCG) dye binding method 3.5 g/dL 3.5-5.2 [facility] Bilirubin.total [Mass/volume] in Serum or Plasma 1.0 mg/dL <1.2 [facility] Calcium [Mass/volume] in Serum or Plasma 8.9 mg/dL 8.8-10.2 [facility] Chloride [Moles/volume] in Serum or Plasma 102 mmol/L 98-107 [facility] Creatinine [Mass/volume] in Serum or Plasma 2.01 mg/dL 0.50-0.90 H [facility] Glucose [Mass/volume] in Serum or Plasma 428 mg/dL 70-140 H [facility] Alkaline phosphatase [Enzymatic activity/volume] in Serum or Plasma 82 U/L 35-104 [facility] Potassium [Moles/volume] in Serum or Plasma 4.0 mmol/L 3.4-5.1 [facility] Protein [Mass/volume] in Serum or Plasma 5.9 g/dL 6.4-8.3 L [facility] Sodium [Moles/volume] in Serum or Plasma 138 mmol/L 136-145 [facility] Aspartate aminotransferase [Enzymatic activity/volume] in Serum or Plasma 19 U/L <32 [facility] Urea nitrogen [Mass/volume] in Serum or Plasma 40 mg/dL 8-23 H [facility] Osmolality of Serum or Plasma by calculation 314 mosm/kg 275-300 H [facility] Creatinine/Urea nitrogen [Mass Ratio] in Serum or Plasma 20 [facility] Bicarbonate [Moles/volume] in Serum 25 mmol/L 22-29 [facility] Alanine aminotransferase [Enzymatic activity/volume] in Seru m or Plasma 15 U/L <33 [facility] Anion gap 3 in Serum or Plasma 11 mmol/L 8-15 [facility] Glomerular filtration rate/1.73 sq M pre dicted among non-blacks [Volume Rate/Area] in Serum or Plasma by Creatinine-based formula (MDRD) 24 mL/min/1.73m2 >60 L [facility] Glomerular filtration rate/1.73 sq M pre dicted among blacks [Volume Rate/Area] in Serum or Plasma by Creatinine-based formula (MDRD) 28 mL/min/1.73m2 >60 L [facility] ID Date Data Source [id number] 01/14/2021 01:21:20 PM [facility] Value Range Interpretation Code Description Data Tyra rce(s) Supporting Document(s) Troponin T.cardiac [Mass/volume] in Serum or Plasma 0.29 ng/mL <0.01 [facility] Results called to and read back by RN [phone] at [phone] by 1519 ID Date Data Source [id number] 01/14/2021 01:21:20 PM [facility] Value Range Interpretation Code Description Data Tyra rce(s) Supporting Document(s) Magnesium [Mass/volume] in Serum or Plasma 2.1 mg/dL 1.6-2.4 [facility] ID Date Data Source [id number] 01/14/2021 05:43:56 PM [facility] Value Range Interpretation Code Description Data Tyra rce(s) Supporting Document(s) Natriuretic peptide.B prohormone N-Terminal [Mass/volu me] in Serum or Plasma 88690 pg/mL <125 H [facility] ID Date Data Source [id number] 01/14/2021 06:42:57 PM [facility] Value Range Interpretation Code Description Data Tyra rce(s) Supporting Document(s) Procalcitonin [Mass/volume] in Serum or Plasma 0.20 ng/mL <0.10 H [facility] (NOTE) < 0.25 ng/mL Bacterial infec tion unlikely,particularly lower respiratory tract infections.0.25 -<0.50 ng/mL Low risk for progression to severe sepsis/septic shock. Localized infection is possible. Measurement done early (<6 hours) after systemic process starts may still be low.0.50 - 2.00 ng/mL Moderate risk for progression to sepsis/septic shock. > 2.00 ng/mL High risk for progression to sepsis/septic shock. ID Date Data Source [id number] 01/14/2021 05:54:30 PM EDT [facility] Name Value Range Interpretation Code Description Data Tyra rce(s) Supporting Document(s) Hemoglobin A1c/Hemoglobin.total in Blood by HPLC 9.3 % 4.0-6.0 H [facility] (NOTE)<5.7% Average risk of diabetes (ADA)5.7-6.4% Increased risk of diabetes(ADA)>/= 6.5% Diagnostic for diabetes(ADA) Glucose mean value [Mass/volume] in Blood Estimated fr om glycated hemoglobin 220 mg/dL <126 H [facility] ID Date Data Source [id number] 01/14/2021 01:45:14 PM EDT [facility] Name Value Range Interpretation Code Description Data Tyra rce(s) Supporting Document(s) ABO and Rh group [Type] in Blood [facility] Blood bank comment [facility] ID Date Data Source [id number] 01/14/2021 08:05:00 AM EDT [facility] Name Value Range Interpretation Code Description Data Tyra rce(s) Supporting Document(s) SARS-CoV-2 (COVID 19) NEGATIVE - SARS-CoV-2 (COVID19) [facility] This lab was ordered by [facility] a nd reported by [facility]. ID Date Data Source [id number] 01/11/2021 05:34:[address] [facility] Imaging Services Department Imaging Report [address] [place] [id number] %(RAD)RES..mtdd.print.filter("line") Name: OXANA CLANCY : 1950 Age/Sex: 70F Ordering Provider: Andre Streeter, Med Rec #: [id number] Reg Status: DEP REF Room #: Date of Service: 01/10/21 Report Number: [id number] cc:Andre Tompkins Reason, DO Send Report To: [id number] US/US Thyroid Ultrasound Exam Reason for exam: [...] Hernández DO> 01/11/21 1109 Dictation Date/Time: 01/10/21 6932 Transcribed Date/Time: 01/11/21 0568 Train Inspector: EFRAÍN Name Value Range Interpretation Code Description Data Tyra rce(s) Supporting Document(s) ID Date Data Source [id number] 12/15/2020 09:22:00 AM EDT [facility] ([facility]) Name Value Range Interpretation Code Description Data Tyra rce(s) Supporting Document(s) Glucose [Mass/volume] in Capillary blood by Glucometer 165 mg/dL 80-115 Above high normal [facility] ([facility]) ID Date Data Source [id number] 12/15/2020 07:00:00 AM EDT [facility] ([facility]) Name Value Range Interpretation Code Description Data Tyra rce(s) Supporting Document(s) Glucose, Fasting 94 mg/dL 70-100 Normal (applies to non-numeric results) [facility] ([facility]) Creatinine For GFR 2.72 mg/dL 0.55-1.30 Above high normal [facility] Blood Urea Nitrogen 53 mg/dL 7-18 Above high normal [facility] Glomerular Filtration Rate 18.6 Below low normal [facility] <content>Units are mL/min/1.73 m2</content>
<content></content>
<content>Chronic Kidney Disease Staging per NKF:</content>
<content></content>
<content>Stage I & II GFR >=60 Normal to Mildly Decreased</content>
<content>Stage III GFR 30- 59 Moderately Decreased</content>
<content>Stage IV GFR 15-29 Severely Decreased</content>
<content>Stage V GFR <15 Very Little GFR Left</content>
<content>ESRD GFR <15 on BLOOD BANK SUPERVISOR</content>
<content></content> Sodium Level 138 meq/L 136-145 Normal (applies to non-numeric res ults) [facility] ([facility], ) Potassium Serum 3.8 meq/L 3.5-5.1 Normal (applies to non-numeric results) [facility] ([facility]) Chloride Level 99 meq/L 98-107 Normal (applies to non-numeric r esults) [facility] ([facility]) Anion Gap 10 meq/L 8-16 Normal (applies to non-numeric resul ts) [facility] ([facility]) Calcium Level 9.7 mg/dL 8.8-10.2 Normal (applies to non-numeric re sults) [facility] ([facility]) Carbon Dioxide Level 29 meq/L 21-32 Normal (applies to non-num [place] results) [facility] ([facility]) ID Date Data Source [id number] 12/12/2020 10:00:00 AM EDT [facility] Name Value Range Interpretation Code Description Data Tyra rce(s) Supporting Document(s) SARS-CoV-2 (COVID-19) RNA [Presence] in Respiratory specimen by ALLAN with probe detection Not Detected [facility] This lab was ordered by [facility] and reported by [employer]. ID Date Data Source [id number] 09/20/2020 03:15:00 PM EST [facility] Name Value Range Interpretation Code Description Data Tyra rce(s) Supporting Document(s) Hemoglobin A1C % Less than 5.7% Above high normal [facility] HBA1C: Normal: Less than 5.7% Prediabetes: 5.7% to 6.4% Diabetes: 6.5% or higher HA1C % vs Estimated Average Glucose (eAG) % eAG % eAG 6% 126 mg/dL 10% 240 mg/dL 7% 154 mg/dL 11% 269 mg/dL 8% 183 mg/dL 12% 298 mg/dL 9% 212 mg/dL Reference: [employer], 2017 ID Date Data Source [id number] 09/20/2020 02:28:00 PM EST [facility] Name Value Range Interpretation Code Description Data Tyra rce(s) Supporting Document(s) Creatinine,Urine Normal (applies to non-numeric results) [facility] Interpret with care as there is no estab lished reference range associated with this assay's methodology that pertains to this particular sex and/or age. Microalbumin,Urine <1.7 Above high normal [facility] Albumin/Creatinine Ratio,Urine Normal (applies to non-numeric results) [facility] Reference Ranges for Microalbumin,spot: Normal <30 ug/mg creatinine Microalbuminuria 30-300 ug/mg creatinine Clinical Albuminuria >300 ug/mg creatinine ID Date Data Source [id number] 09/20/2020 11:49:00 AM EST [facility] Name Value Range Interpretation Code Description Data Tyra rce(s) Supporting Document(s) Sodium 137 mmol/L 137-145 Normal (applies to non-numeric resul ts) [facility] Potassium 3.5-5.1 Normal (applies to non-numeric resul ts) [facility] Chloride 103 mmol/L 98-112 Normal (applies to non-numeric resul ts) [facility] Carbon Dioxide CO2 22.0-33.0 Normal (applies to non-numer ic results) [facility] Anion Gap 4.0-11.0 Normal (applies to non-numeric resul ts) [facility] BUN 62 mg/dL 7-17 Above high normal [facility] Creatinine 0.70-1.20 Above high normal [facility] GFR 16 mL/min >60 Below low normal [facility] Result based on MDRD formula. Glucose Level 260 mg/dL 74-99 Above high normal [facility] The reference range is only applicable w hen fasting. Calcium-Uncorrected 8.4-10.2 Normal (applies to non-nume yun results) [facility] Corrected Calcium 8.4-10.2 Normal (applies to non-numeri c results) [facility] ID Date Data Source [id number] 09/10/2020 10:56:00 AM EST [facility] Name Value Range Interpretation Code Description Data Tyra rce(s) Supporting Document(s) SARS coronavirus 2 RNA [Presence] in Res piratory specimen by ALLAN with probe detection NEGATIVE [facility] This lab was ordered by [facility] a nd reported by [facility]. ID Date Data Source [id number] 07/10/2020 09:01:00 AM EST [facility] [address] [place] [address] PHONE: [phone] FAX: [phone] Name .................. : EARNESTINEYELENA OXANA Escamilla Acct Number.................. : [id number] ROOM. ................. : [facility]05 Number ................... : [id number] Stay type ............. : E/R Discharge Date......... ... : 07/05/20 Admit Date ......... : 07/05/20 Admit Phys .................... : TONIA CASPER Date of ....... : 1950 Family Phys ................... : REASON EDW Phone .................. : [phone] Age ................................ : 69 Film# .................. .:[id number] Sex ................................. : F Unsigned transcriptions are preliminary reports and do not represent a medical or legal document [place] [id number] COMPLETE:07/05/20 19:10 SERINA [id number] Reason(s): Hx of osteo and gangrene FIRST [...] rce(s) Supporting Document(s) ID Date Data Source [id number] 07/10/2020 09:01:00 [place] [address] PHONE: [phone] FAX: [phone] Name .................. : SABA Escamilla Acct Number.................. : [id number] ROOM. ................. : TR-05 MR Number ................... : [id number] Stay type ............. : E/R Discharge Date......... ... : 07/05/20 Admit Date ......... : 07/05/20 Admit Phys .................... : TONIA CASPER Date of ....... : 1950 Family Phys ................... : REASON EDW Phone .................. : [phone] Age ................................ : 69 Film# .................. .:[id number] Sex ................................. : F Unsigned transcriptions are preliminary reports and do not represent a medical or legal document CHEST 2 VIEWS 44197 COMPLETE:07/05/20 19:10 SERINA 50017 Reason(s): b/l LE edema w/ hx of [...] rce(s) Supporting Document(s) ID Date Data Source [id number] 07/10/2020 09:01:00 AM EST [facility] [address] [place] [address] PHONE: [phone] FAX: [phone] Name .................. : SABA Escamilla Acct Number.................. : [id number] ROOM. ................. : [address] Number ................... : [id number] Stay type ............. : E/R Discharge Date......... ... : 07/05/20 Admit Date ......... : 07/05/20 Admit Phys .................... : TONIA CASPER Date of ....... : 1950 Family Phys ................... : REASON EDW Phone .................. : [phone] Age ................................ : 69 Film# .................. .:[id number] Sex ................................. : F Unsigned transcriptions are preliminary reports and do not represent a medical or legal document US DOPPLER VENOUS BILAT LEG 76815 COMPLETE:07/05/20 18:41 ADB 00390 Reason(s): Pain, Limb BILATERAL LOWER EXTREMITY DUPLEX [...] rce(s) Supporting Document(s) ID Date Data Source [id number] 07/06/2020 07:13:00 [place] [address] RESPIRATORY CARE REPORT ==== ---------NAME------- NUMBER SEX AGE ADMIT DISC. XRAY# F/C ASA Escamilla [id number] F 69 07/05/20 07/05/20 [id number] MBJoel E/R DATE OF : 1950 M/R# [id number] #: [id number] TR-05 LOCATION: EMERGENCY DEPT EKG 87645 COMP LETE:07/05/20 23:50 VMT 84847 PHYSICIAN: TONIA LUNA CH Name Value Range Interpretation Code Description Data Tyra rce(s) Supporting Document(s) ID Date Data Source [id number] 07/05/2020 03:34:00 PM [facility] 1 OrderSheet [facility] Emergency Department [address] [place] [address] Phone #: [phone]- [phone] 07/05/2020 15:34 Patient: OXANA CLANCY Sex: F [...] Rellpatricio Jeremy RouseNBoyd17:51 07/05/2020) PCarmen; 2 OrderSheet [facility] Emergency Department [address] [place] [address] Phone #: ext- [phone] 07/05/2020 15:34 Patient: OXANA CLANCY Sex: F [...] Pressure 16:30 07/05/2020 16:34 Diamond,Monitor Justino Dixon.N. P.A.-C;Ironer Machine 16:30 07/05/2020 16:34 Diamond,(continuous) Justino Dixon.N. P.A.- C;EKG 16:30 07/05/2020 16:34 Justino Fields R.N.-C;NPO 16:30 07/05/2020 16:34 Justino Fields R.N. P.ABoyd-C;Obtain Old EKG 16:30 07/05/2020 16:34 Justino Fields R.N.ABoyd-C;Obtain Old Records 16:30 07/05/2020 16:34 Justino Fields R.N. PBoydABoyd- C;Pulse oximeter 16:30 07/05/2020 16:34 Diamond, 3 OrderSheet [facility] Emergency Department [address] [place] [address] Phone #: ext- [phone] 07/05/2020 15:34 Patient: OXANA CLANCY Sex: F : 1950 Age: 69y(Continuous) Justino CardenasABoyd-Ting;Saline Lock 16:30 07/05/2020 16:34 Justino Fields R.N.-Ting;Vitals 16:30 07/05/2020 16:34 Justino Fields R.N., P.A.-C;Dress Wounds 19:06 07/05/2020 19:08 Justino Fields R.N., P.A.-C;[Electronically signed by Justino Luna P.A.-C (20:13 07/05/2020)][Electronically signed by Vivi Macdonald R.N. (05:21 07/06/2020)][Electronically locked by Vivi Macdonald R.N. (05:21 07/06/2020)] Name Value Range Interpretation Code Description Data Tyra rce(s) Supporting Document(s) ID Date Data Source [id number] 07/05/2020 03:34:00 PM EST [facility] 1 Medication Reconciliation Report [facility] Emergency Department [address] [place] [address] Phone #: ext- [phone] 07/05/2020 15:34 Patient: [...] 1 tablet, 2x a day, last dose: [id number] Lasix Oral (20 mg), daily Losartan Potassium Oral 50 mg, daily Multivit amins Oral 1 pill, daily Omeprazole Oral 40 mg, daily Plavix Oral ROPINIRole HCl Oral (1 mg) 1 tablet, 2x a day, last dose: [id number] 0045 2 Medication Reconciliation Report [facility] Emergency Department [address] [place] [address] Phone #: ext- [phone] 07/05/2020 15:34 Patient: [...] Value Range Interpretation Code Description Data Tyra [facility](s) Supporting Document(s) ID Date Data Source [id number] 07/05/2020 03:34:00 PM [facility] 1 Medication Administration Record [facility] Emergency Department [address] [place] [address] Phone #: ext- [phone] 07/05/2020 15:34 Patient: OXANA CLANCY Sex: F : 1950 Age: 69yWeight: 93.8 kgHeight/Length: 61 inBMI: 39.1ALLERGIES: PenicillinsDate/Time Medication Administered Medication Ordered Name Value Range Interpretation Code Description Data [facility](s) Supporting Document(s) ID Date Data Source [id number] 07/05/2020 03:34:00 PM [facility] 1 General Instructions [facility] Emergency Department [address] [place] [address] Phone #: ext- [phone] 07/05/2020 15:34 Patient: OXANA CLANCY Sex: F : 1950 Age: 69yCellulitis of the right foot.Subacute osteomyelitis of the right foot- from local infection.(Electronically signed by Justino Luna P.A.-C 07/05/2020 20:13) Name Value Range Interpretation Code Description Data Tyra rce(s) Supporting Document(s) ID Date Data Source [id number] 07/05/2020 03:34:00 PM EST [facility] 1 Clinical Report - Nurses [facility] Emergency Department [address] [place] [address] Phone #: ext- [phone] 07/05/2020 15:34 Patient: OXANA CLANCY Sex: F : 1950 Age: 69yTRIAGE Arrived by private vehicle. Historian: patient. Accompanied by friend. Triage time: 15:37 07/05/2020. Acuity: LEVEL 3. Chief Complaint: RIGHT LOWER EXTREMITY PAIN and SWELLING. LEFT LOWER EXTREMITY PAIN and SWELLING. Alert. Onset. (pt states "this is ongoing" worse about 4 days. pt d/c from [facility] Friday for same issue). She has had swelling. ( pt had US last week. Pt has blockage in right leg, 1 balloon placed. pt reports procedure to be repeated Friday. pt reports infection in right great toe. pt reports she was told it may be osteomyelitis and require amputation). Treatment LINE LEAD: None. --15:43 07/05/20 Leslie Reyna R.N. 15:37 [...] Reyna R.N. 2 Clinical Report - Nurses [facility] Emergency Department [address] [place] [address] Phone #: ext- [phone] 07/05/2020 15:34 Patient: OXANA CLANCY Sex: F : 1950 Age: 69yCarvedilol Oral 25mg, daily. --15:47 07/05/20 Leslie Reyna R.N.Plavix Oral. --15:47 07/05/20 Lelsie Reyna R.N.Anoro Ellipta Inhalation. --15:48 07/05/20 Leslie [...] a day as needed. --15:41 07/05/20 Leslie Ryena R.N.The following entry was struck and corrected [...] uses cane. 3 Clinical Report - Nurses [facility] Emergency Department [address] [place] [address] Phone #: ext- [phone] 07/05/2020 15:34 Patient: [...] sonogram by wheelchair with IV, mask and pyrotechnic mixer. --16:47 07/05/20 Beatriz Fields R.N. 16:09 07/05/2020 [...] Fields R.N. late entry - 17:45 07/05/20. monitor technician, NIBP monitor and pulse oximeter placed [...] Fields R.N. 4 Clinical Report - Nurses [facility] Emergency Department [address] [place] [address] Phone #: ext- [phone] 07/05/2020 15:34 Patient: [...] Fields R.N. late entry - 18:45 07/05/20. monitor technician, NIBP monitor and pulse oximeter placed [...] Secured with tape and negro. --19:13 07/05/20 Chrsitiane Stapleton R.N. 18:30 07/05/20. BP: 172/54. MAP: 93. HR: 66. RR: 20. O2 saturation: 93% on room air. --19:22 07/05/20 Beatriz Fields R.N. 19:00 07/05/20. BP: 179/54. MAP: 95. HR: 74. RR: 20. O2 saturation: 94% on room air. --19:23 07/05/20 Beatriz Fields R.N. late entry - 18:54 07/05/20. ( Called [facility] to give NTN). --19:24 07/05/20 Beatriz Fields R.N. late entry - 19:11 07/05/20. ( Called again to give report to [facility] too busy). --19:25 07/05/20 Beatriz Fields R.N. ( Spoke with [facility] field crop farming supervisor regarding report was told to get fax number and send the overview). --19:26 07/05/20 Beatriz Fields R.N.DISPOSITION / DISCHARGE 19:49 07/05/[address] Site #[address] upon transfer. --19:49 07/05/20 Matt Quintanilla RN Departure time: 19:51 07/05/2020. Condition at departure: stable. Transferred to [facility]. Visit overview, summary of care (CCDA), Emtala forms and Face Sheet provided to EMS and transfer facility via paper. Transported via ambulance by EMS ([facility]). Report was given via visit overview. Report was acknowledged. --19:52 07/05/20 Matt Quintanilla RN 5 Clinical Report - Nurses [facility] Emergency Department [address] [place] [address] Phone #: ext- [phone] 07/05/2020 15:34 Patient: OXANA CLANCY Sex: F : 1950 Age: 69y 19:49 07/05/20. BP: 170/86. MAP: 114. HR: 72. RR: 18. O2 saturation: 95%. Temp: 98.6 F. Pain level now: 11/08. --19:52 07/05/20 Matt Quintanilla RN.Locked/Released at 07/06/2020 05:21 by Vivi Quintanilla R.N. Name Value Range Interpretation Code Description Data Tyra rce(s) Supporting Document(s) ID Date Data Source [id number] 07/05/2020 03:34:00 PM EST [facility] 1 Clinical Report - Physicians/Mid Levels [facility] Emergency Department [address] [place] [address] Phone #: ext- [phone] 07/05/2020 15:34 Patient: [...] R foot. Pt was recetnly dc'ed from [facility] on Friday for multiple issues. Orgianlly presented to the [facility] ER with nonhealing R toe gangrene 2/2 [...] [Chronic]. 2 Clinical Report - Physicians/Mid Levels [facility] Emergency Department [address] [place] [address] Phone #: ext- [phone] 07/05/2020 15:34 Patient: [...] Oral. 3 Clinical Report - Physicians/Mid Levels [facility] Emergency Department [address] [place] [address] Phone #: ext- [phone] 07/05/2020 15:34 Patient: [...] intact 4 Clinical Report - Physicians/Mid Levels [facility] Emergency Department [address] [place] [address] Phone #: ext- [phone] 07/05/2020 15:34 Patient: OXANA CLANCY Sex: F [...] Tests: Blood Culture: (SANDY: 07/05/2020 18:01) ( [facility] 07/[facility] 18:16) Canceled Sed. Rate: (SANDY: 07/05/2020 16:30) ( [facility] 07/05/2020 17:54) Us l results Test Result Flag Units (Reference) SED RATE 111 H mm/hr (0 - 30) SED RATE REENTER 111 CRP: (SANDY: 07/05/2020 16:30) ( [facility] 07/05/2020 17:09) Final results Test Result Flag Units (Reference) CRP-HS 14.86 H MG/L (1.00 - 3.00) CDC/AHS HS-CRP CUT-OFF: RELATIVE RISK: <1.0 mg/L Low 1.0 - 3.0 mg/L Average >3.0 mg/L High Optimally, the average of HS-CRP results repeated two weeks apart should be used for risk assessment. CBC w Diff: (SANDY: 07/05/2020 16:30) ( [facility] 07/05/2020 16:54) Final results Test Result Flag Units (Reference) CBC W/AUTOMATED DIFF COMPLETE BLOOD COUNT WBC 11.7 H 10/uL (4.2 - 11.0) RBC 3.11 L 10/uL (4.20 - 5.40) HEMOGLOBIN 8.8 L g/dL (12.0 - 16.0) HEMATOCRIT 26.7 L % (37.0 - 47.0) MCV 85.9 fL (81.0 - 101) 5 Clinical Report - Physicians/Mid Levels [facility] Emergency Department [address] [place] [address] Phone #: ext- [phone] 07/05/2020 15:34 Patient: OXANA CLANCY Sex: F [...] Male GFR Interprentation 20-49 yrs >60 mL/min Qdsqju84-47 yrs >56 mL/min Normal 60-69 yrs >49 mL/min Normal 70-79yrs>42 mL/min Normal 80 and above >35 mL/min Normal Female GFRInterpretation 20-39 yrs >60 mL/min Normal 40-49 yrs >58 mL/minNormal 50-59 yrs >51 mL/min Normal 60-69 yrs >45 mL/min Iqqabd79-20 yrs >39 mL/min Normal 80 and above >32 mL/min NormalLipase: (SANDY: 07/05/2020 16:30) ( MsgRcvd 07/05/2020 17:09) Final results Test Result Flag Units (Reference) LIPASE 13 U/L (13 - 60) 6 Clinical Report - Physicians/Mid Levels [facility] Emergency Department [address] [place] [address] Phone #: ext- [phone] 07/05/2020 15:34 Patient: OXANA CLANCY Sex: F : 1950 Age: 69y PT/PTT: (SANDY: 07/05/2020 16:30) ( MtgRcvd 07/05/2020 17:09) Final results Test Result Flag Units (Reference) PROTIME 18.7 H SECONDS (11.0 - 15.5) INR 1.54 H (0.93 - 1.23) PTT 44.9 H SECONDS (24.8 - 36.7) \\BLDo\\INR INTERPRETATION\\BLDx\\ Therapeutic range for Coumadin and related oral anticoagulants. - International Normalized Ratio (INR): 2.0 - 3.0 for Venous Thrombosis, Pulmonary Embolus, Tissue heart valves, Acute CT Atrial Fibrillation, Valvular heart disease and recurrent [...] concerns, or complaints. Pt recently discharged from [facility] for numerous nad various issues. Presents today [...] further eval. Pending resutls. reviewed documenation form [facility]. pt was on IV vanc. Does not [...] worsening. 7 Clinical Report - Physicians/Mid Levels [facility] Emergency Department [address] [place] [address] Phone #: ext- [phone] 07/05/2020 15:34 Patient: OXANA CLANCY Sex: F : 1950 Age: 69y Pt failed outpt therapy. Pt may be a candidtate for central line as oral abx are not working. Will contact [facility] for transfer to the [facility] as we do not have ortho, podiatry, or PICC team. Called [facility] and dicussed with Vivi [facility] calls back. Discuss with Dr. Yuan. Sts [...] health care provider (Tonia). Disposition: Transferred to [facility]. UTI (catheter associated) was not present [...] rce(s) Supporting Document(s) ID Date Data Source [id number] 07/11/2020 07:00:00 AM [facility] [address] Name Value Range Interpretation Code Description Data Tyra rce(s) Supporting Document(s) Bacteria identified in Blood by Culture [facility] NO GROWTH AFTER 5 DAYS ID Date Data Source [id number] 07/11/2020 08:12:00 AM [facility] Name Value Range Interpretation Code Description Data Tyra rce(s) Supporting Document(s) CULTURE BLOOD [facility] spital _CULTURE BLOOD_ [place] [address] IA# [id number] SEE SCANNED REPORT{ PRELIM ID Date Data Source [id number] 07/05/2020 05:54:00 PM [facility] Name Value Range Interpretation Code Description Data Tyra rce(s) Supporting Document(s) Erythrocyte sedimentation rate by Westergren method 111 mm/hr 0 - 30 H [facility] SED RATE REENTER 111 [facility] ID Date Data Source [id number] 07/05/2020 05:09:00 PM [facility] Name Value Range Interpretation Code Description Data Tyra rce(s) Supporting Document(s) Prothrombin time (PT) 18.7 SECONDS 11.0 - 15.5 H [facility] INR in Platelet poor plasma by Coagulation assay 1.54 0.93 - 1. 23 H [facility] aPTT in Blood by Coagulation assay 44.9 SECONDS 24.8 - 36.7 H [facility] \\BLDo\\INR INTERPRETATION\\BLDx\\ Therapeutic range for Coumadin and related oral anticoagulants. - International Normalized Ratio (INR): 2.0 - 3.0 for Venous Thrombosis, Pulmonary Embolus, Tissue heart valves, Acute CT Atrial Fibrillation, Valvular heart disease and recurrent Systemic Embolism. - International Normalized Ratio (INR): 2.5 - 3.5 for Mechanical Prosthetic valve. ID Date Data Source [id number] 07/05/2020 05:09:00 PM [facility] Name Value Range Interpretation Code Description Data Tyra rce(s) Supporting Document(s) C reactive protein [Mass/volume] in Serum or Plasma by High sensitivity method 14.86 MG/L 1.00 - 3.00 H [facility] HS-CRP CUT-OFF: RELATIVE RISK: <1.0 mg/L Low 1.0 - 3.0 mg/L Average >3.0 mg/L High Optimally, the average of HS-CRP results repeated two weeks apart should be used for risk assessment. ID Date Data Source [id number] 07/05/2020 05:09:00 PM [facility] Name Value Range Interpretation Code Description Data Tyra rce(s) Supporting Document(s) BNP 4850 PG/ML 0 - 125 [facility] [place] ID Date Data Source [id number] 07/05/2020 05:09:00 PM [facility] Name Value Range Interpretation Code Description Data Tyra rce(s) Supporting Document(s) Lipase [Enzymatic activity/volume] in Serum or Plasma 13 U/L 13 - 60 [facility] ID Date Data Source [id number] 07/05/2020 05:08:00 PM [facility] Name Value Range Interpretation Code Description Data Tyra rce(s) Supporting Document(s) COMPREHENSIVE METABOLIC PANEL [facility] COMPREHENSIVE METABOLIC PANEL Sodium [Moles/volume] in Serum or Plasma 136 mEq/L 134 - 153 [facility] Potassium [Moles/volume] in Serum or Plasma 4.3 mEq/L 3.6 - 5.0 [facility] Chloride [Moles/volume] in Serum or Plasma 105 mEq/L 98 - 107 [facility] Carbon dioxide, total [Moles/volume] in Serum or Plasma 24 MEQ/L 22 - 30 [facility] Glucose [Mass/volume] in Serum or Plasma 188 MG/DL 65 - 110 H [facility] BUN 44 MG/DL 7 - 21 H [facility] al Creatinine [Mass/volume] in Serum or Plasma 1.9 MG/DL 0.7 - 1.5 H [facility] BUN/CREAT 23 8 - 27 [facility] al Protein [Mass/volume] in Serum or Plasma 5.3 G/DL 6.3 - 8.2 L [facility] Albumin [Mass/volume] in Serum or Plasma 3.0 G/DL 3.9 - 5.0 L [facility] Globulin [Mass/volume] in Serum by calculation 2.3 GM/DL 2.4 - 3.2 L [facility] A/G RATIO 1.3 0.8 - 2.0 [facility] Calcium [Mass/volume] in Serum or Plasma 8.7 MG/DL 8.4 - 10.2 [facility] Bilirubin.total [Mass/volume] in Serum or Plasma <0.7 MG/DL 0.2 - 1.3 [facility] Alkaline phosphatase [Enzymatic activity/volume] in Serum or Plasma 106 U/L 38 - 126 [facility] Aspartate aminotransferase [Enzymatic activity/volume] in Serum or Plasma 20 U/L 5 - 40 [facility] Alanine aminotransferase [Enzymatic activity/volume] in Seru m or Plasma 20 U/L 7 - 56 [facility] Anion gap 3 in Serum or Plasma 7.0 mmol/L 8.0 - 16.0 L [facility] 69 [facility]min [facility] [place] AFR AMER GFR >60 [facility] Male GFR In terprentation 20-49 [...] >32 mL/min Normal ID Date Data Source [id number] 07/05/2020 05:04:00 PM [facility] Name Value Range Interpretation Code Description Data Tyra rce(s) Supporting Document(s) TROPONIN T 0.03 NG/ML 0.00 - 0.10 [facility] spital TROPONIN T0.1 ng/ml Recommended as the c linical threshold value forTroponin T. ID Date Data Source [id number] 07/05/2020 04:52:00 PM [facility] Name Value Range Interpretation Code Description Data Tyra e(s) Supporting Document(s) CBC W/AUTOMATED DIFF [facility] COMPLETE BLOOD COUNT Leukocytes [#/volume] in Blood by Automated count 11.7 10^3/uL 4.2 - 11.0 H [facility] Erythrocytes [#/volume] in Blood by Automated count 3.11 10^6/uL 4. 20 - 5.40 L [facility] Hemoglobin [Mass/volume] in Blood 8.8 g/dL 12.0 - 16.0 L [facility] Hematocrit [Volume Fraction] of Blood by Automated count 26.7 % 3 7.0 - 47.0 L [facility] Erythrocyte mean corpuscular volume [Entitic volume] by Auto mated count 85.9 fL 81.0 - 101 [facility] Erythrocyte mean corpuscular hemoglobin [Entitic mass] by Automated count 28.3 pg 27.0 - 34.0 [facility] Erythrocyte mean corpuscular hemoglobin concentration [Mass/volume] by Automated count 33.0 g/dL 31.0 - 36.0 [facility] Erythrocyte distribution width [Ratio] by Automated count 12.9 % 11.5 - 14.5 [facility] Platelets [#/volume] in Blood by Automated count 234 10^3/uL 150 - 45 0 [facility] Platelet mean volume [Entitic volume] in Blood by Automated count 10.3 fL 7.4 - 10.4 [facility] Neutrophils/100 leukocytes in Blood by Automated count 74.3 % 37. 0 - 80.0 [facility] Lymphocytes/100 leukocytes in Blood by Manual count 15.1 % 25.0 - 40.0 L [facility] Monocytes/100 leukocytes in Blood by Automated count 7.5 % 3.0 - 8.0 [facility] Eosinophils/100 leukocytes in Blood by Automated count 1.8 % 0.0 - 7.0 [facility] Basophils/100 leukocytes in Blood by Automated count 0.3 % 0.0 - 2.5 [facility] %IG 1.0 % 0.0 - 0.0 [facility] %NRBC 0.0 % 0.0 - 0.0 [facility] al Neutrophils [#/volume] in Blood by Automated count 8.73 10^3/uL 2.00 - 6.90 H [facility] Lymphocytes [#/volume] in Blood by Automated count 1.77 10^3/uL 0.60 - 3.40 [facility] Monocytes [#/volume] in Blood by Automated count 0.88 10^3/uL 0.00 - 0.90 [facility] Eosinophils [#/volume] in Blood by Automated count 0.21 10^3/uL 0.00 - 0.70 [facility] Basophils [#/volume] in Blood by Automated count 0.03 10^3/uL 0.00 - 0.20 [facility] #IG 0.12 10^3/uL 0.00 - 0.10 [facility] #NRBC 0.00 10^3/uL 0.00 - 0.00 [facility] ospital MANUAL DIFF NOT INDICATED [facility] RBC MORPH NOT INDICATED [facility] spital ID Date Data Source [id number] 05/31/2020 04:25:00 PM EDT [facility] 1 OrderSheet [facility] Emergency Department [address] [place] [address] Phone #: ext- [phone] 05/31/2020 16:14 Patient: [...] rce(s) Supporting Document(s) ID Date Data Source [id number] 05/31/2020 04:25:00 PM EDT [facility] 1 Medication Reconciliation Report [facility] Emergency Department [address] [place] [address] Phone #: ext- [phone] 05/31/2020 16:14 Patient: [...] 1 tablet, 2x a day, last dose: [id number] Lasix Oral (80 mg), daily Losartan Potassium Oral 50 mg, daily Multivitamins Oral 1 pill, daily Omeprazole Oral 40 mg, daily Potassium Citrate ER Oral (10 MEQ (1080 MG)) 1 tablet, 2x a day ROPINIRole HCl Oral (1 mg) 1 tablet, 2x a day, last dose: [id number] 0045 Sertraline HCl Oral 50 mg, 2x a day Spironolactone Oral 50 mg, 2x a day 2 Medication Reconciliation Report [facility] Emergency Department [address] [place] [address] Phone #: ext- [phone] 05/31/2020 16:14 Patient: [...] rce(s) Supporting Document(s) ID Date Data Source [id number] 05/31/2020 04:25:00 PM EDT [facility] 1 Medication Administration Record [facility] Emergency Department [address] [place] [address] Ph one #: ext- [phone] 05/31/2020 16:14 Patient: OXANA CLANCY Sex: F : 1950 Age: 69yWeight: 90.4 kgHeight/Length: 61 inBMI: 37.7ALLERGIES: Penicillins Date/Time Medication Administered Medication OrderedGiven SILVER NITRATE SWAB Silver Nitrate Swab 1 ttbyirifgma08:53 05/31/2020 Dose: 1 application Topical SolutionSimon Avelar R.N. Topical Name Value Range Interpretation Code Description Data Tyra rce(s) Supporting Document(s) ID Date Data Source [id number] 05/31/2020 04:25:00 PM EDT [facility] 1 General Instructions [facility] Emergency Department [address] [place] [address] Phon e #: ext- [phone] 05/31/2020 16:14 [...] closure or skin glue. 2 General Instructions [facility] Emergency Department [address] [place] [address] Phone #: ext- [phone] 05/31/2020 16:14 Patient: [...] pain medicines were prescribed, you can use wqqi-xky-cklisch pain medicines. Follow instructions for taking any [...] while the glue is 3 General Instructions [facility] Emergency Department [address] [place] [address] Phone #: ext- [phone] 05/31/2020 16:14 Patient: OXANA CLANCY Sex: F [...] be painful when eating. You may use oqhisz-aoj-tzqhump local numbing solution for pain relief. If [...] any of these occur: 4 General Instructions [facility] Emergency Department [address] [place] [address] Phone #: ext- [phone] 05/31/2020 16:14 Patient: [...] bleeding with direct pressure. 1999- 2017 [employer]. [address] [place] [address]. All rights reserved. This information is not intended as asubstitute for professional medical care. Always follow your healthcare professional's instructions. You have been given the following additional information: Laceration: All Closures(Electronically signed by Justino Luna P.A.-C 05/31/2020 23:24) Name Value Range Interpretation Code Description Data Tyra rce(s) Supporting Document(s) ID Date Data Source [id number] 05/31/2020 04:25:00 PM EDT [facility] 1 Clinical Report - Nurses [facility] Emergency Department [address] [place] [address] Phone #: ext- [phone] 05/31/2020 16:14 Patient: OXANA CLANCY Sex: F : 1950 Age: 69yTRIAGEArrived by private vehicle. Historian: patient. ( Pt presents with left thumb, pointer and ring finger lacfrom yesterday AM 0900, was seen at [facility] ER then urgent care c/o increased bleeding to [facility]).Acuity: LEVEL 3.Chief Complaint: INJURY TO LEFT [...] mg, daily. 2 Clinical Report - Nurses [facility] Emergency Department [address] [place] [address] Phone #: ext- [phone] 05/31/2020 16:14 Patient: [...] learning barriers present. Written instructions provided in Montserratian. 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 She left ambulatory [...] rce(s) Supporting Document(s) ID Date Data Source [id number] 05/31/2020 04:25:00 PM EDT [facility] 1 Clinical Report - Physicians/Mid Levels [facility] Emergency Department [address] [place] [address] Phone #: ext- [phone] 05/31/2020 16:14 Patient: [...] yesterday AM 0900. Pt was seen at [facility] ER, then to urgent care today [...] Heart Failure. Anemia. 2 Clinical Report - Physicians/[facility] Emergency Department [address] [place] [address] Phone #: ext- [phone] 05/31/2020 16:14 Patient: OXANA CLANCY [facility]#: [id number] Sex: F : 1950 Age: 69yHeart Disease.Hyperglycemia.Hypertension.Skin [...] 1 tablet, 2x a day, last dose [id number].Lasix Oral (Tablet 80 mg), daily.Losartan Potassium Oral 50 mg, daily.Multivitamins Oral 1 pill, daily.Omeprazole Oral 40 mg, daily.Potassium Citrate ER Oral (Tablet Extended Release 10 MEQ (1080 MG)) 1 tablet, 2x a day.ROPINIRole HCl Oral (Tablet 1 mg) 1 tablet, 2x a day, last dose [id number]. 3 Clinical Report - Physicians/Mid Levels [facility] Emergency Department [address] [place] [address] Phone #: ext- [phone] 05/31/2020 16:14 Patient: [...] chemcial 4 Clinical Report - Physicians/Mid Levels [facility] Emergency Department [address] [place] [address] Phone #: ext- [phone] 05/31/2020 16:14 Patient: OXANA [...] patient. 5 Clinical Report - Physicians/Mid Levels [facility] Emergency Department [address] [place] [address] Phone #: ext- [phone] 05/31/2020 16:14 Patient: OXANA CLANCY Sex: F : 1950 Age: 69y(Electronically signed by Justino Luna P.A.-C 05/31/2020 23:24) Name Value Range Interpretation Code Description Data Tyra rce(s) Supporting Document(s) ID Date Data Source [id number] 05/19/2020 07:31:00 PM EDT [facility] 1 OrderSheet [facility] Emergency Department [address] [place] [address] Phone #: ext- [phone] 05/19/2020 19:17 Patient: OXANA CLANCY Sex: F : 1950 Age: 69yWEIGHT:90.7 kg (S) HEIGHT:61 inches (S) BMI:37.8ALLERGIES: PenicillinsCHIEF COMPLAINT: Rt, great toeDIAGNOSIS: Avulsion of skinLAB ORDERSOrder Description Priority Entered Acknowledged InitialedDIAGNOSTIC STUDY ORDERSOrder Description Priority Entered Acknowledged InitialedMEDICATION/IV/DRIP/FLUID ORDERSOrder Description Priority Entered Acknowledged InitialedCephalexin PO 500 20:12 05/19/2020 20:15 mg Campblel Lee R.N.; Reason for ordering with alerts: [...] rce(s) Supporting Document(s) ID Date Data Source [id number] 05/19/2020 07:31:00 PM EDT [facility] 1 Medication Reconciliation Report [facility] Emergency Department [address] [place] [address] Phone #: ext- [phone] 05/19/2020 19:17 Patient: OXANA CLANCY Sex: F : 1950 Age: 69yWeight: 90.7 kgHeight/Length: 61 in.BMI: 37.8ALLERGIES: [facility] patient's Home Medications are listed below:CONTINUE TAKING [...] 1 tablet, 2x a day, last dose: [id number] Lasix Oral (80 mg), daily Losartan Potassium Oral 50 mg, daily Multivitamins Oral 1 pill, daily Omeprazole Oral 40 mg, daily Potassium Citrate ER Oral (10 MEQ (1080 MG)) 1 tablet, 2x a day ROPINIRole HCl Oral (1 mg) 1 tablet, 2x a day, last dose: [id number] Sertraline HCl Oral 50 mg, 2x a day Spironolactone Oral 50 mg, 2x a day 2 Medication Reconciliation Report [facility] Emergency Department [address] [place] [address] Phone #: ext- [phone] 05/19/2020 19:17 Patient: OXANA CLANCY Sex: F [...] Dispense 30capsule. Refills: 0. Substitution permitted.Pharmacy - [facility] [phone] ; [place] [address]. . -- BERTA Almonte Name Value Range Interpretation Code Description Data Tyra rce(s) Supporting Document(s) ID Date Data Source [id number] 05/19/2020 07:31:00 PM EDT [facility] 1 Medication Administration Record [facility] Emergency Department [address] [place] [address] Phone #: ext- [phone] 05/19/2020 19:17 Patient: OXANA CLANCY Sex: F [...] rce(s) Supporting Document(s) ID Date Data Source [id number] 05/19/2020 07:31:00 PM EDT [facility] 1 General Instructions [facility] Emergency Department [address] [place] [address] Phone #: ext- [phone] 05/19/2020 19:17 Patient: [...] Dispense 30capsule. Refills: 0. Substitution permitted.Pharmacy - [facility] [phone] ; [place] [address]. . 2 General Instructions [facility] Emergency Departme nt [address] [facility], [place] [address] Phone #: ext- [phone] 05/19/2020 19:17 Patient: OXANA CLANCY Sex: F [...] elf. Try to resist 3 General Instructions [facility] Emergency Department [address] [place] [address] Phone #: ext- [phone] 05/19/2020 19:17 Patient: OXANA CLANCY Sex: F : 1950 Age: 69y picking it off before that so the wound doesn't open up. When it gets wet, pat it dry.Here is some information about medicine: You may use qint-qre-dnngbrv medicine such as acetaminophen or ibuprofen to [...] if they will re-open 4 General Instructions [facility] Emergency Department [address] [place] [address] Phone #: ext- [phone] 05/19/2020 19:17 [id number] Sex: F : 1950 Age: 69y Bleeding not controlled by direct pressure 1999- 2017 [employer]. [address] [place] [address], [place] [address]. All rights reserved. This information is not intended as asubstitute for professional medical care. Always follow your healthcare professional's instructions. You have been given the following additional information: Skin Avulsion(Electronically signed by BERTA Almonte 05/19/2020 21:43) Name Value Range Interpretation Code Description Data Tyra rce(s) Supporting Document(s) ID Date Data Source [id number] 05/19/2020 07:31:00 PM EDT [facility] 1 Clinical Report - Nurses [facility] Emergency Department [address] [place] [address] Phone #: ext- [phone] 05/19/2020 19:17 Patient: OXANA CLANCY Sex: F : 1950 Age: 69yTRIAGEArrived by private vehicle. Historian: patient. Accompanied by friend.Triage time: 19:05/19/2020.Chief Complaint: RIGHT LOWER EXTREMITY PAIN.An injury may have occurred. Occurred at home. This started last night. ( Tore skin off the outside ofright great toe). The patient has had swelling.Treatment LINE LEAD:(Antibiotic ointment).SEPSIS SCREEN: SIRS Screen negative. Sepsis Screen negative. No suspected or confirmed signs ofinfection present. --19:05/19/20 Matt Quintanilla RN19:05/19/20. BP: 138/64 (regular adult cuff) taken on the left arm, via an automated monitor, whilelying. MAP: 88. HR: 71 (regular, normal rate and strong). RR: 18 (regular, unlabored and normal). B6kyaofhnzdn: 97% on room air. Temp: 97.7 F. Pain level now: 0/10. --19:25 05/19/20 LORRAINE Brownecuity: LEVEL 4. --19:32 05/19/20 Matt Quintanilla RN.Weight: 90.7 kg stated. Height/Length: 61 inches Per Patient. BMI: 37.8. --19:21 05/19/20 Matt Quintanilla RN.MedicationsAspirin Oral 81 mg, daily. Atorvastatin Calcium [...] a day. 2 Clinical Report - Nurses [facility] Emergency Department [address] [place] [address] Phone #: ext- [phone] 05/19/2020 19:17 [id number] Sex: F : 1950 Age: 69y Spironolactone [...] factors identified. --19:25 05/19/20 Matt Quintanilla RN.PHYSICAL [id number] 05/19/20. Ambulatory to room. 3 Clinical Report - Nurses [facility] Emergency Department [address] [place] [address] Phone #: ext- [phone] 05/19/2020 19:17 --- [id number] Sex: F : 1950 Age: 69y GENERAL [...] 0.5 mL given(Lot#: [id number], expiration date: 06/08/2022, Band Tacker: [employer]). Given in the right deltoid. Allergies verified [...] Patient verbalized understanding. Written instructions provided in Montserratian. 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 She was discharged home. She left ambulatory and via private vehicle. Family member driving. --20:47 05/19/20 Vivi Quintanilla R.N. 20:46 05/19/20. BP: deferred. HR: deferred. RR: deferred. O2 saturation: deferred. Temp: deferred. Pain level now deferred. --20:47 05/19/20 Vivi Quintanilla R.N.Locked/Released at 05/19/2020 22:10 by Harry Lee R.N. Name Value Range Interpretation Code Description Data Tyra rce(s) Supporting Document(s) ID Date Data Source [id number] 05/19/2020 07:31:00 PM EDT [facility] 1 Clinical Report - Physicians/Mid Levels [facility] Emergency Department [address] [place] [address] Phone #: ext- [phone] 05/19/2020 19:17 [id number] Sex: F : 1950 Age: 69y Time [...] plan.). 2 Clinical Report - Physicians/Mid Levels [facility] Emergency Department [address] [place] [address] Phone #: ext- [phone] 05/19/2020 19:17 Patient: [...] permitted. 3 Clinical Report - Physicians/Mid Levels [facility] Emergency Department [address] [place] [address] Phone #: ext- [phone] 05/19/2020 19:17 Patient: OXANA CLANCY Sex: F : 1950 Age: 69y Pharmacy - [facility] [phone] ; [place] [address]. . Follow-up: Follow up with a specialist Podiatry. Reason for referral: evaluation and treatment. Summary of care provided to patient. Understanding of the discharge instructions verbalized by patient.(Electronically signed by BERTA Almonte 05/19/2020 21:43) Name Value Range Interpretation Code Description Data Tyra rce(s) Supporting Document(s) ID Date Data Source [id number] 05/02/2020 08:58:00 AM [facility] Name Value Range Interpretation Code Description Data Tyra rce(s) Supporting Document(s) Hemoglobin A1c 4.4-6.2 Above high normal [facility] Estimated Avg Glucose 192 mg/dL 126-240 Normal (applies to non-numeric results) [facility] ID Date Data Source [id number] 05/02/2020 08:58:00 AM [facility] Name Value Range Interpretation Code Description Data Tyra rce(s) Supporting Document(s) Sodium 142 mmol/L 136-145 Normal (applies to non-numeric resul ts) [facility] Potassium 3.5-5.1 Normal (applies to non-numeric resul ts) [facility] Chloride 104 mmol/L 98-107 Normal (applies to non-numeric resul ts) [facility] Carbon Dioxide CO2 21-32 Normal (applies to non-numer ic results) [facility] Anion Gap 5.0-16.0 Normal (applies to non-numeric resul ts) [facility] BUN 49 mg/dL 7-18 Above high normal [facility] ospital Creatinine,Serum 0.7-1.2 Above high normal [facility] GFR 26 mL/min >60 Below low normal [facility] spital Glucose Level 152 mg/dL 60-99 Above high normal [facility] Reference range is only applicable when patient is fasting Note the following drug interference: Sulfasalazine Sulfapyridine Can see falsely depressed Can see falsely elevated result with up to 17% results with up to 11% decrease in measurement increase in measurement Recommend patients be collected for this test prior to administration of either drug. Calcium 8.5-10.1 Normal (applies to non-numeric resul ts) [facility] ID Date Data Source [id number] 05/02/2020 08:58:[address] [facility] Name Value Range Interpretation Code Description Data Tyra rce(s) Supporting Document(s) Triglycerides 149 mg/dL <150 Normal (applies to non-numeric re sults) [facility] Cholesterol 225 mg/dL 100-[address] [facility] LDL Cholesterol Calculated 134 0-[address] [facility] HDL Cholesterol 61 mg/dL 40-60 Above high normal [facility] Cholesterol/HDL Ratio 3.6-6.7 Normal (applies to non-nu meric results) [facility] ID Date Data Source [id number] 05/02/2020 08:58:[address] [facility] Name Value Range Interpretation Code Description Data Tyra rce(s) Supporting Document(s) B-Type Natriuretic Peptide BNP <[address] [facility] Results of this test should always be us ed in conjunction with the patients medical history, clinical presentation, and other findings. ID Date Data Source [id number] 05/02/2020 08:36:[address] [facility] Name Value Range Interpretation Code Description Data Tyra rce(s) Supporting Document(s) White Blood Count 3.5-10.5 Normal (applies to non-numeri c results) [facility] Red Blood Count 3.90-5.00 Below low normal [facility] Hemoglobin 12.0-15.5 Below low normal [facility] ospital Hematocrit 34.9-44.5 Below low normal [facility] Mean Corpuscular Volume 81.2-95.1 Normal (applies to non- numeric results) [facility] Mean Corpuscular Hgb 25.6-32.2 Normal (applies to non-num [place] results) [facility] Mean Corpuscular Hgb Conc 32.0-36.0 Normal (applies to no n-numeric results) [facility] Red Cell Distribution Width 11.9-15.5 Normal (appli es to non-numeric results) [facility] Platelet Count 182 x10 3/uL 150-450 Normal (applies to non-numeric results) [facility] Mean Platelet Volume 9.4-12.4 Normal (applies to non-num [place] results) [facility] Neutrophils% (Auto) 31.0-71.0 Normal (applies to non-nume yun results) [facility] Lymphocytes% (Auto) 20.0-55.0 Normal (applies to non-nume yun results) [facility] Monocytes% (Auto) 4.0-12.0 Normal (applies to non-numeri c results) [facility] Eosinophils% (Auto) 1.0-8.0 Normal (applies to non-nume yun results) [facility] Basophils% (Auto) 0.0-2.0 Normal (applies to non-numeri c results) [facility] Immature Granulocytes% (Auto) 0.0-2.0 Normal (juanita lies to non-numeric results) [facility] Neutrophils# (Auto) 1.50-6.20 Normal (applies to non-nume yun results) [facility] Lymphocytes# (Auto) 1.20-4.00 Normal (applies to non-nume yun results) [facility] Monocytes# (Auto) 0.00-0.90 Normal (applies to non-numeri c results) [facility] Eosinophils# (Auto) 0.00-0.50 Normal (applies to non-nume yun results) [facility] Basophils# (Auto) 0.00-0.20 Normal (applies to non-numeri c results) [facility] Immature Granulocytes# (Auto) 0.00-7.00 No rmal (applies to non-numeric results) [facility] Procedure Social History Code Duration Value Status Description Data Source(s ) Alcohol intake 02/09/2021 12:00:00 AM EDT Current non-d swapna of alcohol (finding) completed Current non-drinker of alcohol (finding) [facility] Alcohol intake 01/15/2021 12:00:00 AM EDT Current drinker of al cohol (finding) completed Current drinker of alcohol (finding) [facility] Tobacco use and exposure 01/15/2021 12:00:00 AM EDT Never used co mpleted Never used [facility] Smoking 01/15/2021 12:00:00 AM EDT Former smoker completed Former smoker [facility] Smoking 07/17/2020 12:00:00 AM EST Never Smoked A Pipe complet ed Never Smoked A Pipe [facility] ([facility]) Vital Signs ID Date Data Source [id number] Name Value Range Interpretation Code Description Data Source(s) Systolic blood pressure 198 mm[Hg] 198 mm[Hg] M EDENT ([facility], ) Diastolic blood pressure 74 mm[Hg] 74 mm[Hg] [facility] ([facility], ) Body temperature 98.2 [degF] 98.2 [degF] [facility] ([facility], ) Body height 61 [in_i] 61 [in_i] [facility] ([facility], ) 5'1" Body weight 188.12 [lb_av] 188.12 [lb_av] MEDEN T ([facility]) Body mass index (BMI) [Ratio] 35.5 kg/m2 35.5 k g/m2 [facility] ([facility]) [place] body weight 105 [lb_av] 105 [lb_av] MEDEN T ([facility]) Body weight 85.334 kg 85.334 kg [facility] ([facility]) Body surface area Derived from formula 1.84 m2 1.84 m2 [facility] Body height 61 [in_i] 61 [...] MD) Heart rate 80 /min 80 /min [facility] (George Minor MD) Oxygen saturation in Arterial blood by Pulse oximetry 97 % 97 % [facility] (George Minor MD) Heart rate 88 /min 88 /min [facility] ([facility]) Body height 61 [in_i] 61 [in_i] [facility] ([facility]) 5'1" Body weight 188.38 [lb_av] 188.38 [lb_av] MEDEN T ([facility]) [place] body weight 105 [lb_av] 105 [lb_av] MEDEN T ([facility]) Body weight 85.447 kg 85.447 kg [facility] ([facility]) Systolic blood pressure 137 mm[Hg] 137 mm[Hg] M EDENT ([facility]) Diastolic blood pressure 73 mm[Hg] 73 mm[Hg] [facility] ([facility], ) Body temperature 98.3 [degF] 98.3 [degF] [facility] ([facility]) Body mass index (BMI) [Ratio] 35.6 kg/m2 35.6 k g/m2 [facility] ([facility]) Body surface area Derived from formula 1.84 m2 1.84 m2 [facility] ([facility]) Systolic blood pressure 140 mm[Hg] 140 mm[Hg] M EDENT (George Minor MD) Diastolic blood pressure 71 mm[Hg] 71 mm[Hg] [facility] (George Minor MD) Heart rate 96 /min 96 /min [facility] (George Minor MD) Oxygen saturation in Arterial blood by Pulse oximetry 99 % 99 % [facility] (George Minor MD) Respiratory rate 18 /min 18 /min [facility] ( George Minor MD) Body height 61 [in_i] 61 [in_i] [facility] (George Minor MD) 5'1" Body weight 186.38 [lb_av] 186.38 [lb_av] [facility] T (George Minor MD) Body mass index (BMI) [Ratio] 35.2 kg/m2 35.2 k g/m2 [facility] (George Minor MD) Body temperature 97.9 [degF] 97.9 [degF] [facility] (George Minor MD) Systolic blood pressure 181 mm[Hg] 181 mm[Hg] [facility] Diastolic blood pressure 72 mm[Hg] 72 mm[Hg] [facility] Heart rate 65 /min 65 /min [facility] Body temperature 36.72 Jackie 36.72 Jackie [facility] Respiratory rate 18 /min 18 /min [facility] Oxygen saturation in Arterial blood by Pulse oximetry 96 % 96 % [facility] Body weight 85.186 kg 85.186 kg [facility] Body mass index (BMI) [Ratio] 36.68 kg/m2 36.68 kg/m2 [facility] Body height 152.4 cm 152.4 cm [facility] Body temperature 97.9 [degF] 97.9 [degF] [...] Diastolic blood pressure 63 mm[Hg] 63 mm[Hg] [facility] (George Minor [facility]) Oxygen saturation in Arterial blood by Pulse oximetry 98 % 98 % [facility] (George Minor MD) Heart rate 90 /min 90 /min [facility] (George Minor MD) Body mass index (BMI) [Ratio] 37.4 kg/m2 37.4 k g/m2 [facility] ([facility]) Body height 61 [in_i] 61 [in_i] [facility] ([facility]) 5'1" Body surface area Derived from formula 1.88 m2 1.88 m2 [facility] ([facility]) [place] body weight 105 [lb_av] 105 [lb_av] MED[facility] T ([facility]) Body weight 89.813 kg 89.813 kg [facility] ([facility]) Body weight 198.00 [lb_av] 198.00 [lb_av] [facility] Body height 61 [in_i] 61 [in_i] [facility] ([facility]) 5'1" Body weight 198.00 [lb_av] 198.00 [lb_av] [facility] T ([facility]) Body mass index (BMI) [Ratio] 37.4 kg/m2 37.4 k g/m2 [facility] ([facility]) [place] body weight 105 [lb_av] 105 [lb_av] [facility] T ([facility]) Body weight 89.813 kg 89.813 kg [facility] ([facility]) Body surface area Derived from formula 1.88 m2 1.88 m2 [facility] ([facility]) Systolic blood pressure 185 mm[Hg] 185 mm[Hg] [facility] Body surface area Derived from formula 1.89 m2 1.89 m2 [facility] ([facility]) Body weight 91.230 kg 91.230 kg [facility] ([facility]) [place] body weight 105 [lb_av] 105 [lb_av] [facility] T ([facility]) Diastolic blood pressure 72 mm[Hg] 72 mm[Hg] [facility] ([facility]) Heart rate 71 /min 71 /min [facility] ([facility]) Body height 61 [in_i] 61 [in_i] [facility] ([facility]) 5'1" Body weight 201.12 [lb_av] 201.12 [lb_av] [facility] T ([facility]) Body mass index (BMI) [Ratio] 38.0 kg/m2 38.0 k g/m2 [facility] ([facility]) Diastolic blood pressure 65 mm[Hg] 65 mm[Hg] [facility] ([facility]) Body height 61 [in_i] 61 [in_i] [facility] ([facility]) 5'1" [place] body weight 105 [lb_av] 105 [lb_av] [facility] T ([facility]) Systolic blood pressure 134 mm[Hg] 134 mm[Hg] [facility] Body weight 197.12 [lb_av] 197.12 [lb_av] [facility] T ([facility]) Body mass index (BMI) [Ratio] 37.2 kg/m2 37.2 k g/m2 [facility] ([facility]) Body weight 89.416 kg 89.416 kg [facility] ([facility]) Body surface area Derived from formula 1.88 m2 1.88 m2 [facility] ([facility]) Oxygen saturation in Arterial blood by Pulse oximetry 96 % 96 % [facility] (George Minor MD) Body height 61 [in_i] 61 [in_i] [facility] (George Minor MD) 5'1" Body weight 192.00 [lb_av] 192.00 [lb_av] [facility] (George Minor MD) Body mass index (BMI) [Ratio] 36.3 kg/m2 36.3 k g/m2 [facility] (George Minor MD) Body temperature 98.1 [degF] 98.1 [degF] [facility] (George Minor MD) Systolic blood pressure 152 mm[Hg] 152 mm[Hg] [facility] (George Minor MD) Diastolic blood pressure 72 mm[Hg] 72 mm[Hg] [facility] (George Minor MD) Heart rate 70 /min 70 /min [facility] (George Minor MD) Body weight 198.38 [lb_av] 198.38 [lb_av] [facility] Systolic blood pressure 152 mm[Hg] 152 mm[Hg] [facility] ([facility]) Diastolic blood pressure 60 mm[Hg] 60 mm[Hg] [facility] ([facility]) Body height 61 [in_i] 61 [in_i] [facility] ([facility]) 5'1" Body surface area Derived from formula 1.88 m2 1.88 m2 [facility] ([facility]) Body mass index (BMI) [Ratio] 37.5 kg/m2 37.5 k g/m2 [facility] ([facility]) [place] body weight 105 [lb_av] 105 [lb_av] [facility] ([facility]) Body weight 89.983 kg 89.983 kg [facility] ([facility]) Body mass index (BMI) [Ratio] 36.5 kg/m2 36.5 k g/m2 [facility] (George Minor MD) Systolic blood pressure 121 mm[Hg] 121 mm[Hg] [facility]George Minor MD[facility] Body height 61 [in_i] 61 [in_i] [facility] (George Minor MD) 5'1" Body weight 193.00 [lb_av] 193.00 [lb_av] [facility] (George Minor MD) Body temperature 97.7 [degF] 97.7 [degF] [facility] (George Minor MD) Diastolic blood pressure 52 mm[Hg] 52 mm[Hg] [facility] (George Minor MD) Heart rate 67 /min 67 /min [facility] (George Minor MD) Oxygen saturation in Arterial blood by Pulse oximetry 98 % 98 % [facility] (George Minor MD) Systolic blood pressure 92 mm[Hg] 92 mm[Hg] M [facility] ([facility]) Diastolic blood pressure 44 mm[Hg] 44 mm[Hg] [facility] ([facility]) Body height 61 [in_i] 61 [in_i] [facility] ([facility]) 5'1" [place] body weight 105 [lb_av] 105 [lb_av] [facility] ([facility]) Body weight 89.416 kg 89.416 kg [facility] ([facility]) Body surface area Derived from formula 1.88 m2 1.88 m2 [facility] ([facility]) Body weight 197.12 [lb_av] 197.12 [lb_av] [facility] ([facility]) Body mass index (BMI) [Ratio] 37.2 kg/m2 37.2 k g/m2 [facility] ([facility]) Systolic blood pressure 130 mm[Hg] 130 mm[Hg] [facility]George Minor MD[facility] Body weight 193.00 [lb_av] 193.00 [lb_av] [facility] (George Minor MD) Heart rate 71 /min 71 /min [facility]George Minor [facility] Body mass index (BMI) [Ratio] 36.5 kg/m2 36.5 k g/m2 [facility] (George Minor MD) Body temperature 97.5 [degF] 97.5 [degF] [facility] (George Minor MD) Oxygen saturation in Arterial blood by Pulse oximetry 97 % 97 % [facility] (George Minor MD) Body height 61 [in_i] 61 [in_i] [facility] (George Minor MD) 5'1" Diastolic blood pressure 64 mm[Hg] 64 mm[Hg] [facility] (George Minor MD) Respiratory rate 18 /min 18 /min [facility] ( George Minor MD) Systolic blood pressure 166 mm[Hg] 166 mm[Hg] [facility] ([facility]) Diastolic blood pressure 80 mm[Hg] 80 mm[Hg] [facility] ([facility]) Body height 61 [in_i] 61 [in_i] [facility] ([facility]) 5'1" Body weight 192.00 [lb_av] 192.00 [lb_av] [facility] ([facility]) Body mass index (BMI) [Ratio] 36.3 kg/m2 36.3 k g/m2 [facility] ([facility]) [place] body weight 105 [lb_av] 105 [lb_av] [facility] ([facility]) Body weight 87.091 kg 87.091 kg [facility] ([facility]) Body surface area Derived from formula 1.86 m2 1.86 m2 [facility] ([facility]) Systolic blood pressure 135 mm[Hg] 135 mm[Hg] M [facility] ([facility]) Diastolic blood pressure 60 mm[Hg] 60 mm[Hg] [facility] ([facility]) Body weight 210.00 [lb_av] 210.00 [lb_av] [facility] ([facility]) Body mass index (BMI) [Ratio] 39.7 kg/m2 39.7 k g/m2 [facility] ([facility]) [place] body weight 105 [lb_av] 105 [lb_av] [facility] ([facility]) Body weight 95.256 kg 95.256 kg [facility] ([facility], ) Body height 61 [in_i] 61 [in_i] [facility] ([facility] ) 5'1" ID Date Data Source [id number] 05/23/2021 10:43:00 AM EDT [facility] Name Value Range Interpretation Code Description Data Source(s) Weight (Calculated Kilograms) 90.29 90.29 [facility] Height (Calculated Centimeters) 154.94 154. 94 [facility] Body Mass Index (BMI) 37.5 37.5 [facility] ID Date Data Source [id number] 03/22/2021 12:02:00 AM EDT [facility]ital Name Value Range Interpretation Code Description Data Source(s) Weight (Calculated Kilograms) 91.[address] [facility] Height (Calculated Centimeters) 154.[address] [facility] Body Mass Index (BMI) 38.1 38.1 [facility] ID Date Data Source [id number] 01/25/2021 11:18:02 AM EDT [facility] Name Value Range Interpretation Code Description Data Source(s) WEIGHT RECORDED 200.62 lb 200.62 lb [facility] WEIGHT RECORDED 206.13 lb 206.13 lb [facility] Body height Measured 61 in 61 in [facility] WEIGHT RECORDED 194 lb 194 lb [facility] WEIGHT RECORDED 198 lb 198 lb [facility] Body height Measured 61 in 61 in [facility] TRANSFER FROM [facility] ID Date Data Source [id number] 02/01/2021 07:12:00 AM EDT [facility]ital Name Value Range Interpretation Code Description Data Source(s) Weight (Calculated Kilograms) 91.[address] [facility] Height (Calculated Centimeters) 154.[address] [facility] Body Mass Index (BMI) 38.1 38.1 [facility] ID Date Data Source [id number] 02/07/2021 08:51:00 AM EDT [facility] Name Value Range Interpretation Code Description Data Source(s) Weight (Calculated Kilograms) 90.29 90.29 [facility] Height (Calculated Centimeters) 154.94 154. 94 [facility] Body Mass Index (BMI) 37.5 37.5 [facility] ID Date Data Source [id number] 01/17/2021 07:54:00 AM EDT [facility] Name Value Range Interpretation Code Description Data Source(s) Weight (Calculated Kilograms) 90.29 90.29 [facility] Height (Calculated Centimeters) 154.94 154. 94 [facility] Body Mass Index (BMI) 37.5 37.5 [facility] ID Date Data Source [id number] 11/29/2020 08:29:00 AM EDT [facility] Name Value Range Interpretation Code Description Data Source(s) Weight (Calculated Kilograms) 90.29 90.29 [facility] Height (Calculated Centimeters) 154.94 154. 94 [facility] Body Mass Index (BMI) 37.5 37.5 [facility] ID Date Data Source [id number] 10/11/2020 09:29:00 AM EST [facility] Name Value Range Interpretation Code Description Data Source(s) Weight (Calculated Kilograms) 90.29 90.29 [facility] Height (Calculated Centimeters) 154.94 154. 94 [facility] Body Mass Index (BMI) 37.5 37.5 [facility] ID Date Data Source [id number] 06/14/2020 10:38:00 AM EDT [facility] spital Name Value Range Interpretation Code Description Data Source(s) Weight Measurement Method [address] [facility] Weight (Calculated Kilograms) 91.[address] [facility] Weight 3200 3200 [facility] pital Temperature Source 7 7 [facility] Temperature 98.4 98.4 [facility] spital Respiratory Effort 1 1 [facility] Respiratory Rate 16 16 [facility] Pulse Assessment Method 4 4 [facility] Pulse Rate 74 74 [facility] pital Height (Calculated Centimeters) 154.[address] [facility] Height 61 61 [facility] Blood Pressure 194/[address] [facility] Body Mass Index (BMI) 38.1 38.1 [facility] Weight Measurement Method [address] [facility] Weight (Calculated Kilograms) 91.[address] [facility] Weight 3200 3200 [facility] pital Temperature Source 7 7 [facility] Temperature 98.4 98.4 [facility] spital Respiratory Effort 1 1 [facility] Respiratory Rate 16 16 [facility] Pulse Assessment Method 4 4 [facility] Pulse Rate 74 74 [facility] pital Height (Calculated Centimeters) 154.[address] [facility] Height 61 61 [facility] pital Blood Pressure 194/ 194/78 [facility] Body Mass Index (BMI) 38.1 38.1 [facility] Weight (Calculated Kilograms) 91.[address] [facility] Height (Calculated Centimeters) 154.[address] [facility] Body Mass Index (BMI) 38.1 38.1 [facility] ID Date Data Source [id number] 06/14/2020 09:37:00 AM EDT [facility] Name Value Range Interpretation Code Description Data Source(s) Weight (Calculated Kilograms) 90.29 90.29 [facility] Height (Calculated Centimeters) 154.94 154. 94 [facility] Body Mass Index (BMI) 37.5 37.5 [facility] ID Date Data Source [id number] 05/03/2020 12:01:00 AM EDT [facility] spital Name Value Range Interpretation Code Description Data Source(s) Weight (Calculated Kilograms) 91.[address] [facility] Height (Calculated Centimeters) 154.[address] [facility] Body Mass Index (BMI) 38.1 38.1 [facility] ID Date Data Source [id number] 08/30/2020 07:58:00 AM EST [facility] spital Name Value Range Interpretation Code Description Data Source(s) Weight Measurement Method [address] [facility] Weight (Calculated Kilograms) 91.[address] [facility] Weight 3168 3168 [facility] pital Temperature Source 7 7 [facility] Temperature 96.9 96.9 [facility] spital Respiratory Effort 1 1 [facility] Respiratory Rate 16 16 [facility] Pulse Assessment Method 4 4 [facility] Pulse Rate 54 54 [facility] pital Height (Calculated Centimeters) 154.[address] [facility] 61 [facility]68 186/68 [facility] Body Mass Index (BMI) 38.1 38.1 [facility] Weight Measurement Method [address] [facility] Weight (Calculated Kilograms) 91.[address] [facility] Weight 3168 3168 [facility] pital Temperature Source 7 7 [facility] Temperature 96.9 96.9 [facility] spital Respiratory Effort 1 1 [facility] Respiratory Rate 16 16 [facility] Pulse Assessment Method 4 4 [facility] Pulse Rate 51 51 [facility] pital Height (Calculated Centimeters) 154.[address] [facility] Height 61 61 [facility] 175/65 175/65 [facility] Body Mass Index (BMI) 38.1 38.1 [facility] Weight (Calculated Kilograms) 91.[address] [facility] Height (Calculated Centimeters) 154.[address] [facility] Body Mass Index (BMI) 38.1 38.1 [facility] Weight (Calculated Kilograms) 91.[address] [facility] Height (Calculated Centimeters) 154.[address] [facility] Body Mass Index (BMI) 38.1 38.1 [facility] Weight (Calculated Kilograms) 91.[address] [facility] Height (Calculated Centimeters) 154.[address] [facility] Body Mass Index (BMI) 38.1 38.1 [facility] Patient Treatment Plan of Care Planned Activity Planned Date Details Description Data Source (s) Amlodipine 5 MG Oral Tablet 02/12/2021 12:00:00 AM EDT [facility] Aspirin 81 MG Delayed Release Oral Tablet 02/11/2021 12:00:00 AM ED T [facility] clopidogrel 75 MG Oral Tablet 02/11/2021 12:00:00 AM EDT [facility] Nitroglycerin 0.4 MG Sublingual Tablet 02/11/2021 12:00:00 AM EDT [facility] carvedilol 12.5 MG Oral Tablet 02/11/2021 12:00:00 AM EDT [facility] Nitroglycerin 0.4 MG Sublingual Tablet 02/07/2021 03:34:10 PM EDT [facility] Acetaminophen 325 MG / Oxycodone Hydrochloride 5 MG Or al Tablet 02/07/2021 03:33:30 PM EDT [facility] 3 ML Insulin Lispro 100 UNT/ML Pen Injector 01/19/2021 12:00:00 AM [facility] 3 ML Insulin Lispro 100 UNT/ML Pen Injector 01/19/2021 12:00:00 AM [facility] Insulin Syringe-Needle U-100 31G X 15/64" 0.5 ML 01/19/2021 12:00:0 0 AM [facility] 3 ML Insulin Lispro 100 UNT/ML Pen Injector 01/19/2021 12:00:00 AM [facility] Insulin Pen Needle 31G X 5 MM 01/19/2021 12:00:00 AM [facility] 3 ML Insulin Glargine 100 UNT/ML Pen Injector 01/19/2021 12:00:00 A M [facility] Isopropyl Alcohol 0.7 ML/ML Medicated Pad 01/19/2021 12:00:00 AM [facility] FreeStyle [place] Lite w/Device Kit 01/19/2021 12:00:00 AM [facility] FreeStyle Lancets 01/19/2021 12:00:00 AM [facility] FreeStyle Lite Test In Vitro Strip (glucose blood) 01/19/2021 12 :00:00 AM [facility] Metolazone 2.5 MG Oral Tablet 01/18/2021 12:00:00 AM [facility] Insulin Glargine 100 UNT/ML Injectable Solution 01/18/2021 12:00:00 AM [facility] 24 HR Nifedipine 60 MG Extended Release Oral Tablet 01/19/20 12:00:00 AM [facility] Sodium Chloride 0.111 MEQ/ML Nasal Solution 01/18/2021 12:00:00 AM [facility] Oxymetazoline hydrochloride 0.5 MG/ML Nasal [place] 01/18/2021 12: 00:00 AM [facility] atorvastatin 40 MG Oral Tablet 01/18/2021 12:00:00 AM [facility] torsemide 100 MG Oral Tablet 01/18/2021 12:00:00 AM [facility] Cyclobenzaprine hydrochloride 10 MG Oral Tablet 01/15/2021 06:57:42 PM [facility] Hydroxyzine Hydrochloride 10 MG Oral Tablet 01/15/2021 06:57:18 PM [facility] Hydralazine Hydrochloride 20 MG/ML Injectable Solution 01/14/2021 06:43:[address] [facility] ospital perflutren lipid microspheres ([employer]) injectable chun spension 9.78 mg 01/14/2021 05:50:15 PM [facility] dextrose 50 % IV solution 25 mL 01/14/2021 05:09:51 PM [facility] Glucagon 1 MG Injection 01/14/2021 05:09:51 PM [facility] Glucose 0.417 MG/MG Oral Gel 01/14/2021 05:09:51 PM [facility] carvedilol 25 MG Oral Tablet 2020 12:00:00 AM [facility] ropinirole 1 MG Oral Tablet 12/10/2020 12:00:00 AM [facility] Amlodipine 10 MG Oral Tablet 11/13/2020 12:00:00 AM [facility] ammonium lactate 120 MG/ML Topical Cream 10/27/2020 12:00:00 AM [facility] Trelegy Ellipta 100-62.5-25 MCG/INH Aerosol Powder [place] [employer] Activated 10/15/2020 12:00:00 AM [facility] ospital torsemide 100 MG Oral Tablet 10/10/2020 12:00:00 AM [facility] cefdinir 300 MG Oral Capsule 09/13/2020 12:00:00 AM [facility] atorvastatin 40 MG Oral Tablet 04/13/2020 12:00:00 AM EDT [facility] clopidogrel 75 MG Oral Tablet 03/29/2020 12:00:00 AM EDT [facility] Aspirin 81 MG Delayed Release Oral Tablet 05/21/2019 12:00:00 AM ED T [facility] HUMULIN R U-500 KWIKPEN 500 UNIT/ML SOPN 05/07/2019 12:00:00 AM EDT [facility] Metolazone 2.5 MG Oral Tablet [facility] carvedilol 25 MG Oral Tablet [facility] Amlodipine 10 MG Oral Tablet [facility] Acetaminophen 325 MG / Oxycodone Hydrochloride 5 MG Oral Tablet [facility] Hydralazine Hydrochloride 25 MG Oral Tablet [facility] Regular Insulin, Human 500 UNT/ML Injectable Solution [facility]
[2021-06-29] MEDS ORDERED: LABETALOL 100MG TAB PO ONE (18:40)
[2021-06-29] MEDS ORDERED: CARVedilol 12.5 MG TAB PO ONE (18:40)
--- NOTE | 2021-06-29 19:10 | ECGEPIP ---
[facility] - ED Test Date: 2021-06-29 Pat Name: MARCIN WALTER Department: Room: - Gender: Female [employer]inter: : [id number] Requested By: Catalino Alcazar Order Number: [id number] Reading MD: Rosanne Hernandez Measurements Intervals [place] Rate: 113 P: [place]: QRS: -15 QRSD: 94 T: 99 QT: 376 QTc: 515 Interpretive Statements Atrial fibrillation with rapid ventricular response Minimal voltage criteria for LVH, may be normal variant ( [employer] product ) Septal infarct , age undetermined prolonged qtc Marked ST abnormality, possible subendocardial injury, clinical correlation 02/15/21 sinus rhythm Electronically Signed on 06-29-2021 19:09:58 EDT by Rosanne Hernandez
[2021-06-29] MEDS ORDERED: MAALOX 30 ML SUSP *UDC PO PRN (21:15)
[2021-06-29] MEDS ORDERED: DEXTROSE 50% 50 ML SYRINGE IV PRN (21:15)
[2021-06-29] MEDS ORDERED: GLUCAGON INJ 1MG VIAL SC PRN (21:15)
[2021-06-29] MEDS ORDERED: MOM 30ML SUSPENSION UDC PO PRN (21:15)
[2021-06-29] MEDS ORDERED: ACETAMINOPHEN TAB 650MG DOSE (2X325MG) PO PRN (21:15)
[2021-06-29] MEDS ORDERED: GLUCOSE 4GM CHEW TABLET PO PRN (21:15)
--- NOTE | 2021-06-29 21:17 | HPEPDOC ---
[facility] History & Physical Date of Admission Jun 29, 2021 Date of Service: Jun 29, 2021 Attending Physician: JACKLYN LYNN MD History and Physical TIME OF SERVICE: 1038PM CHIEF COMPLAINT: difficulties breathing HISTORY OF PRESENT ILLNESS: Ms. Clancy is a 70 yr old F who presented w c/o difficulties breathing and chest pain / indigestion that begun last night. The shortness of breath is relapsing and remitting, worse with walking and didnt improve with increased use of her nebs. She denies feeling like she is choking when she lies down flat on her back. The chest pain / indigestion was not present at the time of my assessment but was 8/10 in severity at its worst and similar to the squeezing chest pain that she had when she was diagnosed with a heart attack. She has been dizzy and has almost fallen but denies losing consciousness and denies having n/v/d. She added that has been under a lot of stress and finds it difficult to organize her medications in her pill boxes. REVIEW OF SYSTEMS: 10-point review of systems negative except as listed in HPI PAST MEDICAL/ SURGICAL HISTORY: Chronic CAD (stent x 1 in 2019, triple vessel CABG in 2019 & placement of 2 ALEX in 2020),IDDM w retinopathy and neuropathy & hx of DM foot ulcer, Paroxysmal A. Fib, JEFFERY (doesnt use PAP uses 2L nocturnal O2 ), Chronic HFpEF (grade 2), essential HTN, DLP, COPD / Asthma, CKD 4 (s/p L brachiocephalic AV fistula), RLS, GERD, Anxiety / Depression, Debility / uses walker, Hearing loss, Vision impairment, Iron Deficiency Anemia, Diverticular disease, Resection of colonic polyps, Hysterectomy, Appendectomy, Hernia repair, Lumbar laminectomy, Right lower extremity vascular procedure PVD ?, Porcine aortic valve, Bilateral Carpal tunnel surgery, Right hallux amputation (osteomyelitis), Right second toe amputation (osteomyelitis) FAMILY HISTORY: Mother- DM/ Sister CAD & COPD SOCIAL HISTORY: She doesnt smoke, drink or use recreational drugs ALLERGIES: Please see below. HOME MEDICATIONS: Please see below. PHYSICAL EXAMINATION: Vital Signs Date Time Temp Pulse Resp B/P (MAP) Pulse Ox O2 Delivery O2 Flow Rate FiO2 06/29/21 16:36 149/101 (117) 06/29/21 16:45 121 99 Nasal Cannula 2.0 06/29/21 17:13 98.1 18 GENERAL APPEARANCE: well-nourished and developed/ NAD HEENT: EOMI / MMM&P / no JVP CARDIOVASCULAR: tachycardia / HR irregularly irregular / no BLE edema LUNGS: CTAB on RA ABDOMEN: contour convex / soft & NT w palpation MUSCULOSKELETAL: NCAT / SUZY x 4 extremities INTEGUMENT: not flushed pale or diaphoretic NEUROLOGICAL: has difficulties hearing/ speech not dysarthric PSYCHIATRIC: A&O / able to understand and follow all commands LABORATORY DATA: IMAGING: Chest xray IMPRESSION: No acute pulmonary disease. Mild cardiomegaly. MICROBIOLOGY: Respiratory panel negative ASSESSMENT: is a 70 yr old w a hx of Chronic CAD,IDDM w retinopathy and neuropathy, Paroxysmal A. Fib, HFpEF, HTN, DLP, COPD w nocturnal O2 (2L) / Asthma, CKD4, RLS, GERD, Hypothyroidism, Anxiety / Depression, Debility / uses walker, Hearing loss, Vision impairment, & Iron Deficiency Anemia who is admitted for Chest pain, Rapid A Fib & HTN Crisis. PLAN: 1 Chest pain -Had resolved at the time of my assessment -May be due to NSTEMI or accelerated HTN Plan: telemetry / f/u serial EKGs & troponins/ f/u BNP & lipid panel / c/w Plavix, Coreg & Atorvastatin / nitro & Acetaminophen for CP 2 A. Fib w RVR -Trigger for RVR may be HTN crisis or high catecholamine state /stress or CT - Improved w Metoprolol, Coreg and Labetalol Plan: telemetry / f/u serial Trops to r/o CT / resume Rivaroxaban / start Cardizem 30mg Q12H 3 HTN Crisis -has not improved w BB Plan: will for BP <160/100 tonight/ bed rest to avoid excessive environmental stimuli /give 1 dose of IV hydralazine / resume home meds (Coreg ) & add Cardizem / low salt diet 4 Chronic CAD / DLP -stent x 1 in 2019, triple vessel CABG in 2019 & placement of 2 ALEX in 2020 Plan: c/w c/w Plavix, Coreg & Atorvastatin 5 IDDM w retinopathy and neuropathy Plan: consistent carbohydrate diet / f/u accuchecks / hypoglycemia protocol / sliding scale insulin / f/u A1C (target A1C is <7 to 6.5% / Reduce long acting insulin from 44 units to 30 units daily / her PCP may consider out pt Endo referral to switch the patient from basal bolus injection to continuous subcutaneous insulin infusion which has been shown to produced small improvements in A1C, improve QOL and reduce episodes of severe hypoglycemia 6 CKD 4 (s/p L brachiocephalic AV fistula) Plan: calcitriol / f/u BMP 7 Chronic HFpEF (grade 2) Plan: monitor weight & manage BP 8 COPD / Asthma Plan: Symbicort (Trilogy Ellipta is not on our formulary) 9 JEFFERY Plan: nocturnal O2 (2L) 10 Iron Deficiency Anemia Plan: ferrous gluconate 11 RLS Plan: ropinirole 12 GERD Plan: omeprazole 13 Anxiety / Depression Plan: sertraline 14 Class 2 obesity -complicates care 15 Debility / unsteady gait -she is at risk for deconditioning & may need PT eval prior to discharge DVT px n/a on DOAC Disposition: will likely need placement in a SNF after more than 2 midnights stay LATE ENTRY #Type 2 vs Type 1 Plan: we will continue to trend troponins & f/u repeat EKG / the day time team may consider consulting Cardiology Home Medications Scheduled Ammonium Lactate (Ammonium Lactate) 12% Cream..g., 1 DOSE TOP QHS APPLY TO FEET AFTER SHOWER Atorvastatin Calcium (Atorvastatin Calcium) 40 Mg Tablet, 40 MG PO QHS Calcitriol (Calcitriol) 0.25 Mcg Capsule, 0.25 MCG PO QHS EVERY OTHER NIGHT Carvedilol (Carvedilol) 12.5 Mg Tablet, 12.5 MG PO BID Cholecalciferol (Vitamin D3) (Vitamin D3) 125 Mcg Capsule, 5,000 UNITS PO QHS Clopidogrel Bisulfate (Clopidogrel) 75 Mg Tablet, 75 MG PO DAILY Ferrous Gluconate (Ferrous Gluconate) 324 Mg Tablet, 324 MG PO BID Fluticasone/Umeclidin/Vilanter (Trelegy Ellipta 100-62.5-25) 1 Each Blst.w.dev, 1 PUFF PO DAILY Insulin Glargine (Lantus) 100 Unit/1 Ml Vial, 44 UNIT INJ QHS Insulin Human Lispro (Humalog) 100 Unit/1 Ml Vial, 1 DOSE SC AC PER SLIDING SCALE Multivitamins (Thera M Plus Tablet) 1 Each Tablet, 1 TAB PO QHS Omeprazole (Omeprazole) 40 Mg Cap, 40 MG PO DAILY Potassium Chloride (Potassium Chloride) 10 Meq Tab.er.prt, 10 MEQ PO DAILY Rivaroxaban (Xarelto) 15 Mg Tablet, 15 MG PO QHS Ropinirole HCl (Ropinirole HCl) 1 Mg Tab, 2 MG PO BID Sertraline HCl (Sertraline HCl) 50 Mg Tab, 100 MG PO QHS Torsemide (Torsemide) 100 Mg Tablet, 50 MG PO DAILY Scheduled PRN Acetaminophen (Tylenol Extra Strength) 500 Mg Tablet, 1,000 MG PO Q6H PRN for PAIN Cyclobenzaprine HCl (Cyclobenzaprine HCl) 10 Mg Tablet, 10 MG PO TID PRN for MUSCLE SPASMS Hydroxyzine HCl (Hydroxyzine HCl) 10 Mg Tablet, 10 MG PO TID PRN for ANXIETY Tramadol HCl (Tramadol HCl) 50 Mg Tablet, 50 MG PO QID PRN for PAIN Allergies Coded Allergies: Penicillins (Verified Allergy, Mild, RASH/ITCHING, 06/22/20) A-FIB/CHADSVASC A-FIB History Current/History of A-Fib/PAF?: Yes Current PO Anticoag Therapy: Yes JACKLYN LYNN MD Jun 29, 2021 21:17
[2021-06-29] MEDS ORDERED: TORS100T PO (21:49)
[2021-06-29] MEDS ORDERED: HOME MED LIST COMPLETE! XX SCH (21:50)
--- OUTSIDE RECORDS SUMMARY | 2021-06-29 21:57 | CCD ---
Author Author [facility] Organization [facility] Address Unknown Phone Unavailable Care Team Providers Care Custom Studio Coordinator Name Role Phone CAYLA SCHNEIDER Unavailable Unavailable [...] MAQBOOL GEORGE MD Unavailable Unavailable CHIRAG, MAQBOOL GOERGE MD Unavailable Unavailable CHIRAG, MAQBOOL GEORGE MD Unavailable Unavailable CHIRAG, MAQBOOL GEORGE MD Unavailable Unavailable TURRIN, IRON Unavailable Unavailable TURRIN, IRON Unavailable Unavailable TURRIN, IRON Unavailable Unavailable TURRIN, IRON Unavailable Unavailable Saif, L Arlene RPA Unavailable Unavailable Asif, L [...] Unavailable Unavailable Andi You Dilip PA Unavailable [phone] Andi You Dilip PA Unavailable [phone] YouAndi Dilip PA Unavailable [phone] YouAndi Dilip PA Unavailable [phone] YouAndi Dilip PA Unavailable [phone] You J Dilip PA Unavailable [phone] You J Dilip PA Unavailable [phone] You, Andi Dilip PA Unavailable [phone] YouAndi Dilip PA Unavailable [phone] YouAndi Dilip PA Unavailable [phone] YouAndi Dilip PA Unavailable [phone] YouAndi Dilip PA Unavailable [phone] YouAndi Dilip PA Unavailable [phone] Andi LIN MD Unavailable Unavailable Andi LIN [...] Unavailable Unavailable Ting BECKWITH MD Unavailable Unavailable [place], F Louis PA Unavailable Unavailable [place], F Louis PA Unavailable Unavailable Mari, F Louis PA Unavailable Unavailable Mari, F Louis PA Unavailable Unavailable [place], F Louis PA Unavailable Unavailable [place], F Louis PA Unavailable Unavailable Mari, F Louis PA Unavailable Unavailable [place], F Louis PA Unavailable Unavailable [place], F Louis PA Unavailable Unavailable Mari, F [...] is protected by Article 27-F of the [facility] Public Health law. If you continue you may have access to information: Regarding HIV / AIDS; Provided by facilities licensed or operated by the [facility] Office of Mental Health; or Provided by the [facility] Office for People With Developmental Disabilities. If such information is present, then the following [facility] mandated warning applies: This information [...] law may result in a fine or custodial sentence or both. A general authorization for the release of medical or other information is NOT sufficient authorization for further disc losure. Allergies and Adverse Reactions Type Description Substance Reaction Status Data Source(s ) Propensity to adverse reactions PENICILLINS [facility] Propensity to adverse reactions PCN (penicillin) PCN (penicillin) [facility] Drug allergy Drug allergy birch Shortness of Breath I [facility] Drug allergy Drug allergy Penicillins Rash I [facility] Family History Family Member Name Family Member Gender Family Member Status Date o f Status Description Data Source(s) Unknown Male Problem [facility] ([facility]) Encounters Encounter Providers Location Date Indications Data Source(s ) Outpatient Attender: REAGAN Beckwith/Kendall/Redd/Umm 06/18/2021 03:00:00 PM EDT [facility] Outpatient Attender: GEORGE MINOR MD Medical [facility] 05/10 01:30:00 PM EDT [facility] ([facility]) Outpatient Attender: Dilip HAMPTON CPSCAORT-CPSCAEND 05/04/2021 09:29:00 AM EDT - 05/04/2021 09:30:00 AM EDT [facility] Patient discharged. Outpatient Attender: REAGAN Beckwith/Kendall/Redd/Umm 04/30/2021 03:00:00 PM EDT [facility] ([facility] Outpatient Attender: ANDRE STREETER DO ED-[facility] 03/21 08:38:00 AM EDT - 03/21/2021 08:39:00 AM EDT [facility]8 [facility] E118 Patient discharged. Outpatient Attender: GEORGE MINOR MD [facility] 02/26 04:00:00 PM EDT [facility] (George Minor MD) Inpatient Attender: Jo Molina MDAdmitter: Jo gaffney MD [id number] 02/07/2021 03:03:00 PM EDT - 02/11/2021 04:16:00 PM EDT [facility] Patient discharged. Outpatient Attender: GEORGE MINOR MD Medical [facility] 02/05 01:45:00 PM EDT [facility] ([facility]) Outpatient Attender: ROB Beckwith/Kendall/Redd/Kayley araujo 01/23/2021 09:30:00 AM EDT [facility] ([facility] Inpatient Attender: LIDA Mitchell nder: AMARA BOCANEGRA MDAttender: DWAYNE MARTINEZ MDAttender: LUCIE MOREIRA MDAdmitter: DWAYNE MARTINEZ MDReferrer: SHARA FORD . [id number] 01/14/2021 12:00:00 AM EDT - 01/19/2021 04:34:00 PM EDT Chest pain, unspecified [facility] Chest pain, unspecified Patient discharged. Office Visit Attender: Cydney Beckwith/Kendall/Redd/ Reindl 01/11/2021 09:15:00 AM EDT [facility] ([facility] Outpatient Attender: ANDRE REASON DO ED-[facility] 01/10 01:07:00 PM EDT - 01/10/2021 01:08:00 PM EDT [facility] HYPOTHYROIDISM Patient discharged. Outpatient Attender: Dilip HAMPTON CPSCAORT-CPSCAEND 01/03/2021 11:13:00 AM EDT - 01/03/2021 11:14:00 AM EDT [facility] Patient discharged. Outpatient Attender: Dilip CALVERTCAORT-CPSCAEND 01/01/2021 03:37:00 PM EDT - 01/01/2021 03:38:00 PM EDT [facility] Patient discharged. Office Visit Attender: Arlene Beckwith/Kendall/Redd/R eindl 12/25/2020 09:15:00 AM EDT [facility] ([facility] Outpatient Attender: GEORGE MINOR MD [facility] 12/04 01:15:00 PM EDT [facility] ([facility]) Outpatient Attender: Cydney Beckwith/Kendall/Redd/ Reindl 11/09/2020 10:30:00 AM EST [facility] ([facility] Outpatient Attender: Diilp CALVERTCAHUGH-CPSCAEND 11/06/2020 02:38:00 PM EST - 11/06/2020 02:39:00 PM EST [facility] Patient discharged. Outpatient Attender: ELISABETH DE LOS SANTOS DPM PCConsultant: CASSY D REASON DO 10/31/2020 10:56:00 AM EST - 10/31/2020 10:56:00 AM [facility] Outpatient Attender: GEORGE MINOR MD Medical [facility] 10/05 01:15:00 PM EST [facility] ([facility]) Office Visit Attender: PARMINDER WILL DPM [place] [facility] 09/02 12:45:00 PM EST [facility] ([facility] Outpatient Attender: Dilip FLETCHERttender: Elisha HAMPTON CPSCAORT-CPSCAEND 09/20/2020 09:34:00 AM EST - 09/20/2020 09:35:00 AM ES T E11.65 [facility] E11.65 Patient discharged. Outpatient Attender: Arlene Asif RPA [place]/Redd/R eindl 09/05/2020 09:15:00 AM EST [facility] ([facility] Outpatient Attender: ELISABETH DE LOS SANTOS DPM PCConsultant: CASSY Maldonado REASON DO 08/22/2020 09:36:00 AM EST - 08/22/2020 09:36:00 AM [facility] Outpatient Attender: GEORGE MINOR MD [facility] 08/03 01:30:00 PM EST [facility] ([facility]) Office Visit Attender: PARMINDER WILL [facility] Office 10/2019 09:00:00 AM EST [facility] ([facility] Outpatient Attender: Arlene Asif RPA Tang/[place]/Redd/R eindl 08/02/2020 09:15:00 AM EST [facility] ([facility] Outpatient Attender: ELISABETH DE LOS SANTOS DPM PCConsultant: CASSY Maldonado REASON DO 07/13/2020 02:34:00 PM EST - 07/13/2020 02:34:00 PM [facility] Outpatient 07/05/2020 06:10:00 PM [facility] Emergency Attender: IRON Randsultant: ANDRE GALVEZ DO 07/05/2020 03:34:00 PM EST - 07/05/2020 07:52:00 PM EST [facility] Patient discharged. Outpatient Attender: Cydney Beckwith/Kendall/Redd/ Umm 07/03/2020 01:15:00 PM EST [facility] ([facility] Outpatient Attender: ELISABETH DE LOS SANTOS DPM PCConsultant: CASSY D REASON DO 06/13/2020 02:03:00 PM EDT - 06/13/2020 02:03:00 PM EDT [facility] Outpatient Attender: GEORGE MINOR MD [facility] 06/02 11:15:00 AM EDT [facility] ([facility]) Emergency Attender: IRON RANDALLConsultant: ANDRE SUAREZ ON DO 05/31/2020 04:25:00 PM EDT - 05/31/2020 06:56:00 PM EDT [facility] Patient discharged. Outpatient Attender: ELISABETH DE LOS SANTOS DPM PCConsultant: CASSY D REASON DO 05/31/2020 03:06:00 PM EDT - 05/31/2020 03:06:00 PM EDT [facility] Emergency Attender: Louis HAMPTON ED-ED 11:46:00 AM EDT - 05/30/2020 12:51:00 PM EDT CUT LEFT FINGER [facility] CUT LEFT FINGER Patient discharged. Outpatient Attender: Dilip HAMPTON CPSCAORT-CPSCAEND 05/29/2020 10:08:00 AM EDT - 05/29/2020 10:09:00 AM EDT [facility] Patient discharged. Outpatient Attender: ELISABETH DE LOS SANTOS DPM PCConsultant: CASSY D REASON DO 05/22/2020 04:02:00 PM EDT - 05/22/2020 04:02:00 PM EDT [facility] Emergency Attender: MARIELLA QUEZADA MDConsultant: ANDRE ENNIS DO 05/19/2020 07:31:00 PM EDT - 05/19/2020 08:46:00 PM EDT [facility] Patient discharged. Outpatient Attender: ANDRE STREETER DO ED-[facility] 05/02 07:48:00 AM EDT - 05/02/2020 07:49:00 AM EDT E118 [facility] E118 Patient discharged. Inpatient Attender: Tyrese Oconnor MDAtt rosalind: CAYLA Andrewender: CAYLA Perez: JIMENEZ DUNHAM MDAdmitter: JIMENEZ DUNHAM MD [id number] 03/23/2020 01:22:32 AM EDT - 03/29/2020 01:47:00 PM EDT [facility] Patient discharged. Emergency Attender: TREVOR HAMPTON ED-ED 11/23 05:01:00 PM EDT - 11/24/2019 08:48:00 PM EDT LEG CRAMPS [facility] LEG CRAMPS Patient discharged. Immunizations Vaccine Date Status Description Data Source(s) COVID-19 VACCINE Moderna 01/01/2021 12:00:00 AM EDT completed [facility] Vaccine Series Complete: YESThis Data wa s Submitted to [facility] Via [facility]. COVID-19 VACC,MRNA(MODERNA)/PF 01/01/2021 12:00:00 AM EDT completed [facility] COVID-19 VACCINE Moderna 12/02/2020 12:00:00 AM EDT completed [facility] Vaccine Series Complete: NOThis Data was Submitted to [facility] Via [facility]. COVID-19 VACCINE, MRNA-1273, LNP-S (MODERNA)/PF 12/02/2020 1 [...] tablet (5 mg total) by mouth daily [facility] Furosemide 40 MG Oral Tablet furosemide (LASIX) tablet 40 mg furosemide (LASIX) tablet 40 mg 02/11/2021 09:00:00 AM EDT 40 mg Oral activ e 40 mg, Oral, Every morning, First dose on 02/11/21 at 0900 [facility] Medication administered onsite furosemide (LASIX) injection 20 mg [id number] 02/11/2021 01:00:00 AM EDT 20 mg Intravenous completed 20 mg, I ntravenous, Once, On 02/11/21 at 0100, For 1 dose [facility] Medication administered onsite Nitroglycerin 0.4 MG Sublingual Tablet n itroglycerin (NITROSTAT) 0.4 MG SL tablet nitroglycerin (NITROSTAT) 0.4 MG SL tablet 02/11/2021 12:00:00 A M EDT 0.[address] 1 t ablet (0.4 mg total) under the tongue every 5 (five) minutes as needed for chest pain [facility] carvedilol 12.5 MG Oral Tablet carvedilol (COREG) 12.5 MG tablet carvedilol (COREG) 12.5 MG tablet 02/11/2021 12:00:00 AM EDT 12.5 mg Oral active Take 1 tablet (12.5 mg total) by mouth 2 (two) times a day [facility] Aspirin 81 MG Delayed Release Oral Tablet aspirin 81 M G EC tablet aspirin 81 MG EC tablet 02/11/2021 12:00:00 AM EDT 81 mg Oral active Take 1 tablet (81 mg total) by mouth daily [facility] clopidogrel 75 MG Oral Tablet clopidogrel (PLAVIX) 75 MG tablet clopidogrel (PLAVIX) 75 MG tablet 02/11/2021 12:00:00 AM EDT 75 mg Oral active Take 1 tablet (75 mg total) by mouth nightly [facility] Hydralazine Hydrochloride 10 MG Oral Tab let hydrALAZINE (APRESOLINE) tablet 10 mg hydrALAZINE (APRESOLINE) tablet 10 mg 02/11/2021 12:00:00 AM EDT 10 mg Oral completed 10 mg, Oral, Once, O n 02/11/21 at 0000, For 1 dose [facility] Medication administered onsite Hydralazine Hydrochloride 10 MG Oral Tab let hydrALAZINE (APRESOLINE) tablet 10 mg hydrALAZINE (APRESOLINE) tablet 10 mg 02/10/2021 06:00:00 PM EDT 10 mg Oral completed 10 mg, Oral, Once, O n 02/10/21 at 1800, For 1 dose [facility] Medication administered onsite Amlodipine 5 MG Oral Tablet amLODIPine (NORVASC) table t 5 mg amLODIPine (NORVASC) tablet 5 mg 02/10/2021 02:00:00 PM EDT 5 mg Oral active 5 mg, Oral, Daily, First dose on 02/10/21 at 1400 [facility] Medication administered onsite furosemide (LASIX) injection 40 mg [id number] 02/10/2021 01:00:00 PM EDT 40 mg Intravenous completed 40 mg, I ntravenous, Once, On 02/10/21 at 1300, For 1 dose
Between blood transfusion units
[facility] Medication administered onsite potassium chloride SA (K-DUR,KLOR-CON) CR tablet 40 mEq [id number] 02/09/2021 04:00:00 PM EDT 40 meq Oral completed 40 mEq, Oral, Once, On 02/09/21 at 1600, For 1 dose [facility] Medication administered onsite Insulin Glargine [...] to 200 mg/dl &nb sp; No Change
[facility] Medication administered onsite sodium chloride 0.9% (NS) infusion 2712-4368-02 02/08/2021 04:00:00 P M EDT Intravenous completed at 100 mL/hr, Intravenous, Continuous, Starting on Libra 02/08/21 at 1600, For 6 hours, Post-op [facility] Medication administered onsite clopidogrel 75 MG Oral Tablet clopidogrel (PLAVIX) tab let 75 mg clopidogrel (PLAVIX) tablet 75 mg 02/08/2021 04:00:00 PM EDT 75 mg Oral active 75 mg, Oral, Daily, First dose on Fri02/08/21 at 1600, Post-op
May begin the same day
[facility] Medication administered onsite clopidogrel 75 MG Oral Tablet clopidogrel (PLAVIX) tab let clopidogrel (PLAVIX) tablet 02/08/2021 02:30:24 PM EDT active As needed, Starting on Libra 02/08/21 at 1430, Intra-Procedure [facility] Medication administered onsite 1 ML heparin sodium, porcine 1000 UNT/ML Injection hep fabian (porcine) injection heparin (porcine) injection 02/08/2021 02:02:58 PM EDT active As needed, Starting on Libra 02/08/21 at 1402, Intra-Procedure [facility] Medication administered onsite lidocaine 1 % injection [id number] 02/08/2021 01:53:49 PM EDT active As needed, Starting on Libra at 1353, Intra-Procedure [facility] Medication administered onsite fentaNYL Citrate (PF) (SUBLIMAZE) injection [id number] 02/08/2021 01:50:42 PM EDT active As neede d, Starting on Libra 02/08/21 at 1350, Intra-Procedure [facility] Medication administered onsite 2 ML Midazolam 1 MG/ML Injection midazolam (VERSED) in jection midazolam (VERSED) injection 02/08/2021 01:50:35 PM EDT active As needed, Starting on Libra 02/08/21 at 1350, Intra-Procedure [facility] Medication administered onsite potassium chloride SA (K-DUR,KLOR-CON) CR tablet 20 mEq [id number] 02/08/2021 08:00:00 AM EDT 20 meq Oral completed 20 mEq, Oral, Once, On Libra 02/08/21 at 0800, For 1 dose [facility] Medication administered onsite Hydralazine Hydrochloride 10 MG Oral Tab let hydrALAZINE (APRESOLINE) tablet 10 mg hydrALAZINE (APRESOLINE) tablet 10 mg 02/08/2021 12:00:00 AM EDT 10 mg Oral aborted 10 mg, Oral, E very 8 hours (scheduled), First dose on Libra 02/08/21 at 0000
Hold for SBP<140
[facility] Medication administered onsite atorvastatin 80 MG Oral Tablet atorvastatin (LIPITOR) tablet 80 mg atorvastatin (LIPITOR) tablet 80 mg 02/07/2021 09:00:00 PM EDT 80 mg Oral active 80 mg, Oral, Nightly, First dose on Fri02/07/21 at 2099 [facility] Medication administered onsite carvedilol 12.5 MG Oral Tablet carvedilol (COREG) tabl et 12.5 mg carvedilol (COREG) tablet 12.5 mg 02/07/2021 09:00:00 PM EDT 12.5 mg Oral active 12.5 mg, Oral, 2 times daily, First dose on Fri02/07/21 at 2099 [facility] Medication administered onsite Sertraline 100 MG Oral Tablet sertraline (ZOLOFT) tabl et 100 mg sertraline (ZOLOFT) tablet 100 mg 02/07/2021 09:00:00 PM EDT 100 mg Oral active 100 mg, Oral, Nightly, First dose on Fri02/07/21 at 2099 [facility] Medication administered onsite ropinirole 1 MG Oral Tablet rOPINIRole (REQUIP) tablet 1 mg rOPINIRole (REQUIP) tablet 1 mg 02/07/2021 09:00:00 PM EDT 1 mg Oral active 1 mg, Oral, 2 times daily, First dose on Fri02/07/21 at 2099 [facility] Medication administered onsite clopidogrel 75 MG Oral Tablet clopidogrel (PLAVIX) tab let 75 mg clopidogrel (PLAVIX) tablet 75 mg 02/07/2021 09:00:00 PM EDT 75 mg Oral aborted 75 mg, Oral, Nightly, First dose on Fri02/07/21 at 2099 [facility] Medication administered onsite potassium chloride SA (K-DUR,KLOR-CON) CR tablet 20 mEq [id number] 02/07/2021 08:00:00 PM EDT 20 meq Oral completed 20 mEq, Oral, Once, On Fri02/07/21 at 2000, For 1 dose [facility] Medication administered onsite 1 ML heparin sodium, porcine 1000 UNT/ML Injection heparin (porcine) injection 4,900 Units heparin (porcine) injection 4,900 Units 02/07/2021 05:00:00 PM EDT 60 U/kg Intravenous completed 4,900 Unit s (rounded from 4,872 Units = 60 Units/kg 81.2 kg), Intravenous, Once, On Fri02/07/21 at 1700, For 1 dose
Do not exceed 5,000 units or 60 units/kg (whichever is less)
[facility] Medication administered onsite sodium chloride 0.9% (NS) infusion 7376-2647-13 02/07/2021 05:00:00 P M EDT Intravenous aborted at 75 mL/hr, Intravenous, Continuous, Starting on Fri02/07/21 at 1700 [facility] Medication administered onsite Insulin Lispro 100 UNT/ML [...] cover POC glucose at 08:00, 12:00, 17:00.
[facility] Medication administered onsite Nitroglycerin 0.02 MG/MG Topical Ointmen t nitroglycerin (NITROSTAT) 2 % ointment 1 inch nitroglycerin (NITROSTAT) 2 % ointment 1 inch 02/08/20 04:00:00 PM EDT 1 g Topical aborted 1 inch ( 1 g), Topical, Every 6 hours (scheduled), First dose on Fri02/07/21 at 1600
1 inch = 1 gram
[facility] Medication administered onsite pantoprazole 40 MG Delayed Release Oral Tablet pantoprazole (PROTONIX) EC tablet 40 mg pantoprazole (PROTONIX) EC tablet 40 mg 02/07/2021 04:00:00 PM E DT 40 mg Oral active Gastroesophageal Reflux Diseas e 40 mg, Oral, Daily, Indications: Gastroesophageal Reflux Disease, First dose on Fri02/07/21 at 1600 [facility] Gastroesophageal Reflux Disease Medication administered onsite Aspirin 81 MG Delayed Release Oral Tablet aspirin EC t ablet 81 mg aspirin EC tablet 81 mg 02/07/2021 04:00:00 PM EDT 81 mg Oral activ e 81 mg, Oral, Daily, First dose on Fri02/07/21 at 1600 [facility] Medication administered onsite 500 ML heparin sodium, [...] 1 unit/kg/hr IV58.1 - 87 Therapeutic, No Hokkqw29.1 - 97 Decrease infusion 1 unit/kg/hr IV [...] single port tubing (SmartSite Infusion Set ref [id number]). Medication and tubing is to be discarded if infusion off for 4 hours.
[facility] Medication administered onsite tramadol hydrochloride 50 MG Oral Tablet traMADol (ULT NOHEMI) tablet 50 mg traMADol (ULTRAM) tablet 50 mg 02/07/2021 03:35:12 PM EDT 50 mg Oral active 50 mg, Oral, 2 times daily PRN, mild pain (1-3), Starting on Fri02/07/21 at 1535, For 7 days [facility] Medication administered onsite Nitroglycerin 0.4 MG Sublingual Tablet n itroglycerin (NITROSTAT) SL tablet 0.4 mg nitroglycerin (NITROSTAT) SL tablet 0.4 mg 02/07/2021 03:34:10 P M EDT 0.4 mg Sublingual active 0.4 mg, S ublingual, Every 5 min PRN, chest pain, Starting on Fri02/07/21 at 1534
May administer up to 3 doses per episode.
[facility] Medication administered onsite Acetaminophen 325 MG / Oxycodone Hydroch loride 5 MG Oral Tablet oxyCODONE- acetaminophen (PERCOCET) 5-325 MG 1 tablet oxyCODONE-acetaminophen (PERCOCET) 5- 325 MG 1 tablet 02/07/2021 03:33:30 PM EDT 1 {tbl} Oral a ctive 1 tablet, Oral, Every 8 hours PRN, moderate pain (4-6), Starting on Fri02/07/21 at 1533, For 7 days [facility] Medication administered onsite Acetaminophen 325 MG Oral Tablet acetaminophen (TYLENO L) 325 MG tablet 650 mg acetaminophen (TYLENOL) 325 MG tablet 650 mg 02/07/2021 03:32:06 PM EDT 650 mg Oral active 650 mg, Or al, Every 6 hours PRN, mild pain (1-3), Starting on Fri02/07/21 at 1532 [facility] Medication administered onsite potassium chloride (K-DUR) dissolvable tablet 40 mEq [id number] 01/19/2021 08:00:00 AM EDT 40 meq Oral completed 40 mEq, Oral, Once, On Fri01/19/21 at 0800, For 1 dose
May be dissolved in water for patients with a G- Tube or unable to swallow. If concern for clogging G-Tube, may contact Pharmacy to switch formulation to a powder packet.
[facility] Medication administered onsite Isopropyl Alcohol 0.7 ML/ML Medicated Pad Alcohol Swabs Pad Alcohol Swabs Pad 01/19/2021 12:00:00 AM EDT active Use as directed. use 8-10 per day, E11.65, #200, 1 refill [facility] PhylogyStyle [place] Lite w/Device Kit [id number] 01/19/2021 12:00:00 A M EDT active Use as directed. Rashawn t 4-6 times daily. Dx code 11.65. [facility] FreeStyle Lancets [id number] 01/19/2021 12:00:00 AM EDT active Use as directed. Use 4-6 times daily. Dx code 11.65. [facility] FreeStyle Lite Test In Vitro Strip (glucose blood) [id number] 01/19/2021 12:00:00 AM EDT active Test 4-6 times daily. Dx code 11.65. [facility] 3 ML Insulin Lispro 100 UNT/ML Pen Injec tor Insulin Lispro (1 Unit Dial) 100 UNIT/ML Subcutaneous Solution Pen-injector (HumaLOG KwikPen) Insulin Lispro (1 Unit Dial) 100 UNIT/ML Subcutaneous Solution Pen-injector (HumaLOG KwikPen) 01/19/2021 12:00:00 AM EDT active #25 pens, inject 3 times daily before meal per the insulin algorithm, MDD: 120units, 1 [facility] 3 ML Insulin Lispro 100 UNT/ML Pen Injec tor Insulin Lispro (1 Unit Dial) 100 UNIT/ML Subcutaneous Solution Pen-injector (HumaLOG KwikPen) Insulin Lispro (1 Unit Dial) 100 UNIT/ML Subcutaneous Solution Pen-injector (HumaLOG KwikPen) 01/19/2021 12:00:00 AM EDT aborted #25 pens, inject 3 times daily before meal per the insulin algorithm, MDD: 120units, 1 [facility] Insulin Syringe-Needle U-100 31G X 15/64" 0.5 ML [id number] 01/19/2021 12:00:00 AM EDT active #600. Use 4-6 carol ly, E11.65, 1 [facility] 3 ML Insulin Lispro 100 UNT/ML Pen Injec tor Insulin Lispro (1 Unit Dial) 100 UNIT/ML Subcutaneous Solution Pen-injector (HumaLOG KwikPen) Insulin Lispro (1 Unit Dial) 100 UNIT/ML Subcutaneous Solution Pen-injector (HumaLOG KwikPen) 01/19/2021 12:00:00 AM EDT aborted # 5 pens, inject 3 times daily before meal per the insulin algorithm, MDD: 120units, 1 [facility] Insulin Pen Needle 31G X 5 MM [id number] 01/19/2021 12:00:00 AM EDT active Use as directed. Use 4-6 needles per day . [facility] 3 ML Insulin Glargine 100 UNT/ML Pen Inj art Insulin Glargine 100 UNIT/ML Subcutaneous Solution Pen-injector (LANTUS SOLOSTAR) Insulin Glargine 100 UNIT/ML Subcutaneous Solution Pen-injector (LANTUS SOLOSTAR) 01/19/2021 12:00:00 AM EDT active Inject 4 4 Units subcutaneously every night, MDD 100 [facility] Insulin Glargine 100 UNT/ML Injectable S olution insulin glargine (LANTUS) injection 44 Units insulin glargine (LANTUS) injection 44 Units 10:00:00 PM EDT 44 U Subcutaneous active 44 Units, Subcutaneous, Nightly, First dose (after last modification) on [facility] 01/18/21 at 2200, For 26 doses
[...] glucose more than 400 mg/dL: notify provider
[facility] Medication administered onsite insulin lispro (HUMALOG) injection CUSTO MIZABLE DOSE INSULIN patients 1-25 Units [id number] 01/18/2021 06:00:00 PM EDT U Subcutaneous active 1-25 Units, Subcutaneous, Three Times Daily-With Meals, First dose (after last modification) on [facility] 01/18/21 at 1800, For 87 doses
[...] gm if only clear liquid consumed): 29 [facility] Medication administered onsite bacitracin ointment [id number] 01/18/2021 12:00:00 PM EDT Topical active Topical, 2 Times Carol ly, First dose on [facility] 01/18/21 at 1200, For 3 days
Apply to nares
[facility] Medication administered onsite Chlorothiazide 28 MG/ML Injectable Solut ion chlorothiazide (DIURIL) injection 500 mg chlorothiazide (DIURIL) injection 500 mg 01/18/2021 11:45:00 AM EDT 500 mg Intravenous active 500 mg, Intravenous, 2 Times Daily, First dose (after last modification) on [facility] 01/18/21 at 1145, For 8 doses
Add 18 ml of sterile water for inj to vial = 28mg/ml
[facility] Medication administered onsite NIFEdipine (PROCARDIA XL) 24 hr tablet 60 mg [id number] 01/18/2021 10:45:00 AM EDT 60 mg Oral active 60 mg, O ral, Daily Standard, First dose on [facility] 01/18/21 at 1045, For 30 days
Do not crush or chew
[facility] Medication administered onsite Amlodipine 5 MG Oral Tablet amlodipine (NORVASC) table t 5 mg amlodipine (NORVASC) tablet 5 mg 01/18/2021 09:15:00 AM EDT 5 mg Oral completed 5 mg, Oral, Daily Standard, First dose on [facility] 01/18/21 at 0915, For 1 day
Check vital signs before administering
[facility] Medication administered onsite Sodium Chloride 0.111 MEQ/ML Nasal Solut ion sodium chloride (OCEAN) 0.65 % nasal spray 2 spray sodium chloride (OCEAN) 0.65 % nasal spray 2 spray 09:00:00 AM EDT 2 {spray} Each Nare active 2 spray, Each Nare, Three Times Daily Standard, First dose on [facility] 01/18/21 at 0900, For 30 days [facility] Medication administered onsite Sertraline 100 MG Oral Tablet sertraline (ZOLOFT) tabl et 100 mg sertraline (ZOLOFT) tablet 100 mg 01/18/2021 09:00:00 AM EDT 100 mg Oral active 100 mg, Oral, Daily Standard, First dose (after last modification) on [facility] 01/18/21 at 0900, For 26 doses [facility] Medication administered onsite pantoprazole 40 MG Delayed Release Oral Tablet pantoprazole (PROTONIX) EC tablet 40 mg pantoprazole (PROTONIX) EC tablet 40 mg 01/18/2021 07:30:00 AM E DT 40 mg Oral active 40 mg, Ora l, Before Breakfast, First dose (after last modification) on [facility] 01/18/21 at 0730, For 26 doses
Do not crush or chew
[facility] Medication administered onsite Metolazone 2.5 MG Oral Tablet metOLazone 2.5 MG Oral T ablet (ZAROXOLYN) metOLazone 2.5 MG Oral Tablet (ZAROXOLYN) 01/18/2021 12:00:00 AM EDT 2.5 mg Oral active Take 1 tablet by mariam th daily [facility] Insulin Glargine 100 UNT/ML Injectable S olution Insulin Glargine 100 UNIT/ML Subcutaneous Solution (LANTUS) Insulin Glargine 100 UNIT/ML Subcutaneou s Solution (LANTUS) 01/18/2021 12:00:00 AM EDT 30 U Subcutaneous aborted Inject 30 Units into the skin nightly [facility] 24 HR Nifedipine 60 MG Extended Release Oral Tablet NIFEdipine ER 60 MG Oral Tablet Extended Release 24 Hour (ADALAT CC) NIFEdipine ER 60 MG Oral Tablet Extended Release 24 Hour (ADALAT CC) 01/18/2021 12:00:00 AM EDT 60 mg Oral active Take 1 tablet by mouth daily [facility] torsemide 100 MG Oral Tablet Torsemide 100 MG Oral Tab let (DEMADEX) Torsemide 100 MG Oral Tablet (DEMADEX) 01/18/2021 12:00:00 AM EDT 100 mg Oral active Take 1 tablet by mariam th Two Times Daily Take 1 tablet in the morning and 1 tablet in the evening [facility] atorvastatin 40 MG Oral Tablet Atorvastatin Calcium 40 MG Oral Tablet (LIPITOR) Atorvastatin Calcium 40 MG Oral Tablet (LIPITOR) 01/18/2021 12:00:00 AM EDT 40 mg Oral active Take 1 tablet by mouth d [facility] Oxymetazoline hydrochloride 0.5 MG/ML [place] Oxymetazoline HCl 0.05 % Nasal Solution (AFRIN) Oxymetazoline HCl 0.05 % Nasal Solution (AFRIN) 2020 12:00:00 AM EDT 2 {spray} Nasal active 2 sprays by Nasal route Two Times Daily for 3 days [facility] Sodium Chloride 0.111 MEQ/ML Nasal Solut ion Saline Nasal [place] 0.65 % Nasal Solution (OCEAN) Saline Nasal [place] 0.65 % Nasal Solution (OCEAN) 01/18 12:00:00 AM EDT 2 {spray} Nasal active 2 sprays by Nasal route Three times daily [facility] Insulin Glargine 100 UNT/ML Injectable S [...] glucose more than 400 mg/dL: notify provider
[facility] Medication administered onsite POLYETHYLENE GLYCOL 3350 [...] due to potential increased risk for aspiration.
[facility] Medication administered onsite ropinirole 1 MG Oral Tablet ropinirole (REQUIP) tablet 2 mg ropinirole (REQUIP) tablet 2 mg 01/17/2021 09:00:00 PM EDT 2 mg Oral active 2 mg, Oral, 2 Times Daily, First dose (after last modification) on Fri01/17/21 at 2100, For 54 doses [facility] Medication administered onsite 60 ACTUAT Budesonide 0.08 MG/ACTUAT / fo rmoterol fumarate 0.0045 MG/ACTUAT Metered Dose Inhaler budesonide-formoterol (SYMBICORT) 80-4.5 MCG/ACT inhaler 2 puff budesonide-formoterol (SYMBICORT) 80-4.5 MCG/ACT inhal er 2 puff 01/17/2021 08:00:00 PM EDT 2 {puff} Inhalation active 2 puff, Inhalation, 2 Times Daily, First dose on Fri01/17/21 at 2000, For 11 days
Shake well before using
[facility] Medication administered onsite insulin lispro (HUMALOG) injection CUSTO MIZABLE DOSE INSULIN patients 1-25 Units [id number] 01/17/2021 06:00:00 PM EDT U Subcutaneous aborted [...] gm if only clear liquid consumed): 25 [facility] Medication administered onsite Sodium Bicarbonate 650 MG Oral Tablet sodium bicarbona te tablet 650 mg sodium bicarbonate tablet 650 mg 01/17/2021 02:45:00 PM EDT 650 mg Oral active 650 mg, Oral, 2 Times Daily, First dose on Fri01/17/21 at 1445, For 30 days [facility] Medication administered onsite bumetanide (BUMEX) injection 4 mg [id number] 01/16/2021 05:15:00 PM EDT 4 mg Intravenous active 4 mg, In travenous, Every 12 hours, First dose on Fri01/16/21 at 1730, For 10 doses [facility] Medication administered onsite Calcitriol 0.10072 MG Oral Capsule calcitRIOL (ROCALTR OL) capsule 0.25 mcg calcitRIOL (ROCALTROL) capsule 0.25 mcg 01/16/2021 09:00:00 AM EDT 0.25 ug Oral active 0.25 mcg, Oral , Daily Standard, First dose on Fri01/16/21 at 0900, For 30 days [facility] Medication administered onsite Amlodipine 5 MG Oral Tablet amlodipine (NORVASC) table t 5 mg amlodipine (NORVASC) tablet 5 mg 01/16/2021 09:00:00 AM EDT 5 mg Oral aborted 5 mg, Oral, Daily Standard, First dose (after last modification) on Fri01/16/21 at 0900, For 7 doses [facility] Medication administered onsite Aspirin 81 MG Chewable Tablet aspirin chewable tablet 324 mg aspirin chewable tablet 324 mg 01/16/2021 07:00:00 AM EDT 324 mg Oral comp leted 324 mg, Oral, Once, On Fri01/16/21 at 0700, For 1 dose
Chew tablet before swallowing.
[facility] Medication administered onsite Oxymetazoline hydrochloride 0.5 MG/ML [place] oxymetazoline (AFRIN) 0.05 % nasal spray 2 spray oxymetazoline (AFRIN) 0.05 % nasal spray 2 spray 01/15 09:00:00 PM EDT 2 {spray} Each Nare active 2 spray, Each Nare, 2 Times Daily, First dose on Fri01/15/21 at 2100, For 14 doses [facility] Medication administered onsite ferrous gluconate 324 MG Oral Tablet Ferrous Gluconate (FERGON) tablet 324 mg Ferrous Gluconate (FERGON) tablet 324 mg 01/15/2021 09:00:00 PM EDT 324 mg Oral active 324 mg, Oral, 2 Times Daily, First dose on Fri01/15/21 at 2100, For 30 days [facility] Medication administered onsite tramadol hydrochloride 50 MG Oral Tablet tramadol (ULT NOHEMI) tablet 50 mg tramadol (ULTRAM) tablet 50 mg 01/15/2021 07:08:36 PM EDT 50 mg Oral active 50 mg, Oral, Every 12 hours PRN, Moderate Pain (Pain Scale Score 4-6), Starting on Fri01/15/21 at 1908, For 4 days 22 hours [facility] Medication administered onsite Cyclobenzaprine hydrochloride 10 MG Oral Tablet cyclobenzaprine (FLEXERIL) tablet 10 mg cyclobenzaprine (FLEXERIL) tablet 10 mg 01/15/2021 06:57:42 PM EDT 10 mg Oral active 10 mg, Oral, Thr ee Times Daily-PRN, Muscle spasms, Starting on Fri01/15/21 at 1857, For 30 days [facility] Medication administered onsite Hydroxyzine Hydrochloride 10 MG Oral Tablet hydrOXYzin e (ATARAX) tablet 10 mg hydrOXYzine (ATARAX) tablet 10 mg 01/15/2021 06:57:18 PM EDT 10 mg Oral active 10 mg, Oral, Three Times Daily-PRN, Anxiety, Starting on Fri01/15/21 at 1857, For 30 days [facility] Medication administered onsite furosemide (LASIX) injection 80 mg [id number] 01/15/2021 03:15:00 PM EDT 80 mg Intravenous completed 80 mg, I ntravenous, Once, On Fri01/15/21 at 1515, For 1 dose
Notify provider if systolic blood pressure less than: 90 [facility] Medication administered onsite Amlodipine 5 MG Oral Tablet amlodipine (NORVASC) table t 10 mg amlodipine (NORVASC) tablet 10 mg 01/15/2021 09:00:00 AM EDT 10 mg Oral aborted 10 mg, Oral, Daily Standard, First dose on Fri01/15/21 at 0900, For 5 doses [facility] Medication administered onsite clopidogrel 75 MG Oral Tablet clopidogrel (PLAVIX) tab let 75 mg clopidogrel (PLAVIX) tablet 75 mg 01/15/2021 09:00:00 AM EDT 75 mg Oral active 75 mg, Oral, Daily Standard, First dose on Fri01/15/21 at 0900, For 30 days [facility] Medication administered onsite torsemide 20 MG Oral Tablet torsemide (DEMADEX) tablet 100 mg torsemide (DEMADEX) tablet 100 mg 01/15/2021 09:00:00 AM EDT 100 mg Oral aborted 100 mg, Oral, Daily Standard, First dose on Fri at 0900, For 30 days [facility] Medication administered onsite tiotropium (SPIRIVA RESPIMAT) inhalation spray 2 puff [id number] 01/15/2021 08:00:00 AM EDT 2 {puff} Inhalation active 2 pu ff, Inhalation, Daily RT, First dose on Fri01/15/21 at 0800, For 30 days [facility] Medication administered onsite Oxycodone Hydrochloride 5 [...] only) require Pain Service consultation and approval.
[facility] Medication administered onsite Insulin Glargine 100 [...] glucose more than 400 mg/dL: notify provider
[facility] Medication administered onsite ropinirole 1 MG Oral Tablet ropinirole (REQUIP) tablet 1 mg ropinirole (REQUIP) tablet 1 mg 01/14/2021 09:00:00 PM EDT 1 mg Oral aborte d 1 mg, Oral, 2 Times Daily, First dose on 01/14/21 at 2100, For 30 days [facility] Medication administered onsite Isosorbide Dinitrate 20 MG Oral Tablet i sosorbide dinitrate (ISORDIL) tablet 20 mg isosorbide dinitrate (ISORDIL) tablet 20 mg 01/14/2021 09:00:00 PM EDT 20 mg Oral active 20 mg, Ora l, Three Times Daily Standard, First dose on 01/14/21 at 2100, For 30 days
Hazardous pharmaceutical waste - Black bin disposal.
[facility] Medication administered onsite atorvastatin 40 MG Oral Tablet atorvastatin (LIPITOR) tablet 40 mg atorvastatin (LIPITOR) tablet 40 mg 01/14/2021 09:00:00 PM EDT 40 mg Oral active 40 mg, Oral, Every evening, First dose on 01/14/21 at 2100, For 30 days [facility] Medication administered onsite Sertraline 100 MG Oral Tablet sertraline (ZOLOFT) tabl et 50 mg sertraline (ZOLOFT) tablet 50 mg 01/14/2021 09:00:00 PM EDT 50 mg Oral aborted 50 mg, Oral, 2 Times Daily, First dose on 01/14/21 at 2100, For 30 days [facility] Medication administered onsite 60 ACTUAT Budesonide 0.16 MG/ACTUAT / fo rmoterol fumarate 0.0045 MG/ACTUAT Metered Dose Inhaler budesonide-formoterol (SYMBICORT) 160-4.5 MCG/ACT inhaler 2 puff budesonide-formoterol (SYMBICORT) 160-4.5 MCG/ACT inha ler 2 puff 01/14/2021 08:00:00 PM EDT 2 {puff} Inhalation aborted 2 puff, Inhalation, 2 Times Daily, First dose on 01/14/21 at 2000, For 14 days
Shake well before using
[facility] Medication administered onsite Hydralazine Hydrochloride 20 MG/ML Injec table Solution hydrALAZINE (APRESOLINE) injection 20 mg hydrALAZINE (APRESOLINE) injection 20 mg 01/14/2021 06 :45:00 PM EDT 20 mg Intravenous completed 20 mg, Intravenous, Once, On 01/14/21 at 1845, For 1 dose
Dilute in 25-50 mL normal saline. Administer over 30 minutes.
[facility] Medication administered onsite Hydralazine Hydrochloride 20 [...] mL normal saline. Administer over 30 minutes.
[facility] Medication administered onsite Acetaminophen 325 MG [...] mg from all sources in 24 hours.
[facility] Medication administered onsite carvedilol 6.25 MG Oral Tablet carvedilol (COREG) tabl et 25 mg carvedilol (COREG) tablet 25 mg 01/14/2021 06:00:00 PM EDT 25 mg Oral active 25 mg, Oral, 2 Times Daily With Meals, First dose on 01/14/21 at 1800, For 30 days
Check vital signs before administering
[facility] Medication administered onsite rivaroxaban 15 MG Oral Tablet rivaroxaban (XARELTO) ta blet 15 mg rivaroxaban (XARELTO) tablet 15 mg 01/14/2021 06:00:00 PM EDT 15 mg Oral active Atrial Fibrillation 15 mg, Oral, Daily with Dinn er, Indications: Atrial Fibrillation, First dose on Fri01/14/21 at 1800, For 30 days [facility] Atrial Fibrillation Medication administered onsite insulin lispro (HumaLOG) injection HIGH DOSE EATING IN SULIN patients 1-22 Units [id number] 01/14/2021 06:00:00 PM EDT U Subcutaneous aborted 1-22 Units, Subcutaneous, Three Times Daily-With Meals, First dose on 01/14/21 at 1800, For 30 days
Nursing MUST open the 'SQ Insulin Dosing Charts' Sidebar Report, or, the Patient Summary or Summary Report within the ED.
[facility] Medication administered onsite perflutren lipid microspheres (DEFINITY) injectable suspensi on 9.78 mg [id number] 01/14/2021 05:50:15 PM EDT 1.5 mL Intravenous active 9.78 mg (1.5 mL), Intravenous, Once PRN, Other, Echo imaging enhancement, Starting on 01/14/21 at 1750, For 5 days 23 hours [facility] Medication administered onsite Ceftriaxone 1000 MG Injection cefTRIAXone (ROCEPHIN) i nfusion 1 g (premix) cefTRIAXone (ROCEPHIN) infusion 1 g (premix) 01/14/2021 05:45:00 PM EDT 1 g Intravenous aborted 1 g, Intraven ous, at 100 mL/hr, Every 24 hours, First dose on [place] 01/14/21 at 1745, For 7 days
Discouraged Uses: Empiric treatment of post-surgical meningitis (ceftazidime preferred)
[facility] Medication administered onsite furosemide (LASIX) injection 80 mg [id number] 01/14/2021 05:45:00 PM EDT 80 mg Intravenous completed 80 mg, I ntravenous, Once, On 01/14/21 at 1745, For 1 dose
Notify provider if systolic blood pressure less than: 90 [facility] Medication administered onsite azithromycin in NaCl 0.9 % 250 mL infusion 500 mg 01/14/2021 05:45:00 PM EDT 500 mg Intravenous aborted 500 mg, Intr avenous, at 250 mL/hr, Every 24 hours, First dose on 01/14/21 at 1745, For 5 days [facility] Medication administered onsite pantoprazole 40 MG Delayed Release Oral Tablet pantoprazole (PROTONIX) EC tablet 40 mg pantoprazole (PROTONIX) EC tablet 40 mg 01/14/2021 05:30:00 PM E DT 40 mg Oral aborted 40 mg, Ora l, Two times daily before breakfast and dinner, First dose on 01/14/21 at 1730, For 30 days
Do not crush or chew
[facility] Medication administered onsite albuterol (PROVENTIL HFA) inhaler 2 puff [id number] 01/14/2021 05:14:29 PM EDT 2 {puff} Inhalation active 2 pu ff, Inhalation, Every 6 hours PRN, Wheezing, Starting on 01/14/21 at 1714, For 6 days 23 hours
Shake the inhaler well before each spray.
[facility] Medication administered onsite Glucagon 1 MG Injection glucagon (human recombinant) ( GLUCAGEN) injection 1 mg glucagon (human recombinant) (GLUCAGEN) injection 1 mg 01/14/2021 05:09:51 PM EDT 1 mg Intramuscular active 1 mg, Intramuscular, PRN, for glucose <55 without IV access, Starting on 01/14/21 at 1709, For 30 days [facility] Medication administered onsite dextrose 50 % IV solution 25 mL [id number] 01/14/2021 05:09:51 PM E DT 25 mL Intravenous active 25 mL, Intrav enous, PRN, Other, blood glucose <55, Starting on 01/14/21 at 1709, For 30 days
Not for midline administration.
[facility] Medication administered onsite Glucose 0.417 MG/MG Oral Gel glucose (GLUTOSE) 40 % or al gel 15 g glucose (GLUTOSE) 40 % oral gel 15 g 01/14/2021 05:09:51 PM EDT 15 g Oral active 15 g, Oral, PRN, Low blood s ugar, for gluose 55-69 mg/dl and able to take PO, Starting on 01/14/21 at 1709, For 30 days [facility] Medication administered onsite carvedilol 25 MG Oral Tablet Carvedilol 25 MG Oral Tab let (COREG) Carvedilol 25 MG Oral Tablet (COREG) 2020 12:00:00 AM EDT 25 mg Oral active Take 25 mg by mouth Two times daily with meals [facility] ropinirole 1 MG Oral Tablet rOPINIRole HCl 1 MG Oral T ablet (REQUIP) rOPINIRole HCl 1 MG Oral Tablet (REQUIP) 12/10/2020 12:00:00 AM EDT 2 mg Oral active Take 2 mg by mouth Two Times Daily [facility] Calcitriol 0.95092 MG Oral Capsule Calcitriol 12/04/2020 12:00:00 AM [...] Oral aborted Take 10 mg by mouth [facility] ammonium lactate 120 MG/ML Topical Cream Ammonium Lactate 12 % External Cream (AMLACTIN) Ammonium Lactate 12 % External Cream (AMLACTIN) 2020 12:00:00 AM EST aborted APPLY TO FEET DA [facility] ammonium lactate 120 MG/ML Topical Cream Ammonium Lactate 10/27/2020 12:00:00 AM EST active [facility] ([facility] Trelegy Ellipta 100-62.5-25 MCG/INH Aerosol Powder [place] Activated [id number] 10/15/2020 12:00:00 AM EST 1 {puff} Inhalation activ e Inhale 1 puff into the lungs daily [facility] torsemide 100 MG Oral Tablet Torsemide 100 MG Oral Tab let (DEMADEX) Torsemide 100 MG Oral Tablet (DEMADEX) 10/10/2020 12:00:00 AM EST 100 mg Oral aborted Take 100 mg by mouth every morni ng And 50 mg nightly. [facility] rivaroxaban 15 MG Oral Tablet [Xarelto] Xarelto 10/09/2020 12:00:0 0 AM EST active [facility] (Mariama Minor MD) Trelegy Ellipta Trelegy Ellipta 10/05/2020 12:00:00 AM EST ORAL active [facility] (George ramirez MD) cefdinir 300 MG Oral Capsule Cefdinir 300 MG Oral Caps ule (CEFDINYL) Cefdinir 300 MG Oral Capsule (CEFDINYL) 09/13/2020 12:00:00 AM EST aborted [facility] Levofloxacin 500 MG Oral Tablet Levofloxacin 07/19/2020 12:00:[address] ORAL completed [facility] ([facility]) Allevyn 2X2 07/17/2020 12:00:00 AM EST active [facility] ([facility]) Apply To Right Hallux Everyn 3 Days 07/17/2020 12:00:00 AM EST active [facility] ([facility]) atorvastatin 40 MG Oral Tablet Atorvastatin Calcium 40 MG Oral Tablet (LIPITOR) Atorvastatin Calcium 40 MG Oral Tablet (LIPITOR) 04/13/2020 12:00:00 AM EDT 40 mg Oral aborted Take 40 mg by mouth [facility] clopidogrel 75 MG Oral Tablet clopidogrel (PLAVIX) 75 MG tablet clopidogrel (PLAVIX) 75 MG tablet 03/29/2020 12:00:00 AM EDT 75 mg Oral aborted Take 1 tablet (75 mg total) by mouth nightly [facility] Aspirin 81 MG Delayed Release Oral Tablet aspirin 81 M G EC tablet aspirin 81 MG EC tablet 05/21/2019 12:00:00 AM EDT 81 mg Oral aborted Take 81 mg by mouth daily [facility] HUMULIN R U-500 KWIKPEN 500 UNIT/ML SOPN [id number] 05/07/2019 12:00:00 AM EDT 70 U Subcutaneous aborted Inj ect 70 Units under the skin 3 (three) times a day with meals [facility] Acetaminophen 325 MG / Oxycodone Hydroch loride 5 MG Oral Tablet oxyCODONE- acetaminophen (PERCOCET) 5-325 MG per tablet oxyCODONE-acetaminophen (PERCOCET) 5-325 MG per tablet 1 {tbl} Oral aborted Take 1 tablet by mouth every 8 (eight) hours as needed for pain [facility] Hydralazine Hydrochloride 25 MG Oral Tab let hydrALAZINE (APRESOLINE) 25 MG tablet hydrALAZINE (APRESOLINE) 25 MG tablet 25 mg Oral aborted Take 25 mg by mouth 2 (two) times a day [facility] Metolazone 2.5 MG Oral Tablet metolazone (ZAROXOLYN) 2 .5 MG tablet metolazone (ZAROXOLYN) 2.5 MG tablet 2.5 mg Oral aborted Take 2.5 mg by mouth daily [facility] carvedilol 25 MG Oral Tablet carvedilol (COREG) 25 MG tablet carvedilol (COREG) 25 MG tablet 25 mg Oral aborted [place] e 25 mg by mouth 2 (two) times a day [facility] Amlodipine 10 MG Oral Tablet amLODIPine (NORVASC) 10 M G tablet amLODIPine (NORVASC) 10 MG tablet 10 mg Oral aborted Take 10 mg by mouth nightly [facility] Regular Insulin, Human 500 UNT/ML Inject able Solution insulin U-500 (HUMULIN R) 500 UNIT/ML concentrated injection insulin U-500 (HUMULIN R) 500 UNIT/ML concentrated injection Subcutaneous abort ed Inject into the skin Three times daily with meals 50 units with breakfast and lunch and 45 units with dinner. [facility] Insurance Providers Payer name Policy type / Coverage type Policy ID Covered republican ID Covered republican's relationship to nassar Policy [place] Plan Information BS [place] [facility] Part [facility] [id number] Self Y [id number] BS [place] [facility] Part B [id number] Self Y [id number] BS [place] [facility] Part [facility] [id number] Self Y [id number] [facility] [facility] Part [facility] [id number] Self Y [id number] [place] [facility] [id number] Self Y [id number] [facility] [place] [facility] [id number] Self Y [id number] [facility] Part B [id number] Self [id number] [facility] Part B [id number] Self [id number] [facility] Part [facility] [id number] Self [id number] [facility] Part B [id number] Self [id number] [facility] Part B [id number] Self [id number] [facility] Part B [id number] Self [id number] [facility] [place] [facility] [id number] Self Y [id number] [facility] [place] [facility] [employer] [facility] [id number] Self Y [id number] [facility] [place] [facility] [facility] [id number] Self Y [id number] [facility] [place] [employer] [facility] [id number] Self Y [id number] [facility] [place] [facility] [facility] [id number] Self Y [id number] BS [place] [employer] [facility] [id number] Self Y [id number] MEDICARE [id number] SP [id number] A BLUE CROSS MEDICARE ADVANTAGE [id number] S [id number] [employer] MEDICARE ADVANTAGE [id number] S [id number] [place] [id number] Self 0 [id number] [place] [id number] Self 0 [id number] [place] Primary [id number] Self 0 [id number] [place] Primary [id number] Self 0 [id number] Medicare [place] Primary [id number] Self 0 [id number] AETNA MEDICARE [id number] SP MEBPZ [id number] EXCELLUS BCBS MEDICARE Medicare [id number] xxxxxxxxxxxx [id number] EXCELLUS MEDICARE BLUE PPO G [id number] Self [id number] EXCELLUS BCBS MEDICARE [id number] Regina [id number] EXCELLUS BCBS MEDICARE [id number] Regina [id number] EXCELLUS BCBS MCR HMO [id number] S [id number] EXCELLUS BCBS MCR HMO [id number] S [id number] FINANCIAL ASSISTANCE [id number] S [id number] FINANCIAL ASSISTANCE [id number] Other [id number] INSURANCE COVID-19 COVID Regina C OVID [id number] A MEDICARE [id number] SP [id number] BLUE CROSS MEDICARE ADVANTAGE [id number] Other [id number] EXCELLUS CNY MEDICARE HM [id number] 18 [id number] EXCELLUS BCBS B [id number] S [id number] BLUE CROSS BLUE SHIELD MCR - PROFEE [id number] 1 [id number] BLUE CROSS BLUE SHIELD MCR -OP [id number] 18 [id number] BLUE CROSS BLUE SHIELD MCR -IP [id number] 18 [id number] MEDICARE BLUE PPO 306 [id number] SP [id number] AETNA MEDICARE [id number] SP MEBPZ [id number] EXCELLUS BCBS MEDICARE Medicare [facility] ANSI-Medicare Part B [id number] ANSI-Medicare Part B [id number] ANSI-Medicare Part B [id number] ANSI-Medicare Part B [id number] [facility] [id number] [facility] [id number] MEDICARE [id number] SP [id number] A AETNA MEDICARE O [id number] S MEBPZ 4JM MEDICARE [id number] SP [id number] A AETNA MEDICARE [id number] SP MEBPZ 4JM MEDICARE [id number] SP [id number] A MEDICAID UNAVAILABLE UNAVAILA BLE [place] [id number] Self 0 [id number] AETNA MEDICARE O [id number] S [id number] AETNA MEDICARE [id number] SP [id number] [employer] [place] [id number] SP [id number] [employer] -O/P [id number] 18 [id number] MEDICARE -O/P [id number] 18 [id number] MEDICARE -PHYSICIAN [id number] 18 [id number] [employer] -PHYSICIAN [id number] 18 [id number] MEDICARE BLUE PPO 306 [id number] SP [id number] Problems, Conditions, and Diagnoses Code Display Name Description Problem Type Effective Dates Data Source(s) Z91.11 Patient's noncompliance with dietary reg imen PATIENT'S NONCOMPLIANCE WITH DIETARY REGIMEN Diagnosis 05/04/2021 09:29:00 AM EDT [facility] Z91.19 Patient's noncompliance with other medic al treatment and regimen PATIENT'S NONCOMPLIANCE W OTH MEDICAL TREATMENT AND REGIMEN Diagnosis 05/04/2021 09:29:00 AM EDT [facility] E78.5 Hyperlipidemia, unspecified HYPERLIPIDEMIA, UNSPECIFIE D Diagnosis [facility] Essential (primary) hypertension ESSENTIAL (PRIMARY) H YPERTENSION Diagnosis 05/04/2021 09:29:00 AM EDT [facility] E11.65 Type 2 diabetes mellitus with hyperglyce kristyn TYPE 2 DIABETES MELLITUS WITH HYPERGLYCEMIA Diagnosis 05/04/2021 09:29:00 AM EDT [facility] G47.30 Sleep apnea, unspecified Sleep apnea, unspecified Diag nosis 02/07/2021 03:03:00 PM EDT [facility] I21.9 Acute myocardial infarction, unspecified Acute myocardial infarction, unspecified Diagnosis 02/07/2021 03:03:00 PM EDT [facility] N18.4 Chronic kidney disease, stage 4 (severe) Chronic kidney disease, stage 4 (severe) Diagnosis 02/07/2021 03:03:00 PM EDT [facility] I11.0 Hypertensive heart disease with heart fa ilure Hypertensive heart disease with heart failure Diagnosis 01/14/2021 11:59:[address] [facility] R77.8 Other specified abnormalities of plasma proteins Other specified abnormalities of plasma proteins Diagnosis 01/14/2021 11:59:00 AM [facility] R94.31 Abnormal electrocardiogram [ECG] [EKG] A bnormal electrocardiogram (ECG) (EKG) Diagnosis 01/14/2021 11:59:[address] [facility] R06.02 Shortness of breath Shortness of breath Diagnosis 0 01/14/2021 11:59:00 AM [facility] I50.9 Heart failure, unspecified Heart failure, unspecified Diagnosis 01/14/2021 11:59:00 AM [facility] R07.9 Chest pain, unspecified Chest pain, unspecified Diagno sis 01/14/2021 11:59:00 AM [facility] J96.01 Acute respiratory failure with hypoxia A cute respiratory failure with hypoxia Diagnosis 01/14/2021 11:59:[address] 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 Z91.14 Patient's other noncompliance with medic ation regimen PATIENT'S OTHER NONCOMPLIANCE WITH MEDICATION REGIMEN Diagnosis 11/06/2020 02:38:00 PM [facility] E11.319 Type 2 diabetes mellitus wit h unspecified diabetic retinopathy without macular edema TYPE 2 DIABETES W UNSP DIABETIC RTNOP W/O MACULAR EDEMA Diag nosis 11/06/2020 02:38:00 PM 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 Diagnosis 08/22/2020 09:36: 00 AM [facility] B351 Tinea unguium Tinea unguium Diagnosis 08/22/2020 09:36:00 AM [facility] M2040 Other hammer toe(s) (acquired), unspecif ied foot Other hammer toe(s) (acquired), unspecified foot Diagnosis 08/22/2020 09:36:00 AM [facility] [id number] Contusion of right lesser toe(s) with da mage to nail, initial encounter Contusion of right lesser toe(s) with damage to nail, initial encounter Diagnosis 08/22/2020 09:36:00 AM [facility] E1151 Type 2 diabetes mellitus wit h diabetic peripheral angiopathy without gangrene Type 2 diabetes mellitus with diabetic p eripheral angiopathy without gangrene Diagnosis 08/22/2020 09:36:00 AM [facility] O04586 Pain in left foot Pain in left foot Diagnosis 07/13/2020 02:34:00 PM [facility] A69352 Pressure ulcer of other site, stage 3 Pr essure ulcer of other site, stage 3 Diagnosis 07/13/2020 02:34:00 PM [facility] Z952 Presence of prosthetic heart valve Presence of p rosthetic heart valve Diagnosis 07/05/2020 03:34:00 PM [facility] Z951 Presence of aortocoronary bypass graft P resence of aortocoronary bypass graft Diagnosis 07/05/2020 03:34:00 PM [facility] Z7901 care home (current) use of anticoagulant s care home (current) use of anticoagulants Diagnosis 07/05/2020 03:34:00 PM [facility] Z794 predatory animal exterminator (current) use of insulin care home (cu rrent) use of insulin Diagnosis 07/05/2020 03:34:00 PM [facility] N97276 Other predatory animal exterminator (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 therapy O ther half-way (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 therapy Diagnosis 07/05/2020 03:34:00 PM [facility] Z7982 predatory animal exterminator (current) use of aspirin care home (cu rrent) use of aspirin Diagnosis 07/05/2020 03:34:00 PM [facility] X70482 Presence of other cardiac implants and g rafts Presence of other cardiac implants and grafts Diagnosis 07/05/2020 03:34:00 PM [facility] E29922 Personal history of pulmonary embolism P ersonal history of pulmonary embolism Diagnosis 07/05/2020 03:34:00 PM [facility] E1122 Type 2 diabetes mellitus with diabetic c hronic kidney disease Type 2 diabetes mellitus with diabetic chronic kidney disease Diagnosis 07/05/2020 03:34:00 PM [facility] N184 Chronic kidney disease, stage 4 (severe) Chronic kidney disease, stage 4 (severe) Diagnosis 07/05/2020 03:34:00 PM [facility] 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 and stage 1 through stage 4 chronic kidney disease, or unspecified chronic kidney disease Hypertensive heart and chronic kidney disease with heart failure and stage 1 through stage 4 chronic kidney disease, or unspecified chronic kidney disease Diagnosis 07/05/2020 03:34:00 PM [facility] J449 Chronic obstructive pulmonary disease, u nspecified Chronic obstructive pulmonary disease, unspecified Diagnosis 07/05/2020 03:34:00 PM EST [facility] E7800 Pure hypercholesterolemia, unspecified P ure hypercholesterolemia, unspecified Diagnosis 07/05/2020 03:34:00 PM [facility] I509 Heart failure, unspecified Heart failure, unspecified Diagnosis 07/05/2020 03:34:00 PM [facility] I4820 Chronic atrial fibrillation, unspecified Chronic atrial fibrillation, unspecified Diagnosis 07/05/2020 03:34:00 PM [facility] I2510 Atherosclerotic heart diseas e of [place] coronary artery without angina pectoris Atherosclerotic heart disease of [place] coronary artery without angina pectoris Diagnosis 07/05/2020 03:34:00 PM [facility] H94990 Cellulitis of right lower limb Cellulitis of right low er limb Diagnosis 07/05/2020 03:34:00 PM [facility] V49406 Subacute osteomyelitis, right ankle and foot Subacute osteomyelitis, right ankle and foot Diagnosis 07/05/2020 03:34:00 PM [facility] R2241 Localized swelling, mass and lump, right lower limb Localized swelling, mass and lump, right lower limb Diagnosis 07/05/2020 03:34:00 PM [facility] [id number] Blister (nonthermal), left great toe, in itial encounter Blister (nonthermal), left great toe, initial encounter Diagnosis 2019 02:03:00 PM [facility] Y9289 Other specified places as the place of o ccurrence of the external cause Other specified places as the place of occurrence of the external cause Diagnosis 05/31/2020 [id number] Exposure to other specified factors, ini tial encounter Exposure to other specified factors, initial encounter Diagnosis 05/31/2020 04:25:00 PM [facility] E119 Type 2 diabetes mellitus without complic ations Type 2 diabetes mellitus without complications [facility] Hypertensive heart disease with heart fa ilure Hypertensive heart disease with heart failure Diagnosis 05/31/2020 [facility] [id number] Laceration without foreign b vivek of right index finger without damage to nail, initial encounter Laceration without foreign body of right index finger without damage to nail, initial encounter Diagnosis 05/31/2020 04:25:0 0 PM [facility] [id number] Unspecified open wound of ri ght index finger without damage to nail, initial encounter Unspecified open wound of right index fi nger without damage to nail, initial encounter Diagnosis 05/31/2020 04:25:00 PM [facility] Y92.010 Kitchen of single-family (pr ivate) house as the place of occurrence of the external cause KITCHEN OF SINGLE-FAMILY (PRIVATE) HOUSE PLACE Diagnosis 05/30/2020 11:46:00 AM [facility] W26.8XXA Contact with other sharp obj ect(s), not elsewhere classified, initial encounter CONTACT WITH OTHER SHARP OBJECT(S), NEC, INITIAL ENCOUNTER D iagnosis 05/30/2020 11:46:00 AM [facility] Z95.2 Presence of prosthetic heart valve PRESENCE OF P ROSTHETIC HEART VALVE Diagnosis 05/30/2020 11:46:00 AM [facility] Z95.1 Presence of aortocoronary bypass graft P RESENCE OF AORTOCORONARY BYPASS GRAFT Diagnosis 05/30/2020 11:46:[address] [facility] Z79.01 predatory animal exterminator (current) use of anticoagulant s TACK DRILLER (CURRENT) USE OF ANTICOAGULANTS Diagnosis 05/30/2020 11:46:[address] 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 PERSONAL HISTORY OF METHICILLIN RESIS STAPH INFECTION Diagno sis 05/30/2020 11:46:00 AM EDT [facility] S61.215A Laceration without foreign b vivek of left ring finger without damage to nail, initial encounter LACERATION W/O FB OF L RNG FNGR W/O DONYA GE TO NAIL, INIT Diagnosis 05/30/2020 11:46:00 AM EDT [facility] normantal S61.012A Laceration without foreign b vivek of left thumb without damage to nail, initial encounter LACERATION W/O FB OF LEFT THUMB W/O DAMAGE TO NAIL, IN IT Diagnosis 05/30/2020 11:46:00 AM EDT [facility] S61.213A Laceration without foreign b vivek of left middle finger without damage to nail, initial encounter LACERATION W/O FB OF L MID FINGER W/O DA MAGE TO NAIL, INIT Diagnosis 05/30/2020 11:46:[facility] Unspecified place in unspeci fied non-institutional (private) residence as the place of occurrence of the external cause Unspecified place in unspecified non-institutional (private) residence as the place of occurrence of the external cause Diagnosis 05/19/2020 07:31:00 PM EDT [facility] Z23 Encounter for immunization Encounter for immunization Diagnosis 05/19/2020 07:31:00 PM EDT [facility] [id number] Unspecified open wound of ri ght great toe without damage to nail, initial encounter Unspecified open wound of right great to e without damage to nail, initial encounter Diagnosis 05/19/2020 07:31:00 PM EDT [facility] [id number] Unspecified injury of right foot, initia l encounter Unspecified injury of right foot, initial encounter Diagnosis 05/19/2020 07:31:00 PM EDT [facility] I21.9 Acute myocardial infarction Acute myocardial infarctio n [id number] 02/07/2021 12:00:00 AM EDT [facility] I21.4 Non-ST elevation (NSTEMI) myocardial inf arction Non-ST elevation (NSTEMI) myocardial infarction [id number] 02/07/2021 12:00:00 AM EDT [facility] L84 Callosity Callosity Problem 11/01/2020 [...] 12:00:00 AM EST [facility] ([facility] [id number] Pressure ulcer of right foot stage 3 Pre ssure ulcer of right foot stage 3 Problem 07/13/2020 12:00:00 AM EST [facility] ([facility]) [id number] Blister of toe without infection Blister of toe without infection Problem 05/22/2020 12:00:00 AM EDT [facility] ([facility]) Surgeries/Procedures Procedure Description Date Indications Data Source(s) OFFICE OUTPATIENT VISIT 15 MINUTES 06/18/2021 12:00:00 AM EDT [facility] ([facility], ) ECG ROUTINE ECG W/LEAST 12 LDS W/I&R 05/10/2021 12:00: 00 AM EDT [facility] ([facility]) OFFICE OUTPATIENT VISIT 25 MINUTES 05/10/2021 12:00:00 [facility] clinic visit for assessment and ma nagement of a patient Hospital Outpatient Clinic Visit 05/04/2021 12:00:00 AM EDT [facility] GLUC BLD GLUC MNTR DEV CLEARED FDA SPEC HOME USE GLUCOSE BLO OD TEST 05/04/2021 12:00:00 AM EDT [facility] OFFICE OUTPATIENT VISIT 15 MINUTES 04/30/2021 12:00:00 AM EDT [facility] ([facility], ) PARING/CUTTING BENIGN HYPERKERATOTIC LESION 1 03/13/20 12:00:00 AM EDT [facility] ([facility] DEBRIDEMENT NAIL ANY METHOD 03/13/2021 12:00:00 AM EDT [facility] ([facility] ECG ROUTINE ECG W/LEAST 12 LDS W/I&R 02/26/2021 12:00: [facility]PAT[facility] V[facility] 25 MINUTES 02/26/2021 12:00:00 AM EDT [facility] ([facility]) GLUC BLD GLUC MNTR DEV CLEARED FDA SPEC HOME USE <td>P OCT GLUCOSE</td><td>Routine</td><td>02/11/2021 1:55 PM EDT</td><td></td><td> </td> 02/11/2021 01:55:00 PM EDT [facility] GLUC BLD GLUC MNTR DEV CLEARED FDA SPEC HOME USE <td>P OCT GLUCOSE</td><td>Routine</td><td>02/11/2021 9:15 AM EDT</td><td></td><td> </td> 02/11/2021 09:15:00 AM EDT [facility] BLOOD COUNT COMPLETE AUTOMATED <td>CBC</td><td>Timed</ td><td>02/11/2021 6:29 AM EDT</td><td></td><td> </td> 02/11/2021 06:29:00 AM EDT [facility] BASIC METABOLIC PANEL CALCIUM TOTAL <td>BASIC METABOLI C PANEL</td><td>Timed</td><td>02/11/2021 6:29 AM EDT</td><td></td><td> </td> 02/11/2021 06:29:00 AM EDT [facility] GLUC BLD GLUC MNTR DEV CLEARED FDA SPEC HOME USE <td>P OCT GLUCOSE</td><td>Routine</td><td>02/10/2021 9:25 PM EDT</td><td></td><td> </td> 02/10/2021 09:25:00 PM EDT [facility] GLUC BLD GLUC MNTR DEV CLEARED FDA SPEC HOME USE <td>P OCT GLUCOSE</td><td>Routine</td><td>02/10/2021 6:57 PM EDT</td><td></td><td> </td> 02/10/2021 06:57:00 PM EDT [facility] BLOOD TYPING ABO <td>TYPE AND SCREEN</td><td> Routine</td><td>02/10/2021 1:44 PM EDT</td><td></td><td> </td> 02/10/2021 01:44:00 PM EDT [facility] GLUC BLD GLUC MNTR DEV CLEARED FDA SPEC HOME USE <td>P OCT GLUCOSE</td><td>Routine</td><td>02/10/2021 1:42 PM EDT</td><td></td><td> </td> 02/10/2021 01:42:00 PM EDT [facility] BLOOD OCCULT PEROXIDASE ACTV QUAL FECES 1 DETER <td>OC CULT BLOOD X 1, STOOL</td><td>Routine</td><td>02/10/2021 12:40 PM EDT</td><td></td><td> </td> 02/10/2021 12:40:00 PM EDT [facility] DUP-SCAN LXTR ART/ARTL BPGS UNI/LMTD STUDY <td>US COLO R DOPPLER LOWER EXTREMITY ARTERIES LIMITED RIGHT</td><td>Routine</td><td>02/10/2021 11:01 AM EDT</td><td></td><td> </td> 02/10/2021 11:01:55 AM EDT [facility] BLOOD COUNT COMPLETE AUTOMATED <td>CBC</td><td>STAT</t d><td>02/10/2021 9:44 AM EDT</td><td></td><td> </td> 02/10/2021 09:44:00 AM EDT [facility] BASIC METABOLIC PANEL CALCIUM TOTAL <td>BASIC METABOLI C PANEL</td><td>Timed</td><td>02/10/2021 9:44 AM EDT</td><td></td><td> </td> 02/10/2021 09:44:00 AM EDT [facility] GLUC BLD GLUC MNTR DEV CLEARED FDA SPEC HOME USE <td>P OCT GLUCOSE</td><td>Routine</td><td>02/10/2021 9:34 AM EDT</td><td></td><td> </td> 02/10/2021 09:34:00 AM EDT [facility] GLUC BLD GLUC MNTR DEV CLEARED FDA SPEC HOME USE <td>P OCT GLUCOSE</td><td>Routine</td><td>02/09/2021 10:16 PM EDT</td><td></td><td> </td> 02/09/2021 10:16:00 PM EDT [facility] GLUC BLD GLUC MNTR DEV CLEARED FDA SPEC HOME USE <td>P OCT GLUCOSE</td><td>Routine</td><td>02/09/2021 7:11 PM EDT</td><td></td><td> </td> 02/09/2021 07:11:00 PM EDT [facility] GLUC BLD GLUC MNTR DEV CLEARED FDA SPEC HOME USE <td>P OCT GLUCOSE</td><td>Routine</td><td>02/09/2021 3:38 PM EDT</td><td></td><td> </td> 02/09/2021 03:38:00 PM EDT [facility] GLUC BLD GLUC MNTR DEV CLEARED FDA SPEC HOME USE <td>P OCT GLUCOSE</td><td>Routine</td><td>02/09/2021 9:10 AM EDT</td><td></td><td> </td> 02/09/2021 09:10:00 AM EDT [facility] CMB <td>CMB</td><td>STAT</td><td >02/09/2021 7:24 AM EDT</td><td></td><td> </td> 02/09/2021 07:24:00 AM EDT [facility] BLOOD COUNT COMPLETE AUTOMATED <td>CBC</td><td>Timed</ td><td>02/09/2021 7:24 AM EDT</td><td></td><td> </td> 02/09/2021 07:24:00 AM EDT [facility] CREATINE KINASE MB FRACTION ONLY <td>CKMB</td><td>Rout ine</td><td>02/09/2021 7:24 AM EDT</td><td></td><td> </td> 02/09/2021 07:24:00 AM EDT [facility] BASIC METABOLIC PANEL CALCIUM TOTAL <td>BASIC METABOLI C PANEL</td><td>Timed</td><td>02/09/2021 7:24 AM EDT</td><td></td><td> </td> 02/09/2021 07:24:00 AM EDT [facility] ECG ROUTINE ECG W/LEAST 12 LDS TRCG ONLY W/O I&R <td>E CG 12- LEAD</td><td>Routine</td><td>02/09/2021 5:19 AM EDT</td><td></td><td></td> 02/09/2021 05:19:46 AM EDT [facility] BLOOD COUNT COMPLETE AUTOMATED <td>CBC</td><td>STAT</t d><td>02/08/2021 11:11 PM EDT</td><td></td><td> </td> 02/08/2021 11:11:00 PM EDT [facility] GLUC BLD GLUC MNTR DEV CLEARED FDA SPEC HOME USE <td>P OCT GLUCOSE</td><td>Routine</td><td>02/08/2021 9:03 PM EDT</td><td></td><td> </td> 02/08/2021 09:03:00 PM EDT [facility] GLUC BLD GLUC MNTR DEV CLEARED FDA SPEC HOME USE <td>P OCT GLUCOSE</td><td>Routine</td><td>02/08/2021 3:55 PM EDT</td><td></td><td> </td> 02/08/2021 03:55:00 PM EDT [facility] CARDIAC CATHETERIZATION <td>CARDIAC CATHETERIZATION</td><td>Routine</td><td>02/08/2021 2:25 PM EDT</td><td> Acute myocardial infarction</td><td> </td> 02/08/2021 02:25:25 PM EDT Acute myocardial infarction [facility] Acute myocardial infarction THROMBOPLASTIN TIME PARTIAL PLASMA/WHOLE BLOOD <td>APTT</td><td>STAT</td><td>02/08/2021 12:20 PM EDT</td><td></td><td> </td> 02/08/2021 12:20:00 PM EDT [facility] GLUC BLD GLUC MNTR DEV CLEARED FDA SPEC HOME USE <td>P OCT GLUCOSE</td><td>Routine</td><td>02/08/2021 11:19 AM EDT</td><td></td><td> </td> 02/08/2021 11:19:00 AM EDT [facility] GLUC BLD GLUC MNTR DEV CLEARED FDA SPEC HOME USE <td>P OCT GLUCOSE</td><td>Routine</td><td>02/08/2021 8:17 AM EDT</td><td></td><td> </td> 02/08/2021 08:17:00 AM EDT [facility] THROMBOPLASTIN TIME PARTIAL PLASMA/WHOLE BLOOD <td>APTT</td><td>STAT</td><td>02/08/2021 4:02 AM EDT</td><td></td><td> </td> 02/08/2021 04:02:00 AM EDT [facility] BLOOD COUNT COMPLETE AUTOMATED <td>CBC</td><td>Routine </td><td>02/08/2021 4:02 AM EDT</td><td></td><td> </td> 02/08/2021 04:02:00 AM EDT [facility] BASIC METABOLIC PANEL CALCIUM TOTAL <td>BASIC METABOLI C PANEL</td><td>Routine</td><td>02/08/2021 4:02 AM EDT</td><td></td><td> </td> 02/08/2021 04:02:00 AM EDT [facility] COVID/FLU AB/RSV PCR <td>COVID/FLU AB/RSV PCR</td ><td>STAT</td><td>02/07/2021 10:40 PM EDT</td><td></td><td> </td> 02/07/2021 10:40:00 PM EDT [facility] THROMBOPLASTIN TIME PARTIAL PLASMA/WHOLE BLOOD <td>APTT</td><td>Routine</td><td>02/07/2021 9:44 PM EDT</td><td></td><td> </td> 02/07/2021 09:44:00 PM EDT [facility] ECG ROUTINE ECG W/LEAST 12 LDS TRCG ONLY W/O I&R <td>E CG 12- LEAD</td><td>Routine</td><td>02/07/2021 8:37 PM EDT</td><td></td><td></td> 02/07/2021 08:37:43 PM EDT [facility] ECG ROUTINE ECG W/LEAST 12 LDS TRCG ONLY W/O I&R <td>E CG 12- LEAD</td><td>Routine</td><td>02/07/2021 3:29 PM EDT</td><td></td><td></td> 02/07/2021 03:29:10 PM EDT [facility] CMB <td>CMB</td><td>STAT</td><td >02/07/2021 3:26 PM EDT</td><td></td><td> </td> 02/07/2021 03:26:00 PM EDT [facility] NT PRO BNP <td>NT PRO BNP</td><td>Routi ne</td><td>02/07/2021 3:26 PM EDT</td><td></td><td> </td> 02/07/2021 03:26:00 PM EDT [facility] TROPONIN QUANTITATIVE <td>TROPONIN I</td><td>STAT< /td><td>02/07/2021 3:26 PM EDT</td><td></td><td> </td> 02/07/2021 03:26:00 PM EDT [facility] THROMBOPLASTIN TIME PARTIAL PLASMA/WHOLE BLOOD <td>APT T</td><td>Add- On</td><td>02/07/2021 3:26 PM EDT</td><td></td><td> </td> 02/07/2021 03:26:00 PM EDT [facility] BLOOD COUNT COMPLETE AUTOMATED <td>CBC</td><td>STAT</t d><td>02/07/2021 3:26 PM EDT</td><td></td><td> </td> 02/07/2021 03:26:00 PM EDT [facility] HEMOGLOBIN GLYCOSYLATED A1C <td>HEMOGLOBIN A1C</td><td >Add-On</td><td>02/07/2021 3:26 PM EDT</td><td></td><td> </td> 02/07/2021 03:26:00 PM EDT [facility] CREATINE KINASE MB FRACTION ONLY <td>CKMB</td><td>Add- On</td><td>02/07/2021 3:26 PM EDT</td><td></td><td> </td> 02/07/2021 03:26:00 PM EDT [facility] BASIC METABOLIC PANEL CALCIUM TOTAL <td>BASIC METABOLI C PANEL</td><td>STAT</td><td>02/07/2021 3:26 PM EDT</td><td></td><td> </td> 02/07/2021 03:26:00 PM EDT [facility] GLUC BLD GLUC MNTR DEV CLEARED FDA SPEC HOME USE <td>P OCT GLUCOSE</td><td>Routine</td><td>02/07/2021 3:14 PM EDT</td><td></td><td> </td> 02/07/2021 03:14:00 PM EDT [facility] OFFICE OUTPATIENT VISIT 25 MINUTES 02/05/2021 12:00:00 AM EDT [facility] (George Minor MD) OFFICE OUTPATIENT NEW 30 MINUTES 01/23/2021 12:00:00 A M EDT [facility] ([facility], ) POCT GLUCOSE, DOCKED <td>POCT GLUCOSE, DOCKED</td ><td>Routine</td><td>01/19/2021 1:08 PM EDT</td><td></td><td> </td> 01/19/2021 01:08:00 PM [facility] POCT GLUCOSE, DOCKED <td>POCT GLUCOSE, DOCKED</td ><td>Routine</td><td>01/19/2021 9:08 AM EDT</td><td></td><td> </td> 01/19/2021 09:08:00 AM [facility] BLOOD COUNT COMPLETE AUTO&AUTO DIFRNTL WBC COUNT <td>C BC AND DIFFERENTIAL</td><td>Routine</td><td>01/19/2021 5:30 AM EDT</td><td></td><td> </td> 01/19/2021 05:30:00 AM [facility] BASIC METABOLIC PANEL CALCIUM TOTAL <td>BASIC METABOLI C PANEL</td><td>Routine</td><td>01/19/2021 5:30 AM EDT</td><td></td><td> </td> 01/19/2021 05:30:00 AM [facility] GLUCOSE QUANTITATIVE BLOOD XCPT REAGENT STRIP <td>POCT GLUCOSE, DOCKED</td><td>Routine</td><td>01/18/2021 10:31 PM EDT</td><td></td><td> </td> 01/18/2021 10:31:00 PM [facility] GLUCOSE QUANTITATIVE BLOOD XCPT REAGENT STRIP <td>POCT GLUCOSE, DOCKED</td><td>Routine</td><td>01/18/2021 5:36 PM EDT</td><td></td><td> </td> 01/18/2021 05:36:00 PM [facility] GLUCOSE QUANTITATIVE BLOOD XCPT REAGENT STRIP <td>POCT GLUCOSE, DOCKED</td><td>Routine</td><td>01/18/2021 12:28 PM EDT</td><td></td><td> </td> 01/18/2021 12:28:00 PM [facility] GLUCOSE QUANTITATIVE BLOOD XCPT REAGENT STRIP <td>POCT GLUCOSE, DOCKED</td><td>Routine</td><td>01/18/2021 8:42 AM EDT</td><td></td><td> </td> 01/18/2021 08:42:00 AM [facility] BLOOD COUNT COMPLETE AUTO&AUTO DIFRNTL WBC COUNT <td>C BC AND DIFFERENTIAL</td><td>Routine</td><td>01/18/2021 3:34 AM EDT</td><td></td><td> </td> 01/18/2021 03:34:00 AM [facility] PARATHORMONE <td>PTH, INTACT</td><td>Rout ine</td><td>01/18/2021 3:34 AM EDT</td><td></td><td> </td> 01/18/2021 03:34:00 AM [facility] BASIC METABOLIC PANEL CALCIUM TOTAL <td>BASIC METABOLI C PANEL</td><td>Routine</td><td>01/18/2021 3:34 AM EDT</td><td></td><td> </td> 01/18/2021 03:34:00 AM [facility] GLUCOSE QUANTITATIVE BLOOD XCPT REAGENT STRIP <td>POCT GLUCOSE, DOCKED</td><td>Routine</td><td>01/17/2021 8:24 PM EDT</td><td></td><td> </td> 01/17/2021 08:24:00 PM [facility] BLOOD COUNT COMPLETE AUTOMATED <td>CBC</td><td>Routine </td><td>01/17/2021 7:43 PM EDT</td><td></td><td> </td> 01/17/2021 07:43:00 PM [facility] GLUCOSE QUANTITATIVE BLOOD XCPT REAGENT STRIP <td>POCT GLUCOSE, DOCKED</td><td>Routine</td><td>01/17/2021 5:30 PM EDT</td><td></td><td> </td> 01/17/2021 05:30:00 PM [facility] GLUCOSE QUANTITATIVE BLOOD XCPT REAGENT STRIP <td>POCT GLUCOSE, DOCKED</td><td>Routine</td><td>01/17/2021 12:16 PM EDT</td><td></td><td> </td> 01/17/2021 12:16:00 PM [facility] GLUCOSE QUANTITATIVE BLOOD XCPT REAGENT STRIP <td>POCT GLUCOSE, DOCKED</td><td>Routine</td><td>01/17/2021 8:44 AM EDT</td><td></td><td> </td> 01/17/2021 08:44:00 AM [facility] BLOOD COUNT COMPLETE AUTOMATED <td>CBC AND DIFFERENTIAL</td><td>Routine</td><td>01/17/2021 6:00 AM EDT</td><td></td><td> </td> 01/17/2021 06:00:00 AM [facility] TROPONIN QUANTITATIVE <td>TROPONIN T</td><td>Timed </td><td>01/17/2021 6:00 AM EDT</td><td></td><td> </td> 01/17/2021 06:00:00 AM [facility] BASIC METABOLIC PANEL CALCIUM TOTAL <td>BASIC METABOLI C PANEL</td><td>Routine</td><td>01/17/2021 6:00 AM EDT</td><td></td><td> </td> 01/17/2021 06:00:00 AM [facility] BLOOD COUNT COMPLETE AUTO&AUTO DIFRNTL WBC COUNT <td>C BC AND DIFFERENTIAL</td><td>Routine</td><td>01/17/2021 2:07 AM EDT</td><td></td><td> </td> 01/17/2021 02:07:00 AM [facility] TROPONIN QUANTITATIVE <td>TROPONIN T</td><td>Timed </td><td>01/17/2021 2:07 AM EDT</td><td></td><td> </td> 01/17/2021 02:07:00 AM [facility] GLUCOSE QUANTITATIVE BLOOD XCPT REAGENT STRIP <td>POCT GLUCOSE, DOCKED</td><td>Routine</td><td>01/16/2021 8:19 PM EDT</td><td></td><td> </td> 01/16/2021 08:19:00 PM [facility] TROPONIN QUANTITATIVE <td>TROPONIN T</td><td>Timed </td><td>01/16/2021 7:52 PM EDT</td><td></td><td> </td> 01/16/2021 07:52:00 PM [facility] GLUCOSE QUANTITATIVE BLOOD XCPT REAGENT STRIP <td>POCT GLUCOSE, DOCKED</td><td>Routine</td><td>01/16/2021 5:32 PM EDT</td><td></td><td> </td> 01/16/2021 05:32:00 PM [facility] SEDIMENTATION RATE RBC AUTOMATED <td>SEDIMENTATION RAT E, AUTOMATED</td><td>Routine</td><td>01/16/2021 12:56 PM EDT</td><td></td><td> </td> 01/16/2021 12:56:00 PM [facility] BLOOD COUNT COMPLETE AUTO&AUTO DIFRNTL WBC COUNT <td>C BC AND DIFFERENTIAL</td><td>Routine</td><td>01/16/2021 12:56 PM EDT</td><td></td><td> </td> 01/16/2021 12:56:00 PM [facility] C-REACTIVE PROTEIN <td>INFLAMMATORY C-REACTIVE PROTEIN (CRP)</td><td>Routine</td><td>01/16/2021 12:56 PM EDT</td><td></td><td> </td> 01/16/2021 12:56:00 PM [facility] TROPONIN QUANTITATIVE <td>TROPONIN T</td><td>Routi ne</td><td>01/16/2021 12:56 PM EDT</td><td></td><td> </td> 01/16/2021 12:56:00 PM [facility] LACTATE <td>LACTIC ACID LEVEL, PLASM A</td><td>STAT</td><td>01/16/2021 12:56 PM EDT</td><td></td><td> </td> 01/16/2021 12:56:00 PM [facility] COMPREHENSIVE METABOLIC PANEL <td>COMPREHENSIVE METABO LIC PANEL</td><td>Routine</td><td>01/16/2021 12:56 PM EDT</td><td></td><td> </td> 01/16/2021 12:56:00 PM [facility] GLUCOSE QUANTITATIVE BLOOD XCPT REAGENT STRIP <td>POCT GLUCOSE, DOCKED</td><td>Routine</td><td>01/16/2021 12:10 PM EDT</td><td></td><td> </td> 01/16/2021 12:10:[address] [facility] [address] HEAD/BRAIN W/O CONTRAST MATERIAL <td>CT HEAD WITHOU T CONTRAST [id number]</td><td>STAT</td><td>01/16/2021 10:23 AM EDT</td><td></td><td> </td> 01/16/2021 10:23:15 AM [facility] GLUCOSE QUANTITATIVE BLOOD XCPT REAGENT STRIP <td>POCT GLUCOSE, DOCKED</td><td>Routine</td><td>01/16/2021 8:27 AM EDT</td><td></td><td> </td> 01/16/2021 08:27:00 AM [facility] EKG 12-LEAD - CMAXX REPORT <td>EKG 12-LEAD - CMAXX REPORT</td><td></td><td>01/16/2021 6:47 AM EDT</td><td></td><td></td> 01/16/2021 06:47:03 AM [facility] EKG 12-LEAD - CMAXX REPORT <td>EKG 12-LEAD - CMAXX REPORT</td><td></td><td>01/16/2021 6:47 AM EDT</td><td></td><td></td> 01/16/2021 06:47:03 AM [facility] EKG 12-LEAD <td>EKG 12-LEAD</td><td>Rout ine</td><td>01/16/2021 6:47 AM EDT</td><td></td><td> </td> 01/16/2021 06:47:03 AM [facility] BLOOD COUNT RETICULOCYTE AUTOMATED <td>RETICULOCYTES</td><td>Routine</td><td>01/16/2021 6:18 AM EDT</td><td></td><td> </td> 01/16/2021 06:18:00 AM [facility] BLOOD COUNT COMPLETE AUTO&AUTO DIFRNTL WBC COUNT <td>C BC AND DIFFERENTIAL</td><td>Routine</td><td>01/16/2021 6:18 AM EDT</td><td></td><td> </td> 01/16/2021 06:18:00 AM [facility] TROPONIN QUANTITATIVE <td>TROPONIN T</td><td>Routi ne</td><td>01/16/2021 6:18 AM EDT</td><td></td><td> </td> 01/16/2021 06:18:00 AM [facility] NEUTROPHIL CYTO AB COMMENT <td>NEUTROPHIL CYTO AB COMMENT</td><td>Routine</td><td>01/16/2021 12:49 AM EDT</td><td></td><td> </td> 01/16/2021 12:49:00 AM [facility] IAAD EIA HIV-1 AG W/HIV-1&HIV-2 ANTBDY SINGLE <td>HIV AG AB COMBO SCREEN</td><td>Routine</td><td>01/16/2021 12:49 AM EDT</td><td></td><td> </td> 01/16/2021 12:49:00 AM [facility] FLUORESCENT NONNFCT AGT ANTB TITER EA ANTIBODY <td>SARAN TROPHIL CYTOPLASMIC ANTIBODY</td><td>Routine</td><td>01/16/2021 12:49 AM EDT</td><td></td><td> </td> 01/16/2021 12:49:00 AM [facility] HEPATITIS B CORE ANTIBODY HBCAB IGM ANTIBODY <td>HEPAT ITIS B CORE ANTIBODY, IGM</td><td>Routine</td><td>01/16/2021 12:49 AM EDT</td><td></td><td> </td> 01/16/2021 12:49:00 AM [facility] HEPATITIS B CORE ANTIBODY HBCAB TOTAL <td>HEPATITIS B CORE ANTIBODY, TOTAL</td><td>Routine</td><td>01/16/2021 12:49 AM EDT</td><td></td><td> </td> 01/16/2021 12:49:00 AM [facility] IADNA HEPATITIS C QUANTIFICATION <td>HEPATITIS C RNA, QUANTITATIVE, PCR</td><td>Routine</td><td>01/16/2021 12:49 AM EDT</td><td></td><td> </td> 01/16/2021 12:49:00 AM [facility] HEPATITIS B SURF ANTIBODY HBSAB <td>HEPATITIS B SURFAC E ANTIBODY</td><td>Routine</td><td>01/16/2021 12:49 AM EDT</td><td></td><td> </td> 01/16/2021 12:49:00 AM [facility] IAAD EIA HEPATITIS B SURFACE ANTIGEN <td>HEPATITIS B S URFACE ANTIGEN</td><td>Routine</td><td>01/16/2021 12:49 AM EDT</td><td></td><td> </td> 01/16/2021 12:49:00 AM [facility] TROPONIN QUANTITATIVE <td>TROPONIN T</td><td>Routi ne</td><td>01/16/2021 12:49 AM EDT</td><td></td><td> </td> 01/16/2021 12:49:00 AM [facility] PROTEIN XCPT REFRACTOMETRY SERUM PLASMA/WHL BLD <td>DE OTEIN ELECTROPHORESIS WITH SERUM TOTAL PROTEIN</td><td>Routine</td><td>01/16/2021 12:49 AM EDT</td><td></td><td> </td> 01/16/2021 12:49:00 AM [facility] FOLIC ACID SERUM <td>FOLATE</td><td>Routine</ td><td>01/16/2021 12:49 AM EDT</td><td></td><td> </td> 01/16/2021 12:49:00 AM [facility] UREA NITROGEN URINE <td>UREA NITROGEN, URINE</td ><td>Routine</td><td>01/16/2021 12:38 AM EDT</td><td></td><td> </td> 01/16/2021 12:38:00 AM [facility] SODIUM URINE <td>SODIUM, URINE, RANDOM</t d><td>Routine</td><td>01/16/2021 12:38 AM EDT</td><td></td><td> </td> 01/16/2021 12:38:00 AM [facility] PROTEIN TOTAL XCPT REFRACTOMETRY URINE <td>PROTEIN ASAD CTROPHORESIS, URINE</td><td>Routine</td><td>01/16/2021 12:38 AM EDT</td><td></td><td> </td> 01/16/2021 12:38:00 AM [facility] OSMOLALITY URINE <td>OSMOLALITY, URINE</td><t d>Routine</td><td>01/16/2021 12:38 AM EDT</td><td></td><td> </td> 01/16/2021 12:38:00 AM [facility] CREATININE OTHER SOURCE <td>CREATININE, URINE, RANDOM</td><td>Routine</td><td>01/16/2021 12:38 AM EDT</td><td></td><td> </td> 01/16/2021 12:38:00 AM [facility] CHLORIDE URINE <td>CHLORIDE, URINE, RANDOM< /td><td>Routine</td><td>01/16/2021 12:38 AM EDT</td><td></td><td> </td> 01/16/2021 12:38:00 AM [facility] GLUCOSE QUANTITATIVE BLOOD XCPT REAGENT STRIP <td>POCT GLUCOSE, DOCKED</td><td>Routine</td><td>01/15/2021 9:29 PM EDT</td><td></td><td> </td> 01/15/2021 09:29:00 PM [facility] US RETROPERITONEAL REAL TIME W/IMAGE COMPLETE <td>US R ENAL OR AORTA COMPLETE [id number]</td><td>Routine</td><td>01/15/2021 9:25 PM EDT</td><td></td><td> </td> 01/15/2021 09:25:06 PM [facility] IRON <td>TOTAL FE BINDING CAPACIT Y</td><td>Routine</td><td>01/15/2021 6:13 PM EDT</td><td></td><td> </td> 01/15/2021 06:13:00 PM [facility] COMPLEMENT ANTIGEN EACH COMPONENT <td>C3 COMPLEMENT</td><td>Routine</td><td>01/15/2021 6:13 PM EDT</td><td></td><td> </td> 01/15/2021 06:13:00 PM [facility] COMPLEMENT ANTIGEN EACH COMPONENT <td>C4 COMPLEMENT</td><td>Routine</td><td>01/15/2021 6:13 PM EDT</td><td></td><td> </td> 01/15/2021 06:13:00 PM [facility] TROPONIN QUANTITATIVE <td>TROPONIN T</td><td>Timed </td><td>01/15/2021 6:13 PM EDT</td><td></td><td> </td> 01/15/2021 06:13:00 PM [facility] FERRITIN <td>FERRITIN LEVEL</td><td>R outine</td><td>01/15/2021 6:13 PM EDT</td><td></td><td> </td> 01/15/2021 06:13:00 PM [facility] CYANOCOBALAMIN VITAMIN B-12 <td>VITAMIN B12</td><td>Ro utine</td><td>01/15/2021 6:13 PM EDT</td><td></td><td> </td> 01/15/2021 06:13:00 PM [facility] GLUCOSE QUANTITATIVE BLOOD XCPT REAGENT STRIP <td>POCT GLUCOSE, DOCKED</td><td>Routine</td><td>01/15/2021 5:18 PM EDT</td><td></td><td> </td> 01/15/2021 05:18:00 PM [facility] ECHO TTHRC R-T 2D W/WOM-MODE COMPL SPEC&COLR DOP <td>E CHOCARDIOGRAM 2D COMPLETE</td><td>Routine</td><td>01/15/2021 1:48 PM EDT</td><td></td><td> </td> 01/15/2021 01:48:48 PM [facility] GLUCOSE QUANTITATIVE BLOOD XCPT REAGENT STRIP <td>POCT GLUCOSE, DOCKED</td><td>Routine</td><td>01/15/2021 12:40 PM EDT</td><td></td><td> </td> 01/15/2021 12:40:00 PM [facility] TROPONIN QUANTITATIVE <td>TROPONIN T</td><td>Timed </td><td>01/15/2021 11:44 AM EDT</td><td></td><td> </td> 01/15/2021 11:44:00 AM [facility] GLUCOSE QUANTITATIVE BLOOD XCPT REAGENT STRIP <td>POCT GLUCOSE, DOCKED</td><td>Routine</td><td>01/15/2021 8:03 AM EDT</td><td></td><td> </td> 01/15/2021 08:03:00 AM [facility] EKG 12-LEAD - CMAXX REPORT <td>EKG 12-LEAD - CMAXX REPORT</td><td></td><td>01/15/2021 5:13 AM EDT</td><td></td><td></td> 01/15/2021 05:13:46 AM [facility] EKG 12-LEAD - CMAXX REPORT <td>EKG 12-LEAD - CMAXX REPORT</td><td></td><td>01/15/2021 5:13 AM EDT</td><td></td><td></td> 01/15/2021 05:13:46 AM [facility] EKG 12-LEAD <td>EKG 12-LEAD</td><td>Rout ine</td><td>01/15/2021 5:13 AM EDT</td><td></td><td> </td> 01/15/2021 05:13:46 AM [facility] BLOOD COUNT COMPLETE AUTO&AUTO DIFRNTL WBC COUNT <td>C BC AND DIFFERENTIAL</td><td>Routine</td><td>01/15/2021 3:58 AM EDT</td><td></td><td> </td> 01/15/2021 03:58:00 AM [facility] TROPONIN QUANTITATIVE <td>TROPONIN T</td><td>Timed </td><td>01/15/2021 3:58 AM EDT</td><td></td><td> </td> 01/15/2021 03:58:00 AM [facility] PHOSPHORUS INORGANIC <td>PHOSPHORUS LEVEL</td><td >Routine</td><td>01/15/2021 3:58 AM EDT</td><td></td><td> </td> 01/15/2021 03:58:00 AM [facility] MAGNESIUM <td>MAGNESIUM LEVEL</td><td> Routine</td><td>01/15/2021 3:58 AM EDT</td><td></td><td> </td> 01/15/2021 03:58:00 AM [facility] BASIC METABOLIC PANEL CALCIUM TOTAL <td>BASIC METABOLI C PANEL</td><td>Routine</td><td>01/15/2021 3:58 AM EDT</td><td></td><td> </td> 01/15/2021 03:58:00 AM [facility] EKG 12-LEAD - CMAXX REPORT <td>EKG 12-LEAD - CMAXX REPORT</td><td></td><td>01/14/2021 11:30 PM EDT</td><td></td><td></td> 01/14/2021 11:30:59 PM [facility] EKG 12-LEAD - CMAXX REPORT <td>EKG 12-LEAD - CMAXX REPORT</td><td></td><td>01/14/2021 11:30 PM EDT</td><td></td><td></td> 01/14/2021 11:30:59 PM [facility] EKG 12-LEAD <td>EKG 12-LEAD</td><td>Rout ine</td><td>01/14/2021 11:30 PM EDT</td><td></td><td> </td> 01/14/2021 11:30:59 PM [facility] GLUCOSE QUANTITATIVE BLOOD XCPT REAGENT STRIP <td>POCT GLUCOSE, DOCKED</td><td>Routine</td><td>01/14/2021 9:55 PM EDT</td><td></td><td> </td> 01/14/2021 09:55:00 PM [facility] CULTURE BACTERIAL BLOOD AEROBIC W/ID ISOLATES <td>BLOO D CULTURE</td><td>Routine</td><td>01/14/2021 9:48 PM EDT</td><td></td><td> </td> 01/14/2021 09:48:00 PM [facility] TROPONIN QUANTITATIVE <td>TROPONIN T</td><td>Timed </td><td>01/14/2021 9:48 PM EDT</td><td></td><td> </td> 01/14/2021 09:48:00 PM [facility] URNLS DIP STICK/TABLET REAGENT AUTO MICROSCOPY <td>URI NALYSIS WITH REFLEX URINE CULTURE</td><td>Routine</td><td>01/14/2021 9:27 PM EDT</td><td></td><td> </td> 01/14/2021 09:27:00 PM [facility] CULTURE BACTERIAL BLOOD AEROBIC W/ID ISOLATES <td>BLOO D CULTURE</td><td>Routine</td><td>01/14/2021 7:47 PM EDT</td><td></td><td> </td> 01/14/2021 07:47:00 PM [facility] GLUCOSE QUANTITATIVE BLOOD XCPT REAGENT STRIP <td>POCT GLUCOSE, DOCKED</td><td>Routine</td><td>01/14/2021 6:22 PM EDT</td><td></td><td> </td> 01/14/2021 06:22:00 PM [facility] HEPATITIS C ANTIBODY <td>HEPATITIS C ANTIBODY</td ><td>Routine</td><td>01/14/2021 5:55 PM EDT</td><td></td><td> </td> 01/14/2021 05:55:00 PM [facility] ANTINUCLEAR ANTIBODIES AMBIKA <td>AMBIKA</td><td>Routine</td ><td>01/14/2021 5:55 PM EDT</td><td></td><td> </td> 01/14/2021 05:55:00 PM [facility] TROPONIN QUANTITATIVE <td>TROPONIN T</td><td>Timed </td><td>01/14/2021 5:55 PM EDT</td><td></td><td> </td> 01/14/2021 05:55:00 PM [facility] PROTHROMBIN TIME <td>PROTIME INR</td><td>Rout ine</td><td>01/14/2021 1:28 PM EDT</td><td></td><td> </td> 01/14/2021 01:28:00 PM [facility] BLOOD TYPING ABO <td>TYPE AND SCREEN</td><td> STAT</td><td>01/14/2021 1:23 PM EDT</td><td></td><td> </td> 01/14/2021 01:23:00 PM [facility] XR CHEST FRONTAL ONLY [id number] <td>XR CHEST FRONTAL ONLY [id number]</td><td>STAT</td><td>01/14/2021 1:07 PM EDT</td><td></td><td> </td> 01/14/2021 01:07:00 PM [facility] TROPONIN QUANTITATIVE <td>POCT ISTAT TROPONIN</td> <td>Routine</td><td>01/14/2021 12:36 PM EDT</td><td></td><td> </td> 01/14/2021 12:36:00 PM [facility] BLOOD GASES ANY COMBINATION PH PCO2 PO2 CO2 HCO3 <td>P OCT ISTAT VBG/LAC</td><td>Routine</td><td>01/14/2021 12:35 PM EDT</td><td></td><td> </td> 01/14/2021 12:35:00 PM [facility] CONFIRMATORY TYPE <td>CONFIRMATORY TYPE</td><t d>Routine</td><td>01/14/2021 12:33 PM EDT</td><td></td><td> </td> 01/14/2021 12:33:00 PM [facility] PROCALCITONIN (PCT) <td>PROCALCITONIN</td><td>Ro utine</td><td>01/14/2021 12:33 PM EDT</td><td></td><td> </td> 01/14/2021 12:33:00 PM [facility] NATRIURETIC PEPTIDE <td>PROBNP</td><td>Routine</ td><td>01/14/2021 12:33 PM EDT</td><td></td><td> </td> 01/14/2021 12:33:00 PM [facility] BLOOD COUNT COMPLETE AUTO&AUTO DIFRNTL WBC COUNT <td>C BC AND DIFFERENTIAL</td><td>Routine</td><td>01/14/2021 12:33 PM EDT</td><td></td><td> </td> 01/14/2021 12:33:00 PM [facility] TROPONIN QUANTITATIVE <td>TROPONIN T</td><td>STAT< /td><td>01/14/2021 12:33 PM EDT</td><td></td><td> </td> 01/14/2021 12:33:00 PM [facility] MAGNESIUM <td>MAGNESIUM LEVEL</td><td> STAT</td><td>01/14/2021 12:33 PM EDT</td><td></td><td> </td> 01/14/2021 12:33:00 PM [facility] LIPASE <td>LIPASE LEVEL</td><td>STA T</td><td>01/14/2021 12:33 PM EDT</td><td></td><td> </td> 01/14/2021 12:33:00 PM [facility] HEMOGLOBIN GLYCOSYLATED A1C <td>HEMOGLOBIN A1C</td><td>Routine</td><td>01/14/2021 12:33 PM EDT</td><td></td><td> </td> 01/14/2021 12:33:00 PM [facility] COMPREHENSIVE METABOLIC PANEL <td>COMPREHENSIVE METABO LIC PANEL</td><td>STAT</td><td>01/14/2021 12:33 PM EDT</td><td></td><td> </td> 01/14/2021 12:33:00 PM [facility] EKG 12 LEAD (UNSOLICITED COMPUTER ORDER) <td>EKG 12 LE AD (UNSOLICITED COMPUTER ORDER)</td><td>Routine</td><td>01/14/2021 12:09 PM EDT</td><td></td><td></td> 01/14/2021 12:09:21 PM [facility] EKG 12-LEAD - CMAXX REPORT <td>EKG 12-LEAD - CMAXX REPORT</td><td></td><td>01/14/2021 12:09 PM EDT</td><td></td><td></td> 01/14/2021 12:09:21 PM [facility] EKG 12-LEAD - CMAXX REPORT <td>EKG 12-LEAD - CMAXX REPORT</td><td></td><td>01/14/2021 12:09 PM EDT</td><td></td><td></td> 01/14/2021 12:09:21 PM [facility] EKG 12-LEAD <td>EKG 12-LEAD</td><td>STAT </td><td>01/14/2021 12:09 PM EDT</td><td></td><td> </td> 01/14/2021 12:09:21 PM [facility] EKG 12-LEAD - CMAXX REPORT <td>EKG 12-LEAD - CMAXX REPORT</td><td></td><td>01/14/2021 12:09 PM EDT</td><td></td><td></td> 01/14/2021 12:09:00 PM [facility] US SOFT TISSUE HEAD & NECK REAL TIME IMGE [facility] US EXAM OF HEAD AND NECK 01/10/2021 12:00:00 AM [facility] PARING/CUTTING BENIGN HYPERKERATOTIC LESION 2-4 2020 12:00:00 AM EDT [facility] ([facility] DEBRIDEMENT NAIL ANY METHOD 6/> 01/02/2021 12:00:00 AM EDT [facility] ([facility] Av Fistula Artery-Vein 12/15/2020 12:00:00 AM EDT [facility] ([facility], ) ECG ROUTINE ECG W/LEAST 12 LDS W/I&R 12/04/2020 12:00: 00 AM EDT [facility] ([facility] MD) ECHO TTHRC R-T 2D W/WOM-MODE COMPL SPEC&COLR DOP 12/04 12:00:00 AM EDT [facility] ([facility] MD) OFFICE OUTPATIENT VISIT 25 MINUTES 12/04/2020 12:00:00 AM EDT [facility] ([facility] MD) OFFICE OUTPATIENT VISIT 15 MINUTES 11/09/2020 12:00:00 AM EST [facility] ([facility], ) PARING/CUTTING BENIGN HYPERKERATOTIC LESION 1 10/27/19 12:00:00 AM EST [facility] DEBRIDEMENT NAIL ANY METHOD 6/> 10/27/2020 12:00:00 AM EST [facility] ([facility] ECG ROUTINE ECG W/LEAST 12 LDS W/I&R 10/05/2020 12:00: 00 AM EST [facility] ([facility] MD) COLLECTION VENOUS BLOOD VENIPUNCTURE ROUTINE VENIPUNCTURE 12:00:00 AM [facility] HEMOGLOBIN GLYCOSYLATED A1C GLYCOSYLATED HEMOGLOBIN TEST 12:00:00 AM [facility] ALBUMIN URINE MICROALBUMIN QUANTIATIVE UR ALBUMIN QUANTITATI VE 09/20/2020 12:00:00 AM [facility] CREATININE OTHER SOURCE ASSAY OF URINE CREATININE 09/20/2020 12:00: 00 AM [facility] BASIC METABOLIC PANEL CALCIUM TOTAL METABOLIC PANEL TOTAL CA 09/20/2020 12:00:00 AM [facility] Amputation Toe MP JT 09/10/2020 12:00:00 AM EST [facility] ([facility] ECG ROUTINE ECG W/LEAST 12 LDS W/I&R 08/03/2020 12:00: 00 AM EST [facility] ([facility]) Amputation Toe MP JT 07/21/2020 12:00:00 AM EST [facility] ([facility] Aortography Abdominal & Bilat Iliofemoral LWR Extremity Cath 06/30/2020 12:00:00 AM EDT [facility] ([facility], ) DEBRIDEMENT SUBCUTANEOUS TISSUE 20 SQ CM/< 06/30/2020 12:00:00 AM EDT [facility] ([facility] DEBRIDEMENT SUBCUTANEOUS TISSUE 20 SQ CM/< 06/23/2020 12:00:00 AM EDT [facility] SIMPLE REPAIR SCALP/NECK/AX/GENIT/TRUNK 2.5CM/< RPR S/N/AX/G EN/TRNK 2.5CM/< 05/30/2020 12:00:00 AM [facility] EMERGENCY DEPARTMENT VISIT LOW/MODER SEVERITY EMERGENCY DEPT VISIT 05/30/2020 12:00:00 AM [facility] Pare Hyperkeratotic Lesion, 2-4 05/22/2020 12:00:00 AM [facility] Trim Nondystrophic Nails 05/22/2020 12:00:00 AM EDT [facility] ([facility]) Debridement Nails Any Method 1-5 05/22/2020 12:00:00 A M EDT [facility] ([facility]) Results ID Date Data Source [id number] 03/21/2021 12:20:00 PM [facility] Name Value Range Interpretation Code Description Data Tyra rce(s) Supporting Document(s) Sodium 142 mmol/L 136-145 Normal (applies to non-numeric resul ts) [facility] Potassium 3.5-5.1 Normal (applies to non-numeric resul ts) [facility] Chloride 106 mmol/L 98-107 Normal (applies to non-numeric resul ts) [facility] Carbon Dioxide CO2 21-32 Normal (applies to non-numer ic results) [facility] Anion Gap 5.0-16.0 Normal (applies to non-numeric resul ts) [facility] BUN 69 mg/dL 7-[address] [facility] DR [address]ER read back critical information 03/21/21 1219 [email or web address] Creatinine,Serum 0.7-1.2 Above high normal [facility] GFR 24 mL/min >60 Below low normal [place] [facility] Glucose Level 188 mg/dL 60-99 Above high normal [facility] [place] Reference range is only applicable when patient is fasting Note the following drug interference: Sulfasalazine Sulfapyridine Can see falsely depressed Can see falsely elevated result with up to 17% results with up to 11% decrease in measurement increase in measurement Recommend patients be collected for this test prior to administration of either drug. Calcium 8.5-10.1 Normal (applies to non-numeric resul ts) [facility] ID Date Data Source [id number] 03/21/2021 11:08:00 AM EDT [facility] Name Value Range Interpretation Code Description Data Tyra rce(s) Supporting Document(s) Hemoglobin A1c Above high normal [facility] Reference Range Normal: < 5.7% Pr ediabetes: 5.7-6.4% Diabetes: > 6.5% Estimated Avg Glucose 183 mg/dL 126-240 Normal (applies to non-numeric results) [facility] ID Date Data Source [id number] 03/21/2021 09:01:00 AM EDT [facility] Name Value Range Interpretation Code Description Data Tyra rce(s) Supporting Document(s) White Blood Count 3.5-10.5 Normal (applies to non-numeri c results) [facility] Red Blood Count 3.90-5.00 Below low normal [facility] Hemoglobin 12.0-15.5 Below low normal [facility] Hematocrit 34.9-44.5 Below low normal [facility] Mean Corpuscular Volume 81.2-95.1 Normal (applies to non- numeric results) [facility] Mean Corpuscular Hgb 25.6-32.2 Normal (applies to non-num [place] results) [facility] Mean Corpuscular Hgb Conc 32.0-36.0 Normal (applies to no n-numeric results) [facility] Red Cell Distribution Width 11.9-15.5 Normal (appli es to non-numeric results) [facility] Platelet Count 172 x10 3/uL 150-450 Normal (applies to non-numeric results) [facility] Mean Platelet Volume 9.4-12.4 Normal (applies to non-num [place] results) [facility] Neutrophils% (Auto) 31.0-71.0 Normal (applies to non-nume yun results) [facility] Lymphocytes% (Auto) 20.0-55.0 Normal (applies to non-nume yun results) [facility] Monocytes% (Auto) 4.0-12.0 Normal (applies to non-numeri c results) [facility] Eosinophils% (Auto) 1.0-8.0 Normal (applies to non-nume yun results) [facility] Basophils% (Auto) 0.0-2.0 Normal (applies to non-numeri c results) [facility] Immature Granulocytes% (Auto) 0.0-2.0 Normal (juanita lies to non-numeric results) [facility] Neutrophils# (Auto) 1.50-6.20 Normal (applies to non-nume yun results) [facility] Lymphocytes# (Auto) 1.20-4.00 Normal (applies to non-nume yun results) [facility] Monocytes# (Auto) 0.00-0.90 Normal (applies to non-numeri c results) [facility] Eosinophils# (Auto) 0.00-0.50 Normal (applies to non-nume yun results) [facility] Basophils# (Auto) 0.00-0.20 Normal (applies to non-numeri c results) [facility] Immature Granulocytes# (Auto) 0.00-7.00 No rmal (applies to non-numeric results) [facility] ID Date Data Source [id number] 02/14/2021 02:42:00 PM EDT [facility] Name Value Range Interpretation Code Description Data Tyra rce(s) Supporting Document(s) Microscopic observation [Identifier] in Unspecified specimen by Non- gynecological cytology method Laboratory test result [facility] ([facility]) SPECIMEN: FNA Left thyroid Specimen received in Cytolyt (clear) SPECIMEN ADEQUACY: Satisfactory for evaluation CATEGORIZATION: Benign DESCRIPTIONS: Groups of follicular cells exhibitng hurthle cell changes noted. The background consists of scattered lymphocytes and rare macrophages. COMMENTS: 02/15/2021 - 909 Signed MARIE RIOS(ASCP) 02/15/2021 0911 (Prelim) Signed DORIAN TAI MD 02/15/2021 1053 ID Date Data Source [id number] 02/14/2021 02:41:00 PM EDT [facility] ([facility]) Name Value Range Interpretation Code Description Data Tyra rce(s) Supporting Document(s) Microscopic observation [Identifier] in Unspecified specimen by Non- gynecological cytology method Laboratory test result [facility] ([facility] ) SPECIMEN: FNA Right thyroid Specimen received in Cytolyt (clear) SPECIMEN ADEQUACY: Satisfactory for evaluation CATEGORIZATION: Benign DESCRIPTIONS: Few scattered groups of follicular cells noted in a background of scattered lymphocytes and debris. COMMENTS: 02/15/2021 - 918 Signed MARIE RIOS(ASCP) 02/15/2021 09 (Prelim) Signed DORIAN TAI MD 02/15/2021 1053 ID Date Data Source [id number] 02/13/2021 12:07:25 PM EDT [facility] NT INFORMATIONPatient MRN Name Date of Age Gend*PT [id number] Oxana Clancy 1950 70 years F IPPT Location Admission Date/Time Visit ID Attending [id number] 02/07/21 1503 --- --- EPI ID CSN Admitting Provider [id number] ---Attestation signed by Jo Molina MD at 02/13/2021 12:07 PMSignature: LEA Bensonate: February 13, 2021Time: 12:07 PM --Cardiology Discharge SummaryPatient Name: Oxana Clancy of : 1950 Age 70 yearsPrimary Physician: ANDRE STREETER DO PCP Ltuibeeji Date: 02/07/2021 Discharge Date: 02/11/2021he will be discharged from [facility] to [facility] Diagnoses:Principal Problem: Non-ST elevation (NSTEMI) myocardial [...] needed for painTrelegy Ellipta 100-62.5-25 MCGGeneric drug: Awxfvrixgqg-Qpknhmaqc-Nxftzm Inhale 1 puff dailyXarelto 15 MG TabsGeneric drug: rivaroxabanNotes to patient: Resume Friday02/14/21 Take 15 mg by mouth dailySTOP taking these medicationsmetolazone 2.5 MG tabletCommonly known as: ZAROXOLYNWhere to Get Your MedicationsThese medications were sent to [facility] [address] [place] [address] [id number] [place] [facility] [address] amLODIPine 5 MG tablet aspirin 81 MG EC tablet carvedilol 12.5 MG tablet clopidogrel 75 MG tablet nitroglycerin 0.4 MG SL tabletFollow Up Instructions:Dr. Minor and Dr. [facility]an[facility] Course:This is a 70-year-old female with a PMH including PAD s/p angioplasty, aorticstenosis s/p bioprosthetic #23 Magna AVR, COPD O2 dependent, PATRICK,hyperlipidemia, hypertension, DM 2, PAF,CKD stage III and CAD status post CABGx2 (ABAD to the LAD and vein graft of the ABAD to the PDA) and ALEX to the CX.She presented to [facility]. She ruled in for a [...] 107* 117*Results from last 7 daysLab Units [id number] I ng/mL 15.00*Lab ResultsComponent Value Date PROBNP 10,370 (H) 02/07/2021 PROBNP 6,728 (H) 03/23/2020 PROBNP 5,524 06/03/2019Results Procedure Component Value Units Date/Time COVID/FLU AB/RSV PCR [[id number]] Collected: 02/07/21 2240 Order Status: Completed Specimen: Swab from Nasopharyngeal Updated: SPECIMEN DESCRIPTION NASOPHARYNGEAL Influenza A NEGATIVE Influenza B NEGATIVE RSV NEGATIVE Comment SEE NOTES Comment: SEE NOTE:THE U.S. FDA HAS MADE THIS TEST AVAILABLEUNDER AN EMERGENCY USE AUTHORIZATION(EUA) FOR THE DETECTION AND/OR DIAGNOSISOF THE VIRUS THAT CAUSES COVID-19.PERFORMED AT [address] [place] [id number] COVID19 RESULT NOT DETECTED Comment: THIS ASSAY AMPLIFIES AND DETECTSTHE TARGET RNA USING REAL-TIME PCR.TESTING PERFORMED ON [employer] GENEXPERTNEGATIVE 2019_NCOV RT-PCR RESULTS DONOT PRECLUDE 2019_NCOV [...] rce(s) Supporting Document(s) ID Date Data Source [id number] 02/11/2021 01:56:49 PM EDT [facility] Name Value Range Interpretation Code Description Data Tyra rce(s) Supporting Document(s) POC NOVA GLU 245 mg/dL (70-99) H [facility] [place] [facility] ID Date Data Source [id number] 02/11/2021 09:16:40 AM EDT [facility] Name Value Range Interpretation Code Description Data Tyra rce(s) Supporting Document(s) POC NOVA GLU 197 mg/dL (70-99) H [facility] [place] [facility] ID Date Data Source [id number] 02/11/2021 07:37:34 AM EDT [facility] Name Value Range Interpretation Code Description Data Tyra rce(s) Supporting Document(s) SODIUM 142 mmol/L (136-145) [facility] POTASSIUM 3.9 mmol/L (3.6-5.2) [facility] CHLORIDE 107 mmol/L (100-108) [facility] CO2 26 mmol/L (22-31) [facility] ANION GAP 9 mmol/L (7-16) [facility] UREA NITROGEN 52 mg/dL (7-24) H [facility] CREATININE 2.43 mg/dL (0.60-1.00) H [facility] BUN/CREAT RATIO 21.4 RATIO (10.0-20.0) H [facility] GLUCOSE 190 mg/dL (70-99) H [facility] CALCIUM 8.9 mg/dL (8.4-10.2) [facility] GFR 20 ml/min/1.73m2 (>59) L [facility] GFR ([facility] AM) 24 ml/min/1.73m2 (>59) L [facility] GFR INTERPRETATION [facility] --NORMAL KIDNEY FUNCTION OR MILD DISEASE - GFR >OR= 60CHRONIC KIDNEY DISEASE - GFR 15 - 59RENAL FAILURE - GFR <15 Est. GFR calculation based on the MDRDstudy equation, which assumes a steadystate for creatinine. Est. GFR should notbe used for medication dosing. ID Date Data Source [id number] 02/11/2021 07:20:37 AM EDT [facility] Name Value Range Interpretation Code Description Data Tyra rce(s) Supporting Document(s) WBC 9.2 10*3/uL (4.1-11.0) [facility] RBC 3.56 10*6/uL (4.00-5.40) L [facility] HGB 10.5 g/dL (12.0-16.0) L [facility] HCT 30.1 % (36.0-47.0) L [facility] PATIENT TRANSFUSED MCV 84.6 fL (80.0-95.0) [facility] MCH 29.6 pg (27.0-32.0) [facility] MCHC 35.0 g/dL (32.0-36.0) [facility] RDW 15.4 % (10.5-14.5) H [facility] PLT 104 10*3/uL (150-450) L [facility] MPV 8.5 fL (7.1-10.7) [facility] ID Date Data Source [id number] 02/10/2021 09:26:26 PM EDT [facility] Name Value Range Interpretation Code Description Data Tyra rce(s) Supporting Document(s) POC NOVA GLU 238 mg/dL (70-99) H [facility] ID Date Data Source [id number] 02/10/2021 07:00:49 PM EDT [facility] Name Value Range Interpretation Code Description Data Tyra rce(s) Supporting Document(s) POC NOVA GLU 226 mg/dL (70-99) H [facility] [place] [facility] ID Date Data Source [id number] 02/11/2021 01:00:46 AM EDT [facility] SPEC EXP DATE 02/13/2021ATI ENT ABO/Rh A POSITIVEANTIBODY SCREEN NEGATIVETESTING SITE PERFORMED AT [address] [place] [address] [facility] [id number] BANK COMMENT BLOOD TYPE CONFIRMED.UNIT NUMBER [id number] COMPONENT TYPE LEUKOPOOR RED CELLSUNIT DIVISION 00STATUS OF UNIT TRANSFUSEDTRANSFUSION STATUS OK TO TRANSFUSECROSSMATCH RESULT COMPATIBLEUNIT NUMBER [id number] COMPONENT TYPE LEUKOPOOR RED CELLSUNIT DIVISION 00STATUS OF UNIT TRANS FUSEDTRANSFUSION STATUS OK TO TRANSFUSECROSSMATCH RESULT COMPATIBLE Name Value Range Interpretation Code Description Data Tyra rce(s) Supporting Document(s) TYPE AND SCREEN [facility] ID Date Data Source [id number] 02/10/2021 02:05:14 PM EDT [facility] Name Value Range Interpretation Code Description Data Tyra rce(s) Supporting Document(s) POC NOVA GLU 151 mg/dL (70-99) H [facility] [place] [facility] ID Date Data Source [id number] 02/10/2021 04:29:57 PM EDT [facility] Name Value Range Interpretation Code Description Data Tyra rce(s) Supporting Document(s) STOOL OCCULT BLOOD (NEG) [facility] ID Date Data Source [id number] 02/10/2021 11:08:08 AM EDT [address] [address] Name: OXANA COLBYYELENADOB: 1950Sex: FOrdering Provider: JANET Mcginnis Prov: JANET DURANTRefdimitry Provider: Procedure Performed: US COLOR DOPPLER LOWER EXTREMITY ARTERIES LIMITED RIGHTExam Date: 02/10/2021 11:01MRN: [id number] Number: [id number] Class: InpatientAccount #: [id number] for Exam: right femoral cath site R/O pseudoaneurysm.Technique: Real time sonographic images were obtained.Comparison: NoneFindings: No pseudoaneurysm or hematoma seen in area of concern in the right groin. Patent vasculature.IMPRESSION: No pseudoaneurysm or hematoma in right groin.Report electronically signed by: Heavenly Flowers On 02/10/2021 11:08 AMWorkstation ID: [id number] Name Value Range Interpretation Code Description Data Tyra rce(s) Supporting Document(s) ID Date Data Source [id number] 02/12/2021 09:12:09 AM EDT [facility] Name Value Range Interpretation Code Description Data Tyra rce(s) Supporting Document(s) IRON,TOTAL @ 48 ug/dL (35-150) [facility] UIBC @ 239 ug/dL (130-375) [facility] TIBC @ 287 ug/dL (250-450) [facility] % SATURATION 17 % (12-50) [facility] ID Date Data Source [id number] 02/10/2021 12:15:31 PM EDT [facility] Name Value Range Interpretation Code Description Data Tyra rce(s) Supporting Document(s) WBC 8.3 10*3/uL (4.1-11.0) [facility] RBC 2.49 10*6/uL (4.00-5.40) L [facility] HGB 7.2 g/dL (12.0-16.0) L [facility] HCT 20.7 % (36.0-47.0) L [facility] MCV 83.2 fL (80.0-95.0) [facility] MCH 29.0 pg (27.0-32.0) [facility] MCHC 34.9 g/dL (32.0-36.0) [facility] RDW 15.3 % (10.5-14.5) H [facility] PLT 107 10*3/uL (150-450) L [facility] MPV 9.1 fL (7.1-10.7) [facility] ID Date Data Source [id number] 02/10/2021 12:08:13 PM EDT [facility] Name Value Range Interpretation Code Description Data Tyra rce(s) Supporting Document(s) SODIUM 141 mmol/L (136-145) [facility] POTASSIUM 4.0 mmol/L (3.6-5.2) [facility] CHLORIDE 106 mmol/L (100-108) [facility] CO2 29 mmol/L (22-31) [facility] ANION GAP 6 mmol/L (7-16) L [facility] UREA NITROGEN 63 mg/dL (7-24) H [facility] CREATININE 2.61 mg/dL (0.60-1.00) H [facility] BUN/CREAT RATIO 24.1 RATIO (10.0-20.0) H [facility] GLUCOSE 152 mg/dL (70-99) H [facility] CALCIUM 8.8 mg/dL (8.4-10.2) [facility] GFR 18 ml/min/1.73m2 (>59) L [facility] GFR ( AMER) 22 ml/min/1.73m2 (>59) L [facility] GFR INTERPRETATION [facility] --NORMAL KIDNEY FUNCTION OR MILD DISEASE - GFR >OR= 60CHRONIC KIDNEY DISEASE - GFR 15 - 59RENAL FAILURE - GFR <15 Est. GFR calculation based on the MDRDstudy equation, which assumes a steadystate for creatinine. Est. GFR should notbe used for medication dosing. ID Date Data Source [id number] 02/10/2021 09:38:07 AM EDT [facility] Name Value Range Interpretation Code Description Data Tyra rce(s) Supporting Document(s) POC NOVA GLU 159 mg/dL (70-99) H [facility] ID Date Data Source [id number] 02/09/2021 10:20:23 PM EDT [facility] Name Value Range Interpretation Code Description Data Tyra rce(s) Supporting Document(s) POC NOVA GLU 148 mg/dL (70-99) H [facility] ID Date Data Source [id number] 02/09/2021 07:13:20 PM EDT [facility] Name Value Range Interpretation Code Description Data Tyra rce(s) Supporting Document(s) POC NOVA GLU 239 mg/dL (70-99) H [facility] ID Date Data Source [id number] 02/09/2021 03:41:48 PM EDT [facility] Name Value Range Interpretation Code Description Data Tyra rce(s) Supporting Document(s) POC NOVA GLU 215 mg/dL (70-99) H [facility] ID Date Data Source [id number] 02/09/2021 09:12:36 AM EDT [facility] Name Value Range Interpretation Code Description Data Tyra rce(s) Supporting Document(s) POC NOVA GLU 130 mg/dL (70-99) H [facility] ID Date Data Source [id number] 02/09/2021 09:48:02 AM EDT [facility] Name Value Range Interpretation Code Description Data Tyra rce(s) Supporting Document(s) CKMB 3.4 ng/mL (0.0-5.0) [facility] CKMB RELATIVE INDEX 3.1 {index_val} (0.0-4.0) [facility] ID Date Data Source [id number] 02/09/2021 09:01:34 AM EDT [facility] Name Value Range Interpretation Code Description Data Tyra rce(s) Supporting Document(s) CK 111 U/L (26-192) [facility] ID Date Data Source [id number] 02/09/2021 09:01:34 AM EDT [facility] Name Value Range Interpretation Code Description Data Tyra rce(s) Supporting Document(s) SODIUM 143 mmol/L (136-145) [facility] POTASSIUM 3.4 mmol/L (3.6-5.2) L [facility] CHLORIDE 107 mmol/L (100-108) [facility] CO2 27 mmol/L (22-31) [facility] ANION GAP 9 mmol/L (7-16) [facility] UREA NITROGEN 78 mg/dL (7-24) HH [facility] CONSISTENT WITH PREVIOUS RESULTS CREATININE 3.22 mg/dL (0.60-1.00) H [facility] BUN/CREAT RATIO 24.2 RATIO (10.0-20.0) H [facility] GLUCOSE 131 mg/dL (70-99) H [facility] CALCIUM 8.5 mg/dL (8.4-10.2) [facility] GFR 14 ml/min/1.73m2 (>59) L [facility] GFR ( AMER) 17 ml/min/1.73m2 (>59) L [facility] GFR INTERPRETATION [facility] --NORMAL KIDNEY FUNCTION OR MILD DISEASE - GFR >OR= 60CHRONIC KIDNEY DISEASE - GFR 15 - 59RENAL FAILURE - GFR <15 Est. GFR calculation based on the MDRDstudy equation, which assumes a steadystate for creatinine. Est. GFR should notbe used for medication dosing. ID Date Data Source [id number] 02/09/2021 08:15:59 AM EDT [facility] Name Value Range Interpretation Code Description Data Tyra rce(s) Supporting Document(s) WBC 8.3 10*3/uL (4.1-11.0) [facility] RBC 2.83 10*6/uL (4.00-5.40) L [facility] HGB 8.1 g/dL (12.0-16.0) L [facility] HCT 23.6 % (36.0-47.0) L [facility] MCV 83.6 fL (80.0-95.0) [facility] MCH 28.6 pg (27.0-32.0) [facility] MCHC 34.3 g/dL (32.0-36.0) [facility] RDW 15.5 % (10.5-14.5) H [facility] PLT 117 10*3/uL (150-450) L [facility] MPV 8.8 fL (7.1-10.7) [facility] ID Date Data Source [id number] 02/09/2021 06:47:28 AM EDT [facility] Name Value Range Interpretation Code Description Data Tyra rce(s) Supporting Document(s) EKG [facility] DOYFNh4kXqWGXbIhu8ToQuLmJELuEK6exzg7V5W1qTUvU1FirWWwg4bjK2QrP3YdRCNpNZFVBE6DfROy jb2 [file] B1eKR60FlmIkG8R5/7j5Q7E7+51lh2MPP8/fd40B/++/PK/avCL+B7/MblxIdXlKvAG/hNO+3gd+A3 5Xa0Rmpr8tp/wuMd7un4j8NFui2LxV84211+W7l/tRK/wI/82k4H2MXiQlWp5K3/dUlAe6d0zw0k72Yk gO//87w7X1m79sc4c1tcqC/qsd3ldHz5hj40k8TlAX 6A7/26lfZVyTeUi/YuhxwHfoN/A4/6SiN72xoTV6lnbZ/uC5t1VTsX0RN2K6vlP+GH2eCwEa/3Iv7yFM xfLdhXS/D6Ha8XqC/YV0v6/7u0/78c5exGjy+nfVVptFcn+USnmpuWyDccc3zeipr13CXFtYZG8w38or qN/fkkq0vGBTdn03Lvi/f1xKbPt6W+St0avm/aV5UX 6DB191FnZ280wS5en5UmoFSzaxhTJGmOY8w9Vdygv6v/wHgd06Anoc6V+nnEUbooy4CwcQ+bIOicD2IU /Y3k6fX+4c9cx0h/Tr6cl2yIwUt01eav85ONZ+//Nayk0HyqVxDe6buhY990z3fof/gv0+JEWF2JVUIn Ox95HYnk61u7KTdnwo4794WVl/oHgJsDWYAhP5aR6H qvu66Ik+G4+3i9vXH385Xd/0e3TcBY+YMdb57v+yu5Re3E++cl1f2K8f58Rt+2N/Glt8yYw7iDi1ZBl9 nh582LK/1e2lv/p/1HK+2r/WTpQ46Ne+9703q/cRt0ujV1uS/4lKzoR3S6e5wefp/JA6EZcsjGM1Dt+H t9JJ+U9206ZLziIz1Q7uD+Q36vj+Tr/jwvK9niJ7g/ BvAD/DE5mFj3+twD8xzI/AJ+ffqXtK++tYb2CKno/1Rgz8Xc/sRJ8W9g/h+X98xj/dMe3eXzmazyUvov O1jjB1eiLZv7AVSqjQ67nsVd7/ubT5P/116J+YYk0qgS+gK8nuEgeK/+Vt+R/dH7UefMrzhKx0NfNuc4 8omb636a+iOTv6Q56zkDrwqiw3lpq/mNKoB3m2/SP3 1NsAyAq5k2G9rh552tio8yA63/bFzS++OJcn/6mzjmFUi7xypOV/T+/lWW6V/9K2/4jyz5f+1oyc4Yi/ PK/cZO54xBzb+1V7/k/0BSV78vR0tk/V9c7iMW1qypYX/ejYsgk6G8eF+g8C9A7Q1jI3Kar/D0w61010 /DyfoeOyoVJ7sg7B0WSFsuCUwr/RxJ+5tl5Tb94Xd2 cn3MbA7tyY+OuqSY5n3zrrpQ/cXQaR3Y3BC/xk6A2Tt7JVrq7QeD+kpyB4E7Jsx2noL+CjHA5v001nE3 FZwTiZavkiuzOlGo5gNn6RZGpYFmYweEf+9vSNpXxbOAX+NI9ZD3RofHvxP/Ae/Fd77k7wzaXrOF6zZF vhLv/RzxD/rbiyCEy36LvvPC6smx6uL+9neLK/gVeO v6e+9loWy8Y2m1++Ab62i9n4cm7bbDw/70pugWLpf73UHF9IchcQk/umnwL+DXsw8l/YM5t++8J2Uq2F rsT4F/UNI/mPPebn+ZbAf/Hr10l2z+wLc/FY49fcG8feiE3A+N5G8IunAu/lA3U1XC0P3/enNNXo2FTX U+2pv/mvQPSuId+PT/ZnpDzgb+AN/o1lTAcd933/bq 1+1V+Ae1/MJw57ZvlSr6whM1bZv4+nmdsyCYu0Ph0Xvf7x66fm/r1/t1+vX+yI69E7kpU2Ym+1eK/SvF /pWO3q/BYxBe92CUKt/t2ONyLe4TD+/m0Ki7JVaeO6H7/riJnop3SPn4/Hq9xG9Etpz+formal waiter/waitress+OjrafdbZ/ QXH+Btq4LtS18/3/zhugoAPB7rY/Jr9Vk7WVjcuxcg l/Rkz03zwn/7bdTxbOWL2+jfps8B/gT/PH/tVLA5/2xpfpbu/s41Qwvq3mU7oSqPbnH/evKq+Cv+0NXQ Z+A78D7+Qaix3L9foAZQb215yCNcfp5D2upIT/LQTVj9S/lP7ZH4F9+GbC3Fm5eblsbUR/S9sbCv+gSu /nqLQ/EuE6xqJ+QS3/1Ag204o1utB5Wud/fxJ4ydQ/ utp8EbAjFsP6SF2KH+Cx9mI7iX7/otd7Jjnx4Q/wvd+uhdtM4d5DX8IV3DJk0VY+12nP4pLz3tgTekfq otb+HrGVHTBxrDa7sgZ+UtvAH/E6apOtqcN0V+dMn281G+tfL7UGG+Fito+ja5lPb4IC8IJ1FL+DRXnfI x/fF/pU6vi/8gwr/mM14136/3V24HlRk6O57iET/qB v9eaM/b7QX/kFN/6BUusfRRn/pWyu1A6ibJ+re4O/6Df95WuId/hQ97V/Qg/K4BY6Wye2p/6+eCfwCfv O6kHZqK2ezhaf9SU/CCIrEM7y8WQQkwRjyPTptjm2ji/wp8ff70pe5b/Z1e+3r/Co9WbIH+MF7BH3Yk+ ARoZnol0Rznr/Ab+N61Eeh8lj7C4xsaL+L6g4LwnZ6 amMx8O5H/Av8Av7+vjYU+EipZQ0j+G2A3SdTjXVRba8ql+3xZue9lc50nT+32et9m+0/stn+BZvtXzD4 F785t8q7qQ/gF+NM1bcIX+ZK890X+Q5+tHeivfMAj/863M59IE/6vk0dP0813f6PEFji1B9EEt1S/kFb zoRA4lQ4ke0gn4CufO/3su7y42os+dlW/04Yke03zS +3On/kpp3jIr3v3upql/mgdIH0QJDfH7h1+tdEgFfw5/t8oHqss54w0u1BA7s0773f8CuE96wU+8q099 lY705hFh26dhj+QfV5b1kwDfSvFM7PcsAmmLrGVho2jWB6du9tMM/2VIeig5aLnLV+Nkc83hlK0KSwQZ y20ywjx8Eyi10o8/622QB+AN/+JAY2f3rviAVl3DCo a70+vapbLzAwbFA1WreQ6wwgzBNu1cqhoVIk1m+J8FsOeT5LKFIyc9/sKQWF9I/y9i+YY/zi/JXh/JU5 5ivH/6dsBzrtU8p99MK+Qz39/WfN8T/yDTz+B531ahdkbNrv5c5/aTh/GlpQb4sz8NTiaXE5KdoBtU9J iJ00dnkQYmNjS+32/9pu/5Ht9h/L3qIxwY8d+0z5By i0o2ifqyN/ZFoKfP5q0ob6UkpJHFrthSoCXMgqlPi56xbV5c91JszTpx3muG8uJL/N4vm1N++tWNhXeW 3yqhDThJX2MqemjYV/3k9J/z50x8yr3Iggfihwf9u15gcGgSa+tBomMchU4eUX/9cB9MHhE/nvJ1UkuF O536LpeZ/Ee90bOCV72AeR+vGwr/Tqlcz2lmOZJjkY LYA70fu+KA/7RzaId42GHIp845/7f/0h5t87y/++j46b6xbo7e/v1znOt/vo8/cg4mURqB6TCya66k05 HxP8vV/no88/+xDg+zy/E7O6Li4Y/D7/2EM0G431qRqY3+07IvgQuz4/4iT4G063/RSffR/A71b22Wri 9/1qQ6O6zi6DjH+i8bwyOwmA3fR31C5nLhWL6nj5Bm J5f7rwHe+3z0q3/NC2VrF1d6pRqwJ+622o99c1xb48fs2Pmp6cZ82rEoGgfStjuA7I2E0v66X9U5/Hce n9Z5e+j+QZ5fxRVq7K+7cWlCI4OavctG/g+wq+r+D7ikG+Qb5/SEP+Bn/vt7v0/QUP+2dW6feLGZormI vhYV/lXQbXvr/g2v4FD/vf7mW0T0+0N+m2aE6vZeVE 9t70D2+ImmcDgjOjF161tTe1FHuC5et1wq97+QY9hHwwTs/26dFCQt7/7KuLj/buSmunF/IAsYJ4cSlZ ZmPnhTs5XlMn+A3+aG+24uMtG0x3b2loV3v577th8/v39o9kd/P+PS76CP5T+AU8vq/3/SPP+4Iy3y4j cX/Tsu7qmneZ1wjoIpGF5X0C++bOjuJ719o92amnEa G0r24a+Al8+fncwI6gzi/z3im/z2d4jtz8rv+k796b9Z4AD/C9f+V7Q84G/gDf60E/7e/20/akY//KsX /b5W4m7S142u/8LOAFeAG+7Wc/bT/7MeANeAfegd+QvyH/gL/t5/21/by/Xi/sr9f7++v9nP21/by/tp 839q/4z9DM3Va+5P4U+W8g049Xs5U07S39Y/gN/gN8 709u+Ac3/IMb/zH2yj46sx+7643rlEG3q7NAGKIlts+/R++376GQY+C31//66BcWpoaqU7F04Y/w9/2y Pfv+gh7e4O5f09IcoF02/C2we0b3Oi9XG3RB1FF/b77Av9HavBuxw23/8X2fbs++T3yiNl36/2r7ea++ K6yEcvpd3JUN80573bsnKcYn5MlAl/t55/8Q6IuBAa Wz0Gb3eeWR1zEZt1WuNubkj/fWTdl26G+6aeAn+CfwC/lG8uH1BK0oYtDeHJAO/D299slij0F7vi+b+1 fJn/nAB53aReulvJ+ivdrnVbaivYr+vD9G8uU5h4omI6vdi/7BwtuHNORj/KZ/sPAb/FgpLosj2vts+r 3CNr7j7Dq5bR0s4/a2mR4Nl5kgg55o62c6NsJRa+Af 6Bvabgj7R971u7re2Rp2ejpKIDv54/o+7Da01/c68ll19/u+1fa+Q1cn9aDK/nE22gc5PE/Ng62hkJ/2 4vzVdnxfd+T77YrpI+Lget314mgIV4zCpzi79zn8/u/nzV3Tu2Eq0W9lm/t+7ox4fr3S2a4/5kb64G0b bm+0d6O9G/+zww841G2D17hT4Lev3k/utK/pUC0703 [file] Kswt8d5421VH54AWhdX51m9B/sD8Mz7DH+Py1c4CV4 z7zhn2AuhloQOdgpNXn2fB1M08nqc9t0y/hWv7aji2dsVeJPd00of0fd/N53fYie/zjDeSb+Plh8xbnB de2/euva/KfTdfo+61g130L46nzfk//msJ/H0wV//85kGWeccb+Xxfe+/37Gde//jbC77y+TOemWV+4x 2/t+Bc/3d4t0AJ4dcqf4ybjm3QmzoFqc8hZJQav205 6l7PNnaNy9rawsxVgwoSum6oqpeYe+WUCQxfK43pMCjtregW/McUqvhOMRpch1h2Gcy+fbDD/pwD3+fa /mzOg92c89L4P0/p4P0uBNwam+5ADQbji2/t2sLg1dFqej51mjFz6M3+j0pe/+775HN/thp8UKPit9kb PKr3+Xnhm89B9Zml/KpSywdnVnCW3c4/aN7rHe+Y2e v8oBNmlbcouJmQuZ4+nPmsK6/tu/Yzn3M++ByDxM8lh7J3xvz/767gn/afr7ZFd3+O99cn+VF4ePrTS+ Cf+gun5A088rgPD41rhLmP5cz86rskXlUC7Yz7/9VV185bDGxFyjz1N+8TPeyU5r2x9fJ7S8HnbRnKA5 ZK0FbDP97cn2Ix1lqF8r4CzDoGD/DxfDfGuzHePcE3 4Z07hXyuvYuPF+61gMP2gGtfIi/5selJD2Oa4dCAcFm5nG+gyMfXp+ar0iqgH3O/UX6Cb+Ab+Tc7iux4 +jIaL2yX+Vr30tnl7b6R0268AfEUfGWrt6mQDbJIk+ezygB/jkrB65L+w1133Rcl2+798ZDl5cW9bRL0 AH+j/P6+s6r9/zH6r1vuHMCpC44pO0ez602ErD+KP7 5kgeI2twp7/XMg27c4Yu/vugq6Nz37bCMx9969cEX+2ip2Sd6uqb+8Bv/Ra6HR4ph5odam0ss6DU9U/5 53/PNuJ+U1yg/vc9rYmOvYv6Jnw53+odj87cVpn/N7A50yfbq+vqHYnQ3jTpVJnnj+7vDz7p57BcD3to UK80j6I8Gp++ip4aUS4/03gVb3xxpmjG2ygiLC4cZ0 9wAl4jCtAs7ml137sTN+XuC/818nVBHD27J0c+yr8vod+2zi16S1f3pj5Octz+yryxfwpftj+fR859tH 5QfKz8/eO+DqI232ylsb0bDjvlrxp5MZV5hfX4fs9Zy+co0hn7560r/kkel3I3lU72i1Xe/Hrk4165d3 /Tn5azMnrF/z+I0re5smS2Q2vp/Isiz45waS4Z0g++ ryHfwzXk1+yc077p/Vnsh2oqijgJ2y89/j/DVMB2JWuj+xry5/qSkUg5Mb0AcxCR+zAS9caXgFWv9pC3 Cr0Hbpcg+qzLGvqsyxr+00hPlU6D000qHmMc624xAX9o/gT/HOdTAl2Mc3y447+Ke9rwDC1OpnNksZ62 sn62l7UYu+sa/qXse+vaWNngh0Esas5now/Se48m30 UH6i/ER5Ax/fu0Yk2Dzq95c95Sbk7x4xK9dS+s877qCeh/g6smtDiC4eFzMyhTaUM56JwzvOzBon/RNe 5MPvD5yo5++IcfmahMuxPO9le6L+j/fYYAe6Yb2ZbS/gb/B3t5/63cYMCEmgn5t6HBKFnilaoQGybvZM 5Y+4Omiy2Bcljo/9LLM+a5hksTO3AvblbC27+/93pH 9MuIrK5g1b3qLwhCthV8vsb21qiWEs7rWScDCAysnlm/upE/yJ+xr4GG/dA5WyaN+D7+AH+h/ozwZ/d/ mB8eb+KoY2NV5gc9yyfTd9ps2ZU/dT0uzbn80g3Q+nEhd48Mmp/6rKO/hZ29M1A8Q5nl2b7E1HlW3Z08 TznW0/z3r874xQU/uaxsixN9R/wxvOC0L1gR/gL5Rf 9laE7s8dCN6CNjr8aql11Ple252eu7C9rsnwim9gsXyWObkPx/V+7Al7+OdruMpy4yI/5blCbRDTc0aA e4hqLdL3Ogu/N427UZ0+Dydf7z7wuU8Zmrm0rlNd97F7qQ9C24hFao/0B+/vwnq1+ns0cv/fOji3bNd7 NFZ/f4fje+P3HoZ3os+/7/JI++q9D5f180nxyORfV/ jE7Jy0nkCH6tfjM8u0i8jx5Om6mWMcKU/7tcR3o1mrr7PHhur4ZwT+WZ8qleT5emU7GgR0N+tVYL3K/a n7rsM9inD+eEIQm6I31KXdpmWH8mtlByI+VtP02pPVdQ45ehhk787/fzj1tfz91l/eDYo7klvV+bwxnz e+Toza82l5vKB+b6zPG+xx5ee4guHq813m5g41+x7z 6fVqPg/4Lp2622O49g0rk/+qrgfKt/1lXbL9eVIK/K3f3vIYA3t//WXzcbQTKB/uk0Nvy0lDnHqd7IXd 1bF0op8AwQs1sbb708wWPjifeb/RTj/eJn70bqjpY/z9Zl97n5Iyi/eenrCD+u37VOl7z1DKBo0Q8+/6 2Fd+3vcTcvCzV+Rcv+ONvNexr/j3Qc5zXfSmTzMBS+ M0y7z+FPEs8/pTtNp//Sk/SzKvX7+Woo075oENCJY1rfc5gtn66/ClpGrPy3NS72Ii6z3h9qcmmomp4G uu4hqzSN/GkM6jF9nCK0pjCc860adf8+OXJ7lD0/r41lbI6ek1zAAw3/y9Hi8/23/okbf81PyH0/9y9i 6THQTGkR6k0+k7DUsm50Dl66AqBZm03Mav8q/z1dT/ sa/Pa1sxaPohd41yd41mfcdpwCV5uvyEs2Evkem5tm0q+qiShKBk0zsWO83b7+jzt93nP8o5P0Gi/8Kc 7V+W17RuQJ/QTu4/W15bX5/8D57B2og1wwFExpB06n4y4qro3UonVvvia14U/t9p7f+dNlF+gm8ob+Av 5Yi0biRxAoV0ZRZ+o53d/LSvsvzC+aur7m1Tlfhx7w QsK4UxZbq9CD1V++8xGqorG4Lt1hkBrA+zguxG3wH5B5S30NaK9T+Y8A/O9A/ea/AF/PanTG9/ykz/YM 7/9A8WH/M5/YNVt/2u0w4kKtfS5yx3avSj/AA/0B+MN/5IbY7Di/kHk9/+Radames/8Lm5a246Ifk8vdL+wV n+lkof1cA9fbICQrlTcjq+5nPg+xv4/qZ9da/Bx/c3 8P1N+yq/eZsc569gIYuxC8BP/q1xpgiv2Qq5b57bld79f/u7uXs/Z2L/amL/amL/jj27t3pU/febu9t+ nrl/qcf16y1Lk0b/jb18r976phn/Lwixv1VMEskkM6Dd64/Fbe2qfy6K+T/+BL/6Eunua6+D3/4Uy/2r ySnq7j2RM3+zfIB/xnu+O+cEf+2mzkL969wbb5VUoN ri1WuNOA/IObz/JGa97A72v3OXi8RT6g/X6U/D5x7DFmi7+9quH+Sc2T+b9Oca/ONPudd2/HAvwY4ELr Bvf4pJ+9NPHw4hhcHiwi6iuy3qqa3u/+eY3F2BLxzA2dnv/Uk0m2BX9i+6fAP/mDzu75LN/2A+l/QP5j PV9pdZ+gdzPqR/2Q58eQp/AJ2v1G7Vl/4snh8RpYOn N6OvEx7I5tyDuS+LhcrxXPjTr9vLhba/0M4C3/i1Vb3lqq/pHyx+oP3d7+nA+jpss3UL4I+66R/M8se+ bgtHO9LBSC91h+ZE+iEkWJhHj8R/wHe0j/Ee++q7Bh/kiFflQto9rX/dZ37siBmvBgevO4FXgP9pOtWM qwSn0L4hv6rB7oVRn/z2tECeAUubt3v0/8hW+48s/Y JKn0lFR2o8Iasec7I2D60f14fb7X+81+Ab+Dp3FqgfG8B5oBbsO/zG4DPx2D3Gbrk+juX+VV1Ll6/9q7 zWvm/qR41ci9B/yrB/Zdi/Mm9/tfaxKkP2bB4wi3ZBfX7rbDx705+q/Y3+IPc3w1ZO9Kb/zELAx/MNPN /UpFYwVBg2IecBm/oHq+5Cf9o/xXFhq4QQfC60o4p9 /69F+67q6ve99zE7972k/INW/sEsg+f1926gz7G9dfMn+AeobcRWfqk2Ycj5d4fx60Sq+Act96/quv1H vplQ40f7Lz815Szs0dZ/ZeX+VZXv/aj2JCfYdI/9zbKAnG7hby5xi93TnouDZ1r15g/wA+U3+Mao3v1m XZxvXzjfvnC+feF8+3m5n3gL05HL2rJcW/wYv9S68F 2jtjHzP7o9nPNcnE/3C1er6Wy/sMo/UIV1e6iIh+eb/yG46gnHnrW2yjitqx+56FE96XMvZoZ7pgA8rz B8oD+751X6B/B56JsDM7xSY7hfHuhikUtIeomF+APlMZ/JyJ5qlLh3s7vc95khr6DKN5ctp/aqwD9b8l qvRu1tjZjqx2m2+rakS43A02/dIhs5ovS6ztQEu0D/ xI0vk2P8pB/gL/AdfAc/wA/wN/tuWi6KCoy92MS8owD+0rxu/0El8w9zy//+sv7/XTbBx/F77f1kp/O1 DG6RK2H6Tvw/ON++yj+B5ar3uG+0c3FqRfmQQ+uHhjjnDF1X7sh4w8DqMFg2CoFL1L6P41Whh9UQ9V1N f/D+LqzPC+/van/oWu0/Oo59uwphblh7W2t5d4H7+3 +Xt/19Bmfy7W+qtgwAyDACsFA3pzNLvi/ujB73xj+V2ufrZiQ92xhpyP/ARckYbssqJj0Mr1N0CAKyOa arwHyOPh+0Za876BnT9qc3z1kx5ubC2kHY/l9YaV/NvD7v7/lfXse+Hplr7a0XbaqgJ//Ra7c/ZR37ah 8/gOcPq7UuY6KfO17LnFb2+FMi6x5/Omc5py8w4ua+ uGBGiVhPt5zMlfe7ycCdV19Z7vmkSyri13+KRWcgq3BybdQNttwyZcnot+M+3vJ+6Xr3ahVb+FPOv7+/ 9tULYp/XJz5ln+cjJfv5om1rs1zO7rHUjad5VA/PD9ckd866Jh/57EgR8oGs++cHeNS1J9wIZs4QF7sp x75Sy/GwGfEPqrz7m//bWU4jWrq9ya066t+j y/S+/DZb48suiKY/i9H+euQ448BAzwa0ci+TJV7a69VDLc/XbH+XbH+Xav+MHk9/afrM869l1Nd91QeH kqh8xal9hkr88/qKugfPt/Pe2r4g+Ub3+oV/sa4juoD7H4dJ/oT/t/Gwn7itmOdrpvVhpA5Cj6l0fzxE PjHQK+rGaNYfA6OJ9iZ+IHHfGDnvZVlTeUXyjf/hQf XZ8wy8cL8g07gs3mtmvl+Up8AR1ci+Gz/Sk+25/iU1C+/SkO/6DPjk/i6lTlZbmOO/ANfAN/gb/Ad/DP eJ/cJ1Ry7G/AEkXup4uK54/h/TWM1/D+moLf/xH28lj7MBDc1QnP2/la+1PcFsrj+FiSz7i3wQor0jFb Rmkm18F9eKe7vt6+X+zd5R1nId2mc/FO0ki9GkHz+P 1/5LCvfLU/xVfHp/qfo2hdCc/suX9V1/m/oVY2d2IKFx//R3n2o08zdb9hby0zvm1xcl5m/1qwAc2z2h 7Az/+FurYu0/jMvlgDpyb8qCd386/fe7d3X37NFs+/x22eM707M7Ak++3uHZ/jbR1HgZ98smSqxG0QNh HI+BTJa+vfSD5Iq+R1+mo80Nwep/Do+BQPA//4F+61 Xb+GR/tT/EhJ9BjdkZ+KN9skjKa15/4U3+1P8d3+FN/W9E15mw1cKrAxwdfn1Y/rWx3E8orq0u1P8s2t KX72r+71An/1c0n/4LGdfLe/zNM/eK/B3/3cd/tT4ml/SqR/cCW//SmR/kHLawVfwW9/SsA/GOkfrDIT /K9Wvff0LJG+vGilFljOl9RC7BB5xe2dyf/3K1QUHW 9nRIcIL9VK4Qk4s/sp/j7XNSRrFhX0VURv8IgfSS823klRW0DSOT50q7VkATo3IT/b/xva/qPQ9h+FYr mB6msOFkV6Xg8P+2a4Kldm3ezt/Y1QB9/BD/AD/A1+831R5wmT1FMA+TTFNy3Ce+SO4Jp200o/Y/R+To o7L9ZudP/hxm1ekrIq1o/FCPAD/Z5cR1KVd6Cen4nn /iivtlKRQV8AFtZwxe685G4M+qv1xb5b4bzQC/Nu3jjdI+7b39/I/avib/D3917R2Y3LzeG2xlSwkepD 3i1NKvxSY3q///fD+n8/vI0CGYZ5BswX9F6nUXxK5mP4lonHZRv9Fy5BvIb4ai+K9A/VjHZe0R+0M7o/ C+PF/kLzsCE1Z7+B3/tXsXo/JteMpjIgXwTwvWI0r+ EYb+5fZRnv/noc6h8B16wwhYL5B+UH+Biv4/l670+G9357+AJ/xF33E6KpLsk4PiS9oMz5xrql/UcRD/ uJsa1az4X8E3PZ586C/gR/gt/2c2D/KrB/ITXyYy2ojqO+8Q2lINRK/0GKTvkym4kk+G174711xqHx8z 3Ax/HIpfUeN4kI75cvv+UzmP8ONk4R7KXT/9SZWrk5 o/2ez/vp compliance/ns61Hc46152B3OoQi33UXeF1Ph/sy0G3Lk1P+Ui0llw25w5d30++3G0E+h/gN/o4S97LeBI [file] Wd9dEvBwNQOZA4Xwm4WaXKKrXKECBd2+NtK4FEJ4hMRhItw1YcCoATgrNFOBXv== ID Date Data Source [id number] 02/09/2021 12:31:28 AM EDT [facility] Name Value Range Interpretation Code Description Data Tyra rce(s) Supporting Document(s) WBC 10.0 10*3/uL (4.1-11.0) [facility] RBC 2.81 10*6/uL (4.00-5.40) L [facility] HGB 8.1 g/dL (12.0-16.0) L [facility] HCT 24.1 % (36.0-47.0) L [facility] MCV 85.7 fL (80.0-95.0) [facility] MCH 29.0 pg (27.0-32.0) [facility] MCHC 33.8 g/dL (32.0-36.0) [facility] RDW 14.8 % (10.5-14.5) H [facility] PLT 115 10*3/uL (150-450) L [facility] MPV 9.0 fL (7.1-10.7) [facility] ID Date Data Source [id number] 02/08/2021 10:55:11 PM EDT [facility] INFORMATIONPatient MRN Name Date of Age Gend*PT [id number] Oxana Clancy 1950 70 years F IPPT Location Admission Date/Time Visit ID Attending ProviderD-[id number] 02/07/21 1502 --- Jo Molina MD([id number]) EPI ID CSN Admitting Provider [id number] Attestation signed by Raymond Palumbo MD at [...] stenosis status post AVR, PAD [facility] with chest tightness withminimal [...] Medical History:Diagnosis Date Cardiac CATH 09/09/2018 09/09/2018 [facility], . 50%dRCA, normal LV EF, moderately severe , moderately severepulmonary hypertension COPD (chronic obstructive pulmonary disease) Diabetes mellitus 09/08/2018 Diastolic CHF 09/08/2018 Essential hypertension 09/08/2018 History of diabetic ulcer of foot, right 09/201809/08/2018 History of pericarditis 10/201811/17/2018 Hx of CABG 09/201809/14/2018 [facility], ABAD to LAD, SVG to LV branch [...] Social Gatherings with Friends and Family: Attends [employer] Services: Active Member of Clubs or Organizations: [...] 1 tablet (75 mg total) by mouth [id number] tablet 11 Irmkfszvnuq-Pdrqzvxtd-Naxtjb (TRELEGY ELLIPTA) 100-62.5-25 MCG Inhale 1 puffdaily [...] heparin (porcine), lidocaine, midazolam, nitroglycerin,oxyCODONE-acetaminophen, traMADolDylan L Wrights, JUSTINE portion of this chart was dictated using LetsCram speaking softwarewhich may lead to typographical errors. A reasonable effort has been made toproofread but please call with any questions or errors. Name Value Range Interpretation Code Description Data Tyra rce(s) Supporting Document(s) ID Date Data Source [id number] 02/09/2021 06:22:34 AM EDT [facility] Name Value Range Interpretation Code Description Data Tyra rce(s) Supporting Document(s) POC NOVA GLU 186 mg/dL (70-99) H [facility] CLINICAL STAFF ID Date Data Source [id number] 02/08/2021 03:58:16 PM EDT [facility] Name Value Range Interpretation Code Description Data Tyra rce(s) Supporting Document(s) POC NOVA GLU 221 mg/dL (70-99) H [facility]IN[facility] STAFF ID Date Data Source [id number] 02/08/2021 02:37:47 PM EDT [facility] Name Value Range Interpretation Code Description Data Tyra rce(s) Supporting Document(s) &PDF [facility] ZZHEYe6nFqTSYsId50/QPJnpMZFpa0BtTDcqAIl3IWyiOBChN9WqoPbtAMLPFYqPNcrKNtxMVGlZLFTE lYX [file] AgICAgICAgICAgICAgICAgICAgICAgICAgICAgICAgICAgICAgICAgICAgICAgICAgICAgICAgICAgIC KaYNZxGBUdEBYbEMMtQPDyFWIeKTXsYHIeMLFqGXZrTVKgPR8PAOBsTNRtNGNwTISgYXRdCUCnNVNuTP AgICAgICAgICAgICAgICAgICAgICAgICAgICAgICAg QNDwAYAiBXFiUTKpOVIyLGNhMAFgATReYGRkLDTgDHHgCPAfWTDoEECbNVMuTZ9ZDJRbGDXxMHIiNRQk ICAgICAgICAgICAgICAgICAgICAgICAgICAgICAgICAgICAgICAgICAgICAgICAgICAgICAgICAgICAg HSPjXJAqRHUlRWOwPFGqTWNoSUIkCKDtVLXsOT2DCE AgICAgICAgICAgICAgICAgICAgICAgICAgICAgICAgICAgICAgICAgICAgICAgICAgICAgICAgICAgIC QnDWPkEWXpBMDnGFXbJZPkPSKgBWBqNWZeJVUvAUPbOFBcBPAxSJ6KNUVkQPRuWFJyQYEmEGFlVTXoIL AgICAgICAgICAgICAgICAgICAgICAgICAgICAgICAg YNGxOHFfTNMwGSWgBMEkSCPbIUZySRXdLKAdVPOrHKJyEDOzYEBkKLByUHIyTYKjXD8QONAhHJNgLVAt ICAgICAgICAgICAgICAgICAgICAgICAgICAgICAgICAgICAgICAgICAgICAgICAgICAgICAgICAgICAg ICAgICAgICAgICAgICAgICAgICAgICAgICAgICAgIA 0KICAgICAgICAgICAgICAgICAgICAgICAgICAgICAgICAgICAgICAgICAgICAgICAgICAgICAgICAgIC QqEDCoFKQwPRAkDQUdEKZnAWYvSLKbKNLwELEtILLqHDXoIBQhJWBaQR5YKDKeHXYjIAWbSBJbLFJqST AgICAgICAgICAgICAgICAgICAgICAgICAgICAgICAg ONHfYHCiLQEvIHUjMLRjVPWzLFUxSNDrKEWhAFOrJIObDGMuESFaMVLvVIRrHSSsSNQpVA2LCTPwBMJl ICAgICAgICAgICAgICAgICAgICAgICAgICAgICAgICAgICAgICAgICAgICAgICAgICAgICAgICAgICAg ICAgICAgICAgICAgICAgICAgICAgICAgICAgICAgIC YsBR0NNPGvJPEjVWXsJTVsDGQpBAMbIJYxHRMlPVAzKYNtBNRkHOXqIXQeMQEaCSXaYRZpGJOwVIKqMN ZkHXTkGGDlPGVpHFSyKBAsCTSoYAIzNRMwOFQvPHNiKQBrNDQeWANhGIJdAW4YLM93fDFbd7J7TCPuBO 0ndyc/Eq8VDWwzjgTkzISdQR8PIrXuHZ4wiy8USnXz LH6pxx2QKHlQQfRcU1U5bMQjIISjEMFMSaYmI85yYEdcUf09OXcbGALbAkMjVEs8Hw8QLqTwV4uoEIHl CnR4LLWnYyU2LDWoZoE3AVCtOhYqEGOyENPhSAQcOBYFGOW6RWToNcNqOQplBI3Wn7DikBM5HTi+Pg0K MG2sl5UeWOleWPBiQQ9aqc4ZJKkXIfCdE0NoauN3IE MgHBOjQo5COVRbQAXqhQHmFABoAZUZXvZpD0VxuK02XFVBRr5+HNbjgzVbRzjWAkMkGSKzf2WaUCj2DH 4MZVBdHZo3dICzOQ3aoOQlbCQqWOgmLD0OVXO7UHajFzQqARJtV6kRWrPzXRIkIPWnsJqqLS7EZoIwG0 BhcmVudCAzMCAwIFINCj4+DQplbmRvYmoNCjMyIDAg n3IgFSv1AO0DAHGcNMgcIV1TYTXpcI8xALahIS8PSjZwUEIxDSSDMsZgE08gnLMxTMg6G5RyHfZpCOOj RmlsZXMgPDwvTmFtZXMgWyBdDQogID4+ID4+GHfdLU1WSCnvksAxOZDiTw7LDJScOMEcLY2pBDCsKTFm B6H4aYfiGAKHIwZkR8mzoxjyAV2nUZVzT997pCpbzq QkNMZlDWUaGj0XIQOnLES3IWGueLHjDvueYTASNEktKP3DcFAbYQF4rT3pEKraBSWrCGBsG6tATgIpsF cgCJ03lGlqjlHorPVsOCa+Gh5GEB9xj8LdJQk0rjOpZYidXILbQSezGFMpMACyGVAsQXN3TFH3XUCKLo TeKHYfHTRnPUlfQKFkCEZgfz2MTKGtRLY2HGB0ZpFf SINcBLFeQIqkUDXzJEj7FsKbWYFgEYAnOX4GPoUqAXFuVSVlMFNtFXFiISTlad1OUYGlSUByRyF5VsLy QCAjXEYkJAghQYHhLIXtGpeaLPSwPHExNS8UJxEsIXPwTIFkKhTsBTOuFGZtya9GDDLjWTYhDGO8HZCg VAChYKVmTUjfTQZtPLU2DnFuKTJlCUUuRK4HQgMiBD EgQPp4RMVjHJMaXMFfss7SYKSnKGQbZFQjYKNsJZAxTHCxVXslVTGlOXN3DiK9CGFhJHZhVG5KTbLlJF ScRVQ0OdNsGXJlDOJsba1YCTKaBVUtDOZ0RRMyHUAbYXXrVSahDVEkYTEdSGX3QAHiOOQyZY4WJpAvAB JsUEUuFMBhYOBsYZJgwx2QUMDlGVCvGGReELLyODZv UKQjNHmhQWZaRSQ1NVT3JSIcOFXfYZ0UUmJtVYZnEUJ4KDTbIAJxIAYbkx4YIBDxRSTePOU6UOYkWTNc RTSdOQnsKLWcRIW9LjGaHXNuRDEpON7JCeEaGZIpVBH2JmgcDPFiTKLiiq5SORAlJZLuCHCmIdGqQOQz UBByWMkvOTSvJSP5Gcu3BYFuPWLhDE3FZhGuZYSpIm e7YKgjGASbMIRbia4PXSDvQXK3SFJ7DtSgWUQaUUYrCJylXRMcIPI9OOJeRJMnVKByFZ5ADpZaROXpYM N8LdKeLPAaYRUlvq0DWRJjCON0GQCtMqUrTWJpIJDyWVzjNXWbRFf4RTuwOAHzSTDyQY3KXuSzQZVnVW D9EVAxPUZkHCDxhh8RVCUgOCI2VjB7NjRsPTZdKZQt TQd7jcGraGWlYFc8VK3WZ2WlqpMxLkAJKi0Nq960KMGfROJdEo3ID7frBp3hXDBfMEHLMk4QEMw1VtR0 YMVsQ0IzGXHjM2T3NhbhU6C8HOBqKtRbWrAuB3O+OSc0WUN8YDY6CPInHPS7PzldEPM1CKF4ZtWxYQGe MCEuHK5xUZAREn1+HTjcrHDouGqhVUKUWsx0VMn9FYauZLHOJc5N ID Date Data Source [id number] 02/08/2021 03:43:15 PM EDT [facility] Name Value Range Interpretation Code Description Data Tyra rce(s) Supporting Document(s) APTT 45.3 s (22.0-34.3) H [facility] ID Date Data Source [id number] 02/08/2021 11:42:12 AM EDT [facility] Name Value Range Interpretation Code Description Data Tyra rce(s) Supporting Document(s) POC NOVA GLU 251 mg/dL (70-99) H [facility] [place] [facility] CLINICAL STAFF ID Date Data Source [id number] 02/08/2021 08:19:06 AM EDT [facility] Name Value Range Interpretation Code Description Data Tyra rce(s) Supporting Document(s) POC NOVA GLU 215 mg/dL (70-99) H [facility] [place] [facility] STA[facility] ID Date Data Source [id number] 02/08/2021 06:23:10 AM EDT [facility] Name Value Range Interpretation Code Description Data Tyra rce(s) Supporting Document(s) EKG [facility] IZBLBj0pBxJUGzRod7LtBtCwDNMcJW1gdyq6B0T3fQIzJ6PofAMgt0yrP1RnD0DuAJKbSMMLIX6WnXEx jb2 [file] F1SX1jnMXl+DfEzD7eucMvRjRgkueeoxMo6/l8voDvsZAp2s9+ULTRASOUND APPLICATIONS SPECIALIST+xX24+ULTRASOUND APPLICATIONS SPECIALIST+4vTL8lojc598ARN/2n9 [file] UN3ohojo0djOK/syGL/TCksR+Research Psychologist+ZPf2C5k9DVR/RPIjoFa0pjn395WZattN3whd/K6uwScDeTkBO+GL [file] AwMDAgbiAKMDAwMDAwMTYwOSAwMDAwMCBuIAowMDAw YKWkRjQ9ZMUvTKZnWP3gRdSmSSHyKRE4ZIGlAXIhNYDjiqXZLYDeCFMuQXCxQBJ5MCQkISAiEUj0meVb nQXoWju0Sn9JoQijIDZ7Ao5FofGaCCUfUIORCl6Mu636BXZaVCEEVuk+PgpzdGFydHhyZWYKOTgzMzYK HSGDS4E= ID Date Data Source [id number] 02/08/2021 05:56:39 AM EDT [facility] Name Value Range Interpretation Code Description Data Tyra rce(s) Supporting Document(s) SODIUM 141 mmol/L (136-145) [facility] POTASSIUM 3.2 mmol/L (3.6-5.2) L [facility] CHLORIDE 103 mmol/L (100-108) [facility] CO2 30 mmol/L (22-31) [facility] ANION GAP 8 mmol/L (7-16) [facility] UREA NITROGEN 91 mg/dL (7-24) HH [facility] CONSISTENT WITH PREVIOUS RESULTS CREATININE 3.30 mg/dL (0.60-1.00) H [facility] BUN/CREAT RATIO 27.6 RATIO (10.0-20.0) H [facility] GLUCOSE 211 mg/dL (70-99) H [facility] CALCIUM 8.8 mg/dL (8.4-10.2) [facility] GFR 14 ml/min/1.73m2 (>59) L [facility] GFR ( AMER) 17 ml/min/1.73m2 (>59) L [facility] GFR INTERPRETATION [facility] --NORMAL KIDNEY FUNCTION OR MILD DISEASE - GFR >OR= 60CHRONIC KIDNEY DISEASE - GFR 15 - 59RENAL FAILURE - GFR <15 Est. GFR calculation based on the MDRDstudy equation, which assumes a steadystate for creatinine. Est. GFR should notbe used for medication dosing. ID Date Data Source [id number] 02/08/2021 05:19:16 AM EDT [facility] Name Value Range Interpretation Code Description Data Tyra rce(s) Supporting Document(s) APTT 52.7 s (22.0-34.3) H [facility] ID Date Data Source [id number] 02/08/2021 05:08:05 AM EDT [facility] Name Value Range Interpretation Code Description Data Tyra rce(s) Supporting Document(s) WBC 7.9 10*3/uL (4.1-11.0) [facility] [place] RBC 3.47 10*6/uL (4.00-5.40) L [facility] HGB 10.1 g/dL (12.0-16.0) L [facility] HCT 28.4 % (36.0-47.0) L [facility] [place] [place] [address] [place] [address] MCV 81.9 fL (80.0-95.0) [facility] [place] MCH 29.0 pg (27.0-32.0) [facility] [place] MCHC 35.5 g/dL (32.0-36.0) [facility] [place] RDW 15.1 % (10.5-14.5) H [facility] [place] PLT 135 10*3/uL (150-450) L [facility] [place] Aguilar MPV 9.0 fL (7.1-10.7) [facility] [place] ID Date Data Source [id number] 02/07/2021 10:40:00 PM EDT [facility] Name Value Range Interpretation Code Description Data Tyra rce(s) Supporting Document(s) SARS coronavirus 2 RNA [Presence] in Res piratory specimen by ALLAN with probe detection NOT DETECTED [facility] This lab was reported by [facility]. ID Date Data Source [id number] 02/08/2021 12:31:56 AM EDT [facility] Name Value Range Interpretation Code Description Data Tyra rce(s) Supporting Document(s) SPECIMEN DESCRIPTION [facility] [place] INFLUENZA A (NEG) [facility] INFLUENZA B (NEG) [facility] RSV (NEG) [facility] COMMENT [facility] THE [place] FDA HAS MADE THIS TEST AVAILABL EUNDER AN EMERGENCY USE AUTHORIZATION(EUA) FOR THE DETECTION AND/OR DIAGNOSISOF THE VIRUS THAT CAUSES COVID-19.PERFORMED AT [address] [place] [id number] COVID19 RESULT (NDET) [facility] THIS ASSAY AMPLIFIES AND DETECTSTHE TARG ET RNA USING REAL-TIME PCR.TESTING PERFORMED ON [employer] GENEXPERTNEGATIVE 2019_NCOV RT-PCR RESULTS DONOT PRECLUDE 2019_NCOV INFECTION ANDSHOULD NOT BE USED THE SOLE BASISFOR PATIENT MANAGEMENT DECISIONS. FIRST TEST [facility] [employer] [facility] [employer] [facility] [place] SYMPTOMATIC [facility] [place] Aguilar DATE OF SYMPT ONSET [facility] [place] [facility] ICU [facility] CONGREGATE CARE SET [facility] [place] [facility] ID Date Data Source [id number] 02/07/2021 10:17:48 PM EDT [facility] Name Value Range Interpretation Code Description Data Tyra rce(s) Supporting Document(s) APTT 62.6 s (22.0-34.3) H [facility] [place] ID Date Data Source [id number] 02/13/2021 07:04:12 AM EDT [facility] Name Value Range Interpretation Code Description Data Tyra rce(s) Supporting Document(s) POC NOVA GLU 198 mg/dL (70-99) H [facility] [place] [facility] ID Date Data Source [id number] 02/07/2021 05:15:58 PM EDT [facility] INFORMATIONPatient MRN Name Date of Age Gend*PT [id number] Oxana Clancy 1950 70 years F OBSPT Location Admission Date/Time Visit ID Attending [id number] 02/07/21 1503 --- Jo Molina MD([id number]) EPI ID CSN Admitting Provider [id number] Attestation signed by Jo Molina MD at [...] Status: PriorPrimary Care ProviderReferring Physician: Flaquita RIZZO [facility] Complaint: Chest pain and shortness of breath. Poor historian.[facility] NSTEMIHPI: This is a 70-year-old [...] lower extremity edema or [facility]ope. [facility] She ruled in for a NSTEMI. Troponinelevated to 16.7.Initial EKG 02/06 revealed rapid atrial fibrillation with marked ST depressions inthe inferior and lateral leads with a ventricular rate 114EKG today revealed sinus bradycardia with a septal infarction and STabnormalities in the inferior lateral leads.Transferred to [facility] for cardiac catheterization. On arrival she is chestpain-free.Troponin 16.7 CK 411Thyroid levels normalHCT 33.4/7.3Creatinine 3.7 BUN 94Covid 19 negative 9HistoryPast Medical History:Diagnosis Date Cardiac CATH 09/09/2018 09/09/2018 [facility], . 50%dRCA, normal LV EF, moderately severe , moderately severepulmonary hypertension COPD (chronic obstructive pulmonary disease) Diabetes mellitus 09/08/2018 Diastolic CHF 09/08/2018 Essential hypertension 09/08/2018 History of diabetic ulcer of foot, right 09/201809/08/2018 History of pericarditis 10/201811/17/2018 Hx of CABG 09/201809/14/2018 [facility], ABAD to LAD, SVG to LV branch [...] Social Gatherings with Friends and Family: Attends Caodaism Services: Active Member of Clubs or Organizations: [...] tablet (75 mg total) by mouth nightly Jlegfiyncpv-Itudqcpbz-Ucsieb (TRELEGY ELLIPTA) 100-62.5-25 MCG Inhale 1 puffdaily [...] Paroxysmal atrial fibrillation: Initial EKG at the [facility] revealed atrialfibrillation. Since has been in sinus [...] rce(s) Supporting Document(s) ID Date Data Source [id number] 02/07/2021 04:28:40 PM EDT [facility] Name Value Range Interpretation Code Description Data Tyra rce(s) Supporting Document(s) EKG [facility] WHDQPj0dPyNJCqNwt1UdRwGlSQGrXY0cezl5N8B8eVSoI2EouXNje1ogS2RdO6SjEKAoSZSJTR5JnQJp jb2 [file] S2d/PHRxf+V9ub/b95K4i0J4yrbd/Z3fszH+bo+5a+OPO6v/F73V/o7+s8C36hA6ypHnSd0rU5s2Aii 155LQ7/j2bJKWE73W/vi2Efu04N+G/Gt4UvQqchd9+/mc4Vxsi38f/X9jk+/61UL79pn9MoXP6+N79Bx QN9x/iCH2Y1XIoPUZgbztC5UmBSZk2/++gm7s28YAi wKbdipaVFC1x/3IHw0vBNuK098YAE/Cvg7v1g3nB/j/sqfTfdX+vvpd/jfG/7eb18L/R5/FeWFNvctu7 3Y8a47M/3ueuU8/irK/cpz/IUDJ1hR7j3B25I4rl/xirFoTXIYnNpxiyI4rrIbIkv3WP+N18i0Sxy32s L76s7wBOgBS7+o7q+8Sv1v23TemEABm2/6EGgpIyI7 bjcL69IIqF/8IF6dg9nA89Jx/ZWX3V+49fXYuule0hpji342zNoe99aOp88zO2Q2515rvg+q+6v67lK/ 6Wzo6Ym4zz19DK6kD72615+3YbtpmmrzeoPqOWDKRozQ7kQsaxRC/QRe6TFxl5+Ivkx3v8Q29Om9m7+/ E71Q5Ulv25x+J/l7a0GzAxVeae7kZ7C3li8l4XYo93 4Hzwa0/ZlUj65OdpFvLD+n852534/V/dXz7jy/00q8m0RL3VK/6ZWvKigthJKwwmyafnA95sD8H0LjIs XnQfnyuvYU/P36jQZ/0U0I5u7fJx/XbkoNbj1D/xTX/ZX/+UHY9ZQkIyde2VSfZJ+UF/z540SRm9CIk2 6ucuh+/FTR95mBJbkvwdKt6Slt/Kp7+cxv8/JCed/y 8Ve+jjibye/fC8qn3/7uJH/15K8uy5Ky9oHA86QRT9dEaxz0gzHoyAeAhgo6sG/klDzjKtNw7Y/8Vev3 +W0d/Hd93rkWCdk5zGgS6KwdZ3wKj8iQdnbio133Pgz6nd0gXCuhRC7z9Mvv+Y+Tp76lzW6msNKTDiHe 6/5K5q809LP+y99+u+t4/ZAg9k1r7rHjc1rCksa3/Z B0nnzYS/yqOb+apx3nV/5351fD/77veI0f21HZlk/ecsgXybd74Kyy95K/P7BB05oyeyHtcX+EMQ89lP 1+80D89XfeA/259tyf+/4cNJ7957o+70GqqfhwbuG4M+X73u/P5Rsd/RxAI1Hmc91T9qdj97nTxZq6eI /g1sXnunjX/cGA0yQwKBlZaJ+LbjM2Po/Z5ldVwd/9 d9uXt/e8vIcjU6Nuz3ba+ZXKHdcMlE+/08un3+RAc218n8syq3P7a934K5/e/dE7op8Mhxi4L2xAuRCv +pmrz90n96LkjSV+AoJMltsjt3Hgp9Yck/Gj73OGxiiszzJo6uiwcZOsXZpfZL9iBtK6QOS6TFI4SujT Oe6LsI+8ULbeFnH0rBKEJMtCUODN4CHm2QJzGPwjJL NcFum23uv/X+h3od+FBxgOq6+0ZO7tbsahden5xztt4+l2gu6Qi/++38T9v6ErMSw4WoU06y+jfWOcsS InEOE0d9dkriZ0wUu4Fh8oszgXu67IDgl6dpNc1ib4icw/W8DLo18S8TGR+y9mtHsntspIU3xI16/8fe Ln19YJby9AHqyOP7oVhtB8RV6gmAC9D/dS20RTPaXx fAhwcEjHQ0NLA6wtytjEC7r7QPufDWdfuPd4K2CMF7dhpB93fE5ICY7jSYn9U2PAVcVRoRuYCpAa22Mb 6A/KGGcsCAc+DK6zTRfUBLlZErzeC+Y0jCUPF4FsP2JruNdsT3II7GzswYGyMSH0DwK243A8kB3nK088 jmZFGc/C3FuT7Ps20Ylf51qO/GPdF//AB/eBBeHAgn Dgg/iRtpP5hCC6oXfI3YXGqifM1hm+YDjl/aBsKJ9+u2+6FzVujrxjBcs5qAGu2OzqV/pg0FaeIv/TRAIN SYSTEM OPERATOR [file] vp compliance/vMzmXqu+O4Q0W643Y3E3Aqom6k0b68+ZKLvlf/8 [file] vYjtWGjkWQCJlQCJVFNwJrENAGmbZzxkbSlpFZyDxV tiBOJQhYXSzs08pRkAcksFzjvo3Zox54dOdMt41qK1qhLZHxvtJTugGeLNi7vdKFAYWAVAOg4L1Lw8tX YJvILQnMQfKAGTcXHJ0bZomTHWLcrPIHIVnaEntBSUDaaNpnOrnfHnNmPQM+4YSxOc9tCoUOcqYUUcFG HlLHHg6ahowKq2Lyv2ygdLzsm1wnlTdfxr+JHqjneb wJAngjm7qvGuh86kSfy7RazBcJsLl8JAfi4Zx04/fmnG709Ht43Piio1D4tq4D9ozsYKRc22Szn/R+UV 5qsPW642RPL3gFuGfokobg4hv0CfqbwOjwvm+AUkIL0RdEoeVbNc5Jrapcscr2ihDV5Fl9BMM2In0LNq Vb5fYyB6UwfLqNStLTX/QViutYjmydiZAJBdXpFdXZ 05JUjbvM36LK/2Fao5tI60OHiwYxct1oJBVkoBRxDz+Sg2UePRyme1PHoIn6ag1uguvk61CX+3Rof+52 3+r93EAh6io46lzt+8+Fu3lK0owJA+XS47W8NEh86rkW33Aip9OMfzLv05S8w/zwv4waTj/rfeV8Lk8v Agustín/OF8V2o1jN9/+vyce9ujvez5mX+8eXl0/nt+8uL z20jmha/3dd4/Xt1fL/tBD6p8aG6bz6cNJfyJqtN2v7OQ41ha31g5dZ48vH/5wcX5/eX2+fH/9+HIJD4 /D6fLD98pTh/xZ56qQO9sZc/hCBuhp2tMt/mt5XL4/f306/8vbu/tvzm+uH3/9eEq6u121cwa8H77ru4 i6z0u0b8h6V08Lbu0pVe22f04+dLMW3giTk7rmrS5r [file] MDAwMDUyMyAwMDAwMCBuIAowMDAwMDAwNjQxIDAwMD YmJB1gLvPdGSGdJJE6DKSdYANjIKMydwEOINAuQGWpMEt0RJVqBFLoEELkSXjiUIIqTNEjZXX0NJDbFJ QnGL8jNvTbTDJdSSAiTPBjCDXvFENckhILNMOmUJLiAPX4OHRvGXHxSYNuMZxrBQAmQIJoUwb3NZBlON TyEW7cBqKfLAYmRMR2DQPhYDKsAZDpkzWBLINpDXT0 LLa8RGMxZJIvRUSiSMryAHUjYDGnPjE9AZYtAYOnKK2cHsXyJOKoZQF5RyImGWNgGBQokhFPPTPqBLEz BIZ3LxZyBIMzDMRiKBflFZHsFBDwCKZsBTK2BPQ3DIVvGnRxZDcaQYPSOGcEC9OjivEiQrHGH0iqDc1t BkDnZFAEQ5Rjq2BxLOLyRUVNAx7+BkJ1MWK0aKCnMln9MHG6CVqmNWILAw== ID Date Data Source [id number] 02/07/2021 07:05:38 PM EDT [facility] Name Value Range Interpretation Code Description Data Tyra rce(s) Supporting Document(s) WBC 8.0 10*3/uL (4.1-11.0) [facility] [place] RBC 3.58 10*6/uL (4.00-5.40) L [facility] HGB 10.4 g/dL (12.0-16.0) L [facility] HCT 29.8 % (36.0-47.0) L [facility] PERFORMED AT [address] [place] [address] MCV 83.3 fL (80.0-95.0) [facility] MCH 29.0 pg (27.0-32.0) [facility] MCHC 34.8 g/dL (32.0-36.0) [facility] RDW 15.2 % (10.5-14.5) H [facility] PLT 133 10*3/uL (150-450) L [facility] MPV 9.1 fL (7.1-10.7) [facility] ID Date Data Source [id number] 02/07/2021 06:19:10 PM EDT [facility] Name Value Range Interpretation Code Description Data Tyra rce(s) Supporting Document(s) CKMB 28.7 ng/mL (0.0-5.0) [facility] ALERTED CRITICAL RESULT TO TO [facility] IN C TOMU (1278) ON 02.07.21 [place] 1817 [place] [id number] CKMB RELATIVE INDEX 8.0 {index_val} (0.0-4.0) H [facility] ID Date Data Source [id number] 02/07/2021 06:08:53 PM EDT [facility] Name Value Range Interpretation Code Description Data Tyra rce(s) Supporting Document(s) TROPONIN I 15.00 ng/mL (<0.05) [facility] [place] Less than 0.05: Myocardial injury unlike lyGreater than or equal to 0.05: Highly suggestive of myocardial injuryCorrelation with rise and/or fall ofserial troponins, clinical symptomsand ECG changes is necessary.ALERTED CRITICAL RESULT TO FINA(1278)[place] [id number] ON 02.07.21 [place]07 [place] [id number] ID Date Data Source [id number] 02/07/2021 06:08:53 PM EDT [facility] Name Value Range Interpretation Code Description Data Tyra rce(s) Supporting Document(s) SODIUM 136 mmol/L (136-145) [facility] POTASSIUM 3.4 mmol/L (3.6-5.2) L [facility] CHLORIDE 97 mmol/L (100-108) L [facility] CO2 32 mmol/L (22-31) H [facility] ANION GAP 7 mmol/L (7-16) [facility] UREA NITROGEN 93 mg/dL (7-24) HH [facility] ALERTED CRITICAL RESULT TO FINA(1278)[place] [id number] ON 02.07.21 [place] [address]07 [place] [id number] CREATININE 3.71 mg/dL (0.60-1.00) H [facility] BUN/CREAT RATIO 25.1 RATIO (10.0-20.0) H [facility] GLUCOSE 273 mg/dL (70-99) H [facility] CALCIUM 9.1 mg/dL (8.4-10.2) [facility] GFR 12 ml/min/1.73m2 (>59) L [facility] GFR ( AMER) 15 ml/min/1.73m2 (>59) L [facility] GFR INTERPRETATION [facility] --NORMAL KIDNEY FUNCTION OR MILD DISEASE - GFR >OR= 60CHRONIC KIDNEY DISEASE - GFR 15 - 59RENAL FAILURE - GFR <15 Est. GFR calculation based on the MDRDstudy equation, which assumes a steadystate for creatinine. Est. GFR should notbe used for medication dosing. ID Date Data Source [id number] 02/07/2021 05:57:58 PM EDT [facility] Name Value Range Interpretation Code Description Data Tyra rce(s) Supporting Document(s) NT PRO BNP 64664 pg/mL (0-125) H [facility] [place] ID Date Data Source [id number] 02/07/2021 05:57:58 PM EDT [facility] Name Value Range Interpretation Code Description Data Tyra rce(s) Supporting Document(s) CK 358 U/L (26-192) H [facility] ID Date Data Source [id number] 02/07/2021 05:28:05 PM EDT [facility] Name Value Range Interpretation Code Description Data Tyra rce(s) Supporting Document(s) HEMOGLOBIN A1C @ 7.9 % (4.0-6.0) H [facility] Performed using Siemens [place] immunoassa y.Care must be taken when interpreting [id number] in patients with a hemoglobin variantor decreased erythrocyte lifespan. Values 5.7 - 6.4% suggest prediabetes.Values >=6.5% are diagnostic for diabetes.REFERENCE: DIABETES CARE 2018: 41(S13-S27).PERFORMED AT [address] [place] [id number] EST AVERAGE GLUCOSE 180 mg/dL [facility] ID Date Data Source [id number] 02/07/2021 05:13:38 PM EDT [facility] Name Value Range Interpretation Code Description Data Tyra rce(s) Supporting Document(s) APTT 25.5 s (22.0-34.3) [facility] [place] ID Date Data Source [id number] 02/07/2021 03:21:50 PM EDT [facility] Name Value Range Interpretation Code Description Data Tyra rce(s) Supporting Document(s) POC NOVA GLU 312 mg/dL (70-99) H [facility] [place] PERFORMED BY [facility] ID Date Data Source [id number] 02/07/2021 01:37:00 AM EDT [facility] Name Value Range Interpretation Code Description Data Tyra rce(s) Supporting Document(s) SARS coronavirus 2 RNA [Presence] in Res piratory specimen by ALLAN with probe detection NEGATIVE [facility] This lab was ordered by [facility] a nd reported by [facility]. ID Date Data Source [id number] 01/23/2021 04:14:55 PM EDT [facility] Name Value Range Interpretation Code Description Data Tyra rce(s) Supporting Document(s) Discharge Summary [facility] DHZXNr0vFoARTzQw16/ZTVdzSEShz5QwQZzoKNe2OJxfZLChG1IiIXF2iN0hXXS0MQzEMuMwOdAnXIN6 lbm [file] AgICAgICAgICAgICAgICAgICAgICAgICAgICAgICAg ICAgICAgICAgICAgICAgICAgICAgICAgICAgICAgICAgICAgICAgICAgICAgDQogICAgICAgICAgICAg ICAgICAgICAgICAgICAgICAgICAgICAgICAgICAgICAgICAgICAgICAgICAgICAgICAgICAgICAgICAg ICAgICAgICAgICAgICAgICAgICAgICAgICAgDQogIC AgICAgICAgICAgICAgICAgICAgICAgICAgICAgICAgICAgICAgICAgICAgICAgICAgICAgICAgICAgIC AgICAgICAgICAgICAgICAgICAgICAgICAgICAgICAgICAgICAgDQogICAgICAgICAgICAgICAgICAgIC AgICAgICAgICAgICAgICAgICAgICAgICAgICAgICAg ICAgICAgICAgICAgICAgICAgICAgICAgICAgICAgICAgICAgICAgICAgICAgICAgDQogICAgICAgICAg ICAgICAgICAgICAgICAgICAgICAgICAgICAgICAgICAgICAgICAgICAgICAgICAgICAgICAgICAgICAg ICAgICAgICAgICAgICAgICAgICAgICAgICAgICAgDQ ogICAgICAgICAgICAgICAgICAgICAgICAgICAgICAgICAgICAgICAgICAgICAgICAgICAgICAgICAgIC AgICAgICAgICAgICAgICAgICAgICAgICAgICAgICAgICAgICAgICAgDQogICAgICAgICAgICAgICAgIC AgICAgICAgICAgICAgICAgICAgICAgICAgICAgICAg ICAgICAgICAgICAgICAgICAgICAgICAgICAgICAgICAgICAgICAgICAgICAgICAgICAgDQogICAgICAg ICAgICAgICAgICAgICAgICAgICAgICAgICAgICAgICAgICAgICAgICAgICAgICAgICAgICAgICAgICAg ICAgICAgICAgICAgICAgICAgICAgICAgICAgICAgIC AgDQogICAgICAgICAgICAgICAgICAgICAgICAgICAgICAgICAgICAgICAgICAgICAgICAgICAgICAgIC AgICAgICAgICAgICAgICAgICAgICAgICAgICAgICAgICAgICAgICAgICAgDQogICAgICAgICAgICAgIC AgICAgICAgICAgICAgICAgICAgICAgICAgICAgICAg EXFfNMEfDBRwYKMbCPAxQLYkRCDpZXFjNZCvKQAxIAJuKQVlAAXbTUJkAESrZLNlIMPeHPTsUJb8Z1ur HJMfPUEaDL7jZGv4Op6+YMcHYdTjHZC6nyOtiX9YQR7hy4BiSAoyWGSsr1GeUGh2YB5JMBIyRYquRL6I NIwskj7JHPVdEDWruJIAp0ohCdRjUFD8XLMpYhtdOO 9EMYAlB5uqefVaEAFmHMWIRAsiLOWLGGgfHOCJCXSqANBeKnDvXiPiWRNpWHIqZYWYFE7ENlDvY8FcxG 11PBXGCm5+FXdyhhClRkjWYnMlKFYic1BdHJr4HW9CMCOoZqnao9AwJgLoKAGJYYvnEV3XPOL6IOVmTN KiOh4DQUEfY716mcKzCH1OZo9MIoNeAN7arp1HKyXi UZEpJtvVKol1NAbwDE0LjVYdESdDaARftQCtP3ZdY2SujKOunMWydENHSXk1OEOoOuUVqR1lTTBqNXVO PQWtbTI1KqRpKfCyGlToLOR8HvWoIQ3pISuzXS9VJFT0YUbrCGIqLSByS4jZGpWiKQFqCtVngVwuHE4F EcTgC9FivjEbvMTuYIIsCHEGUr4+DQplbmRvYmoNCj NyJMMvo6GfKQk7OB2KELClSXjeDU6XPSGwrJ1rPWjoJT4QZoDzTXDnKRNZEfTpT67ydGFyBOk9X2ShAw VkZGVkRmlsZXMgPDwvTmFtZXMgWyBdDQogID4+ID4+TAjoJO1ZMLouyySiCJHfHj7SKHXoVUXfUB3cST OcRMTsF2B9sKihDMRUJcTjM7bblkmjFT9mNEBxG339 rYdbzfZxWUMnJSPuPt0JMEGyEMO1BSRrwFLxKppoRGZKNOuoBC5XuOQnYAB8hG8fYPxdQBWkHBGpR9nU UcOxlSfdDK70rJujohPdlFTxNRk+Fx7CTU4bx0ZxFQd9hxThFDkxWUDnIHseFIGzPSTnQUGwSIN5GZX7 HKOYViAqNYElVMNuMHhwKUVhZIGngl5XLDFbQMIwOX rnLnRkSSXfHVHuJCmmTXEtVRV1EWN4YNVxQZClWJ1RMrZoNBUtHCJuAPzfDVLrJLZzne2PKFSsBBLmBH G0EDEnLTTjNOUyGLmlKJZyIRB3ZPd6WLKlAJRjAG6BJoPjSJXnJXsbMZabABIhZPKwha6INOCpDYKoHP KgZOAhXHOhLUIvXTwmSNHuYSSwSMA4IGVtPZIyVZ2X PiZcDVCuJLYsRXeaIBAkVCMsdz0LPYLfNCJgMYIjPAWyRRXeWWUfXYzrZQOxQAN6JfEdDHKjPIFtSL8N StSkUTIkMJldNmIyBVTkSMDlrb4AZBVeIBQlDSJ2RDYdVYQiVYRrCJrrKSOzHJF2LZi2OBMrSSOlHQ6D RtAzSPRpNInjNWRtWNDuEZBgpw5ZADHaMJNiHEJ0ZE QlAPRaRNTpXVwbKTLkLWUdZGUwCOHfIJOaCT1DXkBvZGEoHxM2HmIyFXUuGWFrtb6TWPNyEFVnTCG7HJ EpYPDpLRZaIDdqXVBtWCWmQcd0UEYtJYVuOV0KOoLuRHMfIhC4MFBaNLOsRHKylu6RMLLpREHsYso6KQ ArBNMmQOTlGSkrCAFkHRZdSARbNVRhREIkPO2CXqSw CGTyZiYvYtJsHJUcJTIlql5HWBXwZGHyIWJ7WPBeENSjEEBjDPqzRORjVNC9EGk5LHOrFZNgFM6PEsWm JYUgGwZ5RxgaSELgOWLbhe0IUOBvCIBoZQVyWLIcVHUmDBBsFOytUVNpTOT8GYysRDEqCIGrBN6VUrFl IHJwSeM2YnQiIHYpRXRvxl1LDAMtTLJuKzrqOEHhQK UbDHBsJYc1piKgbCNnLVz1QC6BA7BdqzOrOpFCJh0Dh525IVDwLHYoFx6GY1yeMe8iXXGqFEPXCs5WPL j9BNN6AMCsU8L4BjDuNtGfVCS6QgU5DGHfOeDmDZI7VcI+BVflOGGdWOWvKUPdMGDyBFUrAxr0VfK7F8 E4RIYfWvRxCn7gNBBCGq7+DFiteWQjrZvyRQNMZcX1MEN2UAsvSBGCId6G ID Date Data Source [id number] 01/19/2021 01:50:00 PM EDT [facility] Name Value Range Interpretation Code Description Data Tyra rce(s) Supporting Document(s) Consultation [facility] XRAWGn0jToUPHcUl76/LRNmjPHMrt4AnFLwnCMh5JJfjVVWjB0OcSBC8aB5rLEI9HFsLJvQgDiKjDDYm lbm [file] DQogICAgICAgICAgICAgICAgICAgICAgICAgICAgICAgICAgICAgICAgICAgICAgICAgICAgICAgICAg ICAgICAgICAgICAgICAgICAgICAgICAgICAgICAgICAgICAgICAgICAgDQogICAgICAgICAgICAgICAg ICAgICAgICAgICAgICAgICAgICAgICAgICAgICAgIC AgICAgICAgICAgICAgICAgICAgICAgICAgICAgICAgICAgICAgICAgICAgICAgICAgICAgDQogICAgIC AgICAgICAgICAgICAgICAgICAgICAgICAgICAgICAgICAgICAgICAgICAgICAgICAgICAgICAgICAgIC AgICAgICAgICAgICAgICAgICAgICAgICAgICAgICAg ICAgDQogICAgICAgICAgICAgICAgICAgICAgICAgICAgICAgICAgICAgICAgICAgICAgICAgICAgICAg ICAgICAgICAgICAgICAgICAgICAgICAgICAgICAgICAgICAgICAgICAgICAgDQogICAgICAgICAgICAg ICAgICAgICAgICAgICAgICAgICAgICAgICAgICAgIC AgICAgICAgICAgICAgICAgICAgICAgICAgICAgICAgICAgICAgICAgICAgICAgICAgICAgICAgDQogIC AgICAgICAgICAgICAgICAgICAgICAgICAgICAgICAgICAgICAgICAgICAgICAgICAgICAgICAgICAgIC AgICAgICAgICAgICAgICAgICAgICAgICAgICAgICAg ICAgICAgDQogICAgICAgICAgICAgICAgICAgICAgICAgICAgICAgICAgICAgICAgICAgICAgICAgICAg ICAgICAgICAgICAgICAgICAgICAgICAgICAgICAgICAgICAgICAgICAgICAgICAgDQogICAgICAgICAg ICAgICAgICAgICAgICAgICAgICAgICAgICAgICAgIC AgICAgICAgICAgICAgICAgICAgICAgICAgICAgICAgICAgICAgICAgICAgICAgICAgICAgICAgICAgDQ ogICAgICAgICAgICAgICAgICAgICAgICAgICAgICAgICAgICAgICAgICAgICAgICAgICAgICAgICAgIC AgICAgICAgICAgICAgICAgICAgICAgICAgICAgICAg ICAgICAgICAgDQogICAgICAgICAgICAgICAgICAgICAgICAgICAgICAgICAgICAgICAgICAgICAgICAg YWTtXPTrHXJmIZPjPXWnUFOxJAXoRAWtABYwQFGoCPTzSOBtWZXyTLGcTYDsGPHmSTWuIBn1W6hbPBOc PMAzKC4pXEo3Rt0+JQnUXqAwPUH2ugChkJ9IFN6iy8 TpRLclCFTpa7McWEb8GX4VIGEdZHhlGI9GSNjvii9RSSDgBAGvcAHVd0ddBlLrWJR9QSMbFkswND8VUP EtG5gouhMySKYuTFQXQVwhMOKSDKkzIVHIKHRqYTSbKpKcBfCjUJObQWEvJNHNQM6OByMzB8AffA62MK YNCj4+CTbzzwIdHdbWNlW2ZYLcw6OcRWl1IG6WLAXr Eyqfr6BnYaruHCTOFBeqAP5CYSK4RDZ4LPZiZw2NNZNqQ716plQfWM1HIs5TDsFlQL1hmt3MObtjHEYo XrkZFam0GYnpJP4CgZDcYMmIr37vwWn8cjPlyKMJbAVgXLHyAVxqWPFkWLCAKDTloIF2WbL7RkJcCrJu YYQ6XKgnDG1fANzpHC7ZCRJ8XAowDEElLHUdY1jBBu FoRHSpTrRmeZjpKS8SQcVqU3VylzEvwLUrHZFuKKBYKq3+NIecttAuAzbOUbEvKUHly6GsQBm0ZL5ABV GmCHmoLU8PJDMkfM6vOHjlNU0VWtIgOjQtQDEPMpHtI49vmZZdGSc0Q8ToWqXiQWOsMsurBEPiLJhkJb FtZXMgWyBdDQogID4+ID4+SAjuXN5AOJrsyzYxLCUy Kk2YHJDaONWyQS3oKYSjJYDcS5H3nJgoLBKXErXeN6lyovefKG0iNEKfH596sPidkeIxWLW5JBFyCe4V WFSbYJF1YPCyaDQhIgqqXWERFGgfRV4MbRIrGXV7gQ0nCLlnEFPeJOQrU6qRWyGvnWmiIH05uCbtldGv bCBdDQo+Hp6PEQ5sl0WuBOi6lwNyDYfcLSXeOBwsPG NkIRBkLUMxWUY2IWZ8YKFONjCxYICiRLNdUPkqRQFdCSNjau3UFHEcWSTvEok2EVWyBNDoEOVeITlzYG KzWHG3FtJ1ZCWiZCDuPZ5GRvHkBZGlMTToZEoePAMwNSWfty1ELNKhCEFrQtg1OzIbWLQhCONsAMitHL MeQCSbBFFwEPWdROHmTZ4DGySxJMXwMOK3EwkgYJKo WRSabl3GVEFpZROpFms9MLSgCJYnPOCxDJxnOZZgBXL6VFl1KMLaJCDhPA3FYxVhYZZmMHb1KSGeXTNi DUSsib4XQBIcQRXgZzG8FSGaVUMqWSXuXVjpRKKoTQLsURO3IXIvBLIpZI2MMqNyRPKqTAV5FfJyRJCk SVFfex3HPYAhALTsOeV8AFWmKKArOEYnKRfqSUYlXT S3YeAnPRApXEPzSJ5EWdBqWQFsMJw5SSRwPDXvJBSyux0HPBCiAIScOXo6SbAvKRDdBMHqKKoyAMHyCX Y0GIirXPDsGIKtRF8WYzHbWAYzHDxcJYKqDRWrLBSvog0AAYLyWOLfHRZwHUAzCALwQUTbXEjbTAOjDP DxPuY8NOUiDRBuDU4TMwCcKKYaKlJ5FFDhVMCpUYEq kg4CHXUcDLZdJVB1RNKjEYEvIYZxLPsqPKGkHTKgMpLsMYDfPOOnID5BSqJaBXTcThJ6ZNScPVNfORFp do7QHGLeZHSlErebZKMqAUIcGUMhOHmlOQXqUIWnTPU8QREpUMPnAZ1BNrNyKTAeBkQhOLQsVNWhZDLy uv0XHNYpPGHuICX0HaNgLMHxDXQoPNojWBElFXO3My SdLEVgEOKqGX8KWzKeMVWaBfL5NGLiJBAqMYYyoi4VIBCaYAYbUIikRRCfNRYgXIDbLJdvWEWnTKF3Zj CsTQVlJSXiTG0ONuGoPNHpLyN3WiJwSLUzGCPtnx1HMQFpFTCkCdidDJCeJRGqWZMoMZuiYNAfJCC0IX K3BHHmLYMdAT3GWbCzZGSqLahhAVRgSVSqHCMidw6R FLLtHELzTQf3QcGhYSFtQBEuBVmcOZNnNPI6KFR4HQBfIEDtKB8ZQcKfHIQgMrc4KDGrJSEbYLEntf5N iVKywDzbtq3XBXyVOx7GoVrdWRInDEhsRr7smPP2GMRkMYHOGi9IdbXoQMMmJESKGKeuSWQcYQXsD8Tz ZLB6Gey7MYR2T7AvETReGHJ6GrW4YfGzDeM3BpW9DE Q3SHBiYBElGPC4MEowRIPuYkHbRebhWXgqJYCoFHQ+JJ8zXPp+Km5Ok9FfmpQ0yuIfNIzeABPgCY5WJI UJA1BNKa== ID Date Data Source [id number] 01/19/2021 01:10:15 PM EDT [facility] Name Value Range Interpretation Code Description Data Tyra rce(s) Supporting Document(s) Glucose [Mass/volume] in Capillary blood by Glucometer 133 mg/dL 70- 140 [facility] ID Date Data Source [id number] 01/19/2021 10:13:00 AM EDT [facility] Name Value Range Interpretation Code Description Data Tyra rce(s) Supporting Document(s) SARS-CoV-2 RNA (specific gene not known or reporting a single result based on a combination of tests 2018 nCoV Real-Time RT-PCR: NEGATIVE [facility] This lab was ordered by [facility] and reported by [facility]. ID Date Data Source [id number] 01/22/2021 09:02:49 AM EDT [facility] Name Value Range Interpretation Code Description Data Tyra rce(s) Supporting Document(s) Specimen source [Identifier] of Unspecified specimen [facility] SARS-CoV-2 RNA (specific gene not known or reporting a single result based on a combination of tests) 2018 nCoV Real-Time RT-PCR: NEGATIVE [facility] Assay Performed Health system Negative results do not preclude SARS-Co V-2 infection and should not be used as the sole basis for patient management decisions. Patients first test for [facility] Patient employed in healthcare setting [facility] Patient has symptoms related to [facility] When did you start to experience these symptoms [Date and time] [Phen X] [facility] Patient was hospitalized because of this condition [facility] patient was admitted to ICU for condition [facility] Patient resides in a congregate care setting [facility] status [facility] ID Date Data Source [id number] [facility] Interpretation Code Description Data Tyra rce(s) Supporting Document(s) Glucose [Mass/volume] in Capillary blood by Glucometer 196 mg/dL 70- 140 H [facility] ID Date Data Source [id number] [facility] Interpretation Code Description Data Tyra rce(s) Supporting Document(s) Leukocytes [#/volume] in Blood by Automated count 10.1 10*3/uL 4-10 H [facility] Erythrocytes [#/volume] in Blood by Automated count 3.51 10*6/uL 4.1- 5.3 L [facility] Hemoglobin [Mass/volume] in Blood 10.0 g/dL 11.5-15.5 [facility] Hematocrit [Volume Fraction] of Blood by Automated count 29.0 % 3 6-45 L [facility] Erythrocyte mean corpuscular volume [Entitic volume] by Auto mated count 82.6 fL 80-96 [facility] Erythrocyte mean corpuscular hemoglobin [Entitic mass] by Automated count 28.4 pg 27-33 [facility] Erythrocyte mean corpuscular hemoglobin concentration [Mass/volume] by Automated count 34.4 g/[facility].0[facility] width [Ratio] by Automated count 14.7 % 11.5-14.5 H [facility] Platelets [#/volume] in Blood by Automated count 227 10*3/uL 150-400 [facility] Differential cell count method - Blood [facility] Neutrophils/100 leukocytes in Blood by Automated count 76 % [facility] Lymphocytes/100 leukocytes in Blood by Automated count 12 % [facility] Monocytes/100 leukocytes in Blood by Automated count 8 % [facility] Eosinophils/100 leukocytes in Blood by Automated count 3 % [facility] Basophils/100 leukocytes in Blood by Automated count 1 % [facility] Neutrophils [#/volume] in Blood by Automated count 7.79 10*3/uL 1.8-7 .0 H [facility] Lymphocytes [#/volume] in Blood by Automated count 1.23 10*3/uL 1.2-4 .0 [facility] Monocytes [#/volume] in Blood by Automated count 0.76 10*3/uL 0-0.8 [facility] Eosinophils [#/volume] in Blood by Automated count 0.31 10*3/uL 0-0.5 [facility] Basophils [#/volume] in Blood by Automated count 0.06 10*3/uL 0-0.2 [facility] Nucleated erythrocytes/100 leukocytes [Ratio] in Blood by Automated count 0 /100{WBCs} 0-0 [facility] ID Date Data Source [id number] 01/19/2021 06:53:53 AM EDT [facility] Name Value Range Interpretation Code Description Data Tyra rce(s) Supporting Document(s) Bicarbonate [Moles/volume] in Serum 26 mmol/L 22-29 [facility] Chloride [Moles/volume] in Serum or Plasma 95 mmol/L 98-107 L [facility] Creatinine [Mass/volume] in Serum or Plasma 2.17 mg/dL 0.50-0.90 [facility] Glucose [Mass/volume] in Serum or Plasma 227 mg/dL 70-140 [facility] Potassium [Moles/volume] in Serum or Plasma 3.3 mmol/L 3.4-5.1 [facility] Sodium [Moles/volume] in Serum or Plasma 135 mmol/L 136-145 L [facility] Urea nitrogen [Mass/volume] in Serum or Plasma 58 mg/dL 8-23 [facility] Anion gap 3 in Serum or Plasma 14 mmol/L 8-15 [facility] Osmolality of Serum or Plasma by calculation 303 mosm/kg 275-300 H [facility] Creatinine/Urea nitrogen [Mass Ratio] in Serum or Plasma 27 [facility] Calcium [Mass/volume] in Serum or Plasma 9.5 mg/dL 8.8-10.2 [facility] Glomerular filtration rate/1.73 sq M pre dicted among non-blacks [Volume Rate/Area] in Serum or Plasma by Creatinine-based formula (MDRD) 22 mL/min/1.73m2 >60 L [facility] Glomerular filtration rate/1.73 sq M pre dicted among blacks [Volume Rate/Area] in Serum or Plasma by Creatinine-based formula (MDRD) 26 mL/min/1.73m2 >60 L [facility] ID Date Data Source [id number] 01/18/2021 10:34:[address] [facility] Name Value Range Interpretation Code Description Data Tyra rce(s) Supporting Document(s) Glucose [Mass/volume] in Capillary blood by Glucometer 308 mg/dL 70- 140 H [facility] ID Date Data Source [id number] 01/18/2021 05:37:19 PM [facility] Value Range Interpretation Code Description Data Tyra rce(s) Supporting Document(s) Glucose [Mass/volume] in Capillary blood by Glucometer 157 mg/dL 70- 140 H [facility] ID Date Data Source [id number] 01/18/2021 12:33:20 PM [facility] Value Range Interpretation Code Description Data Tyra rce(s) Supporting Document(s) Glucose [Mass/volume] in Capillary blood by Glucometer 229 mg/dL 70- 140 H [facility] ID Date Data Source [id number] 01/18/2021 09:10:33 AM [facility] Value Range Interpretation Code Description Data Tyra rce(s) Supporting Document(s) [facility] AVPFBz6bGwDGMaEh13/AVFeyNOOrv6SrNBhvFEo0OBlyCEHtS6XrOOP3yT9aJNY7ZFnCQiTnHoKzIJVq m [file] 2k8/0FH6h/FPWdKnqDqYRQ04GBSxghiAficP2ya1uSGHK2O0w1zMq/Wp+h79Q+V3upLpzPy/ckP9g/ULTRASOUND APPLICATIONS SPECIALIST [file] ICAgICAgICAgICAgICAgICAgICAgICAgICAgICAgIC AgICAgICAgICAgICAgICAgICAgICAgICAgICAgICAgICAgDQogICAgICAgICAgICAgICAgICAgICAgIC AgICAgICAgICAgICAgICAgICAgICAgICAgICAgICAgICAgICAgICAgICAgICAgICAgICAgICAgICAgIC AgICAgICAgICAgICAgICAgDQogICAgICAgICAgICAg ICAgICAgICAgICAgICAgICAgICAgICAgICAgICAgICAgICAgICAgICAgICAgICAgICAgICAgICAgICAg ICAgICAgICAgICAgICAgICAgICAgICAgICAgDQogICAgICAgICAgICAgICAgICAgICAgICAgICAgICAg ICAgICAgICAgICAgICAgICAgICAgICAgICAgICAgIC AgICAgICAgICAgICAgICAgICAgICAgICAgICAgICAgICAgICAgDQogICAgICAgICAgICAgICAgICAgIC AgICAgICAgICAgICAgICAgICAgICAgICAgICAgICAgICAgICAgICAgICAgICAgICAgICAgICAgICAgIC AgICAgICAgICAgICAgICAgICAgDQogICAgICAgICAg ICAgICAgICAgICAgICAgICAgICAgICAgICAgICAgICAgICAgICAgICAgICAgICAgICAgICAgICAgICAg ICAgICAgICAgICAgICAgICAgICAgICAgICAgICAgDQogICAgICAgICAgICAgICAgICAgICAgICAgICAg ICAgICAgICAgICAgICAgICAgICAgICAgICAgICAgIC AgICAgICAgICAgICAgICAgICAgICAgICAgICAgICAgICAgICAgICAgDQogICAgICAgICAgICAgICAgIC AgICAgICAgICAgICAgICAgICAgICAgICAgICAgICAgICAgICAgICAgICAgICAgICAgICAgICAgICAgIC AgICAgICAgICAgICAgICAgICAgICAgDQogICAgICAg ICAgICAgICAgICAgICAgICAgICAgICAgICAgICAgICAgICAgICAgICAgICAgICAgICAgICAgICAgICAg ICAgICAgICAgICAgICAgICAgICAgICAgICAgICAgICAgDQogICAgICAgICAgICAgICAgICAgICAgICAg ICAgICAgICAgICAgICAgICAgICAgICAgICAgICAgIC FyVOQaYJTzBTMnJMYkGFBxIEZcQZZpKSZcXDYsOMHmDCEwOFLtSSQwRMLgGVt4K0tzCMZaXUIpGY2tKK d3Jz8+LHvVClBwEAJ2krDtrW3QZW8ll1FnUGgxZNBmz2FmFGu5KA9VZRSuLDnlWA1KELdxpw4HYNKxMF YkiPNLp1vcCvFaMUB7NGXqKvxdFC1BYXIhU4zcyaBr YZUmOUTGHMvjKHMVMZbeYKWCBPVaVOFsAnJgXiEpQLSpVKWxKBPPMII3ZMGyBuJkVRjoRF8Vp0LvfGU3 DQo+Hf2ZQO5qr8KuHHa4TnXfVK5vkg4AGCtZRqUxH0JkhdU2HKOkNSSmVu2DPFHvKXZzaGQ2AxLrDSGJ KmXuD7LniM64RWUCWl5+DQplbmRvYmoNCjQzIDAgb2 QjGNn0TX7HWEXrOYq4pOUjL48ol8AowUGwTrxmLvZlQUGFP9bwjtcmJVEHAIKdxQA1UkG3LxIqLhEfEY L1HKxdZR4pCBdaNY5CHOE5CSqhSIGgSRBcF9xGGcCnCMMfKlNxiXrrNR6VZtJuS1OgslJktWJ4AmZpLF INCj4+SLlmibVuIkoZJhU7THWmq8NhAWv3MG6OZHKi DNswFY2OKLIlhZ2uMQcfJD4XXvH1WGQzVTBOAcDwN53lnIBpZZi1H2OuFrWeRNMbWgkcNFUlNDwwTsNc ZXMgWyBdDQogID4+ID4+LYccNB8UIIvvidVzQXFcQp7CZFGsITJkQJ0nTWYuIHKbJ0H5yRumHTOENoNo V2rzeowlLF8qDZPjP212oNreujWmLTWnNOPeGb3XSC OoMEY7NKKzaUAjRWFyNBRPYBnqTY5OeBUvLZH0sR8zVNrrXHDtDRViG8sZQnQiySwvGK49hJconcOnlK BdDQo+Zv3AUC5nq7FzMCt1dfMsYSoiNTV9QHxaFVJpPTIrFWWwIJV2NYE8JBLEDdDiCUOyOTEnHQdeQD SkBQIthf2BZVCkAQL3IPVbBAAqTXJzFBLbCWdpGSVg LAI2JMugKNBrYWScNN1ILaMjPOErGWGbRAfkPWMuESCytm0LHYReGFXgFqs5TeNkLLGdGBCoFNkeQQCc NON7BGSeVXBhKIJdSI2LIdGzIJUuARX5WqOeZZZmHKRcqh4MOMXxNSEgBesvVlInPJHySSHgJWbvPDBn HJTqYlL1CVFdDHJrSQ6MRuQgYFQaMMH4TMixDQRsWP Ycxy9TRZRbJNPjBoS7SSEfJKPyCXVoCHbkYWVqGZHiIIevPBGoWYPoYN4LDaNqXXDdMBO7DYRoLKHcXH Uomk9RSFNtCRGcWvF2XOWxQNVaSLWwXYmnPSErFOFhBwWsFAUzVNDbWF3PCvFeMJOrBkD1EvdjVTSbMH Estb8YNBKeDIQnXnJeEJLwCHHsQKYaCPcxFLMlRIXs XdEoCFIvZFLuCN5VWeEkIVZyUjUeVSSzMJIvGNZwji1MGWFfYOOvYLE0IUExATZbBROnGBivLARuCUU9 FGlwCFNfHBDeVG8JIbYtBKVuStI0TgGhKXOtVRWpzl5JXBEfTSFzFCtcOyLrEEEfOPJfGKpdMCHeOWZ2 DXPuXIXbJDGxRT7ZZeEjPYYaGbH7CAYrANMrFVDart 7ZMIHtDYAlSfX8RmGqLTKnDOUwNPycYTVaEZA2AhBpGJApDHBvJF0HLcUgIVEcCzbfPJqwUQCaPUPrfp 2UOAPaTGSbGWFqXQYcXEJhGSDmRLyeOSJoSMM6PxW5PPWsHRIcKK4TOcVjRWFfCCFqLDzxMRAlZDNxwg 9LQNRpYRS4GIA9SgOeCNAtGYUbTPcnKIPyITTdRLle EGKoFNHuXN9QQcLzUCObYVC8NjXmJJMbEANbkq4XWBIrFCU0BYj4GmZoXHZnFJOyTHehISQpFQIcMord FAAaMDYiNA5ISrMbXHCbEOR7WNSgNDPuJFXqrw4YLQJfYOJ1QmgbOgQbVRSfIYJuNTbpHJOlYQW8YLRd IPOeUCGmNQ8OUuHlKCCrVGKzNQGwCJZjAIOlot5RGA DcERO4QRT4LDOyLNDgQMPlNQirEKKmHEJ9UKL4WHSpMUHfUF9UKoXsQYPuSGBrRJPsWNRaCYEyrr9UAV AlULE1DgW6PPJdHNEvYRKvIVz9muQueYPsZCn4CF3DH8SjksUvNEUCKa8Cp949UWA2EIJdDd1NT1zfUp 7cUWUiSBDEPv7OPWe1TTpnYbA0BGYmQDL6QWZ4ZfCa JNDrRXY6ENWvHWX3UNQ+ZRyrFCV7ENW2GZEmHFg9ADQaUKNyAwNuUKYoOxRcDlp1Ob0bTXZMUh9+DQpz fLRsrMhhEJFRIvG5SNd2QFlmUDQKOh7R ID Date Data Source [id number] 01/18/2021 08:50:30 AM EDT [facility] Value Range Interpretation Code Description Data Tyra rce(s) Supporting Document(s) Glucose [Mass/volume] in Capillary blood by Glucometer 205 mg/dL 70- 140 H [facility] ID Date Data Source [id number] 01/18/2021 04:56:26 AM EDT [facility] Value Range Interpretation Code Description Data Tyra rce(s) Supporting Document(s) Parathyrin.intact [Mass/volume] in Serum or Plasma 117 pg/mL 15-65 [facility] ID Date Data Source [id number] 01/18/2021 04:30:30 AM EDT [facility] Value Range Interpretation Code Description Data Tyra rce(s) Supporting Document(s) Leukocytes [#/volume] in Blood by Automated count 9.8 10*3/uL 4-10 [facility] Erythrocytes [#/volume] in Blood by Automated count 3.19 10*6/uL 4.1- 5.3 L [facility] Hemoglobin [Mass/volume] in Blood 9.0 g/dL 11.5-15.5 L [facility] Hematocrit [Volume Fraction] of Blood by Automated count 26.7 % 3 6-45 L [facility] Erythrocyte mean corpuscular volume [Entitic volume] by Auto mated count 83.5 fL 80-96 [facility] Erythrocyte mean corpuscular hemoglobin [Entitic mass] by Automated count 28.3 pg 27-33 [facility] Erythrocyte mean corpuscular hemoglobin concentration [Mass/volume] by Automated count 33.9 g/dL 32.0-36.[facility] width [Ratio] by Automated count 14.7 % 11.5-14.5 [facility] Platelets [#/volume] in Blood by Automated count 185 10*3/uL 150-400 [facility] Differential cell count method - Blood [facility] Neutrophils/100 leukocytes in Blood by Automated count 77 % [facility] Lymphocytes/100 leukocytes in Blood by Automated count 13 % [facility] Monocytes/100 leukocytes in Blood by Automated count 6 % [facility] Eosinophils/100 leukocytes in Blood by Automated count 3 % [facility] Basophils/100 leukocytes in Blood by Automated count 1 % [facility] Neutrophils [#/volume] in Blood by Automated count 7.60 10*3/uL 1.8-7 .0 H [facility] Lymphocytes [#/volume] in Blood by Automated count 1.23 10*3/uL 1.2-4 .0 [facility] Monocytes [#/volume] in Blood by Automated count 0.54 10*3/uL 0-0.8 [facility] Eosinophils [#/volume] in Blood by Automated count 0.32 10*3/uL 0-0.5 [facility] Basophils [#/volume] in Blood by Automated count 0.08 10*3/uL 0-0.2 [facility] Nucleated erythrocytes/100 leukocytes [Ratio] in Blood by Automated count 0 /100{WBCs} 0-0 [facility] ID Date Data Source [id number] 01/18/2021 04:37:52 AM EDT [facility] Name Value Range Interpretation Code Description Data Tyra rce(s) Supporting Document(s) Bicarbonate [Moles/volume] in Serum 23 mmol/L 22-29 [facility] Chloride [Moles/volume] in Serum or Plasma 99 mmol/L 98-107 [facility] Creatinine [Mass/volume] in Serum or Plasma 2.33 mg/dL 0.50-0.90 [facility] Glucose [Mass/volume] in Serum or Plasma 237 mg/dL 70-140 H [facility] Potassium [Moles/volume] in Serum or Plasma 3.5 mmol/L 3.4-5.1 [facility] Sodium [Moles/volume] in Serum or Plasma 132 mmol/L 136-145 L [facility] Urea nitrogen [Mass/volume] in Serum or Plasma 67 mg/dL 8-23 H [facility] Anion gap 3 in Serum or Plasma 9 mmol/L 8-15 [facility] Osmolality of Serum or Plasma by calculation 301 mosm/kg 275-300 H [facility] Creatinine/Urea nitrogen [Mass Ratio] in Serum or Plasma 29 [facility] Calcium [Mass/volume] in Serum or Plasma 9.0 mg/dL 8.8-10.2 [facility] Glomerular filtration rate/1.73 sq M pre dicted among non-blacks [Volume Rate/Area] in Serum or Plasma by Creatinine-based formula (MDRD) 20 mL/min/1.73m2 >60 L [facility] Glomerular filtration rate/1.73 sq M pre dicted among blacks [Volume Rate/Area] in Serum or Plasma by Creatinine-based formula (MDRD) 24 mL/min/1.73m2 >60 L [facility] ID Date Data Source [id number] 01/17/2021 09:29:[address] [facility] Name Value Range Interpretation Code Description Data Tyra rce(s) Supporting Document(s) Glucose [Mass/volume] in Capillary blood by Glucometer 284 mg/dL 70- 140 H [facility] ID Date Data Source [id number] 01/17/2021 09:31:36 PM [facility] Value Range Interpretation Code Description Data Tyra rce(s) Supporting Document(s) Leukocytes [#/volume] in Blood by Automated count 9.8 10*3/uL 4-10 [facility] Erythrocytes [#/volume] in Blood by Automated count 3.11 10*6/uL 4.1- 5.3 L [facility] Hemoglobin [Mass/volume] in Blood 9.0 g/dL 11.5-15.5 [facility] Hematocrit [Volume Fraction] of Blood by Automated count 25.9 % 3 6-45 L [facility] Erythrocyte mean corpuscular volume [Entitic volume] by Auto mated count 83.1 fL 80-96 [facility] Erythrocyte mean corpuscular hemoglobin [Entitic mass] by Automated count 28.8 pg 27-33 [facility] Erythrocyte mean corpuscular hemoglobin concentration [Mass/volume] by Automated count 34.7 g/dL 32.0-36.0 [facility] Erythrocyte distribution width [Ratio] by Automated count 14.5 % 11.5-14.5 [facility] Platelets [#/volume] in Blood by Automated count 169 10*3/uL 150-400 [facility] ID Date Data Source [id number] 01/17/2021 05:32:09 PM [facility] Value Range Interpretation Code Description Data Tyra rce(s) Supporting Document(s) Glucose [Mass/volume] in Capillary blood by Glucometer 286 mg/dL 70- 140 [facility] ID Date Data Source [id number] 01/17/2021 12:21:19 PM [facility] Value Range Interpretation Code Description Data Tyra rce(s) Supporting Document(s) Glucose [Mass/volume] in Capillary blood by Glucometer 314 mg/dL 70- 140 [facility] ID Date Data Source [id number] 01/17/2021 08:46:18 AM [facility] Value Range Interpretation Code Description Data Tyra rce(s) Supporting Document(s) Glucose [Mass/volume] in Capillary blood by Glucometer 311 mg/dL 70- 140 [facility] ID Date Data Source [id number] 01/17/2021 07:29:51 AM [facility] Value Range Interpretation Code Description Data Tyra rce(s) Supporting Document(s) Troponin T.cardiac [Mass/volume] in Serum or Plasma 0.25 ng/mL <0.01 [facility] No Significant Change Since Last Result Called ID Date Data Source [id number] 01/17/2021 07:55:13 AM EDT [facility] Name Value Range Interpretation Code Description Data Tyra rce(s) Supporting Document(s) Bicarbonate [Moles/volume] in Serum 21 mmol/L 22-29 L [facility] Chloride [Moles/volume] in Serum or Plasma 96 mmol/L 98-107 L [facility] Creatinine [Mass/volume] in Serum or Plasma 2.62 mg/dL 0.50-0.90 H [facility] Glucose [Mass/volume] in Serum or Plasma 330 mg/dL 70-140 H [facility] Potassium [Moles/volume] in Serum or Plasma 3.7 mmol/L 3.4-5.1 [facility] Sodium [Moles/volume] in Serum or Plasma 131 mmol/L 136-145 L [facility] Urea nitrogen [Mass/volume] in Serum or Plasma 69 mg/dL 8-23 H [facility] Anion gap 3 in Serum or Plasma 14 mmol/L 8-15 [facility] Osmolality of Serum or Plasma by calculation 305 mosm/kg 275-300 H [facility] Creatinine/Urea nitrogen [Mass Ratio] in Serum or Plasma 26 [facility] Calcium [Mass/volume] in Serum or Plasma 8.4 mg/dL 8.8-10.2 L [facility] Glomerular filtration rate/1.73 sq M pre dicted among non-blacks [Volume Rate/Area] in Serum or Plasma by Creatinine-based formula (MDRD) 18 mL/min/1.73m2 >60 L [facility] Glomerular filtration rate/1.73 sq M pre dicted among blacks [Volume Rate/Area] in Serum or Plasma by Creatinine-based formula (MDRD) 21 mL/min/1.73m2 >60 [facility] ID Date Data Source [id number] 01/17/2021 07:58:27 AM EDT [facility] Value Range Interpretation Code Description Data Tyra rce(s) Supporting Document(s) Leukocytes [#/volume] in Blood by Automated count 9.0 10*3/uL 4-10 [facility] Erythrocytes [#/volume] in Blood by Automated count 2.57 10*6/uL 4.1- 5.3 [facility] Hemoglobin [Mass/volume] in Blood 7.4 g/dL 11.5-15.5 [facility] Hematocrit [Volume Fraction] of Blood by Automated count 21.8 % 3 6-45 [facility] Erythrocyte mean corpuscular volume [Entitic volume] by Auto mated count 84.8 fL 80-96 [facility] Erythrocyte mean corpuscular hemoglobin [Entitic mass] by Automated count 28.7 pg 27-33 [facility] Erythrocyte mean corpuscular hemoglobin concentration [Mass/volume] by Automated count 33.8 g/dL 32.0-36.0 [facility] Erythrocyte distribution width [Ratio] by Automated count 13.9 % 11.5-14.5 [facility] Platelets [#/volume] in Blood by Automated count 160 10*3/uL 150-400 [facility] Differential cell count method - Blood [facility] Neutrophils/100 leukocytes in Blood by Automated count 79 % [facility] Lymphocytes/100 leukocytes in Blood by Automated count 16 % [facility] Monocytes/100 leukocytes in Blood by Automated count 3 % [facility] Eosinophils/100 leukocytes in Blood by Automated count 1 % [facility] Neutrophils [#/volume] in Blood by Automated count 7.09 10*3/uL 1.8-7 .0 H [facility] Lymphocytes [#/volume] in Blood by Automated count 1.47 10*3/uL 1.2-4 .0 [facility] Monocytes [#/volume] in Blood by Automated count 0.26 10*3/uL 0-0.8 [facility] Eosinophils [#/volume] in Blood by Automated count 0.09 10*3/uL 0-0.5 [facility] Metamyelocytes/100 leukocytes in Blood by Manual count 1 % [facility] Metamyelocytes [#/volume] in Blood by Manual count 0.09 10*3/uL 0-0 [facility] ID Date Data Source [id number] 01/17/2021 03:09:[address] [facility] Name Value Range Interpretation Code Description Data Tyra rce(s) Supporting Document(s) Troponin T.cardiac [Mass/volume] in Serum or Plasma 0.25 ng/mL <0.01 [facility] No Significant Change since last result called ID Date Data Source [id number] 01/17/2021 02:49:[address] [facility] Name Value Range Interpretation Code Description Data Tyra rce(s) Supporting Document(s) Leukocytes [#/volume] in Blood by Automated count 9.4 10*3/uL 4-10 [facility] Erythrocytes [#/volume] in Blood by Automated count 2.60 10*6/uL 4.1- 5.3 L [facility] Hemoglobin [Mass/volume] in Blood 7.5 g/dL 11.5-15.5 L [facility] Hematocrit [Volume Fraction] of Blood by Automated count 21.9 % 3 6-45 L [facility] Erythrocyte mean corpuscular volume [Entitic volume] by Auto mated count 84.2 fL 80-96 [facility] Erythrocyte mean corpuscular hemoglobin [Entitic mass] by Automated count 28.8 pg 27-33 [facility] Erythrocyte mean corpuscular hemoglobin concentration [Mass/volume] by Automated count 34.2 g/dL 32.0-36.0 [facility] Erythrocyte distribution width [Ratio] by Automated count 13.9 % 11.5-14.5 [facility] Platelets [#/volume] in Blood by Automated count 167 10*3/uL 150-400 [facility] Differential cell count method - Blood [facility] Neutrophils/100 leukocytes in Blood by Automated count 72 % [facility] Lymphocytes/100 leukocytes in Blood by Automated count 16 % [facility] Monocytes/100 leukocytes in Blood by Automated count 7 % [facility] Eosinophils/100 leukocytes in Blood by Automated count 4 % [facility] Basophils/100 leukocytes in Blood by Automated count 1 % [facility] Neutrophils [#/volume] in Blood by Automated count 6.84 10*3/uL 1.8-7 .0 [facility] Lymphocytes [#/volume] in Blood by Automated count 1.46 10*3/uL 1.2-4 .0 [facility] Monocytes [#/volume] in Blood by Automated count 0.66 10*3/uL 0-0.8 [facility] Eosinophils [#/volume] in Blood by Automated count 0.35 10*3/uL 0-0.5 [facility] Basophils [#/volume] in Blood by Automated count 0.09 10*3/uL 0-0.2 [facility] Nucleated erythrocytes/100 leukocytes [Ratio] in Blood by Automated count 0 /100{WBCs} 0-0 [facility] ID Date Data Source [id number] 01/16/2021 08:25:58 PM EDT [facility] Name Value Range Interpretation Code Description Data Tyra rce(s) Supporting Document(s) Glucose [Mass/volume] in Capillary blood by Glucometer 299 mg/dL 70- 140 H [facility] ID Date Data Source [id number] 01/16/2021 08:44:17 PM EDT [facility] Name Value Range Interpretation Code Description Data Tyra rce(s) Supporting Document(s) Troponin T.cardiac [Mass/volume] in Serum or Plasma 0.25 ng/mL <0.01 [facility] No Significant Change since last result called ID Date Data Source [id number] 01/16/2021 05:39:45 PM EDT [facility] Value Range Interpretation Code Description Data Tyra rce(s) Supporting Document(s) Glucose [Mass/volume] in Capillary blood by Glucometer 331 mg/dL 70- 140 [facility] ID Date Data Source [id number] 01/16/2021 03:22:23 PM EDT [facility] Value Range Interpretation Code Description Data Tyra rce(s) Supporting Document(s) ED Provider Note [facility] UYRWNb3zWaJOEeSs57/PKGzjZLAhm2WgWBhiXJs4YUgkGUOgI4PyMLF9yC7fPKA5SNeVYzKsJyHaZDK2 lbm [file] ICAgICAgICAgICAgICAgICAgICAgICAgICAgICAgIC AgICAgICAgICAgICAgICAgICAgICAgICAgICAgICAgICAgICAgICAgICANCiAgICAgICAgICAgICAgIC AgICAgICAgICAgICAgICAgICAgICAgICAgICAgICAgICAgICAgICAgICAgICAgICAgICAgICAgICAgIC AgICAgICAgICAgICAgICAgICAgICAgICANCiAgICAg ICAgICAgICAgICAgICAgICAgICAgICAgICAgICAgICAgICAgICAgICAgICAgICAgICAgICAgICAgICAg ICAgICAgICAgICAgICAgICAgICAgICAgICAgICAgICAgICANCiAgICAgICAgICAgICAgICAgICAgICAg ICAgICAgICAgICAgICAgICAgICAgICAgICAgICAgIC AgICAgICAgICAgICAgICAgICAgICAgICAgICAgICAgICAgICAgICAgICAgICANCiAgICAgICAgICAgIC AgICAgICAgICAgICAgICAgICAgICAgICAgICAgICAgICAgICAgICAgICAgICAgICAgICAgICAgICAgIC AgICAgICAgICAgICAgICAgICAgICAgICAgICANCiAg ICAgICAgICAgICAgICAgICAgICAgICAgICAgICAgICAgICAgICAgICAgICAgICAgICAgICAgICAgICAg ICAgICAgICAgICAgICAgICAgICAgICAgICAgICAgICAgICAgICANCiAgICAgICAgICAgICAgICAgICAg ICAgICAgICAgICAgICAgICAgICAgICAgICAgICAgIC AgICAgICAgICAgICAgICAgICAgICAgICAgICAgICAgICAgICAgICAgICAgICAgICANCiAgICAgICAgIC AgICAgICAgICAgICAgICAgICAgICAgICAgICAgICAgICAgICAgICAgICAgICAgICAgICAgICAgICAgIC AgICAgICAgICAgICAgICAgICAgICAgICAgICAgICAN CiAgICAgICAgICAgICAgICAgICAgICAgICAgICAgICAgICAgICAgICAgICAgICAgICAgICAgICAgICAg ICAgICAgICAgICAgICAgICAgICAgICAgICAgICAgICAgICAgICAgICANCiAgICAgICAgICAgICAgICAg ICAgICAgICAgICAgICAgICAgICAgICAgICAgICAgIC AgICAgICAgICAgICAgICAgICAgICAgICAgICAgICAgICAgICAgICAgICAgICAgICAgICANCjw/eHBhY2 zoxJVapkP6M5vkZq6UFj1JQF8ch2JdBNAiLQocvfLtQaaWOdDaCTCoLmcDQtl1WYgdRC6VtEAkD0ToE1 KmVQruTC7KZISqOMZeuTCiTLUyZKWeGbS8HJWxZZvy TN7SsQEwZSfyPGWtDJExRoMcKQCpAXOlGAUeZSGkFDHHGFIzKDEaMxTsDIMsGIWwHRijYTWUOPG4SGNd FiYsOQcvAR1Wj2LwfGK7EPh+Kv2PBZ7kd3NsHFkpNjLmCB8znb5KRNbVFhWpQ9HgudV4SXF9REZaNm6J YSPuLKNyaVQ4GTQeITVQQaPeK4JxkD17HFLNTt6+DQ wxlkKfHroUOhD8FVTcf6XzRPy9JQ3RMKHlQCl4hQIjOAGlEZYcdvaaVUXpNo32XALuBbuaArlsFIMQCQ 5tcLVup9K9VWHGDnOotCB7QiK9GiMqJtDyZTO2FIagRN5eKMnzHA1ILJL3USzoZISyGJWyY8nDBnUiES luBNVweJyeFQ6FDnHsW2QzfzYkwZDrFuNqSODZYsEu M14tpZYwLcsjRJQHNSh+Uk3LOJ6lk2SzGAkuQZZjRW1ufd0FLMkDOaQxA9UzcWhkYSRBLVAau8PtEMDo PI8ydBOjXGI1UHTwJCCiTQEdSSs0KWYsuYjeOX2dXGHbCF8dPa3bFZCyUFH0SqK2VAKDZY2QFKZyCHJz xCZbVLJkRFXpYgWvECczGPBfOyC4HE80jPzySW4QVW LnWCRwFD63ELD8TZBkAa2KQJAzBBFncqSdVbZxXHCYAzSvY60onBDjMikoWLJHEGs+Jw2CDU0lz1JbDV hrKUUiHH4atb0WCGbVHvMxK1OdaYoyTNGBBN4dxWSkVQE6JDenmQgrunprJOMBVUOhJCEel98jAQQLVE I0TJEhYTPiCdFgNJPlHIq5QvGEQUnMYxDpB1Gxm0Bl AmIkPVSjEBNpH3aETyOyQJU3JIQksYsvZG0TYyCnP4SnbbBonRClKoDfUPDKPnIoZ3MvZLJzIiceJHAD RLjqKF4KHLb5RUWyVZGhWe5OOl8VLzCfHH1kmm2YLIYzEEMnZptGRsm5LZfkAX0EdZLeAYkVQGSLnpmh Y3NlCe42URYzZvhzUJWrwLDnHSKGDWVigYFoTZJFHN Q9TBYwHCTaOxGkCGRkBipqQQUSCKmTIjGjR3Nqf4EnXhAvMLCiQMTbC4iEWbQwRKB9KyDerTlaPR8UZo ZmK7TioxIdpZLbSnPgYEDTSuLuB3RxFUNtHyqoUSRFZTunCM6DSCz0WSLtDJUxQi9SKh3GLnWbAI7yha 1MLDJrEWMyAssDYww3FRuiIX5KcCQxMMqNUHWSs6Gc rgWciNJBHVNtkMADSMVhuQOuHQRJIhFraXP3JjK2XeFgMlZfNQP7NMtrLR6yUBcxYK7XLBK6KRteVKyk UJSSRF5NAUfpQHFnYLEotjSitXCjKMpaMV3XVXYemtPeByEqLNUCPYoyAH3MxlH3PUHsEKJfDx1WNj1H MdKxVF5pbo9OUYOxNXFbThfBHvi8BGvfES6OzOFaT1 IekHWum8fTDvZhE3KKQPM8WYMpYu9HGEUpBmJsRRNoTRjaAF4hQBLvFEUEaEagfkB6HQ5FEG7vqbIgKT 1HUrYjJz0kLd8OCaVhP6ScX4ZmUGXtISQYPHuiWA5VUFqdBS7nQK9Yi6SCxNMsuT5rdw3JHFOeWOJsGj cyuw4GYtlyV5E6zDjjPIKsGmZpFYFTZKmgFY7IMBRz YXI2BHDoLNXuQVIJByDhQ00oBT7SB7Zdl34bRfZ2ZUPcAyQfWDcjJL09dJcgklXbmZNdrBitGZ9PNn0+ DCvzkiVqDvsBJeomZVMDAjJjIBLLIjVnYKUeGMKtTAIdPtZ5ClVeQe9YFNZsMCKfHIXmRhQiIPWxVONs NHuqEUErFYKxKxP1OLNsRORsXF1BFmHqNHRcETBmAc OfXJSiHZKixs4YVZEtEAMcXNS7LvNeARFeZBCsAAdbIAQjJFQdCwQhWLSvPAGwKT1LSkChCMAfEHJ7Pk EnFLUbEWWqas9AEWRbNVNaXPT7JRLrVCHyYEQjMKjuCUWzCHR6Wmr8LZOdHZKyRC0SVnGpKOQcAPh3MC ptINFqRILrci9QAWPoLORaGOAvQeHaRPOpITSoVIkg QMGpMYGaROR1YPLbDASfJK5UYfTlGIEnIPFeGMHeHSCvNHVlyk9KNHWhOTCxHVn7YAOnLCGxBASoZWfq QDWnPMI1HUw8LFHcQMWhEK5SQbHeSQQuEWu3IAubNNUuRMDjlq0VUYUlZIIdPxhrJOFqPEQhXOTkFXln EBEhAMAqPBN5AEAbQEUzRE3ZJvPgHIXcSoPyGpWbAS YjUAEcdu9PMVInYIAfGxwwRJBjWUCxEEPjCQkfTWGmBRXdMJM3CEZvABRpTA8WUtLnALFoWsJ2UfVkYH AyMELsuj2QTHZeXCDiMYY3ZcTkBXXyVQWoCNacJKTwSNR0ZvZ3UOKiABZhYV8VInHaAHIvHfUfUIUpJF JrZJHztn5LMDIoXCMbOiLsQoLkVVVwQYGfJRklLNWw OPY5EuD9QUObJTSfXK9HIaNvQEJaMzx0SyBxLPUlQXEdmj9VUFSjATYjQdd5BMBcRATiEFRzXDpcNTZm LVB5MRT7UJJmQFMqOT7SCeOoFGAdAmyfRrXtRBKbQWYdfc9DVEPiBTMpQIG4BGUcEJWlEUOjUDquHZXm JIA4LUX7RXWhLWSqVP8XNjIyRLGwUIOxKVqmLMHoYC Yzmy4GUBQwLWX0KYXrVAOlLAPjQTKuMBlbDULrKJQfShErLJBnTNRePW3ZWsBaUIRnQDWwLHTlRNUmTK Pxtg3WJWAqLLO1JdF5OfNlIXJoNGYiZNyiHRZaDIVjVBF2GBMhLIKeJQ2BPuKnOHGuPGV4XpQuDGDiAP Kjfv7CUPZxPAJ4TmslMgMrBLVvRJDlBIpoHJWkVWVz QLy7DIUvZBTuBA6JWyTlEBUsPBZrKGBcJLYvLJHqzt5TnHKpzQylvv7REBbICe4QoPxhVMGsNCadXd2m sKQ8TiZtJSHPUk4RqwRiWACjQFJZVYcfVGRsKAzqN3D6SDJ0TWVpZQZaHgFuASH6JBe6XIQ0VIHgARQw UpK4ZbSsLUBzTpcvJGNbJOJ2IPLqQvixZCW7ChUfDM I5MTE+VA4iXIm+Bw8Ty4KdidN0urHqELy0BrR1PU1JKUKVE9FBHx== ID Date Data Source [id number] 01/16/2021 12:56:16 PM T [facility] Name Value Range Interpretation Code Description Data Tyra rce(s) Supporting Document(s) [facility] [id number]Y1B4aOImH3EkmCWbg6nlA6LhA0UiZCHdUNOJAM9HmPTh jb2 [file] [id number] ID Date Data Source [id number] 01/16/2021 01:35:16 PM EDT [facility] Name Value Range Interpretation Code Description Data Tyra rce(s) Supporting Document(s) Leukocytes [#/volume] in Blood by Automated count 10.1 10*3/uL 4-10 H [facility] Erythrocytes [#/volume] in Blood by Automated count 2.75 10*6/uL 4.1- 5.3 L [facility] Hemoglobin [Mass/volume] in Blood 7.8 g/dL 11.5-15.5 L [facility] Hematocrit [Volume Fraction] of Blood by Automated count 23.3 % 3 6-45 L [facility] Erythrocyte mean corpuscular volume [Entitic volume] by Auto mated count 84.8 fL 80-96 [facility] Erythrocyte mean corpuscular hemoglobin [Entitic mass] by Automated count 28.5 pg 27-33 [facility] Erythrocyte mean corpuscular hemoglobin concentration [Mass/volume] by Automated count 33.6 g/dL 32.0-36.[facility] distribution width [Ratio] by Automated count 13.8 % 11.5-14.5 [facility] Platelets [#/volume] in Blood by Automated count 171 10*3/uL 150-400 [facility] Differential cell count method - Blood [facility] Neutrophils/100 leukocytes in Blood by Automated count 74 % [facility] Lymphocytes/100 leukocytes in Blood by Automated count 16 % [facility] Monocytes/100 leukocytes in Blood by Automated count 6 % [facility] Eosinophils/100 leukocytes in Blood by Automated count 3 % [facility] Basophils/100 leukocytes in Blood by Automated count 1 % [facility] Neutrophils [#/volume] in Blood by Automated count 7.51 10*3/uL 1.8-7 .0 H [facility] Lymphocytes [#/volume] in Blood by Automated count 1.58 10*3/uL 1.2-4 .0 [facility] Monocytes [#/volume] in Blood by Automated count 0.61 10*3/uL 0-0.8 [facility] Eosinophils [#/volume] in Blood by Automated count 0.28 10*3/uL 0-0.5 [facility] Basophils [#/volume] in Blood by Automated count 0.07 10*3/uL 0-0.2 [facility] Nucleated erythrocytes/100 leukocytes [Ratio] in Blood by Automated count 0 /100{WBCs} 0-0 [facility] ID Date Data Source [id number] [facility] Interpretation Code Description Data Tyra rce(s) Supporting Document(s) Erythrocyte sedimentation rate 54 mm/hr <30 H [facility] ID Date Data Source [id number] 01/16/2021 02:35:[address] [facility] Name Value Range Interpretation Code Description Data Tyra rce(s) Supporting Document(s) Albumin [Mass/volume] in Serum or Plasma by Bromocresol green (BCG) dye binding method 3.4 g/dL 3.5-5.2 [facility] Bilirubin.total [Mass/volume] in Serum or Plasma 0.4 mg/dL <1.2 [facility] Calcium [Mass/volume] in Serum or Plasma 8.4 mg/dL 8.8-10.2 L [facility] Chloride [Moles/volume] in Serum or Plasma 99 mmol/L 98-107 [facility] Creatinine [Mass/volume] in Serum or Plasma 2.86 mg/dL 0.50-0.90 H [facility] Glucose [Mass/volume] in Serum or Plasma 205 mg/dL 70-140 H [facility] Alkaline phosphatase [Enzymatic activity/volume] in Serum or Plasma 79 U/L 35-104 [facility] Potassium [Moles/volume] in Serum or Plasma 3.7 mmol/L 3.4-5.1 [facility] Protein [Mass/volume] in Serum or Plasma 6.2 g/dL 6.4-8.3 L [facility] Sodium [Moles/volume] in Serum or Plasma 135 mmol/L 136-145 L [facility] Aspartate aminotransferase [Enzymatic activity/volume] in Serum or Plasma 22 U/L <32 [facility] Urea nitrogen [Mass/volume] in Serum or Plasma 59 mg/dL 8-23 H [facility] Osmolality of Serum or Plasma by calculation 302 mosm/kg 275-300 H [facility] Creatinine/Urea nitrogen [Mass Ratio] in Serum or Plasma 21 [facility] Bicarbonate [Moles/volume] in Serum 23 mmol/L 22-29 [facility] Alanine aminotransferase [Enzymatic activity/volume] in Seru m or Plasma 15 U/L <33 [facility] Anion gap 3 in Serum or Plasma 13 mmol/L 8-15 [facility] Glomerular filtration rate/1.73 sq M pre dicted among non-blacks [Volume Rate/Area] in Serum or Plasma by Creatinine-based formula (MDRD) 16 mL/min/1.73m2 >60 L [facility] Glomerular filtration rate/1.73 sq M pre dicted among blacks [Volume Rate/Area] in Serum or Plasma by Creatinine-based formula (MDRD) 18 mL/min/1.73m2 >60 L [facility] ID Date Data Source [id number] 01/16/2021 02:35:52 PM [facility] Value Range Interpretation Code Description Data Tyra rce(s) Supporting Document(s) C reactive protein [Mass/volume] in Serum or Plasma 90.7 mg/L <8.0 H [facility] ID Date Data Source [id number] 01/16/2021 02:35:52 PM [facility] Value Range Interpretation Code Description Data Tyra rce(s) Supporting Document(s) Troponin T.cardiac [Mass/volume] in Serum or Plasma 0.28 ng/mL <0.01 [facility] No Significant Change Since Last Result Called ID Date Data Source [id number] 01/16/2021 01:35:25 PM [facility] Value Range Interpretation Code Description Data Tyra rce(s) Supporting Document(s) Lactate [Moles/volume] in Serum or Plasma 1.2 mmol/l 0.5-2.2 [facility] ID Date Data Source [id number] 01/16/2021 12:14:[address] [facility] Name Value Range Interpretation Code Description Data Tyra rce(s) Supporting Document(s) Glucose [Mass/volume] in Capillary blood by Glucometer 166 mg/dL 70- 140 H [facility] ID Date Data Source [id number] [facility]/16[facility] [id number] RESU LTInterpreted by:CATINA Reedrocedure: CT scan of [...] rce(s) Supporting Document(s) ID Date Data Source [id number] 01/16/2021 08:46:[address] [facility] Name Value Range Interpretation Code Description Data Tyra rce(s) Supporting Document(s) [facility] RRWTZr2qCgBODdXe89/JCKtcCUPxs0BbGXqaFJc9DZtzGITvP1RtLBG6zN7uIGX9FMtOUnQbTeWbVQL9 lbm [file] AgICAgICAgICAgICAgICAgICAgICAgICAgICAgICAgICAgICAgICAgICAgICAgICAgICAgICAgICAgIC AsGO2VCUHoPFBdKXTuLXSvLVByTWMtPPOdCNMeMZTh ICAgICAgICAgICAgICAgICAgICAgICAgICAgICAgICAgICAgICAgICAgICAgICAgICAgICAgICAgICAg GGKjPFWsOJIbYQZoQQ3EHZEhWQPxQMJjMJDfNHBtANYeJANrWTVaUTRvKBHxZAUnTVWsVWNyXCGoDPOq ICAgICAgICAgICAgICAgICAgICAgICAgICAgICAgIC UiNSPpMJTtTDJuCLWtOHYfYTCzYQTkOJ5KCSQwGIBaJDByJFIcZYRoCQYvKUMcRDPdOMNjHGNeCUHtOA AgICAgICAgICAgICAgICAgICAgICAgICAgICAgICAgICAgICAgICAgICAgICAgICAgICAgICAgICAgIC YwJZIeUB6MHNSgRROxIXIdIVUySMQvAJHiSQBmGZWq ICAgICAgICAgICAgICAgICAgICAgICAgICAgICAgICAgICAgICAgICAgICAgICAgICAgICAgICAgICAg PIGaIVEfHHYvJZGdOVUbQM1GJXQkJUYeYASjXTMxNSPnNWVdFFZcNSYxPYUgCHDiRYLyRSWcMBTtZZLf ICAgICAgICAgICAgICAgICAgICAgICAgICAgICAgIC NiRMViUOMmAGIrCIWySFRrPUAnHWAvPWXuIG4NIKQvUVPeKOCyHOVhQYRnFUXrZZNkKWOhVUGxGTRzIW AgICAgICAgICAgICAgICAgICAgICAgICAgICAgICAgICAgICAgICAgICAgICAgICAgICAgICAgICAgIC OrDCQoZZJmHK2CTWFdEJGeUWNdCHRxFIHcRUCpXRAr ICAgICAgICAgICAgICAgICAgICAgICAgICAgICAgICAgICAgICAgICAgICAgICAgICAgICAgICAgICAg RPAmYITsNDHuECUcLGPdKTNcYY7GMCJxQHXfHHExFIGsDDDiPBZpMIElAAFgBEMrWWFeVQPfBVSpZAAy ICAgICAgICAgICAgICAgICAgICAgICAgICAgICAgIC CjTITsDARoRTVjDWSdZZJdRNEvSSFiRQGsQBPrNN8MUGImDPFqWLZaKSJyROUtNNWfPRNwVRXdZNGuQD AgICAgICAgICAgICAgICAgICAgICAgICAgICAgICAgICAgICAgICAgICAgICAgICAgICAgICAgICAgIC NtTAQoEOKuLWEfNC9MXE44zFIlg8Y1VPMxAC9exol/ Rc7WRNzvmjOevHVoAH8UTkXjKU2tqc3FKcRwYW1ptf5EAFgOSgUeH6A3hDNgAUCaVVZQSdCtT22zHVwt Jg48LJbxIRRnQrQyOAn5Ca9TYkDhK8jfZEAkYaV5ENJaIxC4RTWnTiU8DIBbQqHpGNCxIGFbHTQoIVCB WRK9HXFtTjPhBXmgZP6Cq3NciMY3BSc+Kd1AWF4qy0 YsMBhxCoXfSU8pkb6UOArLMlSvB1UuoiC2CROpDOBmZn8AQOKkUPVpmYUmBzIvWSMNHaWsB3ObdC12XY ENCj4+XLwmssRdDmxDFgZcTEXqj6UvPGe7OR3BSRSfSCf9nUZbP44hq0YgaFXsSpvcMEkkqlfePHUfZ6 8qrKKuSZ9KSyXqJSYfHG4aDt3wRIPlNTRtUkN6MIYJ VL9AKHTvBUJouIZbIZLvCMRCGD0MIOocTDX3KPFkbwRcmZWwNQfePC4AUFPkqsXsAsPoWNTJNVv+Pg0K HL3ea8LjWCqvPSCvAY6izy0LYDkZMhWsL3X1oCStE1F3TSedTg1DGOPtEOKjNxYbUTLVKGofIX1YLH1p bfT1IH5FqZYaMIYmETEnmFPzUXc7K65rqRBuLLccBM 0KICA+Javed+Pi7NJMTgWUDfOQGrXgCiZFOACvMjV4YyJ4HFu0DrO3KyMB76bMsyizZyODymKT9ANT0sUI MgFTUNFF9GhLCjbA8qadJxToKeHOHCFdYyI11mzRAeWMFuOPGtRWTuHu3GDHMfK5NyxdOgpHemruJvBF NeBGSGXF6UMDxrkfWzyRHhfSjmBF80iQihTC7EYr9D DnTrNR3tom1BtIPiKh6WNIXaGX4NJIIdSNGkHVZqEQX5QWFiOhMpLErwDSUvCRVsZLN8TAHlYMPwAB1A YnDqKQMkOsCeBHYaLRFiWLNmiw4VRJKbMMJkWyk7JGMrBRKhFSTqOTxmZLEtUBMgOAS5YCVlVJMiWC0Z IkNcQYUeBLO2ISYoTMHbPGYcxu6CLTTsAZNdYHHoZH BeYPDfVYHlDLlcDMIqJNK9MqT8TNYmYLZpIP5LRnZiUPRfBAy6FusiNPFnPJUeap3ZNTCxCBAtIVB8XU KdLERlKOUfWTreYQEqSTOmYIPcAYAyEDYzVQ5WBxElNJQbVLUbHJBvABJjZRAobq9LNSBeVENxAQW4Bc QgQUJhLSCyZHqpKSWtKSD4NofwNOMzUPSyTO9PYeBo MBOaDDp0RJhgXTUgDKSixb1GWBHmWEUhCVfsVVJeZCJiJJYoUWtyLLDtDUJ8DWP9JIJqTJCjMI8ZQsRt STYsJEs5PwciDWPuXUXnzu4LTBLjSRXuGIY6CDTdLNTeUFRlWAtcMNHzAFZaYuC4DVNrZHAjQI9JIpUn VWMeEbFpHIHyKDZaNSGzph8ZLERwKPOwGKEnWBSyIF QoGACmELtdJQXmZOAxRHt7DHJxNRCrFT2WEcTnBSIqNjI0WKPhWZLyCXQhcy2VWCUuARNkZzc3YbEbAU AlCEIpKGvkNHZjPIVfNCE3DPNjHYUwCB8CRuYjVFTwBaAdUqPmUZWwWHVgtp6EJHFrSITdPAIuIXSuXC HhVAXrIHhoSIBzBBY7IHK9BFSgYFHnEH5QPmBiKIPs PbRmSMrvSIEfHRKvrr7MVRXvXUFnUXTmFwWaSWXmDGHsOTzjXYJjYWD8DiPfGCZkFSYgMO4HLvJfNFEc HgxiMkTcVYRbTXLqwc0NMVHhQMAhWvN9JlIeSBNeBSKnKAlaOIRdBLL1AcU5KTLzQWJzTA3POnGyRYni RXFNWvz0LQnaD0k6NMArRX2WW6Cep0HoJhDaBIMUIU wfOX6ypzJvRDMdRr0CE9hIToc0KaZ3N2B8SKR2MfP2GnwuPMIlCjZzOTM9StQlS9WwUa3eLMWeSUcyXL T7GlHmBOOcZ2SfMGN5E8T4IVgnHYWeAOT1LyOsLW5APc8ZXeT1THP0cOAmNg2LGeg1ILRHPcQtCH2JBQ o= ID Date Data Source [id number] 01/16/2021 08:49:[address] [facility] Name Value Range Interpretation Code Description Data Tyra rce(s) Supporting Document(s) Glucose [Mass/volume] in Capillary blood by Glucometer 209 mg/dL 70- 140 H [facility] ID Date Data Source [id number] 01/16/2021 07:28:[address] [facility] Name Value Range Interpretation Code Description Data Tyra rce(s) Supporting Document(s) Leukocytes [#/volume] in Blood by Automated count 10.3 10*3/uL 4-10 H [facility] Erythrocytes [#/volume] in Blood by Automated count 2.58 10*6/uL 4.1- 5.3 L [facility] Hemoglobin [Mass/volume] in Blood 7.6 g/dL 11.5-15.5 L [facility] Hematocrit [Volume Fraction] of Blood by Automated count 21.8 % 3 6-45 L [facility] Erythrocyte mean corpuscular volume [Entitic volume] by Auto mated count 84.5 fL 80-96 [facility] Erythrocyte mean corpuscular hemoglobin [Entitic mass] by Automated count 29.5 pg 27-33 [facility] Erythrocyte mean corpuscular hemoglobin concentration [Mass/volume] by Automated count 35.0 g/[facility].0[facility] width [Ratio] by Automated count 14.2 % 11.5-14.5 [facility] Platelets [#/volume] in Blood by Automated count 145 10*3/uL 150-400 L [facility] Differential cell count method - Blood [facility] Neutrophils/100 leukocytes in Blood by Automated count 75 % [facility] Lymphocytes/100 leukocytes in Blood by Automated count 14 % [facility] Monocytes/100 leukocytes in Blood by Automated count 7 % [facility] Eosinophils/100 leukocytes in Blood by Automated count 3 % [facility] Basophils/100 leukocytes in Blood by Automated count 1 % [facility] Neutrophils [#/volume] in Blood by Automated count 7.79 10*3/uL 1.8-7 .0 H [facility] Lymphocytes [#/volume] in Blood by Automated count 1.47 10*3/uL 1.2-4 .0 [facility] Monocytes [#/volume] in Blood by Automated count 0.74 10*3/uL 0-0.8 [facility] Eosinophils [#/volume] in Blood by Automated count 0.29 10*3/uL 0-0.5 [facility] Basophils [#/volume] in Blood by Automated count 0.05 10*3/uL 0-0.2 [facility] Nucleated erythrocytes/100 leukocytes [Ratio] in Blood by Automated count 0 /100{WBCs} 0-0 [facility] ID Date Data Source [id number] 01/16/2021 07:47:19 AM EDT [facility] Name Value Range Interpretation Code Description Data Tyra rce(s) Supporting Document(s) Troponin T.cardiac [Mass/volume] in Serum or Plasma 0.27 ng/mL <0.01 [facility] No Significant Change Since Last Result Called ID Date Data Source [id number] 01/16/2021 08:02:59 AM [facility] Value Range Interpretation Code Description Data Tyra rce(s) Supporting Document(s) Reticulocytes/100 erythrocytes in Blood by Automated count 2.2 % 0.6-2.8 [facility] Reticulocytes [#/volume] in Blood 58.4 10*3/uL 26-122 [facility] Immature reticulocytes/Reticulocytes.total in Blood 0.50 % 0.26-0 .52 [facility] ID Date Data Source [id number] 01/17/2021 12:07:29 PM [facility] Value Range Interpretation Code Description Data Tyra rce(s) Supporting Document(s) Hepatitis C virus RNA [Units/volume] (vi ral load) in Serum or Plasma by Probe and target amplification method [facility] Hepatitis C virus RNA [log units/volume] (viral load) in Serum or Plasma by Probe and target amplification method [facility] Service comment Health system (NOTE)The quantitative range of this ass ay is 15 IU/mL to 100 millionIU/mL.Performed At: [facility] [id number] Blackwell MD Ph:[phone] ID Date Data Source [id number] 01/16/2021 10:40:54 AM [facility] Value Range Interpretation Code Description Data Tyra rce(s) Supporting Document(s) Hepatitis B virus core Ab [Presence] in Serum or Plasma by I mmunoassay Non Reactive [facility] No active or previous infection. Suscept ible to infection. ID Date Data Source [id number] 01/16/2021 10:40:54 AM [facility] Value Range Interpretation Code Description Data Tyra rce(s) Supporting Document(s) Hepatitis B virus core IgM Ab [Presence] in Serum or Plasma by Immunoassay [facility] Reactive [facility] IgM antibodies to HBc were not detected, does not exclude the possibility of exposure to HBV. ID Date Data Source [id number] 01/16/2021 10:40:54 AM EDT [facility] Name Value Range Interpretation Code Description Data Tyra rce(s) Supporting Document(s) Hepatitis B virus surface Ag [Presence] in Serum or Plasma b y Immunoassay Non Reactive [facility] No active or previous infection. Suscept ible to infection. ID Date Data Source [id number] 01/16/2021 02:25:12 PM EDT [facility] Name Value Range Interpretation Code Description Data Tyra rce(s) Supporting Document(s) Neutrophil cytoplasmic Ab [Presence] in Serum by Immunofluoresce nce Negative [facility] ID Date Data Source [id number] 01/16/2021 03:11:38 PM EDT [facility] Value Range Interpretation Code Description Data Tyra rce(s) Supporting Document(s) Protein [Mass/volume] in Serum or Plasma 4.7 g/dL 6.4-8.3 L [facility] Albumin [Mass/volume] in Serum or Plasma by Electrophoresis 2.56 g/dL 3.80-5.78 [facility] Alpha 1 globulin [Mass/volume] in Serum or Plasma by Electro phoresis 0.16 g/dL 0.08-0.23 [facility] Alpha 2 globulin [Mass/volume] in Serum or Plasma by Electro phoresis 0.78 g/dL 0.45-0.92 [facility] Beta globulin [Mass/volume] in Serum or Plasma by Electropho resis 0.78 g/dL 0.50-1.03 [facility] Gamma globulin [Mass/volume] in Serum or Plasma by Electroph oresis 0.42 g/dL 0.54-1.30 [facility] Protein.monoclonal [Mass/volume] in Serum or Plasma by Electrophoresi s 0 [facility] Decreased total serum proteins (4.7 g/dL ) with hypoalbuminemia and hypogammaglobulinemia. This can be seen in nephrosis, protein losing enteropathy, or severe acute illness. Clinical correlation is recommended. Pathologist name [facility] ID Date Data Source [id number] 01/16/2021 11:27:24 AM EDT [facility] Value Range Interpretation Code Description Data Tyra rce(s) Supporting Document(s) Folate [Mass/volume] in Serum or Plasma 12.29 ng/mL >4.77 [facility] ID Date Data Source [id number] 01/16/2021 11:28:04 AM [facility] Value Range Interpretation Code Description Data Tyra rce(s) Supporting Document(s) Hepatitis B virus surface Ab [Units/volume] in Serum o r Plasma by Immunoassay 5.7 m[IU]/mL >11.4 L [facility] Non ReactiveNo active or previous infect ion. Susceptible to infection. ID Date Data Source [id number] 01/16/2021 01:50:32 AM [facility] Value Range Interpretation Code Description Data Tyra rce(s) Supporting Document(s) Troponin T.cardiac [Mass/volume] in Serum or Plasma 0.25 ng/mL <0.01 [facility] Results called to and read back by 6A AMERICA GARCIA AT [id number] BY [id number] ID Date Data Source [id number] 01/16/2021 01:47:29 AM [facility] Value Range Interpretation Code Description Data Tyra rce(s) Supporting Document(s) HIV 1+2 Ab+HIV1 p24 Ag [Presence] in Serum or Plasma by Immu noassay Non Reactive [facility] Negative for HIV-1 p24 antigenand HIV-1/ HIV-2 antibodies. Nolaboratory evidence of HIVinfection. ID Date Data Source [id number] 01/16/2021 01:51:12 AM [facility] Value Range Interpretation Code Description Data Tyra rce(s) Supporting Document(s) Creatinine [Mass/volume] in Urine 115.1 mg/dl [facility] ID Date Data Source [id number] 01/16/2021 01:51:12 AM [facility] Value Range Interpretation Code Description Data Tyra rce(s) Supporting Document(s) Sodium [Moles/volume] in Urine 24 mmol/L [facility] ID Date Data Source [id number] 01/16/2021 01:51:12 AM [facility] Value Range Interpretation Code Description Data Tyra rce(s) Supporting Document(s) Chloride [Moles/volume] in Urine [facility] Confirmed ID Date Data Source [id number] 01/16/2021 06:03:34 AM [facility] Value Range Interpretation Code Description Data Tyra rce(s) Supporting Document(s) Osmolality of Urine 329 mosm/kg 300-1000 [facility] ID Date Data Source [id number] 01/16/2021 08:29:33 AM EDT [facility] Name Value Range Interpretation Code Description Data Tyra rce(s) Supporting Document(s) Urea nitrogen [Mass/volume] in Urine 421 mg/dL [facility] ID Date Data Source [id number] 01/16/2021 03:10:09 PM EDT [facility] Name Value Range Interpretation Code Description Data Tyra rce(s) Supporting Document(s) Protein [Mass/volume] in Urine 331 mg/dl [facility] Confirmed Albumin/Protein.total in Urine by Electrophoresis 83.2 % [facility] Alpha 1 globulin/Protein.total in Serum or Plasma by Electrophoresi s 2.1 % [facility] Alpha 2 globulin/Protein.total in Urine by Electrophoresis 3.9 % [facility] Beta globulin/Protein.total in Urine by Electrophoresis 6.1 % [facility] Gamma globulin/Protein.total in Urine by Electrophoresis 4.7 % [facility] Protein Fractions [Interpretation] in Urine by Electrophoresis [facility] Pathologist name [facility] ID Date Data Source [id number] 01/15/2021 10:33:39 PM T [facility] US RENAL OR AORTA COMPLETE [id number] RE SULTInterpreted by:Elliott Rubio MDPROCEDURE INFORMATION: Exam: [...] rce(s) Supporting Document(s) ID Date Data Source [id number] 01/15/2021 09:32:18 PM [facility] Value Range Interpretation Code Description Data Tyra rce(s) Supporting Document(s) Glucose [Mass/volume] in Capillary blood by Glucometer 273 mg/dL 70- 140 H [facility] ID Date Data Source [id number] 01/15/2021 07:37:10 PM [facility] Value Range Interpretation Code Description Data Tyra rce(s) Supporting Document(s) Troponin T.cardiac [Mass/volume] in Serum or Plasma 0.26 ng/mL <0.01 [facility] No Significant Change since last result called ID Date Data Source [id number] 01/15/2021 09:29:10 PM [facility] Value Range Interpretation Code Description Data Tyra rce(s) Supporting Document(s) Cobalamin (Vitamin B12) [Mass/volume] in Serum or Plasma 670 pg/ml 2 11-946 [facility] ID Date Data Source [id number] 01/15/2021 09:29:10 PM [facility] Value Range Interpretation Code Description Data Tyra rce(s) Supporting Document(s) Complement C3 [Mass/volume] in Serum or Plasma 124 mg/dL 90-180 [facility] ID Date Data Source [id number] 01/15/2021 09:29:10 PM [facility] Value Range Interpretation Code Description Data Tyra rce(s) Supporting Document(s) Complement C4 [Mass/volume] in Serum or Plasma 28 mg/dL 10-40 [facility] ID Date Data Source [id number] 01/15/2021 09:29:10 PM [facility] Value Range Interpretation Code Description Data Tyra rce(s) Supporting Document(s) Ferritin [Mass/volume] in Serum or Plasma 369 ng/ml 13-150 H [facility] ID Date Data Source [id number] 01/15/2021 09:46:08 PM [facility] Value Range Interpretation Code Description Data Tyra rce(s) Supporting Document(s) Iron [Mass/volume] in Serum or Plasma 35 ug/dl 37-145 [facility] Transferrin [Mass/volume] in Serum or Plasma 163 mg/dL 200-360 [facility] Iron binding capacity [Mass/volume] in Serum or Plasma 226 ug/dl 228 -428 [facility] Iron saturation [Mass Fraction] in Serum or Plasma 15.0 % 20-55 [facility] ID Date Data Source [id number] 01/15/2021 05:20:01 PM [facility] Value Range Interpretation Code Description Data Tyra rce(s) Supporting Document(s) Glucose [Mass/volume] in Capillary blood by Glucometer 297 mg/dL 70- 140 [facility] ID Date Data Source [id number] 01/15/2021 04:02:57 PM [facility] Value Range Interpretation Code Description Data Tyra rce(s) Supporting Document(s) [facility] YYEDKo7nEmGZYbSe96/IRMveSWHue6MmXMoxROh9ZFtzXOZkE1AtTFH2cC2fWBP5QPoGVuXgYtXfLZX9 lbm [file] MDAwMDAxMTExMiAwMDAwMCBuDQowMDAwMDEyMDcxID YxDWPcRK9BHnDmPCVuXMUpQhVlMKTqCMGokt3JPLJuMYHhYrP8DMIkHYAkICFlCXobQGJyNPDyMEXyWS VjVRJhAX0JHvKhATOaHKP7ZGxqAYPjVCHymv3CSRToURQqXhnkGSYiBIMjXWTjKBadAIUzKLQ9CsDnWC FeUCPeFO5WQqPaHISbLWI0GERxOKNvZWYfug5QKJVc YCXwFJf7BrZlMFIhICWxYYkoOZMkKPZ1RXQ7VCAxLOUlTX8GTdAcEUpaGVGGKcg1AMdcC3p9UYWfAe9K K2Vhq7JvFjXkBPUKXUyvKX7pppWvLTPxHn3RH0oKPcr3NAmbFiZ9VCZhYyX1TqpfZuPmWLU2EaZ7Mdm2 WTVnGF3pUVFfTHMgHra5JUIzTlCeSUTdMyZgVYffFp M9LKoiWOTnUqQbDQ5RTh4XBgK6PWK1rPMvBe0BTZRbYUYLSuClVR7XTIv= ID Date Data Source [id number] 01/15/2021 12:56:10 PM EDT [facility] Value Range Interpretation Code Description Data Tyra rce(s) Supporting Document(s) Glucose [Mass/volume] in Capillary blood by Glucometer 352 mg/dL 70- 140 [facility] ID Date Data Source [id number] 01/15/2021 02:01:19 PM EDT [facility] Value Range Interpretation Code Description Data Tyra rce(s) Supporting Document(s) Troponin T.cardiac [Mass/volume] in Serum or Plasma 0.21 ng/mL <0.01 [facility] No Significant Change since last result called ID Date Data Source [id number] 01/15/2021 08:05:16 AM EDT [facility] Value Range Interpretation Code Description Data Tyra rce(s) Supporting Document(s) EKG [facility] AZPMGg5zLsNTHnHoz2TyWiLwCQBhWC9fdbq8O9P2iPMrZ8GxsMGia6pyJ4QoP8MbVPNpSOXBYN1VjDYx jb2 [file] 3jb/0uo54m9Na00R0/6z/6StRv7/84H1bynYc1viNM Iv/dqzsVq23ccOqIa25hx3FiYwlf/um7W6b/8t8N4r/88W4Wd+wVP88x/8ZW8b/xf/rz41d/Txc90r/8 fZWMP468U2/uztW7M692u01Re+bOidlAA0c9sCW/NzaI/s9S87csQ22+28P/0pMHCH0WZ5qYEZ2D+8UO v/pTMtK/6+PcHs8W47kg/Dzn/mq8rkS1isDe0MFbH8 7pa8/gVzvTv/fs31tknBQi/pL9s4cV5/HecyP9All/8itV3F+9/qwKfw5+9aRv/2Cq4Komzng3+FVeo6 zd2WmnSlvC+JZnuid4s3yrd/Yq9NtVkcE8hn+oZ6L+bVTY9fbUM/oOjN/gJ8kIE9/jp7mm5tLG23m/8K vMH7h+7M3Ch6lRoEwd+f8z570PDrmzuVw0XhZxFD6C q478R108sRXZcH02VxNDfqUz3U+Vvke5udJ/Jwof3RQfk6kiSIeWsZ+OEp3bk9/jk3ZN1oBF/a6/6g35 dkbZ3QzMZ/UeY549nij1jf/kC2ZChl7xj1qHj2j08hzFS/n8dpwb77st20dl8rfc8D2f6Kwlf57d4Qu4 FoUNm3o3D8/Keg6/ourOp8jpZil6p3ufD0X65GjziV dqEhOgKtEdI06a7/Ms3Ue5D/zyKwW/KyCwUC6M4FZ/Nu5AC2HovrwWI+u6/Eqda15ZKD0YT/97Vhsft4 +5dF3+eRBaS9Ui8UgEs1KqTWlss/SpQZ2zu+62Gcot5sALd4djRztG91wzqlPopmOajL/K42iiRe/ase q18Vlxsr+/ekK67Naobo+/2iOuP+tvbDc//GrHBvPD r+K7+rMF+01P5E/kL+Qv5G/k75c/lB5GUsrYlC7Cc8xLD6eo07vKnzhe10n9fzCOB70kU8u6jjbeZ/Id +G13jgk72s8fpN14kd8Hrhdv6xgkylNt264bff+eNPLlXh/8KtOKfEV+Nw4WW4c19HFAdfR0D9n++lUP frUjPV+/7RV9bBu77lbkiti547jJuR118pTdHJPK+Y Q8oh1Cyw5V3Ob0WeiXX/Kh7+FXT52G+zDr1RsLar76AV21lBtzZ3mZ+ga/OuO6B7+K/A59+x2/Z/P0m9 kxy9QdynGWlov+FK0FIzAv3Ks76s86A/kT+gE11Fi1x+FXb/klE3dr7Waut/UhcPapo4hxqy+AvqPfdk e/9hnQN/jOesQHx1aFmuF8n+D+jnn9//IcO901bAtP Q9a0Zkaw99uVhlLXnf0w9YZuW9M4Kzge7Pubf/XwMUr0z4Z1Zq799olpxOxeY/oFxPrtV2DCmrGw2/WO +ev9Rug17J/yC5e2SP7pxj2pB+hcfZ3TS+6v3/M4E17PI638Y30X9BJUJ66cDj/qiF91v/H2Pm+8vc+G fEH+jV/1iF+FLhG/dh3Pl2jJB0/vW2fN0Uq81lxSjo 74c5/3/ERsav9KsYr2tPE+ngvtQt/jC6Qy7OldivhHknO9Yr+Hafr4SB6S03LBo+L6cK0nK6TvrW/yqw 5+1cGv+hH0dDdq7tx8r3+uwmsRLCaWkaxR166fK34r/Q1+dnyxam0Llvxf1vc4I/vg1zzfK+ry0Jw8Po PVvs/9DzMYHus0924MdqClAg9pA61k0r4zBsL+de7L aDf+PNp93h/fxa1OFVQ/72Dr7lxoqjteq4If1+CI+BMFTm0o73U/lfvLbM7d1m/m65h7VimsbRJdxy8Z Q+7z/kJd7bbmnbqV0DiTDke4HGif/9yrF88LEjq+NEZF9kAoS422ffaPm14bWXwUx7xalZ/U22baLz/e Dh7x9LdnQig1WexyrvWw/Miranda+9JG75VRguo87M5rmB hV1n/nqxHxq/Y6fgVVYJsjWKFY+a1rWB6X6vk+Ffc6+KMNsa0Bevi3rMqcoeietT98Ai60plcL3N90sc S/Gu9m4/Mhx7+x1/hvzYg++C+pXT0359bH/zwbjWcL3/kft2q6o19+1fhjK24ayHh3lSx5f5r713HP+N MKmE1eEV3+Yp/Qx6TeJmfOR/gnTlTop2FRNb/e4oxz om1W89lzl5CvgcZ1w0fquOrYfgVHD+3Pk6wv8yh+FfvRx30+BqWnAh7i861es60Ov1jlOWI3jvoJUbR0 Xe+Z2eDd2R5Dgf89gmCx+9EB17PO8ysF2b+AqQ9LWw/4pQK15aeiatE/oZ6N+u/4mQP9x5Aw+4UaqG7q 07BmplkKe3JjbpKiN/PZ5t09dyhg76YJ9/wX3ve52m Abzxl+2lnQjxusYVezfjI2N5436Td+hSfq6l1SY/pOjN+J+JwzU4tkgMi7biP96b2O+safR/CrTE/0Z6 I/9/7ivAbb3fc6Kh65FP2hI/py6Qnf15fl3vTplL7Yw8qhJ41+6i4EyWREx+CsC2B2NOm/l++m4 EsFuh3DQk38JaEvwEosFWfnK/xfjDqjPeDmX/fh57N vxmHPHt/s9ncXhC86CF+6/8QaetnhzZ5cpoh5Brytx6D31nF/V/XPhv+vK++6z826daOQ0r73WbtL82o 7cbbrSnyO/NssU6Wker1Rjg8KG42rTFucCxCr4iy+qnmutLcatBg7MzU0pa55w8olok3UqVcaF/PRyb3 +kpaEp9I0VpSm+R35N/bCBY4DDacx86H0bHqknMNEk tvcvKzk/dtW9452yKqTnJ85sX7aBbp/dOaN9QVxzdaliWtd2/R3xglzvC7bgt4VH00hqF6NBOfZ0xYFx 8WR9OwgjYblA/GNYdvZFlvtw+O/BuftIhfZdmF+hfyN/oDfQ+/Spv0+3xkEb/Ka+TaIeJXUU/ErzK/4/ r+ru+B2xfH9nma/Qp+HuoaC532xuAlc/EN6/d50Pp9 /nU0T9br7t93U98g36pmHPiTni+tTF9/jvjVk75+G+5KE9izmeQ+lrmafovGv7N6IiCf+WcAou3I0WWt QA4H1Q27qhRz/sAGcw5oi2f6E292w2+/Fvwqr+l3PFpH/Ri/hvGL+JUZxi/iV2aO/kxcP5G/kL+Qv5GP +if06zhcX0GjsU/ty3Jd4dQbq2qppPK482a/jvvrhn y7fus3/oo51r5xtyjupK1l+yr9pzib/Cqun/Dn2ZCP+zsF+XrrmTdeZxP+FWfcycysX2Wh4Y3ktIbL74 ge+p329BOMdVjwJg6Fg0i/C/63bpaFYt1ayc7Q1va5JZ5CxUOwcB2h+NGsg1xlguo9TgPW6Fdf2/nX1o 4M4jihFEf5Ngctq++1feOxtu/7weUxkA8h+6uo [file] ID Date Data Source [id number] 01/15/2021 08:04:26 AM EDT [facility] Name Value Range Interpretation Code Description Data Tyra rce(s) Supporting Document(s) [facility] XAVLCt7vAmKGUaNru6HoVxLrIABbGV5ncik0N1H1gINpV4BmwVBqq2nzS8RrX4JjYVMmJOSVPP5SbTEn jb2 [file] clinical neuropsychologist/AL0AhvhWg2l70KzggJQixd+ZVurEemaH2qwJIDanVIjZ1LJwRBc/LWfxKG9yA0Bd+opTPyiYcgp2 F3vW8YXKM+O1Lp4qzTKDZ3xnx9qPPvG8/kD/Yaz30s jg4api0wnm5TXD/WcYDHwdPxMjlhiAZ8K614P+JKG/He+XUdFRiBS3sQKgT/UajqOPirXT27G/XBN5oj 3ofRcXjP75OR+uYBuQCJV3HSQKfEVjVmE4otsYbMXvwqqZS90ta3AtYf5H10jzdfM/D96dJCqPQZnPaf 5ShB8Yp0oFFGFQPxH0GalzS7l2s676uYx/g+UUrj+0 OCayFScfiIWY7qO6qly4Qk0N2/PkHKKG1sLQxiXd9g3sl1gJv83/yC5pvDsUxrak+7/Fc732/51n/jwG Ei7QgKGafp72X4AuMk9d0ft+n7Vmure3xklck0v75nb0b0ue2wx0/7zJFW6Dp+E+Dqmdm0pO17t50fbn pg79/59ZwnprDS51mepicT18y8C+957S6tAo2czDoI C+P/6yidawrmA3/e18ElZDNrnr81mcvkyww+Xm/Vpg72s0/a4H0dobH9dlgzpM2MtfkVgl++F/qV6c/V 0qfrLKp0O2Jc6lP3OvhkOrn45H0hjw5qypkgmjCjnaL8GA6Xeg4++s9OoJgwo3xSO/x/p3j78CnvHbEZ +fD5ffmoi/YMvn5oBum9yh7p8/r+PCijvqC+oH7bq5 0hxqnoLgc251t0/EU0x5cYlyfE+reMenveufMF+q59ctcocI5R1PW7L/LD5HA1S/Fd8ong3Ltx3vns2g Rs9mgo4Ql2l86Pyx4Y7vflOzvrtBxs5mrVk1gpf4ysmB2mr1L+7UUaMKc5zRjUjnA6AEqid388E/pZA3 5lN9picJ+KQyYF2h2grXxxyqq+w85WnH0aqId3eM+U F+rXbT+5wUlcl8I8rkK2Ru08gsgZ7s6WE4Ydzn0Cxnjj4JTSkz1vn63Em5fXS3PtGMn/M8cIYzK6ay7W 37Hnr+g7aM55Z9GfrBDQ3eqrfgBga3vRxNodoq3p0puwtuzff/bk87JV2ai3wF731+MD0Gsqvyu+9nHv C3PHc+x7n3ed/4VoX4x7439mthW12KY+nNgz782x/N mQz7cu7JI0A6I/hqlh409a85OdQ0drY/df1e/6hr5q1nhlFs+841j5etcab5Sf1q9/XvuI50tsbL+o3/ yigo083/tr26sY+FJnrMD5A/gyd5hz1wOGsmoQmuen+5pX150+/dgza8ffzHM2sm2j2b7tGIU4jMZ81/ unSjE9UMh+t6qB5Hpp03E/9wQumfIR1VnrCioe1js2 D3oodi3ku04Lsus4iZ/5+nPjq9P+a6++Jra3lU1lF+0g9k52fX7k/XxQRvuvvaOqfl/mDRd54nRV6FC6 Dz5lO1l/7T1ltN/2dtV/5S5o9FhJbvJjnesetX5HPuho3OlS40AeUUpsnr8uZ58zd8hwJy4YH+rXrd/4 5q3vkky318n9MIocHO1jQ1buQaEaCz72kNiwMP7bo0 062nfUG+kS4J83K/1A/FJ5AW1D/nF4tl89iol0he2N7LP6EzJ1lff7RfFekUNUZB58Y+qihXtO2p2gff y//ka30n3aYtefyOnN7h27PlMn0ZJl75m7fbrB51Do2avznRIxiK2yw+w53k5zIl/h+uxflQHdcb5J7x y3h6qhBHaW+aB1iNnd94CU9D4xi8mf/Q7d89f9s1pa Tsfubdxv+AjumeZ98/XfbxatM76xXq7KbuS+o35s+bm0YV1DtlA2Hcc01Ki02XVFM670pi7EktIRGqkS r059Q/rBPS6xZ+oN7Q1y/VWC9rR482ecZ5N+JS9AKrtjyZoP1u3xgq6sB01zhf4uRVT+wQ1iexC0lu0U k517xchZeDm3BS06w9ahftgapkcwwj/1sqm2ie8LJ7 9pi+Hzpv1i7/zmoreu4C6wuzHBdww8r7u4ITH1yxhDe2o1to/f+GqOQoSO9dBmCoA4TT+ft7Z1ittzT1 i3In2EL4/k8ivI2Ojs59O/1o4hr8p213gJ44Y1Fyl37OiqIn44nzlKv41xFeqT3eId82ose53UjO1vT+ yWJ+rb7raldZz29wX2Ahu4jpkRe/Qdaqssm9G+69Xe Yn1s3/iouDRe0Ww189hSi9ASG8/M9xmLn7EP2b4osQV7x/Mbeud2d0y++36YiCYh8moOq6f5klj792W/ ykNlu+Nop6Fuv2ul/dItcVN1h36xRa8H6lHsdn3f473x7TvQ08c30I/IH5D/zLlVwzy5Q62yQ88am+f6 xP4Kk341EH/zdO+zAbpd52r9lz8Jh+E8lfl0uiPb86 xwaGYklRBgh8yb0dd1Hmy/8oNX0mxm2lqeu105x0A2W4+/1qk1U6G18M5xE/0Yv89ZVelvqefbCxicx7 0oW05Kp5y4OQxqInGlfVPXe+R/6pwqz4WoIUdKX7dph926yWGBiRb+rv+77JXMbW/U6pJQhwq3N6V1dK pvfLWka+OraL/wTccj07ks5zGYu7i7B01n3rke9xzq fuiP/6P8rdf+9j3u6bzysBIa7/gm1Pim14s+ZdRPtJ+Qs+759lpxyetrJMwHo532yR7n+Ye25r2zbqzk AgS181nAbsW75Z07Iwn/5mNhjl7NOQj/G1+9ZchfkL+u/V4w5aTEI7WoPVwGuThCbZpekFNB16x0bIu1 tLc7/u4qOr4g+RgBlX3N3QunmXw+IvPe4JCe2gibe/ MDcTz13d7b3L7q163qYouRN6nle+OrU+1S87D7X2p04qrLLX+NgP0K39h4jjS7Wq4tMPgNg+f4jpk5Bw ih1HdZ8qox2Sp0NM63xdFF7dM2q/e+GWvnPW80vs41v8/53i+Er84+5nu/WFivgK+w5FY1zEWAj3Akel kLX+15FlaPJbeSt126SF7/XreK7061b6U6ft7Waqih 9R167/13b1R+89l6kr1Keod8nfcQoJfFot16jr2d/HNwT011g/Jps/IH0sE0Gcbow9uayji0w46l2LP1 7xT17XJm2rkg5dde2/nelrzf+//MjzP6fy+jBjGJxVOrMC33zk1K/XJK7whfR+l4aFwd8e8hk2t+lL8Y cu9F/iwEYMY67LE8iijB+iseJrh5ZZA+r50TvuG9sh W8yRG3FjrayKNyME7AlfS+ri0vv050HP4y+Cr8v/NY0pi24/B7HvnpdjB+fvEeot4QySF9p5n+42Hjq7 hPqol2o30rkjv9Y4wB0LwtprttwYOP+EpxG/gA8qftN3bsxc15/l9Zy2tbNW+9/fORniM8WWsbTb1s3a 15oR9g75zHHdLdNTD9/hG+Vmd0Bg1Ow8DMVr2h6v6o /ga+2tdO+QnuyJic73IZyatm6rfvrZ0KL0PkqQAaqBpCi6C84YGfCk2CilNx0Hd7qryDmt638KHtwncT ZzOmBY4LnOc3cq/dtFPPiMDpk551E3mw+Ii9SA4I6TxSzsxa1u/paevJ8k6DC+Er+Xzg+gbl4zdZO5K4 3TgRvoq+KXR72ziMu4ReOo4Pl/SB+9FAPAtfKYbHxH gm6jF/y8CXHmpjG6279NezzRAefxl95gtLj87Ripd+4pY+cf+cA7676w+ifJ9/u/OQ1K8CDfT/YpwT8h myN33ZoflcN/nr4ue9+fct1yt/IqhlV53oZJBz0+jFP3VMnJQdx+SvVB4X/sgmSx3B+wk5C+S6nQOfc4 +ajEyxW3vjaFcQnWFFKqW3MnCK0rc68rr39eKuBf7X Mp68oG29d5SDIgBsRQ4C/Py6Q0IedoUw573v0E44stz/Mi9LT65d6zosE+mwc2kZ37MuxrNf+4uVez+y cuevlRvPVmBvufFsZUL+pSPI5klwo3oO/J2/ArMga5YhLN/9u0d+hRaf1oa52+4vv61uhr35O1N+KX/l 58urnBhJ9lrsod2Rx1s+x/Om41g52L89aM/cW3Yj/2 v41qns0sjnpeaZ0bkj78HPua/NCQniwA7F+8Gor2h/35dZvB+RzyrQfhpgff823v10r1i5D40inaAPtX iSvJB8kj6Au2BK/p8a3Leux2+Sx6Axjr7kP+x9uW+bHc/Fd3MJx6pIKG2nMWXG6l60lj+0/dnv+5S9Gf lcMdTnUz0X/bryDfbafZ+yd+BrPyjl1hUc2Uu89wU3 lm++fW+/dXoz6z15QpezG5Yo5P0izWX/ZL9kIGfkd4757Ul+gxv1ggTUy2/2mva7volM9w0vEyT+sL7b bc+h4nrR17sQbrflF/76vf+a3+qkd7cGdv5j1G419t3572MENRiwJPm3fqr0QzsfcE1obbCI5/j2Zm+w kE3x6e0m+JZmb6+P3si79ws4/bNodn8zIbds6jJW4E 4Zexn4iLGufQ/V4ImB8vX1v36/ZOO+XzC9H/R3S+1Zu/R+8JSvn/V+8NunrQVX48MK0nv5CUL+UHNZ7w rjFNSqYP2VV1K/4DFj6E5B9MBe+87Dxosn2qQG+Yq4SkI78O/IK9MtrUOor5M716YbqLvI0pDjF3gBPF t/pTGveuN/oHgdv7sdN4ID25kE8AxlM+Rj/z9S4uFR V7LZ2Ram3K/7kT93/w4hjrEe3j9NC6W5Lht74lA7N/iozb2+/hquh1kTktwXurya7GLroF2za9F+RP1E /PZz5Gf2i960sm95yw0zLe2UnlqmpB/fb+mUoSA5pi2tM+ImsxB6a6Z2dPrjL3Vl9a8AUd7wipsLdh2f oBjnA6qv4lpz+5zv0fdgKHwrbnvobx1nOf41KxOfgB zzvI08ldMHP1N25w+2to9Tr7ggCvp60q47uL3yZlmv7zp51r85wL7270r/eMrvOubtfs/gwldRrqi/77 gk1zjYWpJg2t7Wzm18g8499y9ArtvUhcf1Kk9aX7f/G2DNef7saPl9WVJ1+z2D9/s9g/x5eKN2Gi94n6 9H3u/nykxRz76v7zWp924XX90COd85Y5e+qql+Py+c st02A+1I7bdk5/yVI3/lcE689umN/JVH/urdvPqWK+js7ffpe56K7v7UrvydA7tt46/bff51u++P3O77 T1o4EAq13Y0j/P2nz0cZ+6qm0rcpad0Q3W/UF9Tj+vp9n+J+64h00IHxpR/3Lb69rnnm1/wG8ezknmaO vkP+iqiCetl6hjc+vzplyF+Ge683nG82wtw/3+f4uN /nuL6/kt5xv8/x0dD+6tbI47ccn/BX6VHkrFab7u/K117hq+x76Q1HC3/cX3Ip23uh0xk59tpCSY44h/ t46flq7+cinwJ897oe819+1Bp2L0uoI3rPZPq4c5/yed+H+aQ0b5U3820b2jlGarqze3/amo3J5XH2hc /XU75jLp8/cnx/5fj+yvH9la/1aX9T09ul+h8Wf44d /OzrPu/2ixv5XB/4/hc4yoMX81JAzL831xav1yb2os5d7vbu28vtitnqY9Xbpy9Btp2tSHz2uiWPs2xv c67ul0CuiZzfaY9nU0AUezZZA52w3tMi3UMvH4giZdhm+xy1v8+/P74tmqLlOkO52WegWGL6OZly3ldF uc/5I18ijxeszmQ3AdbSP2Emrs+S/YoeK7Ts1/1R7/ MqaAR3Sq6m4JhIh/TceIng8awFtx/IHlQmneupJm1cwnw4IE/B8KG73lwl+weY/+4U9Z932a2df/md5n 2eR/zw+4hfzbIAeX96nczFVBxQfdEkzypuR5A7e53sD8yaj4tD+3lx2YcFX5/eyJd3rwlc6Ngf50FN5z m/XM29eH7sNivZccpFE3JcHLh+VL8SODjAOCnsa7Su o1KRCjICAzZ5nhKunDuv0PbJOrFhEI3iVLfRzItnfeBUUWUbCZbRPRq5ROH6uILv27gJ7akYMAy2tZVf gZYtkBF3r6R7f+dxCbs/Yu2F4kw/lP89zWPInd1ur/7wfX8i8DF1b12P6U3L9/jN8iDs/nC0xqy7iXYw BFo9lpZ3qT10JEDpiVRFi4RovxKzIAxK5hQ9siY9O8 lR65At16gSxAyQ5Nl4RYZ6ll7AvqR0D3FUlInNnUxec4lB5XDa0JSpkGc7CXP2LQoS4bK/VBfjCU0zr4 dD9nke/dHCtc/vkIimynp7u/1F0ia+nCml+hsBFwZj2clj+0O2L/D3CdMyBrBl46P+z+zuwV9IxAchiO Gs0wP1aM4XaO1d3jfrbw9a+waX7tXM/fpgf+j2JeYe gSbTPs+yzVe26vl105E3VLgV14Qhh9/s7KqB9cAZ6/pcv22V5dq8Tm+a78C5dr/r7Q0Ru7/l0KZ76Jkn xKD0FXZM19f2zlXl68h4dV2ZpLx71zfqSBwMxN2tX34gxK4ODOK1BL+cm5hEFh/tOtoYn1mAix/n8SHE XF6Ujb9+gIq9z46KG+mkZ9WO4wIPpeNUxHcSZUF1DC gtOcp3bmsY5wdmeXd0UrNuW3MLnCOSu/sWJ91M4MAdTjMWbp3sNre5UKkp92+mqCv7YlBMjBXHml8/S8 NENvOmg8xhFRln7vY6SQal5bBuZycnToNDl5ZqAWt7JnQR9hOBj4lZfckjndkFOD3VnO3CKOhqsdwrkU KnD3dkOkq2k7Mt9LE+100XBmJCMMXnLCNlZHUrFVV6 JE79PWGmZaqEhcm3CpP4Vmw5eOIccSSnOM1j8aFAhG4sPEb3RC+OYFDPpDTGgXBiTAzhxAiX/mWy5ijl tFbIO728JSVY9Ov8rvmim8JjhU4M6gASiKT7bnyHcKkM5OTe89O6Fa2ME1EUgSeaKK80XZ6yfdxjBWpK tChfJU6DVoA+ppV7R5/CiboHT+MU7h6orSExrewvGQ BzTZuKth4xauwcBOe8pCW2YREVE/HYBPCrAxXvtmYfsJjrhIX7zc1GuXnSPJNXV9/ly6I28MYeev1NP8 tKB87HgSdDvACLVf6IzkrR43CwlNX5k9YGnZ/mwQTJMz2sf0RPWcRvupYRFP6Xxzj2Em3teZd44h9pPL NBVM2pBlaFYSAx3MujkMzVAIEWiHXZT4s7sDN+jdI6 [file] ID Date Data Source [id number] 01/15/2021 08:03:04 AM EDT [facility] Name Value Range Interpretation Code Description Data Tyra rce(s) Supporting Document(s) [facility] RLCFDt3bYaIOUyKrz0YjEbIuAUHuDP9ivoz0W9E2vDNnH7QvgRVfu2ixJ5VyT9QwHYKhDEKYWI8XiULd jb2 [file] 3f3bfo/bt9Im/formal waiter/waitress//nX/4sesreP/mb84lkHy1/7sPXLzu+ccbn50jj6h553l4pazc/N/64htd6ze3/y0 ///qe//ebUc9200//99t2f/vzn7//61x++//M/vH3x/U9/+uHPb//632T+69+//eWnN/u1+T2y8drTkn rJb8LauglyReBXZP85Khohm3//Bw+8avgXbwq821mH 23w97R+8X7/9PwDjm+wB1z9e/+pPt36z9Lv//CC08SltvZ0s2n9TBHHG8/S21s56q97cpoZPcX/w8Yd/ /+Knv8kNp802zuUtpd/vv/zy/dv/9fXrWn/1s+G2n/2oVAq55mo91BB7/xql8ee++L96eXV8qIrz8H5f TuzBvvvhp//8x7e/fv+fP/xs76+571t63kk/9CMvUm gPJj5+ufczd9/+9NN//vDX//e/fMsexfr819fIm5/Y/Sd197n/fPz27d/+1+vc//DCt759++m077bi5r 4e7F8+/vmjEg4Rp6vrAsc4+VV71pW8y/bzW2KO9siop922EqqLye/t2wiK//T8GarIyw9+6tPb9//fD/ /xX2+e58qp/OrdNx9/dTcqet1/U23698/+69//4tf7 SvzTDz9+/+ftKiG7P/zz7//XH7//jz99/5Yl9pOiPlLKZ/3y/88dtfqf//t//e9jxo9/+cuPn/1Gxy9+ sMf75V/++KoEz6KPS2OLJs624Bv/+dOf/ua8l73aG8L44bP/4sdBLZI//o//fM27f/vs82/wo/t7Sd+8 HsPffP8/fniTt7/8+7jYAm7AKJ/u9G/qHz0lzE/vX9 sv9/P5V58rT//3hYvs0OkNnw0i4uG/uuzcxHrA4417/vnXv//g4hcTo1MC9ozW06I+f/JelrUXYG5un7 WcCANrHkMiUU6brnfbOFEhID9nmfs9G8GvgUzaBKiTOBPyAe0stJVrZT2YLGC1MFpjYFIgYOSfO6KocC 5cP78jzOUhQvJdIIUEJM7XizI0EXL8NXK7HRDcEzQq SMJhLU51MMGjPMSYZc9lagRyQazDPpQqJI2oijx9N5S4hZQbD690zVypzcYsAK2Ev2TadTAqHJ2NrULj fTIiMBUpTQPqY6xvc5ZjCAcaKORQXa6ylxVdIswKYuPbQO3pedg9K5M7eQamscUoFALJQLrgAcreJE1g lNfkojgaJ6BvkDTaOIRpN5YvPLVbk72EFPYzHZaXYp TxJkXqALF2MPamNqkxMnUrACDaDWDiGHCyAD6IrGBfXLFdWWOKIOfvKnigWQZakP2xuHASu3ZdIQ9DGY jOK4ZXHIRNSAdRDCOEMUH5YRAiBFUbHV9FwZQoABO3HCdAKPNDRLoGQBzeHtUky4J6CLPtT6XaVCBkij QrEOPMDOpsStmzAI2jgSmffkkjG9NutTOnVZYHFNSj VVNmTVIdGQQxV8Bqp6J4D1LvKVyNLSNYEAePDOdjQuB5e46jngOOTZIwTMAvAB8+QC0vv3HmWw0YQRWl EX0wpmt8FW0RwWIbYO6OXIvelgRxD6udvyDuMmToRIHPHB1qW7CdvK77BVY+TvQcIV3htal0tdKuCdPc HNQhIEKgWZNwCYljKRQuUTQoPCXnNON3DQM1AYAmGs SqOFFsItIdHSIuKAZcSNNrifWUXJZyDYX5YVj8IpEoNJXoJULmAWzmVSVoENY9KZGlKUGdNYAwHE7bZi JxHMMpGQDnKBUiZqM0XkBwNoJOAICkVIIrRDSzCpWpNEApZUFuQSkdZJScSWEvBXd0ZWTlPUZgNP5vGo NvDENeZBCvPYXyTATgJBOjxhSLFBZtVMFzVAP2FCRs MKCuIOHlCCodSKIvWLHcHLE1MLJfWEGsZH8gYxJiHRCxPGE4LrQmFDZbYUZhyoNYPHIwLUYkTTU5QQDr ATZeEWOxOVxlZFZtXLRuYlL5QLPtGQYoET8xCfDlNIKoVKP8JUTlIHDzSKVqfcGSZIFuUJOpLXq4DwJq WPXrANDgPUmrENJjVMIgJUgsPPWhRRLzDN7aWfHaDE QjSXOzROIuZCTvKQCqsuMPWQJdOYScBRP1WgCoKHKvHOQlXGccLGMkTAYsATL4QJSgJOXsVE9xLzKuVL QoHoN0JgEmFGEsREBcnlYZDITlXXSmPNEwRTZmWGGvTHDcJSreNBBeXCKqEnK2UIUlZXTxNL0qDiRqZU DdWNM2BGIfAIBcAQYezuLQBKItMNPmMIBhEGS7AIVy WBHqDXi7hnFewRPkCtk8Pd2TdAmkONB2Fz5IfdLgWGFlXQGDSb0Lc396HUTrURNRVso+PgpzdGFydHhy OPISHqHlWrpBIDYXN4H= ID Date Data Source [id number] 01/15/2021 08:05:[address] [facility] Name Value Range Interpretation Code Description Data Tyra rce(s) Supporting Document(s) Glucose [Mass/volume] in Capillary blood by Glucometer 305 mg/dL 70- 140 H [facility] ID Date Data Source [id number] 01/15/2021 04:56:[address] [facility] Name Value Range Interpretation Code Description Data Tyra rce(s) Supporting Document(s) Leukocytes [#/volume] in Blood by Automated count 11.7 10*3/uL 4-10 H [facility] Erythrocytes [#/volume] in Blood by Automated count 2.90 10*6/uL 4.1- 5.3 L [facility] Hemoglobin [Mass/volume] in Blood 8.2 g/dL 11.5-15.5 [facility] Hematocrit [Volume Fraction] of Blood by Automated count 24.9 % 3 6-45 L [facility] Erythrocyte mean corpuscular volume [Entitic volume] by Auto mated count 85.6 fL 80-96 [facility] Erythrocyte mean corpuscular hemoglobin [Entitic mass] by Automated count 28.4 pg 27-33 [facility] Erythrocyte mean corpuscular hemoglobin concentration [Mass/volume] by Autom[facility] 33.1 g/[facility].0-[facility] width [Ratio] by Automated count 14.0 % 11.5-14.5 [facility] Platelets [#/volume] in Blood by Automated count 149 10*3/uL 150-400 L [facility] Differential cell count method - Blood [facility] Neutrophils/100 leukocytes in Blood by Automated count 84 % [facility] Lymphocytes/100 leukocytes in Blood by Automated count 10 % [facility] Monocytes/100 leukocytes in Blood by Automated count 6 % [facility] Eosinophils/100 leukocytes in Blood by Automated count 0 % [facility] Basophils/100 leukocytes in Blood by Automated count 0 % [facility] Neutrophils [#/volume] in Blood by Automated count 9.88 10*3/uL 1.8-7 .0 H [facility] Lymphocytes [#/volume] in Blood by Automated count 1.12 10*3/uL 1.2-4 .0 L [facility] Monocytes [#/volume] in Blood by Automated count 0.64 10*3/uL 0-0.8 [facility] Eosinophils [#/volume] in Blood by Automated count 0.01 10*3/uL 0-0.5 [facility] Basophils [#/volume] in Blood by Automated count 0.04 10*3/uL 0-0.2 [facility] Nucleated erythrocytes/100 leukocytes [Ratio] in Blood by Automated count 0 /100{WBCs} 0-0 [facility] ID Date Data Source [id number] 01/15/2021 05:16:47 AM EDT [facility] Name Value Range Interpretation Code Description Data Tyra rce(s) Supporting Document(s) Bicarbonate [Moles/volume] in Serum 22 mmol/L 22-29 [facility] Chloride [Moles/volume] in Serum or Plasma 104 mmol/L 98-107 [facility] Creatinine [Mass/volume] in Serum or Plasma 2.44 mg/dL 0.50-0.90 H [facility] Glucose [Mass/volume] in Serum or Plasma 335 mg/dL 70-140 H [facility] Potassium [Moles/volume] in Serum or Plasma 4.1 mmol/L 3.4-5.1 [facility] Sodium [Moles/volume] in Serum or Plasma 140 mmol/L 136-145 [facility] Urea nitrogen [Mass/volume] in Serum or Plasma 46 mg/dL 8-23 H [facility] Anion gap 3 in Serum or Plasma 14 mmol/L 8-15 [facility] Osmolality of Serum or Plasma by calculation 315 mosm/kg 275-300 H [facility] Creatinine/Urea nitrogen [Mass Ratio] in Serum or Plasma 19 [facility] Calcium [Mass/volume] in Serum or Plasma 8.8 mg/dL 8.8-10.2 [facility] Glomerular filtration rate/1.73 sq M pre dicted among non-blacks [Volume Rate/Area] in Serum or Plasma by Creatinine-based formula (MDRD) 19 mL/min/1.73m2 >60 L [facility] Glomerular filtration rate/1.73 sq M pre dicted among blacks [Volume Rate/Area] in Serum or Plasma by Creatinine-based formula (MDRD) 22 mL/min/1.73m2 >60 L [facility] ID Date Data Source [id number] [facility] Interpretation Code Description Data Tyra rce(s) Supporting Document(s) Magnesium [Mass/volume] in Serum or Plasma 2.1 mg/dL 1.6-2.4 [facility] ID Date Data Source [id number] [facility] Interpretation Code Description Data Tyra rce(s) Supporting Document(s) Phosphate [Mass/volume] in Serum or Plasma 3.6 mg/dL 2.5-4.5 [facility] ID Date Data Source [id number] 01/15/2021 05:16:47 AM [facility] Value Range Interpretation Code Description Data Tyra rce(s) Supporting Document(s) Troponin T.cardiac [Mass/volume] in Serum or Plasma 0.29 ng/mL <0.01 [facility] No Significant Change since last result called ID Date Data Source [id number] 01/14/2021 10:46:01 PM [facility] Value Range Interpretation Code Description Data Tyra rce(s) Supporting Document(s) History and Physical [facility] HYEGQy7gYcIEKzNk45/MSEqiDKUdu6FgHIasDTx7FWnkMGEdS8KyKYE4tW9xYAO9ONzDUoJeKjGjFEO2 lbm [file] [facility]/1zPcIngSUNwsEVHFVVi4xKFllLghn9Ri4sFserw0VekdaxuAHYLoC7H2vDIIuYuCnWO0urLZHcYVF [file] RbEONkOG9iHWGPPz2+ICuqqCGsjRbaEFIWQqP3QAH5YUvsZPCIGg4G ID Date Data Source [id number] 01/14/2021 10:07:[address] [facility] Name Value Range Interpretation Code Description Data Tyra rce(s) Supporting Document(s) Glucose [Mass/volume] in Capillary blood by Glucometer 289 mg/dL 70- 140 H [facility] ID Date Data Source [id number] 01/19/2021 09:43:[address] [facility] Service Cmnt XXX-Imp : SNGMicroorganism XXX Cult : No growth 5 days Name Value Range Interpretation Code Description Data Tyra rce(s) Supporting Document(s) ID Date Data Source [id number] 01/14/2021 10:37:[address] [facility] Name Value Range Interpretation Code Description Data Tyra rce(s) Supporting Document(s) Troponin T.cardiac [Mass/volume] in Serum or Plasma 0.33 ng/mL <0.01 [facility] No Significant Change since last result called ID Date Data Source [id number] 01/14/2021 09:53:[address] [facility] Name Value Range Interpretation Code Description Data Tyra rce(s) Supporting Document(s) Color of Urine [facility] Clarity of Urine [facility] Specific gravity of Urine by Refractometry automated 1.009 1.003 -1.030 [facility] pH of Urine by Automated test strip 5.0 5.0-8.0 [facility] Protein [Mass/volume] in Urine by Automated test strip Neg [facility] Glucose [Mass/volume] in Urine by Automated test strip Neg [facility] Ketones [Mass/volume] in Urine by Automated test strip Neg [facility] Bilirubin.total [Presence] in Urine by Automated test strip Negative [facility] Hemoglobin [Presence] in Urine by Automated test strip Neg [facility] Leukocyte esterase [Presence] in Urine by Automated test strip Negative [facility] Nitrite [Presence] in Urine by Automated test strip [facility] Leukocytes [#/area] in Urine sediment by Automated count 1 /HPF 0 -5 [facility] Erythrocytes [#/area] in Urine sediment by Automated count 1 /HPF 0-3 [facility] Service comment Health system Bacteria [#/area] in Urine sediment by Automated count Non e [facility] Epithelial cells.squamous [#/area] in Urine sediment by Auto mated count 2 /HPF None [facility] Hyaline casts [#/area] in Urine sediment by Microscopy low p ower field 4 /LPF None [facility] Crystals.amorphous [#/area] in Urine sediment by Microscopy high power field None [facility] ID Date Data Source [id number] 01/14/2021 09:05:19 PM EDT [facility] Name Value Range Interpretation Code Description Data Tyra rce(s) Supporting Document(s) Consultation [facility] BKVOAa3kLpJJNoQu09/LVMqmYNDzn8XsOXztRLw0GHjvPXMpP6ReSWH0nI2xUPM2XGqTQyJpRjYzWUX0 lbm [file] DQogICAgICAgICAgICAgICAgICAgICAgICAgICAgIC AgICAgICAgICAgICAgICAgICAgICAgICAgICAgICAgICAgICAgICAgICAgICAgICAgICAgICAgICAgIC AgICAgICAgICAgDQogICAgICAgICAgICAgICAgICAgICAgICAgICAgICAgICAgICAgICAgICAgICAgIC AgICAgICAgICAgICAgICAgICAgICAgICAgICAgICAg ICAgICAgICAgICAgICAgICAgICAgDQogICAgICAgICAgICAgICAgICAgICAgICAgICAgICAgICAgICAg ICAgICAgICAgICAgICAgICAgICAgICAgICAgICAgICAgICAgICAgICAgICAgICAgICAgICAgICAgICAg ICAgDQogICAgICAgICAgICAgICAgICAgICAgICAgIC AgICAgICAgICAgICAgICAgICAgICAgICAgICAgICAgICAgICAgICAgICAgICAgICAgICAgICAgICAgIC AgICAgICAgICAgICAgDQogICAgICAgICAgICAgICAgICAgICAgICAgICAgICAgICAgICAgICAgICAgIC AgICAgICAgICAgICAgICAgICAgICAgICAgICAgICAg ICAgICAgICAgICAgICAgICAgICAgICAgDQogICAgICAgICAgICAgICAgICAgICAgICAgICAgICAgICAg ICAgICAgICAgICAgICAgICAgICAgICAgICAgICAgICAgICAgICAgICAgICAgICAgICAgICAgICAgICAg ICAgICAgDQogICAgICAgICAgICAgICAgICAgICAgIC AgICAgICAgICAgICAgICAgICAgICAgICAgICAgICAgICAgICAgICAgICAgICAgICAgICAgICAgICAgIC AgICAgICAgICAgICAgICAgDQogICAgICAgICAgICAgICAgICAgICAgICAgICAgICAgICAgICAgICAgIC AgICAgICAgICAgICAgICAgICAgICAgICAgICAgICAg ICAgICAgICAgICAgICAgICAgICAgICAgICAgDQogICAgICAgICAgICAgICAgICAgICAgICAgICAgICAg ICAgICAgICAgICAgICAgICAgICAgICAgICAgICAgICAgICAgICAgICAgICAgICAgICAgICAgICAgICAg ICAgICAgICAgDQogICAgICAgICAgICAgICAgICAgIC AgICAgICAgICAgICAgICAgICAgICAgICAgICAgICAgICAgICAgICAgICAgICAgICAgICAgICAgICAgIC YaYDAgANScJMAyOTDgIRTmODUgOYk3Z9lfOYFdKGWpRO0oKJe5Lb3+VCoCHxTxPDD2rqRfhW7TGH1hf2 KoXIdhRPCge5CiUJj6YM2SIVSqKSmzSG7BVXgkjc1Y MZNjWUNosHPEr0nvGhEeYGM4EYGrLjquQP2GBQHaZ9jmqxNwSYVsEOFXHYsuGLBIXVulLRDATJYzLENf OoBaJlGpEIZzCH3MHGTnW447dePhJK0DPz4PUuPsRY8mfa6UTgLrMQAjJioMNkh2ZHniBM4DqPKjnUNg PQWwGWROHcQuO7xju8RmNlUrZDPCZQqrNS9Or1KtpK AxDQo+Hs8AUC0qz7JjFTalJCBbNU1jlj5SUFmKVkXaL0KvuVtcQINejaZ1yCPgEMP9HUOyh5iiwbNYKF TvvSVhWYCmAB7uEL0LCFD8YZPnCIYhVyZiGNIsUZn5YQUOTIiZCiZhS2Ucg9KpWdJ6SAKgAoEaEKaxAV JjSpY4WC00lVzkIY7ESYTqHLKiBS96PTOuKIUbXl1W Ad6BPmDbHR2dxv6WJhPiORMgIhoHFuf2ZLnaKB7ZiZAoA3MmeVSja3yDEtGeH1IMCRK2YPCuEz0ZWEFc QpPoOUAnOShrEW1uFQUkOTBWzQxtfqA6NG7VNO8qchFeAG9DWvMhGy9cEl4XCrHxO5CpR7RaNLAaMJBW PXenRD9YROijRF3zHL3Jv2VTbEWanO3mte9MBAHaKL QqWejapr4QAwhuD5U0dDkhMHMdIfKmIDCYQVhhLA1IRIGxJQF0AQFaIWDvZMESUwYoQ71rTI3JI2Fmr8 5pStQ0IOZcRiAvEVfhCE61xBawujQafNXicDllPX0PTd5+DQplbmRvYmoNCnhyZWYNCjAgMzMNCjAwMD VsCXXfDYTpIjX7LoNaQd8GUHIbMUSjRGDpGhHjFENy SCTjMSslCGCeVTCxGJzgAPSnTKTeKN9PXgQlUFMrIjV6MZYuFOWeSSWsbu2PFHXeZDGeAKI0TuSoGWGe TWDvCZlnKJSnTEUrTSn0QUZyYXDhOY7FLkWzXXSlJZInXXKjGYUaWEHfau1JSWNbRLOxPjB8OJAmRMIx RQDlMKcfFOLeHIF3ZzE2XYZtPFBaLK6UFbGiGHDhXW q1VLDiIFFgCOAdbj3PBRAqDQPwLBq7FRFfEHTnOKZeDIzsTIEgVUZ2AbNxMDOcLKKbWX2AWdNhUWJuBU C5QrdfLSQeRTQmut8FXNJiKFMcHNQtQfIgNOTqMRQxRDkeABWoLGR0LXIoEIIzQZBpOO3JXzJcGNBySW A4CXGaIWXuWPDzlh9CJCUmTKFqFqC8ONDwTCMfEKIs TUhkWMVtRXZ8XDFkELIoZCKwVH2BYiStAWMcFYt3GlXhNCMtZCMmyi1PXIGhBHEyYMYtMfYcUPMaHPOe CIurQWEzIWT0DpZmREJdFLWsIC1OIbFlNSMqCHjdSbCwOHRaUHFfhy7WVZOcFYDlUDI0UCZlNIKgGABt RCcoOBIzHBO6CKYcUCThTYVwWS7VEpUgRCOzNrT6Zp ZcCDEeUZIyyn0GRBNlJDLmKCA4MHKeROJhLYPrJOttVPIoWQEzFSCgOIShODNxWT8MOdDrJYRhCuA9OM NhITFkTSJgtb2RODCiIMHsAXt8WHKrAVRcBRImSGmzSNWgPJZkAfK4LKZpOUYaBK8OAeMwPRStAzS8Rz lpFVYtAODzgx9GKQYgVOFjFrbmUXIzNFTtPCZeDHgf TGMoPFPnLBL4QOWmUDAdQU6RIiJaBYjwBINAVwg8WGhzH5k9WGJbMn0CZ8Zxe7MvUbAfGHZCQNsnFS0s rcVcWNSwTy6XW2tMCrynWiYkLCWgKORkQwPqIRQqTVP1KURtElT8CXT6YUbtML6lHYTuZ5D2QaBvRgFw IiT2HcToSgFnCRNzKxT5BHC0HBP8CiRxEL7KZh3QYjU3POC2bUJvYj2KVhZqIWEAUsCyPF4DDAn= ID Date Data Source [id number] 01/19/2021 09:43:04 AM EDT [facility] Service Cmnt XXX-Imp : R ACMicroorganism XXX Cult : No growth 5 days Name Value Range Interpretation Code Description Data Tyra rce(s) Supporting Document(s) ID Date Data Source [id number] 01/14/2021 06:26:[address] [facility] Name Value Range Interpretation Code Description Data Tyra rce(s) Supporting Document(s) Glucose [Mass/volume] in Capillary blood by Glucometer 395 mg/dL 70- 140 H [facility] ID Date Data Source [id number] 01/14/2021 06:53:[address] [facility] Name Value Range Interpretation Code Description Data Tyra rce(s) Supporting Document(s) Hepatitis C virus Ab [Presence] in Serum or Plasma by Immuno assay Non Reactive [facility] No serological evidence of active infect ion. If recent exposure is suspected, test for HCV RNA. ID Date Data Source [id number] 01/16/2021 02:17:[address] [facility] Name Value Range Interpretation Code Description Data Tyra rce(s) Supporting Document(s) Nuclear Ab Pattern Homogenous [Titer] in Serum <80 [facility] Nuclear Ab pattern.speckled [Titer] in Serum <80 [facility] Nuclear Ab pattern.rim [Titer] in Serum <80 [facility] Nuclear Ab pattern.nucleolar [Titer] in Serum <80 [facility] ID Date Data Source [id number] 01/14/2021 06:46:50 PM T [facility] Name Value Range Interpretation Code Description Data Tyra rce(s) Supporting Document(s) Troponin T.cardiac [Mass/volume] in Serum or Plasma 0.29 ng/mL <0.01 [facility] No Significant Change since last result called ID Date Data Source [id number] 01/14/2021 02:10:[address] [facility] XR CHEST FRONTAL ONLY [id number] RESULTI nterpreted by:Davida Hawley MDINDICATION: sob COMPARISON: [...] rce(s) Supporting Document(s) ID Date Data Source [id number] 01/14/2021 02:28:27 PM [facility] Value Range Interpretation Code Description Data Tyra rce(s) Supporting Document(s) Prothrombin time (PT) 16.2 s 12.5-14.9 H [facility] INR in Platelet poor plasma by Coagulation assay 1.28 [facility] Routine intensity oral anticoagulation I NR is typically 2.0-3.0. Target INR must be clinically individualized. ID Date Data Source [id number] 01/19/2021 07:13:25 AM [facility] Value Range Interpretation Code Description Data Tyra rce(s) Supporting Document(s) ABO and Rh group [Type] in Blood [facility] Blood group antibody screen [Presence] in Serum or Plasma [facility] Performed at [facility], [id number] from 6A at 1005 on 01/17/21 by [id number] Blood bank comment [facility] ID Date Data Source [id number] 01/14/2021 12:52:22 PM [facility] Value Range Interpretation Code Description Data Tyra rce(s) Supporting Document(s) Troponin I.cardiac [Mass/volume] in Blood 3.11 ng/mL 0.00-0.08 H [facility] ID Date Data Source [id number] 01/14/2021 12:52:22 PM [facility] Value Range Interpretation Code Description Data Tyra rce(s) Supporting Document(s) pH of Venous blood 7.43 7.36-7.41 H [facility] Carbon dioxide [Partial pressure] in Venous blood 40 mmHg 40-45 [facility] Oxygen [Partial pressure] in Venous blood 26 mmHg [facility] Base excess standard in Venous blood by calculation 2 mmol/L [facility] Oxygen saturation Calculated from oxygen partial pressure in Venous blood 49 % 60-85 L [facility] Lactate [Moles/volume] in Venous blood 1.5 mmol/L 0.5-2.2 [facility] Bicarbonate [Moles/volume] in Venous blood 27 mmol/L [facility] ID Date Data Source [id number] 01/14/2021 12:48:40 PM EDT [facility] Name Value Range Interpretation Code Description Data Tyra rce(s) Supporting Document(s) Leukocytes [#/volume] in Blood by Automated count 12.7 10*3/uL 4-10 H [facility] Erythrocytes [#/volume] in Blood by Automated count 2.93 10*6/uL 4.1- 5.3 L [facility] Hemoglobin [Mass/volume] in Blood 8.3 g/dL 11.5-15.5 L [facility] Hematocrit [Volume Fraction] of Blood by Automated count 24.8 % 3 6-45 L [facility] Erythrocyte mean corpuscular volume [Entitic volume] by Auto mated count 84.5 fL 80-96 [facility] Erythrocyte mean corpuscular hemoglobin [Entitic mass] by Automated count 28.2 pg 27-33 [facility] Erythrocyte mean corpuscular hemoglobin concentration [Mass/volume] by Automated count 33.3 g/dL 32.0-36.0 [facility] E[facility] distribution width [Ratio] by Automated count 13.8 % 11.5-14.5 [facility] Platelets [#/volume] in Blood by Automated count 159 10*3/uL 150-400 [facility] Differential cell count method - Blood [facility] Neutrophils/100 leukocytes in Blood by Automated count 83 % [facility] Lymphocytes/100 leukocytes in Blood by Automated count 9 % [facility] Monocytes/100 leukocytes in Blood by Automated count 7 % [facility] Eosinophils/100 leukocytes in Blood by Automated count 0 % [facility] Basophils/100 leukocytes in Blood by Automated count 1 % [facility] Neutrophils [#/volume] in Blood by Automated count 10.49 10*3/uL 1.8- 7.0 H [facility] Lymphocytes [#/volume] in Blood by Automated count 1.15 10*3/uL 1.2-4 .0 L [facility] Monocytes [#/volume] in Blood by Automated count 0.93 10*3/uL 0-0.8 H [facility] Eosinophils [#/volume] in Blood by Automated count 0.01 10*3/uL 0-0.5 [facility] Basophils [#/volume] in Blood by Automated count 0.07 10*3/uL 0-0.2 [facility] Nucleated erythrocytes/100 leukocytes [Ratio] in Blood by Automated count 0 /100{WBCs} 0-0 [facility] ID Date Data Source [id number] 01/14/2021 01:21:[address] [facility] Name Value Range Interpretation Code Description Data Tyra rce(s) Supporting Document(s) Lipase [Enzymatic activity/volume] in Serum or Plasma 14 U/L 13-6 0 [facility] ID Date Data Source [id number] 01/14/2021 01:21:[address] [facility] Name Value Range Interpretation Code Description Data Tyra rce(s) Supporting Document(s) Albumin [Mass/volume] in Serum or Plasma by Bromocresol green (BCG) dye binding method 3.5 g/dL 3.5-5.2 [facility] Bilirubin.total [Mass/volume] in Serum or Plasma 1.0 mg/dL <1.2 [facility] Calcium [Mass/volume] in Serum or Plasma 8.9 mg/dL 8.8-10.2 [facility] Chloride [Moles/volume] in Serum or Plasma 102 mmol/L 98-107 [facility] Creatinine [Mass/volume] in Serum or Plasma 2.01 mg/dL 0.50-0.90 H [facility] Glucose [Mass/volume] in Serum or Plasma 428 mg/dL 70-140 H [facility] Alkaline phosphatase [Enzymatic activity/volume] in Serum or Plasma 82 U/L 35-104 [facility] Potassium [Moles/volume] in Serum or Plasma 4.0 mmol/L 3.4-5.1 [facility] Protein [Mass/volume] in Serum or Plasma 5.9 g/dL 6.4-8.3 L [facility] Sodium [Moles/volume] in Serum or Plasma 138 mmol/L 136-145 [facility] Aspartate aminotransferase [Enzymatic activity/volume] in Serum or Plasma 19 U/L <32 [facility] Urea nitrogen [Mass/volume] in Serum or Plasma 40 mg/dL 8-23 H [facility] Osmolality of Serum or Plasma by calculation 314 mosm/kg 275-300 H [facility] Creatinine/Urea nitrogen [Mass Ratio] in Serum or Plasma 20 [facility] Bicarbonate [Moles/volume] in Serum 25 mmol/L 22-29 [facility] Alanine aminotransferase [Enzymatic activity/volume] in Seru m or Plasma 15 U/L <33 [facility] Anion gap 3 in Serum or Plasma 11 mmol/L 8-15 [facility] Glomerular filtration rate/1.73 sq M pre dicted among non-blacks [Volume Rate/Area] in Serum or Plasma by Creatinine-based formula (MDRD) 24 mL/min/1.73m2 >60 L [facility] Glomerular filtration rate/1.73 sq M pre dicted among blacks [Volume Rate/Area] in Serum or Plasma by Creatinine-based formula (MDRD) 28 mL/min/1.73m2 >60 L [facility] ID Date Data Source [id number] 01/14/2021 01:21:20 PM [facility] Value Range Interpretation Code Description Data Tyra rce(s) Supporting Document(s) Troponin T.cardiac [Mass/volume] in Serum or Plasma 0.29 ng/mL <0.01 [facility] Results called to and read back by RN [phone] at [phone] by [phone] ID Date Data Source [id number] 01/14/2021 01:21:20 PM [facility] Value Range Interpretation Code Description Data Tyra rce(s) Supporting Document(s) Magnesium [Mass/volume] in Serum or Plasma 2.1 mg/dL 1.6-2.4 [facility] ID Date Data Source [id number] 01/14/2021 05:43:56 PM [facility] Value Range Interpretation Code Description Data Tyra rce(s) Supporting Document(s) Natriuretic peptide.B prohormone N-Terminal [Mass/volu me] in Serum or Plasma 11126 pg/mL <125 H [facility] ID Date Data Source [id number] 01/14/2021 06:42:57 PM [facility] Value Range Interpretation Code Description Data Tyra rce(s) Supporting Document(s) Procalcitonin [Mass/volume] in Serum or Plasma 0.20 ng/mL <0.10 H [facility] (NOTE) < 0.25 ng/mL Bacterial infec [...] to sepsis/septic shock. ID Date Data Source [id number] 01/14/2021 05:54:30 PM EDT [facility] Name Value Range Interpretation Code Description Data Tyra rce(s) Supporting Document(s) Hemoglobin A1c/Hemoglobin.total in Blood by HPLC 9.3 % 4.0-6.0 H [facility] (NOTE)<5.7% Average risk of diabetes (ADA)5.7-6.4% Increased risk of diabetes(ADA)>/= 6.5% Diagnostic for diabetes(ADA) Glucose mean value [Mass/volume] in Blood Estimated fr om glycated hemoglobin 220 mg/dL <126 H [facility] ID Date Data Source [id number] 01/14/2021 01:45:14 PM EDT [facility] Name Value Range Interpretation Code Description Data Tyra rce(s) Supporting Document(s) ABO and Rh group [Type] in Blood [facility] Blood bank comment [facility] ID Date Data Source [id number] 01/14/2021 08:05:00 AM EDT [facility] Name Value Range Interpretation Code Description Data Tyra rce(s) Supporting Document(s) SARS-CoV-2 (COVID 19) NEGATIVE - SARS-CoV-2 (COVID19) [facility] This [facility] was ordered by [facility] a nd reported by [facility]. ID Date Data Source [id number] 01/11/2021 05:34:00 AM EDT [facility] Imaging Services Department Imaging Report [address] [place] [id number] %(RAD)RES..mtdd.print.filter("line") Name: OXANA CLANCY : 1950 Age/Sex: 70F Ordering Provider: Andre Streeter, Med Rec #: [id number] Reg Status: DEP REF Room #: Date of Service: 01/10/21 Report Number: [id number] cc:Andre Tompkins Reason, DO Send Report To: [id number] US/US Thyroid Ultrasound Exam Reason for exam: [...] Hernández DO> 01/11/21 1109 Dictation Date/Time: 01/10/21 3482 Transcribed Date/Time: 01/11/21 0509 [employer] Coating Machine Tender: EFRAÍN Name Value Range Interpretation Code Description Data Tyra rce(s) Supporting Document(s) ID Date Data Source [id number] 12/15/2020 09:22:00 AM EDT [facility] ([facility]) Name Value Range Interpretation Code Description Data Tyra rce(s) Supporting Document(s) Glucose [Mass/volume] in Capillary blood by Glucometer 165 mg/dL 80-115 Above high normal [facility] ([facility]) ID Date Data Source [id number] 12/15/2020 07:00:00 AM EDT [facility] ([facility]) Name Value Range Interpretation Code Description Data Tyra rce(s) Supporting Document(s) Glucose, Fasting 94 mg/dL 70-100 Normal (applies to non-numeric results) [facility] ([facility]) Creatinine For GFR 2.72 mg/dL 0.55-1.30 Above high normal [facility] Blood Urea Nitrogen 53 mg/dL 7-18 Above high normal [facility] Glomerular Filtration Rate 18.6 Below low normal [facility] <content>Units are mL/min/1.73 m2</content>
<content></content>
<content>Chronic Kidney Disease Staging per NKF:</content>
<content></content>
<content>Stage I & II GFR >=60 Normal to Mildly Decreased</content>
<content>Stage III GFR 30- 59 Moderately Decreased</content>
<content>Stage IV GFR 15-29 Severely Decreased</content>
<content>Stage V GFR <15 Very Little GFR Left</content>
<content>ESRD GFR <15 on WEED ERADICATOR</content>
<content></content> Sodium Level 138 meq/L 136-145 Normal (applies to non-numeric res ults) [facility] ([facility] ) Potassium Serum 3.8 meq/L 3.5-5.1 Normal (applies to non-numeric results) [facility] ([facility]) Chloride Level 99 meq/L 98-107 Normal (applies to non-numeric r esults) [facility] ([facility]) Anion Gap 10 meq/L 8-16 Normal (applies to non-numeric resul ts) [facility] ([facility]) Calcium Level 9.7 mg/dL 8.8-10.2 Normal (applies to non-numeric re sults) [facility] ([facility]) Carbon Dioxide Level 29 meq/L 21-32 Normal (applies to non-num [place] results) [facility] ([facility]) ID Date Data Source [id number] 12/12/2020 10:00:00 AM EDT [facility] Name Value Range Interpretation Code Description Data Tyra rce(s) Supporting Document(s) SARS-CoV-2 (COVID-19) RNA [Presence] in Respiratory specimen by ALLAN with probe detection Not Detected [facility] This lab was ordered by [facility] and reported by [employer]. ID Date Data Source [id number] 09/20/2020 03:15:00 PM EST [facility] Name Value Range Interpretation Code Description Data Tyra rce(s) Supporting Document(s) Hemoglobin A1C % Less than 5.7% Above high normal [facility] HBA1C: Normal: Less than 5.7% Prediabetes: 5.7% to 6.4% Diabetes: 6.5% or higher HA1C % vs Estimated Average Glucose (eAG) % eAG % eAG 6% 126 mg/dL 10% 240 mg/dL 7% 154 mg/dL 11% 269 mg/dL 8% 183 mg/dL 12% 298 mg/dL 9% 212 mg/dL Reference: [place] [employer], 2017 ID Date Data Source [id number] 09/20/2020 02:28:00 PM EST [facility] Name Value Range Interpretation Code Description Data Tyra rce(s) Supporting Document(s) Creatinine,Urine Normal (applies to non-numeric results) [facility] Interpret with care as there is no estab lished reference range associated with this assay's methodology that pertains to this particular sex and/or age. Microalbumin,Urine <1.7 Above high normal [facility] Albumin/Creatinine Ratio,Urine Normal (applies to non-numeric results) [facility] Reference Ranges for Microalbumin,spot: Normal <30 ug/mg creatinine Microalbuminuria 30-300 ug/mg creatinine Clinical Albuminuria >300 ug/mg creatinine ID Date Data Source [id number] 09/20/2020 11:49:00 AM EST [facility] Name Value Range Interpretation Code Description Data Tyra rce(s) Supporting Document(s) Sodium 137 mmol/L 137-145 Normal (applies to non-numeric resul ts) [facility] Potassium 3.5-5.1 Normal (applies to non-numeric resul ts) [facility] Chloride 103 mmol/L 98-112 Normal (applies to non-numeric resul ts) [facility] Carbon Dioxide CO2 22.0-33.0 Normal (applies to non-numer ic results) [facility] Anion Gap 4.0-11.0 Normal (applies to non-numeric resul ts) [facility] BUN 62 mg/dL 7-17 Above high normal [facility] Creatinine 0.70-1.20 Above high normal [facility] GFR 16 mL/min >60 Below low normal [facility] Result based on MDRD formula. Glucose Level 260 mg/dL 74-99 Above high normal [facility] The reference range is only applicable w hen fasting. Calcium-Uncorrected 8.4-10.2 Normal (applies to non-nume yun results) [facility] Corrected Calcium 8.4-10.2 Normal (applies to non-numeri c results) [facility] ID Date Data Source [id number] 09/10/2020 10:56:00 AM EST [facility] Name Value Range Interpretation Code Description Data Tyra rce(s) Supporting Document(s) SARS coronavirus 2 RNA [Presence] in Res piratory specimen by ALLAN with probe detection NEGATIVE [facility] This lab was ordered by [facility] a nd reported by [facility]. ID Date Data Source [id number] 07/10/2020 09:01:00 AM EST [facility] [address] [place] [address] PHONE: [phone] FAX: [phone] Name .................. : EARNESTINEYELENA OXANA Escamilla Acct Number.................. : [id number] ROOM. ................. : [facility] Number ................... : [id number] Stay type ............. : E/R Discharge Date......... ... : 07/05/20 Admit Date ......... : 07/05/20 Admit Phys .................... : TONIA CASPER Date of ....... : 1950 Family Phys ................... : REASON EDW Phone .................. : [phone] Age ................................ : 69 Film# .................. .:[id number] Sex ................................. : F Unsigned transcriptions are preliminary reports and do not represent a medical or legal document [place] [id number] COMPLETE:07/05/20 19:10 SERINA 71557 Reason(s): Hx of osteo and gangrene FIRST [...] rce(s) Supporting Document(s) ID Date Data Source [id number] 07/10/2020 09:01:00 [place] [address] PHONE: [phone] FAX: [phone] Name .................. : SABA Escamilla Acct Number.................. : [id number] ROOM. ................. : TR-05 MR Number ................... : [id number] Stay type ............. : E/R Discharge Date......... ... : 07/05/20 Admit Date ......... : 07/05/20 Admit Phys .................... : TONIA CASPER Date of ....... : 1950 Family Phys ................... : REASON EDW Phone .................. : [phone] Age ................................ : 69 Film# .................. .:[id number] Sex ................................. : F Unsigned transcriptions are preliminary reports and do not represent a medical or legal document CHEST 2 VIEWS 46583 COMPLETE:07/05/20 19:10 SERINA 43200 Reason(s): b/l LE edema w/ hx of [...] Date: 07/05/20 23:54, Dictation Date: Copy for: JEREYM AGUILAR via fax Copy for: EMERGENCY DEPT via modem Copy for: 710 MED REC DISCHARGED Page 1 of 1 Name Value Range Interpretation Code Description Data Tyra rce(s) Supporting Document(s) ID Date Data Source [id number] 07/10/2020 09:01:00 AM EST [facility] [address] [place] [address] PHONE: [phone] FAX: [phone] Name .................. : SABA Escamilla Acct Number.................. : [id number] ROOM. ................. : [address] Number ................... : [id number] Stay type ............. : E/R Discharge Date......... ... : 07/05/20 Admit Date ......... : 07/05/20 Admit Phys .................... : TONIA CASPER Date of ....... : 1950 Family Phys ................... : REASON EDW Phone .................. : [phone] Age ................................ : 69 Film# .................. .:[id number] Sex ................................. : F Unsigned transcriptions are preliminary reports and do not represent a medical or legal document US DOPPLER VENOUS BILAT LEG 60609 COMPLETE:07/05/20 18:41 ADB 43015 Reason(s): Pain, Limb BILATERAL LOWER EXTREMITY DUPLEX [...] rce(s) Supporting Document(s) ID Date Data Source [id number] 07/06/2020 07:13:00 [place] [address] RESPIRATORY CARE REPORT ==== ---------NAME------- NUMBER SEX AGE ADMIT DISC. XRAY# F/C ASA Escamilla [id number] F 69 07/05/20 07/05/20 [id number] MBJoel E/R DATE OF : 1950 M/R# [id number] #: [id number] TR-05 LOCATION: EMERGENCY DEPT EKG 63608 COMP LETE:07/05/20 23:50 [place] 13268 PHYSICIAN: TONIA LUNA CH Name Value Range Interpretation Code Description Data Tyra rce(s) Supporting Document(s) ID Date Data Source [id number] 07/05/2020 03:34:00 PM [facility] 1 OrderSheet [facility] Emergency Department [address] [place] [address] Phone #: [phone]- [phone] 07/05/2020 15:34 Patient: OXANA CLANCY Sex: F [...] Rellpatricio Jeremy RouseNBoyd17:51 07/05/2020) PCarmen; 2 OrderSheet [facility] Emergency Department [address] [place] [address] Phone #: ext- [phone] 07/05/2020 15:34 Patient: OXANA CLANCY Sex: F [...] Pressure 16:30 07/05/2020 16:34 Diamond,Monitor Justino Dixon.N. P.A.-C;Refrigeration Plant Operator 16:30 07/05/2020 16:34 Diamond,(continuous) Justino Dixon.N. P.A.- C;EKG 16:30 07/05/2020 16:34 Justino Fields R.N.-C;NPO 16:30 07/05/2020 16:34 Justino Fields R.N. P.ABoyd-C;Obtain Old EKG 16:30 07/05/2020 16:34 Justino Fields R.N.ABoyd-C;Obtain Old Records 16:30 07/05/2020 16:34 Justino Fields R.N. PBoydABoyd- C;Pulse oximeter 16:30 07/05/2020 16:34 Diamond, 3 OrderSheet [facility] Emergency Department [address] [place] [address] Phone #: ext- [phone] 07/05/2020 15:34 Patient: [...] rce(s) Supporting Document(s) ID Date Data Source [id number] 07/05/2020 03:34:00 PM EST [facility] 1 Medication Reconciliation Report [facility] Emergency Department [address] [place] [address] Phone #: ext- [phone] 07/05/2020 15:34 Patient: [...] 1 tablet, 2x a day, last dose: [id number] Lasix Oral (20 mg), daily Losartan Potassium Oral 50 mg, daily Multivit amins Oral 1 pill, daily Omeprazole Oral 40 mg, daily Plavix Oral ROPINIRole HCl Oral (1 mg) 1 tablet, 2x a day, last dose: [id number] 2 Medication Reconciliation Report [facility] Emergency Department [address] [place] [address] Phone #: ext- [phone] 07/05/2020 15:34 Patient: [...] Value Range Interpretation Code Description Data [facility]ra [facility](s) Supporting Document(s) ID Date Data Source [id number] 07/05/2020 03:34:00 PM [facility] 1 Medication Administration Record [facility] Emergency Department [address] [place] [address] Phone #: ext- [phone] 07/05/2020 15:34 Patient: OXANA CLANCY Sex: F : 1950 Age: 69yWeight: 93.8 kgHeight/Length: 61 inBMI: 39.1ALLERGIES: PenicillinsDate/Time Medication Administered Medication Ordered Name Value Range Interpretation Code Description Data [facility](s) Supporting Document(s) ID Date Data Source [id number] 07/05/2020 03:34:00 PM [facility] 1 General Instructions [facility] Emergency Department [address] [place] [address] Phone #: ext- [phone] 07/05/2020 15:34 Patient: OXANA CLANCY Sex: F : 1950 Age: 69yCellulitis of the right foot.Subacute osteomyelitis of the right foot- from local infection.(Electronically signed by Justino Luna P.A.-C 07/05/2020 20:13) Name Value Range Interpretation Code Description Data Tyra rce(s) Supporting Document(s) ID Date Data Source [id number] 07/05/2020 03:34:00 PM EST [facility] 1 Clinical Report - Nurses [facility] Emergency Department [address] [place] [address] Phone #: ext- [phone] 07/05/2020 15:34 Patient: OXANA CLANCY Sex: F : 1950 Age: 69yTRIAGE Arrived by private vehicle. Historian: patient. Accompanied by friend. Triage time: 15:37 07/05/2020. Acuity: LEVEL 3. Chief Complaint: RIGHT LOWER EXTREMITY PAIN and SWELLING. LEFT LOWER EXTREMITY PAIN and SWELLING. Alert. Onset. (pt states "this is ongoing" worse about 4 days. pt d/c from [facility] Friday for same issue). She has had swelling. ( pt had US last week. Pt has blockage in right leg, 1 balloon placed. pt reports procedure to be repeated Friday. pt reports infection in right great toe. pt reports she was told it may be osteomyelitis and require amputation). 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 --15:43 07/05/20 Leslie Reyna R.N. 15:37 [...] Reyna R.N. 2 Clinical Report - Nurses [facility] Emergency Department [address] [place] [address] Phone #: ext- [phone] 07/05/2020 15:34 Patient: [...] uses cane. 3 Clinical Report - Nurses [facility] Emergency Department [address] [place] [address] Phone #: ext- [phone] 07/05/2020 15:34 Patient: [...] sonogram by wheelchair with IV, mask and nuclear medicine chief technologist. --16:47 07/05/20 Beatriz Fields R.N. 16:09 07/05/2020 [...] Fields R.N. late entry - 17:45 07/05/20. personnel monitor, NIBP monitor and pulse oximeter placed on [...] Fields R.N. 4 Clinical Report - Nurses [facility] Emergency Department [address] [place] [address] Phone #: ext- [phone] 07/05/2020 15:34 Patient: [...] Fields R.N. late entry - 18:45 07/05/20. personnel monitor, NIBP monitor and pulse oximeter placed on [...] late entry - 18:54 07/05/20. ( Called [facility] to give NTN). --19:24 07/05/20 Beatriz Fields R.N. late entry - 19:11 07/05/20. ( Called again to give report to [facility] too busy). --19:25 07/05/20 Beatriz Fields R.N. ( Spoke with [facility] motor vehicle assembly supervisor regarding report was told to get fax number and send the overview). --19:26 07/05/20 Beatriz Fields R.N.DISPOSITION / DISCHARGE 19:49 07/05/[address] Site #[address] upon transfer. --19:49 07/05/20 Matt Quintanilla RN Departure time: 19:51 07/05/2020. Condition at departure: stable. Transferred to [facility]. Visit overview, summary of care (CCDA), Emtala forms and Face Sheet provided to EMS and transfer facility via paper. Transported via ambulance by EMS ([facility]). Report was given via visit overview. Report was acknowledged. --19:52 07/05/20 Matt Quintanilla RN 5 Clinical Report - Nurses [facility] Emergency Department [address] [place] [address] Phone #: ext- [phone] 07/05/2020 15:34 Patient: OXANA CLANCY Sex: F : 1950 Age: 69y 19:49 07/05/20. BP: 170/86. MAP: 114. HR: 72. RR: 18. O2 saturation: 95%. Temp: 98.6 F. Pain level now: 11/08. --19:52 07/05/20 Matt Quintanilla RN.Locked/Released at 07/06/2020 05:21 by Vivi Quintanilla R.N. Name Value Range Interpretation Code Description Data Tyra rce(s) Supporting Document(s) ID Date Data Source [id number] 07/05/2020 03:34:00 PM EST [facility] 1 Clinical Report - Physicians/Mid Levels [facility] Emergency Department [address] [place] [address] Phone #: ext- [phone] 07/05/2020 15:34 Patient: [...] R foot. Pt was recetnly dc'ed from [facility] on Friday for multiple issues. Orgianlly presented to the [facility] ER with nonhealing R toe [...] [Chronic]. 2 Clinical Report - Physicians/Mid Levels [facility] Emergency Department [address] [place] [address] Phone #: ext- [phone] 07/05/2020 15:34 Patient: [...] Oral. 3 Clinical Report - Physicians/Mid Levels [facility] Emergency Department [address] [place] [address] Phone #: ext- [phone] 07/05/2020 15:34 Patient: [...] intact 4 Clinical Report - Physicians/Mid Levels [facility] Emergency Department [address] [place] [address] Phone #: ext- [phone] 07/05/2020 15:34 Patient: OXANA CLANCY Sex: F [...] Tests: Blood Culture: (SANDY: 07/05/2020 18:01) ( [facility] 07/[facility] 18[facility]16[facility] Canceled Sed. Rate: (SANDY: 07/05/2020 16:30) ( [facility] 07/05/2020 17:54) Su l results Test Result Flag Units (Reference) SED RATE 111 H mm/hr (0 - 30) SED RATE REENTER 111 CRP: (SANDY: 07/05/2020 16:30) ( [facility] 07/05/2020 17:09) Final results Test Result Flag Units (Reference) CRP-HS 14.86 H MG/L (1.00 - 3.00) CDC/AHS HS-CRP CUT-OFF: RELATIVE RISK: <1.0 mg/L Low 1.0 - 3.0 mg/L Average >3.0 mg/L High Optimally, the average of HS-CRP results repeated two weeks apart should be used for risk assessment. CBC w Diff: (SANDY: 07/05/2020 16:30) ( [facility] 07/05/2020 16:54) Final results Test Result Flag Units (Reference) CBC W/AUTOMATED DIFF COMPLETE BLOOD COUNT WBC 11.7 H 10/uL (4.2 - 11.0) RBC 3.11 L 10/uL (4.20 - 5.40) HEMOGLOBIN 8.8 L g/dL (12.0 - 16.0) HEMATOCRIT 26.7 L % (37.0 - 47.0) MCV 85.9 fL (81.0 - 101) 5 Clinical Report - Physicians/Mid Levels [facility] Emergency Department [address] [place] [address] Phone #: ext- [phone] 07/05/2020 15:34 Patient: OXANA CLANCY Sex: F [...] Male GFR Interprentation 20-49 yrs >60 mL/min Zhqjnl38-98 yrs >56 mL/min Normal 60-69 yrs >49 mL/min Normal 70-79yrs>42 mL/min Normal 80 and above >35 mL/min Normal Female GFRInterpretation 20-39 yrs >60 mL/min Normal 40-49 yrs >58 mL/minNormal 50-59 yrs >51 mL/min Normal 60-69 yrs >45 mL/min Qjwdwv71-84 yrs >39 mL/min Normal 80 and above >32 mL/min NormalLipase: (SANDY: 07/05/2020 16:30) ( MsgRcvd 07/05/2020 17:09) Final results Test Result Flag Units (Reference) LIPASE 13 U/L (13 - 60) 6 Clinical Report - Physicians/Mid Levels [facility] Emergency Department [address] [place] [address] Phone #: ext- [phone] 07/05/2020 15:34 Patient: OXANA CLANCY Sex: F : 1950 Age: 69y PT/PTT: (SANDY: 07/05/2020 16:30) ( AlgRcvd 07/05/2020 17:09) Final results Test Result Flag Units (Reference) PROTIME 18.7 H SECONDS (11.0 - 15.5) INR 1.54 H (0.93 - 1.23) PTT 44.9 H SECONDS (24.8 - 36.7) \\BLDo\\INR INTERPRETATION\\BLDx\\ Therapeutic range for Coumadin and related oral anticoagulants. - International Normalized Ratio (INR): 2.0 - 3.0 for Venous Thrombosis, Pulmonary Embolus, Tissue heart valves, Acute SC Atrial Fibrillation, Valvular heart disease and recurrent [...] concerns, or complaints. Pt recently discharged from [facility] for numerous nad various issues. [...] further eval. Pending resutls. reviewed documenation form [facility]. pt was on IV vanc. [...] worsening. 7 Clinical Report - Physicians/Mid Levels [facility] Emergency Department [address] [place] [address] Phone #: ext- [phone] 07/05/2020 15:34 Patient: OXANA CLANCY Sex: F : 1950 Age: 69y Pt failed outpt therapy. Pt may be a candidtate for central line as oral abx are not working. Will contact [facility] for [facility] as we do not have ortho, podiatry, or PICC team. Called [facility] and dicussed with Vivi [facility] calls back. Discuss with Dr. [...] health care provider (Tonia). Disposition: Transferred to [facility]. UTI (catheter associated) was not [...] rce(s) Supporting Document(s) ID Date Data Source [id number] 07/11/2020 07:00:00 AM [facility] [id number] Name Value Range Interpretation Code Description Data Tyra rce(s) Supporting Document(s) Bacteria identified in Blood by Culture [facility] NO GROWTH AFTER 5 DAYS ID Date Data Source [id number] 07/11/2020 08:12:00 AM [facility] Name Value Range Interpretation Code Description Data Tyra rce(s) Supporting Document(s) CULTURE BLOOD [facility] spital _CULTURE BLOOD_ [place] [address] IA# [id number] SEE SCANNED REPORT{ PRELIM ID Date Data Source [id number] 07/05/2020 05:54:00 PM [facility] Name Value Range Interpretation Code Description Data Tyra rce(s) Supporting Document(s) Erythrocyte sedimentation rate by Westergren method 111 mm/hr 0 - 30 H [facility] SED RATE REENTER 111 [facility] ID Date Data Source [id number] 07/05/2020 05:09:00 PM [facility] Name Value Range Interpretation Code Description Data Tyra rce(s) Supporting Document(s) Prothrombin time (PT) 18.7 SECONDS 11.0 - 15.5 H [facility] INR in Platelet poor plasma by Coagulation assay 1.54 0.93 - 1. 23 H [facility] aPTT in Blood by Coagulation assay 44.9 SECONDS 24.8 - 36.7 H [facility] \\BLDo\\INR INTERPRETATION\\BLDx\\ Therapeutic range for Coumadin and related oral anticoagulants. - International Normalized Ratio (INR): 2.0 - 3.0 for Venous Thrombosis, Pulmonary Embolus, Tissue heart valves, Acute SC Atrial Fibrillation, Valvular heart disease and recurrent Systemic Embolism. - International Normalized Ratio (INR): 2.5 - 3.5 for Mechanical Prosthetic valve. ID Date Data Source [id number] 07/05/2020 05:09:00 PM [facility] Name Value Range Interpretation Code Description Data Tyra rce(s) Supporting Document(s) C reactive protein [Mass/volume] in Serum or Plasma by High sensitivity method 14.86 MG/L 1.00 - 3.00 H [facility] HS-CRP CUT-OFF: RELATIVE RISK: <1.0 mg/L Low 1.0 - 3.0 mg/L Average >3.0 mg/L High Optimally, the average of HS-CRP results repeated two weeks apart should be used for risk assessment. ID Date Data Source [id number] 07/05/2020 05:09:00 PM [facility] Name Value Range Interpretation Code Description Data Tyra rce(s) Supporting Document(s) BNP 4850 PG/ML 0 - 125 H [facility] ID Date Data Source [id number] 07/05/2020 05:09:00 PM [facility] Name Value Range Interpretation Code Description Data Tyra rce(s) Supporting Document(s) Lipase [Enzymatic activity/volume] in Serum or Plasma 13 U/L 13 - 60 [facility] ID Date Data Source [id number] 07/05/2020 05:08:00 PM [facility] Name Value Range Interpretation Code Description Data Tyra rce(s) Supporting Document(s) COMPREHENSIVE METABOLIC PANEL [facility] COMPREHENSIVE METABOLIC PANEL Sodium [Moles/volume] in Serum or Plasma 136 mEq/L 134 - 153 [facility] Potassium [Moles/volume] in Serum or Plasma 4.3 mEq/L 3.6 - 5.0 [facility] Chloride [Moles/volume] in Serum or Plasma 105 mEq/L 98 - 107 [facility] Carbon dioxide, total [Moles/volume] in Serum or Plasma 24 MEQ/L 22 - 30 [facility] Glucose [Mass/volume] in Serum or Plasma 188 MG/DL 65 - 110 H [facility] BUN 44 MG/DL 7 - 21 H [facility] al Creatinine [Mass/volume] in Serum or Plasma 1.9 MG/DL 0.7 - 1.5 H [facility] BUN/CREAT 23 8 - 27 [facility] al Protein [Mass/volume] in Serum or Plasma 5.3 G/DL 6.3 - 8.2 L [facility] Albumin [Mass/volume] in Serum or Plasma 3.0 G/DL 3.9 - 5.0 L [facility] Globulin [Mass/volume] in Serum by calculation 2.3 GM/DL 2.4 - 3.2 L [facility] A/G RATIO 1.3 0.8 - 2.0 [facility] Calcium [Mass/volume] in Serum or Plasma 8.7 MG/DL 8.4 - 10.2 [facility] Bilirubin.total [Mass/volume] in Serum or Plasma <0.7 MG/DL 0.2 - 1.3 [facility] Alkaline phosphatase [Enzymatic activity/volume] in Serum or Plasma 106 U/L 38 - 126 [facility] Aspartate aminotransferase [Enzymatic activity/volume] in Serum or Plasma 20 U/L 5 - 40 [facility] Alanine aminotransferase [Enzymatic activity/volume] in Seru m or Plasma 20 U/L 7 - 56 [facility] Anion gap 3 in Serum or Plasma 7.0 mmol/L 8.0 - 16.0 L [facility] 69 [facility] 28 mL/min [facility] AFR AMER GFR >60 [facility] Male GFR In terprentation 20-49 [...] >32 mL/min Normal ID Date Data Source [id number] 07/05/2020 05:04:00 PM [facility] Name Value Range Interpretation Code Description Data Tyra rce(s) Supporting Document(s) TROPONIN T 0.03 NG/ML 0.00 - 0.10 [facility] spital TROPONIN T0.1 ng/ml Recommended as the c linical threshold value forTroponin T. ID Date Data Source [id number] 07/05/2020 04:52:00 PM [facility] Name Value Range Interpretation Code Description Data Tyra e(s) Supporting Document(s) CBC W/AUTOMATED DIFF [facility] COMPLETE BLOOD COUNT Leukocytes [#/volume] in Blood by Automated count 11.7 10^3/uL 4.2 - 11.0 H [facility] Erythrocytes [#/volume] in Blood by Automated count 3.11 10^6/uL 4. 20 - 5.40 L [facility] Hemoglobin [Mass/volume] in Blood 8.8 g/dL 12.0 - 16.0 L [facility] Hematocrit [Volume Fraction] of Blood by Automated count 26.7 % 3 7.0 - 47.0 L [facility] Erythrocyte mean corpuscular volume [Entitic volume] by Auto mated count 85.9 fL 81.0 - 101 [facility] Erythrocyte mean corpuscular hemoglobin [Entitic mass] by Automated count 28.3 pg 27.0 - 34.0 [facility] Erythrocyte mean corpuscular hemoglobin concentration [Mass/volume] by Automated count 33.0 g/dL 31.0 - 36.0 [facility] Erythrocyte distribution width [Ratio] by Automated count 12.9 % 11.5 - 14.5 [facility] Platelets [#/volume] in Blood by Automated count 234 10^3/uL 150 - 45 0 [facility] Platelet mean volume [Entitic volume] in Blood by Automated count 10.3 fL 7.4 - 10.4 [facility] Neutrophils/100 leukocytes in Blood by Automated count 74.3 % 37. 0 - 80.0 [facility] Lymphocytes/100 leukocytes in Blood by Manual count 15.1 % 25.0 - 40.0 L [facility] Monocytes/100 leukocytes in Blood by Automated count 7.5 % 3.0 - 8.0 [facility] Eosinophils/100 leukocytes in Blood by Automated count 1.8 % 0.0 - 7.0 [facility] Basophils/100 leukocytes in Blood by Automated count 0.3 % 0.0 - 2.5 [facility] %IG 1.0 % 0.0 - 0.0 H [facility] al %NRBC 0.0 % 0.0 - 0.0 [facility] al Neutrophils [#/volume] in Blood by Automated count 8.73 10^3/uL 2.00 - 6.90 H [facility] Lymphocytes [#/volume] in Blood by Automated count 1.77 10^3/uL 0.60 - 3.40 [facility] Monocytes [#/volume] in Blood by Automated count 0.88 10^3/uL 0.00 - 0.90 [facility] Eosinophils [#/volume] in Blood by Automated count 0.21 10^3/uL 0.00 - 0.70 [facility] Basophils [#/volume] in Blood by Automated count 0.03 10^3/uL 0.00 - 0.20 [facility] #IG 0.12 10^3/uL 0.00 - 0.10 H [facility] H ospital #NRBC 0.00 10^3/uL 0.00 - 0.00 [facility] ospital MANUAL DIFF NOT INDICATED [facility] RBC MORPH NOT INDICATED [facility] spital ID Date Data Source [id number] 05/31/2020 04:25:00 PM EDT [facility] 1 OrderSheet [facility] Emergency Department [address] [place] [address] Phone #: ext- [phone] 05/31/2020 16:14 Patient: [...] rce(s) Supporting Document(s) ID Date Data Source [id number] 05/31/2020 04:25:00 PM EDT [facility] 1 Medication Reconciliation Report [facility] Emergency Department [address] [place] [address] Phone #: ext- [phone] 05/31/2020 16:14 Patient: [...] 1 tablet, 2x a day, last dose: [id number] Lasix Oral (80 mg), daily Losartan Potassium Oral 50 mg, daily Multivitamins Oral 1 pill, daily Omeprazole Oral 40 mg, daily Potassium Citrate ER Oral (10 MEQ (1080 MG)) 1 tablet, 2x a day ROPINIRole HCl Oral (1 mg) 1 tablet, 2x a day, last dose: [id number] Sertraline HCl Oral 50 mg, 2x a day Spironolactone Oral 50 mg, 2x a day 2 Medication Reconciliation Report [facility] Emergency Department [address] [place] [address] Phone #: ext- [phone] 05/31/2020 16:14 Patient: [...] rce(s) Supporting Document(s) ID Date Data Source [id number] 05/31/2020 04:25:00 PM EDT [facility] 1 Medication Administration Record [facility] Emergency Department [address] [place] [address] Ph one #: ext- [phone] 05/31/2020 16:14 Patient: OXANA CLANCY Sex: F : 1950 Age: 69yWeight: 90.4 kgHeight/Length: 61 inBMI: 37.7ALLERGIES: Penicillins Date/Time Medication Administered Medication OrderedGiven SILVER NITRATE SWAB Silver Nitrate Swab 1 [id number] 05/31/2020 Dose: 1 application Topical SolutionSimon Avelar R.N. Topical Name Value Range Interpretation Code Description Data Tyra rce(s) Supporting Document(s) ID Date Data Source [id number] 05/31/2020 04:25:00 PM EDT [facility] 1 General Instructions [facility] Emergency Department [address] [place] [address] Phon e #: ext- [phone] 05/31/2020 16:14 [...] closure or skin glue. 2 General Instructions [facility] Emergency Department [address] [place] [address] Phone #: ext- [phone] 05/31/2020 16:14 Patient: [...] pain medicines were prescribed, you can use jmll-elz-mbmhhbb pain medicines. Follow instructions for taking any [...] while the glue is 3 General Instructions [facility] Emergency Department [address] [place] [address] Phone #: ext- [phone] 05/31/2020 16:14 Patient: OXANA CLANCY Sex: F [...] be painful when eating. You may use upxnop-toq-nnhvkeo local numbing solution for pain relief. If [...] any of these occur: 4 General Instructions [facility] Emergency Department [address] [place] [address] Phone #: ext- [phone] 05/31/2020 16:14 Patient: [...] bleeding with direct pressure. 1999- 2017 [employer]. [address] [place] [address]. All rights reserved. This information is not intended as asubstitute for professional medical care. Always follow your healthcare professional's instructions. You have been given the following additional information: Laceration: All Closures(Electronically signed by Justino Luna P.A.-C 05/31/2020 23:24) Name Value Range Interpretation Code Description Data Tyra rce(s) Supporting Document(s) ID Date Data Source [id number] 05/31/2020 04:25:00 PM EDT [facility] 1 Clinical Report - Nurses [facility] Emergency Department [address] [place] [address] Phone #: ext- [phone] 05/31/2020 16:14 Patient: OXANA CLANCY Sex: F : 1950 Age: 69yTRIAGEArrived by private vehicle. Historian: patient. ( Pt presents with left thumb, pointer and ring finger lacfrom yesterday AM 0900, was seen at [facility] ER then urgent care c/o increased bleeding to [facility]).Acuity: LEVEL 3.Chief Complaint: INJURY TO LEFT [...] mg, daily. 2 Clinical Report - Nurses [facility] Emergency Department [address] [place] [address] Phone #: ext- [phone] 05/31/2020 16:14 Patient: [...] learning barriers present. Written instructions provided in [place]. 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 She left ambulatory [...] rce(s) Supporting Document(s) ID Date Data Source [id number] 05/31/2020 04:25:00 PM EDT [facility] 1 Clinical Report - Physicians/Mid Levels [facility] Emergency Department [address] [place] [address] Phone #: ext- [phone] 05/31/2020 16:14 Patient: [...] yesterday AM 0900. Pt was seen at [facility] ER, then to urgent care today [...] Heart Failure. Anemia. 2 Clinical Report - Physicians/[facility] Emergency Department [address] [place] [address] Phone #: ext- [phone] 05/31/2020 16:14 Patient: OXANA CLANCY [facility]#: [id number] Sex: F : 1950 Age: 69yHeart Disease.Hyperglycemia.Hypertension.Skin [...] 1 tablet, 2x a day, last dose [id number].Lasix Oral (Tablet 80 mg), daily.Losartan Potassium Oral 50 mg, daily.Multivitamins Oral 1 pill, daily.Omeprazole Oral 40 mg, daily.Potassium Citrate ER Oral (Tablet Extended Release 10 MEQ (1080 MG)) 1 tablet, 2x a day.ROPINIRole HCl Oral (Tablet 1 mg) 1 tablet, 2x a day, last dose [id number]. 3 Clinical Report - Physicians/Mid Levels [facility] Emergency Department [address] [place] [address] Phone #: ext- [phone] 05/31/2020 16:14 Patient: [...] chemcial 4 Clinical Report - Physicians/Mid Levels [facility] Emergency Department [address] [place] [address] Phone #: ext- [phone] 05/31/2020 16:14 Patient: OXANA CLANCY Sex: F [...] patient. 5 Clinical Report - Physicians/Mid Levels [facility] Emergency Department [address] [place] [address] Phone #: ext- [phone] 05/31/2020 16:14 Patient: OXANA CLANCY Sex: F : 1950 Age: 69y(Electronically signed by Justino Luna P.A.-C 05/31/2020 23:24) Name Value Range Interpretation Code Description Data Tyra rce(s) Supporting Document(s) ID Date Data Source [id number] 05/19/2020 07:31:00 PM EDT [facility] 1 OrderSheet [facility] Emergency Department [address] [place] [address] Phone #: ext- [phone] 05/19/2020 19:17 Patient: [...] rce(s) Supporting Document(s) ID Date Data Source [id number] 05/19/2020 07:31:00 PM EDT [facility] 1 Medication Reconciliation Report [facility] Emergency Department [address] [place] [address] Phone #: ext- [phone] 05/19/2020 19:17 Patient: OXANA CLANCY Sex: F : 1950 Age: 69yWeight: 90.7 kgHeight/Length: 61 in.BMI: 37.8ALLERGIES: [facility] patient's Home Medications are listed below:CONTINUE TAKING [...] 1 tablet, 2x a day, last dose: [id number] 0045 Lasix Oral (80 mg), daily Losartan Potassium Oral 50 mg, daily Multivitamins Oral 1 pill, daily Omeprazole Oral 40 mg, daily Potassium Citrate ER Oral (10 MEQ (1080 MG)) 1 tablet, 2x a day ROPINIRole HCl Oral (1 mg) 1 tablet, 2x a day, last dose: [id number] Sertraline HCl Oral 50 mg, 2x a day Spironolactone Oral 50 mg, 2x a day 2 Medication Reconciliation Report [facility] Emergency Department [address] [place] [address] Phone #: ext- [phone] 05/19/2020 19:17 Patient: OXANA CLANCY Sex: F [...] Dispense 30capsule. Refills: 0. Substitution permitted.Pharmacy - [facility] [phone] ; [place] [address]. . -- BERTA Almonte Name Value Range Interpretation Code Description Data Tyra rce(s) Supporting Document(s) ID Date Data Source [id number] 05/19/2020 07:31:00 PM EDT [facility] 1 Medication Administration Record [facility] Emergency Department [address] [place] [address] Phone #: ext- [phone] 05/19/2020 19:17 Patient: OXANA CLANCY Sex: F [...] rce(s) Supporting Document(s) ID Date Data Source [id number] 05/19/2020 07:31:00 PM EDT [facility] 1 General Instructions [facility] Emergency Department [address] [place] [address] Phone #: ext- [phone] 05/19/2020 19:17 Patient: [...] Dispense 30capsule. Refills: 0. Substitution permitted.Pharmacy - [facility] [phone] ; [place] [address]. . 2 General Instructions [facility] Emergency Departme nt [address] [facility], [place] [address] Phone #: ext- [phone] 05/19/2020 19:17 Patient: OXANA CLANCY Sex: F [...] elf. Try to resist 3 General Instructions [facility] Emergency Department [address] [place] [address] Phone #: ext- [phone] 05/19/2020 19:17 Patient: OXANA CLANCY Sex: F : 1950 Age: 69y picking it off before that so the wound doesn't open up. When it gets wet, pat it dry.Here is some information about medicine: You may use ywjw-tox-goorfur medicine such as acetaminophen or ibuprofen to [...] if they will re-open 4 General Instructions [facility] Emergency Department [address] [place] [address] Phone #: ext- [phone] 05/19/2020 19:17 Patient: [id number] Sex: F : 1950 Age: 69y Bleeding not controlled by direct pressure 1999- 2017 [employer]. [address] [place] [address], [place] [address]. All rights reserved. This information is not intended as asubstitute for professional medical care. Always follow your healthcare professional's instructions. You have been given the following additional information: Skin Avulsion(Electronically signed by BERTA Almonte 05/19/2020 21:43) Name Value Range Interpretation Code Description Data Tyra rce(s) Supporting Document(s) ID Date Data Source [id number] 05/19/2020 07:31:00 PM EDT [facility] 1 Clinical Report - Nurses [facility] Emergency Department [address] [place] [address] Phone #: ext- [phone] 05/19/2020 19:17 Patient: OXANA CLANCY Sex: F : 1950 Age: 69yTRIAGEArrived by private vehicle. Historian: patient. Accompanied by friend.Triage time: 19:05/19/2020.Chief Complaint: RIGHT LOWER EXTREMITY PAIN.An injury may have occurred. Occurred at home. This started last night. ( Tore skin off the outside ofright great toe). 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 Sepsis Screen negative. No suspected or confirmed signs ofinfection present. --19:05/19/20 Matt Quintanilla RN19:05/19/20. BP: 138/64 (regular adult cuff) taken on the left arm, via an automated monitor, whilelying. MAP: 88. HR: 71 (regular, normal rate and strong). RR: 18 (regular, unlabored and normal). X7zitugruopy: 97% on room air. Temp: 97.7 F. [...] a day. 2 Clinical Report - Nurses [facility] Emergency Department [address] [place] [address] Phone #: ext- [phone] 05/19/2020 19:17 Patient: [id number] Sex: F : 1950 Age: 69y Spironolactone [...] factors identified. --19:25 05/19/20 Matt Quintanilla RN.PHYSICAL [id number] 05/19/20. Ambulatory to room. 3 Clinical Report - Nurses [facility] Emergency Department [address] [place] [address] Phone #: ext- [phone] 05/19/2020 19:17 --- [facility]: [id number] Sex: F : 1950 Age: 69y GENERAL [...] 0.5 mL given(Lot#: [id number], expiration date: 06/08/2022, Music Adapter: Kato). Given in the right deltoid. Allergies verified [...] Patient verbalized understanding. Written instructions provided in [place]. 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 She was discharged home. She left ambulatory and via private vehicle. Family member driving. --20:47 05/19/20 Vivi Quintanilla R.N. 20:46 05/19/20. BP: deferred. HR: deferred. RR: deferred. O2 saturation: deferred. Temp: deferred. Pain level now deferred. --20:47 05/19/20 Vivi Quintanilla R.N.Locked/Released at 05/19/2020 22:10 by Harry Lee R.N. Name Value Range Interpretation Code Description Data Tyra rce(s) Supporting Document(s) ID Date Data Source [id number] 05/19/2020 07:31:00 PM EDT [facility] 1 Clinical Report - Physicians/Mid Levels [facility] Emergency Department [address] [place] [address] Phone #: ext- [phone] 05/19/2020 19:17 [facility]: [id number] Sex: F : 1950 Age: 69y Time [...] plan.). 2 Clinical Report - Physicians/Mid Levels [facility] Emergency Department [address] [place] [address] Phone #: ext- [phone] 05/19/2020 19:17 Patient: [...] permitted. 3 Clinical Report - Physicians/Mid Levels [facility] Emergency Department [address] [place] [address] Phone #: ext- [phone] 05/19/2020 19:17 Patient: OXANA CLANCY Sex: F : 1950 Age: 69y Pharmacy - [facility] [phone] ; [place] [address]. . Follow-up: Follow up with a specialist Podiatry. Reason for referral: evaluation and treatment. Summary of care provided to patient. Understanding of the discharge instructions verbalized by patient.(Electronically signed by BERTA Almonte 05/19/2020 21:43) Name Value Range Interpretation Code Description Data Tyra rce(s) Supporting Document(s) ID Date Data Source [id number] 05/02/2020 08:58:00 AM [facility] Name Value Range Interpretation Code Description Data Tyra rce(s) Supporting Document(s) Hemoglobin A1c 4.4-6.2 Above high normal [facility] Estimated Avg Glucose 192 mg/dL 126-240 Normal (applies to non-numeric results) [facility] ID Date Data Source [id number] 05/02/2020 08:58:00 AM [facility] Name Value Range Interpretation Code Description Data Tyra rce(s) Supporting Document(s) Sodium 142 mmol/L 136-145 Normal (applies to non-numeric resul ts) [facility] Potassium 3.5-5.1 Normal (applies to non-numeric resul ts) [facility] Chloride 104 mmol/L 98-107 Normal (applies to non-numeric resul ts) [facility] Carbon Dioxide CO2 21-32 Normal (applies to non-numer ic results) [facility] Anion Gap 5.0-16.0 Normal (applies to non-numeric resul ts) [facility] BUN 49 mg/dL 7-18 Above high normal [facility] ospital Creatinine,Serum 0.7-1.2 Above high normal [facility] GFR 26 mL/min >60 Below low normal [facility] spital Glucose Level 152 mg/dL 60-99 Above high normal [facility] [place] Reference range is only applicable when patient is fasting Note the following drug interference: Sulfasalazine Sulfapyridine Can see falsely depressed Can see falsely elevated result with up to 17% results with up to 11% decrease in measurement increase in measurement Recommend patients be collected for this test prior to administration of either drug. Calcium 8.5-10.1 Normal (applies to non-numeric resul ts) [facility] ID Date Data Source [id number] 05/02/2020 08:58:00 AM EDT [facility] Name Value Range Interpretation Code Description Data Tyra rce(s) Supporting Document(s) Triglycerides 149 mg/dL <150 Normal (applies to non-numeric re sults) [facility] Cholesterol 225 mg/dL 100-200 Above high normal [facility] LDL Cholesterol Calculated 134 0-130 Above high normal [facility] HDL Cholesterol 61 mg/dL 40-60 Above high normal [facility] Cholesterol/HDL Ratio 3.6-6.7 Normal (applies to non-nu meric results) [facility] ID Date Data Source [id number] 05/02/2020 08:58:00 AM EDT [facility] Name Value Range Interpretation Code Description Data Tyra rce(s) Supporting Document(s) B-Type Natriuretic Peptide BNP <125 Above high normal [facility] Results of this test should always be us ed in conjunction with the patients medical history, clinical presentation, and other findings. ID Date Data Source [id number] 05/02/2020 08:36:00 AM EDT [facility] Name Value Range Interpretation Code Description Data Tyra rce(s) Supporting Document(s) White Blood Count 3.5-10.5 Normal (applies to non-numeri c results) [facility] Red Blood Count 3.90-5.00 Below low normal [facility] Hemoglobin 12.0-15.5 Below low normal [facility] Hematocrit 34.9-44.5 Below low normal [facility] Mean Corpuscular Volume 81.2-95.1 Normal (applies to non- numeric results) [facility] Mean Corpuscular Hgb 25.6-32.2 Normal (applies to non-num [place] results) [facility] Mean Corpuscular Hgb Conc 32.0-36.0 Normal (applies to no n-numeric results) [facility] Red Cell Distribution Width 11.9-15.5 Normal (appli es to non-numeric results) [facility] Platelet Count 182 x10 3/uL 150-450 Normal (applies to non-numeric results) [facility] Mean Platelet Volume 9.4-12.4 Normal (applies to non-num [place] results) [facility] Neutrophils% (Auto) 31.0-71.0 Normal (applies to non-nume yun results) [facility] Lymphocytes% (Auto) 20.0-55.0 Normal (applies to non-nume yun results) [facility] Monocytes% (Auto) 4.0-12.0 Normal (applies to non-numeri c results) [facility] Eosinophils% (Auto) 1.0-8.0 Normal (applies to non-nume yun results) [facility] Basophils% (Auto) 0.0-2.0 Normal (applies to non-numeri c results) [facility] Immature Granulocytes% (Auto) 0.0-2.0 Normal (juanita lies to non-numeric results) [facility] Neutrophils# (Auto) 1.50-6.20 Normal (applies to non-nume yun results) [facility] Lymphocytes# (Auto) 1.20-4.00 Normal (applies to non-nume yun results) [facility] Monocytes# (Auto) 0.00-0.90 Normal (applies to non-numeri c results) [facility] Eosinophils# (Auto) 0.00-0.50 Normal (applies to non-nume yun results) [facility] Basophils# (Auto) 0.00-0.20 Normal (applies to non-numeri c results) [facility] Immature Granulocytes# (Auto) 0.00-7.00 No rmal (applies to non-numeric results) [facility] Procedure Social History Code Duration Value Status Description Data Source(s ) Alcohol intake 02/09/2021 12:00:00 AM EDT Current non-d swapna of alcohol (finding) completed Current non-drinker of alcohol (finding) [facility] Alcohol intake 01/15/2021 12:00:00 AM EDT Current drinker of al cohol (finding) completed Current drinker of alcohol (finding) [facility] Tobacco use and exposure 01/15/2021 12:00:00 AM EDT Never used co mpleted Never used [facility] Smoking 01/15/2021 12:00:00 AM EDT Former smoker completed Former smoker [facility] Smoking 07/17/2020 12:00:00 AM EST Never Smoked A Pipe complet ed Never Smoked A Pipe [facility] ([facility]) Vital Signs ID Date Data Source UNK Name Value Range Interpretation Code Description Data Source(s) Systolic blood pressure 198 mm[Hg] 198 mm[Hg] M [facility]ENT ([facility], ) Diastolic blood pressure 74 mm[Hg] 74 mm[Hg] [facility] ([facility], ) Body temperature 98.2 [degF] 98.2 [degF] [facility] ([facility], ) Body height 61 [in_i] 61 [in_i] [facility] ([facility], ) 5'1" Body weight 188.12 [lb_av] 188.12 [lb_av] [facility] T ([facility]) Body mass index (BMI) [Ratio] 35.5 kg/m2 35.5 k g/m2 [facility] ([facility]) [place] body weight 105 [lb_av] 105 [lb_av] [facility] T ([facility]) Body weight 85.334 kg 85.334 kg [facility] ([facility]) Body surface area Derived from formula 1.84 m2 1.84 m2 [facility] ([facility]) Body height 61 [in_i] 61 [...] MD) Heart rate 80 /min 80 /min [facility] (George Minor MD) Oxygen saturation in Arterial blood by Pulse oximetry 97 % 97 % [facility] (George Minor MD) [place] body weight 105 [lb_av] 105 [lb_av] [facility] T ([facility]) Body weight 85.447 kg 85.447 kg [facility] ([facility]) Heart rate 88 /min 88 /min [facility] ([facility]) Body height 61 [in_i] 61 [in_i] [facility] ([facility]) 5'1" Body weight 188.38 [lb_av] 188.38 [lb_av] [facility] T ([facility]) Systolic blood pressure 137 mm[Hg] 137 mm[Hg] M EDENT ([facility]) Diastolic blood pressure 73 mm[Hg] 73 mm[Hg] [facility] ([facility], ) Body temperature 98.3 [degF] 98.3 [degF] [facility] ([facility]) Body mass index (BMI) [Ratio] 35.6 kg/m2 35.6 k g/m2 [facility] ([facility]) Body surface area Derived from formula 1.84 m2 1.84 m2 [facility] ([facility]) Systolic blood pressure 140 mm[Hg] 140 mm[Hg] M EDENT (George Minor MD) Diastolic blood pressure 71 mm[Hg] 71 mm[Hg] [facility] (George [facility]) Heart rate 96 /min 96 /min [facility] (George Minor [facility]) Oxygen saturation in Arterial blood by Pulse oximetry 99 % 99 % [facility] (George Minor [facility]) Body height 61 [in_i] 61 [in_i] [facility] (George Minor MD) 5'1" Body weight 186.38 [lb_av] 186.38 [lb_av] [facility] (George Minor MD) Body mass index (BMI) [Ratio] 35.2 kg/m2 35.2 k g/m2 [facility] (George Minor [facility]) Body temperature 97.9 [degF] 97.9 [degF] [facility] ([facility]) Respiratory rate 18 /min 18 /min [facility] ( George Minor MD) Systolic blood pressure 181 mm[Hg] 181 mm[Hg] [facility] Diastolic blood pressure 72 mm[Hg] 72 mm[Hg] [facility] Heart rate 65 /min 65 /min [facility] Body temperature 36.72 Jackie 36.72 Jackie [facility] Respiratory rate 18 /min 18 /min [facility] Oxygen saturation in Arterial blood by Pulse oximetry 96 % 96 % [facility] Body weight 85.186 kg 85.186 kg [facility] Body mass index (BMI) [Ratio] 36.68 kg/m2 36.68 kg/m2 [facility] Body height 152.4 cm 152.4 cm [facility] Body temperature 97.9 [degF] 97.9 [degF] MED[facility] [...] Diastolic blood pressure 63 mm[Hg] 63 mm[Hg] [facility] (George Minor MD) Oxygen saturation in Arterial blood by Pulse oximetry 98 % 98 % [facility] (George Minor MD) Heart rate 90 /min 90 /min [facility] (George Minor MD) Body weight 198.00 [lb_av] 198.00 [lb_av] [facility] T ([facility]) Body height 61 [in_i] 61 [in_i] [facility] ([facility]) 5'1" Body mass index (BMI) [Ratio] 37.4 kg/m2 37.4 k g/m2 [facility] ([facility]) [place] body weight 105 [lb_av] 105 [lb_av] [facility] Body weight 89.813 kg 89.813 kg [facility] ([facility]) Body surface area Derived from formula 1.88 m2 1.88 m2 [facility] ([facility]) Body height 61 [in_i] 61 [in_i] [facility] 5'1" Body weight 198.00 [lb_av] 198.00 [lb_av] [facility] T ([facility]) Body mass index (BMI) [Ratio] 37.4 kg/m2 37.4 k g/m2 [facility] ([facility]) [place] body weight 105 [lb_av] 105 [lb_av] [facility] ([facility]) Body weight 89.813 kg 89.813 kg [facility] ([facility]) Body surface area Derived from formula 1.88 m2 1.88 m2 [facility] ([facility]) [place] body weight 105 [lb_av] 105 [lb_av] [facility] T ([facility]) Systolic blood pressure 185 mm[Hg] 185 mm[Hg] [facility] ([facility]) Body weight 91.230 kg 91.230 kg [facility] ([facility]) Body surface area Derived from formula 1.89 m2 1.89 m2 [facility] ([facility]) Diastolic blood pressure 72 mm[Hg] 72 mm[Hg] [facility] ([facility]) Heart rate 71 /min 71 /min [facility] ([facility]) Body height 61 [in_i] 61 [in_i] [facility] ([facility]) 5'1" Body weight 201.12 [lb_av] 201.12 [lb_av] [facility] ([facility]) Body mass index (BMI) [Ratio] 38.0 kg/m2 38.0 k g/m2 [facility] ([facility]) Diastolic blood pressure 65 mm[Hg] 65 mm[Hg] [facility] ([facility]) Body height 61 [in_i] 61 [in_i] [facility] ([facility]) 5'1" [place] body weight 105 [lb_av] 105 [lb_av] [facility] T ([facility]) Body weight 89.416 kg 89.416 kg [facility] ([facility]) Body surface area Derived from formula 1.88 m2 1.88 m2 [facility] ([facility]) Systolic blood pressure 134 mm[Hg] 134 mm[Hg] [facility] Body weight 197.12 [lb_av] 197.12 [lb_av] [facility] T ([facility]) Body mass index (BMI) [Ratio] 37.2 kg/m2 37.2 k g/m2 [facility] ([facility]) Systolic blood pressure 152 mm[Hg] 152 mm[Hg] M DANY ([facility]) Body height 61 [in_i] 61 [in_i] [facility] ([facility]) 5'1" Body weight 192.00 [lb_av] 192.00 [lb_av] [facility] ([facility]) Body mass index (BMI) [Ratio] 36.3 kg/m2 36.3 k g/m2 [facility] ([facility] Minor [facility]) Body temperature 98.1 [degF] 98.1 [degF] [facility] (George Minor MD) Oxygen saturation in Arterial blood by Pulse oximetry 96 % 96 % [facility] (George Minor MD) Diastolic blood pressure 72 mm[Hg] 72 mm[Hg] [facility] (George Minor MD) Heart rate 70 /min 70 /min [facility] (George Minor MD) Body weight 198.38 [lb_av] 198.38 [lb_av] [facility] ([facility]) Systolic blood pressure 152 mm[Hg] 152 mm[Hg] Valentina DANY ([facility]) Diastolic blood pressure 60 mm[Hg] 60 mm[Hg] [facility] ([facility]) Body height 61 [in_i] 61 [in_i] [facility] ([facility]) 5'1" Body mass index (BMI) [Ratio] 37.5 kg/m2 37.5 k g/m2 [facility] ([facility]) [place] body weight 105 [lb_av] 105 [lb_av] [facility] ([facility]) Body weight 89.983 kg 89.983 kg [facility] ([facility]) Body surface area Derived from formula 1.88 m2 1.88 m2 [facility] ([facility]) Body mass index (BMI) [Ratio] 36.5 kg/m2 36.5 k g/m2 [facility] (George Minor MD) Systolic blood pressure 121 mm[Hg] 121 mm[Hg] M [facility]ANY ([facility]) Body height 61 [in_i] 61 [in_i] [facility] (George Minor [facility]) 5'1" Body weight 193.00 [lb_av] 193.00 [lb_av] [facility] T (George Minor [facility]) Body temperature 97.7 [degF] 97.7 [degF] [facility] (George Minor MD) Diastolic blood pressure 52 mm[Hg] 52 mm[Hg] [facility] (George Minor MD) Heart rate 67 /min 67 /min [facility] (George Minor MD) Oxygen saturation in Arterial blood by Pulse oximetry 98 % 98 % [facility] (George Minor MD) Systolic blood pressure 92 mm[Hg] 92 mm[Hg] [facility] Diastolic blood pressure 44 mm[Hg] 44 mm[Hg] [facility] ([facility]) Body height 61 [in_i] 61 [in_i] [facility] ([facility]) 5'1" Body weight 197.12 [lb_av] 197.12 [lb_av] [facility] T ([facility]) Body mass index (BMI) [Ratio] 37.2 kg/m2 37.2 k g/m2 [facility] ([facility]) [place] body weight 105 [lb_av] 105 [lb_av] [facility] Body weight 89.416 kg 89.416 kg [facility] ([facility]) Body surface area Derived from formula 1.88 m2 1.88 m2 [facility] ([facility]) Diastolic blood pressure 64 mm[Hg] 64 mm[Hg] [facility] Systolic blood pressure 130 mm[Hg] 130 mm[Hg] M [facility]ANY ([facility]) Body height 61 [in_i] 61 [in_i] [facility] (George Minor MD) 5'1" Body weight 193.00 [lb_av] 193.00 [lb_av] [facility] (George [facility]) Heart rate 71 /min 71 /min [facility] (George Minor [facility]) Body mass index (BMI) [Ratio] 36.5 kg/m2 36.5 k g/m2 [facility] ([facility]) Body temperature 97.5 [degF] 97.5 [degF] [facility] (George [facility]) Respiratory rate 18 /min 18 /min [facility] ( George Minor MD) Oxygen saturation in Arterial blood by Pulse oximetry 97 % 97 % [facility] (George Minor MD) Systolic blood pressure 166 mm[Hg] 166 mm[Hg] [facility] ([facility]) Diastolic blood pressure 80 mm[Hg] 80 mm[Hg] [facility] ([facility]) Body height 61 [in_i] 61 [in_i] [facility] ([facility]) 5'1" Body weight 192.00 [lb_av] 192.00 [lb_av] [facility] T ([facility]) Body mass index (BMI) [Ratio] 36.3 kg/m2 36.3 k g/m2 [facility] ([facility]) [place] body weight 105 [lb_av] 105 [lb_av] [facility] T ([facility]) Body weight 87.091 kg 87.091 kg [facility] ([facility]) Body surface area Derived from formula 1.86 m2 1.86 m2 [facility] ([facility]) Systolic blood pressure 135 mm[Hg] 135 mm[Hg] M [facility] ([facility]) Diastolic blood pressure 60 mm[Hg] 60 mm[Hg] [facility] ([facility]) Body weight 210.00 [lb_av] 210.00 [lb_av] [facility] T ([facility]) Body mass index (BMI) [Ratio] 39.7 kg/m2 39.7 k g/m2 [facility] ([facility]) [place] body weight 105 [lb_av] 105 [lb_av] [facility] T ([facility]) Body weight 95.256 kg 95.256 kg [facility] ([facility], ) Body height 61 [in_i] 61 [in_i] [facility] ([facility], ) 5'1" ID Date Data Source [id number] 05/23/2021 10:43:00 AM EDT [facility] Name Value Range Interpretation Code Description Data Source(s) Weight (Calculated Kilograms) 90.29 90.29 [facility] Height (Calculated Centimeters) 154.94 154. 94 [facility] Body Mass Index (BMI) 37.5 37.5 [facility] ID Date Data Source [id number] 03/22/2021 12:02:00 AM EDT [facility] Name Value Range Interpretation Code Description Data Source(s) Weight (Calculated Kilograms) 91.63 91.63 [facility] Height (Calculated Centimeters) 154.94 154. 94 [facility] Body Mass Index (BMI) 38.1 38.1 [facility] ID Date Data Source [id number] 01/25/2021 11:18:02 AM EDT [facility] Name Value Range Interpretation Code Description Data Source(s) WEIGHT RECORDED 200.62 lb 200.62 lb [facility] WEIGHT RECORDED 206.13 lb 206.13 lb [facility] Body height Measured 61 in 61 in [facility] WEIGHT RECORDED 194 lb 194 lb [facility] WEIGHT RECORDED 198 lb 198 lb [facility] Body height Measured 61 in 61 in [facility] TRANSFER FROM [facility] ID Date Data Source [id number] 02/01/2021 07:12:00 AM EDT [facility] Name Value Range Interpretation Code Description Data Source(s) Weight (Calculated Kilograms) 91.63 91.63 [facility] Height (Calculated Centimeters) 154.94 154. 94 [facility] Body Mass Index (BMI) 38.1 38.1 [facility] ID Date Data Source [id number] 02/07/2021 08:51:00 AM EDT [facility] Name Value Range Interpretation Code Description Data Source(s) Weight (Calculated Kilograms) 90.29 90.29 [facility] Height (Calculated Centimeters) 154.94 154. 94 [facility] Body Mass Index (BMI) 37.5 37.5 [facility] ID Date Data Source [id number] 01/17/2021 07:54:00 AM EDT [facility] Name Value Range Interpretation Code Description Data Source(s) Weight (Calculated Kilograms) 90.29 90.29 [facility] Height (Calculated Centimeters) 154.94 154. 94 [facility] Body Mass Index (BMI) 37.5 37.5 [facility] ID Date Data Source [id number] 11/29/2020 08:29:00 AM EDT [facility] Name Value Range Interpretation Code Description Data Source(s) Weight (Calculated Kilograms) 90.29 90.29 [facility] Height (Calculated Centimeters) 154.94 154. 94 [facility] Body Mass Index (BMI) 37.5 37.5 [facility] ID Date Data Source [id number] 10/11/2020 09:29:00 AM EST [facility] Name Value Range Interpretation Code Description Data Source(s) Weight (Calculated Kilograms) 90.29 90.29 [facility] Height (Calculated Centimeters) 154.94 154. 94 [facility] Body Mass Index (BMI) 37.5 37.5 [facility] ID Date Data Source [id number] 06/14/2020 10:38:00 AM EDT [facility] Name Value Range Interpretation Code Description Data Source(s) Weight Measurement Method 8 8 [facility] Weight (Calculated Kilograms) 91.63 91.63 [facility] Weight 3200 3200 [facility] pital Temperature Source 7 7 [facility] Temperature 98.4 98.4 [facility] Respiratory Effort 1 1 [facility] Respiratory Rate 16 16 [facility] Pulse Assessment Method 4 4 G [facility] Pulse Rate 74 74 [facility] pital Height (Calculated Centimeters) 154.94 154. 94 [facility] Height 61 61 [facility] Blood Pressure 194/78 19478 [facility] Body Mass Index (BMI) 38.1 38.1 [facility] Weight Measurement Method 8 8 [facility] Weight (Calculated Kilograms) 91.63 91.63 [facility] Weight 3200 3200 [facility] pital Temperature Source 7 7 [facility] Temperature 98.4 98.4 [facility] sp[facility] Respiratory Effort 1 1 [facility] Respiratory Rate 16 16 [facility] Pulse Assessment Method 4 4 G [facility] Pulse Rate 74 74 [facility] pital Height (Calculated Centimeters) 154.94 154. 94 [facility] Height 61 61 [facility] pital Blood Pressure 194/ 194/78 [facility] Body Mass Index (BMI) 38.1 38.1 [facility] Weight (Calculated Kilograms) 91.63 91.63 [facility] Height (Calculated Centimeters) 154.94 154. 94 [facility] Body Mass Index (BMI) 38.1 38.1 [facility] ID Date Data Source [id number] 06/14/2020 09:37:00 AM EDT [facility] Name Value Range Interpretation Code Description Data Source(s) Weight (Calculated Kilograms) 90.29 90.29 [facility] Height (Calculated Centimeters) 154.94 154. 94 [facility] Body Mass Index (BMI) 37.5 37.5 [facility] ID Date Data Source [id number] 05/03/2020 12:01:00 AM EDT [facility] Name Value Range Interpretation Code Description Data Source(s) Weight (Calculated Kilograms) 91.63 91.63 [facility] Height (Calculated Centimeters) 154.94 154. 94 [facility] Body Mass Index (BMI) 38.1 38.1 [facility] ID Date Data Source [id number] 08/30/2020 07:58:00 AM EST [facility] Name Value Range Interpretation Code Description Data Source(s) Weight Measurement Method 8 8 [facility] Weight (Calculated Kilograms) 91.63 91.63 [facility] Weight [phone] [facility] pital Temperature Source 7 7 [facility] Temperature 96.9 96.9 [facility] Respiratory Effort 1 1 [facility] Respiratory Rate 16 16 [facility] Pulse Assessment Method 4 4 G [facility] Pulse Rate 54 54 [facility] Height (Calculated Centimeters) 154.94 154. 94 [facility] Height 61 61 [facility] Pressure 186/68 186/68 [facility] Body Mass Index (BMI) 38.1 38.1 [facility] Weight Measurement Method 8 8 [facility] Weight (Calculated Kilograms) 91.63 91.63 [facility] Weight 3168 3168 [facility] pital Temperature Source 7 7 [facility] Temperature 96.9 96.9 [facility] Respiratory Effort 1 1 [facility] Respiratory Rate 16 16 [facility] [place] Pulse Assessment Method 4 4 G [facility] Pulse Rate 51 51 [facility] p[facility] Height (Calculated Centimeters) 154.94 154. 94 [facility] Height 61 61 [facility] Blood Pressure 175/65 175/65 [facility] Body Mass Index (BMI) 38.1 38.1 [facility] Weight (Calculated Kilograms) 91.63 91.63 [facility] Height (Calculated Centimeters) 154.94 154. 94 [facility] Body Mass Index (BMI) 38.1 38.1 [facility] Weight (Calculated Kilograms) 91.63 91.63 [facility] Height (Calculated Centimeters) 154.94 154. 94 [facility] Body Mass Index (BMI) 38.1 38.1 [facility] Weight (Calculated Kilograms) 91.63 91.63 [facility] Height (Calculated Centimeters) 154.94 154. 94 [facility] Body Mass Index (BMI) 38.1 38.1 [facility] Patient Treatment Plan of Care Planned Activity Planned Date Details Description Data Source (s) Amlodipine 5 MG Oral Tablet 02/12/2021 12:00:00 AM EDT [facility] Aspirin 81 MG Delayed Release Oral Tablet 02/11/2021 12:00:00 AM ED T [facility] clopidogrel 75 MG Oral Tablet 02/11/2021 12:00:00 AM EDT [facility] Nitroglycerin 0.4 MG Sublingual Tablet 02/11/2021 12:00:00 AM EDT [facility] carvedilol 12.5 MG Oral Tablet 02/11/2021 12:00:00 AM EDT [facility] Nitroglycerin 0.4 MG Sublingual Tablet 02/07/2021 03:34:10 PM EDT [facility] Acetaminophen 325 MG / Oxycodone Hydrochloride 5 MG Or al Tablet 02/07/2021 03:33:30 PM EDT [facility] 3 ML Insulin Lispro 100 UNT/ML Pen Injector 01/19/2021 12:00:00 AM [facility] 3 ML Insulin Lispro 100 UNT/ML Pen Injector 01/19/2021 12:00:00 AM [facility] Insulin Syringe-Needle U-100 31G X 15/64" 0.5 ML 01/19/2021 12:00:0 0 AM [facility] 3 ML Insulin Lispro 100 UNT/ML Pen Injector 01/19/2021 12:00:00 AM [facility] Insulin Pen Needle 31G X 5 MM 01/19/2021 12:00:00 AM [facility] 3 ML Insulin Glargine 100 UNT/ML Pen Injector 01/19/2021 12:00:00 A M [facility] Isopropyl Alcohol 0.7 ML/ML Medicated Pad 01/19/2021 12:00:00 AM [facility] FreeStyle [place] Lite w/Device Kit 01/19/2021 12:00:00 AM [facility] FreeStyle Lancets 01/19/2021 12:00:00 AM [facility] FreeStyle Lite Test In Vitro Strip (glucose blood) 01/19/2021 12 :00:00 AM [facility] Metolazone 2.5 MG Oral Tablet 01/18/2021 12:00:00 AM [facility] Insulin Glargine 100 UNT/ML Injectable Solution 01/18/2021 12:00:00 AM [facility] 24 HR Nifedipine 60 MG Extended Release Oral Tablet 01/19/20 12:00:00 AM [facility] Sodium Chloride 0.111 MEQ/ML Nasal Solution 01/18/2021 12:00:00 AM [facility] Oxymetazoline hydrochloride 0.5 MG/ML Nasal [place] 01/18/2021 12: 00:00 AM [facility] atorvastatin 40 MG Oral Tablet 01/18/2021 12:00:00 AM [facility] torsemide 100 MG Oral Tablet 01/18/2021 12:00:00 AM [facility] Cyclobenzaprine hydrochloride 10 MG Oral Tablet 01/15/2021 06:57:42 PM [facility] Hydroxyzine Hydrochloride 10 MG Oral Tablet 01/15/2021 06:57:18 PM [facility] Hydralazine Hydrochloride 20 MG/ML Injectable Solution 01/14/2021 06:43:32 PM [facility] ospital perflutren lipid microspheres (AudioSnaps) injectable chun spension 9.78 mg 01/14/2021 05:50:[address] [facility] dextrose 50 % IV solution 25 mL 01/14/2021 05:09:51 PM [facility] Glucagon 1 MG Injection 01/14/2021 05:09:51 PM [facility] Glucose 0.417 MG/MG Oral Gel 01/14/2021 05:09:51 PM [facility] carvedilol 25 MG Oral Tablet 2020 12:00:00 AM [facility] ropinirole 1 MG Oral Tablet 12/10/2020 12:00:00 AM [facility] Amlodipine 10 MG Oral Tablet 11/13/2020 12:00:00 AM [facility] ammonium lactate 120 MG/ML Topical Cream 10/27/2020 12:00:00 AM [facility] Trelegy Ellipta 100-62.5-25 MCG/INH Aerosol Powder [place] ath Activated 10/15/2020 12:00:00 AM [facility] ospital torsemide 100 MG Oral Tablet 10/10/2020 12:00:00 AM [facility] cefdinir 300 MG Oral Capsule 09/13/2020 12:00:00 AM [facility] atorvastatin 40 MG Oral Tablet 04/13/2020 12:00:00 AM EDT [facility] clopidogrel 75 MG Oral Tablet 03/29/2020 12:00:00 AM EDT [facility] Aspirin 81 MG Delayed Release Oral Tablet 05/21/2019 12:00:00 AM ED T [facility] HUMULIN R U-500 KWIKPEN 500 UNIT/ML SOPN 05/07/2019 12:00:00 AM EDT [facility] Metolazone 2.5 MG Oral Tablet [facility] carvedilol 25 MG Oral Tablet [facility] Amlodipine 10 MG Oral Tablet [facility] Acetaminophen 325 MG / Oxycodone Hydrochloride 5 MG Oral Tablet [facility] Hydralazine Hydrochloride 25 MG Oral Tablet [facility] Regular Insulin, Human 500 UNT/ML Injectable Solution [facility]
[2021-06-29] MEDS ORDERED: hydrALAZINE 20MG/ML 1ML VIAL (J0360 PER 20MG) IV STA (22:06)
[2021-06-29 22:53] LABS: TROPONIN I < 0.02 NG/ML (< 0.10)
[2021-06-29] MEDS ORDERED: traMADol 50 MG TAB PO PRN (23:50)
[2021-06-29] MEDS ORDERED: CYCLOBENZAPRINE 10MG TABLET PO PRN (23:50)
[2021-06-29] MEDS ORDERED: hydrOXYzine 10 MG TAB PO PRN (23:50)
[2021-06-30] VITALS (7 sets, daily range): BP systolic 106–170; BP diastolic 58–69
[2021-06-30] MEDS ORDERED: POTASSIUM CHLORIDE 10MEQ SR TABLET PO ONE (01:40)
[2021-06-30] MEDS: ATORVASTATIN 20 MG TAB PO SCH ×2 (02:53→20:26)
[2021-06-30] MEDS: VITAMIN D 1,000 INTERNATIONAL UNITS TABLET PO SCH ×2 (02:53→20:26)
[2021-06-30] MEDS: SERTRALINE HCL 50 MG TAB PO SCH ×2 (02:54→20:26)
[2021-06-30] MEDS: RIVAROXABAN 15 MG TAB (XARELTO) PO SCH ×2 (02:54→20:26)
[2021-06-30] MEDS: CARVedilol 12.5 MG TAB PO SCH ×3 (02:55→20:27)
[2021-06-30] MEDS: LEVEMIR (INSULIN DETEMIR) 1 UNITS/0.01ML SC SCH ×2 (02:56→20:28)
[2021-06-30] MEDS: HumaLOG INSULIN (NovoLOG) PER UNIT SC SCH ×5 (02:56→22:41)
[2021-06-30] MEDS ORDERED: NITROGLYCERIN 0.3 MG SUBL TAB SL PRN (03:40)
[2021-06-30 06:25] LABS: HEMATOCRIT 25.2 % (36.0-47.0); HEMOGLOBIN 8.4 g/dl (12.0-15.5); MEAN CORPUSCULAR HEMOGLOBIN 29.3 pg (27.0-33.0); MEAN CORPUSCULAR HGB CONC 33.3 g/dl (32.0-36.5); MEAN CORPUSCULAR VOLUME 87.8 fl (80.0-96.0); PLATELET COUNT, AUTOMATED 163 10^3/uL (150-450); RED BLOOD COUNT 2.87 10^6/uL (4.00-5.40); WHITE BLOOD COUNT 9.2 10^3/uL (4.0-10.0)
[2021-06-30 06:40] LABS: CALCIUM LEVEL 8.9 MG/DL (8.8-10.2); CREATININE FOR GFR 2.38 MG/DL (0.55-1.30); GLOMERULAR FILTRATION RATE 21.6 (>45); POTASSIUM SERUM 3.6 MEQ/L (3.5-5.1)
[2021-06-30 06:44] LABS: CHOLESTEROL RISK RATIO 5.021 (<5)
[2021-06-30 06:48] LABS: HEMOGLOBIN A1c 10.1 %
[2021-06-30] MEDS: SYMBICORT 160/4.5MCG INHALER 6GM INH SCH ×2 (07:30→19:26)
--- NOTE | 2021-06-30 08:57 | IPNPDOC ---
Text Note Date of Service The patient was seen on 06/30/21. NOTE Subjective: Patient seen and examined at bedside. No acute overnight events reported. Patient voices no new medical complaints this morning. Objective: Vital Signs: reviewed General: NAD, lying comfortably in bed HEENT: NC/AT, EOMI, poor dentition Neck: supple, no masses Chest: lungs CTA B/L Heart: +S1S2, systolic murmur Abd: soft, NT, ND, +BS Ext: no edema Skin: no rashes MSK: full ROM at large joints Neuro: no gross focal deficits Psych: AAOx3 A/P: 70F with PMHx including CAD, IDDM/retinopathy/neuropathy, p afib/rivaroxaban, HFpEF, HTN, HLD, COPD/O2 dependent at night (2L), asthma, CKDIV, GERD, hypothyroidism, anxiet/depression, gait dysfunction, CHELO admitted for chest pain, hypertensive crisis, afib/RVR. #chest pain/CAD - ACS ruled out - trops negative x 2, no ecg changes, will check 3rd trop - no events on telemetry, symptoms resolved - continue clopidogrel, coreg, statin #afib/RVR - rate controlled - continue BB, coreg - a/c with Rivaroxaban - Cardizem 30mg Q12H started on admission #HTN Crisis - resolved - s/p IV hydralazine - as above, Coreg, Cardizem / low salt diet #CAD / DLP -stent x 1 in 2019, triple vessel CABG in 2019 & placement of 2 ALEX in 2020 - as above, c/w Plavix, Coreg & Atorvastatin #IDDM w retinopathy and neuropathy - continue insulin therapy, modified diet # CKD 4 (s/p L brachiocephalic AV fistula) #Chronic HFpEF - compensated #COPD / Asthma - Symbicort (Trilogy Ellipta is not on our formulary) #JEFFERY - nocturnal O2 (2L) #Iron Deficiency Anemia - ferrous gluconate #RLS - ropinirole #GERD - omeprazole # Anxiety / Depression - sertraline # obesity -complicates care # Debility / unsteady gait - PT eval #DVT prophylaxis - as above, receiving DOAC for afib Dispo: continue telemetry to ensure rate control, PT eval, PFS eval VS,Fishbone, I+O VS, Fishbone, I+O Laboratory Tests 06/29/21 16:56 06/30/21 05:29 06/30/21 05:30 Vital Signs Date Time Temp Pulse Resp B/P (MAP) Pulse Ox O2 Delivery O2 Flow Rate FiO2 06/30/21 04:00 97.2 66 18 135/64 (87) 93 Room Air 06/29/21 18:15 2.0 I&O- Last 24 Hours up to 6 AM 06/30/21 06:00 Intake Total 0 ml Output Total 450 ml Balance -450 ml ISIDRO MENDEZ MD Jun 30, 2021 08:57
[2021-06-30] MEDS: OMEPRAZOLE 20 MG CAP PO SCH (09:04)
[2021-06-30] MEDS: POTASSIUM CHLORIDE 10MEQ SR TABLET PO SCH (09:05)
[2021-06-30] MEDS: FERROUS GLUCONATE 324 MG TAB PO SCH ×2 (09:05→20:27)
[2021-06-30] MEDS: rOPINIRole 2MG TAB PO SCH ×2 (09:05→20:28)
[2021-06-30] MEDS: CLOPIDOGREL 75 MG TAB PO SCH (09:05)
[2021-06-30] MEDS: TORSEMIDE (DEMADEX) 50 MG PER 1/2 TAB PO SCH (09:05)
[2021-06-30 13:23] LABS: CK-MB VALUE MASS 2.5 NG/ML (<3.6); MB/CK RELATIVE INDEX 2.17 (< OR =4); TROPONIN I 0.32 NG/ML (< 0.10)
--- NOTE | 2021-06-30 18:35 | ECGEPIP ---
[facility] Test Date: 2021-06-30 Pat Name: MARCIN WALTER Department: Room: [place] [address] Gender: Female Gold Cutter: KIRILL HERNANDEZ : 1950 Requested By: JACKLYN LYNN Order Number: [id number] Reading MD: Adolfo Hurtado Measurements Intervals [place] Rate: 61 P: 19 CO: 202 QRS: 28 QRSD: 100 T: 136 QT: 456 QTc: 459 Interpretive Statements Normal sinus rhythm Left ventricular hypertrophy with repolarization abnormality ( Wu product ) Cannot rule out Septal infarct , age undetermined Last tracing on 06/29/21 at 16:25. Atrial fibrillation was noted Electronically Signed on 06-30-2021 18:35:06 EDT by Adolfo Hurtado
[2021-06-30] MEDS: LACTIC ACID 12% LOTION 225 GM BTL TOP SCH (20:29)
[2021-06-30] MEDS ORDERED: CALCITRIOL 0.25 MCG CAP (S0169) PO SCH (21:00)
[2021-07-01 06:00] VITALS: BP 160/58
[2021-07-01 07:06] LABS: HEMATOCRIT 26.4 % (36.0-47.0); HEMOGLOBIN 8.4 g/dl (12.0-15.5); MEAN CORPUSCULAR HEMOGLOBIN 29.1 pg (27.0-33.0); MEAN CORPUSCULAR HGB CONC 31.8 g/dl (32.0-36.5); MEAN CORPUSCULAR VOLUME 91.3 fl (80.0-96.0); PLATELET COUNT, AUTOMATED 148 10^3/uL (150-450); RED BLOOD COUNT 2.89 10^6/uL (4.00-5.40); WHITE BLOOD COUNT 8.4 10^3/uL (4.0-10.0)
[2021-07-01 07:14] LABS: CALCIUM LEVEL 8.5 MG/DL (8.8-10.2); CREATININE FOR GFR 2.63 MG/DL (0.55-1.30); GLOMERULAR FILTRATION RATE 19.2 (>45); POTASSIUM SERUM 4.2 MEQ/L (3.5-5.1)
[2021-07-01] MEDS: SYMBICORT 160/4.5MCG INHALER 6GM INH SCH ×2 (08:07→20:00)
[2021-07-01] MEDS: FERROUS GLUCONATE 324 MG TAB PO SCH ×2 (08:55→22:14)
[2021-07-01] MEDS: HumaLOG INSULIN (NovoLOG) PER UNIT SC SCH ×4 (08:55→22:23)
[2021-07-01] MEDS: POTASSIUM CHLORIDE 10MEQ SR TABLET PO SCH (08:55)
[2021-07-01] MEDS: rOPINIRole 2MG TAB PO SCH ×2 (08:55→22:16)
[2021-07-01] MEDS: CLOPIDOGREL 75 MG TAB PO SCH (08:55)
[2021-07-01] MEDS: OMEPRAZOLE 20 MG CAP PO SCH (08:56)
[2021-07-01] MEDS: TORSEMIDE (DEMADEX) 50 MG PER 1/2 TAB PO SCH (08:59)
[2021-07-01] MEDS: CARVedilol 12.5 MG TAB PO SCH ×2 (08:59→22:14)
--- NOTE | 2021-07-01 11:21 | IPNPDOC ---
Text Note Date of Service The patient was seen on 07/01/21. NOTE Subjective: Patient seen and examined at bedside. No acute overnight events reported. Patient voices no new medical complaints this morning. Objective: Vital Signs: reviewed General: NAD, lying comfortably in bed HEENT: NC/AT, EOMI, poor dentition Neck: supple, no masses Chest: lungs CTA B/L Heart: +S1S2, systolic murmur Abd: soft, NT, ND, +BS Ext: no edema Skin: no rashes MSK: full ROM at large joints Neuro: no gross focal deficits Psych: AAOx3 A/P: 70F with PMHx including CAD, IDDM/retinopathy/neuropathy, p afib/rivaroxaban, HFpEF, HTN, HLD, COPD/O2 dependent at night (2L), asthma, CKDIV, GERD, hypothyroidism, anxiet/depression, gait dysfunction, CHELO admitted for chest pain, hypertensive crisis, afib/RVR. #chest pain/CAD - ACS ruled out - trops negative, no ecg changes - no events on telemetry, symptoms resolved - continue clopidogrel, coreg, statin #afib/RVR - rate controlled - continue BB, coreg - a/c with Rivaroxaban - Cardizem 30mg Q12H started on admission #HTN Crisis - resolved - s/p IV hydralazine - as above, Coreg, Cardizem / low salt diet #CAD / DLP -stent x 1 in 2019, triple vessel CABG in 2019 & placement of 2 ALEX in 2020 - as above, c/w Plavix, Coreg & Atorvastatin #IDDM w retinopathy and neuropathy - continue insulin therapy, modified diet # CKD 4 (s/p L brachiocephalic AV fistula) #Chronic HFpEF - compensated #COPD / Asthma - Symbicort (Trilogy Ellipta is not on our formulary) #JEFFERY - nocturnal O2 (2L) #Iron Deficiency Anemia - ferrous gluconate #RLS - ropinirole #GERD - omeprazole # Anxiety / Depression - sertraline # obesity -complicates care # Debility / unsteady gait - PT eval #DVT prophylaxis - as above, receiving DOAC for afib Dispo: continue PT eval, PFS eval VS,Fishbone, I+O VS, Fishbone, I+O Laboratory Tests 07/01/21 06:31 Vital Signs Date Time Temp Pulse Resp B/P (MAP) Pulse Ox O2 Delivery O2 Flow Rate FiO2 07/01/21 08:58 65 160/58 07/01/21 06:00 98.0 18 99 Nasal [place] 06/29/21 18:15 2.0 I&O- Last 24 Hours up to 6 AM 07/01/21 06:00 Intake Total 900 ml Output Total 650 ml Balance 250 ml ISIDRO MENDEZ MD Jul 01, 2021 11:21
[2021-07-01 14:00] VITALS: BP 139/63
[2021-07-01 22:00] VITALS: BP 141/76
[2021-07-01] MEDS: SERTRALINE HCL 50 MG TAB PO SCH (22:15)
[2021-07-01] MEDS: ATORVASTATIN 20 MG TAB PO SCH (22:15)
[2021-07-01] MEDS: RIVAROXABAN 15 MG TAB (XARELTO) PO SCH (22:15)
[2021-07-01] MEDS: VITAMIN D 1,000 INTERNATIONAL UNITS TABLET PO SCH (22:15)
[2021-07-01] MEDS: LACTIC ACID 12% LOTION 225 GM BTL TOP SCH (22:16)
[2021-07-01] MEDS: LEVEMIR (INSULIN DETEMIR) 1 UNITS/0.01ML SC SCH (22:24)
[2021-07-02 06:00] VITALS: BP 142/58
[2021-07-02 08:03] VITALS: BP 147/50
[2021-07-02] MEDS: POTASSIUM CHLORIDE 10MEQ SR TABLET PO SCH (08:03)
[2021-07-02] MEDS: OMEPRAZOLE 20 MG CAP PO SCH (08:03)
[2021-07-02] MEDS: CARVedilol 12.5 MG TAB PO SCH (08:03)
[2021-07-02] MEDS: FERROUS GLUCONATE 324 MG TAB PO SCH (08:03)
[2021-07-02] MEDS: TORSEMIDE (DEMADEX) 50 MG PER 1/2 TAB PO SCH (08:03)
[2021-07-02] MEDS: CLOPIDOGREL 75 MG TAB PO SCH (08:03)
[2021-07-02] MEDS: HumaLOG INSULIN (NovoLOG) PER UNIT SC SCH ×2 (08:03→13:36)
[2021-07-02] MEDS: rOPINIRole 2MG TAB PO SCH (08:03)
[2021-07-02] MEDS: SYMBICORT 160/4.5MCG INHALER 6GM INH SCH (08:09)
[2021-07-02 08:40] LABS: BASO % 0.4 % (0.0-1.0); EOS # 0.2 10^3/uL (0.0-0.5); EOS % 2.8 % (0.0-3.0); HEMATOCRIT 27.1 % (36.0-47.0); LYMPH # 1.8 10^3/uL (1.5-5.0); LYMPH % 22.6 % (24.0-44.0); MEAN CORPUSCULAR HEMOGLOBIN 29.6 pg (27.0-33.0); MEAN CORPUSCULAR HGB CONC 33.2 g/dl (32.0-36.5); MEAN CORPUSCULAR VOLUME 89.1 fl (80.0-96.0); MONO # 0.6 10^3/uL (0.0-0.8); MONO % 7.1 % (2.0-8.0); NEUTROPHILS # 5.4 10^3/uL (1.5-8.5); NEUTROPHILS % 66.6 % (36.0-66.0); PLATELET COUNT, AUTOMATED 157 10^3/uL (150-450); RED BLOOD COUNT 3.04 10^6/uL (4.00-5.40); WHITE BLOOD COUNT 8.1 10^3/uL (4.0-10.0)
[2021-07-02 09:07] LABS: CALCIUM LEVEL 8.8 MG/DL (8.8-10.2); CREATININE FOR GFR 2.19 MG/DL (0.55-1.30); GLOMERULAR FILTRATION RATE 23.8 (>45); MAGNESIUM LEVEL 2.2 MG/DL (1.8-2.4); POTASSIUM SERUM 3.9 MEQ/L (3.5-5.1)
[2021-07-02] MEDS ORDERED: DILT30TA PO (09:51)
[2021-07-02 14:00] VITALS: BP 176/56
--- NOTE | 2021-07-02 15:06 | DS.PDOC ---
Discharge Summary General Date of Admission Jun 29, 2021 at 21:11 Date of Discharge 07/02/21 Discharge Summary PROCEDURES PERFORMED DURING STAY: [None]. DISCHARGE DIAGNOSES: #chest pain/CAD - ACS ruled out - trops negative, no ecg changes #afib/RVR #HTN Crisis #CAD / DLP #IDDM w retinopathy and neuropathy # CKD 4 (s/p L brachiocephalic AV fistula) #Chronic HFpEF #COPD / Asthma #JEFFERY #Iron Deficiency Anemia #RLS #GERD # Anxiety / Depression # obesity # Debility / unsteady gait COMPLICATIONS/CHIEF COMPLAINT: Atrial Fibrillation With Rvr; Hypertensive Urgency. HISTORY OF PRESENT ILLNESS: 70 yr old F who presented w c/o difficulties breathing and chest pain / indigestion that begun last night. The shortness of breath is relapsing and remitting, worse with walking and didnt improve with increased use of her nebs. She denies feeling like she is choking when she lies down flat on her back. The chest pain / indigestion was not present at the time of my assessment but was 8/10 in severity at its worst and similar to the squeezing chest pain that she had when she was diagnosed with a heart attack. She has been dizzy and has almost fallen but denies losing consciousness and denies having n/v/d. She added that has been under a lot of stress and finds it difficult to organize her medications in her pill boxes. HOSPITAL COURSE: 70F with PMHx including CAD, IDDM/retinopathy/neuropathy, p afib/rivaroxaban, HFpEF, HTN, HLD, COPD/O2 dependent at night (2L), asthma, CKDIV, GERD, hypothy roidism, anxiet/depression, gait dysfunction, CHELO admitted for chest pain, hypertensive crisis, afib/RVR. #chest pain/CAD - ACS ruled out - trops negative, no ecg changes - no events on telemetry, symptoms resolved - continue clopidogrel, coreg, statin #afib/RVR - rate controlled - continue BB, coreg - a/c with Rivaroxaban - Cardizem 30mg Q12H started on admission #HTN Crisis - resolved - s/p IV hydralazine - as above, Coreg, Cardizem / low salt diet #CAD / DLP -stent x 1 in 2018, triple vessel CABG in 2018 & placement of 2 ALEX in 2020 - as above, c/w Plavix, Coreg & Atorvastatin #IDDM w retinopathy and neuropathy - continue insulin therapy, modified diet # CKD 4 (s/p L brachiocephalic AV fistula) #Chronic HFpEF - compensated #COPD / Asthma - Symbicort (Trilogy Ellipta is not on our formulary) #JEFFERY - nocturnal O2 (2L) #Iron Deficiency Anemia - ferrous gluconate #RLS - ropinirole #GERD - omeprazole # Anxiety / Depression - sertraline # obesity -complicates care # Debility / unsteady gait - cleared by PT DISCHARGE MEDICATIONS: Please see below. ALLERGIES: Please see below. PHYSICAL EXAMINATION ON DISCHARGE: Vital Signs: reviewed General: NAD, lying comfortably in bed HEENT: NC/AT, EOMI, poor dentition Neck: supple, no masses Chest: lungs CTA B/L Heart: +S1S2, systolic murmur Abd: soft, NT, ND, +BS Ext: no edema Skin: no rashes MSK: full ROM at large joints Neuro: no gross focal deficits Psych: AAOx3 LABORATORY DATA: Please see below. ACTIVITY: [As tolerated]. DISCHARGE INSTRUCTIONS: 1. Follow up with PCP in 3-5 days DISCHARGE CONDITION: [Stable]. TIME SPENT ON DISCHARGE: 35 minutes. Vital Signs/I&Os Vital Signs Date Time Temp Pulse Resp B/P (MAP) Pulse Ox O2 Delivery O2 Flow Rate FiO2 07/02/21 08:03 66 147/50 07/02/21 06:00 99.5 16 100 Room Air 06/29/21 18:15 2.0 I&O- Last 24 Hours up to 6 AM 07/02/21 06:00 Intake Total 2090 ml Output Total 1750 ml Balance 340 ml Laboratory Data Labs 24H Laboratory Tests 2 07/01/21 17:17: Bedside Glucose (Misc Panel) 383H 07/01/21 21:51: Bedside Glucose (Misc Panel) 376H 07/02/21 06:09: Bedside Glucose (Misc Panel) 164H 07/02/21 08:17: Immature Granulocyte % (Auto) 0.5, Neutrophils (%) (Auto) 66.6H, Lymphocytes (%) (Auto) 22.6L, Monocytes (%) (Auto) 7.1, Eosinophils (%) (Auto) 2.8, Basophils (%) (Auto) 0.4, Neutrophils # (Auto) 5.4, Lymphocytes # (Auto) 1.8, Monocytes # (Auto) 0.6, Eosinophils # (Auto) 0.2, Basophils # (Auto) 0.0, Nucleated Red Blood Cells % (auto) 0.0, Anion Gap 5L, Glomerular Filtration Rate 23.8L, Calcium Level 8.8, Magnesium Level 2.2 07/02/21 12:10: Bedside Glucose (Misc Panel) 224H CBC/BMP Laboratory Tests 07/02/21 08:17 FSBS Laboratory Tests Test 07/01/21 17:17 07/01/21 21:51 07/02/21 06:09 07/02/21 12:10 Range/Units Bedside Glucose (Misc Panel) 383 376 164 224 80-115 MG/DL Discharge Medications Scheduled Ammonium Lactate (Ammonium Lactate) 12% Cream..g., 1 DOSE TOP QHS, (Reported) APPLY TO FEET AFTER SHOWER Atorvastatin Calcium (Atorvastatin Calcium) 40 Mg Tablet, 40 MG PO QHS, (Reported) Calcitriol (Calcitriol) 0.25 Mcg Capsule, 0.25 MCG PO QHS, (Reported) EVERY OTHER NIGHT Carvedilol (Carvedilol) 12.5 Mg Tablet, 12.5 MG PO BID, (Reported) Cholecalciferol (Vitamin D3) (Vitamin D3) 125 Mcg Capsule, 5,000 UNITS PO QHS, (Reported) Clopidogrel Bisulfate (Clopidogrel) 75 Mg Tablet, 75 MG PO DAILY, (Reported) Diltiazem HCl (Diltiazem HCl) 30 Mg Tablet, 30 MG PO Q12H Ferrous Gluconate (Ferrous Gluconate) 324 Mg Tablet, 324 MG PO BID, (Reported) Fluticasone/Umeclidin/Vilanter (Trelegy Ellipta 100-62.5-25) 1 Each Blst.w.dev, 1 PUFF PO DAILY, (Reported) Insulin Glargine (Lantus) 100 Unit/1 Ml Vial, 44 UNIT INJ QHS, (Reported) Insulin Human Lispro (Humalog) 100 Unit/1 Ml Vial, 1 DOSE SC AC, (Reported) PER SLIDING SCALE Multivitamins (Thera M Plus Tablet) 1 Each Tablet, 1 TAB PO QHS, (Reported) Omeprazole (Omeprazole) 40 Mg Cap, 40 MG PO DAILY, (Reported) Potassium Chloride (Potassium Chloride) 10 Meq Tab.er.prt, 10 MEQ PO DAILY, (Reported) Rivaroxaban (Xarelto) 15 Mg Tablet, 15 MG PO QHS, (Reported) Ropinirole HCl (Ropinirole HCl) 1 Mg Tab, 2 MG PO BID, (Reported) Sertraline HCl (Sertraline HCl) 50 Mg Tab, 100 MG PO QHS, (Reported) Torsemide (Torsemide) 100 Mg Tablet, 50 MG PO DAILY, (Reported) Scheduled PRN Acetaminophen (Tylenol Extra Strength) 500 Mg Tablet, 1,000 MG PO Q6H PRN for PAIN, (Reported) Cyclobenzaprine HCl (Cyclobenzaprine HCl) 10 Mg Tablet, 10 MG PO TID PRN for MUSCLE SPASMS, (Reported) Hydroxyzine HCl (Hydroxyzine HCl) 10 Mg Tablet, 10 MG PO TID PRN for ANXIETY, (Reported) Tramadol HCl (Tramadol HCl) 50 Mg Tablet, 50 MG PO QID PRN for PAIN, (Reported) Allergies Coded Allergies: Penicillins (Verified Allergy, Mild, RASH/ITCHING, 06/22/20) ISIDRO MENDEZ MD Jul 02, 2021 15:06
== END 2021-07-02 17:43 | disposition home health service (06) | DRG 309 ==
LOC: M ED 16:13 → M ED INP 21:11 → M PCU 06-30 03:26 → M MSPAV 06-30 23:13
PROVIDERS: ADMIT Internal Medicine; ATTEND Internal Medicine
DX: I48.0 Paroxysmal atrial fibrillation (principal); I16.9 Hypertensive crisis, unspecified; N18.4 Chronic kidney disease, stage 4 (severe); I50.32 Chronic diastolic (congestive) heart failure; I13.0 Hypertensive heart and chronic kidney disease with heart failure and stage 1 through stage 4 chronic kidney disease, or unspecified chronic kidney disease; R07.89 Other chest pain; I25.10 Atherosclerotic heart disease of native coronary artery without angina pectoris; E78.5 Hyperlipidemia, unspecified; E11.40 Type 2 diabetes mellitus with diabetic neuropathy, unspecified; E11.319 Type 2 diabetes mellitus with unspecified diabetic retinopathy without macular edema; E11.22 Type 2 diabetes mellitus with diabetic chronic kidney disease; J44.9 Chronic obstructive pulmonary disease, unspecified; J45.909 Unspecified asthma, uncomplicated; G47.33 Obstructive sleep apnea (adult) (pediatric); E03.9 Hypothyroidism, unspecified; G25.81 Restless legs syndrome; D50.9 Iron deficiency anemia, unspecified; K21.9 Gastro-esophageal reflux disease without esophagitis; F32.A Depression, unspecified; F41.9 Anxiety disorder, unspecified; E66.9 Obesity, unspecified; R26.81 Unsteadiness on feet; R53.81 Other malaise; Z79.02 Long term (current) use of antithrombotics/antiplatelets; Z79.01 Long term (current) use of anticoagulants; Z88.0 Allergy status to penicillin; Z89.421 Acquired absence of other right toe(s); Z95.5 Presence of coronary angioplasty implant and graft

== ENCOUNTER 2021-07-06 10:20 | Emergency (ER) | payer MEDICARE ==
[~2021-07-06 10:20] MED LIST changes: +CARV12.5 PO; +DILT30TA PO
[2021-07-06] MEDS ORDERED: TORSEMIDE (DEMADEX) 50 MG PER 1/2 TAB PO ONE (11:20)
[2021-07-06] MEDS ORDERED: CARVedilol 6.25 MG TAB PO ONE (11:20)
[2021-07-06 12:03] VITALS: BP 221/94
[2021-07-06 12:12] LABS: BASO % 0.5 % (0.0-1.0); EOS # 0.2 10^3/uL (0.0-0.5); EOS % 1.9 % (0.0-3.0); HEMATOCRIT 26.5 % (36.0-47.0); HEMOGLOBIN 8.4 g/dl (12.0-15.5); LYMPH # 1.5 10^3/uL (1.5-5.0); LYMPH % 17.6 % (24.0-44.0); MEAN CORPUSCULAR HEMOGLOBIN 29.1 pg (27.0-33.0); MEAN CORPUSCULAR HGB CONC 31.7 g/dl (32.0-36.5); MEAN CORPUSCULAR VOLUME 91.7 fl (80.0-96.0); MONO # 0.6 10^3/uL (0.0-0.8); MONO % 6.7 % (2.0-8.0); NEUTROPHILS % 73.1 % (36.0-66.0); RED BLOOD COUNT 2.89 10^6/uL (4.00-5.40); WHITE BLOOD COUNT 8.2 10^3/uL (4.0-10.0)
[2021-07-06 12:43] LABS: CK-MB VALUE MASS 4.5 NG/ML (<3.6); CREATININE FOR GFR 1.72 MG/DL (0.55-1.30); GLOMERULAR FILTRATION RATE 31.4 (>45); MB/CK RELATIVE INDEX 3.44 (< OR =4); POTASSIUM SERUM 4.4 MEQ/L (3.5-5.1); TROPONIN I 0.02 NG/ML (< 0.10)
[2021-07-06 12:51] LABS: PLATELET COUNT, AUTOMATED 136 10^3/uL (150-450)
[2021-07-06 13:19] VITALS: BP 182/90
--- NOTE | 2021-07-06 20:51 | ECGEPIP ---
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
== END 2021-07-06 13:58 | disposition home or self-care (01) ==
LOC: M ED 10:20 → EDBD 10:20 → M ED 13:58
DX: I13.10 Hypertensive heart and chronic kidney disease without heart failure, with stage 1 through stage 4 chronic kidney disease, or unspecified chronic kidney disease (principal); E11.9 Type 2 diabetes mellitus without complications; J45.909 Unspecified asthma, uncomplicated; J44.9 Chronic obstructive pulmonary disease, unspecified; Z99.81 Dependence on supplemental oxygen; Z88.0 Allergy status to penicillin; Z79.899 Other long term (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 therapy

== ENCOUNTER 2021-07-14 13:01 | Emergency (ER) | payer MEDICARE ==
[~2021-07-14] VITALS: Ht 157.5 cm; Wt 85.0 kg
--- NOTE | 2021-07-14 13:43 | REP ---
INDICATION: CHEST PAIN. COMPARISON: June 29, 2021. TECHNIQUE: Portable upright AP chest radiograph. FINDINGS: The lungs are well inflated and clear. The pleural angles are sharp. Median sternotomy wires are noted. The heart is enlarged unchanged. Pulmonary vasculature is cephalized. There is no evidence of pulmonary edema. No acute bony abnormality. IMPRESSION: Cardiomegaly. Prior sternotomy. Cephalization of the pulmonary vasculature. No evidence of pulmonary edema or pleural effusion. <Electronically signed by Cisco Amador > 07/14/21 1525
--- OUTSIDE RECORDS SUMMARY | 2021-07-14 14:16 | CCD ---
Continuity of Care Document (CCD) Created on: 07/09/2021 Oxana Clancy External Reference #: [id number] Sex: Female Author Author Oxana ESCOTO P.CBoyd Organization Unknown Address [address] [place] [address] Phone [phone] Care Team Providers Care Menu Planner Name Role Phone Lobo, Andre Erazo AUTM [phone] GEORGE MINOR M.D. P.C. AUTM [phone] Social History Type Date Description Comments Sex Unknown Allergies and adverse reactions Active Allergies Criticality Reaction | Severity Comments Date Penicillin V Unable to assess criticality 06/02/2020 Medications Active Medications SIG Qnty Indications Ordering Provide r Date Xarelto 2.5mg Tablets 1 tab every day at bedtime 90tabs George Minor M[facility] 05/11/20 21 Carvedilol 12.5mg Tablets Take One Tablet By Mouth Twice Daily Geroge Minor M.D[facility] Hydroxyzine HCL 10mg Tablets Take One Tablet By Mouth as Needed Three Times Daily For Anxiety George Minor M.D[facility] 02/26/2021 Atorvastatin Calcium 40mg Tablets 1 by mouth every day 90tabs George Minor M.D[facility] 02/27/20 21 Calcitriol 0.25mcg Capsules George Minor M.D[facility] 12/04/2020 Tramadol HCL 50mg Tablets George Minor M.D[facility] 12/04/2020 Cyclobenzaprine HCL 10mg Tablets George Minor M.D[facility] 12/04/2020 Trelegy Ellipta 100- 62.5-25mcg/Inh Aerosol inhale one puff by mouth every day 60units George Minor M.D[facility] 10/05/2020 Torsemide 100mg Tablets 1/2 T ab Daily Kiya Velasquez ORGAN GRINDER Potassium Chloride ER 10Meq Tablet s ER Take One Tablet By Mouth Daily Andre Diamond Ropinirole HCL 1mg Tablets Take 2 Tablet By Mouth Twice Daily as Directed In The Am And AT 730 PM Unknown Vitamin D (Ergocalciferol) 1.25mg (78171 Ut) Capsules Take 1 Capsule By Mouth Once A Week For 6 Weeks Unknown BD Pen Needle/Hansa/Ultra -Fine/32G X 4mm 32G X 4 mm Misc Use One Up To 6 Times Daily With Insulin Pens as Directed Unknown BD Pen Needle/Hansa/Ultra -Fine/32G X 4mm 32G X 4 mm Misc Use as Directed To Test Three Times Daily Unknown Tab-A-Kristine Tablets Take One Tablet By Mouth @8Am Unknown Nitroglycerin 0.4mg/HR Patches 24H R Apply 1 Patch Topically Once Daily Remove AT Night For 10 To 12 Hours Unknown Diltiazem HCL 30mg Tablets 1 by mouth twice a day 180tabs George Minor M.D[facility] 00 Freestyle Lite Test Strips Use To Check Before Meals And Sleep (Four Times Daily ) Unkno wn Freestyle Lite Test Strips Unknown Omeprazole 40mg Capsules DR Take 1 Capsule By Mouth Once Daily In The Morning as Directed U nknown Fluticasone Propionate 50mcg/Act Suspension Use 1 To 2 [place](S) In Each Nostril Once Daily as Directed [...] R U-500 Kwikpen 500Unit/ML Solution Pen-Inject Unknown History Medications Xarelto 15mg Tablets 1 tab every day at bedtime 90tabs George Minor M[facility] 05/11/20 - 05/11/2021 Xarelto 2.5mg Tablets 1 tab every day at bedtime 90tabs George Minor M.[facility] 05/10/20 - 05/11/2021 Vital Signs Date Vital Result Comment 07/09/2021 1:36pm Height 61 inches 5'1" Weight 190.00 lb BMI (Body Mass Index) 35.9 kg/m2 Body Temperature 97.7 F BP Systolic 183 mmHg BP Diastolic 66 mmHg Heart Rate 73 /min O2 % BldC Oximetry 97 % 05/10/2021 1:58pm Height 61 inches 5'1" Weight 189.00 lb BMI (Body Mass Index) 35.7 kg/m2 Body Temperature 97.3 F BP Systolic 132 mmHg BP Diastolic 73 mmHg Heart Rate 80 /min O2 % BldC Oximetry 97 % Procedures Date Code Description Status 05/10/2021 04296 Office/Outpatient Established Mo d MDM 30-39 Min Completed 05/10/2021 60005 EKG Completed 02/26/2021 61188 Office/Outpatient Established Mo d MDM 30-39 Min Completed 02/26/2021 99281 EKG Completed 02/05/2021 14094 Office/Outpatient Established Mo d MDM 30-39 Min Completed Encounters Type Date Location Provider Dx Diagnosis Office Visit 05/10/2021 1:30p [facility] George Minor M.D.,P. C. I11.9 Hypertensive heart disease without heart failure I48.0 Paroxysmal atrial fibrillati on Z95.5 Presence of coronary angiopl asty implant and graft I49.49 Other premature depolarizati on Office Visit 02/26/2021 4:00p [facility] Kye Minor M.D.,P. C. R07.9 Chest pain, unspecified J43.9 Emphysema, unspecified E78.5 Hyperlipidemia, unspecified I49.49 Other premature depolarizati on Office Visit 02/05/2021 1:45p [facility] George Minor M.D.,P. C. I50.20 Unspecified systolic (congestive) heart failure E10.9 Type 1 diabetes mellitus wit hout complications I11.9 Hypertensive heart disease w [facility] heart failure I35.0 Nonrheumatic aortic (valve) stenosis Assessments Date Code Description Provider 05/10/2021 I11.9 Hypertensive heart disease witho de heart failure George Minor M.D[facility] 05/10/2021 I48.0 Paroxysmal atrial fibrillation Valentina Minor M.D.,P.C. 05/10/2021 Z95.5 Presence of coronary angioplasty implant and graft George Minor M.D[facility]. 05/10/2021 I49.49 Other premature depolarization Valentina Minor M.D[facility]. 02/26/2021 R07.9 Chest pain, myaified George moore M.D.,P.C. 02/26/2021 J43.9 Emphysema, unspecified George ramierz M.D.,P.C. 02/26/2021 E78.5 Hyperlipidemia, unspecified Jose Minor M.D[facility]. 02/26/2021 I49.49 Other premature depolarization Valentina Minor M.D[facility]. 02/05/2021 I50.20 Unspecified systolic (congestive ) heart failure George Minor M.D[facility]. 02/05/2021 E10.9 Type 1 diabetes mellitus without complications George Minor M.D[facility]. 02/05/2021 I11.9 Hypertensive heart disease witho de heart failure George Minor M.D[facility] 02/05/2021 I35.0 Nonrheumatic aortic (valve) sten osshana Minor M.D.,P.C. Plan of Treatment Future Appointment(s):* 08/08/2021 9:45 am - George Minor M.D[facility]P.C[facility] at [facility]
--- OUTSIDE RECORDS SUMMARY | 2021-07-14 14:16 | CCD | Continuity of Care Document ---
Author Author Oxana ESCOTO P.CBoyd Organization Unknown Address [address] [place] [address] Phone [phone] Care Team Providers Care Air Bag Builder Name Role Phone Lobo, Andre Erazo AUTM [phone] GEORGE MINOR M.D. P.C. AUTM [phone] Social History Type Date Description Comments Sex [...] Tablet By Mouth Twice Daily George Minor M.D[facility] Hydroxyzine HCL 10mg Tablets Take [...] Tablets 1/2 T ab Daily Kiya Velasquez DRIER HELPER Potassium Chloride ER 10Meq Tablet s ER Take One Tablet By Mouth Daily Andre Diamond Ropinirole HCL 1mg Tablets Take 2 Tablet By Mouth Twice Daily as Directed In The Am And AT 730 PM Unknown Vitamin D (Ergocalciferol) 1.25mg (16811 Ut) Capsules Take 1 Capsule By Mouth [...] Propionate 50mcg/Act Suspension Use 1 To 2 [place](S) In Each Nostril Once Daily as Directed [...] at bedtime 90tabs George Minor M.D[facility] 05/10/20 21 - 05/11/2021 Vital Signs Date Vital Result [...] 97 % Procedures Date Code Description Status 07/09/2021 35214 Office/Outpatient Established Mo d MDM 30-39 Min Completed 07/09/2021 60649 EKG Completed 05/10/2021 22467 Office/Outpatient Established Mo d MDM 30-39 Min Completed 05/10/2021 92629 EKG Completed 02/26/2021 25726 Office/Outpatient Established Mo d MDM 30-39 Min Completed 02/26/2021 31769 EKG Completed 02/05/2021 09524 Office/Outpatient Established Mo d MDM 30-39 Min Completed Encounters Type Date Location Provider Dx Diagnosis Office Visit 07/09/2021 1:30p [facility] George Minor M.D.,P. C. I20.9 Angina pectoris, unspecified I48.0 Paroxysmal atrial fibrillati on I11.9 Hypertensive heart disease w [place] heart failure I42.9 Cardiomyopathy, unspecified I49.49 Other premature depolarizati on Office Visit 05/10/2021 1:30p [facility] Kye Minor M.D.,P. C. I11.9 Hypertensive heart disease without heart failure I48.0 Paroxysmal atrial fibrillati on Z95.5 Presence of coronary angiopl asty implant and graft I49.49 Other premature depolarizati on Office Visit 02/26/2021 4:00p [facility] George Minor M.D.,P. C. R07.9 Chest pain, unspecified J43.9 Emphysema, unspecified E78.5 Hyperlipidemia, unspecified I49.49 Other premature depolarizati on Office Visit 02/05/2021 1:45p [facility] George Minor M.D.,P. C. I50.20 Unspecified systolic (congestive) heart failure E10.9 Type 1 diabetes mellitus wit hout complications I11.9 Hypertensive heart disease w [place] heart failure I35.0 Nonrheumatic aortic (valve) stenosis Assessments Date Code Description Provider 07/09/2021 I20.9 Angina pectoris, unspecified Yohan Minor M.D.,P.C. 07/09/2021 I48.0 Paroxysmal atrial fibrillation Valentina Minor M.D.,P.C. 07/09/2021 I11.9 Hypertensive heart disease witho in heart failure George Minor M.D[facility]. 07/09/2021 I42.9 Cardiomyopathy, unspecified Jose Minor M.D[facility].C. 07/09/2021 I49.49 Other premature depolarization Valentina Minor M.D[facility].C. 05/10/2021 I11.9 Hypertensive heart disease witho in heart failure George Minor M.D.,P.C. 05/10/2021 I48.0 Paroxysmal atrial fibrillation Valentina Minor M.D.,P.C. 05/10/2021 Z95.5 Presence of coronary angioplasty implant and graft George Minor M.D.,P.C. 05/10/2021 I49.49 Other premature depolarization Valentina Minor M.D.,P.C. 02/26/2021 R07.9 Chest pain, unspecified George moore M.D.,P.C. 02/26/2021 J43.9 Emphysema, unspecified George ramirez M.D.,P.C. 02/26/2021 E78.5 Hyperlipidemia, unspecified Jose Minor M.D[facility]P.C. 02/26/2021 I49.49 Other premature depolarization M cristino Minor M.D.,P.C. 02/05/2021 I50.20 Unspecified systolic (congestive ) heart failure George Minor M.D.,P.C. 02/05/2021 E10.9 Type 1 diabetes mellitus without complications George Minor M.D.,P.C. 02/05/2021 I11.9 Hypertensive heart disease witho ut heart failure George Minor M.D[facility].C. 02/05/2021 I35.0 Nonrheumatic aortic (valve) sten osis George Minor M.D[facility]. Plan of Treatment Future Appointment(s):* 08/08/2021 9:45 am - George Minor [facility] at [facility]
--- OUTSIDE RECORDS SUMMARY | 2021-07-14 14:16 | CCD | Continuity of Care Document ---
Author Author Oxana WILL DPM Organization Unknown Address [address] [place] [address], [address] [place] [address] Phone [phone] Care Team Providers Care Kitchen Steward Name Role Phone Andre Diamond M.D. AUTM [phone] Vito Lucero M.D. AUTM [phone] Problems Active Problems Provider Date Type 2 diabetes mellitus with diabetic polyneuropathy Ramiro Will DPM Onset: 08/16/2020 Onychomycosis Ramiro Will DPM Onset: 11/01/2020 Callosity Ramiro Will DPM Onset: 11/01/2020 Type 2 diabetes mellitus with ulcer Ramiro Will DPM Ons et: 07/01/2021 Ulcer of foot Ramiro Will DPM Onset: 07/01/2021 Social History Type Date Description Comments Sex [...] For Anxiety Unknown Hydroxyzine HCL 10mg Tablets Andre Diamond M.D. Xarelto 20mg Tablets Take 1 Tablet By Mouth Once Daily Unknown Xarelto 20mg Tablets Andre Diamond M.D. Cephalexin 500mg Capsules Unknown Cephalexin 500mg Capsules [...] Tablet By Mouth Every 48 Hours Unknown Levofloxacin 750mg Tablets Kayla Adiar MD Fluticasone Propionate 50mcg/Act Suspension Reason Andre Erazo Hydralazine HCL 25mg Tablets Tristen Camacho MD [...] as Directed Unknown Bisoprolol Fumarate 5mg Tablets Reason Andre Erazo. Anoro Ellipta 62.5-25mcg/Inh Aerosol Reason Valentina.DBoyd,Andre Mendez. Anoro Ellipta 62.5-25mcg/Inh Aeros ol Inhale 1 puff By Mouth Once Daily as Directed Un known Vitamin D (Ergocalciferol) 1.25mg (04244 Ut) Capsules Take 1 Capsule By Mouth Once A Week For 6 Weeks Unknown Hydralazine HCL 25mg Tablets Take 1 Tablet By Mouth Twice Daily Unknown Fluticasone Propionate 50mcg/Act Suspension Use 1 To 2 [place](S) In Each Nostril Once Daily as Directed Unknown Atorvastatin Calcium 80mg Tablets Unknown Atorvastatin Calcium 80mg Tablets Take 1 Tablet By Mouth Once Daily Unknown Carvedilol 12.5mg Tablets Take 1 Tablet By Mouth Twice Daily Unknown Carvedilol 12.5mg Tablets Unknown Atorvastatin Calcium 40mg Tablets Reason Andre Erazo L. Atorvastatin Calcium 40mg Tablets Take 1 Tablet By Mouth Once Daily AT Bedtime as Directed Unknown Freestyle Lite Test Strips Use To Check Before Meals And Sleep (Four Times Daily ) Unkno wn Potassium Chloride ER 10Meq Tablet s ER Take 1 Tablet By Mouth Twice Daily as Directed U nknown Potassium Chloride ER 10Meq Tablets ER Reason Castro,Andre L. Trelegy Ellipta 100- 62.5-25mcg/Inh Aerosol Inhale 1 puff Once Daily. Discontinue Anora Unknown Ropinirole HCL 1mg Tablets Take 2 Tablets By Mouth In The Morning And 2 In The Evening as Directed Unknown Ropinirole HCL 1mg Tablets Reason Castro,Andre L. Omeprazole 40mg Capsules DR Take 1 Capsule By Mouth Once Daily In The Morning as Directed U nknown Omeprazole 40mg Capsules Andre Pool M.D. Carvedilol 25mg Tablets Take 1 Tablet By Mouth Twice Daily as Directed Unknown Carvedilol 25mg Tablets Adnre Diamond M.D. Xarelto 15mg Tablets George Minor [...] 4 mm Misc Unknown Spironolactone 25mg Tablets Papo Erazo, Angelika Furosemide 20mg Tablets Take 2 Tablets By [...] Twice Daily Unknown Amlodipine Besylate 10mg Tablets Andre Diamond M.D. Amlodipine Besylate 10mg Tablets Take 1 Tablet By Mouth Once Daily Unknown Levofloxacin 250mg Tablets Papo Eraoz, Angelika Cefdinir 300mg Capsules Papo Erazo, Angelika Freestyle Lite Test Strips Unknown BD [...] Information Available Procedures Date Code Description Status 06/22/2021 26249 Debridement Of Wound 20 SQ CM Co mpleted 06/22/2021 16549 Debridement 6-10 Nails Electric Completed 06/22/2021 37634 Paring/Cut Benign Lesion 2 To 4 Completed 03/13/2021 55212 Debridement 6-10 Nails Electric Completed 03/13/2021 62927 Paring/Cutting Benign Single Les n Completed 01/02/2021 00302 Debridement 6-10 Nails Electric Completed 01/02/2021 53654 Paring/Cut Benign Lesion 2 To 4 Completed Medical Devices Description No Information Available Encounters Description No Information Available Assessments Date Code Description Provider 06/22/2021 E11.621 Type 2 diabetes mellitus with fo ot ulcer Ramiro Will, DPM 06/22/2021 L97.519 Non-pressure chronic ulcer of other part of right foot with unspecified severity Ramiro Will, DPM 06/22/2021 B35.1 Tinea unguium Ramiro Will, DPM 06/22/2021 E11.42 Type 2 diabetes mellitus with di abetic polyneuropathy Ramiro Will, DPM 06/22/2021 L84 Corns and callosities Ramiro Will, DPM 03/13/2021 B35.1 Tinea unguium Ramiro Will, DPM 03/13/2021 E11.42 Type 2 diabetes mellitus with di abetic polyneuropathy Ramiro Will, DPM 03/13/2021 L84 Corns and callosities Ramiro Will, DPM 01/02/2021 B35.1 Tinea unguium Ramiro Will, DPM 01/02/2021 E11.42 Type 2 diabetes mellitus with di abetic polyneuropathy Ramiro Will, DPM 01/02/2021 L84 Corns and callosities Ramiro Will DPM Plan of Treatment Future Appointment(s):* 07/05/2021 1:45 pm - Ramiro Will DPM at [facility] Functional Status Description No Information Available Mental Status Description No Information Available Referrals Description No Information Available
--- OUTSIDE RECORDS SUMMARY | 2021-07-14 14:19 | CCD ---
Author Author [facility] Organization [facility] Address Unknown Phone Unavailable Care Team Providers Care Supervisor Intelligence Analyst Name Role Phone CAYLA SCHNEIDER Unavailable Unavailable [...] MAGALI, J ELISABETH DPM PC Unavailable Unavailable MAAGLI, J ELISABETH DPM [facility] Unavailable Unavailable MAGALI, [...] Unavailable Asif, L Arlene RPA Unavailable Unavailable Saif, L Arlene RPA Unavailable [...] Unavailable Unavailable Andi You Dilip PA Unavailable [phone] Andi You Dilip PA Unavailable [phone] YouAndi Dilip PA Unavailable [phone] YouAndi Dilip PA Unavailable [phone] YouAndi Dilip PA Unavailable [phone] You J Dilip PA Unavailable [phone] You J Dilip PA Unavailable [phone] You, Andi Dilip PA Unavailable [phone] YouAndi Dilip PA Unavailable [phone] YouAndi Dilip PA Unavailable [phone] YouAndi Dilip PA Unavailable [phone] YouAndi Dilip PA Unavailable [phone] YouAndi Dilip PA Unavailable [phone] Andi LIN MD Unavailable Unavailable Andi LIN MD Unavailable Unavailable Andi LIN MD Unavailable Unavailable Andi LIN MD Unavailable Unavailable Andi LIN MD Unavailable Unavailable Andi LIN MD Unavailable Unavailable Andi LIN MD Unavailable Unavailable SCHNEIDER CAYLA Unavailable Unavailable Van-Khally, Jean Osorio MD Unavailable Unavailable El-Khally, Jean [...] Ting BECKWITH MD Unavailable Unavailable Ting BECKWITH ROB MD Unavailable Unavailable TANG, C ROB MD Unavailable Unavailable TANG C ROB MD Unavailable Unavailable TANG, Ting RIVAS MD Unavailable Unavailable TANG, C ROB JOE Unavailable Unavailable TANG, C ROB JOE Unavailable Unavailable TANG C ROB JOE Unavailable Unavailable TANG, C ROB MD Unavailable Unavailable TANG, C ROB MD Unavailable Unavailable TANG, C ROB MD Unavailable Unavailable TANG, C ROB MD Unavailable Unavailable TANG, C ROB MD Unavailable Unavailable TANG, C ROB JOE Unavailable Unavailable TANG C ROB JOE Unavailable Unavailable TANG, C ROB MD Unavailable Unavailable TANG, C ROB MD Unavailable Unavailable TANG, C ROB MD Unavailable Unavailable TANG, C ROB JOE Unavailable Unavailable TANG, C ROB JOE Unavailable Unavailable Ting BECKWITH MD Unavailable Unavailable Ting BECKWITH MD Unavailable Unavailable Mari, F Louis PA Unavailable Unavailable Mari, F Louis PA Unavailable Unavailable [place], F Louis PA Unavailable Unavailable Mari, F Louis PA Unavailable Unavailable [place], F Louis PA Unavailable Unavailable Mari, F Louis PA Unavailable Unavailable Mari, F Louis PA Unavailable Unavailable [place], F Louis PA Unavailable Unavailable [place], F Louis PA Unavailable Unavailable [place], F Louis PA Unavailable Unavailable LUCIE MOREIRA [...] Unavailable Hamad, Tyrese MD Unavailable Unavailable Hamad, Tyrsee MD Unavailable Unavailable Andi You Unavailable Unavailable [...] is protected by Article 27-F of the [facility] Public Health law. If you continue you may have access to information: Regarding HIV / AIDS; Provided by facilities licensed or operated by the [facility] Office of Mental Health; or Provided by the [facility] Office for People With Developmental Disabilities. If such information is present, then the following [facility] mandated warning applies: This information has been [...] law may result in a fine or group home sentence or both. A general authorization for the release of medical or other information is NOT sufficient authorization for further disc losure. Allergies and Adverse Reactions Type Description Substance Reaction Status Data Source(s ) Propensity to adverse reactions PENICILLINS [facility] Propensity to adverse reactions PCN (penicillin) PCN (penicillin) [facility] Drug allergy Drug allergy birch Shortness of Breath I [facility] Drug allergy Drug allergy Penicillins Rash I [facility] Family History Family Member Name Family Member Gender Family Member Status Date o f Status Description Data Source(s) Unknown Male Problem [facility] ([facility] ) Encounters Encounter Providers Location Date Indications Data Source(s ) Outpatient Attender: GEORGE MINOR MD [facility] 07/09 12:30:00 PM EST [facility] (George Minor MD) Outpatient Attender: REAGAN Beckwith/Kendall/Redd/Umm 06/18/2021 03:00:00 PM EDT [facility] Outpatient Attender: GEORGE MINOR MD [facility] 05/10 01:30:00 PM EDT [facility] (George Minor MD) Outpatient Attender: Dilip HAMPTON CPSCAORT-CPSCAEND 05/04/2021 09:29:00 AM EDT - 05/04/2021 09:30:00 AM EDT [facility] Patient discharged. Outpatient Attender: REAGAN Beckwith/Kendall/Redd/Umm 04/30/2021 03:00:00 PM EDT [facility] ([facility], ) Outpatient Attender: ANDRE STREETER DO [facility] 03/21 08:38:00 AM EDT - 03/21/2021 08:39:00 AM EDT [facility]8 [facility] E118 Patient discharged. Outpatient Attender: GEORGE MINOR MD [facility] 02/26 04:00:00 PM EDT [facility] (George Minor MD) Inpatient Attender: Jo Molina MDAdmitter: Jo gaffney MD [id number] 02/07/2021 03:03:00 PM EDT - 02/11/2021 04:16:00 PM EDT [facility] Patient discharged. Outpatient Attender: GEORGE MINOR MD [facility] 02/05 01:45:00 PM EDT [facility] (George Minor MD) Outpatient Attender: ROB Beckwith/Kendall/Redd/Kayley araujo 01/23/2021 09:30:00 AM EDT [facility] ([facility] Inpatient Attender: LIDA Mitchell nder: AMARA BOCANEGRA MDAttender: DWAYNE HUANGStefano MDAttender: LUCIE HARISH MDAdmitter: DWAYNE MARTINEZ MDReferrer: SHARA FORD . [id number] 01/14/2021 12:00:00 AM EDT - 01/19/2021 04:34:00 PM EDT Chest pain, unspecified [facility] Chest pain, unspecified Patient discharged. Office Visit Attender: Cydney Beckwith/Kendall/Redd/ Reindl 01/11/2021 09:15:00 AM EDT [facility] ([facility], ) Outpatient Attender: ANDRE STREETER DO ED-IMAG 01/10 01:07:00 PM EDT - 01/10/2021 01:08:00 PM EDT [facility] HYPOTHYROIDISM Patient discharged. Outpatient Attender: Dilip CALVERTCAORT-CPSCAEND 01/03/2021 11:13:00 AM EDT - 01/03/2021 11:14:00 AM EDT [facility] Patient discharged. Outpatient Attender: Dilip CALVERTCAHUGH-CPSCAEND 01/01/2021 03:37:00 PM EDT - 01/01/2021 03:38:00 PM EDT [facility] Patient discharged. Office Visit Attender: Arlene Beckwith/Kendall/Redd/R eindgayle 12/25/2020 09:15:00 AM EDT [facility] ([facility]) Outpatient Attender: GEORGE MINOR MD [facility] 12/04 01:15:00 PM EDT [facility] (George Minor MD) Outpatient Attender: Cydney Beckwith/Kendall/Redd/ Reindl 11/09/2020 10:30:00 AM EST [facility] ([facility]) Outpatient Attender: Dilip CALVERTCAORT-CPSCAEND 11/06/2020 02:38:00 PM EST - 11/06/2020 02:39:00 PM EST [facility] Patient discharged. Outpatient Attender: ELISABETH DE LOS SANTOS DPM PCConsultant: CASSY Maldonado REASON DO 10/31/2020 10:56:00 AM EST - 10/31/2020 10:56:00 AM [facility] Outpatient Attender: GEORGE MINOR MD [facility] 10/05 01:15:00 PM EST [facility] (George Minor MD) Office Visit Attender: PARMINDER WILL DPM [place] 09/02 12:45:00 PM EST [facility] ([facility] Outpatient Attender: Dilip FLETCHERttender: Elisha HAMPTON CPSCAORT-CPSCAEND 09/20/2020 09:34:00 AM EST - 09/20/2020 09:35:00 AM ES T E11.65 [facility] E11.65 Patient discharged. Outpatient Attender: Arlene Asif RPA Tang/Benton/Redd/R eindl 09/05/2020 09:15:00 AM EST [facility] ([facility] Outpatient Attender: ELISABETH DE LOS SANTOS DPM PCConsultant: CASSY STREETER DO 08/22/2020 09:36:00 AM EST - 08/22/2020 09:36:00 AM [facility] Outpatient Attender: GEORGE MINOR MD [facility] 08/03 01:30:00 PM EST [facility] (George Minor MD) Office Visit Attender: PARMINDER WILL DPM [place] 10/2019 09:00:00 AM EST [facility] ([facility] Outpatient Attender: Arlene Beckwith/Kendall/Redd/R eindl 08/02/2020 09:15:00 AM EST [facility] ([facility] Outpatient Attender: ELISABETH DE LOS SANTOS DPM PCConsultant: CASSY STREETER DO 07/13/2020 02:34:00 PM EST - 07/13/2020 02:34:00 PM EST [facility] Outpatient 07/05/2020 06:10:00 PM EST [facility] Emergency Attender: IRON RANDALLConsultant: ANDRE SUAREZ ON DO 07/05/2020 03:34:00 PM EST - 07/05/2020 07:52:00 PM EST [facility] Patient discharged. Outpatient Attender: Cydney Beckwith/Kendall/Redd/ Umm 07/03/2020 01:15:00 PM EST [facility] ([facility], ) Outpatient Attender: ELISABETH DE LOS SANTOS DPM PCConsultant: CASSY D REASON DO 06/13/2020 02:03:00 PM EDT - 06/13/2020 02:03:00 PM EDT [facility] Outpatient Attender: GEORGE MINOR MD [facility] 06/02 11:15:00 AM EDT [facility] (George Minor MD) Emergency Attender: IRON Johnsonltant: ANDRE SUAREZ ON DO 05/31/2020 04:25:00 PM EDT - 05/31/2020 06:56:00 PM EDT [facility] Patient discharged. Outpatient Attender: ELISABETH DE LOS SANTOS DPM PCConsultant: CASSY D REASON DO 05/31/2020 03:06:00 PM EDT - 05/31/2020 03:06:00 PM EDT [facility] Emergency Attender: Louis HAMPTON ED-ED 11:46:00 AM EDT - 05/30/2020 12:51:00 PM EDT CUT LEFT FINGER [facility] CUT LEFT FINGER Patient discharged. Outpatient Attender: Dilip HAMPTON CPSCAORT-CPSCAEND 05/29/2020 10:08:00 AM EDT - 05/29/2020 10:09:00 [facility] Attender: ELISABETH DE LOS SANTOS DPM PCConsultant: CASSY D REASON DO 05/22/2020 04:02:00 PM EDT - 05/22/2020 04:02:00 PM EDT [facility] Emergency Attender: MARIELLA QUEZADA MDConsultant: ANDRE ENNIS DO 05/19/2020 07:31:00 PM EDT - 05/19/2020 08:46:00 PM EDT [facility] Patient discharged. Inpatient Attender: Tyrese Oconnor MDAtt rosalind: CAYLA Andrewender: CAYLA Perez: JIMENEZ DUNHAM MDAdmitter: JIMENEZ DUNHAM MD [id number] 03/23/2020 01:22:32 AM EDT - 03/29/2020 01:47:00 PM EDT [facility] Patient discharged. Emergency Attender: TREVOR HAMPTON ED-ED 11/23 05:01:00 PM EDT - 11/24/2019 08:48:00 PM EDT LEG CRAMPS [facility] LEG CRAMPS Patient discharged. Immunizations Vaccine Date Status Description Data Source(s) COVID-19 VACCINE Moderna 01/01/2021 12:00:00 AM EDT completed [facility] Vaccine Series Complete: YESThis Data wa s Submitted to [facility] Via [employer]. COVID-19 VACC,MRNA(MODERNA)/PF 01/01/2021 12:00:00 AM EDT completed [facility] COVID-19 VACCINE Moderna 12/02/2020 12:00:00 AM EDT completed [facility] Vaccine Series Complete: NOThis Data was Submitted to [facility] Via [employer]. COVID-19 VACCINE, MRNA-1273, LNP-S (MODERNA)/PF 12/02/2020 1 2:00:00 AM EDT completed [facility] Medications Medication Brand Name Start Date Product Form Dose Route Admi nistrative Instructions Pharmacy Instructions Status Indications Reaction Description Data Source(s) Xarelto Xarelto 05/11/2021 12:00:00 AM EDT active [facility] (George Minor MD) rivaroxaban 15 MG Oral Tablet [Xarelto] Xarelto 05/11/2021 12:00:0 0 AM EDT completed [facility] (Mariama Minor MD) Xarelto Xarelto 05/10/2021 12:00:00 AM EDT complet ed [facility] (George Minor MD) atorvastatin 40 MG Oral Tablet Atorvastatin Calcium 02/26/2021 1 2:00:00 AM EDT ORAL active [facility] ( George Minor MD) Hydroxyzine Hydrochloride 10 MG Oral Tablet Hydroxyzine HCL 02/26/2021 12:00:00 AM EDT active [facility] (Mariama Minor MD) carvedilol 12.5 MG Oral Tablet Carvedilol 02/26/2021 12:00:00 AM EDT active [facility] (eGorge Minor MD) Amlodipine 5 MG Oral Tablet amLODIPine (NORVASC) 5 MG tablet amLODIPine (NORVASC) 5 MG tablet 02/12/2021 12:00:00 AM EDT 5 mg Oral active Take 1 tablet (5 mg total) by mouth daily [facility] Furosemide 40 MG Oral Tablet furosemide (LASIX) tablet 40 mg furosemide (LASIX) tablet 40 mg 02/11/2021 09:00:00 AM EDT 40 mg Oral activ e 40 mg, Oral, Every morning, First dose on 02/11/21 at 0900 [facility] Medication administered onsite furosemide (LASIX) injection 20 mg [id number] 02/11/2021 01:00:00 AM EDT 20 mg Intravenous completed 20 mg, I ntravenous, Once, On 02/11/21 at 0100, For 1 dose [facility] Medication administered onsite Nitroglycerin 0.4 MG Sublingual Tablet n itroglycerin (NITROSTAT) 0.4 MG SL tablet nitroglycerin (NITROSTAT) 0.4 MG SL tablet 02/11/2021 12:00:00 A M EDT 0.[address] 1 t ablet (0.4 mg total) under the tongue every 5 (five) minutes as needed for chest pain [facility] carvedilol 12.5 MG Oral Tablet carvedilol (COREG) 12.5 MG tablet carvedilol (COREG) 12.5 MG tablet 02/11/2021 12:00:00 AM EDT 12.5 mg Oral active Take 1 tablet (12.5 mg total) by mouth 2 (two) times a day [facility] Aspirin 81 MG Delayed Release Oral Tablet aspirin 81 M G EC tablet aspirin 81 MG EC tablet 02/11/2021 12:00:00 AM EDT 81 mg Oral active Take 1 tablet (81 mg total) by mouth daily [facility] clopidogrel 75 MG Oral Tablet clopidogrel (PLAVIX) 75 MG tablet clopidogrel (PLAVIX) 75 MG tablet 02/11/2021 12:00:00 AM EDT 75 mg Oral active Take 1 tablet (75 mg total) by mouth nightly [facility] Hydralazine Hydrochloride 10 MG Oral Tab let hydrALAZINE (APRESOLINE) tablet 10 mg hydrALAZINE (APRESOLINE) tablet 10 mg 02/11/2021 12:00:00 AM EDT 10 mg Oral completed 10 mg, Oral, Once, O n 02/11/21 at 0000, For 1 dose [facility] Medication administered onsite Hydralazine Hydrochloride 10 MG Oral Tab let hydrALAZINE (APRESOLINE) tablet 10 mg hydrALAZINE (APRESOLINE) tablet 10 mg 02/10/2021 06:00:00 PM EDT 10 mg Oral completed 10 mg, Oral, Once, O n 02/10/21 at 1800, For 1 dose [facility] Medication administered onsite Amlodipine 5 MG Oral Tablet amLODIPine (NORVASC) table t 5 mg amLODIPine (NORVASC) tablet 5 mg 02/10/2021 02:00:00 PM EDT 5 mg Oral active 5 mg, Oral, Daily, First dose on 02/10/21 at 1400 [facility] Medication administered onsite furosemide (LASIX) injection 40 mg [id number] 02/10/2021 01:00:00 PM EDT 40 mg Intravenous completed 40 mg, I ntravenous, Once, On 02/10/21 at 1300, For 1 dose
Between blood transfusion units
[facility] Medication administered onsite potassium chloride SA (K-DUR,KLOR-CON) CR tablet 40 mEq [id number] 02/09/2021 04:00:00 PM EDT 40 meq Oral completed 40 mEq, Oral, Once, On 02/09/21 at 1600, For 1 dose [facility] Medication administered onsite Insulin Glargine 100 UNT/ML Injectable S olution [Lantus] insulin glargine (LANTUS) injection 25 Units insulin glargine (LANTUS) injection 25 Units 02/08/2021 09:00:00 PM EDT 25 U Subcutaneous active 25 Units, Subcutaneous, Nightly (Lantus), First dose on Fri02/08/21 at 2100
Basal Insulin (Lantus) Adjustments based on AM Blood Glucose Blood Glucose&nbs p; Adjustment Less than 70 mg/dl Nursing to initiate hypoglycemia protocol 70 to 100 mg/dl &nb sp; Pharmacy to decrease total daily dose by 20% 101 to 200 mg/dl &nb sp; No Change
[facility] Medication administered onsite sodium chloride 0.9% (NS) infusion [id number] 02/08/2021 04:00:00 P M EDT Intravenous completed at 100 mL/hr, Intravenous, Continuous, Starting on Fri02/08/21 at 1600, For 6 hours, Post-op [facility] Medication administered onsite clopidogrel 75 MG Oral Tablet clopidogrel (PLAVIX) tab let 75 mg clopidogrel (PLAVIX) tablet 75 mg 02/08/2021 04:00:00 PM EDT 75 mg Oral active 75 mg, Oral, Daily, First dose on Libra 02/08/21 at 1600, Post-op
May begin the same day
[facility] Medication administered onsite clopidogrel 75 MG Oral Tablet clopidogrel (PLAVIX) tab let clopidogrel (PLAVIX) tablet 02/08/2021 02:30:24 PM EDT active As needed, Starting on Libra 02/08/21 at 1430, Intra-Procedure [facility] Medication administered onsite 1 ML heparin sodium, porcine 1000 UNT/ML Injection hep fabian (porcine) injection heparin (porcine) injection 02/08/2021 02:02:58 PM EDT active As needed, Starting on Libra 02/08/21 at 1402, Intra-Procedure [facility] Medication administered onsite lidocaine 1 % injection [id number] 02/08/2021 01:53:49 PM EDT active As needed, Starting on Libra at 1353, Intra-Procedure [facility] Medication administered onsite fentaNYL Citrate (PF) (SUBLIMAZE) injection [id number] 02/08/2021 01:50:42 PM EDT active As neede d, Starting on Libra 02/08/21 at 1350, Intra-Procedure [facility] Medication administered onsite 2 ML Midazolam 1 MG/ML Injection midazolam (VERSED) in jection midazolam (VERSED) injection 02/08/2021 01:50:35 PM EDT active As needed, Starting on Libra 02/08/21 at 1350, Intra-Procedure [facility] Medication administered onsite potassium chloride SA (K-DUR,KLOR-CON) CR tablet 20 mEq [id number] 02/08/2021 08:00:00 AM EDT 20 meq Oral completed 20 mEq, Oral, Once, On Libra 02/08/21 at 0800, For 1 dose [facility] Medication administered onsite Hydralazine Hydrochloride 10 MG Oral Tab let hydrALAZINE (APRESOLINE) tablet 10 mg hydrALAZINE (APRESOLINE) tablet 10 mg 02/08/2021 12:00:00 AM EDT 10 mg Oral aborted 10 mg, Oral, E very 8 hours (scheduled), First dose on Fri02/08/21 at 0000
Hold for SBP<140
[facility] Medication administered onsite atorvastatin 80 MG Oral Tablet atorvastatin (LIPITOR) tablet 80 mg atorvastatin (LIPITOR) tablet 80 mg 02/07/2021 09:00:00 PM EDT 80 mg Oral active 80 mg, Oral, Nightly, First dose on Fri02/07/21 at 2100 [facility] Medication administered onsite carvedilol 12.5 MG Oral Tablet carvedilol (COREG) tabl et 12.5 mg carvedilol (COREG) tablet 12.5 mg 02/07/2021 09:00:00 PM EDT 12.5 mg Oral active 12.5 mg, Oral, 2 times daily, First dose on Fri02/07/21 at 2099 [facility] Medication administered onsite Sertraline 100 MG Oral Tablet sertraline (ZOLOFT) tabl et 100 mg sertraline (ZOLOFT) tablet 100 mg 02/07/2021 09:00:00 PM EDT 100 mg Oral active 100 mg, Oral, Nightly, First dose on Fri02/07/21 at 2100 [facility] Medication administered onsite ropinirole 1 MG Oral Tablet rOPINIRole (REQUIP) tablet 1 mg rOPINIRole (REQUIP) tablet 1 mg 02/07/2021 09:00:00 PM EDT 1 mg Oral active 1 mg, Oral, 2 times daily, First dose on Fri02/07/21 at 2100 [facility] Medication administered onsite clopidogrel 75 MG Oral Tablet clopidogrel (PLAVIX) tab let 75 mg clopidogrel (PLAVIX) tablet 75 mg 02/07/2021 09:00:00 PM EDT 75 mg Oral aborted 75 mg, Oral, Nightly, First dose on Fri02/07/21 at 2100 [facility] Medication administered onsite potassium chloride SA (K-DUR,KLOR-CON) CR tablet 20 mEq [id number] 02/07/2021 08:00:00 PM EDT 20 meq Oral completed 20 mEq, Oral, Once, On Fri02/07/21 at 2000, For 1 dose [facility] Medication administered onsite 1 ML heparin sodium, porcine 1000 UNT/ML Injection heparin (porcine) injection 4,900 Units heparin (porcine) injection 4,900 Units 02/07/2021 05:00:00 PM EDT 60 U/kg Intravenous completed 4,900 Unit s (rounded from 4,872 Units = 60 Units/kg 81.2 kg), Intravenous, Once, On Fri02/07/21 at 1700, For 1 dose
Do not exceed 5,000 units or 60 units/kg (whichever is less)
[facility] Medication administered onsite sodium chloride 0.9% (NS) infusion [id number] 02/07/2021 05:00:00 P M EDT Intravenous aborted at 75 mL/hr, Intravenous, Continuous, Starting on Fri02/07/21 at 1700 [facility] Medication administered onsite Insulin Lispro 100 [...] cover POC glucose at 08:00, 12:00, 17:00.
[facility] Medication administered onsite Nitroglycerin 0.02 MG/MG Topical Ointmen t nitroglycerin (NITROSTAT) 2 % ointment 1 inch nitroglycerin (NITROSTAT) 2 % ointment 1 inch 02/08/20 04:00:00 PM EDT 1 g Topical aborted 1 inch ( 1 g), Topical, Every 6 hours (scheduled), First dose on Fri02/07/21 at 1600
1 inch = 1 gram
[facility] Medication administered onsite pantoprazole 40 MG Delayed Release Oral Tablet pantoprazole (PROTONIX) EC tablet 40 mg pantoprazole (PROTONIX) EC tablet 40 mg 02/07/2021 04:00:00 PM E DT 40 mg Oral active Gastroesophageal Reflux Diseas e 40 mg, Oral, Daily, Indications: Gastroesophageal Reflux Disease, First dose on Fri02/07/21 at 1600 [facility] Gastroesophageal Reflux Disease Medication administered onsite Aspirin 81 MG Delayed Release Oral Tablet aspirin EC t ablet 81 mg aspirin EC tablet 81 mg 02/07/2021 04:00:00 PM EDT 81 mg Oral activ e 81 mg, Oral, Daily, First dose on Fri02/07/21 at 1600 [facility] Medication administered onsite 500 ML heparin [...] 1 unit/kg/hr IV58.1 - 87 Therapeutic, No Lbzgwn67.1 - 97 Decrease infusion 1 unit/kg/hr IV [...] single port tubing (SmartSite Infusion Set ref [id number]). Medication and tubing is to be discarded if infusion off for 4 hours.
[facility] Medication administered onsite tramadol hydrochloride 50 MG Oral Tablet traMADol (ULT NOHEMI) tablet 50 mg traMADol (ULTRAM) tablet 50 mg 02/07/2021 03:35:12 PM EDT 50 mg Oral active 50 mg, Oral, 2 times daily PRN, mild pain (1-3), Starting on Fri02/07/21 at 1535, For 7 days [facility] Medication administered onsite Nitroglycerin 0.4 MG Sublingual Tablet n itroglycerin (NITROSTAT) SL tablet 0.4 mg nitroglycerin (NITROSTAT) SL tablet 0.4 mg 02/07/2021 03:34:10 P M EDT 0.4 mg Sublingual active 0.4 mg, S ublingual, Every 5 min PRN, chest pain, Starting on Fri02/07/21 at 1534
May administer up to 3 doses per episode.
[facility] Medication administered onsite Acetaminophen 325 MG / Oxycodone Hydroch loride 5 MG Oral Tablet oxyCODONE- acetaminophen (PERCOCET) 5-325 MG 1 tablet oxyCODONE-acetaminophen (PERCOCET) 5- 325 MG 1 tablet 02/07/2021 03:33:30 PM EDT 1 {tbl} Oral a ctive 1 tablet, Oral, Every 8 hours PRN, moderate pain (4-6), Starting on Fri02/07/21 at 1533, For 7 days [facility] Medication administered onsite Acetaminophen 325 MG Oral Tablet acetaminophen (TYLENO L) 325 MG tablet 650 mg acetaminophen (TYLENOL) 325 MG tablet 650 mg 02/07/2021 03:32:06 PM EDT 650 mg Oral active 650 mg, Or al, Every 6 hours PRN, mild pain (1-3), Starting on Fri02/07/21 at 1532 [facility] Medication administered onsite potassium chloride (K-DUR) dissolvable tablet 40 mEq [id number] 99-01/19/2021 08:00:00 AM EDT 40 meq Oral completed 40 mEq, Oral, Once, On Fri01/19/21 at 0800, For 1 dose
May be dissolved in water for patients with a G- Tube or unable to swallow. If concern for clogging G-Tube, may contact Pharmacy to switch formulation to a powder packet.
[facility] Medication administered onsite Isopropyl Alcohol 0.7 ML/ML Medicated Pad Alcohol Swabs Pad Alcohol Swabs Pad 01/19/2021 12:00:00 AM EDT active Use as directed. use 8-10 per day, E11.65, #200, 1 refill [facility] FreeStyle [place] Lite w/Device Kit [id number] 01/19/2021 12:00:00 A M EDT active Use as directed. Rashawn t 4-6 times daily. Dx code 11.65. [facility] FreeStyle Lancets [id number] 01/19/2021 12:00:00 AM EDT active Use as directed. Use 4-6 times daily. Dx code 11.65. [facility] FreeStyle Lite Test In Vitro Strip (glucose blood) [id number] 01/19/2021 12:00:00 AM EDT active Test 4-6 times daily. Dx code 11.65. [facility] 3 ML Insulin Lispro 100 UNT/ML Pen Injec tor Insulin Lispro (1 Unit Dial) 100 UNIT/ML Subcutaneous Solution Pen-injector (HumaLOG KwikPen) Insulin Lispro (1 Unit Dial) 100 UNIT/ML Subcutaneous Solution Pen-injector (HumaLOG KwikPen) 01/19/2021 12:00:00 AM EDT active #25 pens, inject 3 times daily before meal per the insulin algorithm, MDD: 120units, 1 [facility] 3 ML Insulin Lispro 100 UNT/ML Pen Injec tor Insulin Lispro (1 Unit Dial) 100 UNIT/ML Subcutaneous Solution Pen-injector (HumaLOG KwikPen) Insulin Lispro (1 Unit Dial) 100 UNIT/ML Subcutaneous Solution Pen-injector (HumaLOG KwikPen) 01/19/2021 12:00:00 AM EDT aborted #25 pens, inject 3 times daily before meal per the insulin algorithm, MDD: 120units, 1 [facility] Insulin Syringe-Needle U-100 31G X 15/64" 0.5 ML [id number] 01/19/2021 12:00:00 AM EDT active #600. Use 4-6 carol ly, E11.65, 1 [facility] 3 ML Insulin Lispro 100 UNT/ML Pen Injec tor Insulin Lispro (1 Unit Dial) 100 UNIT/ML Subcutaneous Solution Pen-injector (HumaLOG KwikPen) Insulin Lispro (1 Unit Dial) 100 UNIT/ML Subcutaneous Solution Pen-injector (HumaLOG KwikPen) 01/19/2021 12:00:00 AM EDT aborted # 5 pens, inject 3 times daily before meal per the insulin algorithm, MDD: 120units, 1 refill [facility] Insulin Pen Needle 31G X 5 MM [id number] 01/19/2021 12:00:00 AM EDT active Use as directed. Use 4-6 needles per day . [facility] 3 ML Insulin Glargine 100 UNT/ML Pen Inj art Insulin Glargine 100 UNIT/ML Subcutaneous Solution Pen-injector (LANTUS SOLOSTAR) Insulin Glargine 100 UNIT/ML Subcutaneous Solution Pen-injector (LANTUS SOLOSTAR) 01/19/2021 12:00:00 AM EDT active Inject 4 4 Units subcutaneously every night, MDD 100 [facility] Insulin Glargine 100 UNT/ML Injectable S olution insulin glargine (LANTUS) injection 44 Units insulin glargine (LANTUS) injection 44 Units 10:00:00 PM EDT 44 U Subcutaneous active 44 Units, Subcutaneous, Nightly, First dose (after last modification) on [facility] 01/18/21 at 2200, For 26 doses
For [...] glucose more than 400 mg/dL: notify provider
[facility] Medication administered onsite insulin lispro (HUMALOG) injection CUSTO MIZABLE DOSE INSULIN patients 1-25 Units [id number] 01/18/2021 06:00:00 PM EDT U Subcutaneous active 1-25 Units, Subcutaneous, Three Times Daily-With Meals, First dose (after last modification) on [facility] 01/18/21 at 1800, For 87 doses
Nursing [...] gm if only clear liquid consumed): 29 [facility] Medication administered onsite bacitracin ointment [id number] 01/18/2021 12:00:00 PM EDT Topical active Topical, 2 Times Carol ly, First dose on [facility] 01/18/21 at 1200, For 3 days
Apply to nares
[facility] Medication administered onsite Chlorothiazide 28 MG/ML Injectable Solut ion chlorothiazide (DIURIL) injection 500 mg chlorothiazide (DIURIL) injection 500 mg 01/18/2021 11:45:00 AM EDT 500 mg Intravenous active 500 mg, Intravenous, 2 Times Daily, First dose (after last modification) on [facility] 01/18/21 at 1145, For 8 doses
Add 18 ml of sterile water for inj to vial = 28mg/ml
[facility] Medication administered onsite NIFEdipine (PROCARDIA XL) 24 hr tablet 60 mg [id number] 01/18/2021 10:45:00 AM EDT 60 mg Oral active 60 mg, O ral, Daily Standard, First dose on [facility] 01/18/21 at 1045, For 30 days
Do not crush or chew
[facility] Medication administered onsite Amlodipine 5 MG Oral Tablet amlodipine (NORVASC) table t 5 mg amlodipine (NORVASC) tablet 5 mg 01/18/2021 09:15:00 AM EDT 5 mg Oral completed 5 mg, Oral, Daily Standard, First dose on [facility] 01/18/21 at 0915, For 1 day
Check vital signs before administering
[facility] Medication administered onsite Sodium Chloride 0.111 MEQ/ML Nasal Solut ion sodium chloride (OCEAN) 0.65 % nasal spray 2 spray sodium chloride (OCEAN) 0.65 % nasal spray 2 spray 09:00:00 AM EDT 2 {spray} Each Nare active 2 spray, Each Nare, Three Times Daily Standard, First dose on [facility] 01/18/21 at 0900, For 30 days [facility] Medication administered onsite Sertraline 100 MG Oral Tablet sertraline (ZOLOFT) tabl et 100 mg sertraline (ZOLOFT) tablet 100 mg 01/18/2021 09:00:00 AM EDT 100 mg Oral active 100 mg, Oral, Daily Standard, First dose (after last modification) on [facility] 01/18/21 at 0900, For 26 doses [facility] Medication administered onsite pantoprazole 40 MG Delayed Release Oral Tablet pantoprazole (PROTONIX) EC tablet 40 mg pantoprazole (PROTONIX) EC tablet 40 mg 01/18/2021 07:30:00 AM E DT 40 mg Oral active 40 mg, Ora l, Before Breakfast, First dose (after last modification) on [facility] 01/18/21 at 0730, For 26 doses
Do not crush or chew
[facility] Medication administered onsite Metolazone 2.5 MG Oral Tablet metOLazone 2.5 MG Oral T ablet (ZAROXOLYN) metOLazone 2.5 MG Oral Tablet (ZAROXOLYN) 01/18/2021 12:00:00 AM EDT 2.5 mg Oral active Take 1 tablet by mariam th daily [facility] Insulin Glargine 100 UNT/ML Injectable S olution Insulin Glargine 100 UNIT/ML Subcutaneous Solution (LANTUS) Insulin Glargine 100 UNIT/ML Subcutaneou s Solution (LANTUS) 01/18/2021 12:00:00 AM EDT 30 U Subcutaneous aborted Inject 30 Units into the skin nightly [facility] 24 HR Nifedipine 60 MG Extended Release Oral Tablet NIFEdipine ER 60 MG Oral Tablet Extended Release 24 Hour (ADALAT CC) NIFEdipine ER 60 MG Oral Tablet Extended Release 24 Hour (ADALAT CC) 01/18/2021 12:00:00 AM EDT 60 mg Oral active Take 1 tablet by mouth daily [facility] torsemide 100 MG Oral Tablet Torsemide 100 MG Oral Tab let (DEMADEX) Torsemide 100 MG Oral Tablet (DEMADEX) 01/18/2021 12:00:00 AM EDT 100 mg Oral active Take 1 tablet by mariam th Two Times Daily Take 1 tablet in the morning and 1 tablet in the evening [facility] atorvastatin 40 MG Oral Tablet Atorvastatin Calcium 40 MG Oral Tablet (LIPITOR) Atorvastatin Calcium 40 MG Oral Tablet (LIPITOR) 01/18/2021 12:00:00 AM EDT 40 mg Oral active Take 1 tablet by mouth d [facility] Oxymetazoline hydrochloride 0.5 MG/ML Na kem [place] Oxymetazoline HCl 0.05 % Nasal Solution (AFRIN) Oxymetazoline HCl 0.05 % Nasal Solution (AFRIN) 2020 12:00:00 AM EDT 2 {spray} Nasal active 2 sprays by Nasal route Two Times Daily for 3 days [facility] Sodium Chloride 0.111 MEQ/ML Nasal Solut ion Saline Nasal [place] 0.65 % Nasal Solution (OCEAN) Saline Nasal [place] 0.65 % Nasal Solution (OCEAN) 01/18 12:00:00 AM EDT 2 {spray} Nasal active 2 sprays by Nasal route Three times daily [facility] Insulin Glargine 100 UNT/ML Injectable S [...] glucose more than 400 mg/dL: notify provider
[facility] Medication administered onsite POLYETHYLENE GLYCOL 3350 [...] due to potential increased risk for aspiration.
[facility] Medication administered onsite ropinirole 1 MG Oral Tablet ropinirole (REQUIP) tablet 2 mg ropinirole (REQUIP) tablet 2 mg 01/17/2021 09:00:00 PM EDT 2 mg Oral active 2 mg, Oral, 2 Times Daily, First dose (after last modification) on Fri01/17/21 at 2100, For 54 doses [facility] Medication administered onsite 60 ACTUAT Budesonide 0.08 MG/ACTUAT / fo rmoterol fumarate 0.0045 MG/ACTUAT Metered Dose Inhaler budesonide-formoterol (SYMBICORT) 80-4.5 MCG/ACT inhaler 2 puff budesonide-formoterol (SYMBICORT) 80-4.5 MCG/ACT inhal er 2 puff 01/17/2021 08:00:00 PM EDT 2 {puff} Inhalation active 2 puff, Inhalation, 2 Times Daily, First dose on Fri01/17/21 at 2000, For 11 days
Shake well before using
[facility] Medication administered onsite insulin lispro (HUMALOG) injection CUSTO MIZABLE DOSE INSULIN patients 1-25 Units [id number] 01/17/2021 06:00:00 PM EDT U Subcutaneous aborted [...] gm if only clear liquid consumed): 25 [facility] Medication administered onsite Sodium Bicarbonate 650 MG Oral Tablet sodium bicarbona te tablet 650 mg sodium bicarbonate tablet 650 mg 01/17/2021 02:45:00 PM EDT 650 mg Oral active 650 mg, Oral, 2 Times Daily, First dose on Fri01/17/21 at 1445, For 30 days [facility] Medication administered onsite bumetanide (BUMEX) injection 4 mg [id number] 01/16/2021 05:15:00 PM EDT 4 mg Intravenous active 4 mg, In travenous, Every 12 hours, First dose on Fri01/16/21 at 1730, For 10 doses [facility] Medication administered onsite Calcitriol 0.19662 MG Oral Capsule calcitRIOL (ROCALTR OL) capsule 0.25 mcg calcitRIOL (ROCALTROL) capsule 0.25 mcg 01/16/2021 09:00:00 AM EDT 0.25 ug Oral active 0.25 mcg, Oral , Daily Standard, First dose on Fri01/16/21 at 0900, For 30 days [facility] Medication administered onsite Amlodipine 5 MG Oral Tablet amlodipine (NORVASC) table t 5 mg amlodipine (NORVASC) tablet 5 mg 01/16/2021 09:00:00 AM EDT 5 mg Oral aborted 5 mg, Oral, Daily Standard, First dose (after last modification) on Fri01/16/21 at 0900, For 7 doses [facility] Medication administered onsite Aspirin 81 MG Chewable Tablet aspirin chewable tablet 324 mg aspirin chewable tablet 324 mg 01/16/2021 07:00:00 AM EDT 324 mg Oral comp leted 324 mg, Oral, Once, On Fri01/16/21 at 0700, For 1 dose
Chew tablet before swallowing.
[facility] Medication administered onsite Oxymetazoline hydrochloride 0.5 MG/ML [facility] [place] oxymetazoline (AFRIN) 0.05 % nasal spray 2 spray oxymetazoline (AFRIN) 0.05 % nasal spray 2 spray 01/15 09:00:00 PM EDT 2 {spray} Each Nare active 2 spray, Each Nare, 2 Times Daily, First dose on Fri01/15/21 at 2100, For 14 doses [facility] Medication administered onsite ferrous gluconate 324 MG Oral Tablet Ferrous Gluconate (FERGON) tablet 324 mg Ferrous Gluconate (FERGON) tablet 324 mg 01/15/2021 09:00:00 PM EDT 324 mg Oral active 324 mg, Oral, 2 Times Daily, First dose on Fri01/15/21 at 2100, For 30 days [facility] Medication administered onsite tramadol hydrochloride 50 MG Oral Tablet tramadol (ULT NOHEMI) tablet 50 mg tramadol (ULTRAM) tablet 50 mg 01/15/2021 07:08:36 PM EDT 50 mg Oral active 50 mg, Oral, Every 12 hours PRN, Moderate Pain (Pain Scale Score 4-6), Starting on Fri01/15/21 at 1908, For 4 days 22 hours [facility] Medication administered onsite Cyclobenzaprine hydrochloride 10 MG Oral Tablet cyclobenzaprine (FLEXERIL) tablet 10 mg cyclobenzaprine (FLEXERIL) tablet 10 mg 01/15/2021 06:57:42 PM EDT 10 mg Oral active 10 mg, Oral, Thr ee Times Daily-PRN, Muscle spasms, Starting on Fri01/15/21 at 1857, For 30 days [facility] Medication administered onsite Hydroxyzine Hydrochloride 10 MG Oral Tablet hydrOXYzin e (ATARAX) tablet 10 mg hydrOXYzine (ATARAX) tablet 10 mg 01/15/2021 06:57:18 PM EDT 10 mg Oral active 10 mg, Oral, Three Times Daily-PRN, Anxiety, Starting on Fri01/15/21 at 1857, For 30 days [facility] Medication administered onsite furosemide (LASIX) injection 80 mg [id number] 01/15/2021 03:15:00 PM EDT 80 mg Intravenous completed 80 mg, I ntravenous, Once, On Fri01/15/21 at 1515, For 1 dose
Notify provider if systolic blood pressure less than: 90 [facility] Medication administered onsite Amlodipine 5 MG Oral Tablet amlodipine (NORVASC) table t 10 mg amlodipine (NORVASC) tablet 10 mg 01/15/2021 09:00:00 AM EDT 10 mg Oral aborted 10 mg, Oral, Daily Standard, First dose on Fri01/15/21 at 0900, For 5 doses [facility] Medication administered onsite clopidogrel 75 MG Oral Tablet clopidogrel (PLAVIX) tab let 75 mg clopidogrel (PLAVIX) tablet 75 mg 01/15/2021 09:00:00 AM EDT 75 mg Oral active 75 mg, Oral, Daily Standard, First dose on Fri01/15/21 at 0900, For 30 days [facility] Medication administered onsite torsemide 20 MG Oral Tablet torsemide (DEMADEX) tablet 100 mg torsemide (DEMADEX) tablet 100 mg 01/15/2021 09:00:00 AM EDT 100 mg Oral aborted 100 mg, Oral, Daily Standard, First dose on Fri at 0900, For 30 days [facility] Medication administered onsite tiotropium (SPIRIVA RESPIMAT) inhalation spray 2 puff [id number] 01/15/2021 08:00:00 AM EDT 2 {puff} Inhalation active 2 pu ff, Inhalation, Daily RT, First dose on Fri01/15/21 at 0800, For 30 days [facility] Medication administered onsite Oxycodone Hydrochloride 5 MG Oral Tablet oxyCODONE (ROXICODONE) immediate release tablet 5 mg oxyCODONE (ROXICODONE) immediate release tablet 5 mg 01/14/2021 10:36:18 PM EDT 5 mg Oral aborted 5 mg, Oral, Every 6 hours PRN, Moderate Pain (Pain Scale Score 4-6), Starting on 01/14/21 at 2236, For 3 days
Oxycodone immediate release is limited to 10 mg per dose. Higher doses ( only) require Pain Service consultation and approval.
[facility] Medication administered onsite Insulin Glargine 100 [...] glucose more than 400 mg/dL: notify provider
[facility] Medication administered onsite ropinirole 1 MG Oral Tablet ropinirole (REQUIP) tablet 1 mg ropinirole (REQUIP) tablet 1 mg 01/14/2021 09:00:00 PM EDT 1 mg Oral aborte d 1 mg, Oral, 2 Times Daily, First dose on 01/14/21 at 2100, For 30 days [facility] Medication administered onsite Isosorbide Dinitrate 20 MG Oral Tablet i sosorbide dinitrate (ISORDIL) tablet 20 mg isosorbide dinitrate (ISORDIL) tablet 20 mg 01/14/2021 09:00:00 PM EDT 20 mg Oral active 20 mg, Ora l, Three Times Daily Standard, First dose on 01/14/21 at 2100, For 30 days
Hazardous pharmaceutical waste - Black bin disposal.
[facility] Medication administered onsite atorvastatin 40 MG Oral Tablet atorvastatin (LIPITOR) tablet 40 mg atorvastatin (LIPITOR) tablet 40 mg 01/14/2021 09:00:00 PM EDT 40 mg Oral active 40 mg, Oral, Every evening, First dose on 01/14/21 at 2100, For 30 days [facility] Medication administered onsite Sertraline 100 MG Oral Tablet sertraline (ZOLOFT) tabl et 50 mg sertraline (ZOLOFT) tablet 50 mg 01/14/2021 09:00:00 PM EDT 50 mg Oral aborted 50 mg, Oral, 2 Times Daily, First dose on 01/14/21 at 2100, For 30 days [facility] Medication administered onsite 60 ACTUAT Budesonide 0.16 MG/ACTUAT / fo rmoterol fumarate 0.0045 MG/ACTUAT Metered Dose Inhaler budesonide-formoterol (SYMBICORT) 160-4.5 MCG/ACT inhaler 2 puff budesonide-formoterol (SYMBICORT) 160-4.5 MCG/ACT inha ler 2 puff 01/14/2021 08:00:00 PM EDT 2 {puff} Inhalation aborted 2 puff, Inhalation, 2 Times Daily, First dose on 01/14/21 at 2000, For 14 days
Shake well before using
[facility] Medication administered onsite Hydralazine Hydrochloride 20 MG/ML Injec table Solution hydrALAZINE (APRESOLINE) injection 20 mg hydrALAZINE (APRESOLINE) injection 20 mg 01/14/2021 06 :45:00 PM EDT 20 mg Intravenous completed 20 mg, Intravenous, Once, On 01/14/21 at 1845, For 1 dose
Dilute in 25-50 mL normal saline. Administer over 30 minutes.
[facility] Medication administered onsite Hydralazine Hydrochloride 20 MG/ML Injec table Solution hydrALAZINE (APRESOLINE) injection 10 mg hydrALAZINE (APRESOLINE) injection 10 mg 01/14/2021 06 :43:32 PM EDT 10 mg Intravenous active 10 m g, Intravenous, Every 6 hours PRN, Hypertension, SBP >175 and DBP >110, Starting on 01/14/21 at 1843, For 5 days 22 hours
Dilute in 25-50 mL normal saline. Administer over 30 minutes.
[facility] Medication administered onsite Acetaminophen 325 MG Oral Tablet acetaminophen (TYLENO L) tablet 650 mg acetaminophen (TYLENOL) tablet 650 mg 01/14/2021 06:01:55 PM EDT 65 0 mg Oral active 650 mg, Oral, E very 6 hours PRN, Mild Pain (Pain Scale Score 1- 3), Starting on 01/14/21 at 1801, For 30 days
Maximum daily dose of acetaminophen is 3,000 mg from all sources in 24 hours.
[facility] Medication administered onsite carvedilol 6.25 MG Oral Tablet carvedilol (COREG) tabl et 25 mg carvedilol (COREG) tablet 25 mg 01/14/2021 06:00:00 PM EDT 25 mg Oral active 25 mg, Oral, 2 Times Daily With Meals, First dose on 01/14/21 at 1800, For 30 days
Check vital signs before administering
[facility] Medication administered onsite rivaroxaban 15 MG Oral Tablet rivaroxaban (XARELTO) ta blet 15 mg rivaroxaban (XARELTO) tablet 15 mg 01/14/2021 06:00:00 PM EDT 15 mg Oral active Atrial Fibrillation 15 mg, Oral, Daily with Dinn er, Indications: Atrial Fibrillation, First dose on 01/14/21 at 1800, For 30 days [facility] Atrial Fibrillation Medication administered onsite insulin lispro (HumaLOG) injection HIGH DOSE EATING IN SULIN patients 1-22 Units [id number] 01/14/2021 06:00:00 PM EDT U Subcutaneous aborted 1-22 Units, Subcutaneous, Three Times Daily-With Meals, First dose on 01/14/21 at 1800, For 30 days
Nursing MUST open the 'SQ Insulin Dosing Charts' Sidebar Report, or, the Patient Summary or Summary Report within the ED.
[facility] Medication administered onsite perflutren lipid microspheres (DEFINITY) injectable suspensi on 9.78 mg [id number] 01/14/2021 05:50:15 PM EDT 1.5 mL Intravenous active 9.78 mg (1.5 mL), Intravenous, Once PRN, Other, Echo imaging enhancement, Starting on 01/14/21 at 1750, For 5 days 23 hours [facility] Medication administered onsite Ceftriaxone 1000 MG Injection cefTRIAXone (ROCEPHIN) i nfusion 1 g (premix) cefTRIAXone (ROCEPHIN) infusion 1 g (premix) 01/14/2021 05:45:00 PM EDT 1 g Intravenous aborted 1 g, Intraven ous, at 100 mL/hr, Every 24 hours, First dose on 01/14/21 at 1745, For 7 days
Discouraged Uses: Empiric treatment of post-surgical meningitis (ceftazidime preferred)
[facility] Medication administered onsite furosemide (LASIX) injection 80 mg [id number] 01/14/2021 05:45:00 PM EDT 80 mg Intravenous completed 80 mg, I ntravenous, Once, On 01/14/21 at 1745, For 1 dose
Notify provider if systolic blood pressure less than: 90 [facility] Medication administered onsite azithromycin in NaCl 0.9 % 250 mL infusion 500 mg 01/14/2021 05:45:00 PM EDT 500 mg Intravenous aborted 500 mg, Intr avenous, at 250 mL/hr, Every 24 hours, First dose on Fri01/14/21 at 1745, For 5 days [facility] Medication administered onsite pantoprazole 40 MG Delayed Release Oral Tablet pantoprazole (PROTONIX) EC tablet 40 mg pantoprazole (PROTONIX) EC tablet 40 mg 01/14/2021 05:30:00 PM E DT 40 mg Oral aborted 40 mg, Ora l, Two times daily before breakfast and dinner, First dose on Fri01/14/21 at 1730, For 30 days
Do not crush or chew
[facility] Medication administered onsite albuterol (PROVENTIL HFA) inhaler 2 puff [id number] 01/14/2021 05:14:29 PM EDT 2 {puff} Inhalation active 2 pu ff, Inhalation, Every 6 hours PRN, Wheezing, Starting on Fri01/14/21 at 1714, For 6 days 23 hours
Shake the inhaler well before each spray.
[facility] Medication administered onsite Glucagon 1 MG Injection glucagon (human recombinant) ( GLUCAGEN) injection 1 mg glucagon (human recombinant) (GLUCAGEN) injection 1 mg 01/14/2021 05:09:51 PM EDT 1 mg Intramuscular active 1 mg, Intramuscular, PRN, for glucose <55 without IV access, Starting on Fri01/14/21 at 1709, For 30 days [facility] Medication administered onsite dextrose 50 % IV solution 25 mL [id number] 01/14/2021 05:09:51 PM E DT 25 mL Intravenous active 25 mL, Intrav enous, PRN, Other, blood glucose <55, Starting on Fri01/14/21 at 1709, For 30 days
Not for midline administration.
[facility] Medication administered onsite Glucose 0.417 MG/MG Oral Gel glucose (GLUTOSE) 40 % or al gel 15 g glucose (GLUTOSE) 40 % oral gel 15 g 01/14/2021 05:09:51 PM EDT 15 g Oral active 15 g, Oral, PRN, Low blood s ugar, for gluose 55-69 mg/dl and able to take PO, Starting on 01/14/21 at 1709, For 30 days [facility] Medication administered onsite carvedilol 25 MG Oral Tablet Carvedilol 25 MG Oral Tab let (COREG) Carvedilol 25 MG Oral Tablet (COREG) 2020 12:00:00 AM EDT 25 mg Oral active Take 25 mg by mouth Two times daily with meals [facility] ropinirole 1 MG Oral Tablet rOPINIRole HCl 1 MG Oral T ablet (REQUIP) rOPINIRole HCl 1 MG Oral Tablet (REQUIP) 12/10/2020 12:00:00 AM EDT 2 mg Oral active Take 2 mg by mouth Two Times Daily [facility] Calcitriol 0.83532 MG Oral Capsule Calcitriol 12/04/2020 12:00:00 AM [...] Oral aborted Take 10 mg by mouth [facility] ammonium lactate 120 MG/ML Topical Cream Ammonium Lactate 12 % External Cream (AMLACTIN) Ammonium Lactate 12 % External Cream (AMLACTIN) 2020 12:00:00 AM EST aborted APPLY TO FEET DA [facility] ammonium lactate 120 MG/ML Topical Cream Ammonium Lactate 10/27/2020 12:00:00 AM EST active [facility] ([facility] Trelegy Ellipta 100-62.5-25 MCG/INH Aerosol Powder [place] Activated [id number] 10/15/2020 12:00:00 AM EST 1 {puff} Inhalation activ e Inhale 1 puff into the lungs daily [facility] torsemide 100 MG Oral Tablet Torsemide 100 MG Oral Tab let (DEMADEX) Torsemide 100 MG Oral Tablet (DEMADEX) 10/10/2020 12:00:00 AM EST 100 mg Oral aborted Take 100 mg by mouth every morni ng And 50 mg nightly. [facility] rivaroxaban 15 MG Oral Tablet [Xarelto] Xarelto 10/09/2020 12:00:0 0 AM EST active [facility] (Mariama Minor MD) Trelegy Ellipta Trelegy Ellipta 10/05/2020 12:00:00 AM EST ORAL active [facility] (George ramirez MD) cefdinir 300 MG Oral Capsule Cefdinir 300 MG Oral Caps ule (CEFDINYL) Cefdinir 300 MG Oral Capsule (CEFDINYL) 09/13/2020 12:00:00 AM EST aborted [facility] Levofloxacin 500 MG Oral Tablet Levofloxacin 07/19/2020 12:00:[address] ORAL completed [facility] ([facility]) Allevyn 2X2 07/17/2020 12:00:00 AM EST active [facility] ([facility]) Apply To Right Hallux Everyn 3 Days 07/17/2020 12:00:00 AM EST active [facility] ([facility]) atorvastatin 40 MG Oral Tablet Atorvastatin Calcium 40 MG Oral Tablet (LIPITOR) Atorvastatin Calcium 40 MG Oral Tablet (LIPITOR) 04/13/2020 12:00:00 AM EDT 40 mg Oral aborted Take 40 mg by mouth [facility] clopidogrel 75 MG Oral Tablet clopidogrel (PLAVIX) 75 MG tablet clopidogrel (PLAVIX) 75 MG tablet 03/29/2020 12:00:00 AM EDT 75 mg Oral aborted Take 1 tablet (75 mg total) by mouth nightly [facility] Aspirin 81 MG Delayed Release Oral Tablet aspirin 81 M G EC tablet aspirin 81 MG EC tablet 05/21/2019 12:00:00 AM EDT 81 mg Oral aborted Take 81 mg by mouth daily [facility] HUMULIN R U-500 KWIKPEN 500 UNIT/ML SOPN [id number] 05/07/2019 12:00:00 AM EDT 70 U Subcutaneous aborted Inj ect 70 Units under the skin 3 (three) times a day with meals [facility] Acetaminophen 325 MG / Oxycodone Hydroch loride 5 MG Oral Tablet oxyCODONE- acetaminophen (PERCOCET) 5-325 MG per tablet oxyCODONE-acetaminophen (PERCOCET) 5-325 MG per tablet 1 {tbl} Oral aborted Take 1 tablet by mouth every 8 (eight) hours as needed for pain [facility] Hydralazine Hydrochloride 25 MG Oral Tab let hydrALAZINE (APRESOLINE) 25 MG tablet hydrALAZINE (APRESOLINE) 25 MG tablet 25 mg Oral aborted Take 25 mg by mouth 2 (two) times a day [facility] Metolazone 2.5 MG Oral Tablet metolazone (ZAROXOLYN) 2 .5 MG tablet metolazone (ZAROXOLYN) 2.5 MG tablet 2.5 mg Oral aborted Take 2.5 mg by mouth daily [facility] carvedilol 25 MG Oral Tablet carvedilol (COREG) 25 MG tablet carvedilol (COREG) 25 MG tablet 25 mg Oral aborted [place] e 25 mg by mouth 2 (two) times a day [facility] Amlodipine 10 MG Oral Tablet amLODIPine (NORVASC) 10 M G tablet amLODIPine (NORVASC) 10 MG tablet 10 mg Oral aborted Take 10 mg by mouth nightly [facility] Regular Insulin, Human 500 UNT/ML Inject able Solution insulin U-500 (HUMULIN R) 500 UNIT/ML concentrated injection insulin U-500 (HUMULIN R) 500 UNIT/ML concentrated injection Subcutaneous abort ed Inject into the skin Three times daily with meals 50 units with breakfast and lunch and 45 units with dinner. [facility] Insurance Providers Payer name Policy type / Coverage type Policy ID Covered green party ID Covered green party's relationship to nassar Policy [place] Plan Information BS [facility] Part B [id number] Self Y [id number] BS [facility] Part B [id number] Self Y [id number] BS [place] [employer] [place] [id number] Self Y [id number] BS [place] [place] [facility] [id number] Self Y [id number] BS [place] [facility] [id number] Self Y [id number] BS [place] [facility] [id number] Self Y [id number] [facility] Part [facility] [id number] [id number] Self [id number] [facility] Part B [id number] [id number] Self [id number] [facility] Part B [id number] [id number] [id number] Self [id number] [facility] Part B [id number] [id number] [facility] [id number] [id number] [id number] [facility] [id number] [id number] [id number] Self [id number] [facility] [place] [facility] [id number] Self Y [id number] [facility] [place] [facility] [id number] Self Y [id number] [facility] [place] [facility] [id number] Self Y [id number] [facility] [place] [facility] [id number] Self Y [id number] BS [place] [facility] [id number] Self Y [id number] [facility] [place] [facility] [id number] Self Y [id number] MEDICARE [id number] SP [id number] A BLUE CROSS MEDICARE ADVANTAGE [id number] S [id number] BLUE CROSS MEDICARE ADVANTAGE [id number] S [id number] [place] Primary [id number] Self 0 [id number] Medicare [place] Primary [id number] Self 0 [id number] [place] Primary [id number] Self 0 [id number] Medicare [place] Medicare Primary [id number] Self 0 [id number] Medicare [place] Primary [id number] Self 0 [id number] AETNA MEDICARE [id number] SP MEBPZ [id number] EXCELLUS BCBS MEDICARE Medicare [id number] EXCELLUS MEDICARE BLUE PPO G [id number] Self [id number] EXCELLUS BCBS MEDICARE [id number] Regina [id number] EXCELLUS BCBS MEDICARE [id number] Regina [id number] EXCELLUS BCBS [facility] HMO [id number] S [id number] EXCELLUS BCBS [facility] HMO [id number] S [id number] FINANCIAL ASSISTANCE [id number] S [id number] FINANCIAL ASSISTANCE [id number] Other [id number] INSURANCE COVID-19 COVID Regina C OVID [id number] A MEDICARE [id number] SP [id number] BLUE CROSS MEDICARE ADVANTAGE [id number] Other [id number] EXCELLUS [place] MEDICARE HM [id number] 18 [id number] EXCELLUS BCBS B [id number] S [id number] BLUE CROSS BLUE SHIELD MCR - PROFEE [id number] 1 [id number] BLUE CROSS BLUE SHIELD MCR -OP [id number] 18 [id number] BLUE CROSS BLUE SHIELD MCR -IP [id number] 18 [id number] MEDICARE BLUE PPO 306 [id number] SP [id number] AETNA MEDICARE [id number] SP [id number] EXCELLUS BCBS MEDICARE Medicare [facility] ANSI-Medicare Part B [id number] ANSI-Medicare Part B [id number] ANSI-Medicare Part B [id number] ANS-Medicare Part B [id number] ANS-Medicare Part B [id number] ANS-Medicare Part B [id number] MEDICARE [id number] SP [id number] A AETNA MEDICARE O [id number] S MEBPZ 4JM MEDICARE [id number] SP [id number] A AETNA MEDICARE [id number] SP MEBPZ 4JM MEDICARE [id number] SP [id number] A MEDICAID UNAVAILABLE UNAVAILA BLE [place] Primary [id number] Self 0 [id number] AETNA MEDICARE O [id number] S [id number] AETNA MEDICARE [id number] SP [id number] [facility] [place] [id number] SP [id number] [employer] [facility] [place] -O/P [id number] 18 [id number] MEDICARE -O/P [id number] 18 [id number] MEDICARE -PHYSICIAN [id number] 18 [id number] [employer] -PHYSICIAN [id number] 18 [id number] MEDICARE BLUE PPO 306 [id number] SP [id number] Problems, Conditions, and Diagnoses Code Display Name Description Problem Type Effective Dates Data Source(s) Z91.11 Patient's noncompliance with dietary reg imen PATIENT'S NONCOMPLIANCE WITH DIETARY REGIMEN Diagnosis 05/04/2021 09:29:00 AM EDT [facility] Z91.19 Patient's noncompliance with other medic al treatment and regimen PATIENT'S NONCOMPLIANCE W OTH MEDICAL TREATMENT AND REGIMEN Diagnosis 05/04/2021 09:29:00 AM EDT [facility] E78.5 Hyperlipidemia, unspecified HYPERLIPIDEMIA, UNSPECIFIE D Diagnosis 05/04/2021 09:29:00 AM EDT [facility] I10 Essential (primary) hypertension ESSENTIAL (PRIMARY) H YPERTENSION Diagnosis 05/04/2021 09:29:00 AM EDT [facility] E11.65 Type 2 diabetes mellitus with hyperglyce kristyn TYPE 2 DIABETES MELLITUS WITH HYPERGLYCEMIA Diagnosis 05/04/2021 09:29:00 AM EDT [facility] G47.30 Sleep apnea, unspecified Sleep apnea, unspecified Diag nosis 02/07/2021 03:03:00 PM EDT [facility] I21.9 Acute myocardial infarction, unspecified Acute myocardial infarction, unspecified Diagnosis 02/07/2021 03:03:00 PM EDT [facility] N18.4 Chronic kidney disease, stage 4 (severe) Chronic kidney disease, stage 4 (severe) Diagnosis 02/07/2021 03:03:00 PM EDT [facility] I11.0 Hypertensive heart disease with heart fa ilure Hypertensive heart disease with heart failure Diagnosis 01/14/2021 11:59:00 AM [facility] R77.8 Other specified abnormalities of plasma proteins Other specified abnormalities of plasma proteins Diagnosis 01/14/2021 11:59:00 AM [facility] R94.31 Abnormal electrocardiogram [ECG] [EKG] A bnormal electrocardiogram (ECG) (EKG) Diagnosis 01/14/2021 11:59:00 AM [facility] R06.02 Shortness of breath Shortness of breath Diagnosis 0 01/14/2021 11:59:00 AM [facility] I50.9 Heart failure, unspecified Heart failure, unspecified Diagnosis 01/14/2021 11:59:00 AM [facility] R07.9 Chest pain, unspecified Chest pain, unspecified Diagno sis 01/14/2021 11:59:00 AM [facility] J96.01 Acute respiratory failure with hypoxia A cute respiratory failure with hypoxia Diagnosis 01/14/2021 11:59:00 AM EDT [facility] NSTEMI NSTEMI Diagnosis 01/14/2021 11:59:00 AM ED T [facility] E04.0 Nontoxic diffuse goiter NONTOXIC DIFFUSE GOITER Diagno sis 01/10/2021 01:07:00 PM EDT [facility] E03.9 Hypothyroidism, unspecified HYPOTHYROIDISM, UNSPECIFIE D Diagnosis 01/10/2021 01:07:00 PM [facility] 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) USE OF 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 Diagnosis 11/06/2020 02:38:00 PM [facility] Z91.14 Patient's other noncompliance with medic ation regimen PATIENT'S OTHER NONCOMPLIANCE WITH MEDICATION REGIMEN Diagnosis 11/06/2020 02:38:00 PM [facility] E11.319 Type 2 diabetes mellitus wit h unspecified diabetic retinopathy without macular edema TYPE 2 DIABETES W UNSP DIABETIC RTNOP W/O MACULAR EDEMA Diag nosis 11/06/2020 02:38:00 PM [facility] C95134 Pain in right foot Pain in right foot Diagnosis 09:36:00 AM [facility] L84 Corns and callosities Corns and callosities Diagnosis 08/22/2020 09:36:00 AM [facility] 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 Diagnosis 08/22/2020 09:36: 00 AM [facility] B351 Tinea unguium Tinea unguium Diagnosis 08/22/2020 09:36:00 AM [facility] M2040 Other hammer toe(s) (acquired), unspecif ied foot Other hammer toe(s) (acquired), unspecified foot Diagnosis 08/22/2020 09:36:00 AM [facility] [id number] Contusion of right lesser toe(s) with da mage to nail, initial encounter Contusion of right lesser toe(s) with damage to nail, initial encounter Diagnosis 08/22/2020 09:36:00 AM [facility] E1151 Type 2 diabetes mellitus wit h diabetic peripheral angiopathy without gangrene Type 2 diabetes mellitus with diabetic p eripheral angiopathy without gangrene Diagnosis 08/22/2020 09:36:00 AM [facility] C10967 Pain in left foot Pain in left foot Diagnosis 07/13/2020 02:34:00 PM [facility] S93258 Pressure ulcer of other site, stage 3 Pr essure ulcer of other site, stage 3 Diagnosis 07/13/2020 02:34:00 PM [facility] Z952 Presence of prosthetic heart valve Presence of p rosthetic heart valve Diagnosis 07/05/2020 03:34:00 PM [facility] Z951 Presence of aortocoronary bypass graft P resence of aortocoronary bypass graft Diagnosis 07/05/2020 03:34:00 PM [facility] Z7901 snf (current) use of anticoagulant s snf (current) use of anticoagulants Diagnosis 07/05/2020 03:34:00 PM [facility] Z794 snf (current) use of insulin termite exterminator (cu rrent) use of insulin Diagnosis 07/05/2020 03:34:00 PM [facility] V89765 Other retirement (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 therapy O ther 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 (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 therapy Diagnosis 07/05/2020 03:34:00 PM [facility] Z7982 snf (current) use of aspirin snf (cu rrent) use of aspirin Diagnosis 07/05/2020 03:34:00 PM [facility] E25191 Presence of other cardiac implants and g rafts Presence of other cardiac implants and grafts Diagnosis 07/05/2020 03:34:00 PM [facility] O47315 Personal history of pulmonary embolism P ersonal history of pulmonary embolism Diagnosis 07/05/2020 03:34:00 PM [facility] E1122 Type 2 diabetes mellitus with diabetic c hronic kidney disease Type 2 diabetes mellitus with diabetic chronic kidney disease Diagnosis 07/05/2020 03:34:00 PM [facility] N184 Chronic kidney disease, stage 4 (severe) Chronic kidney disease, stage 4 (severe) Diagnosis 07/05/2020 03:34:00 PM [facility] 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 and stage 1 through stage 4 chronic kidney disease, or unspecified chronic kidney disease Hypertensive heart and chronic kidney disease with heart failure and stage 1 through stage 4 chronic kidney disease, or unspecified chronic kidney disease Diagnosis 07/05/2020 03:34:00 PM [facility] J449 Chronic obstructive pulmonary disease, u nspecified Chronic obstructive pulmonary disease, unspecified Diagnosis 07/05/2020 03:34:00 PM [facility] E7800 Pure hypercholesterolemia, unspecified P ure hypercholesterolemia, unspecified Diagnosis 07/05/2020 03:34:00 PM [facility] I509 Heart failure, unspecified Heart failure, unspecified Diagnosis 07/05/2020 03:34:00 PM [facility] I4820 Chronic atrial fibrillation, unspecified Chronic atrial fibrillation, unspecified Diagnosis 07/05/2020 03:34:00 PM [facility] I2510 Atherosclerotic heart diseas e of [place] coronary artery without angina pectoris Atherosclerotic heart disease of [place] coronary artery without angina pectoris Diagnosis 07/05/2020 03:34:00 PM [facility] H13444 Cellulitis of right lower limb Cellulitis of right low er limb Diagnosis 07/05/2020 03:34:00 PM [facility] Y77360 Subacute osteomyelitis, right ankle and foot Subacute osteomyelitis, right ankle and foot Diagnosis 07/05/2020 03:34:00 PM [facility] R2241 Localized swelling, mass and lump, right lower limb Localized swelling, mass and lump, right lower limb Diagnosis 07/05/2020 03:34:00 PM [facility] [id number] Blister (nonthermal), left great toe, in itial encounter Blister (nonthermal), left great toe, initial encounter Diagnosis 2019 02:03:00 PM [facility] Y9289 Other specified places as the place of o ccurrence of the external cause Other specified places as the place of occurrence of the external cause Diagnosis 05/31/2020 04:25:00 PM [facility] [id number] Exposure to other specified factors, ini tial encounter Exposure to other specified factors, initial encounter Diagnosis 05/31/2020 04:25:00 PM [facility] E119 Type 2 diabetes mellitus without complic ations Type 2 diabetes mellitus without complications Diagnosis 05/31/2020 04:25:00 PM EDT [facility] I110 Hypertensive heart disease with heart fa ilure Hypertensive heart disease with heart failure Diagnosis 05/31/2020 04:25:00 PM [facility] [id number] Laceration without foreign b vivek of right index finger without damage to nail, initial encounter Laceration without foreign body of right index finger without damage to nail, initial encounter Diagnosis 05/31/2020 [id number] Unspecified open wound of ri ght index finger without damage to nail, initial encounter Unspecified open wound of right index fi nger without damage to nail, initial encounter Diagnosis 05/31/2020 04:25:00 PM [facility] Y92.010 Kitchen of single-family (pr ivate) house as the place of occurrence of the external cause KITCHEN OF SINGLE-FAMILY (PRIVATE) HOUSE PLACE Diagnosis 05/30/2020 11:46:00 AM [facility] W26.8XXA Contact with other sharp obj ect(s), not elsewhere classified, initial encounter CONTACT WITH OTHER SHARP OBJECT(S), NEC, INITIAL ENCOUNTER D iagnosis 05/30/2020 11:46:00 AM [facility] Z95.2 Presence of prosthetic heart valve PRESENCE OF P ROSTHETIC HEART VALVE Diagnosis 05/30/2020 11:46:00 AM [facility] Z95.1 Presence of aortocoronary bypass graft P RESENCE OF AORTOCORONARY BYPASS GRAFT Diagnosis 05/30/2020 11:46:00 AM [facility] normantal Z79.01 snf (current) use of anticoagulant s RETIREMENT (CURRENT) USE OF ANTICOAGULANTS Diagnosis 05/30/2020 11:46:00 AM [facility] I25.10 Atherosclerotic heart diseas e of [place] coronary artery without angina pectoris ATHSCL HEART DISEASE OF [place] CORONARY ARTERY W/O ANG PCTRS Diagnosis 05/30/2020 11:46:00 AM [facility] 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 RETIREMENT (CU RRENT) USE OF INSULIN Diagnosis 05/30/2020 11:46:00 AM [facility] E11.9 Type 2 diabetes mellitus without complic ations TYPE 2 DIABETES MELLITUS WITHOUT COMPLICATIONS Diagnosis 05/30/2020 11:46:00 AM [facility] 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 PERSONAL HISTORY OF METHICILLIN RESIS STAPH INFECTION Diagno sis 05/30/2020 11:46:00 AM [facility] S61.215A Laceration without foreign b vivek of left ring finger without damage to nail, initial encounter LACERATION W/O FB OF L RNG FNGR W/O DONYA GE TO NAIL, INIT Diagnosis 05/30/2020 11:46:00 AM [facility] viviana S61.012A Laceration without foreign b vivek of left thumb without damage to nail, initial encounter LACERATION W/O FB OF LEFT THUMB W/O DAMAGE TO NAIL, IN IT Diagnosis 05/30/2020 11:46:00 AM [facility] S61.213A Laceration without foreign b vivek of left middle finger without damage to nail, initial encounter LACERATION W/O FB OF L MID FINGER W/O DA MAGE TO NAIL, INIT Diagnosis 05/30/2020 11:46:00 AM [facility] H37118 Unspecified place in unspeci fied non-institutional (private) residence as the place of occurrence of the external cause Unspecified place in unspecified non-institutional (private) residence as the place of occurrence of the external cause Diagnosis 05/19/2020 07:31:00 PM [facility] Z23 Encounter for immunization Encounter for immunization Diagnosis 05/19/2020 07:31:00 PM [facility] [id number] Unspecified open wound of ri ght great toe without damage to nail, initial encounter Unspecified open wound of right great to e without damage to nail, initial encounter Diagnosis 05/19/2020 07:31:00 PM [facility] [id number] Unspecified injury of right foot, initia l encounter Unspecified injury of right foot, initial encounter Diagnosis 05/19/2020 07:31:00 PM [facility] L97.519 Ulcer of foot Ulcer of foot Problem 07/01/2021 12:00:00 AM EDT [facility] E11.621 Type 2 diabetes mellitus with ulcer Type 2 diabe rashawn mellitus with ulcer Problem 07/01/2021 12:00:00 AM EDT [facility] ([facility] I21.9 Acute myocardial infarction Acute myocardial infarctio n [id number] 02/07/2021 12:00:00 AM EDT [facility] I21.4 Non-ST elevation (NSTEMI) myocardial inf arction Non-ST elevation (NSTEMI) myocardial infarction [id number] 02/07/2021 12:00:00 AM EDT [facility] L84 Callosity Callosity Problem 11/01/2020 12:00:00 AM ES T [facility] B35.1 Onychomycosis Onychomycosis Problem 11/01/2020 12:00:00 AM EST [facility] ([facility] E11.42 Type 2 diabetes mellitus with diabetic p olyneuropathy Type 2 diabetes mellitus with diabetic polyneuropathy Problem 08/16/2020 12:00:00 AM EST [facility] [...] - 11/01/2020 12:00:00 AM EST [facility] ([facility] M86.171 Acute osteomyelitis of ankle and/or foot Acute osteomyelitis of ankle and/or foot Problem 08/16/2020 12:00:00 AM EST - 11/01/2020 12:00:00 AM EST [facility] ([facility] [id number] Pressure ulcer of right foot stage 3 Pre ssure ulcer of right foot stage 3 Problem 07/13/2020 12:00:00 AM EST [facility] ([facility]) [id number] Blister of toe without infection Blister of toe without infection Problem 05/22/2020 12:00:00 AM EDT [facility] ([facility]) Surgeries/Procedures Procedure Description Date Indications Data Source(s) OFFICE OUTPATIENT VISIT 25 MINUTES 07/09/2021 12:00:00 AM EST [facility] (George Minor MD) ECG ROUTINE ECG W/LEAST 12 LDS W/I&R 07/09/2021 12:00: 00 AM EST [facility] (George Minor MD) PARING/CUTTING BENIGN HYPERKERATOTIC LESION 2-4 2020 12:00:00 AM EDT [facility] DEBRIDEMENT NAIL ANY METHOD 6/> 06/22/2021 12:00:00 AM EDT [facility] DEBRIDEMENT OPEN WOUND 20 SQ CM/< 06/22/2021 12:00:00 AM EDT [facility] OFFICE OUTPATIENT VISIT 15 MINUTES 06/18/2021 12:00:00 AM EDT [facility] ([facility], ) ECG ROUTINE ECG W/LEAST 12 LDS W/I&R 05/10/2021 12:00: 00 AM EDT [facility] (George Minor MD) OFFICE OUTPATIENT VISIT 25 MINUTES 05/10/2021 12:00:00 AM EDT [facility] ([facility] MD) Hospital outpatient clinic visit for assessment and ma nagement of a patient Hospital Outpatient Clinic Visit 05/04/2021 12:00:00 AM EDT [facility] GLUC BLD GLUC MNTR DEV CLEARED FDA SPEC HOME USE GLUCOSE BLO OD TEST 05/04/2021 12:00:00 AM EDT [facility] OFFICE OUTPATIENT VISIT 15 MINUTES 04/30/2021 12:00:00 AM EDT [facility] ([facility], ) DEBRIDEMENT NAIL ANY METHOD /03/13/2021 12:00:00 AM EDT [facility] PARING/CUTTING BENIGN HYPERKERATOTIC LESION 1 03/13/20 12:00:00 AM EDT [facility] ([facility] ECG ROUTINE ECG W/LEAST 12 LDS W/I&R 02/26/2021 12:00: 00 AM EDT [facility] (George Minor MD) OFFICE OUTPATIENT VISIT 25 MINUTES 02/26/2021 12:00:00 AM EDT [facility] (George Minor MD) GLUC BLD GLUC MNTR DEV CLEARED FDA SPEC HOME USE <td>P OCT GLUCOSE</td><td>Routine</td><td>02/11/2021 1:55 PM EDT</td><td></td><td> </td> 02/11/2021 01:55:00 PM EDT [facility] GLUC BLD GLUC MNTR DEV CLEARED FDA SPEC HOME USE <td>P OCT GLUCOSE</td><td>Routine</td><td>02/11/2021 9:15 AM EDT</td><td></td><td> </td> 02/11/2021 09:15:00 AM EDT [facility] BLOOD COUNT COMPLETE AUTOMATED <td>CBC</td><td>Timed</ td><td>02/11/2021 6:29 AM EDT</td><td></td><td> </td> 02/11/2021 06:29:00 AM EDT [facility] BASIC METABOLIC PANEL CALCIUM TOTAL <td>BASIC METABOLI C PANEL</td><td>Timed</td><td>02/11/2021 6:29 AM EDT</td><td></td><td> </td> 02/11/2021 06:29:00 AM EDT [facility] GLUC BLD GLUC MNTR DEV CLEARED FDA SPEC HOME USE <td>P OCT GLUCOSE</td><td>Routine</td><td>02/10/2021 9:25 PM EDT</td><td></td><td> </td> 02/10/2021 09:25:00 PM EDT [facility] GLUC BLD GLUC MNTR DEV CLEARED FDA SPEC HOME USE <td>P OCT GLUCOSE</td><td>Routine</td><td>02/10/2021 6:57 PM EDT</td><td></td><td> </td> 02/10/2021 06:57:00 PM EDT [facility] BLOOD TYPING ABO <td>TYPE AND SCREEN</td><td> Routine</td><td>02/10/2021 1:44 PM EDT</td><td></td><td> </td> 02/10/2021 01:44:00 PM EDT [facility] GLUC BLD GLUC MNTR DEV CLEARED FDA SPEC HOME USE <td>P OCT GLUCOSE</td><td>Routine</td><td>02/10/2021 1:42 PM EDT</td><td></td><td> </td> 02/10/2021 01:42:00 PM EDT [facility] BLOOD OCCULT PEROXIDASE ACTV QUAL FECES 1 DETER <td>OC CULT BLOOD X 1, STOOL</td><td>Routine</td><td>02/10/2021 12:40 PM EDT</td><td></td><td> </td> 02/10/2021 12:40:00 PM EDT [facility] DUP-SCAN LXTR ART/ARTL BPGS UNI/LMTD STUDY <td>US COLO R DOPPLER LOWER EXTREMITY ARTERIES LIMITED RIGHT</td><td>Routine</td><td>02/10/2021 11:01 AM EDT</td><td></td><td> </td> 02/10/2021 11:01:55 AM EDT [facility] BLOOD COUNT COMPLETE AUTOMATED <td>CBC</td><td>STAT</t d><td>02/10/2021 9:44 AM EDT</td><td></td><td> </td> 02/10/2021 09:44:00 AM EDT [facility] BASIC METABOLIC PANEL CALCIUM TOTAL <td>BASIC METABOLI C PANEL</td><td>Timed</td><td>02/10/2021 9:44 AM EDT</td><td></td><td> </td> 02/10/2021 09:44:00 AM EDT [facility] GLUC BLD GLUC MNTR DEV CLEARED FDA SPEC HOME USE <td>P OCT GLUCOSE</td><td>Routine</td><td>02/10/2021 9:34 AM EDT</td><td></td><td> </td> 02/10/2021 09:34:00 AM EDT [facility] GLUC BLD GLUC MNTR DEV CLEARED FDA SPEC HOME USE <td>P OCT GLUCOSE</td><td>Routine</td><td>02/09/2021 10:16 PM EDT</td><td></td><td> </td> 02/09/2021 10:16:00 PM EDT [facility] GLUC BLD GLUC MNTR DEV CLEARED FDA SPEC HOME USE <td>P OCT GLUCOSE</td><td>Routine</td><td>02/09/2021 7:11 PM EDT</td><td></td><td> </td> 02/09/2021 07:11:00 PM EDT [facility] GLUC BLD GLUC MNTR DEV CLEARED FDA SPEC HOME USE <td>P OCT GLUCOSE</td><td>Routine</td><td>02/09/2021 3:38 PM EDT</td><td></td><td> </td> 02/09/2021 03:38:00 PM EDT [facility] GLUC BLD GLUC MNTR DEV CLEARED FDA SPEC HOME USE <td>P OCT GLUCOSE</td><td>Routine</td><td>02/09/2021 9:10 AM EDT</td><td></td><td> </td> 02/09/2021 09:10:00 AM EDT [facility] CMB <td>CMB</td><td>STAT</td><td >02/09/2021 7:24 AM EDT</td><td></td><td> </td> 02/09/2021 07:24:00 AM EDT [facility] BLOOD COUNT COMPLETE AUTOMATED <td>CBC</td><td>Timed</ td><td>02/09/2021 7:24 AM EDT</td><td></td><td> </td> 02/09/2021 07:24:00 AM EDT [facility] CREATINE KINASE MB FRACTION ONLY <td>CKMB</td><td>Rout ine</td><td>02/09/2021 7:24 AM EDT</td><td></td><td> </td> 02/09/2021 07:24:00 AM EDT [facility] BASIC METABOLIC PANEL CALCIUM TOTAL <td>BASIC METABOLI C PANEL</td><td>Timed</td><td>02/09/2021 7:24 AM EDT</td><td></td><td> </td> 02/09/2021 07:24:00 AM EDT [facility] ECG ROUTINE ECG W/LEAST 12 LDS TRCG ONLY W/O I&R <td>E CG 12- LEAD</td><td>Routine</td><td>02/09/2021 5:19 AM EDT</td><td></td><td></td> 02/09/2021 05:19:46 AM EDT [facility] BLOOD COUNT COMPLETE AUTOMATED <td>CBC</td><td>STAT</t d><td>02/08/2021 11:11 PM EDT</td><td></td><td> </td> 02/08/2021 11:11:00 PM EDT [facility] GLUC BLD GLUC MNTR DEV CLEARED FDA SPEC HOME USE <td>P OCT GLUCOSE</td><td>Routine</td><td>02/08/2021 9:03 PM EDT</td><td></td><td> </td> 02/08/2021 09:03:00 PM EDT [facility] GLUC BLD GLUC MNTR DEV CLEARED FDA SPEC HOME USE <td>P OCT GLUCOSE</td><td>Routine</td><td>02/08/2021 3:55 PM EDT</td><td></td><td> </td> 02/08/2021 03:55:00 PM EDT [facility] CARDIAC CATHETERIZATION <td>CARDIAC CATHETERIZATION</td><td>Routine</td><td>02/08/2021 2:25 PM EDT</td><td> Acute myocardial infarction</td><td> </td> 02/08/2021 02:25:25 PM EDT Acute myocardial infarction [facility] Acute myocardial infarction THROMBOPLASTIN TIME PARTIAL PLASMA/WHOLE BLOOD <td>APTT</td><td>STAT</td><td>02/08/2021 12:20 PM EDT</td><td></td><td> </td> 02/08/2021 12:20:00 PM EDT [facility] GLUC BLD GLUC MNTR DEV CLEARED FDA SPEC HOME USE <td>P OCT GLUCOSE</td><td>Routine</td><td>02/08/2021 11:19 AM EDT</td><td></td><td> </td> 02/08/2021 11:19:00 AM EDT [facility] GLUC BLD GLUC MNTR DEV CLEARED FDA SPEC HOME USE <td>P OCT GLUCOSE</td><td>Routine</td><td>02/08/2021 8:17 AM EDT</td><td></td><td> </td> 02/08/2021 08:17:00 AM EDT [facility] THROMBOPLASTIN TIME PARTIAL PLASMA/WHOLE BLOOD <td>APTT</td><td>STAT</td><td>02/08/2021 4:02 AM EDT</td><td></td><td> </td> 02/08/2021 04:02:00 AM EDT [facility] BLOOD COUNT COMPLETE AUTOMATED <td>CBC</td><td>Routine </td><td>02/08/2021 4:02 AM EDT</td><td></td><td> </td> 02/08/2021 04:02:00 AM EDT [facility] BASIC METABOLIC PANEL CALCIUM TOTAL <td>BASIC METABOLI C PANEL</td><td>Routine</td><td>02/08/2021 4:02 AM EDT</td><td></td><td> </td> 02/08/2021 04:02:00 AM EDT [facility] COVID/FLU AB/RSV PCR <td>COVID/FLU AB/RSV PCR</td ><td>STAT</td><td>02/07/2021 10:40 PM EDT</td><td></td><td> </td> 02/07/2021 10:40:00 PM EDT [facility] THROMBOPLASTIN TIME PARTIAL PLASMA/WHOLE BLOOD <td>APTT</td><td>Routine</td><td>02/07/2021 9:44 PM EDT</td><td></td><td> </td> 02/07/2021 09:44:00 PM EDT [facility] ECG ROUTINE ECG W/LEAST 12 LDS TRCG ONLY W/O I&R <td>E CG 12- LEAD</td><td>Routine</td><td>02/07/2021 8:37 PM EDT</td><td></td><td></td> 02/07/2021 08:37:43 PM EDT [facility] ECG ROUTINE ECG W/LEAST 12 LDS TRCG ONLY W/O I&R <td>E CG 12- LEAD</td><td>Routine</td><td>02/07/2021 3:29 PM EDT</td><td></td><td></td> 02/07/2021 03:29:10 PM EDT [facility] CMB <td>CMB</td><td>STAT</td><td >02/07/2021 3:26 PM EDT</td><td></td><td> </td> 02/07/2021 03:26:00 PM EDT [facility] NT PRO BNP <td>NT PRO BNP</td><td>Routi ne</td><td>02/07/2021 3:26 PM EDT</td><td></td><td> </td> 02/07/2021 03:26:00 PM EDT [facility] TROPONIN QUANTITATIVE <td>TROPONIN I</td><td>STAT< /td><td>02/07/2021 3:26 PM EDT</td><td></td><td> </td> 02/07/2021 03:26:00 PM EDT [facility] THROMBOPLASTIN TIME PARTIAL PLASMA/WHOLE BLOOD <td>APT T</td><td>Add- On</td><td>02/07/2021 3:26 PM EDT</td><td></td><td> </td> 02/07/2021 03:26:00 PM EDT [facility] BLOOD COUNT COMPLETE AUTOMATED <td>CBC</td><td>STAT</t d><td>02/07/2021 3:26 PM EDT</td><td></td><td> </td> 02/07/2021 03:26:00 PM EDT [facility] HEMOGLOBIN GLYCOSYLATED A1C <td>HEMOGLOBIN A1C</td><td >Add-On</td><td>02/07/2021 3:26 PM EDT</td><td></td><td> </td> 02/07/2021 03:26:00 PM EDT [facility] CREATINE KINASE MB FRACTION ONLY <td>CKMB</td><td>Add- On</td><td>02/07/2021 3:26 PM EDT</td><td></td><td> </td> 02/07/2021 03:26:00 PM EDT [facility] BASIC METABOLIC PANEL CALCIUM TOTAL <td>BASIC METABOLI C PANEL</td><td>STAT</td><td>02/07/2021 3:26 PM EDT</td><td></td><td> </td> 02/07/2021 03:26:00 PM EDT [facility] GLUC BLD GLUC MNTR DEV CLEARED FDA SPEC HOME USE <td>P OCT GLUCOSE</td><td>Routine</td><td>02/07/2021 3:14 PM EDT</td><td></td><td> </td> 02/07/2021 03:14:00 PM EDT [facility] OFFICE OUTPATIENT VISIT 25 MINUTES 02/05/2021 12:00:00 AM EDT [facility] (George Minor MD) OFFICE OUTPATIENT NEW 30 MINUTES 01/23/2021 12:00:00 A M EDT [facility] ([facility]) POCT GLUCOSE, DOCKED <td>POCT GLUCOSE, DOCKED</td ><td>Routine</td><td>01/19/2021 1:08 PM EDT</td><td></td><td> </td> 01/19/2021 01:08:00 PM [facility] POCT GLUCOSE, DOCKED <td>POCT GLUCOSE, DOCKED</td ><td>Routine</td><td>01/19/2021 9:08 AM EDT</td><td></td><td> </td> 01/19/2021 09:08:00 AM [facility] BLOOD COUNT COMPLETE AUTO&AUTO DIFRNTL WBC COUNT <td>C BC AND DIFFERENTIAL</td><td>Routine</td><td>01/19/2021 5:30 AM EDT</td><td></td><td> </td> 01/19/2021 05:30:00 AM [facility] BASIC METABOLIC PANEL CALCIUM TOTAL <td>BASIC METABOLI C PANEL</td><td>Routine</td><td>01/19/2021 5:30 AM EDT</td><td></td><td> </td> 01/19/2021 05:30:00 AM [facility] GLUCOSE QUANTITATIVE BLOOD XCPT REAGENT STRIP <td>POCT GLUCOSE, DOCKED</td><td>Routine</td><td>01/18/2021 10:31 PM EDT</td><td></td><td> </td> 01/18/2021 10:31:00 PM [facility] GLUCOSE QUANTITATIVE BLOOD XCPT REAGENT STRIP <td>POCT GLUCOSE, DOCKED</td><td>Routine</td><td>01/18/2021 5:36 PM EDT</td><td></td><td> </td> 01/18/2021 05:36:00 PM [facility] GLUCOSE QUANTITATIVE BLOOD XCPT REAGENT STRIP <td>POCT GLUCOSE, DOCKED</td><td>Routine</td><td>01/18/2021 12:28 PM EDT</td><td></td><td> </td> 01/18/2021 12:28:00 PM [facility] GLUCOSE QUANTITATIVE BLOOD XCPT REAGENT STRIP <td>POCT GLUCOSE, DOCKED</td><td>Routine</td><td>01/18/2021 8:42 AM EDT</td><td></td><td> </td> 01/18/2021 08:42:00 AM [facility] BLOOD COUNT COMPLETE AUTO&AUTO DIFRNTL WBC COUNT <td>C BC AND DIFFERENTIAL</td><td>Routine</td><td>01/18/2021 3:34 AM EDT</td><td></td><td> </td> 01/18/2021 03:34:00 AM [facility] PARATHORMONE <td>PTH, INTACT</td><td>Rout ine</td><td>01/18/2021 3:34 AM EDT</td><td></td><td> </td> 01/18/2021 03:34:00 AM [facility] BASIC METABOLIC PANEL CALCIUM TOTAL <td>BASIC METABOLI C PANEL</td><td>Routine</td><td>01/18/2021 3:34 AM EDT</td><td></td><td> </td> 01/18/2021 03:34:00 AM [facility] GLUCOSE QUANTITATIVE BLOOD XCPT REAGENT STRIP <td>POCT GLUCOSE, DOCKED</td><td>Routine</td><td>01/17/2021 8:24 PM EDT</td><td></td><td> </td> 01/17/2021 08:24:00 PM [facility] BLOOD COUNT COMPLETE AUTOMATED <td>CBC</td><td>Routine </td><td>01/17/2021 7:43 PM EDT</td><td></td><td> </td> 01/17/2021 07:43:00 PM [facility] GLUCOSE QUANTITATIVE BLOOD XCPT REAGENT STRIP <td>POCT GLUCOSE, DOCKED</td><td>Routine</td><td>01/17/2021 5:30 PM EDT</td><td></td><td> </td> 01/17/2021 05:30:00 PM [facility] GLUCOSE QUANTITATIVE BLOOD XCPT REAGENT STRIP <td>POCT GLUCOSE, DOCKED</td><td>Routine</td><td>01/17/2021 12:16 PM EDT</td><td></td><td> </td> 01/17/2021 12:16:00 PM [facility] GLUCOSE QUANTITATIVE BLOOD XCPT REAGENT STRIP <td>POCT GLUCOSE, DOCKED</td><td>Routine</td><td>01/17/2021 8:44 AM EDT</td><td></td><td> </td> 01/17/2021 08:44:00 AM [facility] BLOOD COUNT COMPLETE AUTOMATED <td>CBC AND DIFFERENTIAL</td><td>Routine</td><td>01/17/2021 6:00 AM EDT</td><td></td><td> </td> 01/17/2021 06:00:00 AM [facility] TROPONIN QUANTITATIVE <td>TROPONIN T</td><td>Timed </td><td>01/17/2021 6:00 AM EDT</td><td></td><td> </td> 01/17/2021 06:00:00 AM [facility] BASIC METABOLIC PANEL CALCIUM TOTAL <td>BASIC METABOLI C PANEL</td><td>Routine</td><td>01/17/2021 6:00 AM EDT</td><td></td><td> </td> 01/17/2021 06:00:00 AM [facility] BLOOD COUNT COMPLETE AUTO&AUTO DIFRNTL WBC COUNT <td>C BC AND DIFFERENTIAL</td><td>Routine</td><td>01/17/2021 2:07 AM EDT</td><td></td><td> </td> 01/17/2021 02:07:00 AM [facility] TROPONIN QUANTITATIVE <td>TROPONIN T</td><td>Timed </td><td>01/17/2021 2:07 AM EDT</td><td></td><td> </td> 01/17/2021 02:07:00 AM [facility] GLUCOSE QUANTITATIVE BLOOD XCPT REAGENT STRIP <td>POCT GLUCOSE, DOCKED</td><td>Routine</td><td>01/16/2021 8:19 PM EDT</td><td></td><td> </td> 01/16/2021 08:19:00 PM [facility] TROPONIN QUANTITATIVE <td>TROPONIN T</td><td>Timed </td><td>01/16/2021 7:52 PM EDT</td><td></td><td> </td> 01/16/2021 07:52:00 PM [facility] GLUCOSE QUANTITATIVE BLOOD XCPT REAGENT STRIP <td>POCT GLUCOSE, DOCKED</td><td>Routine</td><td>01/16/2021 5:32 PM EDT</td><td></td><td> </td> 01/16/2021 05:32:00 PM [facility] SEDIMENTATION RATE RBC AUTOMATED <td>SEDIMENTATION RAT E, AUTOMATED</td><td>Routine</td><td>01/16/2021 12:56 PM EDT</td><td></td><td> </td> 01/16/2021 12:56:00 PM [facility] BLOOD COUNT COMPLETE AUTO&AUTO DIFRNTL WBC COUNT <td>C BC AND DIFFERENTIAL</td><td>Routine</td><td>01/16/2021 12:56 PM EDT</td><td></td><td> </td> 01/16/2021 12:56:00 PM [facility] C-REACTIVE PROTEIN <td>INFLAMMATORY C-REACTIVE PROTEIN (CRP)</td><td>Routine</td><td>01/16/2021 12:56 PM EDT</td><td></td><td> </td> 01/16/2021 12:56:00 PM [facility] TROPONIN QUANTITATIVE <td>TROPONIN T</td><td>Routi ne</td><td>01/16/2021 12:56 PM EDT</td><td></td><td> </td> 01/16/2021 12:56:00 PM [facility] LACTATE <td>LACTIC ACID LEVEL, PLASM A</td><td>STAT</td><td>01/16/2021 12:56 PM EDT</td><td></td><td> </td> 01/16/2021 12:56:00 PM [facility] COMPREHENSIVE METABOLIC PANEL <td>COMPREHENSIVE METABO LIC PANEL</td><td>Routine</td><td>01/16/2021 12:56 PM EDT</td><td></td><td> </td> 01/16/2021 12:56:00 PM [facility] GLUCOSE QUANTITATIVE BLOOD XCPT REAGENT STRIP <td>POCT GLUCOSE, DOCKED</td><td>Routine</td><td>01/16/2021 12:10 PM EDT</td><td></td><td> </td> 01/16/2021 12:10:[address] [facility] [address] HEAD/BRAIN W/O CONTRAST MATERIAL <td>CT HEAD WITHOU T CONTRAST [id number]</td><td>STAT</td><td>01/16/2021 10:23 AM EDT</td><td></td><td> </td> 01/16/2021 10:23:15 AM [facility] GLUCOSE QUANTITATIVE BLOOD XCPT REAGENT STRIP <td>POCT GLUCOSE, DOCKED</td><td>Routine</td><td>01/16/2021 8:27 AM EDT</td><td></td><td> </td> 01/16/2021 08:27:00 AM [facility] EKG 12-LEAD - CMAXX REPORT <td>EKG 12-LEAD - CMAXX REPORT</td><td></td><td>01/16/2021 6:47 AM EDT</td><td></td><td></td> 01/16/2021 06:47:03 AM [facility] EKG 12-LEAD - CMAXX REPORT <td>EKG 12-LEAD - CMAXX REPORT</td><td></td><td>01/16/2021 6:47 AM EDT</td><td></td><td></td> 01/16/2021 06:47:03 AM [facility] EKG 12-LEAD <td>EKG 12-LEAD</td><td>Rout ine</td><td>01/16/2021 6:47 AM EDT</td><td></td><td> </td> 01/16/2021 06:47:03 AM [facility] BLOOD COUNT RETICULOCYTE AUTOMATED <td>RETICULOCYTES</td><td>Routine</td><td>01/16/2021 6:18 AM EDT</td><td></td><td> </td> 01/16/2021 06:18:00 AM [facility] BLOOD COUNT COMPLETE AUTO&AUTO DIFRNTL WBC COUNT <td>C BC AND DIFFERENTIAL</td><td>Routine</td><td>01/16/2021 6:18 AM EDT</td><td></td><td> </td> 01/16/2021 06:18:00 AM [facility] TROPONIN QUANTITATIVE <td>TROPONIN T</td><td>Routi ne</td><td>01/16/2021 6:18 AM EDT</td><td></td><td> </td> 01/16/2021 06:18:00 AM [facility] NEUTROPHIL CYTO AB COMMENT <td>NEUTROPHIL CYTO AB COMMENT</td><td>Routine</td><td>01/16/2021 12:49 AM EDT</td><td></td><td> </td> 01/16/2021 12:49:00 AM [facility] IAAD EIA HIV-1 AG W/HIV-1&HIV-2 ANTBDY SINGLE <td>HIV AG AB COMBO SCREEN</td><td>Routine</td><td>01/16/2021 12:49 AM EDT</td><td></td><td> </td> 01/16/2021 12:49:00 AM [facility] FLUORESCENT NONNFCT AGT ANTB TITER EA ANTIBODY <td>SARAN TROPHIL CYTOPLASMIC ANTIBODY</td><td>Routine</td><td>01/16/2021 12:49 AM EDT</td><td></td><td> </td> 01/16/2021 12:49:00 AM [facility] HEPATITIS B CORE ANTIBODY HBCAB IGM ANTIBODY <td>HEPAT ITIS B CORE ANTIBODY, IGM</td><td>Routine</td><td>01/16/2021 12:49 AM EDT</td><td></td><td> </td> 01/16/2021 12:49:00 AM [facility] HEPATITIS B CORE ANTIBODY HBCAB TOTAL <td>HEPATITIS B CORE ANTIBODY, TOTAL</td><td>Routine</td><td>01/16/2021 12:49 AM EDT</td><td></td><td> </td> 01/16/2021 12:49:00 AM [facility] IADNA HEPATITIS C QUANTIFICATION <td>HEPATITIS C RNA, QUANTITATIVE, PCR</td><td>Routine</td><td>01/16/2021 12:49 AM EDT</td><td></td><td> </td> 01/16/2021 12:49:00 AM [facility] HEPATITIS B SURF ANTIBODY HBSAB <td>HEPATITIS B SURFAC E ANTIBODY</td><td>Routine</td><td>01/16/2021 12:49 AM EDT</td><td></td><td> </td> 01/16/2021 12:49:00 AM [facility] IAAD EIA HEPATITIS B SURFACE ANTIGEN <td>HEPATITIS B S URFACE ANTIGEN</td><td>Routine</td><td>01/16/2021 12:49 AM EDT</td><td></td><td> </td> 01/16/2021 12:49:00 AM [facility] TROPONIN QUANTITATIVE <td>TROPONIN T</td><td>Routi ne</td><td>01/16/2021 12:49 AM EDT</td><td></td><td> </td> 01/16/2021 12:49:00 AM [facility] PROTEIN XCPT REFRACTOMETRY SERUM PLASMA/WHL BLD <td>KS OTEIN ELECTROPHORESIS WITH SERUM TOTAL PROTEIN</td><td>Routine</td><td>01/16/2021 12:49 AM EDT</td><td></td><td> </td> 01/16/2021 12:49:00 AM [facility] FOLIC ACID SERUM <td>FOLATE</td><td>Routine</ td><td>01/16/2021 12:49 AM EDT</td><td></td><td> </td> 01/16/2021 12:49:00 AM [facility] UREA NITROGEN URINE <td>UREA NITROGEN, URINE</td ><td>Routine</td><td>01/16/2021 12:38 AM EDT</td><td></td><td> </td> 01/16/2021 12:38:00 AM [facility] SODIUM URINE <td>SODIUM, URINE, RANDOM</t d><td>Routine</td><td>01/16/2021 12:38 AM EDT</td><td></td><td> </td> 01/16/2021 12:38:00 AM [facility] PROTEIN TOTAL XCPT REFRACTOMETRY URINE <td>PROTEIN ASAD CTROPHORESIS, URINE</td><td>Routine</td><td>01/16/2021 12:38 AM EDT</td><td></td><td> </td> 01/16/2021 12:38:00 AM [facility] OSMOLALITY URINE <td>OSMOLALITY, URINE</td><t d>Routine</td><td>01/16/2021 12:38 AM EDT</td><td></td><td> </td> 01/16/2021 12:38:00 AM [facility] CREATININE OTHER SOURCE <td>CREATININE, URINE, RANDOM</td><td>Routine</td><td>01/16/2021 12:38 AM EDT</td><td></td><td> </td> 01/16/2021 12:38:00 AM [facility] CHLORIDE URINE <td>CHLORIDE, URINE, RANDOM< /td><td>Routine</td><td>01/16/2021 12:38 AM EDT</td><td></td><td> </td> 01/16/2021 12:38:00 AM [facility] GLUCOSE QUANTITATIVE BLOOD XCPT REAGENT STRIP <td>POCT GLUCOSE, DOCKED</td><td>Routine</td><td>01/15/2021 9:29 PM EDT</td><td></td><td> </td> 01/15/2021 09:29:00 PM [facility] US RETROPERITONEAL REAL TIME W/IMAGE COMPLETE <td>US R ENAL OR AORTA COMPLETE [id number]</td><td>Routine</td><td>01/15/2021 9:25 PM EDT</td><td></td><td> </td> 01/15/2021 09:25:06 PM [facility] IRON <td>TOTAL FE BINDING CAPACIT Y</td><td>Routine</td><td>01/15/2021 6:13 PM EDT</td><td></td><td> </td> 01/15/2021 06:13:00 PM [facility] COMPLEMENT ANTIGEN EACH COMPONENT <td>C3 COMPLEMENT</td><td>Routine</td><td>01/15/2021 6:13 PM EDT</td><td></td><td> </td> 01/15/2021 06:13:00 PM [facility] COMPLEMENT ANTIGEN EACH COMPONENT <td>C4 COMPLEMENT</td><td>Routine</td><td>01/15/2021 6:13 PM EDT</td><td></td><td> </td> 01/15/2021 06:13:00 PM [facility] TROPONIN QUANTITATIVE <td>TROPONIN T</td><td>Timed </td><td>01/15/2021 6:13 PM EDT</td><td></td><td> </td> 01/15/2021 06:13:00 PM [facility] FERRITIN <td>FERRITIN LEVEL</td><td>R outine</td><td>01/15/2021 6:13 PM EDT</td><td></td><td> </td> 01/15/2021 06:13:00 PM [facility] CYANOCOBALAMIN VITAMIN B-12 <td>VITAMIN B12</td><td>Ro utine</td><td>01/15/2021 6:13 PM EDT</td><td></td><td> </td> 01/15/2021 06:13:00 PM [facility] GLUCOSE QUANTITATIVE BLOOD XCPT REAGENT STRIP <td>POCT GLUCOSE, DOCKED</td><td>Routine</td><td>01/15/2021 5:18 PM EDT</td><td></td><td> </td> 01/15/2021 05:18:00 PM [facility] ECHO TTHRC R-T 2D W/WOM-MODE COMPL SPEC&COLR DOP <td>E CHOCARDIOGRAM 2D COMPLETE</td><td>Routine</td><td>01/15/2021 1:48 PM EDT</td><td></td><td> </td> 01/15/2021 01:48:48 PM [facility] GLUCOSE QUANTITATIVE BLOOD XCPT REAGENT STRIP <td>POCT GLUCOSE, DOCKED</td><td>Routine</td><td>01/15/2021 12:40 PM EDT</td><td></td><td> </td> 01/15/2021 12:40:00 PM [facility] TROPONIN QUANTITATIVE <td>TROPONIN T</td><td>Timed </td><td>01/15/2021 11:44 AM EDT</td><td></td><td> </td> 01/15/2021 11:44:00 AM [facility] GLUCOSE QUANTITATIVE BLOOD XCPT REAGENT STRIP <td>POCT GLUCOSE, DOCKED</td><td>Routine</td><td>01/15/2021 8:03 AM EDT</td><td></td><td> </td> 01/15/2021 08:03:00 AM [facility] EKG 12-LEAD - CMAXX REPORT <td>EKG 12-LEAD - CMAXX REPORT</td><td></td><td>01/15/2021 5:13 AM EDT</td><td></td><td></td> 01/15/2021 05:13:46 AM [facility] EKG 12-LEAD - CMAXX REPORT <td>EKG 12-LEAD - CMAXX REPORT</td><td></td><td>01/15/2021 5:13 AM EDT</td><td></td><td></td> 01/15/2021 05:13:46 AM [facility] EKG 12-LEAD <td>EKG 12-LEAD</td><td>Rout ine</td><td>01/15/2021 5:13 AM EDT</td><td></td><td> </td> 01/15/2021 05:13:46 AM [facility] BLOOD COUNT COMPLETE AUTO&AUTO DIFRNTL WBC COUNT <td>C BC AND DIFFERENTIAL</td><td>Routine</td><td>01/15/2021 3:58 AM EDT</td><td></td><td> </td> 01/15/2021 03:58:00 AM [facility] TROPONIN QUANTITATIVE <td>TROPONIN T</td><td>Timed </td><td>01/15/2021 3:58 AM EDT</td><td></td><td> </td> 01/15/2021 03:58:00 AM [facility] PHOSPHORUS INORGANIC <td>PHOSPHORUS LEVEL</td><td >Routine</td><td>01/15/2021 3:58 AM EDT</td><td></td><td> </td> 01/15/2021 03:58:00 AM [facility] MAGNESIUM <td>MAGNESIUM LEVEL</td><td> Routine</td><td>01/15/2021 3:58 AM EDT</td><td></td><td> </td> 01/15/2021 03:58:00 AM [facility] BASIC METABOLIC PANEL CALCIUM TOTAL <td>BASIC METABOLI C PANEL</td><td>Routine</td><td>01/15/2021 3:58 AM EDT</td><td></td><td> </td> 01/15/2021 03:58:00 AM [facility] EKG 12-LEAD - CMAXX REPORT <td>EKG 12-LEAD - CMAXX REPORT</td><td></td><td>01/14/2021 11:30 PM EDT</td><td></td><td></td> 01/14/2021 11:30:59 PM [facility] EKG 12-LEAD - CMAXX REPORT <td>EKG 12-LEAD - CMAXX REPORT</td><td></td><td>01/14/2021 11:30 PM EDT</td><td></td><td></td> 01/14/2021 11:30:59 PM [facility] EKG 12-LEAD <td>EKG 12-LEAD</td><td>Rout ine</td><td>01/14/2021 11:30 PM EDT</td><td></td><td> </td> 01/14/2021 11:30:59 PM [facility] GLUCOSE QUANTITATIVE BLOOD XCPT REAGENT STRIP <td>POCT GLUCOSE, DOCKED</td><td>Routine</td><td>01/14/2021 9:55 PM EDT</td><td></td><td> </td> 01/14/2021 09:55:00 PM [facility] CULTURE BACTERIAL BLOOD AEROBIC W/ID ISOLATES <td>BLOO D CULTURE</td><td>Routine</td><td>01/14/2021 9:48 PM EDT</td><td></td><td> </td> 01/14/2021 09:48:00 PM [facility] TROPONIN QUANTITATIVE <td>TROPONIN T</td><td>Timed </td><td>01/14/2021 9:48 PM EDT</td><td></td><td> </td> 01/14/2021 09:48:00 PM [facility] URNLS DIP STICK/TABLET REAGENT AUTO MICROSCOPY <td>URI NALYSIS WITH REFLEX URINE CULTURE</td><td>Routine</td><td>01/14/2021 9:27 PM EDT</td><td></td><td> </td> 01/14/2021 09:27:00 PM [facility] CULTURE BACTERIAL BLOOD AEROBIC W/ID ISOLATES <td>BLOO D CULTURE</td><td>Routine</td><td>01/14/2021 7:47 PM EDT</td><td></td><td> </td> 01/14/2021 07:47:00 PM [facility] GLUCOSE QUANTITATIVE BLOOD XCPT REAGENT STRIP <td>POCT GLUCOSE, DOCKED</td><td>Routine</td><td>01/14/2021 6:22 PM EDT</td><td></td><td> </td> 01/14/2021 06:22:00 PM [facility] HEPATITIS C ANTIBODY <td>HEPATITIS C ANTIBODY</td ><td>Routine</td><td>01/14/2021 5:55 PM EDT</td><td></td><td> </td> 01/14/2021 05:55:00 PM [facility] ANTINUCLEAR ANTIBODIES AMBIKA <td>AMBIKA</td><td>Routine</td ><td>01/14/2021 5:55 PM EDT</td><td></td><td> </td> 01/14/2021 05:55:00 PM [facility] TROPONIN QUANTITATIVE <td>TROPONIN T</td><td>Timed </td><td>01/14/2021 5:55 PM EDT</td><td></td><td> </td> 01/14/2021 05:55:00 PM [facility] PROTHROMBIN TIME <td>PROTIME INR</td><td>Rout ine</td><td>01/14/2021 1:28 PM EDT</td><td></td><td> </td> 01/14/2021 01:28:00 PM [facility] BLOOD TYPING ABO <td>TYPE AND SCREEN</td><td> STAT</td><td>01/14/2021 1:23 PM EDT</td><td></td><td> </td> 01/14/2021 01:23:00 PM [facility] XR CHEST FRONTAL ONLY [id number] <td>XR CHEST FRONTAL ONLY [id number]</td><td>STAT</td><td>01/14/2021 1:07 PM EDT</td><td></td><td> </td> 01/14/2021 01:07:00 PM [facility] TROPONIN QUANTITATIVE <td>POCT ISTAT TROPONIN</td> <td>Routine</td><td>01/14/2021 12:36 PM EDT</td><td></td><td> </td> 01/14/2021 12:36:00 PM [facility] BLOOD GASES ANY COMBINATION PH PCO2 PO2 CO2 HCO3 <td>P OCT ISTAT VBG/LAC</td><td>Routine</td><td>01/14/2021 12:35 PM EDT</td><td></td><td> </td> 01/14/2021 12:35:00 PM [facility] CONFIRMATORY TYPE <td>CONFIRMATORY TYPE</td><t d>Routine</td><td>01/14/2021 12:33 PM EDT</td><td></td><td> </td> 01/14/2021 12:33:00 PM [facility] PROCALCITONIN (PCT) <td>PROCALCITONIN</td><td>Ro utine</td><td>01/14/2021 12:33 PM EDT</td><td></td><td> </td> 01/14/2021 12:33:00 PM [facility] NATRIURETIC PEPTIDE <td>PROBNP</td><td>Routine</ td><td>01/14/2021 12:33 PM EDT</td><td></td><td> </td> 01/14/2021 12:33:00 PM [facility] BLOOD COUNT COMPLETE AUTO&AUTO DIFRNTL WBC COUNT <td>C BC AND DIFFERENTIAL</td><td>Routine</td><td>01/14/2021 12:33 PM EDT</td><td></td><td> </td> 01/14/2021 12:33:00 PM [facility] TROPONIN QUANTITATIVE <td>TROPONIN T</td><td>STAT< /td><td>01/14/2021 12:33 PM EDT</td><td></td><td> </td> 01/14/2021 12:33:00 PM [facility] MAGNESIUM <td>MAGNESIUM LEVEL</td><td> STAT</td><td>01/14/2021 12:33 PM EDT</td><td></td><td> </td> 01/14/2021 12:33:00 PM [facility] LIPASE <td>LIPASE LEVEL</td><td>STA T</td><td>01/14/2021 12:33 PM EDT</td><td></td><td> </td> 01/14/2021 12:33:00 PM [facility] HEMOGLOBIN GLYCOSYLATED A1C <td>HEMOGLOBIN A1C</td><td>Routine</td><td>01/14/2021 12:33 PM EDT</td><td></td><td> </td> 01/14/2021 12:33:00 PM [facility] COMPREHENSIVE METABOLIC PANEL <td>COMPREHENSIVE METABO LIC PANEL</td><td>STAT</td><td>01/14/2021 12:33 PM EDT</td><td></td><td> </td> 01/14/2021 12:33:00 PM [facility] EKG 12 LEAD (UNSOLICITED COMPUTER ORDER) <td>EKG 12 LE AD (UNSOLICITED COMPUTER ORDER)</td><td>Routine</td><td>01/14/2021 12:09 PM EDT</td><td></td><td></td> 01/14/2021 12:09:21 PM [facility] EKG 12-LEAD - CMAXX REPORT <td>EKG 12-LEAD - CMAXX REPORT</td><td></td><td>01/14/2021 12:09 PM EDT</td><td></td><td></td> 01/14/2021 12:09:21 PM [facility] EKG 12-LEAD - CMAXX REPORT <td>EKG 12-LEAD - CMAXX REPORT</td><td></td><td>01/14/2021 12:09 PM EDT</td><td></td><td></td> 01/14/2021 12:09:21 PM [facility] EKG 12-LEAD <td>EKG 12-LEAD</td><td>STAT </td><td>01/14/2021 12:09 PM EDT</td><td></td><td> </td> 01/14/2021 12:09:21 PM [facility] EKG 12-LEAD - CMAXX REPORT <td>EKG 12-LEAD - CMAXX REPORT</td><td></td><td>01/14/2021 12:09 PM EDT</td><td></td><td></td> 01/14/2021 12:09:00 PM [facility] US SOFT TISSUE HEAD & NECK REAL TIME IMGE DOCMTN US EXAM OF HEAD AND NECK 01/10/2021 12:00:00 AM [facility] PARING/CUTTING BENIGN HYPERKERATOTIC LESION 2-4 2020 12:00:00 AM EDT [facility] DEBRIDEMENT NAIL ANY METHOD 01/02/2021 12:00:00 AM EDT [facility] ([facility] Av Fistula Artery-Vein 12/15/2020 12:00:00 AM EDT [facility] ([facility], ) ECG ROUTINE ECG W/LEAST 12 LDS W/I&R 12/04/2020 12:00: 00 AM EDT [facility] (George Minor MD) ECHO TTHRC R-T 2D W/WOM-MODE COMPL SPEC&COLR DOP 12/04 12:00:00 AM EDT [facility] (George Minor MD) OFFICE OUTPATIENT VISIT 25 MINUTES 12/04/2020 12:00:00 AM EDT [facility] (George Minor MD) OFFICE OUTPATIENT VISIT 15 MINUTES 11/09/2020 12:00:00 AM EST [facility] ([facility], ) PARING/CUTTING BENIGN HYPERKERATOTIC LESION 1 10/27/19 12:00:00 AM EST [facility] ([facility] DEBRIDEMENT NAIL ANY METHOD 10/27/2020 12:00:00 AM EST [facility] ([facility] ECG ROUTINE ECG W/LEAST 12 LDS W/I&R 10/05/2020 12:00: 00 AM EST [facility] (George Minor MD) COLLECTION VENOUS BLOOD VENIPUNCTURE ROUTINE VENIPUNCTURE 12:00:00 AM [facility] HEMOGLOBIN GLYCOSYLATED A1C GLYCOSYLATED HEMOGLOBIN TEST 12:00:00 AM [facility] ALBUMIN URINE MICROALBUMIN QUANTIATIVE UR ALBUMIN QUANTITATI VE 09/20/2020 12:00:00 AM [facility] CREATININE OTHER SOURCE ASSAY OF URINE CREATININE 09/20/2020 12:00: 00 AM [facility] BASIC METABOLIC PANEL CALCIUM TOTAL METABOLIC PANEL TOTAL CA 09/20/2020 12:00:00 AM [facility] Amputation Toe MP JT 09/10/2020 12:00:00 AM EST [facility] ([facility] ECG ROUTINE ECG W/LEAST 12 LDS W/I&R 08/03/2020 12:00: 00 AM EST [facility] ([facility] Minor [facility]) Amputation Toe MP JT 07/21/2020 12:00:00 AM EST [facility] ([facility] Aortography Abdominal & Bilat Iliofemoral LWR Extremity Cath 06/30/2020 12:00:00 AM EDT [facility] ([facility], ) DEBRIDEMENT SUBCUTANEOUS TISSUE 20 SQ CM/< 06/30/2020 12:00:00 AM EDT [facility] ([facility] DEBRIDEMENT SUBCUTANEOUS TISSUE 20 SQ CM/< 06/23/2020 12:00:00 AM EDT [facility] ([facility] SIMPLE REPAIR SCALP/NECK/AX/GENIT/TRUNK 2.5CM/< RPR S/N/AX/G EN/TRNK 2.5CM/< 05/30/2020 12:00:00 AM [facility] EMERGENCY DEPARTMENT VISIT LOW/MODER SEVERITY EMERGENCY DEPT VISIT 05/30/2020 12:00:00 AM [facility] Pare Hyperkeratotic Lesion, 2-4 05/22/2020 12:00:00 AM EDT [facility] ([facility]) Trim Nondystrophic Nails 05/22/2020 12:00:00 AM EDT [facility] ([facility]) Debridement Nails Any Method 1-5 05/22/2020 12:00:00 A M EDT [facility] ([facility]) Results ID Date Data Source [id number] 06/29/2021 04:56:00 PM EDT [facility] Name Value Range Interpretation Code Description Data Tyra rce(s) Supporting Document(s) SARS coronavirus 2 RNA [Presence] in Res piratory specimen by ALLAN with probe detection NEGATIVE [facility] This lab was ordered by [facility] a nd reported by [facility]. ID Date Data Source [id number] 03/21/2021 12:20:00 PM EDT [facility] Name Value Range Interpretation Code Description Data Tyra rce(s) Supporting Document(s) Sodium 142 mmol/L 136-145 Normal (applies to non-numeric resul ts) [facility] Potassium 3.5-5.1 Normal (applies to non-numeric resul ts) [facility] Chloride 106 mmol/L 98-107 Normal (applies to non-numeric resul ts) [facility] Carbon Dioxide CO2 21-32 Normal (applies to non-numer ic results) [facility] Anion Gap 5.0-16.0 Normal (applies to non-numeric resul ts) [facility] BUN 69 mg/dL 7-[address] [facility] [address] STREETER read back critical information 03/21/21 1219 LAB.ADRIANNA Creatinine,Serum 0.7-1.2 Above high normal [facility] GFR 24 mL/min >60 Below low normal [facility] spital Glucose Level 188 mg/dL 60-99 Above high normal [facility] Reference range is only applicable when patient is fasting Note the following drug interference: Sulfasalazine Sulfapyridine Can see falsely depressed Can see falsely elevated result with up to 17% results with up to 11% decrease in measurement increase in measurement Recommend patients be collected for this test prior to administration of either drug. Calcium 8.5-10.1 Normal (applies to non-numeric resul ts) [facility] ID Date Data Source [id number] 03/21/2021 11:08:00 AM EDT [facility] Name Value Range Interpretation Code Description Data Tyra rce(s) Supporting Document(s) Hemoglobin A1c Above high normal [facility] Reference Range Normal: < 5.7% Pr ediabetes: 5.7-6.4% Diabetes: > 6.5% Estimated Avg Glucose 183 mg/dL 126-240 Normal (applies to non-numeric results) [facility] ID Date Data Source [id number] 03/21/2021 09:01:00 AM EDT [facility] Name Value Range Interpretation Code Description Data Tyra rce(s) Supporting Document(s) White Blood Count 3.5-10.5 Normal (applies to non-numeri c results) [facility] Red Blood Count 3.90-5.00 Below low normal [facility] Hemoglobin 12.0-15.5 Below low normal [facility] ospital Hematocrit 34.9-44.5 Below low normal [facility] Mean Corpuscular Volume 81.2-95.1 Normal (applies to non- numeric results) [facility] Mean Corpuscular Hgb 25.6-32.2 Normal (applies to non-num [place] results) [facility] Mean Corpuscular Hgb Conc 32.0-36.0 Normal (applies to no n-numeric results) [facility] Red Cell Distribution Width 11.9-15.5 Normal (appli es to non-numeric results) [facility] Platelet Count 172 x10 3/uL 150-450 Normal (applies to non-numeric results) [facility] Mean Platelet Volume 9.4-12.4 Normal (applies to non-num [place] results) [facility] Neutrophils% (Auto) 31.0-71.0 Normal (applies to non-nume yun results) [facility] Lymphocytes% (Auto) 20.0-55.0 Normal (applies to non-nume yun results) [facility] Monocytes% (Auto) 4.0-12.0 Normal (applies to non-numeri c results) [facility] Eosinophils% (Auto) 1.0-8.0 Normal (applies to non-nume yun results) [facility] Basophils% (Auto) 0.0-2.0 Normal (applies to non-numeri c results) [facility] Immature Granulocytes% (Auto) 0.0-2.0 Normal (juanita lies to non-numeric results) [facility] Neutrophils# (Auto) 1.50-6.20 Normal (applies to non-nume yun results) [facility] Lymphocytes# (Auto) 1.20-4.00 Normal (applies to non-nume yun results) [facility] Monocytes# (Auto) 0.00-0.90 Normal (applies to non-numeri c results) [facility] Eosinophils# (Auto) 0.00-0.50 Normal (applies to non-nume yun results) [facility] Basophils# (Auto) 0.00-0.20 Normal (applies to non-numeri c results) [facility] Immature Granulocytes# (Auto) 0.00-7.00 No rmal (applies to non-numeric results) [facility] ID Date Data Source [id number] 02/14/2021 02:42:00 PM EDT [facility] Name Value Range Interpretation Code Description Data Tyra rce(s) Supporting Document(s) Microscopic observation [Identifier] in Unspecified specimen by Non- gynecological cytology method Laboratory test result [facility] SPECIMEN: FNA Left thyroid Specimen received in Cytolyt (clear) SPECIMEN ADEQUACY: Satisfactory for evaluation CATEGORIZATION: Benign DESCRIPTIONS: Groups of follicular cells exhibitng hurthle cell changes noted. The background consists of scattered lymphocytes and rare macrophages. COMMENTS: 02/15/2021 - 0910 Signed OC RIOS(ASCP) 02/15/2021 0911 (Prelim) Signed DORIAN TAI MD 02/15/2021 1053 ID Date Data Source [id number] 02/14/2021 02:41:00 PM EDT [facility] Name Value Range Interpretation Code Description Data Tyra rce(s) Supporting Document(s) Microscopic observation [Identifier] in Unspecified specimen by Non- gynecological cytology method Laboratory test result [facility] ([facility], ) SPECIMEN: FNA Right thyroid Specimen received in Cytolyt (clear) SPECIMEN ADEQUACY: Satisfactory for evaluation CATEGORIZATION: Benign DESCRIPTIONS: Few scattered groups of follicular cells noted in a background of scattered lymphocytes and debris. COMMENTS: 02/15/2021 - [address](ASCP) 02/15/2021918 (Prelim) Signed DORIAN TAI MD 02/15/2021 1053 ID Date Data Source [id number] 02/13/2021 12:07:25 PM EDT [facility] NT INFORMATIONPatient MRN Name Date of Age Gend*PT [id number] Oxana Clancy 1950 70 years F IPPT Location Admission Date/Time Visit ID Attending [id number] 02/07/21 1503 --- --- EPI ID CSN Admitting Provider [id number] ---Attestation signed by Jo Molina MD at 02/13/2021 12:07 PMSignature: LEA Bensonate: February 13, 2021Time: 12:07 PM --Cardiology Discharge SummaryPatient Name: Oxana Escamilla Julieth of : 1950 Age 70 yearsPrimary Physician: ANDRE STREETER DO PCP [id number] Date: 02/07/2021 Discharge Date: 02/11/2021[facility] be [facility] from [facility] to [facility] Diagnoses:Principal Problem: Non-ST elevation (NSTEMI) myocardial [...] needed for painTrelegy Ellipta 100-62.5-25 MCGGeneric drug: Zuldmtvcawc-Eostbmmby-Zxpwav Inhale 1 puff dailyXarelto 15 MG TabsGeneric drug: rivaroxabanNotes to patient: Resume Friday02/14/21 Take 15 mg by mouth dailySTOP taking these medicationsmetolazone 2.5 MG tabletCommonly known as: ZAROXOLYNWhere to Get Your MedicationsThese medications were sent to [facility] [address] [place] [address] [id number], [facility] [address] amLODIPine 5 MG tablet aspirin 81 MG EC tablet carvedilol 12.5 MG tablet clopidogrel 75 MG tablet nitroglycerin 0.4 MG SL tabletFollow Up Instructions:[facility]. [facility] Course:This is a 70-year-old female with a PMH including PAD s/p angioplasty, aorticstenosis s/p bioprosthetic #23 Magna AVR, COPD O2 dependent, PATRICK,hyperlipidemia, hypertension, DM 2, PAF,CKD stage III and CAD status post CABGx2 (ABAD to the LAD and vein graft of the ABAD to the PDA) and ALEX to the CX.She presented to [facility]. She ruled in for a NSTEMI. Troponinelevated to 16.7.Initial EKG 02/06 revealed rapid atrial fibrillation with marked ST depressions inthe inferior and lateral leads with a ventricular rate 114Transferred to H for cardiac catheterization . Critical in-stent [...] 107* 117*Results from last 7 daysLab Units [id number] I ng/mL 15.00*Lab ResultsComponent Value Date PROBNP 10,370 (H) 02/07/2021 PROBNP 6,728 (H) 03/23/2020 PROBNP 5,524 06/03/2019Results Procedure Component Value Units Date/Time COVID/FLU AB/RSV PCR [[id number]] Collected: 02/07/21 2240 Order Status: Completed Specimen: Swab from Nasopharyngeal Updated: SPECIMEN DESCRIPTION NASOPHARYNGEAL Influenza A NEGATIVE Influenza B NEGATIVE RSV NEGATIVE Comment SEE NOTES Comment: SEE NOTE:THE U.S. FDA HAS MADE THIS TEST AVAILABLEUNDER AN EMERGENCY USE AUTHORIZATION(EUA) FOR THE DETECTION AND/OR DIAGNOSISOF THE VIRUS THAT CAUSES COVID-19.PERFORMED AT [address] [place] [id number] COVID19 RESULT NOT DETECTED Comment: THIS ASSAY AMPLIFIES AND DETECTSTHE TARGET RNA USING REAL-TIME PCR.TESTING PERFORMED ON [employer] GENEXPERTNEGATIVE 2019_NCOV RT-PCR RESULTS DONOT PRECLUDE 2019_NCOV [...] rce(s) Supporting Document(s) ID Date Data Source [id number] 02/11/2021 01:56:49 PM EDT [facility] Name Value Range Interpretation Code Description Data Tyra rce(s) Supporting Document(s) POC NOVA GLU 245 mg/dL (70-99) [facility] ID Date Data Source [id number] 02/11/2021 09:16:40 AM EDT [facility] Name Value Range Interpretation Code Description Data Tyra rce(s) Supporting Document(s) POC NOVA GLU 197 mg/dL (70-99) [facility] [place] [facility] ID Date Data Source [id number] 02/11/2021 07:37:34 AM EDT [facility] Name Value Range Interpretation Code Description Data Tyra rce(s) Supporting Document(s) SODIUM 142 mmol/L (136-145) [facility] POTASSIUM 3.9 mmol/L (3.6-5.2) [facility] CHLORIDE 107 mmol/L (100-108) [facility] CO2 26 mmol/L (22-31) [facility] ANION GAP 9 mmol/L (7-16) [facility] UREA NITROGEN 52 mg/dL (7-24) H [facility] CREATININE 2.43 mg/dL (0.60-1.00) [facility] BUN/CREAT RATIO 21.4 RATIO (10.0-20.0) [facility] GLUCOSE 190 mg/dL (70-99) H [facility] CALCIUM 8.9 mg/dL (8.4-10.2) [facility] GFR 20 ml/min/1.73m2 (>59) L [facility] GFR ( AMER) 24 ml/min/1.73m2 (>59) L [facility] GFR INTERPRETATION [facility] --NORMAL KIDNEY FUNCTION OR MILD DISEASE - GFR >OR= 60CHRONIC KIDNEY DISEASE - GFR 15 - 59RENAL FAILURE - GFR <15 Est. GFR calculation based on the MDRDstudy equation, which assumes a steadystate for creatinine. Est. GFR should notbe used for medication dosing. ID Date Data Source [id number] 02/11/2021 07:20:37 AM EDT [facility] Name Value Range Interpretation Code Description Data Tyra rce(s) Supporting Document(s) WBC 9.2 10*3/uL (4.1-11.0) [facility] RBC 3.56 10*6/uL (4.00-5.40) L [facility] HGB 10.5 g/dL (12.0-16.0) L [facility] HCT 30.1 % (36.0-47.0) L [facility] PATIENT TRANSFUSED MCV 84.6 fL (80.0-95.0) [facility] MCH 29.6 pg (27.0-32.0) [facility] MCHC 35.0 g/dL (32.0-36.0) [facility] RDW 15.4 % (10.5-14.5) H [facility] PLT 104 10*3/uL (150-450) L [facility] MPV 8.5 fL (7.1-10.7) [facility] ID Date Data Source [id number] 02/10/2021 09:26:26 PM EDT [facility] Name Value Range Interpretation Code Description Data Tyra rce(s) Supporting Document(s) POC NOVA GLU 238 mg/dL (70-99) [facility] [place] [facility] ID Date Data Source [id number] 02/10/2021 07:00:49 PM EDT [facility] Name Value Range Interpretation Code Description Data Tyra rce(s) Supporting Document(s) POC NOVA GLU 226 mg/dL (70-99) [facility] PERFORMED BY [facility] ID Date Data Source [id number] 02/11/2021 01:00:46 AM EDT [facility] SPEC EXP DATE 02/13/2021ATI ENT ABO/Rh A POSITIVEANTIBODY SCREEN NEGATIVETESTING SITE PERFORMED AT [address] [place] [address] [facility] [address] COMMENT BLOOD TYPE CONFIRMED.UNIT NUMBER [id number] COMPONENT TYPE LEUKOPOOR RED CELLSUNIT DIVISION 00STATUS OF UNIT TRANSFUSEDTRANSFUSION STATUS OK TO TRANSFUSECROSSMATCH RESULT COMPATIBLEUNIT NUMBER [id number] COMPONENT TYPE LEUKOPOOR RED CELLSUNIT DIVISION 00STATUS OF UNIT TRANS FUSEDTRANSFUSION STATUS OK TO TRANSFUSECROSSMATCH RESULT COMPATIBLE Name Value Range Interpretation Code Description Data Tyra rce(s) Supporting Document(s) TYPE AND SCREEN [facility] ID Date Data Source [id number] 02/10/2021 02:05:14 PM EDT [facility] Name Value Range Interpretation Code Description Data Tyra rce(s) Supporting Document(s) POC NOVA GLU 151 mg/dL (70-99) H [facility] [place] [place] PERFOR[facility] BY [facility] ID Date Data Source [id number] 02/10/2021 04:29:57 PM EDT [facility] Name Value Range Interpretation Code Description Data Tyra rce(s) Supporting Document(s) STOOL OCCULT BLOOD (NEG) [facility] ID Date Data Source [id number] 02/10/2021 11:08:08 AM EDT [address] [id number] Name: OXANA CLANCYDOB: 1950Sex: FOrdering Provider: JANET Mcginnis Prov: JANET Muñoz Provider: Procedure Performed: US COLOR DOPPLER LOWER EXTREMITY ARTERIES LIMITED RIGHTExam Date: 02/10/2021 11:01MRN: [id number] Number: [id number] Class: InpatientAccount #: [id number] for Exam: right femoral cath site R/O pseudoaneurysm.Technique: Real time sonographic images were obtained.Comparison: NoneFindings: No pseudoaneurysm or hematoma seen in area of concern in the right groin. Patent vasculature.IMPRESSION: No pseudoaneurysm or hematoma in right groin.Report electronically signed by: Heavenly Flowers On 02/10/2021 11:08 AMWorkstation ID: [id number] Name Value Range Interpretation Code Description Data Tyra rce(s) Supporting Document(s) ID Date Data Source [id number] 02/12/2021 09:12:09 AM EDT [facility] Name Value Range Interpretation Code Description Data Tyra rce(s) Supporting Document(s) IRON,TOTAL @ 48 ug/dL (35-150) [facility] UIBC @ 239 ug/dL (130-375) [facility] TIBC @ 287 ug/dL (250-450) [facility] % SATURATION 17 % (12-50) [facility] ID Date Data Source [id number] 02/10/2021 12:15:31 PM EDT [facility] Name Value Range Interpretation Code Description Data Tyra rce(s) Supporting Document(s) WBC 8.3 10*3/uL (4.1-11.0) [facility] [place] RBC 2.49 10*6/uL (4.00-5.40) L [facility] HGB 7.2 g/dL (12.0-16.0) L [facility] HCT 20.7 % (36.0-47.0) L [facility] MCV 83.2 fL (80.0-95.0) [facility] MCH 29.0 pg (27.0-32.0) [facility] MCHC 34.9 g/dL (32.0-36.0) [facility] RDW 15.3 % (10.5-14.5) [facility] PLT 107 10*3/uL (150-450) L [facility] MPV 9.1 fL (7.1-10.7) [facility] ID Date Data Source [id number] 02/10/2021 12:08:13 PM EDT [facility] Name Value Range Interpretation Code Description Data Tyra rce(s) Supporting Document(s) SODIUM 141 mmol/L (136-145) [facility] POTASSIUM 4.0 mmol/L (3.6-5.2) [facility] CHLORIDE 106 mmol/L (100-108) [facility] CO2 29 mmol/L (22-31) [facility] ANION GAP 6 mmol/L (7-16) L [facility] UREA NITROGEN 63 mg/dL (7-24) H [facility] CREATININE 2.61 mg/dL (0.60-1.00) H [facility] BUN/CREAT RATIO 24.1 RATIO (10.0-20.0) H [facility] GLUCOSE 152 mg/dL (70-99) H [facility] CALCIUM 8.8 mg/dL (8.4-10.2) [facility] GFR 18 ml/min/1.73m2 (>59) L [facility] GFR ( AMER) 22 ml/min/1.73m2 (>59) L [facility] GFR INTERPRETATION [facility] --NORMAL KIDNEY FUNCTION OR MILD DISEASE - GFR >OR= 60CHRONIC KIDNEY DISEASE - GFR 15 - 59RENAL FAILURE - GFR <15 Est. GFR calculation based on the MDRDstudy equation, which assumes a steadystate for creatinine. Est. GFR should notbe used for medication dosing. ID Date Data Source [id number] 02/10/2021 09:38:07 AM EDT [facility] Name Value Range Interpretation Code Description Data Tyra rce(s) Supporting Document(s) POC NOVA GLU 159 mg/dL (70-99) [facility] ID Date Data Source [id number] 02/09/2021 10:20:23 PM EDT [facility] Name Value Range Interpretation Code Description Data Tyra rce(s) Supporting Document(s) POC NOVA GLU 148 mg/dL (70-99) [facility] ID Date Data Source [id number] 02/09/2021 07:13:20 PM EDT [facility] Name Value Range Interpretation Code Description Data Tyra rce(s) Supporting Document(s) POC NOVA GLU 239 mg/dL (70-99) [facility] ID Date Data Source [id number] 02/09/2021 03:41:48 PM EDT [facility] Name Value Range Interpretation Code Description Data Tyra rce(s) Supporting Document(s) POC NOVA GLU 215 mg/dL (70-99) [facility] ID Date Data Source [id number] 02/09/2021 09:12:36 AM EDT [facility] Name Value Range Interpretation Code Description Data Tyra rce(s) Supporting Document(s) POC NOVA GLU 130 mg/dL (70-99) [facility] ID Date Data Source [id number] 02/09/2021 09:48:02 AM EDT [facility] Name Value Range Interpretation Code Description Data Tyra rce(s) Supporting Document(s) CKMB 3.4 ng/mL (0.0-5.0) [facility] CKMB RELATIVE INDEX 3.1 {index_val} (0.0-4.0) [facility] ID Date Data Source [id number] 02/09/2021 09:01:34 AM EDT [facility] Name Value Range Interpretation Code Description Data Tyra rce(s) Supporting Document(s) CK 111 U/L (26-192) [facility] ID Date Data Source [id number] 02/09/2021 09:01:34 AM EDT [facility] Name Value Range Interpretation Code Description Data Tyra rce(s) Supporting Document(s) SODIUM 143 mmol/L (136-145) [facility] POTASSIUM 3.4 mmol/L (3.6-5.2) L [facility] CHLORIDE 107 mmol/L (100-108) [facility] CO2 27 mmol/L (22-31) [facility] ANION GAP 9 mmol/L (7-16) [facility] UREA NITROGEN 78 mg/dL (7-24) [facility] CONSISTENT WITH PREVIOUS RESULTS CREATININE 3.22 mg/dL (0.60-1.00) H [facility] BUN/CREAT RATIO 24.2 RATIO (10.0-20.0) H [facility] GLUCOSE 131 mg/dL (70-99) H [facility] CALCIUM 8.5 mg/dL (8.4-10.2) [facility] GFR 14 ml/min/1.73m2 (>59) L [facility] GFR ( AMER) 17 ml/min/1.73m2 (>59) L [facility] GFR INTERPRETATION [facility] --NORMAL KIDNEY FUNCTION OR MILD DISEASE - GFR >OR= 60CHRONIC KIDNEY DISEASE - GFR 15 - 59RENAL FAILURE - GFR <15 Est. GFR calculation based on the MDRDstudy equation, which assumes a steadystate for creatinine. Est. GFR should notbe used for medication dosing. ID Date Data Source [id number] 02/09/2021 08:15:59 AM EDT [facility] Name Value Range Interpretation Code Description Data Tyra rce(s) Supporting Document(s) WBC 8.3 10*3/uL (4.1-11.0) [facility] [place] RBC 2.83 10*6/uL (4.00-5.40) L [facility] HGB 8.1 g/dL (12.0-16.0) L [facility] HCT 23.6 % (36.0-47.0) L [facility] MCV 83.6 fL (80.0-95.0) [facility] MCH 28.6 pg (27.0-32.0) [facility] MCHC 34.3 g/dL (32.0-36.0) [facility] RDW 15.5 % (10.5-14.5) H [facility] PLT 117 10*3/uL (150-450) L [facility] MPV 8.8 fL (7.1-10.7) [facility] ID Date Data Source [id number] 02/09/2021 06:47:28 AM EDT [facility] Name Value Range Interpretation Code Description Data Tyra rce(s) Supporting Document(s) [facility] GPXYJd0mOcPOHtJuq5EpJlMlFVIaLX3ylnc4P2I0dBEtX2HalXYgi9bhE5KxH8DuKQVvRANHBT0ZfWQh jb2 [file] I6sBD76UtzXgN3Q9/9t9R6P3+96ef7FTN9/fd40B/++/PK/avCL+B7/MblxIdXlKvAG/hNO+3gd+A3 5Yi2Dzic5ez/iiIp4dv5h8GEal2XrL75936+W7l/tRK/wI/56k7Q4QJaHoWx3M8/iRbHl7b7oo4n84Ty gO//45h2D1m46xp6s3cmoJ/tsq7msRg6ie81y6BkFY 6A7/26lfZVyTeUi/YuhxwHfoN/A4/6NpR54brKW0jnxH/mA5s8SZwG0CB9W4rtU+TZ9lSuRv/8Vk1eAO xfLdhXS/X2Tk7XiE/YV0v6/7u0/86q7tmXtd+nfVVptFcn+AApqvjRjVtes9sjuwu21FPBqAPX9k03mm qN/fovb5vFJLlt41Vnr/a3oFeQr5I+St0avm/aV5UX 5IQ626OjI640lS0xi5TyaKVyxkvLBJtSC0w9Pmpxd6e/mSkj05Npsf6E+jeQRrlcp9OnpY+nNHyqZ0GI /Y3k6fX+3a3zz6n/Pl2zg6kAdKb39oes67DGZ+//Lxzi3LtvVjPb9zrpF182w8iet/gv0+TTJV0OLXHk Or24XWps34z2ETzgme4505HOu/zIbPkZJXLfC1iL0U qei97Fw+G4+5e5xKS882Sv/1n2YpQH+EErs16r+uh3Xb8T++ev8s3E3m39Gn+2N/Yay8lLa1tQp0SQw0 xr672GA/1e2lv/p/1HK+2r/YTqA04Zk+9703q/rEd4olD1mV/2hIgaA8X9n2sjkw/KQ1BIjunVK0Jz+H t9JJ+H0271OWttDy9X5lO+Q36vj+Tr/lzcC4ihX9k/ BvAD/SY3aWw7+uoV0pmJ/AJ+ffqXtK++cDa4SHmf/5Hww7Wi/qOA0K5t/h+X98xj/hTm2uKqtwcmXacf Z7noN5mdHMk4HMYayL03qaQj2/ubT5P/116J+APh1iwU+mG1hbPxvI/+Vt+R/mB5EmbQoiiKf1DyChe4 5ocw866d+iASy8S97mbTxcuah7gfl/mITvC5d8/SP3 2ZcXpWb2r3S9af215sjg5cN81/bFzS++OJcn/7uotjFSf0tidIX/T+/lWW6V/9K2/4jyz5f+0aso3Zs/ PK/xQK67xLke+1V7/k/4WWU15eR4js/Y9u0kKV2eafAX/dpLbnm2O9xQ+m6F0K9I4iG6Ggf/X4l81789 /FxioaCutHL9ta0Z3YHDxrHTyj/RxJ+3nq6Nz21Rp2 gn2WgE3dgP+YsaAT6l7bxvuS/xQZyL3N6QV/fw1R6Pt3QAzp0JyF+edbF9V4Chk7mhT+ClNT3p433bK6 HVaNlHddcotbSbBh3sQu4GWTnNQiMauSo+9vSNpXxbOAX+DY4JE5CadEudT/Ae/Zt20j8kuoHmYN5gGS vhLv/RzxD/rtvaNQm84WqgBL6bsg5vK+9neLK/gVeO v6e+6icTo0Y1f2++Lv53q7r2kb4azDv/13giuAMxj90XZU5LcdnYf/umnwL+DXsw8l/YM5t++8V3Fz4I rsT4F/UNI/mPPebn+ZbAf/Xs76z9m+wLc/BX76ceQ5erxA3P+B9S4XwuLx/zD6A1WP6G4/asNOFw8CIJ U+2pv/mvQPSuId+PT/ZnpDzgb+AN/s3xCUoh846/bq 1+1V+Ae1/STe07EsrUj4grM7gCl3+muilkJEr2Qh5Snq9h73ba/r1/t1+vX+lD40M7lwY6Zq+1eK/SvF /pWO3q/BFxRr79ZHRe/e9EWhJd8QJ+/x1Pq5RXghQ9T7/ccGyle5YPu4/Gi9wS9Gspv+sales agent food vending service+OjrafdbZ/ QXH+Gxt7TcQ76/3/onmfxNVD4pI/Ha0Jr0ITmjmogl l/Fle58bkj/6jrNeoSIB6+jfps8B/gT/PH/tVLA5/2xpfpbu/l72Gzxm0pR6gLvHhxE/evKq+Cv+0NXQ Z+A78D7+Koyw2V1mzTCHq912xWTeht5S4mrDX/LZBFd4E/nY3SO0I8+GmX6Mi4dwpdcAE/S9sbCv+gSu /nqLQ/LtU0ogY+QS3/6Lm707n6xsS4Lxt/lnZ5apP/ rqg0RgErZeC0SD6DP+Ld8hU4iT6/iue7Htzn7I/wvd+dmdeG9n1OI5PA4GZi6HF+07fJ9cEi9kvPqkov otb+FtVZSPTweEh0hfJ+UtvAH/E9wlXkrhQ3C+dUi581Y+vlM1CNH+Fito+yo5iHg4DZ0HE0IZ+DRXnfI x/fF/pU6vi/8gwr/qG17067/9A56XlKv8F55fJX/qB v9eaM/b7QX/kFN/6BUusfRRn/zTot5R1brO+re4O/0Fb47LnRg/hQ97V/Qg/H9YK2Nzq8n/6+eCfwCfv N4hUTeO0buguo0EC/HNUuAV4e5AKNzsJdwRVohuu9ts/uo9fo06zu4b/Z1e+3r/Zj6NbOJ+GY7MX1Wg+ GNiKwia7Phaz/Ab+J03Bom7sn9Z1yynX+H2z6IxrX8 dzDy8N8H/Av8Av7+vjYU+KrtOH4k+W6G6HrQbHQLlp2hx+2oRtt0bk20wQ+32et9m+0/stn+BZvtXzD4 T013t8s4sJ/gF+RR9nqLY+PF239H+Q5+tHeivfMAj/363Q59TI/9vi4rR2747s6NYEfn6C1SFn9H/kFb gdIB2jF3dr4ur3BnaF/8lw1v92qs+dlW/87Hua70wY +3On/yrz8hOw3m4fecr/jeyIL5CRLsY1u2+tdEgFfw5/x7oArgj46r0m0HH3z6246t9CaG41zC+8q099 gO054xIv96kks+RwM5z7laFvHzLD2AxkIunLmQIhp5fDD4re4iNB/9NEksc7bYoGN+Msj72tqH2YVrUR f76njer6Fjo82p0/622QB+AN/+NXJ2f1yciDFd2JXe a70+hnruAyOhxAO9RlaY3svsvJAj5qweyAPb5d+E3YbOsD6BBMWie6/wEHYZ5R/y9i+YY/zi/JXh/JU5 5ivH/1ybKmwaF4o80KE+Qz39/WfN8T/yDTz+V239zmgcvVzr2b5/aTh/XqnCk0cx7VRtoPB8PokJcP7N iU32ldaBJeBbJ+32/9pu/5Ht9h/O3wZcpC2d+0z5By l8c2tdbsP/RUsCqJ1y1nr7MuaUBQmssXrPBUmioDl17hiJ5v29QoiEik6bjY2aCQ/N4vm1N++tWNhXeW 1friEJeLL5CxcaoNX/3k9J/r48k2kf3Vpywykoq7r53ftWkMw+bQskLtdI3kMT/2nD2CJbS/icM9MtvY N140UuhS/Lt49tYHR76PeF+vGwr/Uvjsk3alHSBdfC PBK34wo+KA/6VurXp26GDMc307/7f/4k7a11g/++k73h0zvr2u/v1znOt/vo8/sc7oMWdC1IBeo62z07 HxP8vV/no88/+xDg+zy/Z5I2Yb6T/D7/6CD5P625wUjR5+84DgnXlc2/5eZ5H676/RSffR/H43t95Dpf 9/6pA9Y1op3BmB+n1fjkLfwX9yL89J1sDvYK3rq2Bz I9r9mnHi+3z0q3/QY2LnF8p5ySjrC+755g97g1ex79kz3Zlm2zE11tQtYaiBkjqA8W2H4k96X1W2/Hce n9Z5e+j+CO4cuDTm5K+2nIlHI0ZaqovO/g+wq+r+D7ikG+Qb5/SEP+Bn/vt7v0/QUP+4hF6lfVFItfmX vhYV/lXQbXvr/g2v4FD/us2oU0L6+0N+s7mE8aQcYX 9t70D2+LpgpGtnTwB681cNk0DTwS0yk9qs80+JO4xIrrAa/74xGYOr4/7KuLj/buSmunF/XFmEH5pMyB RvWkhDf1XsBs+A3+aG+87qWgZ0u1l9agY0o012es7/h83g6vk/P+LH05QM0I+AU8vq/3/SPP+8Cx0n0i cX/Goj7jfsuL7hbuZvRT4B0C++rRfvF862y62nmdNg G0r24a+Al8+ybbwE0hpg/z3im/d5d5cws5vi+c644h3P5JM/C9f+V7Q84G/gDf60E/7e/20/akY//KsX /o3J5t1J956a/8LOAFeAG+7Wc/bT/7MeANeAfegd+QvyH/gL/t5/21/by/Xi/sr9f7++v9nP21/by/tp 839q/2k8UU2Sg+5P4U+E7s601Gt2H23E77D/gN/gN8 709u+Ac3/IMb/aR5hu05my+3083bdDY9x0UCAXSjew+/R++376GQY+C31//50SiEsbsrU3R51T/w9/2y Pfv+rn4x6I5a07GygC90/B3zh8b7Xi7JU2SI1KL/j45Jz7VgbZikh81/8X2fbs++G9mfJd44/2r7ea++ X3bRbzdj9UBO56925vwzDnIi8GpHg/t55/9V9HhUAz Rw9Ow4zoWQ5eZTq8FuSarmr/rFYng28E+6aeAn+CfwC/bL6zY8UK6jGgHhUWVF/Y779qdvv6C2ix+b+1 fJn/dBY54xNxspqJ+ivdrnVbaivYr+aK5R2vV6w6jnM6udp/7BwtuHNORj/KZ/sPAb/CqdKsmi0hcv+r 5REn4k9Kn1yO9c4/h5uH3Lr9vkf59l35h5ErCZp+Af 8Axbeck0W588i8hw2Fl8jgwFAFr34/o+7Da01/z88vd21/u+1fa+S3ze5rYM/jE32ap9KF/Fh28fwJ/2 4vzVdnxfd+V65HgeF+Yfqf205zxBR4mAsxc01jk9/u/kcU6Dc0Tc8R7gy/t+3nd3mq0N6z8/8le71D5o bm+0d6O9G/+rnt436T6Z67xG4Mur1s/utK/yAU0297 [file] Sfjd5a0268SC91MNpkE43f5T/xZ1Hw9JY+Bo2y5ZW1 q4ljm1NtxgsSTfcpMWr3vZ0L36nqg3f9s/zIr5vqo3iaCgWNu68ob6ms/R15eYzg/zjDeSb+Bgl5vciZ de2/euva/KfTdfo+89m760E38xqen//msJ/H0wV//85kGWeccb+Xxfe+/37Gde//jbC77y+TOemWV+4x 2/t+Bc/7b3k0YR0vhhe4rxcm1NrmjDvh0kGGElk254 3g5OFusRs6omptqQyalVdh8gpvfRt+JULGtyK77uXMospmsB/XuZkieKAPwac4q4Ahe+fbDD/pwD3+fa /moPl58l72P7I2/g2Y7pVXmbq+5OLFmbh8/h1jRc5vRdga67ktXt9P5+j0pe/+775HN/zjz2DYVmd2tu PKr3+Kwzk90N7Opm/UgBkrsfWeQR5g2/aN7rHe+Y2e n9hJJwxaisfSaYiX1+nPmsK6/tu/Yzn3M++KkIiN1fp0V6tdw/767gn/ogx8PLk5+O99cn+DG1eYgCP+ Cf+mtf5W221reDC56amJqG4fo18uakLyAE5Si1/7YO754ySDbBluf8T+2DFseE3p5p8wF6E6LrxZfCZ3 RD0TaAH64my6Rv9cvZ2q0BsZxVB/DxfDfGuzHePcE3 6Q70aNbelTdWD+68mSN4pNdfQq/8qtxTN9Bt9aWMfQz1iC+gyMfXp+rf4vrrA0C/UX6Cb+Ab+Eb1iik7 +vBpS3cJ+Ck58ayi2m0C4189KfTLxHVnu3nEWhFAo+ezygB/wcoN30I+r1929Dek9+306QEy1aC0kOK4 AH+j/P6+s6r9/tE7n2pyNHNhA06gT2xq197RoE+KP7 2dkhO3vdu2/SKg04d9Dw/qesf1Vh59qWRw4351fSQ+2cw5Bz5dgo+8Bv/Dw4SA5ge8xozp7ma9SH6I/5 53/PNuJ+U1yg/md3hJeMiNr5Ndt73+tsx46qZfq/O6J85keqg+dnKIlX5mKlIMpsx+9zWh7u30LcS1pc KM60p8R2Io++ls6iQQ3/86oSj5bmwhzJ5xydYP9oU7 4bYy8qBvBe0jc533wQG+XuC/377kEWQQ25S9h+yr8vod+9ea34K0e6bi6Utev+yryxfwpftj+mJ608lG 5QfKz8/eO+RzN749ijxr5lFxiuqbz2WWS6eiD1uy9Sh+oh1rg8527g/zjjb0B2cK51k2Ad/Ksl0226f6 /Jn8shIstV/z+M0iu3biU8H2ru/Anhq81fqE0S9k++ ryHfwzXk1+zg383b/Vaxi5psnrlD1z25/j/OSBX2CIjx+xry5/gEgOk4Vj3KdnCU+nYF3muOuCRv8wQ0 Oy8Iuigw+qzLGvqsyxr+11bMqM9B663nJnQn515iOH6d/gT/OWiWAj1Li9h531+Il9jkOA9VojKkqN11 qq63i9RZh+sa/qXse+ynESzwf1Qifh7rfd/Ym67k74 UH6i/ER5Ax/gl2Nz1Pii88k22Ees8u5dU1lI+u954oKeh/a9oghOgN6jCqVofKfZV84FsfvWeHfy/RNe 5HLwH3ut9++RwnhluOelGP7mn6L+j/tVHIe5Nv5IjK/gb/B3t5/70bPUTCfyq3d3VYUUtmccqNPazyOB 5Y+8Ajxm0Htflx/9LLM+l8iadSM2HmffuR33+/93pH 8YcXjK9h5r6aYblKkfW5ivh63btHOt4vPPcRQScqopu/upE/yJ+xr4GG/nG5AqgH+D7+AH+h/ozwZ/d/ mB8eb+CkI0PT2xm9oniIo2az8UC/qL6vfik70t5G+gAqp53Nmb/6rKO/eY30Y9D6A2vg7p6D1MaN9N24 TznW0/y6c542wWG/ldcdcpK0J/rfyJV1J2eV/gL5Rf 0evY5z2iEX4YBqo7duc47Rry095gz5I5gyqgen5szUpDNrmFy/V+7Al7+IonnCmr0xI/4fzYoHNVd8lO v2zeIcM4Kff/P403OH3+Omfx7j0mbS3Artc3lqSu26S2qP3J50yBgn/0B+/vwnq1+ns0cv/xLrm8uNt8 NFZ/f4fje+I1QnR2rw+/7/JI++e0J8q741zdgBFpS/ lY0Qj8ubNI6nfjM4l6h7jw5Vo5xJVaGD/6dnC8q5puy3OFafg7GeT+KN1elaS1xxG0GtH5D+tVYL3K/a n0wgS1epS+uDMIw0E85HNkftBG5tczFrM+ZuY19hMGjY87kaof268/zwb7iiq10c/yYVv4bbnI+bwxnz e+Bmyj37w9kCF+b6zPG+gg3to1pwXc947l8s53+x7z 6fVqPg/4Zw4925O12t7zi/+qrgfKt/9yUrS8wPPK/U7q4pQQX2w//WXzcbQTKB/bl4Dbh7iEvRyl3YYn 6lH5fc0KcLk2nmb021gVSjkcxe/RTj/sFb05cedgK/i4Fv27c2Frq/eenrCD+y96WYb9t0TIYh5C7+/6 2Fd+3vcTcvCzV+Rcv+ONvNexr/i0Mk6qNdWwKqBAZ+ M0y7z+FPEs8/pTtNp//Sk/SzKvX7+Yqc153rKWEFX9nez8nhr14/YqrZxRu6FA63Xo8b6a6zxfufzj0M ux9jnoGB/JeI2qK9wHG4asHl063ayy6+JPX5iP7/o11yaK7oj3jWWg8/y9Hi8/23/zxhh05FuQ7/9y9i 0YQFWNgY8u7+d6RQgm93Pk90FmVPo95Zbq1j/z1dT/ sa/Dx3rpbDyio65wz15uhziynCS8jkbPk7Lhzmd8na4o+ilNfQSf3juAL70i3+tmo00bQ3j6T3Zf/8Kc 7V+E27TnUN/QTu4/W15bX5/6Q43B5lo5toQPdwW76r5d7mia0NxwDtctg42N/t9p7f+dNlF+gm8ob+Av 6Fh3gbBcMcX1FPC+o53d/LSvsvzC+wsm5d6Ujmpp3p TiV4EpGts1MR5B++4rVbrfA5Wp2xoItN+iilnJ1zD5R7Y23KzB4T+Y8A/O9A/ea/AF/PanTG9/ykz/YM 7/9A8WH/M5/YNVt/3n6y3bYpwA7oo4ftPh/AA/0B+MN/3RfC0Lc/kHk9/+Radames/7Os8x450Kfm5fiA+wV n+ychw7gC6gaPJQpxTlup+5nPg+xv4/qZ9da/Bx/c3 8P1N+yq/eIbg196lLKryT8VB/q6omnqd8Hl2d65ajg82e/u7uXs/Z2L/amL/amL/dp52f1gS/febu9t+ nrl/qpy02g0Nf7a/ns79v649dgj/Qjjyl4AOQzehD6Yt58/Ciq8hjw5O+T/+BL/7Yipat0+D3/4Uy/2r cCoj3v4QF1+zfIB/xnu+O+cEf+6oxzL254rdj3GLvB dd3BeNCV/IObz/RMu20U69k7PJd3FP3o/X6U/X6n6FQtu7+9quH+Sc2T+b9Oca/ONPudd2/OFzxS9YQh Bvf4pJ+7SSCk4ehgMifq1tfo1rbg4m/+rQ6G6WNqmQ3zsg/Sw2e9VU6j+6fAP/fYuc30PX/2A+l/QP5j PV9pdZ+gdzPqR/0V05wCv/QH9e2D2Hv/8fwx4CyXWc P9GaAs9Q8csMwJ+IczepLNnLv8gQzjk/0M4C3/o1Bs8qun/pHyx+oP3d7+nA+lhby5JN2W+66R/M8se+ wanEJ7KDCL83j+ZE+kIsRNeRz5H/wHe0j/Ee++q7Bh/elJcfKab5mS/oQ28viDatAasuU5WGaU6lGiPK xbLy8F7go5fE0sPFt/u8eFTbOAdcl6n8/8hW+48s/Y SFb7zBN7b8Bmvkb6S2S49c60hr7Z+81+Ab+Zp8EkmxG2K0nIhuM/zN7JDt8A2Xplv+juX+VV1Ll6/9q7 zWvm/rL08td5W/yrB/Zdi/Mm9/yxqhRyV2gB2bh2GZtU2oaMx940+q/Y3+PAk1j2OC0Ty/zELAx/MNPN /HcZCbTNu9OqjXm/oHq+5Cf9o/vRChn2NCvV55k2k2 /69F+38a1ql41cC3816q/INW/sEsg+d9142mz1N5duNp+DstbhKWpyt5Cgq8h7kc64Wc+Act96/quv1H knsX77o7Kq169Ouy2eU/ZeX+VZXv/eq5OGmHqM/7drFIrO2aam1bi65DutoNR8u26y/wA+U3+Uvo5k2y XZxvXzjfvnC+feF8+4y8e1wA22PW6xNuZ/iGq0Z41V 2mqmGyK8k3fYTkvE/9F6nh9Lv/sMo/SPZ7h3rOf+eb/fT04fbJmxR5gaapqf+71UW18FBjEoL3tqL3cd B8oD+751X6B/I65TlRH1zXW7guBiubiHbCdzeZ+APlMZ/RoX0qxLz2g1wr23hwr4HCD9pex/dfcM3g3n fiAx2dgQaog3d1+zbxK21G33/gDmk4eqM3mfIXh7J/ dY0go5A9qO/gL/AdfAc/wA/wN/deIe9BZqo05KE7dpH+0rxu/4Uk9g2yu//+sv7/XTbBx/E42t9tq/O1 HY8MZ7O3Iin/ON++yj+X8zg1wT+4d7QiOdeLH+pKvmumUT6V1lc4o3HjDKd4WnEZ7O2B97Dtl1QL7M9Y f/D+LqzPC+/van/oWu0/Im13dznnlax0H9p4t3C0+3 +Xt/56Gdjo6R+zrwpHeSYWmDA2mfOHqf/vdC25po+T1natRzB90fzbbM/ZDuiCydzyMp1Gu7L6HVClXe arwHyOPh+5Vi100YkG6pk1e3vw4oyP0cHE/l9YaV/NvD7v7/lfXse+Mvig0l7WrmhvI//Ra7c/ZR37ah 8/aJhLj4RcL3EaJ47YvOp9+FMi6x5/Zcf5dm9u9gu+ fJWBeZsDa7oTmqs6wdOxV65N8dtqNsjk47+CADpoi5UldsWMrftpHdgcu+M+3vJ+9Qq2qdAl+FPOv7+/ 9tULYp/XJz5ln+mzApl1rc2bf6gW3iSAsla7CO/HF4eqo205Gb/85OgI9nOe++pJnQX0L3gXQw0GL5zw x75Sy/ErNmSMhpm3u//wXS0yFfj3rq920x+j y/S+/UWc93ihuFN/i9H+kuG051HXufm1rx+EUE0o08NATn/XbH+XbH+Xav+MHk9/wixB716n6Qq06FaU iaa7wvu0rrt82/qKugfPt/Pe2r4g+Ub3+oV/qn8kxcM8C2uF/oT/t/Caj7srnYtauhKtgD1Nl6p8ulsC PjHQK+aAkRHdT4IV0rK+IHHfGDnvZVlTeUXyjf/hQf VW9gy9xY0c14bx7kmghl+Bs9PP0bj+Gz/Sk+25/iU1C+/SkO/6DPjk/k4mHrPmwWJ/ANfAN/gb/Ad/DP eJ/sR5Ce3V/GNaSdl6cU02/h/TWM1/D+moLf/fH07db0PPHu7ZdJ6/la+1PcFsrj+KnCu6w6bWdu8yVu Yuxf88T7hVc7xq3+X+ft7M1yKh0qo/TH9zw8JxSt+P 1/5LCvfLU/xVfHp/ulr5zvTn/suX9V1/m/rOV7w3VHQs//S2h8z60jhr2aip5xxa5vis8w/5mkKo9h2c 7Az/+FurYu0/xMhpoRryz9sJk205/wb1t9N48XPx+/h40jN806I8Kc++3uHZ/tiV0CtM58dgIsyW5JGt HI+BTJa+igUG7Rs+R1+iy14Izwj/Do+BQPA//4F+61 Xb+GR/tT/AdA3GunqG+OL3gjgLe12/4U3+1P8d3+FN/V1P88qd1cGjHnhioo9L/pTu4O8pap6p4I3o8v KX72r+71An/1c0n/4LGdfLe/zNM/eK/B3/3cd/tT4ml/SqR/cCW//SmR/kHLawVfwW9/SsA/GOkfrDIT /N5Ezdw9WCS+lVkdNemUn1YC4KX4kk7zqp/4B1CLLM 3nPPmQM8VV7Sm8w/sp/n8KFZGkSbH8JSQu4BndPA007xjTT8LTFA55z3KhOSc1EW/b/xva/qPQ9h+FYr gS2gdMKbO8Dx2N+7i2Wuol4ukk/Y1QB9/BD/AD/A1+627S2bxE6NPB+XQBAu0Lq+UV0Ra397y/Y/R+To b3G8MknI/zbm2xinXh1j/FCPAD/B5xB5VSz9Glz4yg /fxwjpXVML9ROrUmry348T6V+jx3pc0f3bjBA/Dj8nirF+7b39/I/avib/Y0242N6X8CaaH0bhZwacqD 8r5DGgaXE7e///fD+n8/fK0ASYZ9EkjD8H9yEDqW4fX0shkUHCv4Ku7GiAg5ra+K9A/XhMPy2Y+0M7o/ C+PF/gUzcOP5C0+B3/tXsXo/VbxZkhSwBnUjlWU7t+ EYb+5fZRnv/hul8e8X51aloGT0S+UH+Biv4/l670+G9357+AJ/oC85N0JhTws3VmT8bEk2mnhk/UcRD/ qDnf4hz4J1D5QL427Q/gR/gt/2c2D/KrB/XEYmJy4qjcT+1H7pGMJI/4ELYjawc5ja+S974950yvWy7k 3Ax/MRkaQvG3jE44xhq+FohM3SRp2G2ILQ/0ZBDut0 o/2ez/evp 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/yu49Mr64876S3FsWf58DRcZ3Ji/mz6P0Be6W+Oc2ezp67e7r18++3G0E+h/gN/r9S21GiCE [file] Hq6eAcYvYZKQE3Avd2QjSFCwOFTZVi7+QyR6QWA9vLLiRos1WhErOEqoOPCTUi== ID Date Data Source [id number] 02/09/2021 12:31:28 AM EDT [facility] Name Value Range Interpretation Code Description Data Tyra rce(s) Supporting Document(s) WBC 10.0 10*3/uL (4.1-11.0) [facility] RBC 2.81 10*6/uL (4.00-5.40) L [facility] HGB 8.1 g/dL (12.0-16.0) L [facility] HCT 24.1 % (36.0-47.0) [facility] MCV 85.7 fL (80.0-95.0) [facility] MCH 29.0 pg (27.0-32.0) [facility] MCHC 33.8 g/dL (32.0-36.0) [facility] RDW 14.8 % (10.5-14.5) H [facility] PLT 115 10*3/uL (150-450) [facility] MPV 9.0 fL (7.1-10.7) [facility] ID Date Data Source [id number] 02/08/2021 10:55:11 PM EDT [facility] NT INFORMATIONPatient MRN Name Date of Age Gend*PT [id number] Oxana Clancy 1950 70 years F IPPT Location Admission Date/Time Visit ID Attending ProviderD-[id number] 02/07/21 6348 --- Jo Molina MD([id number]) EPI ID CSN Admitting Provider [id number] Attestation signed by Raymond Palumbo MD at [...] stenosis status post AVR, [facility] tightness withminimal exertion. She [...] Medical History:Diagnosis Date Cardiac CATH 09/09/2018 09/09/2018 [facility], . 50%dRCA, normal LV EF, moderately severe , moderately severepulmonary hypertension COPD (chronic obstructive pulmonary disease) Diabetes mellitus 09/08/2018 Diastolic CHF 09/08/2018 Essential hypertension 09/08/2018 History of diabetic ulcer of foot, right 09/201809/08/2018 History of pericarditis 10/201811/17/2018 Hx of CABG 09/201809/14/2018 [facility], ABAD to LAD, SVG to LV branch [...] Social Gatherings with Friends and Family: Attends Mosque Services: Active Member of Clubs or Organizations: [...] 1 tablet (75 mg total) by mouth [id number] tablet 11 Andbyuxkmmk-Bqeknuveg-Ufwazf (TRELEGY ELLIPTA) 100-62.5-25 MCG Inhale 1 puffdaily [...] heparin (porcine), lidocaine, midazolam, nitroglycerin,oxyCODONE-acetaminophen, traMADolDylan L Hines, JUSTINE portion of this chart was dictated using Interview Master speaking softwarewhich may lead to typographical errors. A reasonable effort has been made toproofread but please call with any questions or errors. Name Value Range Interpretation Code Description Data Tyra rce(s) Supporting Document(s) ID Date Data Source [id number] 02/09/2021 06:22:34 AM EDT [facility] Name Value Range Interpretation Code Description Data Tyra rce(s) Supporting Document(s) POC NOVA GLU 186 mg/dL (70-99) H [facility] [place] PERFORMED BY [facility] CLINICAL STAFF ID Date Data Source [id number] 02/08/2021 03:58:16 PM EDT [facility] Name Value Range Interpretation Code Description Data Tyra rce(s) Supporting Document(s) POC NOVA GLU 221 mg/dL (70-99) H [facility] [place] [facility] CLINICAL STAFF ID Date Data Source [id number] 02/08/2021 02:37:47 PM EDT [facility] Name Value Range Interpretation Code Description Data Tyra rce(s) Supporting Document(s) &PDF [facility] WGHGUc5eVaRSVgVb40/TAUuoTKNun4MzQGmvKTc9ZFcmPELxE4MsiQaeVNPGGGiEQmmXNvzFDOeKVDAB lYX [file] HFJlCF2tUHHWXd0+WFgxtWZypZirYVNFDzu0NMr3YKdcKXTHUb0F ID Date Data Source [id number] 02/08/2021 03:43:15 PM EDT [facility] Name Value Range Interpretation Code Description Data Tyra rce(s) Supporting Document(s) APTT 45.3 s (22.0-34.3) H [facility] ID Date Data Source [id number] 02/08/2021 11:42:12 AM EDT [facility] Name Value Range Interpretation Code Description Data Tyra rce(s) Supporting Document(s) POC NOVA GLU 251 mg/dL (70-99) H [facility] [place] [facility] CLINICAL STAFF ID Date Data Source [id number] 02/08/2021 08:19:06 AM EDT [facility] Name Value Range Interpretation Code Description Data Tyra rce(s) Supporting Document(s) POC NOVA GLU 215 mg/dL (70-99) H [facility] [place] [facility] CLINICAL STAFF ID Date Data Source [id number] 02/08/2021 06:23:10 AM EDT [facility] Name Value Range Interpretation Code Description Data Tyra rce(s) Supporting Document(s) EKG [facility] EKFOPp5kTyQPWnGrm2JlExKyWBVfLT1lyoa1O2C9mPSmJ5AqgGWbz1cgX3CnS6ZhBBUpVLOXXL2CoNTd jb2 [file] T2MR3cmWYn+TuUfY2tisPnEvYcqbwuurZt9/a5unLflZQw1v3+PATTERN DUPLICATOR+xX24+PATTERN DUPLICATOR+4tCE3isti903OOW/2n9 [file] IU8nocqf9meGT/syGL/TCksR+High School Mathematics Teacher+WKu8J1s3TDC/CSOalRb6rwl519WQcklJ3cnf/J0etSlBhEjLI+GL [file] AwMDAgbiAKMDAwMDAwMTYwOSAwMDAwMCBuIAowMDAw BKOnLwM7QQYsKBRfKV3bUhBtNJPsYNL4LKFqFGJxYUCllxSAECXsDUDeZPDpJID0PMLoIUCiMQc0hiJz nUEgZfw5Ib6FoCxlCFA3Br3CcwVlPZMnMCIAWr0Ij102QMTcQCSDNko+PgpzdGFydHhyZWYKOTgzMzYK VGYVR0H= ID Date Data Source [id number] 02/08/2021 05:56:39 AM EDT [facility] Name Value Range Interpretation Code Description Data Tyra rce(s) Supporting Document(s) SODIUM 141 mmol/L (136-145) [facility] POTASSIUM 3.2 mmol/L (3.6-5.2) L [facility] CHLORIDE 103 mmol/L (100-108) [facility] CO2 30 mmol/L (22-31) [facility] ANION GAP 8 mmol/L (7-16) [facility] UREA NITROGEN 91 mg/dL (7-24) HH [facility] CONSISTENT WITH PREVIOUS RESULTS CREATININE 3.30 mg/dL (0.60-1.00) H [facility] BUN/CREAT RATIO 27.6 RATIO (10.0-20.0) [facility] GLUCOSE 211 mg/dL (70-99) H [facility] CALCIUM 8.8 mg/dL (8.4-10.2) [facility] GFR 14 ml/min/1.73m2 (>59) L [facility] GFR ( AMER) 17 ml/min/1.73m2 (>59) L [facility] GFR INTERPRETATION [facility] --NORMAL KIDNEY FUNCTION OR MILD DISEASE - GFR >OR= 60CHRONIC KIDNEY DISEASE - GFR 15 - 59RENAL FAILURE - GFR <15 Est. GFR calculation based on the MDRDstudy equation, which assumes a steadystate for creatinine. Est. GFR should notbe used for medication dosing. ID Date Data Source [id number] 02/08/2021 05:19:16 AM EDT [facility] Name Value Range Interpretation Code Description Data Tyra rce(s) Supporting Document(s) APTT 52.7 s (22.0-34.3) H [facility] ID Date Data Source [id number] 02/08/2021 05:08:05 AM EDT [facility] Name Value Range Interpretation Code Description Data Tyra rce(s) Supporting Document(s) WBC 7.9 10*3/uL (4.1-11.0) [facility] [place] RBC 3.47 10*6/uL (4.00-5.40) L [facility] HGB 10.1 g/dL (12.0-16.0) L [facility] HCT 28.4 % (36.0-47.0) L [facility] PERFORMED AT [address] [place] [address] [facility] [address] MCV 81.9 fL (80.0-95.0) [facility] MCH 29.0 pg (27.0-32.0) [facility] [place] MCHC 35.5 g/dL (32.0-36.0) [facility] RDW 15.1 % (10.5-14.5) H [facility] [place] PLT 135 10*3/uL (150-450) L [facility] [place] MPV 9.0 fL (7.1-10.7) [facility] ID Date Data Source [id number] 02/07/2021 10:40:00 PM EDT [facility] Name Value Range Interpretation Code Description Data Tyra rce(s) Supporting Document(s) SARS coronavirus 2 RNA [Presence] in Res piratory specimen by ALLAN with probe detection NOT DETECTED [facility] This lab was reported by [facility]. ID Date Data Source [id number] 02/08/2021 12:31:56 AM EDT [facility] Name Value Range Interpretation Code Description Data Tyra rce(s) Supporting Document(s) SPECIMEN DESCRIPTION [facility] INFLUENZA A (NEG) [facility] INFLUENZA B (NEG) [facility] RSV (NEG) [facility] COMMENT [facility] THE [place] FDA HAS MADE THIS TEST AVAILABL EUNDER AN EMERGENCY USE AUTHORIZATION(EUA) FOR THE DETECTION AND/OR DIAGNOSISOF THE VIRUS THAT CAUSES COVID-19.PERFORMED AT [address] [place] [address] COVID19 RESULT (NDET) [facility] THIS ASSAY AMPLIFIES AND DETECTSTHE TARG ET RNA USING REAL-TIME PCR.TESTING PERFORMED ON [employer] Science[employer] GENEXPERTNEGATIVE 2019_NCOV RT-PCR RESULTS DONOT PRECLUDE 2019_NCOV INFECTION ANDSHOULD NOT BE USED THE SOLE BASISFOR PATIENT MANAGEMENT DECISIONS. FIRST TEST [facility] [employer] [facility] [place] SYMPTOMATIC [facility] [place] [facility] DATE OF SYMPT ONSET [facility] [place] HOSPITALIZED [facility] ICU [facility] SET [facility] ID Date Data Source [id number] 02/07/2021 10:17:48 PM EDT [facility] Name Value Range Interpretation Code Description Data Tyra rce(s) Supporting Document(s) APTT 62.6 s (22.0-34.3) H [facility] ID Date Data Source [id number] 02/13/2021 07:04:12 AM EDT [facility] Name Value Range Interpretation Code Description Data Tyra rce(s) Supporting Document(s) POC NOVA GLU 198 mg/dL (70-99) H [facility] [place] PERFORMED BY [facility] CLINICAL STAFF ID Date Data Source [id number] 02/07/2021 05:15:58 PM EDT [facility] INFORMATIONPatient MRN Name Date of Age Gend*PT [id number] Oxana Clancy 1950 70 years F OBSPT Location Admission Date/Time Visit ID Attending Provider02/07/21 1503 --- Jo Molina MD([id number]) EPI ID CSN Admitting Provider [id number] Attestation signed by Jo Molina MD at [...] arm in anticipationof the need for dialysis.Signature: LEA Bensonate: February 07, 2021Time: 5:14 PM --Cardiology History and PhysicalName: Oxana Clancy Gender: femaleDate of : 1950 Age: 70 yearsDate/Time of Admit: 02/07/2021 3:03 PM Code Status: PriorPrimary Care ProviderReferring Physician: Flaquita RIZZO [facility] Complaint: Chest pain and shortness of breath. Poor historian.Transferred from [facility] with a NSTEMIHPI: This is a [...] lower extremity edema or syncope. [facility] She ruled in for a NSTEMI. Troponinelevated to 16.7.Initial EKG 02/06 revealed rapid atrial fibrillation with marked ST depressions inthe inferior and lateral leads with a ventricular rate 114EKG today revealed sinus bradycardia with a septal infarction and STabnormalities in the inferior lateral leads.Transferred to [facility] for cardiac catheterization. On arrival she is chestpain-free.Troponin 16.7 CK 411Thyroid levels normalHCT 33.4/7.3Creatinine 3.7 BUN 94Covid 19 negative 6/9HistoryPast Medical History:Diagnosis Date Cardiac CATH 09/09/2018 09/09/2018 [facility], . 50%dRCA, normal LV EF, moderately severe , moderately severepulmonary hypertension COPD (chronic obstructive pulmonary disease) Diabetes mellitus 09/08/2018 Diastolic CHF 09/08/2018 Essential hypertension 09/08/2018 History of diabetic ulcer of foot, right 09/201809/08/2018 History of pericarditis 10/201811/17/2018 Hx of CABG 09/201809/14/2018 [facility], ABAD to LAD, SVG to LV branch [...] Social Gatherings with Friends and Family: Attends Mosque Services: Active Member of Clubs or Organizations: [...] tablet (75 mg total) by mouth nightly Vedqehintnu-Dsphfpxhg-Qtpyxa (TRELEGY ELLIPTA) 100-62.5-25 MCG Inhale 1 puffdaily [...] Paroxysmal atrial fibrillation: [facility] revealed atrialfibrillation. Since has been in sinus rhythm/SBXarelto on hold. Last dose was yesterday 02/06 at 1999Heparin IV started 8. Presence of bio Magna [...] codeFollows with Dr. Minor as OPSignature: Janet Chavez, NPDate: February 07, 2021Time: 3:42 PM Name Value Range Interpretation Code Description Data Tyra rce(s) Supporting Document(s) ID Date Data Source [id number] 02/07/2021 04:28:40 PM EDT [facility] Name Value Range Interpretation Code Description Data Tyra rce(s) Supporting Document(s) EKG [facility] PAQIHv0iThUODrCyg1RoLzMaUUHbEY4jtnl5C4I6xKZgZ3WeqOFww6kqD0TgQ3BeDXLyMHUTXB0RmFXh jb2 [file] S2d/PHRxf+V9ub/u78J0i2G8arud/Z3fszH+bo+5a+OPO6v/F73V/o7+r2Y70pR5rtDqRr6xX0i3Kwv 155LQ7/i2yWKDF33D/ya8Qwk44N+G/Xb5XdWxxxn2+/ow5Oiju53e/X9jk+/38NZ30wi1WqXT5+N79Bx QN9x/gQF4C3FKyXYEmdvfR2NvVYWy5/++lz0k32GAd bRwkvfnIQQ5w/6TRf6cRAuQ444DDM/Gqt6i3p4wF/j/sqfTfdX+vvpd/jfG/7eb18L/R5/FeWFNvctu7 8T5l03H/3ueuU8/irK/cpz/IGEA6aW8j1F49W8jy/avfCsAGTTlUugwcX2abBsMck2NY+N25i7Eqb83l P99n5zUEqGM6+o7q+9Gc6w19KjzNNAr2/1XIcvDcD5 fjpM66GQsV/6LR4pq9qD67Bq/ZWX3V+21tDDmrth4ytoz530xOwu18wFl23xA5V0616iph+q+6v67lK/ 4Mwu9Ak8jf27SA6pV69306+5JayffyflwcAvGXDPZwfM9cZvpnRC/PXj6KPpr0+Gevs4y4I45Ve5o1+/ E79K9Ypw99m+J/j8u4OyJvAidx1tQ6C2uj3u3XBw80 4Hzwa0/RqLe90ZmpSnIM+x723124/V/dXz7jy/68d0a3TE3OJ/9ORxOvyrdQRgwwxnuqO27sT6K7MtNc XnQfnyuvYU/P36jQZ/9R6V4c2fKw/WhpdNzq7Y/xTX/ZX/+LFX6ADbYhpl0GLnSH+UF/d757PBc3IOs1 6ucuh+/KAR65wGEhdwogAp5Djy/Kp7+cxv8/JCed/y 8Ve+jjibye/fC8qn3/7uJH/46K4xm5Ge5dVD36JLW0jLztc1mgSvkXjVvzc8rI/tlUufWyZc1G/8Vev3 +W0d/Fb97xjPBdz0iVhA7EofH5uRd4bTmqkyy594Lyn1lo3iMFnbWM5j0Vgp+Y+Aw79jnP9kmCXJQnRy 6/0U7m575OJ+y99+u+t4/SYz2n8g9jYmy2pIveb5/Z T1vebXT/yqOb+apx3nV/5351fD/60mhE1y72RQtp/aibhBzfj98Tnu52F/P1QV01rnnzKaqP+PQV47zT 1+52T26DtqD/259tyf+/1pYU7194i+55WczjhynaW1H+X73u/P5Rsd/AzWG2Gzl57H2yak52pBvYl2rC /y5sEwgfhM/pBS4rVtGEnMkZ+GubR6Dm/J1ofJgf/9 d9uXt/q3bTexN1Rna7jk+ZXKHdcMlE+/08un3+XLt353p3vvb2Y0k048C5/e/pU4xk8Fhlm9F8kUjLBt +wtws87l85MggAS+DuNEmsflr1Xzu0Otm/Le40PRhloyalTr4zonrCVfASyrPW9zCdM8QCK9IJT8IbhQ Oe6LsI+7RIbdTrA7qUEOGGhTJXON9HPe2EXfPYgiQO ZsNzd86qw/X+h3od+FBxgOq6+4WG5wkifffje1mmyz3+d4vm7Ci/++80T4i8DlDPt8LbC28a+jfWOcsS YtXKV9f3vwbnO2eMc7Vj0dpimHe10NWbc1zaOm2st5hbf/A9ZLx79H7HCC+v7omScqhxyHD6uY09/8fe Eh16KUav5GFahKS2kYmuD0RO5bvWG4E/rZ93TMBrWe eCexbQcFI0XQF9gxbvkTU2n4CKnsMUjgeOs3V4NVX7dqdC24iL5QAZ1fQYq7M3YSSwVVqJdECzVn32Gh 6A/KGGcsCAc+LE0cQKbGCErYHbugS+B8iUTVU1OtE9JpoXxsR6TF9DtclUQoJYX8VsM597H8fB6iT360 jmZFGc/D3IwR3Ir31Lyx85sB/GPdF//AB/eBBeHAgn Dgg/zJcuC9xRK3uYlT9FJWrmoO5fc+YDjl/aBsKJ9+u2+9HdJiqxkoKzy7aABz1MofT/ye9IboSk/BAG MACHINE OPERATOR [file] evp 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/vMzmXqu+H5H2Y276N3E1Uirn2j9y83+ZKLvlf/8 [file] vYjtWGjkWQCJlQCJVFNwJrENAGmbZzxkbSlpFZyDxV ecDNCQsZKGlh21vZgDnbgAeata8Jnj22rLtYs81zI6mdURCrmeTIfpNpQEp5inJLSXENTIBn4E5To4iZ NIkDBUhZFxKNGItBEB0vJxoHGHYzxVLWGOxpOmeUNTJpqXkeGfrdSbMkEIG+1FGaMt0eRaRJvgDFQzOX XfXXAw3aranEu6Evy2xgtFykx6vvnCsamp+JHqjneb yYIzles2lrNot15lOmu9OpmVjZbIu3ZDce9Lt95/udtF948Wp51Hohe9F9gc1N2kcoVJKu53Axi/R+UV 6ciXQ043MRH4jKjCwvihcq2zf1BmdtzHaylz+CLgOM4CaLvzKiXv2Zyiwafaa6ygQF8Ga3VGT6Xi7IWe Rf4qDtL5TpkStHXwBJI/QViutYjmydiZAJBdXpFdXZ 94DVqivO94JN/9Vsy4hQ40KScdVlmk9hZHHyxZZcOy+Ws8SyGNqof3DDsRh1go3clipy49BE+3Rof+52 3+i02VPf1un78jhm+8+Bx1jZ3nmMG+LE69D0MNh60iwZ72Dvm5TYqgDx80G0t/nyd4woFp/jmyO7Mg4l Agustín/ML4P0d8hX9/+uqcw3oovje6mE+8eXl0/nt+8uL b83etwa/3dd4/Xt1fL/fWU0j2cL7eq2pXOanZerW7g0YX06kc05y5iX67tA/5wcX5/eX2+fH/9+HIJD4 /M5cIW81uFe/xY33aRU2tEc/wBWdyv4lHt/mt5XL4/f306/8vbu/tvzm+uH3/7iUc5v489wym1B54kz2 k5f3w0g4i7C35Vzy1wWt00f66+oDDN8tgKr9lazZ4d [file] MDAwMDUyMyAwMDAwMCBuIAowMDAwMDAwNjQxIDAwMD RjEI3oUmVyXPEfNGZ2HLVsJSJpEWRfdsNNZCBsQUBbLTn5QGIlWZCoJFOyTVvdATRwDGKhQYO0LWHwME PcEJ6mBnFrQATaYZOzKTMkQUPyERDrraPSTSMdTHGbPAH2XZNiDGCtWCQlXBqiTOLvRHNiCix6GQRgWW QgBL2fIpXxDOKuLHE4MDBdTUHwXUXjfmYCLBStOLW2 SWv9GIJvAPBjVGGjNLhnDUThWVEaQhA3QNTzFMVtSX0cTwQgYRHgOVT9JjNxIQOhMZYkygQVYYBfPHWg DWI3FaJiJYWoFFGiSDylQGMnTEPuPOSlQFD4WSL3NBJwHiDfXMdnGDBRZCvTF4ShyxPnByAFE3acVc0s UjUwCPNCB5Kpa1LwJZYxFZRQAs6+TiH9OOI6fCGrAhp3RBY0OAfcVSKXDb== ID Date Data Source [id number] 02/07/2021 07:05:38 PM EDT [facility] Name Value Range Interpretation Code Description Data Tyra rce(s) Supporting Document(s) WBC 8.0 10*3/uL (4.1-11.0) [facility] [place] RBC 3.58 10*6/uL (4.00-5.40) L [facility] HGB 10.4 g/dL (12.0-16.0) [facility] HCT 29.8 % (36.0-47.0) [facility] [place] [address] [place] [address] MCV 83.3 fL (80.0-95.0) [facility] MCH 29.0 pg (27.0-32.0) [facility] MCHC 34.8 g/dL (32.0-36.0) [facility] RDW 15.2 % (10.5-14.5) [facility] PLT 133 10*3/uL (150-450) L [facility] MPV 9.1 fL (7.1-10.7) [facility] ID Date Data Source [id number] 02/07/2021 06:19:10 PM EDT [facility] Name Value Range Interpretation Code Description Data Tyra rce(s) Supporting Document(s) CKMB 28.7 ng/mL (0.0-5.0) [facility] ALERTED CRITICAL RESULT TO TO [facility] IN [place] ([id number]) ON 02.07.21 [place]17 [place] [id number] CKMB RELATIVE INDEX 8.0 {index_val} (0.0-4.0) H [facility] ID Date Data Source [id number] 02/07/2021 06:08:53 PM EDT [facility] Name Value Range Interpretation Code Description Data Tyra rce(s) Supporting Document(s) TROPONIN I 15.00 ng/mL (<0.05) [facility] [place] Less than 0.05: Myocardial injury unlike lyGreater than or equal to 0.05: Highly suggestive of myocardial injuryCorrelation with rise and/or fall ofserial troponins, clinical symptomsand ECG changes is necessary.ALERTED CRITICAL RESULT TO [place](1279)[place] [address] ON 02.07.21 [place] 1807 [place] [id number] ID Date Data Source [id number] 02/07/2021 06:08:53 PM EDT [facility] Name Value Range Interpretation Code Description Data Tyra rce(s) Supporting Document(s) SODIUM 136 mmol/L (136-145) [facility] POTASSIUM 3.4 mmol/L (3.6-5.2) L [facility] CHLORIDE 97 mmol/L (100-108) L [facility] CO2 32 mmol/L (22-31) H [facility] ANION GAP 7 mmol/L (7-16) [facility] UREA NITROGEN 93 mg/dL (7-24) HH [facility] ALERTED CRITICAL RESULT TO [place](1278)[place] [address] ON 02.07.21 [place] [address]07 [place] [id number] CREATININE 3.71 mg/dL (0.60-1.00) H [facility] BUN/CREAT RATIO 25.1 RATIO (10.0-20.0) [facility] GLUCOSE 273 mg/dL (70-99) H [facility] CALCIUM 9.1 mg/dL (8.4-10.2) [facility] GFR 12 ml/min/1.73m2 (>59) L [facility] GFR ( AMER) 15 ml/min/1.73m2 (>59) L [facility] GFR INTERPRETATION [facility] --NORMAL KIDNEY FUNCTION OR MILD DISEASE - GFR >OR= 60CHRONIC KIDNEY DISEASE - GFR 15 - 59RENAL FAILURE - GFR <15 Est. GFR calculation based on the MDRDstudy equation, which assumes a steadystate for creatinine. Est. GFR should notbe used for medication dosing. ID Date Data Source [id number] 02/07/2021 05:57:58 PM EDT [facility] Name Value Range Interpretation Code Description Data Tyra rce(s) Supporting Document(s) NT PRO BNP 80185 pg/mL (0-125) H [facility] [place] [place] ID Date Data Source [id number] 02/07/2021 05:57:58 PM EDT [facility] Name Value Range Interpretation Code Description Data Tyra rce(s) Supporting Document(s) CK 358 U/L (26-192) H [facility] ID Date Data Source [id number] 02/07/2021 05:28:05 PM EDT [facility] Name Value Range Interpretation Code Description Data Tyra rce(s) Supporting Document(s) HEMOGLOBIN A1C @ 7.9 % (4.0-6.0) H [facility] Performed using Siemens [place] immunoassa y.Care must be taken when interpreting LgF4akcmwegv in patients with a hemoglobin variantor decreased erythrocyte lifespan. Values 5.7 - 6.4% suggest prediabetes.Values >=6.5% are diagnostic for diabetes.REFERENCE: DIABETES CARE 2018: 41(S13-S27).PERFORMED AT [address] [place] [id number] EST AVERAGE GLUCOSE 180 mg/dL [facility] ID Date Data Source [id number] 02/07/2021 05:13:38 PM EDT [facility] Name Value Range Interpretation Code Description Data Tyra rce(s) Supporting Document(s) APTT 25.5 s (22.0-34.3) [facility] [place] [facility] ID Date Data Source [id number] 02/07/2021 03:21:50 PM EDT [facility] Name Value Range Interpretation Code Description Data Tyra rce(s) Supporting Document(s) POC NOVA GLU 312 mg/dL (70-99) H [facility] [place] PERFORMED BY [facility] ID Date Data Source [id number] 02/07/2021 01:37:00 AM EDT [facility] Name Value Range Interpretation Code Description Data Tyra rce(s) Supporting Document(s) SARS coronavirus 2 RNA [Presence] in Res piratory specimen by ALLAN with probe detection NEGATIVE [facility] This lab was ordered by [facility] a nd reported by [facility]. ID Date Data Source [id number] 01/23/2021 04:14:55 PM EDT [facility] Name Value Range Interpretation Code Description Data Tyra rce(s) Supporting Document(s) Discharge Summary [facility] HYQBLw9yDmVXHbBi68/PBTthIHPrt0ToPAmwJGz2SCdsUQGzN6DdAAN1qI5tENA0PEbBEeAmKbZxMXC4 lbm [file] AgICAgICAgICAgICAgICAgICAgICAgICAgICAgICAg ICAgICAgICAgICAgICAgICAgICAgICAgICAgICAgICAgICAgICAgICAgICAgDQogICAgICAgICAgICAg ICAgICAgICAgICAgICAgICAgICAgICAgICAgICAgICAgICAgICAgICAgICAgICAgICAgICAgICAgICAg ICAgICAgICAgICAgICAgICAgICAgICAgICAgDQogIC AgICAgICAgICAgICAgICAgICAgICAgICAgICAgICAgICAgICAgICAgICAgICAgICAgICAgICAgICAgIC AgICAgICAgICAgICAgICAgICAgICAgICAgICAgICAgICAgICAgDQogICAgICAgICAgICAgICAgICAgIC AgICAgICAgICAgICAgICAgICAgICAgICAgICAgICAg ICAgICAgICAgICAgICAgICAgICAgICAgICAgICAgICAgICAgICAgICAgICAgICAgDQogICAgICAgICAg ICAgICAgICAgICAgICAgICAgICAgICAgICAgICAgICAgICAgICAgICAgICAgICAgICAgICAgICAgICAg ICAgICAgICAgICAgICAgICAgICAgICAgICAgICAgDQ ogICAgICAgICAgICAgICAgICAgICAgICAgICAgICAgICAgICAgICAgICAgICAgICAgICAgICAgICAgIC AgICAgICAgICAgICAgICAgICAgICAgICAgICAgICAgICAgICAgICAgDQogICAgICAgICAgICAgICAgIC AgICAgICAgICAgICAgICAgICAgICAgICAgICAgICAg ICAgICAgICAgICAgICAgICAgICAgICAgICAgICAgICAgICAgICAgICAgICAgICAgICAgDQogICAgICAg ICAgICAgICAgICAgICAgICAgICAgICAgICAgICAgICAgICAgICAgICAgICAgICAgICAgICAgICAgICAg ICAgICAgICAgICAgICAgICAgICAgICAgICAgICAgIC AgDQogICAgICAgICAgICAgICAgICAgICAgICAgICAgICAgICAgICAgICAgICAgICAgICAgICAgICAgIC AgICAgICAgICAgICAgICAgICAgICAgICAgICAgICAgICAgICAgICAgICAgDQogICAgICAgICAgICAgIC AgICAgICAgICAgICAgICAgICAgICAgICAgICAgICAg UPXlMPVeULUyWCFmLGBpEWFvJZNeVJXzRGXhWEVjKGCcNOHxHQFcTXUdRWLlKEFgHNCxGQXqFWk7U9qn ZGZbQANzQI2hEEs2Vw6+XUuYLcRaAOH4eiRmbB8BIV9yk8AvJTinFKPes3ZhUOg2GZ7GQVPgKHkuVM7J CRzyqu6GEFPwUEOutNQQc0qeBbOcLVD3ITJtJfkiDT 4XCEKxT3ofgsZzJFUkTLFQMHgySXVBPTkiYKIIIHRhCDBsZuZgRlAdKYAiSPNlKWPAII2ISvEdA9XlgX 04WFPDUy8+UUmzzcRpHvrCWnObLTRew6OpKMg4IZ0WWFHuTqgxy2WfClLlJWOJRHdlQK8XKRJ1AVRmNV ArYl7KVDLpR703faCmAL9LNt7KCtSzEB3yci9ITqMl VHTmEhoODwo3ZSueBC7XeWGtKVbZhLWlpVXrJ1WwG9XgdBQkhGHhlUJBWNd8EXSiUcSZrH3xWXKlOEBZ ROFhwNV7OaOhYdNlCrHlYQG7HzOuGQ5oZHdmCG3FGXL3ZVejHOTsXKTrJ7zHVyUdYLHzDaYhtNlzON4X WcXxU1EpxrLgmLTrXBIqPQBZNp8+DQplbmRvYmoNCj OiESLsh5JtPPy4DV1PDOZzWRffRE2YSHIebW3wIYqfLG3IWoYeEYInFRYZUmCpF80nvJDoBPp8P1NlBw VkZGVkRmlsZXMgPDwvTmFtZXMgWyBdDQogID4+ID4+QWigPR1MGFfqwpReCTEjVp3HJOQhDBLhFA7cKT CjHSOkT5S3eSdwWMVNRqPaF5mznfmqEG8kXWExR510 yWwlpjKrTSIuRBXdUc2UOHKxFKX0IOQocRTqVnobCTKAAMsdYM0CoKAeZVT7xI1oPLmuQHLhIUMfY9oR XmRhsKkmSH53cIrfyeJlgOLtGYn+Wl4MNZ8mj2PpWJa2tjVpTCagWVIkELidJLVlRLXfSOJtEUE8YET9 UNYOFyQfMYItAXIdYQdnJWKlQHEjts8YEBKbWHNuPW pjXkRvWBZySQYuNVktJESeRZI2GSC9KERhCVVuPT5JEiQsVXXwKIYcBJcmQTOxPRIvyc9NBYAvYZVqRT F9LHKgJAJlISKlZPoqGOGcMBD4CSu4QFJgNQXuZX4BRbPhGGNdJSpvURahNGKfHCAtbu2YFQRjMWXnIL NxDRVrYSXbGJVfEBsfQADnUIRjAEW6EUAxZAGgNK1E TlTmLWZzCCJkWAigVPTpSFZzfn5KLELcRKCpIYLxKRClKXVlHAMlKDliPZQeVWO5OwXxJXZzBEHbOL8O QxBhMDKxRVbcXgXaYZSaNOEuxb1BUDRyTRKaMNG9PFZjULNoAJHkHJbwAOSjDMJ8RRs3RJDlLDSzYF7O VcLiJCCiVAwiJVOhVQHyDWYyxe8QUERbBYGiGZA4VD BeSVLnWVMoGZusADCsXNMaCGKrCMVkWRSdOO8XUjFwSLOmEhF5HrYkYUIfQNXsfz9XCHIqKYCkLRX5XM UgTBXkKIVcSSisAMLzMICfBcm1FXQmDJLoOJ6PIzVsALMzCwV0POCuKKLfPJGphm8SJRVgEOTnUdl5MI GeMEClVBJxLZxmDYWmZIXcUAVmZKJaAVSqSO7GKeQq SVBnMfOrCpJkKWDoRYTfnv6RESXoXIMwHCY7BIKsXFMoBMAwXLqcMARoQCJ0IZp4UUByJZNqWK8WPmNc UAOwWyB3VxneXTEnMSIphu7QFZEuIWGxNBUtPOFnNZPnFXStZYucDSHlQYC4SFfqWCBiSDLhIU2LWvGy UMKwVzO0KfCqVUMfSAXmhh3EHUDsFUZpJjttQXJzWS BvVCThTEt9hfElhCHjXNy7MJ1FY3PdtuOrFtEITr7Cx706LUHbWOOaWb0JK8maNv8rADAaEDWYCj4SSY b7YDT2ERHrR1J2DbWwKsNwOYZ6LdK8XYCoSuCvQRA5SfP+OWngEEPjTXZiAVVtZVMeNFYiZzw3QeE2L9 H1FLStXdYiJc8yICHDAf6+MQmfbLIlgTrvNUFAGsI4EFY9KKgtJGHWDt1U ID Date Data Source [id number] 01/19/2021 01:50:00 PM EDT [facility] Name Value Range Interpretation Code Description Data Tyra rce(s) Supporting Document(s) Consultation [facility] RQPRIl6aDnLBFeGg98/VIUeuDHGcu5HqYJkjXAj1WJeeFPKxU7NlFPP0hX6uHCM8UEsBQzSlNpYwLDVq lbm [file] DQogICAgICAgICAgICAgICAgICAgICAgICAgICAgICAgICAgICAgICAgICAgICAgICAgICAgICAgICAg ICAgICAgICAgICAgICAgICAgICAgICAgICAgICAgICAgICAgICAgICAgDQogICAgICAgICAgICAgICAg ICAgICAgICAgICAgICAgICAgICAgICAgICAgICAgIC AgICAgICAgICAgICAgICAgICAgICAgICAgICAgICAgICAgICAgICAgICAgICAgICAgICAgDQogICAgIC AgICAgICAgICAgICAgICAgICAgICAgICAgICAgICAgICAgICAgICAgICAgICAgICAgICAgICAgICAgIC AgICAgICAgICAgICAgICAgICAgICAgICAgICAgICAg ICAgDQogICAgICAgICAgICAgICAgICAgICAgICAgICAgICAgICAgICAgICAgICAgICAgICAgICAgICAg ICAgICAgICAgICAgICAgICAgICAgICAgICAgICAgICAgICAgICAgICAgICAgDQogICAgICAgICAgICAg ICAgICAgICAgICAgICAgICAgICAgICAgICAgICAgIC AgICAgICAgICAgICAgICAgICAgICAgICAgICAgICAgICAgICAgICAgICAgICAgICAgICAgICAgDQogIC AgICAgICAgICAgICAgICAgICAgICAgICAgICAgICAgICAgICAgICAgICAgICAgICAgICAgICAgICAgIC AgICAgICAgICAgICAgICAgICAgICAgICAgICAgICAg ICAgICAgDQogICAgICAgICAgICAgICAgICAgICAgICAgICAgICAgICAgICAgICAgICAgICAgICAgICAg ICAgICAgICAgICAgICAgICAgICAgICAgICAgICAgICAgICAgICAgICAgICAgICAgDQogICAgICAgICAg ICAgICAgICAgICAgICAgICAgICAgICAgICAgICAgIC AgICAgICAgICAgICAgICAgICAgICAgICAgICAgICAgICAgICAgICAgICAgICAgICAgICAgICAgICAgDQ ogICAgICAgICAgICAgICAgICAgICAgICAgICAgICAgICAgICAgICAgICAgICAgICAgICAgICAgICAgIC AgICAgICAgICAgICAgICAgICAgICAgICAgICAgICAg ICAgICAgICAgDQogICAgICAgICAgICAgICAgICAgICAgICAgICAgICAgICAgICAgICAgICAgICAgICAg OCCdWSEbTSQsIUSyXILaICWoXSHjKRSoFRBiLDJdQQUhTVXsTYRaLJOpJTItDPMmFHIoJMo8U9mmXFZr ZRHhUX7sLGv1Xm9+ITfMSeVaSSC6miFeiT9HNJ1ox6 YkBUlkWOVrp0JaKJi2GN1GNWPkWBoiIV8WZNlzwb7IYZIxYCBphGURs6agHhKpGLE4ZYVtXeqwUY3UJB XdM3qrtiLfXJZiLHMXCXmnVFCUKTscTIQEXORbWEJrCgMmWoEsCNPdQZFeZIZRFH2TFlDaI6GpmP37QR YNCj4+DDuewhYaAabRQvJ9SJFha6TwTFi0VB1BCMVi Xvgvm3PqOguwNQJPJNshUE4KQDJ3IIB4FZQtWx9NSRLkE187ovPwLW3LLp7YRgPyPX2vjb7KThnoLBSb SlwRNto9KTilHV6ItIUnIYrSg26unIq4aoZcfWMWxTVdZMMjWAgzSPDxJAWOQLOcrDC7RxU3SgNrKoDo BWA8EIktNV0xLAttXV6XOMB7SYvnAPWyNYMkB5lATf XpMHWhUfQciIzyOY8EPyOaX0TmvpWxaFMzGHJzZZDQYy3+HUfnjhPqRnrREeAaQVKrn8CpCIh2NU9VOE FuPCeiAL3ZFXOtfY4qZXnkZT8RQbIiTqYnJPDIYdJtM64oeUZbMHh4X5NgFyYnKFRzAmqdGDCsFUmuHx FtZXMgWyBdDQogID4+ID4+XVjoTP1WMYwaecTuIBXt Zi6TCRXqVNItJJ6xJJVhRPBdA1F1iTkaTZVHYvGbW6fdniqiVN3pQCEjE710gBlakgGkKKM9CJWnBj0B PSMqQGM1ARPbvUObWeujLQIXFAeeIX9FpXGnKQI7nX2dDEacZHZiIAQyP8oWQvGdbIbtNX25gAwxwqQt bCBdDQo+Vw6ABD6li4DwSKm9lqHdVJfdHGIgOFlvYC PwDSNdADBuJTI6ZQA3AORDUsFoBWAnXUZnTHnlENTmVIRkqk2FQJNqHLWpLxk5TJJpSTFoSHXmMEuxIB WqFEV3YgF4FMYxOKVzWY1FBoGqDYZoSKPdKRnmMSBaIOXuwk2UYRIcZUAyIqe0WvRmPXWaIGLvYLznXF FbTZXyDKNnNWXcMOLjOG1HFfKnSCEzZHN8DhctFAGu JBKpry4DAKUaKILyIfk4LPInZHBjWRKaSSspAUJkLZL0NYm3IJPrETZjCH7ANrOnXIKiNFg3YRRfEGUy USFtaj7IXKVeGGFeQbK4ZLXgSCDlGOIjZXemDOEiYIPjLCG8NFZhDHIaEH0ISlLeFCShMYL7XuZuMJFs ENAcot2YYOOdKRYlOoO8DJAxVJGjTSNzCRekZRGdFR F9SjHxEBZjKHUuKW6LVdVjHUAkEAh5YXZsLDSjKOUtza2BSQAxKPXlYUz4RiXkVXMpNQGsNQwsNFBiDJ E9LInoMLTkXFGeIR7ZHnVzKQYsDSpeGRTpEPMmLBHemc7JOCPyGHGyTIQkBRXjAHTwDCBgVBrsELWaOM QuJaP3YDScHSNwAQ4GIdVaSUPgPpI4MXOhHTAbLWWx ce8XMCGzTGThAFJ7MXTsLUYmYIMbETuaYMIuTRSzUjOhRKKbYVIoFB2RLrYtFCBjMpB7VTSgKBHfQKUb fe0IEJFbYRUyUxbmAYJgHXSoAYIhDPplQIRdSGEuYHM9NASwZLJxGQ4KBhNrETBzNlQwNPAoESCpVQWp nj0HHRVcRZUsVMI2XeIlUWReGCLvTRazZVXyOYW3Pa IwQFMcFGQeQV7LKvUnUIDaGxK0TUOjQMYoCFBige7FOXOsSMOlLJenUJMhHWBtRGZlCXnlREEvCCN1Wb SmIFPuELNrQG9JNwCwUSTuNlT4DgLeCTOkIPQkxb0IATGyGGDcEzfjSPPvIPToLCPtPTfgODEcLTF3LU N9MPJeHZJiNP5VKaHiICGkCbfyMAFwORYmKYHahw3W IYCdRWZhEFj2EkDfWNVkDBJtLDkpDKHaJMA6IBH6WHUqBXUyBJ3WJlFoOWPtEdu5ZBPaXHMuAARrrc5X dXLuaYrmyw0ZWLzAGy8JvFocYZRdXOrmMi6zwAL5NAOfCYRQFz1VibOxZHXkYDUQGEffCPQbQPFbV8Ck YMQ0Jvo9KWI2E9YbSJAcLXL5ZaX2BiSoFfZ5EoU8AN H8QGFdYHMmVXA0CAxfMLHlZgFaLluqNQuuMOTaGBQ+AC9pSRt+Pd3Kl2AbieA5frRvYPrdRVRfYE0BWW QRM7WDKx== ID Date Data Source [id number] 01/19/2021 01:10:15 PM EDT [facility] Name Value Range Interpretation Code Description Data Tyra rce(s) Supporting Document(s) Glucose [Mass/volume] in Capillary blood by Glucometer 133 mg/dL 70- 140 [facility] ID Date Data Source [id number] 01/19/2021 10:13:00 AM EDT [facility] Name Value Range Interpretation Code Description Data Tyra rce(s) Supporting Document(s) SARS-CoV-2 RNA (specific gene not known or reporting a single result based on a combination of tests 2018 nCoV Real-Time RT-PCR: NEGATIVE [facility] This lab was ordered by [facility] and reported by [facility]. ID Date Data Source [id number] 01/22/2021 09:02:49 AM EDT [facility] Name Value Range Interpretation Code Description Data Tyra rce(s) Supporting Document(s) Specimen source [Identifier] of Unspecified specimen [facility] SARS-CoV-2 RNA (specific gene not known or reporting a single result based on a combination of tests) 2018 nCoV Real-Time RT-PCR: NEGATIVE [facility] Assay Performed [facility] Negative results do not preclude SARS-Co V-2 infection and should not be used as the sole basis for patient management decisions. Patients first test for [facility] Patient employed in healthcare setting [facility] Patient has symptoms related to [facility] When did you start to experience these symptoms [Date and time] [Phen X] [facility] Patient was hospitalized because of this condition [facility] patient was admitted to ICU for condition [facility] Patient resides in a congregate care setting [facility] status [facility] ID Date Data Source [id number] 01/19/2021 09:15:28 AM [facility] Name Value Range Interpretation Code Description Data Tyra rce(s) Supporting Document(s) Glucose [Mass/volume] in Capillary blood by Glucometer 196 mg/dL 70- 140 H [facility] ID Date Data Source [id number] 01/19/2021 06:39:03 AM EDT [facility] Name Value Range Interpretation Code Description Data Tyra rce(s) Supporting Document(s) Leukocytes [#/volume] in Blood by Automated count 10.1 10*3/uL 4-10 H [facility] Erythrocytes [#/volume] in Blood by Automated count 3.51 10*6/uL 4.1- 5.3 L [facility] Hemoglobin [Mass/volume] in Blood 10.0 g/dL 11.5-15.5 [facility] Hematocrit [Volume Fraction] of Blood by Automated count 29.0 % 3 6-45 L [facility] Erythrocyte mean corpuscular volume [Entitic volume] by Auto mated count 82.6 fL 80-96 [facility] Erythrocyte mean corpuscular hemoglobin [Entitic mass] by Automated count 28.4 pg 27-33 [facility] Erythrocyte mean corpuscular hemoglobin concentration [Mass/volume] by Automated count 34.4 g/dL [facility].0[facility] width [Ratio] by Automated count 14.7 % 11.5-14.5 H [facility] Platelets [#/volume] in Blood by Automated count 227 10*3/uL 150-400 [facility] Differential cell count method - Blood [facility] Neutrophils/100 leukocytes in Blood by Automated count 76 % [facility] Lymphocytes/100 leukocytes in Blood by Automated count 12 % [facility] Monocytes/100 leukocytes in Blood by Automated count 8 % [facility] Eosinophils/100 leukocytes in Blood by Automated count 3 % [facility] Basophils/100 leukocytes in Blood by Automated count 1 % [facility] Neutrophils [#/volume] in Blood by Automated count 7.79 10*3/uL 1.8-7 .0 H [facility] Lymphocytes [#/volume] in Blood by Automated count 1.23 10*3/uL 1.2-4 .0 [facility] Monocytes [#/volume] in Blood by Automated count 0.76 10*3/uL 0-0.8 [facility] Eosinophils [#/volume] in Blood by Automated count 0.31 10*3/uL 0-0.5 [facility] Basophils [#/volume] in Blood by Automated count 0.06 10*3/uL 0-0.2 [facility] Nucleated erythrocytes/100 leukocytes [Ratio] in Blood by Automated count 0 /100{WBCs} 0-0 [facility] ID Date Data Source [id number] 01/19/2021 06:53:53 AM EDT [facility] Name Value Range Interpretation Code Description Data Tyra rce(s) Supporting Document(s) Bicarbonate [Moles/volume] in Serum 26 mmol/L 22-29 [facility] Chloride [Moles/volume] in Serum or Plasma 95 mmol/L 98-107 L [facility] Creatinine [Mass/volume] in Serum or Plasma 2.17 mg/dL 0.50-0.90 H [facility] Glucose [Mass/volume] in Serum or Plasma 227 mg/dL 70-140 H [facility] Potassium [Moles/volume] in Serum or Plasma 3.3 mmol/L 3.4-5.1 L [facility] Sodium [Moles/volume] in Serum or Plasma 135 mmol/L 136-145 L [facility] Urea nitrogen [Mass/volume] in Serum or Plasma 58 mg/dL 8-23 H [facility] Anion gap 3 in Serum or Plasma 14 mmol/L 8-15 [facility] Osmolality of Serum or Plasma by calculation 303 mosm/kg 275-300 H [facility] Creatinine/Urea nitrogen [Mass Ratio] in Serum or Plasma 27 [facility] Calcium [Mass/volume] in Serum or Plasma 9.5 mg/dL 8.8-10.2 [facility] Glomerular filtration rate/1.73 sq M pre dicted among non-blacks [Volume Rate/Area] in Serum or Plasma by Creatinine-based formula (MDRD) 22 mL/min/1.73m2 >60 L [facility] Glomerular filtration rate/1.73 sq M pre dicted among blacks [Volume Rate/Area] in Serum or Plasma by Creatinine-based formula (MDRD) 26 mL/min/1.73m2 >60 L [facility] ID Date Data Source [id number] [facility] Interpretation Code Description Data Tyra rce(s) Supporting Document(s) Glucose [Mass/volume] in Capillary blood by Glucometer 308 mg/dL 70- 140 H [facility] ID Date Data Source [id number] 01/18/2021 05:37:19 PM [facility] Value Range Interpretation Code Description Data Tyra rce(s) Supporting Document(s) Glucose [Mass/volume] in Capillary blood by Glucometer 157 mg/dL 70- 140 H [facility] ID Date Data Source [id number] 01/18/2021 12:33:20 PM [facility] Value Range Interpretation Code Description Data Tyra rce(s) Supporting Document(s) Glucose [Mass/volume] in Capillary blood by Glucometer 229 mg/dL 70- 140 H [facility] ID Date Data Source [id number] 01/18/2021 09:10:33 AM [facility] Value Range Interpretation Code Description Data Tyra rce(s) Supporting Document(s) [facility] XVGAVx9qTzQGIgYz62/GEQozTAMvk7BgBDebPZf5JUrcTBFaH2CwBGL1wU4rFAU6WXjAAyBuCxEuGKXq [facility] [file] 2k8/0FH6h/QJRuPzbJhJNE29OFEzrnrTjtjH3mf6xTOHH3U4b9tIr/Wp+h79Q+D8zbQotVi/ckP9g/PATTERN DUPLICATOR [file] ICAgICAgICAgICAgICAgICAgICAgICAgICAgICAgIC AgICAgICAgICAgICAgICAgICAgICAgICAgICAgICAgICAgDQogICAgICAgICAgICAgICAgICAgICAgIC AgICAgICAgICAgICAgICAgICAgICAgICAgICAgICAgICAgICAgICAgICAgICAgICAgICAgICAgICAgIC AgICAgICAgICAgICAgICAgDQogICAgICAgICAgICAg ICAgICAgICAgICAgICAgICAgICAgICAgICAgICAgICAgICAgICAgICAgICAgICAgICAgICAgICAgICAg ICAgICAgICAgICAgICAgICAgICAgICAgICAgDQogICAgICAgICAgICAgICAgICAgICAgICAgICAgICAg ICAgICAgICAgICAgICAgICAgICAgICAgICAgICAgIC AgICAgICAgICAgICAgICAgICAgICAgICAgICAgICAgICAgICAgDQogICAgICAgICAgICAgICAgICAgIC AgICAgICAgICAgICAgICAgICAgICAgICAgICAgICAgICAgICAgICAgICAgICAgICAgICAgICAgICAgIC AgICAgICAgICAgICAgICAgICAgDQogICAgICAgICAg ICAgICAgICAgICAgICAgICAgICAgICAgICAgICAgICAgICAgICAgICAgICAgICAgICAgICAgICAgICAg ICAgICAgICAgICAgICAgICAgICAgICAgICAgICAgDQogICAgICAgICAgICAgICAgICAgICAgICAgICAg ICAgICAgICAgICAgICAgICAgICAgICAgICAgICAgIC AgICAgICAgICAgICAgICAgICAgICAgICAgICAgICAgICAgICAgICAgDQogICAgICAgICAgICAgICAgIC AgICAgICAgICAgICAgICAgICAgICAgICAgICAgICAgICAgICAgICAgICAgICAgICAgICAgICAgICAgIC AgICAgICAgICAgICAgICAgICAgICAgDQogICAgICAg ICAgICAgICAgICAgICAgICAgICAgICAgICAgICAgICAgICAgICAgICAgICAgICAgICAgICAgICAgICAg ICAgICAgICAgICAgICAgICAgICAgICAgICAgICAgICAgDQogICAgICAgICAgICAgICAgICAgICAgICAg ICAgICAgICAgICAgICAgICAgICAgICAgICAgICAgIC YwLPOuLOYmNMJfZXTlLLTfTQLgAYQrLRWyHZQrGDTkLWYeERUeNTCbXTZeOHq1R2mjVGWySPVgWY1pDM d3Jz8+KUkBPnIbDAL6qvKhhA0AAT2oq1IoJXebSUVgs7HfNUn2MP8SMCYaYIncDM9HVIfoqn6BVPLkNV MlqOWIi0zjMfCyMPZ0HAPeNqhkSX9GUFQtA3mowzMg MEPvDDZKLZdrQXATSYswLQAGVXHsAGIoDhObNrNbKXHhMYYvOXTAHBB0VTAtJyYdJMqtIR3Vq7DffIX5 DQo+Rb3SFC8fs1HhMZj0RsOnGI7aqi1MXDvKMnZiP9UwzsN9VUMlXNJgQj6LEKQwZAOiyQX8LhPrFUPR XuXxR0HqfI61BHXRAx1+DQplbmRvYmoNCjQzIDAgb2 DuRPa7JF8WERUlEPz4nWKeH48gs5QkaIToOyvuSxEaTETWE6vyiszbPZMWVVAnyHW9RwY1DhKkPyIaIV T2YWvtVR1dBNlwLT5KGLO2FRnwDXZvTWAtQ6fCWjWnZBQhEyXugKgaVL2HMsYsU8LatkSncFI0AnQiTJ INCj4+MMbzvvCuFmuJXcB1YYXyx0MpTLp6FN7JVOSt REheBH0AXBIteK3gUZzuZR0NCdD6XRRiBNIHPwQvK07nzQEzDEn4Y1OiGoLyPSCcAkpxBXSlUFzcSmMn ZXMgWyBdDQogID4+ID4+FScrTK8MXGfwnqVpAMRlOm6GEKPsUEDhCB8yTLDrXUDhS0N4mLlxJBFRLfGx U5pbfhocDF4jTDCkH743nJxrozIxPTYmRWLyYk9PIO DgFKH1HFCwkXEaHQMvXVUNEQdtQX2QbRDbVJB3aK4bXVizWGDnGRXtS1qBDpUxdFdbSE71oAxyhqBxrM BdDQo+Vr8DXE1qi8YtFUb3trIjVZgvGFB8DRrxGXZyBPGcYYHuAJS6NZW3MOFTHnJrJCBdZIOlIHqoJZ KiNCBoiu4JTCHgUKG1AOFeJQDsRFEoWHIaOVwlUKNi BBX5WYrhSZZvEARfYG8XWvSmQBNzEWDuUNhlSGMgIQCybs6QVZElYXGpNtm8QnKwBZYyPSBkLAlnGMPl GHP1IMQgLVTtCROhRF5QIaJfHLCjDMH9ZdOvOWLtWXGigf3VMYHyCCSsEbjlWnJaRDBqFQNdJSwlMXXg TLMvYiS0KCJqMMIyOC2HTfAtKGNrXAR6HZiiYUXgFQ Klsj2JKJTbMSFeDhS4ZPVuOSYzSJGdLXxtIKRaYRMrFVouIGRgPHXaNB3WBmXjVWEzIQA4BHWjURLuGO Xbnm6OUTZoVBXeWcO8QHLsUJNcKEXtJIhnYVAuHJYfAjEuNUYjHECnDK9OPxSaHUYzWeX4HcyeADHvFX Tobv4ZFIIuNGFzFyLoAIJcPXLqXJWaSCwoUZUrYHYt GyRnPZGnOQRvXW7LKfQzMJEkYoUtADPcWKTnCGXong4GJFBhKGEtTNT5UMJmEAVbVNTfNBkiAEJwNRU4 ZUtkJLArBUKdFN9OIxQeEWLpBfQ6SiYiNEHzXRBhvb6XSJJjCXHwSYkoJuThLFNsJBOvFXfbRZGhXVB0 MUKxAEPpQIFfKN0RSqCoMAIpUhP5ZFZgMXDuTKObij 4MDYRlEOYjBkD6PkRgETUkGNTsQXlaHYKtQJN2VxXfXXVtEERyES6BFqGtVRJaZcfmXUdtHJUkNMEhjk 8ZEIJxPJHvQPFeGWEuWQMwFBUlSTgqNOXmBIO8SlV1EMJiAHNpPM8CIoFiVIKcQVFkIXkuNCXhNRGade 4VTGYfPXS8DKM7FnAqQYLjGCXkOUvnEEIjDJNkHAhu JAVrAXMvRM8EGjZbTQJaWJO7ZpEdGTHiUAPbof4SYBEeFZA1ZGz1JsLfTVSoZHKiECgzPLOqCNFfJdym TUNfFRPcDR5TYxLpRIUnOGM1VHPbYSUyEEPqhq6LRIEqYYK8VgxuNqMsARXsJEXkJYslVLJrBYO7QQDw RBPjYVGgFA9YSzYqCTGxWYSlJMVsGLOxCQQfhe5TMM SbGKR1UMG6BZOjTMJrTKGcEFqnHVLwQGU9USX2CDMrKKFzIX8QOzSaKIAeMELlLPIjCICvLJEupg8TLS MmNXW9KlF1PKOpIXWkOFKiOLu4pcYlkAHhKKl9JE1PS0DbysIjWMVWEn4Ci291JCP1COWvRs1AW5jrKz 3gDWDtYOAXMq5SVIp4DEdyPjF2JSXiTXK0QAH3TtLa VEPiPOP2OPSuRJZ2QHM+QSchDZZ9CMQ1MCPbSSu7IQKlBVSsZgZiREBaGnTmNum6Kk1xARYMOn6+DQpz vXFnpUtsWSTBNaN3FSn8LZuaPWNTUu3N ID Date Data Source [id number] [facility] 08[facility]50[facility] Interpretation Code Description Data Tyra rce(s) Supporting Document(s) Glucose [Mass/volume] in Capillary blood by Glucometer 205 mg/dL 70- 140 H [facility] ID Date Data Source [id number] 01/18/2021 04:56:26 AM [facility] Value Range Interpretation Code Description Data Tyra rce(s) Supporting Document(s) Parathyrin.intact [Mass/volume] in Serum or Plasma 117 pg/mL 15-65 [facility] ID Date Data Source [id number] 01/18/2021 04:30:30 AM [facility] Value Range Interpretation Code Description Data Tyra rce(s) Supporting Document(s) Leukocytes [#/volume] in Blood by Automated count 9.8 10*3/uL 4-10 [facility] Erythrocytes [#/volume] in Blood by Automated count 3.19 10*6/uL 4.1- 5.3 L [facility] Hemoglobin [Mass/volume] in Blood 9.0 g/dL 11.5-15.5 L [facility] Hematocrit [Volume Fraction] of Blood by Automated count 26.7 % 3 6-45 L [facility] Erythrocyte mean corpuscular volume [Entitic volume] by Auto mated count 83.5 fL 80-96 [facility] Erythrocyte mean corpuscular hemoglobin [Entitic mass] by Automated count 28.3 pg 27-33 [facility] Erythrocyte mean corpuscular hemoglobin concentration [Mass/volume] by Automated count 33.9 g/dL 32.0-[facility] [Ratio] by Automated count 14.7 % 11.5-14.5 [facility] Platelets [#/volume] in Blood by Automated count 185 10*3/uL 150-400 [facility] Differential cell count method - Blood [facility] Neutrophils/100 leukocytes in Blood by Automated count 77 % [facility] Lymphocytes/100 leukocytes in Blood by Automated count 13 % [facility] Monocytes/100 leukocytes in Blood by Automated count 6 % [facility] Eosinophils/100 leukocytes in Blood by Automated count 3 % [facility] Basophils/100 leukocytes in Blood by Automated count 1 % [facility] Neutrophils [#/volume] in Blood by Automated count 7.60 10*3/uL 1.8-7 .0 [facility] Lymphocytes [#/volume] in Blood by Automated count 1.23 10*3/uL 1.2-4 .0 [facility] Monocytes [#/volume] in Blood by Automated count 0.54 10*3/uL 0-0.8 [facility] Eosinophils [#/volume] in Blood by Automated count 0.32 10*3/uL 0-0.5 [facility] Basophils [#/volume] in Blood by Automated count 0.08 10*3/uL 0-0.2 [facility] Nucleated erythrocytes/100 leukocytes [Ratio] in Blood by Automated count 0 /100{WBCs} 0-0 [facility] ID Date Data Source [id number] 01/18/2021 04:37:52 AM EDT [facility] Name Value Range Interpretation Code Description Data Tyra rce(s) Supporting Document(s) Bicarbonate [Moles/volume] in Serum 23 mmol/L 22-29 [facility] Chloride [Moles/volume] in Serum or Plasma 99 mmol/L 98-107 [facility] Creatinine [Mass/volume] in Serum or Plasma 2.33 mg/dL 0.50-0.90 [facility] Glucose [Mass/volume] in Serum or Plasma 237 mg/dL 70-140 [facility] Potassium [Moles/volume] in Serum or Plasma 3.5 mmol/L 3.4-5.1 [facility] Sodium [Moles/volume] in Serum or Plasma 132 mmol/L 136-145 [facility] Urea nitrogen [Mass/volume] in Serum or Plasma 67 mg/dL 8-23 [facility] Anion gap 3 in Serum or Plasma 9 mmol/L 8-15 [facility] Osmolality of Serum or Plasma by calculation 301 mosm/kg 275-300 [facility] Creatinine/Urea nitrogen [Mass Ratio] in Serum or Plasma 29 [facility] Calcium [Mass/volume] in Serum or Plasma 9.0 mg/dL 8.8-10.2 [facility] Glomerular filtration rate/1.73 sq M pre dicted among non-blacks [Volume Rate/Area] in Serum or Plasma by Creatinine-based formula (MDRD) 20 mL/min/1.73m2 >60 [facility] Glomerular filtration rate/1.73 sq M pre dicted among blacks [Volume Rate/Area] in Serum or Plasma by Creatinine-based formula (MDRD) 24 mL/min/1.73m2 >60 [facility] ID Date Data Source [id number] 01/17/2021 09:29:12 PM [facility] Name Value Range Interpretation Code Description Data Tyra rce(s) Supporting Document(s) Glucose [Mass/volume] in Capillary blood by Glucometer 284 mg/dL 70- 140 [facility] ID Date Data Source [id number] 01/17/2021 09:31:36 PM [facility] Name Value Range Interpretation Code Description Data Tyra rce(s) Supporting Document(s) Leukocytes [#/volume] in Blood by Automated count 9.8 10*3/uL 4-10 [facility] Erythrocytes [#/volume] in Blood by Automated count 3.11 10*6/uL 4.1- 5.3 [facility] Hemoglobin [Mass/volume] in Blood 9.0 g/dL 11.5-15.5 L [facility] Hematocrit [Volume Fraction] of Blood by Automated count 25.9 % 3 6-45 L [facility] Erythrocyte mean corpuscular volume [Entitic volume] by Auto mated count 83.1 fL 80-96 [facility] Erythrocyte mean corpuscular hemoglobin [Entitic mass] by Automated count 28.8 pg 27-33 [facility] Erythrocyte mean corpuscular hemoglobin concentration [Mass/volume] by Automated count 34.7 g/dL 32.0-36.0 [facility] width [Ratio] by Automated count 14.5 % 11.5-14.5 [facility] Platelets [#/volume] in Blood by Automated count 169 10*3/uL 150-400 [facility] ID Date Data Source [id number] 01/17/2021 05:32:09 PM [facility] Value Range Interpretation Code Description Data Tyra rce(s) Supporting Document(s) Glucose [Mass/volume] in Capillary blood by Glucometer 286 mg/dL 70- 140 [facility] ID Date Data Source [id number] 01/17/2021 12:21:19 PM [facility] Value Range Interpretation Code Description Data Tyra rce(s) Supporting Document(s) Glucose [Mass/volume] in Capillary blood by Glucometer 314 mg/dL 70- 140 [facility] ID Date Data Source [id number] 01/17/2021 08:46:18 AM [facility] Value Range Interpretation Code Description Data Tyra rce(s) Supporting Document(s) Glucose [Mass/volume] in Capillary blood by Glucometer 311 mg/dL 70- 140 [facility] ID Date Data Source [id number] 01/17/2021 07:29:51 AM [facility] Value Range Interpretation Code Description Data Tyra rce(s) Supporting Document(s) Troponin T.cardiac [Mass/volume] in Serum or Plasma 0.25 ng/mL <0.01 [facility] No Significant Change Since Last Result Called ID Date Data Source [id number] 01/17/2021 07:55:13 AM [facility] Value Range Interpretation Code Description Data Tyra rce(s) Supporting Document(s) Bicarbonate [Moles/volume] in Serum 21 mmol/L 22-29 L [facility] Chloride [Moles/volume] in Serum or Plasma 96 mmol/L 98-107 [facility] Creatinine [Mass/volume] in Serum or Plasma 2.62 mg/dL 0.50-0.90 [facility] Glucose [Mass/volume] in Serum or Plasma 330 mg/dL 70-140 [facility] Potassium [Moles/volume] in Serum or Plasma 3.7 mmol/L 3.4-5.1 [facility] Sodium [Moles/volume] in Serum or Plasma 131 mmol/L 136-145 [facility] Urea nitrogen [Mass/volume] in Serum or Plasma 69 mg/dL 8-23 [facility] Anion gap 3 in Serum or Plasma 14 mmol/L 8-15 [facility] Osmolality of Serum or Plasma by calculation 305 mosm/kg 275-300 [facility] Creatinine/Urea nitrogen [Mass Ratio] in Serum or Plasma 26 [facility] Calcium [Mass/volume] in Serum or Plasma 8.4 mg/dL 8.8-10.2 [facility] Glomerular filtration rate/1.73 sq M pre dicted among non-blacks [Volume Rate/Area] in Serum or Plasma by Creatinine-based formula (MDRD) 18 mL/min/1.73m2 >60 L [facility] Glomerular filtration rate/1.73 sq M pre dicted among blacks [Volume Rate/Area] in Serum or Plasma by Creatinine-based formula (MDRD) 21 mL/min/1.73m2 >60 L [facility] ID Date Data Source [id number] 01/17/2021 07:58:27 AM T [facility] Name Value Range Interpretation Code Description Data Tyra rce(s) Supporting Document(s) Leukocytes [#/volume] in Blood by Automated count 9.0 10*3/uL 4-10 [facility] Erythrocytes [#/volume] in Blood by Automated count 2.57 10*6/uL 4.1- 5.3 [facility] Hemoglobin [Mass/volume] in Blood 7.4 g/dL 11.5-15.5 [facility] Hematocrit [Volume Fraction] of Blood by Automated count 21.8 % 3 6-45 [facility] Erythrocyte mean corpuscular volume [Entitic volume] by Auto mated count 84.8 fL 80-96 [facility] Erythrocyte mean corpuscular hemoglobin [Entitic mass] by Automated count 28.7 pg 27-33 [facility] Erythrocyte mean corpuscular hemoglobin concentration [Mass/volume] by Automated count 33.8 g/dL 32.0-36.0 [facility] width [Ratio] by Automated count 13.9 % 11.5-14.5 [facility] Platelets [#/volume] in Blood by Automated count 160 10*3/uL 150-400 [facility] Differential cell count method - Blood [facility] Neutrophils/100 leukocytes in Blood by Automated count 79 % [facility] Lymphocytes/100 leukocytes in Blood by Automated count 16 % [facility] Monocytes/100 leukocytes in Blood by Automated count 3 % [facility] Eosinophils/100 leukocytes in Blood by Automated count 1 % [facility] Neutrophils [#/volume] in Blood by Automated count 7.09 10*3/uL 1.8-7 .0 H [facility] Lymphocytes [#/volume] in Blood by Automated count 1.47 10*3/uL 1.2-4 .0 [facility] Monocytes [#/volume] in Blood by Automated count 0.26 10*3/uL 0-0.8 [facility] Eosinophils [#/volume] in Blood by Automated count 0.09 10*3/uL 0-0.5 [facility] Metamyelocytes/100 leukocytes in Blood by Manual count 1 % [facility] Metamyelocytes [#/volume] in Blood by Manual count 0.09 10*3/uL 0-0 [facility] ID Date Data Source [id number] 01/17/2021 03:09:09 AM [facility] Name Value Range Interpretation Code Description Data Tyra rce(s) Supporting Document(s) Troponin T.cardiac [Mass/volume] in Serum or Plasma 0.25 ng/mL <0.01 [facility] No Significant Change since last result called ID Date Data Source [id number] 01/17/2021 02:49:17 AM [facility] Value Range Interpretation Code Description Data Tyra rce(s) Supporting Document(s) Leukocytes [#/volume] in Blood by Automated count 9.4 10*3/uL 4-10 [facility] Erythrocytes [#/volume] in Blood by Automated count 2.60 10*6/uL 4.1- 5.3 L [facility] Hemoglobin [Mass/volume] in Blood 7.5 g/dL 11.5-15.5 L [facility] Hematocrit [Volume Fraction] of Blood by Automated count 21.9 % 3 6-45 L [facility] Erythrocyte mean corpuscular volume [Entitic volume] by Auto mated count 84.2 fL 80-96 [facility] Erythrocyte mean corpuscular hemoglobin [Entitic mass] by Automated count 28.8 pg 27-33 [facility] Erythrocyte mean corpuscular hemoglobin concentration [Mass/volume] by Automated count 34.2 g/dL 32.0-36.0 [facility] distribution width [Ratio] by Automated count 13.9 % 11.5-14.5 [facility] Platelets [#/volume] in Blood by Automated count 167 10*3/uL 150-400 [facility] Differential cell count method - Blood [facility] Neutrophils/100 leukocytes in Blood by Automated count 72 % [facility] Lymphocytes/100 leukocytes in Blood by Automated count 16 % [facility] Monocytes/100 leukocytes in Blood by Automated count 7 % [facility] Eosinophils/100 leukocytes in Blood by Automated count 4 % [facility] Basophils/100 leukocytes in Blood by Automated count 1 % [facility] Neutrophils [#/volume] in Blood by Automated count 6.84 10*3/uL 1.8-7 .0 [facility] Lymphocytes [#/volume] in Blood by Automated count 1.46 10*3/uL 1.2-4 .0 [facility] Monocytes [#/volume] in Blood by Automated count 0.66 10*3/uL 0-0.8 [facility] Eosinophils [#/volume] in Blood by Automated count 0.35 10*3/uL 0-0.5 [facility] Basophils [#/volume] in Blood by Automated count 0.09 10*3/uL 0-0.2 [facility] Nucleated erythrocytes/100 leukocytes [Ratio] in Blood by Automated count 0 /100{WBCs} 0-0 [facility] ID Date Data Source [id number] 01/16/2021 08:25:58 PM EDT [facility] Name Value Range Interpretation Code Description Data Tyra rce(s) Supporting Document(s) Glucose [Mass/volume] in Capillary blood by Glucometer 299 mg/dL 70- 140 H [facility] ID Date Data Source [id number] 01/16/2021 08:44:17 PM EDT [facility] Name Value Range Interpretation Code Description Data Tyra rce(s) Supporting Document(s) Troponin T.cardiac [Mass/volume] in Serum or Plasma 0.25 ng/mL <0.01 [facility] No Significant Change since last result called ID Date Data Source [id number] 01/16/2021 05:39:45 PM EDT [facility] Name Value Range Interpretation Code Description Data Tyra rce(s) Supporting Document(s) Glucose [Mass/volume] in Capillary blood by Glucometer 331 mg/dL 70- 140 [facility] ID Date Data Source [id number] 01/16/2021 03:22:23 PM EDT [facility] Value Range Interpretation Code Description Data Tyra rce(s) Supporting Document(s) ED Provider Note [facility] OKFRGh1cOgNBAtFh39/YWElkLDAll8RyOZrfRWd1SGqkHYEoB2FqSHC5gS3lCIW2GUmQOhEiMiAmYZV6 lbm [file] ICAgICAgICAgICAgICAgICAgICAgICAgICAgICAgIC AgICAgICAgICAgICAgICAgICAgICAgICAgICAgICAgICAgICAgICAgICANCiAgICAgICAgICAgICAgIC AgICAgICAgICAgICAgICAgICAgICAgICAgICAgICAgICAgICAgICAgICAgICAgICAgICAgICAgICAgIC AgICAgICAgICAgICAgICAgICAgICAgICANCiAgICAg ICAgICAgICAgICAgICAgICAgICAgICAgICAgICAgICAgICAgICAgICAgICAgICAgICAgICAgICAgICAg ICAgICAgICAgICAgICAgICAgICAgICAgICAgICAgICAgICANCiAgICAgICAgICAgICAgICAgICAgICAg ICAgICAgICAgICAgICAgICAgICAgICAgICAgICAgIC AgICAgICAgICAgICAgICAgICAgICAgICAgICAgICAgICAgICAgICAgICAgICANCiAgICAgICAgICAgIC AgICAgICAgICAgICAgICAgICAgICAgICAgICAgICAgICAgICAgICAgICAgICAgICAgICAgICAgICAgIC AgICAgICAgICAgICAgICAgICAgICAgICAgICANCiAg ICAgICAgICAgICAgICAgICAgICAgICAgICAgICAgICAgICAgICAgICAgICAgICAgICAgICAgICAgICAg ICAgICAgICAgICAgICAgICAgICAgICAgICAgICAgICAgICAgICANCiAgICAgICAgICAgICAgICAgICAg ICAgICAgICAgICAgICAgICAgICAgICAgICAgICAgIC AgICAgICAgICAgICAgICAgICAgICAgICAgICAgICAgICAgICAgICAgICAgICAgICANCiAgICAgICAgIC AgICAgICAgICAgICAgICAgICAgICAgICAgICAgICAgICAgICAgICAgICAgICAgICAgICAgICAgICAgIC AgICAgICAgICAgICAgICAgICAgICAgICAgICAgICAN CiAgICAgICAgICAgICAgICAgICAgICAgICAgICAgICAgICAgICAgICAgICAgICAgICAgICAgICAgICAg ICAgICAgICAgICAgICAgICAgICAgICAgICAgICAgICAgICAgICAgICANCiAgICAgICAgICAgICAgICAg ICAgICAgICAgICAgICAgICAgICAgICAgICAgICAgIC AgICAgICAgICAgICAgICAgICAgICAgICAgICAgICAgICAgICAgICAgICAgICAgICAgICANCjw/eHBhY2 fbuOUvqvW0E6xsDw6DBl0PKG4ma2BiOMEyUUaekmBsPlqLGeAoEVMxXnvNIml2MVjpCR0EgYHzQ8YuX1 SzWDbjFO3EFXLyCPIfeXEqKNZxUHTcQdG0YJXsAEbc UH1PcFNfVFpyELMnLFWdOtGiZNBkZDGcZGYqPPNmLKLSJSShRNTsHxGdHBHoYRAnZEwyMJURFPC8XOHu RjRdRAxoVV5Zh9VimSQ6PSl+Pe2KTB8vz9GsVVnrMqLgNS9sik0INNkDPwJlS9SdnbD0NPQ2EVDpHn8P RQQmJCHtjZJ6OAExHGZSFuNsS6PvyB30ZONEUn2+DQ wnqpSlEnsSYjS5DRPbu5NpUTv0IT5IEXKvIWx6nTRsZNAtBRXgpplqVDHoUv65FEEzIirgRsnwMLMXOP 5juSKlx1K9ZCIDYfDxkSY9AjI6XsWpRwKjKUX9QYlbCG9uREvtWA3ZYET5HGdzYOOjFPFdX4cGPoBxDO owYWDlzMvwTS1VOxKnS7QbywSauZDoIrAjXOPRHuQt T25kaUYaUznoPZXAIXm+Lx8GXZ0qm9DgVYzsJGReYO6vtt1IVUaOTpQmQ6TtiLswFCVHSHHzt1XqLPUl NG5weYVgTMK1EARmVAFfHKRyNMt7HDMlcMkzKA6uKCMdVY7oSs8yKCVpIPX9ZxK4UGAZWB9RZAUoTKAe oZTjPCWxDCLiHbKzCOlsUKAlCqJ6NK05mPalTT2IBF ZgPOHkYK98ZLB2SPVlFn2OFOFbOTMpaaSiWcDqZLFHEgDhE04whYMnSkbyDZPKAAx+Fz8WCQ0ty5YeFE hgSLCuNQ3wig1NPXoMHaMsN7SrvOacAGZIIN0xlNDzTPQ8FOmmbNelrwebLWTAVJZpLCFeg27dRUYWEV F6LRKyPSFwFrQvLTGeEQe0VuXSMEdXNfVwY4Fdr9Jb IzIpTLDzBJSiV4gKMcQpWGA7ROMauVisRQ7HDrIhA6RdpdPvjZKjFsXyOMNTZpVwE2FsLGPpUagzADHP SWyyNK7SDJz7GQLcVQCkTa3FRc5LHxYgVL4qam0UJHGgUKZbRwtEGzz4RJkoRB8JnMQzCXxUQBCCvqnn T4PlIm80FTLsKgkjTTOssMXxFPIMDNTuxSFfSISEMA Z6HDVeOJImMtNqLPUvVzfxVQWJORhTJjHqB1Zvq0VtXkOdHNHuWHQlX1eIYfJdWKN3JgYacXgsGS8JYv UeT2RwxkRvfXHzAwPkYUDGKpDrT9JrSKHuZiuoJECZDHfuGX3NHIy8XNIrIZZwWv5RFu4FQbUiVB7drg 9VFAMzBLHzVtwXIsy4RGwwIJ4BuTOfCCcLFNUDi7Rn jbDsiKHUVLQzkPUQKVHbcWLuDZWHHdEnlGT3BlW9ClNxSoCpCPY6RPnwPZ9fNJpuSZ7SFGQ4RRdpMPlr GHZNVD9RVHdtWNXnNRDaoqDjyWPnRXvdNL1VJDDwojQgMdNoZMTFVVnvOK9NurR8UIIfLWGhEw5QEe0A NsRdOA8klh9JCOCdDWKqYgyCRlw7OQmkFA1FvDLjX5 YlvVMif0vYGaCoD6AYQTT0MIWxCw5ROAEfXwHlDNArFXmmKP5aJNLwKCQSzYxkhkG8TF7RKR9quvCcGT 0PCfByRw9xEl2IOoOfT9RuM2BgAYYrJDPSQSufUV9JPGvxFT9gPC9Us6KUsUQlyY3vtu6LNTBbKIBdJt ujky3ZIfwiO2S2zBgmJUJvZuAfLZNGIAzfSD9GMNNe VOV0NGGhALJzDNOPRkZnF28wGF4IQ1Tej35pEqL5WTJiAsDxWAnwMF33gOfoyyQguADekQqcEG3JFs9+ NMleznZqWpeGGdcfNJFMToSqJMCDVeGoMGHaAPOrUIZfXxW4RlFfIa6UPLIjMSWhTYByReFqQJLrDYMe LZmuWTQrOJLmVlH7HPOlBIHoBQ4KXdXnSJYsVPHhYf SdYNGxSPNvog0XVPKbMUAtHIY8ZjVwETItIYYrVXtaAHHfTYEoPuDnNYCmTJPxUY0KCjHcSWVbPAX6Xv JpKADxBMYoin2BKBNvUFZhLQC1GHHrFIEfBIOgTOrdJVVwHBG2Ekm9WWFqRPUgIM2JFoPzFAKvUWx1PK djXVCqGRCocz3KGFApRHWyOSAaOmNaQJPrXKUoJAyw MEMnTGUzLPN3IXEcEGPgCM4IIfXxIEOdBSAtLDLsTIGtDKBupw6KSGDqFWYuOYu7TCXkJWLhFHMjIWnw MGInILX5VVy1KZKxMLMnOG4PAmTbXOLoPId1RZzxTCHkXFWtbf6EVZDdRDOyMwrzOREwZCLqSRIiWUsf SWQiSOIcUDX0CKOpAKTfQJ0YFzZnYLHyZjIbKiNfGR CsYEZsix7GAODrVJEyTbfdISWsNHRjIESqPSpcQZTuRIEjOEJ3LIEfNXZdIL5FXnXfVFMeQpF2SnPbVK CcMDXaoi6EODCwABZrNKY1ElEqGPLqYWNpSLjwJDYfTWO5VcO8UDPjDRZrZE1JYuIjHVPuEaJbUJPePC NlMCDpke4WZDFkCNMfHeNfAoUxRBYcKYCtYObrWHVz BBQ2CvT1GEXeFJGxTZ8BNpRyFXZzOzq5NlZvCVDfFAHgec2JFSCjTRPwWii9XENdZVYsFSCtWRqdGCCp CNM5AXX0TWVeRCXxUT3JAcIvWGTkHrfvOqTfUSBdIKQqwz3QSFLmTCTmAMO6QEUfLVRwJMBsUEhrZVBl PYO9KFN5JOBgBCNgSB0BTgQiCXUqHNZwZVtfODBdVL Gwrh0FWCKjUZB2DKFqLLYtGPYwBTUnNTufWGHjNKEjYyZuYKCtTVTkVB2YVzFdDELpQAMbEWAiLVAvRT Dkrq2ISVDbHZZ2AvK4EvSeIGPdHPTfMIsqGCXzVUKxULG5NQCvRHNzEL8IWgFaSWLwLCA8GaNkFOYpPY Irbw4ZTSOiAON1RjqdHwWpWJVrXIJsPCtjBBLbLYOo YAv1XNPdSSXmZL2TJqEiOWFgCRVtAHAzOCKqLZPprk3FvDPjwVdean1TMBtHFb6BmDshQIQoLOxuXv3z lWQ1DxApGHTBCm2AjnCnXYXtXXGZXIhhLZQbCGkvC5L7XOT9JKRfSTGcAgPkEPS2TEg7FLB9DXOxXLJv YiF0OwVbGKIzBvgzEJSlNCJ0WFCbLvdfEST3JjLqOV I5MTE+IP3cBOv+En7Ro3SnehE8wcOsFSy9NzO1YJ1TMXNPA7CBZo== ID Date Data Source [id number] 01/16/2021 12:56:16 PM T [facility] Name Value Range Interpretation Code Description Data Tyra rce(s) Supporting Document(s) [facility] OBBNPp5bWyXWKlTht5UsWxLlODSdWI5gaot1Z1O0zHEmE4GesMDmt1zyU3BbX7ZaFWXkUVRKFJ4LqWFa jb2 [file] QCCh+60o+OipD7FNTspbhf1fxdrm2fCirgykGaet/5T/urTV7Z//5b8Dn1l3o0//9//0z7+q/fP//care home +Pvvn//+Pvxf//pv/+Nf/81//E//9Fb++Y//81//3X/8q/79rAot//Us7fO/bW3/8z//9/8yK/9U//vn P/1zHm3+/fvvf/6Xf/aYRGVgHINF5aJbYbE6XI6Zll PkhpmawmKZnOsOJkIrMFHJFusKkPKLNbOvZrEoOMk6eZfMDc3c5bDJb3k97VIoGz17vprXq61n63WaM3 v1XvuEnn2azgDxO8frSicPmWlKvpSf8bYxEAk7jEfGYm0c1eCCf6f50WHqHuK7ymqPbY4c9gNq37p5Ry s4os9Gsg7q41CqE+t0rPaUje8hBeGoGi9c16DRh6Me Bi6a73KOr0WfiwpJQSAah8sH7VEtt5Ihc5e73YAfq7Bai4n73TVlt2Ccd2p75TVgzHZCIusPmAyxoEm6 edZrQq+Y1LyHb3w5XwLcQt5VeVoSd4OubmWc8Lj+rVGx0UScB9jQiIkPRtosktDCfwfc4DDbGml4mwzC uu4o97Xq96x8Qlx3mrArHi4Qtj69cuIoA1+j5mrYv9 u0DlOdJi2JjCnQd5UuozGs4ElyfOj34i/giauPy2lzmbl3/MzNhZNz+TcxZ0pn8vO/J84A8IdTHeith0 0cRTgHk07TkfBqFo01TbIezxDKGGD+7Wqk0ZuLHQkox8GFImodJahH/HKRREZ+9XgbKm13lDSM1O7IMp lJavvlWols/ehJWlJ/eEklMak/zKSSmtQfblJJTuoP O6mkJ/JJr7YDdHvIPFyvNz4kBXLguqKrGjjs8D+yGVm2o4qOAxD4y6NftLm8SYjYaNF+8JVKwlJ/GEsl Gary/gZLAtWWx9vUFX+nMm7yqOlOOvGHBv/rDXSrJS/0fA9B1hv2gg5sLY34SCXRCeF0gwyLK7H2NE8sd [file] Sd5v1Fw414jYmMEp0ltYnajuQA0B+AvWsMdiwRPP+PRODUCT SALES REPRESENTATIVE+5fW1rHWeLbqBpSZeT0CoC3kCW7GSpiWJssR [file] epL8owNkSby3VHrfSeCsAC8A ID Date Data Source [id number] 01/16/2021 01:35:16 PM EDT [facility] Name Value Range Interpretation Code Description Data Tyra rce(s) Supporting Document(s) Leukocytes [#/volume] in Blood by Automated count 10.1 10*3/uL 4-10 H [facility] Erythrocytes [#/volume] in Blood by Automated count 2.75 10*6/uL 4.1- 5.3 L [facility] Hemoglobin [Mass/volume] in Blood 7.8 g/dL 11.5-15.5 L [facility] Hematocrit [Volume Fraction] of Blood by Automated count 23.3 % 3 6-45 L [facility] Erythrocyte mean corpuscular volume [Entitic volume] by Auto mated count 84.8 fL 80-96 [facility] Erythrocyte mean corpuscular hemoglobin [Entitic mass] by Automated count 28.5 pg 27-33 [facility] Erythrocyte mean corpuscular hemoglobin concentration [Mass/volume] by Automated count 33.6 g/dL 32.0-36.0 [facility] width [Ratio] by Automated count 13.8 % 11.5-14.5 [facility] Platelets [#/volume] in Blood by Automated count 171 10*3/uL 150-400 [facility] Differential cell count method - Blood [facility] Neutrophils/100 leukocytes in Blood by Automated count 74 % [facility] Lymphocytes/100 leukocytes in Blood by Automated count 16 % [facility] Monocytes/100 leukocytes in Blood by Automated count 6 % [facility] Eosinophils/100 leukocytes in Blood by Automated count 3 % [facility] Basophils/100 leukocytes in Blood by Automated count 1 % [facility] Neutrophils [#/volume] in Blood by Automated count 7.51 10*3/uL 1.8-7 .0 H [facility] Lymphocytes [#/volume] in Blood by Automated count 1.58 10*3/uL 1.2-4 .0 [facility] Monocytes [#/volume] in Blood by Automated count 0.61 10*3/uL 0-0.8 [facility] Eosinophils [#/volume] in Blood by Automated count 0.28 10*3/uL 0-0.5 [facility] Basophils [#/volume] in Blood by Automated count 0.07 10*3/uL 0-0.2 [facility] Nucleated erythrocytes/100 leukocytes [Ratio] in Blood by Automated count 0 /100{WBCs} 0-0 [facility] ID Date Data Source [id number] 01/16/2021 01:53:37 PM [facility] Name Value Range Interpretation Code Description Data Tyra rce(s) Supporting Document(s) Erythrocyte sedimentation rate 54 mm/hr <30 H [facility] ID Date Data Source [id number] 01/16/2021 02:35:52 PM [facility] Name Value Range Interpretation Code Description Data Tyra rce(s) Supporting Document(s) Albumin [Mass/volume] in Serum or Plasma by Bromocresol green (BCG) dye binding method 3.4 g/dL 3.5-5.2 [facility] Bil[facility] [Mass/volume] in Serum or Plasma 0.4 mg/dL <1.2 [facility] Calcium [Mass/volume] in Serum or Plasma 8.4 mg/dL 8.8-10.2 L [facility] Chloride [Moles/volume] in Serum or Plasma 99 mmol/L 98-107 [facility] Creatinine [Mass/volume] in Serum or Plasma 2.86 mg/dL 0.50-0.90 [facility] Glucose [Mass/volume] in Serum or Plasma 205 mg/dL 70-140 H [facility] Alkaline phosphatase [Enzymatic activity/volume] in Serum or Plasma 79 U/L 35-104 [facility] Potassium [Moles/volume] in Serum or Plasma 3.7 mmol/L 3.4-5.1 [facility] Protein [Mass/volume] in Serum or Plasma 6.2 g/dL 6.4-8.3 L [facility] Sodium [Moles/volume] in Serum or Plasma 135 mmol/L 136-145 L [facility] Aspartate aminotransferase [Enzymatic activity/volume] in Serum or Plasma 22 U/L <32 [facility] Urea nitrogen [Mass/volume] in Serum or Plasma 59 mg/dL 8-23 H [facility] Osmolality of Serum or Plasma by calculation 302 mosm/kg 275-300 H [facility] Creatinine/Urea nitrogen [Mass Ratio] in Serum or Plasma 21 [facility] Bicarbonate [Moles/volume] in Serum 23 mmol/L 22-29 [facility] Alanine aminotransferase [Enzymatic activity/volume] in Seru m or Plasma 15 U/L <33 [facility] Anion gap 3 in Serum or Plasma 13 mmol/L 8-15 [facility] Glomerular filtration rate/1.73 sq M pre dicted among non-blacks [Volume Rate/Area] in Serum or Plasma by Creatinine-based formula (MDRD) 16 mL/min/1.73m2 >60 L [facility] Glomerular filtration rate/1.73 sq M pre dicted among blacks [Volume Rate/Area] in Serum or Plasma by Creatinine-based formula (MDRD) 18 mL/min/1.73m2 >60 L [facility] ID Date Data Source [id number] 01/16/2021 02:35:52 PM [facility] Value Range Interpretation Code Description Data Tyra rce(s) Supporting Document(s) C reactive protein [Mass/volume] in Serum or Plasma 90.7 mg/L <8.0 H [facility] ID Date Data Source [id number] 01/16/2021 02:35:52 PM [facility] Value Range Interpretation Code Description Data Tyra rce(s) Supporting Document(s) Troponin T.cardiac [Mass/volume] in Serum or Plasma 0.28 ng/mL <0.01 [facility] No Significant Change Since Last Result Called ID Date Data Source [id number] 01/16/2021 01:35:25 PM [facility] Value Range Interpretation Code Description Data Tyra rce(s) Supporting Document(s) Lactate [Moles/volume] in Serum or Plasma 1.2 mmol/l 0.5-2.2 [facility] ID Date Data Source [id number] 01/16/2021 12:14:13 PM EDT [facility] Name Value Range Interpretation Code Description Data Tyra rce(s) Supporting Document(s) Glucose [Mass/volume] in Capillary blood by Glucometer 166 mg/dL 70- 140 [facility] ID Date Data Source [id number] 01/16/2021 11:13:36 AM EDT [facility] CT HEAD WITHOUT CONTRAST [id number] RESU LTInterpreted by:CATINA Reedrocedure: CT scan of [...] rce(s) Supporting Document(s) ID Date Data Source [id number] 01/16/2021 08:46:09 AM EDT [facility] Name Value Range Interpretation Code Description Data Tyra rce(s) Supporting Document(s) [facility] UYGZOb6dXeDLEgCl55/EQPlaMYIbt4LdIBqoTJv4FBngOSLmR8UiIDJ6pM3fYQC9EOiKIxXbWfXfYZN9 lbm [file] [facility]//vRj9YbTQFrwpiTyeJFhQA0QKmDcHY4mas2MWrYcBM9eix8YHDJ5FS8JFBNzFM8NwVAbG0GwR1CG [file] AgICAgICAgICAgICAgICAgICAgICAgICAgICAgICAgICAgICAgICAgICAgICAgICAgICAgICAgICAgIC CxZF6JANObSLXiNYRfCQKsEKFwSZIeIBKdQBGzTMHw ICAgICAgICAgICAgICAgICAgICAgICAgICAgICAgICAgICAgICAgICAgICAgICAgICAgICAgICAgICAg PWTsNQVhYSLwGPZeGP3MWEJrQUOhDORaOWVpBPUcSPRxUNDpXLSvHKPnRBGmHWWdGKMjHBIwDDZoORBx ICAgICAgICAgICAgICAgICAgICAgICAgICAgICAgIC VyLMUaPXFoCOXxABDuDLJqHYGaSPUgGK6AVIArAQNiQJTbURZeZOTdMGOkQZNrGUQiZJMrEGDrBTSnFU AgICAgICAgICAgICAgICAgICAgICAgICAgICAgICAgICAgICAgICAgICAgICAgICAgICAgICAgICAgIC EhSIIiDS8XULSqJQFdFJTgZSFuUTYpIAFmUZQtSQXx ICAgICAgICAgICAgICAgICAgICAgICAgICAgICAgICAgICAgICAgICAgICAgICAgICAgICAgICAgICAg CEWePTMnMJTuBLItGXCfJB4FFTAvAGYfDOUqTYIbRLIzWJSiDCZkVTOvIAJuAVGrJSDuXZWtSUXaRJLu ICAgICAgICAgICAgICAgICAgICAgICAgICAgICAgIC UyNKJrOIBtKVMtDNUdYBJdAPNlAXFcZSHcXL4IXEDjHZFpBPEvVYTlAUKxQRLoNJAnXAPdORSrAFJcLR AgICAgICAgICAgICAgICAgICAgICAgICAgICAgICAgICAgICAgICAgICAgICAgICAgICAgICAgICAgIC BgNZMnUMElWV5RQUCqCXQyPQZuXJCsOEUjZGTvZUTn ICAgICAgICAgICAgICAgICAgICAgICAgICAgICAgICAgICAgICAgICAgICAgICAgICAgICAgICAgICAg ZRPdDWRbFDQdROZhFWCoADXyUE9ZFYAvXGHoGZCfZAYoLPToQZJhASVlGMJmAECcHMIlWWYtRLImTGTf ICAgICAgICAgICAgICAgICAgICAgICAgICAgICAgIC PlHFMpLSMgHIHlWKWmDHTyQOUpGTTtHDThTXHjKV8AMQYfLTIpHUTsMETuCTOhNUJfIFNcIVXpFSHxXM AgICAgICAgICAgICAgICAgICAgICAgICAgICAgICAgICAgICAgICAgICAgICAgICAgICAgICAgICAgIC XcIMKyEXYjVWShEX3GEV80tGUgm1P1SMVfCZ9pnmd/ Dd8IDBatgfPnkZRaXR4SBrHuSR5cqs1YJpDaSA1gaa4MWSoFOfAnY4I6gMUePWQvGNNWMkBtB50sBJaw Zq57NDycSAPdCeYpEBy5Ug6MAtMwH0qiHITbSkW9WEEvHsO5BXHvYjY3PADwSmMsBOJeNSMaIIYoFVPN VOT1UOWgScFlPPmjAZ8Nx9VatDQ4VMc+Av9SJB9yf8 RrJOaqIpXuWK2lca3HYHcTXdXiB8BrkoB1BWRhWTGsKd8VMIEkVOEbiDXeTrZqVBPEBhDkX1HelC42HQ ENCj4+XHdikbDzJueFOsBxZVZxu4QnDEb5FP7KVZXmDMo1gXHnR70yt7RquYCeZrjnYRcxzcfcJEZgE7 7rjDJkVP9CUyPpDTPhYX7sIx3mILLnQQTsOnA3VYVB UQ8WRVHuHXPoiCQtKJHfSXXFAY6YGXdbJIX4NGDkrgAwmMCkPRbqKC7GKVGkhcUqGtQwLKNEXPs+Pg0K ZW9uy3ViYYpdHHUqUL9uvo8HUWxIMwYoR0N3tOMnS4U3NSjiPz4RQHNkJWVlYnLzMRUDZJdnJU7JTS6q yrG4NF2EdGIgPBXlHSDttAYjPNe4B42odAUxGSuiHA 0KICA+Javed+Lk3UZVXbVVKbONAqXeHlDQSJTkUbR5XmJ3AMh3UhF8XiGG12sBpugcOpUGkaIC8SDJ1iWR IlPTWJQT7UwFPxdU5fykTlRtWkJZBKBxChS79zwEQxSWWnCZUvOQOhDo5XEPZtK4MyacBvcOhvxzOsKB OeGWNTKE9KYMsoexGgeYIjjKkaIM55nRlcOW4LRm4K RbZeEH2jen7PzQZxIl4EZXIhPQ7DLDDrSTYgHCFcIWW6RBXhUiVjMEepNLRfFBSiDRZ6HTCdJXEyOR6X RnVpCTSrGfIeEOHtGKOkMNAsjp3LTKJgOTAdFor7ODBpPSGjMWUzNAlnZADqJACwLCX7SNHuABWpPQ6O NnOpLEYlZSQ7SSWhAUZyDXUvbd2KEXTqTZZjATKmZD TsAXVwPWTsWUrpYUJbGWY2DuS4NRNdLPBiLR5LJiJcWHLrVZi5TokhJTLiEHTjwv3CDUWjNYFuKFZ6JG ZsDSPvJLHoSMwgDEWnXFRlBROyLCTwNJUtWE2DXzYjRMSwQVTzEQNcCEEtPUScaj6CBIAyQHDjGUF4Zd ZjDMQbULDnJCxnFYRaUNT3ZgslGKVgOFVuZK6NYtPy CKOnSSc4MSidTAEbGYCcco9RDTIiKKZmPWaeYYPtPFLqQQTcREebKACpMVG5YVK5AAXaNANuNR7FKaUs MUSrXSv9EhluZVHoZUQkco2QXHZbGMGuNLI1CIItFLVlXEWtEPyuDGLrGDIwNmJ2EJFlGDJjNT3MMiAd IIJbGdBsTSBrWAShJLCiie7TPZPqAXRySHTgSHKhYM ApMANsHNiuHZXpWAFoMYs4MAUxOKYvRL7GIrIvGNEdJwF7DQBzOJPwFSXfqs3CTJEnKZAmSkq7NhCuRH SpMPXmCFupBRUhONApXGJ2BQEpXEEpYD6LQpQqFJSdIpIfTgVwVXBnNYTpdl0EFAKmOCWnCNVuLGWvZT GjEJXuUWloVVKpAWP2ZUH4JFJwZQKgTF1YMrZzXZBg GdRrDMifDWQtIDMxes5OGHCtKSVoWIVjVhQoYNZqCWApTSuiUWKmTKV9IeNpBLFfTKLdBO3JTtGtLPTj PtprKyApJRTbOEMmbs8CNJLrQPZfTwL9DdGaHNHuJTXwPDfmPZStGPQ8HiO2FKNhJUXqCV5XGzVtKLnk PAWNKhs0WExaP8q0AFDoTF7OC4Woq3JwQwVhOBTITP uhIZ8dysSdAURxFs3ZM0aQKfs1ZqD6R5G7RRR7LgQ6IwefSAPcGeZxLFP1LuYnE2KmCg4bEAVjYTdzAF K4PmBhEQPxK4ZcKYX9N7A1CRyjGBZxEUN3IoAcUU5PYo1ZUzS8GTH4vUQvEu3BPdz4KLDIAkXmWL6XMU o= ID Date Data Source [id number] 01/16/2021 08:49:18 AM EDT [facility] Name Value Range Interpretation Code Description Data Tyra rce(s) Supporting Document(s) Glucose [Mass/volume] in Capillary blood by Glucometer 209 mg/dL 70- 140 [facility] ID Date Data Source [id number] 01/16/2021 07:28:30 AM [facility] Name Value Range Interpretation Code Description Data Tyra rce(s) Supporting Document(s) Leukocytes [#/volume] in Blood by Automated count 10.3 10*3/uL 4-10 [facility] Erythrocytes [#/volume] in Blood by Automated count 2.58 10*6/uL 4.1- 5.3 [facility] Hemoglobin [Mass/volume] in Blood 7.6 g/dL 11.5-15.5 [facility] Hematocrit [Volume Fraction] of Blood by Automated count 21.8 % 3 6-45 [facility] Erythrocyte mean corpuscular volume [Entitic volume] by Auto mated count 84.5 fL 80-96 [facility] Erythrocyte mean corpuscular hemoglobin [Entitic mass] by Automated count 29.5 pg 27-33 [facility] Erythrocyte mean corpuscular hemoglobin concentration [Mass/volume] by [facility] 35.0 [facility] [Ratio] by Automated count 14.2 % 11.5-14.5 [facility] Platelets [#/volume] in Blood by Automated count 145 10*3/uL 150-400 [facility] Differential cell count method - Blood [facility] Neutrophils/100 leukocytes in Blood by Automated count 75 % [facility] Lymphocytes/100 leukocytes in Blood by Automated count 14 % [facility] Monocytes/100 leukocytes in Blood by Automated count 7 % [facility] Eosinophils/100 leukocytes in Blood by Automated count 3 % [facility] Basophils/100 leukocytes in Blood by Automated count 1 % [facility] Neutrophils [#/volume] in Blood by Automated count 7.79 10*3/uL 1.8-7 .0 [facility] Lymphocytes [#/volume] in Blood by Automated count 1.47 10*3/uL 1.2-4 .0 [facility] Monocytes [#/volume] in Blood by Automated count 0.74 10*3/uL 0-0.8 [facility] Eosinophils [#/volume] in Blood by Automated count 0.29 10*3/uL 0-0.5 [facility] Basophils [#/volume] in Blood by Automated count 0.05 10*3/uL 0-0.2 [facility] Nucleated erythrocytes/100 leukocytes [Ratio] in Blood by Automated count 0 /100{WBCs} 0-0 [facility] ID Date Data Source [id number] 01/16/2021 07:47:19 AM EDT [facility] Name Value Range Interpretation Code Description Data Tyra rce(s) Supporting Document(s) Troponin T.cardiac [Mass/volume] in Serum or Plasma 0.27 ng/mL <0.01 [facility] No Significant Change Since Last Result Called ID Date Data Source [id number] 01/16/2021 08:02:59 AM [facility] Value Range Interpretation Code Description Data Tyra rce(s) Supporting Document(s) Reticulocytes/100 erythrocytes in Blood by Automated count 2.2 % 0.6-2.8 [facility] Reticulocytes [#/volume] in Blood 58.4 10*3/uL 26-122 [facility] Immature reticulocytes/Reticulocytes.total in Blood 0.50 % 0.26-0 .52 [facility] ID Date Data Source [id number] 01/17/2021 12:07:29 PM [facility] Value Range Interpretation Code Description Data Tyra rce(s) Supporting Document(s) Hepatitis C virus RNA [Units/volume] (vi ral load) in Serum or Plasma by Probe and target amplification method [facility] Hepatitis C virus RNA [log units/volume] (viral load) in Serum or Plasma by Probe and target amplification method [facility] Service comment [facility] (NOTE)The quantitative range of this ass ay is 15 IU/mL to 100 millionIU/mL.Performed At: RN [facility] [address] [id number] Blackwell MD Ph:[phone] ID Date Data Source [id number] 01/16/2021 10:40:54 AM [facility] Value Range Interpretation Code Description Data Tyra rce(s) Supporting Document(s) Hepatitis B virus core Ab [Presence] in Serum or Plasma by I mmunoassay Non Reactive [facility] No active or previous infection. Suscept ible to infection. ID Date Data Source [id number] 01/16/2021 10:40:54 AM [facility] Value Range Interpretation Code Description Data Tyra rce(s) Supporting Document(s) Hepatitis B virus core IgM Ab [Presence] in Serum or Plasma by Immunoassay [facility] Reactive [facility] IgM antibodies to HBc were not detected, does not exclude the possibility of exposure to HBV. ID Date Data Source [id number] 01/16/2021 10:40:54 AM [facility] Value Range Interpretation Code Description Data Tyra rce(s) Supporting Document(s) Hepatitis B virus surface Ag [Presence] in Serum or Plasma b y Immunoassay Non Reactive [facility] No active or previous infection. Suscept ible to infection. ID Date Data Source [id number] [facility] Interpret[facility] Code Description Data Tyra rce(s) Supporting Document(s) Neutrophil cytoplasmic Ab [Presence] in Serum by Immunofluoresce nce Negative [facility] ID Date Data Source [id number] 01/16/2021 03:11:38 PM EDT [facility] Value Range Interpretation Code Description Data Tyra rce(s) Supporting Document(s) Protein [Mass/volume] in Serum or Plasma 4.7 g/dL 6.4-8.3 L [facility] Albumin [Mass/volume] in Serum or Plasma by Electrophoresis 2.56 g/dL 3.80-5.78 [facility] Alpha 1 globulin [Mass/volume] in Serum or Plasma by Electro phoresis 0.16 g/dL 0.08-0.23 [facility] Alpha 2 globulin [Mass/volume] in Serum or Plasma by Electro phoresis 0.78 g/dL 0.45-0.92 [facility] Beta globulin [Mass/volume] in Serum or Plasma by Electropho resis 0.78 g/dL 0.50-1.03 [facility] Gamma globulin [Mass/volume] in Serum or Plasma by Electroph oresis 0.42 g/dL 0.54-1.30 [facility] Protein.monoclonal [Mass/volume] in Serum or Plasma by Electrophoresi s 0 [facility] Decreased total serum proteins (4.7 g/dL ) with hypoalbuminemia and hypogammaglobulinemia. This can be seen in nephrosis, protein losing enteropathy, or severe acute illness. Clinical correlation is recommended. Pathologist name [facility] ID Date Data Source [id number] 01/16/2021 11:27:24 AM EDT [facility] Value Range Interpretation Code Description Data Tyar rce(s) Supporting Document(s) Folate [Mass/volume] in Serum or Plasma 12.29 ng/mL >4.77 [facility] ID Date Data Source [id number] 01/16/2021 11:28:04 AM EDT [facility] Value Range Interpretation Code Description Data Tyra rce(s) Supporting Document(s) Hepatitis B virus surface Ab [Units/volume] in Serum o r Plasma by Immunoassay 5.7 m[IU]/mL >11.4 [facility] Non ReactiveNo active or previous infect ion. Susceptible to infection. ID Date Data Source [id number] 01/16/2021 01:50:32 AM [facility] Value Range Interpretation Code Description Data Tyra rce(s) Supporting Document(s) Troponin T.cardiac [Mass/volume] in Serum or Plasma 0.25 ng/mL <0.01 [facility] Results called to and read back by 6A AMERICA GARCIA AT [id number] BY [id number] ID Date Data Source [id number] 01/16/2021 01:47:29 AM [facility] Value Range Interpretation Code Description Data Tyra rce(s) Supporting Document(s) HIV 1+2 Ab+HIV1 p24 Ag [Presence] in Serum or Plasma by Immu noassay Non Reactive [facility] Negative for HIV-1 p24 antigenand HIV-1/ HIV-2 antibodies. Nolaboratory evidence of HIVinfection. ID Date Data Source [id number] 01/16/2021 01:51:12 AM [facility] Value Range Interpretation Code Description Data Tyra rce(s) Supporting Document(s) Creatinine [Mass/volume] in Urine 115.1 mg/dl [facility] ID Date Data Source [id number] 01/16/2021 01:51:12 AM [facility] Value Range Interpretation Code Description Data Tyra rce(s) Supporting Document(s) Sodium [Moles/volume] in Urine 24 mmol/L [facility] ID Date Data Source [id number] 01/16/2021 01:51:12 AM [facility] Value Range Interpretation Code Description Data Tyra rce(s) Supporting Document(s) Chloride [Moles/volume] in Urine [facility] Confirmed ID Date Data Source [id number] 01/16/2021 06:03:34 AM [facility] Value Range Interpretation Code Description Data Tyra rce(s) Supporting Document(s) Osmolality of Urine 329 mosm/kg 300-1000 [facility] ID Date Data Source [id number] 01/16/2021 08:29:33 AM EDT [facility] Name Value Range Interpretation Code Description Data Tyra rce(s) Supporting Document(s) Urea nitrogen [Mass/volume] in Urine 421 mg/dL [facility] ID Date Data Source [id number] 01/16/2021 03:10:09 PM [facility] Name Value Range Interpretation Code Description Data Tyra rce(s) Supporting Document(s) Protein [Mass/volume] in Urine 331 mg/dl [facility] Confirmed Albumin/Protein.total in Urine by Electrophoresis 83.2 % [facility] Alpha 1 globulin/Protein.total in Serum or Plasma by Electrophoresi s 2.1 % [facility] Alpha 2 globulin/Protein.total in Urine by Electrophoresis 3.9 % [facility] Beta globulin/Protein.total in Urine by Electrophoresis 6.1 % [facility] Gamma globulin/Protein.total in Urine by Electrophoresis 4.7 % [facility] Protein Fractions [Interpretation] in Urine by Electrophoresis [facility] Pathologist name [facility] ID Date Data Source [id number] 01/15/2021 10:33:39 PM [facility] US RENAL OR AORTA COMPLETE [id number] RE SULTInterpreted by:Elliott Rubio, MDPROCEDURE INFORMATION: Exam: US Retroperitoneal Complete, Kidneys [...] rce(s) Supporting Document(s) ID Date Data Source [id number] 01/15/2021 09:32:18 PM [facility] Value Range Interpretation Code Description Data Tyra rce(s) Supporting Document(s) Glucose [Mass/volume] in Capillary blood by Glucometer 273 mg/dL 70- 140 H [facility] ID Date Data Source [id number] 01/15/2021 07:37:10 PM [facility] Value Range Interpretation Code Description Data Tyra rce(s) Supporting Document(s) Troponin T.cardiac [Mass/volume] in Serum or Plasma 0.26 ng/mL <0.01 [facility] No Significant Change since last result called ID Date Data Source [id number] 01/15/2021 09:29:10 PM [facility] Value Range Interpretation Code Description Data Tyra rce(s) Supporting Document(s) Cobalamin (Vitamin B12) [Mass/volume] in Serum or Plasma 670 pg/ml 2 11-946 [facility] ID Date Data Source [id number] 01/15/2021 09:29:10 PM [facility] Value Range Interpretation Code Description Data Tyra rce(s) Supporting Document(s) Complement C3 [Mass/volume] in Serum or Plasma 124 mg/dL 90-180 [facility] ID Date Data Source [id number] 01/15/2021 09:29:10 PM [facility] Value Range Interpretation Code Description Data Tyra rce(s) Supporting Document(s) Complement C4 [Mass/volume] in Serum or Plasma 28 mg/dL 10-40 [facility] ID Date Data Source [id number] 01/15/2021 09:29:10 PM [facility] Value Range Interpretation Code Description Data Tyra rce(s) Supporting Document(s) Ferritin [Mass/volume] in Serum or Plasma 369 ng/ml 13-150 [facility] ID Date Data Source [id number] 01/15/2021 09:46:08 PM [facility] Value Range Interpretation Code Description Data Tyra rce(s) Supporting Document(s) Iron [Mass/volume] in Serum or Plasma 35 ug/dl 37-145 [facility] Transferrin [Mass/volume] in Serum or Plasma 163 mg/dL 200-360 [facility] Iron binding capacity [Mass/volume] in Serum or Plasma 226 ug/dl 228 -428 [facility] Iron saturation [Mass Fraction] in Serum or Plasma 15.0 % 20-55 [facility] ID Date Data Source [id number] 01/15/2021 05:20:01 PM [facility] Value Range Interpretation Code Description Data Tyra rce(s) Supporting Document(s) Glucose [Mass/volume] in Capillary blood by Glucometer 297 mg/dL 70- 140 [facility] ID Date Data Source [id number] 01/15/2021 04:02:57 PM [facility] Value Range Interpretation Code Description Data Tyra rce(s) Supporting Document(s) [facility] QGXJYk1yCiNTIkXd96/OXXakIIKks3ApLYdtSHh3YCvwWLNjV7SaSJA2aG2eJGI8BPjFCfDcYbQnDGF5 [facility] [file] MDAwMDAxMTExMiAwMDAwMCBuDQowMDAwMDEyMDcxID EbBFGxRI1GPoKtABEfHLMmDbZrEBFmPZUrrd9VGBLkSFQhBzB0PJCcUJMsVXZgDIylHVXwUKYtCJWjPZ KtCNUfPW1GTbGoLLEuTDK7DZswZSQxNYAcny1FDHOxGZRxRyqdOXOcNDObEPPqMJctQMQiALC4ErAdWT MpGONgMT5LVcXzPTBjEZI7GQHmBCWrYCYorq8BULHs JDAiYKv6HlNiGGYpJREsDBawZLWyHTJ9ECC6JMKaTCEhWL0SFsJwSXjuLELSUdj0KPpaI4x6CDGwSg3Y W4Qrr2TyVjFwRIIXZJljJJ8sfvWdHBEmQu2PO8vSTyo5SPoqFtH5RHObJjZ4IdysKqClWNJ6OnP7Omc1 FQVyHT6eMWGmOZQlOhr2WWCqSqEsNTXnRpPuOYamZw S7AFefDFXuNsGiMT6NHw7JThY2COQ1lCGsVm8FHQIcLDOHBeGgCC4FAKm= ID Date Data Source [id number] 01/15/2021 12:56:10 PM EDT [facility] Name Value Range Interpretation Code Description Data Tyra rce(s) Supporting Document(s) Glucose [Mass/volume] in Capillary blood by Glucometer 352 mg/dL 70- 140 [facility] ID Date Data Source [id number] 01/15/2021 02:01:19 PM EDT [facility] Value Range Interpretation Code Description Data Tyra rce(s) Supporting Document(s) Troponin T.cardiac [Mass/volume] in Serum or Plasma 0.21 ng/mL <0.01 [facility] No Significant Change since last result called ID Date Data Source [id number] [facility]05[facility] Code Description Data Tyra rce(s) Supporting Document(s) EKG [facility] TTRPCp6dMqYWQbJme4IzAvOfHBJhRN1gpeq5E6Y1pGHtS8QvjSCvz5vuD4YgP7HjBFEyNZDUVW7BgIFu jb2 [file] 3jb/2je36q4Ns18J8/6z/6StRv7/88S3pvfJs3mqDX Iv/jkybNf48viBrXr78fb5AfQwxr/um7W6b/8t8N4r/88W4Wd+wVP88x/8ZW8b/xf/rz41d/Txc90r/8 mRJZM005I2/lomJ1B998b11Sn+oQmkwOI8b2cGF/NzaI/n3W90vpY63+28P/3uIZLX8YR9eKEF3N+8UO v/pTMtK/6+JgKz4A92du/Dzn/tt3veT3ckKy7YUfM0 7pa8/gVzvTv/ih80jhmPVo/wU8s6xW6/LrysU5Xew/8itV3F+9/qwKfw5+9aRv/0Jn7Gxeoau6+FVeo6 ft6DdbSxlQ+URpydp7e4yce/Nl5OfFuoP2ev+oZ6L+iSZX6ijRR/oOjN/eH6yYX2/uv4qe5kEL20k/8K vMH7h+7O9It6rStPes+o4g718MPdbukFd7BjSdVK6M y584L007hQPMeB24XuSDibYn0E+Zvxl0lkD/Bjte4ERtg6owZTpRdV+RXv9yl2/gm1UR0mQL/a6/6g35 tblG8YrYT/IbF215tsd0id/yL4ZKsf4lq2eTv2p05doCD/v1ufgp06ah21zv9ibf3U4k8Ommf33o7Es1 YdZHq5u2J9/Keg6/xrySs5ieRmz8o5myU2E59EbagR raQuBvMjMoD89e9/Ry6Ge1C/zyKwW/VvWhWJ3E2TM/Xk2EM7ClrfcEF+u6/Mjnh24CGF8EU/06Mrpdu4 +5dF3+pWXqQ1Tg0KlXe9QxJSypq/GnOH6xm+18Rfyl8xWWp5zzFjxO62qrtxWwqaAtlG/V32eyIm/ase j03Mjbuf+/iwX29Thkfw+/2iOuP+tvbDc//GrHBvPD r+K7+rMF+01P5E/kL+Qv5G/k75c/cI9JThcMdK4Em5zZM7oz29cFdblc84v3ulHTN32hL8t7pfwqE/Id +B10prm02t3fuZ80du4Ewjit5ipyvoZu658omp+eNPLlXh/8KtOKfEV+Wm0TO9s36YDSspW3M3x++lUP frUjPV+/9PC2sHe48odxdbi166sEgM034xQaVTOZ+Y M9qy2Ehe3E8Og0MdwBO/Kh7+FXT52G+uXz3AeBga21II83wQfzU4aT+ga/OuO6B7+K/A59+x2/Z/P0m9 izm9UfqeGYxzy+OM8RJjCd6Cn72g55Y/kT+tV42Ro5s+FXb/odI7kh0Zbqc/FsaTgtk0sxwn+AvqPfdk e/9hnQN/gGscLRw2eEgfJ5m+D+jnn9//IrQ866tHiY X3c9Usem86eWnePCzz3l9PYmQ1P0Ednh5Qegg/XsGJp7h4X7Lq340nehyFflV/mSoEmcO2DYrnDo4/WO +gn0Qno95W/lN2u9QS1pes5tE+myvP3RR+6v3/N9Q60XE262R35Y0PQBM86eIj/qiF91v/H2Pm+8vc+G fEH+jV/1iF+FLhG/cy2Ur2qYZ1/nI2zP9Rr75bfBlh 74c5/3/WEbty7TqPr0hOJ+ngvtQt/lH8Zl2IkfnlnDorM0Gu+Agtv6BQ6I81XGk+K4zM7xJ4BepN/yqw 5+1cGv+zW1cMqd8ch6x8+dfjeXLBjWnfcK794oC31z/Q1+gdqdxt9Aoseu5qc4A/by3lcuB+wp3Lk0Yf PVvs/0RiKPKwm0484EqrTqYi0cX88o9u5dDkZ+de7L aDf+PNp93h/jld0LHWI/88Nw3rdwwedwz7Kx3+CI+AJMBr0z64O/mphRvG6a8h/b61b8LeebfEJyyw3M Q+7z/gEq1xfnvkeJ0AjYRly3YIww/6coG00JFcc+CYBQ4eJiD250zprQe29hTMsCa0bodN/N28ffDq/e Xc3h1RptOcp2GxicfsSj/Miranda+4WK43XLysn89L7qtY hV1n/nqxHxq/F6ljJSJHnoUWQN+s6zUA7Y7lg+Ffc6+BHHct5Neza1bHphwyvgxU20Cv81foeO7I89zz S/Gu9m4/Mhx7+x1/hvzYg++C+zPU2374yS/zwbjWcL3/csl0l4w26+9qdzZ17urAr2gVq9f3f668GG+N SKbR9qME1+Yp/Na5YtIqsYV/rxTtVol9ELCt/e4oxz vz6W65jzc8UsfdN3a9gpuYfWkePOV+5Np0nm9hm+FfvRx30+AvHkXh1m749ot18Zm2koKNC8scnELlX9 Xe+O4hDu5Y8Auk48hlYz+2CR27US6wfI7a+FuJ9IKd/3xUH33ojomjI/oZ6N+u/2rNT4d8Kk+3GkcQ2e 99UlcotTi0NkbdKsR/LR4c07dxab94ZQ9/qM9mc85d Abzxl+2stLocywNYpddbI9V9839Qx+rHsq5o6CI/pOjN+J+NgwR9imhIm5khU66k5N+safR/CrTE/0Z6 I/9/1vmTlv2yy5Ui28DJ9dW/fw5Mun75vl8oJvzY7Xq7ixH46+7h8JjFEEr+HnS8G4DTc/l++m4 CuKal2TSj64BsGavSgqVJziE/xfjDqjPeDmX/fh57N vxmHPHt/i1huMgT32WO+6/4ZolminsT2yjkm3Ewpnh1P55vY/V/XPhv+vK++9y551hfJL1x72YmzI46r 7cbbrSnyO/NhzW0Nbyz2Gyc0JZ29aOQmtZvQo6rd+yvxadAujeXd7XqD3aw60h2hmkp3ByLmoU/PRyb3 +lxrWm1U1TwDp+R35N/uLLM5ZZbuk00A5kPppdPOTk tvcvKzk/ryE4339eSiRwF88gC0uYfd/rTfR2YTtrfsumRzp3/U3bradkX2wqe7LL01ewN8CWArC2eMTb 0KQ6ZrkkUxgA/GNYdvZFlvtw+O/BuftIhfZdmF+hfyN/oDfQ+/Spv0+3xkEb/Ka+TaIeJXUU/ErzK/4/ r+ru+I1fvW4jon/Qp+BykhW768gxEbw/EN6/d50Pp9 /bF4M3te3u85I93d17lxUKjTkv+tTF9/jvjVk75+G+4MV1gxpsZ+wqbihglSe2D4RsDy+AjLxx9N0SKr QR0D8R58hsXc/hDYvl3rh1d2E253i5+/Fvwqr+l3PFpH/Ri/hvGL+JUZxi/iV2aO/kxcP5G/kL+Qv5GP +mv14joqI1HgkI/wx2Ug0aTht8xijBI704b/jvvrhn y7fus3/ng81o9faqmqhK7x+mq0rqki/Cqun/Dn2ZCP+zsF+XrrmTdeZxP+SVxvwvwtA5Os1V6ahWgZ14 ge+e353KTYiGttIh7Tl3g/C/24yheFZi9wqn9J3gn9QZ0AaRQohE4g+SPfk2njvfy2OvLK3Vow5/nX1o 5V8xwdWLc4Kjoob++1feOxtu/3szJyaD4t+6uo [file] ID Date Data Source [id number] 01/15/2021 08:04:26 AM EDT [facility] Name Value Range Interpretation Code Description Data Tyra rce(s) Supporting Document(s) [facility] IOHKMd9vQgLIIiGot8JkGqSwTJWnPV9qakf3P5V5rKPgS4KuyZIox9dvC2WbC7WyNYToHXXMJE5OtONx 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/WU9FebjPp0m20VfaiHEaip+WRemXmiiN9fpXSGrlTAgQ7EGlSMf/DLmpVE0kT2Rv+opTPyiYcgp2 A7gG7EGFZ+Q4Gd4vdLONS8cqw0vLXcI1/kD/Yaz30s dq0ggs3kai1TIK/QvWFTrmRySragyZT6T744U+JKG/He+ESyGSdJJ2tMJcL/UybbQEjxQL19Z/XBN5oj 6cyHuLaC50IW+tZVdBZKF2OUUGcJQbZlS4uthHpJTyskfYJ65ln1KmSy5Y07aeeeP/H83bGFmZVVcYoa 6JzK2Px3gNCXVCSwG6ZegmE5k7y330oDc/g+UUrj+0 IYakNGeaaWZP4zK3ift8Er8I4/HzWALU5jKLdbPr5l2zn7dNp91/eF5bqNnJloud+7/Fc732/51n/jwG Gh7HeWHztj04R2KqDb8y1ip+i8Lqyex4ewdwm3v73cc2n7un6tf7/1uSJY6Xg+E+Ezqoo5yX74c42nfv pg79/08IpmygER10chfuyW92x6H+900I8rFm5pfRfL C+P/7lwysqmpD8/a98LxRUGyuy75cvexwkr+Xm/Zhs13n4/l5O1oxrY2ciowvB1RbhaTsz++F/qV6c/V 1vnvEOb0K8Et5tK7TjenDpg48H0atf7zraotftRrglF2TV1Bna0++b6KkBawy7oBI/x/c5j89WoaLmYZ +tA2kfoys/TGlh1sLtl5nr9u2/r+PCijvqC+oH7bq5 4gwvjfJth556w8/PC4v1aCyraF+reMenveufMF+s84kralxQ1C6YU1W/DE1XV3P/Hm1yvx7Ayj9svj0w Xj4vao7Py5r58Wwb8V4luqNshugMth0jrPb0oml5lrbM6tq3L+3KXuEZs1fJdZgyE0FNxdk964F/pZA3 6yS3ambP+RLzGB0o8jeTvuonz+e80BuD2nrJq6qZ+U F+rXbT+2nQtpq6J9bpQ9Co06fulG2n4LM9Cqsd4Kybeq9TUCog1dj16Vd4hGH1SkVMr/B4wQYqK0ap6A 37Hnr+r7iU50P1VryJOF3lqpcpIli0mHwWdpbu6a4aatzdcpb/hi86GD4cj4oI985+HS7Lwzbgr+9nHv C3PHc+x7n3ed/1SeJ7q1373rcmT37IS+mAba154q/N dLf0kb4WH0N4A/xetk165t48FjX6pvF/df1e/6au9j3rdhEd+702r4boqqg3Ic9x6/JvmY16fiyB+o3/ adie697/tr26sY+UWjrKP5C/hjs2ox5hDEvzrXkatl+4jR879+/fwmu0zgdEX4xd1e1d3cUVB3rCY96/ xnPgC4OWb+l9sG0Gok96Z/6tZidySQ4YyhQjvv3kg5 R7fjtq1sj37Zntl0iY/5+nPjq9P+a6++Fmf2fQ1wM+0a8i78fP9e/XxQRvuvvaOqfl/vNLx03zGI8BD7 Zx4cZ2s/7T1ltN/2dtV/9V4n5FnTlmTejdrmvP6XVcav0GqK18HrWFkfhv2pY21qx3fxYp7YD+rXrd/4 2i3iqho910h4IUdrRM3tA5nxHyKiVa30eZqlGQ5kc2 062nfUG+lV8H64V/1A/WW5VV6F/nP4ca50kyl5qd2G5GO5SdS5zsd4WaFryAHDWO83D+zvjKjS4u1sdw y//ky63u3gQvhkcMoC7p01CfZn1WYn63g2pwvN47Lp5ihoiMJclM7op+k91x2xVz/h+jakxGXnwj6F9e m1n3tjLTsN+tM1oRbe71LK9C1zp2qm/M6j19s7s3bi Tsfubdxv+NulsyS38/SeuwqbB71sPk8OagZ+o35s+lf9CE9GmuW4Dmt99Xa20IPXR900os0PstHXEyvK r059Q/dWDF4lP+oN7Q1y/MGI3wB695omH1C+FK5KDtwnoDnT1n5lam1sN61cin2lPOP+cQ0qaaM5rg6N e229njgPiYw7BM00b2guzwdscnmwjm/4qif0xj2CH4 9pi+Ogzw3l5/wbbiao6N3tcpVLpnh4p1e4VXN8cwgAz3d2qc/f+VuGWkLH1hRfDpQ1SD+gc4N2kydbS1 w1Ut1IW7/i5obR6Xkh67H/8y0rm6d516xU07S4Bpe49SxjMy08eecXv48vLcmG2hKg42tmy50OuG6qC+ yWJ+ns0mjhdFm07vE5Lne9pdxPv/Gklwfkr3E+69Xe Yn1s3/fnnNUl4Zs375zXt0PNJ9/W1eeKf2RT2q3lvXJ9j/Apong9g4h++62TpYZv2vwFh5a7teg123D/ ykNlu+Hlg2Ylk2pj/gBsvJB9m29nTh3L4nPeco3f486b7IaK02l67A/IH5D/nVeIbds9Q47uI37sm+f6 gN8Br196AM/zdO+nXwgo64d5ma2Ki+N7ocx6jrVx31 nieQKbfCKzv8xe0sj7Wuc/7kEC8sej0xrrv902t2L5R4+/6vq7Y5W09D4kD/2Bv21IUqdlgdmbTbbac9 4sD22Fy1j3QDhoFlPwvZVDm+R/1athb1CsULnLH6wxr777uSCDnOi+rv+77JXMbW/J2bQEiqz8N5V5xR pvfLWka+OraL/dVhxs42cf1xPQl3x8E67t6bsq5fph fuiP/6P8rdf+6j5i4tuncMUh2/uz5Bbc42l+ZdRPtJ+Qs+346bvkjyliPZlCb190eM4m+Lz16x6eulfi QjJ925dTraH97I95Hrg/7qJzkf7YVGy/G1+9ZchfkL+u/I0z1dDDE6RxHDmFpOtGiLcooVQT56d5xHz9 tLc7/g0pFf7w+KoCdI5M4QmypLg+RpDs6DHm0hlis/ QGlGs16d8p0W6x149lVzaEB3uoa+OrU+4C11B4J8r19wlBXU+OsN9E62l1rfF5Bs0rAVrEi+e9ubh0Nk gq1FaF7qtp6Fu9XR05vjZT6uY0d/e+WLmpVT35co96l5/53i+Er84+5nu/WFivgK+p0JY4lBBOy9Sfhv kLX+19RhqLCpgOk281QH4/TqcY6424q9J1bd4Rqsav 9R167/13b1R+08g2nt6Zzvb9fkuFdUlIjl77bs4w/SUhC461j/Jps/JT9fA3Pargo9uzhqe8s97z0CP4 4jX90BAt6bvr5hen1/nelrzf+//RqwI2ng+rTzDUlWFvMX04tb5F/YZH3dnhU+d2zDwb5p5sj2w+lL8Y cu9F/gxWFXV01FR7mtjC+pqsPfj4JJJ+d21WacK9vf Q6rIM4WpmesTNfLG5KboW+vt9yl750BS9l+Cr8v/XS4bm72/J9SxiazxL+zgAxic7GeVB1z1e+42Hjq7 aJcke0r75ywwe5F9iZ7HcjukeznXKQ+EpxG/iZ5rfjQ8rfza22/f2Ax5rhPK+9/zKTsgF4AWukKe1f6f 86fY4e39qLPpYvSUX3/hG+Gyr2Zs3Nx6DZUy9l9j2n /ga+2tdO+OwhuFhc92FDifgv6yoraV5WI6RiwFMsoZuQi4T53CJqNe3HoxYt9Dt3zdnBed005XMjuasV NyPiMI4EiXh9tl/xlQTUiSDaa524O7bm+Wx2XF5I6WhOebzd9t/zmkaB3d3LA+Er+Xzg+xsm7hfSB1P5 3TgRvoq+HZP41hkUz8SzSp5Kg/SB+9FAPAtfKYbHxH gm6jF/c7VXKsqlP8511NtxzAHgvgk38ilUz87Zupr+4pY+cf+kD8652v+ifJ9/u/VA7N4QFcX/YpwT8h pqZ34MiuxuK/nr4ue9+fct1yt/WtloD70fXAZm8+vMT8WFzHThp+SvVB4X/auxOp5F+wk5C+O6nAPwk5 +xsNlaD2aajFdVtPKMNvW4LjMF8hp48ym54nCwFy4C Kd01eW75c5MDMcScTE0C/Vr1U2WsxbKx395e3L02nla/Ad2NI81r3jqrG+agj4kV35OrtaYp+4uVez+y cuevlRvPVmBvufFsZUL+sZGM6yiwf9iA/J2/WsWfl4XtWZ/9u0d+bVfj9ev65+1xs19dmg48R6N+KX/l 65wsrNrC6yswik6Hy3c+x/Rb21w33P08rY/cW3Yj/2 c69hhu2baxdmkN1vap22VHgh/NZFvyeT9T+8Gor2h/35dZvB+BywqEpsgnjb941k83c0m4M36hygOGuS qDgRP5nu0Jt0TK/j9p2Fqnz5+Wa9Zzbp1xU+x9uW+bHc/Ch3ETr2xQDQ4pNJQJ8v58to+0/dnv+5S9Gf qdIjXgBe2X/bryDfbafZ+yd+PuUuxd2qMq2Jd85gB8 lm++fW+/fAhv7e44FlsfR0Hj7S5ysRO/BQ4uBVkao4260Hy+xds8udSRw6/2gti9nlmY1g0sBzW+sL7b bc+p4cmK36iHdhluV/76vf+a3+jjm6aJzz6o4K526y7045NUROtyAVw3iee1LywbeX5qwdQR7/j2Zm+w xL4h0s8m+JZmb6+X7hl22vs1/tUtxd2vHtpr0oSA9Y 4Xohw6jXZqeB/E1XcI7iP5i33/ZOO+XzC9H/R3S+1Zu/R+8JSvn/V+5UbteBSM73RV5zm0FQH+UHNZ7w fbQQAwQH5CU2M/6QAq2E4L4CBr+35Oozri0jKD+Te7RbO17Z/LT0RifPXtk4Y832CxdUzR1pElH5ySON t/pTGveuN/uEizg4cdE2WK82bM9RqkV+Rj/i8X1kGD H6CV1Zpv2Q/7kT93/e1argAo5e1BE4E7Uhv88mQ6C/iozb2+/drol5hDeerKmhej1EDqeX9sw0Y+RP1E /KDo4Fa9a751gg64tc0vDv4IyimwrL/fb+vWgYZ5fr2mW+RwayD0b4L0vGxaX4Tb8c8ILx2qeuiCev3f fFntH8cq8foc+5eg4zcuPDthchgcxr8kVg82RbVduT qllW63zvELT4T22i+4gb7Zh2dyYpd47y41uD7wDfsy8td80f60gO2747f/eMrvOubtfs/gwldRrqi/77 dj1aaTBaJf6d5Zfu93j8893y2MhrmMaxf4Jz0cM9s/J0ICdp0liCx6EWP7+z2D9/s9g/s8yHU7Im39a2 9H3u/yqlsJr92i1mYi661TD64GKt14T4m+qql+Py+c st02A+7S7odm2/yVI3/cnE677waD/JVH/urdvPqWK+kr0vdol43J1d7TqeagE9cc12/bff51u++P3O77 D2c3FMy68Y4j/Z5av1zN+7bz7hxcat8A4N/UF9Tj+vp9n+J+68a51OUesQ/9Ys69lnls1/vG6wqofieU vkP+zveJxis3tdo+vzplyF+Oo369aP94rwg/3+f4uN /nuL6/kt5xv8/x0dD+3tlH18sbh/BR4BKeqIfl0a/K117hq+l81S1BT1/gI3Os84ty9ko68zxTZT29t/ a82tgd8+berxR417zl909+1Tv9X1aqN0sWKSu3g7/yed+H+mV1i6N0226d0rmXqptio5/xwy9B9YX6cw /JE92xKx9/cnx/5fj+yvH9la/6eV7H64oz+z9Yi60h /OzrPu/8eok4UP/4/ku6lzCR77DJyV625nph3zs3ua5u7ogr77vascmaS3Geny3Ygv6wIKn8uhAVe3yy d42nd2HmvXexmR9qK7QEmfWZU85v9wGr4BGyD7ewRwqv+xy1v8+/M17pmbJpDtX96QaaYSU7CHbn2clG uc/7V16ldiuvbvX7VubAJ5Nekc+S/EkbL2Ao3/1R7/ KrmTA1Yc5b3XeOt/YgzGqv8tcRhy/VAnEahiecRh6tmdm9SB/L6WT73odu+weY/+5Z5O744a9us/md5n 2eR/zw+6tqyjASlJ15mswBRMzRvvNzloomL7Z7c27fD9lry7bO+7gu8HkDR1/pqLh7umty3Tiv60RO3p m/WG56nZ0tYvtOsmkZM4RqBHx+QC8SUWwVPFfvm7Pt g3ODYuFACbK2kyToaKkl8XkDGbAlBI9bPFmIiHzbvaUEWNZdQCiHXDd7ZJK3iGAo28nU3qcNHXr6vXVq uJNjyKC5c5A0m+dxCbs/Sa2Y4pz/fI20bCNSbr3ho/1hxZ7e9CL1o47A3M8Z9/jN8iDs/wM4gui4cMOv CPr1blI8sG45YPZcxCXFe8JrqsXmPLuF3eS0quO4Q4 xT90Tq68bTmJiZ2Pm2BEY5hx2FvpL9B1TDaHtDoJxbe8sI9SGw0MQroYq3MCQ5PKxK0sP/JZqeHP9lv0 dD9nke/dHCtc/bqQfytqt0z/1F0ia+nCml+yyAByKs5blu+0O2L/T5TkZqQzJm38A+z+dnbE1UnPxzmU Pl5tM5hX1MpN8d7rpanm3n+ugF7qES/fpgf+j2JeYe gSbTPs+bhTz31cv605K3YReJ61Shm1/y9NeW3eIW9/gmj82W2nw8Ku+v16R9yx/r3O3Fw5/d7DS23Avj sKA8JANM06v1lwSa45g9xH3OlUs89xhwYZvGqV1lV63gdA5ROSM3SU+jv5mYRx/iHzqOm2lAxw/n8SHE FY8Voe5+nKk9u61IZ+lbH3CW2wGIexYDwAiQNWI9KX feQnf4aevP1kxegWr4MkOpS8HAbQEHc/dHG81A3ZUnTsYZrr8dQkb6IYrh44+nmUi4KhLEgFRWym1/S8 FZHcEyj3ynSApr9sN0ZFoa0mArBntjOlBYo9GvDHm6RmIG4qFEl9wQcgxbltvOHW6VsP8MNIgjtivunA UbS1cuPvm3o1Ul1QM+980YDuHPFTBcMCJdFJIeZPV7 PB29SOHhChkRcho2HgY1Etc9nPEkeOIcTZ7t5cOVbF4ePEi8QU+OYFDPpDTGgXBiTAzhxAiX/bGb1hkl jGdLN403VVZO4Rb7nufha6YulY3L9iXCpSF9klaGiKwQ6YEx28C5St1UW1BXlPfuYC72EF1oaulaLNzS lKsuYG3UYnD+ppV7R5/CiboHT+XT9l2wrSChwedzLF WcKHwLtv2onnzbBWh7dGV8NGYGG/ORBFXzNiGorpDvxGphnGR0gb2LwCqVZNPGV4/za0A54EGlbh1FU9 lZM82ZmGeUhQEVPg2EkkaL00WgfHO9t6ERuS/hfODQCi5be7KAXhQnbiCSRN8Bnip5Nf3uxTt20u5rRI XGOC5cEgqFFVWm4KrosQrZKAFXtOOPC7s5pUO+jdI6 [file] ID Date Data Source [id number] 01/15/2021 08:03:04 AM EDT [facility] Name Value Range Interpretation Code Description Data Tyra rce(s) Supporting Document(s) [facility] DAZAQz6bLqTSTeGuu7PxRoBmBCXkEP8jktt2D1X5fFJnB3SxzNMut0ibJ8BzG0PwMXEnWFNKAU5VzRTj jb2 [file] 3f3bfo/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//nX/4sesreP/zo64upHm1/7sPXLzu+tfme46kk1h724x4kkhj/N/06syw5az9/y0 ///qe//qlUq0369//99t2f/vzn7//61x++//M/vH3x/U9/+uHPb//632T+69+//eWnN/u1+X6y6beCnw aDo3BctbwlQzMFAS31Sqgup4//Bw+5rajSqzz182dO 23w97R+8X7/9PwDjm+wB1z9e/+qGi79q3Md//XS81LyyvM4o7n9APXED1/N81k38w87mwyADcN/w8Yd/ /+Fxn5zJr757ddHekn/vv/zy/dv/9fXrWn/1s+G2n/6dDMr39pr44KG0/xql8ee++U85tCI1xFzt1C3s TuzBvvvhp//8x7e/fv+fP/xs76+632v13mm/9CMvUm gPJj5+ufczd9/+9NN//vDX//e/nSdcjxg569vSe6/Y/Wd277j/fPz27d/+1+vc//KXs867++g772pa3y 4e7F8+/jqcTp0Ev8wbDes5+LS36gG9x/yzW6BR3bqwu229BgoVno/t2wiK//T5ExvBoa3+6tPb9//fD/ /xX2+e58qp/OrdNx9/dTcqet1/K69753/+69//4tf7 SvzTDz9+/+pcUdH0U/zz7//XH7//jz99/1Cl0dGrVdIIQ/3y/88dtfqf//t//e9jxo9/+cuPn/1Gxy9+ sMf75V/++QvRs6IBM6YUTi791Tw/+dOf/nj8z46cX2U54yB/4sdBLZI//o//fM27f/vs82/wo/t7Sd+8 HsPffP8/fniTt7/8+2mLNf2VCW/u9G/zZy1evI/vX9 sv9/O5G12hH//3yXbo6PkTuh4t4wF/hjajrSxI1544/vnXv//z2uaJf9SF3tpC12Z+f/GeinNOZR0bx1 BqMQLkVfVrVF8daazpCIAvOS4ubdf0F0BqgOdhGHhLCZFvJo0auUEqSC7VSDC4RSqaUDFvPPXeR5PtlV 0rC28jpBUzEtPuLXPOSN2YpvE5DWG1XVZ9YSWoNqIc AHNqAE92NNVuLPUVRg6ncnOsHftRVkQbXV9bghl9F9G3zBLfS535rQpnojXpQF5Un4OuyUMrIQ4AaOMy vUQcGMTwYTFnR4tat8IoTOgpXQQCAe0bhfUqKwsRTgYkRB1deri8R2J2rYfdgoXsWFOUUFlqGsvtJI7f fSzauqvqG6SdgCPzFUDjE2KtTQRtz91TGSBnSCiQBc ChPwDnYLG7UNvvLohkIbJqHEWiBZAuKRDjKA9ZkTKdLSWhFAUKJGqeLcrtSTNnjX3mgPFZg4AbMB9VLY gYW6KBZIIVCYhUNQAVZWB9CKZaTYHoOX8EaIWbIIE2NUbRRTFYWNdXWGjjHiWou7F8EPBlL0JiDDWurn WgKWKBNSmjXwjhGW3moWhxfspyF9NqtYRwVNCYKQKe MPVaMQBtOINeZ9Ymd2C1N0HfEVhBVLOFTJhLCYymIsA6a98jkjNNLIZyINBwDL9+ZH4ta9NbEu2SVZHa ZP8vbdc5KW7SjFGmPX5EKOkywrIbG4mdmkMzUzPiQGAVDZ3hO5GkaL83YNR+UjSmAE8coby4diQiYsSt VQWnTISsOVLsIZfaNHNjWKRhRENnFFP1NTZ6WQQoPf JpNEUfRdCvMFNjVMRlZQLemqNSPHQvXGZ8JZv3CsYtYYRuNJLwEAvbDLIwBMF7QQGxSINlWUGvGD8qVf KyGKVvHJHkYPBzPkZ8SyWeKzACJDFcFXFvVHSbZtClOHRyJQVcZBlwQVYyDCMsJZt1SFDbATEaJQ0mGs RcWELvJVNmUGCjWANwGZHnirMLWJBdMWMpPVV2FFYz VDGhTKZxFXlbORHdZKPlPCW9YZLnGVVkTB2iIfVyZPYdDYQ2ZoUlGJClOJYlyvVTFYHrZKOaGOB6NPUq DSYqMNIeAVydRNYmESVfXrS8HPJaAWTpCZ5aWzFrOIKgLWO4QGEmVXGeEXOvjbCHTNPoYOQiCYg3TsGi ONMbJDZbARlhBZUrOKXdCXkcQLZcBWPsJP4pCdMrTD EpPJSaTZGiRREdVMVnvyGODWDrGJQjVGX4TyNjVRPxHJKjSGylSOPjRKUiMJB2JKFfTZLpTN6oDbOhGR DtJsZ6VoIzIWBzSEVighCYKWElSSTuJQOnGENlYNKbREAiCEjmYYZtLVTnRhR3TIVkNWGeNY2eFxNcPJ GqQEU4PPMeGAHuJIXrylPUYFYaKATvLTFdMRN2HCFi MLPrLOm6tlEdyZXwJer2Sk6VoXzuMTU1Yn3MfrWzIFGcUUYENr0Zw457USNjVRQKFbr+PgpzdGFydHhy LJRDMaTeYhaHBOUFR9G= ID Date Data Source [id number] 01/15/2021 08:05:36 AM [facility] Name Value Range Interpretation Code Description Data Tyra rce(s) Supporting Document(s) Glucose [Mass/volume] in Capillary blood by Glucometer 305 mg/dL 70- 140 [facility] ID Date Data Source [id number] 01/15/2021 04:56:00 AM [facility] Name Value Range Interpretation Code Description Data Tyra rce(s) Supporting Document(s) Leukocytes [#/volume] in Blood by Automated count 11.7 10*3/uL 4-10 [facility] Erythrocytes [#/volume] in Blood by Automated count 2.90 10*6/uL 4.1- 5.3 [facility] Hemoglobin [Mass/volume] in Blood 8.2 g/dL 11.5-15.5 L [facility] Hematocrit [Volume Fraction] of Blood by Automated count 24.9 % 3 6-45 [facility] Erythrocyte mean corpuscular volume [Entitic volume] by Auto mated count 85.6 fL 80-96 [facility] Erythrocyte mean corpuscular hemoglobin [Entitic mass] by Automated count 28.4 pg 27-33 [facility] Erythrocyte mean corpuscular hemoglobin concentration [Mass/volume] by [facility] 33.1 [facility] [Ratio] by Automated count 14.0 % 11.5-14.5 [facility] Platelets [#/volume] in Blood by Automated count 149 10*3/uL 150-400 [facility] Differential cell count method - Blood [facility] Neutrophils/100 leukocytes in Blood by Automated count 84 % [facility] Lymphocytes/100 leukocytes in Blood by Automated count 10 % [facility] Monocytes/100 leukocytes in Blood by Automated count 6 % [facility] Eosinophils/100 leukocytes in Blood by Automated count 0 % [facility] Basophils/100 leukocytes in Blood by Automated count 0 % [facility] Neutrophils [#/volume] in Blood by Automated count 9.88 10*3/uL 1.8-7 .0 [facility] Lymphocytes [#/volume] in Blood by Automated count 1.12 10*3/uL 1.2-4 .0 [facility] Monocytes [#/volume] in Blood by Automated count 0.64 10*3/uL 0-0.8 [facility] Eosinophils [#/volume] in Blood by Automated count 0.01 10*3/uL 0-0.5 [facility] Basophils [#/volume] in Blood by Automated count 0.04 10*3/uL 0-0.2 [facility] Nucleated erythrocytes/100 leukocytes [Ratio] in Blood by Automated count 0 /100{WBCs} 0-0 [facility] ID Date Data Source [id number] 01/15/2021 05:16:47 AM [facility] Value Range Interpretation Code Description Data Tyra rce(s) Supporting Document(s) Bicarbonate [Moles/volume] in Serum 22 mmol/L 22-29 [facility] Chloride [Moles/volume] in Serum or Plasma 104 mmol/L 98-107 [facility] Creatinine [Mass/volume] in Serum or Plasma 2.44 mg/dL 0.50-0.90 [facility] Glucose [Mass/volume] in Serum or Plasma 335 mg/dL 70-140 [facility] Potassium [Moles/volume] in Serum or Plasma 4.1 mmol/L 3.4-5.1 [facility] Sodium [Moles/volume] in Serum or Plasma 140 mmol/L 136-145 [facility] Urea nitrogen [Mass/volume] in Serum or Plasma 46 mg/dL 8-23 [facility] Anion gap 3 in Serum or Plasma 14 mmol/L 8-15 [facility] Osmolality of Serum or Plasma by calculation 315 mosm/kg 275-300 [facility] Creatinine/Urea nitrogen [Mass Ratio] in Serum or Plasma 19 [facility] Calcium [Mass/volume] in Serum or Plasma 8.8 mg/dL 8.8-10.2 [facility] Glomerular filtration rate/1.73 sq M pre dicted among non-blacks [Volume Rate/Area] in Serum or Plasma by Creatinine-based formula (MDRD) 19 mL/min/1.73m2 >60 [facility] Glomerular filtration rate/1.73 sq M pre dicted among blacks [Volume Rate/Area] in Serum or Plasma by Creatinine-based formula (MDRD) 22 mL/min/1.73m2 >60 [facility] ID Date Data Source [id number] 01/15/2021 05:16:47 AM EDT [facility] Name Value Range Interpretation Code Description Data Tyra rce(s) Supporting Document(s) Magnesium [Mass/volume] in Serum or Plasma 2.1 mg/dL 1.6-2.4 [facility] ID Date Data Source [id number] 01/15/2021 05:16:47 AM EDT [facility] Value Range Interpretation Code Description Data Tyra rce(s) Supporting Document(s) Phosphate [Mass/volume] in Serum or Plasma 3.6 mg/dL 2.5-4.5 [facility] ID Date Data Source [id number] 01/15/2021 05:16:47 AM EDT [facility] Value Range Interpretation Code Description Data Tyra rce(s) Supporting Document(s) Troponin T.cardiac [Mass/volume] in Serum or Plasma 0.29 ng/mL <0.01 [facility] No Significant Change since last result called ID Date Data Source [id number] 01/14/2021 10:46:01 PM EDT [facility] Value Range Interpretation Code Description Data Tyra rce(s) Supporting Document(s) History and Physical [facility] [id number]1uNTV1EIbJRsFwRvRxHDX5 lbm [file] 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/7jHbYbiJGXubCLKMYBb3gLLvxApnf8Gz4oTfxgl8QfakupnKLUGdO8R7wYYNjDtKnKK8ttKMLxLQZ [file] [id number]+DKpeiOKqsXbkCXVMRzV4ETQ1JDtbTKSXMc7P ID Date Data Source [id number] 01/14/2021 10:07:26 PM EDT [facility] Name Value Range Interpretation Code Description Data Tyra rce(s) Supporting Document(s) Glucose [Mass/volume] in Capillary blood by Glucometer 289 mg/dL 70- 140 [facility] ID Date Data Source [id number] 01/19/2021 09:43:04 AM EDT [facility] Service Cmnt XXX-Imp : SNGMicroorganism XXX Cult : No growth 5 days Name Value Range Interpretation Code Description Data Tyra rce(s) Supporting Document(s) ID Date Data Source [id number] 01/14/2021 10:37:42 PM [facility] Name Value Range Interpretation Code Description Data Tyra rce(s) Supporting Document(s) Troponin T.cardiac [Mass/volume] in Serum or Plasma 0.33 ng/mL <0.01 [facility] No Significant Change since last result called ID Date Data Source [id number] 01/14/2021 09:53:07 PM [facility] Name Value Range Interpretation Code Description Data Tyra rce(s) Supporting Document(s) Color of Urine [facility] Clarity of Urine [facility] Specific gravity of Urine by Refractometry automated 1.009 1.003 -1.030 [facility] pH of Urine by Automated test strip 5.0 5.0-8.0 [facility] Protein [Mass/volume] in Urine by Automated test strip Neg [facility] Glucose [Mass/volume] in Urine by Automated test strip Neg [facility] Ketones [Mass/volume] in Urine by Automated test strip Neg [facility] Bilirubin.total [Presence] in Urine by Automated test strip Negative [facility] Hemoglobin [Presence] in Urine by Automated test strip Neg [facility] Leukocyte esterase [Presence] in Urine by Automated test strip Negative [facility] Nitrite [Presence] in Urine by Automated test strip [facility] Leukocytes [#/area] in Urine sediment by Automated count 1 /HPF 0 -5 [facility] Erythrocytes [#/area] in Urine sediment by Automated count 1 /HPF 0-3 [facility] Service comment [facility] Bacteria [#/area] in Urine sediment by Automated count Non e [facility] Epithelial cells.squamous [#/area] in Urine sediment by Auto mated count 2 /HPF None [facility] Hyaline casts [#/area] in Urine sediment by Microscopy low p ower field 4 /LPF None [facility] Crystals.amorphous [#/area] in Urine sediment by Microscopy high power field None [facility] ID Date Data Source [id number] 01/14/2021 09:05:19 PM EDT [facility] Name Value Range Interpretation Code Description Data Tyra rce(s) Supporting Document(s) [facility] [id number]/ZHGrwMIApv1MvUHpjTWv1NXajEZCjT4JeQFD1cM6hTHY3DEuKEhGpRhDrOFS7 lbm [file] [id number]4YiYcGA2TZt2YXzD2PIC8hCZnPf0ICcYhWBPOShQiLF4JPBq= ID Date Data Source [id number] 01/19/2021 09:43:04 AM EDT [facility] Service Cmnt XXX-Imp : R ACMicroorganism XXX Cult : No growth 5 days Name Value Range Interpretation Code Description Data Tyra rce(s) Supporting Document(s) ID Date Data Source [id number] 01/14/2021 06:26:32 PM [facility] Name Value Range Interpretation Code Description Data Tyra rce(s) Supporting Document(s) Glucose [Mass/volume] in Capillary blood by Glucometer 395 mg/dL 70- 140 [facility] ID Date Data Source [id number] 01/14/2021 06:53:26 PM [facility] Name Value Range Interpretation Code Description Data Tyra rce(s) Supporting Document(s) Hepatitis C virus Ab [Presence] in Serum or Plasma by Immuno assay Non Reactive [facility] No serological evidence of active infect ion. If recent exposure is suspected, test for HCV RNA. ID Date Data Source [id number] 01/16/2021 02:17:35 PM [facility] Name Value Range Interpretation Code Description Data Tyra rce(s) Supporting Document(s) Nuclear Ab Pattern Homogenous [Titer] in Serum <80 [facility] Nuclear Ab pattern.speckled [Titer] in Serum <80 [facility] Nuclear Ab pattern.rim [Titer] in Serum <80 [facility] Nuclear Ab pattern.nucleolar [Titer] in Serum <80 [facility] ID Date Data Source [id number] 01/14/2021 06:46:50 PM T [facility] Name Value Range Interpretation Code Description Data Tyra rce(s) Supporting Document(s) Troponin T.cardiac [Mass/volume] in Serum or Plasma 0.29 ng/mL <0.01 [facility] No Significant Change since last result called ID Date Data Source [id number] 01/14/2021 02:10:26 PM [facility] XR CHEST FRONTAL ONLY [id number] RESULTI nterpreted by:Davida Hawley MDINDICATION: sob COMPARISON: [...] rce(s) Supporting Document(s) ID Date Data Source [id number] 01/14/2021 02:28:27 PM [facility] Value Range Interpretation Code Description Data Tyra rce(s) Supporting Document(s) Prothrombin time (PT) 16.2 s 12.5-14.9 H [facility] INR in Platelet poor plasma by Coagulation assay 1.28 [facility] Routine intensity oral anticoagulation I NR is typically 2.0-3.0. Target INR must be clinically individualized. ID Date Data Source [id number] 01/19/2021 07:13:25 AM [facility] Value Range Interpretation Code Description Data Tyra rce(s) Supporting Document(s) ABO and Rh group [Type] in Blood [facility] Blood group antibody screen [Presence] in Serum or Plasma [facility] Performed at [facility], Andres Young, [id number] from 6A at 1005 on 01/17/21 by [id number] Blood bank comment [facility] ID Date Data Source [id number] 01/14/2021 12:52:22 PM [facility] Value Range Interpretation Code Description Data Tyra rce(s) Supporting Document(s) Troponin I.cardiac [Mass/volume] in Blood 3.11 ng/mL 0.00-0.08 H [facility] ID Date Data Source [id number] 01/14/2021 12:52:22 PM [facility] Value Range Interpretation Code Description Data Tyra rce(s) Supporting Document(s) pH of Venous blood 7.43 7.36-7.41 H [facility] Carbon dioxide [Partial pressure] in Venous blood 40 mmHg 40-45 [facility] Oxygen [Partial pressure] in Venous blood 26 mmHg [facility] Base excess standard in Venous blood by calculation 2 mmol/L [facility] Oxygen saturation Calculated from oxygen partial pressure in Venous blood 49 % 60-85 L [facility] Lactate [Moles/volume] in Venous blood 1.5 mmol/L 0.5-2.2 [facility] Bicarbonate [Moles/volume] in Venous blood 27 mmol/L [facility] ID Date Data Source [id number] 01/14/2021 12:48:40 PM EDT [facility] Name Value Range Interpretation Code Description Data Tyra rce(s) Supporting Document(s) Leukocytes [#/volume] in Blood by Automated count 12.7 10*3/uL 4-10 H [facility] Erythrocytes [#/volume] in Blood by Automated count 2.93 10*6/uL 4.1- 5.3 L [facility] Hemoglobin [Mass/volume] in Blood 8.3 g/dL 11.5-15.5 L [facility] Hematocrit [Volume Fraction] of Blood by Automated count 24.8 % 3 6-45 L [facility] Erythrocyte mean corpuscular volume [Entitic volume] by Auto mated count 84.5 fL 80-96 [facility] Erythrocyte mean corpuscular hemoglobin [Entitic mass] by Automated count 28.2 pg 27-33 [facility] Erythrocyte mean corpuscular hemoglobin concentration [Mass/volume] by Autom[facility] count 33.3 g/dL [facility].0-[facility] width [Ratio] by Automated count 13.8 % 11.5-14.5 [facility] Platelets [#/volume] in Blood by Automated count 159 10*3/uL 150-400 [facility] Differential cell count method - Blood [facility] Neutrophils/100 leukocytes in Blood by Automated count 83 % [facility] Lymphocytes/100 leukocytes in Blood by Automated count 9 % [facility] Monocytes/100 leukocytes in Blood by Automated count 7 % [facility] Eosinophils/100 leukocytes in Blood by Automated count 0 % [facility] Basophils/100 leukocytes in Blood by Automated count 1 % [facility] Neutrophils [#/volume] in Blood by Automated count 10.49 10*3/uL 1.8- 7.0 H [facility] Lymphocytes [#/volume] in Blood by Automated count 1.15 10*3/uL 1.2-4 .0 L [facility] Monocytes [#/volume] in Blood by Automated count 0.93 10*3/uL 0-0.8 H [facility] Eosinophils [#/volume] in Blood by Automated count 0.01 10*3/uL 0-0.5 [facility] Basophils [#/volume] in Blood by Automated count 0.07 10*3/uL 0-0.2 [facility] Nucleated erythrocytes/100 leukocytes [Ratio] in Blood by Automated count 0 /100{WBCs} 0-0 [facility] ID Date Data Source [id number] 01/14/2021 01:21:20 PM [facility] Name Value Range Interpretation Code Description Data Tyra rce(s) Supporting Document(s) Lipase [Enzymatic activity/volume] in Serum or Plasma 14 U/L 13-6 0 [facility] ID Date Data Source [id number] 01/14/2021 01:21:20 PM [facility] Name Value Range Interpretation Code Description Data Tyra rce(s) Supporting Document(s) Albumin [Mass/volume] in Serum or Plasma by Bromocresol green (BCG) dye binding method 3.5 g/dL 3.5-5.2 [facility] Bilirubin.total [Mass/volume] in Serum or Plasma 1.0 mg/dL <1.2 [facility] Calcium [Mass/volume] in Serum or Plasma 8.9 mg/dL 8.8-10.2 [facility] Chloride [Moles/volume] in Serum or Plasma 102 mmol/L 98-107 [facility] Creatinine [Mass/volume] in Serum or Plasma 2.01 mg/dL 0.50-0.90 [facility] Glucose [Mass/volume] in Serum or Plasma 428 mg/dL 70-140 [facility] Alkaline phosphatase [Enzymatic activity/volume] in Serum or Plasma 82 U/L 35-104 [facility] Potassium [Moles/volume] in Serum or Plasma 4.0 mmol/L 3.4-5.1 [facility] Protein [Mass/volume] in Serum or Plasma 5.9 g/dL 6.4-8.3 L [facility] Sodium [Moles/volume] in Serum or Plasma 138 mmol/L 136-145 [facility] Aspartate aminotransferase [Enzymatic activity/volume] in Serum or Plasma 19 U/L <32 [facility] Urea nitrogen [Mass/volume] in Serum or Plasma 40 mg/dL 8-23 H [facility] Osmolality of Serum or Plasma by calculation 314 mosm/kg 275-300 [facility] Creatinine/Urea nitrogen [Mass Ratio] in Serum or Plasma 20 [facility] Bicarbonate [Moles/volume] in Serum 25 mmol/L 22-29 [facility] Alanine aminotransferase [Enzymatic activity/volume] in Seru m or Plasma 15 U/L <33 [facility] Anion gap 3 in Serum or Plasma 11 mmol/L 8-15 [facility] Glomerular filtration rate/1.73 sq M pre dicted among non-blacks [Volume Rate/Area] in Serum or Plasma by Creatinine-based formula (MDRD) 24 mL/min/1.73m2 >60 L [facility] Glomerular filtration rate/1.73 sq M pre dicted among blacks [Volume Rate/Area] in Serum or Plasma by Creatinine-based formula (MDRD) 28 mL/min/1.73m2 >60 L [facility] ID Date Data Source [id number] 01/14/2021 01:21:20 PM [facility] Value Range Interpretation Code Description Data Tyra rce(s) Supporting Document(s) Troponin T.cardiac [Mass/volume] in Serum or Plasma 0.29 ng/mL <0.01 [facility] Results called to and read back by AMERICA [email or web address] at 1320 by 1519 ID Date Data Source [id number] 01/14/2021 01:21:20 PM [facility] Value Range Interpretation Code Description Data Tyra rce(s) Supporting Document(s) Magnesium [Mass/volume] in Serum or Plasma 2.1 mg/dL 1.6-2.4 [facility] ID Date Data Source [id number] 01/14/2021 05:43:56 PM [facility] Value Range Interpretation Code Description Data Tyra rce(s) Supporting Document(s) Natriuretic peptide.B prohormone N-Terminal [Mass/volu me] in Serum or Plasma 97223 pg/mL <125 H [facility] ID Date Data Source [id number] 01/14/2021 06:42:57 PM [facility] Value Range Interpretation Code Description Data Tyra rce(s) Supporting Document(s) Procalcitonin [Mass/volume] in Serum or Plasma 0.20 ng/mL <0.10 [facility] (NOTE) < 0.25 ng/mL Bacterial infec [...] to sepsis/septic shock. ID Date Data Source [id number] 01/14/2021 05:54:30 PM EDT [facility] Name Value Range Interpretation Code Description Data Tyra rce(s) Supporting Document(s) Hemoglobin A1c/Hemoglobin.total in Blood by HPLC 9.3 % 4.0-6.0 [facility] (NOTE)<5.7% Average risk of diabetes (ADA)5.7-6.4% Increased risk of diabetes(ADA)>/= 6.5% Diagnostic for diabetes(ADA) Glucose mean value [Mass/volume] in Blood Estimated fr om glycated hemoglobin 220 mg/dL <126 [facility] ID Date Data Source [id number] 01/14/2021 01:45:14 PM [facility] Name Value Range Interpretation Code Description Data Tyra rce(s) Supporting Document(s) ABO and Rh group [Type] in Blood [facility] Blood bank comment [facility] ID Date Data Source [id number] 01/14/2021 08:05:00 AM EDT [facility] Name Value Range Interpretation Code Description Data Tyra rce(s) Supporting Document(s) SARS-CoV-2 (COVID 19) NEGATIVE - SARS-CoV-2 (COVID19) [facility] This lab was ordered by [facility] a nd reported by [facility]. ID Date Data Source [id number] 01/11/2021 05:34:00 AM EDT [facility] Imaging Services Department Imaging Report [address] [place] [id number] %(RAD)RES..mtdd.print.filter("line") Name: OXANA CLANCY : 1950 Age/Sex: 70F Ordering Provider: Andre Streeter, Med Rec #: [id number] Reg Status: DEP REF Room #: Date of Service: 01/10/21 Report Number: [id number] cc:Andre Tompkins Reason, DO Send Report To: [id number] US/US Thyroid Ultrasound Exam Reason for exam: [...] REPORT SIGNATURE ON FILE Reported By: Krunal R Ewy, DO <Electronically signed by Krunal Hernández DO> 01/11/21 1109 Dictation Date/Time: 01/10/21 1602 Transcribed Date/Time: 01/11/21 0534 Operations Consultant: EFRAÍN Name Value Range Interpretation Code Description Data Tyra rce(s) Supporting Document(s) ID Date Data Source [id number] 12/15/2020 09:22:00 AM EDT [facility] Name Value Range Interpretation Code Description Data Tyra rce(s) Supporting Document(s) Glucose [Mass/volume] in Capillary blood by Glucometer 165 mg/dL 80-115 Above high normal [facility] ID Date Data Source [id number] 12/15/2020 07:00:00 [facility] Name Value Range Interpretation Code Description Data Tyra rce(s) Supporting Document(s) Glucose, Fasting 94 mg/dL 70-100 Normal (applies to non-numeric results) [facility] ([facility]) Creatinine For GFR 2.72 mg/dL 0.55-1.30 Above high normal [facility] ([facility]) Blood Urea Nitrogen 53 mg/dL 7-18 Above high normal [facility] ([facility]) Glomerular Filtration Rate 18.6 Below low normal [facility] ([facility]) <content>Units are mL/min/1.73 m2</content>
<content></content>
<content>Chronic Kidney Disease Staging per NKF:</content>
<content></content>
<content>Stage I & II GFR >=60 Normal to Mildly Decreased</content>
<content>Stage III GFR 30- 59 Moderately Decreased</content>
<content>Stage IV GFR 15-29 Severely Decreased</content>
<content>Stage V GFR <15 Very Little GFR Left</content>
<content>ESRD GFR <15 on VERIFYING SPECIALIST</content>
<content></content> Sodium Level 138 meq/L 136-145 Normal (applies to non-numeric res ults) [facility] ([facility]) Potassium Serum 3.8 meq/L 3.5-5.1 Normal (applies to non-numeric results) [facility] ([facility]) Chloride Level 99 meq/L 98-107 Normal (applies to non-numeric r esults) [facility] ([facility]) Anion Gap 10 meq/L 8-16 Normal (applies to non-numeric resul ts) [facility] Calcium Level 9.7 mg/dL 8.8-10.2 Normal (applies to non-numeric re sults) [facility] ([facility]) Carbon Dioxide Level 29 meq/L 21-32 Normal (applies to non-num [place] results) [facility] ([facility]) ID Date Data Source [id number] 12/12/2020 10:00:00 AM EDT [facility] Name Value Range Interpretation Code Description Data Tyra rce(s) Supporting Document(s) SARS-CoV-2 (COVID-19) RNA [Presence] in Respiratory specimen by ALLAN with probe detection Not Detected [facility] This lab was ordered by [facility] and reported by [facility]. ID Date Data Source [id number] 09/20/2020 03:15:00 PM [facility] Name Value Range Interpretation Code Description Data Tyra rce(s) Supporting Document(s) Hemoglobin A1C % Less than 5.7% Above high normal [facility] HBA1C: Normal: Less than 5.7% Prediabetes: 5.7% to 6.4% Diabetes: 6.5% or higher HA1C % vs Estimated Average Glucose (eAG) % eAG % eAG 6% 126 mg/dL 10% 240 mg/dL 7% 154 mg/dL 11% 269 mg/dL 8% 183 mg/dL 12% 298 mg/dL 9% 212 mg/dL Reference: [place] [employer], 2017 ID Date Data Source [id number] 09/20/2020 02:28:00 PM [facility] Name Value Range Interpretation Code Description Data [facility] rce(s) Supporting Document(s) Creatinine,Urine Normal (applies to non-numeric results) [facility] Interpret with care as there is no estab lished reference range associated with this assay's methodology that pertains to this particular sex and/or age. Microalbumin,Urine <1.[address] [facility] Albumin/Creatinine Ratio,Urine Normal (applies to non-numeric results) [facility] Reference Ranges for Microalbumin,spot: Normal <30 ug/mg creatinine Microalbuminuria 30-300 ug/mg creatinine Clinical Albuminuria >300 ug/mg creatinine ID Date Data Source [id number] 09/20/2020 11:49:00 AM EST [facility] Name Value Range Interpretation Code Description Data [facility] rce(s) Supporting Document(s) Sodium 137 mmol/L 137-145 Normal (applies to non-numeric resul ts) [facility] Potassium 3.5-5.1 Normal (applies to non-numeric resul ts) [facility] Chloride 103 mmol/L 98-112 Normal (applies to non-numeric resul ts) [facility] Carbon Dioxide CO2 22.0-33.0 Normal (applies to non-numer ic results) [facility] Anion Gap 4.0-11.0 Normal (applies to non-numeric resul ts) [facility] BUN 62 mg/dL 7-17 Above high normal [facility] Creatinine 0.70-1.20 Above high normal [facility] GFR 16 mL/min >60 Below low normal [facility] Result based on MDRD formula. Glucose Level 260 mg/dL 74-99 Above high normal [facility] The reference range is only applicable w hen fasting. Calcium-Uncorrected 8.4-10.2 Normal (applies to non-nume yun results) [facility] Corrected Calcium 8.4-10.2 Normal (applies to non-numeri c results) [facility] ID Date Data Source [id number] 09/10/2020 10:56:00 AM EST [facility] Name Value Range Interpretation Code Description Data Tyra rce(s) Supporting Document(s) SARS coronavirus 2 RNA [Presence] in Res piratory specimen by ALLAN with probe detection NEGATIVE [facility] This lab was ordered by [facility] a nd reported by [facility]. ID Date Data Source [id number] 07/10/2020 09:01:00 AM EST [facility] [address] [place] [address] PHONE: [phone] FAX: [phone] Name .................. : EARNESTINEYELENA OXANA Escamilla Acct Number.................. : [id number] ROOM. ................. : TR-05 MR Number ................... : [id number] Stay type ............. : E/R Discharge Date......... ... : 07/05/20 Admit Date ......... : 07/05/20 Admit Phys .................... : TONIA CASPER Date of ....... : 1950 Family Phys ................... : REASON EDW Phone .................. : [phone] Age ................................ : 69 Film# .................. .:[id number] Sex ................................. : F Unsigned transcriptions are preliminary reports and do not represent a medical or legal [place] [id number] COMPLETE:07/05/20 19:10 [place] [id number] Reason(s): Hx of osteo and gangrene FIRST [...] By Parminder Diamond MD , 07/10/20 09:01, [facility] Transcribe Initials: DANYELLE , Transcribe Date: 07/05/20 23:57, Dictation Date: Copy for: [facility] AGU[facility] via fax Copy for: EMERGENCY DEPT via modem Copy for: 710 MED REC DISCHARGED Page 1 of 1 Name Value Range Interpretation Code Description Data Tyra rce(s) Supporting Document(s) ID Date Data Source [id number] 07/10/2020 09:01:00 AM EST [facility] [address] [place] [address] PHONE: [phone] FAX: [phone] Name .................. : JULIETH Escamilla Acct Number.................. : [id number] ROOM. ................. : TR-05 Number ................... : [id number] Stay type ............. : E/R Discharge Date......... ... : 07/05/20 Admit Date ......... : 07/05/20 Admit Phys .................... : TONIA CASPER Date of ....... : 1950 Family Phys ................... : REASON EDW Phone .................. : [phone] Age ................................ : 69 Film# .................. .:[id number] Sex ................................. : F Unsigned transcriptions are preliminary reports and do not represent a medical or legal document CHEST 2 VIEWS 39535 COMPLETE:07/05/20 19:10 [place] [address] Reason(s): b/l LE edema w/ hx of [...] Date: 07/05/20 23:54, Dictation Date: Copy for: [facility] AGU[facility] via fax Copy for: EMERGENCY DEPT via modem Copy for: 710 MED REC DISCHARGED Page 1 of 1 Name Value Range Interpretation Code Description Data Tyra rce(s) Supporting Document(s) ID Date Data Source [id number] 07/10/2020 09:01:00 AM EST [facility] [address] [place] [address] PHONE: [phone] FAX: [phone] Name .................. : JULIETH Escamilla Acct Number.................. : [id number] ROOM. ................. : TR-05 MR Number ................... : [id number] Stay type ............. : E/R Discharge Date......... ... : 07/05/20 Admit Date ......... : 07/05/20 Admit Phys .................... : TONIA CASPER Date of ....... : 1950 Family Phys ................... : REASON EDW Phone .................. : [phone] Age ................................ : 69 Film# .................. .:[id number] Sex ................................. : F Unsigned transcriptions are preliminary reports and do not represent a medical or legal document DOPPLER VENOUS BILAT LEG 52802 COMPLETE:07/05/20 18:41 ADB 26273 Reason(s): Pain, Limb BILATERAL LOWER EXTREMITY DUPLEX [...] By Parminder Diamond MD , 07/10/20 09:01, [facility] Transcribe Initials: DANYELLE , Transcribe Date: 07/05/20 21:09, Dictation Date: Copy for: [facility] AGUILAR via fax Copy for: EMERGENCY DEPT via modem Copy for: 710 MED REC DISCHARGED Page 1 of 1 Name Value Range Interpretation Code Description Data Tyra rce(s) Supporting Document(s) ID Date Data Source [id number] 07/06/2020 07:13:00 [place] [address] RESPIRATORY CARE REPORT ==== ---------NAME------- NUMBER SEX AGE ADMIT DISC. XRAY# F/C ASA Escamilla [id number] F 69 07/05/20 07/05/20 [id number] MBJoel E/R DATE OF : 1950 M/R# [id number] #: [id number] TR-05 LOCATION: EMERGENCY DEPT EKG [id number] COMP LETE:07/05/20 23:50 [place] [address] PHYSICIAN: TONIA LUNA CH Name Value Range Interpretation Code Description Data Tyra rce(s) Supporting Document(s) ID Date Data Source [id number] 07/05/2020 03:34:00 PM [facility] 1 OrderSheet [facility] Emergency Department [address] [place] [address] Phone #: [phone] ext- [phone] 07/05/2020 15:34 Patient: OXANA CLANCY Sex: F : 1950 Age: 69yWEIGHT:93.8 kg HEIGHT:61 inches BMI:39.1ALLERGIES: PenicillinsCHIEF COMPLAINT: pain, swellingDIAGNOSIS: Cellulitis of skin, OsteomyelitisLAB ORDERSOrder Description Priority Entered Acknowledged InitialedCBC w Diff STAT 16:30 07/05/2020 16:34 Justino Fields.N. P.A.-C;CMP STAT 16:30 07/05/2020 16:34 Justino Fields.N. P.A.-C;Lipase STAT 16:30 07/05/2020 16:34 Justino Fields R.N. P.A.-C;PT/PTT STAT 16:30 07/05/2020 16:34 Justino Fields R.N. P.A.-C;Troponin-T STAT 16:30 07/05/2020 16:34 Justino Fields R.N. P.A.-C;BNP STAT 16:30 07/05/2020 16:34 Justino Fields.N. P.A.-C;Urinalysis (Clean STAT 16:30 07/05/2020 Ack'd: 16:34Catch) Beatriz Amador P.A.-C; R.N.Sed. Rate STAT 16:33 07/05/2020 16:34 Justino Fields R.N. P.A.-C;CRP STAT 16:33 07/05/2020 16:34 Justino Fields R.N. P.A.-C;Blood Culture STAT 17:51 07/05/2020 18:08 barrie Fields0m X2 (Sched Justino Dixon.N.17:51 07/05/2020) P.A.-C; 2 OrderSheet [facility] Emergency Department [address] [place] [address] Phone #: ext- [phone] 07/05/2020 15:34 Patient: OXANA CLANCY Sex: F : 1950 Age: 69yBlood Culture STAT 17:51 07/05/2020 Initialed: 18:08 Beatriz Fields R.N.q10m X2 (Sched Justino Luna Cancelled: Physician Order 18:15 Diamond,18:01 07/05/2020) P.A.-C; Beatriz R.KristoferDIAGNOSTIC STUDY ORDERSOrder Description Priority Entered Acknowledged InitialedUS Lower Ext STAT 16:38 07/05/2020 16:46 Diamond,Venous Bilateral Justino Henderson R.N.(Oxygen?(No)) P.A.-C; Reason for Study: Pain, Limb, Swelling, LimbChest 2 View STAT 16:38 07/05/2020 16:46 Diamond(Oxygen?(No)) Justino Dixon.N. P.A.-C; Reason for Study: b/l LE edema w/ hx of CHFToes Right STAT 16:38 07/05/2020 16:46 Diamond(Oxygen?(No)) Justino Dixon.N. P.A.-C; Reason for Study: Hx of osteo and gangreneMEDICATION/IV/DRIP/FLUID ORDERSOrder Description Priority Entered Acknowledged InitialedGENERAL ORDERSOrder Description Priority Entered Acknowledged InitialedBlood Pressure 16:30 07/05/2020 16:34 Diamond,Monitor Justino RouseN. P.A.-C;Baby Attendant 16:30 07/05/2020 16:34 Diamond(continuous) Justino Dixon.N. P.A.- C;EKG 16:30 07/05/2020 16:34 Justino Fields.N. P.A.-C;NPO 16:30 07/05/2020 16:34 Justino Fields R.N., P.A.-C;Obtain Old EKG 16:30 07/05/2020 16:34 Justino Fields R.N., P.A.-C;Obtain Old Records 16:30 07/05/2020 16:34 Justino Fields R.N.;Pulse oximeter 16:30 07/05/2020 16:34 Diamond, 3 OrderSheet [facility] Emergency Department [address] [place] [address] Phone #: ext- [phone] 07/05/2020 15:34 Patient: OXANA CLANCY Sex: F : 1950 Age: 69y(Continuous) Justino Henderson R.N., P.A.-C;Saline Lock 16:30 07/05/2020 16:34 Justino Fields R.N., P.A.-C;Vitals 16:30 07/05/2020 16:34 Justino Fields R.N., P.A.-C;Dress Wounds 19:06 07/05/2020 19:08 Justino Fields R.N., P.A.-C;[Electronically signed by Justino Luna P.A.-C (20:13 07/05/2020)][Electronically signed by Vivi Macdonald R.N. (05:21 07/06/2020)][Electronically locked by Vivi Macdonald R.N. (05:21 07/06/2020)] Name Value Range Interpretation Code Description Data Tyra rce(s) Supporting Document(s) ID Date Data Source [id number] 07/05/2020 03:34:00 PM EST [facility] 1 Medication Reconciliation Report [facility] Emergency Department [address] [place] [address] Phone #: ext- [phone] 07/05/2020 15:34 Patient: OXANA CLANCY Sex: F : 1950 Age: 69yWeight: 93.8 kgHeight/Length: 61 in.BMI: 39.1ALLERGIES: PenicillinsThe patient's Home Medications are listed below:THE [...] 1 tablet, 2x a day, last dose: [id number] Lasix Oral (20 mg), daily Losartan Potassium Oral 50 mg, daily Multivit amins Oral 1 pill, daily Omeprazole Oral 40 mg, daily Plavix Oral ROPINIRole HCl Oral (1 mg) 1 tablet, 2x a day, last dose: [id number] 2 Medication Reconciliation Report [facility] Emergency Department [address] [place] [address] Phone #: ext- [phone] 07/05/2020 15:34 Patient: [...] Code Description Data Tyra e(s) Supporting Document(s) ID Date Data Source [id number] 07/05/2020 03:34:00 PM [place] [address] Medication Administration Record [facility] Emergency Department [address] [place] [address] Phone #: ext [phone] 07/05/2020 15:34 Patient: OXANA CLANCY Sex: F : 1950 Age: 69yWeight: 93.8 kgHeight/Length: 61 inBMI: 39.1ALLERGIES: PenicillinsDate/Time Medication Administered Medication Ordered Name Value Range Interpretation Code Description Data [facility] Supporting Document(s) ID Date Data Source [id number] 07/05/2020 03:34:00 PM [place] [address] General Instructions [facility] Emergency Department [address] [place] [address] Phone #: ext- [phone] 07/05/2020 15:34 Patient: OXANA CLANCY Sex: F : 1950 Age: 69yCellulitis of the right foot.Subacute osteomyelitis of the right foot- from local infection.(Electronically signed by Justino Luna P.A.-C 07/05/2020 20:13) Name Value Range Interpretation Code Description Data Tyra rce(s) Supporting Document(s) ID Date Data Source [id number] 07/05/2020 03:34:00 PM EST [facility] 1 Clinical Report - Nurses [facility] Emergency Department [address] [place] [address] Phone #: ext- [phone] 07/05/2020 15:34 Patient: OXANA CLANCY Sex: F : 1950 Age: 69yTRIAGE Arrived by private vehicle. Historian: patient. Accompanied by friend. Triage time: 15:37 07/05/2020. Acuity: LEVEL 3. Chief Complaint: RIGHT LOWER EXTREMITY PAIN and SWELLING. LEFT LOWER EXTREMITY PAIN and SWELLING. Alert. Onset. (pt states "this is ongoing" worse about 4 days. pt d/c from [facility] Friday for same issue). She has had swelling. ( pt had US last week. Pt has blockage in right leg, 1 balloon placed. pt reports procedure to be repeated Friday. pt reports infection in right great toe. pt reports she was told it may be osteomyelitis and require amputation). Treatment MANAGER OF ENGINEERING: None. --15:43 07/05/20 Leslie Reyna R.N. 15:37 07/05/20. BP: 146/54. HR: 70. RR: 22. O2 saturation: 96%. Temp: 97.8 F. Pain level now 02/08. --15:43 07/05/20 Leslie Reyna R.N. Weight: 93.8 [...] Reyna R.N. 2 Clinical Report - Nurses [facility] Emergency Department [address] [place] [address] Phone #: ext- [phone] 07/05/2020 15:34 Patient: [...] uses cane. 3 Clinical Report - Nurses [facility] Emergency Department [address] [place] [address] Phone #: ext- [phone] 07/05/2020 15:34 Patient: [...] sonogram by wheelchair with IV, mask and auto glass technician. --16:47 07/05/20 Beatriz Fields R.N. 16:09 07/05/2020 [...] Fields R.N. late entry - 17:45 07/05/20. potline monitor, NIBP monitor and pulse oximeter placed [...] Fields R.N. 4 Clinical Report - Nurses [facility] Emergency Department [address] [place] [address] Phone #: ext- [phone] 07/05/2020 15:34 Patient: OXANA CLANCY [facility]#: [id number] Sex: F : 1950 Age: 69y 16:30 [...] Fields R.N. late entry - 18:45 07/05/20. potline monitor, NIBP monitor and pulse oximeter placed [...] late entry - 18:54 07/05/20. ( Called [facility] to give NTN). --19:24 07/05/20 Beatriz Fields R.N. late entry - 19:11 07/05/20. ( Called again to give report to [facility] too busy). --19:25 07/05/20 Beatriz Fields R.N. ( Spoke with [facility] paper mill supervisor regarding report was told to get fax number and send the overview). --19:26 07/05/20 Beatriz Fields R.N.DISPOSITION / DISCHARGE 19:49 07/05/[address] Site #[address] upon transfer. --19:49 07/05/20 Matt Quintanilla RN Departure time: 19:51 07/05/2020. Condition at departure: stable. Transferred to [facility]. Visit overview, summary of care (CCDA), Emtala forms and Face Sheet provided to EMS and transfer facility via paper. Transported via ambulance by EMS ([facility]). Report was given via visit overview. Report was acknowledged. --19:52 07/05/20 Matt Quintanilla RN 5 Clinical Report - Nurses [facility] Emergency Department [address] [place] [address] Phone #: [phone] ext- [phone] 07/05/2020 15:34 Patient: OXANA CLANCY Sex: F : 1950 Age: 69y 19:49 07/05/20. BP: 170/86. MAP: 114. HR: 72. RR: 18. O2 saturation: 95%. Temp: 98.6 F. Pain level now: 11/08. --19:52 07/05/20 Matt Quintanilla RN.Locked/Released at 07/06/2020 05:21 by Vivi Quintanilla R.N. Name Value Range Interpretation Code Description Data Tyra rce(s) Supporting Document(s) ID Date Data Source [id number] 07/05/2020 03:34:00 PM EST [facility] 1 Clinical Report - Physicians/Mid Levels [facility] Emergency Department [address] [place] [address] Phone #: ext- [phone] 07/05/2020 15:34 Patient: [...] R foot. Pt was recetnly dc'ed from [facility] on Friday for multiple issues. Orgianlly presented to the [facility] ER with nonhealing R toe gangrene 2/2 diabetic ulcer. Pt was admited for 9 days and while there she had transfusion, IV abx, underwent angioplasty R anterior tibial artery and dorsal artery, and diuretic change due to CKD4. Pt was to f/u wiht PCP, nephrolgoy and a Dr. Cotton within [...] [Chronic]. 2 Clinical Report - Physicians/Mid Levels [facility] Emergency Department [address] [place] [address] Phone #: ext- [phone] 07/05/2020 15:34 Patient: OXANA CLACNY Sex: F : 1950 Age: 69yAnxiety Reaction [...] Oral. 3 Clinical Report - Physicians/Mid Levels [facility] Emergency Department [address] [place] [address] Phone #: ext- [phone] 07/05/2020 15:34 Patient: [...] Neurovascular intact 4 Clinical Report - Physicians/Mid [facility] Emergency Department [address] [place] [address] Phone #: ext- [phone] 07/05/2020 15:34 [id number] Sex: F : Age: 69y distally. No [...] Tests: Blood Culture: (SANDY: 07/05/2020 18:01) ( [facility] 07/05/2020 18:16) Canceled Sed. Rate: (SANDY: 07/05/2020 16:30) ( [facility] 07/05/2020 17:54) Su l results Test Result Flag Units (Reference) SED RATE 111 H mm/hr (0 - 30) SED RATE REENTER 111 CRP: (SANDY: 07/05/2020 16:30) ( [facility] 07/05/2020 17:09) Final results Test Result Flag Units (Reference) CRP-HS 14.86 H MG/L (1.00 - 3.00) CDC/AHS HS-CRP CUT-OFF: RELATIVE RISK: <1.0 mg/L Low 1.0 - 3.0 mg/L Average >3.0 mg/L High Optimally, the average of HS-CRP results repeated two weeks apart should be used for risk assessment. CBC w Diff: (SANDY: 07/05/2020 16:30) ( [facility] 07/05/2020 16:54) Final results Test Result Flag Units (Reference) CBC W/AUTOMATED DIFF COMPLETE BLOOD COUNT WBC 11.7 H 10/uL (4.2 - 11.0) RBC 3.11 L 10/uL (4.20 - 5.40) HEMOGLOBIN 8.8 L g/dL (12.0 - 16.0) HEMATOCRIT 26.7 L % (37.0 - 47.0) MCV 85.9 fL (81.0 - 101) 5 Clinical Report - Physicians/Mid Levels [facility] Emergency Department [address] [place] [address] Phone #: ext- [phone] 07/05/2020 15:34 Patient: [...] Male GFR Interprentation 20-49 yrs >60 mL/min Bwvfxd96-12 yrs >56 mL/min Normal 60-69 yrs >49 mL/min Normal 70-79yrs>42 mL/min Normal 80 and above >35 mL/min Normal Female GFRInterpretation 20-39 yrs >60 mL/min Normal 40-49 yrs >58 mL/minNormal 50-59 yrs >51 mL/min Normal 60-69 yrs >45 mL/min Zmwghu55-04 yrs >39 mL/min Normal 80 and above >32 mL/min NormalLipase: (SANDY: 07/05/2020 16:30) ( [facility] 07/05/2020 17:09) Final results Test Result Flag Units (Reference) LIPASE 13 U/L (13 - 60) 6 Clinical Report - Physicians/Mid Levels [facility] Emergency Department [address] [place] [address] Phone #: ext- [phone] 07/05/2020 15:34 Patient: OXANA CLANCY Sex: F : 1950 Age: 69y PT/PTT: (SANDY: 07/05/2020 16:30) ( MsgRcvd 07/05/2020 17:09) Final results Test Result Flag Units (Reference) PROTIME 18.7 H SECONDS (11.0 - 15.5) INR 1.54 H (0.93 - 1.23) PTT 44.9 H SECONDS (24.8 - 36.7) \\BLDo\\INR INTERPRETATION\\BLDx\\ Therapeutic range for Coumadin and related oral anticoagulants. - International Normalized Ratio (INR): 2.0 - 3.0 for Venous Thrombosis, Pulmonary Embolus, Tissue heart valves, Acute IN Atrial Fibrillation, Valvular heart disease and recurrent [...] concerns, or complaints. Pt recently discharged from [facility] for numerous nad various issues. [...] further eval. Pending resutls. reviewed documenation form [facility]. pt was on IV vanc. [...] worsening. 7 Clinical Report - Physicians/Mid Levels [facility] Emergency Department [address] [place] [address] Phone #: ext- [phone] 07/05/2020 15:34 Patient: OXANA CLANCY Sex: F : 1950 Age: 69y Pt failed outpt therapy. Pt may be a candidtate for central line as oral abx are not working. Will contact [facility] [place] ortho, podiatry, or PICC team. Called [facility] and dicussed with Vivi [facility] calls back. Discuss with Dr. [...] health care provider (Tonia). Disposition: Transferred to [facility]. UTI (catheter associated) was not present prior [...] rce(s) Supporting Document(s) ID Date Data Source [id number] 07/11/2020 07:00:00 AM [facility] [address] Name Value Range Interpretation Code Description Data Tyra rce(s) Supporting Document(s) Bacteria identified in Blood by Culture [facility] NO GROWTH AFTER 5 DAYS ID Date Data Source [id number] 07/11/2020 08:12:00 AM [facility] Name Value Range Interpretation Code Description Data Tyra rce(s) Supporting Document(s) CULTURE BLOOD [facility] spital _CULTURE BLOOD_ TEST PERFORM ED AT [address] [address] CLIA# [id number] SEE SCANNED REPORT{ PRELIM ID Date Data Source [id number] 07/05/2020 05:54:00 PM [facility] Name Value Range Interpretation Code Description Data Tyra rce(s) Supporting Document(s) Erythrocyte sedimentation rate by Westergren method 111 mm/hr 0 - 30 H [facility] SED RATE REENTER 111 [facility] ID Date Data Source [id number] 07/05/2020 05:09:00 PM [facility] Name Value Range Interpretation Code Description Data Tyra rce(s) Supporting Document(s) Prothrombin time (PT) 18.7 SECONDS 11.0 - 15.5 H [facility] INR in Platelet poor plasma by Coagulation assay 1.54 0.93 - 1. 23 H [facility] aPTT in Blood by Coagulation assay 44.9 SECONDS 24.8 - 36.7 H [facility] \\BLDo\\INR INTERPRETATION\\BLDx\\ Therapeutic range for Coumadin and related oral anticoagulants. - International Normalized Ratio (INR): 2.0 - 3.0 for Venous Thrombosis, Pulmonary Embolus, Tissue heart valves, Acute IN Atrial Fibrillation, Valvular heart disease and recurrent Systemic Embolism. - International Normalized Ratio (INR): 2.5 - 3.5 for Mechanical Prosthetic valve. ID Date Data Source [id number] 07/05/2020 05:09:00 PM [facility] Name Value Range Interpretation Code Description Data Tyra rce(s) Supporting Document(s) C reactive protein [Mass/volume] in Serum or Plasma by High sensitivity method 14.86 MG/L 1.00 - 3.00 H [facility] HS-CRP CUT-OFF: RELATIVE RISK: <1.0 mg/L Low 1.0 - 3.0 mg/L Average >3.0 mg/L High Optimally, the average of HS-CRP results repeated two weeks apart should be used for risk assessment. ID Date Data Source [id number] 07/05/2020 05:09:00 PM [facility] Name Value Range Interpretation Code Description Data Tyra rce(s) Supporting Document(s) BNP 4850 PG/ML 0 - 125 H [facility] [place] ID Date Data Source [id number] 07/05/2020 05:09:00 PM [facility] Name Value Range Interpretation Code Description Data Tyra rce(s) Supporting Document(s) Lipase [Enzymatic activity/volume] in Serum or Plasma 13 U/L 13 - 60 [facility] ID Date Data Source [id number] 07/05/2020 05:08:00 PM [facility] Name Value Range Interpretation Code Description Data Tyra rce(s) Supporting Document(s) COMPREHENSIVE METABOLIC PANEL [facility] COMPREHENSIVE METABOLIC PANEL Sodium [Moles/volume] in Serum or Plasma 136 mEq/L 134 - 153 [facility] Potassium [Moles/volume] in Serum or Plasma 4.3 mEq/L 3.6 - 5.0 [facility] Chloride [Moles/volume] in Serum or Plasma 105 mEq/L 98 - 107 [facility] Carbon dioxide, total [Moles/volume] in Serum or Plasma 24 MEQ/L 22 - 30 [facility] Glucose [Mass/volume] in Serum or Plasma 188 MG/DL 65 - 110 H [facility] BUN 44 MG/DL 7 - 21 H [facility] Creatinine [Mass/volume] in Serum or Plasma 1.9 MG/DL 0.7 - 1.5 H [facility] BUN/CREAT 23 8 - 27 [facility] Protein [Mass/volume] in Serum or Plasma 5.3 G/DL 6.3 - 8.2 L [facility] Albumin [Mass/volume] in Serum or Plasma 3.0 G/DL 3.9 - 5.0 L [facility] Globulin [Mass/volume] in Serum by calculation 2.3 GM/DL 2.4 - 3.2 L [facility] A/G RATIO 1.3 0.8 - 2.0 [facility] Calcium [Mass/volume] in Serum or Plasma 8.7 MG/DL 8.4 - 10.2 [facility] Bilirubin.total [Mass/volume] in Serum or Plasma <0.7 MG/DL 0.2 - 1.3 [facility] Alkaline phosphatase [Enzymatic activity/volume] in Serum or Plasma 106 U/L 38 - 126 [facility] Aspartate aminotransferase [Enzymatic activity/volume] in Serum or Plasma 20 U/L 5 - 40 [facility] Alanine aminotransferase [Enzymatic activity/volume] in Seru m or Plasma 20 U/L 7 - 56 [facility] Anion gap 3 in Serum or Plasma 7.0 mmol/L 8.0 - 16.0 L [facility] AGE 69 yrs [facility] al NON-AA GFR 28 mL[facility] A[facility] AMER GFR >60 [facility] Male GFR In [...] >32 mL/min Normal ID Date Data Source [id number] 07/05/2020 05:04:00 PM EST [facility] Name Value Range Interpretation Code Description Data Tyra rce(s) Supporting Document(s) TROPONIN T 0.03 NG/ML 0.00 - 0.10 [facility] spital TROPONIN T0.1 ng/ml Recommended as the c linical threshold value forTroponin T. ID Date Data Source [id number] 07/05/2020 04:52:00 PM EST [facility] Name Value Range Interpretation Code Description Data Tyra rce(s) Supporting Document(s) CBC W/AUTOMATED DIFF [facility] COMPLETE BLOOD COUNT Leukocytes [#/volume] in Blood by Automated count 11.7 10^3/uL 4.2 - 11.0 H [facility] Erythrocytes [#/volume] in Blood by Automated count 3.11 10^6/uL 4. 20 - 5.40 L [facility] Hemoglobin [Mass/volume] in Blood 8.8 g/dL 12.0 - 16.0 L [facility] Hematocrit [Volume Fraction] of Blood by Automated count 26.7 % 3 7.0 - 47.0 L [facility] Erythrocyte mean corpuscular volume [Entitic volume] by Auto mated count 85.9 fL 81.0 - 101 [facility] Erythrocyte mean corpuscular hemoglobin [Entitic mass] by Automated count 28.3 pg 27.0 - 34.0 [facility] Erythrocyte mean corpuscular hemoglobin concentration [Mass/volume] by Automated count 33.0 g/dL 31.0 - 36.0 [facility] Erythrocyte distribution width [Ratio] by Automated count 12.9 % 11.5 - 14.5 [facility] Platelets [#/volume] in Blood by Automated count 234 10^3/uL 150 - 45 0 [facility] Platelet mean volume [Entitic volume] in Blood by Automated count 10.3 fL 7.4 - 10.4 [facility] Neutrophils/100 leukocytes in Blood by Automated count 74.3 % 37. 0 - 80.0 [facility] Lymphocytes/100 leukocytes in Blood by Manual count 15.1 % 25.0 - 40.0 L [facility] Monocytes/100 leukocytes in Blood by Automated count 7.5 % 3.0 - 8.0 [facility] Eosinophils/100 leukocytes in Blood by Automated count 1.8 % 0.0 - 7.0 [facility] Basophils/100 leukocytes in Blood by Automated count 0.3 % 0.0 - 2.5 [facility] %IG 1.0 % 0.0 - 0.0 H [facility] al %NRBC 0.0 % 0.0 - 0.0 [facility] al Neutrophils [#/volume] in Blood by Automated count 8.73 10^3/uL 2.00 - 6.90 H [facility] Lymphocytes [#/volume] in Blood by Automated count 1.77 10^3/uL 0.60 - 3.40 [facility] Monocytes [#/volume] in Blood by Automated count 0.88 10^3/uL 0.00 - 0.90 [facility] Eosinophils [#/volume] in Blood by Automated count 0.21 10^3/uL 0.00 - 0.70 [facility] Basophils [#/volume] in Blood by Automated count 0.03 10^3/uL 0.00 - 0.20 [facility] #IG 0.12 10^3/uL 0.00 - 0.10 H [facility] H ospital #NRBC 0.00 10^3/uL 0.00 - 0.00 [facility] H ospital MANUAL DIFF NOT INDICATED [facility] RBC MORPH NOT INDICATED [facility] spital ID Date Data Source [id number] 05/31/2020 04:25:00 PM EDT [facility] 1 OrderSheet [facility] Emergency Department [address] [place] [address] Phone #: ext- [phone] 05/31/2020 16:14 Patient: [...] rce(s) Supporting Document(s) ID Date Data Source [id number] 05/31/2020 04:25:00 PM EDT [facility] 1 Medication Reconciliation Report [facility] Emergency Department [address] [place] [address] Phone #: ext- [phone] 05/31/2020 16:14 Patient: [...] 1 tablet, 2x a day, last dose: 44 Lasix Oral (80 mg), daily Losartan Potassium Oral 50 mg, daily Multivitamins Oral 1 pill, daily Omeprazole Oral 40 mg, daily Potassium Citrate ER Oral (10 MEQ (1080 MG)) 1 tablet, 2x a day ROPINIRole HCl Oral (1 mg) 1 tablet, 2x a day, last dose: 44 Sertraline HCl Oral 50 mg, 2x a day Spironolactone Oral 50 mg, 2x a day 2 Medication Reconciliation Report [facility] Emergency Department [address] [place] [address] Phone #: ext- [phone] 05/31/2020 16:14 Patient: OXANA CLANCY Sex: F [...] rce(s) Supporting Document(s) ID Date Data Source [id number] 05/31/2020 04:25:00 PM EDT [facility] 1 Medication Administration Record [facility] Emergency Department [address] [place] [address] one #: ext- [phone] 05/31/2020 16:14 Patient: OXANA CLANCY Sex: F : 1950 Age: 69yWeight: 90.4 kgHeight/Length: 61 inBMI: 37.7ALLERGIES: Penicillins Date/Time Medication Administered Medication OrderedGiven SILVER NITRATE SWAB Silver Nitrate Swab 1 gzwumekmmfw52:53 05/31/2020 Dose: 1 application Topical Simon Dawson R.N. Topical Name Value Range Interpretation Code Description Data Tyra rce(s) Supporting Document(s) ID Date Data Source [id number] 05/31/2020 04:25:00 PM EDT [facility] 1 General Instructions [facility] Emergency Department [address] [place] [address] e #: ext- [phone] 05/31/2020 16:14 Patient: [...] closure or skin glue. 2 General Instructions [facility] Emergency Department [address] [place] [address] Phone #: ext- [phone] 05/31/2020 16:14 [id number] Sex: F : 1950 Age: 69yHome care [...] pain medicines were prescribed, you can use tkki-fgu-yhyoakt pain medicines. Follow instructions for taking any [...] while the glue is 3 General Instructions [facility] Emergency Department [address] [place] [address] Phone #: ext- [phone] 05/31/2020 16:14 Patient: [...] be painful when eating. You may use nedros-kxg-slpgyxf local numbing solution for pain relief. If [...] any of these occur: 4 General Instructions [facility] Emergency Department [address] [place] [address] Phone #: ext- [phone] 05/31/2020 16:14 Patient: [...] bleeding with direct pressure. 1999- 2017 [employer]. [address] [place] [address], [place] [address]. All rights reserved. This information is not intended as asubstitute for professional medical care. Always follow your healthcare professional's instructions. You have been given the following additional information: Laceration: All Closures(Electronically signed by Justino Luna P.A.-C 05/31/2020 23:24) Name Value Range Interpretation Code Description Data Tyra rce(s) Supporting Document(s) ID Date Data Source [id number] 05/31/2020 04:25:00 PM EDT [facility] 1 Clinical Report - Nurses [facility] Emergency Department [address] [place] [address] Phone #: ext- [phone] 05/31/2020 16:14 Patient: OXANA CLANCY Sex: F : 1950 Age: 69yTRIAGEArrived by private vehicle. Historian: patient. ( Pt presents with left thumb, pointer and ring finger lacfrom yesterday AM 0900, was seen at [facility] ER then urgent care c/o increased bleeding to pointerfinger).Acuity: LEVEL 3.Chief Complaint: INJURY TO LEFT HAND.Alert. [...] mg, daily. 2 Clinical Report - Nurses [facility] Emergency Department [address] [place] [address] Phone #: ext- [phone] 05/31/2020 16:14 Patient: [...] learning barriers present. Written instructions provided in Spanish. 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 She left [...] rce(s) Supporting Document(s) ID Date Data Source [id number] 05/31/2020 04:25:00 PM EDT [facility] 1 Clinical Report - Physicians/Mid Levels [facility] Emergency Department [address] [place] [address] Phone #: ext- [phone] 05/31/2020 16:14 Patient: [...] yesterday AM 0900. Pt was seen at [facility] ER, then to urgent care today [...] Heart Failure. Anemia. 2 Clinical Report - Physicians/Mid Levels [facility] Emergency Department [address] [place] [address] Phone #: ext- [phone] 05/31/2020 16:14 Patient: OXANA CLANCY Sex: F : 1950 Age: 69yHeart Disease.Hyperglycemia.Hypertension.Skin [...] 1 tablet, 2x a day, last dose [id number].Lasix Oral (Tablet 80 mg), daily.Losartan Potassium Oral 50 mg, daily.Multivitamins Oral 1 pill, daily.Omeprazole Oral 40 mg, daily.Potassium Citrate ER Oral (Tablet Extended Release 10 MEQ (1080 MG)) 1 tablet, 2x a day.ROPINIRole HCl Oral (Tablet 1 mg) 1 tablet, 2x a day, last dose [id number] 0045. 3 Clinical Report - Physicians/Mid Levels [facility] Emergency Department [address] [place] [address] Phone #: ext- [phone] 05/31/2020 16:14 Patient: [...] air. Temp: 98.5 F. Pain level now: 210. Have been reviewed. Oxygen saturation normal. Appearance: [...] chemcial 4 Clinical Report - Physicians/Mid Levels [facility] Emergency Department [address] [place] [address] Phone #: ext- [phone] 05/31/2020 16:14 Patient: OXANA CLANCY Sex: F [...] patient. 5 Clinical Report - Physicians/Mid Levels [facility] Emergency Department [address] [place] [address] Phone #: ext- [phone] 05/31/2020 16:14 Patient: OXANA CLANCY Sex: F : 1950 Age: 69y(Electronically signed by Justino Luna P.A.-C 05/31/2020 23:24) Name Value Range Interpretation Code Description Data Tyra rce(s) Supporting Document(s) ID Date Data Source [id number] 05/19/2020 07:31:00 PM EDT [facility] 1 OrderSheet [facility] Emergency Department [address] [place] [address] Phone #: ext- [phone] 05/19/2020 19:17 Patient: [...] Clinical consideration given -- 20:12 05/19/2020 Campbell Banegas PATdap IM 0.5 mL 20:27 05/19/2020 Ack'd: 20:29 Vivi 20:43 Vivi [place];GENERAL ORDERSOrder Description Priority Entered Acknowledged Initialed[Electronically signed by Campbell Banegas (21:43 05/19/2020)][Electronically signed by Harry Lee R.N. (22:10 05/19/2020)][Electronically locked by Harry Lee R.N. (22:10 05/19/2020)] Name Value Range Interpretation Code Description Data Tyra rce(s) Supporting Document(s) ID Date Data Source [id number] 05/19/2020 07:31:00 PM EDT [facility] 1 Medication Reconciliation Report [facility] Emergency Department [address] [place] [address] Phone #: ext- [phone] 05/19/2020 19:17 Patient: OXANA CLANCY Sex: F : 1950 Age: 69yWeight: 90.7 kgHeight/Length: 61 in.BMI: 37.8ALLERGIES: PenicillinsThe patient's Home Medications are listed below:CONTINUE TAKING [...] 1 tablet, 2x a day, last dose: [id number] 0045 Lasix Oral (80 mg), daily Losartan Potassium Oral 50 mg, daily Multivitamins Oral 1 pill, daily Omeprazole Oral 40 mg, daily Potassium Citrate ER Oral (10 MEQ (1080 MG)) 1 tablet, 2x a day ROPINIRole HCl Oral (1 mg) 1 tablet, 2x a day, last dose: [id number] 0045 Sertraline HCl Oral 50 mg, 2x a day Spironolactone Oral 50 mg, 2x a day 2 Medication Reconciliation Report [facility] Emergency Department [address] [place] [address] Phone #: ext- [phone] 05/19/2020 19:17 Patient: OXANA CLANCY Sex: F [...] Dispense 30capsule. Refills: 0. Substitution permitted.Pharmacy - [facility], 1928[id number] ; [place] [address]. . -- BERTA Almonte Name Value Range Interpretation Code Description Data Tyra rce(s) Supporting Document(s) ID Date Data Source [id number] 05/19/2020 07:31:00 PM EDT [place] [address] Medication Administration Record [facility] Emergency Department [address] [place] [address] Phone #: ext- [phone] 05/19/2020 19:17 Patient: OXANA CLANCY Sex: F : 1950 Age: 69yWeight: 90.7 kgHeight/Length: 61 inBMI: 37.8ALLERGIES: Penicillins Date/Time Medication Administered Medication OrderedGiven CEPHALEXIN [PO] Cephalexin PO 500 mg20:15 05/19/2020 Dose: 500 mg Capsules Harry Hathaway RBoydNBoydGiven TDAP [IM] Tdap IM 0.5 mL20:37 05/19/2020 Dose: 0.5 mL Syd Quintanilla R.N. Name Value Range Interpretation Code Description Data Tyra rce(s) Supporting Document(s) ID Date Data Source [id number] 05/19/2020 07:31:00 PM EDT [facility] 1 General Instructions [facility] Emergency Department [address] [place] [address] Phone #: ext- [phone] 05/19/2020 19:17 Patient: OXANA CLANCY Sex: F [...] Dispense 30capsule. Refills: 0. Substitution permitted.Pharmacy - [facility], [phone] ; [place] [address]. . 2 General Instructions [facility] Emergency Departme [address] [place] [address], [place] [address] Phone #: ext- [phone] 05/19/2020 19:17 Patient: [...] elf. Try to resist 3 General Instructions [facility] Emergency Department [address] [place] [address] Phone #: ext- [phone] 05/19/2020 19:17 Patient: OXANA CLANCY Sex: F : 1950 Age: 69y picking it off before that so the wound doesn't open up. When it gets wet, pat it dry.Here is some information about medicine: You may use krem-umf-qqibekr medicine such as acetaminophen or ibuprofen to [...] if they will re-open 4 General Instructions [facility] Emergency Department [address] [place] [address] Phone #: ext- [phone] 05/19/2020 19:17 Patient: OXANA CLANCY Sex: F : 1950 Age: 69y Bleeding not controlled by direct pressure 1999- 2017 [employer]. [address] [place] [address]. All rights reserved. This information is not intended as asubstitute for professional medical care. Always follow your healthcare professional's instructions. You have been given the following additional information: Skin Avulsion(Electronically signed by BERTA Almonte 05/19/2020 21:43) Name Value Range Interpretation Code Description Data Tyra rce(s) Supporting Document(s) ID Date Data Source [id number] 05/19/2020 07:31:00 PM EDT [facility] 1 Clinical Report - Nurses [facility] Emergency Department [address] [place] [address] Phone #: ext- [phone] 05/19/2020 19:17 Patient: OXANA CLANCY Sex: F : 1950 Age: 69yTRIAGEArrived by private vehicle. Historian: patient. Accompanied by friend.Triage time: 19:05/19/2020.Chief Complaint: RIGHT LOWER EXTREMITY PAIN.An injury may have occurred. Occurred at home. This started last night. ( Tore skin off the outside ofright great toe). 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 Sepsis Screen negative. No suspected or confirmed signs ofinfection present. --19:25 05/19/20 Matt Quintanilla RN19:19 05/19/20. BP: 138/64 (regular adult cuff) taken on the left arm, via an automated monitor, whilelying. MAP: 88. HR: 71 (regular, normal rate and strong). RR: 18 (regular, unlabored and normal). G1iphdwwgisi: 97% on room air. Temp: 97.7 F. Pain level now: 0/10. --19:25 05/19/20 Matt Quintanilla RNAcuity: LEVEL 4. --19:32 05/19/20 Matt Quintanilla RN.Weight: [...] a day. 2 Clinical Report - Nurses [facility] Emergency Department [address] [place] [address] Phone #: ext- [phone] 05/19/2020 19:17 Patient: OXANA CLANCY Sex: F : 1950 Age: 69y Spironolactone Oral 50 mg, 2x a day. TraZODone HCl Oral 150 mg, daily. Vitamin D3 Oral (Tablet 1000 unit) 1 tablet, daily. --19:31 05/19/20 Matt Quintanilla RN. Allergies Penicillins.(rash) --19:05/19/20 Matt Quintanilla RN. PROBLEMS: Anemia: Chronic. Renal Insufficiency: Chronic. Aortic Stenosis: Chronic. Anxiety Reaction: Chronic. Atrial Fibrillation: Chronic. Heart Murmur: Chronic. Hypercholesterolemia: Chronic. Coronary Artery Disease: Chronic. Congestive Heart Failure: Chronic. Depression: Chronic. Gastroesophageal Reflux Disease: Chronic. Nephropathy: Chronic. --19:32 05/19/20 Matt Quintanilla RN COPD - Chronic Obstructive Pulmonary Disease. Anemia. Cardiac Procedures. --19:32 05/19/20 aMtt Quintanilla RN. History SOCIAL HX: Never smoker. [...] factors identified. --19:25 05/19/20 Matt Quintanilla RN.PHYSICAL SMOLVDPBEE78:56 05/19/20. Ambulatory to room. 3 Clinical Report - Nurses [facility] Emergency Department [address] [place] [address] Phone #: ext- [phone] 05/19/2020 19:17 --- Patient: OXANA CLANCY Sex: F : 1950 Age: 69y GENERAL [...] 0.5 mL given(Lot#: [id number], expiration date: 06/08/2022, Spout Positioner: [employer]). Given in the right deltoid. Allergies verified [...] Patient verbalized understanding. Written instructions provided in Spanish. 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 She was discharged home. She left [...] rce(s) Supporting Document(s) ID Date Data Source [id number] 05/19/2020 07:31:00 PM EDT [facility] 1 Clinical Report - Physicians/Mid Levels [facility] Emergency Department [address] [place] [address] Phone #: ext- [phone] 05/19/2020 19:17 [id number] Sex: F : 1950 Age: 69y Time [...] plan.). 2 Clinical Report - Physicians/Mid Levels [facility] Emergency Department [address] [place] [address] Phone #: ext- [phone] 05/19/2020 19:17 Patient: [...] permitted. 3 Clinical Report - Physicians/Mid Levels [facility] Emergency Department [address] [place] [address] Phone #: ext- [phone] 05/19/2020 19:17 Patient: OXANA CLANCY Sex: F : 1950 Age: 69y Pharmacy - [facility] [phone] ; [place] [address]. . Follow-up: Follow up with a specialist Podiatry. Reason for referral: evaluation and treatment. Summary of care provided to patient. Understanding of the discharge instructions verbalized by patient.(Electronically signed by BERTA Almonte 05/19/2020 21:43) Name Value Range Interpretation Code Description Data Tyra rce(s) Supporting Document(s) Procedure Social History Code Duration Value Status Description Data Source(s ) Alcohol intake 02/09/2021 12:00:00 AM EDT Current non-d swapna of alcohol (finding) completed Current non-drinker of alcohol (finding) [facility] Alcohol intake 01/15/2021 12:00:00 AM EDT Current drinker of al cohol (finding) completed Current drinker of alcohol (finding) [facility] Tobacco use and exposure 01/15/2021 12:00:00 AM EDT Never used co mpleted Never used [facility] Smoking 01/15/2021 12:00:00 AM EDT Former smoker completed Former smoker [facility] Smoking 07/17/2020 12:00:00 AM EST Never Smoked A Pipe complet ed Never Smoked A Pipe [facility] ([facility]) Vital Signs ID Date Data Source UNK Name Value Range Interpretation Code Description Data Source(s) Body mass index (BMI) [Ratio] 35.9 kg/m2 35.9 k g/m2 [facility] (George Minor MD) Body temperature 97.7 [degF] 97.7 [degF] [facility] (George Minor MD) Systolic blood pressure 183 mm[Hg] 183 mm[Hg] [facility] Body height 61 [in_i] 61 [in_i] [facility]George Minor [facility] 5'1" Body weight 190.00 [lb_av] 190.00 [lb_av] [facility] T (George Minor MD) Diastolic blood pressure 66 mm[Hg] 66 mm[Hg] [facility] (George Minor MD) Heart rate 73 /min 73 /min [facility] (George Minor MD) Oxygen saturation in Arterial blood by Pulse oximetry 97 % 97 % [facility] Minor [facility] Systolic blood pressure 198 mm[Hg] 198 mm[Hg] [facility] ([facility]) Diastolic blood pressure 74 mm[Hg] 74 mm[Hg] [facility] ([facility]) Body temperature 98.2 [degF] 98.2 [degF] [facility] ([facility]) Body height 61 [in_i] 61 [in_i] [facility] ([facility]) 5'1" Body weight 188.12 [lb_av] 188.12 [lb_av] [facility] T ([facility]) Body mass index (BMI) [Ratio] 35.5 kg/m2 35.5 k g/m2 [facility] ([facility]) [place] body weight 105 [lb_av] 105 [lb_av] [facility] T ([facility]) Body weight 85.334 kg 85.334 kg [facility] ([facility]) Body surface area Derived from formula 1.84 m2 1.84 m2 [facility] ([facility]) Body weight 189.00 [lb_av] 189.00 [lb_av] [facility] T (George Minor MD) Body height 61 [in_i] 61 [in_i] [facility] (George Minor MD) 5'1" Systolic blood pressure 132 mm[Hg] 132 mm[Hg] M [facility] (George Minor MD) Body mass index (BMI) [Ratio] 35.7 kg/m2 35.7 k g/m2 [facility] (George Minor MD) Diastolic blood pressure 73 mm[Hg] 73 mm[Hg] [facility] (George Minor MD) Heart rate 80 /min 80 /min [facility] (George Minor MD) Body temperature 97.3 [degF] 97.3 [degF] [facility] (George Minor MD) Oxygen saturation in Arterial blood by Pulse oximetry 97 % 97 % [facility] (George Minor MD) Body mass index (BMI) [Ratio] 35.7 kg/m2 35.7 k g/m2 [facility] (George Minor MD) Body temperature 97.3 [degF] 97.3 [degF] [facility] (George Minor MD) Systolic blood pressure 132 mm[Hg] 132 mm[Hg] M [facility] (George Minro MD) Diastolic blood pressure 73 mm[Hg] 73 mm[Hg] [facility] (George Minor MD) Heart rate 80 /min 80 /min [facility] (George Minor MD) Oxygen saturation in Arterial blood by Pulse oximetry 97 % 97 % [facility] (George Minor MD) [place] body weight 105 [lb_av] 105 [lb_av] [facility] T ([facility], ) Body weight 85.447 kg 85.447 kg [facility] ([facility]) Heart rate 88 /min 88 /min [facility] ([facility], ) Body height 61 [in_i] 61 [in_i] [facility] ([facility], ) 5'1" Body weight 188.38 [lb_av] 188.38 [lb_av] [facility] T ([facility], ) Systolic blood pressure 137 mm[Hg] 137 mm[Hg] M [facility] ([facility], ) Diastolic blood pressure 73 mm[Hg] 73 mm[Hg] [facility] ([facility]) Body temperature 98.3 [degF] 98.3 [degF] [facility] Body mass index (BMI) [Ratio] 35.6 kg/m2 35.6 k g/m2 [facility] Body surface area Derived from formula 1.84 m2 1.84 m2 [facility] ([facility]) Systolic blood pressure 140 mm[Hg] 140 mm[Hg] [...] Systolic blood pressure 181 mm[Hg] 181 mm[Hg] [facility] Diastolic blood pressure 72 mm[Hg] 72 mm[Hg] [facility] Heart rate 65 /min 65 /min [facility] Body temperature 36.72 Jackie 36.72 Jackie [facility] Respiratory rate 18 /min 18 /min [facility] Oxygen saturation in Arterial blood by Pulse oximetry 96 % 96 % [facility] Body weight 85.186 kg 85.186 kg [facility] Body mass index (BMI) [Ratio] 36.68 kg/m2 36.68 kg/m2 [facility] Body height 152.4 cm 152.4 cm [facility] Body temperature 97.9 [degF] 97.9 [degF] [facility] (George Minor MD) Body height 61 [in_i] 61 [in_i] [facility] (George Minor MD) 5'1" Body weight 183.25 [lb_av] 183.25 [lb_av] [facility] T (George Minor MD) Body mass index (BMI) [Ratio] 34.6 kg/m2 34.6 k g/m2 [facility] (George Minor MD) Oxygen saturation in Arterial blood by Pulse oximetry 98 % 98 % [facility]George Minor [facility] Systolic blood pressure 120 mm[Hg] 120 mm[Hg] M [facility] (George Minor MD) Diastolic blood pressure 63 mm[Hg] 63 mm[Hg] [facility]George Minor [facility] Heart rate 90 /min 90 /min [facility]George Minor [facility] Body mass index (BMI) [Ratio] 37.4 kg/m2 37.4 k g/m2 [facility] ([facility]) Body height 61 [in_i] 61 [in_i] [facility] ([facility]) 5'1" [place] body weight 105 [lb_av] 105 [lb_av] [facility] T ([facility]) Body weight 89.813 kg 89.813 kg [facility] ([facility]) Body surface area Derived from formula 1.88 m2 1.88 m2 [facility] Body weight 198.00 [lb_av] 198.00 [lb_av] [facility] T ([facility]) Body height 61 [in_i] 61 [in_i] [facility] ([facility]) 5'1" Body weight 198.00 [lb_av] 198.00 [lb_av] [facility] T ([facility]) Body mass index (BMI) [Ratio] 37.4 kg/m2 37.4 k g/m2 [facility] ([facility]) [place] body weight 105 [lb_av] 105 [lb_av] [facility] ([facility]) Body weight 89.813 kg 89.813 kg [facility] ([facility]) Body surface area Derived from formula 1.88 m2 1.88 m2 [facility] ([facility]) Body weight 91.230 kg 91.230 kg [facility] ([facility]) [place] body weight 105 [lb_av] 105 [lb_av] [facility] ([facility]) Systolic blood pressure 185 mm[Hg] 185 mm[Hg] [facility] ([facility]) Body surface area Derived from formula 1.89 m2 1.89 m2 [facility] ([facility]) Diastolic blood pressure 72 mm[Hg] 72 mm[Hg] [facility] ([facility]) Heart rate 71 /min 71 /min [facility] ([facility]) Body height 61 [in_i] 61 [in_i] [facility] ([facility]) 5'1" Body weight 201.12 [lb_av] 201.12 [lb_av] [facility] ([facility]) Body mass index (BMI) [Ratio] 38.0 kg/m2 38.0 k g/m2 [facility] ([facility]) Diastolic blood pressure 65 mm[Hg] 65 mm[Hg] [facility] ([facility]) Body height 61 [in_i] 61 [in_i] [facility] ([facility]) 5'1" [place] body weight 105 [lb_av] 105 [lb_av] [facility] ([facility]) Systolic blood pressure 134 mm[Hg] 134 mm[Hg] [facility] ([facility]) Body weight 197.12 [lb_av] 197.12 [lb_av] [facility] T ([facility]) Body mass index (BMI) [Ratio] 37.2 kg/m2 37.2 k g/m2 [facility] ([facility]) Body weight 89.416 kg 89.416 kg [facility] ([facility]) Body surface area Derived from formula 1.88 m2 1.88 m2 [facility] ([facility]) Systolic blood pressure 152 mm[Hg] 152 mm[Hg] [facility]George Minor MD[facility] Body height 61 [in_i] 61 [in_i] [facility] (George Minor MD) 5'1" Body weight 192.00 [lb_av] 192.00 [lb_av] [facility] T (George Minor MD) Body mass index (BMI) [Ratio] 36.3 kg/m2 36.3 k g/m2 [facility] (George Minor MD) Body temperature 98.1 [degF] 98.1 [degF] [facility]George Minor [facility] Oxygen saturation in Arterial blood by Pulse oximetry 96 % 96 % [facility]George Minor MD[facility] Diastolic blood pressure 72 mm[Hg] 72 mm[Hg] [facility]George Minor [facility] Heart rate 70 /min 70 /min [facility]George Minor MD[facility] Body weight 198.38 [lb_av] 198.38 [lb_av] [facility] T ([facility]) Systolic blood pressure 152 mm[Hg] 152 mm[Hg] [facility] ([facility]) Body surface area Derived from formula 1.88 m2 1.88 m2 [facility] ([facility]) Body mass index (BMI) [Ratio] 37.5 kg/m2 37.5 k g/m2 [facility] ([facility]) Diastolic blood pressure 60 mm[Hg] 60 mm[Hg] [facility] ([facility]) Body height 61 [in_i] 61 [in_i] [facility] ([facility]) 5'1" [place] body weight 105 [lb_av] 105 [lb_av] [facility] ([facility]) Body weight 89.983 kg 89.983 kg [facility] ([facility]) Body mass index (BMI) [Ratio] 36.5 kg/m2 36.5 k g/m2 [facility] (George Minor MD) Systolic blood pressure 121 mm[Hg] 121 mm[Hg] M [facility] (George Minor MD) Body height 61 [in_i] 61 [in_i] [facility] (George Minor MD) 5'1" Body weight 193.00 [lb_av] 193.00 [lb_av] [facility] T (George Minor MD) Body temperature 97.7 [degF] 97.7 [degF] [facility] (George Minor MD) Diastolic blood pressure 52 mm[Hg] 52 mm[Hg] [facility] (George Minor MD) Heart rate 67 /min 67 /min [facility]George Minor [facility] Oxygen saturation in Arterial blood by Pulse oximetry 98 % 98 % [facility]George Minor MD[facility] Systolic blood pressure 92 mm[Hg] 92 mm[Hg] [facility] Diastolic blood pressure 44 mm[Hg] 44 mm[Hg] [facility] ([facility]) Body height 61 [in_i] 61 [in_i] [facility] ([facility]) 5'1" [place] body weight 105 [lb_av] 105 [lb_av] [facility] T ([facility]) Body weight 89.416 kg 89.416 kg [facility] ([facility]) Body surface area Derived from formula 1.88 m2 1.88 m2 [facility] ([facility]) Body weight 197.12 [lb_av] 197.12 [lb_av] [facility] T ([facility]) Body mass index (BMI) [Ratio] 37.2 kg/m2 37.2 k g/m2 [facility] ([facility]) Systolic blood pressure 130 mm[Hg] 130 mm[Hg] M [facility] (George Minor MD) Body weight 193.00 [lb_av] [...] % 97 % [facility] (George Minor MD) Body height 61 [in_i] 61 [in_i] [facility] (George Minor MD) 5'1" Diastolic blood pressure 64 mm[Hg] 64 mm[Hg] [facility] (George Minor MD) Respiratory rate 18 /min 18 /min [facility] ( George Minor MD) Systolic blood pressure 166 mm[Hg] 166 mm[Hg] [facility] ([facility]) Diastolic blood pressure 80 mm[Hg] 80 mm[Hg] [facility] ([facility]) Body height 61 [in_i] 61 [in_i] [facility] ([facility]) 5'1" Body weight 192.00 [lb_av] 192.00 [lb_av] [facility] T ([facility]) Body mass index (BMI) [Ratio] 36.3 kg/m2 36.3 k g/m2 [facility] ([facility]) [place] body weight 105 [lb_av] 105 [lb_av] [facility] T ([facility]) Body weight 87.091 kg 87.091 kg [facility] ([facility]) Body surface area Derived from formula 1.86 m2 1.86 m2 [facility] ([facility]) Systolic blood pressure 135 mm[Hg] 135 mm[Hg] M [facility] ([facility]) Diastolic blood pressure 60 mm[Hg] 60 mm[Hg] [facility] ([facility]) Body weight 210.00 [lb_av] 210.00 [lb_av] [facility] T ([facility]) Body mass index (BMI) [Ratio] 39.7 kg/m2 39.7 k g/m2 [facility] ([facility]) [place] body weight 105 [lb_av] 105 [lb_av] [facility] T ([facility], ) Body weight 95.256 kg 95.256 kg [facility] ([facility], ) Body height 61 [in_i] 61 [in_i] [facility] ([facility], ) 5'1" ID Date Data Source [id number] 05/23/2021 10:43:00 AM EDT [facility] Name Value Range Interpretation Code Description Data Source(s) Weight (Calculated Kilograms) 90.29 90.29 [facility] Height (Calculated Centimeters) 154.94 154. 94 [facility] Body Mass Index (BMI) [address] [facility] ID Date Data Source [id number] 03/22/2021 12:02:00 AM EDT [facility] spital Name Value Range Interpretation Code Description Data Source(s) Weight (Calculated Kilograms) 91.63 91.63 [facility] Height (Calculated Centimeters) 154.94 154. 94 [facility] Body Mass Index (BMI) 38.1 38.1 [facility] ID Date Data Source [id number] 01/25/2021 11:18:02 AM EDT [facility] Name Value Range Interpretation Code Description Data Source(s) WEIGHT RECORDED 200.62 lb 200.62 lb [facility] WEIGHT RECORDED 206.13 lb 206.13 lb [facility] Body height Measured 61 in 61 in [facility] WEIGHT RECORDED 194 lb 194 lb [facility] WEIGHT RECORDED 198 lb 198 lb [facility] Body height Measured 61 in 61 in [facility] TRANSFER FROM [facility] ID Date Data Source [id number] 02/01/2021 07:12:00 AM EDT [facility] spital Name Value Range Interpretation Code Description Data Source(s) Weight (Calculated Kilograms) 91.63 91.63 [facility] Height (Calculated Centimeters) 154.94 154. 94 [facility] Body Mass Index (BMI) 38.1 38.1 [facility] ID Date Data Source [id number] 02/07/2021 08:51:00 AM EDT [facility] Name Value Range Interpretation Code Description Data Source(s) Weight (Calculated Kilograms) 90.29 90.29 [facility] Height (Calculated Centimeters) 154.94 154. 94 [facility] Body Mass Index (BMI) [address] [facility] ID Date Data Source [id number] 01/17/2021 07:54:00 AM T [facility] Name Value Range Interpretation Code Description Data Source(s) Weight (Calculated Kilograms) 90.29 90.29 [facility] Height (Calculated Centimeters) 154.94 154. 94 [facility] Body Mass Index (BMI) 37.[address] [facility] ID Date Data Source [id number] 11/29/2020 08:29:00 AM [facility] Name Value Range Interpretation Code Description Data Source(s) Weight (Calculated Kilograms) 90.29 90.29 [facility] Height (Calculated Centimeters) 154.94 154. 94 [facility] Body Mass Index (BMI) 37.[address] [facility] ID Date Data Source [id number] 10/11/2020 09:29:00 AM EST [facility] Name Value Range Interpretation Code Description Data Source(s) Weight (Calculated Kilograms) 90.29 90.29 [facility] Height (Calculated Centimeters) 154.94 154. 94 [facility] Body Mass Index (BMI) 37.[address] [facility] ID Date Data Source [id number] 06/14/2020 10:38:00 AM T [facility] spital Name Value Range Interpretation Code Description Data Source(s) Weight Measurement Method 8 8 [facility] Weight (Calculated Kilograms) 91.63 91.63 [facility] Weight [address] [facility] pital Temperature Source 7 7 [facility] Temperature 98.4 98.4 [facility] spital Respiratory Effort 1 1 [facility] Respiratory Rate 16 16 [facility] Pulse Assessment Method 4 4 [facility] Pulse Rate [address] [facility] pital Height (Calculated Centimeters) 154.94 154. 94 [facility] 194/78 194/78 [facility] Body Mass Index (BMI) 38.1 38.1 [facility] Weight Measurement Method 8 8 [facility] Weight (Calculated Kilograms) 91.63 91.63 [facility] Weight [address] [facility] pital Temperature Source 7 7 [facility] Temperature 98.4 98.4 [facility] spital Respiratory Effort 1 1 [facility] Respiratory Rate 16 16 [facility] Pulse Assessment Method 4 4 [facility] Pulse Rate 74 74 [facility] Height (Calculated Centimeters) 154.94 154. 94 [facility] Height 61 61 [facility] Pressure 194/78 194/78 [facility] Body Mass Index (BMI) 38.1 38.1 [facility] Weight (Calculated Kilograms) 91.63 91.63 [facility] Height (Calculated Centimeters) 154.94 154. 94 [facility] Body Mass Index (BMI) 38.1 38.1 [facility] ID Date Data Source [id number] 06/14/2020 09:37:00 AM EDT [facility] Name Value Range Interpretation Code Description Data Source(s) Weight (Calculated Kilograms) 90.29 90.29 [facility] Height (Calculated Centimeters) 154.94 154. 94 [facility] Body Mass Index (BMI) 37.5 37.5 [facility] Hospital ID Date Data Source [id number] 08/30/2020 07:58:00 AM EST [facility] spital Name Value Range Interpretation Code Description Data Source(s) Weight Measurement Method 8 8 [facility] Weight (Calculated Kilograms) 91.63 91.63 [facility] Weight [address] [facility] pital Temperature Source 7 7 [facility] Temperature 96.9 96.9 [facility] spital Respiratory Effort 1 1 [facility] Respiratory Rate 16 16 [facility] Pulse Assessment Method 4 4 [facility] Pulse Rate [address] [facility] pital Height (Calculated Centimeters) 154.94 154. 94 [facility] Height 61 61 [facility] Blood Pressure 186/68 186/68 [facility] Body Mass Index (BMI) 38.1 38.1 [facility] Weight Measurement Method 8 8 [facility] Weight (Calculated Kilograms) 91.63 91.63 [facility] Weight [address] [facility] pital Temperature Source 7 7 [facility] Temperature 96.9 96.9 [facility] spital Respiratory Effort 1 1 [facility] Respiratory Rate 16 16 [facility] Pulse Assessment Method 4 4 [facility] Pulse Rate [address] [facility] pital Height (Calculated Centimeters) 154.94 154. 94 [facility] Height 61 61 [facility] Pressure 175/65 175/65 [facility] Body Mass Index (BMI) 38.1 38.1 [facility] Weight (Calculated Kilograms) 91.63 91.63 [facility] Height (Calculated Centimeters) 154.94 154. 94 [facility] Body Mass Index (BMI) 38.1 38.1 [facility] Weight (Calculated Kilograms) 91.63 91.63 [facility] Height (Calculated Centimeters) 154.94 154. 94 [facility] Body Mass Index (BMI) 38.1 38.1 [facility] Weight (Calculated Kilograms) 91.63 91.63 [facility] Height (Calculated Centimeters) 154.94 154. 94 [facility] Body Mass Index (BMI) 38.1 381 [facility] Patient Treatment Plan of Care Planned Activity Planned Date Details Description Data Source (s) Amlodipine 5 MG Oral Tablet 02/12/2021 12:00:00 AM EDT [facility] Aspirin 81 MG Delayed Release Oral Tablet 02/11/2021 12:00:00 AM ED T [facility] clopidogrel 75 MG Oral Tablet 02/11/2021 12:00:00 AM EDT [facility] Nitroglycerin 0.4 MG Sublingual Tablet 02/11/2021 12:00:00 AM EDT [facility] carvedilol 12.5 MG Oral Tablet [facility] Sublingual Tablet 02/07/2021 03:34:10 PM EDT [facility] Acetaminophen 325 MG / Oxycodone Hydrochloride 5 MG Or al Tablet [facility]/07[facility]20[facility] Lispro 100 UNT/ML Pen Injector 01/19/2021 12:00:00 AM [facility] 3 ML Insulin Lispro 100 UNT/ML Pen Injector 01/19/2021 12:00:00 AM [facility] Insulin Syringe-Needle U-100 31G X 15/64" 0.5 ML 01/19/2021 12:00:0 0 AM [facility] 3 ML Insulin Lispro 100 UNT/ML Pen Injector 01/19/2021 12:00:00 AM [facility] Insulin Pen Needle 31G X 5 MM 01/19/2021 12:00:00 AM [facility] 3 ML Insulin Glargine 100 UNT/ML Pen Injector 01/19/2021 12:00:00 A M [facility] Isopropyl Alcohol 0.7 ML/ML Medicated Pad 01/19/2021 12:00:00 AM [facility] FreeStyle [place] Lite w/Device Kit 01/19/2021 12:00:00 AM [facility] FreeStyle Lancets 01/19/2021 12:00:00 AM [facility] FreeStyle Lite Test In Vitro Strip (glucose blood) 01/19/2021 12 :00:00 AM [facility] Metolazone 2.5 MG Oral Tablet 01/18/2021 12:00:00 AM [facility] Insulin Glargine 100 UNT/ML Injectable Solution 01/18/2021 12:00:00 AM [facility] 24 HR Nifedipine 60 MG Extended Release Oral Tablet 01/19/20 12:00:00 AM [facility] Sodium Chloride 0.111 MEQ/ML Nasal Solution 01/18/2021 12:00:00 AM [facility] Oxymetazoline hydrochloride 0.5 MG/ML Nasal [place] 01/18/2021 12: 00:00 AM [facility] atorvastatin 40 MG Oral Tablet 01/18/2021 12:00:00 AM [facility] torsemide 100 MG Oral Tablet 01/18/2021 12:00:00 AM [facility] Cyclobenzaprine hydrochloride 10 MG Oral Tablet 01/15/2021 06:57:42 PM [facility] Hydroxyzine Hydrochloride 10 MG Oral Tablet 01/15/2021 06:57:18 PM [facility] Hydralazine Hydrochloride 20 MG/ML Injectable Solution 01/14/2021 06:43:32 PM [facility] ospital perflutren lipid microspheres (Vitrinepix) injectable chun spension 9.78 mg 01/14/2021 05:50:15 PM [facility] dextrose 50 % IV solution 25 mL 01/14/2021 05:09:51 PM [facility] Glucagon 1 MG Injection 01/14/2021 05:09:51 PM [facility] Glucose 0.417 MG/MG Oral Gel 01/14/2021 05:09:51 PM [facility] carvedilol 25 MG Oral Tablet 2020 12:00:00 AM [facility] ropinirole 1 MG Oral Tablet 12/10/2020 12:00:00 AM [facility] Amlodipine 10 MG Oral Tablet 11/13/2020 12:00:00 AM [facility] ammonium lactate 120 MG/ML Topical Cream 10/27/2020 12:00:00 AM [facility] Trelegy Ellipta 100-62.5-25 MCG/INH Aerosol Powder [place] [facility] Activated 10/15/2020 12:00:00 AM [facility] ospital torsemide 100 MG Oral Tablet 10/10/2020 12:00:00 AM [facility] cefdinir 300 MG Oral Capsule 09/13/2020 12:00:00 AM [facility] atorvastatin 40 MG Oral Tablet 04/13/2020 12:00:00 AM [facility] clopidogrel 75 MG Oral Tablet 03/29/2020 12:00:00 AM EDT [facility] Aspirin 81 MG Delayed Release Oral Tablet 05/21/2019 12:00:00 AM ED T [facility] HUMULIN R U-500 KWIKPEN 500 UNIT/ML SOPN 05/07/2019 12:00:00 AM EDT [facility] Metolazone 2.5 MG Oral Tablet [facility] carvedilol 25 MG Oral Tablet [facility] Amlodipine 10 MG Oral Tablet [facility] Acetaminophen 325 MG / Oxycodone Hydrochloride 5 MG Oral Tablet [facility] Hydralazine Hydrochloride 25 MG Oral Tablet [facility] Regular Insulin, Human 500 UNT/ML Injectable Solution [facility]
[2021-07-14 15:03] LABS: BASO % 0.4 % (0.0-1.0); EOS # 0.1 10^3/uL (0.0-0.5); EOS % 1.4 % (0.0-3.0); HEMATOCRIT 29.8 % (36.0-47.0); HEMOGLOBIN 10.1 g/dl (12.0-15.5); LYMPH % 19.1 % (24.0-44.0); MEAN CORPUSCULAR HEMOGLOBIN 28.9 pg (27.0-33.0); MEAN CORPUSCULAR HGB CONC 33.9 g/dl (32.0-36.5); MEAN CORPUSCULAR VOLUME 85.4 fl (80.0-96.0); MONO # 0.9 10^3/uL (0.0-0.8); MONO % 8.4 % (2.0-8.0); NEUTROPHILS # 7.3 10^3/uL (1.5-8.5); NEUTROPHILS % 70.2 % (36.0-66.0); PLATELET COUNT, AUTOMATED 156 10^3/uL (150-450); RED BLOOD COUNT 3.49 10^6/uL (4.00-5.40); WHITE BLOOD COUNT 10.4 10^3/uL (4.0-10.0)
[2021-07-14 15:46] LABS: ALBUMIN 2.9 GM/DL (3.2-5.2); ALT/SGPT 25 U/L (12-78); BILIRUBIN,DIRECT < 0.1 MG/DL (0.0-0.2); BILIRUBIN,TOTAL 0.5 MG/DL (0.2-1.0); BLOOD UREA NITROGEN 70 MG/DL (7-18); CALCIUM LEVEL 9.6 MG/DL (8.8-10.2); CARBON DIOXIDE LEVEL 28 MEQ/L (21-32); CHLORIDE LEVEL 99 MEQ/L (98-107); CPK CREATINE PHOSPHOKINASE 135 U/L (26-192); CREATININE FOR GFR 2.73 MG/DL (0.55-1.30); FREE T4 0.89 NG/DL (0.76-1.46); GLOMERULAR FILTRATION RATE 18.4 (>45); GLUCOSE, FASTING 150 MG/DL (70-100); LIPASE 81 U/L (73-393); MAGNESIUM LEVEL 2.2 MG/DL (1.8-2.4); MB/CK RELATIVE INDEX 2.22 (< OR =4); NT-PRO BNP 4315 PG/ML (<125); POTASSIUM SERUM 3.7 MEQ/L (3.5-5.1); SODIUM LEVEL 135 MEQ/L (136-145); TOTAL PROTEIN 6.6 GM/DL (6.4-8.2); TROPONIN I < 0.02 NG/ML (< 0.10)
[2021-07-14] MEDS ORDERED: NS 1,000 ML IV SCH (16:00)
[2021-07-14] MEDS ORDERED: NS 500 ML IV ONE (16:00)
[2021-07-14 17:31] VITALS: BP 142/80
--- NOTE | 2021-07-14 18:38 | ECGEPIP ---
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
== END 2021-07-14 19:09 | disposition home or self-care (01) ==
LOC: M ED 13:01 → EDBD 13:01 → M ED 19:09
DX: R25.2 Cramp and spasm (principal); E86.0 Dehydration; R94.31 Abnormal electrocardiogram [ECG] [EKG]; I13.0 Hypertensive heart and chronic kidney disease with heart failure and stage 1 through stage 4 chronic kidney disease, or unspecified chronic kidney disease; I50.9 Heart failure, unspecified; N18.4 Chronic kidney disease, stage 4 (severe); E11.9 Type 2 diabetes mellitus without complications; J45.909 Unspecified asthma, uncomplicated; J44.9 Chronic obstructive pulmonary disease, unspecified; G25.81 Restless legs syndrome; Z88.0 Allergy status to penicillin; Z79.899 Other long term (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 therapy; Z79.4 Long term (current) use of insulin

== ENCOUNTER → 2021-08-08 | Outpatient (CLI) | payer MEDICARE ==
--- NOTE | 2021-08-08 15:05 | REP ---
INDICATION: MULTI NODULAR GOITER. COMPARISON: 01/10/2021. TECHNIQUE: Real-time sonographic evaluation of thyroid performed. FINDINGS: Right lobe of the thyroid measures 4.7 x 2.1 x 2.1 cm, left lobe 4.6 x 1.6 x 1.8 cm. Multiple simple cysts are seen bilaterally. In addition, there are complex cystic and solid nodules identified. In the right lobe there is a solid nodule with small cystic components in the lower pole measuring 8 x 9 x 7 mm. There is a cyst anteriorly in the mid aspect of the right lobe with septations and mild wall thickening measuring 11 x 12 x 7 mm. There is a predominantly cystic nodule with an internal nodular hypoechoic component, measuring 9 x 7 x 5 mm. On the left there is a complex cystic and solid nodule with echogenic foci scattered internally, measuring 1.9 x 2.0 x 1.6 cm, it located in the lower pole. There is a small solid nodule in the upper pole measuring 5 mm in diameter. There is a small solid nodule with a tiny cystic component in the lower pole measuring 6 mm in diameter. IMPRESSION: Multiple cystic and solid nodules bilaterally as discussed in detail above. Most suspicious lesion is in the lower pole of the left lobe. That lesion is cystic and solid with tiny internal echogenic foci measuring 2 cm in maximum diameter. This is a TR 4 lesion according to TI-RADS criteria. Recommend ultrasound-guided FNA. <Electronically signed by Miller Cook > 08/08/21 [id number]
== END ==
LOC: M RAD 13:05
PROVIDERS: ATTEND Otolaryngology
DX: E04.1 Nontoxic single thyroid nodule (principal)

== ENCOUNTER 2021-08-14 14:21 | Observation (INO) | payer MEDICARE ==
[~2021-08-14] VITALS: Ht 154.9 cm; Wt 82.0 kg
[2021-08-14 17:36] LABS: BASO % 0.3 % (0.0-1.0); EOS % 0.2 % (0.0-3.0); HEMATOCRIT 32.5 % (36.0-47.0); HEMOGLOBIN 10.6 g/dl (12.0-15.5); LYMPH # 1.7 10^3/uL (1.5-5.0); LYMPH % 14.2 % (24.0-44.0); MEAN CORPUSCULAR HEMOGLOBIN 28.7 pg (27.0-33.0); MEAN CORPUSCULAR HGB CONC 32.6 g/dl (32.0-36.5); MEAN CORPUSCULAR VOLUME 88.1 fl (80.0-96.0); MONO # 0.9 10^3/uL (0.0-0.8); MONO % 7.6 % (2.0-8.0); NEUTROPHILS # 9.3 10^3/uL (1.5-8.5); PLATELET COUNT, AUTOMATED 234 10^3/uL (150-450); RED BLOOD COUNT 3.69 10^6/uL (4.00-5.40)
[2021-08-14 18:10] LABS: ALBUMIN 2.8 GM/DL (3.2-5.2); BILIRUBIN,TOTAL 0.3 MG/DL (0.2-1.0); CALCIUM LEVEL 9.1 MG/DL (8.8-10.2); FREE T4 0.88 NG/DL (0.76-1.46); GLOMERULAR FILTRATION RATE 16.5 (>45); POTASSIUM SERUM 4.1 MEQ/L (3.5-5.1); THYROID STIMULATING HORMONE 2.78 uIU/ML (0.358-3.740); TOTAL PROTEIN 6.4 GM/DL (6.4-8.2)
--- NOTE | 2021-08-14 18:10 | REP ---
INDICATION: SOB. COMPARISON: Portable chest, 07/14/2021. TECHNIQUE: AP portable chest image was obtained. FINDINGS: The lungs are clear. There is cardiomegaly without congestive heart failure. Status post aortic valve replacement. Status post median sternotomy. IMPRESSION: 1. No evidence of acute cardiopulmonary pathology. 2. Cardiomegaly. Status post aortic valve replacement. <Electronically signed by Ac Tate > 08/14/21 [id number]
[2021-08-14] MEDS ORDERED: CARVedilol 12.5 MG TAB PO ONE (18:30)
[2021-08-14] MEDS ORDERED: LANTINJ4 SC (20:38)
[2021-08-14] MEDS ORDERED: AMMO12CR7 TOP (20:38)
[2021-08-14] MEDS ORDERED: CYCL-707 PO (20:38)
[2021-08-14] MEDS ORDERED: VITA500075 PO (20:38)
[2021-08-14] MEDS ORDERED: FERR32TA PO (20:38)
[2021-08-14] MEDS ORDERED: DILT30TA PO (20:38)
[2021-08-14] MEDS ORDERED: TREL1AER PO (20:38)
[2021-08-14] MEDS ORDERED: LIPI20TA PO (20:38)
[2021-08-14] MEDS ORDERED: CALC1CAP31 PO (20:38)
[2021-08-14] MEDS ORDERED: ACET500T15 PO (20:38)
[2021-08-14] MEDS ORDERED: CARV12.5 PO (20:38)
[2021-08-14] MEDS ORDERED: HYDR-643 PO (20:38)
[2021-08-14] MEDS ORDERED: PLAV1TAB2 PO (20:38)
[2021-08-14] MEDS ORDERED: TORS100T PO (20:48)
[2021-08-14] MEDS ORDERED: INSUHUMDS SC (20:48)
[2021-08-14] MEDS ORDERED: XARE15TA PO (20:48)
[2021-08-14] MEDS ORDERED: POTA10TA17 PO (20:48)
[2021-08-14] MEDS ORDERED: TRAM50TA2 PO (20:48)
[2021-08-14] MEDS ORDERED: MULT-90 PO (20:48)
[2021-08-14] MEDS ORDERED: OMEP40CA4 PO (20:48)
[2021-08-14] MEDS ORDERED: ROPI1TAB3 PO (20:48)
[2021-08-14] MEDS ORDERED: SERT50TA29 PO (20:48)
[2021-08-14] MEDS ORDERED: HOME MED LIST COMPLETE! XX SCH (20:50)
[2021-08-14] MEDS ORDERED: LEVEMIR (INSULIN DETEMIR) 1 UNITS/0.01ML SC SCH (21:00)
[2021-08-14] MEDS ORDERED: RIVAROXABAN 15 MG TAB (XARELTO) PO SCH (21:00)
[2021-08-14] MEDS ORDERED: ATORVASTATIN 20 MG TAB PO SCH (21:00)
[2021-08-14] MEDS ORDERED: SERTRALINE HCL 50 MG TAB PO SCH (21:00)
[2021-08-15] MEDS ORDERED: hydrOXYzine 10 MG TAB PO PRN (03:30)
[2021-08-15] MEDS ORDERED: traMADol 50 MG TAB PO PRN (03:30)
[2021-08-15] MEDS ORDERED: ACETAMINOPHEN 500 MG TAB PO PRN (03:30)
[2021-08-15] MEDS ORDERED: CYCLOBENZAPRINE 10MG TABLET PO PRN (03:30)
[2021-08-15 04:10] LABS: CREATININE,RANDOM URINE 72.4 MG/DL
[2021-08-15 04:30] VITALS: BP 135/63
[2021-08-15] MEDS ORDERED: VITMTA PO (05:00)
[2021-08-15] MEDS ORDERED: NITR4TASL SL (05:20)
[2021-08-15] MEDS ORDERED: BACT800T5 PO (05:20)
[2021-08-15 05:53] LABS: HEMATOCRIT 28.1 % (36.0-47.0); HEMOGLOBIN 9.3 g/dl (12.0-15.5); MEAN CORPUSCULAR HEMOGLOBIN 28.4 pg (27.0-33.0); MEAN CORPUSCULAR HGB CONC 33.1 g/dl (32.0-36.5); MEAN CORPUSCULAR VOLUME 85.9 fl (80.0-96.0); PLATELET COUNT, AUTOMATED 201 10^3/uL (150-450); RED BLOOD COUNT 3.27 10^6/uL (4.00-5.40); WHITE BLOOD COUNT 10.2 10^3/uL (4.0-10.0)
--- NOTE | 2021-08-15 05:55 | ECGEPIP ---
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
[2021-08-15 06:25] LABS: ALBUMIN 2.2 GM/DL (3.2-5.2); BILIRUBIN,TOTAL 0.4 MG/DL (0.2-1.0); CALCIUM LEVEL 8.6 MG/DL (8.8-10.2); CREATININE FOR GFR 3.11 MG/DL (0.55-1.30); GLOMERULAR FILTRATION RATE 15.8 (>45); MAGNESIUM LEVEL 2.3 MG/DL (1.8-2.4); POTASSIUM SERUM 3.8 MEQ/L (3.5-5.1)
[2021-08-15] MEDS ORDERED: HumaLOG INSULIN (NovoLOG) PER UNIT SC SCH (07:30)
[2021-08-15 08:00] VITALS: BP 137/61
[2021-08-15] MEDS ORDERED: ADVAIR HFA 230/21MCG INHALER INH SCH (08:00)
[2021-08-15 08:27] VITALS: BP 124/59
[2021-08-15 08:28] VITALS: BP 124/59
[2021-08-15] MEDS: HumaLOG INSULIN (NovoLOG) PER UNIT SC SCH ×2 (08:28→12:35)
[2021-08-15] MEDS ORDERED: POTASSIUM CHLORIDE 10MEQ SR TABLET PO SCH (09:00)
[2021-08-15] MEDS ORDERED: rOPINIRole 1MG TAB PO SCH (09:00)
[2021-08-15] MEDS ORDERED: FERROUS GLUCONATE 324 MG TAB PO SCH (09:00)
[2021-08-15] MEDS ORDERED: TORSEMIDE 100 MG TAB PO SCH (09:00)
[2021-08-15] MEDS ORDERED: CLOPIDOGREL 75 MG TAB PO SCH (09:00)
[2021-08-15] MEDS ORDERED: OMEPRAZOLE 20 MG CAP PO SCH (09:00)
[2021-08-15 10:58] LABS: PERCENT SATURATION 19.9 % (13.2-45.0)
--- NOTE | 2021-08-15 11:07 | HPE ---
HISTORY AND PHYSICAL DATE OF ADMISSION: 08/14/2021 ADMISSION TIME: 1900 CHIEF COMPLAINT: Blood pressure problems. HISTORY OF PRESENT ILLNESS: Oxana is a 70-year-old female who states that the last two days she has been on the dizzy side. She was supposed to be wearing an event monitor but her leads fell off so she has not been able to wear that at all. She states that she has been shortness of breath with exertion. She reports swollen legs. She states she has diabetic ulcers on her toes. She has already had two first toes on her right foot amputated. She has ulcers under the now first toe on her right and first toe on her left. She states that she had an appointment for a procedure at her eye doctor. When she got there, her blood pressure was low so he told her that she was not getting her procedure done. She was going to get her blood pressure was too. Because her blood pressure was too low, she was going to be taken to the ER. She told them that she needed to go back to [facility] there. When she arrived at the hospital here her blood pressure was in fact very high. She was at 225/98 and at the call report from the ER, she was 199/86. They had given her some carvedilol plus her home meds, which included diltiazem; and she had then a blood pressure of 120/54. Her heart rate was at 100. EKG showed what they were calling accelerated junctional rhythm at the time. She does have a history of atrial fibrillation. She denies any other recent illnesses or injuries. She had frequent visits in June of this year that appear to be similar to this visit, only she did have atrial fibrillation with rapid ventricular response (RVR). She denies any nausea, any vomiting; no cough. She denies chest pain at this point. She does have a history of diabetes and kidney disease with a baseline creatinine of 2.7. Her creatinine was up to 3.0 today. 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 PAST MEDICAL HISTORY: She is allergic to penicillins. HOME MEDICATIONS: Include - atorvastatin - calcitriol - carvedilol 12.5 - vitamin D3 - Plavix - cyclobenzaprine - diltiazem - ferrous gluconate - Trelegy/Ellipta - hydroxyzine - Lantus insulin and lispro. She takes Lantus 44 at night; she takes sliding scale lispro before meals. - She takes multivitamin - omeprazole 40 - potassium chloride 10 mEq - Xarelto 15 mg - ropinirole 1 mg - sertraline 50 mg - torsemide 100 mg tablet - tramadol 50 mg PAST MEDICAL HISTORY: Includes 1. Congestive heart failure 2. Chronic kidney disease, stage III-IV 3. Diabetes type 2 4. Coronary artery disease 5. Atrial fibrillation with rapid ventricular response 6. Restless leg syndrome 7. Peripheral vascular disease 8. Chronic obstructive pulmonary disease (COPD) 9. Hypertension 10. She has a remote history of Methicillin-resistant staph aureus (MRSA) 11. History of generalized weakness PAST SURGICAL HISTORY: Includes 1. Open heart surgery 2. Lumbar laminectomy 3. Appendectomy 4. Hernia repair 5. Bilateral carpal tunnel surgery 6. Toe amputations FAMILY HISTORY: She has a sister with heart disease, mother with diabetes and a sister with chronic obstructive pulmonary disease (COPD). SOCIAL HISTORY: She lives at home. She is a nonsmoker, nondrinker. Denies drug use. REVIEW OF SYSTEMS: Ten-system review is positive for that mentioned above in history of present illness (HPI). Remaining systems are negative. PHYSICAL EXAMINATION: VITAL SIGNS: Temperature is 97.6. Pulse is 101. Respirations are 18 with pulse ox of 99%. Blood pressure presently is 120/58. GENERAL: She is awake and alert; appears comfortable sitting up in bed without distress. EYES: Pupils are equal and reactive to light. She has no visual disturbances. ENT: Face is symmetrical. No external abnormalities. CARDIOVASCULAR: Heart tones sound regular in rate. She has no murmurs; no chest pain. RESPIRATIONS: Lung sounds are clear. No wheezes, rales. No dyspnea. GASTROINTESTINAL/GENITOURINARY: Abdomen is round, soft with positive bowel sounds. No tenderness to palpation. MUSCULOSKELETAL: She does move all of her extremities with equal bilateral strength. She has dressings on both feet. She has a small amount of drainage on each dressing, alfred in color. SKIN: Otherwise, no rashes, lesions or bruises. NEUROLOGIC: She is alert and oriented; no focal deficits. PSYCHIATRIC: She is calm and cooperative. DIAGNOSTICS: WBC is 12.0 with a hemoglobin of 10.6, hematocrit of 32.5 and a platelet count of 234. Sodium is 138, potassium is 4.1, chloride is 100, CO2 is 31, BUN is 74, creatinine is 3, GFR is 16.5, glucose is 77. ST is 16, ALT is 22, alkaline phosphatase is 103. Her BNP was 7468. TSH was 2.78. Free T is 0.88. Her D-dimer was 446.88 and troponin was 0.03. Chest x-ray was negative. ASSESSMENT AND PLAN: 1. Hypertensive urgency. She did respond real well to her carvedilol and diltiazem. Recommended by cardiology to hold beta halle due to heart rate. Will monitor her blood pressure and treat p.r.n. if it rises. 2. Worsening of kidney disease with a creatinine of 3. We will get random urine sodium and random creatinine for further diagnosis. She does have a history of congestive heart failure (CHF) with getting torsemide daily as well. Blood sugars are also not well controlled. She said they go up and down all the time. Further treatment dependent on results. 3. Accelerated junctional rhythm. Will monitor her on telemetry and hold medications as appropriate dependent on her course. 4. Diabetes type 2. She will on constant carbohydrate diet before meals and at night; fingerstick glucose with sliding scale; and home insulin. 5. Congestive heart failure (CHF). We will do daily weights, monitor intake and output, continue her on her home medications dependent on her blood pressure of course, and may hold her torsemide. 6. Coronary artery disease. We will continue her on her home medications including her blood thinners. 7. Atrial fibrillation with rapid ventricular response (RVR) history. We will continue her Xarelto. 8. Chronic obstructive pulmonary disease (COPD). We will continue her O2 at night. 9. Restless leg syndrome. We will continue her home medication. CODE STATUS: Full code. DEEP VEIN THROMBOSIS (DVT) PROPHYLAXIS: She will continue on the Xarelto. She is at high right of deterioration if discharged at this time. Her admission status will be observation. [facility]
[2021-08-15 12:16] VITALS: BP 128/64
[2021-08-15] MEDS ORDERED: IRON SUCROSE 200 MG in NS 100 ML IV ONE (14:00)
[2021-08-15] MEDS ORDERED: LACTIC ACID 12% LOTION 225 GM BTL TOP SCH (21:00)
[2021-08-16] MEDS ORDERED: CALCITRIOL 0.25 MCG CAP (S0169) PO SCH (09:00)
--- NOTE | 2021-08-16 13:26 | ECHO ---
ECHOCARDIOGRAM DATE OF PROCEDURE: 08/15/2021 Age: 70 Gender: Female Height: 61 inches Weight: 185 pounds Body Surface Area: 1.83 m2 PATIENT LOCATION: Inpatient PCU Room 3225. REFERRING PROVIDER: Sweetie Hurd. INDICATION: Abnormal EKG. MEASUREMENTS: 2D Measurements: RV 4.0 cm LV 3.2 cm Septum 1.4 cm Posterior wall 1.3 cm Aortic Root 2.8 cm LA 4.4 cm LVEF 75% Doppler Measurements: AV 2.18 m/s LVOT 1.09 m/s LVOT diameter 1.9 cm Mean AV gradient 10 mmHg Dimensionless index 0.6 MV-E and A were superimposed with peak transmitral valvular diastolic velocity 186 cm2 Mean MV diastolic gradient 4.5 mmHg PV 1.0 m/s Pulmonary artery acceleration time 120 msec PASP 28 mmHg IVC - 1.9 cm COMMENTS: Suspected underlying sinus rhythm with marked first degree AV block but no intraventricular conduction disturbance. M-mode and 2-dimensional echocardiography was performed with pulse, continuous wave, color flow, and tissue Doppler studies. Mild concentric left ventricular hypertrophy with hyperkinetic wall motion. At least mild to moderately dilated left atrium but could not comment on left ventricular diastolic function in light of mitral valve disorder. Normal right heart chamber sizes and motion and Doppler sign of pulmonary arterial pressure. Normal IVC size and collapse against an elevated central venous pressure. Normal aortic dimensions. Moderate aortic valvular sclerosis with adequate cusp separation. Increased transvalvular systolic velocities related to hyperkinetic left ventricle. Dimensionless index indicates no significant left ventricular outflow tract obstruction. Moderately severe mitral annular calcification with some thickening of the edges of the mitral leaflets but adequate leaflet excursion and no posterior systolic buckling. With the observed transvalvular gradient, there would be no more than a mild degree of LV inflow tract obstruction. There was only trace mitral insufficiency. Normal appearing tricuspid valve with trace to very mild insufficiency. No apparent intracardiac mass or pericardial effusion. MTDD
== END 2021-08-15 17:02 | disposition home or self-care (01) ==
LOC: M ED 14:21 → M ED INP 14:22 → ENRESERV 08-15 01:22 → M PCU 08-15 04:30
PROVIDERS: ADMIT Family Medicine; ATTEND Internal Medicine Cardiovascular Disease
DX: I16.0 Hypertensive urgency (principal); I49.2 Junctional premature depolarization; N18.9 Chronic kidney disease, unspecified; E11.621 Type 2 diabetes mellitus with foot ulcer; L97.509 Non-pressure chronic ulcer of other part of unspecified foot with unspecified severity; I50.9 Heart failure, unspecified; I25.10 Atherosclerotic heart disease of native coronary artery without angina pectoris; J44.9 Chronic obstructive pulmonary disease, unspecified; I48.91 Unspecified atrial fibrillation; G25.81 Restless legs syndrome; R55 Syncope and collapse; R60.0 Localized edema; R06.02 Shortness of breath; Z95.1 Presence of aortocoronary bypass graft; I73.9 Peripheral vascular disease, unspecified; I13.10 Hypertensive heart and chronic kidney disease without heart failure, with stage 1 through stage 4 chronic kidney disease, or unspecified chronic kidney disease; E78.9 Disorder of lipoprotein metabolism, unspecified; F41.9 Anxiety disorder, unspecified; G47.33 Obstructive sleep apnea (adult) (pediatric); K21.9 Gastro-esophageal reflux disease without esophagitis; D50.9 Iron deficiency anemia, unspecified; Z86.14 Personal history of Methicillin resistant Staphylococcus aureus infection; Z88.0 Allergy status to penicillin; Z79.899 Other long term (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 therapy; Z79.02 Long term (current) use of antithrombotics/antiplatelets; Z79.4 Long term (current) use of insulin; Z79.01 Long term (current) use of anticoagulants; Z79.891 Long term (current) use of opiate analgesic
CPT/HCPCS: 36415; 71045; 80053; 82570; 82728; 83550; 83735; 83880; 84145; 84300; 84439; 84443; 84484; 85025; 85027; 85379; 87798; 93005; 93041; 93306; 94640; 94760; 96374; 99285; G0378; J1756

== ENCOUNTER 2021-08-29 14:59 | Emergency (ER) | payer MEDICARE ==
[~2021-08-29] VITALS: Ht 154.9 cm; Wt 84.5 kg
[~2021-08-29 14:59] MED LIST changes: +ACET500T15 PO; +BACT800T5 PO; +LANTINJ4 SC; +LIPI20TA PO; +MULT-90 PO; +PLAV1TAB2 PO; +VITA500075 PO
[2021-08-29 20:28] LABS: BASO % 0.3 % (0.0-1.0); EOS # 0.2 10^3/uL (0.0-0.5); EOS % 1.8 % (0.0-3.0); HEMOGLOBIN 8.8 g/dl (12.0-15.5); LYMPH # 1.6 10^3/uL (1.5-5.0); LYMPH % 13.8 % (24.0-44.0); MEAN CORPUSCULAR HEMOGLOBIN 28.2 pg (27.0-33.0); MEAN CORPUSCULAR HGB CONC 32.6 g/dl (32.0-36.5); MEAN CORPUSCULAR VOLUME 86.5 fl (80.0-96.0); MONO # 0.7 10^3/uL (0.0-0.8); MONO % 6.1 % (2.0-8.0); NEUTROPHILS % 77.5 % (36.0-66.0); PLATELET COUNT, AUTOMATED 197 10^3/uL (150-450); RED BLOOD COUNT 3.12 10^6/uL (4.00-5.40); WHITE BLOOD COUNT 11.6 10^3/uL (4.0-10.0)
[2021-08-29 21:11] LABS: CALCIUM LEVEL 8.9 MG/DL (8.8-10.2); CREATININE FOR GFR 2.28 MG/DL (0.55-1.30); GLOMERULAR FILTRATION RATE 22.7 (>45); POTASSIUM SERUM 4.3 MEQ/L (3.5-5.1)
--- NOTE | 2021-08-29 21:15 | REPVR ---
PROCEDURE INFORMATION: Exam: US Duplex Lower Extremity Veins, Bilateral Exam date and time: 08/29/2021 8:56 PM Age: 70 years old Clinical indication: Pain; Leg, lower; Bilateral; Additional info: Bilateral calf pain TECHNIQUE: Imaging protocol: Real-time duplex ultrasound of the extremities with 2-D robertson scale, color Doppler flow and spectral waveform analysis with image documentation. Complete exam focused on the bilateral lower extremity veins. COMPARISON: US Duplex, Ext,LOWER veins,unilat 09/09/2019 12:32 PM FINDINGS: Right deep veins: Unremarkable. The common femoral, femoral, proximal profunda femoral and popliteal veins are patent without thrombus. Normal Doppler waveforms. Normal compressibility and/or augmentation response. Right superficial veins: Saphenofemoral junction is patent without thrombus. Left deep veins: Unremarkable. The common femoral, femoral, proximal profunda femoral and popliteal veins are patent without thrombus. Normal Doppler waveforms. Normal compressibility and/or augmentation response. Left superficial veins: Saphenofemoral junction is patent without thrombus. Soft tissues: Lower leg edema. IMPRESSION: No evidence of deep vein thrombosis. Electronically signed by: Sanchez Donis On 08/29/2021 21:14:51 PM
[2021-08-29 21:21] LABS: INR 1.16; PROTHROMBIN TIME 15.2 SECONDS (12.7-14.5)
[2021-08-29 21:22] LABS: PARTIAL THROMBOPLASTIN TIME 37.5 SECONDS (25.9-37.0)
[2021-08-29] MEDS ORDERED: methocarbamoL 500 MG TAB PO ONE (21:50)
[2021-08-29] MEDS ORDERED: METH-1164 PO (21:52)
[2021-08-29 21:55] VITALS: BP 162/89
== END 2021-08-29 22:06 | disposition home or self-care (01) ==
LOC: M ED 14:59
DX: R25.2 Cramp and spasm (principal); E78.5 Hyperlipidemia, unspecified; I10 Essential (primary) hypertension; M79.605 Pain in left leg; M79.604 Pain in right leg

== ENCOUNTER 2021-09-03 11:27 | Inpatient (IN) | payer MEDICARE ==
[~2021-09-03] VITALS: Ht 154.9 cm; Wt 87.6 kg
[~2021-09-03 11:27] MED LIST changes: -CEFD1CAP8 PO; +CEFD300C41 PO; +ISOS20TA4 PO; -ISOS20TAB PO; -LEVO250T12 PO; +LEVO250T3 PO; -LEVO500T3 PO; +LEVO500T4 PO; +LOSA50TA28 PO; -LOSA50TA88 PO; +METH-1164 PO; +POTA-149 PO; -POTA10TA16 PO
[2021-09-03 11:44] LABS: BASO % 0.3 % (0.0-1.0); EOS # 0.1 10^3/uL (0.0-0.5); EOS % 0.7 % (0.0-3.0); HEMATOCRIT 27.9 % (36.0-47.0); HEMOGLOBIN 9.1 g/dl (12.0-15.5); LYMPH # 1.5 10^3/uL (1.5-5.0); LYMPH % 10.9 % (24.0-44.0); MEAN CORPUSCULAR HEMOGLOBIN 28.4 pg (27.0-33.0); MEAN CORPUSCULAR HGB CONC 32.6 g/dl (32.0-36.5); MEAN CORPUSCULAR VOLUME 87.2 fl (80.0-96.0); MONO # 0.7 10^3/uL (0.0-0.8); NEUTROPHILS # 11.4 10^3/uL (1.5-8.5); NEUTROPHILS % 82.4 % (36.0-66.0); PLATELET COUNT, AUTOMATED 267 10^3/uL (150-450); WHITE BLOOD COUNT 13.9 10^3/uL (4.0-10.0)
[2021-09-03 12:10] LABS: HEMOGLOBIN A1c 9.5 %
[2021-09-03 12:15] LABS: CALCIUM LEVEL 8.6 MG/DL (8.8-10.2); CREATININE FOR GFR 2.25 MG/DL (0.55-1.30); POTASSIUM SERUM 4.1 MEQ/L (3.5-5.1)
[2021-09-04] MEDS ORDERED: VANCOMYCIN HCL 1,000 MG, VIAL MATE ADAPTER 1 EACH in NS 250 ML IV SCH (16:55)
[2021-09-04 18:18] VITALS: BP 160/80
[2021-09-04 18:51] LABS: HEMATOCRIT 25.6 % (36.0-47.0); HEMOGLOBIN 8.3 g/dl (12.0-15.5); MEAN CORPUSCULAR HEMOGLOBIN 27.9 pg (27.0-33.0); MEAN CORPUSCULAR HGB CONC 32.4 g/dl (32.0-36.5); MEAN CORPUSCULAR VOLUME 86.2 fl (80.0-96.0); PLATELET COUNT, AUTOMATED 255 10^3/uL (150-450); RED BLOOD COUNT 2.97 10^6/uL (4.00-5.40); WHITE BLOOD COUNT 12.8 10^3/uL (4.0-10.0)
[2021-09-04 19:07] LABS: INR 1.32; PROTHROMBIN TIME 16.8 SECONDS (12.7-14.5)
[2021-09-04 19:16] LABS: ALBUMIN 2.4 GM/DL (3.2-5.2); BILIRUBIN,TOTAL 0.3 MG/DL (0.2-1.0); CALCIUM LEVEL 8.5 MG/DL (8.8-10.2); CREATININE FOR GFR 1.94 MG/DL (0.55-1.30); GLOMERULAR FILTRATION RATE 27.3 (>45); POTASSIUM SERUM 3.9 MEQ/L (3.5-5.1); TOTAL PROTEIN 5.8 GM/DL (6.4-8.2)
[2021-09-04] MEDS: CEFEPIME HCL 2 GM in D5W 50 ML IV SCH (20:44)
[2021-09-04] MEDS ORDERED: AMMO12CR7 TOP (20:47)
[2021-09-04] MEDS ORDERED: ECOT81TA5 PO (20:59)
[2021-09-04] MEDS ORDERED: LIPI20TA PO (20:59)
[2021-09-04] MEDS ORDERED: OMEP40CA4 PO (20:59)
[2021-09-04] MEDS ORDERED: METH-1164 PO (20:59)
[2021-09-04] MEDS ORDERED: DILT30TA PO (20:59)
[2021-09-04] MEDS ORDERED: HOME MED LIST COMPLETE! XX SCH (21:00)
[2021-09-04] MEDS ORDERED: SERTRALINE HCL 50 MG TAB PO SCH (21:00)
[2021-09-04 22:00] VITALS: BP 174/59
[2021-09-04] MEDS ORDERED: VANCOMYCIN HCL 1,000 MG, VIAL MATE ADAPTER 1 EACH in NS 250 ML IV ONE (22:00)
[2021-09-04] MEDS ORDERED: hydrOXYzine 10 MG TAB PO PRN (22:45)
[2021-09-04] MEDS ORDERED: GLUCOSE 4GM CHEW TABLET PO PRN (22:45)
[2021-09-04] MEDS ORDERED: DEXTROSE 50% 50 ML SYRINGE IV PRN (22:45)
[2021-09-04] MEDS ORDERED: GLUCAGON INJ 1MG VIAL SC PRN (22:45)
[2021-09-04] MEDS ORDERED: VANCOMYCIN HCL 750 MG, VIAL MATE ADAPTER 1 EACH in NS 250 ML IV ONE (23:00)
[2021-09-04] MEDS: ATORVASTATIN 20 MG TAB PO SCH (23:15)
[2021-09-04] MEDS: CARVedilol 12.5 MG TAB PO SCH (23:15)
[2021-09-04] MEDS: HumaLOG INSULIN (NovoLOG) PER UNIT SC SCH (23:16)
[2021-09-04] MEDS: rOPINIRole 1MG TAB PO SCH (23:16)
[2021-09-04] MEDS: FERROUS GLUCONATE 324 MG TAB PO SCH (23:16)
[2021-09-04] MEDS: LEVEMIR (INSULIN DETEMIR) 1 UNITS/0.01ML SC SCH (23:18)
[2021-09-05] VITALS (13 sets, daily range): BP systolic 139–210; BP diastolic 60–143
[2021-09-05] MEDS: methocarbamoL 500 MG TAB PO SCH ×4 (00:21→20:31)
[2021-09-05] MEDS: LACTIC ACID 12% LOTION 225 GM BTL TOP SCH ×2 (00:36→22:18)
[2021-09-05 06:42] LABS: HEMATOCRIT 21.8 % (36.0-47.0); HEMOGLOBIN 7.1 g/dl (12.0-15.5); MEAN CORPUSCULAR HEMOGLOBIN 28.1 pg (27.0-33.0); MEAN CORPUSCULAR HGB CONC 32.6 g/dl (32.0-36.5); MEAN CORPUSCULAR VOLUME 86.2 fl (80.0-96.0); PLATELET COUNT, AUTOMATED 234 10^3/uL (150-450); RED BLOOD COUNT 2.53 10^6/uL (4.00-5.40); WHITE BLOOD COUNT 9.4 10^3/uL (4.0-10.0)
[2021-09-05 07:10] LABS: CALCIUM LEVEL 8.2 MG/DL (8.8-10.2); CREATININE FOR GFR 1.88 MG/DL (0.55-1.30); GLOMERULAR FILTRATION RATE 28.3 (>45); MAGNESIUM LEVEL 2.2 MG/DL (1.8-2.4); POTASSIUM SERUM 3.7 MEQ/L (3.5-5.1)
[2021-09-05] MEDS: HumaLOG INSULIN (NovoLOG) PER UNIT SC SCH ×5 (07:30→20:00)
[2021-09-05] MEDS: ASPIRIN 81MG ENTERIC TABLET PO SCH (08:00)
[2021-09-05] MEDS: rOPINIRole 1MG TAB PO SCH ×2 (08:00→20:30)
[2021-09-05] MEDS: CEFEPIME HCL 2 GM in D5W 50 ML IV SCH ×2 (08:00→20:22)
[2021-09-05] MEDS: OMEPRAZOLE 20 MG CAP PO SCH (08:01)
[2021-09-05] MEDS: TORSEMIDE 100 MG TAB PO SCH ×2 (08:02→17:20)
[2021-09-05] MEDS: CARVedilol 12.5 MG TAB PO SCH ×2 (08:03→20:30)
[2021-09-05] MEDS: FERROUS GLUCONATE 324 MG TAB PO SCH ×2 (08:03→20:30)
[2021-09-05] MEDS: POTASSIUM CHLORIDE 10MEQ SR TABLET PO SCH (08:03)
[2021-09-05] MEDS ORDERED: PREVNAR 13 VACCINE SYRINGE IM ONE (09:00)
[2021-09-05] MEDS: VANCOMYCIN HCL 750 MG, VIAL MATE ADAPTER 1 EACH in NS 250 ML IV SCH (10:10)
[2021-09-05] MEDS ORDERED: VANCOMYCIN HCL 500 MG in D5W MINI-BAG PLUS 100 ML IV SCH (11:00)
[2021-09-05] MEDS ORDERED: LIDOCAINE 2% 100MG/5ML SDV (FOR ANES.) As Ordered ONE (11:05)
[2021-09-05] MEDS ORDERED: MIDAZOLAM INJ 2MG/2ML VIAL (J2250 PER 1MG) As Ordered ONE (11:06)
[2021-09-05] MEDS ORDERED: propofoL 500 MG/50 ML VIAL As Ordered ONE (11:06)
[2021-09-05] MEDS ORDERED: fentaNYL 100 MCG/2 ML INJECTION (J3010) As Ordered ONE (11:06)
[2021-09-05] MEDS ORDERED: BUPIVACAINE HCL 0.5% 10ML VIAL As Ordered ONE (11:16)
[2021-09-05] MEDS ORDERED: LIDOCAINE 1% MDV 20ML VIAL As Ordered ONE (11:16)
[2021-09-05] MEDS ORDERED: oxyCODONE 5MG TAB PO PRN (12:25)
[2021-09-05] MEDS ORDERED: fentaNYL 100 MCG/2 ML INJECTION (J3010) IV PRN (12:25)
[2021-09-05] MEDS ORDERED: ONDANSETRON 4MG/2ML VIAL IV PRN (12:25)
[2021-09-05] MEDS ORDERED: LR 1,000 ML IV SCH (12:25)
[2021-09-05] MEDS ORDERED: **hydrALAZINE HCL** 25 MG TAB PO ONE (13:50)
[2021-09-05] MEDS ORDERED: hydrALAZINE 20MG/ML 1ML VIAL (J0360 PER 20MG) IV PRN (18:30)
[2021-09-05] MEDS ORDERED: hydrALAZINE 20MG/ML 1ML VIAL (J0360 PER 20MG) As Ordered ONE (18:49)
[2021-09-05] MEDS: SERTRALINE 100 MG TAB PO SCH (20:30)
[2021-09-05] MEDS: ATORVASTATIN 20 MG TAB PO SCH (20:31)
[2021-09-05] MEDS: LEVEMIR (INSULIN DETEMIR) 1 UNITS/0.01ML SC SCH (20:37)
[2021-09-05] MEDS ORDERED: **hydrALAZINE** 50 MG TAB PO PRN (21:45)
[2021-09-05] MEDS: ACETAMINOPHEN TAB 650MG DOSE (2X325MG) PO PRN (22:17)
[2021-09-06] VITALS (8 sets, daily range): BP systolic 133–188; BP diastolic 45–63; O2SAT 97
[2021-09-06] MEDS ORDERED: PERCOCET 5MG/325MG TAB PO PRN (00:50)
[2021-09-06] MEDS: PERCOCET 5MG/325MG TAB PO PRN ×2 (04:38→13:53)
[2021-09-06 06:45] LABS: HEMATOCRIT 25.8 % (36.0-47.0); HEMOGLOBIN 8.2 g/dl (12.0-15.5); MEAN CORPUSCULAR HEMOGLOBIN 27.7 pg (27.0-33.0); MEAN CORPUSCULAR HGB CONC 31.8 g/dl (32.0-36.5); MEAN CORPUSCULAR VOLUME 87.2 fl (80.0-96.0); PLATELET COUNT, AUTOMATED 265 10^3/uL (150-450); RED BLOOD COUNT 2.96 10^6/uL (4.00-5.40); WHITE BLOOD COUNT 11.2 10^3/uL (4.0-10.0)
[2021-09-06 07:00] LABS: CALCIUM LEVEL 8.7 MG/DL (8.8-10.2); CREATININE FOR GFR 1.94 MG/DL (0.55-1.30); GLOMERULAR FILTRATION RATE 27.3 (>45); POTASSIUM SERUM 3.4 MEQ/L (3.5-5.1)
[2021-09-06] MEDS: HumaLOG INSULIN (NovoLOG) PER UNIT SC SCH ×4 (07:30→21:42)
[2021-09-06] MEDS: CEFEPIME HCL 2 GM in D5W 50 ML IV SCH ×2 (09:20→21:41)
[2021-09-06] MEDS: TORSEMIDE 100 MG TAB PO SCH ×2 (09:23→17:09)
[2021-09-06] MEDS: rOPINIRole 1MG TAB PO SCH ×2 (09:24→21:42)
[2021-09-06] MEDS: methocarbamoL 500 MG TAB PO SCH ×3 (09:24→21:42)
[2021-09-06] MEDS: ASPIRIN 81MG ENTERIC TABLET PO SCH (09:24)
[2021-09-06] MEDS: FERROUS GLUCONATE 324 MG TAB PO SCH ×2 (09:24→21:41)
[2021-09-06] MEDS: CARVedilol 12.5 MG TAB PO SCH ×2 (09:24→21:43)
[2021-09-06] MEDS: OMEPRAZOLE 20 MG CAP PO SCH (09:24)
[2021-09-06] MEDS: POTASSIUM CHLORIDE 10MEQ SR TABLET PO SCH (09:24)
[2021-09-06] MEDS: VANCOMYCIN HCL 750 MG, VIAL MATE ADAPTER 1 EACH in NS 250 ML IV SCH (10:14)
[2021-09-06] MEDS ORDERED: VANCOMYCIN INTERMITTENT/PULSE DOSING BY CLINICAL PHARMACIST PER DOSING PROTOCOL XX SCH (12:05)
[2021-09-06] MEDS: ACETAMINOPHEN TAB 650MG DOSE (2X325MG) PO PRN (12:35)
[2021-09-06] MEDS ORDERED: MORPHINE 4 MG/ML 1ML VIAL/SYRINGE (J2270) IV PRN (17:00)
[2021-09-06] MEDS: ATORVASTATIN 20 MG TAB PO SCH (21:42)
[2021-09-06] MEDS: SERTRALINE 100 MG TAB PO SCH (21:42)
[2021-09-06] MEDS: LACTIC ACID 12% LOTION 225 GM BTL TOP SCH (21:43)
[2021-09-06] MEDS: LEVEMIR (INSULIN DETEMIR) 1 UNITS/0.01ML SC SCH (21:43)
[2021-09-07 02:38] VITALS: BP 164/47
[2021-09-07 05:26] VITALS: BP 164/52; O2SAT 99
[2021-09-07 06:19] LABS: HEMATOCRIT 25.3 % (36.0-47.0); MEAN CORPUSCULAR HEMOGLOBIN 27.5 pg (27.0-33.0); MEAN CORPUSCULAR HGB CONC 31.6 g/dl (32.0-36.5); MEAN CORPUSCULAR VOLUME 86.9 fl (80.0-96.0); PLATELET COUNT, AUTOMATED 263 10^3/uL (150-450); RED BLOOD COUNT 2.91 10^6/uL (4.00-5.40); WHITE BLOOD COUNT 10.3 10^3/uL (4.0-10.0)
[2021-09-07 06:34] LABS: CALCIUM LEVEL 8.7 MG/DL (8.8-10.2); CREATININE FOR GFR 2.14 MG/DL (0.55-1.30); GLOMERULAR FILTRATION RATE 24.4 (>45); POTASSIUM SERUM 3.6 MEQ/L (3.5-5.1)
[2021-09-07] MEDS: methocarbamoL 500 MG TAB PO SCH ×3 (08:21→20:13)
[2021-09-07] MEDS: TORSEMIDE 100 MG TAB PO SCH ×2 (08:21→17:21)
[2021-09-07] MEDS: OMEPRAZOLE 20 MG CAP PO SCH (08:22)
[2021-09-07] MEDS: ASPIRIN 81MG ENTERIC TABLET PO SCH (08:22)
[2021-09-07] MEDS: rOPINIRole 1MG TAB PO SCH ×2 (08:22→20:13)
[2021-09-07] MEDS: CEFEPIME HCL 2 GM in D5W 50 ML IV SCH (08:23)
[2021-09-07] MEDS: POTASSIUM CHLORIDE 10MEQ SR TABLET PO SCH (08:23)
[2021-09-07] MEDS: HumaLOG INSULIN (NovoLOG) PER UNIT SC SCH ×4 (08:23→20:45)
[2021-09-07] MEDS: FERROUS GLUCONATE 324 MG TAB PO SCH ×2 (08:24→20:13)
[2021-09-07] MEDS: CARVedilol 12.5 MG TAB PO SCH ×2 (08:27→20:20)
[2021-09-07] MEDS: VANCOMYCIN HCL 500 MG in D5W MINI-BAG PLUS 100 ML IV SCH (13:11)
[2021-09-07 14:00] VITALS: BP 149/56
[2021-09-07] MEDS: PERCOCET 5MG/325MG TAB PO PRN ×2 (14:11→21:46)
[2021-09-07] MEDS: RIVAROXABAN 15 MG TAB (XARELTO) PO SCH (17:20)
[2021-09-07 20:00] VITALS: BP 146/60
[2021-09-07] MEDS ORDERED: CEFEPIME HCL 1 GM in D5W MINI-BAG PLUS 50 ML IV SCH (20:00)
[2021-09-07] MEDS: ATORVASTATIN 20 MG TAB PO SCH (20:13)
[2021-09-07] MEDS: SERTRALINE 100 MG TAB PO SCH (20:13)
[2021-09-07] MEDS: LEVEMIR (INSULIN DETEMIR) 1 UNITS/0.01ML SC SCH (20:14)
[2021-09-07] MEDS: LACTIC ACID 12% LOTION 225 GM BTL TOP SCH (20:14)
[2021-09-08 04:00] VITALS: BP 164/57
[2021-09-08 06:20] LABS: HEMATOCRIT 23.2 % (36.0-47.0); HEMOGLOBIN 7.5 g/dl (12.0-15.5); MEAN CORPUSCULAR HGB CONC 32.3 g/dl (32.0-36.5); MEAN CORPUSCULAR VOLUME 86.6 fl (80.0-96.0); PLATELET COUNT, AUTOMATED 255 10^3/uL (150-450); RED BLOOD COUNT 2.68 10^6/uL (4.00-5.40); WHITE BLOOD COUNT 11.5 10^3/uL (4.0-10.0)
[2021-09-08 06:44] LABS: CALCIUM LEVEL 7.9 MG/DL (8.8-10.2); CREATININE FOR GFR 2.32 MG/DL (0.55-1.30); GLOMERULAR FILTRATION RATE 22.2 (>45); POTASSIUM SERUM 3.3 MEQ/L (3.5-5.1)
[2021-09-08] MEDS: HumaLOG INSULIN (NovoLOG) PER UNIT SC SCH ×4 (09:15→20:36)
[2021-09-08] MEDS: OMEPRAZOLE 20 MG CAP PO SCH (09:16)
[2021-09-08] MEDS: ASPIRIN 81MG ENTERIC TABLET PO SCH (09:17)
[2021-09-08] MEDS: methocarbamoL 500 MG TAB PO SCH ×3 (09:17→20:36)
[2021-09-08] MEDS: TORSEMIDE 100 MG TAB PO SCH ×2 (09:17→16:59)
[2021-09-08] MEDS: rOPINIRole 1MG TAB PO SCH ×2 (09:17→20:36)
[2021-09-08] MEDS: FERROUS GLUCONATE 324 MG TAB PO SCH ×2 (09:17→20:36)
[2021-09-08] MEDS: POTASSIUM CHLORIDE 10MEQ SR TABLET PO SCH (09:18)
[2021-09-08] MEDS: CARVedilol 12.5 MG TAB PO SCH ×2 (09:19→20:37)
[2021-09-08] MEDS ORDERED: POLYVINYL ALCOHOL OPHTH SOLN 15 ML(LIQUITEARS) OU PRN (11:55)
[2021-09-08] MEDS: VANCOMYCIN HCL 500 MG in D5W MINI-BAG PLUS 100 ML IV SCH (12:34)
[2021-09-08] MEDS: PERCOCET 5MG/325MG TAB PO PRN (13:39)
[2021-09-08 14:00] VITALS: BP 150/66
[2021-09-08] MEDS: RIVAROXABAN 15 MG TAB (XARELTO) PO SCH (16:59)
[2021-09-08] MEDS: LEVEMIR (INSULIN DETEMIR) 1 UNITS/0.01ML SC SCH (20:35)
[2021-09-08] MEDS: SERTRALINE 100 MG TAB PO SCH (20:36)
[2021-09-08] MEDS: ATORVASTATIN 20 MG TAB PO SCH (20:36)
[2021-09-08] MEDS: LACTIC ACID 12% LOTION 225 GM BTL TOP SCH (20:37)
[2021-09-09] MEDS: PERCOCET 5MG/325MG TAB PO PRN (02:19)
[2021-09-09 06:00] VITALS: BP 187/72
[2021-09-09 06:28] LABS: HEMATOCRIT 23.6 % (36.0-47.0); HEMOGLOBIN 7.5 g/dl (12.0-15.5); MEAN CORPUSCULAR HEMOGLOBIN 27.7 pg (27.0-33.0); MEAN CORPUSCULAR HGB CONC 31.8 g/dl (32.0-36.5); MEAN CORPUSCULAR VOLUME 87.1 fl (80.0-96.0); PLATELET COUNT, AUTOMATED 270 10^3/uL (150-450); RED BLOOD COUNT 2.71 10^6/uL (4.00-5.40); WHITE BLOOD COUNT 12.4 10^3/uL (4.0-10.0)
[2021-09-09 07:04] LABS: CALCIUM LEVEL 8.3 MG/DL (8.8-10.2); CREATININE FOR GFR 2.77 MG/DL (0.55-1.30); GLOMERULAR FILTRATION RATE 18.1 (>45); POTASSIUM SERUM 3.7 MEQ/L (3.5-5.1)
[2021-09-09] MEDS: TORSEMIDE 100 MG TAB PO SCH (08:21)
[2021-09-09] MEDS: rOPINIRole 1MG TAB PO SCH (08:21)
[2021-09-09] MEDS: ASPIRIN 81MG ENTERIC TABLET PO SCH (08:21)
[2021-09-09] MEDS: OMEPRAZOLE 20 MG CAP PO SCH (08:21)
[2021-09-09] MEDS: FERROUS GLUCONATE 324 MG TAB PO SCH (08:21)
[2021-09-09] MEDS: POTASSIUM CHLORIDE 10MEQ SR TABLET PO SCH (08:21)
[2021-09-09] MEDS: methocarbamoL 500 MG TAB PO SCH (08:21)
[2021-09-09] MEDS: HumaLOG INSULIN (NovoLOG) PER UNIT SC SCH ×2 (08:22→12:00)
[2021-09-09 08:28] VITALS: BP 132/60
[2021-09-09] MEDS: CARVedilol 12.5 MG TAB PO SCH (08:29)
[2021-09-09] MEDS ORDERED: AMLO1TAB25 PO (09:14)
[2021-09-09] MEDS ORDERED: CARV25TA PO (09:14)
[2021-09-09] MEDS ORDERED: POLYOPD OU (09:14)
[2021-09-09] MEDS ORDERED: PERCOCET PO (09:14)
[2021-09-09] MEDS ORDERED: LINE1TAB6 PO (09:14)
[2021-09-10] MEDS ORDERED: VANCOMYCIN HCL 500 MG in D5W MINI-BAG PLUS 100 ML IV SCH (08:00)
== END 2021-09-09 13:41 | disposition home health service (06) | DRG 617 ==
LOC: M SHH 11:27 → UNDOADMIN 09-04 16:12 → M MSPAV 09-04 16:12
PROVIDERS: ADMIT Internal Medicine; ATTEND Internal Medicine
PROC: 0L8V0ZZ Division of Right Foot Tendon, Open Approach (ICD-10-PCS; 2021-09-05)
PROC: 0Y6Q0Z0 Detachment at Left 1st Toe, Complete, Open Approach (ICD-10-PCS; principal; 2021-09-05 11:45)
DX: E11.621 Type 2 diabetes mellitus with foot ulcer (principal); I50.32 Chronic diastolic (congestive) heart failure; I13.0 Hypertensive heart and chronic kidney disease with heart failure and stage 1 through stage 4 chronic kidney disease, or unspecified chronic kidney disease; E11.52 Type 2 diabetes mellitus with diabetic peripheral angiopathy with gangrene; N18.4 Chronic kidney disease, stage 4 (severe); L97.519 Non-pressure chronic ulcer of other part of right foot with unspecified severity; M20.5X1 Other deformities of toe(s) (acquired), right foot; I25.10 Atherosclerotic heart disease of native coronary artery without angina pectoris; I16.0 Hypertensive urgency; I48.0 Paroxysmal atrial fibrillation; G25.81 Restless legs syndrome; J44.9 Chronic obstructive pulmonary disease, unspecified; Z95.1 Presence of aortocoronary bypass graft; E11.40 Type 2 diabetes mellitus with diabetic neuropathy, unspecified; Z79.82 Long term (current) use of aspirin; Z79.899 Other long term (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 therapy; Z79.4 Long term (current) use of insulin; Z88.0 Allergy status to penicillin; Z95.2 Presence of prosthetic heart valve; D64.9 Anemia, unspecified; F32.A Depression, unspecified; K21.9 Gastro-esophageal reflux disease without esophagitis; I97.3 Postprocedural hypertension

== ENCOUNTER 2021-09-17 04:51 | Inpatient (IN) | payer MEDICARE ==
[2021-09-17] VITALS (10 sets, daily range): BP systolic 85–229; BP diastolic 36–151
[~2021-09-17] VITALS: Ht 154.9 cm; Wt 82.3 kg
[~2021-09-17 04:51] MED LIST changes: +ECOT81TA5 PO; +LINE1TAB6 PO; +PERCOCET PO; +POLYOPD OU
[2021-09-17 05:24] LABS: BASO % 0.1 % (0.0-1.0); LYMPH # 1.3 10^3/uL (1.5-5.0); LYMPH % 18.5 % (24.0-44.0); MEAN CORPUSCULAR HGB CONC 31.6 g/dl (32.0-36.5); MEAN CORPUSCULAR VOLUME 88.8 fl (80.0-96.0); MONO # 0.3 10^3/uL (0.0-0.8); NEUTROPHILS # 5.1 10^3/uL (1.5-8.5); NEUTROPHILS % 76.1 % (36.0-66.0); PLATELET COUNT, AUTOMATED 149 10^3/uL (150-450); RED BLOOD COUNT 2.14 10^6/uL (4.00-5.40); WHITE BLOOD COUNT 6.7 10^3/uL (4.0-10.0)
[2021-09-17 05:59] LABS: CK-MB VALUE MASS 2.5 NG/ML (<3.6); MB/CK RELATIVE INDEX 2.66 (< OR =4)
[2021-09-17] MEDS: SUCRALFATE SUSP 1GM/10ML UD PO SCH ×3 (06:00→18:30)
[2021-09-17 06:04] LABS: CALCIUM LEVEL 7.9 MG/DL (8.8-10.2); CREATININE FOR GFR 1.94 MG/DL (0.55-1.30); GLOMERULAR FILTRATION RATE 27.3 (>45); POTASSIUM SERUM 5.9 MEQ/L (3.5-5.1)
[2021-09-17] MEDS ORDERED: NITROGLYCERIN 0.4 MG SUBL TABLET SL PRN (06:25)
[2021-09-17 06:59] LABS: INR 1.67; PROTHROMBIN TIME 20.1 SECONDS (12.7-14.5)
[2021-09-17 07:12] LABS: CK-MB VALUE MASS 2.6 NG/ML (<3.6); MB/CK RELATIVE INDEX 3.47 (< OR =4)
[2021-09-17] MEDS ORDERED: GLUCOSE 4GM CHEW TABLET PO PRN (07:50)
[2021-09-17] MEDS ORDERED: DEXTROSE 50% 50 ML SYRINGE IV PRN (07:50)
[2021-09-17] MEDS ORDERED: SOD POLYSTYRENE SULFONATE SUSP 15 GM/60 ML UD PO ONE (07:50)
[2021-09-17] MEDS ORDERED: GLUCAGON INJ 1MG VIAL SC PRN (07:50)
[2021-09-17] MEDS: HumaLOG INSULIN (NovoLOG) PER UNIT SC SCH ×3 (08:50→18:30)
[2021-09-17] MEDS: guaiFENesin ER 600 MG TAB PO SCH ×2 (09:00→21:08)
[2021-09-17] MEDS ORDERED: LABETALOL 100MG/20ML VIAL IV STA ×2 (09:24→13:25)
[2021-09-17] MEDS: PANTOPRAZOLE 40MG VIAL (C9113 PER 1) IV SCH ×2 (11:32→21:10)
[2021-09-17] MEDS ORDERED: AMLO10TA PO (11:46)
[2021-09-17] MEDS ORDERED: CYCL-707 PO (11:59)
[2021-09-17] MEDS ORDERED: FUROSEMIDE 40MG/4ML VIAL (J1940) IV SCH (12:00)
[2021-09-17 12:04] LABS: HEMATOCRIT 23.1 % (36.0-47.0); HEMOGLOBIN 7.5 g/dl (12.0-15.5)
[2021-09-17] MEDS ORDERED: SERT50TA29 PO (12:04)
[2021-09-17] MEDS ORDERED: XARE2.5T PO (12:04)
[2021-09-17] MEDS ORDERED: DILT30TA PO (12:11)
[2021-09-17] MEDS ORDERED: MED NOTE (12:12)
[2021-09-17] MEDS ORDERED: HOME MED LIST COMPLETE! XX SCH (12:15)
[2021-09-17 12:27] LABS: ALBUMIN 2.1 GM/DL (3.2-5.2); BILIRUBIN,TOTAL 0.6 MG/DL (0.2-1.0); CREATININE FOR GFR 1.91 MG/DL (0.55-1.30); GLOMERULAR FILTRATION RATE 27.8 (>45); POTASSIUM SERUM 5.1 MEQ/L (3.5-5.1)
[2021-09-17 12:32] LABS: CK-MB VALUE MASS 4.5 NG/ML (<3.6); MB/CK RELATIVE INDEX 4.5 (< OR =4)
[2021-09-17] MEDS: CARVedilol 12.5 MG TAB PO SCH ×2 (15:17→21:09)
[2021-09-17] MEDS: CYCLOBENZAPRINE 10MG TABLET PO SCH (15:17)
[2021-09-17] MEDS: FUROSEMIDE 100MG/10ML VIAL (J1940) IV SCH ×2 (15:19→21:17)
[2021-09-17 19:59] LABS: CK-MB VALUE MASS 15.4 NG/ML (<3.6); MB/CK RELATIVE INDEX 7.4 (< OR =4)
[2021-09-17] MEDS: rOPINIRole 1MG TAB PO SCH (21:08)
[2021-09-17] MEDS: LEVEMIR (INSULIN DETEMIR) 1 UNITS/0.01ML SC SCH (21:08)
[2021-09-17] MEDS: ATORVASTATIN 20 MG TAB PO SCH (21:09)
[2021-09-17] MEDS: LINEZOLID 600MG TABLET (ZYVOX) PO SCH (21:09)
[2021-09-17] MEDS: MULTIVITAMINS/MINERALS THERAP 1 TAB PO SCH (21:17)
[2021-09-17] MEDS: hydrOXYzine 10 MG TAB PO PRN (22:58)
[2021-09-17] MEDS: ACETAMINOPHEN TAB 650MG DOSE (2X325MG) PO PRN (22:58)
[2021-09-18] VITALS (11 sets, daily range): BP systolic 125–187; BP diastolic 58–79
[2021-09-18] MEDS: SUCRALFATE SUSP 1GM/10ML UD PO SCH ×5 (00:23→23:59)
[2021-09-18] MEDS: HumaLOG INSULIN (NovoLOG) PER UNIT SC SCH ×5 (00:26→21:00)
[2021-09-18 00:55] LABS: HEMATOCRIT 24.3 % (36.0-47.0); HEMOGLOBIN 7.9 g/dl (12.0-15.5)
[2021-09-18 00:56] LABS: CK-MB VALUE MASS 13.7 NG/ML (<3.6); MB/CK RELATIVE INDEX 6.75 (< OR =4)
[2021-09-18 04:56] LABS: BASO % 0.1 % (0.0-1.0); HEMATOCRIT 25.5 % (36.0-47.0); HEMOGLOBIN 8.2 g/dl (12.0-15.5); LYMPH # 1.4 10^3/uL (1.5-5.0); LYMPH % 18.1 % (24.0-44.0); MEAN CORPUSCULAR HEMOGLOBIN 28.2 pg (27.0-33.0); MEAN CORPUSCULAR HGB CONC 32.2 g/dl (32.0-36.5); MEAN CORPUSCULAR VOLUME 87.6 fl (80.0-96.0); MONO # 0.4 10^3/uL (0.0-0.8); MONO % 5.1 % (2.0-8.0); NEUTROPHILS # 5.8 10^3/uL (1.5-8.5); NEUTROPHILS % 76.2 % (36.0-66.0); PLATELET COUNT, AUTOMATED 124 10^3/uL (150-450); RED BLOOD COUNT 2.91 10^6/uL (4.00-5.40); WHITE BLOOD COUNT 7.6 10^3/uL (4.0-10.0)
[2021-09-18] MEDS: FUROSEMIDE 100MG/10ML VIAL (J1940) IV SCH (05:22)
[2021-09-18 05:25] LABS: ALBUMIN 1.9 GM/DL (3.2-5.2); BILIRUBIN,TOTAL 0.6 MG/DL (0.2-1.0); CALCIUM LEVEL 7.6 MG/DL (8.8-10.2); CREATININE FOR GFR 2.44 MG/DL (0.55-1.30); MAGNESIUM LEVEL 2.4 MG/DL (1.8-2.4); POTASSIUM SERUM 4.6 MEQ/L (3.5-5.1); TOTAL PROTEIN 4.6 GM/DL (6.4-8.2)
[2021-09-18] MEDS: CYCLOBENZAPRINE 10MG TABLET PO SCH (08:18)
[2021-09-18] MEDS: guaiFENesin ER 600 MG TAB PO SCH ×2 (08:20→21:07)
[2021-09-18] MEDS: CARVedilol 12.5 MG TAB PO SCH ×2 (08:20→21:07)
[2021-09-18] MEDS: LINEZOLID 600MG TABLET (ZYVOX) PO SCH ×2 (08:20→21:07)
[2021-09-18] MEDS: hydrOXYzine 10 MG TAB PO PRN (08:21)
[2021-09-18] MEDS: rOPINIRole 1MG TAB PO SCH ×2 (08:22→21:00)
[2021-09-18] MEDS: PANTOPRAZOLE 40MG VIAL (C9113 PER 1) IV SCH ×2 (08:28→21:00)
[2021-09-18] MEDS ORDERED: HEPARIN SOD (PORCINE) 5000UNITS/ML 1ML VIAL/SYRINGE IV PRN (10:25)
[2021-09-18] MEDS: HEPARIN DRIP 25,000 UNITS in IV 1 EA IV SCH ×2 (11:47→22:08)
[2021-09-18] MEDS ORDERED: FLUCONAZOLE 50MG TABLET PO ONE (12:00)
[2021-09-18 13:26] LABS: HEMATOCRIT 24.9 % (36.0-47.0); HEMOGLOBIN 8.1 g/dl (12.0-15.5)
[2021-09-18] MEDS: ATORVASTATIN 20 MG TAB PO SCH (21:00)
[2021-09-18] MEDS: TORSEMIDE 100 MG TAB PO SCH (21:00)
[2021-09-18] MEDS: MULTIVITAMINS/MINERALS THERAP 1 TAB PO SCH (21:00)
[2021-09-18] MEDS: LEVEMIR (INSULIN DETEMIR) 1 UNITS/0.01ML SC SCH (21:00)
[2021-09-18] MEDS: FERROUS GLUCONATE 324 MG TAB PO SCH (21:07)
[2021-09-19] VITALS (15 sets, daily range): BP systolic 102–208; BP diastolic 48–95
[2021-09-19] MEDS: ACETAMINOPHEN TAB 650MG DOSE (2X325MG) PO PRN (00:40)
[2021-09-19 04:20] LABS: BASO % 0.3 % (0.0-1.0); HEMATOCRIT 23.5 % (36.0-47.0); HEMOGLOBIN 7.5 g/dl (12.0-15.5); LYMPH # 1.3 10^3/uL (1.5-5.0); LYMPH % 17.6 % (24.0-44.0); MEAN CORPUSCULAR HEMOGLOBIN 28.2 pg (27.0-33.0); MEAN CORPUSCULAR HGB CONC 31.9 g/dl (32.0-36.5); MEAN CORPUSCULAR VOLUME 88.3 fl (80.0-96.0); MONO # 0.3 10^3/uL (0.0-0.8); MONO % 4.1 % (2.0-8.0); NEUTROPHILS # 5.7 10^3/uL (1.5-8.5); NEUTROPHILS % 77.7 % (36.0-66.0); PLATELET COUNT, AUTOMATED 110 10^3/uL (150-450); RED BLOOD COUNT 2.66 10^6/uL (4.00-5.40); WHITE BLOOD COUNT 7.3 10^3/uL (4.0-10.0)
[2021-09-19 05:02] LABS: ALBUMIN 1.9 GM/DL (3.2-5.2); BILIRUBIN,TOTAL 0.6 MG/DL (0.2-1.0); CALCIUM LEVEL 7.6 MG/DL (8.8-10.2); CREATININE FOR GFR 2.4 MG/DL (0.55-1.30); GLOMERULAR FILTRATION RATE 21.4 (>45); MAGNESIUM LEVEL 2.2 MG/DL (1.8-2.4); TOTAL PROTEIN 5.3 GM/DL (6.4-8.2)
[2021-09-19] MEDS: SUCRALFATE SUSP 1GM/10ML UD PO SCH ×3 (05:33→17:12)
[2021-09-19] MEDS: rOPINIRole 1MG TAB PO SCH ×2 (08:54→21:19)
[2021-09-19] MEDS: CYCLOBENZAPRINE 10MG TABLET PO SCH (08:54)
[2021-09-19] MEDS: HumaLOG INSULIN (NovoLOG) PER UNIT SC SCH ×4 (08:54→21:00)
[2021-09-19] MEDS: TORSEMIDE 100 MG TAB PO SCH ×2 (08:55→21:19)
[2021-09-19] MEDS: LINEZOLID 600MG TABLET (ZYVOX) PO SCH ×2 (08:56→21:18)
[2021-09-19] MEDS: guaiFENesin ER 600 MG TAB PO SCH ×2 (08:56→21:19)
[2021-09-19] MEDS: CARVedilol 12.5 MG TAB PO SCH ×2 (08:56→21:19)
[2021-09-19] MEDS: FERROUS GLUCONATE 324 MG TAB PO SCH ×2 (08:56→21:19)
[2021-09-19] MEDS: CALCITRIOL 0.25 MCG CAP (S0169) PO SCH (08:57)
[2021-09-19] MEDS: PANTOPRAZOLE 40MG VIAL (C9113 PER 1) IV SCH ×2 (08:57→21:18)
[2021-09-19] MEDS: HEPARIN DRIP 25,000 UNITS in IV 1 EA IV SCH (13:31)
[2021-09-19 14:59] LABS: HEMATOCRIT 31.9 % (36.0-47.0); HEMOGLOBIN 10.4 g/dl (12.0-15.5)
[2021-09-19] MEDS: ATORVASTATIN 20 MG TAB PO SCH (21:18)
[2021-09-19] MEDS: MULTIVITAMINS/MINERALS THERAP 1 TAB PO SCH (21:18)
[2021-09-19] MEDS: LEVEMIR (INSULIN DETEMIR) 1 UNITS/0.01ML SC SCH (21:20)
[2021-09-20] VITALS (13 sets, daily range): BP systolic 140–188; BP diastolic 65–77
[2021-09-20] MEDS: SUCRALFATE SUSP 1GM/10ML UD PO SCH ×5 (00:04→23:39)
[2021-09-20] MEDS: ACETAMINOPHEN TAB 650MG DOSE (2X325MG) PO PRN ×2 (01:28→17:11)
[2021-09-20 04:59] LABS: BASO % 0.1 % (0.0-1.0); HEMATOCRIT 27.2 % (36.0-47.0); HEMOGLOBIN 8.9 g/dl (12.0-15.5); LYMPH # 1.3 10^3/uL (1.5-5.0); LYMPH % 18.6 % (24.0-44.0); MEAN CORPUSCULAR HEMOGLOBIN 28.4 pg (27.0-33.0); MEAN CORPUSCULAR HGB CONC 32.7 g/dl (32.0-36.5); MEAN CORPUSCULAR VOLUME 86.9 fl (80.0-96.0); MONO # 0.4 10^3/uL (0.0-0.8); MONO % 5.1 % (2.0-8.0); NEUTROPHILS # 5.4 10^3/uL (1.5-8.5); NEUTROPHILS % 75.5 % (36.0-66.0); PLATELET COUNT, AUTOMATED 102 10^3/uL (150-450); RED BLOOD COUNT 3.13 10^6/uL (4.00-5.40); WHITE BLOOD COUNT 7.1 10^3/uL (4.0-10.0)
[2021-09-20 05:37] LABS: ALBUMIN 1.9 GM/DL (3.2-5.2); BILIRUBIN,TOTAL 0.5 MG/DL (0.2-1.0); CALCIUM LEVEL 7.5 MG/DL (8.8-10.2); CREATININE FOR GFR 2.54 MG/DL (0.55-1.30); POTASSIUM SERUM 3.6 MEQ/L (3.5-5.1); TOTAL PROTEIN 4.5 GM/DL (6.4-8.2)
[2021-09-20] MEDS: FERROUS GLUCONATE 324 MG TAB PO SCH ×2 (08:10→21:42)
[2021-09-20] MEDS: PANTOPRAZOLE 40MG VIAL (C9113 PER 1) IV SCH ×2 (08:10→21:41)
[2021-09-20] MEDS: guaiFENesin ER 600 MG TAB PO SCH ×2 (08:11→21:42)
[2021-09-20] MEDS: rOPINIRole 1MG TAB PO SCH ×2 (08:11→21:41)
[2021-09-20] MEDS: TORSEMIDE 100 MG TAB PO SCH ×2 (08:11→21:42)
[2021-09-20] MEDS: CYCLOBENZAPRINE 10MG TABLET PO SCH (08:12)
[2021-09-20] MEDS: LINEZOLID 600MG TABLET (ZYVOX) PO SCH ×2 (08:12→21:41)
[2021-09-20] MEDS: HumaLOG INSULIN (NovoLOG) PER UNIT SC SCH ×4 (08:19→21:00)
[2021-09-20] MEDS: CLOPIDOGREL 75 MG TAB PO SCH (09:39)
[2021-09-20] MEDS ORDERED: RIVAROXABAN 15 MG TAB (XARELTO) PO ONE (10:00)
[2021-09-20] MEDS: CARVedilol 12.5 MG TAB PO SCH ×2 (11:35→21:42)
[2021-09-20] MEDS ORDERED: **hydrALAZINE** 10 MG TAB PO SCH (14:00)
[2021-09-20] MEDS: LEVEMIR (INSULIN DETEMIR) 1 UNITS/0.01ML SC SCH (21:00)
[2021-09-20] MEDS: MULTIVITAMINS/MINERALS THERAP 1 TAB PO SCH (21:41)
[2021-09-20] MEDS: ATORVASTATIN 20 MG TAB PO SCH (21:42)
[2021-09-20] MEDS: **hydrALAZINE** 50 MG TAB PO SCH (22:43)
[2021-09-21] MEDS: ACETAMINOPHEN TAB 650MG DOSE (2X325MG) PO PRN ×3 (03:56→20:47)
[2021-09-21 04:00] VITALS: BP 179/78
[2021-09-21 05:05] LABS: BASO % 0.2 % (0.0-1.0); HEMATOCRIT 27.1 % (36.0-47.0); LYMPH # 0.8 10^3/uL (1.5-5.0); LYMPH % 12.8 % (24.0-44.0); MEAN CORPUSCULAR HEMOGLOBIN 28.5 pg (27.0-33.0); MEAN CORPUSCULAR HGB CONC 33.2 g/dl (32.0-36.5); MEAN CORPUSCULAR VOLUME 85.8 fl (80.0-96.0); MONO # 0.4 10^3/uL (0.0-0.8); MONO % 6.3 % (2.0-8.0); NEUTROPHILS # 4.9 10^3/uL (1.5-8.5); NEUTROPHILS % 80.2 % (36.0-66.0); RED BLOOD COUNT 3.16 10^6/uL (4.00-5.40); WHITE BLOOD COUNT 6.2 10^3/uL (4.0-10.0)
[2021-09-21 05:13] LABS: PLATELET COUNT, AUTOMATED 90 10^3/uL (150-450)
[2021-09-21 05:30] LABS: ALBUMIN 1.8 GM/DL (3.2-5.2); BILIRUBIN,TOTAL 0.7 MG/DL (0.2-1.0); CALCIUM LEVEL 7.6 MG/DL (8.8-10.2); CREATININE FOR GFR 2.56 MG/DL (0.55-1.30); GLOMERULAR FILTRATION RATE 19.8 (>45); MAGNESIUM LEVEL 1.7 MG/DL (1.8-2.4); POTASSIUM SERUM 3.4 MEQ/L (3.5-5.1); TOTAL PROTEIN 5.1 GM/DL (6.4-8.2)
[2021-09-21] MEDS: SUCRALFATE SUSP 1GM/10ML UD PO SCH ×3 (05:48→17:33)
[2021-09-21 06:00] VITALS: BP 132/61
[2021-09-21] MEDS: **hydrALAZINE** 50 MG TAB PO SCH ×3 (06:33→20:48)
[2021-09-21] MEDS ORDERED: POTASSIUM CHLORIDE 10% LIQ 20 MEQ/15 ML UDC PO ONE (06:35)
[2021-09-21 08:00] VITALS: BP 172/74
[2021-09-21] MEDS: PANTOPRAZOLE 40MG VIAL (C9113 PER 1) IV SCH ×2 (08:08→20:47)
[2021-09-21] MEDS: CALCITRIOL 0.25 MCG CAP (S0169) PO SCH (08:08)
[2021-09-21] MEDS: FERROUS GLUCONATE 324 MG TAB PO SCH ×2 (08:09→20:47)
[2021-09-21] MEDS: rOPINIRole 1MG TAB PO SCH ×2 (08:09→20:47)
[2021-09-21] MEDS: LINEZOLID 600MG TABLET (ZYVOX) PO SCH ×2 (08:09→20:47)
[2021-09-21] MEDS: TORSEMIDE 100 MG TAB PO SCH ×2 (08:09→20:47)
[2021-09-21] MEDS: CLOPIDOGREL 75 MG TAB PO SCH (08:09)
[2021-09-21] MEDS: CYCLOBENZAPRINE 10MG TABLET PO SCH (08:09)
[2021-09-21] MEDS: CARVedilol 12.5 MG TAB PO SCH ×2 (08:11→20:46)
[2021-09-21] MEDS: guaiFENesin ER 600 MG TAB PO SCH ×2 (08:13→20:47)
[2021-09-21] MEDS: HumaLOG INSULIN (NovoLOG) PER UNIT SC SCH ×4 (08:14→20:45)
[2021-09-21] MEDS ORDERED: POTASSIUM CHLORIDE 10MEQ SR TABLET PO ONE (08:15)
[2021-09-21 12:00] VITALS: BP 154/65
[2021-09-21 16:00] VITALS: BP 122/59
[2021-09-21] MEDS: RIVAROXABAN 15 MG TAB (XARELTO) PO SCH (17:34)
[2021-09-21 20:00] VITALS: BP 170/78
[2021-09-21] MEDS: MULTIVITAMINS/MINERALS THERAP 1 TAB PO SCH (20:46)
[2021-09-21] MEDS: ATORVASTATIN 20 MG TAB PO SCH (20:47)
[2021-09-21] MEDS: LEVEMIR (INSULIN DETEMIR) 1 UNITS/0.01ML SC SCH (20:48)
[2021-09-22] MEDS: SUCRALFATE SUSP 1GM/10ML UD PO SCH ×4 (02:06→17:17)
[2021-09-22 04:00] VITALS: BP 134/60
[2021-09-22] MEDS: **hydrALAZINE** 50 MG TAB PO SCH ×3 (06:10→22:23)
[2021-09-22] MEDS: HumaLOG INSULIN (NovoLOG) PER UNIT SC SCH ×4 (07:42→20:58)
[2021-09-22 08:00] VITALS: BP 119/58
[2021-09-22] MEDS: PANTOPRAZOLE 40MG VIAL (C9113 PER 1) IV SCH ×2 (08:16→20:58)
[2021-09-22] MEDS: TORSEMIDE 100 MG TAB PO SCH (08:17)
[2021-09-22] MEDS: rOPINIRole 1MG TAB PO SCH (08:17)
[2021-09-22] MEDS: ACETAMINOPHEN TAB 650MG DOSE (2X325MG) PO PRN (08:18)
[2021-09-22] MEDS: CARVedilol 12.5 MG TAB PO SCH ×2 (08:18→20:57)
[2021-09-22] MEDS: LINEZOLID 600MG TABLET (ZYVOX) PO SCH ×2 (08:19→20:58)
[2021-09-22] MEDS: CLOPIDOGREL 75 MG TAB PO SCH (08:19)
[2021-09-22] MEDS: FERROUS GLUCONATE 324 MG TAB PO SCH ×2 (08:19→20:57)
[2021-09-22] MEDS: guaiFENesin ER 600 MG TAB PO SCH ×2 (08:19→20:57)
[2021-09-22] MEDS: CYCLOBENZAPRINE 10MG TABLET PO SCH (08:20)
[2021-09-22 10:03] LABS: BASO % 0.2 % (0.0-1.0); HEMATOCRIT 28.9 % (36.0-47.0); HEMOGLOBIN 9.5 g/dl (12.0-15.5); LYMPH # 0.9 10^3/uL (1.5-5.0); LYMPH % 13.6 % (24.0-44.0); MEAN CORPUSCULAR HEMOGLOBIN 28.1 pg (27.0-33.0); MEAN CORPUSCULAR HGB CONC 32.9 g/dl (32.0-36.5); MEAN CORPUSCULAR VOLUME 85.5 fl (80.0-96.0); MONO # 0.2 10^3/uL (0.0-0.8); MONO % 3.7 % (2.0-8.0); NEUTROPHILS # 5.1 10^3/uL (1.5-8.5); NEUTROPHILS % 82.2 % (36.0-66.0); RED BLOOD COUNT 3.38 10^6/uL (4.00-5.40); WHITE BLOOD COUNT 6.2 10^3/uL (4.0-10.0)
[2021-09-22 10:06] LABS: PLATELET COUNT, AUTOMATED 91 10^3/uL (150-450)
[2021-09-22 10:14] LABS: ALBUMIN 1.8 GM/DL (3.2-5.2); BILIRUBIN,TOTAL 0.4 MG/DL (0.2-1.0); CALCIUM LEVEL 8.1 MG/DL (8.8-10.2); CREATININE FOR GFR 2.82 MG/DL (0.55-1.30); GLOMERULAR FILTRATION RATE 17.7 (>45); MAGNESIUM LEVEL 1.9 MG/DL (1.8-2.4); POTASSIUM SERUM 3.4 MEQ/L (3.5-5.1); TOTAL PROTEIN 5.4 GM/DL (6.4-8.2)
[2021-09-22 12:00] VITALS: BP 159/68
[2021-09-22 14:00] VITALS: BP 95/58
[2021-09-22] MEDS ORDERED: POTASSIUM CHLORIDE 10MEQ SR TABLET PO ONE (14:00)
[2021-09-22] MEDS: RIVAROXABAN 15 MG TAB (XARELTO) PO SCH ×2 (17:16→18:59)
[2021-09-22 20:56] VITALS: BP 139/82
[2021-09-22] MEDS: rOPINIRole 2MG TAB PO SCH (20:57)
[2021-09-22] MEDS: ATORVASTATIN 20 MG TAB PO SCH (20:57)
[2021-09-22] MEDS: MULTIVITAMINS/MINERALS THERAP 1 TAB PO SCH (20:58)
[2021-09-22] MEDS: LEVEMIR (INSULIN DETEMIR) 1 UNITS/0.01ML SC SCH (20:58)
[2021-09-23] MEDS: SUCRALFATE SUSP 1GM/10ML UD PO SCH ×4 (00:21→18:25)
[2021-09-23 04:30] VITALS: BP 134/61
[2021-09-23] MEDS: **hydrALAZINE** 50 MG TAB PO SCH ×3 (05:25→21:30)
[2021-09-23] MEDS: HumaLOG INSULIN (NovoLOG) PER UNIT SC SCH ×4 (08:12→20:57)
[2021-09-23] MEDS: FERROUS GLUCONATE 324 MG TAB PO SCH ×2 (08:13→21:29)
[2021-09-23] MEDS: CARVedilol 12.5 MG TAB PO SCH ×2 (08:13→21:29)
[2021-09-23] MEDS: CALCITRIOL 0.25 MCG CAP (S0169) PO SCH (08:14)
[2021-09-23] MEDS: guaiFENesin ER 600 MG TAB PO SCH ×2 (08:14→21:29)
[2021-09-23] MEDS: PANTOPRAZOLE 40MG VIAL (C9113 PER 1) IV SCH (08:15)
[2021-09-23] MEDS: CLOPIDOGREL 75 MG TAB PO SCH (08:15)
[2021-09-23] MEDS: rOPINIRole 2MG TAB PO SCH ×2 (08:15→21:27)
[2021-09-23] MEDS: LINEZOLID 600MG TABLET (ZYVOX) PO SCH ×2 (08:15→21:26)
[2021-09-23] MEDS: CYCLOBENZAPRINE 10MG TABLET PO SCH (09:00)
[2021-09-23 09:47] LABS: ALBUMIN 1.9 GM/DL (3.2-5.2); BILIRUBIN,TOTAL 0.6 MG/DL (0.2-1.0); CALCIUM LEVEL 8.4 MG/DL (8.8-10.2); CREATININE FOR GFR 2.92 MG/DL (0.55-1.30); MAGNESIUM LEVEL 2.1 MG/DL (1.8-2.4); POTASSIUM SERUM 4.7 MEQ/L (3.5-5.1); TOTAL PROTEIN 6.1 GM/DL (6.4-8.2)
[2021-09-23 12:08] LABS: HEMATOCRIT 29.7 % (36.0-47.0); HEMOGLOBIN 9.8 g/dl (12.0-15.5); LYMPH % 15.8 % (24.0-44.0); MEAN CORPUSCULAR HEMOGLOBIN 28.7 pg (27.0-33.0); MEAN CORPUSCULAR VOLUME 86.8 fl (80.0-96.0); MONO # 0.3 10^3/uL (0.0-0.8); MONO % 4.1 % (2.0-8.0); NEUTROPHILS # 5.2 10^3/uL (1.5-8.5); NEUTROPHILS % 79.6 % (36.0-66.0); RED BLOOD COUNT 3.42 10^6/uL (4.00-5.40); WHITE BLOOD COUNT 6.5 10^3/uL (4.0-10.0)
[2021-09-23 12:09] LABS: PLATELET COUNT, AUTOMATED 89 10^3/uL (150-450)
[2021-09-23 14:00] VITALS: BP 103/55
[2021-09-23] MEDS: RIVAROXABAN 15 MG TAB (XARELTO) PO SCH (18:25)
[2021-09-23 20:00] VITALS: BP 122/63
[2021-09-23] MEDS: MULTIVITAMINS/MINERALS THERAP 1 TAB PO SCH (21:26)
[2021-09-23] MEDS: PANTOPRAZOLE 40MG TAB (PROTONIX) PO SCH (21:29)
[2021-09-23] MEDS: ATORVASTATIN 20 MG TAB PO SCH (21:29)
[2021-09-23] MEDS: LEVEMIR (INSULIN DETEMIR) 1 UNITS/0.01ML SC SCH (21:30)
[2021-09-23] MEDS: ACETAMINOPHEN TAB 650MG DOSE (2X325MG) PO PRN (21:31)
[2021-09-24] MEDS: SUCRALFATE SUSP 1GM/10ML UD PO SCH ×4 (00:22→17:50)
[2021-09-24 04:49] VITALS: BP 114/57
[2021-09-24] MEDS: **hydrALAZINE** 50 MG TAB PO SCH ×3 (05:50→22:00)
[2021-09-24] MEDS: HumaLOG INSULIN (NovoLOG) PER UNIT SC SCH ×4 (07:30→21:00)
[2021-09-24 07:58] LABS: BASO % 0.1 % (0.0-1.0); EOS % 0.1 % (0.0-3.0); HEMATOCRIT 27.2 % (36.0-47.0); LYMPH # 1.2 10^3/uL (1.5-5.0); LYMPH % 17.3 % (24.0-44.0); MEAN CORPUSCULAR HEMOGLOBIN 28.3 pg (27.0-33.0); MEAN CORPUSCULAR HGB CONC 33.1 g/dl (32.0-36.5); MEAN CORPUSCULAR VOLUME 85.5 fl (80.0-96.0); MONO # 0.2 10^3/uL (0.0-0.8); MONO % 3.4 % (2.0-8.0); NEUTROPHILS # 5.6 10^3/uL (1.5-8.5); NEUTROPHILS % 78.4 % (36.0-66.0); PLATELET COUNT, AUTOMATED 87 10^3/uL (150-450); RED BLOOD COUNT 3.18 10^6/uL (4.00-5.40); WHITE BLOOD COUNT 7.1 10^3/uL (4.0-10.0)
[2021-09-24] MEDS: rOPINIRole 2MG TAB PO SCH ×2 (08:30→21:07)
[2021-09-24 08:32] VITALS: BP 127/60
[2021-09-24] MEDS: PERCOCET 5MG/325MG TAB PO PRN (08:32)
[2021-09-24] MEDS: CLOPIDOGREL 75 MG TAB PO SCH (08:32)
[2021-09-24] MEDS: PANTOPRAZOLE 40MG TAB (PROTONIX) PO SCH ×2 (08:33→21:07)
[2021-09-24] MEDS: CYCLOBENZAPRINE 10MG TABLET PO SCH (08:33)
[2021-09-24] MEDS: guaiFENesin ER 600 MG TAB PO SCH ×2 (08:33→21:07)
[2021-09-24] MEDS: CARVedilol 12.5 MG TAB PO SCH ×2 (08:34→21:07)
[2021-09-24] MEDS: FERROUS GLUCONATE 324 MG TAB PO SCH ×2 (08:34→21:07)
[2021-09-24 08:38] LABS: ALBUMIN 1.7 GM/DL (3.2-5.2); BILIRUBIN,TOTAL 0.4 MG/DL (0.2-1.0); CREATININE FOR GFR 2.87 MG/DL (0.55-1.30); GLOMERULAR FILTRATION RATE 17.4 (>45); MAGNESIUM LEVEL 2.1 MG/DL (1.8-2.4); POTASSIUM SERUM 3.2 MEQ/L (3.5-5.1); TOTAL PROTEIN 5.2 GM/DL (6.4-8.2)
[2021-09-24 14:00] VITALS: BP 117/55
[2021-09-24] MEDS: RIVAROXABAN 15 MG TAB (XARELTO) PO SCH (17:50)
[2021-09-24 20:00] VITALS: BP 143/67
[2021-09-24] MEDS: ATORVASTATIN 20 MG TAB PO SCH (21:07)
[2021-09-24] MEDS: MULTIVITAMINS/MINERALS THERAP 1 TAB PO SCH (21:07)
[2021-09-24] MEDS: LEVEMIR (INSULIN DETEMIR) 1 UNITS/0.01ML SC SCH (21:07)
[2021-09-25] MEDS: SUCRALFATE SUSP 1GM/10ML UD PO SCH ×5 (00:36→23:44)
[2021-09-25 04:00] VITALS: BP 142/86
[2021-09-25] MEDS: **hydrALAZINE** 50 MG TAB PO SCH ×3 (06:32→21:00)
[2021-09-25] MEDS: HumaLOG INSULIN (NovoLOG) PER UNIT SC SCH ×4 (07:30→20:57)
[2021-09-25 08:02] LABS: HEMATOCRIT 27.1 % (36.0-47.0); MEAN CORPUSCULAR HEMOGLOBIN 28.2 pg (27.0-33.0); MEAN CORPUSCULAR HGB CONC 33.2 g/dl (32.0-36.5); RED BLOOD COUNT 3.19 10^6/uL (4.00-5.40); WHITE BLOOD COUNT 8.1 10^3/uL (4.0-10.0)
[2021-09-25 08:08] LABS: PLATELET COUNT, AUTOMATED 83 10^3/uL (150-450)
[2021-09-25 08:28] LABS: ALBUMIN 1.7 GM/DL (3.2-5.2); BILIRUBIN,TOTAL 0.3 MG/DL (0.2-1.0); CREATININE FOR GFR 3.13 MG/DL (0.55-1.30); GLOMERULAR FILTRATION RATE 15.7 (>45); MAGNESIUM LEVEL 2.3 MG/DL (1.8-2.4); POTASSIUM SERUM 3.6 MEQ/L (3.5-5.1); TOTAL PROTEIN 5.5 GM/DL (6.4-8.2)
[2021-09-25] MEDS: guaiFENesin ER 600 MG TAB PO SCH ×2 (09:15→20:59)
[2021-09-25] MEDS: FERROUS GLUCONATE 324 MG TAB PO SCH ×2 (09:15→20:59)
[2021-09-25] MEDS: PANTOPRAZOLE 40MG TAB (PROTONIX) PO SCH ×2 (09:16→21:00)
[2021-09-25] MEDS: CALCITRIOL 0.25 MCG CAP (S0169) PO SCH (09:16)
[2021-09-25] MEDS: rOPINIRole 2MG TAB PO SCH ×2 (09:17→20:57)
[2021-09-25] MEDS: CARVedilol 12.5 MG TAB PO SCH ×2 (09:20→20:59)
[2021-09-25] MEDS: CYCLOBENZAPRINE 10MG TABLET PO SCH (09:21)
[2021-09-25] MEDS: CLOPIDOGREL 75 MG TAB PO SCH (09:21)
[2021-09-25 14:00] VITALS: BP 137/66
[2021-09-25 17:39] LABS: ERYTHROCYTE SEDIMENTATION RATE 107 mm/hr (0-30)
[2021-09-25] MEDS ORDERED: VANCOMYCIN HCL 750 MG, VIAL MATE ADAPTER 1 EACH in NS 250 ML IV SCH (17:45)
[2021-09-25] MEDS: dexameTHASONE 4 MG/ML 1ML VIAL (J1100 PER 1MG) IV SCH (17:49)
[2021-09-25] MEDS: RIVAROXABAN 15 MG TAB (XARELTO) PO SCH (17:50)
[2021-09-25 17:58] LABS: C REACTIVE PROTEIN QUANTITATIV 7.97 MG/DL (0.00-0.30)
[2021-09-25] MEDS ORDERED: REMDESIVIR 200 MG in NS 250 ML IV ONE (18:00)
[2021-09-25] MEDS ORDERED: VANCOMYCIN INTERMITTENT/PULSE DOSING BY CLINICAL PHARMACIST PER DOSING PROTOCOL XX SCH (18:20)
[2021-09-25 20:00] VITALS: BP 124/59
[2021-09-25] MEDS ORDERED: SODIUM CHLORIDE 0.9% INJ 10 ML SYR IV ONE (20:00)
[2021-09-25] MEDS: ATORVASTATIN 20 MG TAB PO SCH (20:57)
[2021-09-25] MEDS: LEVEMIR (INSULIN DETEMIR) 1 UNITS/0.01ML SC SCH (20:58)
[2021-09-25] MEDS ORDERED: LevoFLOXacin IV 250 MG in IV 1 EA IV SCH (21:00)
[2021-09-25] MEDS: MULTIVITAMINS/MINERALS THERAP 1 TAB PO SCH (21:00)
[2021-09-25] MEDS ORDERED: VANCOMYCIN HCL 750 MG, VIAL MATE ADAPTER 1 EACH in NS 250 ML IV ONE ×2 (22:00→23:00)
[2021-09-26 04:00] VITALS: BP 108/56
[2021-09-26] MEDS: **hydrALAZINE** 50 MG TAB PO SCH ×3 (06:00→22:00)
[2021-09-26] MEDS: SUCRALFATE SUSP 1GM/10ML UD PO SCH ×4 (06:19→23:17)
[2021-09-26 06:50] LABS: HEMATOCRIT 27.9 % (36.0-47.0); HEMOGLOBIN 9.2 g/dl (12.0-15.5); MEAN CORPUSCULAR HEMOGLOBIN 28.5 pg (27.0-33.0); MEAN CORPUSCULAR VOLUME 86.4 fl (80.0-96.0); PLATELET COUNT, AUTOMATED 76 10^3/uL (150-450); RED BLOOD COUNT 3.23 10^6/uL (4.00-5.40)
[2021-09-26 07:22] LABS: ALBUMIN 1.7 GM/DL (3.2-5.2); BILIRUBIN,TOTAL 0.3 MG/DL (0.2-1.0); CALCIUM LEVEL 8.1 MG/DL (8.8-10.2); CREATININE FOR GFR 3.17 MG/DL (0.55-1.30); GLOMERULAR FILTRATION RATE 15.5 (>45); MAGNESIUM LEVEL 2.4 MG/DL (1.8-2.4); PERCENT SATURATION 11.7 % (13.2-45.0); PHOSPHORUS LEVEL 4.2 MG/DL (2.5-4.9); POTASSIUM SERUM 3.8 MEQ/L (3.5-5.1); TOTAL PROTEIN 5.6 GM/DL (6.4-8.2); VANCOMYCIN RANDOM 11.6 UG/ML
[2021-09-26] MEDS: HumaLOG INSULIN (NovoLOG) PER UNIT SC SCH ×4 (08:45→21:00)
[2021-09-26] MEDS: guaiFENesin ER 600 MG TAB PO SCH ×2 (08:46→21:22)
[2021-09-26] MEDS: FERROUS GLUCONATE 324 MG TAB PO SCH ×2 (08:46→21:22)
[2021-09-26] MEDS: CYCLOBENZAPRINE 10MG TABLET PO SCH (08:46)
[2021-09-26] MEDS: CARVedilol 12.5 MG TAB PO SCH ×2 (08:46→21:23)
[2021-09-26] MEDS: rOPINIRole 2MG TAB PO SCH ×2 (08:47→21:46)
[2021-09-26] MEDS: dexameTHASONE 4 MG/ML 1ML VIAL (J1100 PER 1MG) IV SCH (08:47)
[2021-09-26] MEDS: PANTOPRAZOLE 40MG TAB (PROTONIX) PO SCH ×2 (08:47→21:46)
[2021-09-26] MEDS: CLOPIDOGREL 75 MG TAB PO SCH (08:47)
[2021-09-26] MEDS ORDERED: VANCOMYCIN HCL 500 MG in D5W MINI-BAG PLUS 100 ML IV ONE (09:00)
[2021-09-26 13:39] VITALS: BP 131/65
[2021-09-26 13:47] VITALS: BP 100/52
[2021-09-26] MEDS: IRON SUCROSE 250 MG in NS 250 ML IV SCH (16:51)
[2021-09-26] MEDS: RIVAROXABAN 15 MG TAB (XARELTO) PO SCH (16:51)
[2021-09-26] MEDS: REMDESIVIR 100 MG in NS 250 ML IV SCH (17:31)
[2021-09-26] MEDS: SODIUM CHLORIDE 0.9% INJ 10 ML SYR IV SCH (17:31)
[2021-09-26 20:00] VITALS: BP 125/55
[2021-09-26] MEDS: ATORVASTATIN 20 MG TAB PO SCH (21:22)
[2021-09-26] MEDS: LEVEMIR (INSULIN DETEMIR) 1 UNITS/0.01ML SC SCH (21:23)
[2021-09-26] MEDS: MULTIVITAMINS/MINERALS THERAP 1 TAB PO SCH (21:46)
[2021-09-26] MEDS: LevoFLOXacin IV 500 MG in IV 1 EA IV SCH (21:47)
[2021-09-26] MEDS: SODIUM BICARBONATE 325 MG TAB PO SCH (21:47)
[2021-09-27 04:00] VITALS: BP 107/51
[2021-09-27] MEDS: **hydrALAZINE** 50 MG TAB PO SCH (05:39)
[2021-09-27] MEDS: SUCRALFATE SUSP 1GM/10ML UD PO SCH ×3 (05:39→17:41)
[2021-09-27 08:07] LABS: HEMATOCRIT 28.2 % (36.0-47.0); HEMOGLOBIN 9.5 g/dl (12.0-15.5); MEAN CORPUSCULAR HEMOGLOBIN 28.5 pg (27.0-33.0); MEAN CORPUSCULAR HGB CONC 33.7 g/dl (32.0-36.5); MEAN CORPUSCULAR VOLUME 84.7 fl (80.0-96.0); RED BLOOD COUNT 3.33 10^6/uL (4.00-5.40); WHITE BLOOD COUNT 12.2 10^3/uL (4.0-10.0)
[2021-09-27 08:08] LABS: PLATELET COUNT, AUTOMATED 90 10^3/uL (150-450)
[2021-09-27 08:31] LABS: ALBUMIN 1.6 GM/DL (3.2-5.2); BILIRUBIN,TOTAL 0.4 MG/DL (0.2-1.0); CALCIUM LEVEL 7.9 MG/DL (8.8-10.2); CREATININE FOR GFR 3.11 MG/DL (0.55-1.30); GLOMERULAR FILTRATION RATE 15.8 (>45); MAGNESIUM LEVEL 2.5 MG/DL (1.8-2.4); POTASSIUM SERUM 3.5 MEQ/L (3.5-5.1); TOTAL PROTEIN 5.3 GM/DL (6.4-8.2)
[2021-09-27] MEDS: SODIUM BICARBONATE 325 MG TAB PO SCH ×2 (08:31→20:27)
[2021-09-27] MEDS: CARVedilol 12.5 MG TAB PO SCH ×2 (08:32→20:27)
[2021-09-27] MEDS: PANTOPRAZOLE 40MG TAB (PROTONIX) PO SCH ×2 (08:32→20:27)
[2021-09-27] MEDS: FERROUS GLUCONATE 324 MG TAB PO SCH ×2 (08:33→20:27)
[2021-09-27] MEDS: CYCLOBENZAPRINE 10MG TABLET PO SCH (08:34)
[2021-09-27] MEDS: CALCITRIOL 0.25 MCG CAP (S0169) PO SCH (08:34)
[2021-09-27] MEDS: CLOPIDOGREL 75 MG TAB PO SCH (08:34)
[2021-09-27] MEDS: guaiFENesin ER 600 MG TAB PO SCH ×2 (08:35→20:27)
[2021-09-27] MEDS: dexameTHASONE 4 MG/ML 1ML VIAL (J1100 PER 1MG) IV SCH ×2 (08:36→17:41)
[2021-09-27] MEDS ORDERED: IRON SUCROSE 100MG 5ML VIAL (J1756 PER 1MG) IV SCH (09:00)
[2021-09-27] MEDS: HumaLOG INSULIN (NovoLOG) PER UNIT SC SCH ×4 (09:31→20:28)
[2021-09-27] MEDS: DARBEPOETIN 100 MCG/0.5 ML *NON-DIALYSIS* SYRINGE (J0881) SC SCH (09:31)
[2021-09-27] MEDS: LEVEMIR (INSULIN DETEMIR) 1 UNITS/0.01ML SC SCH ×2 (09:32→20:28)
[2021-09-27] MEDS: rOPINIRole 2MG TAB PO SCH ×2 (12:10→20:27)
[2021-09-27 13:21] VITALS: BP 127/58
[2021-09-27] MEDS ORDERED: LIDOCAINE 1% MDV 20ML VIAL As Ordered ONE (13:34)
[2021-09-27] MEDS: **hydrALAZINE HCL** 25 MG TAB PO SCH ×2 (14:00→20:29)
[2021-09-27] MEDS ORDERED: NITROGLYCERIN 0.4 MG SUBL TABLET SL PRN (17:25)
[2021-09-27] MEDS: IRON SUCROSE 250 MG in NS 250 ML IV SCH (17:41)
[2021-09-27] MEDS: RIVAROXABAN 15 MG TAB (XARELTO) PO SCH (17:41)
[2021-09-27] MEDS: REMDESIVIR 100 MG in NS 250 ML IV SCH (17:42)
[2021-09-27] MEDS: SODIUM CHLORIDE 0.9% INJ 10 ML SYR IV SCH (18:39)
[2021-09-27] MEDS: ATORVASTATIN 20 MG TAB PO SCH (20:27)
[2021-09-27] MEDS: MULTIVITAMINS/MINERALS THERAP 1 TAB PO SCH (20:27)
[2021-09-27 22:00] VITALS: BP 139/62
[2021-09-28] VITALS: BP 128/68
[2021-09-28 04:00] VITALS: BP 119/73
[2021-09-28 04:59] LABS: HEMATOCRIT 24.8 % (36.0-47.0); HEMOGLOBIN 8.4 g/dl (12.0-15.5); MEAN CORPUSCULAR HEMOGLOBIN 28.1 pg (27.0-33.0); MEAN CORPUSCULAR HGB CONC 33.9 g/dl (32.0-36.5); MEAN CORPUSCULAR VOLUME 82.9 fl (80.0-96.0); PLATELET COUNT, AUTOMATED 104 10^3/uL (150-450); RED BLOOD COUNT 2.99 10^6/uL (4.00-5.40); WHITE BLOOD COUNT 11.7 10^3/uL (4.0-10.0)
[2021-09-28 05:22] LABS: ALBUMIN 1.8 GM/DL (3.2-5.2); BILIRUBIN,TOTAL 0.4 MG/DL (0.2-1.0); C REACTIVE PROTEIN QUANTITATIV 3.54 MG/DL (0.00-0.30); CALCIUM LEVEL 7.5 MG/DL (8.8-10.2); CREATININE FOR GFR 2.94 MG/DL (0.55-1.30); GLOMERULAR FILTRATION RATE 16.9 (>45); MAGNESIUM LEVEL 2.4 MG/DL (1.8-2.4); POTASSIUM SERUM 3.3 MEQ/L (3.5-5.1); TOTAL PROTEIN 4.9 GM/DL (6.4-8.2)
[2021-09-28 06:36] LABS: ERYTHROCYTE SEDIMENTATION RATE 129 mm/hr (0-30)
[2021-09-28] MEDS: **hydrALAZINE HCL** 25 MG TAB PO SCH ×3 (06:50→20:50)
[2021-09-28] MEDS: SUCRALFATE SUSP 1GM/10ML UD PO SCH ×4 (06:51→17:27)
[2021-09-28] MEDS: HumaLOG INSULIN (NovoLOG) PER UNIT SC SCH ×4 (07:30→21:11)
[2021-09-28] MEDS ORDERED: POTASSIUM CHLORIDE 10MEQ SR TABLET PO ONE (08:15)
[2021-09-28] MEDS: LEVEMIR (INSULIN DETEMIR) 1 UNITS/0.01ML SC SCH ×2 (08:56→21:11)
[2021-09-28] MEDS: PANTOPRAZOLE 40MG TAB (PROTONIX) PO SCH ×2 (08:56→21:10)
[2021-09-28] MEDS: FERROUS GLUCONATE 324 MG TAB PO SCH ×2 (08:56→21:09)
[2021-09-28] MEDS: SODIUM BICARBONATE 325 MG TAB PO SCH ×2 (08:57→21:09)
[2021-09-28] MEDS: CYCLOBENZAPRINE 10MG TABLET PO SCH (08:57)
[2021-09-28] MEDS: CLOPIDOGREL 75 MG TAB PO SCH (08:57)
[2021-09-28] MEDS: guaiFENesin ER 600 MG TAB PO SCH ×2 (08:57→21:09)
[2021-09-28] MEDS: rOPINIRole 2MG TAB PO SCH ×2 (08:57→21:09)
[2021-09-28] MEDS: TORSEMIDE 20 MG TAB PO SCH (08:58)
[2021-09-28] MEDS: CARVedilol 12.5 MG TAB PO SCH ×2 (09:01→21:12)
[2021-09-28] MEDS: dexameTHASONE 4 MG/ML 1ML VIAL (J1100 PER 1MG) IV SCH (12:26)
[2021-09-28 14:00] VITALS: BP 136/58
[2021-09-28] MEDS ORDERED: SODIUM CHLORIDE 0.9% INJ 10 ML SYR IV PRN (17:15)
[2021-09-28] MEDS: REMDESIVIR 100 MG in NS 250 ML IV SCH (17:27)
[2021-09-28] MEDS: IRON SUCROSE 250 MG in NS 250 ML IV SCH (17:27)
[2021-09-28] MEDS: RIVAROXABAN 15 MG TAB (XARELTO) PO SCH (17:27)
[2021-09-28] MEDS: SODIUM CHLORIDE 0.9% INJ 10 ML SYR IV SCH ×2 (17:46→18:36)
[2021-09-28 19:35] VITALS: BP 111/58
[2021-09-28] MEDS: LevoFLOXacin IV 500 MG in IV 1 EA IV SCH (21:08)
[2021-09-28] MEDS: MULTIVITAMINS/MINERALS THERAP 1 TAB PO SCH (21:09)
[2021-09-28] MEDS: ATORVASTATIN 20 MG TAB PO SCH (21:10)
[2021-09-29] MEDS: SUCRALFATE SUSP 1GM/10ML UD PO SCH ×4 (00:20→17:40)
[2021-09-29 03:50] VITALS: BP 139/60
[2021-09-29] MEDS: **hydrALAZINE HCL** 25 MG TAB PO SCH ×3 (05:13→21:02)
[2021-09-29] MEDS: SODIUM CHLORIDE 0.9% INJ 10 ML SYR IV SCH ×3 (05:14→21:03)
[2021-09-29 05:35] LABS: HEMATOCRIT 24.5 % (36.0-47.0); HEMOGLOBIN 8.3 g/dl (12.0-15.5); MEAN CORPUSCULAR HEMOGLOBIN 28.6 pg (27.0-33.0); MEAN CORPUSCULAR HGB CONC 33.9 g/dl (32.0-36.5); MEAN CORPUSCULAR VOLUME 84.5 fl (80.0-96.0); PLATELET COUNT, AUTOMATED 128 10^3/uL (150-450); WHITE BLOOD COUNT 11.7 10^3/uL (4.0-10.0)
[2021-09-29 05:56] LABS: ALBUMIN 1.8 GM/DL (3.2-5.2); BILIRUBIN,TOTAL 0.3 MG/DL (0.2-1.0); CREATININE FOR GFR 2.89 MG/DL (0.55-1.30); GLOMERULAR FILTRATION RATE 17.2 (>45); MAGNESIUM LEVEL 2.4 MG/DL (1.8-2.4); POTASSIUM SERUM 3.6 MEQ/L (3.5-5.1)
[2021-09-29] MEDS: rOPINIRole 2MG TAB PO SCH ×2 (07:44→21:01)
[2021-09-29] MEDS: guaiFENesin ER 600 MG TAB PO SCH ×2 (07:45→21:04)
[2021-09-29] MEDS: CALCITRIOL 0.25 MCG CAP (S0169) PO SCH (07:45)
[2021-09-29] MEDS: TORSEMIDE 20 MG TAB PO SCH (07:45)
[2021-09-29] MEDS: SODIUM BICARBONATE 325 MG TAB PO SCH ×2 (07:45→20:59)
[2021-09-29] MEDS: FERROUS GLUCONATE 324 MG TAB PO SCH ×2 (07:45→20:58)
[2021-09-29] MEDS: CLOPIDOGREL 75 MG TAB PO SCH (07:45)
[2021-09-29] MEDS: PANTOPRAZOLE 40MG TAB (PROTONIX) PO SCH ×2 (07:45→21:01)
[2021-09-29] MEDS: LEVEMIR (INSULIN DETEMIR) 1 UNITS/0.01ML SC SCH ×2 (07:46→20:59)
[2021-09-29] MEDS: CYCLOBENZAPRINE 10MG TABLET PO SCH (07:46)
[2021-09-29] MEDS: HumaLOG INSULIN (NovoLOG) PER UNIT SC SCH ×4 (07:47→21:00)
[2021-09-29] MEDS: dexameTHASONE 4 MG/ML 1ML VIAL (J1100 PER 1MG) IV SCH (07:47)
[2021-09-29] MEDS: CARVedilol 12.5 MG TAB PO SCH ×2 (07:50→21:01)
[2021-09-29 14:00] VITALS: BP 135/64
[2021-09-29] MEDS: RIVAROXABAN 15 MG TAB (XARELTO) PO SCH (17:40)
[2021-09-29] MEDS: REMDESIVIR 100 MG in NS 250 ML IV SCH (17:41)
[2021-09-29] MEDS: IRON SUCROSE 250 MG in NS 250 ML IV SCH (17:41)
[2021-09-29 20:00] VITALS: BP 138/70
[2021-09-29] MEDS: ATORVASTATIN 20 MG TAB PO SCH (21:00)
[2021-09-29] MEDS: MULTIVITAMINS/MINERALS THERAP 1 TAB PO SCH (21:01)
[2021-09-30 04:00] VITALS: BP 150/78
[2021-09-30] MEDS: **hydrALAZINE HCL** 25 MG TAB PO SCH ×3 (06:00→21:48)
[2021-09-30] MEDS: SUCRALFATE SUSP 1GM/10ML UD PO SCH ×5 (06:32→23:13)
[2021-09-30] MEDS: SODIUM CHLORIDE 0.9% INJ 10 ML SYR IV SCH ×2 (06:33→17:36)
[2021-09-30 07:27] LABS: HEMATOCRIT 26.3 % (36.0-47.0); HEMOGLOBIN 8.6 g/dl (12.0-15.5); MEAN CORPUSCULAR HEMOGLOBIN 28.3 pg (27.0-33.0); MEAN CORPUSCULAR HGB CONC 32.7 g/dl (32.0-36.5); MEAN CORPUSCULAR VOLUME 86.5 fl (80.0-96.0); PLATELET COUNT, AUTOMATED 170 10^3/uL (150-450); RED BLOOD COUNT 3.04 10^6/uL (4.00-5.40); WHITE BLOOD COUNT 12.8 10^3/uL (4.0-10.0)
[2021-09-30 07:54] LABS: ALBUMIN 1.9 GM/DL (3.2-5.2); BILIRUBIN,TOTAL 0.3 MG/DL (0.2-1.0); CALCIUM LEVEL 8.3 MG/DL (8.8-10.2); CREATININE FOR GFR 2.57 MG/DL (0.55-1.30); GLOMERULAR FILTRATION RATE 19.7 (>45); MAGNESIUM LEVEL 2.4 MG/DL (1.8-2.4); POTASSIUM SERUM 3.3 MEQ/L (3.5-5.1); TOTAL PROTEIN 5.2 GM/DL (6.4-8.2)
[2021-09-30] MEDS: rOPINIRole 2MG TAB PO SCH ×2 (09:24→21:43)
[2021-09-30] MEDS: SODIUM BICARBONATE 325 MG TAB PO SCH ×2 (09:24→21:43)
[2021-09-30] MEDS: HumaLOG INSULIN (NovoLOG) PER UNIT SC SCH ×4 (09:24→21:00)
[2021-09-30] MEDS: LEVEMIR (INSULIN DETEMIR) 1 UNITS/0.01ML SC SCH ×2 (09:24→21:45)
[2021-09-30] MEDS: CYCLOBENZAPRINE 10MG TABLET PO SCH (09:24)
[2021-09-30] MEDS: CLOPIDOGREL 75 MG TAB PO SCH (09:25)
[2021-09-30] MEDS: PANTOPRAZOLE 40MG TAB (PROTONIX) PO SCH ×2 (09:25→21:43)
[2021-09-30] MEDS: TORSEMIDE 20 MG TAB PO SCH (09:25)
[2021-09-30] MEDS: FERROUS GLUCONATE 324 MG TAB PO SCH ×2 (09:25→21:43)
[2021-09-30] MEDS: CARVedilol 12.5 MG TAB PO SCH ×2 (09:25→21:48)
[2021-09-30] MEDS: dexameTHASONE 4 MG/ML 1ML VIAL (J1100 PER 1MG) IV SCH (09:26)
[2021-09-30] MEDS: guaiFENesin ER 600 MG TAB PO SCH ×2 (09:26→21:43)
[2021-09-30 14:00] VITALS: BP 149/64
[2021-09-30] MEDS ORDERED: POTASSIUM CHLORIDE 10MEQ SR TABLET PO ONE (17:15)
[2021-09-30] MEDS: RIVAROXABAN 15 MG TAB (XARELTO) PO SCH (17:35)
[2021-09-30 20:00] VITALS: BP 134/67
[2021-09-30] MEDS: ATORVASTATIN 20 MG TAB PO SCH (21:43)
[2021-09-30] MEDS: MULTIVITAMINS/MINERALS THERAP 1 TAB PO SCH (21:43)
[2021-09-30] MEDS: LevoFLOXacin IV 500 MG in IV 1 EA IV SCH (21:45)
[2021-10-01] MEDS: SODIUM CHLORIDE NASAL 0.65% SPRAY BTL (OCEAN) PRN ×2 (01:14→21:29)
[2021-10-01] MEDS: hydrOXYzine 10 MG TAB PO PRN (01:14)
[2021-10-01] MEDS: SALIVA SUBSTITUTE(MOUTHKOTE) BTL MT PRN ×2 (01:14→21:30)
[2021-10-01] MEDS: POLYVINYL ALCOHOL OPHTH SOLN 15 ML(LIQUITEARS) OU PRN ×2 (01:14→21:30)
[2021-10-01 04:17] VITALS: BP 159/84
[2021-10-01] MEDS: SUCRALFATE SUSP 1GM/10ML UD PO SCH ×4 (05:29→23:58)
[2021-10-01] MEDS: **hydrALAZINE HCL** 25 MG TAB PO SCH ×3 (05:31→21:14)
[2021-10-01] MEDS: SODIUM CHLORIDE 0.9% INJ 10 ML SYR IV SCH ×2 (05:31→17:50)
[2021-10-01 06:01] LABS: HEMOGLOBIN 8.7 g/dl (12.0-15.5); MEAN CORPUSCULAR HEMOGLOBIN 28.9 pg (27.0-33.0); MEAN CORPUSCULAR HGB CONC 33.5 g/dl (32.0-36.5); MEAN CORPUSCULAR VOLUME 86.4 fl (80.0-96.0); PLATELET COUNT, AUTOMATED 184 10^3/uL (150-450); RED BLOOD COUNT 3.01 10^6/uL (4.00-5.40); WHITE BLOOD COUNT 13.7 10^3/uL (4.0-10.0)
[2021-10-01 06:26] LABS: ALBUMIN 1.8 GM/DL (3.2-5.2); BILIRUBIN,TOTAL 0.4 MG/DL (0.2-1.0); CREATININE FOR GFR 2.23 MG/DL (0.55-1.30); GLOMERULAR FILTRATION RATE 23.3 (>45); MAGNESIUM LEVEL 2.2 MG/DL (1.8-2.4); POTASSIUM SERUM 3.4 MEQ/L (3.5-5.1); TOTAL PROTEIN 5.1 GM/DL (6.4-8.2)
[2021-10-01] MEDS: HumaLOG INSULIN (NovoLOG) PER UNIT SC SCH ×4 (07:04→21:21)
[2021-10-01] MEDS ORDERED: POTASSIUM CHLORIDE 10MEQ SR TABLET PO ONE ×2 (08:00→10:35)
[2021-10-01] MEDS: LEVEMIR (INSULIN DETEMIR) 1 UNITS/0.01ML SC SCH ×2 (09:00→21:11)
[2021-10-01] MEDS ORDERED: TORSEMIDE 100 MG TAB PO SCH (09:00)
[2021-10-01] MEDS: SODIUM BICARBONATE 325 MG TAB PO SCH ×2 (10:10→21:10)
[2021-10-01] MEDS: guaiFENesin ER 600 MG TAB PO SCH ×2 (10:10→21:09)
[2021-10-01] MEDS: rOPINIRole 2MG TAB PO SCH ×2 (10:10→21:09)
[2021-10-01] MEDS: CLOPIDOGREL 75 MG TAB PO SCH (10:11)
[2021-10-01] MEDS: CALCITRIOL 0.25 MCG CAP (S0169) PO SCH (10:11)
[2021-10-01] MEDS: CYCLOBENZAPRINE 10MG TABLET PO SCH (10:11)
[2021-10-01] MEDS: PANTOPRAZOLE 40MG TAB (PROTONIX) PO SCH ×2 (10:11→21:09)
[2021-10-01] MEDS: FERROUS GLUCONATE 324 MG TAB PO SCH ×2 (10:12→21:10)
[2021-10-01] MEDS: dexameTHASONE 4 MG/ML 1ML VIAL (J1100 PER 1MG) IV SCH (10:12)
[2021-10-01] MEDS: CARVedilol 12.5 MG TAB PO SCH ×2 (10:14→21:15)
[2021-10-01 14:00] VITALS: BP 156/74
[2021-10-01] MEDS: TORSEMIDE 100 MG TAB PO SCH (17:49)
[2021-10-01] MEDS: RIVAROXABAN 15 MG TAB (XARELTO) PO SCH (17:49)
[2021-10-01] MEDS ORDERED: POTASSIUM CHLORIDE 10MEQ SR TABLET PO SCH (21:00)
[2021-10-01] MEDS: MULTIVITAMINS/MINERALS THERAP 1 TAB PO SCH (21:10)
[2021-10-01] MEDS: ATORVASTATIN 20 MG TAB PO SCH (21:10)
[2021-10-01 22:00] VITALS: BP 140/67
[2021-10-01] MEDS: ACETAMINOPHEN TAB 650MG DOSE (2X325MG) PO PRN (23:58)
[2021-10-02] MEDS: PERCOCET 5MG/325MG TAB PO PRN (01:42)
[2021-10-02 04:16] VITALS: BP 158/78
[2021-10-02] MEDS: SODIUM CHLORIDE 0.9% INJ 10 ML SYR IV SCH ×2 (05:02→18:28)
[2021-10-02] MEDS: **hydrALAZINE HCL** 25 MG TAB PO SCH ×3 (05:04→21:04)
[2021-10-02] MEDS: ACETAMINOPHEN TAB 650MG DOSE (2X325MG) PO PRN (05:05)
[2021-10-02] MEDS: SUCRALFATE SUSP 1GM/10ML UD PO SCH ×3 (05:06→18:27)
[2021-10-02 05:13] LABS: HEMATOCRIT 25.7 % (36.0-47.0); HEMOGLOBIN 8.5 g/dl (12.0-15.5); MEAN CORPUSCULAR HGB CONC 33.1 g/dl (32.0-36.5); MEAN CORPUSCULAR VOLUME 87.7 fl (80.0-96.0); PLATELET COUNT, AUTOMATED 201 10^3/uL (150-450); RED BLOOD COUNT 2.93 10^6/uL (4.00-5.40); WHITE BLOOD COUNT 11.1 10^3/uL (4.0-10.0)
[2021-10-02 05:48] LABS: ALBUMIN 1.8 GM/DL (3.2-5.2); BILIRUBIN,TOTAL 0.5 MG/DL (0.2-1.0); CALCIUM LEVEL 7.8 MG/DL (8.8-10.2); CREATININE FOR GFR 2.25 MG/DL (0.55-1.30); POTASSIUM SERUM 4.4 MEQ/L (3.5-5.1); TOTAL PROTEIN 4.7 GM/DL (6.4-8.2)
[2021-10-02] MEDS: guaiFENesin ER 600 MG TAB PO SCH ×2 (08:52→21:02)
[2021-10-02] MEDS: CARVedilol 12.5 MG TAB PO SCH ×2 (08:52→21:04)
[2021-10-02] MEDS: POTASSIUM CHLORIDE 10MEQ SR TABLET PO SCH ×2 (08:52→21:03)
[2021-10-02] MEDS: predniSONE 20 MG TAB PO SCH (08:52)
[2021-10-02] MEDS: FERROUS GLUCONATE 324 MG TAB PO SCH ×2 (08:52→21:02)
[2021-10-02] MEDS: SODIUM BICARBONATE 325 MG TAB PO SCH ×2 (08:53→21:03)
[2021-10-02] MEDS: CYCLOBENZAPRINE 10MG TABLET PO SCH (08:53)
[2021-10-02] MEDS: CLOPIDOGREL 75 MG TAB PO SCH (08:53)
[2021-10-02] MEDS: rOPINIRole 2MG TAB PO SCH ×2 (08:53→21:02)
[2021-10-02] MEDS: HumaLOG INSULIN (NovoLOG) PER UNIT SC SCH ×4 (08:53→21:05)
[2021-10-02] MEDS: PANTOPRAZOLE 40MG TAB (PROTONIX) PO SCH ×2 (08:53→21:02)
[2021-10-02] MEDS: LEVEMIR (INSULIN DETEMIR) 1 UNITS/0.01ML SC SCH ×2 (08:54→21:05)
[2021-10-02] MEDS: TORSEMIDE 100 MG TAB PO SCH ×2 (08:55→18:27)
[2021-10-02 13:34] VITALS: BP 161/67
[2021-10-02 13:36] VITALS: BP 161/72
[2021-10-02] MEDS: RIVAROXABAN 15 MG TAB (XARELTO) PO SCH (18:27)
[2021-10-02 19:52] VITALS: BP 150/68
[2021-10-02] MEDS ORDERED: LevoFLOXacin 500 MG TABLET PO ONE (21:00)
[2021-10-02] MEDS: MULTIVITAMINS/MINERALS THERAP 1 TAB PO SCH (21:02)
[2021-10-02] MEDS: ATORVASTATIN 20 MG TAB PO SCH (21:03)
[2021-10-02] MEDS: hydrOXYzine 10 MG TAB PO PRN (21:03)
[2021-10-03] MEDS: SUCRALFATE SUSP 1GM/10ML UD PO SCH ×5 (00:31→23:51)
[2021-10-03] MEDS: **hydrALAZINE HCL** 25 MG TAB PO SCH ×3 (05:44→21:21)
[2021-10-03] MEDS: SODIUM CHLORIDE 0.9% INJ 10 ML SYR IV SCH ×2 (05:45→18:53)
[2021-10-03 06:00] VITALS: BP 124/59
[2021-10-03 06:15] LABS: HEMATOCRIT 27.7 % (36.0-47.0); MEAN CORPUSCULAR HEMOGLOBIN 29.6 pg (27.0-33.0); MEAN CORPUSCULAR HGB CONC 32.5 g/dl (32.0-36.5); MEAN CORPUSCULAR VOLUME 91.1 fl (80.0-96.0); PLATELET COUNT, AUTOMATED 216 10^3/uL (150-450); RED BLOOD COUNT 3.04 10^6/uL (4.00-5.40); WHITE BLOOD COUNT 13.8 10^3/uL (4.0-10.0)
[2021-10-03 06:42] LABS: BILIRUBIN,TOTAL 0.5 MG/DL (0.2-1.0); CREATININE FOR GFR 2.39 MG/DL (0.55-1.30); GLOMERULAR FILTRATION RATE 21.5 (>45); POTASSIUM SERUM 4.1 MEQ/L (3.5-5.1)
[2021-10-03] MEDS: HumaLOG INSULIN (NovoLOG) PER UNIT SC SCH ×4 (08:58→21:20)
[2021-10-03] MEDS: LEVEMIR (INSULIN DETEMIR) 1 UNITS/0.01ML SC SCH ×2 (08:58→21:20)
[2021-10-03] MEDS: predniSONE 20 MG TAB PO SCH (08:59)
[2021-10-03] MEDS: CARVedilol 12.5 MG TAB PO SCH ×2 (09:00→21:21)
[2021-10-03] MEDS: SODIUM BICARBONATE 325 MG TAB PO SCH ×2 (09:00→21:22)
[2021-10-03] MEDS: CLOPIDOGREL 75 MG TAB PO SCH (09:00)
[2021-10-03] MEDS: CYCLOBENZAPRINE 10MG TABLET PO SCH (09:00)
[2021-10-03] MEDS: rOPINIRole 2MG TAB PO SCH ×2 (09:00→21:22)
[2021-10-03] MEDS: guaiFENesin ER 600 MG TAB PO SCH ×2 (09:00→21:20)
[2021-10-03] MEDS: PANTOPRAZOLE 40MG TAB (PROTONIX) PO SCH ×2 (09:00→21:22)
[2021-10-03] MEDS: CALCITRIOL 0.25 MCG CAP (S0169) PO SCH (09:00)
[2021-10-03] MEDS: FERROUS GLUCONATE 324 MG TAB PO SCH ×2 (09:00→21:20)
[2021-10-03] MEDS: TORSEMIDE 100 MG TAB PO SCH ×2 (09:01→18:52)
[2021-10-03] MEDS: POTASSIUM CHLORIDE 10MEQ SR TABLET PO SCH ×2 (09:01→21:21)
[2021-10-03 13:45] VITALS: BP 136/60
[2021-10-03] MEDS: RIVAROXABAN 15 MG TAB (XARELTO) PO SCH (18:52)
[2021-10-03] MEDS: CEPACOL LOZENGE PO PRN (18:56)
[2021-10-03 20:00] VITALS: BP 141/85
[2021-10-03] MEDS: MULTIVITAMINS/MINERALS THERAP 1 TAB PO SCH (21:20)
[2021-10-03] MEDS: ATORVASTATIN 20 MG TAB PO SCH (21:22)
[2021-10-04 04:00] VITALS: BP 147/65
[2021-10-04] MEDS: **hydrALAZINE HCL** 25 MG TAB PO SCH ×3 (05:04→20:30)
[2021-10-04] MEDS: SUCRALFATE SUSP 1GM/10ML UD PO SCH ×3 (05:04→18:19)
[2021-10-04] MEDS: SODIUM CHLORIDE 0.9% INJ 10 ML SYR IV SCH ×2 (05:05→18:20)
[2021-10-04 05:19] LABS: HEMATOCRIT 27.3 % (36.0-47.0); HEMOGLOBIN 8.7 g/dl (12.0-15.5); MEAN CORPUSCULAR HEMOGLOBIN 29.3 pg (27.0-33.0); MEAN CORPUSCULAR HGB CONC 31.9 g/dl (32.0-36.5); MEAN CORPUSCULAR VOLUME 91.9 fl (80.0-96.0); PLATELET COUNT, AUTOMATED 201 10^3/uL (150-450); RED BLOOD COUNT 2.97 10^6/uL (4.00-5.40); WHITE BLOOD COUNT 13.2 10^3/uL (4.0-10.0)
[2021-10-04 05:47] LABS: ALBUMIN 1.9 GM/DL (3.2-5.2); BILIRUBIN,TOTAL 0.4 MG/DL (0.2-1.0); CALCIUM LEVEL 8.5 MG/DL (8.8-10.2); CREATININE FOR GFR 2.58 MG/DL (0.55-1.30); GLOMERULAR FILTRATION RATE 19.7 (>45); TOTAL PROTEIN 5.2 GM/DL (6.4-8.2)
[2021-10-04] MEDS: CEPACOL LOZENGE PO PRN (06:25)
[2021-10-04] MEDS: LEVEMIR (INSULIN DETEMIR) 1 UNITS/0.01ML SC SCH ×2 (09:21→20:27)
[2021-10-04] MEDS: HumaLOG INSULIN (NovoLOG) PER UNIT SC SCH ×4 (09:21→20:27)
[2021-10-04] MEDS: SODIUM BICARBONATE 325 MG TAB PO SCH ×2 (09:22→20:34)
[2021-10-04] MEDS: TORSEMIDE 100 MG TAB PO SCH ×2 (09:22→18:19)
[2021-10-04] MEDS: rOPINIRole 2MG TAB PO SCH ×2 (09:22→20:28)
[2021-10-04] MEDS: CLOPIDOGREL 75 MG TAB PO SCH (09:22)
[2021-10-04] MEDS: predniSONE 20 MG TAB PO SCH (09:22)
[2021-10-04] MEDS: FERROUS GLUCONATE 324 MG TAB PO SCH ×2 (09:22→20:29)
[2021-10-04] MEDS: POTASSIUM CHLORIDE 10MEQ SR TABLET PO SCH ×2 (09:22→20:29)
[2021-10-04] MEDS: CYCLOBENZAPRINE 10MG TABLET PO SCH (09:23)
[2021-10-04] MEDS: CARVedilol 12.5 MG TAB PO SCH ×2 (09:23→20:29)
[2021-10-04] MEDS: guaiFENesin ER 600 MG TAB PO SCH ×2 (09:23→20:29)
[2021-10-04] MEDS: PANTOPRAZOLE 40MG TAB (PROTONIX) PO SCH ×2 (09:23→20:28)
[2021-10-04] MEDS: DARBEPOETIN 100 MCG/0.5 ML *NON-DIALYSIS* SYRINGE (J0881) SC SCH (09:26)
[2021-10-04] MEDS ORDERED: SODIUM CHLORIDE NASAL 0.65% SPRAY BTL (OCEAN) PRN (09:50)
[2021-10-04] MEDS: ADVAIR HFA 115/21MCG INHALER INH SCH ×2 (10:46→20:31)
[2021-10-04 14:00] VITALS: BP 152/55
[2021-10-04] MEDS: RIVAROXABAN 15 MG TAB (XARELTO) PO SCH (18:19)
[2021-10-04 19:36] VITALS: BP 165/68
[2021-10-04] MEDS: MULTIVITAMINS/MINERALS THERAP 1 TAB PO SCH (20:28)
[2021-10-04] MEDS: ATORVASTATIN 20 MG TAB PO SCH (20:28)
[2021-10-04] MEDS: LevoFLOXacin 500 MG TABLET PO SCH (20:28)
[2021-10-05] MEDS: SUCRALFATE SUSP 1GM/10ML UD PO SCH ×4 (00:07→18:12)
[2021-10-05 04:20] VITALS: BP 135/63
[2021-10-05] MEDS: **hydrALAZINE HCL** 25 MG TAB PO SCH ×3 (05:18→22:53)
[2021-10-05] MEDS: SODIUM CHLORIDE 0.9% INJ 10 ML SYR IV SCH ×2 (05:19→18:13)
[2021-10-05 05:53] LABS: HEMATOCRIT 28.8 % (36.0-47.0); HEMOGLOBIN 9.2 g/dl (12.0-15.5); MEAN CORPUSCULAR HEMOGLOBIN 29.1 pg (27.0-33.0); MEAN CORPUSCULAR HGB CONC 31.9 g/dl (32.0-36.5); MEAN CORPUSCULAR VOLUME 91.1 fl (80.0-96.0); PLATELET COUNT, AUTOMATED 222 10^3/uL (150-450); RED BLOOD COUNT 3.16 10^6/uL (4.00-5.40); WHITE BLOOD COUNT 15.5 10^3/uL (4.0-10.0)
[2021-10-05 06:12] LABS: ALBUMIN 2.2 GM/DL (3.2-5.2); BILIRUBIN,TOTAL 0.3 MG/DL (0.2-1.0); CALCIUM LEVEL 8.2 MG/DL (8.8-10.2); CREATININE FOR GFR 2.47 MG/DL (0.55-1.30); GLOMERULAR FILTRATION RATE 20.7 (>45); POTASSIUM SERUM 3.7 MEQ/L (3.5-5.1); TOTAL PROTEIN 5.1 GM/DL (6.4-8.2)
[2021-10-05] MEDS: ADVAIR HFA 115/21MCG INHALER INH SCH ×2 (08:30→21:30)
[2021-10-05] MEDS: PANTOPRAZOLE 40MG TAB (PROTONIX) PO SCH ×2 (08:54→20:45)
[2021-10-05] MEDS: CYCLOBENZAPRINE 10MG TABLET PO SCH (08:54)
[2021-10-05] MEDS: POTASSIUM CHLORIDE 10MEQ SR TABLET PO SCH ×2 (08:54→20:44)
[2021-10-05] MEDS: FERROUS GLUCONATE 324 MG TAB PO SCH ×2 (08:56→20:44)
[2021-10-05] MEDS: LEVEMIR (INSULIN DETEMIR) 1 UNITS/0.01ML SC SCH ×2 (08:57→20:42)
[2021-10-05] MEDS: SODIUM BICARBONATE 325 MG TAB PO SCH ×2 (08:57→20:43)
[2021-10-05] MEDS: TORSEMIDE 20 MG TAB PO SCH ×2 (08:57→18:12)
[2021-10-05] MEDS: rOPINIRole 2MG TAB PO SCH ×2 (08:57→20:44)
[2021-10-05] MEDS: CALCITRIOL 0.25 MCG CAP (S0169) PO SCH (08:58)
[2021-10-05] MEDS: CARVedilol 12.5 MG TAB PO SCH ×2 (08:58→20:44)
[2021-10-05] MEDS: guaiFENesin ER 600 MG TAB PO SCH ×2 (08:58→20:45)
[2021-10-05] MEDS: CLOPIDOGREL 75 MG TAB PO SCH (08:58)
[2021-10-05] MEDS: HumaLOG INSULIN (NovoLOG) PER UNIT SC SCH ×4 (08:58→20:43)
[2021-10-05] MEDS: predniSONE 20 MG TAB PO SCH (08:58)
[2021-10-05] MEDS: hydrOXYzine 10 MG TAB PO PRN ×3 (09:01→22:54)
[2021-10-05] MEDS: PERCOCET 5MG/325MG TAB PO PRN ×2 (13:35→22:53)
[2021-10-05 14:00] VITALS: BP 162/67
[2021-10-05] MEDS: RIVAROXABAN 15 MG TAB (XARELTO) PO SCH (18:12)
[2021-10-05] MEDS: ATORVASTATIN 20 MG TAB PO SCH (20:44)
[2021-10-05] MEDS: MULTIVITAMINS/MINERALS THERAP 1 TAB PO SCH (20:44)
[2021-10-05 21:30] VITALS: BP 145/76
[2021-10-06] MEDS: SUCRALFATE SUSP 1GM/10ML UD PO SCH ×4 (00:44→17:32)
[2021-10-06 04:30] VITALS: BP 165/78
[2021-10-06] MEDS: **hydrALAZINE HCL** 25 MG TAB PO SCH ×3 (05:33→20:16)
[2021-10-06] MEDS: SODIUM CHLORIDE 0.9% INJ 10 ML SYR IV SCH ×2 (05:33→17:32)
[2021-10-06 06:23] LABS: HEMATOCRIT 28.4 % (36.0-47.0); MEAN CORPUSCULAR HEMOGLOBIN 29.2 pg (27.0-33.0); MEAN CORPUSCULAR HGB CONC 31.7 g/dl (32.0-36.5); MEAN CORPUSCULAR VOLUME 92.2 fl (80.0-96.0); PLATELET COUNT, AUTOMATED 174 10^3/uL (150-450); RED BLOOD COUNT 3.08 10^6/uL (4.00-5.40); WHITE BLOOD COUNT 12.5 10^3/uL (4.0-10.0)
[2021-10-06 06:56] LABS: BILIRUBIN,TOTAL 0.4 MG/DL (0.2-1.0); CALCIUM LEVEL 8.1 MG/DL (8.8-10.2); CREATININE FOR GFR 2.1 MG/DL (0.55-1.30); GLOMERULAR FILTRATION RATE 24.9 (>45); POTASSIUM SERUM 3.6 MEQ/L (3.5-5.1); TOTAL PROTEIN 4.9 GM/DL (6.4-8.2)
[2021-10-06] MEDS: ADVAIR HFA 115/21MCG INHALER INH SCH ×2 (07:22→20:16)
[2021-10-06] MEDS: CYCLOBENZAPRINE 10MG TABLET PO SCH (09:00)
[2021-10-06] MEDS: SODIUM BICARBONATE 325 MG TAB PO SCH (09:00)
[2021-10-06] MEDS: predniSONE 20 MG TAB PO SCH (09:02)
[2021-10-06] MEDS: CARVedilol 12.5 MG TAB PO SCH ×2 (09:03→20:05)
[2021-10-06] MEDS: rOPINIRole 2MG TAB PO SCH ×2 (09:04→20:04)
[2021-10-06] MEDS: TORSEMIDE 20 MG TAB PO SCH ×2 (09:04→17:31)
[2021-10-06] MEDS: POTASSIUM CHLORIDE 10MEQ SR TABLET PO SCH ×2 (09:04→20:04)
[2021-10-06] MEDS: CLOPIDOGREL 75 MG TAB PO SCH (09:05)
[2021-10-06] MEDS: guaiFENesin ER 600 MG TAB PO SCH ×2 (09:05→20:04)
[2021-10-06] MEDS: FERROUS GLUCONATE 324 MG TAB PO SCH ×2 (09:05→20:04)
[2021-10-06] MEDS: PANTOPRAZOLE 40MG TAB (PROTONIX) PO SCH ×2 (09:05→20:04)
[2021-10-06] MEDS: HumaLOG INSULIN (NovoLOG) PER UNIT SC SCH ×4 (09:06→20:02)
[2021-10-06] MEDS: LEVEMIR (INSULIN DETEMIR) 1 UNITS/0.01ML SC SCH ×2 (09:06→20:02)
[2021-10-06 14:00] VITALS: BP 150/76
[2021-10-06] MEDS ORDERED: TORS20TA2 PO (16:01)
[2021-10-06] MEDS: RIVAROXABAN 15 MG TAB (XARELTO) PO SCH (17:31)
[2021-10-06 20:00] VITALS: BP 184/77
[2021-10-06] MEDS: LevoFLOXacin 500 MG TABLET PO SCH (20:04)
[2021-10-06] MEDS: MULTIVITAMINS/MINERALS THERAP 1 TAB PO SCH (20:05)
[2021-10-06] MEDS: ATORVASTATIN 20 MG TAB PO SCH (20:06)
[2021-10-06 20:16] VITALS: BP 184/77
[2021-10-06] MEDS ORDERED: RAMELTEON 8 MG TAB (ROZEREM) PO SCH (21:00)
[2021-10-06 23:08] VITALS: BP_SYST 140; BP_SYST 190; BP_DIAS 56; BP_DIAS 82
[2021-10-06] MEDS: hydrOXYzine 10 MG TAB PO PRN (23:16)
== END 2021-10-06 23:34 | disposition short-term general hospital (02) | DRG 177 ==
LOC: M ED 04:51 → M ED INP 07:47 → ENRESERV 13:40 → M ICU 15:56 → M 4MAIN 09-22 18:45
PROVIDERS: ADMIT Internal Medicine; ATTEND Family Medicine
PROC: 30233N1 Transfusion of Nonautologous Red Blood Cells into Peripheral Vein, Percutaneous Approach (ICD-10-PCS; 2021-09-17)
PROC: 02HV33Z Insertion of Infusion Device into Superior Vena Cava, Percutaneous Approach (ICD-10-PCS; principal; 2021-09-27 14:00)
DX: U07.1 COVID-19 (principal); I21.4 Non-ST elevation (NSTEMI) myocardial infarction; I50.33 Acute on chronic diastolic (congestive) heart failure; J96.01 Acute respiratory failure with hypoxia; J15.9 Unspecified bacterial pneumonia; K92.2 Gastrointestinal hemorrhage, unspecified; I13.0 Hypertensive heart and chronic kidney disease with heart failure and stage 1 through stage 4 chronic kidney disease, or unspecified chronic kidney disease; N17.9 Acute kidney failure, unspecified; E11.52 Type 2 diabetes mellitus with diabetic peripheral angiopathy with gangrene; E87.2 Acidosis; D62 Acute posthemorrhagic anemia; E87.0 Hyperosmolality and hypernatremia; I16.0 Hypertensive urgency; I25.10 Atherosclerotic heart disease of native coronary artery without angina pectoris; I48.0 Paroxysmal atrial fibrillation; G47.33 Obstructive sleep apnea (adult) (pediatric); E11.40 Type 2 diabetes mellitus with diabetic neuropathy, unspecified; E11.22 Type 2 diabetes mellitus with diabetic chronic kidney disease; N18.32 Chronic kidney disease, stage 3b; G25.81 Restless legs syndrome; K21.9 Gastro-esophageal reflux disease without esophagitis; J44.9 Chronic obstructive pulmonary disease, unspecified; N25.0 Renal osteodystrophy; F41.9 Anxiety disorder, unspecified; I95.9 Hypotension, unspecified; F32.A Depression, unspecified; D63.1 Anemia in chronic kidney disease; D69.6 Thrombocytopenia, unspecified; E87.6 Hypokalemia; E11.649 Type 2 diabetes mellitus with hypoglycemia without coma; Z90.49 Acquired absence of other specified parts of digestive tract; Z95.1 Presence of aortocoronary bypass graft; Z95.3 Presence of xenogenic heart valve; Z98.41 Cataract extraction status, right eye; Z98.42 Cataract extraction status, left eye; Z79.01 Long term (current) use of anticoagulants; Z79.4 Long term (current) use of insulin; Z79.899 Other long term (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 therapy; Z88.0 Allergy status to penicillin; Z89.421 Acquired absence of other right toe(s); Z89.422 Acquired absence of other left toe(s); Z79.02 Long term (current) use of antithrombotics/antiplatelets

== ENCOUNTER → 2023-01-17 | Outpatient (REF) | payer MEDICARE, MEDICAID, OTHER ==
[~2023-01-17] MED LIST changes: +AMLO10TA PO; +ARTIDRO4 OU; +CLOP75TA99 PO; -COZA50TA PO; -LABE200T32 PO; +LABE200T5 PO; +LEVO1TAB38 PO; +LEVO1TAB39 PO; +LEVO1TAB40 PO; -LEVO250T3 PO; -LEVO500T4 PO; -LEVO750T13 PO; +LOSA-528 PO; +MED NOTE; -OFLO3OPSO OD; +OFLO5DRO OD; -PLAV1TAB2 PO; -POLYOPD OU; +POTA-150 PO; -POTA10CA32 PO; +POTA10CA33 PO; -POTA10TA17 PO; +TORS20TA2 PO; +XARE2.5T PO
[2023-01-20 18:08] LABS: PERCENT SATURATION 18.8 % (13.2-45.0)
[2023-01-20 18:11] LABS: FERRITIN 202.2 NG/ML (7.3-270.7)
== END ==
LOC: M LAB REF 17:03
PROVIDERS: ATTEND Nurse Practitioner Family
DX: D50.9 Iron deficiency anemia, unspecified (principal)

== ENCOUNTER 2023-03-05 16:09 | Emergency (ER) | payer OTHER, MEDICAID ==
[~2023-03-05] VITALS: Ht 154.9 cm; Wt 75.0 kg
[~2023-03-05 16:09] MED LIST changes: -PERC5TAB12 PO; -ROPI1TAB3 PO; +ROPI1TAB73 PO
[2023-03-05 18:36] LABS: BASO # 0.1 10^3/uL (0.0-0.2); BASO % 0.5 % (0.0-1.0); EOS # 0.2 10^3/uL (0.0-0.5); EOS % 1.9 % (0.0-3.0); HEMATOCRIT 29.6 % (36.0-47.0); HEMOGLOBIN 9.4 g/dl (12.0-15.5); LYMPH # 1.9 10^3/uL (1.5-5.0); LYMPH % 20.4 % (24.0-44.0); MEAN CORPUSCULAR HEMOGLOBIN 30.3 pg (27.0-33.0); MEAN CORPUSCULAR HGB CONC 31.8 g/dl (32.0-36.5); MEAN CORPUSCULAR VOLUME 95.5 fl (80.0-96.0); MONO # 0.6 10^3/uL (0.0-0.8); MONO % 6.2 % (2.0-8.0); NEUTROPHILS # 6.7 10^3/uL (1.5-8.5); NEUTROPHILS % 70.8 % (36.0-66.0); PLATELET COUNT, AUTOMATED 160 10^3/uL (150-450); WHITE BLOOD COUNT 9.4 10^3/uL (4.0-10.0)
[2023-03-05 19:01] LABS: CALCIUM LEVEL 8.5 MG/DL (8.3-10.6); CREATININE FOR GFR 3.91 MG/DL (0.55-1.30); GLOMERULAR FILTRATION RATE 12.1 (>39); POTASSIUM SERUM 5.4 MMOL/L (3.5-5.1)
[2023-03-05] MEDS ORDERED: MORPHINE 4 MG/ML 1ML VIAL IV ONE (19:10)
[2023-03-05] MEDS ORDERED: OXYCODONE/APAP 5MG/325MG(HOME DOSE PACK) PO ONE (22:45)
[2023-03-05] MEDS ORDERED: PERCOCET 5MG/325MG TAB PO ONE (22:45)
[2023-03-05] MEDS ORDERED: PATIROMER SORBITEX CALCIUM 8.4 GM POWDER PACKET (VELTASSA) PO ONE (22:45)
[2023-03-05] MEDS ORDERED: PERC5TAB12 PO (22:51)
[2023-03-05 23:14] VITALS: BP 161/77; TEMP 97.9; O2SAT 99
== END 2023-03-05 23:18 | disposition home or self-care (01) ==
LOC: M ED 16:09
DX: M79.642 Pain in left hand (principal); E87.5 Hyperkalemia; I73.9 Peripheral vascular disease, unspecified; D50.9 Iron deficiency anemia, unspecified; I48.91 Unspecified atrial fibrillation; I25.10 Atherosclerotic heart disease of native coronary artery without angina pectoris; I50.20 Unspecified systolic (congestive) heart failure; N18.9 Chronic kidney disease, unspecified; Z88.0 Allergy status to penicillin; Z99.81 Dependence on supplemental oxygen; Z79.899 Other long term (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 therapy; Z79.01 Long term (current) use of anticoagulants; Z79.4 Long term (current) use of insulin

== ENCOUNTER → 2023-03-05 | Outpatient (REF) | payer OTHER, MEDICAID ==
[~2023-03-05] MED LIST changes: +CARB15DR33 OU; +ELIQ5TAB PO; +FERR1TAB8 PO; +INSU100I36 SC; +IRBE300T7 PO; -K-TA10TA2 PO; +MIRA1POW3 PO; +NIFE1TAB52 PO; +NOVOINJ3 SC; +ONDA4TAB6 PO; +PANT-23 PO; +PERC5TAB12 PO; +POTA-165 PO; -POTA10CA33 PO; +POTA10CA60 PO; +RA M10TA PO; +SENN-23 PO; +SYNT50TA PO
[2023-03-05 19:14] LABS: PERCENT SATURATION 15.5 % (13.2-45.0)
[2023-03-05 19:17] LABS: FERRITIN 600.2 NG/ML (7.3-270.7)
== END ==
LOC: M LAB REF 17:10
PROVIDERS: ATTEND Nurse Practitioner Family
DX: D50.9 Iron deficiency anemia, unspecified (principal)

== ENCOUNTER 2023-03-07 11:11 | Emergency (ER) | payer OTHER, MEDICAID ==
[~2023-03-07] VITALS: Ht 154.9 cm; Wt 76.4 kg
[~2023-03-07 11:11] MED LIST changes: +PERC5TAB12 PO
[2023-03-07] MEDS ORDERED: MORPHINE 4 MG/ML 1ML VIAL IV ONE (13:15)
[2023-03-07 15:58] LABS: BASO % 0.5 % (0.0-1.0); EOS # 0.2 10^3/uL (0.0-0.5); EOS % 2.3 % (0.0-3.0); HEMATOCRIT 30.1 % (36.0-47.0); HEMOGLOBIN 9.5 g/dl (12.0-15.5); LYMPH # 1.5 10^3/uL (1.5-5.0); LYMPH % 17.1 % (24.0-44.0); MEAN CORPUSCULAR HEMOGLOBIN 30.4 pg (27.0-33.0); MEAN CORPUSCULAR HGB CONC 31.6 g/dl (32.0-36.5); MEAN CORPUSCULAR VOLUME 96.2 fl (80.0-96.0); MONO # 0.6 10^3/uL (0.0-0.8); MONO % 7.4 % (2.0-8.0); NEUTROPHILS # 6.3 10^3/uL (1.5-8.5); NEUTROPHILS % 72.4 % (36.0-66.0); PLATELET COUNT, AUTOMATED 180 10^3/uL (150-450); RED BLOOD COUNT 3.13 10^6/uL (4.00-5.40); WHITE BLOOD COUNT 8.7 10^3/uL (4.0-10.0)
[2023-03-07 16:24] LABS: ALBUMIN 1.8 G/DL (3.2-5.2); ALKALINE PHOSPHATASE 70 U/L (46-116); ALT/SGPT 13 U/L (7.0-40); AST/SGOT 13 U/L (<34); BILIRUBIN,DIRECT < 0.1 MG/DL (<0.4); BILIRUBIN,TOTAL 0.2 MG/DL (0.3-1.2); TOTAL PROTEIN 4.6 G/DL (5.7-8.2)
[2023-03-07 18:01] VITALS: BP 165/72; TEMP 97.6; O2SAT 98
== END 2023-03-07 18:04 | disposition short-term general hospital (02) ==
LOC: M ED 11:11
DX: M62.242 Nontraumatic ischemic infarction of muscle, left hand (principal); T82.898A Other specified complication of vascular prosthetic devices, implants and grafts, initial encounter; I11.9 Hypertensive heart disease without heart failure; I25.10 Atherosclerotic heart disease of native coronary artery without angina pectoris; I50.20 Unspecified systolic (congestive) heart failure; I25.2 Old myocardial infarction; E11.40 Type 2 diabetes mellitus with diabetic neuropathy, unspecified; J45.909 Unspecified asthma, uncomplicated; Z86.14 Personal history of Methicillin resistant Staphylococcus aureus infection; K27.9 Peptic ulcer, site unspecified, unspecified as acute or chronic, without hemorrhage or perforation; G47.33 Obstructive sleep apnea (adult) (pediatric); E11.319 Type 2 diabetes mellitus with unspecified diabetic retinopathy without macular edema; E03.9 Hypothyroidism, unspecified; Z79.01 Long term (current) use of anticoagulants; Z88.0 Allergy status to penicillin; Z79.899 Other long term (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 therapy; Z79.4 Long term (current) use of insulin

== ENCOUNTER 2023-04-06 12:23 | Inpatient (IN) | payer OTHER, MEDICAID ==
[~2023-04-06] VITALS: Ht 154.9 cm; Wt 71.4 kg
[~2023-04-06 12:23] MED LIST changes: -GABA-283 PO; +GABA-284 PO
[2023-04-06] MEDS ORDERED: MORPHINE 4 MG/ML 1ML VIAL IV ONE (13:00)
[2023-04-06] MEDS ORDERED: CARVedilol 12.5 MG TAB PO ONE (13:05)
[2023-04-06] MEDS ORDERED: cloNIDine 0.2 MG TAB PO ONE (13:05)
[2023-04-06 14:29] LABS: BASO % 0.4 % (0.0-1.0); EOS # 0.3 10^3/uL (0.0-0.5); EOS % 3.8 % (0.0-3.0); HEMATOCRIT 25.1 % (36.0-47.0); HEMOGLOBIN 8.5 g/dl (12.0-15.5); LYMPH # 1.6 10^3/uL (1.5-5.0); LYMPH % 20.1 % (24.0-44.0); MEAN CORPUSCULAR HEMOGLOBIN 30.6 pg (27.0-33.0); MEAN CORPUSCULAR HGB CONC 33.9 g/dl (32.0-36.5); MEAN CORPUSCULAR VOLUME 90.3 fl (80.0-96.0); MONO # 0.6 10^3/uL (0.0-0.8); MONO % 7.6 % (2.0-8.0); NEUTROPHILS # 5.2 10^3/uL (1.5-8.5); NEUTROPHILS % 67.7 % (36.0-66.0); PLATELET COUNT, AUTOMATED 149 10^3/uL (150-450); RED BLOOD COUNT 2.78 10^6/uL (4.00-5.40); WHITE BLOOD COUNT 7.7 10^3/uL (4.0-10.0)
[2023-04-06] MEDS ORDERED: hydrALAZINE 20MG/ML 1ML VIAL IV ONE (14:30)
[2023-04-06] MEDS ORDERED: MED REC IN PROGRESS XX SCH (14:35)
[2023-04-06 14:49] LABS: INR 1.15; PARTIAL THROMBOPLASTIN TIME 38.8 SECONDS (24.8-34.2); PROTHROMBIN TIME 14.9 SECONDS (12.5-14.5)
[2023-04-06 15:02] LABS: CK-MB VALUE MASS 4.9 NG/ML (<3.6)
[2023-04-06 15:04] LABS: CALCIUM LEVEL 7.9 MG/DL (8.3-10.6); CREATININE FOR GFR 3.85 MG/DL (0.55-1.30); GLOMERULAR FILTRATION RATE 12.3 (>39); MB/CK RELATIVE INDEX 2.5 (< OR =4); POTASSIUM SERUM 4.4 MMOL/L (3.5-5.1)
[2023-04-06 15:06] LABS: FREE T4 0.74 NG/DL (0.89-1.76); THYROID STIMULATING HORMONE 8.754 uIU/ML (0.55-4.78)
[2023-04-06] MEDS ORDERED: HYDROMORPHONE HCL 0.5 MG/ 0.5 ML SYRINGE IV PRN ×2 (16:20)
[2023-04-06] MEDS: FUROSEMIDE 40MG/4ML VIAL IV SCH ×2 (16:56→22:09)
[2023-04-06 17:15] LABS: RSV AMPLIFICATION NEGATIVE (NEGATIVE)
[2023-04-06] MEDS ORDERED: GLUCOSE 4GM CHEW TABLET PO PRN (17:25)
[2023-04-06] MEDS ORDERED: GLUCAGON INJ 1MG VIAL SC PRN (17:25)
[2023-04-06] MEDS ORDERED: DEXTROSE 50% 50ML SYRINGE IV PRN (17:25)
[2023-04-06] MEDS ORDERED: OMEP40CA5 PO (17:43)
[2023-04-06] MEDS ORDERED: NIFE90TA46 PO (17:43)
[2023-04-06] MEDS ORDERED: VITA100093 PO (17:43)
[2023-04-06] MEDS ORDERED: MULT400T10 PO (17:44)
[2023-04-06] MEDS ORDERED: HOME MED LIST COMPLETE! XX SCH (17:45)
[2023-04-06] MEDS: **hydrALAZINE HCL** 25 MG TAB PO SCH ×2 (18:30→23:40)
[2023-04-06] MEDS: INSULIN LISPRO (NovoLOG) PER UNIT SC SCH ×3 (19:48→22:02)
[2023-04-06] MEDS: cloNIDine 0.2 MG TAB PO SCH (21:00)
[2023-04-06 21:26] VITALS: BP 244/82; TEMP 97; O2SAT 99
[2023-04-06] MEDS: APIXABAN 5 MG TAB (ELIQUIS) PO SCH (21:44)
[2023-04-06] MEDS: CARVedilol 12.5 MG TAB PO SCH (21:45)
[2023-04-06 22:00] VITALS: O2SAT 100
[2023-04-06] MEDS: LEVEMIR (INSULIN DETEMIR) 1 UNITS/0.01ML SC SCH (22:09)
[2023-04-06] MEDS ORDERED: hydrALAZINE 20MG/ML 1ML VIAL IV STA (22:23)
[2023-04-06 22:28] VITALS: BP 228/70
[2023-04-06] MEDS: rOPINIRole 2MG TAB PO SCH (22:32)
[2023-04-06 23:00] VITALS: O2SAT 100
[2023-04-06 23:04] VITALS: BP 202/62
[2023-04-06 23:40] VITALS: BP 210/78; TEMP 96.5; O2SAT 98
[2023-04-07] VITALS (29 sets, daily range): BP systolic 122–218; BP diastolic 52–90; TEMP 96.7–98.2; O2SAT 95–100
[2023-04-07] MEDS ORDERED: ISOSORBIDE DIN. (ISORDIL) 20 MG TAB PO ONE (00:35)
[2023-04-07] MEDS ORDERED: cloNIDine 0.2 MG TAB PO ONE (00:35)
[2023-04-07] MEDS ORDERED: NIFEdipine 10 MG CAP PO ONE (00:35)
[2023-04-07] MEDS: hydrALAZINE 20MG/ML 1ML VIAL IV PRN (02:10)
[2023-04-07] MEDS: FUROSEMIDE 40MG/4ML VIAL IV SCH (04:21)
[2023-04-07 04:58] LABS: BASO % 0.3 % (0.0-1.0); EOS # 0.3 10^3/uL (0.0-0.5); EOS % 3.6 % (0.0-3.0); HEMATOCRIT 28.3 % (36.0-47.0); HEMOGLOBIN 9.3 g/dl (12.0-15.5); LYMPH # 1.4 10^3/uL (1.5-5.0); LYMPH % 17.4 % (24.0-44.0); MEAN CORPUSCULAR HEMOGLOBIN 30.1 pg (27.0-33.0); MEAN CORPUSCULAR HGB CONC 32.9 g/dl (32.0-36.5); MEAN CORPUSCULAR VOLUME 91.6 fl (80.0-96.0); MONO # 0.5 10^3/uL (0.0-0.8); MONO % 5.9 % (2.0-8.0); NEUTROPHILS # 5.6 10^3/uL (1.5-8.5); NEUTROPHILS % 72.4 % (36.0-66.0); PLATELET COUNT, AUTOMATED 159 10^3/uL (150-450); RED BLOOD COUNT 3.09 10^6/uL (4.00-5.40); WHITE BLOOD COUNT 7.7 10^3/uL (4.0-10.0)
[2023-04-07] MEDS: **hydrALAZINE HCL** 25 MG TAB PO SCH (06:00)
[2023-04-07] MEDS: LEVOTHYROXINE 75MCG TABLET (0.075MG) PO SCH (06:12)
[2023-04-07 06:27] LABS: CALCIUM LEVEL 8.1 MG/DL (8.3-10.6); CREATININE FOR GFR 4.17 MG/DL (0.55-1.30); GLOMERULAR FILTRATION RATE 11.2 (>39); PHOSPHORUS LEVEL 5.5 MG/DL (2.4-5.1); POTASSIUM SERUM 4.1 MMOL/L (3.5-5.1)
[2023-04-07] MEDS: INSULIN LISPRO (NovoLOG) PER UNIT SC SCH ×5 (07:30→20:44)
[2023-04-07] MEDS: rOPINIRole 2MG TAB PO SCH ×2 (09:05→20:54)
[2023-04-07] MEDS: CARVedilol 12.5 MG TAB PO SCH ×2 (09:06→20:54)
[2023-04-07] MEDS: VITAMIN D 1,000 INTERNATIONAL UNITS TABLET PO SCH (09:06)
[2023-04-07] MEDS: NIFEdipine 30MG XL TAB PO SCH (09:06)
[2023-04-07] MEDS: CALCITRIOL 0.25 MCG CAP (S0169) PO SCH (09:06)
[2023-04-07] MEDS: CLOPIDOGREL 75 MG TAB PO SCH (09:06)
[2023-04-07] MEDS: cloNIDine 0.2 MG TAB PO SCH ×3 (09:06→20:54)
[2023-04-07] MEDS: APIXABAN 5 MG TAB (ELIQUIS) PO SCH ×2 (09:07→20:54)
[2023-04-07] MEDS: MULTIVITAMINS/MINERALS THERAP 1 TAB PO SCH (09:07)
[2023-04-07] MEDS: FERROUS SULFATE 325MG TAB PO SCH (09:07)
[2023-04-07] MEDS: FUROSEMIDE 100MG/10ML VIAL IV SCH ×2 (13:13→17:23)
[2023-04-07] MEDS: **hydrALAZINE** 50 MG TAB PO SCH ×2 (17:23→20:53)
[2023-04-07] MEDS: LEVEMIR (INSULIN DETEMIR) 1 UNITS/0.01ML SC SCH (20:53)
[2023-04-08] VITALS (15 sets, daily range): BP systolic 142–200; BP diastolic 66–90; TEMP 96.5–97.7; O2SAT 97–100
[2023-04-08] MEDS: FUROSEMIDE 100MG/10ML VIAL IV SCH ×3 (02:26→16:48)
[2023-04-08] MEDS ORDERED: amLODIPine 5 MG TAB PO ONE (04:30)
[2023-04-08] MEDS: LEVOTHYROXINE 75MCG TABLET (0.075MG) PO SCH (05:03)
[2023-04-08 06:44] LABS: IRON (FE) 50 UG/DL (50-170); PERCENT SATURATION 23.6 % (13.2-45.0); TOTAL IRON BINDING CAPACITY 212 UG/DL (250-425)
[2023-04-08 06:45] LABS: ALBUMIN 1.5 G/DL (3.2-5.2); ALKALINE PHOSPHATASE 62 U/L (46-116); ALT/SGPT 15 U/L (7.0-40); AST/SGOT 14 U/L (<34); BILIRUBIN,TOTAL < 0.2 MG/DL (0.3-1.2); BLOOD UREA NITROGEN 91 MG/DL (9-23); CALCIUM LEVEL 7.8 MG/DL (8.3-10.6); CARBON DIOXIDE LEVEL 22 MMOL/L (20-31); CHLORIDE LEVEL 107 MMOL/L (98-107); CREATININE FOR GFR 4.24 MG/DL (0.55-1.30); GLUCOSE, FASTING 126 MG/DL (74-106); MAGNESIUM LEVEL 2.1 MG/DL (1.8-2.4); PHOSPHORUS LEVEL 5.9 MG/DL (2.4-5.1); SODIUM LEVEL 139 MMOL/L (136-145); TOTAL PROTEIN 4.1 G/DL (5.7-8.2)
[2023-04-08 06:47] LABS: FERRITIN 388.2 NG/ML (7.3-270.7)
[2023-04-08] MEDS: INSULIN LISPRO (NovoLOG) PER UNIT SC SCH ×4 (08:28→20:19)
[2023-04-08] MEDS: rOPINIRole 2MG TAB PO SCH ×2 (08:29→20:17)
[2023-04-08] MEDS: ACETAMINOPHEN TAB 650MG DOSE (2X325MG) PO PRN ×2 (08:29→20:17)
[2023-04-08] MEDS: CALCITRIOL 0.25 MCG CAP (S0169) PO SCH (08:29)
[2023-04-08] MEDS: APIXABAN 5 MG TAB (ELIQUIS) PO SCH ×2 (08:29→20:18)
[2023-04-08] MEDS: cloNIDine 0.2 MG TAB PO SCH ×3 (08:29→20:17)
[2023-04-08] MEDS: FERROUS SULFATE 325MG TAB PO SCH (08:30)
[2023-04-08] MEDS: NIFEdipine 30MG XL TAB PO SCH (08:30)
[2023-04-08] MEDS: CLOPIDOGREL 75 MG TAB PO SCH (08:31)
[2023-04-08] MEDS: MULTIVITAMINS/MINERALS THERAP 1 TAB PO SCH (08:31)
[2023-04-08] MEDS: VITAMIN D 1,000 INTERNATIONAL UNITS TABLET PO SCH (08:31)
[2023-04-08] MEDS: CARVedilol 12.5 MG TAB PO SCH ×2 (08:31→20:18)
[2023-04-08] MEDS: **hydrALAZINE** 50 MG TAB PO SCH ×3 (08:31→20:18)
[2023-04-08] MEDS ORDERED: FERRIC CARBOXYMALTOSE INJ 750 MG, VIAL MATE ADAPTER 1 EACH in NS 250 ML IV ONE (12:00)
[2023-04-08] MEDS: LEVEMIR (INSULIN DETEMIR) 1 UNITS/0.01ML SC SCH (20:18)
[2023-04-09] VITALS (11 sets, daily range): BP systolic 124–200; BP diastolic 56–82; TEMP 96.9–98; O2SAT 93–97
[2023-04-09] MEDS: FUROSEMIDE 100MG/10ML VIAL IV SCH ×3 (01:00→17:47)
[2023-04-09] MEDS: hydrALAZINE 20MG/ML 1ML VIAL IV PRN ×2 (04:36→23:47)
[2023-04-09] MEDS: LEVOTHYROXINE 75MCG TABLET (0.075MG) PO SCH (05:52)
[2023-04-09] MEDS: cloNIDine 0.2 MG TAB PO SCH ×3 (05:52→20:00)
[2023-04-09] MEDS: **hydrALAZINE** 50 MG TAB PO SCH ×3 (05:53→20:00)
[2023-04-09] MEDS: CARVedilol 12.5 MG TAB PO SCH ×2 (05:54→20:00)
[2023-04-09] MEDS: ACETAMINOPHEN 500 MG TAB PO SCH ×4 (06:00→23:48)
[2023-04-09] MEDS: INSULIN LISPRO (NovoLOG) PER UNIT SC SCH ×4 (07:30→21:00)
[2023-04-09] MEDS ORDERED: hydrALAZINE 20MG/ML 1ML VIAL IV ONE (07:35)
[2023-04-09] MEDS ORDERED: LABETALOL 100MG/20ML VIAL IV ONE (07:35)
[2023-04-09] MEDS ORDERED: GABAPENTIN 100 MG CAP PO ONE (07:35)
[2023-04-09 07:39] LABS: BASO % 0.4 % (0.0-1.0); EOS # 0.3 10^3/uL (0.0-0.5); EOS % 4.3 % (0.0-3.0); HEMATOCRIT 24.5 % (36.0-47.0); HEMOGLOBIN 8.4 g/dl (12.0-15.5); LYMPH # 1.5 10^3/uL (1.5-5.0); LYMPH % 20.9 % (24.0-44.0); MEAN CORPUSCULAR HEMOGLOBIN 30.9 pg (27.0-33.0); MEAN CORPUSCULAR HGB CONC 34.3 g/dl (32.0-36.5); MEAN CORPUSCULAR VOLUME 90.1 fl (80.0-96.0); MONO # 0.6 10^3/uL (0.0-0.8); MONO % 7.8 % (2.0-8.0); NEUTROPHILS # 4.7 10^3/uL (1.5-8.5); NEUTROPHILS % 66.2 % (36.0-66.0); PLATELET COUNT, AUTOMATED 155 10^3/uL (150-450); RED BLOOD COUNT 2.72 10^6/uL (4.00-5.40); WHITE BLOOD COUNT 7.1 10^3/uL (4.0-10.0)
[2023-04-09 08:08] LABS: ALBUMIN 1.5 G/DL (3.2-5.2); CALCIUM LEVEL 8.2 MG/DL (8.3-10.6); CREATININE FOR GFR 4.19 MG/DL (0.55-1.30); GLOMERULAR FILTRATION RATE 11.2 (>39); POTASSIUM SERUM 3.5 MMOL/L (3.5-5.1)
[2023-04-09] MEDS ORDERED: HYDROMORPHONE HCL 0.5 MG/ 0.5 ML SYRINGE IV ONE (08:20)
[2023-04-09] MEDS: NIFEdipine 30MG XL TAB PO SCH (09:00)
[2023-04-09] MEDS: APIXABAN 5 MG TAB (ELIQUIS) PO SCH ×3 (09:00→19:59)
[2023-04-09] MEDS: CLOPIDOGREL 75 MG TAB PO SCH ×2 (09:00→09:26)
[2023-04-09] MEDS ORDERED: HYDROMORPHONE HCL 0.5 MG/ 0.5 ML SYRINGE IV PRN (09:25)
[2023-04-09] MEDS: FERROUS SULFATE 325MG TAB PO SCH (09:26)
[2023-04-09] MEDS: VITAMIN D 1,000 INTERNATIONAL UNITS TABLET PO SCH (09:27)
[2023-04-09] MEDS: CALCITRIOL 0.25 MCG CAP (S0169) PO SCH (09:27)
[2023-04-09] MEDS: MULTIVITAMINS/MINERALS THERAP 1 TAB PO SCH (09:27)
[2023-04-09] MEDS: rOPINIRole 2MG TAB PO SCH ×2 (09:27→19:59)
[2023-04-09] MEDS ORDERED: HEPARIN 1,000UNITS/ML 10ML VIAL (FOR RADIOLOGY & DIALYSIS ONLY) IV PRN (09:45)
[2023-04-09] MEDS ORDERED: HEPARIN 1,000UNITS/ML 10ML VIAL (FOR RADIOLOGY & DIALYSIS ONLY) XX SCH (09:45)
[2023-04-09] MEDS ORDERED: SODIUM CHLORIDE 0.9% 1000ML IV PRN (09:45)
[2023-04-09] MEDS ORDERED: MIDAZOLAM INJ 2MG/2ML VIAL As Ordered ONE (10:19)
[2023-04-09] MEDS ORDERED: HEPARIN 1,000UNITS/ML 10ML VIAL (FOR RADIOLOGY & DIALYSIS ONLY) As Ordered ONE (10:19)
[2023-04-09] MEDS ORDERED: fentaNYL 100 MCG/2 ML INJECTION As Ordered ONE (10:19)
[2023-04-09] MEDS ORDERED: LIDOCAINE W/EPINEPHRINE 1% 20ML VIAL As Ordered ONE (10:20)
[2023-04-09] MEDS ORDERED: NS 1,000 ML IV SCH (10:20)
[2023-04-09] MEDS ORDERED: VANCOMYCIN 1000MG/20ML VIAL As Ordered ONE (10:45)
[2023-04-09] MEDS ORDERED: ceFAZolin 2 GM/D5W 50 ML IV BAG As Ordered ONE (10:51)
[2023-04-09] MEDS ORDERED: ceFAZolin SOD 2 GM in IV 1 EA IV ONE (11:00)
[2023-04-09] MEDS ORDERED: hydrALAZINE 20MG/ML 1ML VIAL As Ordered ONE (11:45)
[2023-04-09 14:11] LABS: HEPATITIS B SURFACE ANTIBODY NEGATIVE (POSITIVE)
[2023-04-09 14:42] LABS: HEPATITIS C VIRUS ABY INDEX 0.13 INDEX (<0.8)
[2023-04-09 14:43] LABS: HEPATITIS B CORE ANTIBODY IGM NEGATIVE (NEGATIVE)
[2023-04-09] MEDS: ATORVASTATIN 20 MG TAB PO SCH (19:59)
[2023-04-09] MEDS: LEVEMIR (INSULIN DETEMIR) 1 UNITS/0.01ML SC SCH (21:12)
[2023-04-10] VITALS (9 sets, daily range): BP systolic 140–172; BP diastolic 60–90; TEMP 97.8–98.2; O2SAT 93–99
[2023-04-10 05:02] LABS: BASO % 0.3 % (0.0-1.0); EOS # 0.2 10^3/uL (0.0-0.5); EOS % 2.7 % (0.0-3.0); HEMATOCRIT 23.9 % (36.0-47.0); HEMOGLOBIN 8.2 g/dl (12.0-15.5); LYMPH # 1.5 10^3/uL (1.5-5.0); LYMPH % 21.5 % (24.0-44.0); MEAN CORPUSCULAR HEMOGLOBIN 30.8 pg (27.0-33.0); MEAN CORPUSCULAR HGB CONC 34.3 g/dl (32.0-36.5); MEAN CORPUSCULAR VOLUME 89.8 fl (80.0-96.0); MONO # 0.6 10^3/uL (0.0-0.8); NEUTROPHILS # 4.7 10^3/uL (1.5-8.5); NEUTROPHILS % 66.1 % (36.0-66.0); PLATELET COUNT, AUTOMATED 157 10^3/uL (150-450); RED BLOOD COUNT 2.66 10^6/uL (4.00-5.40); WHITE BLOOD COUNT 7.1 10^3/uL (4.0-10.0)
[2023-04-10 05:33] LABS: CALCIUM LEVEL 7.8 MG/DL (8.3-10.6); CREATININE FOR GFR 3.13 MG/DL (0.55-1.30); GLOMERULAR FILTRATION RATE 15.6 (>39); POTASSIUM SERUM 3.7 MMOL/L (3.5-5.1)
[2023-04-10] MEDS: LEVOTHYROXINE 75MCG TABLET (0.075MG) PO SCH (05:52)
[2023-04-10] MEDS: APIXABAN 5 MG TAB (ELIQUIS) PO SCH ×2 (05:52→12:27)
[2023-04-10] MEDS: CALCITRIOL 0.25 MCG CAP (S0169) PO SCH ×2 (05:52→12:26)
[2023-04-10] MEDS: ACETAMINOPHEN 500 MG TAB PO SCH ×3 (05:52→17:59)
[2023-04-10] MEDS ORDERED: HEPARIN 1,000UNITS/ML 10ML VIAL (FOR RADIOLOGY & DIALYSIS ONLY) IV PRN (06:00)
[2023-04-10] MEDS ORDERED: SODIUM CHLORIDE 0.9% 1000ML IV PRN (06:00)
[2023-04-10] MEDS ORDERED: HEPARIN 1,000UNITS/ML 10ML VIAL (FOR RADIOLOGY & DIALYSIS ONLY) XX SCH (06:00)
[2023-04-10] MEDS: INSULIN LISPRO (NovoLOG) PER UNIT SC SCH ×4 (07:30→21:00)
[2023-04-10] MEDS ORDERED: HYDROMORPHONE HCL 0.5 MG/ 0.5 ML SYRINGE IV ONE (08:05)
[2023-04-10] MEDS ORDERED: cloNIDine 0.1MG TABLET PO SCH (09:00)
[2023-04-10] MEDS: CARVedilol 12.5 MG TAB PO SCH ×2 (12:24→21:20)
[2023-04-10] MEDS: rOPINIRole 2MG TAB PO SCH ×2 (12:25→21:19)
[2023-04-10] MEDS: NIFEdipine 30MG XL TAB PO SCH (12:26)
[2023-04-10] MEDS: **hydrALAZINE** 50 MG TAB PO SCH ×3 (12:28→21:20)
[2023-04-10] MEDS: CLOPIDOGREL 75 MG TAB PO SCH (12:29)
[2023-04-10 17:15] LABS: HEMATOCRIT 25.9 % (36.0-47.0); HEMOGLOBIN 8.7 g/dl (12.0-15.5); MEAN CORPUSCULAR HEMOGLOBIN 30.9 pg (27.0-33.0); MEAN CORPUSCULAR HGB CONC 33.6 g/dl (32.0-36.5); MEAN CORPUSCULAR VOLUME 91.8 fl (80.0-96.0); PLATELET COUNT, AUTOMATED 156 10^3/uL (150-450); RED BLOOD COUNT 2.82 10^6/uL (4.00-5.40); WHITE BLOOD COUNT 7.6 10^3/uL (4.0-10.0)
[2023-04-10 17:27] LABS: INR 1.52; PARTIAL THROMBOPLASTIN TIME 40.3 SECONDS (24.8-34.2); PROTHROMBIN TIME 17.9 SECONDS (12.5-14.5)
[2023-04-10] MEDS ORDERED: FUROSEMIDE 20MG/2ML VIAL IV ONE (18:25)
[2023-04-10] MEDS: LEVEMIR (INSULIN DETEMIR) 1 UNITS/0.01ML SC SCH (21:00)
[2023-04-10] MEDS: ATORVASTATIN 20 MG TAB PO SCH (21:20)
[2023-04-11] VITALS (9 sets, daily range): BP systolic 110–175; BP diastolic 64–80; TEMP 97.4–98.6; O2SAT 93–100
[2023-04-11] MEDS: ACETAMINOPHEN 500 MG TAB PO SCH ×4 (00:15→17:50)
[2023-04-11 01:38] LABS: HEMATOCRIT 24.3 % (36.0-47.0); HEMOGLOBIN 8.1 g/dl (12.0-15.5)
[2023-04-11] MEDS: LEVOTHYROXINE 75MCG TABLET (0.075MG) PO SCH (05:30)
[2023-04-11 05:40] LABS: BASO % 0.4 % (0.0-1.0); EOS # 0.2 10^3/uL (0.0-0.5); EOS % 2.8 % (0.0-3.0); HEMATOCRIT 23.4 % (36.0-47.0); HEMOGLOBIN 7.8 g/dl (12.0-15.5); LYMPH # 1.8 10^3/uL (1.5-5.0); LYMPH % 24.3 % (24.0-44.0); MEAN CORPUSCULAR HEMOGLOBIN 29.8 pg (27.0-33.0); MEAN CORPUSCULAR HGB CONC 33.3 g/dl (32.0-36.5); MEAN CORPUSCULAR VOLUME 89.3 fl (80.0-96.0); MONO # 0.6 10^3/uL (0.0-0.8); NEUTROPHILS # 4.7 10^3/uL (1.5-8.5); PLATELET COUNT, AUTOMATED 160 10^3/uL (150-450); RED BLOOD COUNT 2.62 10^6/uL (4.00-5.40); WHITE BLOOD COUNT 7.4 10^3/uL (4.0-10.0)
[2023-04-11 06:26] LABS: CALCIUM LEVEL 7.9 MG/DL (8.3-10.6); CREATININE FOR GFR 2.43 MG/DL (0.55-1.30); GLOMERULAR FILTRATION RATE 20.9 (>39); POTASSIUM SERUM 3.6 MMOL/L (3.5-5.1)
[2023-04-11] MEDS: **hydrALAZINE** 50 MG TAB PO SCH ×4 (08:33→22:14)
[2023-04-11] MEDS: rOPINIRole 2MG TAB PO SCH ×2 (09:00→22:14)
[2023-04-11] MEDS ORDERED: DARBEPOETIN 100MCG/0.5ML *DIALYSIS* SYRINGE IV SCH (09:00)
[2023-04-11] MEDS: INSULIN LISPRO (NovoLOG) PER UNIT SC SCH ×4 (10:15→21:00)
[2023-04-11] MEDS: CARVedilol 12.5 MG TAB PO SCH ×2 (10:16→22:13)
[2023-04-11] MEDS: NIFEdipine 30MG XL TAB PO SCH (10:16)
[2023-04-11] MEDS ORDERED: LIDOCAINE W/EPINEPHRINE 1% 20ML VIAL As Ordered ONE (13:15)
[2023-04-11 16:41] LABS: HEMATOCRIT 34.6 % (36.0-47.0)
[2023-04-11 16:44] LABS: HEMOGLOBIN 11.8 g/dl (12.0-15.5)
[2023-04-11] MEDS: ATORVASTATIN 20 MG TAB PO SCH (22:13)
[2023-04-11] MEDS: LEVEMIR (INSULIN DETEMIR) 1 UNITS/0.01ML SC SCH (22:14)
[2023-04-12] VITALS: BP 135/92; TEMP 97.9; O2SAT 98
[2023-04-12] MEDS: ACETAMINOPHEN 500 MG TAB PO SCH ×5 (00:08→23:56)
[2023-04-12 05:59] LABS: BASO # 0.1 10^3/uL (0.0-0.2); BASO % 0.6 % (0.0-1.0); EOS # 0.4 10^3/uL (0.0-0.5); EOS % 3.9 % (0.0-3.0); HEMATOCRIT 28.8 % (36.0-47.0); LYMPH # 1.9 10^3/uL (1.5-5.0); LYMPH % 20.9 % (24.0-44.0); MEAN CORPUSCULAR HGB CONC 34.7 g/dl (32.0-36.5); MEAN CORPUSCULAR VOLUME 86.5 fl (80.0-96.0); MONO # 0.8 10^3/uL (0.0-0.8); MONO % 8.5 % (2.0-8.0); NEUTROPHILS # 5.9 10^3/uL (1.5-8.5); NEUTROPHILS % 65.7 % (36.0-66.0); PLATELET COUNT, AUTOMATED 133 10^3/uL (150-450); RED BLOOD COUNT 3.33 10^6/uL (4.00-5.40)
[2023-04-12] MEDS: LEVOTHYROXINE 75MCG TABLET (0.075MG) PO SCH (06:20)
[2023-04-12 06:33] LABS: CALCIUM LEVEL 7.7 MG/DL (8.3-10.6); CREATININE FOR GFR 2.87 MG/DL (0.55-1.30); GLOMERULAR FILTRATION RATE 17.3 (>39); POTASSIUM SERUM 3.6 MMOL/L (3.5-5.1)
[2023-04-12] MEDS ORDERED: CETIRIZINE (ZyrTEC) 10 MG TAB PO ONE (07:10)
[2023-04-12] MEDS ORDERED: FLUTICASONE PROP 0.05% NASAL SPRAY 16 GM (FLONASE) NARES ONE (07:10)
[2023-04-12] MEDS: INSULIN LISPRO (NovoLOG) PER UNIT SC SCH ×4 (07:30→20:45)
[2023-04-12 08:00] VITALS: BP 194/86; TEMP 97.3; O2SAT 99
[2023-04-12] MEDS: rOPINIRole 2MG TAB PO SCH ×2 (08:25→20:45)
[2023-04-12] MEDS: NIFEdipine 30MG XL TAB PO SCH (08:25)
[2023-04-12] MEDS: ASPIRIN 81MG ENTERIC TABLET PO SCH (08:25)
[2023-04-12] MEDS: **hydrALAZINE** 50 MG TAB PO SCH ×6 (08:26→20:45)
[2023-04-12] MEDS: FLUTICASONE PROP 0.05% NASAL SPRAY 16 GM (FLONASE) NARES SCH (08:27)
[2023-04-12] MEDS: CALCITRIOL 0.25 MCG CAP (S0169) PO SCH (08:27)
[2023-04-12] MEDS: CARVedilol 12.5 MG TAB PO SCH ×2 (08:27→20:45)
[2023-04-12 11:59] VITALS: BP 136/64; TEMP 98.5; O2SAT 98
[2023-04-12 13:09] VITALS: TEMP 101.6
[2023-04-12 16:54] LABS: C REACTIVE PROTEIN QUANTITATIV < 0.40 MG/DL (<1.0)
[2023-04-12 19:18] VITALS: BP 136/65; TEMP 97.9; O2SAT 99
[2023-04-12] MEDS: LEVEMIR (INSULIN DETEMIR) 1 UNITS/0.01ML SC SCH (20:44)
[2023-04-12] MEDS: ATORVASTATIN 20 MG TAB PO SCH (20:44)
[2023-04-12 23:15] VITALS: BP 135/66; TEMP 97.5; O2SAT 99
[2023-04-13 03:53] VITALS: BP 130/65; TEMP 97.2; O2SAT 98
[2023-04-13] MEDS: LEVOTHYROXINE 75MCG TABLET (0.075MG) PO SCH (06:10)
[2023-04-13] MEDS: ACETAMINOPHEN 500 MG TAB PO SCH ×3 (06:10→17:53)
[2023-04-13 07:25] LABS: BASO # 0.1 10^3/uL (0.0-0.2); BASO % 0.6 % (0.0-1.0); EOS # 0.4 10^3/uL (0.0-0.5); EOS % 4.7 % (0.0-3.0); HEMATOCRIT 32.4 % (36.0-47.0); HEMOGLOBIN 11.1 g/dl (12.0-15.5); LYMPH % 25.2 % (24.0-44.0); MEAN CORPUSCULAR HGB CONC 34.3 g/dl (32.0-36.5); MEAN CORPUSCULAR VOLUME 87.6 fl (80.0-96.0); MONO # 0.5 10^3/uL (0.0-0.8); MONO % 6.9 % (2.0-8.0); NEUTROPHILS # 4.8 10^3/uL (1.5-8.5); NEUTROPHILS % 61.7 % (36.0-66.0); PLATELET COUNT, AUTOMATED 161 10^3/uL (150-450); WHITE BLOOD COUNT 7.9 10^3/uL (4.0-10.0)
[2023-04-13] MEDS: INSULIN LISPRO (NovoLOG) PER UNIT SC SCH ×4 (07:30→19:59)
[2023-04-13 07:45] LABS: CALCIUM LEVEL 8.1 MG/DL (8.3-10.6); CREATININE FOR GFR 3.16 MG/DL (0.55-1.30); GLOMERULAR FILTRATION RATE 15.5 (>39); POTASSIUM SERUM 3.9 MMOL/L (3.5-5.1)
[2023-04-13] MEDS: rOPINIRole 2MG TAB PO SCH ×2 (08:37→20:24)
[2023-04-13] MEDS: CARVedilol 12.5 MG TAB PO SCH ×2 (08:38→20:24)
[2023-04-13] MEDS: ASPIRIN 81MG ENTERIC TABLET PO SCH (08:38)
[2023-04-13] MEDS: CALCITRIOL 0.25 MCG CAP (S0169) PO SCH (08:38)
[2023-04-13] MEDS: NIFEdipine 30MG XL TAB PO SCH (08:38)
[2023-04-13] MEDS: CETIRIZINE (ZyrTEC) 10 MG TAB PO SCH (08:38)
[2023-04-13] MEDS: FLUTICASONE PROP 0.05% NASAL SPRAY 16 GM (FLONASE) NARES SCH (08:39)
[2023-04-13] MEDS: **hydrALAZINE** 50 MG TAB PO SCH ×4 (08:39→20:24)
[2023-04-13 09:57] VITALS: BP 180/88; TEMP 98.3; O2SAT 95
[2023-04-13 10:21] VITALS: BP 144/68
[2023-04-13] MEDS: APIXABAN 5 MG TAB (ELIQUIS) PO SCH ×2 (11:20→20:24)
[2023-04-13 12:00] VITALS: BP 140/60; TEMP 97.7; O2SAT 98
[2023-04-13 16:00] VITALS: BP 136/76; TEMP 97; O2SAT 100
[2023-04-13] MEDS: ATORVASTATIN 20 MG TAB PO SCH (20:24)
[2023-04-13] MEDS: LEVEMIR (INSULIN DETEMIR) 1 UNITS/0.01ML SC SCH (20:25)
[2023-04-14] MEDS: ACETAMINOPHEN 500 MG TAB PO SCH ×4 (00:46→17:26)
[2023-04-14 04:01] VITALS: BP 140/63; TEMP 97.7; O2SAT 99
[2023-04-14 05:52] LABS: BASO # 0.1 10^3/uL (0.0-0.2); BASO % 0.8 % (0.0-1.0); EOS # 0.3 10^3/uL (0.0-0.5); EOS % 3.2 % (0.0-3.0); HEMATOCRIT 32.9 % (36.0-47.0); HEMOGLOBIN 11.1 g/dl (12.0-15.5); LYMPH # 2.2 10^3/uL (1.5-5.0); LYMPH % 21.6 % (24.0-44.0); MEAN CORPUSCULAR HEMOGLOBIN 29.8 pg (27.0-33.0); MEAN CORPUSCULAR HGB CONC 33.7 g/dl (32.0-36.5); MEAN CORPUSCULAR VOLUME 88.2 fl (80.0-96.0); MONO # 0.6 10^3/uL (0.0-0.8); NEUTROPHILS # 6.9 10^3/uL (1.5-8.5); NEUTROPHILS % 67.5 % (36.0-66.0); PLATELET COUNT, AUTOMATED 171 10^3/uL (150-450); RED BLOOD COUNT 3.73 10^6/uL (4.00-5.40); WHITE BLOOD COUNT 10.2 10^3/uL (4.0-10.0)
[2023-04-14] MEDS: LEVOTHYROXINE 75MCG TABLET (0.075MG) PO SCH (06:06)
[2023-04-14 06:08] LABS: CREATININE FOR GFR 3.3 MG/DL (0.55-1.30); GLOMERULAR FILTRATION RATE 14.7 (>39); POTASSIUM SERUM 4.4 MMOL/L (3.5-5.1)
[2023-04-14] MEDS: INSULIN LISPRO (NovoLOG) PER UNIT SC SCH ×4 (07:30→20:31)
[2023-04-14 08:05] LABS: PROCALCITONIN 0.17 ng/ml
[2023-04-14] MEDS: CALCITRIOL 0.25 MCG CAP (S0169) PO SCH (08:28)
[2023-04-14] MEDS: **hydrALAZINE** 50 MG TAB PO SCH ×4 (08:28→20:31)
[2023-04-14] MEDS: CARVedilol 12.5 MG TAB PO SCH ×2 (08:31→20:30)
[2023-04-14] MEDS: NIFEdipine 30MG XL TAB PO SCH (08:32)
[2023-04-14] MEDS: CETIRIZINE (ZyrTEC) 10 MG TAB PO SCH (08:32)
[2023-04-14] MEDS: ASPIRIN 81MG ENTERIC TABLET PO SCH (08:32)
[2023-04-14] MEDS: rOPINIRole 2MG TAB PO SCH ×2 (08:32→20:31)
[2023-04-14 08:33] LABS: C REACTIVE PROTEIN QUANTITATIV < 0.40 MG/DL (<1.0)
[2023-04-14] MEDS: FLUTICASONE PROP 0.05% NASAL SPRAY 16 GM (FLONASE) NARES SCH (08:33)
[2023-04-14 08:53] VITALS: BP 160/82; TEMP 98.4; O2SAT 100
[2023-04-14 16:08] VITALS: BP 162/74; TEMP 97.8; O2SAT 98
[2023-04-14 19:58] VITALS: BP 168/74; TEMP 97.8; O2SAT 96
[2023-04-14] MEDS: ATORVASTATIN 20 MG TAB PO SCH (20:30)
[2023-04-14] MEDS: LEVEMIR (INSULIN DETEMIR) 1 UNITS/0.01ML SC SCH (20:31)
[2023-04-15 04:41] VITALS: BP 164/82; TEMP 98; O2SAT 99
[2023-04-15] MEDS: LEVOTHYROXINE 75MCG TABLET (0.075MG) PO SCH (05:57)
[2023-04-15] MEDS: ACETAMINOPHEN 500 MG TAB PO SCH ×4 (05:58→18:24)
[2023-04-15 06:32] LABS: BASO # 0.1 10^3/uL (0.0-0.2); BASO % 0.4 % (0.0-1.0); EOS # 0.3 10^3/uL (0.0-0.5); EOS % 2.2 % (0.0-3.0); HEMATOCRIT 31.9 % (36.0-47.0); HEMOGLOBIN 10.7 g/dl (12.0-15.5); LYMPH # 2.3 10^3/uL (1.5-5.0); LYMPH % 20.9 % (24.0-44.0); MEAN CORPUSCULAR HEMOGLOBIN 29.4 pg (27.0-33.0); MEAN CORPUSCULAR HGB CONC 33.5 g/dl (32.0-36.5); MEAN CORPUSCULAR VOLUME 87.6 fl (80.0-96.0); MONO # 0.7 10^3/uL (0.0-0.8); MONO % 6.3 % (2.0-8.0); NEUTROPHILS # 7.7 10^3/uL (1.5-8.5); NEUTROPHILS % 69.5 % (36.0-66.0); PLATELET COUNT, AUTOMATED 190 10^3/uL (150-450); RED BLOOD COUNT 3.64 10^6/uL (4.00-5.40); WHITE BLOOD COUNT 11.1 10^3/uL (4.0-10.0)
[2023-04-15] MEDS ORDERED: SODIUM CHLORIDE 0.9% 1000ML IV PRN (06:45)
[2023-04-15] MEDS ORDERED: HEPARIN 1,000UNITS/ML 10ML VIAL (FOR RADIOLOGY & DIALYSIS ONLY) XX SCH (06:45)
[2023-04-15] MEDS ORDERED: HEPARIN 1,000UNITS/ML 10ML VIAL (FOR RADIOLOGY & DIALYSIS ONLY) IV PRN (06:45)
[2023-04-15 06:50] LABS: INR 0.99; PROTHROMBIN TIME 12.8 SECONDS (12.5-14.5)
[2023-04-15 06:51] LABS: PARTIAL THROMBOPLASTIN TIME 28.9 SECONDS (24.8-34.2)
[2023-04-15 07:05] LABS: CALCIUM LEVEL 8.1 MG/DL (8.3-10.6); CREATININE FOR GFR 3.32 MG/DL (0.55-1.30); GLOMERULAR FILTRATION RATE 14.6 (>39); POTASSIUM SERUM 4.1 MMOL/L (3.5-5.1)
[2023-04-15] MEDS: INSULIN LISPRO (NovoLOG) PER UNIT SC SCH ×4 (07:30→21:00)
[2023-04-15 07:34] VITALS: BP 134/67; TEMP 98.2; O2SAT 100
[2023-04-15] MEDS ORDERED: fentaNYL 100 MCG/2 ML INJECTION As Ordered ONE (08:08)
[2023-04-15] MEDS ORDERED: LIDOCAINE W/EPINEPHRINE 1% 20ML VIAL As Ordered ONE (08:08)
[2023-04-15] MEDS ORDERED: HEPARIN 1,000UNITS/ML 10ML VIAL (FOR RADIOLOGY & DIALYSIS ONLY) As Ordered ONE (08:08)
[2023-04-15] MEDS ORDERED: MIDAZOLAM INJ 2MG/2ML VIAL As Ordered ONE (08:08)
[2023-04-15] MEDS ORDERED: VANCOMYCIN 1000MG/20ML VIAL As Ordered ONE (08:58)
[2023-04-15] MEDS ORDERED: VANCOMYCIN HCL 1,000 MG, VIAL MATE ADAPTER 1 EACH in NS 250 ML IV ONE (09:00)
[2023-04-15] MEDS ORDERED: hydrALAZINE 20MG/ML 1ML VIAL As Ordered ONE (09:21)
[2023-04-15 10:13] VITALS: BP 131/60; TEMP 96.9; O2SAT 99
[2023-04-15] MEDS: **hydrALAZINE** 50 MG TAB PO SCH ×4 (10:19→21:17)
[2023-04-15] MEDS ORDERED: hydrALAZINE 20MG/ML 1ML VIAL IV ONE (10:30)
[2023-04-15] MEDS ORDERED: fentaNYL 100 MCG/2 ML INJECTION IV ONE (10:30)
[2023-04-15] MEDS ORDERED: MIDAZOLAM INJ 2MG/2ML VIAL IV ONE (10:30)
[2023-04-15] MEDS: CALCITRIOL 0.25 MCG CAP (S0169) PO SCH (10:33)
[2023-04-15] MEDS: CARVedilol 12.5 MG TAB PO SCH ×2 (10:34→21:16)
[2023-04-15] MEDS: ASPIRIN 81MG ENTERIC TABLET PO SCH (10:35)
[2023-04-15] MEDS: FLUTICASONE PROP 0.05% NASAL SPRAY 16 GM (FLONASE) NARES SCH (10:36)
[2023-04-15] MEDS: CETIRIZINE (ZyrTEC) 10 MG TAB PO SCH (10:36)
[2023-04-15] MEDS: rOPINIRole 2MG TAB PO SCH ×2 (10:36→21:16)
[2023-04-15 14:26] VITALS: BP 141/76; TEMP 98.1; O2SAT 100
[2023-04-15] MEDS: NIFEdipine 30MG XL TAB PO SCH (14:52)
[2023-04-15] MEDS ORDERED: ONDANSETRON 4MG TAB PO PRN (15:00)
[2023-04-15 20:03] VITALS: BP 185/95; TEMP 97.4; O2SAT 100
[2023-04-15] MEDS: ATORVASTATIN 20 MG TAB PO SCH (21:16)
[2023-04-15] MEDS: LEVEMIR (INSULIN DETEMIR) 1 UNITS/0.01ML SC SCH (21:17)
[2023-04-15 21:30] VITALS: BP 146/60; TEMP 97.7; O2SAT 100
[2023-04-16] MEDS: ACETAMINOPHEN 500 MG TAB PO SCH ×4 (01:01→18:08)
[2023-04-16 05:20] VITALS: BP 126/79; TEMP 98.2; O2SAT 98
[2023-04-16] MEDS: LEVOTHYROXINE 75MCG TABLET (0.075MG) PO SCH (05:39)
[2023-04-16 06:29] LABS: BASO # 0.1 10^3/uL (0.0-0.2); BASO % 0.5 % (0.0-1.0); EOS # 0.2 10^3/uL (0.0-0.5); EOS % 1.5 % (0.0-3.0); HEMATOCRIT 34.8 % (36.0-47.0); HEMOGLOBIN 11.8 g/dl (12.0-15.5); LYMPH # 2.5 10^3/uL (1.5-5.0); LYMPH % 23.4 % (24.0-44.0); MEAN CORPUSCULAR HEMOGLOBIN 30.3 pg (27.0-33.0); MEAN CORPUSCULAR HGB CONC 33.9 g/dl (32.0-36.5); MEAN CORPUSCULAR VOLUME 89.2 fl (80.0-96.0); MONO # 0.9 10^3/uL (0.0-0.8); MONO % 8.1 % (2.0-8.0); NEUTROPHILS # 6.9 10^3/uL (1.5-8.5); NEUTROPHILS % 65.6 % (36.0-66.0); PLATELET COUNT, AUTOMATED 179 10^3/uL (150-450); WHITE BLOOD COUNT 10.5 10^3/uL (4.0-10.0)
[2023-04-16 06:48] LABS: CALCIUM LEVEL 8.5 MG/DL (8.3-10.6); CREATININE FOR GFR 2.64 MG/DL (0.55-1.30); POTASSIUM SERUM 4.1 MMOL/L (3.5-5.1)
[2023-04-16] MEDS: INSULIN LISPRO (NovoLOG) PER UNIT SC SCH ×3 (07:30→18:07)
[2023-04-16] MEDS: rOPINIRole 2MG TAB PO SCH (09:27)
[2023-04-16] MEDS: CALCITRIOL 0.25 MCG CAP (S0169) PO SCH (09:27)
[2023-04-16] MEDS: ASPIRIN 81MG ENTERIC TABLET PO SCH (09:27)
[2023-04-16] MEDS: CETIRIZINE (ZyrTEC) 10 MG TAB PO SCH (09:28)
[2023-04-16] MEDS: FLUTICASONE PROP 0.05% NASAL SPRAY 16 GM (FLONASE) NARES SCH (09:29)
[2023-04-16] MEDS: NIFEdipine 30MG XL TAB PO SCH (09:30)
[2023-04-16] MEDS: CARVedilol 12.5 MG TAB PO SCH (09:31)
[2023-04-16] MEDS: **hydrALAZINE** 50 MG TAB PO SCH ×3 (09:31→18:08)
[2023-04-16] MEDS ORDERED: CETI10TA PO (14:26)
[2023-04-16] MEDS ORDERED: CARV12.5 PO (14:26)
[2023-04-16] MEDS ORDERED: LISI20TA33 PO (14:26)
[2023-04-16] MEDS ORDERED: ATOR1TAB21 PO (14:26)
[2023-04-16] MEDS ORDERED: ASPI81TAEC PO (14:26)
[2023-04-16] MEDS ORDERED: LEVO75TA4 PO (14:26)
[2023-04-16] MEDS ORDERED: ELIQ2.5T PO (14:26)
[2023-04-16] MEDS ORDERED: HYDR50TA PO (14:26)
[2023-04-16] MEDS ORDERED: ROPI1TAB73 PO (15:04)
[2023-04-16 18:08] VITALS: BP 148/79
== END 2023-04-16 20:01 | disposition home or self-care (01) | DRG 291 ==
LOC: M ED 12:23 → EDBD 12:23 → EEVIPCON 16:03 → M ED INP 16:03 → M PCU 21:30 → M MSPAV 04-15 21:15
PROVIDERS: ADMIT Internal Medicine; ATTEND Family Medicine
PROC: B246ZZZ Ultrasonography of Right and Left Heart (ICD-10-PCS; 2023-04-07)
PROC: 02HV33Z Insertion of Infusion Device into Superior Vena Cava, Percutaneous Approach (ICD-10-PCS; 2023-04-09)
PROC: 30233K1 Transfusion of Nonautologous Frozen Plasma into Peripheral Vein, Percutaneous Approach (ICD-10-PCS; 2023-04-10)
PROC: 30233R1 Transfusion of Nonautologous Platelets into Peripheral Vein, Percutaneous Approach (ICD-10-PCS; 2023-04-10)
PROC: 5A1D70Z Performance of Urinary Filtration, Intermittent, Less than 6 Hours Per Day (ICD-10-PCS; 2023-04-10)
PROC: 30233N1 Transfusion of Nonautologous Red Blood Cells into Peripheral Vein, Percutaneous Approach (ICD-10-PCS; principal; 2023-04-11)
PROC: 0JH63XZ Insertion of Tunneled Vascular Access Device into Chest Subcutaneous Tissue and Fascia, Percutaneous Approach (ICD-10-PCS; 2023-04-15)
DX: I13.2 Hypertensive heart and chronic kidney disease with heart failure and with stage 5 chronic kidney disease, or end stage renal disease (principal); I50.33 Acute on chronic diastolic (congestive) heart failure; N18.6 End stage renal disease; T82.590A Other mechanical complication of surgically created arteriovenous fistula, initial encounter; D62 Acute posthemorrhagic anemia; D68.32 Hemorrhagic disorder due to extrinsic circulating anticoagulants; I16.0 Hypertensive urgency; I25.10 Atherosclerotic heart disease of native coronary artery without angina pectoris; E03.9 Hypothyroidism, unspecified; I48.0 Paroxysmal atrial fibrillation; I73.9 Peripheral vascular disease, unspecified; J44.9 Chronic obstructive pulmonary disease, unspecified; G47.33 Obstructive sleep apnea (adult) (pediatric); E11.22 Type 2 diabetes mellitus with diabetic chronic kidney disease; E11.51 Type 2 diabetes mellitus with diabetic peripheral angiopathy without gangrene; E11.42 Type 2 diabetes mellitus with diabetic polyneuropathy; G25.81 Restless legs syndrome; F41.9 Anxiety disorder, unspecified; M25.511 Pain in right shoulder; M54.9 Dorsalgia, unspecified; F32.A Depression, unspecified; E55.9 Vitamin D deficiency, unspecified; F03.90 Unspecified dementia, unspecified severity, without behavioral disturbance, psychotic disturbance, mood disturbance, and anxiety; Z90.49 Acquired absence of other specified parts of digestive tract; Z89.429 Acquired absence of other toe(s), unspecified side; Z95.5 Presence of coronary angioplasty implant and graft; Z79.01 Long term (current) use of anticoagulants; Z95.2 Presence of prosthetic heart valve; Z99.81 Dependence on supplemental oxygen; Z79.4 Long term (current) use of insulin; Z79.899 Other long term (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 therapy; Z88.0 Allergy status to penicillin; Z95.1 Presence of aortocoronary bypass graft; Z66 Do not resuscitate; Z79.02 Long term (current) use of antithrombotics/antiplatelets

== ENCOUNTER → 2023-04-25 | Outpatient (CLI) | payer OTHER, MEDICAID ==
[~2023-04-25] MED LIST changes: +ASPI81TAEC PO; +ATOR1TAB21 PO; +CETI10TA PO; +ELIQ2.5T PO; +HYDR50TA PO; +LEVO75TA4 PO; +LISI20TA33 PO; +MULT400T10 PO; +NIFE90TA46 PO; +OMEP40CA5 PO; +VITA100093 PO
== END ==
LOC: M RAD 13:11
PROVIDERS: ATTEND Surgery Vascular Surgery
DX: N18.6 End stage renal disease (principal); R22.33 Localized swelling, mass and lump, upper limb, bilateral

== ENCOUNTER 2023-06-02 00:14 | Emergency (ER) | payer OTHER, MEDICAID ==
[~2023-06-02] VITALS: Ht 162.6 cm; Wt 102.2 kg
[2023-06-02 01:03] LABS: BASO % 0.4 % (0.0-1.0); EOS # 0.3 10^3/uL (0.0-0.5); EOS % 2.8 % (0.0-3.0); HEMATOCRIT 24.2 % (36.0-47.0); LYMPH # 2.3 10^3/uL (1.5-5.0); LYMPH % 24.7 % (24.0-44.0); MEAN CORPUSCULAR HEMOGLOBIN 32.3 pg (27.0-33.0); MEAN CORPUSCULAR HGB CONC 33.1 g/dl (32.0-36.5); MEAN CORPUSCULAR VOLUME 97.6 fl (80.0-96.0); MONO # 0.9 10^3/uL (0.0-0.8); MONO % 9.4 % (2.0-8.0); NEUTROPHILS # 5.8 10^3/uL (1.5-8.5); NEUTROPHILS % 61.8 % (36.0-66.0); PLATELET COUNT, AUTOMATED 184 10^3/uL (150-450); RED BLOOD COUNT 2.48 10^6/uL (4.00-5.40); WHITE BLOOD COUNT 9.4 10^3/uL (4.0-10.0)
[2023-06-02] MEDS ORDERED: GABA-284 PO (01:13)
[2023-06-02] MEDS ORDERED: TORS100T PO (01:13)
[2023-06-02 01:18] LABS: INR 1.05; PROTHROMBIN TIME 13.4 SECONDS (12.5-14.5)
[2023-06-02 01:26] LABS: C REACTIVE PROTEIN QUANTITATIV 0.4 MG/DL (<1.0)
[2023-06-02 01:27] LABS: CALCIUM LEVEL 7.8 MG/DL (8.3-10.6); CREATININE FOR GFR 3.56 MG/DL (0.55-1.30); GLOMERULAR FILTRATION RATE 13.5 (>39); POTASSIUM SERUM 4.9 MMOL/L (3.5-5.1)
[2023-06-02] MEDS ORDERED: rOPINIRole 2MG TAB PO STA (05:44)
[2023-06-02] MEDS ORDERED: GABAPENTIN 400MG CAP PO ONE (05:45)
[2023-06-02] MEDS ORDERED: MORPHINE 2 MG/ML 1ML VIAL IV ONE (05:45)
[2023-06-02] MEDS ORDERED: **hydrALAZINE** 10 MG TAB PO ONE (06:15)
[2023-06-02] MEDS ORDERED: hydrALAZINE 20MG/ML 1ML VIAL IV STA (06:15)
[2023-06-02] MEDS ORDERED: CARVedilol 12.5 MG TAB PO ONE (06:15)
[2023-06-02 06:23] VITALS: BP 218/84
[2023-06-02 09:23] VITALS: BP 149/67; TEMP 96.8; O2SAT 100
== END 2023-06-02 09:28 | disposition home or self-care (01) ==
LOC: M ED 00:14 → EEVIPCON 00:14 → EDBD 00:14 → M ED 09:28
DX: E11.40 Type 2 diabetes mellitus with diabetic neuropathy, unspecified (principal); I10 Essential (primary) hypertension; N18.6 End stage renal disease; Z99.2 Dependence on renal dialysis; Z95.1 Presence of aortocoronary bypass graft; Z79.01 Long term (current) use of anticoagulants; Z79.4 Long term (current) use of insulin; Z79.899 Other long term (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 therapy; Z88.0 Allergy status to penicillin
CPT/HCPCS: 73630; 80048; 83605; 85025; 85610; 86140; 87040; 87070; 87077; 87186; 87205; 87486; 87581; 87633; 87798; 93041; 94760; 96374; 96375; 99285; J0360

== ENCOUNTER 2023-06-09 23:19 | Emergency (ER) | payer OTHER, MEDICAID ==
[~2023-06-09] VITALS: Ht 154.9 cm; Wt 89.1 kg
[~2023-06-09 23:19] MED LIST changes: -CEFD300C41 PO; +CEFD300C42 PO
[2023-06-09] MEDS ORDERED: ACET-910 PO (23:53)
[2023-06-09] MEDS ORDERED: LIDO1PAD (23:54)
[2023-06-10] MEDS ORDERED: GABAPENTIN 300 MG CAP PO ONE (03:40)
[2023-06-10] MEDS ORDERED: HYDROcodone/APAP LIQUID 7.5-325MG 15ML UDC (LORTAB ELIXIR) PO ONE (03:40)
[2023-06-10] MEDS ORDERED: GABA-284 PO (06:03)
[2023-06-10 06:34] VITALS: BP 148/67; TEMP 98.4; O2SAT 97
== END 2023-06-10 06:50 | disposition home or self-care (01) ==
LOC: M ED 23:19 → EDBD 23:19 → M ED 06-10 06:50
DX: E11.43 Type 2 diabetes mellitus with diabetic autonomic (poly)neuropathy (principal); I11.0 Hypertensive heart disease with heart failure; I50.9 Heart failure, unspecified; I25.10 Atherosclerotic heart disease of native coronary artery without angina pectoris; E78.5 Hyperlipidemia, unspecified; E07.9 Disorder of thyroid, unspecified; Z95.1 Presence of aortocoronary bypass graft; Z95.5 Presence of coronary angioplasty implant and graft; Z79.899 Other long term (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 therapy; Z90.01 Acquired absence of eye; Z88.0 Allergy status to penicillin

== ENCOUNTER 2023-06-26 05:46 | Emergency (ER) | payer OTHER, MEDICAID ==
[2023-06-26] VITALS (9 sets, daily range): BP systolic 130–220; BP diastolic 75–98; TEMP 97–98; O2SAT 91–100
[~2023-06-26] VITALS: Ht 154.9 cm; Wt 79.3 kg
[~2023-06-26 05:46] MED LIST changes: +ACET-910 PO; +LIDO1PAD TOP
[2023-06-26] MEDS ORDERED: ACETAMINOPHEN 500 MG TAB PO ONE (07:30)
[2023-06-26] MEDS ORDERED: CLIN-250 PO (08:03)
[2023-06-26 09:35] LABS: BASO # 0.1 10^3/uL (0.0-0.2); BASO % 0.8 % (0.0-1.0); EOS # 0.3 10^3/uL (0.0-0.5); EOS % 3.2 % (0.0-3.0); HEMATOCRIT 22.1 % (36.0-47.0); HEMOGLOBIN 7.2 g/dl (12.0-15.5); LYMPH # 2.3 10^3/uL (1.5-5.0); LYMPH % 26.1 % (24.0-44.0); MEAN CORPUSCULAR HEMOGLOBIN 31.7 pg (27.0-33.0); MEAN CORPUSCULAR HGB CONC 32.6 g/dl (32.0-36.5); MEAN CORPUSCULAR VOLUME 97.4 fl (80.0-96.0); MONO # 0.7 10^3/uL (0.0-0.8); MONO % 8.5 % (2.0-8.0); NEUTROPHILS # 5.3 10^3/uL (1.5-8.5); NEUTROPHILS % 60.9 % (36.0-66.0); PLATELET COUNT, AUTOMATED 232 10^3/uL (150-450); RED BLOOD COUNT 2.27 10^6/uL (4.00-5.40); WHITE BLOOD COUNT 8.7 10^3/uL (4.0-10.0)
[2023-06-26 10:02] LABS: ALBUMIN 2.2 G/DL (3.2-5.2); BILIRUBIN,TOTAL 0.2 MG/DL (0.3-1.2); CALCIUM LEVEL 8.6 MG/DL (8.3-10.6); CREATININE FOR GFR 4.7 MG/DL (0.55-1.30); GLOMERULAR FILTRATION RATE 9.8 (>39); POTASSIUM SERUM 5.2 MMOL/L (3.5-5.1)
[2023-06-26 10:09] LABS: INR 1.1; PROTHROMBIN TIME 13.9 SECONDS (12.5-14.5)
[2023-06-26] MEDS: MORPHINE 2 MG/ML 1ML VIAL IV PRN ×2 (10:19→16:49)
[2023-06-26] MEDS ORDERED: ISOVUE-370 76% 100ML VIAL As Ordered ONE (11:35)
[2023-06-26] MEDS ORDERED: CARV12.5 PO (12:16)
[2023-06-26] MEDS ORDERED: SENN-134 PO (12:16)
[2023-06-26] MEDS ORDERED: HYDR100T PO (12:16)
[2023-06-26] MEDS ORDERED: ROPI2TAB46 PO (12:16)
[2023-06-26] MEDS ORDERED: HYDR-3363 PO (12:16)
[2023-06-26] MEDS ORDERED: BRIL90TA PO (12:16)
[2023-06-26] MEDS ORDERED: ATOR80TA59 PO (12:16)
[2023-06-26] MEDS ORDERED: GABA-1171 PO (12:16)
[2023-06-26] MEDS ORDERED: LANTINJ4 SC (12:16)
[2023-06-26] MEDS ORDERED: HOME MED LIST COMPLETE! XX SCH (12:20)
[2023-06-26] MEDS ORDERED: MED REC IN PROGRESS XX SCH (12:20)
[2023-06-26] MEDS ORDERED: CARVedilol 12.5 MG TAB PO ONE (13:50)
[2023-06-26] MEDS ORDERED: **hydrALAZINE** 50 MG TAB PO ONE (13:50)
[2023-06-26] MEDS ORDERED: NIFEdipine 30MG XL TAB PO SCH (17:45)
[2023-06-26] MEDS ORDERED: MORPHINE 4 MG/ML 1ML VIAL IV ONE (20:30)
== END 2023-06-26 20:42 | disposition short-term general hospital (02) ==
LOC: M ED 05:46
DX: L97.509 Non-pressure chronic ulcer of other part of unspecified foot with unspecified severity (principal); D64.9 Anemia, unspecified; N18.6 End stage renal disease; I25.10 Atherosclerotic heart disease of native coronary artery without angina pectoris; I48.91 Unspecified atrial fibrillation; I11.0 Hypertensive heart disease with heart failure; J44.9 Chronic obstructive pulmonary disease, unspecified; G47.33 Obstructive sleep apnea (adult) (pediatric); E11.51 Type 2 diabetes mellitus with diabetic peripheral angiopathy without gangrene; F41.9 Anxiety disorder, unspecified; F32.A Depression, unspecified; E55.9 Vitamin D deficiency, unspecified; E03.9 Hypothyroidism, unspecified; G25.81 Restless legs syndrome; Z89.422 Acquired absence of other left toe(s); Z91.199 Patient's noncompliance with other medical treatment and regimen due to unspecified reason; Z99.2 Dependence on renal dialysis; Z95.5 Presence of coronary angioplasty implant and graft; Z95.1 Presence of aortocoronary bypass graft; Z84.1 Family history of disorders of kidney and ureter; Z82.49 Family history of ischemic heart disease and other diseases of the circulatory system; Z82.3 Family history of stroke; Z96.0 Presence of urogenital implants; Z79.01 Long term (current) use of anticoagulants; Z79.82 Long term (current) use of aspirin; Z79.4 Long term (current) use of insulin; Z79.899 Other long term (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 therapy; Z88.0 Allergy status to penicillin
CPT/HCPCS: 36430; 73630; 75635; 80047; 80053; 83605; 83735; 85025; 85610; 86850; 86900; 86901; 86920; 87635; 96374; 96376; 99285; P9016; Q9967

== ENCOUNTER 2023-07-28 06:21 | Emergency (ER) | payer OTHER, MEDICAID ==
[~2023-07-28] VITALS: Ht 162.6 cm; Wt 97.1 kg
[~2023-07-28 06:21] MED LIST changes: +ATOR80TA59 PO; +BRIL90TA PO; +CEFD1CAP9 PO; -CEFD300C42 PO; +CLIN-250 PO; +HYDR-3363 PO; +HYDR100T PO; -INSU100I36 SC; +INSU100I60 SC; +ROPI2TAB46 PO; +SENN-134 PO
[2023-07-28 07:01] LABS: BASO # 0.1 10^3/uL (0.0-0.2); BASO % 0.6 % (0.0-1.0); EOS # 0.4 10^3/uL (0.0-0.5); EOS % 4.1 % (0.0-3.0); HEMATOCRIT 30.3 % (36.0-47.0); HEMOGLOBIN 10.1 g/dl (12.0-15.5); LYMPH # 1.7 10^3/uL (1.5-5.0); LYMPH % 17.2 % (24.0-44.0); MEAN CORPUSCULAR HEMOGLOBIN 30.9 pg (27.0-33.0); MEAN CORPUSCULAR HGB CONC 33.3 g/dl (32.0-36.5); MEAN CORPUSCULAR VOLUME 92.7 fl (80.0-96.0); MONO % 9.6 % (2.0-8.0); NEUTROPHILS # 6.9 10^3/uL (1.5-8.5); NEUTROPHILS % 67.9 % (36.0-66.0); PLATELET COUNT, AUTOMATED 221 10^3/uL (150-450); RED BLOOD COUNT 3.27 10^6/uL (4.00-5.40); WHITE BLOOD COUNT 10.1 10^3/uL (4.0-10.0)
[2023-07-28] MEDS ORDERED: LIDOCAINE 2% 5ML JELLY UROJET TOP ONE (07:15)
[2023-07-28 07:27] LABS: ALBUMIN 2.3 G/DL (3.2-5.2); ALKALINE PHOSPHATASE 94 U/L (46-116); ALT/SGPT 19 U/L (7.0-40); AST/SGOT 36 U/L (<34); BILIRUBIN,TOTAL < 0.2 MG/DL (0.3-1.2); BLOOD UREA NITROGEN 49 MG/DL (9-23); CALCIUM LEVEL 9.1 MG/DL (8.3-10.6); CARBON DIOXIDE LEVEL 24 MMOL/L (20-31); CHLORIDE LEVEL 99 MMOL/L (98-107); CREATININE FOR GFR 4.29 MG/DL (0.55-1.30); GLOMERULAR FILTRATION RATE 10.9 (>39); GLUCOSE, FASTING 277 MG/DL (74-106); POTASSIUM SERUM 4.9 MMOL/L (3.5-5.1); SODIUM LEVEL 133 MMOL/L (136-145); TOTAL PROTEIN 5.7 G/DL (5.7-8.2)
[2023-07-28] MEDS ORDERED: HumuLIN R (REGULAR) INSULIN (NovoLIN R) **100U/ML** PER UNIT IV ONE (13:50)
[2023-07-28] MEDS ORDERED: NS 500 ML IV ONE (13:50)
[2023-07-28] MEDS: NS 1,000 ML IV ONE ×2 (13:50→14:05)
[2023-07-28] MEDS ORDERED: HumuLIN R (REGULAR) INSULIN (NovoLIN R) **100U/ML** PER UNIT SC ONE (14:15)
[2023-07-28 15:35] VITALS: BP 186/88; TEMP 96.6; O2SAT 100
== END 2023-07-28 16:14 | disposition home or self-care (01) ==
LOC: EDBD 06:21 → M ED 06:21
DX: R53.1 Weakness (principal); I10 Essential (primary) hypertension; I25.10 Atherosclerotic heart disease of native coronary artery without angina pectoris; I25.2 Old myocardial infarction; E11.9 Type 2 diabetes mellitus without complications; F41.9 Anxiety disorder, unspecified; F32.A Depression, unspecified; J44.9 Chronic obstructive pulmonary disease, unspecified; Z86.73 Personal history of transient ischemic attack (TIA), and cerebral infarction without residual deficits; N18.6 End stage renal disease; D50.9 Iron deficiency anemia, unspecified; Z95.5 Presence of coronary angioplasty implant and graft; Z79.4 Long term (current) use of insulin; Z79.82 Long term (current) use of aspirin; Z79.899 Other long term (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 therapy; Z88.0 Allergy status to penicillin
CPT/HCPCS: 51701; 80053; 81001; 83605; 85025; 87040; 87486; 87581; 87633; 87798; 93005; 99285; J1815

== ENCOUNTER 2023-09-08 13:24 | Inpatient (IN) | payer MEDICARE, MEDICAID ==
[~2023-09-08] VITALS: Ht 154.9 cm; Wt 65.7 kg
[~2023-09-08 13:24] MED LIST changes: +HYDR-161 PO; -HYDR10TAB PO; -HYDR50TA PO; +HYDR50TA47 PO; +IRBE300T25 PO; -IRBE300T7 PO
[2023-09-08 16:37] LABS: BASO # 0.1 10^3/uL (0.0-0.2); BASO % 0.4 % (0.0-1.0); EOS # 0.2 10^3/uL (0.0-0.5); EOS % 1.5 % (0.0-3.0); LYMPH # 1.9 10^3/uL (1.5-5.0); LYMPH % 16.5 % (24.0-44.0); MEAN CORPUSCULAR HGB CONC 31.8 g/dl (32.0-36.5); MEAN CORPUSCULAR VOLUME 97.3 fl (80.0-96.0); MONO # 0.8 10^3/uL (0.0-0.8); MONO % 6.7 % (2.0-8.0); NEUTROPHILS # 8.6 10^3/uL (1.5-8.5); NEUTROPHILS % 74.4 % (36.0-66.0); PLATELET COUNT, AUTOMATED 173 10^3/uL (150-450); RED BLOOD COUNT 1.84 10^6/uL (4.00-5.40); WHITE BLOOD COUNT 11.6 10^3/uL (4.0-10.0)
[2023-09-08 16:41] LABS: HEMATOCRIT 17.9 % (36.0-47.0); HEMOGLOBIN 5.7 g/dl (12.0-15.5)
[2023-09-08 17:04] LABS: CALCIUM LEVEL 8.8 MG/DL (8.3-10.6); CREATININE FOR GFR 5.12 MG/DL (0.55-1.30); GLOMERULAR FILTRATION RATE 8.9 (>39); POTASSIUM SERUM 4.3 MMOL/L (3.5-5.1)
[2023-09-08 17:06] LABS: FREE T4 0.83 NG/DL (0.89-1.76); THYROID STIMULATING HORMONE 1.009 uIU/ML (0.55-4.78)
[2023-09-08] MEDS ORDERED: MED REC IN PROGRESS XX SCH (17:40)
[2023-09-08] MEDS ORDERED: HOME MED LIST COMPLETE! XX SCH (18:20)
[2023-09-08] MEDS ORDERED: GLUCAGON INJ 1MG VIAL SC PRN (20:05)
[2023-09-08] MEDS ORDERED: GLUCOSE 4GM CHEW TABLET PO PRN (20:05)
[2023-09-08] MEDS ORDERED: DEXTROSE 50% 50ML SYRINGE IV PRN (20:05)
[2023-09-08 20:38] VITALS: BP 146/65; TEMP 97; O2SAT 100
[2023-09-08 20:54] VITALS: BP 132/79; TEMP 97.4; O2SAT 95
[2023-09-08 21:39] VITALS: BP 181/77; TEMP 97.2; O2SAT 95
[2023-09-08] MEDS: FERROUS SULFATE 325MG TAB PO SCH (22:30)
[2023-09-08] MEDS: ATORVASTATIN 20 MG TAB PO SCH (22:30)
[2023-09-08] MEDS: PANTOPRAZOLE 40MG VIAL IV SCH (22:31)
[2023-09-08] MEDS: CARVedilol 12.5 MG TAB PO SCH (22:31)
[2023-09-08] MEDS: SUCRALFATE SUSP 1GM/10ML UD PO SCH (22:32)
[2023-09-08 22:39] VITALS: BP 181/73; TEMP 98.1; O2SAT 95
[2023-09-08] MEDS: rOPINIRole 1MG TAB PO SCH (22:54)
[2023-09-08 22:55] VITALS: BP 193/86; TEMP 98.2; O2SAT 98
[2023-09-09] VITALS (7 sets, daily range): BP systolic 124–170; BP diastolic 62–78; TEMP 97.9–98.2; O2SAT 94–100
[2023-09-09 05:43] LABS: BASO # 0.1 10^3/uL (0.0-0.2); BASO % 0.5 % (0.0-1.0); EOS # 0.2 10^3/uL (0.0-0.5); HEMATOCRIT 26.9 % (36.0-47.0); LYMPH # 1.5 10^3/uL (1.5-5.0); LYMPH % 14.3 % (24.0-44.0); MEAN CORPUSCULAR HEMOGLOBIN 30.3 pg (27.0-33.0); MEAN CORPUSCULAR HGB CONC 32.7 g/dl (32.0-36.5); MEAN CORPUSCULAR VOLUME 92.8 fl (80.0-96.0); MONO # 0.7 10^3/uL (0.0-0.8); MONO % 6.6 % (2.0-8.0); NEUTROPHILS # 8.2 10^3/uL (1.5-8.5); NEUTROPHILS % 76.2 % (36.0-66.0); PLATELET COUNT, AUTOMATED 163 10^3/uL (150-450); WHITE BLOOD COUNT 10.7 10^3/uL (4.0-10.0)
[2023-09-09 05:49] LABS: HEMOGLOBIN 8.8 g/dl (12.0-15.5)
[2023-09-09 06:17] LABS: CALCIUM LEVEL 8.7 MG/DL (8.3-10.6); CREATININE FOR GFR 5.34 MG/DL (0.55-1.30); GLOMERULAR FILTRATION RATE 8.4 (>39); POTASSIUM SERUM 4.6 MMOL/L (3.5-5.1)
[2023-09-09] MEDS ORDERED: ACETAMINOPHEN TAB 650MG DOSE (2X325MG) PO ONE (07:00)
[2023-09-09] MEDS: CARVedilol 12.5 MG TAB PO SCH (08:23)
[2023-09-09] MEDS: ASPIRIN 81MG ENTERIC TABLET PO SCH (08:23)
[2023-09-09] MEDS: FERROUS SULFATE 325MG TAB PO SCH (08:23)
[2023-09-09] MEDS: PANTOPRAZOLE 40MG VIAL IV SCH ×2 (08:23→21:26)
[2023-09-09] MEDS: INSULIN LISPRO (NovoLOG) PER UNIT SC SCH ×3 (08:23→21:16)
[2023-09-09] MEDS: SUCRALFATE SUSP 1GM/10ML UD PO SCH (08:23)
[2023-09-09] MEDS: rOPINIRole 1MG TAB PO SCH ×2 (09:56→21:27)
[2023-09-09] MEDS: CALCITRIOL 0.25 MCG CAP (S0169) PO SCH (09:56)
[2023-09-09] MEDS: NIFEdipine 30MG XL TAB PO SCH (09:57)
[2023-09-09] MEDS ORDERED: HEPARIN 1,000UNITS/ML 10ML VIAL (FOR RADIOLOGY & DIALYSIS ONLY) IV PRN (13:20)
[2023-09-09] MEDS ORDERED: SODIUM CHLORIDE 0.9% 1000ML IV PRN (13:20)
[2023-09-09] MEDS ORDERED: DARBEPOETIN 100MCG/0.5ML *DIALYSIS* SYRINGE IV SCH (13:20)
[2023-09-09] MEDS ORDERED: BISACODYL 5MG TAB PO ONE (18:00)
[2023-09-09] MEDS ORDERED: GOLYTELY SOLN 4000 ML BTL PO ONE (19:00)
[2023-09-09] MEDS: ATORVASTATIN 20 MG TAB PO SCH (21:27)
[2023-09-09] MEDS: CARVedilol 6.25 MG TAB PO SCH (21:28)
[2023-09-10 05:00] VITALS: BP 160/74; TEMP 98.4; O2SAT 100
[2023-09-10 06:12] LABS: BASO % 0.5 % (0.0-1.0); EOS # 0.1 10^3/uL (0.0-0.5); EOS % 1.3 % (0.0-3.0); HEMATOCRIT 25.3 % (36.0-47.0); HEMOGLOBIN 8.3 g/dl (12.0-15.5); LYMPH # 1.6 10^3/uL (1.5-5.0); LYMPH % 18.9 % (24.0-44.0); MEAN CORPUSCULAR HEMOGLOBIN 30.4 pg (27.0-33.0); MEAN CORPUSCULAR HGB CONC 32.8 g/dl (32.0-36.5); MEAN CORPUSCULAR VOLUME 92.7 fl (80.0-96.0); MONO # 0.7 10^3/uL (0.0-0.8); MONO % 8.4 % (2.0-8.0); NEUTROPHILS % 70.5 % (36.0-66.0); PLATELET COUNT, AUTOMATED 177 10^3/uL (150-450); RED BLOOD COUNT 2.73 10^6/uL (4.00-5.40); WHITE BLOOD COUNT 8.5 10^3/uL (4.0-10.0)
[2023-09-10 06:36] LABS: CALCIUM LEVEL 8.3 MG/DL (8.3-10.6); CREATININE FOR GFR 3.04 MG/DL (0.55-1.30); GLOMERULAR FILTRATION RATE 16.2 (>39); POTASSIUM SERUM 3.9 MMOL/L (3.5-5.1)
[2023-09-10] MEDS: INSULIN LISPRO (NovoLOG) PER UNIT SC SCH ×3 (07:11→18:02)
[2023-09-10] MEDS: SODIUM CHLORIDE 0.9% INJ 10 ML SYR IV SCH (09:00)
[2023-09-10 09:39] VITALS: BP 118/52
[2023-09-10] MEDS: rOPINIRole 1MG TAB PO SCH ×2 (09:51→21:47)
[2023-09-10] MEDS: PANTOPRAZOLE 40MG VIAL IV SCH ×2 (09:51→21:47)
[2023-09-10] MEDS: CALCITRIOL 0.25 MCG CAP (S0169) PO SCH (09:51)
[2023-09-10] MEDS: ASPIRIN 81MG ENTERIC TABLET PO SCH (09:51)
[2023-09-10] MEDS: CARVedilol 6.25 MG TAB PO SCH ×2 (09:51→21:47)
[2023-09-10] MEDS: NIFEdipine 30MG XL TAB PO SCH (09:51)
[2023-09-10] MEDS ORDERED: SODIUM CHLORIDE 0.9% INJ 10 ML SYR IV PRN ×2 (11:00→11:20)
[2023-09-10] MEDS ORDERED: SODIUM CHLORIDE 0.9% INJ 10 ML SYR IV SCH (11:00)
[2023-09-10 14:00] VITALS: BP 147/70; TEMP 97.9; O2SAT 99
[2023-09-10 21:00] VITALS: BP 118/58; TEMP 97.5; O2SAT 99
[2023-09-10] MEDS: ATORVASTATIN 20 MG TAB PO SCH (21:48)
[2023-09-11] VITALS (7 sets, daily range): BP systolic 113–171; BP diastolic 46–69; TEMP 97.5–98.2; O2SAT 98–100
[2023-09-11] MEDS ORDERED: SODIUM CHLORIDE 0.9% 1000ML IV PRN (06:00)
[2023-09-11] MEDS ORDERED: HEPARIN 1,000UNITS/ML 10ML VIAL (FOR RADIOLOGY & DIALYSIS ONLY) IV PRN (06:00)
[2023-09-11] MEDS: rOPINIRole 1MG TAB PO SCH ×2 (06:19→20:53)
[2023-09-11] MEDS: PANTOPRAZOLE 40MG VIAL IV SCH ×2 (06:19→20:53)
[2023-09-11] MEDS: NIFEdipine 30MG XL TAB PO SCH (06:20)
[2023-09-11] MEDS: CARVedilol 6.25 MG TAB PO SCH ×2 (06:20→20:54)
[2023-09-11] MEDS: ASPIRIN 81MG ENTERIC TABLET PO SCH (06:20)
[2023-09-11] MEDS: SODIUM CHLORIDE 0.9% INJ 10 ML SYR IV SCH (06:21)
[2023-09-11] MEDS: CALCITRIOL 0.25 MCG CAP (S0169) PO SCH (06:21)
[2023-09-11 06:26] LABS: BASO % 0.7 % (0.0-1.0); EOS # 0.2 10^3/uL (0.0-0.5); EOS % 2.6 % (0.0-3.0); HEMATOCRIT 24.6 % (36.0-47.0); HEMOGLOBIN 7.9 g/dl (12.0-15.5); LYMPH # 1.8 10^3/uL (1.5-5.0); LYMPH % 31.2 % (24.0-44.0); MEAN CORPUSCULAR HEMOGLOBIN 30.5 pg (27.0-33.0); MEAN CORPUSCULAR HGB CONC 32.1 g/dl (32.0-36.5); MONO # 0.7 10^3/uL (0.0-0.8); MONO % 11.8 % (2.0-8.0); NEUTROPHILS # 3.1 10^3/uL (1.5-8.5); NEUTROPHILS % 53.4 % (36.0-66.0); PLATELET COUNT, AUTOMATED 183 10^3/uL (150-450); RED BLOOD COUNT 2.59 10^6/uL (4.00-5.40); WHITE BLOOD COUNT 5.9 10^3/uL (4.0-10.0)
[2023-09-11 06:59] LABS: CALCIUM LEVEL 8.9 MG/DL (8.3-10.6); CREATININE FOR GFR 4.31 MG/DL (0.55-1.30); GLOMERULAR FILTRATION RATE 10.8 (>39); POTASSIUM SERUM 3.2 MMOL/L (3.5-5.1)
[2023-09-11] MEDS: INSULIN LISPRO (NovoLOG) PER UNIT SC SCH ×3 (07:04→16:41)
[2023-09-11 09:36] LABS: HEMATOCRIT 23.5 % (36.0-47.0); HEMOGLOBIN 7.6 g/dl (12.0-15.5)
[2023-09-11 18:44] LABS: HEMATOCRIT 32.5 % (36.0-47.0)
[2023-09-11 18:51] LABS: HEMOGLOBIN 10.2 g/dl (12.0-15.5)
[2023-09-11] MEDS ORDERED: GOLYTELY SOLN 4000 ML BTL PO ONE (19:00)
[2023-09-11] MEDS: ATORVASTATIN 20 MG TAB PO SCH (20:54)
[2023-09-12] VITALS (10 sets, daily range): BP systolic 128–185; BP diastolic 52–86; TEMP 97–98.1; O2SAT 95–100
[2023-09-12 07:05] LABS: BASO % 0.6 % (0.0-1.0); EOS # 0.1 10^3/uL (0.0-0.5); HEMATOCRIT 29.1 % (36.0-47.0); HEMOGLOBIN 9.3 g/dl (12.0-15.5); LYMPH # 1.8 10^3/uL (1.5-5.0); LYMPH % 26.6 % (24.0-44.0); MEAN CORPUSCULAR HEMOGLOBIN 29.5 pg (27.0-33.0); MEAN CORPUSCULAR VOLUME 92.4 fl (80.0-96.0); MONO # 0.8 10^3/uL (0.0-0.8); MONO % 11.3 % (2.0-8.0); NEUTROPHILS % 58.9 % (36.0-66.0); PLATELET COUNT, AUTOMATED 171 10^3/uL (150-450); RED BLOOD COUNT 3.15 10^6/uL (4.00-5.40); WHITE BLOOD COUNT 6.8 10^3/uL (4.0-10.0)
[2023-09-12] MEDS: INSULIN LISPRO (NovoLOG) PER UNIT SC SCH ×3 (07:30→17:35)
[2023-09-12 07:32] LABS: CALCIUM LEVEL 8.4 MG/DL (8.3-10.6); CREATININE FOR GFR 2.67 MG/DL (0.55-1.30); GLOMERULAR FILTRATION RATE 18.8 (>39); POTASSIUM SERUM 3.6 MMOL/L (3.5-5.1)
[2023-09-12] MEDS: NIFEdipine 30MG XL TAB PO SCH (08:14)
[2023-09-12] MEDS: CARVedilol 6.25 MG TAB PO SCH ×2 (08:14→20:06)
[2023-09-12] MEDS: SODIUM CHLORIDE 0.9% INJ 10 ML SYR IV SCH (08:15)
[2023-09-12] MEDS: ASPIRIN 81MG ENTERIC TABLET PO SCH (08:15)
[2023-09-12] MEDS: CALCITRIOL 0.25 MCG CAP (S0169) PO SCH (08:16)
[2023-09-12] MEDS: rOPINIRole 1MG TAB PO SCH ×2 (08:16→20:06)
[2023-09-12] MEDS ORDERED: cloNIDine 0.2 MG TAB PO ONE (09:15)
[2023-09-12] MEDS ORDERED: NITROGLYCERIN 2% OINT 1 GM *U/D* PKT TOP ONE (09:15)
[2023-09-12] MEDS: PANTOPRAZOLE 40MG VIAL IV SCH ×2 (09:37→20:05)
[2023-09-12] MEDS ORDERED: LIDOCAINE 2% 100MG/5ML SDV (FOR ANES.) As Ordered ONE (11:51)
[2023-09-12] MEDS ORDERED: propofoL 200 MG/20 ML VIAL As Ordered ONE (11:51)
[2023-09-12] MEDS ORDERED: fentaNYL 100 MCG/2 ML INJECTION As Ordered ONE (11:51)
[2023-09-12] MEDS ORDERED: NS 1,000 ML IV ONE (13:20)
[2023-09-12] MEDS ORDERED: GLYCOPYRROLATE INJ 0.2 MG/ML 2 ML VIAL As Ordered ONE (14:57)
[2023-09-12] MEDS: ATORVASTATIN 20 MG TAB PO SCH (20:06)
[2023-09-13 01:48] VITALS: BP 143/65; TEMP 97.9; O2SAT 98
[2023-09-13 05:00] VITALS: BP 169/73; TEMP 98.2; O2SAT 99
[2023-09-13] MEDS: ASPIRIN 81MG ENTERIC TABLET PO SCH (06:04)
[2023-09-13] MEDS: CALCITRIOL 0.25 MCG CAP (S0169) PO SCH (06:05)
[2023-09-13] MEDS: NIFEdipine 30MG XL TAB PO SCH (06:05)
[2023-09-13] MEDS: CARVedilol 6.25 MG TAB PO SCH ×2 (06:05→20:05)
[2023-09-13] MEDS: PANTOPRAZOLE 40MG VIAL IV SCH ×2 (06:05→20:04)
[2023-09-13] MEDS: rOPINIRole 1MG TAB PO SCH ×2 (06:05→20:04)
[2023-09-13] MEDS: SODIUM CHLORIDE 0.9% INJ 10 ML SYR IV SCH (06:06)
[2023-09-13 06:27] LABS: BASO % 0.6 % (0.0-1.0); EOS # 0.1 10^3/uL (0.0-0.5); HEMOGLOBIN 9.6 g/dl (12.0-15.5); LYMPH # 1.6 10^3/uL (1.5-5.0); LYMPH % 23.3 % (24.0-44.0); MEAN CORPUSCULAR HEMOGLOBIN 29.8 pg (27.0-33.0); MEAN CORPUSCULAR VOLUME 93.2 fl (80.0-96.0); MONO # 0.6 10^3/uL (0.0-0.8); NEUTROPHILS # 4.6 10^3/uL (1.5-8.5); NEUTROPHILS % 65.4 % (36.0-66.0); PLATELET COUNT, AUTOMATED 194 10^3/uL (150-450); RED BLOOD COUNT 3.22 10^6/uL (4.00-5.40)
[2023-09-13 06:58] LABS: CALCIUM LEVEL 8.8 MG/DL (8.3-10.6); CREATININE FOR GFR 3.48 MG/DL (0.55-1.30); GLOMERULAR FILTRATION RATE 13.8 (>39); POTASSIUM SERUM 3.7 MMOL/L (3.5-5.1)
[2023-09-13] MEDS: INSULIN LISPRO (NovoLOG) PER UNIT SC SCH ×3 (07:01→18:05)
[2023-09-13] MEDS ORDERED: HEPARIN 1,000UNITS/ML 10ML VIAL (FOR RADIOLOGY & DIALYSIS ONLY) XX SCH (07:25)
[2023-09-13] MEDS ORDERED: HEPARIN 1,000UNITS/ML 10ML VIAL (FOR RADIOLOGY & DIALYSIS ONLY) IV PRN (07:25)
[2023-09-13] MEDS ORDERED: SODIUM CHLORIDE 0.9% 1000ML IV PRN (07:25)
[2023-09-13] MEDS: ATORVASTATIN 20 MG TAB PO SCH (20:04)
[2023-09-14 05:01] VITALS: BP 127/71; TEMP 98.2; O2SAT 99
[2023-09-14 06:40] LABS: CALCIUM LEVEL 7.7 MG/DL (8.3-10.6); CREATININE FOR GFR 2.64 MG/DL (0.55-1.30); POTASSIUM SERUM 3.8 MMOL/L (3.5-5.1)
[2023-09-14] MEDS: PANTOPRAZOLE 40MG VIAL IV SCH ×2 (08:10→20:16)
[2023-09-14] MEDS: CALCITRIOL 0.25 MCG CAP (S0169) PO SCH (08:11)
[2023-09-14] MEDS: ASPIRIN 81MG ENTERIC TABLET PO SCH (08:11)
[2023-09-14] MEDS: INSULIN LISPRO (NovoLOG) PER UNIT SC SCH ×3 (08:11→17:15)
[2023-09-14] MEDS: NIFEdipine 30MG XL TAB PO SCH (08:12)
[2023-09-14] MEDS: CARVedilol 6.25 MG TAB PO SCH ×2 (08:12→20:16)
[2023-09-14] MEDS: rOPINIRole 1MG TAB PO SCH ×2 (08:12→20:15)
[2023-09-14] MEDS: SODIUM CHLORIDE 0.9% INJ 10 ML SYR IV SCH (08:13)
[2023-09-14] MEDS: ATORVASTATIN 20 MG TAB PO SCH (20:15)
[2023-09-15 05:29] VITALS: BP 148/82; TEMP 97.9; O2SAT 97
[2023-09-15] MEDS: PANTOPRAZOLE 40MG VIAL IV SCH ×2 (08:05→20:22)
[2023-09-15] MEDS: rOPINIRole 1MG TAB PO SCH ×2 (08:05→20:22)
[2023-09-15] MEDS: ASPIRIN 81MG ENTERIC TABLET PO SCH (08:05)
[2023-09-15] MEDS: CALCITRIOL 0.25 MCG CAP (S0169) PO SCH (08:05)
[2023-09-15] MEDS: SODIUM CHLORIDE 0.9% INJ 10 ML SYR IV SCH (08:06)
[2023-09-15] MEDS: INSULIN LISPRO (NovoLOG) PER UNIT SC SCH ×3 (08:06→17:41)
[2023-09-15] MEDS: CARVedilol 6.25 MG TAB PO SCH ×2 (08:12→20:24)
[2023-09-15] MEDS: NIFEdipine 30MG XL TAB PO SCH (08:13)
[2023-09-15 09:15] LABS: BASO % 0.5 % (0.0-1.0); EOS # 0.2 10^3/uL (0.0-0.5); EOS % 2.2 % (0.0-3.0); HEMATOCRIT 30.8 % (36.0-47.0); HEMOGLOBIN 9.8 g/dl (12.0-15.5); LYMPH # 1.4 10^3/uL (1.5-5.0); LYMPH % 18.6 % (24.0-44.0); MEAN CORPUSCULAR HGB CONC 31.8 g/dl (32.0-36.5); MEAN CORPUSCULAR VOLUME 94.2 fl (80.0-96.0); MONO # 0.6 10^3/uL (0.0-0.8); MONO % 7.9 % (2.0-8.0); NEUTROPHILS # 5.4 10^3/uL (1.5-8.5); NEUTROPHILS % 70.3 % (36.0-66.0); PLATELET COUNT, AUTOMATED 170 10^3/uL (150-450); RED BLOOD COUNT 3.27 10^6/uL (4.00-5.40); WHITE BLOOD COUNT 7.7 10^3/uL (4.0-10.0)
[2023-09-15 09:25] LABS: CALCIUM LEVEL 8.4 MG/DL (8.3-10.6); CREATININE FOR GFR 3.72 MG/DL (0.55-1.30); GLOMERULAR FILTRATION RATE 12.8 (>39); POTASSIUM SERUM 3.7 MMOL/L (3.5-5.1)
[2023-09-15 09:30] VITALS: BP 184/70
[2023-09-15 17:32] VITALS: BP 160/60
[2023-09-15] MEDS: ATORVASTATIN 20 MG TAB PO SCH (20:22)
[2023-09-16 05:56] VITALS: BP 171/65; TEMP 98.4; O2SAT 99
[2023-09-16] MEDS: NIFEdipine 30MG XL TAB PO SCH (06:13)
[2023-09-16] MEDS: rOPINIRole 1MG TAB PO SCH (06:13)
[2023-09-16] MEDS: ASPIRIN 81MG ENTERIC TABLET PO SCH (06:13)
[2023-09-16] MEDS: PANTOPRAZOLE 40MG VIAL IV SCH (06:13)
[2023-09-16] MEDS: CALCITRIOL 0.25 MCG CAP (S0169) PO SCH (06:13)
[2023-09-16 06:14] VITALS: BP 171/65
[2023-09-16] MEDS: CARVedilol 6.25 MG TAB PO SCH (06:14)
[2023-09-16] MEDS: SODIUM CHLORIDE 0.9% INJ 10 ML SYR IV SCH (06:18)
[2023-09-16] MEDS ORDERED: SODIUM CHLORIDE 0.9% 1000ML IV PRN (07:05)
[2023-09-16] MEDS ORDERED: HEPARIN 1,000UNITS/ML 10ML VIAL (FOR RADIOLOGY & DIALYSIS ONLY) IV PRN (07:05)
[2023-09-16] MEDS ORDERED: IRON SUCROSE 100MG 5ML VIAL IV SCH (07:05)
[2023-09-16] MEDS ORDERED: HEPARIN 1,000UNITS/ML 10ML VIAL (FOR RADIOLOGY & DIALYSIS ONLY) XX SCH (07:05)
[2023-09-16] MEDS: INSULIN LISPRO (NovoLOG) PER UNIT SC SCH ×2 (08:11→13:34)
[2023-09-16] MEDS ORDERED: PANT40TA29 PO (12:53)
== END 2023-09-16 13:48 | DRG 377 ==
LOC: M ED 13:24 → EDBD 13:24 → M ED INP 17:59 → M MSPAV 09-09 14:11
PROVIDERS: ADMIT Internal Medicine Nephrology; ATTEND Internal Medicine Nephrology
PROC: 30233N1 Transfusion of Nonautologous Red Blood Cells into Peripheral Vein, Percutaneous Approach (ICD-10-PCS; 2023-09-08)
PROC: 5A1D70Z Performance of Urinary Filtration, Intermittent, Less than 6 Hours Per Day (ICD-10-PCS; 2023-09-09)
PROC: 0DBL8ZX Excision of Transverse Colon, Via Natural or Artificial Opening Endoscopic, Diagnostic (ICD-10-PCS; 2023-09-12)
PROC: 0DB68ZX Excision of Stomach, Via Natural or Artificial Opening Endoscopic, Diagnostic (ICD-10-PCS; principal; 2023-09-12 13:45)
DX: K29.51 Unspecified chronic gastritis with bleeding (principal); N18.6 End stage renal disease; D62 Acute posthemorrhagic anemia; I13.2 Hypertensive heart and chronic kidney disease with heart failure and with stage 5 chronic kidney disease, or end stage renal disease; J96.11 Chronic respiratory failure with hypoxia; I50.32 Chronic diastolic (congestive) heart failure; F03.90 Unspecified dementia, unspecified severity, without behavioral disturbance, psychotic disturbance, mood disturbance, and anxiety; I48.0 Paroxysmal atrial fibrillation; I25.10 Atherosclerotic heart disease of native coronary artery without angina pectoris; E11.51 Type 2 diabetes mellitus with diabetic peripheral angiopathy without gangrene; E11.22 Type 2 diabetes mellitus with diabetic chronic kidney disease; J44.9 Chronic obstructive pulmonary disease, unspecified; J45.909 Unspecified asthma, uncomplicated; G47.33 Obstructive sleep apnea (adult) (pediatric); E11.40 Type 2 diabetes mellitus with diabetic neuropathy, unspecified; E11.319 Type 2 diabetes mellitus with unspecified diabetic retinopathy without macular edema; G25.81 Restless legs syndrome; F41.9 Anxiety disorder, unspecified; F32.A Depression, unspecified; D50.9 Iron deficiency anemia, unspecified; D63.1 Anemia in chronic kidney disease; E83.39 Other disorders of phosphorus metabolism; H54.8 Legal blindness, as defined in USA; Z89.421 Acquired absence of other right toe(s); Z90.49 Acquired absence of other specified parts of digestive tract; Z89.422 Acquired absence of other left toe(s); Z79.82 Long term (current) use of aspirin; Z79.4 Long term (current) use of insulin; Z99.81 Dependence on supplemental oxygen; Z79.899 Other long term (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 therapy; Z88.0 Allergy status to penicillin; Z95.5 Presence of coronary angioplasty implant and graft; Z95.820 Peripheral vascular angioplasty status with implants and grafts; E11.621 Type 2 diabetes mellitus with foot ulcer; L97.529 Non-pressure chronic ulcer of other part of left foot with unspecified severity; R00.1 Bradycardia, unspecified; K64.8 Other hemorrhoids; D12.3 Benign neoplasm of transverse colon; K63.89 Other specified diseases of intestine

== ENCOUNTER → 2023-09-19 | Outpatient (REF) ==
[~2023-09-19] MED LIST changes: +PANT40TA29 PO
[2023-09-19 11:30] LABS: HEMATOCRIT 30.9 % (36.0-47.0); HEMOGLOBIN 9.9 g/dl (12.0-15.5); MEAN CORPUSCULAR VOLUME 93.6 fl (80.0-96.0); PLATELET COUNT, AUTOMATED 132 10^3/uL (150-450); WHITE BLOOD COUNT 6.1 10^3/uL (4.0-10.0)
[2023-09-19 12:01] LABS: CALCIUM LEVEL 8.7 MG/DL (8.3-10.6); CREATININE FOR GFR 3.12 MG/DL (0.55-1.30); GLOMERULAR FILTRATION RATE 15.7 (>39); POTASSIUM SERUM 3.7 MMOL/L (3.5-5.1)
== END ==
PROVIDERS: ATTEND Physician Assistant
DX: K92.2 Gastrointestinal hemorrhage, unspecified (principal)

== ENCOUNTER → 2023-09-24 | Outpatient (REF) | payer MEDICAID, MEDICARE | LOC: M RAD 12:47 → EDSTATUS 13:30 | PROVIDERS: ATTEND Physician Assistant | DX: I89.0 Lymphedema, not elsewhere classified (principal) ==

== ENCOUNTER → 2023-09-24 | Outpatient (REF) | PROVIDERS: ATTEND Internal Medicine | DX: K92.2 Gastrointestinal hemorrhage, unspecified (principal); Z53.8 Procedure and treatment not carried out for other reasons ==

== ENCOUNTER → 2023-09-25 | Outpatient (REF) | PROVIDERS: ATTEND Physician Assistant | DX: A49.02 Methicillin resistant Staphylococcus aureus infection, unspecified site (principal) ==

== ENCOUNTER → 2023-09-26 | Outpatient (REF) ==
[~2023-09-26] MED LIST changes: +BISA10SU27 PR; +FLEEENE12 PR; +GLUC1KIT IM; +INSU100V3 SQ; +LIDO1ADH44 TP; +MILKSUS3 PO; +SENN-85 PO
[2023-09-26 09:15] LABS: HEMATOCRIT 38.1 % (36.0-47.0); HEMOGLOBIN 12.2 g/dl (12.0-15.5); MEAN CORPUSCULAR HEMOGLOBIN 30.2 pg (27.0-33.0); MEAN CORPUSCULAR VOLUME 94.3 fl (80.0-96.0); PLATELET COUNT, AUTOMATED 145 10^3/uL (150-450); RED BLOOD COUNT 4.04 10^6/uL (4.00-5.40); WHITE BLOOD COUNT 10.4 10^3/uL (4.0-10.0)
[2023-09-26 09:45] LABS: CALCIUM LEVEL 9.2 MG/DL (8.3-10.6); CREATININE FOR GFR 4.02 MG/DL (0.55-1.30); GLOMERULAR FILTRATION RATE 11.7 (>39); POTASSIUM SERUM 4.5 MMOL/L (3.5-5.1)
== END ==
PROVIDERS: ATTEND Physician Assistant
DX: K92.2 Gastrointestinal hemorrhage, unspecified (principal)

== ENCOUNTER 2023-09-29 12:18 | Observation (INO) | payer MEDICARE, MEDICAID ==
[~2023-09-29] VITALS: Ht 154.9 cm; Wt 72.8 kg
[~2023-09-29 12:18] MED LIST changes: -BISA10SU27 PR; -FLEEENE12 PR; -GLUC1KIT IM; -HYDR-3910 PO; -HYDR25TA PO; +HYDR25TA87 PO; +HYDR25TA88 PO; -INSU100V3 SQ; -LIDO1ADH44 TP; -MILKSUS3 PO; -MIRA1POW3 PO; +MIRA33506 PO; -SENN-85 PO
[2023-09-29] MEDS ORDERED: fentaNYL 100 MCG/2 ML INJECTION IV PRN (15:20)
[2023-09-29 15:23] LABS: HEMATOCRIT 36.7 % (36.0-47.0); HEMOGLOBIN 11.7 g/dl (12.0-15.5); MEAN CORPUSCULAR HEMOGLOBIN 30.5 pg (27.0-33.0); MEAN CORPUSCULAR HGB CONC 31.9 g/dl (32.0-36.5); MEAN CORPUSCULAR VOLUME 95.8 fl (80.0-96.0); PLATELET COUNT, AUTOMATED 162 10^3/uL (150-450); RED BLOOD COUNT 3.83 10^6/uL (4.00-5.40); WHITE BLOOD COUNT 8.3 10^3/uL (4.0-10.0)
[2023-09-29] MEDS ORDERED: MED REC IN PROGRESS XX SCH (15:30)
[2023-09-29 15:47] LABS: CALCIUM LEVEL 8.8 MG/DL (8.3-10.6); CREATININE FOR GFR 4.85 MG/DL (0.55-1.30); GLOMERULAR FILTRATION RATE 9.4 (>39); POTASSIUM SERUM 5.5 MMOL/L (3.5-5.1)
[2023-09-29 16:36] LABS: CK-MB VALUE MASS 1.6 NG/ML (<3.6)
[2023-09-29] MEDS ORDERED: GLUCOSE 4GM CHEW TABLET PO PRN (16:40)
[2023-09-29] MEDS ORDERED: DEXTROSE 50% 50ML SYRINGE IV PRN (16:40)
[2023-09-29] MEDS ORDERED: GLUCAGON INJ 1MG VIAL SC PRN (16:40)
[2023-09-29 16:43] LABS: MB/CK RELATIVE INDEX 2.75 (< OR =4)
[2023-09-29] MEDS: PATIROMER SORBITEX CALCIUM 8.4 GM POWDER PACKET (VELTASSA) PO ONE (17:07)
[2023-09-29] MEDS: INSULIN LISPRO (NovoLOG) PER UNIT SC SCH ×2 (18:17→21:54)
[2023-09-29] MEDS ORDERED: INSU100V3 SQ (18:23)
[2023-09-29] MEDS ORDERED: SENN-85 PO (18:23)
[2023-09-29] MEDS ORDERED: FLEEENE12 PR (18:23)
[2023-09-29] MEDS ORDERED: BISA10SU27 PR (18:23)
[2023-09-29] MEDS ORDERED: PANT-23 PO (18:23)
[2023-09-29] MEDS ORDERED: LIDO1ADH44 TP (18:23)
[2023-09-29] MEDS ORDERED: MILKSUS3 PO (18:23)
[2023-09-29] MEDS ORDERED: LISI20TA33 PO (18:23)
[2023-09-29] MEDS ORDERED: GLUC1KIT IM (18:23)
[2023-09-29] MEDS ORDERED: HOME MED LIST COMPLETE! XX SCH (18:25)
[2023-09-29] MEDS ORDERED: MIRALAX *UNIT DOSE* 17GM PACKET PO PRN (18:30)
[2023-09-29 18:36] LABS: INR 1.11
[2023-09-29 18:37] LABS: PARTIAL THROMBOPLASTIN TIME 32.9 SECONDS (24.8-34.2)
[2023-09-29] MEDS: CARVedilol 12.5 MG TAB PO SCH (21:49)
[2023-09-29] MEDS: GABAPENTIN 100 MG CAP PO SCH (21:54)
[2023-09-29] MEDS: PANTOPRAZOLE 40MG TAB (PROTONIX) PO SCH (21:54)
[2023-09-29] MEDS: ATORVASTATIN 20 MG TAB PO SCH (21:54)
[2023-09-29 23:00] VITALS: BP 192/68; TEMP 97.8; O2SAT 99
[2023-09-29] MEDS: rOPINIRole 2MG TAB PO SCH (23:14)
[2023-09-29] MEDS: ACETAMINOPHEN TAB 650MG DOSE (2X325MG) PO PRN (23:15)
[2023-09-29] MEDS: LIDOCAINE 5% (LIDODERM) PATCH TD SCH (23:15)
[2023-09-29] MEDS: HYDROmorphone 2 MG TAB PO PRN (23:34)
[2023-09-30] VITALS (12 sets, daily range): BP systolic 159–200; BP diastolic 60–90; TEMP 96.9–98.2; O2SAT 93–100
[2023-09-30] MEDS: **hydrALAZINE** 10 MG TAB PO PRN (06:23)
[2023-09-30] MEDS ORDERED: HEPARIN 1,000UNITS/ML 10ML VIAL (FOR RADIOLOGY & DIALYSIS ONLY) XX SCH (06:55)
[2023-09-30] MEDS ORDERED: HEPARIN 1,000UNITS/ML 10ML VIAL (FOR RADIOLOGY & DIALYSIS ONLY) IV PRN (06:55)
[2023-09-30] MEDS ORDERED: SODIUM CHLORIDE 0.9% 1000ML IV PRN (06:55)
[2023-09-30 07:24] LABS: BASO % 0.5 % (0.0-1.0); EOS # 0.4 10^3/uL (0.0-0.5); EOS % 4.6 % (0.0-3.0); HEMATOCRIT 35.7 % (36.0-47.0); HEMOGLOBIN 11.3 g/dl (12.0-15.5); LYMPH # 1.6 10^3/uL (1.5-5.0); LYMPH % 19.5 % (24.0-44.0); MEAN CORPUSCULAR HGB CONC 31.7 g/dl (32.0-36.5); MEAN CORPUSCULAR VOLUME 94.7 fl (80.0-96.0); MONO # 0.5 10^3/uL (0.0-0.8); MONO % 5.9 % (2.0-8.0); NEUTROPHILS # 5.6 10^3/uL (1.5-8.5); NEUTROPHILS % 69.1 % (36.0-66.0); PLATELET COUNT, AUTOMATED 153 10^3/uL (150-450); RED BLOOD COUNT 3.77 10^6/uL (4.00-5.40); WHITE BLOOD COUNT 8.1 10^3/uL (4.0-10.0)
[2023-09-30 07:51] LABS: CALCIUM LEVEL 8.6 MG/DL (8.3-10.6); CREATININE FOR GFR 5.13 MG/DL (0.55-1.30); GLOMERULAR FILTRATION RATE 8.8 (>39); MAGNESIUM LEVEL 1.6 MG/DL (1.8-2.4); POTASSIUM SERUM 4.9 MMOL/L (3.5-5.1)
[2023-09-30] MEDS: ASPIRIN 81MG ENTERIC TABLET PO SCH ×2 (07:57→21:56)
[2023-09-30] MEDS: VITAMIN D 1,000 INTERNATIONAL UNITS TABLET PO SCH (07:57)
[2023-09-30] MEDS: CALCITRIOL 0.25 MCG CAP (S0169) PO SCH (07:57)
[2023-09-30] MEDS: SENOKOT S TAB PO SCH (07:57)
[2023-09-30] MEDS: NIFEdipine 30MG XL TAB PO SCH (08:00)
[2023-09-30] MEDS ORDERED: SUGAMMADEX SODIUM 500 MG/5 ML VIAL (BRIDION) As Ordered ONE (08:29)
[2023-09-30] MEDS ORDERED: LIDOCAINE 2% 100MG/5ML SDV (FOR ANES.) As Ordered ONE (08:29)
[2023-09-30] MEDS ORDERED: propofoL 200 MG/20 ML VIAL As Ordered ONE (08:29)
[2023-09-30] MEDS ORDERED: ROCURONIUM BROMIDE 50MG/5ML VIAL As Ordered ONE (08:29)
[2023-09-30] MEDS ORDERED: ONDANSETRON 4MG 2ML VIAL As Ordered ONE (08:30)
[2023-09-30] MEDS ORDERED: LIDOCAINE 5% (LIDODERM) PATCH TD SCH (09:00)
[2023-09-30] MEDS ORDERED: HYDROMORPHONE HCL 0.5 MG/ 0.5 ML SYRINGE IV PRN ×2 (10:55)
[2023-09-30] MEDS ORDERED: fentaNYL 100 MCG/2 ML INJECTION As Ordered ONE (14:41)
[2023-09-30] MEDS ORDERED: ETOMIDATE INJ 20MG/10ML VIAL As Ordered ONE (14:41)
[2023-09-30] MEDS: ceFAZolin 2 GM/D5W 50 ML IV BAG As Ordered ONE (14:53)
[2023-09-30] MEDS: CLINDAMYCIN 600MG/50ML PREMIX BAG As Ordered ONE (14:59)
[2023-09-30] MEDS ORDERED: ONDANSETRON 4MG 2ML VIAL IV PRN ×2 (16:00→16:10)
[2023-09-30] MEDS: LR 1,000 ML IV SCH ×2 (16:00→16:10)
[2023-09-30] MEDS ORDERED: NAPROXEN 250 MG TAB PO SCH (16:00)
[2023-09-30] MEDS: fentaNYL 100 MCG/2 ML INJECTION IV PRN (16:08)
[2023-09-30] MEDS ORDERED: LABETALOL 100MG/20ML VIAL IV PRN (16:10)
[2023-09-30] MEDS: hydrALAZINE 20MG/ML 1ML VIAL IV PRN (16:18)
[2023-09-30] MEDS ORDERED: hydrALAZINE 20MG/ML 1ML VIAL As Ordered ONE (16:18)
[2023-09-30] MEDS: HYDROMORPHONE HCL 0.5 MG/ 0.5 ML SYRINGE IV PRN (16:53)
[2023-09-30] MEDS: oxyCODONE 5MG TAB PO PRN ×2 (16:58→18:51)
[2023-09-30] MEDS: ACETAMINOPHEN TAB 650MG DOSE (2X325MG) PO SCH (17:56)
[2023-09-30] MEDS ORDERED: ceFAZolin SOD 2 GM in IV 1 EA IV SCH (21:00)
[2023-09-30] MEDS: DOCUSATE SODIUM 100MG CAPSULE PO SCH (21:56)
[2023-09-30] MEDS: INSULIN LISPRO (NovoLOG) PER UNIT SC SCH ×2 (23:13)
[2023-09-30] MEDS: ceFAZolin 1GM VIAL IM SCH (23:50)
[2023-10-01] VITALS (9 sets, daily range): BP systolic 134–198; BP diastolic 56–86; TEMP 97.3–98.3; O2SAT 94–99
[2023-10-01] MEDS: **hydrALAZINE** 10 MG TAB PO ONE (03:59)
[2023-10-01] MEDS: oxyCODONE 5MG TAB PO PRN (06:04)
[2023-10-01 06:30] LABS: BASO % 0.4 % (0.0-1.0); EOS % 0.4 % (0.0-3.0); HEMATOCRIT 34.4 % (36.0-47.0); HEMOGLOBIN 11.1 g/dl (12.0-15.5); LYMPH # 1.1 10^3/uL (1.5-5.0); LYMPH % 13.8 % (24.0-44.0); MEAN CORPUSCULAR HEMOGLOBIN 30.4 pg (27.0-33.0); MEAN CORPUSCULAR HGB CONC 32.3 g/dl (32.0-36.5); MEAN CORPUSCULAR VOLUME 94.2 fl (80.0-96.0); MONO # 0.4 10^3/uL (0.0-0.8); MONO % 5.5 % (2.0-8.0); NEUTROPHILS % 79.5 % (36.0-66.0); PLATELET COUNT, AUTOMATED 159 10^3/uL (150-450); RED BLOOD COUNT 3.65 10^6/uL (4.00-5.40); WHITE BLOOD COUNT 7.6 10^3/uL (4.0-10.0)
[2023-10-01] MEDS: **hydrALAZINE** 50 MG TAB PO ONE (06:54)
[2023-10-01 06:58] LABS: CALCIUM LEVEL 8.4 MG/DL (8.3-10.6); CREATININE FOR GFR 3.44 MG/DL (0.55-1.30); MAGNESIUM LEVEL 1.7 MG/DL (1.8-2.4); POTASSIUM SERUM 4.6 MMOL/L (3.5-5.1)
[2023-10-01] MEDS ORDERED: MAG SULF 1GM/100ML (MAG RUN) 1 GM in IV 1 EA IV ONE (07:10)
[2023-10-01] MEDS: INSULIN LISPRO (NovoLOG) PER UNIT SC SCH (08:16)
[2023-10-01] MEDS: MAGNESIUM OXIDE 400MG TAB (MAG-OX) PO ONE (08:17)
[2023-10-01] MEDS ORDERED: OXYC-517 PO (10:27)
[2023-10-01] MEDS ORDERED: HYDR25TA88 PO (10:27)
[2023-10-01] MEDS ORDERED: ASPI81CH33 PO (10:27)
[2023-10-01] MEDS: **hydrALAZINE HCL** 25 MG TAB PO SCH (15:02)
[2023-10-02 06:00] VITALS: BP 162/60; TEMP 98.2; O2SAT 97
[2023-10-02 06:07] LABS: BASO # 0.1 10^3/uL (0.0-0.2); BASO % 0.8 % (0.0-1.0); EOS # 0.3 10^3/uL (0.0-0.5); EOS % 5.2 % (0.0-3.0); HEMATOCRIT 33.8 % (36.0-47.0); HEMOGLOBIN 10.7 g/dl (12.0-15.5); LYMPH # 1.5 10^3/uL (1.5-5.0); LYMPH % 24.9 % (24.0-44.0); MEAN CORPUSCULAR HEMOGLOBIN 30.1 pg (27.0-33.0); MEAN CORPUSCULAR HGB CONC 31.7 g/dl (32.0-36.5); MEAN CORPUSCULAR VOLUME 94.9 fl (80.0-96.0); MONO # 0.5 10^3/uL (0.0-0.8); MONO % 8.2 % (2.0-8.0); NEUTROPHILS # 3.8 10^3/uL (1.5-8.5); NEUTROPHILS % 60.6 % (36.0-66.0); PLATELET COUNT, AUTOMATED 148 10^3/uL (150-450); RED BLOOD COUNT 3.56 10^6/uL (4.00-5.40); WHITE BLOOD COUNT 6.2 10^3/uL (4.0-10.0)
[2023-10-02 06:16] LABS: CALCIUM LEVEL 8.3 MG/DL (8.3-10.6); CREATININE FOR GFR 4.55 MG/DL (0.55-1.30); GLOMERULAR FILTRATION RATE 10.2 (>39); MAGNESIUM LEVEL 1.7 MG/DL (1.8-2.4); POTASSIUM SERUM 5.2 MMOL/L (3.5-5.1)
[2023-10-02] MEDS ORDERED: HEPARIN 1,000UNITS/ML 10ML VIAL (FOR RADIOLOGY & DIALYSIS ONLY) XX SCH (06:45)
[2023-10-02] MEDS ORDERED: SODIUM CHLORIDE 0.9% 1000ML IV PRN (06:45)
[2023-10-02] MEDS ORDERED: HEPARIN 1,000UNITS/ML 10ML VIAL (FOR RADIOLOGY & DIALYSIS ONLY) IV PRN (06:45)
[2023-10-02 06:49] VITALS: BP 162/60
[2023-10-02] MEDS: **hydrALAZINE HCL** 25 MG TAB PO ONE (06:49)
[2023-10-02] MEDS: SENNA 8.6 MG TAB (SENOKOT) PO PRN (07:34)
[2023-10-02] MEDS: MAGNESIUM OXIDE 400MG TAB (MAG-OX) PO ONE (07:34)
[2023-10-02] MEDS: LACTULOSE 20GM/30ML SYRUP UDC PO ONE (12:06)
[2023-10-02 12:31] VITALS: BP 142/64
== END 2023-10-02 13:45 ==
LOC: EDBD 12:18 → M ED 12:37 → INTOOBSV 15:51 → M ED INP 15:51 → M MS4PR 22:41
PROVIDERS: ADMIT Internal Medicine; ATTEND Internal Medicine
DX: S72.011A Unspecified intracapsular fracture of right femur, initial encounter for closed fracture (principal); W05.0XXA Fall from non-moving wheelchair, initial encounter; Y92.121 Bathroom in nursing home as the place of occurrence of the external cause; I48.0 Paroxysmal atrial fibrillation; I25.10 Atherosclerotic heart disease of native coronary artery without angina pectoris; E87.5 Hyperkalemia; I73.9 Peripheral vascular disease, unspecified; N18.6 End stage renal disease; I12.0 Hypertensive chronic kidney disease with stage 5 chronic kidney disease or end stage renal disease; J44.9 Chronic obstructive pulmonary disease, unspecified; G47.33 Obstructive sleep apnea (adult) (pediatric); K59.00 Constipation, unspecified; M54.50 Low back pain, unspecified; H40.9 Unspecified glaucoma; E11.22 Type 2 diabetes mellitus with diabetic chronic kidney disease; E11.51 Type 2 diabetes mellitus with diabetic peripheral angiopathy without gangrene; D63.1 Anemia in chronic kidney disease; G25.81 Restless legs syndrome; E83.42 Hypomagnesemia; F41.9 Anxiety disorder, unspecified; F32.A Depression, unspecified; F03.90 Unspecified dementia, unspecified severity, without behavioral disturbance, psychotic disturbance, mood disturbance, and anxiety; Z99.2 Dependence on renal dialysis; Z99.3 Dependence on wheelchair; Z99.81 Dependence on supplemental oxygen; Z95.828 Presence of other vascular implants and grafts; Z89.412 Acquired absence of left great toe; Z95.5 Presence of coronary angioplasty implant and graft; Z90.49 Acquired absence of other specified parts of digestive tract; Z66 Do not resuscitate; Z79.82 Long term (current) use of aspirin; Z79.4 Long term (current) use of insulin; Z79.899 Other long term (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 therapy; Z88.0 Allergy status to penicillin; Z20.822 Contact with and (suspected) exposure to COVID-19; Z95.2 Presence of prosthetic heart valve
CPT/HCPCS: 27235; 36415; 70450; 71045; 72110; 73502; 73700; 76000; 80048; 82550; 82553; 83735; 84484; 85025; 85027; 85610; 85730; 87635; 90935; 93005; 96372; 97116; 97161; 97165; 97530; 97535; 99285; C1713; C1769; G0378; J0360; J0665; J0690; J0737; J1100; J1170; J1815; J2405; J3010

== ENCOUNTER → 2023-10-01 | Outpatient (REF) ==
[~2023-10-01] MED LIST changes: +ASPI81CH33 PO; +BISA10SU27 PR; +FLEEENE12 PR; +GLUC1KIT IM; +HYDR-3910 PO; +HYDR25TA PO; -HYDR25TA87 PO; -HYDR25TA88 PO; +INSU100V3 SQ; +LIDO1ADH44 TP; +MILKSUS3 PO; +MIRA1POW3 PO; -MIRA33506 PO; +OXYC-517 PO; +SENN-85 PO
== END ==
PROVIDERS: ATTEND Physician Assistant
DX: K92.2 Gastrointestinal hemorrhage, unspecified (principal); Z53.8 Procedure and treatment not carried out for other reasons

== ENCOUNTER → 2023-10-08 | Outpatient (REF) ==
[2023-10-08 12:07] LABS: MEAN CORPUSCULAR HEMOGLOBIN 29.9 pg (27.0-33.0); MEAN CORPUSCULAR HGB CONC 31.3 g/dl (32.0-36.5); MEAN CORPUSCULAR VOLUME 95.5 fl (80.0-96.0); PLATELET COUNT, AUTOMATED 177 10^3/uL (150-450); RED BLOOD COUNT 3.35 10^6/uL (4.00-5.40); WHITE BLOOD COUNT 7.7 10^3/uL (4.0-10.0)
[2023-10-08 12:38] LABS: CALCIUM LEVEL 8.8 MG/DL (8.3-10.6); CREATININE FOR GFR 3.34 MG/DL (0.55-1.30); GLOMERULAR FILTRATION RATE 14.5 (>39); POTASSIUM SERUM 4.5 MMOL/L (3.5-5.1)
== END ==
PROVIDERS: ATTEND Physician Assistant
DX: K92.2 Gastrointestinal hemorrhage, unspecified (principal)

== ENCOUNTER → 2023-10-15 | Outpatient (REF) ==
[~2023-10-15] MED LIST changes: -HYDR-3910 PO; -HYDR25TA PO; +HYDR25TA87 PO; +HYDR25TA88 PO; -MIRA1POW3 PO; +MIRA33506 PO
[2023-10-15 10:42] LABS: HEMATOCRIT 37.1 % (36.0-47.0); HEMOGLOBIN 11.6 g/dl (12.0-15.5); MEAN CORPUSCULAR HEMOGLOBIN 29.7 pg (27.0-33.0); MEAN CORPUSCULAR HGB CONC 31.3 g/dl (32.0-36.5); MEAN CORPUSCULAR VOLUME 94.9 fl (80.0-96.0); PLATELET COUNT, AUTOMATED 208 10^3/uL (150-450); RED BLOOD COUNT 3.91 10^6/uL (4.00-5.40); WHITE BLOOD COUNT 8.2 10^3/uL (4.0-10.0)
[2023-10-15 11:07] LABS: CALCIUM LEVEL 9.1 MG/DL (8.3-10.6); CREATININE FOR GFR 3.48 MG/DL (0.55-1.30); GLOMERULAR FILTRATION RATE 13.8 (>39); POTASSIUM SERUM 3.9 MMOL/L (3.5-5.1)
== END ==
PROVIDERS: ATTEND Physician Assistant
DX: R63.5 Abnormal weight gain (principal)

== ENCOUNTER → 2023-10-16 | Outpatient (REF) | PROVIDERS: ATTEND Physician Assistant | DX: R63.5 Abnormal weight gain (principal) ==

== ENCOUNTER → 2023-10-17 | Outpatient (REF) ==
[2023-10-17 10:38] LABS: BASO # 0.1 10^3/uL (0.0-0.2); BASO % 0.7 % (0.0-1.0); EOS # 0.1 10^3/uL (0.0-0.5); EOS % 1.3 % (0.0-3.0); HEMATOCRIT 41.4 % (36.0-47.0); HEMOGLOBIN 13.2 g/dl (12.0-15.5); LYMPH # 0.5 10^3/uL (1.5-5.0); LYMPH % 5.2 % (24.0-44.0); MEAN CORPUSCULAR HEMOGLOBIN 29.9 pg (27.0-33.0); MEAN CORPUSCULAR HGB CONC 31.9 g/dl (32.0-36.5); MEAN CORPUSCULAR VOLUME 93.9 fl (80.0-96.0); MONO # 0.4 10^3/uL (0.0-0.8); MONO % 4.9 % (2.0-8.0); NEUTROPHILS # 7.7 10^3/uL (1.5-8.5); NEUTROPHILS % 87.2 % (36.0-66.0); PLATELET COUNT, AUTOMATED 213 10^3/uL (150-450); RED BLOOD COUNT 4.41 10^6/uL (4.00-5.40); WHITE BLOOD COUNT 8.8 10^3/uL (4.0-10.0)
[2023-10-17 10:53] LABS: ALBUMIN 3.1 G/DL (3.2-5.2); BILIRUBIN,DIRECT 0.1 MG/DL (<0.4); BILIRUBIN,TOTAL 0.5 MG/DL (0.3-1.2); TOTAL PROTEIN 6.6 G/DL (5.7-8.2)
[2023-10-17 10:55] LABS: THYROID STIMULATING HORMONE 4.117 uIU/ML (0.55-4.78); THYROXINE (T4) 5.6 UG/DL (4.5-10.9)
== END ==
PROVIDERS: ATTEND Physician Assistant
DX: R63.5 Abnormal weight gain (principal)

== ENCOUNTER → 2023-10-17 | Outpatient (REF) | payer MEDICAID, MEDICARE | LOC: M SOG 07:56 → EDSTATUS 09:25 | PROVIDERS: ATTEND Orthopaedic Surgery | DX: Z47.89 Encounter for other orthopedic aftercare (principal) ==

== ENCOUNTER → 2023-11-10 | Outpatient (REF) ==
[2023-11-10 11:39] LABS: HEMATOCRIT 39.3 % (36.0-47.0); HEMOGLOBIN 12.6 g/dl (12.0-15.5); MEAN CORPUSCULAR HEMOGLOBIN 30.4 pg (27.0-33.0); MEAN CORPUSCULAR HGB CONC 32.1 g/dl (32.0-36.5); MEAN CORPUSCULAR VOLUME 94.9 fl (80.0-96.0); PLATELET COUNT, AUTOMATED 147 10^3/uL (150-450); RED BLOOD COUNT 4.14 10^6/uL (4.00-5.40); WHITE BLOOD COUNT 7.4 10^3/uL (4.0-10.0)
[2023-11-10 12:10] LABS: CALCIUM LEVEL 9.4 MG/DL (8.3-10.6); CREATININE FOR GFR 4.89 MG/DL (0.55-1.30); GLOMERULAR FILTRATION RATE 9.3 (>39)
== END ==
PROVIDERS: ATTEND Physician Assistant
DX: K92.2 Gastrointestinal hemorrhage, unspecified (principal)

== ENCOUNTER → 2023-11-11 | Outpatient (REF) | payer MEDICARE, MEDICAID | PROVIDERS: ATTEND Physician Assistant | DX: R19.7 Diarrhea, unspecified (principal) ==

== ENCOUNTER → 2023-11-28 | Outpatient (CLI) | payer MEDICARE, MEDICAID, OTHER | LOC: M SOG 08:35 | PROVIDERS: ATTEND Orthopaedic Surgery | DX: S72.011D Unspecified intracapsular fracture of right femur, subsequent encounter for closed fracture with routine healing (principal); X58.XXXD Exposure to other specified factors, subsequent encounter; M16.11 Unilateral primary osteoarthritis, right hip ==

== ENCOUNTER → 2023-12-10 | Outpatient (REF) | payer MEDICARE, MEDICAID | PROVIDERS: ATTEND Internal Medicine | DX: K92.2 Gastrointestinal hemorrhage, unspecified (principal); Z53.8 Procedure and treatment not carried out for other reasons ==

== ENCOUNTER → 2023-12-12 | Outpatient (REF) | payer MEDICARE, MEDICAID, OTHER | PROVIDERS: ATTEND Physician Assistant | DX: K92.2 Gastrointestinal hemorrhage, unspecified (principal); Z53.8 Procedure and treatment not carried out for other reasons ==

== ENCOUNTER → 2023-12-15 | Outpatient (REF) | payer MEDICARE, MEDICAID, OTHER | PROVIDERS: ATTEND Physician Assistant | DX: K92.2 Gastrointestinal hemorrhage, unspecified (principal); Z53.8 Procedure and treatment not carried out for other reasons ==

== ENCOUNTER → 2023-12-17 | Outpatient (REF) | payer MEDICARE, MEDICAID, OTHER ==
[2023-12-17 12:34] LABS: HEMATOCRIT 34.5 % (36.0-47.0); MEAN CORPUSCULAR HEMOGLOBIN 31.3 pg (27.0-33.0); MEAN CORPUSCULAR HGB CONC 31.9 g/dl (32.0-36.5); PLATELET COUNT, AUTOMATED 182 10^3/uL (150-450); RED BLOOD COUNT 3.52 10^6/uL (4.00-5.40); WHITE BLOOD COUNT 9.6 10^3/uL (4.0-10.0)
[2023-12-17 13:08] LABS: CALCIUM LEVEL 9.8 MG/DL (8.3-10.6); CREATININE FOR GFR 4.29 MG/DL (0.55-1.30); GLOMERULAR FILTRATION RATE 10.9 (>39); POTASSIUM SERUM 5.1 MMOL/L (3.5-5.1)
== END ==
PROVIDERS: ATTEND Nurse Practitioner Adult Health
DX: K92.2 Gastrointestinal hemorrhage, unspecified (principal)

== ENCOUNTER → 2024-01-09 | Outpatient (CLI) | payer MEDICARE, MEDICAID, OTHER ==
[~2024-01-09] MED LIST changes: -POTA10CA60 PO; +POTA10CA70 PO
== END ==
LOC: M SOG 07:53
PROVIDERS: ATTEND Orthopaedic Surgery
DX: S72.011D Unspecified intracapsular fracture of right femur, subsequent encounter for closed fracture with routine healing (principal)

== ENCOUNTER → 2024-01-12 | Outpatient (REF) | payer MEDICARE, MEDICAID, OTHER ==
[2024-01-12 11:11] LABS: HEMATOCRIT 34.2 % (36.0-47.0); HEMOGLOBIN 10.9 g/dl (12.0-15.5); MEAN CORPUSCULAR HEMOGLOBIN 32.6 pg (27.0-33.0); MEAN CORPUSCULAR HGB CONC 31.9 g/dl (32.0-36.5); MEAN CORPUSCULAR VOLUME 102.4 fl (80.0-96.0); PLATELET COUNT, AUTOMATED 164 10^3/uL (150-450); RED BLOOD COUNT 3.34 10^6/uL (4.00-5.40); WHITE BLOOD COUNT 8.5 10^3/uL (4.0-10.0)
[2024-01-12 11:44] LABS: CREATININE FOR GFR 6.42 MG/DL (0.55-1.30); GLOMERULAR FILTRATION RATE 6.8 (>39); POTASSIUM SERUM 5.3 MMOL/L (3.5-5.1)
== END ==
PROVIDERS: ATTEND Internal Medicine
DX: N18.9 Chronic kidney disease, unspecified (principal); E11.22 Type 2 diabetes mellitus with diabetic chronic kidney disease

== ENCOUNTER → 2024-02-09 | Outpatient (REF) | payer MEDICARE, MEDICAID, OTHER ==
[~2024-02-09] MED LIST changes: +ONDA-282 PO; -ONDA4TAB6 PO
[2024-02-09 12:34] LABS: HEMATOCRIT 37.4 % (36.0-47.0); HEMOGLOBIN 12.2 g/dl (12.0-15.5); MEAN CORPUSCULAR HEMOGLOBIN 33.3 pg (27.0-33.0); MEAN CORPUSCULAR HGB CONC 32.6 g/dl (32.0-36.5); MEAN CORPUSCULAR VOLUME 102.2 fl (80.0-96.0); PLATELET COUNT, AUTOMATED 148 10^3/uL (150-450); RED BLOOD COUNT 3.66 10^6/uL (4.00-5.40); WHITE BLOOD COUNT 8.2 10^3/uL (4.0-10.0)
[2024-02-09 13:00] LABS: HEMOGLOBIN A1c 6.4 % (4.0-6.0)
[2024-02-09 13:01] LABS: TOTAL 25(OH) VITAMIN D 26.2 NG/ML (20.0-100.0)
[2024-02-09 13:03] LABS: CALCIUM LEVEL 9.7 MG/DL (8.3-10.6); CHOLESTEROL RISK RATIO 3.74 (<5); CREATININE FOR GFR 6.27 MG/DL (0.55-1.30); HDL CHOLESTEROL 49.1 MG/DL (>40); LDL CHOLESTEROL 98.3 MG/DL (<100); NON-HDL-C 134.9 MG/DL; PHOSPHORUS LEVEL 5.6 MG/DL (2.4-5.1); POTASSIUM SERUM 4.5 MMOL/L (3.5-5.1)
[2024-02-09 13:59] LABS: PTH INTACT 149.3 PG/ML (18.5-88.0)
== END ==
PROVIDERS: ATTEND Physician Assistant
DX: E11.9 Type 2 diabetes mellitus without complications (principal); Z79.899 Other long term (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 therapy

== ENCOUNTER → 2024-03-08 | Outpatient (REF) | payer MEDICARE, MEDICAID, OTHER ==
[2024-03-08 11:16] LABS: HEMATOCRIT 34.4 % (36.0-47.0); HEMOGLOBIN 11.1 g/dl (12.0-15.5); MEAN CORPUSCULAR HEMOGLOBIN 32.6 pg (27.0-33.0); MEAN CORPUSCULAR HGB CONC 32.3 g/dl (32.0-36.5); MEAN CORPUSCULAR VOLUME 100.9 fl (80.0-96.0); PLATELET COUNT, AUTOMATED 159 10^3/uL (150-450); RED BLOOD COUNT 3.41 10^6/uL (4.00-5.40); WHITE BLOOD COUNT 7.2 10^3/uL (4.0-10.0)
[2024-03-08 11:51] LABS: CALCIUM LEVEL 9.7 MG/DL (8.3-10.6); CREATININE FOR GFR 6.48 MG/DL (0.55-1.30); GLOMERULAR FILTRATION RATE 6.7 (>39); POTASSIUM SERUM 4.3 MMOL/L (3.5-5.1)
== END ==
PROVIDERS: ATTEND Internal Medicine
DX: K92.2 Gastrointestinal hemorrhage, unspecified (principal)

== ENCOUNTER → 2024-04-14 | Outpatient (REF) | payer MEDICARE, MEDICAID, OTHER ==
[2024-04-14 09:01] LABS: HEMATOCRIT 28.9 % (36.0-47.0); HEMOGLOBIN 9.5 g/dl (12.0-15.5); MEAN CORPUSCULAR HEMOGLOBIN 32.9 pg (27.0-33.0); MEAN CORPUSCULAR HGB CONC 32.9 g/dl (32.0-36.5); PLATELET COUNT, AUTOMATED 151 10^3/uL (150-450); RED BLOOD COUNT 2.89 10^6/uL (4.00-5.40); WHITE BLOOD COUNT 8.3 10^3/uL (4.0-10.0)
[2024-04-14 09:26] LABS: CALCIUM LEVEL 9.6 MG/DL (8.3-10.6); CREATININE FOR GFR 4.03 MG/DL (0.55-1.30); GLOMERULAR FILTRATION RATE 11.6 (>39); POTASSIUM SERUM 4.5 MMOL/L (3.5-5.1)
== END ==
PROVIDERS: ATTEND Internal Medicine
DX: K92.2 Gastrointestinal hemorrhage, unspecified (principal)

== ENCOUNTER 2024-04-22 10:06 | Observation (INO) | payer MEDICAID, MEDICARE, OTHER ==
[2024-04-22] VITALS (8 sets, daily range): BP systolic 126–180; BP diastolic 51–69; TEMP 97–98.7; O2SAT 95–100
[2024-04-22] MEDS: PANTOPRAZOLE 40MG VIAL IV ONE (14:01)
[2024-04-22 14:12] LABS: MEAN CORPUSCULAR HEMOGLOBIN 32.8 pg (27.0-33.0); MEAN CORPUSCULAR HGB CONC 33.2 g/dl (32.0-36.5); PLATELET COUNT, AUTOMATED 209 10^3/uL (150-450); RED BLOOD COUNT 1.92 10^6/uL (4.00-5.40); WHITE BLOOD COUNT 8.2 10^3/uL (4.0-10.0)
[2024-04-22 14:15] LABS: HEMOGLOBIN 6.3 g/dl (12.0-15.5)
[2024-04-22 14:46] LABS: ALBUMIN 3.6 G/DL (3.2-5.2); ALKALINE PHOSPHATASE 192 U/L (46-116); ALT/SGPT 12 U/L (7.0-40); AST/SGOT < 8 U/L (<34); BILIRUBIN,DIRECT 0.2 MG/DL (<0.4); BILIRUBIN,TOTAL 0.6 MG/DL (0.3-1.2); BLOOD UREA NITROGEN 19 MG/DL (9-23); CALCIUM LEVEL 9.5 MG/DL (8.3-10.6); CARBON DIOXIDE LEVEL 29 MMOL/L (20-31); CHLORIDE LEVEL 101 MMOL/L (98-107); CREATININE FOR GFR 2.12 MG/DL (0.55-1.30); GLOMERULAR FILTRATION RATE 24.4 (>39); GLUCOSE, FASTING 179 MG/DL (74-106); POTASSIUM SERUM 3.6 MMOL/L (3.5-5.1); SODIUM LEVEL 136 MMOL/L (136-145); TOTAL PROTEIN 6.6 G/DL (5.7-8.2)
[2024-04-22] MEDS ORDERED: ASPI81CH33 PO (17:00)
[2024-04-22] MEDS ORDERED: SERT25TA21 PO (17:00)
[2024-04-22] MEDS ORDERED: TRAZ-252 PO (17:00)
[2024-04-22] MEDS ORDERED: LISI20TA33 PO (17:00)
[2024-04-22] MEDS ORDERED: PANT40TA29 PO (17:00)
[2024-04-22] MEDS ORDERED: ONDA-83 PO (17:08)
[2024-04-22] MEDS ORDERED: RENV2TAB PO (17:08)
[2024-04-22] MEDS ORDERED: ACET-897 PO (17:08)
[2024-04-22] MEDS ORDERED: CHOL10007 PO (17:09)
[2024-04-22] MEDS ORDERED: HOME MED LIST COMPLETE! XX SCH (17:15)
[2024-04-22] MEDS ORDERED: FLEET ENEMA PR PRN (17:45)
[2024-04-22] MEDS ORDERED: DEXTROSE 50% 50ML SYRINGE IV PRN (17:45)
[2024-04-22] MEDS ORDERED: GLUCAGON INJ 1MG VIAL IM PRN (17:45)
[2024-04-22] MEDS ORDERED: ONDANSETRON 4MG TAB PO PRN (17:45)
[2024-04-22] MEDS ORDERED: NITROGLYCERIN 0.4MG SUBL TABLET SL PRN (17:45)
[2024-04-22] MEDS ORDERED: BISACODYL 10MG SUPP PR PRN (17:45)
[2024-04-22] MEDS ORDERED: GLUCAGON INJ 1MG VIAL SC PRN (17:45)
[2024-04-22] MEDS ORDERED: MOM 30ML SUSPENSION UDC PO PRN (17:45)
[2024-04-22] MEDS ORDERED: GLUCOSE 4 GM CHEW PO PRN (17:45)
[2024-04-22] MEDS: INSULIN LISPRO (NovoLOG) PER UNIT SC SCH (21:00)
[2024-04-22] MEDS: SERTRALINE HCL 25 MG TABLET PO SCH (21:02)
[2024-04-22] MEDS: rOPINIRole 1MG TAB PO SCH (21:02)
[2024-04-22] MEDS: SENOKOT S TAB PO SCH (21:02)
[2024-04-22] MEDS: GABAPENTIN 100 MG CAP PO SCH (21:02)
[2024-04-22] MEDS: CARVedilol 12.5 MG TAB PO SCH (21:02)
[2024-04-22] MEDS: ACETAMINOPHEN 500 MG TAB PO SCH (21:02)
[2024-04-22] MEDS: (RENVELA) SEVELAMER **CARBONate** 800 MG TAB PO SCH (21:03)
[2024-04-22] MEDS: ATORVASTATIN 20 MG TAB PO SCH (21:03)
[2024-04-22] MEDS: traZODone 25MG PER 1/2 TABLET PO SCH (21:03)
[2024-04-22] MEDS: PANTOPRAZOLE 40MG VIAL IV SCH (21:03)
[2024-04-23 05:25] VITALS: BP 165/63; TEMP 97.9; O2SAT 98
[2024-04-23] MEDS: INSULIN LISPRO (NovoLOG) PER UNIT SC SCH (08:14)
[2024-04-23] MEDS: ASPIRIN 81MG CHEW TABLET PO SCH (08:14)
[2024-04-23] MEDS: VITAMIN D 1,000 INTERNATIONAL UNITS TABLET PO SCH (08:14)
[2024-04-23 08:17] VITALS: BP 158/63
[2024-04-23] MEDS: NIFEdipine 30MG XL TAB PO SCH (08:17)
[2024-04-23] MEDS ORDERED: VITAMIN D 1,000 INTERNATIONAL UNITS TABLET PO SCH (09:00)
[2024-04-23 10:04] LABS: HEMATOCRIT 25.3 % (36.0-47.0); MEAN CORPUSCULAR HEMOGLOBIN 31.7 pg (27.0-33.0); MEAN CORPUSCULAR HGB CONC 33.6 g/dl (32.0-36.5); MEAN CORPUSCULAR VOLUME 94.4 fl (80.0-96.0); PLATELET COUNT, AUTOMATED 174 10^3/uL (150-450); RED BLOOD COUNT 2.68 10^6/uL (4.00-5.40); WHITE BLOOD COUNT 7.2 10^3/uL (4.0-10.0)
[2024-04-23 10:06] LABS: HEMOGLOBIN 8.5 g/dl (12.0-15.5)
[2024-04-23 10:29] LABS: CREATININE FOR GFR 3.69 MG/DL (0.55-1.30); GLOMERULAR FILTRATION RATE 12.9 (>39); MAGNESIUM LEVEL 1.8 MG/DL (1.8-2.4); POTASSIUM SERUM 3.9 MMOL/L (3.5-5.1)
[2024-04-23 12:00] VITALS: BP 149/64; TEMP 97.3; O2SAT 100
== END 2024-04-23 13:25 ==
LOC: M ED 10:06 → EDBD 10:06 → EEVIPCON 10:07 → M ED INP 10:07 → M MS5PR 19:00
PROVIDERS: ADMIT Internal Medicine; ATTEND Internal Medicine
DX: D59.9 Acquired hemolytic anemia, unspecified (principal); K29.70 Gastritis, unspecified, without bleeding; K92.1 Melena; K64.9 Unspecified hemorrhoids; N18.6 End stage renal disease; Z99.2 Dependence on renal dialysis; I48.0 Paroxysmal atrial fibrillation; I25.10 Atherosclerotic heart disease of native coronary artery without angina pectoris; I44.0 Atrioventricular block, first degree; E11.22 Type 2 diabetes mellitus with diabetic chronic kidney disease; I12.0 Hypertensive chronic kidney disease with stage 5 chronic kidney disease or end stage renal disease; J44.9 Chronic obstructive pulmonary disease, unspecified; I73.9 Peripheral vascular disease, unspecified; M54.50 Low back pain, unspecified; N25.0 Renal osteodystrophy; Z83.79 Family history of other diseases of the digestive system; Z82.3 Family history of stroke; Z83.3 Family history of diabetes mellitus; G47.33 Obstructive sleep apnea (adult) (pediatric); F41.9 Anxiety disorder, unspecified; F32.A Depression, unspecified; F03.C0 Unspecified dementia, severe, without behavioral disturbance, psychotic disturbance, mood disturbance, and anxiety; G25.81 Restless legs syndrome; E55.9 Vitamin D deficiency, unspecified; H40.9 Unspecified glaucoma; K59.00 Constipation, unspecified; Z99.81 Dependence on supplemental oxygen; Z95.5 Presence of coronary angioplasty implant and graft; Z95.1 Presence of aortocoronary bypass graft; Z95.2 Presence of prosthetic heart valve; Z90.89 Acquired absence of other organs; Z95.820 Peripheral vascular angioplasty status with implants and grafts; Z89.421 Acquired absence of other right toe(s); Z98.890 Other specified postprocedural states; Z84.1 Family history of disorders of kidney and ureter; Z88.0 Allergy status to penicillin; Z79.899 Other long term (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 therapy; Z79.4 Long term (current) use of insulin; Z66 Do not resuscitate
CPT/HCPCS: 36415; 36430; 80048; 80076; 83735; 85027; 86850; 86900; 86901; 86920; 87426; 93005; 96374; 96376; 99285; G0378; J1815; J2470; P9016

== ENCOUNTER → 2024-04-26 | Outpatient (REF) | payer MEDICARE ==
[~2024-04-26] MED LIST changes: +CHOL10007 PO; +ONDA-83 PO; +RENV2TAB PO; +SERT25TA21 PO; +TRAZ-252 PO
[2024-04-26 12:31] LABS: HEMATOCRIT 26.6 % (36.0-47.0); HEMOGLOBIN 8.7 g/dl (12.0-15.5); MEAN CORPUSCULAR HEMOGLOBIN 32.1 pg (27.0-33.0); MEAN CORPUSCULAR HGB CONC 32.7 g/dl (32.0-36.5); MEAN CORPUSCULAR VOLUME 98.2 fl (80.0-96.0); PLATELET COUNT, AUTOMATED 193 10^3/uL (150-450); RED BLOOD COUNT 2.71 10^6/uL (4.00-5.40); WHITE BLOOD COUNT 9.4 10^3/uL (4.0-10.0)
== END ==
PROVIDERS: ATTEND Physician Assistant
DX: D64.9 Anemia, unspecified (principal)

== ENCOUNTER → 2024-04-28 | Outpatient (REF) | payer MEDICARE ==
[2024-04-28 08:04] LABS: HEMATOCRIT 25.2 % (36.0-47.0); HEMOGLOBIN 8.2 g/dl (12.0-15.5); MEAN CORPUSCULAR HEMOGLOBIN 32.2 pg (27.0-33.0); MEAN CORPUSCULAR HGB CONC 32.5 g/dl (32.0-36.5); MEAN CORPUSCULAR VOLUME 98.8 fl (80.0-96.0); PLATELET COUNT, AUTOMATED 186 10^3/uL (150-450); RED BLOOD COUNT 2.55 10^6/uL (4.00-5.40); WHITE BLOOD COUNT 8.6 10^3/uL (4.0-10.0)
== END ==
PROVIDERS: ATTEND Nurse Practitioner Adult Health
DX: D64.9 Anemia, unspecified (principal)

== ENCOUNTER → 2024-05-05 | Outpatient (REF) | payer MEDICARE ==
[2024-05-05 11:52] LABS: HEMOGLOBIN 9.4 g/dl (12.0-15.5); MEAN CORPUSCULAR HEMOGLOBIN 32.8 pg (27.0-33.0); MEAN CORPUSCULAR HGB CONC 32.4 g/dl (32.0-36.5); PLATELET COUNT, AUTOMATED 156 10^3/uL (150-450); RED BLOOD COUNT 2.87 10^6/uL (4.00-5.40); WHITE BLOOD COUNT 6.6 10^3/uL (4.0-10.0)
== END ==
PROVIDERS: ATTEND Physician Assistant
DX: D64.9 Anemia, unspecified (principal)

== ENCOUNTER → 2024-05-12 | Outpatient (REF) | payer MEDICARE, MEDICAID, OTHER ==
[2024-05-12 09:43] LABS: MEAN CORPUSCULAR HEMOGLOBIN 32.7 pg (27.0-33.0); MEAN CORPUSCULAR HGB CONC 33.3 g/dl (32.0-36.5); PLATELET COUNT, AUTOMATED 157 10^3/uL (150-450); RED BLOOD COUNT 3.06 10^6/uL (4.00-5.40); WHITE BLOOD COUNT 7.8 10^3/uL (4.0-10.0)
[2024-05-12 10:24] LABS: CREATININE FOR GFR 4.67 MG/DL (0.55-1.30); GLOMERULAR FILTRATION RATE 9.8 (>39)
== END ==
PROVIDERS: ATTEND Physician Assistant
DX: K92.2 Gastrointestinal hemorrhage, unspecified (principal)

== ENCOUNTER → 2024-05-17 | Outpatient (REF) | payer MEDICARE | PROVIDERS: ATTEND Nurse Practitioner Adult Health | DX: D64.9 Anemia, unspecified (principal); Z53.8 Procedure and treatment not carried out for other reasons ==

== ENCOUNTER → 2024-05-19 | Outpatient (REF) | payer MEDICARE, MEDICAID, OTHER | PROVIDERS: ATTEND Nurse Practitioner Adult Health | DX: Z53.8 Procedure and treatment not carried out for other reasons (principal) ==

== ENCOUNTER → 2024-05-21 | Outpatient (REF) | payer MEDICARE ==
[2024-05-21 08:29] LABS: HEMATOCRIT 30.1 % (36.0-47.0); HEMOGLOBIN 9.7 g/dl (12.0-15.5); MEAN CORPUSCULAR HEMOGLOBIN 32.4 pg (27.0-33.0); MEAN CORPUSCULAR HGB CONC 32.2 g/dl (32.0-36.5); MEAN CORPUSCULAR VOLUME 100.7 fl (80.0-96.0); PLATELET COUNT, AUTOMATED 216 10^3/uL (150-450); RED BLOOD COUNT 2.99 10^6/uL (4.00-5.40); WHITE BLOOD COUNT 7.5 10^3/uL (4.0-10.0)
[2024-05-21 08:52] LABS: CHOLESTEROL RISK RATIO 3.87 (<5); HDL CHOLESTEROL 45.7 MG/DL (>40); LDL CHOLESTEROL 84.7 MG/DL (<100); NON-HDL-C 131.3 MG/DL
== END ==
PROVIDERS: ATTEND Internal Medicine
DX: E78.5 Hyperlipidemia, unspecified (principal)

== ENCOUNTER → 2024-05-24 | Outpatient (REF) | payer MEDICARE, MEDICAID, OTHER | PROVIDERS: ATTEND Physician Assistant | DX: D64.9 Anemia, unspecified (principal); Z53.8 Procedure and treatment not carried out for other reasons ==

== ENCOUNTER → 2024-05-26 | Outpatient (REF) | payer MEDICARE, MEDICAID, OTHER ==
[2024-05-26 13:05] LABS: HEMATOCRIT 27.8 % (36.0-47.0); HEMOGLOBIN 9.2 g/dl (12.0-15.5); MEAN CORPUSCULAR HEMOGLOBIN 33.2 pg (27.0-33.0); MEAN CORPUSCULAR HGB CONC 33.1 g/dl (32.0-36.5); MEAN CORPUSCULAR VOLUME 100.4 fl (80.0-96.0); PLATELET COUNT, AUTOMATED 160 10^3/uL (150-450); RED BLOOD COUNT 2.77 10^6/uL (4.00-5.40); WHITE BLOOD COUNT 7.8 10^3/uL (4.0-10.0)
== END ==
PROVIDERS: ATTEND Internal Medicine
DX: D64.9 Anemia, unspecified (principal)

== ENCOUNTER → 2024-05-31 | Outpatient (REF) | payer MEDICARE, MEDICAID, OTHER ==
[~2024-05-31] MED LIST changes: +GABA-1172 PO; -GABA-282 PO
[2024-05-31 08:45] LABS: HEMOGLOBIN 9.5 g/dl (12.0-15.5); MEAN CORPUSCULAR HEMOGLOBIN 32.4 pg (27.0-33.0); MEAN CORPUSCULAR HGB CONC 32.8 g/dl (32.0-36.5); PLATELET COUNT, AUTOMATED 146 10^3/uL (150-450); RED BLOOD COUNT 2.93 10^6/uL (4.00-5.40); WHITE BLOOD COUNT 7.6 10^3/uL (4.0-10.0)
== END ==
PROVIDERS: ATTEND Nurse Practitioner Adult Health
DX: D64.9 Anemia, unspecified (principal)

== ENCOUNTER → 2024-06-07 | Outpatient (REF) | payer MEDICARE, MEDICAID, OTHER ==
[2024-06-07 10:08] LABS: HEMOGLOBIN 10.4 g/dl (12.0-15.5); MEAN CORPUSCULAR HEMOGLOBIN 33.2 pg (27.0-33.0); MEAN CORPUSCULAR HGB CONC 32.5 g/dl (32.0-36.5); MEAN CORPUSCULAR VOLUME 102.2 fl (80.0-96.0); PLATELET COUNT, AUTOMATED 167 10^3/uL (150-450); RED BLOOD COUNT 3.13 10^6/uL (4.00-5.40); WHITE BLOOD COUNT 6.8 10^3/uL (4.0-10.0)
== END ==
PROVIDERS: ATTEND Nurse Practitioner Adult Health
DX: D64.9 Anemia, unspecified (principal)

== ENCOUNTER 2024-06-13 03:35 | Emergency (ER) | payer MEDICARE, MEDICAID ==
[~2024-06-13] VITALS: Ht 167.6 cm; Wt 115.5 kg
[2024-06-13 04:01] LABS: BASO % 0.4 % (0.0-1.0); EOS # 0.1 10^3/uL (0.0-0.5); EOS % 1.7 % (0.0-3.0); HEMATOCRIT 29.7 % (36.0-47.0); HEMOGLOBIN 9.5 g/dl (12.0-15.5); LYMPH # 1.5 10^3/uL (1.5-5.0); LYMPH % 21.7 % (24.0-44.0); MEAN CORPUSCULAR HEMOGLOBIN 32.5 pg (27.0-33.0); MEAN CORPUSCULAR VOLUME 101.7 fl (80.0-96.0); MONO # 0.6 10^3/uL (0.0-0.8); MONO % 8.2 % (2.0-8.0); NEUTROPHILS # 4.8 10^3/uL (1.5-8.5); NEUTROPHILS % 67.7 % (36.0-66.0); PLATELET COUNT, AUTOMATED 152 10^3/uL (150-450); RED BLOOD COUNT 2.92 10^6/uL (4.00-5.40); WHITE BLOOD COUNT 7.1 10^3/uL (4.0-10.0)
[2024-06-13 04:31] LABS: BLOOD UREA NITROGEN 33 MG/DL (9-23); CALCIUM LEVEL 9.4 MG/DL (8.3-10.6); CARBON DIOXIDE LEVEL 30 MMOL/L (20-31); CHLORIDE LEVEL 104 MMOL/L (98-107); CK-MB VALUE MASS < 1.0 NG/ML (<3.6); CPK CREATINE PHOSPHOKINASE 44 U/L (34-145); CREATININE FOR GFR 3.58 MG/DL (0.55-1.30); GLOMERULAR FILTRATION RATE 13.4 (>39); GLUCOSE, FASTING 291 MG/DL (74-106); MB/CK RELATIVE INDEX 2.27 (< OR =4); POTASSIUM SERUM 4.3 MMOL/L (3.5-5.1); SODIUM LEVEL 140 MMOL/L (136-145)
[2024-06-13] MEDS: ACETAMINOPHEN TAB 650MG DOSE (2X325MG) PO ONE (05:19)
[2024-06-13 07:36] LABS: CK-MB VALUE MASS < 1.0 NG/ML (<3.6)
[2024-06-13 07:40] LABS: CPK CREATINE PHOSPHOKINASE 41 U/L (34-145); MB/CK RELATIVE INDEX 2.43 (< OR =4)
[2024-06-13] MEDS ORDERED: FERR325T3 PO (09:11)
[2024-06-13] MEDS ORDERED: INSUH10VL SC (09:11)
[2024-06-13] MEDS ORDERED: HOME MED LIST COMPLETE! XX SCH (09:20)
[2024-06-13 09:30] VITALS: BP 160/72; TEMP 97.4; O2SAT 98
== END 2024-06-13 09:30 | disposition home or self-care (01) ==
LOC: M ED 03:35
DX: R07.9 Chest pain, unspecified (principal); I44.0 Atrioventricular block, first degree; I25.2 Old myocardial infarction; I45.81 Long QT syndrome; I48.91 Unspecified atrial fibrillation; I50.22 Chronic systolic (congestive) heart failure; J44.9 Chronic obstructive pulmonary disease, unspecified; Z88.0 Allergy status to penicillin; Z79.1 Long term (current) use of non-steroidal anti-inflammatories (NSAID); Z79.4 Long term (current) use of insulin; Z79.899 Other long term (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 therapy

== ENCOUNTER → 2024-06-14 | Outpatient (REF) | payer MEDICARE ==
[~2024-06-14] MED LIST changes: +FERR325T3 PO; +INSUH10VL SC
[2024-06-14 09:33] LABS: HEMATOCRIT 32.9 % (36.0-47.0); HEMOGLOBIN 10.4 g/dl (12.0-15.5); MEAN CORPUSCULAR HEMOGLOBIN 32.4 pg (27.0-33.0); MEAN CORPUSCULAR HGB CONC 31.6 g/dl (32.0-36.5); MEAN CORPUSCULAR VOLUME 102.5 fl (80.0-96.0); PLATELET COUNT, AUTOMATED 163 10^3/uL (150-450); RED BLOOD COUNT 3.21 10^6/uL (4.00-5.40); WHITE BLOOD COUNT 8.6 10^3/uL (4.0-10.0)
[2024-06-14 10:04] LABS: CREATININE FOR GFR 4.88 MG/DL (0.55-1.30); GLOMERULAR FILTRATION RATE 9.3 (>39); POTASSIUM SERUM 4.7 MMOL/L (3.5-5.1)
[2024-06-14 10:09] LABS: HEMOGLOBIN A1c 6.8 % (4.0-6.0)
== END ==
PROVIDERS: ATTEND Nurse Practitioner Adult Health
DX: E11.9 Type 2 diabetes mellitus without complications (principal); K92.2 Gastrointestinal hemorrhage, unspecified

== ENCOUNTER → 2024-06-21 | Outpatient (REF) | payer MEDICARE, MEDICAID ==
[2024-06-21 10:11] LABS: HEMATOCRIT 30.7 % (36.0-47.0); HEMOGLOBIN 9.8 g/dl (12.0-15.5); MEAN CORPUSCULAR HEMOGLOBIN 32.5 pg (27.0-33.0); MEAN CORPUSCULAR HGB CONC 31.9 g/dl (32.0-36.5); MEAN CORPUSCULAR VOLUME 101.7 fl (80.0-96.0); PLATELET COUNT, AUTOMATED 167 10^3/uL (150-450); RED BLOOD COUNT 3.02 10^6/uL (4.00-5.40); WHITE BLOOD COUNT 9.2 10^3/uL (4.0-10.0)
== END ==
PROVIDERS: ATTEND Internal Medicine
DX: D64.9 Anemia, unspecified (principal)

== ENCOUNTER → 2024-06-28 | Outpatient (REF) | payer MEDICARE, MEDICAID ==
[2024-06-28 08:27] LABS: HEMATOCRIT 29.2 % (36.0-47.0); HEMOGLOBIN 9.5 g/dl (12.0-15.5); MEAN CORPUSCULAR HEMOGLOBIN 32.3 pg (27.0-33.0); MEAN CORPUSCULAR HGB CONC 32.5 g/dl (32.0-36.5); MEAN CORPUSCULAR VOLUME 99.3 fl (80.0-96.0); PLATELET COUNT, AUTOMATED 136 10^3/uL (150-450); RED BLOOD COUNT 2.94 10^6/uL (4.00-5.40)
== END ==
PROVIDERS: ATTEND Nurse Practitioner Adult Health
DX: D64.9 Anemia, unspecified (principal)

== ENCOUNTER → 2024-07-05 | Outpatient (REF) | payer MEDICARE, MEDICAID | PROVIDERS: ATTEND Nurse Practitioner Adult Health | DX: D64.9 Anemia, unspecified (principal); Z53.9 Procedure and treatment not carried out, unspecified reason ==

== ENCOUNTER → 2024-07-07 | Outpatient (REF) | payer MEDICARE, MEDICAID ==
[2024-07-07 09:44] LABS: HEMATOCRIT 31.1 % (36.0-47.0); HEMOGLOBIN 10.1 g/dl (12.0-15.5); MEAN CORPUSCULAR HEMOGLOBIN 32.8 pg (27.0-33.0); MEAN CORPUSCULAR HGB CONC 32.5 g/dl (32.0-36.5); PLATELET COUNT, AUTOMATED 147 10^3/uL (150-450); RED BLOOD COUNT 3.08 10^6/uL (4.00-5.40); WHITE BLOOD COUNT 8.1 10^3/uL (4.0-10.0)
== END ==
PROVIDERS: ATTEND Nurse Practitioner Adult Health
DX: D64.9 Anemia, unspecified (principal)

== ENCOUNTER → 2024-07-12 | Outpatient (REF) | payer MEDICARE, MEDICAID | PROVIDERS: ATTEND Nurse Practitioner Adult Health | DX: D64.9 Anemia, unspecified (principal); Z53.9 Procedure and treatment not carried out, unspecified reason ==

== ENCOUNTER → 2024-07-12 | Outpatient (REF) | payer MEDICARE, MEDICAID | PROVIDERS: ATTEND Nurse Practitioner Adult Health | DX: D64.9 Anemia, unspecified (principal); Z53.9 Procedure and treatment not carried out, unspecified reason ==

== ENCOUNTER → 2024-07-12 | Outpatient (REF) | payer MEDICARE, MEDICAID | PROVIDERS: ATTEND Nurse Practitioner Adult Health | DX: D64.9 Anemia, unspecified (principal); Z53.9 Procedure and treatment not carried out, unspecified reason ==

== ENCOUNTER → 2024-07-12 | Outpatient (REF) | payer MEDICARE, MEDICAID, OTHER ==
[2024-07-12 09:11] LABS: HEMOGLOBIN 10.7 g/dl (12.0-15.5); MEAN CORPUSCULAR HEMOGLOBIN 31.4 pg (27.0-33.0); MEAN CORPUSCULAR HGB CONC 31.5 g/dl (32.0-36.5); MEAN CORPUSCULAR VOLUME 99.7 fl (80.0-96.0); PLATELET COUNT, AUTOMATED 153 10^3/uL (150-450); RED BLOOD COUNT 3.41 10^6/uL (4.00-5.40); WHITE BLOOD COUNT 7.4 10^3/uL (4.0-10.0)
[2024-07-12 09:32] LABS: CALCIUM LEVEL 9.8 MG/DL (8.3-10.6); CREATININE FOR GFR 5.57 MG/DL (0.55-1.30); POTASSIUM SERUM 4.7 MMOL/L (3.5-5.1)
== END ==
PROVIDERS: ATTEND Internal Medicine
DX: K92.2 Gastrointestinal hemorrhage, unspecified (principal)

== ENCOUNTER → 2024-07-19 | Outpatient (CLI) | payer MEDICARE, MEDICAID | LOC: M SOG 07:52 | PROVIDERS: ATTEND Orthopaedic Surgery | DX: Z47.89 Encounter for other orthopedic aftercare (principal); M25.551 Pain in right hip ==

== ENCOUNTER → 2024-07-26 | Outpatient (REF) | payer MEDICARE, MEDICAID | PROVIDERS: ATTEND Nurse Practitioner Adult Health | DX: Z01.818 Encounter for other preprocedural examination (principal); Z53.9 Procedure and treatment not carried out, unspecified reason ==

== ENCOUNTER → 2024-07-30 | Outpatient (CLI) | payer MEDICARE, MEDICAID | LOC: M RAD 09:50 | PROVIDERS: ATTEND Nurse Practitioner Adult Health | DX: Z01.818 Encounter for other preprocedural examination (principal) ==

== ENCOUNTER → 2024-08-02 | Outpatient (REF) | payer MEDICARE, MEDICAID ==
[2024-08-02 12:00] LABS: HEMATOCRIT 37.4 % (36.0-47.0); HEMOGLOBIN 12.1 g/dl (12.0-15.5); MEAN CORPUSCULAR HGB CONC 32.4 g/dl (32.0-36.5); MEAN CORPUSCULAR VOLUME 98.9 fl (80.0-96.0); PLATELET COUNT, AUTOMATED 162 10^3/uL (150-450); RED BLOOD COUNT 3.78 10^6/uL (4.00-5.40); WHITE BLOOD COUNT 6.8 10^3/uL (4.0-10.0)
[2024-08-02 12:11] LABS: ERYTHROCYTE SEDIMENTATION RATE 19 mm/hr (0-30)
[2024-08-02 12:30] LABS: C REACTIVE PROTEIN QUANTITATIV < 0.40 MG/DL (<1.0)
[2024-08-02 13:17] LABS: ALBUMIN 3.6 G/DL (3.2-5.2); ALKALINE PHOSPHATASE 221 U/L (35-104); ALT/SGPT 13 U/L (7.0-40); AST/SGOT < 8 U/L (<34); BILIRUBIN,TOTAL 0.5 MG/DL (0.3-1.2); BLOOD UREA NITROGEN 66 MG/DL (9-23); CALCIUM LEVEL 9.6 MG/DL (8.3-10.6); CARBON DIOXIDE LEVEL 26 MMOL/L (20-31); CHLORIDE LEVEL 100 MMOL/L (98-107); GLOMERULAR FILTRATION RATE 7.5 (>39); GLUCOSE, FASTING 226 MG/DL (74-106); POTASSIUM SERUM 4.6 MMOL/L (3.5-5.1); SODIUM LEVEL 137 MMOL/L (136-145); TOTAL PROTEIN 6.6 G/DL (5.7-8.2)
== END ==
PROVIDERS: ATTEND Nurse Practitioner Adult Health
DX: M06.9 Rheumatoid arthritis, unspecified (principal)

== ENCOUNTER → 2024-08-09 | Outpatient (REF) | payer MEDICARE, MEDICAID ==
[~2024-08-09] MED LIST changes: +HUMA100I5 SC
[2024-08-09 10:20] LABS: HEMATOCRIT 37.5 % (36.0-47.0); MEAN CORPUSCULAR HEMOGLOBIN 31.6 pg (27.0-33.0); MEAN CORPUSCULAR VOLUME 98.7 fl (80.0-96.0); PLATELET COUNT, AUTOMATED 144 10^3/uL (150-450); WHITE BLOOD COUNT 7.7 10^3/uL (4.0-10.0)
[2024-08-09 10:47] LABS: CALCIUM LEVEL 9.8 MG/DL (8.3-10.6); CREATININE FOR GFR 6.34 MG/DL (0.55-1.30); GLOMERULAR FILTRATION RATE 6.9 (>39); POTASSIUM SERUM 4.8 MMOL/L (3.5-5.1)
== END ==
PROVIDERS: ATTEND Nurse Practitioner Adult Health
DX: D64.9 Anemia, unspecified (principal)

== ENCOUNTER 2024-08-12 09:42 | Emergency (ER) | payer MEDICARE, MEDICAID ==
[~2024-08-12] VITALS: Ht 154.9 cm; Wt 90.0 kg
[~2024-08-12 09:42] MED LIST changes: -HUMA100I5 SC
[2024-08-12 10:31] LABS: BASO % 0.3 % (0.0-1.0); EOS # 0.1 10^3/uL (0.0-0.5); EOS % 1.6 % (0.0-3.0); HEMATOCRIT 34.5 % (36.0-47.0); HEMOGLOBIN 11.5 g/dl (12.0-15.5); LYMPH # 1.2 10^3/uL (1.5-5.0); LYMPH % 17.8 % (24.0-44.0); MEAN CORPUSCULAR HEMOGLOBIN 32.3 pg (27.0-33.0); MEAN CORPUSCULAR HGB CONC 33.3 g/dl (32.0-36.5); MEAN CORPUSCULAR VOLUME 96.9 fl (80.0-96.0); MONO # 0.6 10^3/uL (0.0-0.8); MONO % 8.2 % (2.0-8.0); NEUTROPHILS % 71.7 % (36.0-66.0); PLATELET COUNT, AUTOMATED 148 10^3/uL (150-450); RED BLOOD COUNT 3.56 10^6/uL (4.00-5.40)
[2024-08-12 10:54] LABS: CALCIUM LEVEL 9.7 MG/DL (8.3-10.6); CREATININE FOR GFR 2.44 MG/DL (0.55-1.30); GLOMERULAR FILTRATION RATE 20.8 (>39); POTASSIUM SERUM 3.5 MMOL/L (3.5-5.1)
[2024-08-12] MEDS: CARVedilol 12.5 MG TAB PO ONE (13:06)
[2024-08-12] MEDS ORDERED: HUMA100I5 SC ×2 (13:21)
[2024-08-12] MEDS ORDERED: HOME MED LIST COMPLETE! XX SCH (13:25)
[2024-08-12 14:57] VITALS: BP 188/90; TEMP 97.3; O2SAT 97
== END 2024-08-12 15:17 | disposition home or self-care (01) ==
LOC: EDBD 09:42 → M ED 09:42
DX: R07.89 Other chest pain (principal); I12.0 Hypertensive chronic kidney disease with stage 5 chronic kidney disease or end stage renal disease; I25.2 Old myocardial infarction; I44.0 Atrioventricular block, first degree; E11.9 Type 2 diabetes mellitus without complications; I48.91 Unspecified atrial fibrillation; J44.9 Chronic obstructive pulmonary disease, unspecified; G47.33 Obstructive sleep apnea (adult) (pediatric); Z87.891 Personal history of nicotine dependence; Z88.0 Allergy status to penicillin; Z79.1 Long term (current) use of non-steroidal anti-inflammatories (NSAID); Z79.4 Long term (current) use of insulin; Z79.899 Other long term (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 therapy

== ENCOUNTER → 2024-09-13 | Outpatient (REF) | payer MEDICARE, MEDICAID ==
[~2024-09-13] MED LIST changes: +HUMA100I5 SC
[2024-09-13 10:33] LABS: HEMATOCRIT 33.2 % (36.0-47.0); HEMOGLOBIN 10.7 g/dl (12.0-15.5); MEAN CORPUSCULAR HEMOGLOBIN 32.9 pg (27.0-33.0); MEAN CORPUSCULAR HGB CONC 32.2 g/dl (32.0-36.5); MEAN CORPUSCULAR VOLUME 102.2 fl (80.0-96.0); PLATELET COUNT, AUTOMATED 152 10^3/uL (150-450); RED BLOOD COUNT 3.25 10^6/uL (4.00-5.40); WHITE BLOOD COUNT 6.7 10^3/uL (4.0-10.0)
[2024-09-13 10:52] LABS: CALCIUM LEVEL 9.4 MG/DL (8.3-10.6); CREATININE FOR GFR 5.58 MG/DL (0.55-1.30); POTASSIUM SERUM 4.8 MMOL/L (3.5-5.1)
== END ==
PROVIDERS: ATTEND Nurse Practitioner Adult Health
DX: K92.2 Gastrointestinal hemorrhage, unspecified (principal)

== ENCOUNTER → 2024-10-11 | Outpatient (REF) | payer MEDICARE, MEDICAID ==
[2024-10-11 08:02] LABS: HEMATOCRIT 38.7 % (36.0-47.0); MEAN CORPUSCULAR VOLUME 103.2 fl (80.0-96.0); PLATELET COUNT, AUTOMATED 142 10^3/uL (150-450); RED BLOOD COUNT 3.75 10^6/uL (4.00-5.40); WHITE BLOOD COUNT 7.1 10^3/uL (4.0-10.0)
[2024-10-11 08:30] LABS: CALCIUM LEVEL 9.1 MG/DL (8.3-10.6); CREATININE FOR GFR 6.25 MG/DL (0.55-1.30)
[2024-10-11 08:31] LABS: HEMOGLOBIN A1c 5.9 % (4.0-6.0)
== END ==
PROVIDERS: ATTEND Internal Medicine
DX: K92.2 Gastrointestinal hemorrhage, unspecified (principal); E11.9 Type 2 diabetes mellitus without complications

== ENCOUNTER → 2024-11-08 | Outpatient (REF) | payer MEDICARE, MEDICAID ==
[2024-11-08 09:13] LABS: HEMATOCRIT 34.6 % (36.0-47.0); HEMOGLOBIN 11.3 g/dl (12.0-15.5); MEAN CORPUSCULAR HEMOGLOBIN 32.3 pg (27.0-33.0); MEAN CORPUSCULAR HGB CONC 32.7 g/dl (32.0-36.5); MEAN CORPUSCULAR VOLUME 98.9 fl (80.0-96.0); PLATELET COUNT, AUTOMATED 116 10^3/uL (150-450); WHITE BLOOD COUNT 9.2 10^3/uL (4.0-10.0)
[2024-11-08 09:28] LABS: CALCIUM LEVEL 9.2 MG/DL (8.3-10.6); CREATININE FOR GFR 6.49 MG/DL (0.55-1.30); GLOMERULAR FILTRATION RATE 6.7 (>39); POTASSIUM SERUM 4.8 MMOL/L (3.5-5.1)
== END ==
PROVIDERS: ATTEND Nurse Practitioner Family
DX: K92.2 Gastrointestinal hemorrhage, unspecified (principal)

== ENCOUNTER → 2024-11-19 | Outpatient (REF) | payer MEDICARE, MEDICAID ==
[2024-11-19 13:56] LABS: HEMATOCRIT 27.7 % (36.0-47.0); HEMOGLOBIN 8.9 g/dl (12.0-15.5); MEAN CORPUSCULAR HEMOGLOBIN 32.7 pg (27.0-33.0); MEAN CORPUSCULAR HGB CONC 32.1 g/dl (32.0-36.5); MEAN CORPUSCULAR VOLUME 101.8 fl (80.0-96.0); PLATELET COUNT, AUTOMATED 118 10^3/uL (150-450); RED BLOOD COUNT 2.72 10^6/uL (4.00-5.40); WHITE BLOOD COUNT 9.6 10^3/uL (4.0-10.0)
[2024-11-19 17:39] LABS: APPEARANCE, URINE CLOUDY (CLEAR); BACTERIA, URINE AUTO NEGATIVE (NEGATIVE); BILIRUBIN, URINE AUTO NEGATIVE (NEGATIVE); BLOOD, URINE BLOOD 1+ (NEGATIVE); COLOR, URINE AMBER (YELLOW); GLUCOSE, URINE (UA) AUTO NEGATIVE (NEGATIVE); KETONE, URINE AUTO NEGATIVE (NEGATIVE); LEUKOCYTE ESTERASE, URINE AUTO 3+ (NEGATIVE); MUCUS, URINE SMALL (NEGATIVE); NITRITE, URINE AUTO NEGATIVE (NEGATIVE); PROTEIN, URINE AUTO 3+ mg/dL (NEGATIVE); RBC, URINE AUTO 6 /HPF (0-3); SPECIFIC GRAVITY URINE AUTO 1.019 (1.002-1.035); SQUAMOUS EPITHELIAL CELL UR AU 1 /HPF (0-6); UROBILINOGEN, URINE AUTO 0.2 mg/dL (0.0-2.0); WBC, URINE AUTO TNTC /HPF (0-3)
== END ==
PROVIDERS: ATTEND Nurse Practitioner Family
DX: R53.83 Other fatigue (principal); R41.0 Disorientation, unspecified

== ENCOUNTER → 2024-11-29 | Outpatient (REF) | payer MEDICARE, MEDICAID ==
[2024-11-29 14:57] LABS: HEMATOCRIT 22.6 % (36.0-47.0); HEMOGLOBIN 7.2 g/dl (12.0-15.5); MEAN CORPUSCULAR HEMOGLOBIN 33.2 pg (27.0-33.0); MEAN CORPUSCULAR HGB CONC 31.9 g/dl (32.0-36.5); MEAN CORPUSCULAR VOLUME 104.1 fl (80.0-96.0); PLATELET COUNT, AUTOMATED 165 10^3/uL (150-450); RED BLOOD COUNT 2.17 10^6/uL (4.00-5.40); WHITE BLOOD COUNT 9.2 10^3/uL (4.0-10.0)
[2024-11-29 15:27] LABS: ALBUMIN 2.9 G/DL (3.2-5.2); ALKALINE PHOSPHATASE 172 U/L (35-104); ALT/SGPT 11 U/L (7.0-40); AST/SGOT < 8 U/L (<34); BILIRUBIN,TOTAL 0.3 MG/DL (0.3-1.2); BLOOD UREA NITROGEN 58 MG/DL (9-23); CALCIUM LEVEL 8.7 MG/DL (8.3-10.6); CARBON DIOXIDE LEVEL 26 MMOL/L (20-31); CHLORIDE LEVEL 100 MMOL/L (98-107); CREATININE FOR GFR 5.99 MG/DL (0.55-1.30); GLOMERULAR FILTRATION RATE 7.4 (>39); GLUCOSE, FASTING 171 MG/DL (74-106); POTASSIUM SERUM 4.3 MMOL/L (3.5-5.1); SODIUM LEVEL 138 MMOL/L (136-145)
== END ==
PROVIDERS: ATTEND Nurse Practitioner Family
DX: D64.9 Anemia, unspecified (principal)

== ENCOUNTER → 2024-11-30 | Outpatient (REF) | payer MEDICARE, MEDICAID ==
[~2024-11-30] MED LIST changes: +ACET-683 PO; +ATIV1TAB10 PO; +BENZ1LOZ9 PO; +CALC500T61 PO; +DULC10SU2 PR; +LIDO1ADH20 TP; +LIDO76.52 TOP; +MORP1SOL5 PO; +SERT-141 PO
[2024-11-30 12:45] LABS: HEMOGLOBIN 8.1 g/dl (12.0-15.5); MEAN CORPUSCULAR HEMOGLOBIN 31.8 pg (27.0-33.0); MEAN CORPUSCULAR HGB CONC 31.2 g/dl (32.0-36.5); PLATELET COUNT, AUTOMATED 184 10^3/uL (150-450); RED BLOOD COUNT 2.55 10^6/uL (4.00-5.40); WHITE BLOOD COUNT 9.2 10^3/uL (4.0-10.0)
== END ==
PROVIDERS: ATTEND Nurse Practitioner Family
DX: N18.6 End stage renal disease (principal); D63.1 Anemia in chronic kidney disease

== ENCOUNTER → 2024-12-01 | Outpatient (REF) | payer MEDICARE, MEDICAID ==
[~2024-12-01] MED LIST changes: -ACET-683 PO; -ATIV1TAB10 PO; -BENZ1LOZ9 PO; -CALC500T61 PO; -DULC10SU2 PR; -LIDO1ADH20 TP; -LIDO76.52 TOP; -MORP1SOL5 PO; -SERT-141 PO
[2024-12-01 12:02] LABS: HEMATOCRIT 21.8 % (36.0-47.0); HEMOGLOBIN 7.1 g/dl (12.0-15.5); MEAN CORPUSCULAR HEMOGLOBIN 32.9 pg (27.0-33.0); MEAN CORPUSCULAR HGB CONC 32.6 g/dl (32.0-36.5); MEAN CORPUSCULAR VOLUME 100.9 fl (80.0-96.0); PLATELET COUNT, AUTOMATED 166 10^3/uL (150-450); RED BLOOD COUNT 2.16 10^6/uL (4.00-5.40); WHITE BLOOD COUNT 8.4 10^3/uL (4.0-10.0)
[2024-12-01 12:31] LABS: CALCIUM LEVEL 8.4 MG/DL (8.3-10.6); CREATININE FOR GFR 4.65 MG/DL (0.55-1.30); GLOMERULAR FILTRATION RATE 9.9 (>39); POTASSIUM SERUM 4.3 MMOL/L (3.5-5.1)
== END ==
PROVIDERS: ATTEND Nurse Practitioner Family
DX: D64.9 Anemia, unspecified (principal)

== ENCOUNTER → 2024-12-02 | Outpatient (REF) | payer MEDICARE, MEDICAID ==
[~2024-12-02] MED LIST changes: +ACET-683 PO; +ATIV1TAB10 PO; +BENZ1LOZ9 PO; +CALC500T61 PO; +DULC10SU2 PR; +LIDO1ADH20 TP; +LIDO76.52 TOP; +MORP1SOL5 PO; +SERT-141 PO
== END ==
PROVIDERS: ATTEND Nurse Practitioner Family
DX: D64.9 Anemia, unspecified (principal); Z53.8 Procedure and treatment not carried out for other reasons

== ENCOUNTER 2024-12-03 07:51 | Inpatient (IN) | payer MEDICARE, MEDICAID ==
[2024-12-03] VITALS (16 sets, daily range): BP systolic 104–188; BP diastolic 46–113; TEMP 97.2–98; O2SAT 76–99
[~2024-12-03] VITALS: Ht 154.9 cm; Wt 76.2 kg
[~2024-12-03 07:51] MED LIST changes: -ACET-683 PO; -ATIV1TAB10 PO; -BENZ1LOZ9 PO; -CALC500T61 PO; -DULC10SU2 PR; -LIDO1ADH20 TP; -LIDO76.52 TOP; -MORP1SOL5 PO; -SERT-141 PO; -SUCR1TA PO
[2024-12-03 09:12] LABS: BASO % 0.5 % (0.0-1.0); EOS # 0.1 10^3/uL (0.0-0.5); EOS % 1.2 % (0.0-3.0); HEMOGLOBIN 7.5 g/dl (12.0-15.5); LYMPH # 1.5 10^3/uL (1.5-5.0); LYMPH % 18.2 % (24.0-44.0); MEAN CORPUSCULAR HEMOGLOBIN 31.9 pg (27.0-33.0); MEAN CORPUSCULAR HGB CONC 31.3 g/dl (32.0-36.5); MEAN CORPUSCULAR VOLUME 102.1 fl (80.0-96.0); MONO # 0.7 10^3/uL (0.0-0.8); NEUTROPHILS # 5.8 10^3/uL (1.5-8.5); NEUTROPHILS % 71.4 % (36.0-66.0); PLATELET COUNT, AUTOMATED 180 10^3/uL (150-450); RED BLOOD COUNT 2.35 10^6/uL (4.00-5.40); WHITE BLOOD COUNT 8.1 10^3/uL (4.0-10.0)
[2024-12-03 09:19] LABS: INR 1.05; PARTIAL THROMBOPLASTIN TIME 31.3 SECONDS (24.8-34.2)
[2024-12-03] MEDS: PANTOPRAZOLE 40MG VIAL IV ONE (09:19)
[2024-12-03 09:31] LABS: MAGNESIUM LEVEL 2.1 MG/DL (1.8-2.4); PHOSPHORUS LEVEL 3.1 MG/DL (2.4-5.1)
[2024-12-03 09:32] LABS: ALBUMIN 3.3 G/DL (3.2-5.2); ALKALINE PHOSPHATASE 191 U/L (35-104); ALT/SGPT 12 U/L (7.0-40); AST/SGOT 8 U/L (<34); BILIRUBIN,DIRECT 0.1 MG/DL (<0.4); BILIRUBIN,TOTAL 0.4 MG/DL (0.3-1.2); BLOOD UREA NITROGEN 36 MG/DL (9-23); CALCIUM LEVEL 8.9 MG/DL (8.3-10.6); CARBON DIOXIDE LEVEL 30 MMOL/L (20-31); CHLORIDE LEVEL 99 MMOL/L (98-107); CK-MB VALUE MASS < 1.0 NG/ML (<3.6); CPK CREATINE PHOSPHOKINASE 35 U/L (34-145); CREATININE FOR GFR 4.21 MG/DL (0.55-1.30); GLOMERULAR FILTRATION RATE 10.7 (>39); GLUCOSE, FASTING 203 MG/DL (74-106); MB/CK RELATIVE INDEX 2.85 (< OR =4); POTASSIUM SERUM 4.3 MMOL/L (3.5-5.1); SODIUM LEVEL 139 MMOL/L (136-145); TOTAL PROTEIN 6.5 G/DL (5.7-8.2)
[2024-12-03 09:34] LABS: FREE T4 0.87 NG/DL (0.89-1.76); THYROID STIMULATING HORMONE 2.659 uIU/ML (0.55-4.78)
[2024-12-03] MEDS: DOBUTamine HCL 500,000 MCG in IV 1 EA IV SCH (10:37)
[2024-12-03] MEDS ORDERED: BENZ1LOZ9 PO (11:12)
[2024-12-03] MEDS ORDERED: DULC10SU2 PR (11:12)
[2024-12-03] MEDS ORDERED: LIDO1ADH20 TP (11:12)
[2024-12-03] MEDS ORDERED: SERT-141 PO (11:12)
[2024-12-03] MEDS ORDERED: LIDO76.52 TOP (11:12)
[2024-12-03] MEDS ORDERED: ACET-683 PO (11:12)
[2024-12-03] MEDS ORDERED: ATIV1TAB10 PO (11:12)
[2024-12-03] MEDS ORDERED: TRAM50TA2 PO (11:12)
[2024-12-03] MEDS ORDERED: CALC500T61 PO (11:12)
[2024-12-03] MEDS ORDERED: MORP1SOL5 PO (11:12)
[2024-12-03] MEDS ORDERED: HOME MED LIST COMPLETE! XX SCH (11:15)
[2024-12-03 12:15] LABS: CK-MB VALUE MASS < 1.0 NG/ML (<3.6)
[2024-12-03 12:17] LABS: CPK CREATINE PHOSPHOKINASE 36 U/L (34-145); MB/CK RELATIVE INDEX 2.77 (< OR =4)
[2024-12-03] MEDS ORDERED: NITROGLYCERIN 0.4MG SUBL TABLET SL PRN (12:20)
[2024-12-03] MEDS ORDERED: traMADol 50 MG TAB PO PRN (12:20)
[2024-12-03] MEDS: (RENVELA) SEVELAMER **CARBONate** 800 MG TAB PO SCH (12:30)
[2024-12-03] MEDS: rOPINIRole 1MG TAB PO SCH (15:03)
[2024-12-03] MEDS: NIFEdipine 30MG XL TAB PO SCH (15:04)
[2024-12-03] MEDS: VITAMIN D 1,000 INTERNATIONAL UNITS TABLET PO SCH (15:04)
[2024-12-03] MEDS: ACETAMINOPHEN 500 MG TAB PO SCH (15:04)
[2024-12-03] MEDS: FERROUS SULFATE 325MG TAB PO SCH (15:04)
[2024-12-03] MEDS: GABAPENTIN 100 MG CAP PO SCH (15:04)
[2024-12-03 18:37] LABS: BASO % 0.3 % (0.0-1.0); EOS # 0.1 10^3/uL (0.0-0.5); EOS % 0.5 % (0.0-3.0); HEMATOCRIT 24.4 % (36.0-47.0); LYMPH # 1.4 10^3/uL (1.5-5.0); LYMPH % 12.4 % (24.0-44.0); MEAN CORPUSCULAR HEMOGLOBIN 32.7 pg (27.0-33.0); MEAN CORPUSCULAR HGB CONC 32.8 g/dl (32.0-36.5); MEAN CORPUSCULAR VOLUME 99.6 fl (80.0-96.0); MONO # 0.8 10^3/uL (0.0-0.8); MONO % 6.6 % (2.0-8.0); NEUTROPHILS # 9.2 10^3/uL (1.5-8.5); NEUTROPHILS % 79.7 % (36.0-66.0); PLATELET COUNT, AUTOMATED 161 10^3/uL (150-450); RED BLOOD COUNT 2.45 10^6/uL (4.00-5.40); WHITE BLOOD COUNT 11.5 10^3/uL (4.0-10.0)
[2024-12-03] MEDS: LORazepam 0.5 MG TAB PO PRN (19:09)
[2024-12-03] MEDS: ATORVASTATIN 20 MG TAB PO SCH (20:25)
[2024-12-03] MEDS: PANTOPRAZOLE 40MG VIAL IV SCH (20:25)
[2024-12-03] MEDS: traZODone 50 MG TAB PO SCH (20:26)
[2024-12-03] MEDS: SERTRALINE HCL 50 MG TAB PO SCH (20:26)
[2024-12-03] MEDS: SENOKOT S TAB PO SCH (20:26)
[2024-12-04] VITALS (23 sets, daily range): BP systolic 103–156; BP diastolic 44–90; TEMP 96.8–97.8; O2SAT 94–100
[2024-12-04] MEDS: MORPHINE 10MG/0.5ML ORAL CONCENTRATE SOLUTION U/D PO PRN (03:02)
[2024-12-04] MEDS ORDERED: SODIUM CHLORIDE 0.9% 1000 ML IV PRN (06:55)
[2024-12-04] MEDS ORDERED: HEPARIN 1,000UNITS/ML 10ML VIAL (FOR RADIOLOGY & DIALYSIS ONLY) IV PRN (06:55)
[2024-12-04 06:56] LABS: HEMATOCRIT 24.9 % (36.0-47.0); HEMOGLOBIN 8.1 g/dl (12.0-15.5); MEAN CORPUSCULAR HEMOGLOBIN 32.7 pg (27.0-33.0); MEAN CORPUSCULAR HGB CONC 32.5 g/dl (32.0-36.5); MEAN CORPUSCULAR VOLUME 100.4 fl (80.0-96.0); PLATELET COUNT, AUTOMATED 164 10^3/uL (150-450); RED BLOOD COUNT 2.48 10^6/uL (4.00-5.40); WHITE BLOOD COUNT 9.3 10^3/uL (4.0-10.0)
[2024-12-04 07:21] LABS: BLOOD UREA NITROGEN 48 MG/DL (9-23); CALCIUM LEVEL 8.7 MG/DL (8.3-10.6); CARBON DIOXIDE LEVEL 29 MMOL/L (20-31); CHLORIDE LEVEL 101 MMOL/L (98-107); CREATININE FOR GFR 5.73 MG/DL (0.55-1.30); GLOMERULAR FILTRATION RATE 7.4 (>39); GLUCOSE, FASTING 165 MG/DL (74-106); POTASSIUM SERUM 4.5 MMOL/L (3.5-5.1); SODIUM LEVEL 139 MMOL/L (136-145)
[2024-12-04 10:13] LABS: HEPATITIS B SURFACE ANTIBODY POSITIVE (POSITIVE)
[2024-12-04 10:24] LABS: HEPATITIS B SURFACE ANTIGEN NEGATIVE (NEGATIVE)
[2024-12-04 10:45] LABS: HEPATITIS C VIRUS ABY INDEX 0.02 INDEX (<0.8)
[2024-12-04 10:46] LABS: HEPATITIS B CORE ANTIBODY IGM NEGATIVE (NEGATIVE)
[2024-12-04] MEDS: DARBEPOETIN 100MCG/0.5ML *DIALYSIS* SYRINGE IV SCH (16:16)
[2024-12-04] MEDS: HEPARIN 1,000UNITS/ML 10ML VIAL (FOR RADIOLOGY & DIALYSIS ONLY) XX SCH (16:16)
[2024-12-04] MEDS: ONDANSETRON 4MG TAB PO PRN (19:36)
[2024-12-05] VITALS (13 sets, daily range): BP systolic 114–154; BP diastolic 44–65; TEMP 96.9–98.1; O2SAT 92–100
[2024-12-05] MEDS: DOBUTamine HCL 500,000 MCG in IV 1 EA IV SCH (04:45)
[2024-12-05] MEDS: HEPARIN SOD (PORCINE) 5000UNITS/ML 1ML VIAL/SYRINGE SQ SCH (10:48)
[2024-12-05] MEDS: DOCUSATE SODIUM 100MG CAPSULE PO SCH (20:56)
[2024-12-06] VITALS (28 sets, daily range): BP systolic 110–147; BP diastolic 49–82; TEMP 97–98; O2SAT 91–98
[2024-12-06] MEDS: diphenhydrAMINE 25MG CAP PO ONE (00:13)
[2024-12-06 05:19] LABS: BASO % 0.4 % (0.0-1.0); EOS # 0.1 10^3/uL (0.0-0.5); EOS % 1.7 % (0.0-3.0); HEMATOCRIT 23.5 % (36.0-47.0); HEMOGLOBIN 7.3 g/dl (12.0-15.5); LYMPH # 1.4 10^3/uL (1.5-5.0); LYMPH % 16.8 % (24.0-44.0); MEAN CORPUSCULAR HEMOGLOBIN 31.7 pg (27.0-33.0); MEAN CORPUSCULAR HGB CONC 31.1 g/dl (32.0-36.5); MEAN CORPUSCULAR VOLUME 102.2 fl (80.0-96.0); MONO # 0.7 10^3/uL (0.0-0.8); MONO % 8.5 % (2.0-8.0); NEUTROPHILS # 5.9 10^3/uL (1.5-8.5); PLATELET COUNT, AUTOMATED 149 10^3/uL (150-450); WHITE BLOOD COUNT 8.2 10^3/uL (4.0-10.0)
[2024-12-06 05:40] LABS: ALBUMIN 2.9 G/DL (3.2-5.2); BILIRUBIN,TOTAL 0.5 MG/DL (0.3-1.2); CALCIUM LEVEL 8.2 MG/DL (8.3-10.6); CREATININE FOR GFR 5.26 MG/DL (0.55-1.30); GLOMERULAR FILTRATION RATE 8.2 (>39); MAGNESIUM LEVEL 1.9 MG/DL (1.8-2.4); PHOSPHORUS LEVEL 4.5 MG/DL (2.4-5.1); POTASSIUM SERUM 4.5 MMOL/L (3.5-5.1); TOTAL PROTEIN 5.7 G/DL (5.7-8.2)
[2024-12-06] MEDS ORDERED: MIDAZOLAM INJ 2MG/2ML VIAL As Ordered ONE (16:26)
[2024-12-06] MEDS ORDERED: KETAMINE HCL 200MG/20ML VIAL As Ordered ONE (16:26)
[2024-12-06] MEDS ORDERED: fentaNYL 100 MCG/2 ML INJECTION As Ordered ONE (16:26)
[2024-12-06] MEDS: ceFAZolin SODIUM 2 GM VIAL As Ordered ONE (16:55)
[2024-12-06] MEDS: AMIODARONE 150MG/3ML VIAL As Ordered ONE (18:23)
[2024-12-06] MEDS: LIDOCAINE 1% SDV 30ML VIAL As Ordered ONE (18:23)
[2024-12-06] MEDS: ISOVUE-300 61% 100ML VIAL As Ordered ONE (18:23)
[2024-12-06] MEDS ORDERED: fentaNYL 100 MCG/2 ML INJECTION IV PRN (18:40)
[2024-12-06] MEDS ORDERED: ONDANSETRON 4MG 2ML VIAL IV PRN (18:40)
[2024-12-07] VITALS (16 sets, daily range): BP systolic 109–129; BP diastolic 48–69; TEMP 97.3–99.6; O2SAT 90–96
[2024-12-07] MEDS: ceFAZolin SOD 1 GM in DEXTROSE 5% (D5W) ADV/MINI-BAG 50 ML IV SCH (02:17)
[2024-12-07 05:12] LABS: BASO % 0.4 % (0.0-1.0); EOS # 0.2 10^3/uL (0.0-0.5); EOS % 1.9 % (0.0-3.0); HEMATOCRIT 28.9 % (36.0-47.0); LYMPH % 13.1 % (24.0-44.0); MEAN CORPUSCULAR HEMOGLOBIN 31.6 pg (27.0-33.0); MEAN CORPUSCULAR HGB CONC 32.9 g/dl (32.0-36.5); MONO # 0.4 10^3/uL (0.0-0.8); MONO % 5.3 % (2.0-8.0); NEUTROPHILS # 6.1 10^3/uL (1.5-8.5); NEUTROPHILS % 78.8 % (36.0-66.0); PLATELET COUNT, AUTOMATED 135 10^3/uL (150-450); RED BLOOD COUNT 3.01 10^6/uL (4.00-5.40); WHITE BLOOD COUNT 7.7 10^3/uL (4.0-10.0)
[2024-12-07 05:28] LABS: HEMOGLOBIN 9.5 g/dl (12.0-15.5)
[2024-12-07 05:34] LABS: ALBUMIN 2.8 G/DL (3.2-5.2); ALKALINE PHOSPHATASE 180 U/L (35-104); ALT/SGPT < 9 U/L (7.0-40); AST/SGOT 9 U/L (<34); BILIRUBIN,TOTAL 0.4 MG/DL (0.3-1.2); BLOOD UREA NITROGEN 53 MG/DL (9-23); CALCIUM LEVEL 7.8 MG/DL (8.3-10.6); CARBON DIOXIDE LEVEL 23 MMOL/L (20-31); CHLORIDE LEVEL 103 MMOL/L (98-107); GLOMERULAR FILTRATION RATE 6.3 (>39); GLUCOSE, FASTING 131 MG/DL (74-106); POTASSIUM SERUM 5.2 MMOL/L (3.5-5.1); SODIUM LEVEL 136 MMOL/L (136-145); TOTAL PROTEIN 5.6 G/DL (5.7-8.2)
[2024-12-07] MEDS ORDERED: HEPARIN 1,000UNITS/ML 10ML VIAL (FOR RADIOLOGY & DIALYSIS ONLY) IV PRN (06:00)
[2024-12-07] MEDS ORDERED: SODIUM CHLORIDE 0.9% 1000 ML IV PRN (06:00)
[2024-12-07] MEDS: PANTOPRAZOLE 40MG TAB (PROTONIX) PO SCH (07:44)
[2024-12-07] MEDS: CARVedilol 12.5 MG TAB PO SCH (12:05)
[2024-12-07] MEDS: BISACODYL 10MG SUPP PR PRN (12:19)
[2024-12-07] MEDS ORDERED: SUCR1TA PO (12:54)
[2024-12-07] MEDS: HEPARIN 1,000UNITS/ML 10ML VIAL (FOR RADIOLOGY & DIALYSIS ONLY) XX SCH (13:14)
== END 2024-12-07 17:10 | DRG 242 ==
LOC: EDSEX 07:51 → M ED 07:51 → EDBD 07:51 → M ED INP 11:34 → M ICU 12:49
PROVIDERS: ADMIT Internal Medicine Pulmonary Disease; ATTEND Internal Medicine
PROC: 30233N1 Transfusion of Nonautologous Red Blood Cells into Peripheral Vein, Percutaneous Approach (ICD-10-PCS; 2024-12-03)
PROC: 5A1D70Z Performance of Urinary Filtration, Intermittent, Less than 6 Hours Per Day (ICD-10-PCS; 2024-12-04)
PROC: 02H63JZ Insertion of Pacemaker Lead into Right Atrium, Percutaneous Approach (ICD-10-PCS; 2024-12-06)
PROC: 02H73JZ Insertion of Pacemaker Lead into Left Atrium, Percutaneous Approach (ICD-10-PCS; 2024-12-06)
PROC: 0JH606Z Insertion of Pacemaker, Dual Chamber into Chest Subcutaneous Tissue and Fascia, Open Approach (ICD-10-PCS; principal; 2024-12-06 16:00)
DX: I44.2 Atrioventricular block, complete (principal); N18.6 End stage renal disease; I13.11 Hypertensive heart and chronic kidney disease without heart failure, with stage 5 chronic kidney disease, or end stage renal disease; J96.11 Chronic respiratory failure with hypoxia; Z99.2 Dependence on renal dialysis; I25.10 Atherosclerotic heart disease of native coronary artery without angina pectoris; I48.0 Paroxysmal atrial fibrillation; J44.9 Chronic obstructive pulmonary disease, unspecified; G47.33 Obstructive sleep apnea (adult) (pediatric); K29.50 Unspecified chronic gastritis without bleeding; E11.51 Type 2 diabetes mellitus with diabetic peripheral angiopathy without gangrene; E11.22 Type 2 diabetes mellitus with diabetic chronic kidney disease; D63.1 Anemia in chronic kidney disease; G25.81 Restless legs syndrome; F41.9 Anxiety disorder, unspecified; F32.A Depression, unspecified; F03.90 Unspecified dementia, unspecified severity, without behavioral disturbance, psychotic disturbance, mood disturbance, and anxiety; H40.9 Unspecified glaucoma; Z66 Do not resuscitate; Z99.81 Dependence on supplemental oxygen; Z95.3 Presence of xenogenic heart valve; Z98.62 Peripheral vascular angioplasty status; Z90.49 Acquired absence of other specified parts of digestive tract; Z79.4 Long term (current) use of insulin; Z79.899 Other long term (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 therapy; Z88.0 Allergy status to penicillin; Z89.421 Acquired absence of other right toe(s)

== ENCOUNTER → 2024-12-03 | Outpatient (REF) | payer MEDICARE, MEDICAID ==
[~2024-12-03] MED LIST changes: +SUCR1TA PO
[2024-12-03 06:24] LABS: HEMATOCRIT 21.4 % (36.0-47.0); MEAN CORPUSCULAR HEMOGLOBIN 32.7 pg (27.0-33.0); MEAN CORPUSCULAR HGB CONC 30.8 g/dl (32.0-36.5); MEAN CORPUSCULAR VOLUME 105.9 fl (80.0-96.0); PLATELET COUNT, AUTOMATED 161 10^3/uL (150-450); RED BLOOD COUNT 2.02 10^6/uL (4.00-5.40); WHITE BLOOD COUNT 6.4 10^3/uL (4.0-10.0)
[2024-12-03 06:29] LABS: HEMOGLOBIN 6.6 g/dl (12.0-15.5)
[2024-12-03 06:53] LABS: CALCIUM LEVEL 8.3 MG/DL (8.3-10.6); CREATININE FOR GFR 3.98 MG/DL (0.55-1.30); GLOMERULAR FILTRATION RATE 11.5 (>39); POTASSIUM SERUM 4.2 MMOL/L (3.5-5.1)
[2024-12-03 07:34] LABS: HEMATOCRIT 24.2 % (36.0-47.0); HEMOGLOBIN 7.5 g/dl (12.0-15.5); MEAN CORPUSCULAR HEMOGLOBIN 32.9 pg (27.0-33.0); MEAN CORPUSCULAR VOLUME 106.1 fl (80.0-96.0); PLATELET COUNT, AUTOMATED 172 10^3/uL (150-450); RED BLOOD COUNT 2.28 10^6/uL (4.00-5.40); WHITE BLOOD COUNT 7.8 10^3/uL (4.0-10.0)
== END ==
PROVIDERS: ATTEND Nurse Practitioner Family
DX: D64.9 Anemia, unspecified (principal)

== ENCOUNTER → 2024-12-06 | Outpatient (REF) | payer MEDICARE, MEDICAID ==
[~2024-12-06] MED LIST changes: +ACET-683 PO; +ATIV1TAB10 PO; +BENZ1LOZ9 PO; +CALC500T61 PO; +DULC10SU2 PR; +LIDO1ADH20 TP; +LIDO76.52 TOP; +MORP1SOL5 PO; +SERT-141 PO; +SUCR1TA PO
== END ==
PROVIDERS: ATTEND Nurse Practitioner Family
DX: D64.9 Anemia, unspecified (principal); Z53.8 Procedure and treatment not carried out for other reasons

== ENCOUNTER → 2024-12-09 | Outpatient (REF) | payer MEDICARE, MEDICAID ==
[2024-12-09 18:43] LABS: HEMATOCRIT 32.8 % (36.0-47.0); HEMOGLOBIN 10.9 g/dl (12.0-15.5); MEAN CORPUSCULAR HEMOGLOBIN 31.8 pg (27.0-33.0); MEAN CORPUSCULAR HGB CONC 33.2 g/dl (32.0-36.5); MEAN CORPUSCULAR VOLUME 95.6 fl (80.0-96.0); PLATELET COUNT, AUTOMATED 155 10^3/uL (150-450); RED BLOOD COUNT 3.43 10^6/uL (4.00-5.40); WHITE BLOOD COUNT 5.4 10^3/uL (4.0-10.0)
[2024-12-09 18:58] LABS: CALCIUM LEVEL 8.6 MG/DL (8.3-10.6); CREATININE FOR GFR 2.32 MG/DL (0.55-1.30); GLOMERULAR FILTRATION RATE 21.9 (>39); POTASSIUM SERUM 3.7 MMOL/L (3.5-5.1)
== END ==
PROVIDERS: ATTEND Nurse Practitioner Family
DX: D64.9 Anemia, unspecified (principal)

== ENCOUNTER → 2024-12-13 | Outpatient (REF) | payer MEDICARE, MEDICAID ==
[2024-12-13 08:55] LABS: HEMATOCRIT 32.7 % (36.0-47.0); HEMOGLOBIN 10.4 g/dl (12.0-15.5); MEAN CORPUSCULAR HEMOGLOBIN 31.2 pg (27.0-33.0); MEAN CORPUSCULAR HGB CONC 31.8 g/dl (32.0-36.5); MEAN CORPUSCULAR VOLUME 98.2 fl (80.0-96.0); PLATELET COUNT, AUTOMATED 153 10^3/uL (150-450); RED BLOOD COUNT 3.33 10^6/uL (4.00-5.40); WHITE BLOOD COUNT 6.6 10^3/uL (4.0-10.0)
[2024-12-13 09:23] LABS: CALCIUM LEVEL 8.7 MG/DL (8.3-10.6); CREATININE FOR GFR 5.13 MG/DL (0.55-1.30); GLOMERULAR FILTRATION RATE 8.5 (>39); POTASSIUM SERUM 4.3 MMOL/L (3.5-5.1)
== END ==
PROVIDERS: ATTEND Nurse Practitioner Family
DX: K92.2 Gastrointestinal hemorrhage, unspecified (principal)

== ENCOUNTER → 2025-01-03 | Outpatient (REF) | payer MEDICARE, MEDICAID ==
[~2025-01-03] MED LIST changes: +AMLO-751 PO; -AMLO10TA PO; -GLUC1KIT IM; +GLUC1VIA14 IM
[2025-01-03 09:35] LABS: HEMATOCRIT 32.4 % (36.0-47.0); HEMOGLOBIN 10.5 g/dl (12.0-15.5); MEAN CORPUSCULAR HEMOGLOBIN 31.9 pg (27.0-33.0); MEAN CORPUSCULAR HGB CONC 32.4 g/dl (32.0-36.5); MEAN CORPUSCULAR VOLUME 98.5 fl (80.0-96.0); PLATELET COUNT, AUTOMATED 155 10^3/uL (150-450); RED BLOOD COUNT 3.29 10^6/uL (4.00-5.40); WHITE BLOOD COUNT 8.5 10^3/uL (4.0-10.0)
[2025-01-03 09:48] LABS: INR 0.97; PARTIAL THROMBOPLASTIN TIME 30.3 SECONDS (24.8-34.2); PROTHROMBIN TIME 13.2 SECONDS (12.5-14.5)
[2025-01-03 10:14] LABS: CREATININE FOR GFR 4.85 MG/DL (0.55-1.30); POTASSIUM SERUM 4.5 MMOL/L (3.5-5.1)
== END ==
PROVIDERS: ATTEND Nurse Practitioner Family
DX: Z79.899 Other long term (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 therapy (principal); Z79.01 Long term (current) use of anticoagulants

== ENCOUNTER → 2025-01-07 | Outpatient (REF) | payer MEDICARE, MEDICAID ==
[2025-01-07 07:31] LABS: HEMATOCRIT 34.6 % (36.0-47.0); MEAN CORPUSCULAR HEMOGLOBIN 31.5 pg (27.0-33.0); MEAN CORPUSCULAR HGB CONC 31.8 g/dl (32.0-36.5); MEAN CORPUSCULAR VOLUME 99.1 fl (80.0-96.0); PLATELET COUNT, AUTOMATED 168 10^3/uL (150-450); RED BLOOD COUNT 3.49 10^6/uL (4.00-5.40); WHITE BLOOD COUNT 7.1 10^3/uL (4.0-10.0)
[2025-01-07 07:54] LABS: CALCIUM LEVEL 9.3 MG/DL (8.3-10.6); CREATININE FOR GFR 3.9 MG/DL (0.55-1.30); GLOMERULAR FILTRATION RATE 11.7 (>39); POTASSIUM SERUM 3.9 MMOL/L (3.5-5.1)
== END ==
PROVIDERS: ATTEND Nurse Practitioner Family
DX: D64.9 Anemia, unspecified (principal)